=== PATIENT | male | born 1955 | race African-American/Black ===

== ENCOUNTER 2016-07-13 17:52 | Inpatient (IN) | payer OTHER ==
[2016-07-13 17:59] VITALS: BMI 29.7
[2016-07-13 18:47] LABS: BASOPHIL 0.6 % (0-2.0); EOSINOPHIL 1.2 % (0-4.5); MCH 25.6 pg (25.7-33.7); MCHC 31.6 g/dl (32.0-35.9); MEAN PLT VOLUME 7.9 fl (7.5-11.1); NEUTROPHILS 51.7 % (42.8-82.8); PLATELET COUNT 333 K/MM3 (134-434); RDW 14.9 % (11.9-15.9); WHITE BLOOD COUNT 10.2 K/mm3 (4.0-10.0)
[2016-07-13 19:00] LABS: INR 1.18 (0.82-1.09)
[2016-07-13 19:12] LABS: ALBUMIN 3.5 g/dl (3.4-5.0); ANION GAP 7 (8-16); CALCIUM 9.1 mg/dL (8.5-10.1); CO2 26 mmol/L (21-32); CREATININE 1.7 mg/dL (0.7-1.3); GLUCOSE,RANDOM 242 mg/dL (74-106); SGPT/ALT 25 U/L (12-78)
[2016-07-13 19:15] LABS: ALK PHOS 136 U/L (45-117); BILIRUBIN,TOTAL 0.4 mg/dL (0.2-1.0); TOT PROT 6.5 g/dl (6.4-8.2); TROPONIN I < 0.02 ng/ml (0.00-0.05)
[2016-07-13 19:16] LABS: SGOT/AST 21 U/L (15-37)
[2016-07-13] MEDS ORDERED: OXYCODONE/APAP 5/325MG COMBO TABLET PO ONE (19:29)
[2016-07-13] MEDS ORDERED: NITROGLYCERIN 2% OINTMENT - 1GM PACKET TD ONE ×2 (19:29→19:36)
--- NOTE | 2016-07-13 19:30 | PDOC ---
History of Present Illness - General Chief Complaint: Chest Pain Stated Complaint: CHEST PAIN/SOB Time Seen by Provider: 07/13/16 19:18 History Source: Patient, Significant Other Exam Limitations: No Limitations - History of Present Illness Initial Comments: 07/13/16 20:24 60yo Male patient with hx HTN, Asthma, COPD, DM, Chronic Nerve Damage, CA w/ stents x6 presents to ED c/o chest pain, chest pressure x 2 days. Patient states being SOB, increased weakness, malaise, with 8/10 combination nerve pain and chest pains. He denies fever, n/v/d, back pain, diff breathing, rash, or any other complaints at this time. 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 Elaine who instructed him to come to ED for evaluation. Patient reports taking Tramadol at home with no relief. Presenting Symptoms: Chest Pain, Short of Breath Timing/Duration: reports: getting worse Severity/Quality: reports: mild, pressure Location: reports: substernal, other (Neck Pain) Chest Pain Radiation: reports: no radiation Activities at Onset: reports: exertion Prior Chest Pain/Cardiac Workup: reports: Heart Attack, Other (Stents x 6) Modifying Factors: improves with: other (Dilaudid and Tramadol) Nitro Today/Relief: Yes: provided by ED Aspirin Received prior to arrival (Core Measure): Yes: unknown Past History - Past Medical History Allergies/Adverse Reactions: Allergies Allergy/AdvReac Type Severity Reaction Status Date / Time shellfish derived Allergy Severe Verified 07/13/16 17:59 Tetracyclines Allergy Severe Verified 07/13/16 17:59 Home Medications: Ambulatory Orders Acetaminophen [Tylenol] 650 mg PO DAILY 04/23/16 Albuterol 0.083% Nebulizer Elena [Ventolin 0.083% Nebulizer Soln -] 1 neb NEB QID 04/23/16 Arformoterol Tartrate [Brovana] 15 mcg IH BID 04/23/16 Aspirin [ASA -] 81 mg PO DAILY 04/23/16 Budesonide/Formeterol Fumarate [SYMBICORT 160/4.5mcg -] 1 inh PO BID 04/23/16 Clopidogrel Bisulfate [Plavix -] 75 mg PO DAILY 04/23/16 Diazepam [Valium] 5 mg PO DAILY 04/23/16 Docusate Sodium [Colace -] 100 mg PO DAILY 04/23/16 Finasteride 5 mg PO DAILY 04/23/16 Hydralazine HCl [Apresoline -] 25 mg PO BID 04/23/16 Hydromorphone HCl [Dilaudid] 2 mg PO QID 04/23/16 Isosorbide Mononitrate [Imdur -] 60 mg PO DAILY 04/23/16 Mesalamine [Asacol HD -] 800 mg PO TID 04/23/16 Montelukast Na [Singulair -] 10 mg PO HS 04/23/16 Ondansetron [Zuplenz] 4 mg PO QID 04/23/16 Pantoprazole Sodium [Protonix] 40 mg PO DAILY 04/23/16 Polyethylene Glycol 3350 [Miralax 119 gm Btl -] 17 gm PO BID 04/23/16 Ranitidine [Zantac -] 150 mg PO BID 04/23/16 Silver Sulfadiazine 1% Top Cr [Silvadene -] 1 applic TP DAILY 04/23/16 Sucralfate [Carafate] 10 ml PO QID 04/23/16 Tamsulosin HCl 0.4 mg PO DAILY 04/23/16 Tiotropium Cantril [Spiriva] 1 inh PO DAILY 04/23/16 Verapamil HCl [Verapamil ER] 180 mg PO DAILY 04/23/16 Gabapentin [Neurontin -] 200 mg PO TID capsule 04/25/16 Insulin (Levemir) [Levemir Vial] 10 units SQ AM ml 04/25/16 Insulin Sliding Scale [Novolog Vial Sliding Scale -] 1 vial SQ ACHS units 04/25 Hydromorphone HCl [Dilaudid] 4 mg PO QID PRN #20 tablet MDD 4 04/28/16 Lipase/Protease/Amylase [Stacy Hackett 6,000 Units Capsule] 1 cap PO TIDCM #30 capsule. 04/28/16 Methylnaltrexone Cantril [Relistor] 12 mg SQ DAILY #10 kit 04/28/16 Ondansetron HCl [Zofran] 4 mg PO TIDCM #30 tablet 04/28/16 Mesalamine [Pentasa] 250 mg PO DAILY 07/13/16 Anemia: No Asthma: Yes Cancer: No Cardiac Disorders: Yes (CA, stents x 6, CAD) CVA: No COPD: Yes (trach,) CHF: Yes Dementia: No Diabetes: Yes GI Disorders: Yes (H-Pylori, Diverticulosis, Colon Polyps) Disorders: No HTN: Yes Hypercholesterolemia: Yes Liver Disease: No Seizures: No Thyroid Disease: No - Surgical History Abdominal Surgery: No Appendectomy: No Cardiac Surgery: Yes (STENTS X6) Cholecystectomy: No Lung Surgery: No Neurologic Surgery: Yes (nerve damage from accident - CERVICAL SURGERY) Orthopedic Surgery: Yes (LUMBAR SURGERY, L HAND SOFT TISSUE REPAIR) - Immunization History Immunization Up to Date: Yes - Psycho/Social/Smoking Cessation Hx Anxiety: No Suicidal Ideation: No Smoking History: Never smoked Have you smoked in the past 12 months: No Number of Cigarettes Smoked Daily: 0 Information on smoking cessation initiated: No Hx Alcohol Use: No Drug/Substance Use Hx: No Substance Use Type: None Hx Substance Use Treatment: No Cardiac Specific PMH - Complaint Specific PMHX Angina: Yes Cardiac Arrhythmia: No Cardiac Stent: Yes GERD: No Myocardial Infarction: Yes Pacemaker: No Pulmonary Embolus: No Valvular Heart Disease: No Peripheral Vascular Disease: No Review of Systems - Review of Systems Able to Perform ROS?: Yes Is the patient limited [place] proficient: No Constitutional: No: Chills, Fever Respiratory: Yes: Shortness of Breath, Wheezing. No: Cough, Orthopnea Cardiac (ROS): Yes: Chest Pain, Chest Tightness ABD/GI: No: Diarrhea, Nausea, Vomiting : No: Burning, Dysuria Musculoskeletal: No: Back Pain Integumentary: No: Rash, Sweating Neurological: No: Headache, Numbness, Weakness Hematologic/Lymphatic: No: Easy Bleeding All Other Systems: Reviewed and Negative *Physical Exam - Vital Signs Last Vital Signs Temp Pulse Resp BP Pulse Ox 98.7 F 43 L 18 143/107 100 07/13/16 17:54 07/13/16 18:54 07/13/16 18:54 07/13/16 18:54 07/13/16 18:54 - Physical Exam General Appearance: Yes: Nourished, Appropriately Dressed Neck: positive: Trachea midline, Supple Respiratory/Chest: positive: Wheezing Cardiovascular: positive: Regular Rhythm, Bradycardia Gastrointestinal/Abdominal: positive: Normal Bowel Sounds, Soft Musculoskeletal: positive: Normal Inspection Extremity: positive: Normal Capillary Refill, Normal Inspection, Normal Range of Motion Integumentary: positive: Normal Color, Dry, Warm Neurologic: positive: yeast supervisor II-XII NML intact, Fully Oriented, Normal Mood/Affect , Normal Response ED Treatment Course - LABORATORY CBC & Chemistry Diagram: 07/13/16 18:26 07/13/16 18:20 - ADDITIONAL ORDERS Additional order review: Laboratory Results 07/13/16 07/13/16 07/13/16 18:26 18:20 18:20 INR 1.18 H Sodium 138 Potassium 4.5 Chloride 105 Carbon Dioxide 26 Anion Gap 7 L BUN 24 H D Creatinine 1.7 H D Creat Clearance w eGFR 41.04 Random Glucose 242 H D Calcium 9.1 Total Bilirubin 0.4 D AST 21 ALT 25 Alkaline Phosphatase 136 H D Creatine Kinase 324 H D Creatine Kinase Index 3.3 CK-MB (CK-2) 10.728 H CK-MB (CK-2) Rel Index Cancelled Troponin I < 0.02 B-Natriuretic Peptide 630.83 H Total Protein 6.5 D Albumin 3.5 D 07/13/16 18:26 RBC 3.91 L MCV 81.0 MCHC 31.6 L RDW 14.9 MPV 7.9 Neutrophils % 51.7 Lymphocytes % 31.9 Monocytes % 14.6 H Eosinophils % 1.2 Basophils % 0.6 - Medications Given in the ED: ED Medications Discontinued Medications Generic Name Dose Route Start Last Admin Trade Name Freq PRN Reason Stop Dose Admin Nitroglycerin 1 inch 07/13/16 19:29 07/13/16 19:41 Nitro-Bid 2% Paste - TD 07/13/16 19:30 1 inch ONCE ONE Administration Oxycodone/Acetaminophen 1 combo 07/13/16 19:29 07/13/16 19:41 Percocet 5/325 - PO 07/13/16 19:30 1 combo ONCE ONE Administration Progress Note - Progress Note Progress Note: Spoke with Dr. Rojas PCP who would like patient admitted to hospitalist service- Tele OB for COPD/Chest Pain. *DC/Admit/Observation/Transfer Diagnosis at time of Disposition: Chest pain made worse by breathing, Renal insufficiency, Chronic bronchitis with COPD (chronic obstructive pulmonary disease) - Discharge Dispostion Condition at time of disposition: Stable Admit: Yes
[2016-07-13] MEDS ORDERED: OXYCODONE/APAP 5/325MG COMBO TABLET ONE (19:36)
--- NOTE | 2016-07-13 20:19 | PDOC ---
*Physical Exam - Vital Signs Last Vital Signs Temp Pulse Resp BP Pulse Ox 98.7 F 43 L 18 143/107 100 07/13/16 17:54 07/13/16 18:54 07/13/16 18:54 07/13/16 18:54 07/13/16 18:54 ED Treatment Course - LABORATORY CBC & Chemistry Diagram: 07/14/16 07:10 07/14/16 07:10 - ADDITIONAL ORDERS Additional order review: Laboratory Results 07/13/16 07/13/16 18:26 18:20 INR 1.18 H Sodium 138 Potassium 4.5 Chloride 105 Carbon Dioxide 26 Anion Gap 7 L BUN 24 H D Creatinine 1.7 H D Creat Clearance w eGFR 41.04 Random Glucose 242 H D Calcium 9.1 Total Bilirubin 0.4 D AST 21 ALT 25 Alkaline Phosphatase 136 H D Creatine Kinase 324 H D Creatine Kinase Index 3.3 CK-MB (CK-2) 10.728 H Troponin I < 0.02 B-Natriuretic Peptide 630.83 H Total Protein 6.5 D Albumin 3.5 D 07/13/16 18:26 RBC 3.91 L MCV 81.0 MCHC 31.6 L RDW 14.9 MPV 7.9 Neutrophils % 51.7 Lymphocytes % 31.9 Monocytes % 14.6 H Eosinophils % 1.2 Basophils % 0.6 - Medications Given in the ED: ED Medications Discontinued Medications Generic Name Dose Route Start Last Admin Trade Name Freq PRN Reason Stop Dose Admin Nitroglycerin 1 inch 07/13/16 19:29 07/13/16 19:41 Nitro-Bid 2% Paste - TD 07/13/16 19:30 1 inch ONCE ONE Administration Oxycodone/Acetaminophen 1 combo 07/13/16 19:29 07/13/16 19:41 Percocet 5/325 - PO 07/13/16 19:30 1 combo ONCE ONE Administration Medical Decision Making - Medical Decision Making 07/13/16 20:19 agree with care from ALVA Sofia *DC/Admit/Observation/Transfer Diagnosis at time of Disposition: Chest pain made worse by breathing, Renal insufficiency, Chronic bronchitis with COPD (chronic obstructive pulmonary disease) - Discharge Dispostion Condition at time of disposition: Stable
[2016-07-13] MEDS ORDERED: ALBUTEROL SO4 2.5/IPRATROPIUM 0.5 INH SOL 3 ML VIAL.NEB. NEB ONE ×2 (20:37→21:02)
[2016-07-13] MEDS ORDERED: methylPREDNISolone NA SUCC 125 MG/2 ML VIAL IVPB ONE (20:38)
[2016-07-13] MEDS ORDERED: methylPREDNISolone NA SUCC 125 MG/2 ML VIAL ONE (21:01)
[2016-07-13] MEDS ORDERED: ASPIRIN 81 MG CHEWABLE TABLETS PO ONE (21:04)
[2016-07-13] MEDS ORDERED: ASPIRIN 81 MG CHEWABLE TABLETS ONE (21:09)
[2016-07-14] MEDS ORDERED: HYDROmorphone HCL CARPU-JECT 2 MG/1 ML DISP.SYRIN IVPUSH ONE (00:03)
[2016-07-14] MEDS ORDERED: ALBUTEROL SO4 0.083% IH SOL 2.5 MG/3 ML VIAL.NEB. NEB PRN (00:04)
[2016-07-14] MEDS: SODIUM CHLORIDE 1,000 ML IV SCH ×2 (00:21→23:15)
--- NOTE | 2016-07-14 00:25 | HP ---
CHIEF COMPLAINT: Chest pain/pressure and SOB PCP: Lisette HISTORY OF PRESENT ILLNESS: This is a 60 year old male with a past medical history of asthma, COPD, DM, HTN , HLD, [place] s/p sstent x6, CHF, diverticulosis, pancreatitis, cervical nerve damage who presents to the ED with a 2 day h/o chest pain and pressure which was helped by imdur (he states he takes it PRN) but then today felt a generalized weakness come over his entire body with difficulty walking around 12 -1pm which prompted him to come to the ED. Pt denies any abdominal complaints. Pt reports recent course of augmentin 875 for acute bronchitis. He also states that he increased his lasix to 80mg daily last week due to leg edema which has since resolved and has since resumed 40mg QD ER course was notable for: (1) BNP 630.83 (2) troponin elevated (3) BUN/Cr elevated (4) CP improved with NTG (5) HR 40s on monitor Recent Travel: pt denies PAST MEDICAL HISTORY: asthma COPD DM HTN HLD MN s/p sstent x6 CHF diverticulosis pancreatitis H. pylori colon polyps PAST SURGICAL HISTORY: cervical spine surgery due to 3 herniated discs s/p accidental injury (a ceiling fell on him) with resulting nerve injury and chronic pain lumbar sx L hand soft tissue repair Social History: Smoking: pt denies Alcohol: pt denies Drugs: pt denies Family History: mother age 59, CHF, DM, in her sleep father young, mesothelioma brother with prostate CA sister s/p breast CA Allergies shellfish derived Allergy (Severe, Verified 07/13/16 17:59) Tetracyclines Allergy (Severe, Verified 07/13/16 17:59) HOME MEDICATIONS: 3 Medication Instructions Recorded Albuterol 0.083% Nebulizer Elena 1 neb NEB QID 04/23/16 [Ventolin 0.083% Nebulizer Soln -] Arformoterol Tartrate [Brovana] 15 mcg IH BID 04/23/16 Aspirin [ASA -] 81 mg PO DAILY 04/23/16 Budesonide/Klclr963.83terol Fumarate 1 inh PO BID 04/23/16 [SYMBICORT 160/4.5mcg -] Clopidogrel Bisulfate [Plavix -] 75 mg PO DAILY 04/23/16 Diazepam [Valium] 5 mg PO DAILY 04/23/16 Docusate Sodium [Colace -] 100 mg PO DAILY 04/23/16 Finasteride 5 mg PO DAILY 04/23/16 Isosorbide Mononitrate [Imdur -] 60 mg PO DAILY 04/23/16 Montelukast Na [Singulair -] 10 mg PO HS 04/23/16 Ondansetron [Zuplenz] 4 mg PO QID 04/23/16 Pantoprazole Sodium [Protonix] 40 mg PO DAILY 04/23/16 Polyethylene Glycol 3350 [Miralax 17 gm PO BID 04/23/16 119 gm Btl -] Tamsulosin HCl 0.4 mg PO DAILY 04/23/16 Tiotropium Rough And Ready [Spiriva] 1 inh PO DAILY 04/23/16 Verapamil HCl [Verapamil ER] 120mg QAM, 300 mg QHS PO DAILY 04/23/16 Insulin-humalog pump 1 vial SQ ACHS units 04/25/16 Hydromorphone HCl [Dilaudid] 4 mg PO QID PRN #20 tablet MDD 4 04/28/16 Lipase/Protease/Amylase [Creon Dr 1 cap PO TIDCM #30 capsule.dr 04/28/16 6,000 Units Capsule] Ondansetron HCl [Zofran] 4 mg PO TIDCM #30 tablet 04/28/16 Mesalamine [Pentasa] 500 mg PO bid 07/13/16 crestor 10mg po HS lasix 40mg QD theophylline 300mg qd gabapentin 600mg BID nucynta er 150QD tramadol PRN REVIEW OF SYSTEMS CONSTITUTIONAL: Present: generalized weakness, malaise Absent: fever, chills, diaphoresis, loss of appetite, weight change HEENT: Absent: rhinorrhea, nasal congestion, throat pain, throat swelling, difficulty swallowing, mouth swelling, ear pain, eye pain, visual changes CARDIOVASCULAR: Absent: syncope, palpitations, irregular heart rate, lightheadedness, peripheral edema RESPIRATORY: Present: chest pain, shortness of breath, wheezing Absent: cough, dyspnea with exertion, orthopnea, stridor, hemoptysis GASTROINTESTINAL: Absent: abdominal pain, abdominal distension, nausea, vomiting, diarrhea, constipation, melena, hematochezia GENITOURINARY: Absent: dysuria, frequency, urgency, hesitancy, hematuria, flank pain, genital pain MUSCULOSKELETAL: Present: back pain, neck pain Absent: myalgia, arthralgia, joint swelling SKIN: Absent: rash, itching, pallor HEMATOLOGIC/IMMUNOLOGIC: Absent: easy bleeding, easy bruising, lymphadenopathy, frequent infections ENDOCRINE: Absent: unexplained weight gain, unexplained weight loss, heat intolerance, cold intolerance NEUROLOGIC: Absent: headache, focal weakness or paresthesias, dizziness, unsteady gait, seizure, mental status changes, bladder or bowel incontinence PSYCHIATRIC: Absent: anxiety, depression, suicidal or homicidal ideation, hallucinations. PHYSICAL EXAMINATION Vital Signs - 24 hr 3 07/13/16 07/13/16 07/13/16 17:54 18:54 21:57 Temperature 98.7 F Pulse Rate 46 L Pulse Rate [ 43 L 45 L Apical] Respiratory 18 18 18 Rate Blood Pressure 113/61 Blood Pressure 143/107 124/65 [Left Arm] O2 Sat by Pulse 100 100 100 Oximetry (%) GENERAL: Awake, alert, and fully oriented, in no acute distress. HEAD: Normal with no signs of trauma. EYES: Pupils equal, round and reactive to light, extraocular movements intact, sclera anicteric, conjunctiva clear. No lid lag. EARS, NOSE, THROAT: Ears normal, nares patent, oropharynx clear without exudates. Moist mucous membranes. NECK: Normal range of motion, supple without lymphadenopathy, JVD, or masses. LUNGS: Breath sounds equal, clear to auscultation bilaterally. No wheezes, and no crackles. No accessory muscle use. HEART: Regular rate and rhythm, normal S1 and S2 without murmur, rub or gallop. ABDOMEN: Soft, nontender, not distended, normoactive bowel sounds, no guarding, no rebound, no masses. No hepatomegaly or splenomegaly. MUSCULOSKELETAL: Normal range of motion at all joints. No bony deformities or tenderness. No CVA tenderness. UPPER EXTREMITIES: 2+ pulses, warm, well-perfused. No cyanosis. No clubbing. Cap refill <2 seconds. No peripheral edema. LOWER EXTREMITIES: 2+ pulses, warm, well-perfused. No calf tenderness. No peripheral edema. NEUROLOGICAL: Cranial nerves II-XII intact. Normal speech. Normal gait. PSYCHIATRIC: Cooperative. Good eye contact. Appropriate mood and affect. SKIN: Warm, dry, normal turgor, no rashes or lesions noted. Laboratory Results - last 24 hr 3 07/13/16 07/13/16 07/13/16 18:20 18:20 18:26 WBC 10.2 H D RBC 3.91 L Hgb 10.0 L Hct 31.7 L MCV 81.0 MCHC 31.6 L RDW 14.9 Plt Count 333 MPV 7.9 Neutrophils % 51.7 Lymphocytes % 31.9 Monocytes % 14.6 H Eosinophils % 1.2 Basophils % 0.6 INR 1.18 H Sodium 138 Potassium 4.5 Chloride 105 Carbon Dioxide 26 Anion Gap 7 L BUN 24 H D Creatinine 1.7 H D Creat Clearance w eGFR 41.04 Random Glucose 242 H D Calcium 9.1 Total Bilirubin 0.4 D AST 21 ALT 25 Alkaline Phosphatase 136 H D Creatine Kinase 324 H D Creatine Kinase Index 3.3 CK-MB (CK-2) 10.728 H CK-MB (CK-2) Rel Index Cancelled Troponin I < 0.02 B-Natriuretic Peptide 630.83 H Total Protein 6.5 D Albumin 3.5 D CXR: increased vascularization, congestion noted, hazy at B/L bases, official read pending. ECG: rate 44, QTC 516, junctional bradycardia ASSESSMENT/PLAN: 60yM with PMH asthma, COPD, DM, HTN, HLD, [place] s/p sstent x6, CHF, diverticulosis , pancreatitis, cervical nerve damage who presents to the ED with a 2 day h/o chest pain and pressure. He is being admitted for further evaluation of CHF and COPD exacerbations as well as LOVE. COPD exac - improved with nebs and solumedrol. Cont solumedrol 40mg TID, taper as tolerated - defer ABT at this time as WBC only 10.2 and no acute infiltrate noted and afebrile - cont home nebulizers/inhalers/theophylline, check level in AM chest pain/CHF exacerbation - troponin neg x1, trend x 2 more - defer diuresis at this time as i suspect pt is intravascularly depleted given elevated BUN/Cr - reassess in am, restart lasix if indicated - hold home ramipril due to kidney function for now - cont home imdur, pt states he is not on hydralazine - cardiology consult bradycardia - hold verapamil, if no improvement in HR, will need PPM LOVE - BUN and Cr significantly above baseline - trial of gentle IV hydration 50cc/hr x 1 liter - avoid nephrotoxic agents, hold ramipril DM - on insulin pump. OK to continue same for now. FSBS TIDAC/HS with bolus coverage as per home regimen. HTN - hold verapamil due to HR, monitor BP, start alternative agent if SBP<140 HLD - cont home crestor chronic pain - cont home nucynta and dilaudid with bowel regimen. Pt previously on relistor for opioid induced constipation but did not tolerate same. DVT PPX - heparin 5000u TID FEN - NS @50cc/hr - BUN/Cr elevated but lytes ok, repeat in am - diabetic/low sodium diet Dispo: pt currently requires inpatient care Visit type - Emergency Visit Emergency Visit: Yes ED Registration Date: 07/13/16 Care time: The patient presented to the Emergency Department on the above date and was hospitalized for further evaluation of their emergent condition. - New Patient This patient is new to me today: Yes Date on this admission: 07/14/16 - Critical Care Critical Care patient: No
[2016-07-14 00:54] LABS: TROPONIN I < 0.02 ng/ml (0.00-0.05)
[2016-07-14] MEDS ORDERED: SENNOSIDES/DOCUSATE COMBO (SENNA PLUS) TABLET (UD) PO PRN (01:23)
[2016-07-14] MEDS ORDERED: methylPREDNISolone NA SUCC 40 MG/1 ML VIAL ONE (02:15)
[2016-07-14] MEDS: methylPREDNISolone NA SUCC 40 MG/1 ML VIAL IVPB SCH ×2 (02:54→09:34)
[2016-07-14] MEDS ORDERED: HYDROmorphone HCL 2 MG TABLET ONE (02:58)
[2016-07-14] MEDS: HYDROmorphone HCL 2 MG TABLET PO PRN (03:00)
[2016-07-14] MEDS: HEPARIN NA (PORCINE) 5,000 UNITS/ML 1ML VIAL SQ SCH ×3 (06:03→21:53)
[2016-07-14 07:38] LABS: BASOPHIL 0.3 % (0-2.0); EOSINOPHIL 0.1 % (0-4.5); MCH 26.1 pg (25.7-33.7); MCHC 32.3 g/dl (32.0-35.9); MEAN CELL VOLUME 80.7 fl (80-96); NEUTROPHILS 81.5 % (42.8-82.8); PLATELET COUNT 327 K/MM3 (134-434); RDW 14.3 % (11.9-15.9); WHITE BLOOD COUNT 7.2 K/mm3 (4.0-10.0)
[2016-07-14] MEDS: INSULIN SLIDING SCALE (NOVOLOG) 1 VIAL SQ SCH ×4 (08:01→21:53)
[2016-07-14 08:08] LABS: ALBUMIN 3.6 g/dl (3.4-5.0); ANION GAP 14 (8-16); CO2 23 mmol/L (21-32); MAGNESIUM 2.4 mg/dL (1.8-2.4); PHOSPHOROUS 3.6 mg/dL (2.5-4.9); SGOT/AST 13 U/L (15-37); SGPT/ALT 24 U/L (12-78)
[2016-07-14 08:13] LABS: ALK PHOS 152 U/L (45-117); BILIRUBIN,TOTAL 0.5 mg/dL (0.2-1.0); CREATININE 1.9 mg/dL (0.7-1.3)
[2016-07-14 08:29] LABS: TROPONIN I < 0.02 ng/ml (0.00-0.05)
[2016-07-14 08:33] LABS: GLUCOSE,RANDOM 383 mg/dL (74-106)
--- NOTE | 2016-07-14 08:43 | CONSULT ---
Consult Consult Specialty:: Cardiology Referred by:: Hospitalist Reason for Consultation:: Chest pain - History of Present Illness Chief Complaint: Chest pain History of Present Illness: 60 year old man with a history of HTN, HLD, DM, CAD s/p TX followed by PCI with stents 2002 and again 2016, Chronic Diastolic HF, Pulmonary HTN, GRACIE, COPD/ Asthma s/p permanent tracheostomy, on chronic steroid therapy with multiple previous admissions for acute exacerbations of asthma and right sided CHF. Pt. was in [facility] but is back home now. He has been doing well but started again having chest pressure worse last night thus he came to the ER. Seen and examined in the ER in [facility]. He describes the pain as pressure like, substernal, non-radiating. Denies sob, LE edema, pnd, orthopnea. no lightheadedness, dizziness, syncope, or near syncope. He states he took his verapamil just before coming to the ER as well as his Imdur. 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 mild CHF in the past.), HTN, TX, Pulmonary Hypertension Pulmonary: Yes: Asthma, Sleep Apnea Gastrointestinal: Yes: Constipation, Other (FECAL INCONTINENCE SECONDARY TO OVERFLOW followed by Dr. Abdoulaye Wu, IPMN, PANCREATITIS . HAD EPISODE OF ISCHEMIC COLITIS LAST ADMISSION) Renal/: Yes: BPH Psych: Yes: Depression Musculoskeletal: Yes: Chronic low back pain, Other (CHRONIC NECK PAIN) Endocrine: Yes: Diabetes Mellitus - Past Surgical History Past Surgical History: Yes: Breast Biopsy, Colonoscopy, Laminectomy - Alcohol/Substance Use Hx Alcohol Use: No History of Substance Use: reports: Prescription (opiates for chronic pain post cervical spine surgery. 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 History of Recent Travel: No Home Medications - Allergies Allergies/Adverse Reactions: Allergies Allergy/AdvReac Type Severity Reaction Status Date / Time shellfish derived Allergy Severe Verified 07/13/16 17:59 Tetracyclines Allergy Severe Verified 07/13/16 17:59 - Home Medications Home Medications: Ambulatory Orders Acetaminophen [Tylenol] 650 mg PO DAILY 04/23/16 Albuterol 0.083% Nebulizer Elena [Ventolin 0.083% Nebulizer Soln -] 1 neb NEB QID 04/23/16 Arformoterol Tartrate [Brovana] 15 mcg IH BID 04/23/16 Aspirin [ASA -] 81 mg PO DAILY 04/23/16 Budesonide/Formeterol Fumarate [SYMBICORT 160/4.5mcg -] 1 inh PO BID 04/23/16 Clopidogrel Bisulfate [Plavix -] 75 mg PO DAILY 04/23/16 Diazepam [Valium] 5 mg PO DAILY 04/23/16 Docusate Sodium [Colace -] 100 mg PO DAILY 04/23/16 Finasteride 5 mg PO DAILY 04/23/16 Hydralazine HCl [Apresoline -] 25 mg PO BID 04/23/16 Hydromorphone HCl [Dilaudid] 2 mg PO QID 04/23/16 Isosorbide Mononitrate [Imdur -] 60 mg PO DAILY 04/23/16 Mesalamine [Asacol HD -] 800 mg PO TID 04/23/16 Montelukast Na [Singulair -] 10 mg PO HS 04/23/16 Ondansetron [Zuplenz] 4 mg PO QID 04/23/16 Pantoprazole Sodium [Protonix] 40 mg PO DAILY 04/23/16 Polyethylene Glycol 3350 [Miralax 119 gm Btl -] 17 gm PO BID 04/23/16 Ranitidine [Zantac -] 150 mg PO BID 04/23/16 Silver Sulfadiazine 1% Top Cr [Silvadene -] 1 applic TP DAILY 04/23/16 Sucralfate [Carafate] 10 ml PO QID 04/23/16 Tamsulosin HCl 0.4 mg PO DAILY 04/23/16 Tiotropium [place] [Spiriva] 1 inh PO DAILY 04/23/16 Verapamil HCl [Verapamil ER] 180 mg PO DAILY 04/23/16 Gabapentin [Neurontin -] 200 mg PO TID capsule 04/25/16 Insulin (Levemir) [Levemir Vial] 10 units SQ AM ml 04/25/16 Insulin Sliding Scale [Novolog Vial Sliding Scale -] 1 vial SQ ACHS units 04/25 Hydromorphone HCl [Dilaudid] 4 mg PO QID PRN #20 tablet MDD 4 04/28/16 Lipase/Protease/Amylase [Stacy Hackett 6,000 Units Capsule] 1 cap PO TIDCM #30 capsule. 04/28/16 Methylnaltrexone [place] [Relistor] 12 mg SQ DAILY #10 kit 04/28/16 Ondansetron HCl [Zofran] 4 mg PO TIDCM #30 tablet 04/28/16 Mesalamine [Pentasa] 250 mg PO DAILY 07/13/16 Family Disease History - Family Disease History Family Disease History: Diabetes: Mother, CA: Father (mesothelioma), Respiratory : Brother (bronchial asthma) Review of Systems - Review of Systems Constitutional: denies: No Symptoms, Chills, Diaphoresis, Fever, Lethargy, Loss of Appetite, Malaise, Night Sweats, Unintentional Wgt. Loss, Weakness, Other Eyes: denies: No Symptoms, Blind Spots, Blurred Vision, Double Vision, Eye Pain , Floaters, Photophobia, Recent Change in Vision, Other HENT: denies: No Symptoms, Difficult Swallowing, Ear Discharge, Ear Pain, Epistaxis, Gingival Bleeding, Hearing Loss, Mouth Swelling, Nasal Congestion, Ocular Prosthesis, Throat Pain, Toothache, Ringing in Ears, Other Neck: denies: No Symptoms, Decreased ROM, Lumps, Pain on Movement, Stiffness, Swollen Glands, Tenderness, Other Cardiovascular: reports: Chest Pain, Shortness of Breath. denies: No Symptoms, Edema, Palpitations, Other Respiratory: reports: SOB. denies: No Symptoms, Cough, Exercise Intolerance, Hemoptysis, Orthopnea, PND, Snoring, SOB on Exertion, Wheezing, Other Gastrointestinal: denies: No Symptoms, Abdominal Pain, Bloating, Constipation, Diarrhea, Dysphagia, Indigestion, Melena, Nausea, Rectal Bleeding, Vomiting, Vomiting Blood, Other Genitourinary: denies: No Symptoms, Burning, Discharge, Dysuria, Flank Pain, Frequency, Hematuria, Incontinence, Lesions, Menses, Pain, Testicular Mass, Testicular Pain, Testicular Swelling, Urgency, Vaginal Bleeding, Other Breasts: denies: No Symptoms Reported, See HPI, Breast Implants, Discharge from Nipple, Lumps, Pain, Skin Changes, Other Musculoskeletal: reports: Back Pain, Extremity Pain, Joint Pain, Muscle Weakness. denies: No Symptoms, Crepitus, Decreased ROM, Joint Swelling, Muscle Pain, Muscle Cramps, Other Integumentary: denies: No Symptoms, Blister, Bruising, Change in Color, Eczema, Erythema, Incision, Lesions, Lump, Pallor, Pruritis, Rash, Wound, Other Endocrine: denies: No Symptoms, Excessive Sweating, Flushing, Increased Hunger, Increased Thirst, Intolerance to Cold, Intolerance to Heat, Unexplained Weight Gain, Unexplained Weight Loss, Other Hematology/Lymphatic: denies: No Symptoms, Easily Bruised, Excessive Bleeding, Swollen Glands, Other Psychiatric: denies: No Symptoms, Altered Sleep Pattern, Anxiety, Depression, Hallucinations, Panic, Paranoia, Suicidal, Other - Risk Factors Known Risk Factors: Yes: Diabetes Mellitus, Hypercholesterolemia, Hypertension, Prior TX /Emb Stroke Vital Signs: Vital Signs Temperature 98.7 F 07/13/16 17:54 Pulse Rate 83 07/14/16 08:31 Respiratory Rate 18 07/14/16 08:31 Blood Pressure 128/78 07/14/16 08:31 O2 Sat by Pulse Oximetry (%) 99 07/14/16 08:31 Constitutional: Yes: Well Nourished, No Distress, Calm Eyes: Yes: WNL, Conjunctiva Clear, EOM Intact, PERRL HENT: Yes: WNL, Atraumatic, Normocephalic Neck: Yes: WNL, Supple, Trachea Midline Respiratory: Yes: WNL, Regular, CTA Bilaterally. No: Rales, Rhonchi, Wheezes Gastrointestinal: Yes: WNL, Normal Bowel Sounds, Soft. No: Distention, Tenderness Renal/: Yes: WNL Cardiovascular: Yes: Regular Rate and Rhythm. No: Bradycardia, Tachycardia, Pulse Irregular, Gallop, Rub, Varicosities JVD: No Carotid Bruit: No PMI: Non-Displaced Heart Sounds: Yes: S1, S2. No: Split S2, S3, S4, Clicks, Gallop, Rub, Bruit Murmur: No: Systolic Murmur, Diastolic Murmur Musculoskeletal: Yes: WNL Extremities: Yes: WNL Edema: No Peripheral Pulses WNL: Yes Peripheral Pulses: 2+ Left Doralis Pedis, 2+ Right Dorsalis Pedis Integumentary: Yes: WNL Neurological: Yes: WNL, Alert, Oriented, Cran Nerves II-XII Intact ...Motor Strength: WNL Psychiatric: Yes: WNL, Alert, Oriented - Other Data Labs, Other Data: CBC, BMP 07/14/16 07:10 07/14/16 07:10 INR, PTT INR 1.18 (0.82-1.09) H 07/13/16 18:26 Troponin, BNP 07/14/16 07/14/16 00:15 07:10 Troponin I < 0.02 < 0.02 Troponin, BNP 07/14/16 07/14/16 00:15 07:10 Troponin I < 0.02 < 0.02 ekg-nsr, no sig ST abnl Echo: Report Reviewed Prior Cardiac Procedures: Cardiac Catheterization, PTCA with Stent Imaging - Results Chest X-ray: Report Reviewed, Image Reviewed EKG: Report Reviewed, Image Reviewed Other: Report Reviewed, Image Reviewed Problem List - Problems (1) ASHD (arteriosclerotic heart disease) Code(s): I25.10 - ATHSCL HEART DISEASE OF [place] CORONARY ARTERY W/O ANG PCTRS (2) Acute on chronic diastolic (congestive) heart failure Code(s): I50.33 - ACUTE ON CHRONIC DIASTOLIC (CONGESTIVE) HEART FAILURE (3) GRACIE (obstructive sleep apnea) Code(s): G47.33 - OBSTRUCTIVE SLEEP APNEA (ADULT) (PEDIATRIC) (4) Pulmonary hypertension Code(s): I27.2 - OTHER SECONDARY PULMONARY HYPERTENSION (5) Renal insufficiency Code(s): N28.9 - DISORDER OF KIDNEY AND URETER, UNSPECIFIED Assessment/Plan 60 year old man with a history of HTN, HLD, DM, CAD s/p TX followed by PCI with stents 2002 and again 2015, Chronic Diastolic HF, Pulmonary HTN, GRACIE, COPD/ Asthma s/p permanent tracheostomy, on chronic steroid therapy with multiple previous admissions for acute exacerbations of asthma and right sided CHF. Pt. was in [facility] but is back home now. He has been doing well but started again having chest pressure worse last night thus he came to the ER. Seen and examined in the ER in [facility]. He describes the pain as pressure like, substernal, non-radiating. Denies sob, LE edema, pnd, orthopnea. no lightheadedness, dizziness, syncope, or near syncope. He states he took his verapamil just before coming to the ER as well as his Imdur. Chest pain-with known h/o CAD and multiple prior stents including this past year -cardiac enzymes wnl thus far -no ischemia on ekg -no arrhythmias overnight on tele -need to follow up most recent work up done with Dr. Elaine -cont home medical regimen for now -ok to dc tele Bradycardia -likely sinus bradycardia after taking his home verapamil just prior to coming to the ER -no events on tele overnight -plan for outpatient holter monitor Chronic diastolic CHF- -currently euvolemic -cont home medical regimen HTN-adequately controlled -cont home medical regimen
[2016-07-14] MEDS: ONDANSETRON 4 MG TABLET PO SCH ×3 (09:03→17:24)
[2016-07-14] MEDS: TAMSULOSIN HCL 0.4 MG CAP.ER.24H (FP) PO SCH (09:03)
[2016-07-14] MEDS: LIPASE/PROTEASE/AMYLASE 6,000 UNIT CAPSULE PO SCH ×3 (09:03→17:24)
[2016-07-14] MEDS: ARFORMOTEROL TARTRATE 15 MCG/2 ML VIAL NEB SCH ×2 (09:34→22:41)
[2016-07-14] MEDS: ASPIRIN 81 MG CHEWABLE TABLETS PO SCH (09:34)
[2016-07-14] MEDS: FINASTERIDE 5 MG TABLET (FP) PO SCH (09:34)
[2016-07-14] MEDS: ISOSORBIDE MONONITRATE 60 MG TAB.SR.24H (FP) PO SCH (09:34)
[2016-07-14] MEDS: CLOPIDOGREL BISULFATE 75 MG TABLET (FP) PO SCH (09:34)
[2016-07-14] MEDS: GABAPENTIN 300 MG CAPSULE (FP) PO SCH ×2 (09:34→21:52)
[2016-07-14] MEDS: PANTOPRAZOLE 40 MG TABLET (FP) PO SCH (09:34)
[2016-07-14] MEDS: POLYETHYLENE GLYCOL 3350 119 GM BTL PO SCH ×2 (09:46→21:59)
--- NOTE | 2016-07-14 09:50 | EKG ---
Test Reason : Blood Pressure : / mmHG Vent. Rate : 044 BPM Atrial Rate : 045 BPM P-R Int : 000 ms QRS Dur : 094 ms QT Int : 604 ms P-R-T Axes : 000 047 052 degrees QTc Int : 516 ms JUNCTIONAL BRADYCARDIA PROLONGED QT ABNORMAL ECG WHEN COMPARED WITH ECG OF 23-APR-2016 17:56, JUNCTIONAL RHYTHM HAS REPLACED SINUS RHYTHM VENT. RATE HAS DECREASED BY 44 BPM Confirmed by VICTOR HUGO SPARKS MD ([id number]) on 07/14/2016 9:50:22 AM Referred By: Overread By: VICTOR HUGO SPARKS MD
--- NOTE | 2016-07-14 09:56 | EKG ---
Test Reason : Blood Pressure : / mmHG Vent. Rate : 066 BPM Atrial Rate : 066 BPM P-R Int : 180 ms QRS Dur : 094 ms QT Int : 446 ms P-R-T Axes : 013 014 047 degrees QTc Int : 467 ms NORMAL SINUS RHYTHM NORMAL ECG WHEN COMPARED WITH ECG OF 13-JUL-2016 17:56, SINUS RHYTHM HAS REPLACED JUNCTIONAL RHYTHM VENT. RATE HAS INCREASED BY 22 BPM Confirmed by VICTOR HUGO SPARKS MD ([id number]) on 07/14/2016 9:55:35 AM Referred By: Overread By: VICTOR HUGO SPARKS MD
[2016-07-14] MEDS ORDERED: VERAPAMIL HCL 120 MG E.R. TABLET PO SCH (10:00)
[2016-07-14] MEDS ORDERED: DOCUSATE SODIUM 100 MG CAPSULE (FP) PO SCH (10:00)
[2016-07-14] MEDS ORDERED: MESALAMINE 800 MG TABLET.DR PO SCH (10:00)
[2016-07-14] MEDS ORDERED: TAPENTADOL HCL 150 MG PO SCH (10:00)
[2016-07-14] MEDS: BUDESONIDE/FORMETEROL FUMARATE 160/4.5 mcg INHALER IH SCH ×2 (10:28→22:37)
[2016-07-14] MEDS: THEOPHYLLINE ANHYDROUS 100 MG CAP.ER.24H PO SCH (10:29)
[2016-07-14] MEDS: ACLIDINIUM BROMIDE 400 MCG/INH AERO.POWD IH SCH ×2 (10:29→22:37)
[2016-07-14] MEDS: TAPENTADOL HCL 50 MG TAB.ER.12H PO SCH (10:29)
[2016-07-14] MEDS: diazePAM 5 MG TABLET PO PRN (11:35)
[2016-07-14] MEDS ORDERED: diazePAM 5 MG TABLET ONE (11:41)
[2016-07-14] MEDS ORDERED: PT OWN MED DRAWER 7, Y5N ONE ×2 (13:48→17:23)
--- NOTE | 2016-07-14 13:50 | CONSULT ---
Consult Consult Specialty:: Pulmonary Reason for Consultation:: Bronchial Asthma - History of Present Illness Chief Complaint: weakness and chest pressure History of Present Illness: 60 year old male with ASHD-H/O M.I. and stents-developed chest pressure and weakness. He had recently taken Verapamil and Imdur. No palpitations or syncope. He came to the ER where he was found to be bradycardic and was admitted. Recently his obstructive airway disease has been stable and he has been off Prednisone for several months. PMH: Chronic Pancreatitis-in hospital in 04/2015-followed by Dr. Wu Bronchial asthma-steroid dependent. Obstructive Sleep Apnea- stable on trach that he keeps open during sleep. Tracheostomy-done about 30 years ago to tx [facility]. Pt had a trach. 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 Gustafson) Obesity S/P Extensive Spinal Surgery several years ago-pt recently completed in-pt rehab. Opioid dependence- pt maintained on large doses of analgesics because of severe pain related to his spinal surgery. Pt's pain medications are prescribed by his orthopedists: Drs. 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 mild CHF in the past.), HTN, HI, Pulmonary Hypertension Pulmonary: Yes: Asthma, Sleep Apnea Gastrointestinal: Yes: Constipation, Other (FECAL INCONTINENCE SECONDARY TO OVERFLOW followed by Dr. Abdoulaye Wu, IPMN, PANCREATITIS . HAD EPISODE OF ISCHEMIC COLITIS LAST ADMISSION) Renal/: Yes: BPH Psych: Yes: Depression Musculoskeletal: Yes: Chronic low back pain, Other (CHRONIC NECK PAIN) Endocrine: Yes: Diabetes Mellitus - Past Surgical History Past Surgical History: Yes: Breast Biopsy, Colonoscopy, Laminectomy - Alcohol/Substance Use Hx Alcohol Use: No History of Substance Use: reports: Prescription (opiates for chronic pain post cervical spine surgery. 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 History of Recent Travel: No Home Medications - Allergies Allergies/Adverse Reactions: Allergies Allergy/AdvReac Type Severity Reaction Status Date / Time shellfish derived Allergy Severe Verified 07/13/16 17:59 Tetracyclines Allergy Severe Verified 07/13/16 17:59 - Home Medications Home Medications: Ambulatory Orders Acetaminophen [Tylenol] 650 mg PO DAILY 04/23/16 Albuterol 0.083% Nebulizer Elena [Ventolin 0.083% Nebulizer Soln -] 1 neb NEB QID 04/23/16 Arformoterol Tartrate [Brovana] 15 mcg IH BID 04/23/16 Aspirin [ASA -] 81 mg PO DAILY 04/23/16 Budesonide/Formeterol Fumarate [SYMBICORT 160/4.5mcg -] 1 inh PO BID 04/23/16 Clopidogrel Bisulfate [Plavix -] 75 mg PO DAILY 04/23/16 Diazepam [Valium] 5 mg PO DAILY 04/23/16 Docusate Sodium [Colace -] 100 mg PO DAILY 04/23/16 Finasteride 5 mg PO DAILY 04/23/16 Hydralazine HCl [Apresoline -] 25 mg PO BID 04/23/16 Hydromorphone HCl [Dilaudid] 2 mg PO QID 04/23/16 Isosorbide Mononitrate [Imdur -] 60 mg PO DAILY 04/23/16 Mesalamine [Asacol HD -] 800 mg PO TID 04/23/16 Montelukast Na [Singulair -] 10 mg PO HS 04/23/16 Ondansetron [Zuplenz] 4 mg PO QID 04/23/16 Pantoprazole Sodium [Protonix] 40 mg PO DAILY 04/23/16 Polyethylene Glycol 3350 [Miralax 119 gm Btl -] 17 gm PO BID 04/23/16 Ranitidine [Zantac -] 150 mg PO BID 04/23/16 Silver Sulfadiazine 1% Top Cr [Silvadene -] 1 applic TP DAILY 04/23/16 Sucralfate [Carafate] 10 ml PO QID 04/23/16 Tamsulosin HCl 0.4 mg PO DAILY 04/23/16 Tiotropium [place] [Spiriva] 1 inh PO DAILY 04/23/16 Verapamil HCl [Verapamil ER] 180 mg PO DAILY 04/23/16 Gabapentin [Neurontin -] 200 mg PO TID capsule 04/25/16 Insulin (Levemir) [Levemir Vial] 10 units SQ AM ml 04/25/16 Insulin Sliding Scale [Novolog Vial Sliding Scale -] 1 vial SQ ACHS units 04/25 Hydromorphone HCl [Dilaudid] 4 mg PO QID PRN #20 tablet MDD 4 04/28/16 Lipase/Protease/Amylase [Stacy Hackett 6,000 Units Capsule] 1 cap PO TIDCM #30 capsule. 04/28/16 Methylnaltrexone [place] [Relistor] 12 mg SQ DAILY #10 kit 04/28/16 Ondansetron HCl [Zofran] 4 mg PO TIDCM #30 tablet 04/28/16 Mesalamine [Pentasa] 250 mg PO DAILY 07/13/16 Family Disease History - Family Disease History Family Disease History: Diabetes: Mother, CA: Father (mesothelioma), Respiratory : Brother (bronchial asthma) Review of Systems - Review of Systems Constitutional: denies: Chills, Diaphoresis, Fever Eyes: denies: Blurred Vision Cardiovascular: denies: Edema, Palpitations, Shortness of Breath Respiratory: denies: Cough, Hemoptysis, Wheezing Gastrointestinal: denies: Abdominal Pain, Rectal Bleeding, Vomiting, Vomiting Blood Physical Exam Vital Sings: Vital Signs Temperature 97.6 F 07/14/16 12:41 Pulse Rate 100 H 07/14/16 12:41 Respiratory Rate 18 07/14/16 12:41 Blood Pressure 153/84 07/14/16 12:41 O2 Sat by Pulse Oximetry (%) 100 07/14/16 11:37 Constitutional: Yes: No Distress Eyes: No: Sclera Icterus HENT: Yes: Atraumatic, Normocephalic Neck: Yes: Trachea Midline Cardiovascular: Yes: Regular Rate and Rhythm Respiratory: Yes: CTA Bilaterally ...Percussion: No: Dullnes, Hyperresonance ...Clubbing: No Gastrointestinal: Yes: Soft. No: Hepatomegaly, Splenomegaly, Tenderness Extremities: No: Calf Tenderness Edema: No Neurological: Yes: Alert, Oriented, Weakness (walks woth walker) Labs: CBC, BMP 07/14/16 07:10 07/14/16 07:10 Imaging - Results Chest X-ray: Report Reviewed, Image Reviewed (JENNIFER) Problem List - Problems (1) ASHD (arteriosclerotic heart disease) Code(s): I25.10 - ATHSCL HEART DISEASE OF [place] CORONARY ARTERY W/O ANG PCTRS (2) GRACIE (obstructive sleep apnea) Code(s): G47.33 - OBSTRUCTIVE SLEEP APNEA (ADULT) (PEDIATRIC) (3) Tracheostomy in place Code(s): Z98.89 - OTHER SPECIFIED POSTPROCEDURAL STATES * DO NOT USE * (4) COPD (chronic obstructive pulmonary disease) Code(s): J44.9 - CHRONIC OBSTRUCTIVE PULMONARY DISEASE, UNSPECIFIED (5) Diabetes mellitus Code(s): E11.9 - TYPE 2 DIABETES MELLITUS WITHOUT COMPLICATIONS Qualifiers: Diabetes mellitus type: type 2 Diabetes mellitus complication detail: with unspecified neuropathy (6) Chronic pain with drug dependence Code(s): G89.29 - OTHER CHRONIC PAIN F19.20 - OTHER PSYCHOACTIVE SUBSTANCE DEPENDENCE, UNCOMPLICATED (7) Status post spinal surgery Code(s): Z98.89 - OTHER SPECIFIED POSTPROCEDURAL STATES * DO NOT USE * (8) Chronic pancreatitis Code(s): K86.1 - OTHER CHRONIC PANCREATITIS Assessment/Plan 60 year old male with known ASHD admitted with chest pressure and weakness. M.I r/o'd out. Weakness and bradycardia may be due to medication (Verapamil and Imdur). Obstructive Airway: stable. I would dc systemic steroids and continue his maintenance respiratory meds. DM-on insulin pump Chronic Pancreatitis-stable at present. GRACIE-sleeps with trach open Opioid dependence-continue his current analgesic outpt treatment Suggest: Holtor monitor Adjustment of cardiac meds per cardiology Inhaled bronchodilators and inhaled steroids Keep tracheostomy open at night Insulin pump and insulin PRN Thank you for referring this patient for consultation.
[2016-07-14] MEDS ORDERED: HYDROmorphone HCL CARPU-JECT 2 MG/1 ML DISP.SYRIN IVPB ONE (13:53)
--- NOTE | 2016-07-14 15:47 | CONSULT ---
Consult - text type - Consultation Consultation Note: Renal Consult for LOVE This is a 60 year old Gentleman with PMhx of CHF (RHF/Diastolic Dyfunction), Hypertension, COPD, DM, CAD s/p [place]/Stents, Cerival Nerve Damage who presented with 2 day history of chest pressure and found to have LOVE with BUN/Cr of 30/ 1.9 with baseline Cr of 0.8 -1.1. Pt denies any history of CKD. No Hx of kidney stones. No recent NSAID use. No contrast exposure. Recently increased Lasix to 80mg daily for a few days for management fo LE edema. Pt also noted to have bradycardia on presentation. No flank pain, hematuria, dark urine. Pt was on Ramipril at home. PMhx: As above Allergies: NDKA Family hx: [place] Social hx: NO T/A/D ROS: As per HPI, all other pertinent ros negative Home Meds: Medication Instructions Recorded Acetaminophen [Tylenol] 650 mg PO DAILY 04/23/16 Albuterol 0.083% Nebulizer [place] 1 neb NEB QID 04/23/16 [Ventolin 0.083% Nebulizer Soln -] Arformoterol Tartrate [Brovana] 15 mcg IH BID 04/23/16 Aspirin [ASA -] 81 mg PO DAILY 04/23/16 Budesonide/Formeterol Fumarate 1 inh PO BID 04/23/16 [SYMBICORT 160/4.5mcg -] Clopidogrel Bisulfate [Plavix -] 75 mg PO DAILY 04/23/16 Diazepam [Valium] 5 mg PO DAILY 04/23/16 Docusate Sodium [Colace -] 100 mg PO DAILY 04/23/16 Finasteride 5 mg PO DAILY 04/23/16 Hydralazine HCl [Apresoline -] 25 mg PO BID 04/23/16 Hydromorphone HCl [Dilaudid] 2 mg PO QID 04/23/16 Isosorbide Mononitrate [Imdur -] 60 mg PO DAILY 04/23/16 Mesalamine [Asacol HD -] 800 mg PO TID 04/23/16 Montelukast Na [Singulair -] 10 mg PO HS 04/23/16 Ondansetron [Zuplenz] 4 mg PO QID 04/23/16 Pantoprazole Sodium [Protonix] 40 mg PO DAILY 04/23/16 Polyethylene Glycol 3350 [Miralax 17 gm PO BID 04/23/16 119 gm Btl -] Ranitidine [Zantac -] 150 mg PO BID 04/23/16 Silver Sulfadiazine 1% Top Cr 1 applic TP DAILY 04/23/16 [Silvadene -] Sucralfate [Carafate] 10 ml PO QID 04/23/16 Tamsulosin HCl 0.4 mg PO DAILY 04/23/16 Tiotropium [place] [Spiriva] 1 inh PO DAILY 04/23/16 Verapamil HCl [Verapamil ER] 180 mg PO DAILY 04/23/16 Gabapentin [Neurontin -] 200 mg PO TID capsule 04/25/16 Insulin (Levemir) [Levemir Vial] 10 units SQ AM ml 04/25/16 Insulin Sliding Scale [Novolog 1 vial SQ ACHS units 04/25/16 Vial Sliding Scale -] Hydromorphone HCl [Dilaudid] 4 mg PO QID PRN #20 tablet MDD 4 04/28/16 Lipase/Protease/Amylase [Stacy Hackett 1 cap PO TIDCM #30 capsule. 04/28/16 6,000 Units Capsule] Methylnaltrexone [place] [Relistor] 12 mg SQ DAILY #10 kit 04/28/16 Ondansetron HCl [Zofran] 4 mg PO TIDCM #30 tablet 04/28/16 Mesalamine [Pentasa] 250 mg PO DAILY 07/13/16 Vital Signs Temperature 98.4 F 07/14/16 14:42 Pulse Rate 98 H 07/14/16 14:42 Respiratory Rate 18 07/14/16 12:41 Blood Pressure 153/84 07/14/16 12:41 O2 Sat by Pulse Oximetry (%) 100 07/14/16 11:37 Intake & Output 07/11/16 07/12/16 07/13/16 07/14/16 23:59 23:59 23:59 23:59 Intake Total 400 Balance 400 Weight 225 lb 225 lb Gen: Awake and Alert, NAD CVS: RRR, No M/R Lungs: CTA, no rales or wheeze Abd: soft NT/ND Ext: 1+ LE edema, no cyanosis or clubbing : No bladder distension Neuro: No focal defects CBC, BMP 07/14/16 07:10 07/14/16 07:10 Current Medications Aclidinium [place] (Tudorza -) 1 puff IH BID [facility] Last Admin: 07/14/16 10:29 Dose: 1 puff Albuterol Sulfate (Ventolin 0.083% Nebulizer Soln -) 1 amp NEB Q6H PRN PRN Reason: WHEEZING Arformoterol Tartrate (Brovana (Restricted To Pulmonology/Resp) -) 1 amp NEB BID [facility] Last Admin: 07/14/16 09:34 Dose: 1 amp Aspirin (Asa -) 81 mg PO DAILY [facility] Last Admin: 07/14/16 09:34 Dose: 81 mg Budesonide/Formoterol Fumarate (Symbicort 160/4.5mcg -) 1 puff IH BID [facility] Last Admin: 07/14/16 10:28 Dose: 1 puff Clopidogrel Bisulfate (Plavix -) 75 mg PO DAILY [facility] Last Admin: 07/14/16 09:34 Dose: 75 mg Diazepam (Valium -) 5 mg PO DAILY PRN PRN Reason: ANXIETY Last Admin: 07/14/16 11:35 Dose: 5 mg Finasteride (Proscar -) 5 mg PO DAILY [facility] Last Admin: 07/14/16 09:34 Dose: 5 mg Gabapentin (Neurontin -) 600 mg PO BID [facility] Last Admin: 07/14/16 09:34 Dose: 600 mg Heparin Sodium (Porcine) (Heparin -) 5,000 unit SQ TID [facility] Last Admin: 07/14/16 14:35 Dose: 5,000 unit Hydromorphone HCl (Dilaudid -) 4 mg PO Q6H PRN PRN Reason: BACK PAIN Last Admin: 07/14/16 03:00 Dose: 4 mg Sodium Chloride (Normal Saline -) 1,000 mls @ 50 mls/hr IV ASDIR [facility] Stop: 07/14/16 23:15 Last Admin: 07/14/16 00:21 Dose: 50 mls/hr Insulin Aspart (Novolog Vial Sliding Scale -) 1 vial SQ ACHS [facility] PRN Reason: Protocol Last Admin: 07/14/16 12:35 Dose: Not Given Isosorbide Mononitrate (Imdur -) 60 mg PO DAILY [facility] Last Admin: 07/14/16 09:34 Dose: 60 mg Mesalamine (Asacol Hd -) 500 mg PO BID [facility] Montelukast Sodium (Singulair -) 10 mg PO HS [facility] Ondansetron HCl (Zofran -) 4 mg PO TIDCM [facility] Last Admin: 07/14/16 13:36 Dose: 4 mg Pancrelipase (Creon Dr 6,000 Units Capsule) 1 cap PO TIDCM [facility] Last Admin: 07/14/16 13:42 Dose: 1 cap Pantoprazole Sodium (Protonix -) 40 mg PO DAILY [facility] Last Admin: 07/14/16 09:34 Dose: 40 mg Polyethylene Glycol (Miralax (For Daily Use) -) 17 gm PO BID [facility] Last Admin: 07/14/16 09:46 Dose: Not Given Rosuvastatin Calcium (Crestor -) 10 mg PO HS [facility] Senna/Docusate Sodium (Pericolace -) 2 tablet PO HS PRN PRN Reason: CONSTIPATION Tamsulosin HCl (Flomax -) 0.4 mg PO DAILY@0830 [facility] Last Admin: 07/14/16 09:03 Dose: 0.4 mg Tapentadol (Nucynta Er -) 150 mg PO DAILY [facility] Last Admin: 07/14/16 10:29 Dose: 150 mg Theophylline (Jeroem-24) 300 mg PO DAILY [facility] Last Admin: 07/14/16 10:29 Dose: 300 mg A/P 60 year old Gentleman with PMhx of CHF (RHF/Diastolic Dyfunction), Hypertension , COPD, DM, CAD s/p [place]/Stents, Cerival Nerve Damage who presented with 2 day history of chest pressure and found to have LOVE with BUN/Cr of 30/1.9 with baseline Cr of 0.8 -1.1. #Acute Kidney Injury Likely etiology is renal hypoperfusion resulting in pre-renal injury/ATN in setting of decreased cardiac output (bradycardia) and concurrent ACEi/Diuretics Check UA, UPCR, FeNA, FeUrea Agree with holding ACEi and Diuretics Continue Gentle IVF with careful monitoring of resp status No indication for LEAD TECHNICAL ARCHITECT at this time if any significant proteinuria or hematuria noted on UA may need serolologic work up No acute indication for LEAD TECHNICAL ARCHITECT Dose all meds for Cr Cl less then 30 #Chest pressure Cardiology following Off aCEi/Diurteics no evidence of acute decompensation CHF #BPH Continue Flomax #Chronic Pain Pain control with opiods Thank you Will continue to follow Az Nelson DO
[2016-07-14 18:18] LABS: URINE APPEARANCE CLEAR; URINE BILIRUBIN NEGATIVE (NEGATIVE); URINE BLOOD NEGATIVE (NEGATIVE); URINE COLOR LTYELLOW; URINE GLUCOSE (UA) 3+ (NEGATIVE); URINE KETONE NEGATIVE (NEGATIVE); URINE LEUK ESTERASE NEGATIVE (NEGATIVE); URINE NITRITE NEGATIVE (NEGATIVE); URINE UROBILINOGEN NEGATIVE E.U./dl (0.2-1.0)
[2016-07-14 18:19] LABS: URINE PROTEIN 1+ (NEGATIVE)
[2016-07-14 18:20] LABS: URINE HYALINE CAST 1 /lpf; URINE RBC <1 /hpf (0-3); URINE WBC 1 /hpf (3-5)
--- NOTE | 2016-07-14 18:26 | CONSULT ---
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 mild CHF in the past.), HTN, [place], Pulmonary Hypertension Pulmonary: Yes: Asthma, Sleep Apnea Gastrointestinal: Yes: Constipation, Other (FECAL INCONTINENCE SECONDARY TO OVERFLOW followed by Dr. Abdoulaye Wu, IPMN, PANCREATITIS . HAD EPISODE OF ISCHEMIC COLITIS LAST ADMISSION) Renal/: Yes: BPH Psych: Yes: Depression Musculoskeletal: Yes: Chronic low back pain, Other (CHRONIC NECK PAIN s/p Lumbar and Cervical fusion ) Endocrine: Yes: Diabetes Mellitus - Past Surgical History Past Surgical History: Yes: Breast Biopsy, Colonoscopy, Laminectomy Additional Surgical History: Tracheostomy - Alcohol/Substance Use Hx Alcohol Use: No History of Substance Use: reports: Prescription (opiates for chronic pain post cervical spine surgery. 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 History of Recent Travel: No Home Medications - Allergies Allergies/Adverse Reactions: Allergies Allergy/AdvReac Type Severity Reaction Status Date / Time shellfish derived Allergy Severe Verified 07/13/16 17:59 Tetracyclines Allergy Severe Verified 07/13/16 17:59 - Home Medications Home Medications: Ambulatory Orders Acetaminophen [Tylenol] 650 mg PO DAILY 04/23/16 Albuterol 0.083% Nebulizer Elena [Ventolin 0.083% Nebulizer Soln -] 1 neb NEB QID 04/23/16 Arformoterol Tartrate [Brovana] 15 mcg IH BID 04/23/16 Aspirin [ASA -] 81 mg PO DAILY 04/23/16 Budesonide/Formeterol Fumarate [SYMBICORT 160/4.5mcg -] 1 inh PO BID 04/23/16 Clopidogrel Bisulfate [Plavix -] 75 mg PO DAILY 04/23/16 Diazepam [Valium] 5 mg PO DAILY 04/23/16 Docusate Sodium [Colace -] 100 mg PO DAILY 04/23/16 Finasteride 5 mg PO DAILY 04/23/16 Hydralazine HCl [Apresoline -] 25 mg PO BID 04/23/16 Hydromorphone HCl [Dilaudid] 2 mg PO QID 04/23/16 Isosorbide Mononitrate [Imdur -] 60 mg PO DAILY 04/23/16 Mesalamine [Asacol HD -] 800 mg PO TID 04/23/16 Montelukast Na [Singulair -] 10 mg PO HS 04/23/16 Ondansetron [Zuplenz] 4 mg PO QID 04/23/16 Pantoprazole Sodium [Protonix] 40 mg PO DAILY 04/23/16 Polyethylene Glycol 3350 [Miralax 119 gm Btl -] 17 gm PO BID 04/23/16 Ranitidine [Zantac -] 150 mg PO BID 04/23/16 Silver Sulfadiazine 1% Top Cr [Silvadene -] 1 applic TP DAILY 04/23/16 Sucralfate [Carafate] 10 ml PO QID 04/23/16 Tamsulosin HCl 0.4 mg PO DAILY 04/23/16 Tiotropium [place] [Spiriva] 1 inh PO DAILY 04/23/16 Verapamil HCl [Verapamil ER] 180 mg PO DAILY 04/23/16 Gabapentin [Neurontin -] 200 mg PO TID capsule 04/25/16 Insulin (Levemir) [Levemir Vial] 10 units SQ AM ml 04/25/16 Insulin Sliding Scale [Novolog Vial Sliding Scale -] 1 vial SQ ACHS units 04/25 Hydromorphone HCl [Dilaudid] 4 mg PO QID PRN #20 tablet MDD 4 04/28/16 Lipase/Protease/Amylase [Stacy Hackett 6,000 Units Capsule] 1 cap PO TIDCM #30 capsule. 04/28/16 Methylnaltrexone [place] [Relistor] 12 mg SQ DAILY #10 kit 04/28/16 Ondansetron HCl [Zofran] 4 mg PO TIDCM #30 tablet 04/28/16 Mesalamine [Pentasa] 250 mg PO DAILY 07/13/16 Family Disease History - Family Disease History Family Disease History: Diabetes: Mother, [place]: Father (mesothelioma), Respiratory : Brother (bronchial asthma) Review of Systems - Review of Systems Constitutional: reports: No Symptoms Eyes: reports: No Symptoms HENT: reports: No Symptoms Neck: reports: Decreased ROM, Pain on Movement, Stiffness Respiratory: reports: Other (Tracheostomy) Gastrointestinal: reports: No Symptoms Genitourinary: reports: No Symptoms Musculoskeletal: reports: Back Pain, Decreased ROM, Joint Pain Neurological: reports: Numbness, Parasthesia Endocrine: reports: No Symptoms Hematology/Lymphatic: reports: No Symptoms Psychiatric: reports: No Symptoms Pain Intensity: 7 Physical Exam Vital Signs: Vital Signs Temperature 98.4 F 07/14/16 14:42 Pulse Rate 98 H 07/14/16 14:42 Respiratory Rate 18 07/14/16 12:41 Blood Pressure 153/84 07/14/16 12:41 O2 Sat by Pulse Oximetry (%) 98 07/14/16 17:00 Constitutional: Yes: Well Nourished, Calm Eyes: Yes: WNL HENT: Yes: WNL Neck: Yes: Decreased ROM, Other (scar +) Respiratory: Yes: WNL Gastrointestinal: Yes: WNL Musculoskeletal: Yes: Back Pain, Joint Stiffness, Muscle Pain Extremities: Yes: WNL Wound/Incision: Yes: Other Neurological: Yes: Alert, Oriented Labs: CBC, BMP 07/14/16 07:10 07/14/16 07:10 Problem List - Problems (1) Chronic pain following surgery or procedure Code(s): G89.28 - OTHER CHRONIC POSTPROCEDURAL PAIN (2) Cervical vertebral fusion Code(s): M43.22 - FUSION OF SPINE, CERVICAL REGION (3) Fusion of lumbar spine Code(s): M43.26 - FUSION OF SPINE, LUMBAR REGION Assessment/Plan Discussed in detail . His was present. 1. Continue current medication. Discussed about opioid rotation and weaning off which he refused. He is taking Dilaudid for last several years. He always gave h/o taking Dilaudid PO at home and IV in hospital. He is getting IV Dilaudid q6 PRN to be continued for 2 days and then switched to oral. I advised him to have PO Dilaudid which he refused. This patient is difficult to manage. I would like to request for Psych and Neuro consult for further management. Thanks Dr. Omari Boles [phone] .
[2016-07-14 18:32] LABS: SODIUM,RANDOM URINE 21 MMOL/L
[2016-07-14 18:42] LABS: CHLORIDE,RANDOM URINE < 10 MMOL/L
[2016-07-14 18:43] LABS: URINE CREATININE 82.4 mg/dL
[2016-07-14] MEDS: HYDROmorphone HCL CARPU-JECT 2 MG/1 ML DISP.SYRIN IVPUSH PRN (20:21)
[2016-07-14] MEDS: MONTELUKAST NA 10 MG TABLET PO SCH (21:52)
[2016-07-14] MEDS: ROSUVASTATIN CA 10 MG TABLET (FP) PO SCH (21:52)
[2016-07-14] MEDS ORDERED: VERAPAMIL HCL PO SCH (22:00)
[2016-07-14] MEDS ORDERED: VERAPAMIL HCL 240 MG E.R. TABLET (FP) PO SCH (22:00)
[2016-07-15] MEDS: HYDROmorphone HCL CARPU-JECT 2 MG/1 ML DISP.SYRIN IVPUSH PRN ×3 (02:15→16:04)
[2016-07-15] MEDS: HEPARIN NA (PORCINE) 5,000 UNITS/ML 1ML VIAL SQ SCH ×4 (05:59→21:23)
[2016-07-15] MEDS: INSULIN SLIDING SCALE (NOVOLOG) 1 VIAL SQ SCH ×3 (06:01→17:50)
[2016-07-15 07:14] LABS: MCH 25.8 pg (25.7-33.7); MEAN CELL VOLUME 80.7 fl (80-96); MEAN PLT VOLUME 7.9 fl (7.5-11.1); NEUTROPHILS 79.1 % (42.8-82.8); PLATELET COUNT 334 K/MM3 (134-434); RDW 14.6 % (11.9-15.9); WHITE BLOOD COUNT 13.3 K/mm3 (4.0-10.0)
[2016-07-15 07:41] LABS: ALBUMIN 3.4 g/dl (3.4-5.0); MAGNESIUM 2.6 mg/dL (1.8-2.4); PHOSPHOROUS 3.2 mg/dL (2.5-4.9)
[2016-07-15 07:43] LABS: BILIRUBIN,TOTAL 0.4 mg/dL (0.2-1.0); CREATININE 1.4 mg/dL (0.7-1.3); TOT PROT 6.3 g/dl (6.4-8.2)
[2016-07-15] MEDS ORDERED: PT OWN MED DRAWER 7, Y5N ONE ×4 (08:56→21:13)
[2016-07-15] MEDS: ONDANSETRON 4 MG TABLET PO SCH ×3 (09:00→17:51)
[2016-07-15] MEDS: LIPASE/PROTEASE/AMYLASE 6,000 UNIT CAPSULE PO SCH ×3 (09:01→17:51)
[2016-07-15] MEDS: TAMSULOSIN HCL 0.4 MG CAP.ER.24H (FP) PO SCH (09:09)
[2016-07-15] MEDS: ISOSORBIDE MONONITRATE 60 MG TAB.SR.24H (FP) PO SCH (09:10)
[2016-07-15] MEDS: ASPIRIN 81 MG CHEWABLE TABLETS PO SCH (09:10)
[2016-07-15] MEDS: PANTOPRAZOLE 40 MG TABLET (FP) PO SCH (09:10)
[2016-07-15] MEDS: FINASTERIDE 5 MG TABLET (FP) PO SCH (09:10)
[2016-07-15] MEDS: GABAPENTIN 300 MG CAPSULE (FP) PO SCH ×3 (09:10→21:24)
[2016-07-15] MEDS: CLOPIDOGREL BISULFATE 75 MG TABLET (FP) PO SCH (09:10)
[2016-07-15] MEDS: ACLIDINIUM BROMIDE 400 MCG/INH AERO.POWD IH SCH ×2 (09:11→21:24)
[2016-07-15] MEDS: POLYETHYLENE GLYCOL 3350 119 GM BTL PO SCH ×2 (09:11→21:23)
[2016-07-15] MEDS: BUDESONIDE/FORMETEROL FUMARATE 160/4.5 mcg INHALER IH SCH ×3 (09:11→21:24)
--- NOTE | 2016-07-15 09:38 | PN ---
Progress Note, Physician Chief Complaint: feels better No further chest pain Holter in progress Spoke to Dr. Elaine, no recent stress test since last year History of Present Illness: TNI negative - Current Medication List Current Medications: Active Medications Aclidinium [place] (Tudorza -) 1 puff IH BID [facility] Last Admin: 07/15/16 09:11 Dose: 1 puff Albuterol Sulfate (Ventolin 0.083% Nebulizer Soln -) 1 amp NEB Q6H PRN PRN Reason: WHEEZING Arformoterol Tartrate (Brovana (Restricted To Pulmonology/Resp) -) 1 amp NEB BID [facility] Last Admin: 07/14/16 22:41 Dose: 1 amp Aspirin (Asa -) 81 mg PO DAILY [facility] Last Admin: 07/15/16 09:10 Dose: 81 mg Budesonide/Formoterol Fumarate (Symbicort 160/4.5mcg -) 1 puff IH BID [facility] Last Admin: 07/15/16 09:11 Dose: 1 puff Clopidogrel Bisulfate (Plavix -) 75 mg PO DAILY [facility] Last Admin: 07/15/16 09:10 Dose: 75 mg Diazepam (Valium -) 5 mg PO DAILY PRN PRN Reason: ANXIETY Last Admin: 07/14/16 11:35 Dose: 5 mg Finasteride (Proscar -) 5 mg PO DAILY [facility] Last Admin: 07/15/16 09:10 Dose: 5 mg Gabapentin (Neurontin -) 600 mg PO BID [facility] Last Admin: 07/15/16 09:10 Dose: 600 mg Heparin Sodium (Porcine) (Heparin -) 5,000 unit SQ TID [facility] Last Admin: 07/15/16 05:59 Dose: 5,000 unit Hydromorphone HCl (Dilaudid -) 4 mg PO Q6H PRN PRN Reason: BACK PAIN Last Admin: 07/14/16 03:00 Dose: 4 mg Hydromorphone HCl (Dilaudid Injection -) 2 mg IVPUSH Q6H PRN Stop: 07/15/16 23:59 Last Admin: 07/15/16 09:01 Dose: 2 mg Insulin Aspart (Novolog Vial Sliding Scale -) 1 vial SQ ACHS [facility] PRN Reason: Protocol Last Admin: 07/15/16 06:01 Dose: 20 units Isosorbide Mononitrate (Imdur -) 60 mg PO DAILY [facility] Last Admin: 07/15/16 09:10 Dose: 60 mg Mesalamine (Asacol Hd -) 500 mg PO BID [facility] Montelukast Sodium (Singulair -) 10 mg PO HS [facility] Last Admin: 07/14/16 21:52 Dose: 10 mg Ondansetron HCl (Zofran -) 4 mg PO TIDCM [facility] Last Admin: 07/15/16 09:00 Dose: 4 mg Pancrelipase (Creon Dr 6,000 Units Capsule) 1 cap PO TIDCM [facility] Last Admin: 07/15/16 09:01 Dose: 1 cap Pantoprazole Sodium (Protonix -) 40 mg PO DAILY [facility] Last Admin: 07/15/16 09:10 Dose: 40 mg Polyethylene Glycol (Miralax (For Daily Use) -) 17 gm PO BID [facility] Last Admin: 07/15/16 09:11 Dose: Not Given Rosuvastatin Calcium (Crestor -) 10 mg PO HS [facility] Last Admin: 07/14/16 21:52 Dose: 10 mg Senna/Docusate Sodium (Pericolace -) 2 tablet PO PRN PRN Reason: CONSTIPATION Tamsulosin HCl (Flomax -) 0.4 mg PO DAILY@0830 [facility] Last Admin: 07/15/16 09:09 Dose: 0.4 mg Tapentadol (Nucynta Er -) 150 mg PO DAILY [facility] Last Admin: 07/14/16 10:29 Dose: 150 mg Theophylline ([place]-24) 300 mg PO DAILY [facility] Last Admin: 07/14/16 10:29 Dose: 300 mg - Objective Vital Signs: Vital Signs Temperature 97.4 F L 07/15/16 09:20 Pulse Rate 90 07/15/16 09:20 Respiratory Rate 20 07/15/16 09:20 Blood Pressure 168/89 07/15/16 09:20 O2 Sat by Pulse Oximetry (%) 98 07/14/16 20:00 Constitutional: Yes: No Distress Eyes: Yes: Conjunctiva Clear Cardiovascular: Yes: Regular Rate and Rhythm Respiratory: Yes: CTA Bilaterally Gastrointestinal: Yes: Soft Edema: No Neurological: Yes: Alert Labs: CBC, BMP 07/15/16 06:00 07/15/16 06:00 INR, PTT INR 1.18 (0.82-1.09) H 07/13/16 18:26 Laboratory Tests 07/13/16 07/14/16 07/14/16 18:20 00:15 07:10 WBC Hgb Plt Count Sodium Potassium Creatinine Troponin I < 0.02 < 0.02 < 0.02 07/15/16 07/15/16 06:00 06:00 WBC 13.3 H D Hgb 10.0 L Plt Count 334 Sodium 134 L Potassium 4.4 Creatinine 1.4 H D Troponin I Assessment/Plan Assessment/Plan 60 year old man with a history of HTN, HLD, DM, CAD s/p [place] followed by PCI with stents 2002 and again 2016, Chronic Diastolic HF, Pulmonary HTN, GRACIE, COPD/ Asthma s/p permanent tracheostomy, on chronic steroid therapy with multiple previous admissions for acute exacerbations of asthma and right sided CHF. Pt. was in [facility] but is back home now. He has been doing well but started again having chest pressure and came to the ER. Chest pain-with known h/o CAD and multiple prior stents including this past year -cardiac enzymes wnl thus far -no ischemia on ekg -no arrhythmias overnight on tele -Holter in progress -For Dobutamine MIBI in AM - Bradycardia -likely sinus bradycardia after taking his home verapamil just prior to coming to the ER -no events on tele -holter in progress Chronic diastolic CHF- -currently euvolemic -cont home medical regimen HTN-adequately controlled -cont home medical regimen
[2016-07-15] MEDS: ARFORMOTEROL TARTRATE 15 MCG/2 ML VIAL NEB SCH ×2 (09:45→23:35)
--- NOTE | 2016-07-15 10:12 | CONSULT ---
Consult Consult Specialty:: neurology Reason for Consultation:: Hx of chronic back pain with muliple back procedures. - History of Present Illness History of Present Illness: In 2005 the patient sustained a severe head and neck injury when a ceiling collapsed and fell on him. He is under the care of a neurologist (Dr Singh), spine surgeon and paint process engineer. He is concern is that the generalized weakness associated with the current medical illness may cause him to regress with his physical rehab. He is very concerned that his pain management medication was not continued at the usual dose prescribed by his treating paint process engineer. 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 Planned EMG/ NCVs studies and evaluation of motor weakness in process by treating neurologist Dr. Singh) Cardio/Vascular: Yes: CAD, CHF (s/p [place] several years ago; s/p stenting. mild CHF in the past.), HTN, [place], Pulmonary Hypertension Pulmonary: Yes: Asthma, Sleep Apnea Gastrointestinal: Yes: Constipation, Other (FECAL INCONTINENCE SECONDARY TO OVERFLOW followed by Dr. Abdoulaye Wu, IPMN, PANCREATITIS . HAD EPISODE OF ISCHEMIC COLITIS LAST ADMISSION) Renal/: Yes: BPH Psych: Yes: Depression Musculoskeletal: Yes: Chronic low back pain, Other (CHRONIC NECK PAIN s/p Lumbar and Cervical fusion ) Endocrine: Yes: Diabetes Mellitus - Past Surgical History Past Surgical History: Yes: Breast Biopsy, Colonoscopy, Laminectomy Additional Surgical History: Tracheostomy - Alcohol/Substance Use Hx Alcohol Use: No History of Substance Use: reports: Prescription (opiates for chronic pain post cervical spine surgery. 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 History of Recent Travel: No Home Medications - Allergies Allergies/Adverse Reactions: Allergies Allergy/AdvReac Type Severity Reaction Status Date / Time shellfish derived Allergy Severe Verified 07/13/16 17:59 Tetracyclines Allergy Severe Verified 07/13/16 17:59 - Home Medications Home Medications: Ambulatory Orders Acetaminophen [Tylenol] 650 mg PO DAILY 04/23/16 Albuterol 0.083% Nebulizer [place] [Ventolin 0.083% Nebulizer Soln -] 1 neb NEB QID 04/23/16 Arformoterol Tartrate [Brovana] 15 mcg IH BID 04/23/16 Aspirin [ASA -] 81 mg PO DAILY 04/23/16 Budesonide/Formeterol Fumarate [SYMBICORT 160/4.5mcg -] 1 inh PO BID 04/23/16 Clopidogrel Bisulfate [Plavix -] 75 mg PO DAILY 04/23/16 Diazepam [Valium] 5 mg PO DAILY 04/23/16 Docusate Sodium [Colace -] 100 mg PO DAILY 04/23/16 Finasteride 5 mg PO DAILY 04/23/16 Hydralazine HCl [Apresoline -] 25 mg PO BID 04/23/16 Hydromorphone HCl [Dilaudid] 2 mg PO QID 04/23/16 Isosorbide Mononitrate [Imdur -] 60 mg PO DAILY 04/23/16 Mesalamine [Asacol HD -] 800 mg PO TID 04/23/16 Montelukast Na [Singulair -] 10 mg PO HS 04/23/16 Ondansetron [Zuplenz] 4 mg PO QID 04/23/16 Pantoprazole Sodium [Protonix] 40 mg PO DAILY 04/23/16 Polyethylene Glycol 3350 [Miralax 119 gm Btl -] 17 gm PO BID 04/23/16 Ranitidine [Zantac -] 150 mg PO BID 04/23/16 Silver Sulfadiazine 1% Top Cr [Silvadene -] 1 applic TP DAILY 04/23/16 Sucralfate [Carafate] 10 ml PO QID 04/23/16 Tamsulosin HCl 0.4 mg PO DAILY 04/23/16 Tiotropium [place] [Spiriva] 1 inh PO DAILY 04/23/16 Verapamil HCl [Verapamil ER] 180 mg PO DAILY 04/23/16 Gabapentin [Neurontin -] 200 mg PO TID capsule 04/25/16 Insulin (Levemir) [Levemir Vial] 10 units SQ AM ml 04/25/16 Insulin Sliding Scale [Novolog Vial Sliding Scale -] 1 vial SQ ACHS units 04/25 Hydromorphone HCl [Dilaudid] 4 mg PO QID PRN #20 tablet MDD 4 04/28/16 Lipase/Protease/Amylase [Stacy Hackett 6,000 Units Capsule] 1 cap PO TIDCM #30 capsule. 04/28/16 Methylnaltrexone [place] [Relistor] 12 mg SQ DAILY #10 kit 04/28/16 Ondansetron HCl [Zofran] 4 mg PO TIDCM #30 tablet 04/28/16 Mesalamine [Pentasa] 250 mg PO DAILY 07/13/16 Family Disease History - Family Disease History Family Disease History: Diabetes: Mother, CA: Father (mesothelioma), Respiratory : Brother (bronchial asthma) Physical Exam Vital Signs: Vital Signs Temperature 97.4 F L 07/15/16 09:20 Pulse Rate 80 07/15/16 10:09 Respiratory Rate 20 07/15/16 09:20 Blood Pressure 168/89 07/15/16 09:20 O2 Sat by Pulse Oximetry (%) 98 07/15/16 10:09 Constitutional: Yes: Well Nourished, Calm Eyes: Yes: WNL, EOM Intact, PERRL. No: Ptosis HENT: Yes: Atraumatic Neck: Yes: Supple Cardiovascular: Yes: Regular Rate and Rhythm Respiratory: Yes: Regular Gastrointestinal: Yes: Soft Neurological: Yes: WNL, Alert, Oriented, Babinski negative, Cran Nerves II-XII Intact, Weakness (individual muscle group testing was not performed, however -4/ 5 weakness noted in UE and LE with foot droop bilaterally and absent DTR's). No : Dysarthria Labs: CBC, BMP 07/15/16 06:00 07/15/16 06:00 Assessment/Plan chronic pain syndrome with mulit-level spine disease managed by PM and his spine surgeon. Planned EMG/NCVs studies and evaluation of motor weakness in process by treating neurologist Dr. Singh in process. Suggest pain management continued as ordered by his primary pain management physician with no indication for repeat evaluation of documented chronic spine disease that was previously done and/or is in process with current treating physicians.
[2016-07-15] MEDS: TAPENTADOL HCL 50 MG TAB.ER.12H PO SCH (10:31)
[2016-07-15] MEDS: THEOPHYLLINE ANHYDROUS 100 MG CAP.ER.24H PO SCH (10:31)
--- NOTE | 2016-07-15 10:32 | CONSULT ---
Psychiatry Consult Chief Complaint: I dont nered your services. I need pain medications. - Previous Psychiatric Treatment Outpatient: None Inpatient: None - Previous Substance Abuse Treatment Outpatient: None Inpatient: None - Family History Family History: Unremarkable - Current Medications Current Medications: Active Medications Aclidinium [place] (Tudorza -) 1 puff IH BID [facility] Last Admin: 07/15/16 09:11 Dose: 1 puff Albuterol Sulfate (Ventolin 0.083% Nebulizer Soln -) 1 amp NEB Q6H PRN PRN Reason: WHEEZING Arformoterol Tartrate (Brovana (Restricted To Pulmonology/Resp) -) 1 amp NEB BID [facility] Last Admin: 07/15/16 09:45 Dose: 1 amp Aspirin (Asa -) 81 mg PO DAILY [facility] Last Admin: 07/15/16 09:10 Dose: 81 mg Budesonide/Formoterol Fumarate (Symbicort 160/4.5mcg -) 1 puff IH BID [facility] Last Admin: 07/15/16 09:11 Dose: 1 puff Clopidogrel Bisulfate (Plavix -) 75 mg PO DAILY [facility] Last Admin: 07/15/16 09:10 Dose: 75 mg Diazepam (Valium -) 5 mg PO DAILY PRN PRN Reason: ANXIETY Last Admin: 07/14/16 11:35 Dose: 5 mg Finasteride (Proscar -) 5 mg PO DAILY [facility] Last Admin: 07/15/16 09:10 Dose: 5 mg Gabapentin (Neurontin -) 600 mg PO BID [facility] Last Admin: 07/15/16 09:10 Dose: 600 mg Heparin Sodium (Porcine) (Heparin -) 5,000 unit SQ TID [facility] Last Admin: 07/15/16 05:59 Dose: 5,000 unit Hydromorphone HCl (Dilaudid -) 4 mg PO Q6H PRN PRN Reason: BACK PAIN Last Admin: 07/14/16 03:00 Dose: 4 mg Hydromorphone HCl (Dilaudid Injection -) 2 mg IVPUSH Q6H PRN Stop: 07/15/16 23:59 Last Admin: 07/15/16 09:01 Dose: 2 mg Insulin Aspart (Novolog Vial Sliding Scale -) 1 vial SQ ACHS [facility] PRN Reason: Protocol Last Admin: 07/15/16 06:01 Dose: 20 units Isosorbide Mononitrate (Imdur -) 60 mg PO DAILY [facility] Last Admin: 07/15/16 09:10 Dose: 60 mg Mesalamine (Asacol Hd -) 800 mg PO TID [facility] Montelukast Sodium (Singulair -) 10 mg PO HS [facility] Last Admin: 07/14/16 21:52 Dose: 10 mg Ondansetron HCl (Zofran -) 4 mg PO TIDCM [facility] Last Admin: 07/15/16 09:00 Dose: 4 mg Pancrelipase (Creon Dr 6,000 Units Capsule) 1 cap PO TIDCM [facility] Last Admin: 07/15/16 09:01 Dose: 1 cap Pantoprazole Sodium (Protonix -) 40 mg PO DAILY [facility] Last Admin: 07/15/16 09:10 Dose: 40 mg Polyethylene Glycol (Miralax (For Daily Use) -) 17 gm PO BID [facility] Last Admin: 07/15/16 09:11 Dose: Not Given Rosuvastatin Calcium (Crestor -) 10 mg PO HS [facility] Last Admin: 07/14/16 21:52 Dose: 10 mg Senna/Docusate Sodium (Pericolace -) 2 tablet PO PRN PRN Reason: CONSTIPATION Tamsulosin HCl (Flomax -) 0.4 mg PO DAILY@0830 [facility] Last Admin: 07/15/16 09:09 Dose: 0.4 mg Tapentadol (Nucynta Er -) 150 mg PO DAILY [facility] Last Admin: 07/14/16 10:29 Dose: 150 mg Theophylline (Jerome-24) 300 mg PO DAILY [facility] Last Admin: 07/14/16 10:29 Dose: 300 mg - Allergies Allergies: Allergies Allergy/AdvReac Type Severity Reaction Status Date / Time shellfish derived Allergy Severe Verified 07/13/16 17:59 Tetracyclines Allergy Severe Verified 07/13/16 17:59 - Current Living Status Usual Living Arrangement: Alone - Current Mental Status Evaluation Appearance: Well Groomed Attitude: Cooperative - Affect Affect: Full Range Appropriateness: Appropriate to Content - Mood Mood: Euthymic - Speech/Language Expressive: Coherent - Psychomotor Activity Psychomotor Activity: Normal - Thought Process Thought Process: Intact - Thought Content Hallucinations: Absent Delusions: Absent - Self Perception Self Perception: No Impairment - Cognition Attention: Alert Orientation: Time Memory, Immediate Recall: Intact Memory, Remote: Intact - Concentration Serial Sevens Intact: Yes Simple Calculations Intact: Yes - Abstraction Proverb Interpretation: Intact Judgement: Intact - Insight Insight: Intact - Impulse Control Impulse Control: Minimally Impaired - Suicidal Ideation Suicidal Ideation: No - Homicidal Ideation Homicidal Ideation: No Assessment/Plan Patient does not have any acute Psych Illness at this time. No need for psych meds.
--- NOTE | 2016-07-15 11:37 | PN ---
Progress Note (short form) - Note Progress Note: Renal Follow up for LOVE Pt seen and examined at the bedside No acute complaints no sob, chest pain on IVF Vital Signs Temperature 97.4 F L 07/15/16 09:20 Pulse Rate 80 07/15/16 10:09 Respiratory Rate 20 07/15/16 09:20 Blood Pressure 168/89 07/15/16 09:20 O2 Sat by Pulse Oximetry (%) 98 07/15/16 10:09 Intake & Output 07/12/16 07/13/16 07/14/16 07/15/16 23:59 23:59 23:59 23:59 Intake Total 800 Balance 800 Weight 225 lb 225 lb Gen: Awake and Alert, NAD CVS: RRR, No M/R Lungs: CTA, no rales or wheeze Abd: soft NT/ND Ext: 1+ LE edema, no cyanosis or clubbing CBC, BMP 07/15/16 06:00 07/15/16 06:00 Laboratory Tests 07/15/16 06:00 Calcium 9.0 Phosphorus 3.2 Magnesium 2.6 H Albumin 3.4 Current Medications Aclidinium [place] (Tudorza -) 1 puff IH BID [facility] Last Admin: 07/15/16 09:11 Dose: 1 puff Albuterol Sulfate (Ventolin 0.083% Nebulizer Soln -) 1 amp NEB Q6H PRN PRN Reason: WHEEZING Arformoterol Tartrate (Brovana (Restricted To Pulmonology/Resp) -) 1 amp NEB BID [facility] Last Admin: 07/15/16 09:45 Dose: 1 amp Aspirin (Asa -) 81 mg PO DAILY [facility] Last Admin: 07/15/16 09:10 Dose: 81 mg Budesonide/Formoterol Fumarate (Symbicort 160/4.5mcg -) 1 puff IH BID [facility] Last Admin: 07/15/16 09:11 Dose: 1 puff Clopidogrel Bisulfate (Plavix -) 75 mg PO DAILY [facility] Last Admin: 07/15/16 09:10 Dose: 75 mg Diazepam (Valium -) 5 mg PO DAILY PRN PRN Reason: ANXIETY Last Admin: 07/14/16 11:35 Dose: 5 mg Finasteride (Proscar -) 5 mg PO DAILY [facility] Last Admin: 07/15/16 09:10 Dose: 5 mg Gabapentin (Neurontin -) 600 mg PO BID [facility] Last Admin: 07/15/16 09:10 Dose: 600 mg Heparin Sodium (Porcine) (Heparin -) 5,000 unit SQ TID [facility] Last Admin: 07/15/16 05:59 Dose: 5,000 unit Hydromorphone HCl (Dilaudid -) 4 mg PO Q6H PRN PRN Reason: BACK PAIN Last Admin: 07/14/16 03:00 Dose: 4 mg Hydromorphone HCl (Dilaudid Injection -) 2 mg IVPUSH Q6H PRN Stop: 07/15/16 23:59 Last Admin: 07/15/16 09:01 Dose: 2 mg Insulin Aspart (Novolog Vial Sliding Scale -) 1 vial SQ ACHS [facility] PRN Reason: Protocol Last Admin: 07/15/16 11:21 Dose: Not Given Isosorbide Mononitrate (Imdur -) 60 mg PO DAILY [facility] Last Admin: 07/15/16 09:10 Dose: 60 mg Mesalamine (Asacol Hd -) 800 mg PO TID [facility] Montelukast Sodium (Singulair -) 10 mg PO HS [facility] Last Admin: 07/14/16 21:52 Dose: 10 mg Ondansetron HCl (Zofran -) 4 mg PO TIDCM [facility] Last Admin: 07/15/16 09:00 Dose: 4 mg Pancrelipase (Creon Dr 6,000 Units Capsule) 1 cap PO TIDCM [facility] Last Admin: 07/15/16 09:01 Dose: 1 cap Pantoprazole Sodium (Protonix -) 40 mg PO DAILY [facility] Last Admin: 07/15/16 09:10 Dose: 40 mg Polyethylene Glycol (Miralax (For Daily Use) -) 17 gm PO BID [facility] Last Admin: 07/15/16 09:11 Dose: Not Given Rosuvastatin Calcium (Crestor -) 10 mg PO HS [facility] Last Admin: 07/14/16 21:52 Dose: 10 mg Senna/Docusate Sodium (Pericolace -) 2 tablet PO HS PRN PRN Reason: CONSTIPATION Tamsulosin HCl (Flomax -) 0.4 mg PO DAILY@0830 [facility] Last Admin: 07/15/16 09:09 Dose: 0.4 mg Tapentadol (Nucynta Er -) 150 mg PO DAILY [facility] Last Admin: 07/15/16 10:31 Dose: 150 mg Theophylline (Jerome-24) 300 mg PO DAILY [facility] Last Admin: 07/15/16 10:31 Dose: 300 mg A/P 60 year old Gentleman with PMhx of CHF (RHF/Diastolic Dyfunction), Hypertension , COPD, DM, CAD s/p [place]/Stents, Cerival Nerve Damage who presented with 2 day history of chest pressure and found to have LOVE with BUN/Cr of 30/1.9 with baseline Cr of 0.8 -1.1. #Acute Kidney Injury Likely etiology is renal hypoperfusion resulting in pre-renal injury/ATN in setting of decreased cardiac output (bradycardia) and concurrent ACEi/Diuretics FeNa was 0.3% consistent with pre-renal injury Can D/C IVF at this time continue to hold diuretics and ACEi Trend BUN/Cr IF BUN/Cr at baseline tomorrow can resume LETI and diuretics #Chest pressure Cardiology following Off aCEi/Diurteics no evidence of acute decompensation CHF #BPH Continue Flomax #Chronic Pain Pain control with opiods Az Nelson DO
--- NOTE | 2016-07-15 12:28 | PN ---
Progress Note, Physician History of Present Illness: No dyspnea or chest pain - Current Medication List Current Medications: Active Medications Aclidinium [place] (Tudorza -) 1 puff IH BID [facility] Last Admin: 07/15/16 09:11 Dose: 1 puff Albuterol Sulfate (Ventolin 0.083% Nebulizer Soln -) 1 amp NEB Q6H PRN PRN Reason: WHEEZING Arformoterol Tartrate (Brovana (Restricted To Pulmonology/Resp) -) 1 amp NEB BID [facility] Last Admin: 07/15/16 09:45 Dose: 1 amp Aspirin (Asa -) 81 mg PO DAILY [facility] Last Admin: 07/15/16 09:10 Dose: 81 mg Budesonide/Formoterol Fumarate (Symbicort 160/4.5mcg -) 1 puff IH BID [facility] Last Admin: 07/15/16 09:11 Dose: 1 puff Clopidogrel Bisulfate (Plavix -) 75 mg PO DAILY [facility] Last Admin: 07/15/16 09:10 Dose: 75 mg Diazepam (Valium -) 5 mg PO DAILY PRN PRN Reason: ANXIETY Last Admin: 07/14/16 11:35 Dose: 5 mg Finasteride (Proscar -) 5 mg PO DAILY [facility] Last Admin: 07/15/16 09:10 Dose: 5 mg Gabapentin (Neurontin -) 600 mg PO BID [facility] Last Admin: 07/15/16 09:10 Dose: 600 mg Heparin Sodium (Porcine) (Heparin -) 5,000 unit SQ TID [facility] Last Admin: 07/15/16 05:59 Dose: 5,000 unit Hydromorphone HCl (Dilaudid -) 4 mg PO Q6H PRN PRN Reason: BACK PAIN Last Admin: 07/14/16 03:00 Dose: 4 mg Hydromorphone HCl (Dilaudid Injection -) 2 mg IVPUSH Q6H PRN Stop: 07/15/16 23:59 Last Admin: 07/15/16 09:01 Dose: 2 mg Insulin Aspart (Novolog Vial Sliding Scale -) 1 vial SQ ACHS [facility] PRN Reason: Protocol Last Admin: 07/15/16 11:21 Dose: Not Given Isosorbide Mononitrate (Imdur -) 60 mg PO DAILY [facility] Last Admin: 07/15/16 09:10 Dose: 60 mg Mesalamine (Asacol Hd -) 800 mg PO TID [facility] Montelukast Sodium (Singulair -) 10 mg PO HS [facility] Last Admin: 07/14/16 21:52 Dose: 10 mg Ondansetron HCl (Zofran -) 4 mg PO TIDCM [facility] Last Admin: 07/15/16 09:00 Dose: 4 mg Pancrelipase (Creon Dr 6,000 Units Capsule) 1 cap PO TIDCM [facility] Last Admin: 07/15/16 09:01 Dose: 1 cap Pantoprazole Sodium (Protonix -) 40 mg PO DAILY [facility] Last Admin: 07/15/16 09:10 Dose: 40 mg Polyethylene Glycol (Miralax (For Daily Use) -) 17 gm PO BID [facility] Last Admin: 07/15/16 09:11 Dose: Not Given Rosuvastatin Calcium (Crestor -) 10 mg PO HS [facility] Last Admin: 07/14/16 21:52 Dose: 10 mg Senna/Docusate Sodium (Pericolace -) 2 tablet PO HS PRN PRN Reason: CONSTIPATION Tamsulosin HCl (Flomax -) 0.4 mg PO DAILY@0830 [facility] Last Admin: 07/15/16 09:09 Dose: 0.4 mg Tapentadol (Nucynta Er -) 150 mg PO DAILY [facility] Last Admin: 07/15/16 10:31 Dose: 150 mg Theophylline (Jerome-24) 300 mg PO DAILY [facility] Last Admin: 07/15/16 10:31 Dose: 300 mg - Objective Vital Signs: Vital Signs Temperature 97.4 F L 07/15/16 09:20 Pulse Rate 80 07/15/16 10:09 Respiratory Rate 20 07/15/16 09:20 Blood Pressure 168/89 07/15/16 09:20 O2 Sat by Pulse Oximetry (%) 98 07/15/16 10:09 Constitutional: Yes: No Distress Eyes: No: Sclera Icterus HENT: Yes: Atraumatic, Normocephalic Neck: Yes: Supple, Trachea Midline Cardiovascular: Yes: Regular Rate and Rhythm. No: JVD Respiratory: Yes: CTA Bilaterally Gastrointestinal: Yes: Soft. No: Tenderness Extremities: No: Calf Tenderness Edema: Yes Edema: LLE: Trace, RLE: Trace Neurological: Yes: Alert, Oriented Labs: CBC, BMP 07/15/16 06:00 07/15/16 06:00 INR, PTT INR 1.18 (0.82-1.09) H 07/13/16 18:26 Problem List - Problems (1) ASHD (arteriosclerotic heart disease) Code(s): I25.10 - ATHSCL HEART DISEASE OF [place] CORONARY ARTERY W/O ANG PCTRS (2) GRACIE (obstructive sleep apnea) Code(s): G47.33 - OBSTRUCTIVE SLEEP APNEA (ADULT) (PEDIATRIC) (3) Tracheostomy in place Code(s): Z98.89 - OTHER SPECIFIED POSTPROCEDURAL STATES * DO NOT USE * (4) COPD (chronic obstructive pulmonary disease) Code(s): J44.9 - CHRONIC OBSTRUCTIVE PULMONARY DISEASE, UNSPECIFIED (5) Diabetes mellitus Code(s): E11.9 - TYPE 2 DIABETES MELLITUS WITHOUT COMPLICATIONS Qualifiers: Diabetes mellitus type: type 2 Diabetes mellitus complication detail: with unspecified neuropathy (6) Chronic pain with drug dependence Code(s): G89.29 - OTHER CHRONIC PAIN F19.20 - OTHER PSYCHOACTIVE SUBSTANCE DEPENDENCE, UNCOMPLICATED (7) Status post spinal surgery Code(s): Z98.89 - OTHER SPECIFIED POSTPROCEDURAL STATES * DO NOT USE * (8) Chronic pancreatitis Code(s): K86.1 - OTHER CHRONIC PANCREATITIS Assessment/Plan 60 year old male with known ASHD admitted with chest pressure and weakness. M.I r/o'd out. Weakness and bradycardia may be due to medication (Verapamil and Imdur). All consults noted. Chronic Obstructive Airway Disease: stable. DM-on insulin pump Chronic Pancreatitis-stable at present. GRACIE-sleeps with trach open Opioid dependence-continue his current analgesic outpt treatment Suggest: Adjustment of cardiac meds per cardiology Inhaled bronchodilators and inhaled steroids Keep tracheostomy open at night Insulin pump and insulin PRN Holter monitor in progress in progress Dobutamine MIBI in A.M.
[2016-07-15] MEDS: MESALAMINE 800 MG TABLET.DR PO SCH ×2 (14:23→21:23)
[2016-07-15] MEDS ORDERED: HYDROmorphone HCL CARPU-JECT 2 MG/1 ML DISP.SYRIN IVPUSH PRN (16:32)
--- NOTE | 2016-07-15 17:55 | PN ---
Progress Note (short form) - Note Progress Note: Subjective: The patient was seen and examined at the bedside, he has no complaints at this time Awaiting stress test in AM Current Medications Generic Name Dose Route Start Last Admin Trade Name Freq PRN Reason Stop Dose Admin Aclidinium [place] 1 puff 07/14/16 10:00 07/15/16 09:11 Tudorza - IH 1 puff BID [facility] Administration Albuterol Sulfate 1 amp 07/14/16 00:04 Ventolin 0.083% Nebulizer Soln - NEB Q6H PRN WHEEZING Arformoterol Tartrate 1 amp 07/14/16 10:00 07/15/16 09:45 Brovana (Restricted To Pulmonology/Resp) - NEB 1 amp BID [facility] Administration Aspirin 81 mg 07/14/16 10:00 07/15/16 09:10 Asa - PO 81 mg DAILY [facility] Administration Budesonide/Formoterol Fumarate 1 puff 07/14/16 10:00 07/15/16 09:11 Symbicort 160/4.5mcg - IH 1 puff BID [facility] Administration Clopidogrel Bisulfate 75 mg 07/14/16 10:00 07/15/16 09:10 Plavix - PO 75 mg DAILY [facility] Administration Diazepam 5 mg 07/14/16 00:04 07/14/16 11:35 Valium - PO 5 mg DAILY PRN Administration ANXIETY Finasteride 5 mg 07/14/16 10:00 07/15/16 09:10 Proscar - PO 5 mg DAILY [facility] Administration Gabapentin 600 mg 07/14/16 10:00 07/15/16 09:10 Neurontin - PO 600 mg BID [facility] Administration Heparin Sodium (Porcine) 5,000 unit 07/14/16 06:00 07/15/16 14:22 Heparin - SQ 5,000 unit TID [facility] Administration Hydromorphone HCl 4 mg 07/14/16 00:04 07/14/16 03:00 Dilaudid - PO 4 mg Q6H PRN Administration BACK PAIN Hydromorphone HCl 2 mg 07/15/16 16:32 Dilaudid Injection - IVPUSH 07/15/16 23:59 Q4H PRN MODERATE PAIN Insulin Detemir 10 units 07/16/16 07:00 Levemir Vial SQ AM [facility] Isosorbide Mononitrate 60 mg 07/14/16 10:00 07/15/16 09:10 Imdur - PO 60 mg DAILY [facility] Administration Mesalamine 800 mg 07/15/16 14:00 07/15/16 14:23 Asacol Hd - PO 800 mg TID [facility] Administration Montelukast Sodium 10 mg 07/14/16 22:00 07/14/16 21:52 Singulair - PO 10 mg HS [facility] Administration Ondansetron HCl 4 mg 07/14/16 08:00 07/15/16 12:31 Zofran - PO 4 mg TIDCM [facility] Administration Pancrelipase 1 cap 07/14/16 08:00 07/15/16 12:[address] 6,000 Units Capsule PO 1 cap TIDCM [facility] Administration Pantoprazole Sodium 40 mg 07/14/16 10:00 07/15/16 09:10 Protonix - PO 40 mg DAILY [facility] Administration Polyethylene Glycol 17 gm 07/14/16 10:00 07/15/16 09:11 Miralax (For Daily Use) - PO Not Given BID [facility] Rosuvastatin Calcium 10 mg 07/14/16 22:00 07/14/16 21:52 Crestor - PO 10 mg HS [facility] Administration Senna/Docusate Sodium 2 tablet 07/14/16 01:23 Pericolace - PO HS PRN CONSTIPATION Tamsulosin HCl 0.4 mg 07/14/16 08:30 07/15/16 09:09 Flomax - PO 0.4 mg DAILY@0830 [facility] Administration Tapentadol 150 mg 07/14/16 10:00 07/15/16 10:31 Nucynta Er - PO 150 mg DAILY [facility] Administration Theophylline 300 mg 07/14/16 10:00 07/15/16 10:31 Jerome-24 PO 300 mg DAILY [facility] Administration Objective: Vital Signs Period Temp Pulse Resp BP Sys/Gates Pulse Ox Last 24 Hr 97.4 F-98.2 F 72-90 20-20 155-168/68-89 98-98 Physical Exam: General: NAD, A&Ox3 HEENT: Trach in place Lungs: CTA bilaterally Heart: RRR, S1S2 Abd: Soft, non-tender, non-distended. Normoactive bowel sounds Ext: Warm, well-perfused. 2+ DP/PT bilaterally Neuro: CN 2-12 intact CBCD WBC 13.3 K/mm3 (4.0-10.0) H D 07/15/16 06:00 RBC 3.87 M/mm3 (4.00-5.60) L 07/15/16 06:00 Hgb 10.0 GM/dL (11.7-16.9) L 07/15/16 06:00 Hct 31.2 % (35.4-49) L 07/15/16 06:00 MCV 80.7 fl (80-96) 07/15/16 06:00 MCHC 32.0 g/dl (32.0-35.9) 07/15/16 06:00 RDW 14.6 % (11.9-15.9) 07/15/16 06:00 Plt Count 334 K/MM3 (134-434) 07/15/16 06:00 MPV 7.9 fl (7.5-11.1) 07/15/16 06:00 CMP Sodium 134 mmol/L (136-145) L 07/15/16 06:00 Potassium 4.4 mmol/L (3.5-5.1) 07/15/16 06:00 Chloride 105 mmol/L (98-107) 07/15/16 06:00 Carbon Dioxide 22 mmol/L (21-32) 07/15/16 06:00 Anion Gap 7 (8-16) L 07/15/16 06:00 BUN 33 mg/dL (7-18) H 07/15/16 06:00 Creatinine 1.4 mg/dL (0.7-1.3) H D 07/15/16 06:00 Creat Clearance w eGFR 51.35 (>60) 07/15/16 06:00 Random Glucose 282 mg/dL (74-106) H D 07/15/16 06:00 Calcium 9.0 mg/dL (8.5-10.1) 07/15/16 06:00 Total Bilirubin 0.4 mg/dL (0.2-1.0) 07/15/16 06:00 AST 13 U/L (15-37) L 07/15/16 06:00 ALT 25 U/L (12-78) 07/15/16 06:00 Alkaline Phosphatase 134 U/L (45-117) H 07/15/16 06:00 Total Protein 6.3 g/dl (6.4-8.2) L 07/15/16 06:00 Albumin 3.4 g/dl (3.4-5.0) 07/15/16 06:00 CARDIAC ENZYMES Creatine Kinase 279 IU/L (39-308) 07/14/16 07:10 Troponin I < 0.02 ng/ml (0.00-0.05) 07/14/16 07:10 Assessment: This is a 60 year old male with PMHx of asthma, COPD, DM, HTN, hyperlipidemia, [place] s/p stenting x6, CHF, diverticulosis, pancreatitis, cervical nerve damage who presented to the ED with chest pain and pressure. Plan: 1) Cardiology: Chest pain - Trop x3 negative - Continue Plavix - No ischemia on EKG - Holter monitor - Dobutamine MIBI in AM - Appreciate cardiology consult Bradycardia - 2/2 taking his home verapamil prior to arriving in ED - Resolved - F/u holter monitor Chronic diastolic heart failure - Currently euvolemic - Continue home medication HTN - Continue home medication 2) Pulmonary: COPD - Stable - D/c IV steroids - Continue Brovana - Continue Turdoza - Continue Singulair - Continue Symbicort - Appreciate pulmonary consult 3) : LOVE - Improving - Likely 2/2 hypoperfusion in setting of bradycardia - Continue to hold diuretics and ACEi - Continue to monitor BPH - Continue Flomax 4) Endocrine: DM - Continue own insulin pump 5) Psych: Chronic pain - Continue Dilaudid IVPB - Appreciate pain management - Appreciate neuro consult - Appreciate psych consult 6) F/E/N: - Diabetic/sodium controlled diet - Monitor electrolytes - NPO after midnight for stress test in AM 7) Prophylaxis: - Continue Heparin 5,000u sq tid - OOB ambulating 8) Dispo: - Requires continued inpatient care CODE STATUS: FULL CODE Visit type - Emergency Visit Emergency Visit: Yes ED Registration Date: 07/13/16 Care time: The patient presented to the Emergency Department on the above date and was hospitalized for further evaluation of their emergent condition. - New Patient This patient is new to me today: No - Critical Care Critical Care patient: No
[2016-07-15] MEDS ORDERED: HYDROmorphone HCL CARPU-JECT 2 MG/1 ML DISP.SYRIN IVPB PRN (20:08)
[2016-07-15] MEDS: MONTELUKAST NA 10 MG TABLET PO SCH ×2 (21:21→21:24)
[2016-07-15] MEDS: ROSUVASTATIN CA 10 MG TABLET (FP) PO SCH ×2 (21:22→21:23)
[2016-07-16] MEDS: HYDROmorphone HCL CARPU-JECT 2 MG/1 ML DISP.SYRIN IVPB PRN ×5 (00:28→22:41)
[2016-07-16] MEDS: MESALAMINE 800 MG TABLET.DR PO SCH ×3 (06:23→21:30)
[2016-07-16] MEDS: HEPARIN NA (PORCINE) 5,000 UNITS/ML 1ML VIAL SQ SCH ×3 (06:23→21:29)
[2016-07-16] MEDS: INSULIN DETEMIR 100 UNITS/ML MDV SQ SCH (06:24)
[2016-07-16 07:49] LABS: MCHC 32.4 g/dl (32.0-35.9); MEAN CELL VOLUME 80.2 fl (80-96); MEAN PLT VOLUME 7.7 fl (7.5-11.1); PLATELET COUNT 337 K/MM3 (134-434); RDW 14.5 % (11.9-15.9); WHITE BLOOD COUNT 11.6 K/mm3 (4.0-10.0)
[2016-07-16 08:27] LABS: ALBUMIN 3.3 g/dl (3.4-5.0); ALK PHOS 135 U/L (45-117); ANION GAP 6 (8-16); BILIRUBIN,TOTAL 0.4 mg/dL (0.2-1.0); CALCIUM 9.6 mg/dL (8.5-10.1); CO2 28 mmol/L (21-32); GLUCOSE,RANDOM 108 mg/dL (74-106); SGOT/AST 19 U/L (15-37); SGPT/ALT 27 U/L (12-78); TOT PROT 6.4 g/dl (6.4-8.2)
[2016-07-16] MEDS: GABAPENTIN 300 MG CAPSULE (FP) PO SCH ×2 (09:21→21:29)
[2016-07-16] MEDS: ONDANSETRON 4 MG TABLET PO SCH ×3 (09:21→16:59)
[2016-07-16] MEDS: LIPASE/PROTEASE/AMYLASE 6,000 UNIT CAPSULE PO SCH ×3 (09:21→16:59)
[2016-07-16] MEDS: CLOPIDOGREL BISULFATE 75 MG TABLET (FP) PO SCH (09:21)
[2016-07-16] MEDS: TAPENTADOL HCL 50 MG TAB.ER.12H PO SCH (09:21)
[2016-07-16] MEDS: POLYETHYLENE GLYCOL 3350 119 GM BTL PO SCH ×2 (09:21→21:30)
[2016-07-16] MEDS: ASPIRIN 81 MG CHEWABLE TABLETS PO SCH (09:21)
[2016-07-16] MEDS: PANTOPRAZOLE 40 MG TABLET (FP) PO SCH (09:21)
[2016-07-16] MEDS: THEOPHYLLINE ANHYDROUS 100 MG CAP.ER.24H PO SCH (09:22)
[2016-07-16] MEDS: ISOSORBIDE MONONITRATE 60 MG TAB.SR.24H (FP) PO SCH (09:27)
[2016-07-16] MEDS: FINASTERIDE 5 MG TABLET (FP) PO SCH (09:27)
[2016-07-16] MEDS: diazePAM 5 MG TABLET PO PRN (09:27)
[2016-07-16] MEDS: TAMSULOSIN HCL 0.4 MG CAP.ER.24H (FP) PO SCH (09:27)
[2016-07-16] MEDS ORDERED: DOBUTAMINE HCL 100,000 MCG in DEXTROSE 5%-WATER - 92 ML IVPB ONE (10:00)
[2016-07-16] MEDS: ARFORMOTEROL TARTRATE 15 MCG/2 ML VIAL NEB SCH ×2 (10:00→21:35)
[2016-07-16] MEDS: ACLIDINIUM BROMIDE 400 MCG/INH AERO.POWD IH SCH ×2 (10:13→21:30)
[2016-07-16] MEDS: BUDESONIDE/FORMETEROL FUMARATE 160/4.5 mcg INHALER IH SCH ×2 (10:13→21:30)
--- NOTE | 2016-07-16 10:41 | HOL ---
Hook-up date: 2016-07-14 14:16:00 Duration: 24:00:00 Test Indications: BRADYCARDIA Medications: [id number] QRS complexes 60 Ventricular ectopics which represent <1 % of total QRS comp. 227 Supraventricular ectopics which represent <1 % of total QRS comp. * Paced QRS complexs which represent % of total QRS comp. 3 % of Time Classified as Noise VENTRICULAR ECTOPY 58 Isolated 0 Bigeminal Cycles 1 Couplets 0 Runs 0 Beats in Runs * Beats LONGEST at * BPM at :: -- * Beats FASTEST at * BPM at :: -- SUPRAVENTRICULAR ECTOPY 192 Isolated 13 Couplets 3 Runs 9 Beats in Runs 3 Beats LONGEST at 126 BPM at 16:23:58 2016-07-14 3 Beats FASTEST at 129 BPM at 17:18:10 2016-07-14 HEART RATES 56 MIN at 13:45:16 2016-07-15 84 AVG 112 MAX at 21:50:17 2016-07-14 LONGEST RR 1.416 secs at 13:45:26 2016-07-15 SCANNED BY FELISHA LANTIGUA 07/15/2016 NO DIARY SUBMITTED 1. NORMAL SINUS RHYTHM WITH OCCASIONAL VPC'S AND APC'S 2. THREE SHORT RUNS OF SVT, 3 BEATS LONGEST AT 129 BEATS PER MINUTE. Confirmed by GIOVANNI BULLARD, STEVEN ([id number]), design editor SAJAN AGUIRRE ([id number]) on 07/16/2016 10:40:24 AM Referred By: Overread By: STEVEN DAVILA MD
--- NOTE | 2016-07-16 14:09 | PN ---
Progress Note, Physician - Current Medication List Current Medications: Active Medications Aclidinium [place] (Tudorza -) 1 puff IH BID [facility] Last Admin: 07/16/16 10:13 Dose: 1 puff Albuterol Sulfate (Ventolin 0.083% Nebulizer Soln -) 1 amp NEB Q6H PRN PRN Reason: WHEEZING Last Admin: 07/15/16 18:10 Dose: 1 amp Arformoterol Tartrate (Brovana (Restricted To Pulmonology/Resp) -) 1 amp NEB BID [facility] Last Admin: 07/16/16 10:00 Dose: 1 amp Aspirin (Asa -) 81 mg PO DAILY [facility] Last Admin: 07/16/16 09:21 Dose: Not Given Budesonide/Formoterol Fumarate (Symbicort 160/4.5mcg -) 1 puff IH BID [facility] Last Admin: 07/16/16 10:13 Dose: 1 puff Clopidogrel Bisulfate (Plavix -) 75 mg PO DAILY [facility] Last Admin: 07/16/16 09:21 Dose: Not Given Diazepam (Valium -) 5 mg PO DAILY PRN PRN Reason: ANXIETY Last Admin: 07/16/16 09:27 Dose: 5 mg Finasteride (Proscar -) 5 mg PO DAILY [facility] Last Admin: 07/16/16 09:27 Dose: 5 mg Gabapentin (Neurontin -) 600 mg PO BID [facility] Last Admin: 07/16/16 09:21 Dose: Not Given Heparin Sodium (Porcine) (Heparin -) 5,000 unit SQ TID [facility] Last Admin: 07/16/16 13:44 Dose: 5,000 unit Hydromorphone HCl (Dilaudid -) 4 mg PO Q6H PRN PRN Reason: BACK PAIN Last Admin: 07/14/16 03:00 Dose: 4 mg Hydromorphone HCl (Dilaudid Injection -) 2 mg IVPB Q4H PRN PRN Reason: PAIN Last Admin: 07/16/16 13:44 Dose: 2 mg Insulin Detemir (Levemir Vial) 10 units SQ AM [facility] Last Admin: 07/16/16 06:24 Dose: Not Given Isosorbide Mononitrate (Imdur -) 60 mg PO DAILY [facility] Last Admin: 07/16/16 09:27 Dose: 60 mg Mesalamine (Asacol Hd -) 800 mg PO TID [facility] Last Admin: 07/16/16 13:44 Dose: 800 mg Montelukast Sodium (Singulair -) 10 mg PO HS [facility] Last Admin: 07/15/16 21:24 Dose: 10 mg Ondansetron HCl (Zofran -) 4 mg PO TIDCM [facility] Last Admin: 07/16/16 11:28 Dose: Not Given Pancrelipase (Creon Dr 6,000 Units Capsule) 1 cap PO TIDCM [facility] Last Admin: 07/16/16 11:27 Dose: Not Given Pantoprazole Sodium (Protonix -) 40 mg PO DAILY [facility] Last Admin: 07/16/16 09:21 Dose: Not Given Polyethylene Glycol (Miralax (For Daily Use) -) 17 gm PO BID [facility] Last Admin: 07/16/16 09:21 Dose: Not Given Rosuvastatin Calcium (Crestor -) 10 mg PO HS [facility] Last Admin: 07/15/16 21:23 Dose: 10 mg Senna/Docusate Sodium (Pericolace -) 2 tablet PO PRN PRN Reason: CONSTIPATION Tamsulosin HCl (Flomax -) 0.4 mg PO DAILY@0830 [facility] Last Admin: 07/16/16 09:27 Dose: 0.4 mg Tapentadol (Nucynta Er -) 150 mg PO DAILY [facility] Last Admin: 07/16/16 09:21 Dose: Not Given Theophylline (Jerome-24) 300 mg PO DAILY [facility] Last Admin: 07/16/16 09:22 Dose: Not Given - Objective Vital Signs: Vital Signs Temperature 98.2 F 07/16/16 08:00 Pulse Rate 75 07/16/16 10:30 Respiratory Rate 20 07/16/16 10:30 Blood Pressure 163/96 07/16/16 10:30 O2 Sat by Pulse Oximetry (%) 100 07/16/16 08:00 Labs: CBC, BMP 07/16/16 06:35 07/16/16 06:35 INR, PTT INR 1.18 (0.82-1.09) H 07/13/16 18:26 Problem List - Problems (1) ASHD (arteriosclerotic heart disease) Code(s): I25.10 - ATHSCL HEART DISEASE OF [place] CORONARY ARTERY W/O ANG PCTRS (2) Acute on chronic diastolic (congestive) heart failure Code(s): I50.33 - ACUTE ON CHRONIC DIASTOLIC (CONGESTIVE) HEART FAILURE (3) GRACIE (obstructive sleep apnea) Code(s): G47.33 - OBSTRUCTIVE SLEEP APNEA (ADULT) (PEDIATRIC) (4) Pulmonary hypertension Code(s): I27.2 - OTHER SECONDARY PULMONARY HYPERTENSION (5) Renal insufficiency Code(s): N28.9 - DISORDER OF KIDNEY AND URETER, UNSPECIFIED Assessment/Plan 60 year old man with a history of HTN, HLD, DM, CAD s/p PA followed by PCI with stents 2002 and again 2016, Chronic Diastolic HF, Pulmonary HTN, GRACIE, COPD/ Asthma s/p permanent tracheostomy, on chronic steroid therapy with multiple previous admissions for acute exacerbations of asthma and right sided CHF. Pt. was in [facility] but is back home now. He has been doing well but started again having chest pressure and came to the ER. Chest pain-with known h/o CAD and multiple prior stents including this past year -cardiac enzymes wnl -no ischemia on ekg -no arrhythmias on tele or holter -f/up nuclear stress test today Bradycardia -likely sinus bradycardia after taking his home verapamil just prior to coming to the ER -no events on tele -holter no sig arrhythmia on tele, nsr with min HR 56bpm, brief SVT (3beats), apcs, pvcs Chronic diastolic CHF- -currently euvolemic -cont home medical regimen HTN-above goal -cont current medical regimen for now
[2016-07-16] MEDS ORDERED: LISINOPRIL 5 MG TABLET (FP) PO ONE (14:25)
--- NOTE | 2016-07-16 15:00 | PN ---
Progress Note (short form) - Note Progress Note: Nuclear stress test noted, inferior infarct with mild rosamaria-infarct ischemia, inferior hypokinesis, mild to mod LV dysfunction. Would continue with medical management for CAD at this time. 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 Add lisinopril today Holding verapamil given mild bradycardia, to be followed up as outpatient to consider resuming verapamil. Problem List - Problems (1) ASHD (arteriosclerotic heart disease) Code(s): I25.10 - ATHSCL HEART DISEASE OF [place] CORONARY ARTERY W/O ANG PCTRS (2) Acute on chronic diastolic (congestive) heart failure Code(s): I50.33 - ACUTE ON CHRONIC DIASTOLIC (CONGESTIVE) HEART FAILURE (3) GRACIE (obstructive sleep apnea) Code(s): G47.33 - OBSTRUCTIVE SLEEP APNEA (ADULT) (PEDIATRIC) (4) Pulmonary hypertension Code(s): I27.2 - OTHER SECONDARY PULMONARY HYPERTENSION (5) Renal insufficiency Code(s): N28.9 - DISORDER OF KIDNEY AND URETER, UNSPECIFIED
--- NOTE | 2016-07-16 15:11 | EKG ---
Test Reason : Blood Pressure : / mmHG Vent. Rate : 085 BPM Atrial Rate : 085 BPM P-R Int : 206 ms QRS Dur : 092 ms QT Int : 390 ms P-R-T Axes : 024 039 028 degrees QTc Int : 464 ms NORMAL SINUS RHYTHM NORMAL ECG WHEN COMPARED WITH ECG OF 14-JUL-2016 03:01, NO SIGNIFICANT CHANGE WAS FOUND Confirmed by PAULA HYLTON MD ([id number]) on 07/16/2016 3:10:55 PM Referred By: KAIDEN JORGE Confirmed By:PAULA HYLTON MD
[2016-07-16] MEDS ORDERED: RAMIPRIL 5 MG CAPSULE (FP) PO ONE (15:30)
--- NOTE | 2016-07-16 15:37 | PN ---
Progress Note (short form) - Note Progress Note: Renal Follow up for LOVE Pt seen and examined at the bedside s/p stress test no sob or chest pain off IVF Vital Signs Temperature 98.0 F 07/16/16 15:29 Pulse Rate 95 H 07/16/16 15:29 Respiratory Rate 20 07/16/16 10:30 Blood Pressure 128/93 07/16/16 15:29 O2 Sat by Pulse Oximetry (%) 100 07/16/16 08:00 Gen: Awake and Alert, NAD CVS: RRR, No M/R Lungs: CTA, no rales or wheeze Abd: soft NT/ND Ext: 1+ LE edema, no cyanosis or clubbing CBC, BMP 07/16/16 06:35 07/16/16 06:35 Current Medications Aclidinium [place] (Tudorza -) 1 puff IH BID [facility] Last Admin: 07/16/16 10:13 Dose: 1 puff Albuterol Sulfate (Ventolin 0.083% Nebulizer Soln -) 1 amp NEB Q6H PRN PRN Reason: WHEEZING Last Admin: 07/15/16 18:10 Dose: 1 amp Arformoterol Tartrate (Brovana (Restricted To Pulmonology/Resp) -) 1 amp NEB BID [facility] Last Admin: 07/16/16 10:00 Dose: 1 amp Aspirin (Asa -) 81 mg PO DAILY [facility] Last Admin: 07/16/16 09:21 Dose: Not Given Budesonide/Formoterol Fumarate (Symbicort 160/4.5mcg -) 1 puff IH BID [facility] Last Admin: 07/16/16 10:13 Dose: 1 puff Clopidogrel Bisulfate (Plavix -) 75 mg PO DAILY [facility] Last Admin: 07/16/16 09:21 Dose: Not Given Diazepam (Valium -) 5 mg PO DAILY PRN PRN Reason: ANXIETY Last Admin: 07/16/16 09:27 Dose: 5 mg Finasteride (Proscar -) 5 mg PO DAILY [facility] Last Admin: 07/16/16 09:27 Dose: 5 mg Gabapentin (Neurontin -) 600 mg PO BID [facility] Last Admin: 07/16/16 09:21 Dose: Not Given Heparin Sodium (Porcine) (Heparin -) 5,000 unit SQ TID [facility] Last Admin: 07/16/16 13:44 Dose: 5,000 unit Hydromorphone HCl (Dilaudid -) 4 mg PO Q6H PRN PRN Reason: BACK PAIN Last Admin: 07/14/16 03:00 Dose: 4 mg Hydromorphone HCl (Dilaudid Injection -) 2 mg IVPB Q4H PRN PRN Reason: PAIN Last Admin: 07/16/16 13:44 Dose: 2 mg Insulin Detemir (Levemir Vial) 10 units SQ AM [facility] Last Admin: 07/16/16 06:24 Dose: Not Given Isosorbide Mononitrate (Imdur -) 60 mg PO DAILY [facility] Last Admin: 07/16/16 09:27 Dose: 60 mg Mesalamine (Asacol Hd -) 800 mg PO TID [facility] Last Admin: 07/16/16 13:44 Dose: 800 mg Montelukast Sodium (Singulair -) 10 mg PO HS [facility] Last Admin: 07/15/16 21:24 Dose: 10 mg Ondansetron HCl (Zofran -) 4 mg PO TIDCM [facility] Last Admin: 07/16/16 11:28 Dose: Not Given Pancrelipase (Creon Dr 6,000 Units Capsule) 1 cap PO TIDCM [facility] Last Admin: 07/16/16 11:27 Dose: Not Given Pantoprazole Sodium (Protonix -) 40 mg PO DAILY [facility] Last Admin: 07/16/16 09:21 Dose: Not Given Polyethylene Glycol (Miralax (For Daily Use) -) 17 gm PO BID [facility] Last Admin: 07/16/16 09:21 Dose: Not Given Rosuvastatin Calcium (Crestor -) [address] [facility] Last Admin: 07/15/16 21:23 Dose: 10 mg Senna/Docusate Sodium (Pericolace -) 2 tablet PO HS PRN PRN Reason: CONSTIPATION Tamsulosin HCl (Flomax -) 0.4 mg PO DAILY@0830 [facility] Last Admin: 07/16/16 09:27 Dose: 0.4 mg Tapentadol (Nucynta Er -) 150 mg PO DAILY [facility] Last Admin: 07/16/16 09:21 Dose: Not Given Theophylline (Jerome-24) 300 mg PO DAILY [facility] Last Admin: 07/16/16 09:22 Dose: Not Given A/P 60 year old Gentleman with PMhx of CHF (RHF/Diastolic Dyfunction), Hypertension , COPD, DM, CAD s/p SC/Stents, Cerival Nerve Damage who presented with 2 day history of chest pressure and found to have LOVE with BUN/Cr of 30/1.9 with baseline Cr of 0.8 -1.1. #Acute Kidney Injury Likely etiology is renal hypoperfusion resulting in pre-renal injury/ATN in setting of decreased cardiac output (bradycardia) and concurrent ACEi/Diuretics FeNa was 0.3% consistent with pre-renal injury renal function improved to near baseline no indication for any further IVF Can resume ACEi for BP control Trend BUN/Cr #Chest pressure Cardiology following s/p stress test today #Hypertension Ramipril 10mg resumed today trend K and renal function #BPH Continue Flomax #Chronic Pain Pain control with opiods Az Nelson DO
--- NOTE | 2016-07-16 16:01 | PN ---
Progress Note (short form) - Note Progress Note: Subjective: The patient was seen and examined at the bedside, he has no complaints at this time Awaiting stress test in AM Current Medications Generic Name Dose Route Start Last Admin Trade Name Freq PRN Reason Stop Dose Admin Aclidinium [place] 1 puff 07/14/16 10:00 07/15/16 09:11 Tudorza - IH 1 puff BID MARK Administration Albuterol Sulfate 1 amp 07/14/16 00:04 Ventolin 0.083% Nebulizer Soln - NEB Q6H PRN WHEEZING Arformoterol Tartrate 1 amp 07/14/16 10:00 07/15/16 09:45 Brovana (Restricted To Pulmonology/Resp) - NEB 1 amp BID MARK Administration Aspirin 81 mg 07/14/16 10:00 07/15/16 09:10 Asa - PO 81 mg DAILY MARK Administration Budesonide/Formoterol Fumarate 1 puff 07/14/16 10:00 07/15/16 09:11 Symbicort 160/4.5mcg - IH 1 puff BID MARK Administration Clopidogrel Bisulfate 75 mg 07/14/16 10:00 07/15/16 09:10 Plavix - PO 75 mg DAILY MARK Administration Diazepam 5 mg 07/14/16 00:04 07/14/16 11:35 Valium - PO 5 mg DAILY PRN Administration ANXIETY Finasteride 5 mg 07/14/16 10:00 07/15/16 09:10 Proscar - PO 5 mg DAILY MARK Administration Gabapentin 600 mg 07/14/16 10:00 07/15/16 09:10 Neurontin - PO 600 mg BID MARK Administration Heparin Sodium (Porcine) 5,000 unit 07/14/16 06:00 07/15/16 14:22 Heparin - SQ 5,000 unit TID MARK Administration Hydromorphone HCl 4 mg 07/14/16 00:04 07/14/16 03:00 Dilaudid - PO 4 mg Q6H PRN Administration BACK PAIN Hydromorphone HCl 2 mg 07/15/16 16:32 Dilaudid Injection - IVPUSH 07/15/16 23:59 Q4H PRN MODERATE PAIN Insulin Detemir 10 units 07/16/16 07:00 Levemir Vial SQ AM MARK Isosorbide Mononitrate 60 mg 07/14/16 10:00 07/15/16 09:10 Imdur - PO 60 mg DAILY MARK Administration Mesalamine 800 mg 07/15/16 14:00 07/15/16 14:23 Asacol Hd - PO 800 mg TID MARK Administration Montelukast Sodium 10 mg 07/14/16 22:00 07/14/16 21:52 Singulair - PO 10 mg HS MARK Administration Ondansetron HCl 4 mg 07/14/16 08:00 07/15/16 12:31 Zofran - PO 4 mg TIDCM MARK Administration Pancrelipase 1 cap 07/14/16 08:00 07/15/16 12:[address] 6,000 Units Capsule PO 1 cap TIDCM MARK Administration Pantoprazole Sodium 40 mg 07/14/16 10:00 07/15/16 09:10 Protonix - PO 40 mg DAILY MARK Administration Polyethylene Glycol 17 gm 07/14/16 10:00 07/15/16 09:11 Miralax (For Daily Use) - PO Not Given BID [facility] Rosuvastatin Calcium 10 mg 07/14/16 22:00 07/14/16 21:52 Crestor - PO 10 mg HS MARK Administration Senna/Docusate Sodium 2 tablet 07/14/16 01:23 Pericolace - PO HS PRN CONSTIPATION Tamsulosin HCl 0.4 mg 07/14/16 08:30 07/15/16 09:09 Flomax - PO 0.4 mg DAILY@0830 MARK Administration Tapentadol 150 mg 07/14/16 10:00 07/15/16 10:31 Nucynta Er - PO 150 mg DAILY MARK Administration Theophylline 300 mg 07/14/16 10:00 07/15/16 10:31 Jerome-24 PO 300 mg DAILY MARK Administration Objective: Vital Signs Period Temp Pulse Resp BP Sys/Gates Pulse Ox Last 24 Hr 97.4 F-98.2 F 72-90 20-20 155-168/68-89 98-98 Physical Exam: General: NAD, A&Ox3 HEENT: Trach in place Lungs: CTA bilaterally Heart: RRR, S1S2 Abd: Soft, non-tender, non-distended. Normoactive bowel sounds Ext: Warm, well-perfused. 2+ DP/PT bilaterally Neuro: CN 2-12 intact CBCD WBC 13.3 K/mm3 (4.0-10.0) H D 07/15/16 06:00 RBC 3.87 M/mm3 (4.00-5.60) L 07/15/16 06:00 Hgb 10.0 GM/dL (11.7-16.9) L 07/15/16 06:00 Hct 31.2 % (35.4-49) L 07/15/16 06:00 MCV 80.7 fl (80-96) 07/15/16 06:00 MCHC 32.0 g/dl (32.0-35.9) 07/15/16 06:00 RDW 14.6 % (11.9-15.9) 07/15/16 06:00 Plt Count 334 K/MM3 (134-434) 07/15/16 06:00 MPV 7.9 fl (7.5-11.1) 07/15/16 06:00 CMP Sodium 134 mmol/L (136-145) L 07/15/16 06:00 Potassium 4.4 mmol/L (3.5-5.1) 07/15/16 06:00 Chloride 105 mmol/L (98-107) 07/15/16 06:00 Carbon Dioxide 22 mmol/L (21-32) 07/15/16 06:00 Anion Gap 7 (8-16) L 07/15/16 06:00 BUN 33 mg/dL (7-18) H 07/15/16 06:00 Creatinine 1.4 mg/dL (0.7-1.3) H D 07/15/16 06:00 Creat Clearance w eGFR 51.35 (>60) 07/15/16 06:00 Random Glucose 282 mg/dL (74-106) H D 07/15/16 06:00 Calcium 9.0 mg/dL (8.5-10.1) 07/15/16 06:00 Total Bilirubin 0.4 mg/dL (0.2-1.0) 07/15/16 06:00 AST 13 U/L (15-37) L 07/15/16 06:00 ALT 25 U/L (12-78) 07/15/16 06:00 Alkaline Phosphatase 134 U/L (45-117) H 07/15/16 06:00 Total Protein 6.3 g/dl (6.4-8.2) L 07/15/16 06:00 Albumin 3.4 g/dl (3.4-5.0) 07/15/16 06:00 CARDIAC ENZYMES Creatine Kinase 279 IU/L (39-308) 07/14/16 07:10 Troponin I < 0.02 ng/ml (0.00-0.05) 07/14/16 07:10 Assessment: This is a 60 year old male with PMHx of asthma, COPD, DM, HTN, hyperlipidemia, [place] s/p stenting x6, CHF, diverticulosis, pancreatitis, cervical nerve damage who presented to the ED with chest pain and pressure. Plan: 1) Cardiology: Chest pain - Trop x3 negative - Continue Plavix - No ischemia on EKG - Holter monitor - Dobutamine MIBI in AM - Appreciate cardiology consult Bradycardia - 2/2 taking his home verapamil prior to arriving in ED - Resolved - F/u holter monitor Chronic diastolic heart failure - Currently euvolemic - Continue home medication HTN - Continue home medication 2) Pulmonary: COPD - Stable - D/c IV steroids - Continue Brovana - Continue Turdoza - Continue Singulair - Continue Symbicort - Appreciate pulmonary consult 3) : LOVE - Improving - Likely 2/2 hypoperfusion in setting of bradycardia - Continue to hold diuretics and ACEi - Continue to monitor BPH - Continue Flomax 4) Endocrine: DM - Continue own insulin pump 5) Psych: Chronic pain - Continue Dilaudid IVPB - Appreciate pain management - Appreciate neuro consult - Appreciate psych consult 6) F/E/N: - Diabetic/sodium controlled diet - Monitor electrolytes - NPO after midnight for stress test in AM 7) Prophylaxis: - Continue Heparin 5,000u sq tid - OOB ambulating 8) Dispo: - Requires continued inpatient care CODE STATUS: FULL CODE
--- NOTE | 2016-07-16 16:37 | DS ---
Physical Examination Vital Signs: Vital Signs Temperature 98.0 F 07/16/16 15:29 Pulse Rate 95 H 07/16/16 15:29 Respiratory Rate 20 07/16/16 10:30 Blood Pressure 128/93 07/16/16 15:29 O2 Sat by Pulse Oximetry (%) 100 07/16/16 08:00 Labs: CBC, BMP 07/16/16 06:35 07/16/16 06:35 Discharge Summary Reason For Visit: CHEST PAIN, C.O.B. RENAL INSUFF. Current Active Problems ASHD (arteriosclerotic heart disease) (Acute) Acute on chronic diastolic (congestive) heart failure (Acute) Acute on chronic systolic right heart failure (Acute) Cervical vertebral fusion (Acute) Chest pain made worse by breathing (Acute) Chronic bronchitis with COPD (chronic obstructive pulmonary disease) (Acute) Chronic pain following surgery or procedure (Acute) Fusion of lumbar spine (Acute) GRACIE (obstructive sleep apnea) (Acute) Pulmonary hypertension (Acute) Renal insufficiency (Acute) Type 2 diabetes mellitus with diabetic neuropathic arthropathy (Acute) Hospital Course: Discussed with cardiology and nephrology. Will restart ramipril. Continue to hold verapimil until further evaluation by outpatient motorized squad commanding officer Condition: Stable - Instructions Diet, Activity, Other Instructions: Please return to the ED with new, persistent, or worsening symptoms. Please follow-up with providers as indicated. Referrals: Randy West MD [Staff Physician] - (Please follow-up with cardiology within 2-3 days for further management of your coronary artery disease. Please stop taking your verapamil until you follow-up with your motorized squad commanding officer. ) Markus Knox MD [Primary Care Provider] - (Please follow-up with your pcp within 2-3 days) Omari Boles MD [Staff Physician] - 1 Week Az Nelson MD [Staff Physician] - (Please follow-up with nephrology within 1 week for further evaluation of your kidneys) Kadie Singh MD [Staff Physician] - (Please follow-up with neurology within 1 week for further management of your chronic back pain) Disposition: [facility]/HOME HEALTH CARE - Home Medications Comprehensive Discharge Medication List: Ambulatory Orders Acetaminophen [Tylenol] 650 mg PO DAILY 04/23/16 Albuterol 0.083% Nebulizer Elena [Ventolin 0.083% Nebulizer Soln -] 1 neb NEB QID 04/23/16 Arformoterol Tartrate [Brovana] 15 mcg IH BID 04/23/16 Aspirin [ASA -] 81 mg PO DAILY 04/23/16 Budesonide/Formeterol Fumarate [SYMBICORT 160/4.5mcg -] 1 inh PO BID 04/23/16 Clopidogrel Bisulfate [Plavix -] 75 mg PO DAILY 04/23/16 Diazepam [Valium] 5 mg PO DAILY 04/23/16 Docusate Sodium [Colace -] 100 mg PO DAILY 04/23/16 Finasteride 5 mg PO DAILY 04/23/16 Isosorbide Mononitrate [Imdur -] 60 mg PO DAILY 04/23/16 Mesalamine [Asacol HD -] 800 mg PO TID 04/23/16 Montelukast Na [Singulair -] 10 mg PO HS 04/23/16 Ondansetron [Zuplenz] 4 mg PO QID 04/23/16 Pantoprazole Sodium [Protonix] 40 mg PO DAILY 04/23/16 Polyethylene Glycol 3350 [Miralax 119 gm Btl -] 17 gm PO BID 04/23/16 Silver Sulfadiazine 1% Top Cr [Silvadene -] 1 applic TP DAILY 04/23/16 Sucralfate [Carafate] 10 ml PO QID 04/23/16 Tamsulosin HCl 0.4 mg PO DAILY 04/23/16 Tiotropium [place] [Spiriva] 1 inh PO DAILY 04/23/16 Gabapentin [Neurontin -] 200 mg PO TID capsule 04/25/16 Insulin (Levemir) [Levemir Vial] 10 units SQ AM ml 04/25/16 Insulin Sliding Scale [Novolog Vial Sliding Scale -] 1 vial SQ ACHS units 04/25 Hydromorphone HCl [Dilaudid] 4 mg PO QID PRN #20 tablet MDD 4 04/28/16 Lipase/Protease/Amylase [Stacy Hackett 6,000 Units Capsule] 1 cap PO TIDCM #30 capsule. 04/28/16 Methylnaltrexone [place] [Relistor -] 12 mg SQ DAILY #10 kit 04/28/16 Insulin Pump Controller [Snap Insulin Pump Controller] 1 SQ ASDIR 07/15/16 Ramipril [Altace] 10 mg PO 07/16/16 Tapentadol ER [Nucynta ER -] 150 mg PO DAILY #0 tab.er.12h MDD 300 07/16/16 Theophylline Anhydrous [Jerome-24] 300 mg PO DAILY #90 cap.er.24h 07/16/16
[2016-07-16 17:33] LABS: OSMOLALITY,SERUM 296 mosm/kg (278-305)
[2016-07-16] MEDS: MONTELUKAST NA 10 MG TABLET PO SCH (21:29)
[2016-07-16] MEDS: ROSUVASTATIN CA 10 MG TABLET (FP) PO SCH (21:29)
[2016-07-17] MEDS: HEPARIN NA (PORCINE) 5,000 UNITS/ML 1ML VIAL SQ SCH ×3 (06:15→21:22)
[2016-07-17] MEDS: MESALAMINE 800 MG TABLET.DR PO SCH ×3 (06:15→21:25)
[2016-07-17] MEDS: INSULIN DETEMIR 100 UNITS/ML MDV SQ SCH (06:15)
[2016-07-17] MEDS: HYDROmorphone HCL CARPU-JECT 2 MG/1 ML DISP.SYRIN IVPB PRN ×2 (06:16→10:03)
[2016-07-17 09:01] LABS: ANION GAP -1 (8-16); CALCIUM 9.6 mg/dL (8.5-10.1); CO2 27 mmol/L (21-32); GLUCOSE,RANDOM 155 mg/dL (74-106)
[2016-07-17 09:02] LABS: PHOSPHOROUS 3.3 mg/dL (2.5-4.9)
[2016-07-17 09:28] LABS: TROPONIN I < 0.02 ng/ml (0.00-0.05)
[2016-07-17] MEDS ORDERED: PT OWN MED DRAWER 7, Y5N ONE (09:57)
[2016-07-17] MEDS: ONDANSETRON 4 MG TABLET PO SCH ×3 (10:04→17:31)
[2016-07-17] MEDS: PANTOPRAZOLE 40 MG TABLET (FP) PO SCH (10:05)
[2016-07-17] MEDS: TAMSULOSIN HCL 0.4 MG CAP.ER.24H (FP) PO SCH (10:05)
[2016-07-17] MEDS: CLOPIDOGREL BISULFATE 75 MG TABLET (FP) PO SCH (10:05)
[2016-07-17] MEDS: ISOSORBIDE MONONITRATE 60 MG TAB.SR.24H (FP) PO SCH (10:06)
[2016-07-17] MEDS: FINASTERIDE 5 MG TABLET (FP) PO SCH (10:06)
[2016-07-17] MEDS: TAPENTADOL HCL 50 MG TAB.ER.12H PO SCH (10:06)
[2016-07-17] MEDS: ASPIRIN 81 MG CHEWABLE TABLETS PO SCH (10:06)
[2016-07-17] MEDS: GABAPENTIN 300 MG CAPSULE (FP) PO SCH ×2 (10:06→21:21)
[2016-07-17] MEDS: POLYETHYLENE GLYCOL 3350 119 GM BTL PO SCH ×2 (10:07→21:22)
[2016-07-17] MEDS: BUDESONIDE/FORMETEROL FUMARATE 160/4.5 mcg INHALER IH SCH ×2 (10:07→21:24)
[2016-07-17] MEDS: ACLIDINIUM BROMIDE 400 MCG/INH AERO.POWD IH SCH ×2 (10:08→21:24)
[2016-07-17] MEDS: THEOPHYLLINE ANHYDROUS 100 MG CAP.ER.24H PO SCH (10:08)
[2016-07-17] MEDS: ARFORMOTEROL TARTRATE 15 MCG/2 ML VIAL NEB SCH ×2 (10:15→21:31)
[2016-07-17] MEDS: LIPASE/PROTEASE/AMYLASE 6,000 UNIT CAPSULE PO SCH ×3 (11:49→17:31)
[2016-07-17] MEDS: RAMIPRIL 5 MG CAPSULE (FP) PO SCH (11:55)
--- NOTE | 2016-07-17 12:13 | EKG ---
Test Reason : Blood Pressure : / mmHG Vent. Rate : 086 BPM Atrial Rate : 086 BPM P-R Int : 148 ms QRS Dur : 082 ms QT Int : 390 ms P-R-T Axes : 059 019 034 degrees QTc Int : 466 ms NORMAL SINUS RHYTHM NORMAL ECG WHEN COMPARED WITH ECG OF 14-JUL-2016 09:54, NO SIGNIFICANT CHANGE WAS FOUND Confirmed by CHRISTI NIELSEN MD ([id number]) on 07/17/2016 12:13:39 PM Referred By: REJI GLASS Confirmed By:CHRISTI NIELSEN MD
--- NOTE | 2016-07-17 13:19 | PN ---
Progress Note, Physician Chief Complaint: comfortable now no further CP another episode of atypical CP this AM. Sharp, worse with movement lasting few "Seconds" History of Present Illness: BP improved from this AM initial reading taken when he was agitated and refusing discharge now calm and chatting with his brother at the bedside - Current Medication List Current Medications: Active Medications Aclidinium [place] (Tudorza -) 1 puff IH BID [facility] Last Admin: 07/17/16 10:08 Dose: 1 puff Albuterol Sulfate (Ventolin 0.083% Nebulizer Soln -) 1 amp NEB Q6H PRN PRN Reason: WHEEZING Last Admin: 07/15/16 18:10 Dose: 1 amp Arformoterol Tartrate (Brovana (Restricted To Pulmonology/Resp) -) 1 amp NEB BID [facility] Last Admin: 07/17/16 10:15 Dose: 1 amp Aspirin (Asa -) 81 mg PO DAILY [facility] Last Admin: 07/17/16 10:06 Dose: 81 mg Budesonide/Formoterol Fumarate (Symbicort 160/4.5mcg -) 1 puff IH BID [facility] Last Admin: 07/17/16 10:07 Dose: 1 puff Clopidogrel Bisulfate (Plavix -) 75 mg PO DAILY [facility] Last Admin: 07/17/16 10:05 Dose: 75 mg Finasteride (Proscar -) 5 mg PO DAILY [facility] Last Admin: 07/17/16 10:06 Dose: 5 mg Gabapentin (Neurontin -) 600 mg PO BID [facility] Last Admin: 07/17/16 10:06 Dose: 600 mg Heparin Sodium (Porcine) (Heparin -) 5,000 unit SQ TID [facility] Last Admin: 07/17/16 06:15 Dose: 5,000 unit Hydromorphone HCl (Dilaudid -) 4 mg PO Q6H PRN PRN Reason: BACK PAIN Last Admin: 07/14/16 03:00 Dose: 4 mg Insulin Detemir (Levemir Vial) 10 units SQ AM [facility] Last Admin: 07/17/16 06:15 Dose: Not Given Isosorbide Mononitrate (Imdur -) 60 mg PO DAILY [facility] Last Admin: 07/17/16 10:06 Dose: 60 mg Mesalamine (Asacol Hd -) 800 mg PO TID [facility] Last Admin: 07/17/16 06:15 Dose: 800 mg Montelukast Sodium (Singulair -) 10 mg PO HS [facility] Last Admin: 07/16/16 21:29 Dose: 10 mg Ondansetron HCl (Zofran -) 4 mg PO TIDCM [facility] Last Admin: 07/17/16 11:55 Dose: 4 mg Pancrelipase (Creon Dr 6,000 Units Capsule) 1 cap PO TIDCM [facility] Last Admin: 07/17/16 11:55 Dose: 1 cap Pantoprazole Sodium (Protonix -) 40 mg PO DAILY [facility] Last Admin: 07/17/16 10:05 Dose: 40 mg Polyethylene Glycol (Miralax (For Daily Use) -) 17 gm PO BID [facility] Last Admin: 07/17/16 10:07 Dose: Not Given Ramipril (Altace -) 10 mg PO DAILY [facility] Last Admin: 07/17/16 11:55 Dose: 10 mg Rosuvastatin Calcium (Crestor -) 10 mg PO HS [facility] Last Admin: 07/16/16 21:29 Dose: 10 mg Senna/Docusate Sodium (Pericolace -) 2 tablet PO HS PRN PRN Reason: CONSTIPATION Tamsulosin HCl (Flomax -) 0.4 mg PO DAILY@0830 [facility] Last Admin: 07/17/16 10:05 Dose: 0.4 mg Tapentadol (Nucynta Er -) 150 mg PO DAILY [facility] Last Admin: 07/17/16 10:06 Dose: 150 mg Theophylline (Jerome-24) 300 mg PO DAILY [facility] Last Admin: 07/17/16 10:08 Dose: 300 mg - Objective Vital Signs: Vital Signs Temperature 98.2 F 07/17/16 08:00 Pulse Rate 90 07/17/16 08:00 Respiratory Rate 20 07/17/16 08:00 Blood Pressure 151/113 07/17/16 08:00 O2 Sat by Pulse Oximetry (%) 96 07/17/16 08:00 Constitutional: Yes: No Distress Eyes: Yes: Conjunctiva Clear Cardiovascular: Yes: Regular Rate and Rhythm Respiratory: Yes: CTA Bilaterally (no wheezing) Gastrointestinal: Yes: Soft Edema: No Neurological: Yes: Alert Labs: CBC, BMP 07/16/16 06:35 07/17/16 07:00 INR, PTT INR 1.18 (0.82-1.09) H 07/13/16 18:26 Assessment/Plan IMP: Chronic atypical chest pain Known CAD REC: Stress findings and sx 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 Elaine. Given the atypical nature of sx and chronicity of his complaints and lack of significant ischemia on stress, medical Rx is most appropriate at this time. No further inpatient evaluation is planned and he should follow up closely w Dr. Elaine in office next week.
--- NOTE | 2016-07-17 15:09 | PN ---
Progress Note (short form) - Note Progress Note: Subjective: The patient was seen and examined at the bedside, he has no complaints at this time CP This AM, trop negative, EKG unchanged Remains hypertensive, discussed with Dr. Boudreaux, will restart Verapamil Current Medications Generic Name Dose Route Start Last Admin Trade Name Freq PRN Reason Stop Dose Admin Aclidinium [place] 1 puff 07/14/16 10:00 07/17/16 10:08 Tudorza - IH 1 puff BID MARK Administration Albuterol Sulfate 1 amp 07/14/16 00:04 07/15/16 18:10 Ventolin 0.083% Nebulizer Soln - NEB 1 amp Q6H PRN Administration WHEEZING Arformoterol Tartrate 1 amp 07/14/16 10:00 07/17/16 10:15 Brovana (Restricted To Pulmonology/Resp) - NEB 1 amp BID MARK Administration Aspirin 81 mg 07/14/16 10:00 07/17/16 10:06 Asa - PO 81 mg DAILY [facility] Administration Budesonide/Formoterol Fumarate 1 puff 07/14/16 10:00 07/17/16 10:07 Symbicort 160/4.5mcg - IH 1 puff BID MARK Administration Clopidogrel Bisulfate 75 mg 07/14/16 10:00 07/17/16 10:05 Plavix - PO 75 mg DAILY [facility] Administration Finasteride 5 mg 07/14/16 10:00 07/17/16 10:06 Proscar - PO 5 mg DAILY [facility] Administration Gabapentin 600 mg 07/14/16 10:00 07/17/16 10:06 Neurontin - PO 600 mg BID [facility] Administration Heparin Sodium (Porcine) 5,000 unit 07/14/16 06:00 07/17/16 06:15 Heparin - SQ 5,000 unit TID [facility] Administration Hydromorphone HCl 4 mg 07/14/16 00:04 07/14/16 03:00 Dilaudid - PO 4 mg Q6H PRN Administration BACK PAIN Insulin Detemir 10 units 07/16/16 07:00 07/17/16 06:15 Levemir Vial SQ Not Given AM MARK Isosorbide Mononitrate 60 mg 07/14/16 10:00 07/17/16 10:06 Imdur - PO 60 mg DAILY [facility] Administration Mesalamine 800 mg 07/15/16 14:00 07/17/16 06:15 Asacol Hd - PO 800 mg TID [facility] Administration Montelukast Sodium 10 mg 07/14/16 22:00 07/16/16 21:29 Singulair - PO 10 mg HS [facility] Administration Ondansetron HCl 4 mg 07/14/16 08:00 07/17/16 11:55 Zofran - PO 4 mg TIDCM MARK Administration Pancrelipase 1 cap 07/14/16 08:00 07/17/16 11:55 Creon 6,000 Units Capsule PO 1 cap TIDCM MARK Administration Pantoprazole Sodium 40 mg 07/14/16 10:00 07/17/16 10:05 Protonix - PO 40 mg DAILY [facility] Administration Polyethylene Glycol 17 gm 07/14/16 10:00 07/17/16 10:07 Miralax (For Daily Use) - PO Not Given BID [facility] Ramipril 10 mg 07/17/16 10:15 07/17/16 11:55 Altace - PO 10 mg DAILY [facility] Administration Rosuvastatin Calcium 10 mg 07/14/16 22:00 07/16/16 21:29 Crestor - PO 10 mg HS MARK Administration Senna/Docusate Sodium 2 tablet 07/14/16 01:23 Pericolace - PO HS PRN CONSTIPATION Tamsulosin HCl 0.4 mg 07/14/16 08:30 07/17/16 10:05 Flomax - PO 0.4 mg DAILY@0830 [facility] Administration Tapentadol 150 mg 07/14/16 10:00 07/17/16 10:06 Nucynta Er - PO 150 mg DAILY [facility] Administration Theophylline 300 mg 07/14/16 10:00 07/17/16 10:08 Jerome-24 PO 300 mg DAILY [facility] Administration Verapamil HCl 120 mg 07/17/16 15:15 Calan Sr - PO BID [facility] Objective: Vital Signs Period Temp Pulse Resp BP Sys/Gates Pulse Ox Last 24 Hr 97.6 F-98.2 F 76-104 20-20 128-168/86-113 96-98 Physical Exam: General: NAD, A&Ox3 HEENT: Trach in place Lungs: CTA bilaterally Heart: RRR, S1S2 Abd: Soft, non-tender, non-distended. Normoactive bowel sounds Ext: Warm, well-perfused. 2+ DP/PT bilaterally Neuro: CN 2-12 intact CBCD WBC 11.6 K/mm3 (4.0-10.0) H 07/16/16 06:35 RBC 4.10 M/mm3 (4.00-5.60) 07/16/16 06:35 Hgb 10.7 GM/dL (11.7-16.9) L 07/16/16 06:35 Hct 32.9 % (35.4-49) L 07/16/16 06:35 MCV 80.2 fl (80-96) 07/16/16 06:35 MCHC 32.4 g/dl (32.0-35.9) 07/16/16 06:35 RDW 14.5 % (11.9-15.9) 07/16/16 06:35 Plt Count 337 K/MM3 (134-434) 07/16/16 06:35 MPV 7.7 fl (7.5-11.1) 07/16/16 06:35 CMP Sodium 132 mmol/L (136-145) L 07/17/16 07:00 Potassium 3.9 mmol/L (3.5-5.1) 07/17/16 07:00 Chloride 106 mmol/L (98-107) 07/17/16 07:00 Carbon Dioxide 27 mmol/L (21-32) 07/17/16 07:00 Anion Gap -1 (8-16) L 07/17/16 07:00 BUN 17 mg/dL (7-18) 07/17/16 07:00 Creatinine 1.0 mg/dL (0.7-1.3) 07/17/16 07:00 Creat Clearance w eGFR > 60 (>60) 07/16/16 06:35 Random Glucose 155 mg/dL (74-106) H D 07/17/16 07:00 Calcium 9.6 mg/dL (8.5-10.1) 07/17/16 07:00 Total Bilirubin 0.4 mg/dL (0.2-1.0) 07/16/16 06:35 AST 19 U/L (15-37) D 07/16/16 06:35 ALT 27 U/L (12-78) 07/16/16 06:35 Alkaline Phosphatase 135 U/L (45-117) H 07/16/16 06:35 Total Protein 6.4 g/dl (6.4-8.2) 07/16/16 06:35 Albumin 3.3 g/dl (3.4-5.0) L 07/16/16 06:35 CARDIAC ENZYMES Creatine Kinase 167 IU/L (39-308) D 07/17/16 07:00 Troponin I < 0.02 ng/ml (0.00-0.05) 07/17/16 07:00 Assessment: This is a 60 year old male with PMHx of asthma, COPD, DM, HTN, hyperlipidemia, CA s/p stenting x6, CHF, diverticulosis, pancreatitis, cervical nerve damage who presented to the ED with chest pain and pressure. Plan: 1) Cardiology: Chest pain - Trop negative - Continue Plavix - No ischemia on EKG - Holter monitor - Stress test reviewed - Appreciate cardiology consult Bradycardia - Resolved - Holter monitor reviewed Chronic diastolic heart failure - Currently euvolemic - Restart po Lasix - Continue home medication HTN - Remains elevated - Continue Ramipril - Added Verapamil 2) Pulmonary: COPD - Stable - Continue Brovana - Continue Turdoza - Continue Singulair - Continue Symbicort - Appreciate pulmonary consult 3) : LOVE - Resolved - Likely 2/2 hypoperfusion in setting of bradycardia - Continue to hold diuretics and ACEi - Continue to monitor BPH - Continue Flomax 4) Endocrine: DM - Continue own insulin pump 5) Psych: Chronic pain - Continue Dilaudid po - Appreciate pain management - Appreciate neuro consult - Appreciate psych consult 6) F/E/N: - Diabetic/sodium controlled diet - Monitor electrolytes 7) Prophylaxis: - Continue Heparin 5,000u sq tid - OOB ambulating 8) Dispo: - Requires continued inpatient care CODE STATUS: FULL CODE Visit type - Emergency Visit Emergency Visit: Yes ED Registration Date: 07/13/16 Care time: The patient presented to the Emergency Department on the above date and was hospitalized for further evaluation of their emergent condition. - New Patient This patient is new to me today: No - Critical Care Critical Care patient: No
[2016-07-17] MEDS: HYDROmorphone HCL 2 MG TABLET PO PRN ×2 (15:27→21:34)
[2016-07-17] MEDS: VERAPAMIL HCL 120 MG E.R. TABLET PO SCH ×2 (15:28→21:27)
--- NOTE | 2016-07-17 17:13 | PN ---
Progress Note (short form) - Note Progress Note: Renal Follow up for LOVE Pt seen and examined at the bedside no complaints Vital Signs Temperature 97.8 F 07/17/16 14:23 Pulse Rate 88 07/17/16 15:00 Respiratory Rate 20 07/17/16 15:00 Blood Pressure 161/104 07/17/16 15:00 O2 Sat by Pulse Oximetry (%) 96 07/17/16 08:00 Gen: Awake and Alert, NAD CVS: RRR, No M/R Lungs: CTA, no rales or wheeze Abd: soft NT/ND Ext: No edema CBC, BMP 07/16/16 06:35 07/17/16 07:00 Current Medications Aclidinium [place] (Tudorza -) 1 puff IH BID [facility] Last Admin: 07/17/16 10:08 Dose: 1 puff Albuterol Sulfate (Ventolin 0.083% Nebulizer Soln -) 1 amp NEB Q6H PRN PRN Reason: WHEEZING Last Admin: 07/15/16 18:10 Dose: 1 amp Arformoterol Tartrate (Brovana (Restricted To Pulmonology/Resp) -) 1 amp NEB BID [facility] Last Admin: 07/17/16 10:15 Dose: 1 amp Aspirin (Asa -) 81 mg PO DAILY [facility] Last Admin: 07/17/16 10:06 Dose: 81 mg Budesonide/Formoterol Fumarate (Symbicort 160/4.5mcg -) 1 puff IH BID [facility] Last Admin: 07/17/16 10:07 Dose: 1 puff Clopidogrel Bisulfate (Plavix -) 75 mg PO DAILY [facility] Last Admin: 07/17/16 10:05 Dose: 75 mg Finasteride (Proscar -) 5 mg PO DAILY [facility] Last Admin: 07/17/16 10:06 Dose: 5 mg Furosemide (Lasix -) 80 mg PO DAILY [facility] Gabapentin (Neurontin -) 600 mg PO BID [facility] Last Admin: 07/17/16 10:06 Dose: 600 mg Heparin Sodium (Porcine) (Heparin -) 5,000 unit SQ TID [facility] Last Admin: 07/17/16 15:23 Dose: 5,000 unit Hydromorphone HCl (Dilaudid -) 4 mg PO Q6H PRN PRN Reason: BACK PAIN Last Admin: 07/17/16 15:27 Dose: 4 mg Insulin Detemir (Levemir Vial) 10 units SQ AM [facility] Last Admin: 07/17/16 06:15 Dose: Not Given Isosorbide Mononitrate (Imdur -) 60 mg PO DAILY [facility] Last Admin: 07/17/16 10:06 Dose: 60 mg Mesalamine (Asacol Hd -) 800 mg PO TID [facility] Last Admin: 07/17/16 15:26 Dose: 800 mg Montelukast Sodium (Singulair -) 10 mg PO HS [facility] Last Admin: 07/16/16 21:29 Dose: 10 mg Ondansetron HCl (Zofran -) 4 mg PO TIDCM [facility] Last Admin: 07/17/16 11:55 Dose: 4 mg Pancrelipase (Creon Dr 6,000 Units Capsule) 1 cap PO TIDCM [facility] Last Admin: 07/17/16 11:55 Dose: 1 cap Pantoprazole Sodium (Protonix -) 40 mg PO DAILY [facility] Last Admin: 07/17/16 10:05 Dose: 40 mg Polyethylene Glycol (Miralax (For Daily Use) -) 17 gm PO BID [facility] Last Admin: 07/17/16 10:07 Dose: Not Given Ramipril (Altace -) 10 mg PO DAILY [facility] Last Admin: 07/17/16 11:55 Dose: 10 mg Rosuvastatin Calcium (Crestor -) 10 mg PO HS [facility] Last Admin: 07/16/16 21:29 Dose: 10 mg Senna/Docusate Sodium (Pericolace -) 2 tablet PO HS PRN PRN Reason: CONSTIPATION Tamsulosin HCl (Flomax -) 0.4 mg PO DAILY@0830 [facility] Last Admin: 07/17/16 10:05 Dose: 0.4 mg Tapentadol (Nucynta Er -) 150 mg PO DAILY [facility] Last Admin: 07/17/16 10:06 Dose: 150 mg Theophylline (Jerome-24) 300 mg PO DAILY [facility] Last Admin: 07/17/16 10:08 Dose: 300 mg Verapamil HCl (Calan Sr -) 120 mg PO BID [facility] Last Admin: 07/17/16 15:28 Dose: 120 mg A/P 60 year old Gentleman with PMhx of CHF (RHF/Diastolic Dyfunction), Hypertension , COPD, DM, CAD s/p RI/Stents, Cerival Nerve Damage who presented with 2 day history of chest pressure and found to have LOVE with BUN/Cr of 30/1.9 with baseline Cr of 0.8 -1.1. #Acute Kidney Injury Likely etiology is renal hypoperfusion resulting in pre-renal injury/ATN in setting of decreased cardiac output (bradycardia) and concurrent ACEi/Diuretics FeNa was 0.3% consistent with pre-renal injury Renal function at baseline restarted Ramipril yesterday, Cr stable Off Lasix however is evolemic at this time #Chest pressure Cardiology following #Hypertension Ramipril 10mg resumed yesterday Verapamil restarted #BPH Continue Flomax #Chronic Pain Pain control with opiods Az Nelson DO
[2016-07-17] MEDS: FUROSEMIDE 40 MG TABLET (FP) PO SCH (17:20)
[2016-07-17] MEDS: MONTELUKAST NA 10 MG TABLET PO SCH (21:21)
[2016-07-17] MEDS: ROSUVASTATIN CA 10 MG TABLET (FP) PO SCH (21:21)
[2016-07-18] MEDS: HYDROmorphone HCL 2 MG TABLET PO PRN (06:12)
[2016-07-18] MEDS: INSULIN DETEMIR 100 UNITS/ML MDV SQ SCH (06:12)
[2016-07-18] MEDS: HEPARIN NA (PORCINE) 5,000 UNITS/ML 1ML VIAL SQ SCH (06:13)
[2016-07-18] MEDS: MESALAMINE 800 MG TABLET.DR PO SCH (06:13)
[2016-07-18] MEDS ORDERED: PT OWN MED DRAWER 7, Y5N ONE ×3 (07:59→12:32)
[2016-07-18] MEDS: LIPASE/PROTEASE/AMYLASE 6,000 UNIT CAPSULE PO SCH ×2 (08:02→12:19)
[2016-07-18] MEDS: TAMSULOSIN HCL 0.4 MG CAP.ER.24H (FP) PO SCH (08:02)
[2016-07-18] MEDS: ONDANSETRON 4 MG TABLET PO SCH ×2 (08:02→12:19)
[2016-07-18 09:15] LABS: MCHC 32.3 g/dl (32.0-35.9); MEAN CELL VOLUME 80.5 fl (80-96); MEAN PLT VOLUME 7.6 fl (7.5-11.1); PLATELET COUNT 327 K/MM3 (134-434); RDW 14.2 % (11.9-15.9); WHITE BLOOD COUNT 10.8 K/mm3 (4.0-10.0)
--- NOTE | 2016-07-18 09:21 | PN ---
Physical Exam: SUBJECTIVE: Patient seen and examined OBJECTIVE: Vital Signs Period Temp Pulse Resp BP Sys/Gates Pulse Ox Last 24 Hr 97.8 F-99.1 F 79-104 20-20 131-161/79-105 100 GENERAL: The patient is awake, alert, and fully oriented, in no acute distress. HEAD: Normal with no signs of trauma. EYES: PERRL, extraocular movements intact, sclera anicteric, conjunctiva clear. No ptosis. ENT: Ears normal, nares patent, oropharynx clear without exudates, moist mucous membranes. NECK: Trachea midline, full range of motion, supple. LUNGS: Breath sounds equal, clear to auscultation bilaterally, no wheezes, no crackles, no accessory muscle use. HEART: Regular rate and rhythm, S1, S2 without murmur, rub or gallop. ABDOMEN: Soft, nontender, nondistended, normoactive bowel sounds, no guarding, no rebound, no hepatosplenomegaly, no masses. EXTREMITIES: 2+ pulses, warm, well-perfused, no edema. NEUROLOGICAL: Cranial nerves II through XII grossly intact. Normal speech, gait not observed. PSYCH: Normal mood, normal affect. SKIN: Warm, dry, normal turgor, no rashes or lesions noted Laboratory Results - last 24 hr 07/17/16 07/17/16 07/17/16 07:00 07:00 11:57 WBC RBC Hgb Hct MCV MCHC RDW Plt Count MPV POC Glucometer 176 Creatine Kinase 167 D Creatine Kinase Index 5.2 H CK-MB (CK-2) 8.63 H CK-MB (CK-2) Rel Index Cancelled Troponin I < 0.02 07/17/16 07/17/16 07/18/16 17:23 21:30 05:43 WBC RBC Hgb Hct MCV MCHC RDW Plt Count MPV POC Glucometer 166 183 153 Creatine Kinase Creatine Kinase Index CK-MB (CK-2) CK-MB (CK-2) Rel Index Troponin I 07/18/16 08:30 WBC 10.8 H RBC 4.45 Hgb 11.6 L Hct 35.9 MCV 80.5 MCHC 32.3 RDW 14.2 Plt Count 327 MPV 7.6 POC Glucometer Creatine Kinase Creatine Kinase Index CK-MB (CK-2) CK-MB (CK-2) Rel Index Troponin I Active Medications Generic Name Dose Route Start Last Admin Trade Name Freq PRN Reason Stop Dose Admin Aclidinium [place] 1 puff 07/14/16 10:00 07/17/16 21:24 Tudorza - IH 1 puff BID MARK Administration Albuterol Sulfate 1 amp 07/14/16 00:04 07/15/16 18:10 Ventolin 0.083% Nebulizer Soln - NEB 1 amp Q6H PRN Administration WHEEZING Arformoterol Tartrate 1 amp 07/14/16 10:00 07/17/16 21:31 Brovana (Restricted To Pulmonology/Resp) - NEB 1 amp BID MARK Administration Aspirin 81 mg 07/14/16 10:00 07/17/16 10:06 Asa - PO 81 mg DAILY MARK Administration Budesonide/Formoterol Fumarate 1 puff 07/14/16 10:00 07/17/16 21:24 Symbicort 160/4.5mcg - IH 1 puff BID MARK Administration Clopidogrel Bisulfate 75 mg 07/14/16 10:00 07/17/16 10:05 Plavix - PO 75 mg DAILY MARK Administration Finasteride 5 mg 07/14/16 10:00 07/17/16 10:06 Proscar - PO 5 mg DAILY MARK Administration Furosemide 80 mg 07/17/16 15:45 07/17/16 17:20 Lasix - PO 80 mg DAILY MARK Administration Gabapentin 600 mg 07/14/16 10:00 07/17/16 21:21 Neurontin - PO 600 mg BID MARK Administration Heparin Sodium (Porcine) 5,000 unit 07/14/16 06:00 07/18/16 06:13 Heparin - SQ 5,000 unit TID MARK Administration Hydromorphone HCl 4 mg 07/14/16 00:04 07/18/16 06:12 Dilaudid - PO 4 mg Q6H PRN Administration BACK PAIN Insulin Detemir 10 units 07/16/16 07:00 07/18/16 06:12 Levemir Vial SQ Not Given AM MARK Isosorbide Mononitrate 60 mg 07/14/16 10:00 07/17/16 10:06 Imdur - PO 60 mg DAILY [facility] Administration Mesalamine 800 mg 07/15/16 14:00 07/18/16 06:13 Asacol Hd - PO 800 mg TID MARK Administration Montelukast Sodium 10 mg 07/14/16 22:00 07/17/16 21:21 Singulair - PO 10 mg HS MARK Administration Ondansetron HCl 4 mg 07/14/16 08:00 07/18/16 08:02 Zofran - PO 4 mg TIDCM MARK Administration Pancrelipase 1 cap 07/14/16 08:00 07/18/16 08:02 Stacy Hackett 6,000 Units Capsule PO 1 cap TIDCM MARK Administration Pantoprazole Sodium 40 mg 07/14/16 10:00 07/17/16 10:05 Protonix - PO 40 mg DAILY MARK Administration Polyethylene Glycol 17 gm 07/14/16 10:00 07/17/16 21:22 Miralax (For Daily Use) - PO Not Given BID MARK Ramipril 10 mg 07/17/16 10:15 07/17/16 11:55 Altace - PO 10 mg DAILY [facility] Administration Rosuvastatin Calcium 10 mg 07/14/16 22:00 07/17/16 21:21 Crestor - PO 10 mg HS MARK Administration Senna/Docusate Sodium 2 tablet 07/14/16 01:23 Pericolace - PO HS PRN CONSTIPATION Tamsulosin HCl 0.4 mg 07/14/16 08:30 07/18/16 08:02 Flomax - PO 0.4 mg DAILY@0830 [facility] Administration Tapentadol 150 mg 07/14/16 10:00 07/17/16 10:06 Nucynta Er - PO 150 mg DAILY [facility] Administration Theophylline 300 mg 07/14/16 10:00 07/17/16 10:08 Jerome-24 PO 300 mg DAILY [facility] Administration Verapamil HCl 120 mg 07/17/16 15:15 07/17/16 21:27 Calan Sr - PO 120 mg BID MARK Administration ASSESSMENT/PLAN:
[2016-07-18 09:36] LABS: CALCIUM 8.8 mg/dL (8.5-10.1); CREATININE 1.2 mg/dL (0.7-1.3)
[2016-07-18] MEDS: ARFORMOTEROL TARTRATE 15 MCG/2 ML VIAL NEB SCH (09:45)
[2016-07-18] MEDS: CLOPIDOGREL BISULFATE 75 MG TABLET (FP) PO SCH (09:47)
[2016-07-18] MEDS: RAMIPRIL 5 MG CAPSULE (FP) PO SCH (09:48)
[2016-07-18] MEDS: TAPENTADOL HCL 50 MG TAB.ER.12H PO SCH (09:48)
[2016-07-18] MEDS: ISOSORBIDE MONONITRATE 60 MG TAB.SR.24H (FP) PO SCH (09:48)
[2016-07-18] MEDS: FINASTERIDE 5 MG TABLET (FP) PO SCH (09:48)
[2016-07-18] MEDS: FUROSEMIDE 40 MG TABLET (FP) PO SCH (09:48)
[2016-07-18] MEDS: ASPIRIN 81 MG CHEWABLE TABLETS PO SCH (09:49)
[2016-07-18] MEDS: GABAPENTIN 300 MG CAPSULE (FP) PO SCH (09:49)
[2016-07-18] MEDS: POLYETHYLENE GLYCOL 3350 119 GM BTL PO SCH (09:49)
[2016-07-18] MEDS: PANTOPRAZOLE 40 MG TABLET (FP) PO SCH (09:49)
[2016-07-18] MEDS: ACLIDINIUM BROMIDE 400 MCG/INH AERO.POWD IH SCH (09:50)
[2016-07-18] MEDS: BUDESONIDE/FORMETEROL FUMARATE 160/4.5 mcg INHALER IH SCH (09:50)
[2016-07-18] MEDS: THEOPHYLLINE ANHYDROUS 100 MG CAP.ER.24H PO SCH (09:51)
[2016-07-18 09:52] VITALS: BP 147/69; TEMP 98.7
[2016-07-18] MEDS: VERAPAMIL HCL 120 MG E.R. TABLET PO SCH (09:52)
--- NOTE | 2016-07-18 10:15 | PN ---
Progress Note, Physician - Current Medication List Current Medications: Active Medications Aclidinium [place] (Tudorza -) 1 puff IH BID [facility] Last Admin: 07/18/16 09:50 Dose: 1 puff Albuterol Sulfate (Ventolin 0.083% Nebulizer Soln -) 1 amp NEB Q6H PRN PRN Reason: WHEEZING Last Admin: 07/15/16 18:10 Dose: 1 amp Arformoterol Tartrate (Brovana (Restricted To Pulmonology/Resp) -) 1 amp NEB BID [facility] Last Admin: 07/17/16 21:31 Dose: 1 amp Aspirin (Asa -) 81 mg PO DAILY [facility] Last Admin: 07/18/16 09:49 Dose: 81 mg Budesonide/Formoterol Fumarate (Symbicort 160/4.5mcg -) 1 puff IH BID [facility] Last Admin: 07/18/16 09:50 Dose: 1 puff Clopidogrel Bisulfate (Plavix -) 75 mg PO DAILY [facility] Last Admin: 07/18/16 09:47 Dose: 75 mg Finasteride (Proscar -) 5 mg PO DAILY [facility] Last Admin: 07/18/16 09:48 Dose: 5 mg Furosemide (Lasix -) 80 mg PO DAILY [facility] Last Admin: 07/18/16 09:48 Dose: 80 mg Gabapentin (Neurontin -) 600 mg PO BID [facility] Last Admin: 07/18/16 09:49 Dose: 600 mg Heparin Sodium (Porcine) (Heparin -) 5,000 unit SQ TID [facility] Last Admin: 07/18/16 06:13 Dose: 5,000 unit Hydromorphone HCl (Dilaudid -) 4 mg PO Q6H PRN PRN Reason: BACK PAIN Last Admin: 07/18/16 06:12 Dose: 4 mg Insulin Detemir (Levemir Vial) 10 units SQ AM [facility] Last Admin: 07/18/16 06:12 Dose: Not Given Isosorbide Mononitrate (Imdur -) 60 mg PO DAILY [facility] Last Admin: 07/18/16 09:48 Dose: 60 mg Mesalamine (Asacol Hd -) 800 mg PO TID [facility] Last Admin: 07/18/16 06:13 Dose: 800 mg Montelukast Sodium (Singulair -) 10 mg PO HS [facility] Last Admin: 01/06/17 21:21 Dose: 10 mg Ondansetron HCl (Zofran -) 4 mg PO TIDCM [facility] Last Admin: 07/18/16 08:02 Dose: 4 mg Pancrelipase (Creon Dr 6,000 Units Capsule) 1 cap PO TIDCM [facility] Last Admin: 07/18/16 08:02 Dose: 1 cap Pantoprazole Sodium (Protonix -) 40 mg PO DAILY [facility] Last Admin: 07/18/16 09:49 Dose: 40 mg Polyethylene Glycol (Miralax (For Daily Use) -) 17 gm PO BID [facility] Last Admin: 07/18/16 09:49 Dose: 17 gm Ramipril (Altace -) 10 mg PO DAILY [facility] Last Admin: 07/18/16 09:48 Dose: 10 mg Rosuvastatin Calcium (Crestor -) 10 mg PO HS [facility] Last Admin: 07/17/16 21:21 Dose: 10 mg Senna/Docusate Sodium (Pericolace -) 2 tablet PO HS PRN PRN Reason: CONSTIPATION Tamsulosin HCl (Flomax -) 0.4 mg PO DAILY@0830 [facility] Last Admin: 07/18/16 08:02 Dose: 0.4 mg Tapentadol (Nucynta Er -) 150 mg PO DAILY [facility] Last Admin: 07/18/16 09:48 Dose: 150 mg Theophylline (Jerome-24) 300 mg PO DAILY [facility] Last Admin: 07/18/16 09:51 Dose: 300 mg Verapamil HCl (Calan Sr -) 120 mg PO BID [facility] Last Admin: 07/18/16 09:52 Dose: 120 mg - Objective Vital Signs: Vital Signs Temperature 98.7 F 07/18/16 09:00 Pulse Rate 77 07/18/16 09:00 Respiratory Rate 19 07/18/16 09:00 Blood Pressure 147/69 07/18/16 09:00 O2 Sat by Pulse Oximetry (%) 98 07/18/16 09:00 Eyes: Yes: WNL, Conjunctiva Clear, EOM Intact HENT: Yes: WNL, Atraumatic, Normocephalic Neck: Yes: WNL, Supple, Trachea Midline Cardiovascular: Yes: WNL, Regular Rate and Rhythm Respiratory: Yes: WNL, Regular, CTA Bilaterally Gastrointestinal: Yes: WNL, Normal Bowel Sounds Genitourinary: Yes: WNL Musculoskeletal: Yes: WNL Extremities: Yes: WNL Edema: No Integumentary: Yes: WNL Neurological: Yes: WNL, Alert, Oriented ...Motor Strength: WNL Psychiatric: Yes: WNL Labs: CBC, BMP 07/18/16 08:30 07/18/16 08:30 INR, PTT INR 1.18 (0.82-1.09) H 07/13/16 18:26 Assessment/Plan Chronic atypical chest pain Known CAD REC: Stress findings and sx discussed with patient's private technology support analyst, Dr. Elaine. Given the atypical nature of sx and chronicity of his complaints and lack of significant ischemia on stress, medical Rx is most appropriate at this time. No further inpatient evaluation is planned and he should follow up closely w Dr. Elaine in office next week.
[2016-07-18 11:23] VITALS: PULSE 79
--- NOTE | 2016-07-20 17:05 | DS ---
Physical Exam: SUBJECTIVE: Patient seen and examined OBJECTIVE: PHYSICAL EXAM GENERAL: The patient is awake, alert, and fully oriented, in no acute distress. HEAD: Normal with no signs of trauma. EYES: PERRL, extraocular movements intact, sclera anicteric, conjunctiva clear. ENT: Ears normal, nares patent, oropharynx clear without exudates, moist mucous membranes. NECK: Trachea midline, full range of motion, supple. LUNGS: Breath sounds equal, clear to auscultation bilaterally, no wheezes, no crackles, no accessory muscle use. HEART: Regular rate and rhythm, S1, S2 without murmur, rub or gallop. ABDOMEN: Soft, nontender, nondistended, normoactive bowel sounds, no guarding, no rebound, no hepatosplenomegaly, no masses. EXTREMITIES: 2+ pulses, warm, well-perfused, no edema. NEUROLOGICAL: Cranial nerves II through XII grossly intact. Normal speech, gait not observed. PSYCH: Normal mood, normal affect. SKIN: Warm, dry, normal turgor, no rashes or lesions noted. LABS HOSPITAL COURSE: Date of Admission:07/13/16 Date of Discharge: 07/20/16 Minutes to complete discharge: 35 Discharge Summary Reason For Visit: CHEST PAIN, C.O.B. RENAL INSUFF. Current Active Problems ASHD (arteriosclerotic heart disease) (Acute) Acute on chronic diastolic (congestive) heart failure (Acute) Acute on chronic systolic right heart failure (Acute) GRACIE (obstructive sleep apnea) (Acute) Pulmonary hypertension (Acute) Type 2 diabetes mellitus with diabetic neuropathic arthropathy (Acute) Condition: Stable - Instructions Diet, Activity, Other Instructions: A prescription has been sent to your pharmacy for Verapamil which is a blood pressure medication. Take this medication as directed. A prescription has also been sent for Creon. Please return to the ED with new, persistent, or worsening symptoms. Please follow-up with providers as indicated. Referrals: Randy West MD [Staff Physician] - (Please follow-up with cardiology within 2-3 days for further management of your coronary artery disease. Please stop taking your verapamil until you follow-up with your claims customer service representative. ) Markus Knox MD [Primary Care Provider] - (Please follow-up with your pcp within 2-3 days) Omari Boles MD [Staff Physician] - 1 Week Az Nelson MD [Staff Physician] - (Please follow-up with nephrology within 1 week for further evaluation of your kidneys) Kadie Singh MD [Staff Physician] - (Please follow-up with neurology within 1 week for further management of your chronic back pain) Disposition: VNS/HOME HEALTH CARE - Home Medications Comprehensive Discharge Medication List: Ambulatory Orders Acetaminophen [Tylenol] 650 mg PO DAILY 04/23/16 Albuterol 0.083% Nebulizer Elena [Ventolin 0.083% Nebulizer Soln -] 1 neb NEB QID 04/23/16 Arformoterol Tartrate [Brovana] 15 mcg IH BID 04/23/16 Aspirin [ASA -] 81 mg PO DAILY 04/23/16 Budesonide/Formeterol Fumarate [SYMBICORT 160/4.5mcg -] 1 inh PO BID 04/23/16 Clopidogrel Bisulfate [Plavix -] 75 mg PO DAILY 04/23/16 Diazepam [Valium] 5 mg PO DAILY 04/23/16 Docusate Sodium [Colace -] 100 mg PO DAILY 04/23/16 Finasteride 5 mg PO DAILY 04/23/16 Isosorbide Mononitrate [Imdur -] 60 mg PO DAILY 04/23/16 Mesalamine [Asacol HD -] 800 mg PO TID 04/23/16 Montelukast Na [Singulair -] 10 mg PO HS 04/23/16 Ondansetron [Zuplenz] 4 mg PO QID 04/23/16 Pantoprazole Sodium [Protonix] 40 mg PO DAILY 04/23/16 Polyethylene Glycol 3350 [Miralax 119 gm Btl -] 17 gm PO BID 04/23/16 Silver Sulfadiazine 1% Top Cr [Silvadene -] 1 applic TP DAILY 04/23/16 Sucralfate [Carafate] 10 ml PO QID 04/23/16 Tamsulosin HCl 0.4 mg PO DAILY 04/23/16 Tiotropium [place] [Spiriva] 1 inh PO DAILY 04/23/16 Gabapentin [Neurontin -] 200 mg PO TID capsule 04/25/16 Insulin (Levemir) [Levemir Vial] 10 units SQ AM ml 04/25/16 Insulin Sliding Scale [Novolog Vial Sliding Scale -] 1 vial SQ ACHS units 04/25 Hydromorphone HCl [Dilaudid] 4 mg PO QID PRN #20 tablet MDD 4 04/28/16 Methylnaltrexone [place] [Relistor -] 12 mg SQ DAILY #10 kit 04/28/16 Insulin Pump Controller [Snap Insulin Pump Controller] 1 SQ ASDIR 07/15/16 Ramipril [Altace] 10 mg PO 07/16/16 Tapentadol ER [Nucynta ER -] 150 mg PO DAILY #0 tab.er.12h MDD 300 07/16/16 Theophylline Anhydrous [Jerome-24] 300 mg PO DAILY #90 cap.er.24h 07/16/16 Furosemide [Lasix -] 80 mg PO DAILY tablet 07/18/16 Lipase/Protease/Amylase [Stacy Hackett 6,000 Units Capsule] 1 cap PO TIDCM #90 capsule. 07/18/16 Verapamil HCl ER [Calan Sr -] 120 mg PO BID #60 tablet.er 07/18/16
== END 2016-07-18 12:26 | disposition home health service (06) | DRG 568 ==
LOC: JER 17:52 → JERBED 22:08 → J6S 07-14 12:21
PROVIDERS: ADMIT Internal Medicine; ATTEND Nurse Practitioner Acute Care
DX: N17.0 Acute kidney failure with tubular necrosis (principal); I50.33 Acute on chronic diastolic (congestive) heart failure; E11.42 Type 2 diabetes mellitus with diabetic polyneuropathy; J44.1 Chronic obstructive pulmonary disease with (acute) exacerbation; I11.0 Hypertensive heart disease with heart failure; F19.20 Other psychoactive substance dependence, uncomplicated; G62.89 Other specified polyneuropathies; R07.9 Chest pain, unspecified; Z79.4 Long term (current) use of insulin; J45.909 Unspecified asthma, uncomplicated; I25.10 Atherosclerotic heart disease of native coronary artery without angina pectoris; Z95.5 Presence of coronary angioplasty implant and graft; I25.2 Old myocardial infarction; E78.00 Pure hypercholesterolemia, unspecified; R00.1 Bradycardia, unspecified; I27.2 Other secondary pulmonary hypertension; N40.0 Benign prostatic hyperplasia without lower urinary tract symptoms; F32.9 Major depressive disorder, single episode, unspecified; G89.29 Other chronic pain; M54.2 Cervicalgia; G47.33 Obstructive sleep apnea (adult) (pediatric); Z93.0 Tracheostomy status; K86.1 Other chronic pancreatitis; Z98.1 Arthrodesis status
CPT/HCPCS: 36415; 71010-TC; 76775-TC; 78452-TC; 80048; 80053; 80198; 81003; 81015; 82436; 82550; 82553; 82570; 83036; 83735; 83880; 83930; 84100; 84133; 84156; 84300; 84484; 84540; 85025; 85027; 85610; 93005; 93010; 93017; 93225; 93226; 94640; 99285-25; A9502; C1887; J1644

== ENCOUNTER 2016-09-23 18:45 | Emergency (ER) | payer OTHER ==
[2016-09-23 19:05] VITALS: BP 129/91; PULSE 92; TEMP 98; BMI 16.5
--- NOTE | 2016-09-23 19:10 | PDOC ---
Rapid Medical Evaluation Time Seen by Provider: 09/23/16 18:49 Medical Evaluation: Allergies Allergy/AdvReac Type Severity Reaction Status Date / Time shellfish derived Allergy Severe Verified 07/13/16 17:59 Tetracyclines Allergy Severe Verified 07/13/16 17:59 09/23/16 19:02 I have performed a brief in-person evaluation of this patient. Mr. Cohen zheng a history of DM, HTN, HLD, CAD s/p MA and stent x 6, Asthma/COPD s /p trach, pancreatitis, h/o nerve damage presents to the ER with a complaint of headache which he rates 8/10, it began at approximately 2pm when he awoke from sleep. On Aspirin and Plavix. He states he has not experienced a headache like this before He states he also has severe left sided neck pain He called his Medical Assistant Supervisor Dr Arias who told him to come to the ER for a CT The vision in his right eye was blurred when his headache began Pt also complained of midsternal chest pain, which he describes as "Pinging", no radiation to the back Pertinent physical exam findings: One examination, A&O x 3 Moving all extremities Weak hand machine bobbin winder bilaterally Holding left neck Pt is going to the main ER now Orders per treating attending The patient will proceed to the ED for further evaluation. 09/23/16 19:13
--- NOTE | 2016-09-23 19:52 | PDOC ---
History of Present Illness - General History Source: Patient Exam Limitations: No Limitations - History of Present Illness Initial Comments: 09/23/16 20:15 The patient is a 60 year old male with significant past medical history of diabetes, neuropathy, hypertension, hyperlipidemia, CAD s/p NV and stents x6, CHF, asthma/COPD s/p trach, pancreatitis, diverticulitis, and arthritis who presents to the ED with midsternal chest pain that began today. Patient describes his chest pain as nonradiating and pressure-like sensation with associated nausea, but no vomiting. He denies lightheadedness, diaphoresis, SOB , shoulder pain, arm pain, palpitations, or leg swelling. As per RME, pt is on aspirin and plavix. He also reports increasing pain to his neck and headache. Patient describes pain as a 10/10 that shoots up both sides of the neck, predominantly on the left, and goes up to the head. He states having chronic headache and neck pain secondary to neuropathy, arthritis, and hardware that is placed in his neck, however his pain has been more persistent than usual and the medications that he takes has not provided any relief. Patient took his dilaudid earlier this morning, but nothing for his neuropathy. He also has complaints of a dry cough since yesterday. Patient contacted his digital advertising specialist, Dr. Arias, who told him to come into the ER for further evaluation and CT. The patient denies fever, chills, dizziness, abdominal pain, and diarrhea. Allergies: Tetracyclines Social History: Denies tobacco use. No alcohol or drug use reported. Family History: mother ( age 59) had CHF and DM. Father ( young ) had mesothelioma. Brother with prostate CA. Sister s/p breast CA Past Surgical History: s/p stents x6. s/p trach. Cervical spine surgery due to 3 herniated discs s/p accidental injury (a ceiling fell on him) with resulting nerve injury and chronic pain. lumbar sx. L hand soft tissue repair. PCP: Dr. Markus Knox Cardio: Dr. Markus Arias <Rosalina Lea - Last Filed: 09/23/16 23:11> - General History Source: Patient <Newton Hauser - Last Filed: 09/23/16 23:17> - General Chief Complaint: Chest Pain Stated Complaint: PCP SENT/CHEST PAIN Time Seen by Provider: 09/23/16 18:49 Past History <Rosalina Lea - Last Filed: 09/23/16 23:11> - Past Medical History Anemia: No Asthma: Yes Cancer: No Cardiac Disorders: Yes (NV, stents x 6, CAD) CVA: No COPD: Yes (trach,) CHF: Yes Dementia: No Diabetes: Yes GI Disorders: Yes (H-Pylori, Diverticulosis, Colon Polyps) Disorders: No HTN: Yes Hypercholesterolemia: Yes Liver Disease: No Seizures: No Thyroid Disease: No - Surgical History Abdominal Surgery: No Appendectomy: No Cardiac Surgery: Yes (STENTS X6) Cholecystectomy: No Lung Surgery: No Neurologic Surgery: Yes (nerve damage from accident - CERVICAL SURGERY) Orthopedic Surgery: Yes (LUMBAR SURGERY, L HAND SOFT TISSUE REPAIR) - Immunization History Immunization Up to Date: Yes - Psycho/Social/Smoking Cessation Hx Anxiety: No Suicidal Ideation: No Smoking History: Never smoked Have you smoked in the past 12 months: No Number of Cigarettes Smoked Daily: 0 Hx Alcohol Use: No Drug/Substance Use Hx: No Substance Use Type: None Hx Substance Use Treatment: No <Newton Hauser - Last Filed: 09/23/16 23:17> - Past Medical History Allergies/Adverse Reactions: Allergies Allergy/AdvReac Type Severity Reaction Status Date / Time shellfish derived Allergy Severe Verified 09/23/16 19:06 Tetracyclines Allergy Severe Verified 09/23/16 19:06 Home Medications: Ambulatory Orders Acetaminophen [Tylenol] 650 mg PO DAILY 04/23/16 Albuterol 0.083% Nebulizer Elena [Ventolin 0.083% Nebulizer Soln -] 1 neb NEB QID 04/23/16 Arformoterol Tartrate [Brovana] 15 mcg IH BID 04/23/16 Aspirin [ASA -] 81 mg PO DAILY 04/23/16 Budesonide/Formeterol Fumarate [SYMBICORT 160/4.5mcg -] 1 inh PO BID 04/23/16 Clopidogrel Bisulfate [Plavix -] 75 mg PO DAILY 04/23/16 Diazepam [Valium] 5 mg PO DAILY 04/23/16 Docusate Sodium [Colace -] 100 mg PO DAILY 04/23/16 Finasteride 5 mg PO DAILY 04/23/16 Isosorbide Mononitrate [Imdur -] 60 mg PO DAILY 04/23/16 Mesalamine [Asacol HD -] 800 mg PO TID 04/23/16 Montelukast Na [Singulair -] 10 mg PO HS 04/23/16 Ondansetron [Zuplenz] 4 mg PO QID 04/23/16 Pantoprazole Sodium [Protonix] 40 mg PO DAILY 04/23/16 Polyethylene Glycol 3350 [Miralax 119 gm Btl -] 17 gm PO BID 04/23/16 Silver Sulfadiazine 1% Top Cr [Silvadene -] 1 applic TP DAILY 04/23/16 Sucralfate [Carafate] 10 ml PO QID 04/23/16 Tamsulosin HCl 0.4 mg PO DAILY 04/23/16 Tiotropium [place] [Spiriva] 1 inh PO DAILY 04/23/16 Insulin (Levemir) [Levemir Vial] 10 units SQ AM ml 04/25/16 Insulin Sliding Scale [Novolog Vial Sliding Scale -] 1 vial SQ ACHS units 04/25 Hydromorphone HCl [Dilaudid] 4 mg PO QID PRN #20 tablet MDD 4 04/28/16 Methylnaltrexone [place] [Relistor -] 12 mg SQ DAILY #10 kit 04/28/16 Insulin Pump Controller [Snap Insulin Pump Controller] 1 unit SQ ASDIR 07/15/16 Ramipril [Altace] 10 mg PO DAILY 07/16/16 Tapentadol ER [Nucynta ER -] 150 mg PO DAILY #0 tab.er.12h MDD 300 07/16/16 Theophylline Anhydrous [Jerome-24] 300 mg PO DAILY #90 cap.er.24h 07/16/16 Furosemide [Lasix -] 80 mg PO DAILY tablet 07/18/16 Lipase/Protease/Amylase [Stacy Hackett 6,000 Units Capsule] 1 cap PO TIDCM #90 capsule. 07/18/16 Verapamil HCl ER [Calan Sr -] 120 mg PO BID #60 tablet.er 07/18/16 Cyclobenzaprine HCl [Flexeril 10 mg] 10 mg PO BID PRN #60 tablet MDD 20 Gabapentin [Neurontin -] 200 mg PO TID 09/23/16 Review of Systems - Review of Systems Able to Perform ROS?: Yes Comments:: 09/23/16 20:16 CONSTITUTIONAL: Absent: fever, chills, diaphoresis, generalized weakness, malaise, loss of appetite HEENT: +neck pain Absent: rhinorrhea, nasal congestion, throat pain, throat swelling, difficulty swallowing, mouth swelling, ear pain, eye pain, visual Changes CARDIOVASCULAR: +midsternal chest pain Absent: syncope, palpitations, irregular heart rate, lightheadedness, peripheral edema RESPIRATORY: +cough Absent: shortness of breath, dyspnea with exertion, orthopnea, wheezing, stridor, hemoptysis GASTROINTESTINAL: +nausea Absent: abdominal pain, abdominal distension, vomiting, diarrhea, constipation, melena, hematochezia GENITOURINARY: Absent: dysuria, frequency, urgency, hesitancy, hematuria, flank pain, genital pain MUSCULOSKELETAL: Absent: myalgia, arthralgia, joint swelling SKIN: Absent: rash, itching, pallor NEUROLOGIC: +headache Absent: focal weakness or paresthesias, dizziness, unsteady gait, seizure, mental status changes, bladder or bowel incontinence PSYCHIATRIC: Absent: anxiety, depression, suicidal or homicidal ideation, hallucinations. <Rosalina Lea - Last Filed: 09/23/16 23:11> *Physical Exam - Vital Signs Last Vital Signs Temp Pulse Resp BP Pulse Ox 98.0 F 92 H 18 129/91 98 09/23/16 19:02 09/23/16 19:02 09/23/16 19:02 09/23/16 19:02 09/23/16 19:42 - Physical Exam Comments: 09/23/16 20:23 GENERAL: Well developed, well nourished. Awake and alert. No acute distress. HEENT: Normocephalic, atraumatic. PERRLA, EOMI. No conjunctival pallor. Sclera are non- icteric. Moist mucous membranes. Oropharynx is clear. NECK: Supple. Decreased ROM secondary to pain. No JVD. Carotid pulses 2+ and symmetric , without bruits. No thyromegaly. No lymphadenopathy. Trach in placed, clean and dry, no surrounding erythema or drainage. CARDIOVASCULAR: Regular rate and rhythm. No murmurs, rubs, or gallops. Distal pulses are 2+ and symmetric. PULMONARY: No evidence of respiratory distress. Decreased breath sounds. Bilateral course wheezing. ABDOMINAL: Soft. Non-tender. Non-distended. No rebound or guarding. No organomegaly. Normoactive bowel sounds. MUSCULOSKELETAL Normal range of motion at all joints. No bony deformities or tenderness. No CVA tenderness. EXTREMITIES: No cyanosis. No clubbing. No edema. No calf tenderness. SKIN: Warm and dry. Normal capillary refill. No rashes. No jaundice. NEUROLOGICAL: Alert, awake, appropriate. Cranial nerves 2-12 intact. Moving all extremities. No gross focal neurological deficits. PSYCHIATRIC: Cooperative. Good eye contact. Appropriate mood and affect. <Rosalina Lea - Last Filed: 09/23/16 23:11> - Vital Signs Last Vital Signs Temp Pulse Resp BP Pulse Ox 98.0 F 92 H 18 129/91 98 09/23/16 19:02 09/23/16 19:02 09/23/16 19:02 09/23/16 19:02 09/23/16 19:42 <Newton Hauser - Last Filed: 09/23/16 23:17> Heart Score/ECG Review - ECG Impressions Comment:: 09/23/16 21:19 Sinus rhythm with premature atrial complexes @89bpm Otherwise normal ECG <Rosalina Lea - Last Filed: 09/23/16 23:11> ED Treatment Course - LABORATORY CBC & Chemistry Diagram: 09/23/16 20:30 09/23/16 21:20 <Rosalina Lea - Last Filed: 09/23/16 23:11> - LABORATORY CBC & Chemistry Diagram: 09/23/16 20:30 09/23/16 21:20 <Newton Hauser - Last Filed: 09/23/16 23:17> Medical Decision Making - Medical Decision Making 09/23/16 22:[address] Markus Knox (via answering service) at 22:17 Awaiting call back 09/23/16 22:52 Patient's case discussed with Dr. Knox. <Rosalina Lea - Last Filed: 09/23/16 23:11> - Medical Decision Making 09/23/16 23:15 Dr. Hauser: The scribe's documentation has been prepared under my direction and personally reviewed by me in its entirery. I confirm that the note above accurately reflects all work, treatment, procedures, and medical decision making performed by me. All studies including CT scan and chest xray are negative for any acute pathology. blood work as well are normal. Pt feels better. Spoke to pt Dr. Colin. Pt will be discharged. <Newton Hauser - Last Filed: 09/23/16 23:17> *DC/Admit/Observation/Transfer - Attestations Scribe Attestion: 09/23/16 20:17 Documentation prepared by Rosalina Lea, acting as medical technologist for Newton Hauser MD <Rosalina Lea - Last Filed: 09/23/16 23:11> - Discharge Dispostion Admit: No <Newton Hauser - Last Filed: 09/23/16 23:17> Diagnosis at time of Disposition: Cervical radiculopathy, Asthma exacerbation, COPD (chronic obstructive pulmonary disease) - Discharge Dispostion Disposition: HOME Condition at time of disposition: Stable - Prescriptions Prescriptions: Cyclobenzaprine HCl [Flexeril 10 mg] 10 mg PO BID PRN #60 tablet MDD 20 PRN Reason: Moderate Pain - Referrals Referrals: Markus Knox MD [Primary Care Provider] - - Patient Instructions Printed Discharge Instructions: DI for Chronic Obstructive Pulmonary Disease, DI for Asthma -- Adult, DI for Chest Pain
[2016-09-23] MEDS ORDERED: MAGNESIUM SULF 50% (8.12 MEQ/2 ML-1 GM VIAL) IVPB ONE (19:56)
[2016-09-23] MEDS ORDERED: ALBUTEROL SO4 2.5/IPRATROPIUM 0.5 INH SOL 3 ML VIAL.NEB. NEB STA ×2 (19:56→23:10)
[2016-09-23] MEDS ORDERED: methylPREDNISolone NA SUCC 125 MG/2 ML VIAL IVPB ONE (19:56)
[2016-09-23] MEDS ORDERED: ONDANSETRON 4 MG/2 ML VIAL IVPUSH STA (19:57)
[2016-09-23] MEDS ORDERED: HYDROmorphone HCL CARPU-JECT 2 MG/1 ML DISP.SYRIN IVPUSH ONE ×2 (19:57→21:38)
[2016-09-23 20:45] LABS: BASOPHIL 1.1 % (0-2.0); EOSINOPHIL 1.4 % (0-4.5); MCH 25.9 pg (25.7-33.7); MCHC 32.7 g/dl (32.0-35.9); MEAN CELL VOLUME 79.3 fl (80-96); MEAN PLT VOLUME 8.2 fl (7.5-11.1); NEUTROPHILS 38.8 % (42.8-82.8); RDW 15.5 % (11.9-15.9); WHITE BLOOD COUNT 9.6 K/mm3 (4.0-10.0)
[2016-09-23] MEDS ORDERED: HYDROmorphone HCL CARPU-JECT 2 MG/1 ML DISP.SYRIN ONE ×2 (20:48→22:03)
[2016-09-23] MEDS ORDERED: ONDANSETRON 4 MG/2 ML VIAL ONE (20:49)
[2016-09-23] MEDS ORDERED: ALBUTEROL SO4 2.5/IPRATROPIUM 0.5 INH SOL 3 ML VIAL.NEB. NEB ONE ×2 (20:55→23:36)
[2016-09-23] MEDS ORDERED: methylPREDNISolone NA SUCC 125 MG/2 ML VIAL ONE (20:56)
[2016-09-23] MEDS ORDERED: MAGNESIUM SULF 50% (8.12 MEQ/2 ML-1 GM VIAL) ONE (20:57)
[2016-09-23 21:12] LABS: INR 1.04 (0.82-1.09); PROTHROMBIN TIME (PATIENT) 11.4 SEC (9.98-11.88)
[2016-09-23 21:33] LABS: PLATELET COUNT 344 K/MM3 (134-434); PLATELET ESTIMATE ADEQUATE (NORMAL)
[2016-09-23 22:03] LABS: ALBUMIN 3.5 g/dl (3.4-5.0); ANION GAP 6 (8-16); BILIRUBIN,TOTAL 0.4 mg/dL (0.2-1.0); CALCIUM 9.3 mg/dL (8.5-10.1); CO2 30 mmol/L (21-32); CREATININE 1.1 mg/dL (0.7-1.3); GLUCOSE,RANDOM 184 mg/dL (74-106); MAGNESIUM 2.3 mg/dL (1.8-2.4); SGOT/AST 22 U/L (15-37); SGPT/ALT 36 U/L (12-78); TOT PROT 6.5 g/dl (6.4-8.2)
[2016-09-23 22:05] LABS: ALK PHOS 143 U/L (45-117); TROPONIN I < 0.02 ng/ml (0.00-0.05)
[2016-09-23] MEDS ORDERED: CYCLOBENZAPRINE HCL 10 MG TABLET (FP) PO ONE (23:10)
[2016-09-23] MEDS ORDERED: CYCLOBENZAPRINE HCL 10 MG TABLET (FP) ONE (23:35)
[2016-09-23] MEDS ORDERED: OXYCODONE/APAP 5/325MG COMBO TABLET PO ONE (23:43)
[2016-09-23] MEDS ORDERED: OXYCODONE/APAP 5/325MG COMBO TABLET ONE (23:46)
--- NOTE | 2016-09-24 13:52 | EKG ---
Test Reason : Blood Pressure : / mmHG Vent. Rate : 089 BPM Atrial Rate : 089 BPM P-R Int : 158 ms QRS Dur : 082 ms QT Int : 394 ms P-R-T Axes : 053 038 037 degrees QTc Int : 479 ms SINUS RHYTHM WITH PREMATURE ATRIAL COMPLEXES OTHERWISE NORMAL ECG WHEN COMPARED WITH ECG OF 17-JUL-2016 08:50, PREMATURE ATRIAL COMPLEXES ARE NOW PRESENT Confirmed by CONCETTA BULLARD, PAULA ([id number]) on 09/24/2016 1:52:01 PM Referred By: Confirmed By:PAULA HYLTON MD
== END 2016-09-23 23:53 | disposition home or self-care (01) ==
LOC: JER 18:45
PROC: 3E0F7GC Introduction of Other Therapeutic Substance into Respiratory Tract, Via Natural or Artificial Opening (ICD-10-PCS; principal; 2016-09-23)
PROC: 3E033NZ Introduction of Analgesics, Hypnotics, Sedatives into Peripheral Vein, Percutaneous Approach (ICD-10-PCS; 2016-09-23)
PROC: 3E033GC Introduction of Other Therapeutic Substance into Peripheral Vein, Percutaneous Approach (ICD-10-PCS; 2016-09-23)
DX: M54.12 Radiculopathy, cervical region (principal); J45.901 Unspecified asthma with (acute) exacerbation; J44.9 Chronic obstructive pulmonary disease, unspecified; Z95.5 Presence of coronary angioplasty implant and graft; I25.2 Old myocardial infarction; I50.9 Heart failure, unspecified; I10 Essential (primary) hypertension; E78.00 Pure hypercholesterolemia, unspecified; Z79.4 Long term (current) use of insulin; Z79.82 Long term (current) use of aspirin
CPT/HCPCS: 36415; 70450-TC; 71010-TC; 72125-TC; 80053; 82550; 82553; 83735; 84484; 85025; 85610; 93005; 93010; 99285-25

== ENCOUNTER 2017-08-18 13:36 | Inpatient (IN) | payer OTHER ==
--- NOTE | 2017-08-18 16:11 | PDOC ---
History of Present Illness - General History Source: Patient Exam Limitations: No Limitations <Melonie Hurtado - Last Filed: 08/18/17 16:52> <Chris Clemente - Last Filed: 08/18/17 20:45> - General Chief Complaint: Chest Pain Stated Complaint: SOB, CHEST PAIN, Abd pain Time Seen by Provider: 08/18/17 16:10 - History of Present Illness Initial Comments: 08/18/17 16:25 The patient is a 61 year old male with significant history of hypertension, hyperlipidemia, CAD s/p [place] s/p stents x 6 s/p CABG, cbronic pancreatitis, who presents to the ED complaining of approximately 4 weeks of diffuse upper abdominal pain, radiating to the back, worse after eating, ranked 8/10, significantly worse today with associated nausea and diarrhea followed by constipation. No vomiting. He states his pain is consistent with previous exacerbations of his chronic pancreatitis. The patient also reports several days of nonproductive cough. He reports he was started on Augmentin and Ciprofloxacin for his cough last week. He does report some chest pain that began today, prompting his ED visit. He describes his chest pain as intermittent , both sharp and pressure like, and pleuritic with mild shortness of breath and palpitations. No peripheral edema. The patient denies alcohol abuse. He denies sick contacts. PCP: Dr. Murali Gustafson GI: Dr. Lion 08/18/17 16:52 (Melonie Hurtado) Past History <Melonie Hurtado - Last Filed: 08/18/17 16:52> - Past Medical History Anemia: No Asthma: Yes Cancer: No Cardiac Disorders: Yes ([place], stents x 6, CAD) CVA: No COPD: Yes (trach,) CHF: Yes Dementia: No Diabetes: Yes GI Disorders: Yes (H-Pylori, Diverticulosis, Colon Polyps) Disorders: No HTN: Yes Hypercholesterolemia: Yes Liver Disease: No Seizures: No Thyroid Disease: No - Surgical History Abdominal Surgery: No Appendectomy: No Cardiac Surgery: Yes (STENTS X6) Cholecystectomy: No Lung Surgery: No Neurologic Surgery: Yes (nerve damage from accident - CERVICAL SURGERY) Orthopedic Surgery: Yes (LUMBAR SURGERY, L HAND SOFT TISSUE REPAIR) - Immunization History Immunization Up to Date: Yes - Suicide/Smoking/Psychosocial Hx Smoking History: Never smoked Have you smoked in the past 12 months: No Number of Cigarettes Smoked Daily: 0 Information on smoking cessation initiated: No Hx Alcohol Use: No Drug/Substance Use Hx: No Substance Use Type: None Hx Substance Use Treatment: No <Chris Clemente - Last Filed: 08/18/17 20:45> - Past Medical History Allergies/Adverse Reactions: Allergies Allergy/AdvReac Type Severity Reaction Status Date / Time shellfish derived Allergy Severe Verified 08/18/17 13:42 Tetracyclines Allergy Severe Verified 08/18/17 13:42 Home Medications: Ambulatory Orders Albuterol 0.083% Nebulizer Elena [Ventolin 0.083%] 1 neb NEB Q4H 08/18/17 Albuterol Sulfate Inhaler - [Ventolin Hfa Inhaler -] 1 - 2 inh PO Q4H PRN Amlodipine Besylate [Norvasc -] 0 mg PO DAILY 08/18/17 Arformoterol Tartrate [Brovana] 15 mcg IH ASDIR 08/18/17 Aspirin [Aspirin EC] 81 mg PO DAILY 08/18/17 Budesonide/Formeterol Fumarate [SYMBICORT 160/4.5mcg -] 1 inh PO DAILY 08/18/17 Clopidogrel Bisulfate [Plavix] 75 mg PO DAILY 08/18/17 Dexlansoprazole [Dexilant] 30 mg PO DAILY 08/18/17 Diazepam [Valium] 5 mg PO PRN PRN 08/18/17 Ezetimibe [Zetia -] 10 mg PO DAILY 08/18/17 Furosemide [Lasix] 40 mg PO DAILY 08/18/17 Insulin Lispro [Humalog] 0 unit SQ PRN PRN 08/18/17 Insulin Pump Controller [Snap Insulin Pump Controller] 1 each ASDIR 08/18/17 Montelukast Sodium [Singulair] 10 mg PO DAILY 08/18/17 Ramipril [Altace] 10 mg PO DAILY 08/18/17 Ranitidine HCl 150 mg PO PRN PRN 08/18/17 Rosuvastatin Calcium [Crestor] 10 mg PO DAILY 08/18/17 Tiotropium [place] [Spiriva -] 1 puff IH DAILY 08/18/17 Cardiac Specific PMH - Complaint Specific PMHX Angina: Yes Cardiac Arrhythmia: No Cardiac Stent: Yes GERD: No Pacemaker: No Pulmonary Embolus: No Valvular Heart Disease: No Peripheral Vascular Disease: No <Chris Clemente - Last Filed: 08/18/17 20:45> Review of Systems - Review of Systems Able to Perform ROS?: Yes <Melonie Hurtado - Last Filed: 08/18/17 16:52> <ChynaChris - Last Filed: 08/18/17 20:45> - Review of Systems Comments:: 08/18/17 16:33 CONSTITUTIONAL: No fever, no chills, no fatigue EYES: No visual changes ENT: No ear pain, no sore throat CARDIOVASCULAR: +Nonproductive cough, chest pain, shortness of breath. + Palpitations. No lightheadedness. No peripheral edema. RESPIRATORY: +Cough. No wheezing or hemoptysis. GI: +Upper abdominal pain. +Nausea. +Constipation, diarrhea. No vomiting. GENITOURINARY: No dysuria, no frequency, no hematuria MUSCULOSKELETAL: No backpain, no joint pain, no myalgias SKIN: No rash NEURO: No headache (Melonie Hurtado) *Physical Exam <Melonie Hurtado - Last Filed: 08/18/17 16:52> <Chris Clemente - Last Filed: 08/18/17 20:45> - Vital Signs Last Vital Signs Temp Pulse Resp BP Pulse Ox 98.4 F 62 16 122/78 98 08/18/17 13:39 08/18/17 18:54 08/18/17 18:54 08/18/17 18:54 08/18/17 18:54 - Physical Exam Comments: 08/18/17 16:44 CONSTITUTIONAL: Well-appearing. Obese body habitus. Writhing in pain HEAD: Normocephalic; atraumatic EYES: PERRL; EOM intact ENMT: External appears normal; normal oropharynx NECK: +Trach tube; Supple; non-tender; no cervical lymphadenopathy CARD: Normal S1, S2; no murmurs, rubs, or gallops RESP: Normal chest excursion with respiration; breath sounds clear and equal bilaterally; no wheezes, rhonchi, or rales ABD: +Epigastric tenderness to palpation. Soft, non-distended; no palpable organomegaly. +Small umbilical hernia that does not contain intestine and is easily reproducible. EXT: Normal ROM in all four extremities; non-tender to palpation; distal pulses intact SKIN: Warm, dry, no rash NEURO: No focal neurological deficiencies. (Melonie Hurtado) ED Treatment Course - LABORATORY CBC & Chemistry Diagram: 08/18/17 16:50 08/18/17 16:50 <Chris Clemente - Last Filed: 08/18/17 20:45> - ADDITIONAL ORDERS Additional order review: Laboratory Results 08/18/17 08/18/17 16:50 16:50 PT with INR 12.90 H INR 1.14 Sodium 139 Potassium 4.0 Chloride 103 Carbon Dioxide 28 Anion Gap 8 BUN 12 Creatinine 1.1 Creat Clearance w eGFR > 60 Random Glucose 202 H D Calcium 8.9 Magnesium 1.9 Total Bilirubin 0.3 D AST 35 D ALT 59 Alkaline Phosphatase 95 Creatine Kinase 514 H Creatine Kinase Index 1.7 CK-MB (CK-2) 8.914 H Troponin I < 0.02 Total Protein 6.6 Albumin 3.1 L Total Amylase 22 L D Lipase 238 08/18/17 16:50 RBC 4.75 MCV 81.5 MCHC 32.7 RDW 14.0 MPV 7.5 Neutrophils % 49.8 Lymphocytes % 37.4 D Monocytes % 10.8 H Eosinophils % 0.8 Basophils % 1.2 - RADIOLOGY Radiology Studies Ordered: Category Date Time Status ABDOMEN CTA W/WO CONTRAST [CT] Stat CT Scan 08/18/17 16:43 Completed CHEST CTA [CT] Stat CT Scan 08/18/17 16:43 Completed CHEST X-RAY PORTABLE* [RAD] Stat Radiology 08/18/17 16:42 Taken - Medications Given in the ED: ED Medications Discontinued Medications Generic Name Dose Route Start Last Admin Trade Name Freq PRN Reason Stop Dose Admin Hydromorphone HCl 2 mg 08/18/17 16:44 08/18/17 16:45 Dilaudid Injection - IVPB 08/18/17 16:45 2 mg ONCE ONE Administration Hydromorphone HCl 2 mg 08/18/17 17:37 08/18/17 17:50 Dilaudid Injection - IVPB 08/18/17 17:38 2 mg ONCE ONE Administration Famotidine 20 mg in 12 mls @ 144 mls/hr 08/18/17 19:10 08/18/17 19:44 Pepcid 20 Mg/12 Ml Push IVPB 08/18/17 19:14 144 mls/hr ONCE ONE Administration Labetalol HCl 20 mg 08/18/17 17:39 08/18/17 17:50 Normodyne Injection - IVPUSH 08/18/17 17:40 20 mg ONCE ONE Administration Ondansetron HCl 8 mg 08/18/17 16:44 08/18/17 16:45 Zofran Injection IVPB 08/18/17 16:45 8 mg ONCE ONE Administration Ondansetron HCl 8 mg 08/18/17 19:13 08/18/17 19:00 Zofran Injection IVPB 08/18/17 19:14 8 mg ONCE ONE Administration Sodium Chloride 500 ml 08/18/17 19:44 08/18/17 19:44 Normal Saline - IV 08/18/17 19:45 500 ml NOW ONE Administration Medical Decision Making <Melonie Hurtado - Last Filed: 08/18/17 16:52> <Chris Clemente - Last Filed: 08/18/17 20:45> - Medical Decision Making 08/18/17 18:51 Patient is a 61-year-old male with multiple comorbidities who presents to the ER with atraumatic epigastric and right upper quadrant pain, substernal and right-sided chest discomfort and mild shortness of breath. Patient's abdominal pain is persistent over the past several weeks with the chest pain developed shortly prior to arrival in the ER. On initial evaluation, patient noted to be writhing in pain, hypertensive and mildly tachycardic. EKG shows no evidence of acute ischemia. Differential diagnoses includes chronic pancreatitis versus ACS versus aortic dissection. Will administer pain meds, we'll administer labetalol for blood pressure control, we'll obtain CTA of chest/abdomen/pelvis to rule out aortic dissection. We'll obtain CBC/CMP/lipase/cardiac profile. Will reassess. Likely admission. 08/18/17 19:56 Patient reassessed. Patient is resting comfortably. Hypertension has resolved. Last blood pressure is noted to be 120/81. Heart rate is noted to be 87. First set of cardiac enzymes reveals a negative troponin and elevated CPK with a negative CK-MB index. CTA of chest/abdomen/pelvis reveals no evidence of aortic dissection/pericardial effusion or pancreatic pseudocyst. Right broken ammonia is noted. Patient endorses continuous purulent sputum despite treatment with Augmentin and Cipro which was prescribed [address] Knox pulmonary. Patient has also taken aspirin and Plavix prior to arrival. Will administer ceftriaxone and Zithromax. Will admit to telemetry for serial cardiac enzymes, GI and cardiac evaluation. (Chris Clemente) *DC/Admit/Observation/Transfer <Melonie Hurtado - Last Filed: 08/18/17 16:52> - Discharge Dispostion Admit: Yes <Chris Clemente - Last Filed: 08/18/17 20:45> Diagnosis at time of Disposition: Pneumonia Qualifiers: Pneumonia type: due to unspecified organism Laterality: right Lung location: unspecified part of lung Qualified Code(s): J18.9 - Pneumonia, unspecified organism Chest pain Qualifiers: Chest pain type: unspecified Qualified Code(s): R07.9 - Chest pain, unspecified Chronic pancreatitis Qualifiers: Pancreatitis type: unspecified pancreatitis type Qualified Code(s): K86.1 - Other chronic pancreatitis - Discharge Dispostion Condition at time of disposition: Fair - Attestations Scribe Attestion: 08/18/17 16:46 Documentation prepared by Melonie Hurtado, acting as medical equipment repair technician for Chris Clemente MD. (Melonie Hurtado) Physician Attestion: 08/18/17 18:51 The documentation was prepared by the scribe under my direct supervision. I have reviewed the documentation which correctly represents the findings, medical decision-making and critical action taken by me. (Chris Clemente)
[2017-08-18] MEDS ORDERED: HYDROmorphone HCL CARPU-JECT 2 MG/1 ML DISP.SYRIN ONE ×3 (16:42→23:26)
[2017-08-18] MEDS ORDERED: ONDANSETRON 4 MG/2 ML VIAL ONE ×2 (16:43→18:59)
[2017-08-18] MEDS ORDERED: HYDROmorphone HCL CARPU-JECT 2 MG/1 ML DISP.SYRIN IVPB ONE ×2 (16:44→17:37)
[2017-08-18] MEDS ORDERED: ONDANSETRON 4 MG/2 ML VIAL IVPB ONE ×2 (16:44→19:13)
[2017-08-18 16:59] LABS: BASO % 1.2 % (0-2.0); EOS % 0.8 % (0-4.5); HEMATOCRIT 38.8 % (35.4-49); HEMOGLOBIN 12.7 GM/dL (11.7-16.9); LYMPH % 37.4 % (8-40); MCH 26.6 pg (25.7-33.7); MCHC 32.7 g/dl (32.0-35.9); MEAN CELL VOLUME 81.5 fl (80-96); MEAN PLT VOLUME 7.5 fl (7.5-11.1); MONO % 10.8 % (3.8-10.2); NEUT % 49.8 % (42.8-82.8); PLATELET COUNT 371 K/MM3 (134-434); RBC 4.75 M/mm3 (4.00-5.60); WHITE BLOOD COUNT 9.6 K/mm3 (4.0-10.0)
[2017-08-18 17:10] LABS: INR 1.14 (0.82-1.09); PROTHROMBIN TIME (PATIENT) 12.9 SEC (9.98-11.88)
[2017-08-18 17:32] LABS: ALBUMIN 3.1 g/dl (3.4-5.0); AMYLASE 22 U/L (25-115); ANION GAP 8 (8-16); BILIRUBIN,TOTAL 0.3 mg/dL (0.2-1.0); BLOOD UREA NITROGEN 12 mg/dL (7-18); CALCIUM 8.9 mg/dL (8.5-10.1); CHLORIDE 103 mmol/L (98-107); CO2 28 mmol/L (21-32); CREATININE 1.1 mg/dL (0.7-1.3); GLUCOSE,RANDOM 202 mg/dL (74-106); MAGNESIUM 1.9 mg/dL (1.8-2.4); SGOT/AST 35 U/L (15-37); SGPT/ALT 59 U/L (12-78); SODIUM 139 mmol/L (136-145); TOT PROT 6.6 g/dl (6.4-8.2)
[2017-08-18 17:33] LABS: ALK PHOS 95 U/L (45-117)
[2017-08-18] MEDS ORDERED: LABETALOL HCL 5 MG/1 ML (100MG/20 ML VIAL) IVPUSH ONE (17:39)
[2017-08-18 17:43] LABS: LIPASE 238 U/L (73-393)
[2017-08-18] MEDS ORDERED: LABETALOL HCL 5 MG/1 ML (200MG/40ML VIAL) IVPB ONE (17:53)
[2017-08-18] MEDS ORDERED: FAMOTIDINE IV 20 MG/12 ML VIAL IVPB ONE (19:10)
[2017-08-18] MEDS ORDERED: FAMOTIDINE 20 MG/50 ML IVPB 20 MG/50 ML MG IVPB ONE (19:39)
[2017-08-18] MEDS ORDERED: SODIUM CHLORIDE 0.9% 1000 ML INFUS.BAG IV ONE (19:44)
[2017-08-18] MEDS ORDERED: AZITHROMYCIN IVPB 500 MG in DEXTROSE 5%-WATER - 250 ML IVPB ONE (19:56)
[2017-08-18] MEDS ORDERED: CEFTRIAXONE 1 GM in DEXTROSE 5%-WATER - 50 ML IVPB ONE (19:56)
[2017-08-18] MEDS ORDERED: CEFTRIAXONE 1 GM/50 ML BAG ONE (21:07)
[2017-08-18] MEDS ORDERED: AZITHROMYCIN IVPB 250 ML IVPB ONE (21:07)
[2017-08-18] MEDS ORDERED: HYDROmorphone HCL CARPU-JECT 1 MG/1 ML DISP.SYRIN IVPUSH ONE (23:18)
[2017-08-18] MEDS ORDERED: HYDROmorphone HCL CARPU-JECT 2 MG/1 ML DISP.SYRIN IVPUSH ONE (23:18)
[2017-08-19] MEDS ORDERED: HYDROmorphone HCL CARPU-JECT 2 MG/1 ML DISP.SYRIN ONE ×2 (01:31→13:02)
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
[2017-08-19 06:09] LABS: URINE APPEARANCE CLEAR; URINE BILIRUBIN NEGATIVE (NEGATIVE); URINE BLOOD NEGATIVE (NEGATIVE); URINE COLOR YELLOW; URINE GLUCOSE (UA) 1+ (NEGATIVE); URINE KETONE NEGATIVE (NEGATIVE); URINE LEUK ESTERASE NEGATIVE (NEGATIVE); URINE NITRITE NEGATIVE (NEGATIVE); URINE UROBILINOGEN NEGATIVE mg/dL (0.2-1.0)
[2017-08-19 06:11] LABS: URINE PROTEIN 2+ (NEGATIVE)
[2017-08-19 06:13] LABS: EPI CELLS RARE /HPF (FEW); URINE MUCUS RARE
[2017-08-19 07:14] LABS: BASO % 0.4 % (0-2.0); HEMATOCRIT 36.7 % (35.4-49); HEMOGLOBIN 11.9 GM/dL (11.7-16.9); LYMPH % 29.6 % (8-40); MCH 26.2 pg (25.7-33.7); MCHC 32.3 g/dl (32.0-35.9); MEAN CELL VOLUME 81.1 fl (80-96); MEAN PLT VOLUME 7.1 fl (7.5-11.1); MONO % 11.5 % (3.8-10.2); NEUT % 57.5 % (42.8-82.8); PLATELET COUNT 354 K/MM3 (134-434); RBC 4.53 M/mm3 (4.00-5.60); WHITE BLOOD COUNT 9.8 K/mm3 (4.0-10.0)
[2017-08-19] MEDS ORDERED: HYDROmorphone HCL CARPU-JECT 1 MG/1 ML DISP.SYRIN IVPUSH PRN ×3 (07:38→12:38)
[2017-08-19 08:09] LABS: CHLORIDE 102 mmol/L (98-107); POTASSIUM 3.9 mmol/L (3.5-5.1); SODIUM 137 mmol/L (136-145)
[2017-08-19 08:18] LABS: ANION GAP 7 (8-16); BLOOD UREA NITROGEN 13 mg/dL (7-18); CALCIUM 8.5 mg/dL (8.5-10.1); CHOLESTEROL 193 mg/dL (50-200); CO2 28 mmol/L (21-32); CREATININE 1.2 mg/dL (0.7-1.3); GLUCOSE,RANDOM 273 mg/dL (74-106); HDL CHOLESTEROL 33 mg/dL (40-60); LDL CHOLESTEROL (ONLY SJRH) 131 mg/dL (5-100); MAGNESIUM 2.1 mg/dL (1.8-2.4); PHOSPHOROUS 3.6 mg/dL (2.5-4.9); TRIGLYCERIDES 210 mg/dL (35-160)
[2017-08-19] MEDS ORDERED: PATIENT'S OWN MEDICATION (NON-FORMULARY) (Insulin Pump Controller [Snap Insulin Pump Contr MC SCH (08:30)
--- NOTE | 2017-08-19 08:55 | PN ---
Progress Note (short form) - Note Progress Note: Pulmonary Pt advised to go to ER because of persistent abdominal pain Full consult to follow.
[2017-08-19] MEDS: TAMSULOSIN HCL 0.4 MG CAP.ER.24H (FP) PO SCH (09:12)
[2017-08-19] MEDS ORDERED: VANCOMYCIN 1,000 MG in DEXTROSE 5%-WATER - 250 ML IVPB SCH (10:00)
[2017-08-19] MEDS ORDERED: BUDESONIDE/FORMETEROL FUMARATE 160/4.5 mcg INHALER IH SCH (10:00)
[2017-08-19] MEDS ORDERED: FUROSEMIDE 40 MG TABLET (FP) PO SCH (10:00)
[2017-08-19] MEDS ORDERED: VANCOMYCIN 1,000 MG in DEXTROSE 5%-WATER - 250 ML IVPB ONE (10:00)
--- NOTE | 2017-08-19 10:22 | PN ---
Progress Note, Physician Chief Complaint: ID Major in fact only complaint is abdominal pain consistent with his history of chronic pancreatitis.. Respiratory trevizo he is at baseline with no fever sputum chills SOB. - Current Medication List Current Medications: Active Medications Albuterol/Ipratropium (Duoneb -) 1 amp NEB Q6H PRN PRN Reason: SHORTNESS OF BREATH Amlodipine Besylate (Norvasc -) 10 mg PO DAILY [facility] Aspirin (Ecotrin -) 81 mg PO DAILY MARK Budesonide/Formoterol Fumarate (Symbicort 160/4.5mcg -) 1 puff IH BID MARK Clopidogrel Bisulfate (Plavix -) 75 mg PO DAILY MARK Ezetimibe (Zetia -) 10 mg PO DAILY MARK Finasteride (Proscar -) 5 mg PO DAILY MARK Furosemide (Lasix -) 40 mg PO DAILY MARK Gabapentin (Neurontin -) 600 mg PO DAILY MARK Gabapentin (Neurontin -) 800 mg PO HS [facility] Hydromorphone HCl (Dilaudid Injection -) 1 mg IVPUSH Q6H PRN PRN Reason: PAIN LEVEL 7 - 10 Levofloxacin (Levaquin 500 Mg Premixed Ivpb -) 500 mg in 100 mls @ 100 mls/hr IVPB DAILY MARK Vancomycin HCl 1,000 mg/ (Dextrose) 250 mls @ 200 mls/hr IVPB Q12H MARK Vancomycin HCl 1,000 mg/ (Dextrose) 250 mls @ 166.667 mls/hr IVPB ONCE ONE Stop: 08/19/17 11:29 Montelukast Sodium (Singulair -) 10 mg PO HS [facility] Non-Formulary Medication (Insulin Pump Controller [Snap Insulin Pump Controller] ) 1 each ASDIR MARK Ramipril (Altace -) 10 mg PO DAILY MARK Rosuvastatin Calcium (Crestor -) 10 mg PO HS [facility] Tamsulosin HCl (Flomax -) 0.4 mg PO DAILY@0830 [facility] Tiotropium [place] (Spiriva -) 1 puff IH DAILY [facility] - Objective Vital Signs: Vital Signs Temperature 97.9 F 08/19/17 07:31 Pulse Rate 82 08/19/17 07:31 Respiratory Rate 20 08/19/17 07:31 Blood Pressure 131/63 08/19/17 07:31 O2 Sat by Pulse Oximetry (%) 98 08/19/17 07:31 Constitutional: Yes: Moderate Distress, Obese Neck: Yes: Other (Trach) Cardiovascular: Yes: S1, S2 Respiratory: Yes: WNL, Regular, CTA Bilaterally Gastrointestinal: Yes: Soft, Tenderness, Other (umbilical hernia reeducible) Labs: CBC, BMP 08/19/17 06:30 08/19/17 06:30 INR, PTT INR 1.14 (0.82-1.09) 08/18/17 16:50 Problem List - Problems (1) Chronic pancreatitis Code(s): K86.1 - OTHER CHRONIC PANCREATITIS Qualifiers: Pancreatitis type: unspecified pancreatitis type Qualified Code(s): K86.1 - Other chronic pancreatitis (2) Asthma Code(s): J45.909 - UNSPECIFIED ASTHMA, UNCOMPLICATED Qualifiers: Asthma severity: unspecified severity Assessment/Plan Microbiology Laboratory Tests 04/23/16 04/24/16 04/24/16 19:00 06:15 06:15 WBC 9.9 Hgb 11.0 L Hct Plt Count 307 BUN Creatinine 0.8 D Creat Clearance w eGFR > 60 Random Glucose 155 H D Lactic Acid 1.879 Total Bilirubin AST Alkaline Phosphatase 101 Creatine Kinase 175 Total Amylase Lipase 04/24/16 08/18/17 08/19/17 06:15 16:50 06:30 WBC 9.8 Hgb 11.9 Hct 36.7 Plt Count 354 BUN Creatinine Creat Clearance w eGFR Random Glucose Lactic Acid Total Bilirubin 0.3 D AST 35 D Alkaline Phosphatase 95 Creatine Kinase Total Amylase 22 L D Lipase 692 H 238 08/19/17 06:30 WBC Hgb Hct Plt Count BUN 13 Creatinine 1.2 Creat Clearance w eGFR Random Glucose Lactic Acid Total Bilirubin AST Alkaline Phosphatase Creatine Kinase Total Amylase Lipase Assessment Clinically his symptoms are not compatible with pneumonia and 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 His only complaint is abd pain whcih he says he has had before with pancreatitis. Plan Will hold off on any antibiotics at least until Dr Foley sees him Agree with Gi consult called Branden Davis MD
[2017-08-19] MEDS ORDERED: HYDROmorphone HCL CARPU-JECT 1 MG/1 ML DISP.SYRIN ONE (10:57)
[2017-08-19] MEDS: CLOPIDOGREL BISULFATE 75 MG TABLET (FP) PO SCH (11:00)
[2017-08-19] MEDS: EZETIMIBE 10 MG TABLET (FP) PO SCH (11:00)
[2017-08-19] MEDS: TIOTROPIUM BROMIDE 18 MCG/INH (DEVICE W/ 5 CAPSULES) IH SCH (11:00)
[2017-08-19] MEDS: FINASTERIDE 5 MG TABLET (FP) PO SCH (11:00)
[2017-08-19] MEDS: amLODIPine BESYLATE 2.5 MG TABLET (FP) PO SCH (11:00)
[2017-08-19] MEDS: ASPIRIN COATED 81 MG TABLET.EC PO SCH (11:00)
[2017-08-19] MEDS: BUDESONIDE/FORMETEROL FUMARATE 160/4.5 mcg INHALER IH SCH ×2 (11:00→21:09)
[2017-08-19] MEDS: RAMIPRIL 5 MG CAPSULE (FP) PO SCH (11:00)
[2017-08-19] MEDS: GABAPENTIN 300 MG CAPSULE (FP) PO SCH (11:00)
--- NOTE | 2017-08-19 11:02 | CON.GI ---
Consult Consult Specialty:: GI Referred by:: Dr. Markus Rojas Reason for Consultation:: Abdominal Pain - History of Present Illness Chief Complaint: "I have been having abdominal pain and back pain" History of Present Illness: 61 M admitted through [facility] ER for evaluation of back pain, abdominal pain for several weeks duration. From GI perspective, he has been followed by Dr. Abdoulaye Wu in the past. He last evaluated by him 04/26 as inpatient at [facility]. At that time there was a suspected acute on chronic pancreatitis. He also performed an EGD / Flex sig on Mr. Cohen 03/27 that revealed lisandra esophagitis , a 3cm hiatal hernia, schatzki's ring, and an ulcer in the sigmoid (biopsy of which raised ? of ischemic colitis). His last full colonoscopy was in [address] Wu that led to the removal of a hyperplastic polyp. Diverticulosis was noted and the colon was described as redundant. Mr. Cohen. Mr. Cohen also describes being followed by Dr. Tomás Tripp, hepatobiliary / pancreatic surgeon at [facility] for ? chronic pancreatitis and pancreatic cysts. His follow-up was described as with CT scan's every 6 months. He believes that he saw him a year ago. He also has followed with Dr. Belkis Friend for endoscopic ultrasound for pancreatitis and pancreatic cysts. He believes that he last saw her 6 months to a year ago. He describes his pain as follows: mid abdomen and lower back. He complains of nausea as well. Nothing seems to alleviate the pain (possibly a bit relief from sitting up) and it is described as sharp and constant for "days". Food does not allviate or worsen the pain. There has been no associated nausea, vomiting, unintentional weight loss, change in bowel habits, rectal bleeding, melena. When asked if he takes pancreatic supplements, he says that he has been on Pentasa. Pentasa is a 5 ASA agent for IBD, not for pancreatitis. He underwent CTA of the chest and abdomen. The mesenteric vessels were not described and it otherwise revealed a fat filled umbilical hernia and fatty liver. Lung findings were noted and are being addressed by ID / PMD (? consolidation). He follows with a supervisor painting for chronic back pain following surgeries. He denies chronic OTC NSAID use. 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 Planned EMG/ NCVs studies and evaluation of motor weakness in process by treating neurologist Dr. Singh) Cardio/Vascular: Yes: CAD (Last stents placed x 2 last year per patient), CHF (s /p [place] several years ago; s/p stenting. mild CHF in the past.), HTN, Hyperlipdemia, [place], Pulmonary Hypertension Pulmonary: Yes: Asthma, Sleep Apnea Gastrointestinal: Yes: Constipation, Pancreatitis (? history of chronic pancreatitis with episodes of acute pancreatitis), Other (FECAL INCONTINENCE SECONDARY TO OVERFLOW followed by Dr. Abdoulaye Wu, IPMN, PANCREATITIS . HAD EPISODE OF ISCHEMIC COLITIS LAST ADMISSION) Renal/: Yes: BPH Psych: Yes: Depression Musculoskeletal: Yes: Chronic low back pain, Other (CHRONIC NECK PAIN s/p Lumbar and Cervical fusion ) Endocrine: Yes: Diabetes Mellitus (has insulin pump) - Past Surgical History Past Surgical History: Yes: Breast Biopsy, Colonoscopy, Laminectomy, Stent (1 non eluting, 5 eluting) Additional Surgical History: Tracheostomy - Alcohol/Substance Use Hx Alcohol Use: No History of Substance Use: reports: None, Prescription (opiates for chronic pain post cervical spine surgery. 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 Place of : [facility] History of Recent Travel: No Home Medications - Allergies Allergies/Adverse Reactions: Allergies Allergy/AdvReac Type Severity Reaction Status Date / Time shellfish derived Allergy Severe Verified 08/18/17 13:42 Tetracyclines Allergy Severe Verified 08/18/17 13:42 - Home Medications Home Medications: Ambulatory Orders Albuterol 0.083% Nebulizer Elena [Ventolin 0.083%] 1 neb NEB Q4H 08/18/17 Albuterol Sulfate Inhaler - [Ventolin Hfa Inhaler -] 1 - 2 inh PO Q4H PRN Amlodipine Besylate [Norvasc -] 0 mg PO DAILY 08/18/17 Arformoterol Tartrate [Brovana] 15 mcg IH ASDIR 08/18/17 Aspirin [Aspirin EC] 81 mg PO DAILY 08/18/17 Budesonide/Formeterol Fumarate [SYMBICORT 160/4.5mcg -] 1 inh PO DAILY 08/18/17 Clopidogrel Bisulfate [Plavix] 75 mg PO DAILY 08/18/17 Dexlansoprazole [Dexilant] 30 mg PO DAILY 08/18/17 Diazepam [Valium] 5 mg PO PRN PRN 08/18/17 Ezetimibe [Zetia -] 10 mg PO DAILY 08/18/17 Furosemide [Lasix] 40 mg PO DAILY 08/18/17 Insulin Lispro [Humalog] 0 unit SQ PRN PRN 08/18/17 Insulin Pump Controller [Snap Insulin Pump Controller] 1 each [facility] ASDIR 08/18/17 Montelukast Sodium [Singulair] 10 mg PO DAILY 08/18/17 Ramipril [Altace] 10 mg PO DAILY 08/18/17 Ranitidine HCl 150 mg PO PRN PRN 08/18/17 Rosuvastatin Calcium [Crestor] 10 mg PO DAILY 08/18/17 Tiotropium [place] [Spiriva -] 1 puff IH DAILY 08/18/17 Family Disease History - Family Disease History Family Disease History: Diabetes: Mother ( 58: diabetic complications), CA: Father ( 49: asbestosis), Respiratory: Brother (bronchial asthma, DVT), Other: Mother, Sister (BCA), Son (2, healthy), Daughter (1, healthy) Other Family History: No family history of colorectal cancer Review of Systems - Review of Systems Constitutional: denies: Chills, Fever, Unintentional Wgt. Loss Cardiovascular: reports: Chest Pain Gastrointestinal: reports: Abdominal Pain, Nausea. denies: Constipation, Diarrhea, Dysphagia, Rectal Bleeding, Vomiting Genitourinary: denies: Flank Pain, Frequency Physical Exam-GI Vital Signs: Vital Signs Temperature 97.9 F 08/19/17 11:30 AM Pulse Rate 82 08/19/17 11:30 AM Respiratory Rate 20 08/19/17 11:30 AM Blood Pressure 160/94 08/19/17 11:30 AM O2 Sat by Pulse Oximetry (%) 98 on RA 08/19/17 11:30 AM Constitutional: Yes: Calm Eyes: No: Sclera Icterus Cardiovascular: Yes: Regular Rate and Rhythm. No: Murmur Respiratory: Yes: CTA Bilaterally Gastrointestinal Inspection: Yes: Hernia (umbilical, reducible, non-tender). No : Distention ...Auscultate: Yes: Normoactive Bowel Sounds ...Palpate: Yes: Soft, Tenderness (Mild TTP mid abdomen). No: Guarding, Hepatomegaly, Splenomegaly, Tenderness, Rebound ...Percussion: No: Tympanitic ...Rectal Exam: Yes: Other (excoriation along lower back, otherwise no external lesions, no masses, diaz formed stool in rectal vault, guaiac negative.) Edema: Yes Edema: LLE: 1+, RLE: 1+ Neurological: Yes: Alert, Oriented Labs: CBC, BMP 08/19/17 06:30 08/19/17 06:30 INR, PTT INR 1.14 (0.82-1.09) 08/18/17 16:50 Hepatic Panel Total Bilirubin 0.3 mg/dL (0.2-1.0) D 08/18/17 16:50 AST 35 U/L (15-37) D 08/18/17 16:50 ALT 59 U/L (12-78) 08/18/17 16:50 Alkaline Phosphatase 95 U/L (45-117) 08/18/17 16:50 Albumin 3.1 g/dl (3.4-5.0) L 08/18/17 16:50 Laboratory Tests 08/18/17 16:50 Total Amylase 22 L D Lipase 238 Imaging - Results Cat Scan: Report Reviewed, Image Reviewed Problem List - Problems (1) Abdominal pain Assessment/Plan: Mr. Cohen has multiple pain complaints accompanying his abdominal pain complaints. It does not fit the classic picture of this being all from chronic pancreatitis or acute pancreatitis. He has lower back pain complaints as well. ? if there is a neurogenic component to his pain complaints ? if diabetic gastroparesis playing a role however the constant pain he describes not fitting the picture either Advise: Upper GI series in AM NPO with IV hydration per PMD I called radiology to discuss the CTA of abdomen as the mesenteric vessels were not described. Left message with Dr. Dyson's office Protonix 40mg PO daily Pancreatic supplementation I did advise that when his acute issues are resolved, given the chronicity of his GI complaints and his other medical problems adding complexity to his overall clinical picture that he continue to follow at a tertiary care center. He is followed by Dr. Tomás Tripp at [facility] and I advised he make an appointment for follow-up with him. He was advised by Dr. Belkis Friend to look into [facility] as an alternative. [facility] does have a Pancreatic Center and biliary endoscopists that perform EUS such as Niharika Alvarado [phone]. He is deciding whether he will follow-up with Dr. Wu at [facility]. It is also unclear why Mr. Cohen is on Pentasa. Med list will need to be clarified Consider pain management evaluation and if abdominal pain worsens, surgical evaluation. Code(s): R10.9 - UNSPECIFIED ABDOMINAL PAIN Qualifiers: Abdominal location: upper abdomen, unspecified Qualified Code(s): R10.10 - Upper abdominal pain, unspecified
--- NOTE | 2017-08-19 11:40 | CON.CARD ---
Consult Consult Specialty:: Cardiology Referred by:: Hospitalist Medicine Reason for Consultation:: CAD post PCI - History of Present Illness Chief Complaint: Abdominal pain History of Present Illness: 61 year old man with a history of HTN, HLD, DM, CAD s/p [place] followed by PCI with stents 2002 and again 2016, Chronic Diastolic HF, Pulmonary HTN, GRACIE, COPD/ Asthma s/p permanent tracheostomy, on chronic steroid therapy with multiple previous admissions for acute exacerbations of asthma and right sided CHF, followed by Dr. Abdoulaye Wu in the past acute on chronic pancreatitis and pseudocysts, esophagitis, IMPN followed by Dr. Friend EUS presents for evaluation of back pain, abdominal pain for several weeks duration associated with nausea and anorexia. He denies chest pressure sob, LE edema, pnd, orthopnea. no lightheadedness, dizziness, syncope, or near syncope. He sees Dr. Bola Elaine as outpatient. 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 Planned EMG/ NCVs studies and evaluation of motor weakness in process by treating neurologist Dr. Singh) Cardio/Vascular: Yes: CAD (Last stents placed x 2 last year per patient), CHF (s /p [place] several years ago; s/p stenting. mild CHF in the past.), HTN, Hyperlipdemia, [place], Pulmonary Hypertension Pulmonary: Yes: Asthma, Sleep Apnea Gastrointestinal: Yes: Constipation, Pancreatitis (? history of chronic pancreatitis with episodes of acute pancreatitis), Other (FECAL INCONTINENCE SECONDARY TO OVERFLOW followed by Dr. Abdoulaye Wu, IPMN, PANCREATITIS . HAD EPISODE OF ISCHEMIC COLITIS LAST ADMISSION) Renal/: Yes: BPH Psych: Yes: Depression Musculoskeletal: Yes: Chronic low back pain, Other (CHRONIC NECK PAIN s/p Lumbar and Cervical fusion ) Endocrine: Yes: Diabetes Mellitus (has insulin pump) - Past Surgical History Past Surgical History: Yes: Breast Biopsy, Colonoscopy, Laminectomy, Stent (1 non eluting, 5 eluting) Additional Surgical History: Tracheostomy - Alcohol/Substance Use Hx Alcohol Use: No History of Substance Use: reports: None, Prescription (opiates for chronic pain post cervical spine surgery. 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 History of Recent Travel: No Home Medications - Allergies Allergies/Adverse Reactions: Allergies Allergy/AdvReac Type Severity Reaction Status Date / Time shellfish derived Allergy Severe Verified 08/18/17 13:42 Tetracyclines Allergy Severe Verified 08/18/17 13:42 - Home Medications Home Medications: Ambulatory Orders Albuterol 0.083% Nebulizer Elena [Ventolin 0.083%] 1 neb NEB Q4H 08/18/17 Albuterol Sulfate Inhaler - [Ventolin Hfa Inhaler -] 1 - 2 inh PO Q4H PRN Amlodipine Besylate [Norvasc -] 0 mg PO DAILY 08/18/17 Arformoterol Tartrate [Brovana] 15 mcg IH ASDIR 08/18/17 Aspirin [Aspirin EC] 81 mg PO DAILY 08/18/17 Budesonide/Formeterol Fumarate [SYMBICORT 160/4.5mcg -] 1 inh PO DAILY 08/18/17 Clopidogrel Bisulfate [Plavix] 75 mg PO DAILY 08/18/17 Dexlansoprazole [Dexilant] 30 mg PO DAILY 08/18/17 Diazepam [Valium] 5 mg PO PRN PRN 08/18/17 Ezetimibe [Zetia -] 10 mg PO DAILY 08/18/17 Furosemide [Lasix] 40 mg PO DAILY 08/18/17 Insulin Lispro [Humalog] 0 unit SQ PRN PRN 08/18/17 Insulin Pump Controller [Snap Insulin Pump Controller] 1 each ASDIR 08/18/17 Montelukast Sodium [Singulair] 10 mg PO DAILY 08/18/17 Ramipril [Altace] 10 mg PO DAILY 08/18/17 Ranitidine HCl 150 mg PO PRN PRN 08/18/17 Rosuvastatin Calcium [Crestor] 10 mg PO DAILY 08/18/17 Tiotropium [place] [Spiriva -] 1 puff IH DAILY 08/18/17 Family Disease History - Family Disease History Family Disease History: Diabetes: Mother ( 58: diabetic complications), CA: Father ( 49: asbestosis), Respiratory: Brother (bronchial asthma, DVT), Other: Mother, Sister (BCA), Son (2, healthy), Daughter (1, healthy) Other Family History: No family history of colorectal cancer Review of Systems - Review of Systems Gastrointestinal: reports: Abdominal Pain, Nausea Vital Signs: Vital Signs Temperature 98.3 F 08/19/17 10:46 Pulse Rate 82 08/19/17 10:46 Respiratory Rate 18 08/19/17 10:46 Blood Pressure 160/94 08/19/17 10:46 O2 Sat by Pulse Oximetry (%) 98 08/19/17 10:46 Constitutional: Yes: No Distress, Calm Neck: Yes: Supple Respiratory: Yes: Regular, CTA Bilaterally Gastrointestinal: Yes: Soft, Hypoactive Bowel Sounds, Tenderness, Epigastrium Cardiovascular: Yes: Regular Rate and Rhythm JVD: No Carotid Bruit: No Heart Sounds: Yes: S1, S2 Murmur: Yes: Systolic Murmur, Grade 1 Edema: No - Other Data Labs, Other Data: CBC, BMP 08/19/17 06:30 08/19/17 06:30 INR, PTT INR 1.14 (0.82-1.09) 08/18/17 16:50 Troponin, BNP 08/18/17 08/19/17 16:50 06:30 Troponin I < 0.02 < 0.02 Troponin, BNP 08/18/17 08/19/17 16:50 06:30 Troponin I < 0.02 < 0.02 Imaging - Results Chest X-ray: Report Reviewed (Right lung base infiltrate) Cat Scan: Report Reviewed (Chest CT; RLL PNA) Problem List - Problems (1) Chest pain Code(s): R07.9 - CHEST PAIN, UNSPECIFIED Qualifiers: Chest pain type: unspecified Qualified Code(s): R07.9 - Chest pain, unspecified (2) Chronic pancreatitis Code(s): K86.1 - OTHER CHRONIC PANCREATITIS Qualifiers: Pancreatitis type: unspecified pancreatitis type Qualified Code(s): K86.1 - Other chronic pancreatitis (3) Abdominal pain Code(s): R10.9 - UNSPECIFIED ABDOMINAL PAIN Qualifiers: Abdominal location: upper abdomen, unspecified Qualified Code(s): R10.10 - Upper abdominal pain, unspecified (4) Asthma Code(s): J45.909 - UNSPECIFIED ASTHMA, UNCOMPLICATED Qualifiers: Asthma severity: unspecified severity (5) COPD (chronic obstructive pulmonary disease) Code(s): J44.9 - CHRONIC OBSTRUCTIVE PULMONARY DISEASE, UNSPECIFIED (6) Chronic diastolic (congestive) heart failure Code(s): I50.32 - CHRONIC DIASTOLIC (CONGESTIVE) HEART FAILURE (7) Coronary artery disease Code(s): I25.10 - ATHSCL HEART DISEASE OF [place] CORONARY ARTERY W/O ANG PCTRS (8) Diabetes mellitus Code(s): E11.9 - TYPE 2 DIABETES MELLITUS WITHOUT COMPLICATIONS Qualifiers: Diabetes mellitus type: type 2 Diabetes mellitus complication detail: with unspecified neuropathy (9) Esophagitis determined by endoscopy Code(s): K20.9 - ESOPHAGITIS, UNSPECIFIED (10) Hyperlipidemia Code(s): E78.5 - HYPERLIPIDEMIA, UNSPECIFIED (11) Hypertension Code(s): I10 - ESSENTIAL (PRIMARY) HYPERTENSION (12) Hypertension associated with diabetes Code(s): E11.59 - TYPE 2 DIABETES MELLITUS WITH OTH CIRCULATORY COMPLICATIONS; I10 - ESSENTIAL (PRIMARY) HYPERTENSION (13) IPMN (intraductal papillary mucinous neoplasm) Code(s): D49.0 - NEOPLASM OF UNSPECIFIED BEHAVIOR OF DIGESTIVE SYSTEM (14) Myocardial infarct Code(s): I21.3 - ST ELEVATION (STEMI) MYOCARDIAL INFARCTION OF UNSP SITE (15) GRACIE (obstructive sleep apnea) Code(s): G47.33 - OBSTRUCTIVE SLEEP APNEA (ADULT) (PEDIATRIC) (16) Type 2 diabetes mellitus with diabetic neuropathy Code(s): E11.40 - TYPE 2 DIABETES MELLITUS WITH DIABETIC NEUROPATHY, UNSP Assessment/Plan Nuclear stress test noted, inferior infarct with mild rosamaria-infarct ischemia, inferior hypokinesis, mild to mod LV dysfunction. 04/10/2016 Echo: Mild cLVH, normal LV fxn, mild LAE, mild MR, TR 1. Chronic pancreatitis, IPMN followed via Dr. Friend EUS, esophagitis, question diabetic gastroparesis 2. Chronic atypical chest pain 3. CAD s/p [place], post PCI (stent), angina pectoris 4. HTN/HCVD 5. Hyperlipidemia 6. Diastolic dysfunction, pulm HTN 7. OSAS 8. COPD/Asthma, no clinical evidence of PNA P:1. Bowel rest with IVF and d/c diuretics, analgesia as needed, pancreatic enzymes, UGI series and follow pancreatic enzymes per GI 2. Continue ASA 81 qd, Plavix 75 qd, Zetia 10 qd, Altace 10 qd, Crestor 10 qd and Norvasc 10 qd 3. BD, Singulair, O2 as needed 4. Thank you for consultative opportunity, patient to follow-up with Dr. Chele lechuga d/c.
--- NOTE | 2017-08-19 11:49 | PN ---
Progress Note, Physician Chief Complaint: admitted for chronic abdominal pain got iv abx in ER still complaining of abdominal pain and nausea will keep him NPO - Current Medication List Current Medications: Active Medications Albuterol/Ipratropium (Duoneb -) 1 amp NEB Q6H PRN PRN Reason: SHORTNESS OF BREATH Amlodipine Besylate (Norvasc -) 10 mg PO DAILY [facility] Last Admin: 08/19/17 11:00 Dose: 10 mg Aspirin (Ecotrin -) 81 mg PO DAILY [facility] Last Admin: 08/19/17 11:00 Dose: 81 mg Budesonide/Formoterol Fumarate (Symbicort 160/4.5mcg -) 1 puff IH BID [facility] Last Admin: 08/19/17 11:00 Dose: 1 puff Clopidogrel Bisulfate (Plavix -) 75 mg PO DAILY [facility] Last Admin: 08/19/17 11:00 Dose: 75 mg Ezetimibe (Zetia -) 10 mg PO DAILY [facility] Last Admin: 08/19/17 11:00 Dose: 10 mg Finasteride (Proscar -) 5 mg PO DAILY [facility] Last Admin: 08/19/17 11:00 Dose: 5 mg Furosemide (Lasix -) 40 mg PO DAILY [facility] Last Admin: 08/19/17 11:00 Dose: 40 mg Gabapentin (Neurontin -) 600 mg PO DAILY [facility] Last Admin: 08/19/17 11:00 Dose: 600 mg Gabapentin (Neurontin -) 800 mg PO HS [facility] Hydromorphone HCl (Dilaudid Injection -) 1 mg IVPUSH Q6H PRN PRN Reason: PAIN LEVEL 7 - 10 Last Admin: 08/19/17 11:11 Dose: 1 mg Levofloxacin (Levaquin 500 Mg Premixed Ivpb -) 500 mg in 100 mls @ 100 mls/hr IVPB DAILY [facility] Vancomycin HCl 1,000 mg/ (Dextrose) 250 mls @ 200 mls/hr IVPB Q12H [facility] Montelukast Sodium (Singulair -) 10 mg PO HS [facility] Non-Formulary Medication (Insulin Pump Controller [Snap Insulin Pump Controller] ) 1 each MC ASDIR [facility] Pantoprazole Sodium (Protonix -) 40 mg PO DAILY [facility] Ramipril (Altace -) 10 mg PO DAILY [facility] Last Admin: 08/19/17 11:00 Dose: 10 mg Rosuvastatin Calcium (Crestor -) 10 mg PO HS [facility] Tamsulosin HCl (Flomax -) 0.4 mg PO DAILY@0830 [facility] Last Admin: 08/19/17 09:12 Dose: 0.4 mg Tiotropium [place] (Spiriva -) 1 puff IH DAILY [facility] Last Admin: 08/19/17 11:00 Dose: 1 puff - Objective Vital Signs: Vital Signs Temperature 98.3 F 08/19/17 10:46 Pulse Rate 82 08/19/17 10:46 Respiratory Rate 18 08/19/17 10:46 Blood Pressure 160/94 08/19/17 10:46 O2 Sat by Pulse Oximetry (%) 98 08/19/17 10:46 Constitutional: Yes: Mild Distress Cardiovascular: Yes: Regular Rate and Rhythm, S1, S2 Respiratory: Yes: CTA Bilaterally Gastrointestinal: Yes: Tenderness, Tenderness, Epigastrium Neurological: Yes: Alert, Oriented Labs: CBC, BMP 08/19/17 06:30 08/19/17 06:30 INR, PTT INR 1.14 (0.82-1.09) 08/18/17 16:50 Assessment/Plan chronic abdominal pain: appreciate GI evaluation NPO with iv hydration surgical evaluation pain management DM : endo bgm sliding scale back pain: chronic abdominal pain pain management consult
--- NOTE | 2017-08-19 12:09 | EKG ---
Test Reason : Blood Pressure : / mmHG Vent. Rate : 091 BPM Atrial Rate : 091 BPM P-R Int : 160 ms QRS Dur : 084 ms QT Int : 366 ms P-R-T Axes : 056 034 039 degrees QTc Int : 450 ms SINUS RHYTHM WITH PREMATURE SUPRAVENTRICULAR COMPLEXES OTHERWISE NORMAL ECG WHEN COMPARED WITH ECG OF 23-SEP-2016 18:54, NO SIGNIFICANT CHANGE WAS FOUND Confirmed by PAULA HYLTON MD ([id number]) on 08/19/2017 12:09:09 PM Referred By: Confirmed By:PAULA HYLTON MD
[2017-08-19] MEDS: SODIUM CHLORIDE 1,000 ML IV SCH (13:07)
--- NOTE | 2017-08-19 15:39 | CONS ---
DATE OF CONSULTATION: DATE OF DICTATION: 08/19/2017 HISTORY OF PRESENT ILLNESS: This is a 61-year-old -[place] male with a history of multiple comorbidities including severe coronary artery disease, hypertension, sleep apnea requiring tracheostomy, and chronic pancreatitis, who presented to the emergency room with several weeks of worsening diffuse upper abdominal pain radiating to his back. According to the patient, he has a history of chronic pancreatitis, which was previously diagnosed and treated by his binder technician, Dr. Wu. He denied any vomiting, but did experience some nausea in the absence of any blood stool, hematemesis, or diarrhea. He had no fever, and I am asked to see him for evaluation of pneumonia based on a CT scan finding obtained to evaluate his abdominal pain. He has no shortness of breath, no sputum production, no tracheal secretions at this time. He has nothing to suggest active influenza infection. He specifically denied any headaches, body aches, chills, or shortness of breath. He was given multiple doses of antibiotics including vancomycin, levofloxacin, ceftriaxone in the emergency room, and I am asked to see him now as to whether or not he requires further antibiotics for pneumonia. He has been given Augmentin and ciprofloxacin in the recent past for upper respiratory infection and tracheitis. PAST MEDICAL HISTORY: Includes H. pylori, diverticulosis, colonic polyps, chronic pancreatitis, lumbar surgery, cervical surgery. MEDICATIONS AT HOME: Albuterol, amlodipine, Brovana, aspirin, Plavix, Zetia, Lasix, insulin, [place], ranitidine, Crestor. SOCIAL HISTORY: . No HIV risk factors. 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 No history of drug use. 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 FAMILY HISTORY: Reviewed and noncontributory. REVIEW OF SYSTEMS: Respiratory: No cough, shortness of breath, sputum production. Cardiac: Denies palpitations, syncope, chest pain. Gastrointestinal: Diffuse abdominal pain radiating to the back. Genitourinary: No dysuria, hematuria, or urinary frequency. PHYSICAL EXAMINATION: Vital signs: On admission, the temperature was 98.4, pulse 62, respirations 16, BP 122/78, oximetry 98%. General: An alert, obese man in severe distress secondary to abdominal pain. Neck: With a tracheostomy in place. Lungs: With diminished breath sounds. No rales or rhonchi. Wheezing. Heart: S1, S2, regular rhythm. No audible murmur or gallop. Abdomen: Diffuse abdominal tenderness particularly epigastric. No guarding or rebound. No organomegaly. Large umbilical hernia which appeared reducible. Extremities: No clubbing, cyanosis, or edema. LABORATORY DATA: The white count was 9.6, hemoglobin 12.7, platelets 371. BUN 12, creatinine 1.1, amylase 22, lipase 238. Liver enzymes within normal limits. Troponin less than 0.02. Urinalysis with 10 RBCs, [address] scan of the abdomen shows right lower lobe bronchopneumonia, grouping of few irregular right upper lobe nodular opacities, 7 mm, a 10-mm solid noncalcified right middle lobe pulmonary nodule noted, and tracheostomy, hepatosteatosis, coronary artery disease with calcific plaque, moderate-sized broad-based umbilical hernia. ASSESSMENT: A 61-year-old man with history of multiple comorbidities presented with severe abdominal pain over several weeks, which the patient says is consistent with his previous diagnosis of chronic and recurrent pancreatitis. At this point, he does not appear to have clinical evidence of pneumonia, and after speaking with Dr. Knox earlier, it appears as though from a respiratory standpoint, the patient is at baseline with no systemic findings to suggest active pneumonia. Therefore, I see no reason to treat him with any antibiotic at this time, at least until he is evaluated in the hospital by Dr. Knox. GI consultation with Dr. Bob has been obtained, and the patient is being treated with analgesics for his abdominal pain. RICHARD MAJANO M.D. [id number]
--- NOTE | 2017-08-19 16:01 | PN ---
Progress Note (short form) - Note Progress Note: Reviewed CTA with Dr. Dyson. Widely patent Celiac trunk, VANESSA and SMA. Problem List - Problems (1) Abdominal pain Code(s): R10.9 - UNSPECIFIED ABDOMINAL PAIN Qualifiers: Abdominal location: upper abdomen, unspecified Qualified Code(s): R10.10 - Upper abdominal pain, unspecified
--- NOTE | 2017-08-19 16:36 | CON.PULM ---
Consult Reason for Consultation:: Bronchial asthma and sleep apnea - History of Present Illness Chief Complaint: abdominal pain History of Present Illness: Increasing abdominal pain x 2 weeks. No dyspnea or wheezing. 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 Wu and surgeon at [facility] Bronchial asthma-steroid dependent frequently Obstructive Sleep Apnea- stable on trach that he keeps open during sleep. Tracheostomy-done about 30 years ago to tx [facility]. Pt has trach. tube changes and revisions at [facility] (where he has been followed longterm) ASHD H/O [place] and stent IDDM-pt has insulin pump (followed by Dr. Gustafson) Obesity S/P Extensive Spinal Surgery several years ago. Opioid dependence- pt maintained on large doses of analgesics because of severe pain related to his spinal surgery. Pt's pain medications are prescribed by his orthopedists: Drs. 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 Planned EMG/ NCVs studies and evaluation of motor weakness in process by treating neurologist Dr. Singh) Cardio/Vascular: Yes: CAD (Last stents placed x 2 last year per patient), CHF (s /p [place] several years ago; s/p stenting. mild CHF in the past.), HTN, Hyperlipdemia, [place], Pulmonary Hypertension Pulmonary: Yes: Asthma, Sleep Apnea Gastrointestinal: Yes: Constipation, Pancreatitis (? history of chronic pancreatitis with episodes of acute pancreatitis), Other (FECAL INCONTINENCE SECONDARY TO OVERFLOW followed by Dr. Abdoulaye Wu, IPMN, PANCREATITIS . HAD EPISODE OF ISCHEMIC COLITIS LAST ADMISSION) Renal/: Yes: BPH Psych: Yes: Depression Musculoskeletal: Yes: Chronic low back pain, Other (CHRONIC NECK PAIN s/p Lumbar and Cervical fusion ) Endocrine: Yes: Diabetes Mellitus (has insulin pump) - Past Surgical History Past Surgical History: Yes: Breast Biopsy, Colonoscopy, Laminectomy, Stent (1 non eluting, 5 eluting) Additional Surgical History: Tracheostomy - Alcohol/Substance Use Hx Alcohol Use: No History of Substance Use: reports: None, Prescription (opiates for chronic pain post cervical spine surgery. 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 History of Recent Travel: No Home Medications - Allergies Allergies/Adverse Reactions: Allergies Allergy/AdvReac Type Severity Reaction Status Date / Time shellfish derived Allergy Severe Verified 08/18/17 13:42 Tetracyclines Allergy Severe Verified 08/18/17 13:42 - Home Medications Home Medications: Ambulatory Orders Albuterol 0.083% Nebulizer Elena [Ventolin 0.083%] 1 neb NEB Q4H 08/18/17 Albuterol Sulfate Inhaler - [Ventolin Hfa Inhaler -] 1 - 2 inh PO Q4H PRN Amlodipine Besylate [Norvasc -] 0 mg PO DAILY 08/18/17 Arformoterol Tartrate [Brovana] 15 mcg IH ASDIR 08/18/17 Aspirin [Aspirin EC] 81 mg PO DAILY 08/18/17 Budesonide/Formeterol Fumarate [SYMBICORT 160/4.5mcg -] 1 inh PO DAILY 08/18/17 Clopidogrel Bisulfate [Plavix] 75 mg PO DAILY 08/18/17 Dexlansoprazole [Dexilant] 30 mg PO DAILY 08/18/17 Diazepam [Valium] 5 mg PO PRN PRN 08/18/17 Ezetimibe [Zetia -] 10 mg PO DAILY 08/18/17 Furosemide [Lasix] 40 mg PO DAILY 08/18/17 Insulin Lispro [Humalog] 0 unit SQ PRN PRN 08/18/17 Insulin Pump Controller [Snap Insulin Pump Controller] 1 each ASDIR 08/18/17 Montelukast Sodium [Singulair] 10 mg PO DAILY 08/18/17 Ramipril [Altace] 10 mg PO DAILY 08/18/17 Ranitidine HCl 150 mg PO PRN PRN 08/18/17 Rosuvastatin Calcium [Crestor] 10 mg PO DAILY 08/18/17 Tiotropium [place] [Spiriva -] 1 puff IH DAILY 08/18/17 Family Disease History - Family Disease History Family Disease History: Diabetes: Mother ( 58: diabetic complications), CA: Father ( 49: asbestosis), Respiratory: Brother (bronchial asthma, DVT), Other: Mother, Sister (BCA), Son (2, healthy), Daughter (1, healthy) Other Family History: No family history of colorectal cancer Review of Systems - Review of Systems Constitutional: denies: Chills Cardiovascular: denies: Chest Pain, Palpitations Respiratory: denies: Cough, SOB Gastrointestinal: reports: Abdominal Pain. denies: Rectal Bleeding, Vomiting, Vomiting Blood Neurological: reports: No Symptoms Physical Exam Vital Sings: Vital Signs Temperature 98.3 F 08/19/17 10:46 Pulse Rate 82 08/19/17 10:46 Respiratory Rate 18 08/19/17 10:46 Blood Pressure 160/94 08/19/17 10:46 O2 Sat by Pulse Oximetry (%) 98 08/19/17 10:46 Constitutional: Yes: Mild Distress Eyes: No: Sclera Icterus HENT: Yes: Atraumatic, Normocephalic Neck: Yes: Supple, Trachea Midline Cardiovascular: Yes: Regular Rate and Rhythm. No: JVD Respiratory: Yes: CTA Bilaterally ...Percussion: No: Dullnes, Hyperresonance ...Clubbing: No Gastrointestinal: Yes: Soft, Other (umbilical hernia). No: Hepatomegaly, Splenomegaly, Tenderness Extremities: No: Calf Tenderness Edema: No Neurological: Yes: Alert, Oriented Labs: CBC, BMP 08/19/17 06:30 08/19/17 06:30 Imaging - Results Cat Scan: Report Reviewed, Image Reviewed ([address] 12/26/2010:1.[address] scan 10/26/2007 (report) 1 cm nodule RML RLL nodular densities and air bronchograms on current CT-probably are inflammatory) Assessment/Plan Abdominal pain. Multiple chronic medical problems (see past medical history) including COPD and GRACIE which are stable. RML nodule has been stable since at least 10/26/2007 There are nodular densities in the RLL which appear inflammatory. No clinical evidence of acute pulmonary infection. Suggest; Work-up of abdominal pain in progress Continue pt's maintenance medications.
[2017-08-19] MEDS: HYDROmorphone HCL CARPU-JECT 2 MG/1 ML DISP.SYRIN IVPUSH PRN ×2 (17:45→20:57)
[2017-08-19] MEDS: ALBUTEROL SO4 2.5/IPRATROPIUM 0.5 INH SOL 3 ML VIAL.NEB. NEB PRN (20:29)
[2017-08-19] MEDS: ROSUVASTATIN CA 10 MG TABLET (FP) PO SCH (21:02)
[2017-08-19] MEDS: MONTELUKAST NA 10 MG TABLET PO SCH (21:02)
[2017-08-19] MEDS: GABAPENTIN 400 MG CAPSULE (FP) PO SCH (21:02)
[2017-08-19] MEDS: INSULIN SLIDING SCALE (NOVOLOG) 1 VIAL SQ SCH (23:20)
--- NOTE | 2017-08-20 00:30 | CONSULT ---
Consult Consult Specialty:: ENDOCRINE Referred by:: DR.MICHAEL RAMOS Reason for Consultation:: IDDM / INSULIN PUMP - History of Present Illness Chief Complaint: SEVERE PAIN AND DIFFICULTY WITH BLOOD SUGARS History of Present Illness: 61 y/o man with a significant medical history of HTN, HLD, CAD s/p OK- 6 stents , DM, Chronic Pancreatitis, Chronic Cervical/Lumbar Pain.Who presents to the ED with abdominal pain x 4 weeks, CP, SOB and palpitations x today. Patient reports having N/D- constipation, productive cough with green phlegm. Placed on po antibiotic recently - Past Medical History [employer]: Yes: Peripheral Neuropathy (s/p extensive cervical spine surgery post injury with leg weakness and poor balance: patient much improved post extensive physical therapy and now walks with a walker), Other (chronic pain syndrome with mulit-level spine disease managed by PM and his spine surgeon. Planned EMG/ NCVs studies and evaluation of motor weakness in process by treating neurologist Dr. Singh) Cardio/Vascular: Yes: CAD (Last stents placed x 2 last year per patient), CHF (s /p OK several years ago; s/p stenting. mild CHF in the past.), HTN, Hyperlipdemia, OK, Pulmonary Hypertension Pulmonary: Yes: Asthma, Sleep Apnea Gastrointestinal: Yes: Constipation, Pancreatitis (? history of chronic pancreatitis with episodes of acute pancreatitis), Other (FECAL INCONTINENCE SECONDARY TO OVERFLOW followed by Dr. Abdoulaye Wu, IPMN, PANCREATITIS . HAD EPISODE OF ISCHEMIC COLITIS LAST ADMISSION) Renal/: Yes: BPH Psych: Yes: Depression Musculoskeletal: Yes: Chronic low back pain, Other (CHRONIC NECK PAIN s/p Lumbar and Cervical fusion ) Endocrine: Yes: Diabetes Mellitus (has insulin pump) - Past Surgical History Past Surgical History: Yes: Breast Biopsy, Colonoscopy, Laminectomy, Stent (1 non eluting, 5 eluting) Additional Surgical History: Tracheostomy - Alcohol/Substance Use Hx Alcohol Use: No History of Substance Use: reports: None, Prescription (opiates for chronic pain post cervical spine surgery. 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 History of Recent Travel: No Home Medications - Allergies Allergies/Adverse Reactions: Allergies Allergy/AdvReac Type Severity Reaction Status Date / Time shellfish derived Allergy Severe Verified 08/18/17 13:42 Tetracyclines Allergy Severe Verified 08/18/17 13:42 - Home Medications Home Medications: Ambulatory Orders Albuterol 0.083% Nebulizer Elena [Ventolin 0.083%] 1 neb NEB Q4H 08/18/17 Albuterol Sulfate Inhaler - [Ventolin Hfa Inhaler -] 1 - 2 inh PO Q4H PRN Amlodipine Besylate [Norvasc -] 0 mg PO DAILY 08/18/17 Arformoterol Tartrate [Brovana] 15 mcg IH ASDIR 08/18/17 Aspirin [Aspirin EC] 81 mg PO DAILY 08/18/17 Budesonide/Formeterol Fumarate [SYMBICORT 160/4.5mcg -] 1 inh PO DAILY 08/18/17 Clopidogrel Bisulfate [Plavix] 75 mg PO DAILY 08/18/17 Dexlansoprazole [Dexilant] 30 mg PO DAILY 08/18/17 Diazepam [Valium] 5 mg PO PRN PRN 08/18/17 Ezetimibe [Zetia -] 10 mg PO DAILY 08/18/17 Furosemide [Lasix] 40 mg PO DAILY 08/18/17 Insulin Lispro [Humalog] 0 unit SQ PRN PRN 08/18/17 Insulin Pump Controller [Snap Insulin Pump Controller] 1 each MC ASDIR 08/18/17 Montelukast Sodium [Singulair] 10 mg PO DAILY 08/18/17 Ramipril [Altace] 10 mg PO DAILY 08/18/17 Ranitidine HCl 150 mg PO PRN PRN 08/18/17 Rosuvastatin Calcium [Crestor] 10 mg PO DAILY 08/18/17 Tiotropium [place] [Spiriva -] 1 puff IH DAILY 08/18/17 Family Disease History - Family Disease History Family Disease History: Diabetes: Mother ( 58: diabetic complications), CA: Father ( 49: asbestosis), Respiratory: Brother (bronchial asthma, DVT), Other: Mother, Sister (BCA), Son (2, healthy), Daughter (1, healthy) Other Family History: No family history of colorectal cancer Review of Systems - Review of Systems Constitutional: reports: Loss of Appetite, Weakness Eyes: reports: No Symptoms HENT: reports: No Symptoms Neck: reports: No Symptoms Cardiovascular: reports: Palpitations, Shortness of Breath Respiratory: reports: Exercise Intolerance, SOB, SOB on Exertion Gastrointestinal: reports: Bloating, Constipation, Nausea Genitourinary: reports: No Symptoms Breasts: reports: No Symptoms Reported Musculoskeletal: reports: Extremity Pain, Joint Swelling, Muscle Pain, Muscle Weakness Endocrine: reports: Unexplained Weight Gain Psychiatric: reports: Altered Sleep Pattern Physical Exam Vital Signs: Vital Signs Temperature 97.8 F 08/19/17 17:40 Pulse Rate 102 H 08/19/17 17:40 Respiratory Rate 24 08/19/17 17:40 Blood Pressure 120/85 08/19/17 17:40 O2 Sat by Pulse Oximetry (%) 100 08/19/17 16:37 Constitutional: Yes: Anxious Eyes: Yes: EOM Intact HENT: Yes: Normocephalic Neck: Yes: Trachea Midline Cardiovascular: Yes: Tachycardia Respiratory: Yes: CTA Bilaterally Gastrointestinal: Yes: Abdomen, Obese, Tenderness, Epigastrium ...Rectal Exam: Yes: Deferred Musculoskeletal: Yes: Back Pain, Joint Stiffness, Joint Swelling, Muscle Weakness Extremities: Yes: WNL Peripheral Pulses WNL: Yes Neurological: Yes: Alert, Oriented Labs: CBC, BMP 08/19/17 06:30 08/19/17 06:30 Problem List - Problems (1) 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 Code(s): E10.8 - TYPE 1 DIABETES MELLITUS WITH UNSPECIFIED COMPLICATIONS (2) Chronic pancreatitis Code(s): K86.1 - OTHER CHRONIC PANCREATITIS Qualifiers: Pancreatitis type: unspecified pancreatitis type Qualified Code(s): K86.1 - Other chronic pancreatitis (3) ASHD (arteriosclerotic heart disease) Code(s): I25.10 - ATHSCL HEART DISEASE OF [place] CORONARY ARTERY W/O ANG PCTRS (4) Abdominal pain Code(s): R10.9 - UNSPECIFIED ABDOMINAL PAIN Qualifiers: Abdominal location: upper abdomen, unspecified Qualified Code(s): R10.10 - Upper abdominal pain, unspecified (5) Acute on chronic diastolic (congestive) heart failure Code(s): I50.33 - ACUTE ON CHRONIC DIASTOLIC (CONGESTIVE) HEART FAILURE Assessment/Plan Current Active Problems Chest pain (Acute) Chronic pancreatitis (Acute) Pneumonia (Acute) diabetes mellitus gastroparesis htn ashd cad chronic pain syndrome hyperlipidemia iddm insulin dependent Abnormal Lab Results 08/19/17 08/19/17 08/19/17 05:56 06:30 06:30 MPV 7.1 L Monocytes % 11.5 H Anion Gap Random Glucose Hemoglobin A1c % Creatine Kinase 424 H CK-MB (CK-2) 9.233 H Triglycerides Total LDL Cholesterol HDL Cholesterol Ur Specific [place] > 1.060 H Urine Protein 2+ H Urine Glucose (UA) 1+ H 08/19/17 08/19/17 06:30 06:30 MPV Monocytes % Anion Gap 7 L Random Glucose 273 H D Hemoglobin A1c % 10.3 H D Creatine Kinase CK-MB (CK-2) Triglycerides 210 H Total LDL Cholesterol 131 H HDL Cholesterol 33 L D Ur Specific [place] Urine Protein Urine Glucose (UA) Laboratory Results - last 24 hr 08/19/17 08/19/17 08/19/17 05:56 06:30 06:30 WBC 9.8 RBC 4.53 Hgb 11.9 Hct 36.7 MCV 81.1 MCH 26.2 MCHC 32.3 RDW 14.0 Plt Count 354 MPV 7.1 L Neutrophils % 57.5 Lymphocytes % 29.6 D Monocytes % 11.5 H Eosinophils % 1.0 Basophils % 0.4 Sodium Potassium Chloride Carbon Dioxide Anion Gap BUN Creatinine POC Glucometer Random Glucose Hemoglobin A1c % Calcium Phosphorus Magnesium Creatine Kinase 424 H Creatine Kinase Index 2.1 CK-MB (CK-2) 9.233 H Troponin I < 0.02 Triglycerides Cholesterol Total LDL Cholesterol HDL Cholesterol Urine Color Yellow Urine Appearance Clear Urine pH 5.0 Ur Specific [place] > 1.060 H Urine Protein 2+ H Urine Glucose (UA) 1+ H Urine Ketones Negative Urine Blood Negative Urine Nitrite Negative Urine Bilirubin Negative Urine Urobilinogen Negative Ur Leukocyte Esterase Negative Urine WBC (Auto) 1 Urine RBC (Auto) 10 Ur Epithelial Cells Rare Urine Mucus Rare 08/19/17 08/19/17 08/19/17 06:30 06:30 23:17 WBC RBC Hgb Hct MCV MCH MCHC RDW Plt Count MPV Neutrophils % Lymphocytes % Monocytes % Eosinophils % Basophils % Sodium 137 Potassium 3.9 Chloride 102 Carbon Dioxide 28 Anion Gap 7 L BUN 13 Creatinine 1.2 POC Glucometer 201 Random Glucose 273 H D Hemoglobin A1c % 10.3 H D Calcium 8.5 Phosphorus 3.6 Magnesium 2.1 Creatine Kinase Creatine Kinase Index CK-MB (CK-2) Troponin I Triglycerides 210 H Cholesterol 193 Total LDL Cholesterol 131 H HDL Cholesterol 33 L D Urine Color Urine Appearance Urine pH Ur Specific [place] Urine Protein Urine Glucose (UA) Urine Ketones Urine Blood Urine Nitrite Urine Bilirubin Urine Urobilinogen Ur Leukocyte Esterase Urine WBC (Auto) Urine RBC (Auto) Ur Epithelial Cells Urine Mucus plan: pain management for control pain senior living management insulin pump basal bolus rates adjusted Current Medications Generic Name Dose Route Start Last Admin Trade Name Freq PRN Reason Stop Dose Admin Albuterol/Ipratropium 1 amp 08/19/17 16:14 08/19/17 20:29 Duoneb - NEB 1 amp Q6H PRN Administration SHORTNESS OF BREATH Amlodipine Besylate 10 mg 08/19/17 10:00 08/19/17 11:00 Norvasc - PO 10 mg DAILY MARK Administration Aspirin 81 mg 08/19/17 10:00 08/19/17 11:00 Ecotrin - PO 81 mg DAILY MARK Administration Budesonide/Formoterol Fumarate 1 puff 08/19/17 10:00 08/19/17 21:09 Symbicort 160/4.5mcg - IH 1 puff BID MARK Administration Clopidogrel Bisulfate 75 mg 08/19/17 10:00 08/19/17 11:00 Plavix - PO 75 mg DAILY MARK Administration Ezetimibe 10 mg 08/19/17 10:00 08/19/17 11:00 Zetia - PO 10 mg DAILY MARK Administration Finasteride 5 mg 08/19/17 10:00 08/19/17 11:00 Proscar - PO 5 mg DAILY MARK Administration Gabapentin 600 mg 08/19/17 10:00 08/19/17 11:00 Neurontin - PO 600 mg DAILY MARK Administration Gabapentin 800 mg 08/19/17 22:00 08/19/17 21:02 Neurontin - PO 800 mg HS MARK Administration Hydromorphone HCl 4 mg 08/20/17 00:23 Dilaudid Injection - IVPUSH Q4H PRN PAIN LEVEL 7 - 10 Levofloxacin 500 mg in 100 mls @ 100 mls/hr 08/19/17 10:00 08/19/17 13:07 Levaquin 500 Mg Premixed Ivpb - IVPB 100 mls/hr DAILY MARK Administration Vancomycin HCl 1,000 mg/ 250 mls @ 200 mls/hr 08/19/17 10:00 Dextrose IVPB Q12H MARK Sodium Chloride 1,000 mls @ 75 mls/hr 08/19/17 12:00 08/19/17 13:07 Normal Saline - IV 75 mls/hr ASDIR MARK Administration Insulin Aspart 1 vial 08/19/17 16:30 08/19/17 23:20 Novolog Vial Sliding Scale - SQ Not Given ACHS MARK Protocol Montelukast Sodium 10 mg 08/19/17 22:00 08/19/17 21:02 Singulair - PO 10 mg HS MARK Administration Non-Formulary Medication 1 each 08/19/17 08:30 Insulin Pump Controller [Snap Insulin Pump Controller] MC ASDIR MARK Pantoprazole Sodium 40 mg 08/20/17 10:00 Protonix - PO DAILY MARK Ramipril 10 mg 08/19/17 10:00 08/19/17 11:00 Altace - PO 10 mg DAILY MARK Administration Rosuvastatin Calcium 10 mg 08/19/17 22:00 08/19/17 21:02 Crestor - PO 10 mg HS MARK Administration Tamsulosin HCl 0.4 mg 08/19/17 08:30 08/19/17 09:12 Flomax - PO 0.4 mg DAILY@0830 MARK Administration Tiotropium [place] 1 puff 08/19/17 10:00 08/19/17 11:00 Spiriva - IH 1 puff DAILY MARK Administration
[2017-08-20] MEDS: HYDROmorphone HCL CARPU-JECT 2 MG/1 ML DISP.SYRIN IVPB PRN ×4 (00:54→14:43)
[2017-08-20] MEDS: ALBUTEROL SO4 2.5/IPRATROPIUM 0.5 INH SOL 3 ML VIAL.NEB. NEB PRN ×5 (01:00→20:25)
[2017-08-20] MEDS: SODIUM CHLORIDE 1,000 ML IV SCH ×2 (05:44→13:00)
[2017-08-20] MEDS: INSULIN SLIDING SCALE (NOVOLOG) 1 VIAL SQ SCH ×4 (06:33→22:44)
[2017-08-20 07:45] LABS: ALBUMIN 2.9 g/dl (3.4-5.0); ANION GAP 10 (8-16); BASO % 0.4 % (0-2.0); BILIRUBIN,TOTAL 0.3 mg/dL (0.2-1.0); BLOOD UREA NITROGEN 16 mg/dL (7-18); CALCIUM 8.3 mg/dL (8.5-10.1); CHLORIDE 105 mmol/L (98-107); CHOLESTEROL 186 mg/dL (50-200); CO2 24 mmol/L (21-32); CREATININE 1.2 mg/dL (0.7-1.3); EOS % 0.9 % (0-4.5); GLUCOSE,RANDOM 198 mg/dL (74-106); HDL CHOLESTEROL 36 mg/dL (40-60); HEMATOCRIT 36.8 % (35.4-49); HEMOGLOBIN 11.9 GM/dL (11.7-16.9); LDL CHOLESTEROL (ONLY SJRH) 128 mg/dL (5-100); LYMPH % 30.8 % (8-40); MCH 26.4 pg (25.7-33.7); MCHC 32.3 g/dl (32.0-35.9); MEAN CELL VOLUME 81.8 fl (80-96); MEAN PLT VOLUME 7.5 fl (7.5-11.1); MONO % 11.1 % (3.8-10.2); NEUT % 56.8 % (42.8-82.8); PLATELET COUNT 368 K/MM3 (134-434); POTASSIUM 3.9 mmol/L (3.5-5.1); RDW 14.3 % (11.9-15.9); SGOT/AST 32 U/L (15-37); SGPT/ALT 50 U/L (12-78); SODIUM 139 mmol/L (136-145); TOT PROT 5.9 g/dl (6.4-8.2); TRIGLYCERIDES 173 mg/dL (35-160); WHITE BLOOD COUNT 10.2 K/mm3 (4.0-10.0)
[2017-08-20 07:46] LABS: ALK PHOS 93 U/L (45-117)
[2017-08-20] MEDS: PANTOPRAZOLE 40 MG TABLET (FP) PO SCH (10:19)
[2017-08-20] MEDS: EZETIMIBE 10 MG TABLET (FP) PO SCH (10:19)
[2017-08-20] MEDS: GABAPENTIN 300 MG CAPSULE (FP) PO SCH (10:19)
[2017-08-20] MEDS: FINASTERIDE 5 MG TABLET (FP) PO SCH (10:19)
[2017-08-20] MEDS: amLODIPine BESYLATE 2.5 MG TABLET (FP) PO SCH (10:19)
[2017-08-20] MEDS: CLOPIDOGREL BISULFATE 75 MG TABLET (FP) PO SCH (10:19)
[2017-08-20] MEDS: ASPIRIN COATED 81 MG TABLET.EC PO SCH (10:19)
[2017-08-20] MEDS: TAMSULOSIN HCL 0.4 MG CAP.ER.24H (FP) PO SCH (10:20)
[2017-08-20] MEDS: RAMIPRIL 5 MG CAPSULE (FP) PO SCH (10:20)
--- NOTE | 2017-08-20 10:22 | PN ---
Progress Note, Physician History of Present Illness: Abdominal pain associated with nausea and anorexia slowly improving, ruled out for mesenteric ischemia, await UGI series. - Current Medication List Current Medications: Active Medications Albuterol/Ipratropium (Duoneb -) 1 amp NEB Q6H PRN PRN Reason: SHORTNESS OF BREATH Last Admin: 08/20/17 07:01 Dose: 1 amp Amlodipine Besylate (Norvasc -) 10 mg PO DAILY [facility] Last Admin: 08/19/17 11:00 Dose: 10 mg Aspirin (Ecotrin -) 81 mg PO DAILY [facility] Last Admin: 08/19/17 11:00 Dose: 81 mg Budesonide/Formoterol Fumarate (Symbicort 160/4.5mcg -) 1 puff IH BID [facility] Last Admin: 08/19/17 21:09 Dose: 1 puff Clopidogrel Bisulfate (Plavix -) 75 mg PO DAILY [facility] Last Admin: 08/19/17 11:00 Dose: 75 mg Ezetimibe (Zetia -) 10 mg PO DAILY [facility] Last Admin: 08/19/17 11:00 Dose: 10 mg Finasteride (Proscar -) 5 mg PO DAILY [facility] Last Admin: 08/19/17 11:00 Dose: 5 mg Gabapentin (Neurontin -) 600 mg PO DAILY [facility] Last Admin: 08/19/17 11:00 Dose: 600 mg Gabapentin (Neurontin -) 800 mg PO HS [facility] Last Admin: 08/19/17 21:02 Dose: 800 mg Hydromorphone HCl (Dilaudid Injection -) 4 mg IVPB Q4H PRN PRN Reason: PAIN LEVEL 7 - 10 Last Admin: 08/20/17 05:31 Dose: 4 mg Levofloxacin (Levaquin 500 Mg Premixed Ivpb -) 500 mg in 100 mls @ 100 mls/hr IVPB DAILY [facility] Last Admin: 08/19/17 13:07 Dose: 100 mls/hr Vancomycin HCl 1,000 mg/ (Dextrose) 250 mls @ 200 mls/hr IVPB Q12H [facility] Sodium Chloride (Normal Saline -) 1,000 mls @ 75 mls/hr IV ASDIR [facility] Last Admin: 08/20/17 05:44 Dose: 75 mls/hr Insulin Aspart (Novolog Vial Sliding Scale -) 1 vial SQ ACHS [facility] PRN Reason: Protocol Last Admin: 08/20/17 06:33 Dose: 2 units Montelukast Sodium (Singulair -) 10 mg PO HS [facility] Last Admin: 08/19/17 21:02 Dose: 10 mg Pancrelipase (Creon Dr 6,000 Units Capsule) 2 cap PO TIDCM [facility] Pantoprazole Sodium (Protonix -) 40 mg PO DAILY [facility] Ramipril (Altace -) 10 mg PO DAILY [facility] Last Admin: 08/19/17 11:00 Dose: 10 mg Rosuvastatin Calcium (Crestor -) 10 mg PO HS [facility] Last Admin: 08/19/17 21:02 Dose: 10 mg Tamsulosin HCl (Flomax -) 0.4 mg PO DAILY@0830 [facility] Last Admin: 08/19/17 09:12 Dose: 0.4 mg Tiotropium [place] (Spiriva -) 1 puff IH DAILY [facility] Last Admin: 08/19/17 11:00 Dose: 1 puff - Objective Vital Signs: Vital Signs Temperature 98.2 F 08/20/17 08:05 Pulse Rate 96 H 08/20/17 08:05 Respiratory Rate 16 08/20/17 08:05 Blood Pressure 142/88 08/20/17 08:05 O2 Sat by Pulse Oximetry (%) 97 08/19/17 21:00 Constitutional: Yes: No Distress, Calm Neck: Yes: Supple Cardiovascular: Yes: Regular Rate and Rhythm Respiratory: Yes: Regular, CTA Bilaterally Gastrointestinal: Yes: Soft, Hypoactive Bowel Sounds Edema: No Labs: CBC, BMP 08/20/17 06:20 08/20/17 06:20 INR, PTT INR 1.14 (0.82-1.09) 08/18/17 16:50 - ....Imaging EKG: Report Reviewed (Tele: ST) Problem List - Problems (1) Chest pain Code(s): R07.9 - CHEST PAIN, UNSPECIFIED Qualifiers: Qualified Code(s): R07.9 - Chest pain, unspecified (2) Chronic pancreatitis Code(s): K86.1 - OTHER CHRONIC PANCREATITIS Qualifiers: Qualified Code(s): K86.1 - Other chronic pancreatitis (3) Abdominal pain Code(s): R10.9 - UNSPECIFIED ABDOMINAL PAIN Qualifiers: Qualified Code(s): R10.10 - Upper abdominal pain, unspecified (4) Asthma Code(s): J45.909 - UNSPECIFIED ASTHMA, UNCOMPLICATED (5) COPD (chronic obstructive pulmonary disease) Code(s): J44.9 - CHRONIC OBSTRUCTIVE PULMONARY DISEASE, UNSPECIFIED (6) Chronic diastolic (congestive) heart failure Code(s): I50.32 - CHRONIC DIASTOLIC (CONGESTIVE) HEART FAILURE (7) Coronary artery disease Code(s): I25.10 - ATHSCL HEART DISEASE OF [place] CORONARY ARTERY W/O ANG PCTRS (8) Diabetes mellitus Code(s): E11.9 - TYPE 2 DIABETES MELLITUS WITHOUT COMPLICATIONS (9) Esophagitis determined by endoscopy Code(s): K20.9 - ESOPHAGITIS, UNSPECIFIED (10) Hyperlipidemia Code(s): E78.5 - HYPERLIPIDEMIA, UNSPECIFIED (11) Hypertension Code(s): I10 - ESSENTIAL (PRIMARY) HYPERTENSION (12) Hypertension associated with diabetes Code(s): E11.59 - TYPE 2 DIABETES MELLITUS WITH OTH CIRCULATORY COMPLICATIONS; I10 - ESSENTIAL (PRIMARY) HYPERTENSION (13) IPMN (intraductal papillary mucinous neoplasm) Code(s): D49.0 - NEOPLASM OF UNSPECIFIED BEHAVIOR OF DIGESTIVE SYSTEM (14) Myocardial infarct Code(s): I21.3 - ST ELEVATION (STEMI) MYOCARDIAL INFARCTION OF UNSP SITE (15) GRACIE (obstructive sleep apnea) Code(s): G47.33 - OBSTRUCTIVE SLEEP APNEA (ADULT) (PEDIATRIC) (16) Type 2 diabetes mellitus with diabetic neuropathy Code(s): E11.40 - TYPE 2 DIABETES MELLITUS WITH DIABETIC NEUROPATHY, UNSP Assessment/Plan Nuclear stress test noted, inferior infarct with mild rosamaria-infarct ischemia, inferior hypokinesis, mild to mod LV dysfunction. 04/10/2016 Echo: Mild cLVH, normal LV fxn, mild LAE, mild MR, TR 1. Chronic pancreatitis, IPMN followed via Dr. Friend EUS, esophagitis, question diabetic gastroparesis 2. Chronic atypical chest pain 3. CAD s/p MA, post PCI (stent), angina pectoris 4. HTN/HCVD 5. Hyperlipidemia 6. Diastolic dysfunction, pulm HTN 7. OSAS 8. COPD/Asthma, no clinical evidence of PNA P:1. Bowel rest with IVF and d/c diuretics, analgesia as needed, pancreatic enzymes, f/u UGI series and follow pancreatic enzymes per GI 2. Continue ASA 81 qd, Plavix 75 qd, Zetia 10 qd, Altace 10 qd, Crestor 10 qd and Norvasc 10 qd 3. BD, Singulair, O2 as needed, abx course, d/c telemetry
--- NOTE | 2017-08-20 10:23 | PN ---
GI Progress Note Subjective: No acute events. Just came back from [facility] this morning Still requires dilaudid and has high dilaudid requirements on previous admissions as well States that he thinks he is on creon but only takes it "whenever he has a flare " - Objective Vital Signs: Vital Signs Temperature 98.2 F 08/20/17 08:05 Pulse Rate 96 H 08/20/17 08:05 Respiratory Rate 16 08/20/17 08:05 Blood Pressure 142/88 08/20/17 08:05 O2 Sat by Pulse Oximetry (%) 97 08/19/17 21:00 Constitutional: Calm Eyes: No: Sclera Icterus Cardiovascular: Yes: Regular Rate and Rhythm. No: Murmur Respiratory: Yes: CTA Bilaterally Gastrointestinal Inspection: Yes: Hernia (as described previously, no change). No: Distention ...Auscultate: Yes: Normoactive Bowel Sounds ...Palpate: Yes: Soft. No: Hepatomegaly, Splenomegaly, Tenderness Edema: No (No LE edema) Neurological: Yes: Alert, Oriented Labs: CBC, BMP 08/20/17 06:20 08/20/17 06:20 INR, PTT INR 1.14 (0.82-1.09) 08/18/17 16:50 Problem List - Problems (1) Abdominal pain Assessment/Plan: Along with lower and upper back pain complaints Confounding in terms of the pain pattern. Not fitting typical picture of pain from chronic pancreatitis Awaiting [facility] ? component of neurogenic pain. Consider neuro eval Consider pain management eval given high opiate analgesia requirements. Unclear what his pain med regiment is at home as he did tell me that he sees a oil painter Added creon 2 tabs TID prior to meals when he starts eating PPI Code(s): R10.9 - UNSPECIFIED ABDOMINAL PAIN Qualifiers: Abdominal location: upper abdomen, unspecified Qualified Code(s): R10.10 - Upper abdominal pain, unspecified
[2017-08-20] MEDS: TIOTROPIUM BROMIDE 18 MCG/INH (DEVICE W/ 5 CAPSULES) IH SCH (10:56)
[2017-08-20] MEDS: BUDESONIDE/FORMETEROL FUMARATE 160/4.5 mcg INHALER IH SCH ×2 (10:57→22:38)
[2017-08-20] MEDS ORDERED: LIPASE/PROTEASE/AMYLASE 6,000 UNIT CAPSULE PO SCH (12:00)
[2017-08-20] MEDS: LIPASE/PROTEASE/AMYLASE 36,000 UNIT CAPSULE PO SCH ×2 (13:33→19:21)
--- NOTE | 2017-08-20 17:38 | PN ---
Progress Note, Physician Chief Complaint: awake alert c/o umbillical pain - Current Medication List Current Medications: Active Medications Albuterol/Ipratropium (Duoneb -) 1 amp NEB Q6H PRN PRN Reason: SHORTNESS OF BREATH Last Admin: 08/20/17 15:50 Dose: 1 amp Amlodipine Besylate (Norvasc -) 10 mg PO DAILY [facility] Last Admin: 08/20/17 10:19 Dose: 10 mg Aspirin (Ecotrin -) 81 mg PO DAILY [facility] Last Admin: 08/20/17 10:19 Dose: 81 mg Budesonide/Formoterol Fumarate (Symbicort 160/4.5mcg -) 1 puff IH BID [facility] Last Admin: 08/20/17 10:57 Dose: 1 puff Ezetimibe (Zetia -) 10 mg PO DAILY [facility] Last Admin: 08/20/17 10:19 Dose: 10 mg Finasteride (Proscar -) 5 mg PO DAILY [facility] Last Admin: 08/20/17 10:19 Dose: 5 mg Gabapentin (Neurontin -) 600 mg PO DAILY [facility] Last Admin: 08/20/17 10:19 Dose: 600 mg Gabapentin (Neurontin -) 800 mg PO HS [facility] Last Admin: 08/19/17 21:02 Dose: 800 mg Hydromorphone HCl (Dilaudid Injection -) 4 mg IVPB Q4H PRN PRN Reason: PAIN LEVEL 7 - 10 Last Admin: 08/20/17 14:43 Dose: 4 mg Levofloxacin (Levaquin 500 Mg Premixed Ivpb -) 500 mg in 100 mls @ 100 mls/hr IVPB DAILY [facility] Last Admin: 08/20/17 10:19 Dose: 100 mls/hr Vancomycin HCl 1,000 mg/ (Dextrose) 250 mls @ 200 mls/hr IVPB Q12H MARK Sodium Chloride (Normal Saline -) 1,000 mls @ 75 mls/hr IV ASDIR [facility] Last Admin: 08/20/17 13:00 Dose: Not Given Insulin Aspart (Novolog Vial Sliding Scale -) 1 vial SQ ACHS MARK PRN Reason: Protocol Last Admin: 08/20/17 16:52 Dose: Not Given Montelukast Sodium (Singulair -) 10 mg PO HS [facility] Last Admin: 08/19/17 21:02 Dose: 10 mg Pancrelipase (Creon Dr 36,000 Units Capsule) 1 cap PO TIDCM [facility] Last Admin: 08/20/17 13:33 Dose: Not Given Pantoprazole Sodium (Protonix -) 40 mg PO DAILY [facility] Last Admin: 08/20/17 10:19 Dose: 40 mg Ramipril (Altace -) 10 mg PO DAILY [facility] Last Admin: 08/20/17 10:20 Dose: 10 mg Rosuvastatin Calcium (Crestor -) 10 mg PO HS [facility] Last Admin: 08/19/17 21:02 Dose: 10 mg Tamsulosin HCl (Flomax -) 0.4 mg PO DAILY@0830 [facility] Last Admin: 08/20/17 10:20 Dose: 0.4 mg Tiotropium [place] (Spiriva -) 1 puff IH DAILY [facility] Last Admin: 08/20/17 10:56 Dose: 1 puff - Objective Vital Signs: Vital Signs Temperature 98 F 08/20/17 14:00 Pulse Rate 102 H 08/20/17 14:00 Respiratory Rate 16 08/20/17 14:00 Blood Pressure 124/72 08/20/17 14:00 O2 Sat by Pulse Oximetry (%) 97 08/20/17 09:00 Constitutional: Yes: Mild Distress Eyes: Yes: WNL HENT: Yes: WNL Neck: Yes: WNL Cardiovascular: Yes: WNL Respiratory: Yes: WNL Gastrointestinal: Yes: Distention, Tenderness Genitourinary: Yes: WNL Musculoskeletal: Yes: WNL Extremities: Yes: WNL Edema: No Peripheral Pulses WNL: Yes Integumentary: Yes: WNL Wound/Incision: Yes: Clean/Dry Neurological: Yes: WNL ...Motor Strength: WNL Psychiatric: Yes: WNL Labs: CBC, BMP 08/20/17 06:20 08/20/17 06:20 INR, PTT INR 1.14 (0.82-1.09) 08/18/17 16:50 Problem List - Problems (1) Umbilical hernia Code(s): K42.9 - UMBILICAL HERNIA WITHOUT OBSTRUCTION OR GANGRENE (2) Chest pain Code(s): R07.9 - CHEST PAIN, UNSPECIFIED Qualifiers: Chest pain type: unspecified Qualified Code(s): R07.9 - Chest pain, unspecified (3) Chronic pancreatitis Code(s): K86.1 - OTHER CHRONIC PANCREATITIS Qualifiers: Pancreatitis type: unspecified pancreatitis type Qualified Code(s): K86.1 - Other chronic pancreatitis (4) 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 Code(s): E10.8 - TYPE 1 DIABETES MELLITUS WITH UNSPECIFIED COMPLICATIONS (5) Pneumonia Code(s): J18.9 - PNEUMONIA, UNSPECIFIED ORGANISM Qualifiers: Pneumonia type: due to unspecified organism Laterality: right Lung location: unspecified part of lung Qualified Code(s): J18.9 - Pneumonia, unspecified organism (6) ASHD (arteriosclerotic heart disease) Code(s): I25.10 - ATHSCL HEART DISEASE OF [place] CORONARY ARTERY W/O ANG PCTRS (7) Abdominal pain Code(s): R10.9 - UNSPECIFIED ABDOMINAL PAIN Qualifiers: Abdominal location: upper abdomen, unspecified Qualified Code(s): R10.10 - Upper abdominal pain, unspecified (8) Type 2 diabetes mellitus with diabetic neuropathy Code(s): E11.40 - TYPE 2 DIABETES MELLITUS WITH DIABETIC NEUROPATHY, UNSP Assessment/Plan iv abx nebs 02 support pain control npo gi follow up labs reviewed umbillical herniasurgery eval
--- NOTE | 2017-08-20 18:30 | CONSULT ---
Consult Consult Specialty:: Surgery Reason for Consultation:: Abdominal pain. 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 Planned EMG/ NCVs studies and evaluation of motor weakness in process by treating neurologist Dr. Singh) Cardio/Vascular: Yes: CAD (Last stents placed x 2 last year per patient), CHF (s /p IL several years ago; s/p stenting. mild CHF in the past.), HTN, Hyperlipdemia, [place], Pulmonary Hypertension Pulmonary: Yes: Asthma, Sleep Apnea Gastrointestinal: Yes: Constipation, Pancreatitis (? history of chronic pancreatitis with episodes of acute pancreatitis), Other (FECAL INCONTINENCE SECONDARY TO OVERFLOW followed by Dr. Abdoulaye Wu, IPMN, PANCREATITIS . HAD EPISODE OF ISCHEMIC COLITIS LAST ADMISSION) Renal/: Yes: BPH Psych: Yes: Depression Musculoskeletal: Yes: Chronic low back pain, Other (CHRONIC NECK PAIN s/p Lumbar and Cervical fusion ) Endocrine: Yes: Diabetes Mellitus (has insulin pump) - Past Surgical History Past Surgical History: Yes: Breast Biopsy, Colonoscopy, Laminectomy, Stent (1 non eluting, 5 eluting) Additional Surgical History: Tracheostomy - Alcohol/Substance Use Hx Alcohol Use: No History of Substance Use: reports: None, Prescription (opiates for chronic pain post cervical spine surgery. 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 History of Recent Travel: No Home Medications - Allergies Allergies/Adverse Reactions: Allergies Allergy/AdvReac Type Severity Reaction Status Date / Time shellfish derived Allergy Severe Verified 08/18/17 13:42 Tetracyclines Allergy Severe Verified 08/18/17 13:42 - Home Medications Home Medications: Ambulatory Orders Albuterol 0.083% Nebulizer Elena [Ventolin 0.083%] 1 neb NEB Q4H 08/18/17 Albuterol Sulfate Inhaler - [Ventolin Hfa Inhaler -] 1 - 2 inh PO Q4H PRN Amlodipine Besylate [Norvasc -] 0 mg PO DAILY 08/18/17 Arformoterol Tartrate [Brovana] 15 mcg IH ASDIR 08/18/17 Aspirin [Aspirin EC] 81 mg PO DAILY 08/18/17 Budesonide/Formeterol Fumarate [SYMBICORT 160/4.5mcg -] 1 inh PO DAILY 08/18/17 Clopidogrel Bisulfate [Plavix] 75 mg PO DAILY 08/18/17 Dexlansoprazole [Dexilant] 30 mg PO DAILY 08/18/17 Diazepam [Valium] 5 mg PO PRN PRN 08/18/17 Ezetimibe [Zetia -] 10 mg PO DAILY 08/18/17 Furosemide [Lasix] 40 mg PO DAILY 08/18/17 Insulin Lispro [Humalog] 0 unit SQ PRN PRN 08/18/17 Insulin Pump Controller [Snap Insulin Pump Controller] 1 each MC ASDIR 08/18/17 Montelukast Sodium [Singulair] 10 mg PO DAILY 08/18/17 Ramipril [Altace] 10 mg PO DAILY 08/18/17 Ranitidine HCl 150 mg PO PRN PRN 08/18/17 Rosuvastatin Calcium [Crestor] 10 mg PO DAILY 08/18/17 Tiotropium [place] [Spiriva -] 1 puff IH DAILY 08/18/17 Family Disease History - Family Disease History Family Disease History: Diabetes: Mother ( 58: diabetic complications), CA: Father ( 49: asbestosis), Respiratory: Brother (bronchial asthma, DVT), Other: Mother, Sister (BCA), Son (2, healthy), Daughter (1, healthy) Other Family History: No family history of colorectal cancer Review of Systems - Review of Systems Constitutional: denies: Chills Cardiovascular: denies: Chest Pain Gastrointestinal: reports: Abdominal Pain. denies: Nausea, Vomiting Neurological: denies: Change in LOC Pain Intensity: 4 Physical Exam Vital Signs: Vital Signs Temperature 98 F 08/20/17 14:00 Pulse Rate 102 H 08/20/17 14:00 Respiratory Rate 16 08/20/17 14:00 Blood Pressure 124/72 08/20/17 14:00 O2 Sat by Pulse Oximetry (%) 97 08/20/17 09:00 Constitutional: Yes: Calm Cardiovascular: Yes: WNL Respiratory: Yes: Regular Gastrointestinal: Yes: Soft, Tenderness (Mild diffuse tenderness), Other ( Partially reducible umbilical hernia with pain No erythema). No: Distention, Tenderness, Rebound Neurological: Yes: Alert, Oriented Labs: CBC, BMP 08/20/17 06:20 08/20/17 06:20 Problem List - Problems (1) Umbilical hernia Code(s): K42.9 - UMBILICAL HERNIA WITHOUT OBSTRUCTION OR GANGRENE Qualifiers: Obstruction and gangrene presence: without obstruction or gangrene Qualified Code(s): K42.9 - Umbilical hernia without obstruction or gangrene Assessment/Plan Chronic pancreatitis Umbilical hernia- partially reducible, pain on exam at hernia site Likely contributing to his abdominal pain Discussed options Would like the hernia repaired during this admission Discussed with Primary team and Cardiology Plavix being held Can continue ASA Plan for umbilical hernia repair with possible mesh on wednesday08/24/17
[2017-08-20] MEDS: HYDROmorphone HCL CARPU-JECT 1 MG/1 ML DISP.SYRIN IVPB PRN ×2 (19:20→23:21)
[2017-08-20 20:56] VITALS: BMI 33.7
[2017-08-20] MEDS: ROSUVASTATIN CA 10 MG TABLET (FP) PO SCH (22:38)
[2017-08-20] MEDS: GABAPENTIN 400 MG CAPSULE (FP) PO SCH (22:38)
[2017-08-20] MEDS: MONTELUKAST NA 10 MG TABLET PO SCH (22:38)
[2017-08-21] MEDS: HYDROmorphone HCL CARPU-JECT 1 MG/1 ML DISP.SYRIN IVPB PRN ×2 (03:19→07:01)
[2017-08-21] MEDS: SODIUM CHLORIDE 1,000 ML IV SCH ×2 (03:20→13:00)
[2017-08-21] MEDS: INSULIN SLIDING SCALE (NOVOLOG) 1 VIAL SQ SCH ×4 (06:07→21:47)
[2017-08-21] MEDS ORDERED: PT OWN MED DRAWER 7, Y5N ONE ×4 (08:03→21:26)
[2017-08-21 08:07] LABS: BASO % 0.4 % (0-2.0); EOS % 1.3 % (0-4.5); HEMATOCRIT 34.3 % (35.4-49); HEMOGLOBIN 10.9 GM/dL (11.7-16.9); LYMPH % 29.8 % (8-40); MCH 26.2 pg (25.7-33.7); MCHC 31.8 g/dl (32.0-35.9); MEAN CELL VOLUME 82.2 fl (80-96); MEAN PLT VOLUME 7.1 fl (7.5-11.1); MONO % 11.7 % (3.8-10.2); NEUT % 56.8 % (42.8-82.8); PLATELET COUNT 358 K/MM3 (134-434); RBC 4.18 M/mm3 (4.00-5.60); RDW 14.1 % (11.9-15.9); WHITE BLOOD COUNT 9.7 K/mm3 (4.0-10.0)
[2017-08-21 08:28] LABS: INR 1.22 (0.82-1.09); PROTHROMBIN TIME (PATIENT) 13.8 SEC (9.98-11.88)
[2017-08-21 08:31] LABS: ACTIVATED PTT 24.5 SECONDS (26.9-34.4)
[2017-08-21 08:42] LABS: ANION GAP 11 (8-16); BLOOD UREA NITROGEN 20 mg/dL (7-18); CALCIUM 8.4 mg/dL (8.5-10.1); CHLORIDE 103 mmol/L (98-107); CO2 24 mmol/L (21-32); GLUCOSE,RANDOM 163 mg/dL (74-106); POTASSIUM 3.9 mmol/L (3.5-5.1); SODIUM 138 mmol/L (136-145)
[2017-08-21 08:43] LABS: CREATININE 1.7 mg/dL (0.7-1.3)
[2017-08-21] MEDS: TAMSULOSIN HCL 0.4 MG CAP.ER.24H (FP) PO SCH (09:05)
[2017-08-21] MEDS: amLODIPine BESYLATE 2.5 MG TABLET (FP) PO SCH (09:59)
[2017-08-21] MEDS: GABAPENTIN 300 MG CAPSULE (FP) PO SCH (10:00)
[2017-08-21] MEDS: ASPIRIN COATED 81 MG TABLET.EC PO SCH (10:02)
[2017-08-21] MEDS: PANTOPRAZOLE 40 MG TABLET (FP) PO SCH (10:02)
[2017-08-21] MEDS: FINASTERIDE 5 MG TABLET (FP) PO SCH (10:03)
[2017-08-21] MEDS: RAMIPRIL 5 MG CAPSULE (FP) PO SCH (10:05)
[2017-08-21] MEDS: LIPASE/PROTEASE/AMYLASE 36,000 UNIT CAPSULE PO SCH ×3 (10:06→18:10)
[2017-08-21] MEDS: BUDESONIDE/FORMETEROL FUMARATE 160/4.5 mcg INHALER IH SCH ×2 (10:15→21:39)
[2017-08-21] MEDS: TIOTROPIUM BROMIDE 18 MCG/INH (DEVICE W/ 5 CAPSULES) IH SCH (10:17)
[2017-08-21] MEDS: EZETIMIBE 10 MG TABLET (FP) PO SCH (10:20)
[2017-08-21] MEDS: HYDROmorphone HCL CARPU-JECT 4 MG/1 ML DISP.SYRIN IVPB PRN ×3 (13:08→21:30)
--- NOTE | 2017-08-21 13:53 | PN ---
Progress Note, Physician - Current Medication List Current Medications: Active Medications Albuterol/Ipratropium (Duoneb -) 1 amp NEB Q6H PRN PRN Reason: SHORTNESS OF BREATH Last Admin: 08/20/17 20:25 Dose: 1 amp Amlodipine Besylate (Norvasc -) 10 mg PO DAILY [facility] Last Admin: 08/21/17 09:59 Dose: 10 mg Aspirin (Ecotrin -) 81 mg PO DAILY [facility] Last Admin: 08/21/17 10:02 Dose: 81 mg Budesonide/Formoterol Fumarate (Symbicort 160/4.5mcg -) 1 puff IH BID [facility] Last Admin: 08/21/17 10:15 Dose: 1 puff Ezetimibe (Zetia -) 10 mg PO DAILY [facility] Last Admin: 08/21/17 10:20 Dose: 10 mg Finasteride (Proscar -) 5 mg PO DAILY [facility] Last Admin: 08/21/17 10:03 Dose: 5 mg Gabapentin (Neurontin -) 600 mg PO DAILY [facility] Last Admin: 08/21/17 10:00 Dose: 600 mg Gabapentin (Neurontin -) 800 mg PO HS [facility] Last Admin: 08/20/17 22:38 Dose: 800 mg Hydromorphone HCl (Dilaudid Injection -) 4 mg IVPB Q4H PRN PRN Reason: PAIN LEVEL 7 - 10 Last Admin: 08/21/17 13:08 Dose: 4 mg Levofloxacin (Levaquin 500 Mg Premixed Ivpb -) 500 mg in 100 mls @ 100 mls/hr IVPB DAILY [facility] Last Admin: 08/21/17 10:04 Dose: 100 mls/hr Sodium Chloride (Normal Saline -) 1,000 mls @ 75 mls/hr IV ASDIR [facility] Last Admin: 08/21/17 13:00 Dose: 75 mls/hr Insulin Aspart (Novolog Vial Sliding Scale -) 1 vial SQ ACHS [facility] PRN Reason: Protocol Last Admin: 08/21/17 13:09 Dose: Not Given Montelukast Sodium (Singulair -) 10 mg PO HS [facility] Last Admin: 08/20/17 22:38 Dose: 10 mg Pancrelipase (Creon Dr 36,000 Units Capsule) 1 cap PO TIDCM [facility] Last Admin: 08/21/17 13:00 Dose: Not Given Pantoprazole Sodium (Protonix -) 40 mg PO DAILY [facility] Last Admin: 08/21/17 10:02 Dose: 40 mg Ramipril (Altace -) 10 mg PO DAILY [facility] Last Admin: 08/21/17 10:05 Dose: 10 mg Rosuvastatin Calcium (Crestor -) 10 mg PO HS [facility] Last Admin: 08/20/17 22:38 Dose: 10 mg Tamsulosin HCl (Flomax -) 0.4 mg PO DAILY@0830 [facility] Last Admin: 08/21/17 09:05 Dose: 0.4 mg Tiotropium [place] (Spiriva -) 1 puff IH DAILY [facility] Last Admin: 08/21/17 10:17 Dose: 1 puff - Objective Vital Signs: Vital Signs Temperature 97.9 F 08/21/17 06:00 Pulse Rate 83 08/21/17 06:00 Respiratory Rate 18 08/20/17 20:46 Blood Pressure 123/70 08/21/17 06:00 O2 Sat by Pulse Oximetry (%) 96 08/20/17 20:46 Cardiovascular: Yes: S1, S2 Respiratory: Yes: Regular, CTA Bilaterally Gastrointestinal: Yes: Normal Bowel Sounds, Soft Labs: CBC, BMP 08/21/17 06:55 08/21/17 06:55 INR, PTT INR 1.22 (0.82-1.09) H 08/21/17 06:55 Problem List - Problems (1) Chronic pancreatitis Assessment/Plan: MONITOR GI ON CASE Code(s): K86.1 - OTHER CHRONIC PANCREATITIS Qualifiers: Pancreatitis type: unspecified pancreatitis type Qualified Code(s): K86.1 - Other chronic pancreatitis (2) 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 Assessment/Plan: BG ENDO Code(s): E10.8 - TYPE 1 DIABETES MELLITUS WITH UNSPECIFIED COMPLICATIONS (3) CHF (congestive heart failure) Assessment/Plan: NO SIGNS OF FAILURE TRACE EDEMA MAY BE FROM NORVASC DECREASE NORVASC TO 5 AND INCREASE ALTACE TO 20 Code(s): I50.9 - HEART FAILURE, UNSPECIFIED (4) Pneumonia Assessment/Plan: IV ABX ID ON CASE Code(s): J18.9 - PNEUMONIA, UNSPECIFIED ORGANISM Qualifiers: Pneumonia type: due to unspecified organism Laterality: right Lung location: unspecified part of lung Qualified Code(s): J18.9 - Pneumonia, unspecified organism (5) Umbilical hernia Assessment/Plan: PT CONSIDERING SURGERY Code(s): K42.9 - UMBILICAL HERNIA WITHOUT OBSTRUCTION OR GANGRENE Qualifiers: Obstruction and gangrene presence: without obstruction or gangrene Qualified Code(s): K42.9 - Umbilical hernia without obstruction or gangrene (6) COPD (chronic obstructive pulmonary disease) Code(s): J44.9 - CHRONIC OBSTRUCTIVE PULMONARY DISEASE, UNSPECIFIED (7) Coronary artery disease Assessment/Plan: NO CP FU CE Code(s): I25.10 - ATHSCL HEART DISEASE OF [place] CORONARY ARTERY W/O ANG PCTRS
--- NOTE | 2017-08-21 15:41 | PN ---
Progress Note, Physician History of Present Illness: Abdominal pain associated with nausea and anorexia slowly improving, ruled out for mesenteric ischemia, UGI series unrevealing, planned for umbilical hernia repair. - Current Medication List Current Medications: Active Medications Albuterol/Ipratropium (Duoneb -) 1 amp NEB Q6H PRN PRN Reason: SHORTNESS OF BREATH Last Admin: 08/20/17 20:25 Dose: 1 amp Amlodipine Besylate (Norvasc -) 5 mg PO DAILY [facility] Aspirin (Ecotrin -) 81 mg PO DAILY [facility] Last Admin: 08/21/17 10:02 Dose: 81 mg Budesonide/Formoterol Fumarate (Symbicort 160/4.5mcg -) 1 puff IH BID [facility] Last Admin: 08/21/17 10:15 Dose: 1 puff Ezetimibe (Zetia -) 10 mg PO DAILY [facility] Last Admin: 08/21/17 10:20 Dose: 10 mg Finasteride (Proscar -) 5 mg PO DAILY [facility] Last Admin: 08/21/17 10:03 Dose: 5 mg Gabapentin (Neurontin -) 600 mg PO DAILY [facility] Last Admin: 08/21/17 10:00 Dose: 600 mg Gabapentin (Neurontin -) 800 mg PO HS [facility] Last Admin: 08/20/17 22:38 Dose: 800 mg Hydromorphone HCl (Dilaudid Injection -) 4 mg IVPB Q4H PRN PRN Reason: PAIN LEVEL 7 - 10 Last Admin: 08/21/17 13:08 Dose: 4 mg Levofloxacin (Levaquin 500 Mg Premixed Ivpb -) 500 mg in 100 mls @ 100 mls/hr IVPB DAILY [facility] Last Admin: 08/21/17 10:04 Dose: 100 mls/hr Sodium Chloride (Normal Saline -) 1,000 mls @ 75 mls/hr IV ASDIR [facility] Last Admin: 08/21/17 13:00 Dose: 75 mls/hr Insulin Aspart (Novolog Vial Sliding Scale -) 1 vial SQ ACHS [facility] PRN Reason: Protocol Last Admin: 08/21/17 13:09 Dose: Not Given Montelukast Sodium (Singulair -) 10 mg PO HS [facility] Last Admin: 08/20/17 22:38 Dose: 10 mg Pancrelipase (Creon Dr 36,000 Units Capsule) 1 cap PO TIDCM [facility] Last Admin: 08/21/17 13:00 Dose: Not Given Pantoprazole Sodium (Protonix -) 40 mg PO DAILY [facility] Last Admin: 08/21/17 10:02 Dose: 40 mg Ramipril (Altace -) 20 mg PO DAILY [facility] Rosuvastatin Calcium (Crestor -) 10 mg PO HS [facility] Last Admin: 08/20/17 22:38 Dose: 10 mg Tamsulosin HCl (Flomax -) 0.4 mg PO DAILY@0830 [facility] Last Admin: 08/21/17 09:05 Dose: 0.4 mg Tiotropium [place] (Spiriva -) 1 puff IH DAILY [facility] Last Admin: 08/21/17 10:17 Dose: 1 puff - Objective Vital Signs: Vital Signs Temperature 97.8 F 08/21/17 14:27 Pulse Rate 87 08/21/17 14:27 Respiratory Rate 18 08/21/17 14:27 Blood Pressure 131/84 08/21/17 14:27 O2 Sat by Pulse Oximetry (%) 96 08/21/17 10:00 Constitutional: Yes: No Distress, Calm Neck: Yes: Supple Cardiovascular: Yes: Regular Rate and Rhythm Respiratory: Yes: Regular, Diminished Gastrointestinal: Yes: Soft, Hypoactive Bowel Sounds, Other (Umbilical herna) Edema: No Labs: CBC, BMP 08/21/17 06:55 08/21/17 06:55 INR, PTT INR 1.22 (0.82-1.09) H 08/21/17 06:55 - ....Imaging X-ray: Report Reviewed (UGI series: Negative) Problem List - Problems (1) Chest pain Code(s): R07.9 - CHEST PAIN, UNSPECIFIED Qualifiers: Chest pain type: unspecified Qualified Code(s): R07.9 - Chest pain, unspecified (2) Chronic pancreatitis Code(s): K86.1 - OTHER CHRONIC PANCREATITIS Qualifiers: Pancreatitis type: unspecified pancreatitis type Qualified Code(s): K86.1 - Other chronic pancreatitis (3) Abdominal pain Code(s): R10.9 - UNSPECIFIED ABDOMINAL PAIN Qualifiers: Abdominal location: upper abdomen, unspecified Qualified Code(s): R10.10 - Upper abdominal pain, unspecified (4) Asthma Code(s): J45.909 - UNSPECIFIED ASTHMA, UNCOMPLICATED Qualifiers: Asthma severity: unspecified severity (5) COPD (chronic obstructive pulmonary disease) Code(s): J44.9 - CHRONIC OBSTRUCTIVE PULMONARY DISEASE, UNSPECIFIED (6) Chronic diastolic (congestive) heart failure Code(s): I50.32 - CHRONIC DIASTOLIC (CONGESTIVE) HEART FAILURE (7) Coronary artery disease Code(s): I25.10 - ATHSCL HEART DISEASE OF [place] CORONARY ARTERY W/O ANG PCTRS (8) Diabetes mellitus Code(s): E11.9 - TYPE 2 DIABETES MELLITUS WITHOUT COMPLICATIONS Qualifiers: Diabetes mellitus type: type 2 Diabetes mellitus complication detail: with unspecified neuropathy (9) Esophagitis determined by endoscopy Code(s): K20.9 - ESOPHAGITIS, UNSPECIFIED (10) Hyperlipidemia Code(s): E78.5 - HYPERLIPIDEMIA, UNSPECIFIED (11) Hypertension Code(s): I10 - ESSENTIAL (PRIMARY) HYPERTENSION (12) Hypertension associated with diabetes Code(s): E11.59 - TYPE 2 DIABETES MELLITUS WITH OTH CIRCULATORY COMPLICATIONS; I10 - ESSENTIAL (PRIMARY) HYPERTENSION (13) IPMN (intraductal papillary mucinous neoplasm) Code(s): D49.0 - NEOPLASM OF UNSPECIFIED BEHAVIOR OF DIGESTIVE SYSTEM (14) Myocardial infarct Code(s): I21.3 - ST ELEVATION (STEMI) MYOCARDIAL INFARCTION OF UNS SITE (15) GRACIE (obstructive sleep apnea) Code(s): G47.33 - OBSTRUCTIVE SLEEP APNEA (ADULT) (PEDIATRIC) (16) Type 2 diabetes mellitus with diabetic neuropathy Code(s): E11.40 - TYPE 2 DIABETES MELLITUS WITH DIABETIC NEUROPATHY, [facility] Assessment/Plan 07/16/2016 Nuclear stress test noted, inferior infarct with mild rosamaria-infarct ischemia, inferior hypokinesis, mild to mod LV dysfunction. 04/10/2016 Echo: Mild cLVH, normal LV fxn, mild LAE, mild MR, TR 1. Pre-operative cardiovascular evaluation prior to umbilical hernia repair Chronic pancreatitis, IPMN followed via Dr. Friend EUS, esophagitis 2. Chronic atypical chest pain 3. CAD s/p [place], post PCI (stent), angina pectoris 4. HTN/HCVD 5. Hyperlipidemia 6. Diastolic dysfunction, pulm HTN 7. OSAS 8. COPD/Asthma, no clinical evidence of PNA 9. Acute on CKD P:1. Bowel rest with IVF and d/c diuretics, analgesia as needed, pancreatic enzymes 2. Continue ASA 81 qd, Zetia 10 qd, Altace 20 qd (may need to hold if renal function continues to deteriorate), Crestor 10 qd and Norvasc 5 qd 3. BD, Singulair, O2 as needed, abx course 4. Case discussed with Dr. Cabrera, he's planned for umbilical hernia repair. Given absence of symptoms of acute coronary syndrome, decompensated CHF or malignant arrhythmia and most recent stress testing 07/16/2016 showing inferior infarct with mild-perinfarct ischemia, may proceed with surgery from cardiovascular standpoint without further testing. Discontinue Plavix (most recent PCI>2 years ago) and continue ASA 81 mg daily rosamaria-operatively and to renew Plavix once post-op hemostasis has been achieved.
--- NOTE | 2017-08-21 17:11 | HOSP ---
Physical Examination Vital Signs: Vital Signs Temperature 97.8 F 08/21/17 14:27 Pulse Rate 87 08/21/17 14:27 Respiratory Rate 18 08/21/17 14:27 Blood Pressure 131/84 08/21/17 14:27 O2 Sat by Pulse Oximetry (%) 96 08/21/17 10:00 Findings/Remarks: Called by RN that patient had a difficult time urinating and when he strained, he began urinating blood. Per RN, no clots, but da red blood. Plan: - F/u stat CBC to evaluate Hgb (noticed drop in Hgb from yesterdays labs to today) - Cr increased to 1.7 today (from 1.2 yesterday). Bleeding may be 2/2 kidney stone. LOVE may be 2/2 obstructing kidney stone - F/u kidney/bladder ultrasound - F/u UA/urine culture (dysuria) - Strain all urine Labs: CBC, BMP 08/21/17 06:55 08/21/17 06:55
[2017-08-21 17:44] LABS: HEMATOCRIT 33.7 % (35.4-49); HEMOGLOBIN 11.4 GM/dL (11.7-16.9); MCH 27.3 pg (25.7-33.7); MCHC 33.7 g/dl (32.0-35.9); MEAN PLT VOLUME 6.7 fl (7.5-11.1); PLATELET COUNT 354 K/MM3 (134-434); RBC 4.16 M/mm3 (4.00-5.60); WHITE BLOOD COUNT 8.5 K/mm3 (4.0-10.0)
[2017-08-21] MEDS ORDERED: HYDROmorphone HCL CARPU-JECT 1 MG/1 ML DISP.SYRIN IVPB ONE (20:09)
[2017-08-21] MEDS: ALBUTEROL SO4 2.5/IPRATROPIUM 0.5 INH SOL 3 ML VIAL.NEB. NEB PRN (21:14)
[2017-08-21] MEDS: MONTELUKAST NA 10 MG TABLET PO SCH (21:39)
[2017-08-21] MEDS: GABAPENTIN 400 MG CAPSULE (FP) PO SCH (21:39)
[2017-08-21] MEDS: ROSUVASTATIN CA 10 MG TABLET (FP) PO SCH (21:40)
[2017-08-21 22:22] LABS: URINE APPEARANCE CLEAR; URINE BILIRUBIN NEGATIVE (NEGATIVE); URINE BLOOD 3+ (NEGATIVE); URINE COLOR DK. RED; URINE GLUCOSE (UA) TRACE (NEGATIVE); URINE KETONE 1+ (NEGATIVE)
[2017-08-21 22:27] LABS: URINE LEUK ESTERASE 2+ (NEGATIVE); URINE NITRITE POSITIVE (NEGATIVE); URINE PROTEIN 3+ (NEGATIVE)
[2017-08-22] MEDS: HYDROmorphone HCL CARPU-JECT 4 MG/1 ML DISP.SYRIN IVPB PRN ×5 (01:35→23:33)
[2017-08-22] MEDS: INSULIN SLIDING SCALE (NOVOLOG) 1 VIAL SQ SCH ×4 (06:22→21:18)
[2017-08-22 07:46] LABS: BASO % 0.5 % (0-2.0); EOS % 1.4 % (0-4.5); HEMOGLOBIN 11.1 GM/dL (11.7-16.9); MCH 26.6 pg (25.7-33.7); MCHC 32.7 g/dl (32.0-35.9); MEAN CELL VOLUME 81.3 fl (80-96); MEAN PLT VOLUME 7.1 fl (7.5-11.1); MONO % 9.7 % (3.8-10.2); NEUT % 54.4 % (42.8-82.8); PLATELET COUNT 350 K/MM3 (134-434); RBC 4.18 M/mm3 (4.00-5.60); RDW 14.1 % (11.9-15.9); WHITE BLOOD COUNT 10.1 K/mm3 (4.0-10.0)
[2017-08-22 08:05] LABS: ALBUMIN 2.9 g/dl (3.4-5.0); ANION GAP 7 (8-16); BILIRUBIN,TOTAL 0.3 mg/dL (0.2-1.0); BLOOD UREA NITROGEN 17 mg/dL (7-18); CALCIUM 8.2 mg/dL (8.5-10.1); CHLORIDE 104 mmol/L (98-107); CO2 26 mmol/L (21-32); CREATININE 1.3 mg/dL (0.7-1.3); GLUCOSE,RANDOM 154 mg/dL (74-106); POTASSIUM 4.2 mmol/L (3.5-5.1); SGOT/AST 41 U/L (15-37); SGPT/ALT 53 U/L (12-78); SODIUM 137 mmol/L (136-145)
[2017-08-22 08:08] LABS: ALK PHOS 89 U/L (45-117); TOT PROT 5.9 g/dl (6.4-8.2)
[2017-08-22] MEDS: LIPASE/PROTEASE/AMYLASE 36,000 UNIT CAPSULE PO SCH ×3 (08:30→18:20)
[2017-08-22] MEDS: ALBUTEROL SO4 2.5/IPRATROPIUM 0.5 INH SOL 3 ML VIAL.NEB. NEB PRN ×2 (08:58→14:46)
[2017-08-22] MEDS: TAMSULOSIN HCL 0.4 MG CAP.ER.24H (FP) PO SCH (09:35)
[2017-08-22] MEDS: GABAPENTIN 300 MG CAPSULE (FP) PO SCH (09:35)
[2017-08-22] MEDS: PANTOPRAZOLE 40 MG TABLET (FP) PO SCH (09:38)
[2017-08-22] MEDS: ASPIRIN COATED 81 MG TABLET.EC PO SCH (09:38)
[2017-08-22] MEDS: FINASTERIDE 5 MG TABLET (FP) PO SCH (09:38)
[2017-08-22] MEDS: amLODIPine BESYLATE 2.5 MG TABLET (FP) PO SCH (09:38)
[2017-08-22] MEDS: RAMIPRIL 5 MG CAPSULE (FP) PO SCH (09:39)
[2017-08-22] MEDS ORDERED: PT OWN MED DRAWER 7, Y5N ONE (09:43)
[2017-08-22] MEDS: TIOTROPIUM BROMIDE 18 MCG/INH (DEVICE W/ 5 CAPSULES) IH SCH (09:46)
[2017-08-22] MEDS: BUDESONIDE/FORMETEROL FUMARATE 160/4.5 mcg INHALER IH SCH ×2 (09:46→21:21)
--- NOTE | 2017-08-22 09:48 | CON.GU ---
Consult - History of Present Illness History of Present Illness: 61 yo male admitted with abdominal pain, h/o chronic pancreatitis. Now noted to have gross hematuria. CTA several days ago revealed to reveal any kidney abnormality. 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 Planned EMG/ NCVs studies and evaluation of motor weakness in process by treating neurologist Dr. Singh) Cardio/Vascular: Yes: CAD (Last stents placed x 2 last year per patient), CHF (s /p [place] several years ago; s/p stenting. mild CHF in the past.), HTN, Hyperlipdemia, [place], Pulmonary Hypertension Pulmonary: Yes: Asthma, Sleep Apnea Gastrointestinal: Yes: Constipation, Pancreatitis (? history of chronic pancreatitis with episodes of acute pancreatitis), Other (FECAL INCONTINENCE SECONDARY TO OVERFLOW followed by Dr. Abdoulaye Wu, IPMN, PANCREATITIS . HAD EPISODE OF ISCHEMIC COLITIS LAST ADMISSION) Renal/: Yes: BPH Psych: Yes: Depression Musculoskeletal: Yes: Chronic low back pain, Other (CHRONIC NECK PAIN s/p Lumbar and Cervical fusion ) Endocrine: Yes: Diabetes Mellitus (has insulin pump) - Past Surgical History Past Surgical History: Yes: Breast Biopsy, Colonoscopy, Laminectomy, Stent (1 non eluting, 5 eluting) Additional Surgical History: Tracheostomy - Alcohol/Substance Use Hx Alcohol Use: No History of Substance Use: reports: None, Prescription (opiates for chronic pain post cervical spine surgery. 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 History of Recent Travel: No Home Medications - Allergies Allergies/Adverse Reactions: Allergies Allergy/AdvReac Type Severity Reaction Status Date / Time shellfish derived Allergy Severe Verified 08/18/17 13:42 Tetracyclines Allergy Severe Verified 08/18/17 13:42 - Home Medications Home Medications: Ambulatory Orders Albuterol 0.083% Nebulizer Elena [Ventolin 0.083%] 1 neb NEB Q4H 08/18/17 Albuterol Sulfate Inhaler - [Ventolin Hfa Inhaler -] 1 - 2 inh PO Q4H PRN Amlodipine Besylate [Norvasc -] 0 mg PO DAILY 08/18/17 Arformoterol Tartrate [Brovana] 15 mcg IH ASDIR 08/18/17 Aspirin [Aspirin EC] 81 mg PO DAILY 08/18/17 Budesonide/Formeterol Fumarate [SYMBICORT 160/4.5mcg -] 1 inh PO DAILY 08/18/17 Clopidogrel Bisulfate [Plavix] 75 mg PO DAILY 08/18/17 Dexlansoprazole [Dexilant] 30 mg PO DAILY 08/18/17 Diazepam [Valium] 5 mg PO PRN PRN 08/18/17 Ezetimibe [Zetia -] 10 mg PO DAILY 08/18/17 Furosemide [Lasix] 40 mg PO DAILY 08/18/17 Insulin Lispro [Humalog] 0 unit SQ PRN PRN 08/18/17 Insulin Pump Controller [Snap Insulin Pump Controller] 1 each ASDIR 08/18/17 Montelukast Sodium [Singulair] 10 mg PO DAILY 08/18/17 Ramipril [Altace] 10 mg PO DAILY 08/18/17 Ranitidine HCl 150 mg PO PRN PRN 08/18/17 Rosuvastatin Calcium [Crestor] 10 mg PO DAILY 08/18/17 Tiotropium [place] [Spiriva -] 1 puff IH DAILY 08/18/17 Family Disease History - Family Disease History Family Disease History: Diabetes: Mother ( 58: diabetic complications), CA: Father ( 49: asbestosis), Respiratory: Brother (bronchial asthma, DVT), Other: Mother, Sister (BCA), Son (2, healthy), Daughter (1, healthy) Other Family History: No family history of colorectal cancer Physical Exam- Vital Signs: Vital Signs Temperature 98.2 F 08/22/17 09:13 Pulse Rate 90 08/22/17 09:13 Respiratory Rate 19 08/22/17 09:13 Blood Pressure 140/82 08/22/17 09:13 O2 Sat by Pulse Oximetry (%) 96 08/21/17 21:00 Renal/: Yes: Hematuria Labs: CBC, BMP 08/22/17 07:00 08/22/17 07:00 Imaging - Results Cat Scan: Report Reviewed Problem List - Problems (1) Hematuria Assessment/Plan: await urine culture, await renal sono Code(s): R31.9 - HEMATURIA, UNSPECIFIED
[2017-08-22] MEDS: EZETIMIBE 10 MG TABLET (FP) PO SCH (09:50)
--- NOTE | 2017-08-22 10:36 | PN ---
Progress Note, Physician Chief Complaint: Pneumonia, Hematuria, Umbilical hernia - Current Medication List Current Medications: Active Medications Albuterol/Ipratropium (Duoneb -) 1 amp NEB Q6H PRN PRN Reason: SHORTNESS OF BREATH Last Admin: 08/22/17 08:58 Dose: 1 amp Amlodipine Besylate (Norvasc -) 5 mg PO DAILY [facility] Last Admin: 08/22/17 09:38 Dose: 5 mg Aspirin (Ecotrin -) 81 mg PO DAILY [facility] Last Admin: 08/22/17 09:38 Dose: 81 mg Budesonide/Formoterol Fumarate (Symbicort 160/4.5mcg -) 1 puff IH BID [facility] Last Admin: 08/22/17 09:46 Dose: 1 puff Ezetimibe (Zetia -) 10 mg PO DAILY [facility] Last Admin: 08/22/17 09:50 Dose: 10 mg Finasteride (Proscar -) 5 mg PO DAILY [facility] Last Admin: 08/22/17 09:38 Dose: 5 mg Gabapentin (Neurontin -) 600 mg PO DAILY [facility] Last Admin: 08/22/17 09:35 Dose: 600 mg Gabapentin (Neurontin -) 800 mg PO HS [facility] Last Admin: 08/21/17 21:39 Dose: 800 mg Hydromorphone HCl (Dilaudid Injection -) 4 mg IVPB Q4H PRN PRN Reason: PAIN LEVEL 7 - 10 Last Admin: 08/22/17 09:39 Dose: 4 mg Levofloxacin (Levaquin 500 Mg Premixed Ivpb -) 500 mg in 100 mls @ 100 mls/hr IVPB DAILY [facility] Last Admin: 08/22/17 09:39 Dose: 100 mls/hr Sodium Chloride (Normal Saline -) 1,000 mls @ 75 mls/hr IV ASDIR [facility] Last Admin: 08/21/17 13:00 Dose: 75 mls/hr Insulin Aspart (Novolog Vial Sliding Scale -) 1 vial SQ ACHS [facility] PRN Reason: Protocol Last Admin: 08/22/17 06:22 Dose: Not Given Montelukast Sodium (Singulair -) 10 mg PO HS [facility] Last Admin: 08/21/17 21:39 Dose: 10 mg Pancrelipase (Creon Dr 36,000 Units Capsule) 1 cap PO TIDCM [facility] Last Admin: 08/22/17 08:30 Dose: 1 cap Pantoprazole Sodium (Protonix -) 40 mg PO DAILY [facility] Last Admin: 08/22/17 09:38 Dose: 40 mg Ramipril (Altace -) 20 mg PO DAILY [facility] Last Admin: 08/22/17 09:39 Dose: 20 mg Rosuvastatin Calcium (Crestor -) 10 mg PO HS [facility] Last Admin: 08/21/17 21:40 Dose: 10 mg Tamsulosin HCl (Flomax -) 0.4 mg PO DAILY@0830 [facility] Last Admin: 08/22/17 09:35 Dose: 0.4 mg Tiotropium [place] (Spiriva -) 1 puff IH DAILY [facility] Last Admin: 08/22/17 09:46 Dose: 1 puff - Objective Vital Signs: Vital Signs Temperature 98.2 F 08/22/17 09:13 Pulse Rate 90 08/22/17 09:13 Respiratory Rate 19 08/22/17 09:13 Blood Pressure 140/82 08/22/17 09:13 O2 Sat by Pulse Oximetry (%) 96 08/21/17 21:00 Constitutional: Yes: Well Nourished, No Distress, Calm Cardiovascular: Yes: Regular Rate and Rhythm Respiratory: Yes: Regular Gastrointestinal: Yes: Normal Bowel Sounds, Soft Musculoskeletal: Yes: WNL Extremities: Yes: WNL Edema: No Peripheral Pulses WNL: Yes Neurological: Yes: Alert, Oriented Psychiatric: Yes: Alert, Oriented Labs: CBC, BMP 08/22/17 07:00 08/22/17 07:00 INR, PTT INR 1.22 (0.82-1.09) H 08/21/17 06:55 Problem List - Problems (1) Hematuria Assessment/Plan: -seen by Urology -UA +3 blood -UC pending -has BPH, on tamsulosin and finestride Code(s): R31.9 - HEMATURIA, UNSPECIFIED (2) Pneumonia Assessment/Plan: -seen by ID -IV abx -seen by pulmonary -bronchodilators -afebrile Code(s): J18.9 - PNEUMONIA, UNSPECIFIED ORGANISM Qualifiers: Pneumonia type: due to unspecified organism Laterality: right Lung location: unspecified part of lung Qualified Code(s): J18.9 - Pneumonia, unspecified organism (3) Umbilical hernia Assessment/Plan: -seen by GI surgery -Plavix being held -Can continue ASA -Plan for umbilical hernia repair with possible mesh on wednesday08/24/17 Code(s): K42.9 - UMBILICAL HERNIA WITHOUT OBSTRUCTION OR GANGRENE Qualifiers: Obstruction and gangrene presence: without obstruction or gangrene Qualified Code(s): K42.9 - Umbilical hernia without obstruction or gangrene (4) ASHD (arteriosclerotic heart disease) Assessment/Plan: -seen by Cardiology -Plavix being helt -on Zetia -asa 81 mg Code(s): I25.10 - ATHSCL HEART DISEASE OF [place] CORONARY ARTERY W/O ANG PCTRS Assessment/Plan see problem list
[2017-08-22] MEDS: SODIUM CHLORIDE 1,000 ML IV SCH ×2 (13:50→19:55)
--- NOTE | 2017-08-22 13:58 | PN ---
Progress Note, Physician History of Present Illness: Abdominal pain associated with nausea and anorexia slowly improving, ruled out for mesenteric ischemia, UGI series unrevealing, planned for umbilical hernia repair. Hematuria last pm. - Current Medication List Current Medications: Active Medications Albuterol/Ipratropium (Duoneb -) 1 amp NEB Q6H PRN PRN Reason: SHORTNESS OF BREATH Last Admin: 08/22/17 08:58 Dose: 1 amp Amlodipine Besylate (Norvasc -) 5 mg PO DAILY [facility] Last Admin: 08/22/17 09:38 Dose: 5 mg Aspirin (Ecotrin -) 81 mg PO DAILY [facility] Last Admin: 08/22/17 09:38 Dose: 81 mg Budesonide/Formoterol Fumarate (Symbicort 160/4.5mcg -) 1 puff IH BID [facility] Last Admin: 08/22/17 09:46 Dose: 1 puff Ezetimibe (Zetia -) 10 mg PO DAILY [facility] Last Admin: 08/22/17 09:50 Dose: 10 mg Finasteride (Proscar -) 5 mg PO DAILY [facility] Last Admin: 08/22/17 09:38 Dose: 5 mg Gabapentin (Neurontin -) 600 mg PO DAILY [facility] Last Admin: 08/22/17 09:35 Dose: 600 mg Gabapentin (Neurontin -) 800 mg PO HS [facility] Last Admin: 08/21/17 21:39 Dose: 800 mg Hydromorphone HCl (Dilaudid Injection -) 4 mg IVPB Q4H PRN PRN Reason: PAIN LEVEL 7 - 10 Last Admin: 08/22/17 13:48 Dose: 4 mg Levofloxacin (Levaquin 500 Mg Premixed Ivpb -) 500 mg in 100 mls @ 100 mls/hr IVPB DAILY [facility] Last Admin: 08/22/17 09:39 Dose: 100 mls/hr Sodium Chloride (Normal Saline -) 1,000 mls @ 75 mls/hr IV ASDIR [facility] Last Admin: 08/22/17 13:50 Dose: 75 mls/hr Insulin Aspart (Novolog Vial Sliding Scale -) 1 vial SQ ACHS [facility] PRN Reason: Protocol Last Admin: 08/22/17 11:49 Dose: Not Given Montelukast Sodium (Singulair -) 10 mg PO HS [facility] Last Admin: 08/21/17 21:39 Dose: 10 mg Pancrelipase (Creon Dr 36,000 Units Capsule) 1 cap PO TIDCM [facility] Last Admin: 08/22/17 11:51 Dose: 1 cap Pantoprazole Sodium (Protonix -) 40 mg PO DAILY [facility] Last Admin: 08/22/17 09:38 Dose: 40 mg Ramipril (Altace -) 20 mg PO DAILY [facility] Last Admin: 08/22/17 09:39 Dose: 20 mg Rosuvastatin Calcium (Crestor -) 10 mg PO HS [facility] Last Admin: 08/21/17 21:40 Dose: 10 mg Tamsulosin HCl (Flomax -) 0.4 mg PO DAILY@0830 [facility] Last Admin: 08/22/17 09:35 Dose: 0.4 mg Tiotropium [place] (Spiriva -) 1 puff IH DAILY [facility] Last Admin: 08/22/17 09:46 Dose: 1 puff - Objective Vital Signs: Vital Signs Temperature 98.2 F 08/22/17 09:13 Pulse Rate 90 08/22/17 09:13 Respiratory Rate 19 08/22/17 09:13 Blood Pressure 140/82 08/22/17 09:13 O2 Sat by Pulse Oximetry (%) 96 08/21/17 21:00 Constitutional: Yes: No Distress, Calm Neck: Yes: Supple Cardiovascular: Yes: Regular Rate and Rhythm Respiratory: Yes: Regular, Diminished, On Nasal O2 Gastrointestinal: Yes: Soft, Abdomen, Obese, Hypoactive Bowel Sounds Edema: No Labs: CBC, BMP 08/22/17 07:00 08/22/17 07:00 INR, PTT INR 1.22 (0.82-1.09) H 08/21/17 06:55 - ....Imaging Ultrasound: Report Reviewed (Left nonobstructive calculus without hydronephosis) Problem List - Problems (1) Chest pain Code(s): R07.9 - CHEST PAIN, UNSPECIFIED Qualifiers: Chest pain type: unspecified Qualified Code(s): R07.9 - Chest pain, unspecified (2) Chronic pancreatitis Code(s): K86.1 - OTHER CHRONIC PANCREATITIS Qualifiers: Pancreatitis type: unspecified pancreatitis type Qualified Code(s): K86.1 - Other chronic pancreatitis (3) Abdominal pain Code(s): R10.9 - UNSPECIFIED ABDOMINAL PAIN Qualifiers: Abdominal location: upper abdomen, unspecified Qualified Code(s): R10.10 - Upper abdominal pain, unspecified (4) Asthma Code(s): J45.909 - UNSPECIFIED ASTHMA, UNCOMPLICATED Qualifiers: Asthma severity: unspecified severity (5) COPD (chronic obstructive pulmonary disease) Code(s): J44.9 - CHRONIC OBSTRUCTIVE PULMONARY DISEASE, UNSPECIFIED (6) Chronic diastolic (congestive) heart failure Code(s): I50.32 - CHRONIC DIASTOLIC (CONGESTIVE) HEART FAILURE (7) Coronary artery disease Code(s): I25.10 - ATHSCL HEART DISEASE OF [place] CORONARY ARTERY W/O ANG PCTRS (8) Diabetes mellitus Code(s): E11.9 - TYPE 2 DIABETES MELLITUS WITHOUT COMPLICATIONS Qualifiers: Diabetes mellitus type: type 2 Diabetes mellitus complication detail: with unspecified neuropathy (9) Esophagitis determined by endoscopy Code(s): K20.9 - ESOPHAGITIS, UNSPECIFIED (10) Hyperlipidemia Code(s): E78.5 - HYPERLIPIDEMIA, UNSPECIFIED (11) Hypertension Code(s): I10 - ESSENTIAL (PRIMARY) HYPERTENSION (12) Hypertension associated with diabetes Code(s): E11.59 - TYPE 2 DIABETES MELLITUS WITH OTH CIRCULATORY COMPLICATIONS; I10 - ESSENTIAL (PRIMARY) HYPERTENSION (13) IPMN (intraductal papillary mucinous neoplasm) Code(s): D49.0 - NEOPLASM OF UNSPECIFIED BEHAVIOR OF DIGESTIVE SYSTEM (14) Myocardial infarct Code(s): I21.3 - ST ELEVATION (STEMI) MYOCARDIAL INFARCTION OF UNSP SITE (15) GRACIE (obstructive sleep apnea) Code(s): G47.33 - OBSTRUCTIVE SLEEP APNEA (ADULT) (PEDIATRIC) (16) Type 2 diabetes mellitus with diabetic neuropathy Code(s): E11.40 - TYPE 2 DIABETES MELLITUS WITH DIABETIC NEUROPATHY, UNSP (17) Renal calculus, left Code(s): N20.0 - CALCULUS OF KIDNEY Assessment/Plan 07/16/2016 Nuclear stress test noted, inferior infarct with mild rosamaria-infarct ischemia, inferior hypokinesis, mild to mod LV dysfunction. 04/10/2016 Echo: Mild cLVH, normal LV fxn, mild LAE, mild MR, TR 1. Pre-operative cardiovascular evaluation prior to umbilical hernia repair 2. Chronic pancreatitis, IPMN followed via Dr. Friend EUS, esophagitis 3. Chronic atypical chest pain 4. CAD s/p UT, post PCI (stent), angina pectoris 6. HTN/HCVD 5. Hyperlipidemia 6. Diastolic dysfunction, pulm HTN 7. OSAS 8. COPD/Asthma, no clinical evidence of PNA 9. Acute on CKD resolving 10. Hematuria with left nonobstructive calculus P:1. Bowel rest with IVF and d/c diuretics, analgesia as needed, pancreatic enzymes 2. Continue ASA 81 qd, Zetia 10 qd, Altace 20 qd (may need to hold if renal function continues to deteriorate), Crestor 10 qd and Norvasc 5 qd 3. BD, Singulair, O2 as needed, abx course 4. Case discussed with Dr. Cabrera, he's planned for umbilical hernia repair. Given absence of symptoms of acute coronary syndrome, decompensated CHF or malignant arrhythmia and most recent stress testing 07/16/2016 showing inferior infarct with mild-perinfarct ischemia, may proceed with surgery from cardiovascular standpoint without further testing. Discontinue Plavix (most recent PCI>2 years ago) and continue ASA 81 mg daily rosamaria-operatively and to renew Plavix once post-op hemostasis has been achieved. 5. F/u urine culture
--- NOTE | 2017-08-22 14:47 | PN ---
GI Progress Note Subjective: Complaint now is gross hematuria that started last night Complains of right lower flank pain Also complains of some SOB - Objective Vital Signs: Vital Signs Temperature 98.2 F 08/22/17 09:13 Pulse Rate 90 08/22/17 09:13 Respiratory Rate 19 08/22/17 09:13 Blood Pressure 140/82 08/22/17 09:13 O2 Sat by Pulse Oximetry (%) 96 08/21/17 21:00 Constitutional: Calm Eyes: No: Sclera Icterus Cardiovascular: Yes: Regular Rate and Rhythm Gastrointestinal Inspection: Yes: Hernia (+ umbilical hernia, non-tender, reducible) ...Auscultate: Yes: Normoactive Bowel Sounds ...Palpate: Yes: Soft. No: Hepatomegaly, Splenomegaly, Tenderness ...Percussion: No: Tympanitic Neurological: Yes: Alert, Oriented Labs: CBC, BMP 08/22/17 07:00 08/22/17 07:00 INR, PTT INR 1.22 (0.82-1.09) H 08/21/17 06:55 Problem List - Problems (1) Abdominal pain Assessment/Plan: Describes a band like pain from right lower back to right flank and pelvis. ? neurogenic in nature. Consider neuro eval Being evaluated by urology for gross hematuria Code(s): R10.9 - UNSPECIFIED ABDOMINAL PAIN Qualifiers: Abdominal location: upper abdomen, unspecified Qualified Code(s): R10.10 - Upper abdominal pain, unspecified
[2017-08-22 15:52] LABS: BASO % 0.6 % (0-2.0); EOS % 1.3 % (0-4.5); HEMOGLOBIN 10.9 GM/dL (11.7-16.9); LYMPH % 34.2 % (8-40); MCH 26.8 pg (25.7-33.7); MCHC 32.9 g/dl (32.0-35.9); MEAN CELL VOLUME 81.3 fl (80-96); MEAN PLT VOLUME 6.7 fl (7.5-11.1); MONO % 10.7 % (3.8-10.2); NEUT % 53.2 % (42.8-82.8); PLATELET COUNT 361 K/MM3 (134-434); RBC 4.06 M/mm3 (4.00-5.60); RDW 14.1 % (11.9-15.9); WHITE BLOOD COUNT 8.9 K/mm3 (4.0-10.0)
[2017-08-22 18:30] LABS: BASO % 0.7 % (0-2.0); EOS % 1.3 % (0-4.5); HEMATOCRIT 33.7 % (35.4-49); HEMOGLOBIN 10.8 GM/dL (11.7-16.9); LYMPH % 29.7 % (8-40); MCH 26.4 pg (25.7-33.7); MCHC 32.2 g/dl (32.0-35.9); MEAN CELL VOLUME 82.1 fl (80-96); MONO % 10.3 % (3.8-10.2); PLATELET COUNT 377 K/MM3 (134-434); WHITE BLOOD COUNT 8.2 K/mm3 (4.0-10.0)
[2017-08-22] MEDS: MONTELUKAST NA 10 MG TABLET PO SCH (21:18)
[2017-08-22] MEDS: GABAPENTIN 400 MG CAPSULE (FP) PO SCH (21:18)
[2017-08-22] MEDS: ROSUVASTATIN CA 10 MG TABLET (FP) PO SCH (21:18)
[2017-08-23] MEDS: HYDROmorphone HCL CARPU-JECT 4 MG/1 ML DISP.SYRIN IVPB PRN ×3 (03:37→22:50)
[2017-08-23] MEDS: SODIUM CHLORIDE 1,000 ML IV SCH ×2 (05:55→11:07)
[2017-08-23] MEDS: INSULIN SLIDING SCALE (NOVOLOG) 1 VIAL SQ SCH ×4 (06:09→21:18)
[2017-08-23] MEDS ORDERED: PT OWN MED DRAWER 7, Y5N ONE ×3 (08:10→21:21)
[2017-08-23] MEDS: HYDROmorphone HCL CARPU-JECT 2 MG/1 ML DISP.SYRIN IVPB PRN ×2 (08:16→11:54)
[2017-08-23] MEDS: TAMSULOSIN HCL 0.4 MG CAP.ER.24H (FP) PO SCH (08:17)
[2017-08-23] MEDS: LIPASE/PROTEASE/AMYLASE 36,000 UNIT CAPSULE PO SCH ×3 (08:17→16:57)
[2017-08-23 08:46] LABS: ALBUMIN 2.8 g/dl (3.4-5.0); ANION GAP 7 (8-16); BLOOD UREA NITROGEN 11 mg/dL (7-18); CHLORIDE 107 mmol/L (98-107); CO2 27 mmol/L (21-32); GLUCOSE,RANDOM 154 mg/dL (74-106); POTASSIUM 3.9 mmol/L (3.5-5.1); SODIUM 141 mmol/L (136-145)
[2017-08-23 08:50] LABS: ALK PHOS 85 U/L (45-117); BILIRUBIN,TOTAL 0.4 mg/dL (0.2-1.0); CREATININE 0.9 mg/dL (0.7-1.3); SGOT/AST 52 U/L (15-37); SGPT/ALT 59 U/L (12-78); TOT PROT 5.8 g/dl (6.4-8.2)
--- NOTE | 2017-08-23 09:39 | CONSULT ---
Consult - text type - Consultation Consultation Note: Neurology This is a 61 y/o man with a significant medical history of HTN, HLD, CAD s/p MA - 6 stents, DM, Chronic Pancreatitis, Chronic Cervical/Lumbar Pain who presented to the ED with abdominal pain x 4 weeks, CP, SOB and palpitations x today. Patient reports having N/D- constipation, productive cough with green phlegm. Placed on Augmentin and Cipro for a cough week prior to admission, with poor compliance secondary to abdominal pain. Patient previously seeing Dr. Singh and had extensive conversation regarding cervicalgia and cervical radiculopathy. On this admission, is having flank discomfort. Does not seem to be spinal, more anterior in location and with medial pelvis involvement. Renal ultrasound completed and reviewed which showed normal kidney, no hydronephrosis , 1.7 X 0.6 cm focus in L lower pole. Abdominal doppler reviewed and patent hepatic system noted. - Past Medical History [employer]: Yes: Peripheral Neuropathy (s/p extensive cervical spine surgery post injury with leg weakness and poor balance: patient much improved post extensive physical therapy and now walks with a walker), Other (chronic pain syndrome with mulit-level spine disease managed by PM and his spine surgeon. Planned EMG/ NCVs studies and evaluation of motor weakness in process by treating neurologist Dr. Singh) Cardiovascular: Yes: CAD, CHF (s/p MA several years ago; s/p stenting. mild CHF in the past.), HTN, Hyperlipdemia, MA, Pulmonary Hypertension Pulmonary: Yes: Asthma, Sleep Apnea Gastrointestinal: Yes: Constipation, Other (FECAL INCONTINENCE SECONDARY TO OVERFLOW followed by Dr. Abdoulaye Wu, IPMN, PANCREATITIS . HAD EPISODE OF ISCHEMIC COLITIS LAST ADMISSION) Renal/: Yes: BPH Psych: Yes: Depression Musculoskeletal: Yes: Chronic low back pain, Other (CHRONIC NECK PAIN s/p Lumbar and Cervical fusion ) Endocrine: Yes: Diabetes Mellitus (has insulin pump) - Past Surgical History Past Surgical History: Yes: Breast Biopsy, Colonoscopy, Laminectomy, Stent (1 non eluting, 5 eluting) Additional Past Surgical History: Tracheostomy Lumbar and Cervical Fusion - Smoking History Smoking history: Never smoked Have you smoked in the past 12 months: No Aproximately how many cigarettes per day: 0 - Alcohol/Substance Use Hx Alcohol Use: No History of Substance Use: reports: None, Prescription (opiates for chronic pain post cervical spine surgery. 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 History of Recent Travel: No Home Medications - Allergies Allergies/Adverse Reactions: Allergies Allergy/AdvReac Type Severity Reaction Status Date / Time shellfish derived Allergy Severe Verified 08/18/17 13:42 Tetracyclines Allergy Severe Verified 08/18/17 13:42 Active Medications Albuterol/Ipratropium (Duoneb -) 1 amp NEB Q6H PRN PRN Reason: SHORTNESS OF BREATH Last Admin: 08/22/17 14:46 Dose: 1 amp Amlodipine Besylate (Norvasc -) 5 mg PO DAILY [facility] Last Admin: 08/22/17 09:38 Dose: 5 mg Aspirin (Ecotrin -) 81 mg PO DAILY [facility] Last Admin: 08/22/17 09:38 Dose: 81 mg Budesonide/Formoterol Fumarate (Symbicort 160/4.5mcg -) 1 puff IH BID [facility] Last Admin: 08/22/17 21:21 Dose: 1 puff Ezetimibe (Zetia -) 10 mg PO DAILY [facility] Last Admin: 08/22/17 09:50 Dose: 10 mg Finasteride (Proscar -) 5 mg PO DAILY [facility] Last Admin: 08/22/17 09:38 Dose: 5 mg Gabapentin (Neurontin -) 600 mg PO DAILY [facility] Last Admin: 08/22/17 09:35 Dose: 600 mg Gabapentin (Neurontin -) 800 mg PO HS [facility] Last Admin: 08/22/17 21:18 Dose: 800 mg Hydromorphone HCl (Dilaudid Injection -) 4 mg IVPB Q4H PRN PRN Reason: PAIN LEVEL 7 - 10 Last Admin: 08/23/17 08:16 Dose: 4 mg Levofloxacin (Levaquin 500 Mg Premixed Ivpb -) 500 mg in 100 mls @ 100 mls/hr IVPB DAILY [facility] Last Admin: 08/22/17 09:39 Dose: 100 mls/hr Sodium Chloride (Normal Saline -) 1,000 mls @ 75 mls/hr IV ASDIR [facility] Last Admin: 08/23/17 05:55 Dose: 75 mls/hr Insulin Aspart (Novolog Vial Sliding Scale -) 1 vial SQ ACHS [facility] PRN Reason: Protocol Last Admin: 08/23/17 06:09 Dose: Not Given Montelukast Sodium (Singulair -) 10 mg PO HS [facility] Last Admin: 08/22/17 21:18 Dose: 10 mg Pancrelipase (Creon Dr 36,000 Units Capsule) 1 cap PO TIDCM [facility] Last Admin: 08/23/17 08:17 Dose: 1 cap Pantoprazole Sodium (Protonix -) 40 mg PO DAILY [facility] Last Admin: 08/22/17 09:38 Dose: 40 mg Ramipril (Altace -) 20 mg PO DAILY [facility] Last Admin: 08/22/17 09:39 Dose: 20 mg Rosuvastatin Calcium (Crestor -) 10 mg PO HS [facility] Last Admin: 08/22/17 21:18 Dose: 10 mg Tamsulosin HCl (Flomax -) 0.4 mg PO DAILY@0830 [facility] Last Admin: 08/23/17 08:17 Dose: 0.4 mg Tiotropium [place] (Spiriva -) 1 puff IH DAILY [facility] Last Admin: 08/22/17 09:46 Dose: 1 puff Family Disease History - Family Disease History Family Disease History: Diabetes: Mother, [place]: Father (mesothelioma), Respiratory : Brother (bronchial asthma) Review of Systems - Review of Systems Constitutional: reports: Chills Eyes: reports: No Symptoms HENT: reports: No Symptoms Neck: reports: Pain on Movement (chronic) Cardiovascular: reports: Chest Pain, Palpitations, Shortness of Breath Respiratory: reports: Cough, SOB Gastrointestinal: reports: Abdominal Pain, Constipation, Diarrhea, Nausea Genitourinary: reports: No Symptoms Breasts: reports: No Symptoms Reported Musculoskeletal: reports: Back Pain Integumentary: reports: No Symptoms Neurological: reports: No Symptoms Endocrine: reports: No Symptoms Hematology/Lymphatic: reports: No Symptoms Psychiatric: reports: No Symptoms Physical Examination Vital Signs Temperature 98.5 F 08/23/17 06:00 Pulse Rate 98 H 08/23/17 06:00 Respiratory Rate 18 08/23/17 06:00 Blood Pressure 158/90 08/23/17 06:00 O2 Sat by Pulse Oximetry (%) 95 08/22/17 20:40 Constitutional: Yes: Calm, Mild Distress, Obese Eyes: Yes: WNL, Conjunctiva Clear, EOM Intact, PERRL HENT: Yes: WNL, Atraumatic, Normocephalic Neck: Yes: Supple, Other (Trach w/closed button) Cardiovascular: Yes: Regular Rate and Rhythm, S1, S2 Respiratory: Yes: Diminished, On Nasal O2, Rhonchi, SOB, Wheezes Gastrointestinal: Yes: Soft, Abdomen, Obese, Hypoactive Bowel Sounds, Tenderness (generalized), Other (hernia) ...Rectal Exam: Yes: Deferred Renal/: Yes: WNL Breast(s): Yes: WNL Musculoskeletal: Yes: Back Pain Extremities: Yes: WNL Edema: No Peripheral Pulses WNL: Yes Integumentary: Yes: WNL Neurological: CN intact, no facial droop, no slurred speech, moves all extremities grossly, sensory intact, rolling walker at bedside for ambulation CBCD WBC 8.2 K/mm3 (4.0-10.0) 08/22/17 18:05 RBC 4.10 M/mm3 (4.00-5.60) 08/22/17 18:05 Hgb 10.8 GM/dL (11.7-16.9) L 08/22/17 18:05 Hct 33.7 % (35.4-49) L 08/22/17 18:05 MCV 82.1 fl (80-96) 08/22/17 18:05 MCHC 32.2 g/dl (32.0-35.9) 08/22/17 18:05 RDW 14.0 % (11.9-15.9) 08/22/17 18:05 Plt Count 377 K/MM3 (134-434) 08/22/17 18:05 MPV 7.0 fl (7.5-11.1) L 08/22/17 18:05 CMP Sodium 141 mmol/L (136-145) 08/23/17 07:51 Potassium 3.9 mmol/L (3.5-5.1) 08/23/17 07:51 Chloride 107 mmol/L (98-107) 08/23/17 07:51 Carbon Dioxide 27 mmol/L (21-32) 08/23/17 07:51 Anion Gap 7 (8-16) L 08/23/17 07:51 BUN 11 mg/dL (7-18) D 08/23/17 07:51 Creatinine 0.9 mg/dL (0.7-1.3) D 08/23/17 07:51 Creat Clearance w eGFR > 60 (>60) 08/23/17 07:51 Calcium 9.0 mg/dL (8.5-10.1) 08/23/17 07:51 Total Bilirubin 0.4 mg/dL (0.2-1.0) D 08/23/17 07:51 AST 52 U/L (15-37) H D 08/23/17 07:51 ALT 59 U/L (12-78) 08/23/17 07:51 Alkaline Phosphatase 85 U/L (45-117) 08/23/17 07:51 Total Protein 5.8 g/dl (6.4-8.2) L 08/23/17 07:51 Albumin 2.8 g/dl (3.4-5.0) L 08/23/17 07:51 Problem List 61 y/o man with a significant medical history of HTN, HLD, CAD s/p MA- 6 stents , DM, Chronic Pancreatitis, Chronic Cervical/Lumbar Pain who presented to the ED with abdominal pain x 4 weeks, CP, SOB and palpitations x today. Patient reports having N/D- constipation, productive cough with green phlegm. Placed on Augmentin and Cipro for a cough week prior to admission, with poor compliance secondary to abdominal pain. Patient previously seeing Dr. Singh and had extensive conversation regarding cervicalgia and cervical radiculopathy. On this admission, is having flank discomfort. Does not seem to be spinal, more anterior in location and with medial pelvis involvement. Renal ultrasound completed and reviewed which showed normal kidney, no hydronephrosis, 1.7 X 0.6 cm focus in L lower pole. Abdominal doppler reviewed and patent hepatic system noted. Does not seem to be spinal or lumbar. Does have chronic cervical pathology with surgical intervention, patient provided images of xray. Current symptoms seems more anterior in location and possible abominal/pelvic. Continue medical mgmt for PNA, getting morphine, monitor for sedation, caution with opioids in conjunction with gabapentin which is also increased dose. Continue rolling walker, physical therapy. Fall precautions.
[2017-08-23] MEDS: FINASTERIDE 5 MG TABLET (FP) PO SCH (09:52)
[2017-08-23] MEDS: ASPIRIN COATED 81 MG TABLET.EC PO SCH (09:52)
[2017-08-23] MEDS: RAMIPRIL 5 MG CAPSULE (FP) PO SCH (09:52)
[2017-08-23] MEDS: amLODIPine BESYLATE 2.5 MG TABLET (FP) PO SCH (09:52)
[2017-08-23] MEDS: PANTOPRAZOLE 40 MG TABLET (FP) PO SCH (09:52)
[2017-08-23] MEDS: GABAPENTIN 300 MG CAPSULE (FP) PO SCH (09:52)
[2017-08-23] MEDS: BUDESONIDE/FORMETEROL FUMARATE 160/4.5 mcg INHALER IH SCH ×2 (09:53→21:17)
[2017-08-23] MEDS: TIOTROPIUM BROMIDE 18 MCG/INH (DEVICE W/ 5 CAPSULES) IH SCH (09:53)
[2017-08-23] MEDS: EZETIMIBE 10 MG TABLET (FP) PO SCH (09:58)
--- NOTE | 2017-08-23 10:27 | PN ---
Progress Note, Physician Chief Complaint: Events noted Await surgery for umbilical hernia History of Present Illness: Patient was seen and examined. Awake and alert. Chart was reviewed Denies chest pain, SOB or palpitations Patient of Dr. Bola Elaine. Nuclear stress test and echocardiography as noted on Dr. Lewis's note - Current Medication List Current Medications: Active Medications Albuterol/Ipratropium (Duoneb -) 1 amp NEB Q6H PRN PRN Reason: SHORTNESS OF BREATH Last Admin: 08/22/17 14:46 Dose: 1 amp Amlodipine Besylate (Norvasc -) 5 mg PO DAILY [facility] Last Admin: 08/23/17 09:52 Dose: 5 mg Aspirin (Ecotrin -) 81 mg PO DAILY [facility] Last Admin: 08/23/17 09:52 Dose: 81 mg Budesonide/Formoterol Fumarate (Symbicort 160/4.5mcg -) 1 puff IH BID [facility] Last Admin: 08/23/17 09:53 Dose: 1 puff Ezetimibe (Zetia -) 10 mg PO DAILY [facility] Last Admin: 08/23/17 09:58 Dose: 10 mg Finasteride (Proscar -) 5 mg PO DAILY [facility] Last Admin: 08/23/17 09:52 Dose: 5 mg Gabapentin (Neurontin -) 600 mg PO DAILY [facility] Last Admin: 08/23/17 09:52 Dose: 600 mg Gabapentin (Neurontin -) 800 mg PO HS [facility] Last Admin: 08/22/17 21:18 Dose: 800 mg Hydromorphone HCl (Dilaudid Injection -) 4 mg IVPB Q4H PRN PRN Reason: PAIN LEVEL 7 - 10 Last Admin: 08/23/17 08:16 Dose: 4 mg Levofloxacin (Levaquin 500 Mg Premixed Ivpb -) 500 mg in 100 mls @ 100 mls/hr IVPB DAILY [facility] Last Admin: 08/23/17 09:52 Dose: 100 mls/hr Sodium Chloride (Normal Saline -) 1,000 mls @ 75 mls/hr IV ASDIR [facility] Last Admin: 08/23/17 05:55 Dose: 75 mls/hr Insulin Aspart (Novolog Vial Sliding Scale -) 1 vial SQ ACHS [facility] PRN Reason: Protocol Last Admin: 08/23/17 06:09 Dose: Not Given Montelukast Sodium (Singulair -) 10 mg PO HS [facility] Last Admin: 08/22/17 21:18 Dose: 10 mg Pancrelipase (Creon Dr 36,000 Units Capsule) 1 cap PO TIDCM [facility] Last Admin: 08/23/17 08:17 Dose: 1 cap Pantoprazole Sodium (Protonix -) 40 mg PO DAILY [facility] Last Admin: 08/23/17 09:52 Dose: 40 mg Ramipril (Altace -) 20 mg PO DAILY [facility] Last Admin: 08/23/17 09:52 Dose: 20 mg Rosuvastatin Calcium (Crestor -) 10 mg PO HS [facility] Last Admin: 08/22/17 21:18 Dose: 10 mg Tamsulosin HCl (Flomax -) 0.4 mg PO DAILY@0830 [facility] Last Admin: 08/23/17 08:17 Dose: 0.4 mg Tiotropium [place] (Spiriva -) 1 puff IH DAILY [facility] Last Admin: 08/23/17 09:53 Dose: 1 puff - Objective Vital Signs: Vital Signs Temperature 98.5 F 08/23/17 06:00 Pulse Rate 98 H 08/23/17 06:00 Respiratory Rate 18 08/23/17 06:00 Blood Pressure 158/90 08/23/17 06:00 O2 Sat by Pulse Oximetry (%) 95 08/22/17 20:40 Constitutional: Yes: Well Nourished Eyes: Yes: Conjunctiva Clear, PERRL HENT: Yes: Atraumatic Neck: Yes: Supple Cardiovascular: Yes: Regular Rate and Rhythm, S1, S2 Respiratory: Yes: CTA Bilaterally Gastrointestinal: Yes: Normal Bowel Sounds, Soft, Abdomen, Obese. No: Tenderness Edema: No Labs: CBC, BMP 08/22/17 18:05 08/23/17 07:51 INR, PTT INR 1.22 (0.82-1.09) H 08/21/17 06:55 Problem List - Problems (1) Chronic pancreatitis Code(s): K86.1 - OTHER CHRONIC PANCREATITIS Qualifiers: Pancreatitis type: unspecified pancreatitis type Qualified Code(s): K86.1 - Other chronic pancreatitis (2) 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 Code(s): E10.8 - TYPE 1 DIABETES MELLITUS WITH UNSPECIFIED COMPLICATIONS (3) Hematuria Code(s): R31.9 - HEMATURIA, UNSPECIFIED (4) Renal calculus, left Code(s): N20.0 - CALCULUS OF KIDNEY (5) ASHD (arteriosclerotic heart disease) Code(s): I25.10 - ATHSCL HEART DISEASE OF [place] CORONARY ARTERY W/O ANG PCTRS (6) Abdominal pain Code(s): R10.9 - UNSPECIFIED ABDOMINAL PAIN Qualifiers: Abdominal location: upper abdomen, unspecified Qualified Code(s): R10.10 - Upper abdominal pain, unspecified (7) Acute on chronic diastolic (congestive) heart failure Code(s): I50.33 - ACUTE ON CHRONIC DIASTOLIC (CONGESTIVE) HEART FAILURE (8) Anemia Code(s): D64.9 - ANEMIA, UNSPECIFIED (9) Asthma Code(s): J45.909 - UNSPECIFIED ASTHMA, UNCOMPLICATED Qualifiers: Asthma severity: unspecified severity (10) Diabetes mellitus Code(s): E11.9 - TYPE 2 DIABETES MELLITUS WITHOUT COMPLICATIONS Qualifiers: Diabetes mellitus type: type 2 Diabetes mellitus complication detail: with unspecified neuropathy (11) Hypertension Code(s): I10 - ESSENTIAL (PRIMARY) HYPERTENSION Qualifiers: Hypertension type: essential hypertension Qualified Code(s): I10 - Essential (primary) hypertension (12) IPMN (intraductal papillary mucinous neoplasm) Code(s): D49.0 - NEOPLASM OF UNSPECIFIED BEHAVIOR OF DIGESTIVE SYSTEM (13) GRACIE (obstructive sleep apnea) Code(s): G47.33 - OBSTRUCTIVE SLEEP APNEA (ADULT) (PEDIATRIC) Assessment/Plan 1. Pre-operative cardiovascular evaluation prior to umbilical hernia repair 2. Chronic pancreatitis and esophagitis 3. Chronic atypical chest pain 4. CAD s/p [place], post PCI (stents), angina pectoris 6. HTN/HCVD 5. Hyperlipidemia 6. Diastolic dysfunction and pulmonary HTN 7. OSAS 8. COPD/Asthma 9. Acute on CKD resolving 10. Hematuria with left non-obstructive calculus PLAN: 1. Continue ASA unless surgical service wants this to be stopped prior to umbilical hernia repair surgery. Continue Zetia 10 qd, Altace 20 qd (may need to hold if renal function continues to deteriorate), Crestor 10 qd and Norvasc 5 qd 3. Bronchodilator, O2 as needed and empiric antibiotic coverage 4. Given absence of symptoms of acute ischemic symptoms, decompensated CHF or malignant arrhythmia and most recent stress testing 07/16/2016 showing inferior infarct with [id number] ischemia, may proceed with surgery from cardiovascular standpoint without further testing. Plavix has been stopped and continue ASA 81 mg daily rosamaria-operatively and to renew Plavix once post-op hemostasis has been achieved. 5. input to follow Further plans are to follow. Patient was seen, examined and counseled for 40 minutes Samuel Calvillo MD
[2017-08-23] MEDS: ALBUTEROL SO4 2.5/IPRATROPIUM 0.5 INH SOL 3 ML VIAL.NEB. NEB PRN ×3 (10:50→21:40)
[2017-08-23 13:03] LABS: BASO % 0.5 % (0-2.0); EOS % 1.2 % (0-4.5); HEMATOCRIT 35.2 % (35.4-49); HEMOGLOBIN 11.5 GM/dL (11.7-16.9); LYMPH % 33.7 % (8-40); MCH 26.3 pg (25.7-33.7); MCHC 32.5 g/dl (32.0-35.9); MEAN CELL VOLUME 80.8 fl (80-96); MEAN PLT VOLUME 6.9 fl (7.5-11.1); NEUT % 53.6 % (42.8-82.8); PLATELET COUNT 395 K/MM3 (134-434); RBC 4.36 M/mm3 (4.00-5.60); RDW 14.2 % (11.9-15.9); WHITE BLOOD COUNT 8.7 K/mm3 (4.0-10.0)
[2017-08-23 13:26] LABS: ALBUMIN 3.2 g/dl (3.4-5.0); ALK PHOS 98 U/L (45-117); ANION GAP 7 (8-16); BILIRUBIN,TOTAL 0.7 mg/dL (0.2-1.0); BLOOD UREA NITROGEN 9 mg/dL (7-18); CALCIUM 9.1 mg/dL (8.5-10.1); CHLORIDE 107 mmol/L (98-107); CO2 26 mmol/L (21-32); GLUCOSE,RANDOM 188 mg/dL (74-106); POTASSIUM 3.7 mmol/L (3.5-5.1); SGOT/AST 55 U/L (15-37); SGPT/ALT 64 U/L (12-78); SODIUM 140 mmol/L (136-145); TOT PROT 6.5 g/dl (6.4-8.2)
--- NOTE | 2017-08-23 13:33 | PN ---
Progress Note (short form) - Note Progress Note: urine clear ucx neg sono with left nonobstructing stone will perform CT A/P Problem List - Problems (1) Hematuria Code(s): R31.9 - HEMATURIA, UNSPECIFIED
--- NOTE | 2017-08-23 21:02 | PN ---
Progress Note (short form) - Note Progress Note: Tolerating clears Discussed risks and benefits again of umbilical hernia repair Understands and agrees Vital Signs Period Temp Pulse Resp BP Sys/Gates Pulse Ox Last 24 Hr 97.7 F-98.8 F 82-98 18-20 93-160/74-90 95 Abd soft, + umbilical hernia- still with pain/discomfort CBC, BMP 08/23/17 12:40 08/23/17 12:40 For hernia repair in am Problem List - Problems (1) Umbilical hernia Code(s): K42.9 - UMBILICAL HERNIA WITHOUT OBSTRUCTION OR GANGRENE Qualifiers: Obstruction and gangrene presence: without obstruction or gangrene Qualified Code(s): K42.9 - Umbilical hernia without obstruction or gangrene
[2017-08-23] MEDS ORDERED: INSULIN (NOVOLOG) ASPART 100 UNITS/ML 10ML VIAL ONE (21:13)
[2017-08-23] MEDS: GABAPENTIN 400 MG CAPSULE (FP) PO SCH (21:17)
[2017-08-23] MEDS: MONTELUKAST NA 10 MG TABLET PO SCH (21:18)
[2017-08-23] MEDS: SENNOSIDES 8.6MG TABLET (FP) PO SCH (21:18)
[2017-08-23] MEDS: ROSUVASTATIN CA 10 MG TABLET (FP) PO SCH (21:18)
--- NOTE | 2017-08-23 21:23 | PN ---
Progress Note, Physician Chief Complaint: Pneumonia, Hematuria, Umbilical hernia History of Present Illness: NAD, sitting in bed, complaining of right Lumbar pain. Started on Dilaudid HCS: 06/15/2017 06/16/2017 nucynta er 150 mg tablet 60 30 Xavier Prince MD 06/15/2017 06/16/2017 hydromorphone 4 mg tablet 120 30 Xavier Prince MD 06/15/2017 06/16/2017 oxycodone-acetaminophen 10-325 mg tab 180 23Xavier Prince MD 04/06/2017 04/24/2017 testosterone 30 mg/1.5 ml pump 90ml 30 Murali Gustafson MD 04/06/2017 04/06/2017 diazepam 5 mg tablet 14 14 Murali Gustafson MD 02/22/2017 02/22/2017 zolpidem tart er 6.25 mg tab 10 10 Markus Knox MD 02/22/2017 02/22/2017 diazepam 10 mg tablet 20 10 Markus Knox MD 12/31/2016 01/16/2017 hydromorphone 4 mg tablet 120 30 Xavier Prince MD 12/31/2016 01/07/2017 nucynta er 150 mg tablet 60 30 Xavier Prince MD 12/31/2016 01/07/2017 oxycodone-acetaminophen 7.5-325 mg tablet 180 22 Xavier Prince MD 10/13/2016 10/14/2016 nucynta er 150 mg tablet 60 30 Xavier Prince MD 10/13/2016 10/14/2016 hydromorphone 4 mg tablet 120 30 Xavier Prince MD 10/13/2016 10/14/2016 oxycodone-acetaminophen 7.5-325 mg tablet 138 23 Xavier Prince MD 06/26/2016 09/08/2016 tramadol hcl er 100 mg tablet 30 30 Kadie Singh MD 08/17/2016 09/08/2016 codeine-guaifen 10-100 mg/5 ml 150ml 5 Markus Knox MD - Current Medication List Current Medications: Active Medications Albuterol/Ipratropium (Duoneb -) 1 amp NEB Q6H PRN PRN Reason: SHORTNESS OF BREATH Last Admin: 08/23/17 15:37 Dose: 1 amp Amlodipine Besylate (Norvasc -) 5 mg PO DAILY [facility] Last Admin: 08/23/17 09:52 Dose: 5 mg Aspirin (Ecotrin -) 81 mg PO DAILY [facility] Last Admin: 08/23/17 09:52 Dose: 81 mg Budesonide/Formoterol Fumarate (Symbicort 160/4.5mcg -) 1 puff IH BID [facility] Last Admin: 08/23/17 21:17 Dose: 1 puff Ezetimibe (Zetia -) 10 mg PO DAILY [facility] Last Admin: 08/23/17 09:58 Dose: 10 mg Finasteride (Proscar -) 5 mg PO DAILY [facility] Last Admin: 08/23/17 09:52 Dose: 5 mg Gabapentin (Neurontin -) 600 mg PO DAILY [facility] Last Admin: 08/23/17 09:52 Dose: 600 mg Gabapentin (Neurontin -) 800 mg PO HS [facility] Last Admin: 08/23/17 21:17 Dose: 800 mg Hydromorphone HCl (Dilaudid Injection -) 4 mg IVPB Q4H PRN PRN Reason: PAIN LEVEL 7 - 10 Last Admin: 08/23/17 16:57 Dose: 4 mg Levofloxacin (Levaquin 500 Mg Premixed Ivpb -) 500 mg in 100 mls @ 100 mls/hr IVPB DAILY [facility] Last Admin: 08/23/17 09:52 Dose: 100 mls/hr Sodium Chloride (Normal Saline -) 1,000 mls @ 75 mls/hr IV ASDIR [facility] Last Admin: 08/23/17 11:07 Dose: Not Given Insulin Aspart (Novolog Vial Sliding Scale -) 1 vial SQ ACHS [facility] PRN Reason: Protocol Last Admin: 08/23/17 21:18 Dose: Not Given Montelukast Sodium (Singulair -) 10 mg PO HS [facility] Last Admin: 08/23/17 21:18 Dose: 10 mg Pancrelipase (Creon Dr 36,000 Units Capsule) 1 cap PO TIDCM [facility] Last Admin: 08/23/17 16:57 Dose: 1 cap Pantoprazole Sodium (Protonix -) 40 mg PO DAILY [facility] Last Admin: 08/23/17 09:52 Dose: 40 mg Ramipril (Altace -) 20 mg PO DAILY [facility] Last Admin: 08/23/17 09:52 Dose: 20 mg Rosuvastatin Calcium (Crestor -) 10 mg PO [facility] Last Admin: 08/23/17 21:18 Dose: 10 mg Senna (Senna -) 1 tab PO HS [facility] Last Admin: 08/23/17 21:18 Dose: 1 tab Tamsulosin HCl (Flomax -) 0.4 mg PO DAILY@0830 [facility] Last Admin: 08/23/17 08:17 Dose: 0.4 mg Tiotropium [place] (Spiriva -) 1 puff IH DAILY [facility] Last Admin: 08/23/17 09:53 Dose: 1 puff - Objective Vital Signs: Vital Signs Temperature 97.7 F 08/23/17 15:32 Pulse Rate 82 08/23/17 15:32 Respiratory Rate 20 08/23/17 15:32 Blood Pressure 93/74 08/23/17 15:32 O2 Sat by Pulse Oximetry (%) 95 08/23/17 08:00 Constitutional: Yes: Well Nourished, No Distress, Calm Cardiovascular: Yes: Regular Rate and Rhythm Respiratory: Yes: Regular Gastrointestinal: Yes: Normal Bowel Sounds Musculoskeletal: Yes: WNL, Back Pain Extremities: Yes: WNL Edema: No Peripheral Pulses WNL: Yes Neurological: Yes: Alert, Oriented Psychiatric: Yes: Alert, Oriented Labs: CBC, BMP 08/23/17 12:40 08/23/17 12:40 INR, PTT INR 1.22 (0.82-1.09) H 08/21/17 06:55 Problem List - Problems (1) Hematuria Assessment/Plan: -seen by Urology -UA +3 blood -UC negative -has BPH, on tamsulosin and finestride -CT abdomen/pelvis Code(s): R31.9 - HEMATURIA, UNSPECIFIED (2) Pneumonia Assessment/Plan: -seen by ID -IV abx -seen by pulmonary -bronchodilators -afebrile Code(s): J18.9 - PNEUMONIA, UNSPECIFIED ORGANISM Qualifiers: Pneumonia type: due to unspecified organism Laterality: right Lung location: unspecified part of lung Qualified Code(s): J18.9 - Pneumonia, unspecified organism (3) Umbilical hernia Assessment/Plan: -seen by GI surgery -Plavix being held -Can continue ASA -Plan for umbilical hernia repair with possible mesh in AM Code(s): K42.9 - UMBILICAL HERNIA WITHOUT OBSTRUCTION OR GANGRENE Qualifiers: Obstruction and gangrene presence: without obstruction or gangrene Qualified Code(s): K42.9 - Umbilical hernia without obstruction or gangrene (4) ASHD (arteriosclerotic heart disease) Assessment/Plan: -seen by Cardiology -Plavix being held -on Zetia -asa 81 mg Code(s): I25.10 - ATHSCL HEART DISEASE OF [place] CORONARY ARTERY W/O ANG PCTRS Assessment/Plan see problem list
--- NOTE | 2017-08-23 21:45 | PN ---
Progress Note, Physician History of Present Illness: No dyspnea or wheezing. - Current Medication List Current Medications: Active Medications Albuterol/Ipratropium (Duoneb -) 1 amp NEB Q6H PRN PRN Reason: SHORTNESS OF BREATH Last Admin: 08/23/17 15:37 Dose: 1 amp Amlodipine Besylate (Norvasc -) 5 mg PO DAILY [facility] Last Admin: 08/23/17 09:52 Dose: 5 mg Aspirin (Ecotrin -) 81 mg PO DAILY [facility] Last Admin: 08/23/17 09:52 Dose: 81 mg Budesonide/Formoterol Fumarate (Symbicort 160/4.5mcg -) 1 puff IH BID [facility] Last Admin: 08/23/17 21:17 Dose: 1 puff Ezetimibe (Zetia -) 10 mg PO DAILY [facility] Last Admin: 08/23/17 09:58 Dose: 10 mg Finasteride (Proscar -) 5 mg PO DAILY [facility] Last Admin: 08/23/17 09:52 Dose: 5 mg Gabapentin (Neurontin -) 600 mg PO DAILY [facility] Last Admin: 08/23/17 09:52 Dose: 600 mg Gabapentin (Neurontin -) 800 mg PO HS [facility] Last Admin: 08/23/17 21:17 Dose: 800 mg Hydromorphone HCl (Dilaudid Injection -) 4 mg IVPB Q4H PRN PRN Reason: PAIN LEVEL 7 - 10 Last Admin: 08/23/17 16:57 Dose: 4 mg Levofloxacin (Levaquin 500 Mg Premixed Ivpb -) 500 mg in 100 mls @ 100 mls/hr IVPB DAILY [facility] Last Admin: 08/23/17 09:52 Dose: 100 mls/hr Sodium Chloride (Normal Saline -) 1,000 mls @ 75 mls/hr IV ASDIR [facility] Last Admin: 08/23/17 11:07 Dose: Not Given Insulin Aspart (Novolog Vial Sliding Scale -) 1 vial SQ ACHS [facility] PRN Reason: Protocol Last Admin: 08/23/17 21:18 Dose: Not Given Montelukast Sodium (Singulair -) 10 mg PO HS [facility] Last Admin: 08/23/17 21:18 Dose: 10 mg Pancrelipase (Creon Dr 36,000 Units Capsule) 1 cap PO TIDCM [facility] Last Admin: 08/23/17 16:57 Dose: 1 cap Pantoprazole Sodium (Protonix -) 40 mg PO DAILY [facility] Last Admin: 08/23/17 09:52 Dose: 40 mg Ramipril (Altace -) 20 mg PO DAILY [facility] Last Admin: 08/23/17 09:52 Dose: 20 mg Rosuvastatin Calcium (Crestor -) 10 mg PO HS [facility] Last Admin: 08/23/17 21:18 Dose: 10 mg Senna (Senna -) 1 tab PO HS [facility] Last Admin: 08/23/17 21:18 Dose: 1 tab Tamsulosin HCl (Flomax -) 0.4 mg PO DAILY@0830 [facility] Last Admin: 08/23/17 08:17 Dose: 0.4 mg Tiotropium [place] (Spiriva -) 1 puff IH DAILY [facility] Last Admin: 08/23/17 09:53 Dose: 1 puff - Objective Vital Signs: Vital Signs Temperature 97.7 F 08/23/17 15:32 Pulse Rate 82 08/23/17 15:32 Respiratory Rate 20 08/23/17 15:32 Blood Pressure 93/74 08/23/17 15:32 O2 Sat by Pulse Oximetry (%) 95 08/23/17 08:00 Constitutional: Yes: No Distress Eyes: No: Sclera Icterus HENT: Yes: Atraumatic, Normocephalic Neck: Yes: Supple, Other (tracheostomy clean and dry) Respiratory: Yes: CTA Bilaterally Gastrointestinal: Yes: Soft, Hernia (umbilical hernia) Extremities: No: Calf Tenderness Edema: No Neurological: Yes: Alert, Oriented Labs: CBC, BMP 08/23/17 12:40 08/23/17 12:40 INR, PTT INR 1.22 (0.82-1.09) H 08/21/17 06:55 Assessment/Plan Abdominal pain. Multiple chronic medical problems (see past medical history) including COPD and GRACIE which are stable. RML nodule has been stable since at least 10/26/2007 There are nodular densities in the RLL which appear inflammatory. No clinical evidence of acute pulmonary infection. Pt is scheduled for umbilical hernia repair Suggest: Continue current treatment Monitor closely in the perioperative period for exacerbation of COPD.
[2017-08-24] MEDS: HYDROmorphone HCL CARPU-JECT 4 MG/1 ML DISP.SYRIN IVPB PRN ×5 (03:20→21:42)
[2017-08-24] MEDS: INSULIN SLIDING SCALE (NOVOLOG) 1 VIAL SQ SCH ×4 (06:02→21:42)
[2017-08-24 07:34] LABS: BASO % 0.7 % (0-2.0); EOS % 1.9 % (0-4.5); HEMATOCRIT 34.8 % (35.4-49); HEMOGLOBIN 11.3 GM/dL (11.7-16.9); LYMPH % 35.9 % (8-40); MCHC 32.5 g/dl (32.0-35.9); MEAN PLT VOLUME 6.8 fl (7.5-11.1); MONO % 10.7 % (3.8-10.2); NEUT % 50.8 % (42.8-82.8); PLATELET COUNT 382 K/MM3 (134-434); RBC 4.34 M/mm3 (4.00-5.60); RDW 14.2 % (11.9-15.9); WHITE BLOOD COUNT 9.2 K/mm3 (4.0-10.0)
[2017-08-24] MEDS: LIPASE/PROTEASE/AMYLASE 36,000 UNIT CAPSULE PO SCH ×3 (07:44→17:20)
[2017-08-24 07:56] LABS: CHLORIDE 110 mmol/L (98-107); POTASSIUM 3.8 mmol/L (3.5-5.1); SODIUM 138 mmol/L (136-145)
[2017-08-24 08:08] LABS: ALBUMIN 3.3 g/dl (3.4-5.0); ALK PHOS 95 U/L (45-117); ANION GAP 4 (8-16); BILIRUBIN,TOTAL 0.9 mg/dL (0.2-1.0); BLOOD UREA NITROGEN 6 mg/dL (7-18); CALCIUM 8.6 mg/dL (8.5-10.1); CO2 24 mmol/L (21-32); GLUCOSE,RANDOM 116 mg/dL (74-106); SGOT/AST 58 U/L (15-37); SGPT/ALT 64 U/L (12-78); TOT PROT 6.3 g/dl (6.4-8.2)
[2017-08-24] MEDS ORDERED: PT OWN MED DRAWER 7, Y5N ONE ×4 (09:37→21:44)
[2017-08-24] MEDS: BUDESONIDE/FORMETEROL FUMARATE 160/4.5 mcg INHALER IH SCH ×2 (09:47→21:47)
[2017-08-24] MEDS: TIOTROPIUM BROMIDE 18 MCG/INH (DEVICE W/ 5 CAPSULES) IH SCH (09:47)
--- NOTE | 2017-08-24 10:15 | PN ---
Progress Note (short form) - Note Progress Note: Neurology This is a 61 y/o man with a significant medical history of HTN, HLD, CAD s/p [place] - 6 stents, DM, Chronic Pancreatitis, Chronic Cervical/Lumbar Pain who presented to the ED with abdominal pain x 4 weeks, CP, SOB and palpitations. Patient reports having N/D- constipation, productive cough with green phlegm. Placed on Augmentin and Cipro for a cough week prior to admission, with poor compliance secondary to abdominal pain. Patient previously seeing Dr. Singh and had extensive conversation regarding cervicalgia and cervical radiculopathy. On this admission, is having flank discomfort. Does not seem to be spinal, more anterior in location and with medial pelvis involvement. Renal ultrasound completed and reviewed which showed normal kidney, no hydronephrosis , 1.7 X 0.6 cm focus in L lower pole. Abdominal doppler reviewed and patent hepatic system noted. Patient was awaiting CT abdomen and being considered for surgical mgmt of hernia. Active Medications Albuterol/Ipratropium (Duoneb -) 1 amp NEB Q6H PRN PRN Reason: SHORTNESS OF BREATH Last Admin: 08/23/17 21:40 Dose: 1 amp Amlodipine Besylate (Norvasc -) 5 mg PO DAILY [facility] Last Admin: 08/23/17 09:52 Dose: 5 mg Aspirin (Ecotrin -) 81 mg PO DAILY [facility] Last Admin: 08/23/17 09:52 Dose: 81 mg Budesonide/Formoterol Fumarate (Symbicort 160/4.5mcg -) 1 puff IH BID [facility] Last Admin: 08/24/17 09:47 Dose: 1 puff Ezetimibe (Zetia -) 10 mg PO DAILY [facility] Last Admin: 08/23/17 09:58 Dose: 10 mg Finasteride (Proscar -) 5 mg PO DAILY [facility] Last Admin: 08/23/17 09:52 Dose: 5 mg Gabapentin (Neurontin -) 600 mg PO DAILY [facility] Last Admin: 08/23/17 09:52 Dose: 600 mg Gabapentin (Neurontin -) 800 mg PO HS [facility] Last Admin: 08/23/17 21:17 Dose: 800 mg Hydromorphone HCl (Dilaudid Injection -) 4 mg IVPB Q4H PRN PRN Reason: PAIN LEVEL 7 - 10 Last Admin: 08/24/17 07:48 Dose: 4 mg Levofloxacin (Levaquin 500 Mg Premixed Ivpb -) 500 mg in 100 mls @ 100 mls/hr IVPB DAILY [facility] Last Admin: 08/24/17 09:43 Dose: 100 mls/hr Sodium Chloride (Normal Saline -) 1,000 mls @ 75 mls/hr IV ASDIR [facility] Last Admin: 08/23/17 11:07 Dose: Not Given Insulin Aspart (Novolog Vial Sliding Scale -) 1 vial SQ ACHS [facility] PRN Reason: Protocol Last Admin: 08/24/17 06:02 Dose: Not Given Montelukast Sodium (Singulair -) 10 mg PO HS [facility] Last Admin: 08/23/17 21:18 Dose: 10 mg Pancrelipase (Creon Dr 36,000 Units Capsule) 1 cap PO TIDCM [facility] Last Admin: 08/24/17 07:44 Dose: Not Given Pantoprazole Sodium (Protonix -) 40 mg PO DAILY [facility] Last Admin: 08/23/17 09:52 Dose: 40 mg Ramipril (Altace -) 20 mg PO DAILY [facility] Last Admin: 08/23/17 09:52 Dose: 20 mg Rosuvastatin [place]cium (Crestor -) 10 mg PO HS [facility] Last Admin: 08/23/17 21:18 Dose: 10 mg Senna (Senna -) 1 tab PO [facility] Last Admin: 08/23/17 21:18 Dose: 1 tab Tamsulosin HCl (Flomax -) 0.4 mg PO DAILY@0830 [facility] Last Admin: 08/23/17 08:17 Dose: 0.4 mg Tiotropium [place] (Spiriva -) 1 puff IH DAILY [facility] Last Admin: 08/24/17 09:47 Dose: 1 puff Physical Examination Last Vital Signs Temp Pulse Resp BP Pulse Ox 98.0 F 79 18 130/73 96 08/24/17 08:31 08/24/17 08:31 08/24/17 08:31 08/24/17 08:31 08/23/17 21:00 Constitutional: Yes: Calm, Mild Distress, Obese Eyes: Yes: WNL, Conjunctiva Clear, EOM Intact, PERRL HENT: Yes: WNL, Atraumatic, Normocephalic Neck: Yes: Supple, Other (Trach w/closed button) Cardiovascular: Yes: Regular Rate and Rhythm, S1, S2 Respiratory: Yes: Diminished, On Nasal O2, Rhonchi, SOB, Wheezes Gastrointestinal: Yes: Soft, Abdomen, Obese, Hypoactive Bowel Sounds, Tenderness (generalized), Other (hernia) ...Rectal Exam: Yes: Deferred Renal/: Yes: WNL Breast(s): Yes: WNL Musculoskeletal: Yes: Back Pain Extremities: Yes: WNL Edema: No Peripheral Pulses WNL: Yes Integumentary: Yes: WNL Neurological: CN intact, no facial droop, no slurred speech, moves all extremities grossly, sensory intact, rolling walker at bedside for ambulation CBCD WBC 9.2 K/mm3 (4.0-10.0) 08/24/17 06:40 RBC 4.34 M/mm3 (4.00-5.60) 08/24/17 06:40 Hgb 11.3 GM/dL (11.7-16.9) L 08/24/17 06:40 Hct 34.8 % (35.4-49) L 08/24/17 06:40 MCV 80.0 fl (80-96) 08/24/17 06:40 MCHC 32.5 g/dl (32.0-35.9) 08/24/17 06:40 RDW 14.2 % (11.9-15.9) 08/24/17 06:40 Plt Count 382 K/MM3 (134-434) 08/24/17 06:40 MPV 6.8 fl (7.5-11.1) L 08/24/17 06:40 CMP Sodium 138 mmol/L (136-145) 08/24/17 06:40 Potassium 3.8 mmol/L (3.5-5.1) 08/24/17 06:40 Chloride 110 mmol/L (98-107) H 08/24/17 06:40 Carbon Dioxide 24 mmol/L (21-32) 08/24/17 06:40 Anion Gap 4 (8-16) L 08/24/17 06:40 BUN 6 mg/dL (7-18) L D 08/24/17 06:40 Creatinine 1.0 mg/dL (0.7-1.3) 08/24/17 06:40 Creat Clearance w eGFR > 60 (>60) 08/24/17 06:40 Calcium 8.6 mg/dL (8.5-10.1) 08/24/17 06:40 Total Bilirubin 0.9 mg/dL (0.2-1.0) D 08/24/17 06:40 AST 58 U/L (15-37) H 08/24/17 06:40 ALT 64 U/L (12-78) 08/24/17 06:40 Alkaline Phosphatase 95 U/L (45-117) 08/24/17 06:40 Total Protein 6.3 g/dl (6.4-8.2) L 08/24/17 06:40 Albumin 3.3 g/dl (3.4-5.0) L 08/24/17 06:40 Problem List 61 y/o man with a significant medical history of HTN, HLD, CAD s/p [place]- 6 stents , DM, Chronic Pancreatitis, Chronic Cervical/Lumbar Pain who presented to the ED with abdominal pain x 4 weeks, CP, SOB and palpitations x today. Patient reports having N/D- constipation, productive cough with green phlegm. Placed on Augmentin and Cipro for a cough week prior to admission, with poor compliance secondary to abdominal pain. Patient previously seeing Dr. Singh and had extensive conversation regarding cervicalgia and cervical radiculopathy. On this admission, is having flank discomfort. Does not seem to be spinal, more anterior in location and with medial pelvis involvement. Renal ultrasound completed and reviewed which showed normal kidney, no hydronephrosis, 1.7 X 0.6 cm focus in L lower pole. Abdominal doppler reviewed and patent hepatic system noted. Does not seem to be spinal or lumbar. Does have chronic cervical pathology with surgical intervention, patient provided images of xray. Current symptoms seems more anterior in location and possible abominal/pelvic. Being considered for surgical intervention of umbilical hernia. Continue medical mgmt for PNA, getting morphine, monitor for sedation, caution with opioids in conjunction with gabapentin which is also increased dose. Continue rolling walker, physical therapy. Fall precautions.
[2017-08-24] MEDS: amLODIPine BESYLATE 2.5 MG TABLET (FP) PO SCH (10:24)
[2017-08-24] MEDS: TAMSULOSIN HCL 0.4 MG CAP.ER.24H (FP) PO SCH (10:24)
[2017-08-24] MEDS: RAMIPRIL 5 MG CAPSULE (FP) PO SCH (10:24)
[2017-08-24] MEDS: ASPIRIN COATED 81 MG TABLET.EC PO SCH (10:24)
[2017-08-24] MEDS: EZETIMIBE 10 MG TABLET (FP) PO SCH (10:25)
[2017-08-24] MEDS: FINASTERIDE 5 MG TABLET (FP) PO SCH (10:25)
[2017-08-24] MEDS: PANTOPRAZOLE 40 MG TABLET (FP) PO SCH (10:25)
[2017-08-24] MEDS: GABAPENTIN 300 MG CAPSULE (FP) PO SCH (10:25)
--- NOTE | 2017-08-24 11:19 | PN ---
Progress Note, Physician Chief Complaint: Pneumonia, Hematuria, Umbilical hernia History of Present Illness: NAD, sitting in bed, complaining of right Lumbar pain. Started on Dilaudid HCS: 06/15/2017 06/16/2017 nucynta er 150 mg tablet 60 30 Xavier Prince MD 06/15/2017 06/16/2017 hydromorphone 4 mg tablet 120 30 Xavier Prince MD 06/15/2017 06/16/2017 oxycodone-acetaminophen 10-325 mg tab 180 23Xavier Prince MD 04/06/2017 04/24/2017 testosterone 30 mg/1.5 ml pump 90ml 30 Murali Gustafson MD 04/06/2017 04/06/2017 diazepam 5 mg tablet 14 14 Murali Gustafson MD 02/22/2017 02/22/2017 zolpidem tart er 6.25 mg tab 10 10 Markus Knox MD 02/22/2017 02/22/2017 diazepam 10 mg tablet 20 10 Markus Knox MD 12/31/2016 01/16/2017 hydromorphone 4 mg tablet 120 30 Xavier Prince MD 12/31/2016 01/07/2017 nucynta er 150 mg tablet 60 30 Xavier Prince MD 12/31/2016 01/07/2017 oxycodone-acetaminophen 7.5-325 mg tablet 180 22 Xavier Prince MD 10/13/2016 10/14/2016 nucynta er 150 mg tablet 60 30 Xavier Prince MD 10/13/2016 10/14/2016 hydromorphone 4 mg tablet 120 30 Xavier Prince MD 10/13/2016 10/14/2016 oxycodone-acetaminophen 7.5-325 mg tablet 138 23 Xavier Prince MD 06/26/2016 09/08/2016 tramadol hcl er 100 mg tablet 30 30 Kadie Singh MD 08/17/2016 09/08/2016 codeine-guaifen 10-100 mg/5 ml 150ml 5 Markus Knox MD Going for hernia repair today Senna for constipation - Current Medication List Current Medications: Active Medications Albuterol/Ipratropium (Duoneb -) 1 amp NEB Q6H PRN PRN Reason: SHORTNESS OF BREATH Last Admin: 08/23/17 21:40 Dose: 1 amp Amlodipine Besylate (Norvasc -) 5 mg PO DAILY [facility] Last Admin: 08/24/17 10:24 Dose: 5 mg Aspirin (Ecotrin -) 81 mg PO DAILY [facility] Last Admin: 08/24/17 10:24 Dose: Not Given Budesonide/Formoterol Fumarate (Symbicort 160/4.5mcg -) 1 puff IH BID [facility] Last Admin: 08/24/17 09:47 Dose: 1 puff Ezetimibe (Zetia -) 10 mg PO DAILY [facility] Last Admin: 08/24/17 10:25 Dose: Not Given Finasteride (Proscar -) 5 mg PO DAILY [facility] Last Admin: 08/24/17 10:25 Dose: Not Given Gabapentin (Neurontin -) 600 mg PO DAILY [facility] Last Admin: 08/24/17 10:25 Dose: Not Given Gabapentin (Neurontin -) 800 mg PO HS [facility] Last Admin: 08/23/17 21:17 Dose: 800 mg Hydromorphone HCl (Dilaudid Injection -) 4 mg IVPB Q4H PRN PRN Reason: PAIN LEVEL 7 - 10 Last Admin: 08/24/17 07:48 Dose: 4 mg Levofloxacin (Levaquin 500 Mg Premixed Ivpb -) 500 mg in 100 mls @ 100 mls/hr IVPB DAILY [facility] Last Admin: 08/24/17 09:43 Dose: 100 mls/hr Sodium Chloride (Normal Saline -) 1,000 mls @ 75 mls/hr IV ASDIR [facility] Last Admin: 08/23/17 11:07 Dose: Not Given Insulin Aspart (Novolog Vial Sliding Scale -) 1 vial SQ ACHS [facility] PRN Reason: Protocol Last Admin: 08/24/17 06:02 Dose: Not Given Montelukast Sodium (Singulair -) 10 mg PO HS [facility] Last Admin: 08/23/17 21:18 Dose: 10 mg Pancrelipase (Creon Dr 36,000 Units Capsule) 1 cap PO TIDCM [facility] Last Admin: 08/24/17 07:44 Dose: Not Given Pantoprazole Sodium (Protonix -) 40 mg PO DAILY [facility] Last Admin: 08/24/17 10:25 Dose: Not Given Ramipril (Altace -) 20 mg PO DAILY [facility] Last Admin: 08/24/17 10:24 Dose: 20 mg Rosuvastatin Calcium (Crestor -) 10 mg PO [facility] Last Admin: 08/23/17 21:18 Dose: 10 mg Senna (Senna -) 1 tab PO HS [facility] Last Admin: 08/23/17 21:18 Dose: 1 tab Tamsulosin HCl (Flomax -) 0.4 mg PO DAILY@0830 [facility] Last Admin: 08/24/17 10:24 Dose: Not Given Tiotropium [place] (Spiriva -) 1 puff IH DAILY [facility] Last Admin: 08/24/17 09:47 Dose: 1 puff - Objective Vital Signs: Vital Signs Temperature 98.0 F 08/24/17 08:31 Pulse Rate 79 08/24/17 08:31 Respiratory Rate 18 08/24/17 08:31 Blood Pressure 130/73 08/24/17 08:31 O2 Sat by Pulse Oximetry (%) 96 08/24/17 09:00 Constitutional: Yes: Well Nourished, No Distress, Calm Cardiovascular: Yes: Regular Rate and Rhythm Respiratory: Yes: Regular Gastrointestinal: Yes: Abdomen, Obese, Hernia (unbilical) Edema: No Peripheral Pulses WNL: Yes Neurological: Yes: Alert, Oriented Psychiatric: Yes: Alert, Oriented Labs: CBC, BMP 08/24/17 06:40 08/24/17 06:40 INR, PTT INR 1.22 (0.82-1.09) H 08/21/17 06:55 Problem List - Problems (1) Hematuria Assessment/Plan: -seen by Urology -UA +3 blood -UC negative -has BPH, on tamsulosin and finestride -CT abdomen/pelvis pending Code(s): R31.9 - HEMATURIA, UNSPECIFIED (2) Pneumonia Assessment/Plan: -seen by ID -IV abx -seen by pulmonary -bronchodilators -afebrile Code(s): J18.9 - PNEUMONIA, UNSPECIFIED ORGANISM Qualifiers: Pneumonia type: due to unspecified organism Laterality: right Lung location: unspecified part of lung Qualified Code(s): J18.9 - Pneumonia, unspecified organism (3) Umbilical hernia Assessment/Plan: -seen by GI surgery -Plavix being held -Can continue ASA -Plan for umbilical hernia repair with possible mesh -BP meds today in AM with sip of water, hold rest Code(s): K42.9 - UMBILICAL HERNIA WITHOUT OBSTRUCTION OR GANGRENE Qualifiers: Obstruction and gangrene presence: without obstruction or gangrene Qualified Code(s): K42.9 - Umbilical hernia without obstruction or gangrene (4) ASHD (arteriosclerotic heart disease) Assessment/Plan: -seen by Cardiology -Plavix being held -on Zetia -asa 81 mg Code(s): I25.10 - ATHSCL HEART DISEASE OF [place] CORONARY ARTERY W/O ANG PCTRS Assessment/Plan see problem list
[2017-08-24] MEDS: ALBUTEROL SO4 2.5/IPRATROPIUM 0.5 INH SOL 3 ML VIAL.NEB. NEB PRN ×2 (11:27→21:30)
--- NOTE | 2017-08-24 15:51 | PN ---
Progress Note (short form) - Note Progress Note: Patient scheduled for open umbilical hernia repair Due to chronic tracheostomy, there was concern by Anesthesiology regarding intubation Recommendation for spinal anesthesia was explained to the patient The patient is considering this and will likely proceed, but wanted to postpone until Problem List - Problems (1) Umbilical hernia Code(s): K42.9 - UMBILICAL HERNIA WITHOUT OBSTRUCTION OR GANGRENE Qualifiers: Obstruction and gangrene presence: without obstruction or gangrene Qualified Code(s): K42.9 - Umbilical hernia without obstruction or gangrene
[2017-08-24] MEDS: SODIUM CHLORIDE 1,000 ML IV SCH (16:12)
--- NOTE | 2017-08-24 17:55 | PN ---
Progress Note, Physician History of Present Illness: No dyspnea or wheezing. - Current Medication List Current Medications: Active Medications Albuterol/Ipratropium (Duoneb -) 1 amp NEB Q6H PRN PRN Reason: SHORTNESS OF BREATH Last Admin: 08/24/17 11:27 Dose: 1 amp Amlodipine Besylate (Norvasc -) 5 mg PO DAILY [facility] Last Admin: 08/24/17 10:24 Dose: 5 mg Aspirin (Ecotrin -) 81 mg PO DAILY [facility] Last Admin: 08/24/17 10:24 Dose: Not Given Budesonide/Formoterol Fumarate (Symbicort 160/4.5mcg -) 1 puff IH BID [facility] Last Admin: 08/24/17 09:47 Dose: 1 puff Ezetimibe (Zetia -) 10 mg PO DAILY [facility] Last Admin: 08/24/17 10:25 Dose: Not Given Finasteride (Proscar -) 5 mg PO DAILY [facility] Last Admin: 08/24/17 10:25 Dose: Not Given Gabapentin (Neurontin -) 600 mg PO DAILY [facility] Last Admin: 08/24/17 10:25 Dose: Not Given Gabapentin (Neurontin -) 800 mg PO HS [facility] Last Admin: 08/23/17 21:17 Dose: 800 mg Hydromorphone HCl (Dilaudid Injection -) 4 mg IVPB Q4H PRN PRN Reason: PAIN LEVEL 7 - 10 Last Admin: 08/24/17 17:32 Dose: 4 mg Levofloxacin (Levaquin 500 Mg Premixed Ivpb -) 500 mg in 100 mls @ 100 mls/hr IVPB DAILY [facility] Last Admin: 08/24/17 09:43 Dose: 100 mls/hr Sodium Chloride (Normal Saline -) 1,000 mls @ 75 mls/hr IV ASDIR [facility] Last Admin: 08/24/17 16:12 Dose: 75 mls/hr Insulin Aspart (Novolog Vial Sliding Scale -) 1 vial SQ ACHS [facility] PRN Reason: Protocol Last Admin: 08/24/17 16:15 Dose: Not Given Montelukast Sodium (Singulair -) 10 mg PO HS [facility] Last Admin: 08/23/17 21:18 Dose: 10 mg Pancrelipase (Creon Dr 36,000 Units Capsule) 1 cap PO TIDCM [facility] Last Admin: 08/24/17 17:20 Dose: 1 cap Pantoprazole Sodium (Protonix -) 40 mg PO DAILY [facility] Last Admin: 08/24/17 10:25 Dose: Not Given Ramipril (Altace -) 20 mg PO DAILY [facility] Last Admin: 08/24/17 10:24 Dose: 20 mg Rosuvastatin Calcium (Crestor -) 10 mg PO [facility] Last Admin: 08/23/17 21:18 Dose: 10 mg Senna (Senna -) 1 tab PO [facility] Last Admin: 08/23/17 21:18 Dose: 1 tab Tamsulosin HCl (Flomax -) 0.4 mg PO DAILY@0830 [facility] Last Admin: 08/24/17 10:24 Dose: Not Given Tiotropium [place] (Spiriva -) 1 puff IH DAILY [facility] Last Admin: 08/24/17 09:47 Dose: 1 puff - Objective Vital Signs: Vital Signs Temperature 98.0 F 08/24/17 08:31 Pulse Rate 78 08/24/17 16:08 Respiratory Rate 18 08/24/17 16:08 Blood Pressure 150/70 08/24/17 16:08 O2 Sat by Pulse Oximetry (%) 96 08/24/17 09:00 Constitutional: Yes: No Distress, Calm Eyes: No: Sclera Icterus HENT: Yes: Atraumatic, Normocephalic Neck: Yes: Supple, Other (tracheostomy) Cardiovascular: Yes: Regular Rate and Rhythm. No: JVD Respiratory: Yes: CTA Bilaterally Gastrointestinal: Yes: Soft. No: Tenderness Extremities: No: Calf Tenderness Edema: No Neurological: Yes: Alert, Oriented Labs: CBC, BMP 08/24/17 06:40 08/24/17 06:40 INR, PTT INR 1.22 (0.82-1.09) H 08/21/17 06:55 Problem List - Problems (1) Umbilical hernia Code(s): K42.9 - UMBILICAL HERNIA WITHOUT OBSTRUCTION OR GANGRENE Qualifiers: Obstruction and gangrene presence: without obstruction or gangrene Qualified Code(s): K42.9 - Umbilical hernia without obstruction or gangrene (2) COPD (chronic obstructive pulmonary disease) Code(s): J44.9 - CHRONIC OBSTRUCTIVE PULMONARY DISEASE, UNSPECIFIED (3) Coronary artery disease Code(s): I25.10 - ATHSCL HEART DISEASE OF [place] CORONARY ARTERY W/O ANG PCTRS (4) Diabetes mellitus Code(s): E11.9 - TYPE 2 DIABETES MELLITUS WITHOUT COMPLICATIONS Qualifiers: Diabetes mellitus type: type 2 Diabetes mellitus complication detail: with unspecified neuropathy (5) Pancreatitis Code(s): K85.9 - ACUTE PANCREATITIS, UNSPECIFIED * DO NOT USE * Qualifiers: Chronicity: acute Pancreatitis type: other (6) Sleep apnea Code(s): G47.30 - SLEEP APNEA, UNSPECIFIED (7) Tracheostomy in place Code(s): Z98.89 - OTHER SPECIFIED POSTPROCEDURAL STATES * DO NOT USE * Assessment/Plan Surgery delayed because of question of what type of anesthesia to use. Pt has a tracheotomy x many years. He has a: [employer] cannula size 6 x 33 and is followed by: Gerald Castro Jr. M.D. TEL: [phone] FAX: [phone] [facility]. Can pt have fractional MAC or spinal? Trach. should be left unplugged during procedure. If general given can he have an endotracheal tube placed leaving his Bedoya cannula in place during surgery? If Bedoya cannula needs to be replaced during surgery it should be done by an anesthesiologist and/or ENT who is experienced with dealing with this type of tube. Respiratory status is stable at present. Suggest: Continue current treatment Monitor closely in the perioperative period for exacerbation of COPD. Surgery delayed because of quetion of type of anesthesia. Would give iv steroid at time of surgery.
--- NOTE | 2017-08-24 19:33 | PN ---
Progress Note, Physician Chief Complaint: Events noted Await surgery for umbilical hernia - postponed as outlined by Dr. Cabrera History of Present Illness: Patient was seen and examined. Awake and alert. Chart was reviewed Denies chest pain, SOB or palpitations Patient of Dr. Bola Elaine. - Current Medication List Current Medications: Active Medications Albuterol/Ipratropium (Duoneb -) 1 amp NEB Q6H PRN PRN Reason: SHORTNESS OF BREATH Last Admin: 08/24/17 11:27 Dose: 1 amp Amlodipine Besylate (Norvasc -) 5 mg PO DAILY [facility] Last Admin: 08/24/17 10:24 Dose: 5 mg Aspirin (Ecotrin -) 81 mg PO DAILY [facility] Last Admin: 08/24/17 10:24 Dose: Not Given Budesonide/Formoterol Fumarate (Symbicort 160/4.5mcg -) 1 puff IH BID [facility] Last Admin: 08/24/17 09:47 Dose: 1 puff Ezetimibe (Zetia -) 10 mg PO DAILY [facility] Last Admin: 08/24/17 10:25 Dose: Not Given Finasteride (Proscar -) 5 mg PO DAILY [facility] Last Admin: 08/24/17 10:25 Dose: Not Given Gabapentin (Neurontin -) 600 mg PO DAILY [facility] Last Admin: 08/24/17 10:25 Dose: Not Given Gabapentin (Neurontin -) 800 mg PO HS [facility] Last Admin: 08/23/17 21:17 Dose: 800 mg Hydromorphone HCl (Dilaudid Injection -) 4 mg IVPB Q4H PRN PRN Reason: PAIN LEVEL 7 - 10 Last Admin: 08/24/17 17:32 Dose: 4 mg Levofloxacin (Levaquin 500 Mg Premixed Ivpb -) 500 mg in 100 mls @ 100 mls/hr IVPB DAILY [facility] Last Admin: 08/24/17 09:43 Dose: 100 mls/hr Sodium Chloride (Normal Saline -) 1,000 mls @ 75 mls/hr IV ASDIR [facility] Last Admin: 08/24/17 16:12 Dose: 75 mls/hr Insulin Aspart (Novolog Vial Sliding Scale -) 1 vial SQ ACHS [facility] PRN Reason: Protocol Last Admin: 08/24/17 16:15 Dose: Not Given Montelukast Sodium (Singulair -) 10 mg PO HS [facility] Last Admin: 08/23/17 21:18 Dose: 10 mg Pancrelipase (Creon Dr 36,000 Units Capsule) 1 cap PO TIDCM [facility] Last Admin: 08/24/17 17:20 Dose: 1 cap Pantoprazole Sodium (Protonix -) 40 mg PO DAILY [facility] Last Admin: 08/24/17 10:25 Dose: Not Given Ramipril (Altace -) 20 mg PO DAILY [facility] Last Admin: 08/24/17 10:24 Dose: 20 mg Rosuvastatin Calcium (Crestor -) 10 mg PO HS [facility] Last Admin: 08/23/17 21:18 Dose: 10 mg Senna (Senna -) 1 tab PO [facility] Last Admin: 08/23/17 21:18 Dose: 1 tab Tamsulosin HCl (Flomax -) 0.4 mg PO DAILY@0830 [facility] Last Admin: 08/24/17 10:24 Dose: Not Given Tiotropium [place] (Spiriva -) 1 puff IH DAILY [facility] Last Admin: 08/24/17 09:47 Dose: 1 puff - Objective Vital Signs: Vital Signs Temperature 98.0 F 08/24/17 08:31 Pulse Rate 78 08/24/17 16:08 Respiratory Rate 18 08/24/17 16:08 Blood Pressure 150/70 08/24/17 16:08 O2 Sat by Pulse Oximetry (%) 96 08/24/17 09:00 Constitutional: Yes: Well Nourished Eyes: Yes: PERRL HENT: Yes: Atraumatic Neck: Yes: Supple Cardiovascular: Yes: Regular Rate and Rhythm, S1, S2 Respiratory: Yes: CTA Bilaterally Gastrointestinal: Yes: Normal Bowel Sounds, Soft, Abdomen, Obese, Other ( Umbilical hernia). 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 Code(s): E10.8 - TYPE 1 DIABETES MELLITUS WITH UNSPECIFIED COMPLICATIONS (3) Hematuria Code(s): R31.9 - HEMATURIA, UNSPECIFIED (4) Renal calculus, left Code(s): N20.0 - CALCULUS OF KIDNEY (5) ASHD (arteriosclerotic heart disease) Code(s): I25.10 - ATHSCL HEART DISEASE OF [place] CORONARY ARTERY W/O ANG PCTRS (6) Abdominal pain Code(s): R10.9 - UNSPECIFIED ABDOMINAL PAIN Qualifiers: Abdominal location: upper abdomen, unspecified Qualified Code(s): R10.10 - Upper abdominal pain, unspecified (7) Acute on chronic diastolic (congestive) heart failure Code(s): I50.33 - ACUTE ON CHRONIC DIASTOLIC (CONGESTIVE) HEART FAILURE (8) Anemia Code(s): D64.9 - ANEMIA, UNSPECIFIED (9) Asthma Code(s): J45.909 - UNSPECIFIED ASTHMA, UNCOMPLICATED Qualifiers: Asthma severity: unspecified severity (10) Diabetes mellitus Code(s): E11.9 - TYPE 2 DIABETES MELLITUS WITHOUT COMPLICATIONS Qualifiers: Diabetes mellitus type: type 2 Diabetes mellitus complication detail: with unspecified neuropathy (11) Hypertension Code(s): I10 - ESSENTIAL (PRIMARY) HYPERTENSION Qualifiers: Hypertension type: essential hypertension Qualified Code(s): I10 - Essential (primary) hypertension (12) IPMN (intraductal papillary mucinous neoplasm) Code(s): D49.0 - NEOPLASM OF UNSPECIFIED BEHAVIOR OF DIGESTIVE SYSTEM (13) GRACIE (obstructive sleep apnea) Code(s): G47.33 - OBSTRUCTIVE SLEEP APNEA (ADULT) (PEDIATRIC) Assessment/Plan 1. Pre-operative cardiovascular evaluation prior to umbilical hernia repair 2. Chronic pancreatitis and esophagitis 3. Chronic atypical chest pain 4. CAD s/p OR, post PCI (stents), angina pectoris 6. HTN/HCVD 5. Hyperlipidemia 6. Diastolic dysfunction and pulmonary HTN 7. OSAS 8. COPD/Asthma 9. Acute on CKD resolving 10. Hematuria with left non-obstructive calculus PLAN: 1. Continue current medical therapy and tentatively surgery scheduled for as per surgery service 2. Bronchodilator, O2 as needed and empiric antibiotic coverage 3. Given absence of symptoms of acute ischemic symptoms, decompensated CHF or malignant arrhythmia and most recent stress testing 07/16/2016 showing inferior infarct with [id number] ischemia, may proceed with surgery from cardiovascular standpoint without further testing. Plavix has been stopped and continue ASA 81 mg daily rosamaria-operatively and to renew Plavix once post-op hemostasis has been achieved. Further plans are to follow. Will notify Dr. Bola Calvillo MD
[2017-08-24] MEDS: SENNOSIDES 8.6MG TABLET (FP) PO SCH (21:41)
[2017-08-24] MEDS: MONTELUKAST NA 10 MG TABLET PO SCH (21:41)
[2017-08-24] MEDS: GABAPENTIN 400 MG CAPSULE (FP) PO SCH (21:41)
[2017-08-24] MEDS: ROSUVASTATIN CA 10 MG TABLET (FP) PO SCH (21:47)
[2017-08-25] MEDS: HYDROmorphone HCL CARPU-JECT 4 MG/1 ML DISP.SYRIN IVPB PRN ×5 (01:31→20:38)
[2017-08-25] MEDS: INSULIN SLIDING SCALE (NOVOLOG) 1 VIAL SQ SCH ×4 (06:04→21:54)
[2017-08-25 07:40] LABS: BASO % 0.8 % (0-2.0); EOS % 2.3 % (0-4.5); HEMATOCRIT 33.1 % (35.4-49); HEMOGLOBIN 10.8 GM/dL (11.7-16.9); LYMPH % 35.1 % (8-40); MCH 26.3 pg (25.7-33.7); MCHC 32.7 g/dl (32.0-35.9); MEAN CELL VOLUME 80.4 fl (80-96); MEAN PLT VOLUME 6.7 fl (7.5-11.1); MONO % 11.2 % (3.8-10.2); NEUT % 50.6 % (42.8-82.8); PLATELET COUNT 356 K/MM3 (134-434); RBC 4.12 M/mm3 (4.00-5.60); RDW 14.5 % (11.9-15.9); WHITE BLOOD COUNT 8.5 K/mm3 (4.0-10.0)
[2017-08-25 08:10] LABS: CHLORIDE 108 mmol/L (98-107); POTASSIUM 3.4 mmol/L (3.5-5.1); SODIUM 143 mmol/L (136-145)
[2017-08-25] MEDS: LIPASE/PROTEASE/AMYLASE 36,000 UNIT CAPSULE PO SCH ×3 (09:10→18:27)
[2017-08-25 09:12] LABS: ALBUMIN 2.9 g/dl (3.4-5.0); ALK PHOS 89 U/L (45-117); ANION GAP 9 (8-16); BILIRUBIN,TOTAL 0.4 mg/dL (0.2-1.0); BLOOD UREA NITROGEN 5 mg/dL (7-18); CALCIUM 9.4 mg/dL (8.5-10.1); CO2 26 mmol/L (21-32); CREATININE 0.9 mg/dL (0.7-1.3); GLUCOSE,RANDOM 105 mg/dL (74-106); SGOT/AST 49 U/L (15-37); SGPT/ALT 62 U/L (12-78); TOT PROT 5.9 g/dl (6.4-8.2)
[2017-08-25] MEDS: amLODIPine BESYLATE 2.5 MG TABLET (FP) PO SCH (09:12)
[2017-08-25] MEDS: TAMSULOSIN HCL 0.4 MG CAP.ER.24H (FP) PO SCH (09:12)
[2017-08-25] MEDS: FINASTERIDE 5 MG TABLET (FP) PO SCH (09:12)
[2017-08-25] MEDS: GABAPENTIN 300 MG CAPSULE (FP) PO SCH (09:12)
[2017-08-25] MEDS: ASPIRIN COATED 81 MG TABLET.EC PO SCH (09:12)
[2017-08-25] MEDS: RAMIPRIL 5 MG CAPSULE (FP) PO SCH (09:13)
[2017-08-25] MEDS: PANTOPRAZOLE 40 MG TABLET (FP) PO SCH (09:15)
[2017-08-25] MEDS: BUDESONIDE/FORMETEROL FUMARATE 160/4.5 mcg INHALER IH SCH ×2 (09:18→21:55)
[2017-08-25] MEDS: TIOTROPIUM BROMIDE 18 MCG/INH (DEVICE W/ 5 CAPSULES) IH SCH (09:18)
[2017-08-25] MEDS: EZETIMIBE 10 MG TABLET (FP) PO SCH (09:28)
[2017-08-25] MEDS: SODIUM CHLORIDE 1,000 ML IV SCH ×2 (09:30→12:08)
[2017-08-25] MEDS ORDERED: PT OWN MED DRAWER 7, Y5N ONE ×2 (11:35→19:34)
--- NOTE | 2017-08-25 11:40 | PN ---
Progress Note, Physician Chief Complaint: Pneumonia, Hematuria, Umbilical hernia History of Present Illness: NAD, sitting in bed, complaining of right Lumbar pain. Started on Dilaudid HCS: 06/15/2017 06/16/2017 nucynta er 150 mg tablet 60 30 Xavier Prince MD 06/15/2017 06/16/2017 hydromorphone 4 mg tablet 120 30 Xavier Prince MD 06/15/2017 06/16/2017 oxycodone-acetaminophen 10-325 mg tab 180 23Xavier Prince MD 04/06/2017 04/24/2017 testosterone 30 mg/1.5 ml pump 90ml 30 Murali Gustafson MD 04/06/2017 04/06/2017 diazepam 5 mg tablet 14 14 Murali Gustafson MD 02/22/2017 02/22/2017 zolpidem tart er 6.25 mg tab 10 10 Markus Knox MD 02/22/2017 02/22/2017 diazepam 10 mg tablet 20 10 Markus Knox MD 12/31/2016 01/16/2017 hydromorphone 4 mg tablet 120 30 Xavier Prince MD 12/31/2016 01/07/2017 nucynta er 150 mg tablet 60 30 Xavier Prince MD 12/31/2016 01/07/2017 oxycodone-acetaminophen 7.5-325 mg tablet 180 22 Xavier Prince MD 10/13/2016 10/14/2016 nucynta er 150 mg tablet 60 30 Xavier Prince MD 10/13/2016 10/14/2016 hydromorphone 4 mg tablet 120 30 Xavier Prince MD 10/13/2016 10/14/2016 oxycodone-acetaminophen 7.5-325 mg tablet 138 23 Xavier Prince MD 06/26/2016 09/08/2016 tramadol hcl er 100 mg tablet 30 30 Kadie Singh MD 08/17/2016 09/08/2016 codeine-guaifen 10-100 mg/5 ml 150ml 5 Markus Knox MD for constipation Surgery delayed until tomorrow due to question of what type of anesthesia to use. Pt has a tracheotomy for 15 years. He has a: [employer] cannula size 6 x 33 that is followed by Gerald Castro Jr. M.D. TEL: [phone] FAX: [phone] [facility] in [place] As per pulmonary: Can pt have fractional MAC or spinal? Trach. should be left unplugged during procedure. If general given can he have an endotracheal tube placed leaving his Bedoya cannula in place during surgery? If Bedoya cannula needs to be replaced during surgery it should be done by an anesthesiologist and/or ENT who is experienced with dealing with this type of tube. Awaiting CT abd/pelvis Awaiting MRI lumbar spine - Current Medication List Current Medications: Active Medications Albuterol/Ipratropium (Duoneb -) 1 amp NEB Q6H PRN PRN Reason: SHORTNESS OF BREATH Last Admin: 08/24/17 21:30 Dose: 1 amp Amlodipine Besylate (Norvasc -) 5 mg PO DAILY [facility] Last Admin: 08/25/17 09:12 Dose: 5 mg Aspirin (Ecotrin -) 81 mg PO DAILY [facility] Last Admin: 08/25/17 09:12 Dose: 81 mg Budesonide/Formoterol Fumarate (Symbicort 160/4.5mcg -) 1 puff IH BID [facility] Last Admin: 08/25/17 09:18 Dose: 1 puff Ezetimibe (Zetia -) 10 mg PO DAILY [facility] Last Admin: 08/25/17 09:28 Dose: 10 mg Finasteride (Proscar -) 5 mg PO DAILY [facility] Last Admin: 08/25/17 09:12 Dose: 5 mg Gabapentin (Neurontin -) 600 mg PO DAILY [facility] Last Admin: 08/25/17 09:12 Dose: 600 mg Gabapentin (Neurontin -) 800 mg PO HS [facility] Last Admin: 08/24/17 21:41 Dose: 800 mg Hydromorphone HCl (Dilaudid Injection -) 4 mg IVPB Q4H PRN PRN Reason: PAIN LEVEL 7 - 10 Last Admin: 08/25/17 10:41 Dose: 4 mg Levofloxacin (Levaquin 500 Mg Premixed Ivpb -) 500 mg in 100 mls @ 100 mls/hr IVPB DAILY [facility] Last Admin: 08/25/17 09:14 Dose: 100 mls/hr Sodium Chloride (Normal Saline -) 1,000 mls @ 75 mls/hr IV ASDIR [facility] Last Admin: 08/25/17 09:30 Dose: 75 mls/hr Insulin Aspart (Novolog Vial Sliding Scale -) 1 vial SQ ACHS [facility] PRN Reason: Protocol Last Admin: 08/25/17 06:04 Dose: Not Given Montelukast Sodium (Singulair -) 10 mg PO [facility] Last Admin: 08/24/17 21:41 Dose: 10 mg Pancrelipase (Creon Dr 36,000 Units Capsule) 1 cap PO TIDCM [facility] Last Admin: 08/25/17 09:10 Dose: 1 cap Pantoprazole Sodium (Protonix -) 40 mg PO DAILY [facility] Last Admin: 08/25/17 09:15 Dose: 40 mg Potassium Chloride (K-Dur -) 40 meq PO ONCE ONE Stop: 08/25/17 11:36 Ramipril (Altace -) 20 mg PO DAILY [facility] Last Admin: 08/25/17 09:13 Dose: 20 mg Rosuvastatin Calcium (Crestor -) 10 mg PO [facility] Last Admin: 08/24/17 21:47 Dose: 10 mg Senna (Senna -) 1 tab PO [facility] Last Admin: 08/24/17 21:41 Dose: 1 tab Tamsulosin HCl (Flomax -) 0.4 mg PO DAILY@0830 [facility] Last Admin: 08/25/17 09:12 Dose: 0.4 mg Tiotropium [place] (Spiriva -) 1 puff IH DAILY [facility] Last Admin: 08/25/17 09:18 Dose: 1 puff - Objective Vital Signs: Vital Signs Temperature 98.5 F 08/25/17 06:00 Pulse Rate 90 08/25/17 06:00 Respiratory Rate 18 08/25/17 06:00 Blood Pressure 141/94 08/25/17 06:00 O2 Sat by Pulse Oximetry (%) 96 08/24/17 21:00 Constitutional: Yes: Well Nourished, No Distress, Calm Cardiovascular: Yes: Regular Rate and Rhythm Respiratory: Yes: Regular Gastrointestinal: Yes: Normal Bowel Sounds, Soft, Abdomen, Obese, Hernia ( umbilical) Musculoskeletal: Yes: WNL Extremities: Yes: WNL Edema: No Peripheral Pulses WNL: Yes Neurological: Yes: Alert, Oriented Psychiatric: Yes: Alert, Oriented Labs: CBC, BMP 08/25/17 06:40 08/25/17 06:40 INR, PTT INR 1.22 (0.82-1.09) H 08/21/17 06:55 Problem List - Problems (1) Hematuria Assessment/Plan: -seen by Urology -UA +3 blood -UC negative -has BPH, on tamsulosin and finestride -CT abdomen/pelvis pending -H/H stable Code(s): R31.9 - HEMATURIA, UNSPECIFIED (2) Pneumonia Assessment/Plan: -seen by ID -IV abx -seen by pulmonary -bronchodilators -afebrile Code(s): J18.9 - PNEUMONIA, UNSPECIFIED ORGANISM Qualifiers: Pneumonia type: due to unspecified organism Laterality: right Lung location: unspecified part of lung Qualified Code(s): J18.9 - Pneumonia, unspecified organism (3) Umbilical hernia Assessment/Plan: -seen by GI surgery -Plavix being held -Can continue ASA -Seen by Cardiology for clearance -Plan for umbilical hernia repair with possible mesh in AM -BP meds today in AM with sip of water, hold rest Code(s): K42.9 - UMBILICAL HERNIA WITHOUT OBSTRUCTION OR GANGRENE Qualifiers: Obstruction and gangrene presence: without obstruction or gangrene Qualified Code(s): K42.9 - Umbilical hernia without obstruction or gangrene (4) ASHD (arteriosclerotic heart disease) Assessment/Plan: -seen by Cardiology -Plavix being held -on Zetia -asa 81 mg Code(s): I25.10 - ATHSCL HEART DISEASE OF [place] CORONARY ARTERY W/O ANG PCTRS Assessment/Plan see problem list Anesthesia to discuss plan with Dr Castro and patient
[2017-08-25] MEDS ORDERED: POTASSIUM CHLORIDE TABS 20 MEQ TABLET.ER (FP) PO ONE (12:00)
--- NOTE | 2017-08-25 12:52 | PN ---
Progress Note, Physician History of Present Illness: Await umbilical hernia repair pending management decision regarding chronic trach. Hematuria resolving. - Current Medication List Current Medications: Active Medications Albuterol/Ipratropium (Duoneb -) 1 amp NEB Q6H PRN PRN Reason: SHORTNESS OF BREATH Last Admin: 08/24/17 21:30 Dose: 1 amp Amlodipine Besylate (Norvasc -) 5 mg PO DAILY [facility] Last Admin: 08/25/17 09:12 Dose: 5 mg Aspirin (Ecotrin -) 81 mg PO DAILY [facility] Last Admin: 08/25/17 09:12 Dose: 81 mg Budesonide/Formoterol Fumarate (Symbicort 160/4.5mcg -) 1 puff IH BID [facility] Last Admin: 08/25/17 09:18 Dose: 1 puff Ezetimibe (Zetia -) 10 mg PO DAILY [facility] Last Admin: 08/25/17 09:28 Dose: 10 mg Finasteride (Proscar -) 5 mg PO DAILY [facility] Last Admin: 08/25/17 09:12 Dose: 5 mg Gabapentin (Neurontin -) 600 mg PO DAILY [facility] Last Admin: 08/25/17 09:12 Dose: 600 mg Gabapentin (Neurontin -) 800 mg PO HS [facility] Last Admin: 08/24/17 21:41 Dose: 800 mg Hydromorphone HCl (Dilaudid Injection -) 4 mg IVPB Q4H PRN PRN Reason: PAIN LEVEL 7 - 10 Last Admin: 08/25/17 10:41 Dose: 4 mg Sodium Chloride (Normal Saline -) 1,000 mls @ 75 mls/hr IV ASDIR [facility] Last Admin: 08/25/17 12:08 Dose: Not Given Insulin Aspart (Novolog Vial Sliding Scale -) 1 vial SQ ACHS [facility] PRN Reason: Protocol Last Admin: 08/25/17 12:42 Dose: Not Given Montelukast Sodium (Singulair -) 10 mg PO HS [facility] Last Admin: 08/24/17 21:41 Dose: 10 mg Pancrelipase (Creon Dr 36,000 Units Capsule) 1 cap PO TIDCM [facility] Last Admin: 08/25/17 11:38 Dose: 1 cap Pantoprazole Sodium (Protonix -) 40 mg PO DAILY [facility] Last Admin: 08/25/17 09:15 Dose: 40 mg Polyethylene Glycol (Miralax (For Daily Use) -) 17 gm PO DAILY [facility] Ramipril (Altace -) 20 mg PO DAILY [facility] Last Admin: 08/25/17 09:13 Dose: 20 mg Rosuvastatin Calcium (Crestor -) 10 mg PO HS [facility] Last Admin: 08/24/17 21:47 Dose: 10 mg Tamsulosin HCl (Flomax -) 0.4 mg PO DAILY@0830 [facility] Last Admin: 08/25/17 09:12 Dose: 0.4 mg Tiotropium [place] (Spiriva -) 1 puff IH DAILY [facility] Last Admin: 08/25/17 09:18 Dose: 1 puff - Objective Vital Signs: Vital Signs Temperature 98.5 F 08/25/17 06:00 Pulse Rate 90 08/25/17 06:00 Respiratory Rate 18 08/25/17 06:00 Blood Pressure 141/94 08/25/17 06:00 O2 Sat by Pulse Oximetry (%) 96 08/24/17 21:00 Constitutional: Yes: No Distress, Calm Neck: Yes: Supple Cardiovascular: Yes: Regular Rate and Rhythm Respiratory: Yes: Regular, Diminished Gastrointestinal: Yes: Normal Bowel Sounds, Soft, Palpable Mass Edema: No Labs: CBC, BMP 08/25/17 06:40 08/25/17 06:40 INR, PTT INR 1.22 (0.82-1.09) H 08/21/17 06:55 Problem List - Problems (1) Chest pain Code(s): R07.9 - CHEST PAIN, UNSPECIFIED Qualifiers: Chest pain type: unspecified Qualified Code(s): R07.9 - Chest pain, unspecified (2) Chronic pancreatitis Code(s): K86.1 - OTHER CHRONIC PANCREATITIS Qualifiers: Pancreatitis type: unspecified pancreatitis type Qualified Code(s): K86.1 - Other chronic pancreatitis (3) Abdominal pain Code(s): R10.9 - UNSPECIFIED ABDOMINAL PAIN Qualifiers: Abdominal location: upper abdomen, unspecified Qualified Code(s): R10.10 - Upper abdominal pain, unspecified (4) Asthma Code(s): J45.909 - UNSPECIFIED ASTHMA, UNCOMPLICATED Qualifiers: Asthma severity: unspecified severity (5) COPD (chronic obstructive pulmonary disease) Code(s): J44.9 - CHRONIC OBSTRUCTIVE PULMONARY DISEASE, UNSPECIFIED (6) Chronic diastolic (congestive) heart failure Code(s): I50.32 - CHRONIC DIASTOLIC (CONGESTIVE) HEART FAILURE (7) Coronary artery disease Code(s): I25.10 - ATHSCL HEART DISEASE OF [place] CORONARY ARTERY W/O ANG PCTRS (8) Diabetes mellitus Code(s): E11.9 - TYPE 2 DIABETES MELLITUS WITHOUT COMPLICATIONS Qualifiers: Diabetes mellitus type: type 2 Diabetes mellitus complication detail: with unspecified neuropathy (9) Esophagitis determined by endoscopy Code(s): K20.9 - ESOPHAGITIS, UNSPECIFIED (10) Hyperlipidemia Code(s): E78.5 - HYPERLIPIDEMIA, UNSPECIFIED (11) Hypertension Code(s): I10 - ESSENTIAL (PRIMARY) HYPERTENSION Qualifiers: Hypertension type: essential hypertension Qualified Code(s): I10 - Essential (primary) hypertension (12) Hypertension associated with diabetes Code(s): E11.59 - TYPE 2 DIABETES MELLITUS WITH OTH CIRCULATORY COMPLICATIONS; I10 - ESSENTIAL (PRIMARY) HYPERTENSION (13) IPMN (intraductal papillary mucinous neoplasm) Code(s): D49.0 - NEOPLASM OF UNSPECIFIED BEHAVIOR OF DIGESTIVE SYSTEM (14) Myocardial infarct Code(s): I21.3 - ST ELEVATION (STEMI) MYOCARDIAL INFARCTION OF UNSP SITE (15) GRACIE (obstructive sleep apnea) Code(s): G47.33 - OBSTRUCTIVE SLEEP APNEA (ADULT) (PEDIATRIC) (16) Type 2 diabetes mellitus with diabetic neuropathy Code(s): E11.40 - TYPE 2 DIABETES MELLITUS WITH DIABETIC NEUROPATHY, UNSP (17) Renal calculus, left Code(s): N20.0 - CALCULUS OF KIDNEY Assessment/Plan 1. Pre-operative cardiovascular evaluation prior to umbilical hernia repair 2. Chronic pancreatitis and esophagitis 3. Chronic atypical chest pain 4. CAD s/p [place], post PCI (stents), angina pectoris 6. HTN/HCVD 5. Hyperlipidemia 6. Diastolic dysfunction and pulmonary HTN 7. OSAS 8. COPD/Asthma 9. Acute on CKD resolving 10. Hematuria with left non-obstructive calculus resolving PLAN: 1. Continue current medical therapy and tentatively surgery scheduled for as per surgery service 2. Bronchodilator, O2 as needed and empiric antibiotic coverage 3. Given absence of symptoms of acute ischemic symptoms, decompensated CHF or malignant arrhythmia and most recent stress testing 07/16/2016 showing inferior infarct with [id number] ischemia, may proceed with surgery from cardiovascular standpoint without further testing. Plavix has been stopped and continue ASA 81 mg daily rosamaria-operatively and to renew Plavix once post-op hemostasis has been achieved.
[2017-08-25] MEDS: POLYETHYLENE GLYCOL 3350 119 GM BTL PO SCH (13:57)
--- NOTE | 2017-08-25 17:29 | PN ---
Progress Note, Physician History of Present Illness: No dyspnea or wheezing. - Current Medication List Current Medications: Active Medications Albuterol/Ipratropium (Duoneb -) 1 amp NEB Q6H PRN PRN Reason: SHORTNESS OF BREATH Last Admin: 08/24/17 21:30 Dose: 1 amp Amlodipine Besylate (Norvasc -) 5 mg PO DAILY [facility] Last Admin: 08/25/17 09:12 Dose: 5 mg Aspirin (Ecotrin -) 81 mg PO DAILY [facility] Last Admin: 08/25/17 09:12 Dose: 81 mg Budesonide/Formoterol Fumarate (Symbicort 160/4.5mcg -) 1 puff IH BID [facility] Last Admin: 08/25/17 09:18 Dose: 1 puff Ezetimibe (Zetia -) 10 mg PO DAILY [facility] Last Admin: 08/25/17 09:28 Dose: 10 mg Finasteride (Proscar -) 5 mg PO DAILY [facility] Last Admin: 08/25/17 09:12 Dose: 5 mg Gabapentin (Neurontin -) 600 mg PO DAILY [facility] Last Admin: 08/25/17 09:12 Dose: 600 mg Gabapentin (Neurontin -) 800 mg PO HS [facility] Last Admin: 08/24/17 21:41 Dose: 800 mg Hydromorphone HCl (Dilaudid Injection -) 4 mg IVPB Q4H PRN PRN Reason: PAIN LEVEL 7 - 10 Last Admin: 08/25/17 16:11 Dose: 4 mg Sodium Chloride (Normal Saline -) 1,000 mls @ 75 mls/hr IV ASDIR [facility] Last Admin: 08/25/17 12:08 Dose: Not Given Insulin Aspart (Novolog Vial Sliding Scale -) 1 vial SQ ACHS [facility] PRN Reason: Protocol Last Admin: 08/25/17 16:21 Dose: Not Given Montelukast Sodium (Singulair -) 10 mg PO HS [facility] Last Admin: 08/24/17 21:41 Dose: 10 mg Pancrelipase (Creon Dr 36,000 Units Capsule) 1 cap PO TIDCM [facility] Last Admin: 08/25/17 11:38 Dose: 1 cap Pantoprazole Sodium (Protonix -) 40 mg PO DAILY [facility] Last Admin: 08/25/17 09:15 Dose: 40 mg Polyethylene Glycol (Miralax (For Daily Use) -) 17 gm PO DAILY [facility] Last Admin: 08/25/17 13:57 Dose: 17 grams Ramipril (Altace -) 20 mg PO DAILY [facility] Last Admin: 08/25/17 09:13 Dose: 20 mg Rosuvastatin Calcium (Crestor -) 10 mg PO HS [facility] Last Admin: 08/24/17 21:47 Dose: 10 mg Tamsulosin HCl (Flomax -) 0.4 mg PO DAILY@0830 [facility] Last Admin: 08/25/17 09:12 Dose: 0.4 mg Tiotropium [place] (Spiriva -) 1 puff IH DAILY [facility] Last Admin: 08/25/17 09:18 Dose: 1 puff - Objective Vital Signs: Vital Signs Temperature 98.5 F 08/25/17 06:00 Pulse Rate 90 08/25/17 06:00 Respiratory Rate 18 08/25/17 06:00 Blood Pressure 141/94 08/25/17 06:00 O2 Sat by Pulse Oximetry (%) 96 08/24/17 21:00 Constitutional: Yes: No Distress HENT: Yes: Atraumatic, Normocephalic Neck: Yes: Supple, Other (trach site clean and dry) Cardiovascular: Yes: Regular Rate and Rhythm. No: JVD Respiratory: Yes: CTA Bilaterally Gastrointestinal: Yes: Soft. No: Tenderness Extremities: No: Calf Tenderness Edema: No Neurological: Yes: Alert, Oriented Labs: CBC, BMP 08/25/17 06:40 08/25/17 06:40 INR, PTT INR 1.22 (0.82-1.09) H 08/21/17 06:55 Problem List - Problems (1) Umbilical hernia Code(s): K42.9 - UMBILICAL HERNIA WITHOUT OBSTRUCTION OR GANGRENE Qualifiers: Obstruction and gangrene presence: without obstruction or gangrene Qualified Code(s): K42.9 - Umbilical hernia without obstruction or gangrene (2) COPD (chronic obstructive pulmonary disease) Code(s): J44.9 - CHRONIC OBSTRUCTIVE PULMONARY DISEASE, UNSPECIFIED (3) Coronary artery disease Code(s): I25.10 - ATHSCL HEART DISEASE OF [place] CORONARY ARTERY W/O ANG PCTRS (4) Diabetes mellitus Code(s): E11.9 - TYPE 2 DIABETES MELLITUS WITHOUT COMPLICATIONS Qualifiers: Diabetes mellitus type: type 2 Diabetes mellitus complication detail: with unspecified neuropathy (5) Pancreatitis Code(s): K85.9 - ACUTE PANCREATITIS, UNSPECIFIED * DO NOT USE * Qualifiers: Chronicity: acute Pancreatitis type: other (6) Sleep apnea Code(s): G47.30 - SLEEP APNEA, UNSPECIFIED (7) Tracheostomy in place Code(s): Z98.89 - OTHER SPECIFIED POSTPROCEDURAL STATES * DO NOT USE * Assessment/Plan Pt has a tracheotomy x many years. He has a: [employer] shelter cannula size 6 x 33 and is followed by: Gerald Castro Jr. M.D. TEL: [phone] FAX: [phone] [facility]. Apparently anenesthesiologists have decided wait type anesthesia patient should have.Trach. should be left unplugged during procedure. If [employer] cannula needs to be replaced during surgery it should be done by an anesthesiologist and /or ENT who is experienced with dealing with this type of tube. Respiratory status is stable at present. In light of long history steroid dependent asthma will give pre-op steroid dose. Suggest: Continue current treatment Monitor closely in the perioperative period for exacerbation of COPD. Surgery delayed because of quetion of type of anesthesia. Solumedrol 40 Mg IV x one dose in A.M.
[2017-08-25] MEDS: ALBUTEROL SO4 2.5/IPRATROPIUM 0.5 INH SOL 3 ML VIAL.NEB. NEB PRN (21:10)
[2017-08-25] MEDS: GABAPENTIN 400 MG CAPSULE (FP) PO SCH (21:53)
[2017-08-25] MEDS: ROSUVASTATIN CA 10 MG TABLET (FP) PO SCH (21:53)
[2017-08-25] MEDS: MONTELUKAST NA 10 MG TABLET PO SCH (21:55)
[2017-08-26] MEDS: HYDROmorphone HCL CARPU-JECT 4 MG/1 ML DISP.SYRIN IVPB PRN ×6 (00:25→23:27)
[2017-08-26] MEDS: SODIUM CHLORIDE 1,000 ML IV SCH ×2 (00:27→16:31)
[2017-08-26] MEDS: INSULIN SLIDING SCALE (NOVOLOG) 1 VIAL SQ SCH ×4 (06:32→23:02)
[2017-08-26] MEDS ORDERED: HYDROCORTISONE SOD SUCCINATE 100 MG/2 ML VIAL IVPB ONE (08:00)
[2017-08-26 08:15] LABS: BASO % 0.9 % (0-2.0); EOS % 1.5 % (0-4.5); HEMATOCRIT 35.4 % (35.4-49); HEMOGLOBIN 11.4 GM/dL (11.7-16.9); LYMPH % 48.7 % (8-40); MCH 26.1 pg (25.7-33.7); MCHC 32.1 g/dl (32.0-35.9); MEAN CELL VOLUME 81.4 fl (80-96); MEAN PLT VOLUME 6.7 fl (7.5-11.1); MONO % 10.6 % (3.8-10.2); NEUT % 38.3 % (42.8-82.8); PLATELET COUNT 347 K/MM3 (134-434); RBC 4.35 M/mm3 (4.00-5.60); RDW 14.4 % (11.9-15.9); WHITE BLOOD COUNT 10.6 K/mm3 (4.0-10.0)
[2017-08-26] MEDS: TAMSULOSIN HCL 0.4 MG CAP.ER.24H (FP) PO SCH (08:17)
[2017-08-26] MEDS: LIPASE/PROTEASE/AMYLASE 36,000 UNIT CAPSULE PO SCH ×3 (08:17→17:19)
[2017-08-26] MEDS: ALBUTEROL SO4 2.5/IPRATROPIUM 0.5 INH SOL 3 ML VIAL.NEB. NEB PRN ×2 (08:22→16:18)
[2017-08-26 08:41] LABS: CHLORIDE 107 mmol/L (98-107); POTASSIUM 3.6 mmol/L (3.5-5.1); SODIUM 141 mmol/L (136-145)
[2017-08-26 08:53] LABS: ALBUMIN 3.2 g/dl (3.4-5.0); ALK PHOS 92 U/L (45-117); ANION GAP 8 (8-16); BILIRUBIN,TOTAL 0.6 mg/dL (0.2-1.0); BLOOD UREA NITROGEN 4 mg/dL (7-18); CALCIUM 8.5 mg/dL (8.5-10.1); CO2 26 mmol/L (21-32); CREATININE 0.9 mg/dL (0.7-1.3); GLUCOSE,RANDOM 108 mg/dL (74-106); SGOT/AST 43 U/L (15-37); SGPT/ALT 59 U/L (12-78); TOT PROT 5.9 g/dl (6.4-8.2)
--- NOTE | 2017-08-26 09:44 | PN ---
Progress Note (short form) - Note Progress Note: Neurology This is a 61 y/o man with a significant medical history of HTN, HLD, CAD s/p [place] - 6 stents, DM, Chronic Pancreatitis, Chronic Cervical/Lumbar Pain who presented to the ED with abdominal pain x 4 weeks, CP, SOB and palpitations. Patient reports having N/D- constipation, productive cough with green phlegm. Placed on Augmentin and Cipro for a cough week prior to admission, with poor compliance secondary to abdominal pain. Patient previously seeing Dr. Singh and had extensive conversation regarding cervicalgia and cervical radiculopathy. On this admission, is having flank discomfort and history of lumbar treatment, therefore L spine ordered. Awaiting official read. Appears to have multilevel degenerative disease and spinal stenosis, unclear if at all changed from prior. Is on multiple pain medications. Patient awaiting umbilical hernia operation. Active Medications Albuterol/Ipratropium (Duoneb -) 1 amp NEB Q6H PRN PRN Reason: SHORTNESS OF BREATH Last Admin: 08/26/17 08:22 Dose: 1 amp Amlodipine Besylate (Norvasc -) 5 mg PO DAILY [facility] Last Admin: 08/25/17 09:12 Dose: 5 mg Aspirin (Ecotrin -) 81 mg PO DAILY [facility] Last Admin: 08/25/17 09:12 Dose: 81 mg Budesonide/Formoterol Fumarate (Symbicort 160/4.5mcg -) 1 puff IH BID [facility] Last Admin: 08/25/17 21:55 Dose: 1 puff Ezetimibe (Zetia -) 10 mg PO DAILY [facility] Last Admin: 08/25/17 09:28 Dose: 10 mg Finasteride (Proscar -) 5 mg PO DAILY [facility] Last Admin: 08/25/17 09:12 Dose: 5 mg Gabapentin (Neurontin -) 600 mg PO DAILY [facility] Last Admin: 08/25/17 09:12 Dose: 600 mg Gabapentin (Neurontin -) 800 mg PO HS [facility] Last Admin: 08/25/17 21:53 Dose: 800 mg Hydromorphone HCl (Dilaudid Injection -) 4 mg IVPB Q4H PRN PRN Reason: PAIN LEVEL 7 - 10 Last Admin: 08/26/17 09:15 Dose: 4 mg Sodium Chloride (Normal Saline -) 1,000 mls @ 75 mls/hr IV ASDIR [facility] Last Admin: 08/26/17 00:27 Dose: 75 mls/hr Insulin Aspart (Novolog Vial Sliding Scale -) 1 vial SQ ACHS [facility] PRN Reason: Protocol Last Admin: 08/26/17 06:32 Dose: Not Given Montelukast Sodium (Singulair -) 10 mg PO HS [facility] Last Admin: 08/25/17 21:55 Dose: 10 mg Pancrelipase (Creon Dr 36,000 Units Capsule) 1 cap PO TIDCM [facility] Last Admin: 08/26/17 08:17 Dose: Not Given Pantoprazole Sodium (Protonix -) 40 mg PO DAILY [facility] Last Admin: 08/25/17 09:15 Dose: 40 mg Polyethylene Glycol (Miralax (For Daily Use) -) 17 gm PO DAILY [facility] Last Admin: 08/25/17 13:57 Dose: 17 grams Ramipril (Altace -) 20 mg PO DAILY [facility] Last Admin: 08/25/17 09:13 Dose: 20 mg Rosuvastatin Calcium (Crestor -) 10 mg PO [facility] Last Admin: 08/25/17 21:53 Dose: 10 mg Tamsulosin HCl (Flomax -) 0.4 mg PO DAILY@0830 [facility] Last Admin: 08/26/17 08:17 Dose: Not Given Tiotropium [place] (Spiriva -) 1 puff IH DAILY [facility] Last Admin: 08/25/17 09:18 Dose: 1 puff Physical Examination Vital Signs Period Temp Pulse Resp BP Sys/Gates Pulse Ox Last 24 Hr 97.8 F-98.3 F 67-85 18-21 133-148/80-83 96 Constitutional: Yes: Calm, Mild Distress, Obese Eyes: Yes: WNL, Conjunctiva Clear, EOM Intact, PERRL HENT: Yes: WNL, Atraumatic, Normocephalic Neck: Yes: Supple, Other (Trach w/closed button) Cardiovascular: Yes: Regular Rate and Rhythm, S1, S2 Respiratory: Yes: Diminished, On Nasal O2, Rhonchi, SOB, Wheezes Gastrointestinal: Yes: Soft, Abdomen, Obese, Hypoactive Bowel Sounds, Tenderness (generalized), Other (hernia) ...Rectal Exam: Yes: Deferred Renal/: Yes: WNL Breast(s): Yes: WNL Musculoskeletal: Yes: Back Pain Extremities: Yes: WNL Edema: No Peripheral Pulses WNL: Yes Integumentary: Yes: WNL Neurological: CN intact, no facial droop, no slurred speech, moves all extremities grossly but limited in confrontation testing, sensory intact, rolling walker at bedside for ambulation CBCD WBC 10.6 K/mm3 (4.0-10.0) H 08/26/17 07:30 RBC 4.35 M/mm3 (4.00-5.60) 08/26/17 07:30 Hgb 11.4 GM/dL (11.7-16.9) L 08/26/17 07:30 Hct 35.4 % (35.4-49) 08/26/17 07:30 MCV 81.4 fl (80-96) 08/26/17 07:30 MCHC 32.1 g/dl (32.0-35.9) 08/26/17 07:30 RDW 14.4 % (11.9-15.9) 08/26/17 07:30 Plt Count 347 K/MM3 (134-434) 08/26/17 07:30 MPV 6.7 fl (7.5-11.1) L 08/26/17 07:30 CMP Sodium 141 mmol/L (136-145) 08/26/17 07:30 Potassium 3.6 mmol/L (3.5-5.1) 08/26/17 07:30 Chloride 107 mmol/L (98-107) 08/26/17 07:30 Carbon Dioxide 26 mmol/L (21-32) 08/26/17 07:30 Anion Gap 8 (8-16) 08/26/17 07:30 BUN 4 mg/dL (7-18) L 08/26/17 07:30 Creatinine 0.9 mg/dL (0.7-1.3) 08/26/17 07:30 Creat Clearance w eGFR > 60 (>60) 08/26/17 07:30 Calcium 8.5 mg/dL (8.5-10.1) 08/26/17 07:30 Total Bilirubin 0.6 mg/dL (0.2-1.0) D 08/26/17 07:30 AST 43 U/L (15-37) H 08/26/17 07:30 ALT 59 U/L (12-78) 08/26/17 07:30 Alkaline Phosphatase 92 U/L (45-117) 08/26/17 07:30 Total Protein 5.9 g/dl (6.4-8.2) L 08/26/17 07:30 Albumin 3.2 g/dl (3.4-5.0) L 08/26/17 07:30 MRI L spine completed, awaiting official read Problem List 61 y/o man with a significant medical history of HTN, HLD, CAD s/p [place]- 6 stents , DM, Chronic Pancreatitis, Chronic Cervical/Lumbar Pain who presented to the ED with abdominal pain x 4 weeks, CP, SOB and palpitations x today. Patient reports having N/D- constipation, productive cough with green phlegm. Placed on Augmentin and Cipro for a cough week prior to admission, with poor compliance secondary to abdominal pain. Patient previously seeing Dr. Singh with flank/ back pain. L spine MRI images reviewed, multilevel DDD and stenosis noted. Unclear if changed from prior. Remains on pain medication. If singificant changes, may benefit from NSGY input. If stable then would consider pain mgmt. Monitor for sedation, caution with opioids in conjunction with gabapentin which is also increased dose. Continue rolling walker, physical therapy. Fall precautions.
[2017-08-26] MEDS: POLYETHYLENE GLYCOL 3350 119 GM BTL PO SCH (10:03)
[2017-08-26] MEDS: ASPIRIN COATED 81 MG TABLET.EC PO SCH (10:03)
[2017-08-26] MEDS: FINASTERIDE 5 MG TABLET (FP) PO SCH (10:03)
[2017-08-26] MEDS: GABAPENTIN 300 MG CAPSULE (FP) PO SCH (10:03)
[2017-08-26] MEDS: PANTOPRAZOLE 40 MG TABLET (FP) PO SCH (10:04)
[2017-08-26] MEDS: EZETIMIBE 10 MG TABLET (FP) PO SCH (10:04)
[2017-08-26] MEDS: RAMIPRIL 5 MG CAPSULE (FP) PO SCH (11:15)
[2017-08-26] MEDS: amLODIPine BESYLATE 2.5 MG TABLET (FP) PO SCH (11:16)
--- NOTE | 2017-08-26 11:50 | PN ---
Progress Note, Physician Chief Complaint: Pneumonia, Hematuria, Umbilical hernia History of Present Illness: for surgical repair of umbilical hernia NAD, sitting in bed, complaining of right Lumbar pain. Started on Dilaudid HCS: 06/15/2017 06/16/2017 nucynta er 150 mg tablet 60 30 Xavier Prince MD 06/15/2017 06/16/2017 hydromorphone 4 mg tablet 120 30 Xavier Prince MD 06/15/2017 06/16/2017 oxycodone-acetaminophen 10-325 mg tab 180 23Xavier Prince MD 04/06/2017 04/24/2017 testosterone 30 mg/1.5 ml pump 90ml 30 Murali Gustafson MD 04/06/2017 04/06/2017 diazepam 5 mg tablet 14 14 Murali Gustafson MD 02/22/2017 02/22/2017 zolpidem tart er 6.25 mg tab 10 10 Markus Knox MD 02/22/2017 02/22/2017 diazepam 10 mg tablet 20 10 Markus Knox MD 12/31/2016 01/16/2017 hydromorphone 4 mg tablet 120 30 Xavier Prince MD 12/31/2016 01/07/2017 nucynta er 150 mg tablet 60 30 Xavier Prince MD 12/31/2016 01/07/2017 oxycodone-acetaminophen 7.5-325 mg tablet 180 22 Xavier Prince MD 10/13/2016 10/14/2016 nucynta er 150 mg tablet 60 30 Xavier Prince MD 10/13/2016 10/14/2016 hydromorphone 4 mg tablet 120 30 Xavier Prince MD 10/13/2016 10/14/2016 oxycodone-acetaminophen 7.5-325 mg tablet 138 23 Xavier Prince MD 06/26/2016 09/08/2016 tramadol hcl er 100 mg tablet 30 30 Kadie Singh MD 08/17/2016 09/08/2016 codeine-guaifen 10-100 mg/5 ml 150ml 5 Markus Knox MD - Current Medication List Current Medications: Active Medications Albuterol/Ipratropium (Duoneb -) 1 amp NEB Q6H PRN PRN Reason: SHORTNESS OF BREATH Last Admin: 08/26/17 08:22 Dose: 1 amp Amlodipine Besylate (Norvasc -) 5 mg PO DAILY [facility] Last Admin: 08/26/17 11:16 Dose: 5 mg Aspirin (Ecotrin -) 81 mg PO DAILY [facility] Last Admin: 08/26/17 10:03 Dose: Not Given Budesonide/Formoterol Fumarate (Symbicort 160/4.5mcg -) 1 puff IH BID [facility] Last Admin: 08/25/17 21:55 Dose: 1 puff Ezetimibe (Zetia -) 10 mg PO DAILY [facility] Last Admin: 08/26/17 10:04 Dose: Not Given Finasteride (Proscar -) 5 mg PO DAILY [facility] Last Admin: 08/26/17 10:03 Dose: Not Given Gabapentin (Neurontin -) 600 mg PO DAILY [facility] Last Admin: 08/26/17 10:03 Dose: Not Given Gabapentin (Neurontin -) 800 mg PO [facility] Last Admin: 08/25/17 21:53 Dose: 800 mg Hydromorphone HCl (Dilaudid Injection -) 4 mg IVPB Q4H PRN PRN Reason: PAIN LEVEL 7 - 10 Last Admin: 08/26/17 09:15 Dose: 4 mg Sodium Chloride (Normal Saline -) 1,000 mls @ 75 mls/hr IV ASDIR [facility] Last Admin: 08/26/17 00:27 Dose: 75 mls/hr Insulin Aspart (Novolog Vial Sliding Scale -) 1 vial SQ ACHS [facility] PRN Reason: Protocol Last Admin: 08/26/17 06:32 Dose: Not Given Montelukast Sodium (Singulair -) 10 mg PO HS [facility] Last Admin: 08/25/17 21:55 Dose: 10 mg Pancrelipase (Creon Dr 36,000 Units Capsule) 1 cap PO TIDCM [facility] Last Admin: 08/26/17 08:17 Dose: Not Given Pantoprazole Sodium (Protonix -) 40 mg PO DAILY [facility] Last Admin: 08/26/17 10:04 Dose: Not Given Polyethylene Glycol (Miralax (For Daily Use) -) 17 gm PO DAILY [facility] Last Admin: 08/26/17 10:03 Dose: Not Given Ramipril (Altace -) 20 mg PO DAILY [facility] Last Admin: 08/26/17 11:15 Dose: 20 mg Rosuvastatin Calcium (Crestor -) 10 mg PO HS [facility] Last Admin: 08/25/17 21:53 Dose: 10 mg Tamsulosin HCl (Flomax -) 0.4 mg PO DAILY@0830 [facility] Last Admin: 08/26/17 08:17 Dose: Not Given Tiotropium [place] (Spiriva -) 1 puff IH DAILY [facility] Last Admin: 08/25/17 09:18 Dose: 1 puff - Objective Vital Signs: Vital Signs Temperature 98.3 F 08/26/17 05:30 Pulse Rate 67 08/26/17 05:30 Respiratory Rate 18 08/26/17 05:30 Blood Pressure 148/80 08/26/17 05:30 O2 Sat by Pulse Oximetry (%) 96 08/25/17 21:00 Constitutional: Yes: Well Nourished, No Distress, Calm Cardiovascular: Yes: Regular Rate and Rhythm Respiratory: Yes: Regular Gastrointestinal: Yes: Normal Bowel Sounds, Soft, Hernia (umbilical) Musculoskeletal: Yes: WNL Extremities: Yes: WNL Edema: No Peripheral Pulses WNL: Yes Neurological: Yes: Alert, Oriented Psychiatric: Yes: Alert, Oriented Labs: CBC, BMP 08/26/17 07:30 08/26/17 07:30 INR, PTT INR 1.22 (0.82-1.09) H 08/21/17 06:55 Problem List - Problems (1) Hematuria Assessment/Plan: -seen by Urology -UA +3 blood -UC negative -has BPH, on tamsulosin and finestride -CT abdomen/pelvis pending -H/H stable -urine clear now Code(s): R31.9 - HEMATURIA, UNSPECIFIED (2) Pneumonia Assessment/Plan: -seen by ID -resolved -seen by pulmonary -bronchodilators -afebrile Code(s): J18.9 - PNEUMONIA, UNSPECIFIED ORGANISM Qualifiers: Pneumonia type: due to unspecified organism Laterality: right Lung location: unspecified part of lung Qualified Code(s): J18.9 - Pneumonia, unspecified organism (3) Umbilical hernia Assessment/Plan: -seen by GI surgery Code(s): K42.9 - UMBILICAL HERNIA WITHOUT OBSTRUCTION OR GANGRENE Qualifiers: Obstruction and gangrene presence: without obstruction or gangrene Qualified Code(s): K42.9 - Umbilical hernia without obstruction or gangrene (4) ASHD (arteriosclerotic heart disease) Assessment/Plan: -seen by Cardiology Code(s): I25.10 - ATHSCL HEART DISEASE OF [place] CORONARY ARTERY W/O ANG PCTRS Assessment/Plan see problem list
--- NOTE | 2017-08-26 12:43 | PN ---
Progress Note, Physician History of Present Illness: Await umbilical hernia repair, anesthesia strategy has been formulated regarding chronic trach. Hematuria resolved. - Current Medication List Current Medications: Active Medications Albuterol/Ipratropium (Duoneb -) 1 amp NEB Q6H PRN PRN Reason: SHORTNESS OF BREATH Last Admin: 08/26/17 08:22 Dose: 1 amp Amlodipine Besylate (Norvasc -) 5 mg PO DAILY [facility] Last Admin: 08/26/17 11:16 Dose: 5 mg Aspirin (Ecotrin -) 81 mg PO DAILY [facility] Last Admin: 08/26/17 10:03 Dose: Not Given Budesonide/Formoterol Fumarate (Symbicort 160/4.5mcg -) 1 puff IH BID [facility] Last Admin: 08/25/17 21:55 Dose: 1 puff Ezetimibe (Zetia -) 10 mg PO DAILY [facility] Last Admin: 08/26/17 10:04 Dose: Not Given Finasteride (Proscar -) 5 mg PO DAILY [facility] Last Admin: 08/26/17 10:03 Dose: Not Given Gabapentin (Neurontin -) 600 mg PO DAILY [facility] Last Admin: 08/26/17 10:03 Dose: Not Given Gabapentin (Neurontin -) 800 mg PO HS [facility] Last Admin: 08/25/17 21:53 Dose: 800 mg Hydromorphone HCl (Dilaudid Injection -) 4 mg IVPB Q4H PRN PRN Reason: PAIN LEVEL 7 - 10 Last Admin: 08/26/17 09:15 Dose: 4 mg Sodium Chloride (Normal Saline -) 1,000 mls @ 75 mls/hr IV ASDIR [facility] Last Admin: 08/26/17 00:27 Dose: 75 mls/hr Insulin Aspart (Novolog Vial Sliding Scale -) 1 vial SQ ACHS [facility] PRN Reason: Protocol Last Admin: 08/26/17 06:32 Dose: Not Given Montelukast Sodium (Singulair -) 10 mg PO HS [facility] Last Admin: 08/25/17 21:55 Dose: 10 mg Pancrelipase (Creon Dr 36,000 Units Capsule) 1 cap PO TIDCM [facility] Last Admin: 08/26/17 08:17 Dose: Not Given Pantoprazole Sodium (Protonix -) 40 mg PO DAILY [facility] Last Admin: 08/26/17 10:04 Dose: Not Given Polyethylene Glycol (Miralax (For Daily Use) -) 17 gm PO DAILY [facility] Last Admin: 08/26/17 10:03 Dose: Not Given Ramipril (Altace -) 20 mg PO DAILY [facility] Last Admin: 08/26/17 11:15 Dose: 20 mg Rosuvastatin Calcium (Crestor -) 10 mg PO HS [facility] Last Admin: 08/25/17 21:53 Dose: 10 mg Tamsulosin HCl (Flomax -) 0.4 mg PO DAILY@0830 [facility] Last Admin: 08/26/17 08:17 Dose: Not Given Tiotropium [place] (Spiriva -) 1 puff IH DAILY [facility] Last Admin: 08/25/17 09:18 Dose: 1 puff - Objective Vital Signs: Vital Signs Temperature 98.3 F 08/26/17 05:30 Pulse Rate 67 08/26/17 05:30 Respiratory Rate 18 08/26/17 05:30 Blood Pressure 148/80 08/26/17 05:30 O2 Sat by Pulse Oximetry (%) 96 08/25/17 21:00 Constitutional: Yes: No Distress, Calm Neck: Yes: Supple Cardiovascular: Yes: Regular Rate and Rhythm Respiratory: Yes: Regular, Diminished Gastrointestinal: Yes: Soft, Abdomen, Obese, Palpable Mass (Umbilical hernia) Edema: No Labs: CBC, BMP 08/26/17 07:30 08/26/17 07:30 INR, PTT INR 1.22 (0.82-1.09) H 08/21/17 06:55 - ....Imaging MRI: Report Reviewed (L5-S1 lumbosacral radiculopathy) Problem List - Problems (1) Chest pain Code(s): R07.9 - CHEST PAIN, UNSPECIFIED Qualifiers: Chest pain type: unspecified Qualified Code(s): R07.9 - Chest pain, unspecified (2) Chronic pancreatitis Code(s): K86.1 - OTHER CHRONIC PANCREATITIS Qualifiers: Pancreatitis type: unspecified pancreatitis type Qualified Code(s): K86.1 - Other chronic pancreatitis (3) Abdominal pain Code(s): R10.9 - UNSPECIFIED ABDOMINAL PAIN Qualifiers: Abdominal location: upper abdomen, unspecified Qualified Code(s): R10.10 - Upper abdominal pain, unspecified (4) Asthma Code(s): J45.909 - UNSPECIFIED ASTHMA, UNCOMPLICATED Qualifiers: Asthma severity: unspecified severity (5) COPD (chronic obstructive pulmonary disease) Code(s): J44.9 - CHRONIC OBSTRUCTIVE PULMONARY DISEASE, UNSPECIFIED (6) Chronic diastolic (congestive) heart failure Code(s): I50.32 - CHRONIC DIASTOLIC (CONGESTIVE) HEART FAILURE (7) Coronary artery disease Code(s): I25.10 - ATHSCL HEART DISEASE OF [place] CORONARY ARTERY W/O ANG PCTRS (8) Diabetes mellitus Code(s): E11.9 - TYPE 2 DIABETES MELLITUS WITHOUT COMPLICATIONS Qualifiers: Diabetes mellitus type: type 2 Diabetes mellitus complication detail: with unspecified neuropathy (9) Esophagitis determined by endoscopy Code(s): K20.9 - ESOPHAGITIS, UNSPECIFIED (10) Hyperlipidemia Code(s): E78.5 - HYPERLIPIDEMIA, UNSPECIFIED (11) Hypertension Code(s): I10 - ESSENTIAL (PRIMARY) HYPERTENSION Qualifiers: Hypertension type: essential hypertension Qualified Code(s): I10 - Essential (primary) hypertension (12) Hypertension associated with diabetes Code(s): E11.59 - TYPE 2 DIABETES MELLITUS WITH OTH CIRCULATORY COMPLICATIONS; I10 - ESSENTIAL (PRIMARY) HYPERTENSION (13) IPMN (intraductal papillary mucinous neoplasm) Code(s): D49.0 - NEOPLASM OF UNSPECIFIED BEHAVIOR OF DIGESTIVE SYSTEM (14) Myocardial infarct Code(s): I21.3 - ST ELEVATION (STEMI) MYOCARDIAL INFARCTION OF UNSP SITE (15) GRACIE (obstructive sleep apnea) Code(s): G47.33 - OBSTRUCTIVE SLEEP APNEA (ADULT) (PEDIATRIC) (16) Type 2 diabetes mellitus with diabetic neuropathy Code(s): E11.40 - TYPE 2 DIABETES MELLITUS WITH DIABETIC NEUROPATHY, UNSP (17) Renal calculus, left Code(s): N20.0 - CALCULUS OF KIDNEY (18) Umbilical hernia Code(s): K42.9 - UMBILICAL HERNIA WITHOUT OBSTRUCTION OR GANGRENE Qualifiers: Obstruction and gangrene presence: without obstruction or gangrene Qualified Code(s): K42.9 - Umbilical hernia without obstruction or gangrene (19) S/P lumbar spinal fusion Code(s): Z98.1 - ARTHRODESIS STATUS (20) Tracheostomy in place Code(s): Z98.89 - OTHER SPECIFIED POSTPROCEDURAL STATES * DO NOT USE * Assessment/Plan 1. Pre-operative cardiovascular evaluation prior to umbilical hernia repair 2. Chronic pancreatitis and esophagitis 3. Chronic atypical chest pain 4. CAD s/p ID, post PCI (stents), angina pectoris 6. HTN/HCVD 5. Hyperlipidemia 6. Diastolic dysfunction and pulmonary HTN 7. OSAS 8. COPD/Asthma 9. Acute on CKD resolving 10. Hematuria with left non-obstructive calculus resolving 11. L5-S1 lumbosacral radiculopathy PLAN: 1. Continue current medical therapy and tentatively surgery scheduled for as per surgery service 2. Bronchodilator, O2 as needed and empiric antibiotic coverage 3. Given absence of symptoms of acute ischemic symptoms, decompensated CHF or malignant arrhythmia and most recent stress testing 07/16/2016 showing inferior infarct with [id number] ischemia, may proceed with surgery from cardiovascular standpoint without further testing. Plavix has been stopped and continue ASA 81 mg daily rosamaria-operatively and to renew Plavix once post-op hemostasis has been achieved.
[2017-08-26] MEDS ORDERED: ACETAMINOPHEN 325 MG TABLET (FP) PO ONE (13:00)
[2017-08-26] MEDS ORDERED: PT OWN MED DRAWER 7, Y5N ONE ×2 (13:00→22:59)
[2017-08-26] MEDS: BUDESONIDE/FORMETEROL FUMARATE 160/4.5 mcg INHALER IH SCH ×2 (13:04→23:01)
[2017-08-26] MEDS: TIOTROPIUM BROMIDE 18 MCG/INH (DEVICE W/ 5 CAPSULES) IH SCH (13:04)
[2017-08-26] MEDS ORDERED: LORazepam 2 MG/ML SDV VIAL IVPUSH ONE (16:30)
[2017-08-26] MEDS ORDERED: MIDAZOLAM HCL 2 MG/2 ML SINGLE DOSE VIAL ONE ×3 (19:12→19:53)
[2017-08-26] MEDS ORDERED: LIDOCAINE 1%/EPI 1:100000 (20 ML MULTI DOSE VIAL) ONE (19:12)
[2017-08-26] MEDS ORDERED: PROPOFOL 20 ML ONE (19:15)
[2017-08-26] MEDS ORDERED: SUCCINYLCHOLINE CHLORIDE 200 MG/10 ML VIAL ONE (19:15)
[2017-08-26] MEDS ORDERED: LIDOCAINE HCL/PF 2% SDV 5ML VIAL ONE (19:17)
[2017-08-26] MEDS ORDERED: ceFAZolin SODIUM 1 GM VIAL IVPB ONE (20:26)
[2017-08-26] MEDS ORDERED: ceFAZolin SODIUM 1 GM VIAL ONE (20:26)
[2017-08-26] MEDS ORDERED: LIDOCAINE 1%/EPI 1:100000 (20 ML MULTI DOSE VIAL) IJ ONE ×3 (20:34)
--- NOTE | 2017-08-26 21:18 | OP ---
Operative Note - Note: Operative Date: 08/26/17 Pre-Operative Diagnosis: Incarcerated umbilical hernia Operation: OPen repair of incarcerated umbilical hernia, lysis of adhesions, omentectomy Post-Operative Diagnosis: Other (Incarcerated umbilical hernia, intraabdominal adhesions) Surgeon: Mateusz Cabrera Travel Manager: Jose Enrique Garcia Anesthesia: Spinal, Local Specimens Removed: Omentum Estimated Blood Loss (mls): 5 Operative Report Dictated: Yes
[2017-08-26] MEDS: GABAPENTIN 400 MG CAPSULE (FP) PO SCH (23:01)
[2017-08-26] MEDS: MONTELUKAST NA 10 MG TABLET PO SCH (23:01)
[2017-08-26] MEDS: ROSUVASTATIN CA 10 MG TABLET (FP) PO SCH (23:02)
[2017-08-27] MEDS: HYDROmorphone HCL CARPU-JECT 4 MG/1 ML DISP.SYRIN IVPB PRN ×5 (05:55→22:51)
[2017-08-27] MEDS: INSULIN SLIDING SCALE (NOVOLOG) 1 VIAL SQ SCH ×4 (06:02→22:55)
[2017-08-27] MEDS ORDERED: PT OWN MED DRAWER 7, Y5N ONE ×2 (06:23→08:09)
[2017-08-27 07:48] LABS: BASO % 0.5 % (0-2.0); EOS % 0.8 % (0-4.5); HEMATOCRIT 33.2 % (35.4-49); HEMOGLOBIN 10.5 GM/dL (11.7-16.9); MCH 25.8 pg (25.7-33.7); MCHC 31.8 g/dl (32.0-35.9); MEAN CELL VOLUME 81.2 fl (80-96); MEAN PLT VOLUME 7.1 fl (7.5-11.1); MONO % 10.5 % (3.8-10.2); NEUT % 61.2 % (42.8-82.8); PLATELET COUNT 355 K/MM3 (134-434); RBC 4.09 M/mm3 (4.00-5.60); RDW 14.5 % (11.9-15.9); WHITE BLOOD COUNT 12.3 K/mm3 (4.0-10.0)
[2017-08-27] MEDS: LIPASE/PROTEASE/AMYLASE 36,000 UNIT CAPSULE PO SCH ×3 (08:11→17:31)
[2017-08-27] MEDS: TAMSULOSIN HCL 0.4 MG CAP.ER.24H (FP) PO SCH (08:11)
[2017-08-27] MEDS: ALBUTEROL SO4 2.5/IPRATROPIUM 0.5 INH SOL 3 ML VIAL.NEB. NEB PRN ×3 (08:54→20:29)
--- NOTE | 2017-08-27 09:03 | OP ---
DATE OF OPERATION: 08/26/2017 SURGEON: Mane Cabrera MD OPERATIONS LIEUTENANT: Jose Enrique Garcia MD PREOPERATIVE DIAGNOSIS: Incarcerated umbilical hernia. POSTOPERATIVE DIAGNOSIS: Incarcerated umbilical hernia, intraabdominal adhesions. PROCEDURE: 1. Open repair of incarcerated umbilical hernia. 2. Lysis of adhesions. 3. Omentectomy. SPECIMEN: Omentum. ESTIMATED BLOOD LOSS: 5 mL DRAINS: None. ANESTHESIA: Spinal/local. REASON FOR PROCEDURE: This 61-year-old gentleman presented to the hospital. He was consulted for abdominal pain and was noted to have an incarcerated umbilical hernia. After being cleared by the respective medical specialties, he was consented for an open umbilical hernia repair with possible mesh. The risks and benefits of the procedure were explained. These included bleeding; infection; recurrence of hernia; NE; DVT; PE; injury to surrounding structures including bowel, colon, stomach; vessel injury; nerve injury; persistent pain; fascial dehiscence as some of the complications. He understood and signed informed consent. DESCRIPTION OF PROCEDURE: Patient was placed supine on the operating room table. After undergoing spinal anesthesia, the abdomen was prepped and draped in usual sterile fashion. Timeout was performed. A periumbilical incision was made at the inferior aspect of the umbilicus. The skin and subcutaneous tissue were dissected. Incarcerated content was immediately noted. This was carefully dissected free. The hernia sac was grasped and dissected down to the level of the fascia. Incarcerated omental content was noted within the hernia sac. The fascia was cleared circumferentially. Part of the omentum had to be removed because of inability to reduce. Brenda clamps were applied to this portion of the omentum, and the omentum was transected at these levels. Next, 0 silk sutures were used to tie off the omentum at these levels. In addition, there were noted to be intraabdominal adhesions. These needed to be lysed in order to free the fascia from all intraabdominal content including bowel. Once all the adhesions were lysed and the fascia was noted to be free circumferentially, the fascia was closed using a 0 Prolene stitch in figure-of-8 fashion x2. The hernia defect was noted to be fully closed. Next, 3-0 Vicryl suture was used to close the deep subcutaneous tissue and dermal layers as well as to tack the umbilicus down to the level of the fascia, and 4-0 Biosyn was used to close the skin. Sterile dressing was applied. The patient tolerated the procedure well, was transferred to recovery room in stable condition. MANE CABRERA M.D. [id number]
[2017-08-27] MEDS: POLYETHYLENE GLYCOL 3350 119 GM BTL PO SCH (09:27)
[2017-08-27] MEDS: ASPIRIN COATED 81 MG TABLET.EC PO SCH (09:27)
[2017-08-27] MEDS: RAMIPRIL 5 MG CAPSULE (FP) PO SCH (09:27)
[2017-08-27] MEDS: GABAPENTIN 300 MG CAPSULE (FP) PO SCH (09:28)
[2017-08-27] MEDS: FINASTERIDE 5 MG TABLET (FP) PO SCH (09:28)
[2017-08-27] MEDS: EZETIMIBE 10 MG TABLET (FP) PO SCH (09:29)
[2017-08-27] MEDS: PANTOPRAZOLE 40 MG TABLET (FP) PO SCH (09:29)
[2017-08-27] MEDS: amLODIPine BESYLATE 2.5 MG TABLET (FP) PO SCH (09:29)
[2017-08-27] MEDS: BUDESONIDE/FORMETEROL FUMARATE 160/4.5 mcg INHALER IH SCH ×2 (09:30→22:45)
[2017-08-27] MEDS: TIOTROPIUM BROMIDE 18 MCG/INH (DEVICE W/ 5 CAPSULES) IH SCH (09:33)
--- NOTE | 2017-08-27 10:11 | PN ---
Progress Note, Physician History of Present Illness: Underwent open repair of incarcerated umbilical hernia, lysis of adhesions, omentectomy, reports incisional discomfort, hematuria resolved. - Current Medication List Current Medications: Active Medications Albuterol/Ipratropium (Duoneb -) 1 amp NEB Q6H PRN PRN Reason: SHORTNESS OF BREATH Last Admin: 08/27/17 08:54 Dose: 1 amp Amlodipine Besylate (Norvasc -) 5 mg PO DAILY [facility] Last Admin: 08/27/17 09:29 Dose: 5 mg Aspirin (Ecotrin -) 81 mg PO DAILY [facility] Last Admin: 08/27/17 09:27 Dose: 81 mg Budesonide/Formoterol Fumarate (Symbicort 160/4.5mcg -) 1 puff IH BID [facility] Last Admin: 08/27/17 09:30 Dose: 1 puff Ezetimibe (Zetia -) 10 mg PO DAILY [facility] Last Admin: 08/27/17 09:29 Dose: 10 mg Fentanyl (Sublimaze Injection -) 25 mcg IVPUSH [id number] PRN PRN Reason: PAIN-PACU ORDER X 4 DOSES ONLY Finasteride (Proscar -) 5 mg PO DAILY [facility] Last Admin: 08/27/17 09:28 Dose: 5 mg Gabapentin (Neurontin -) 600 mg PO DAILY [facility] Last Admin: 08/27/17 09:28 Dose: 600 mg Gabapentin (Neurontin -) 800 mg PO HS [facility] Last Admin: 08/26/17 23:01 Dose: 800 mg Hydromorphone HCl (Dilaudid Injection -) 4 mg IVPB Q4H PRN PRN Reason: PAIN LEVEL 7 - 10 Last Admin: 08/27/17 10:03 Dose: 4 mg Sodium Chloride (Normal Saline -) 1,000 mls @ 75 mls/hr IV ASDIR [facility] Last Admin: 08/26/17 16:31 Dose: 75 mls/hr Insulin Aspart (Novolog Vial Sliding Scale -) 1 vial SQ ACHS [facility] PRN Reason: Protocol Last Admin: 08/27/17 06:02 Dose: 2 units Montelukast Sodium (Singulair -) 10 mg PO HS [facility] Last Admin: 08/26/17 23:01 Dose: 10 mg Pancrelipase (Creon Dr 36,000 Units Capsule) 1 cap PO TIDCM [facility] Last Admin: 08/27/17 08:11 Dose: 1 cap Pantoprazole Sodium (Protonix -) 40 mg PO DAILY [facility] Last Admin: 08/27/17 09:29 Dose: 40 mg Polyethylene Glycol (Miralax (For Daily Use) -) 17 gm PO DAILY [facility] Last Admin: 08/27/17 09:27 Dose: 17 grams Ramipril (Altace -) 20 mg PO DAILY [facility] Last Admin: 08/27/17 09:27 Dose: 20 mg Rosuvastatin Calcium (Crestor -) 10 mg PO HS [facility] Last Admin: 08/26/17 23:02 Dose: 10 mg Tamsulosin HCl (Flomax -) 0.4 mg PO DAILY@0830 [facility] Last Admin: 08/27/17 08:11 Dose: 0.4 mg Tiotropium [place] (Spiriva -) 1 puff IH DAILY [facility] Last Admin: 08/27/17 09:33 Dose: 1 puff - Objective Vital Signs: Vital Signs Temperature 98.6 F 08/27/17 06:00 Pulse Rate 92 H 08/27/17 06:00 Respiratory Rate 18 08/27/17 06:00 Blood Pressure 148/78 08/27/17 06:00 O2 Sat by Pulse Oximetry (%) 98 08/26/17 22:45 Constitutional: Yes: No Distress, Calm Neck: Yes: Supple Cardiovascular: Yes: Regular Rate and Rhythm Respiratory: Yes: Regular, Diminished Gastrointestinal: Yes: Soft, Hypoactive Bowel Sounds, Tenderness Edema: No Labs: CBC, BMP 08/27/17 06:30 08/26/17 07:30 INR, PTT INR 1.22 (0.82-1.09) H 08/21/17 06:55 Problem List - Problems (1) Chest pain Code(s): R07.9 - CHEST PAIN, UNSPECIFIED Qualifiers: Chest pain type: unspecified Qualified Code(s): R07.9 - Chest pain, unspecified (2) Chronic pancreatitis Code(s): K86.1 - OTHER CHRONIC PANCREATITIS Qualifiers: Pancreatitis type: unspecified pancreatitis type Qualified Code(s): K86.1 - Other chronic pancreatitis (3) Abdominal pain Code(s): R10.9 - UNSPECIFIED ABDOMINAL PAIN Qualifiers: Abdominal location: upper abdomen, unspecified Qualified Code(s): R10.10 - Upper abdominal pain, unspecified (4) Asthma Code(s): J45.909 - UNSPECIFIED ASTHMA, UNCOMPLICATED Qualifiers: Asthma severity: unspecified severity (5) COPD (chronic obstructive pulmonary disease) Code(s): J44.9 - CHRONIC OBSTRUCTIVE PULMONARY DISEASE, UNSPECIFIED (6) Chronic diastolic (congestive) heart failure Code(s): I50.32 - CHRONIC DIASTOLIC (CONGESTIVE) HEART FAILURE (7) Coronary artery disease Code(s): I25.10 - ATHSCL HEART DISEASE OF [place] CORONARY ARTERY W/O ANG PCTRS (8) Diabetes mellitus Code(s): E11.9 - TYPE 2 DIABETES MELLITUS WITHOUT COMPLICATIONS Qualifiers: Diabetes mellitus type: type 2 Diabetes mellitus complication detail: with unspecified neuropathy (9) Esophagitis determined by endoscopy Code(s): K20.9 - ESOPHAGITIS, UNSPECIFIED (10) Hyperlipidemia Code(s): E78.5 - HYPERLIPIDEMIA, UNSPECIFIED (11) Hypertension Code(s): I10 - ESSENTIAL (PRIMARY) HYPERTENSION Qualifiers: Hypertension type: essential hypertension Qualified Code(s): I10 - Essential (primary) hypertension (12) Hypertension associated with diabetes Code(s): E11.59 - TYPE 2 DIABETES MELLITUS WITH OTH CIRCULATORY COMPLICATIONS; I10 - ESSENTIAL (PRIMARY) HYPERTENSION (13) IPMN (intraductal papillary mucinous neoplasm) Code(s): D49.0 - NEOPLASM OF UNSPECIFIED BEHAVIOR OF DIGESTIVE SYSTEM (14) Myocardial infarct Code(s): I21.3 - ST ELEVATION (STEMI) MYOCARDIAL INFARCTION OF UNSP SITE (15) GRACIE (obstructive sleep apnea) Code(s): G47.33 - OBSTRUCTIVE SLEEP APNEA (ADULT) (PEDIATRIC) (16) Type 2 diabetes mellitus with diabetic neuropathy Code(s): E11.40 - TYPE 2 DIABETES MELLITUS WITH DIABETIC NEUROPATHY, UNSP (17) Renal calculus, left Code(s): N20.0 - CALCULUS OF KIDNEY (18) Umbilical hernia Code(s): K42.9 - UMBILICAL HERNIA WITHOUT OBSTRUCTION OR GANGRENE Qualifiers: Obstruction and gangrene presence: without obstruction or gangrene Qualified Code(s): K42.9 - Umbilical hernia without obstruction or gangrene (19) S/P lumbar spinal fusion Code(s): Z98.1 - ARTHRODESIS STATUS (20) Tracheostomy in place Code(s): Z98.89 - OTHER SPECIFIED POSTPROCEDURAL STATES * DO NOT USE * (21) H/O umbilical hernia repair Code(s): Z98.890 - OTHER SPECIFIED POSTPROCEDURAL STATES; Z87.19 - PERSONAL HISTORY OF OTHER DISEASES OF THE DIGESTIVE SYSTEM Assessment/Plan 1. POD #1 Open repair of incarcerated umbilical hernia, lysis of adhesions, omentectomy 2. Chronic pancreatitis and esophagitis 3. Chronic atypical chest pain 4. CAD s/p [place], post PCI (stents), angina pectoris 6. HTN/HCVD 5. Hyperlipidemia 6. Diastolic dysfunction and pulmonary HTN 7. OSAS 8. COPD/Asthma 9. Acute on CKD resolving 10. Hematuria with left non-obstructive calculus resolving 11. L5-S1 lumbosacral radiculopathy PLAN: 1. Bronchodilator, O2 as needed and empiric antibiotic coverage 2. Continue ASA and resume Plavix once post-op hemostasis achieved. Continue Norvasc 5 qd, Zetia 10 qd, Altace 20 qd, and Crestor 10 qhs 3. DVT and GI prophylaxis
--- NOTE | 2017-08-27 10:57 | PN ---
Progress Note, Physician Chief Complaint: Pneumonia, Hematuria, Umbilical hernia History of Present Illness: POD #1 surgical repair of umbilical hernia NAD, sitting in bed, complaining of right Lumbar pain. Started on Dilaudid HCS: 06/15/2017 06/16/2017 nucynta er 150 mg tablet 60 30 Xavier Prince MD 06/15/2017 06/16/2017 hydromorphone 4 mg tablet 120 30 Xavier Prince MD 06/15/2017 06/16/2017 oxycodone-acetaminophen 10-325 mg tab 180 23Xavier Prince MD 04/06/2017 04/24/2017 testosterone 30 mg/1.5 ml pump 90ml 30 Murali Gustafson MD 04/06/2017 04/06/2017 diazepam 5 mg tablet 14 14 Murali Gustafson MD 02/22/2017 02/22/2017 zolpidem tart er 6.25 mg tab 10 10 Markus Knox MD 02/22/2017 02/22/2017 diazepam 10 mg tablet 20 10 Markus Knox MD 12/31/2016 01/16/2017 hydromorphone 4 mg tablet 120 30 Xavier Prince MD 12/31/2016 01/07/2017 nucynta er 150 mg tablet 60 30 Xavier Prince MD 12/31/2016 01/07/2017 oxycodone-acetaminophen 7.5-325 mg tablet 180 22 Xavier Prince MD 10/13/2016 10/14/2016 nucynta er 150 mg tablet 60 30 Xavier Prince MD 10/13/2016 10/14/2016 hydromorphone 4 mg tablet 120 30 Xavier Prince MD 10/13/2016 10/14/2016 oxycodone-acetaminophen 7.5-325 mg tablet 138 23 Xavier Prince MD 06/26/2016 09/08/2016 tramadol hcl er 100 mg tablet 30 30 Kadie Singh MD 08/17/2016 09/08/2016 codeine-guaifen 10-100 mg/5 ml 150ml 5 Markus Knox MD Awaiting CT abd/pelvis MRI lumbar spine reviewed seen by Neurosurgery complaining of pain at the surgical site tolerated clear liquids with some nausea, No Vomiting - Current Medication List Current Medications: Active Medications Albuterol/Ipratropium (Duoneb -) 1 amp NEB Q6H PRN PRN Reason: SHORTNESS OF BREATH Last Admin: 08/27/17 08:54 Dose: 1 amp Amlodipine Besylate (Norvasc -) 5 mg PO DAILY [facility] Last Admin: 08/27/17 09:29 Dose: 5 mg Aspirin (Ecotrin -) 81 mg PO DAILY [facility] Last Admin: 08/27/17 09:27 Dose: 81 mg Budesonide/Formoterol Fumarate (Symbicort 160/4.5mcg -) 1 puff IH BID [facility] Last Admin: 08/27/17 09:30 Dose: 1 puff Ezetimibe (Zetia -) 10 mg PO DAILY [facility] Last Admin: 08/27/17 09:29 Dose: 10 mg Fentanyl (Sublimaze Injection -) 25 mcg IVPUSH [id number] PRN PRN Reason: PAIN-PACU ORDER X 4 DOSES ONLY Finasteride (Proscar -) 5 mg PO DAILY [facility] Last Admin: 08/27/17 09:28 Dose: 5 mg Gabapentin (Neurontin -) 600 mg PO DAILY [facility] Last Admin: 08/27/17 09:28 Dose: 600 mg Gabapentin (Neurontin -) 800 mg PO HS [facility] Last Admin: 08/26/17 23:01 Dose: 800 mg Hydromorphone HCl (Dilaudid Injection -) 4 mg IVPB Q4H PRN PRN Reason: PAIN LEVEL 7 - 10 Last Admin: 08/27/17 10:03 Dose: 4 mg Sodium Chloride (Normal Saline -) 1,000 mls @ 75 mls/hr IV ASDIR [facility] Last Admin: 08/26/17 16:31 Dose: 75 mls/hr Insulin Aspart (Novolog Vial Sliding Scale -) 1 vial SQ ACHS [facility] PRN Reason: Protocol Last Admin: 08/27/17 06:02 Dose: 2 units Montelukast Sodium (Singulair -) 10 mg PO HS [facility] Last Admin: 08/26/17 23:01 Dose: 10 mg Pancrelipase (Creon Dr 36,000 Units Capsule) 1 cap PO TIDCM [facility] Last Admin: 08/27/17 08:11 Dose: 1 cap Pantoprazole Sodium (Protonix -) 40 mg PO DAILY [facility] Last Admin: 02/16/18 09:29 Dose: 40 mg Polyethylene Glycol (Miralax (For Daily Use) -) 17 gm PO DAILY [facility] Last Admin: 08/27/17 09:27 Dose: 17 grams Ramipril (Altace -) 20 mg PO DAILY [facility] Last Admin: 08/27/17 09:27 Dose: 20 mg Rosuvastatin Calcium (Crestor -) 10 mg PO HS [facility] Last Admin: 08/26/17 23:02 Dose: 10 mg Tamsulosin HCl (Flomax -) 0.4 mg PO DAILY@0830 [facility] Last Admin: 08/27/17 08:11 Dose: 0.4 mg Tiotropium [place] (Spiriva -) 1 puff IH DAILY [facility] Last Admin: 08/27/17 09:33 Dose: 1 puff - Objective Vital Signs: Vital Signs Temperature 98.6 F 08/27/17 06:00 Pulse Rate 92 H 08/27/17 06:00 Respiratory Rate 18 08/27/17 06:00 Blood Pressure 148/78 08/27/17 06:00 O2 Sat by Pulse Oximetry (%) 98 08/26/17 22:45 Constitutional: Yes: Well Nourished, No Distress, Calm Cardiovascular: Yes: Regular Rate and Rhythm Respiratory: Yes: Regular Gastrointestinal: Yes: Hypoactive Bowel Sounds, Tenderness (around surgical site ) Musculoskeletal: Yes: Back Pain Extremities: Yes: WNL Edema: No Peripheral Pulses WNL: Yes Neurological: Yes: Alert, Oriented Psychiatric: Yes: Alert, Oriented Labs: CBC, BMP 08/27/17 06:30 08/26/17 07:30 INR, PTT INR 1.22 (0.82-1.09) H 08/21/17 06:55 Problem List - Problems (1) Hematuria Assessment/Plan: -seen by Urology -UA +3 blood -UC negative -has BPH, on tamsulosin and finestride -CT abdomen/pelvis pending -H/H stable -urine clear now Code(s): R31.9 - HEMATURIA, UNSPECIFIED (2) Pneumonia Assessment/Plan: -seen by ID -resolved -seen by pulmonary -bronchodilators -afebrile Code(s): J18.9 - PNEUMONIA, UNSPECIFIED ORGANISM Qualifiers: Pneumonia type: due to unspecified organism Laterality: right Lung location: unspecified part of lung Qualified Code(s): J18.9 - Pneumonia, unspecified organism (3) Umbilical hernia Assessment/Plan: -seen by GI surgery -restart Plavix -continue ASA -POD #1 -tolerating clear liquids Code(s): K42.9 - UMBILICAL HERNIA WITHOUT OBSTRUCTION OR GANGRENE Qualifiers: Obstruction and gangrene presence: without obstruction or gangrene Qualified Code(s): K42.9 - Umbilical hernia without obstruction or gangrene (4) ASHD (arteriosclerotic heart disease) Assessment/Plan: -seen by Cardiology -restart Plavix -on Zetia -asa 81 mg Code(s): I25.10 - ATHSCL HEART DISEASE OF [place] CORONARY ARTERY W/O ANG PCTRS Assessment/Plan see problem list
[2017-08-27] MEDS: SODIUM CHLORIDE 1,000 ML IV SCH (14:21)
[2017-08-27] MEDS: ONDANSETRON 4 MG/2 ML VIAL IVPUSH PRN ×2 (15:15→22:49)
--- NOTE | 2017-08-27 15:24 | PN ---
Progress Note (short form) - Note Progress Note: Anesthesia Pt seen and examined S:Alert and awake c/o pain O: Vital Signs Temperature 98.4 F 08/27/17 14:00 Pulse Rate 83 08/27/17 14:00 Respiratory Rate 20 08/27/17 14:00 Blood Pressure 157/88 08/27/17 14:00 O2 Sat by Pulse Oximetry (%) 98 08/27/17 09:00 CBC, BMP 08/27/17 06:30 08/26/17 07:30 A/P:s/p open repair of incarcerated hernia Doing well post op Continue current care Pain med(dilaudid) as needed Markus Degroot MD
[2017-08-27] MEDS: oxyCODONE HCL 5 MG TABLET PO PRN (17:30)
--- NOTE | 2017-08-27 20:58 | PN ---
Progress Note (short form) - Note Progress Note: POD 1 On pain medication Tolerating clears Vital Signs Period Temp Pulse Resp BP Sys/Gates Pulse Ox Last 24 Hr 97.7 F-99.2 F 73-102 16-20 105-159/61-91 97-100 Abd soft, dressing intact CBC, BMP 08/27/17 06:30 08/26/17 07:30 Can resume plavix Ambulate Problem List - Problems (1) Umbilical hernia Code(s): K42.9 - UMBILICAL HERNIA WITHOUT OBSTRUCTION OR GANGRENE Qualifiers: Obstruction and gangrene presence: without obstruction or gangrene Qualified Code(s): K42.9 - Umbilical hernia without obstruction or gangrene
[2017-08-27] MEDS: GABAPENTIN 400 MG CAPSULE (FP) PO SCH (22:49)
[2017-08-27] MEDS: MONTELUKAST NA 10 MG TABLET PO SCH (22:50)
[2017-08-27] MEDS: ROSUVASTATIN CA 10 MG TABLET (FP) PO SCH (22:50)
[2017-08-28] MEDS: oxyCODONE HCL 5 MG TABLET PO PRN (01:43)
--- NOTE | 2017-08-28 03:00 | CONSULT ---
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 Review of recent MRI Lumbar suggests several large disc herniations as well as modic changes which appear worst at the L34, L45 & L5S1 levels. This patient has had extensive efforts at conservative and non-operative management and describes a very poor quality of life with severe impairment of his activities of daily living. I have reviewed his case with him and discussed the potential role for a judicious evaluation of potential interventions to help him while balancing them with his medical frailty. He was scheduled to undergo hernia repair and we agreed that we should meet in an outpatient setting with his family to discuss this serious topic in detail. All questions were answered.
[2017-08-28] MEDS: HYDROmorphone HCL CARPU-JECT 4 MG/1 ML DISP.SYRIN IVPB PRN ×5 (03:19→21:12)
[2017-08-28] MEDS: SODIUM CHLORIDE 1,000 ML IV SCH ×3 (06:43→23:15)
[2017-08-28] MEDS: INSULIN SLIDING SCALE (NOVOLOG) 1 VIAL SQ SCH ×4 (06:45→21:19)
[2017-08-28] MEDS: ONDANSETRON 4 MG/2 ML VIAL IVPUSH PRN ×2 (06:57→12:53)
[2017-08-28] MEDS ORDERED: PT OWN MED DRAWER 7, Y5N ONE ×5 (07:51→21:10)
[2017-08-28] MEDS: LIPASE/PROTEASE/AMYLASE 36,000 UNIT CAPSULE PO SCH ×4 (08:30→18:17)
[2017-08-28 08:33] LABS: BASO % 0.4 % (0-2.0); EOS % 0.3 % (0-4.5); HEMATOCRIT 40.2 % (35.4-49); HEMOGLOBIN 12.9 GM/dL (11.7-16.9); LYMPH % 19.9 % (8-40); MCH 26.1 pg (25.7-33.7); MCHC 32.1 g/dl (32.0-35.9); MEAN CELL VOLUME 81.2 fl (80-96); MEAN PLT VOLUME 7.2 fl (7.5-11.1); MONO % 10.5 % (3.8-10.2); NEUT % 68.9 % (42.8-82.8); PLATELET COUNT 375 K/MM3 (134-434); RBC 4.95 M/mm3 (4.00-5.60); RDW 14.2 % (11.9-15.9); WHITE BLOOD COUNT 12.4 K/mm3 (4.0-10.0)
[2017-08-28 09:30] LABS: ALBUMIN 2.7 g/dl (3.4-5.0); ANION GAP 11 (8-16); BLOOD UREA NITROGEN 10 mg/dL (7-18); CALCIUM 8.8 mg/dL (8.5-10.1); CHLORIDE 103 mmol/L (98-107); CO2 26 mmol/L (21-32); CREATININE 1.2 mg/dL (0.7-1.3); GLUCOSE,RANDOM 182 mg/dL (74-106); SGPT/ALT 42 U/L (12-78); SODIUM 140 mmol/L (136-145)
[2017-08-28 09:32] LABS: ALK PHOS 91 U/L (45-117); TOT PROT 5.8 g/dl (6.4-8.2)
[2017-08-28 09:36] LABS: POTASSIUM 4.3 mmol/L (3.5-5.1); SGOT/AST 39 U/L (15-37)
[2017-08-28] MEDS: TIOTROPIUM BROMIDE 18 MCG/INH (DEVICE W/ 5 CAPSULES) IH SCH (10:54)
[2017-08-28] MEDS: BUDESONIDE/FORMETEROL FUMARATE 160/4.5 mcg INHALER IH SCH ×2 (10:54→21:13)
[2017-08-28] MEDS: POLYETHYLENE GLYCOL 3350 119 GM BTL PO SCH (11:00)
[2017-08-28] MEDS: ALBUTEROL SO4 2.5/IPRATROPIUM 0.5 INH SOL 3 ML VIAL.NEB. NEB PRN (11:45)
--- NOTE | 2017-08-28 11:47 | CONSULT ---
Consult Consult Specialty:: back and neck pain Referred by:: primary service Reason for Consultation:: back pain - History of Present Illness Chief Complaint: back pain History of Present Illness: This is a 61 y/o man with a significant medical history of HTN, HLD, CAD s/p VT - 6 stents, DM, Chronic Pancreatitis, Chronic Cervical/Lumbar Pain who presented to the ED with abdominal pain x 4 weeks, CP, SOB and palpitations x today. Patient reports having N/D- constipation, productive cough with green phlegm. He had numerous spine surgeries with Dr Delaney and Suresh. He is on chronic opioid therapy for his chronic pain. 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 Planned EMG/ NCVs studies and evaluation of motor weakness in process by treating neurologist Dr. Singh) Cardiovascular: Yes: CAD, CHF (s/p VT several years ago; s/p stenting. mild CHF in the past.), HTN, Hyperlipdemia, VT, Pulmonary Hypertension Pulmonary: Yes: Asthma, Sleep Apnea Gastrointestinal: Yes: Constipation, Other (FECAL INCONTINENCE SECONDARY TO OVERFLOW followed by Dr. Abdoulaye Wu, IPMN, PANCREATITIS . 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 Planned EMG/ NCVs studies and evaluation of motor weakness in process by treating neurologist Dr. Singh) Cardio/Vascular: Yes: CAD (Last stents placed x 2 last year per patient), CHF (s /p VT several years ago; s/p stenting. mild CHF in the past.), HTN, Hyperlipdemia, VT, Pulmonary Hypertension Pulmonary: Yes: Asthma, Sleep Apnea Gastrointestinal: Yes: Constipation, Pancreatitis (? history of chronic pancreatitis with episodes of acute pancreatitis), Other (FECAL INCONTINENCE SECONDARY TO OVERFLOW followed by Dr. Abdoulaye Wu, IPMN, PANCREATITIS . HAD EPISODE OF ISCHEMIC COLITIS LAST ADMISSION) Renal/: Yes: BPH Psych: Yes: Depression Musculoskeletal: Yes: Chronic low back pain, Other (CHRONIC NECK PAIN s/p Lumbar and Cervical fusion ) Endocrine: Yes: Diabetes Mellitus (has insulin pump) - Past Surgical History Past Surgical History: Yes: Breast Biopsy, Colonoscopy, Laminectomy, Stent (1 non eluting, 5 eluting) Additional Surgical History: Tracheostomy - Alcohol/Substance Use Hx Alcohol Use: No History of Substance Use: reports: None, Prescription (opiates for chronic pain post cervical spine surgery. 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 History of Recent Travel: No Home Medications - Allergies Allergies/Adverse Reactions: Allergies Allergy/AdvReac Type Severity Reaction Status Date / Time shellfish derived Allergy Severe Verified 08/18/17 13:42 Tetracyclines Allergy Severe Verified 08/18/17 13:42 - Home Medications Home Medications: Ambulatory Orders Albuterol 0.083% Nebulizer Elena [Ventolin 0.083%] 1 neb NEB Q4H 08/18/17 Albuterol Sulfate Inhaler - [Ventolin Hfa Inhaler -] 1 - 2 inh PO Q4H PRN Amlodipine Besylate [Norvasc -] 0 mg PO DAILY 08/18/17 Arformoterol Tartrate [Brovana] 15 mcg IH ASDIR 08/18/17 Aspirin [Aspirin EC] 81 mg PO DAILY 08/18/17 Budesonide/Formeterol Fumarate [SYMBICORT 160/4.5mcg -] 1 inh PO DAILY 08/18/17 Clopidogrel Bisulfate [Plavix] 75 mg PO DAILY 08/18/17 Dexlansoprazole [Dexilant] 30 mg PO DAILY 08/18/17 Diazepam [Valium] 5 mg PO PRN PRN 08/18/17 Ezetimibe [Zetia -] 10 mg PO DAILY 08/18/17 Furosemide [Lasix] 40 mg PO DAILY 08/18/17 Insulin Lispro [Humalog] 0 unit SQ PRN PRN 08/18/17 Insulin Pump Controller [Snap Insulin Pump Controller] 1 each MC ASDIR 08/18/17 Montelukast Sodium [Singulair] 10 mg PO DAILY 08/18/17 Ramipril [Altace] 10 mg PO DAILY 08/18/17 Ranitidine HCl 150 mg PO PRN PRN 08/18/17 Rosuvastatin Calcium [Crestor] 10 mg PO DAILY 08/18/17 Tiotropium [place] [Spiriva -] 1 puff IH DAILY 08/18/17 Family Disease History - Family Disease History Family Disease History: Diabetes: Mother ( 58: diabetic complications), CA: Father ( 49: asbestosis), Respiratory: Brother (bronchial asthma, DVT), Other: Mother, Sister (BCA), Son (2, healthy), Daughter (1, healthy) Other Family History: No family history of colorectal cancer Physical Exam Vital Signs: Vital Signs Temperature 97.3 F L 08/28/17 11:25 Pulse Rate 99 H 08/28/17 11:25 Respiratory Rate 18 08/28/17 11:25 Blood Pressure 144/81 08/28/17 11:25 O2 Sat by Pulse Oximetry (%) 96 08/28/17 08:56 Musculoskeletal: Yes: Back Pain Labs: CBC, BMP 08/28/17 07:00 08/28/17 07:00 Assessment/Plan back pain secondary to multilevel disc herniations Chronic neck pain Chronic opioid user Awaiting hernia repair 1. I spoke to the pt earlier this week regarding the chronicity of his opioid use. He has tried numerous times to stop his opioids by himself but was unsuccessful. I advised him he should seek out a specialist with possible conversion to suboxone in the future. 2. He is currently on IV dilaudid. I would recommend switching back to his home regimen of dilaudid nucynta as soon as he can tolerate it. 3. HE can follow up with me as an outpatient if needed 4. I advised him to follow up with spine surgery.
--- NOTE | 2017-08-28 11:58 | PN ---
Progress Note, Physician - Current Medication List Current Medications: Active Medications Albuterol/Ipratropium (Duoneb -) 1 amp NEB Q6H PRN PRN Reason: SHORTNESS OF BREATH Last Admin: 08/28/17 11:45 Dose: 1 amp Amlodipine Besylate (Norvasc -) 5 mg PO DAILY [facility] Last Admin: 08/27/17 09:29 Dose: 5 mg Aspirin (Ecotrin -) 81 mg PO DAILY [facility] Last Admin: 08/27/17 09:27 Dose: 81 mg Budesonide/Formoterol Fumarate (Symbicort 160/4.5mcg -) 1 puff IH BID [facility] Last Admin: 08/28/17 10:54 Dose: 1 puff Clopidogrel Bisulfate (Plavix -) 75 mg PO DAILY [facility] Ezetimibe (Zetia -) 10 mg PO DAILY [facility] Last Admin: 08/27/17 09:29 Dose: 10 mg Finasteride (Proscar -) 5 mg PO DAILY [facility] Last Admin: 08/27/17 09:28 Dose: 5 mg Gabapentin (Neurontin -) 600 mg PO DAILY [facility] Last Admin: 08/27/17 09:28 Dose: 600 mg Gabapentin (Neurontin -) 800 mg PO HS [facility] Last Admin: 08/27/17 22:49 Dose: 800 mg Hydromorphone HCl (Dilaudid Injection -) 4 mg IVPB Q4H PRN PRN Reason: PAIN LEVEL 7 - 10 Last Admin: 08/28/17 07:03 Dose: 4 mg Sodium Chloride (Normal Saline -) 1,000 mls @ 75 mls/hr IV ASDIR [facility] Last Admin: 08/28/17 06:43 Dose: 75 mls/hr Insulin Aspart (Novolog Vial Sliding Scale -) 1 vial SQ ACHS [facility] PRN Reason: Protocol Last Admin: 08/28/17 10:55 Dose: Not Given Montelukast Sodium (Singulair -) 10 mg PO HS [facility] Last Admin: 08/27/17 22:50 Dose: 10 mg Ondansetron HCl (Zofran Injection) 4 mg IVPUSH Q6H PRN PRN Reason: NAUSEA AND/OR VOMITING Last Admin: 08/28/17 06:57 Dose: 4 mg Oxycodone HCl (Roxicodone -) 5 mg PO Q6H PRN PRN Reason: PAIN LEVEL 4 - 6 Last Admin: 02/17/18 01:43 Dose: 5 mg Pancrelipase (Creon Dr 36,000 Units Capsule) 1 cap PO TIDCM [facility] Last Admin: 08/28/17 08:30 Dose: 1 cap Pantoprazole Sodium (Protonix -) 40 mg PO DAILY [facility] Last Admin: 08/27/17 09:29 Dose: 40 mg Polyethylene Glycol (Miralax (For Daily Use) -) 17 gm PO DAILY [facility] Last Admin: 08/27/17 09:27 Dose: 17 grams Ramipril (Altace -) 20 mg PO DAILY [facility] Last Admin: 08/27/17 09:27 Dose: 20 mg Rosuvastatin Calcium (Crestor -) 10 mg PO HS [facility] Last Admin: 08/27/17 22:50 Dose: 10 mg Tamsulosin HCl (Flomax -) 0.4 mg PO DAILY@0830 [facility] Last Admin: 08/27/17 08:11 Dose: 0.4 mg Tiotropium [place] (Spiriva -) 1 puff IH DAILY [facility] Last Admin: 08/28/17 10:54 Dose: 1 puff - Objective Vital Signs: Vital Signs Temperature 97.3 F L 08/28/17 11:25 Pulse Rate 99 H 08/28/17 11:25 Respiratory Rate 18 08/28/17 11:25 Blood Pressure 144/81 08/28/17 11:25 O2 Sat by Pulse Oximetry (%) 96 08/28/17 08:56 Cardiovascular: Yes: S1, S2 Respiratory: Yes: Regular, CTA Bilaterally Gastrointestinal: Yes: Normal Bowel Sounds, Soft, Tenderness Labs: CBC, BMP 08/28/17 07:00 08/28/17 07:00 INR, PTT INR 1.22 (0.82-1.09) H 08/21/17 06:55 Problem List - Problems (1) Chronic pancreatitis Code(s): K86.1 - OTHER CHRONIC PANCREATITIS Qualifiers: Pancreatitis type: unspecified pancreatitis type Qualified Code(s): K86.1 - Other chronic pancreatitis (2) 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 Code(s): E10.8 - TYPE 1 DIABETES MELLITUS WITH UNSPECIFIED COMPLICATIONS (3) CHF (congestive heart failure) Code(s): I50.9 - HEART FAILURE, UNSPECIFIED (4) Pneumonia Code(s): J18.9 - PNEUMONIA, UNSPECIFIED ORGANISM Qualifiers: Pneumonia type: due to unspecified organism Laterality: right Lung location: unspecified part of lung Qualified Code(s): J18.9 - Pneumonia, unspecified organism (5) Umbilical hernia Code(s): K42.9 - UMBILICAL HERNIA WITHOUT OBSTRUCTION OR GANGRENE Qualifiers: Obstruction and gangrene presence: without obstruction or gangrene Qualified Code(s): K42.9 - Umbilical hernia without obstruction or gangrene (6) COPD (chronic obstructive pulmonary disease) Code(s): J44.9 - CHRONIC OBSTRUCTIVE PULMONARY DISEASE, UNSPECIFIED (7) Coronary artery disease Code(s): I25.10 - ATHSCL HEART DISEASE OF [place] CORONARY ARTERY W/O ANG PCTRS Assessment/Plan - Problems (1) Hematuria Assessment/Plan: -seen by Urology -UA +3 blood -UC negative -has BPH, on tamsulosin and finestride -CT abdomen/pelvis pending -H/H stable -urine clear now Code(s): R31.9 - HEMATURIA, UNSPECIFIED (2) Pneumonia Assessment/Plan: -seen by ID -resolved -seen by pulmonary -bronchodilators -afebrile Code(s): J18.9 - PNEUMONIA, UNSPECIFIED ORGANISM Qualifiers: Pneumonia type: due to unspecified organism Laterality: right Lung location: unspecified part of lung Qualified Code(s): J18.9 - Pneumonia, unspecified organism (3) Umbilical hernia Assessment/Plan: -seen by GI surgery -restart Plavix -continue ASA -POD #2 -tolerating clear liquids Code(s): K42.9 - UMBILICAL HERNIA WITHOUT OBSTRUCTION OR GANGRENE Qualifiers: Obstruction and gangrene presence: without obstruction or gangrene Qualified Code(s): K42.9 - Umbilical hernia without obstruction or gangrene (4) ASHD (arteriosclerotic heart disease) Assessment/Plan: -seen by Cardiology -restart Plavix -on Zetia -asa 81 mg Code(s): I25.10 - ATHSCL HEART DISEASE OF [place] CORONARY ARTERY W/O ANG PCTRS
--- NOTE | 2017-08-28 13:02 | PN ---
Progress Note (short form) - Note Progress Note: Neurology This is a 61 y/o man with a significant medical history of HTN, HLD, CAD s/p [place] - 6 stents, DM, Chronic Pancreatitis, Chronic Cervical/Lumbar Pain who presented to the ED with abdominal pain x 4 weeks, CP, SOB and palpitations. Patient reports having N/D- constipation, productive cough with green phlegm. Placed on Augmentin and Cipro for a cough week prior to admission, with poor compliance secondary to abdominal pain. Patient previously seeing Dr. Singh and had extensive conversation regarding cervicalgia and cervical radiculopathy. On this admission, was having flank discomfort and history of lumbar treatment, therefore L spine ordered. Multilevel degenerative disease and spinal stenosis, seen by Dr. Norris who recommended further outpatient conversation regarding intervention. Dr. Chase also consulted and note in chart. Patient requesting pain medications. Completed umbilicial surgery without complication. Home Medication List Medication Instructions Recorded Confirmed Type Albuterol 0.083% Nebulizer Elena 1 neb NEB Q4H 08/18/17 08/18/17 History [Ventolin 0.083%] Albuterol Sulfate Inhaler - 1 - 2 inh PO Q4H PRN 08/18/17 08/18/17 History [Ventolin Hfa Inhaler -] Amlodipine Besylate [Norvasc -] 0 mg PO DAILY 08/18/17 08/18/17 History Arformoterol Tartrate [Brovana] 15 mcg IH ASDIR 08/18/17 08/18/17 History Aspirin [Aspirin EC] 81 mg PO DAILY 08/18/17 08/18/17 History Budesonide/Formeterol Fumarate 1 inh PO DAILY 08/18/17 08/18/17 History [SYMBICORT 160/4.5mcg -] Clopidogrel Bisulfate [Plavix] 75 mg PO DAILY 08/18/17 08/18/17 History Dexlansoprazole [Dexilant] 30 mg PO DAILY 08/18/17 08/18/17 History Diazepam [Valium] 5 mg PO PRN PRN 08/18/17 08/18/17 History Ezetimibe [Zetia -] 10 mg PO DAILY 08/18/17 08/18/17 History Furosemide [Lasix] 40 mg PO DAILY 08/18/17 08/18/17 History Insulin Lispro [Humalog] 0 unit SQ PRN PRN 08/18/17 08/18/17 History Insulin Pump Controller [Snap 1 each MC ASDIR 08/18/17 08/18/17 History Insulin Pump Controller] Montelukast Sodium [Singulair] 10 mg PO DAILY 08/18/17 08/18/17 History Ramipril [Altace] 10 mg PO DAILY 08/18/17 08/18/17 History Ranitidine HCl 150 mg PO PRN PRN 08/18/17 08/18/17 History Rosuvastatin Calcium [Crestor] 10 mg PO DAILY 08/18/17 08/18/17 History Tiotropium Frederic [Spiriva -] 1 puff IH DAILY 08/18/17 08/18/17 History Active Medications Albuterol/Ipratropium (Duoneb -) 1 amp NEB Q6H PRN PRN Reason: SHORTNESS OF BREATH Last Admin: 08/28/17 11:45 Dose: 1 amp Amlodipine Besylate (Norvasc -) 5 mg PO DAILY [facility] Last Admin: 08/27/17 09:29 Dose: 5 mg Aspirin (Ecotrin -) 81 mg PO DAILY [facility] Last Admin: 08/27/17 09:27 Dose: 81 mg Budesonide/Formoterol Fumarate (Symbicort 160/4.5mcg -) 1 puff IH BID [facility] Last Admin: 08/28/17 10:54 Dose: 1 puff Clopidogrel Bisulfate (Plavix -) 75 mg PO DAILY [facility] Ezetimibe (Zetia -) 10 mg PO DAILY [facility] Last Admin: 08/27/17 09:29 Dose: 10 mg Finasteride (Proscar -) 5 mg PO DAILY [facility] Last Admin: 08/27/17 09:28 Dose: 5 mg Gabapentin (Neurontin -) 600 mg PO DAILY [facility] Last Admin: 08/27/17 09:28 Dose: 600 mg Gabapentin (Neurontin -) 800 mg PO HS [facility] Last Admin: 08/27/17 22:49 Dose: 800 mg Hydromorphone HCl (Dilaudid Injection -) 4 mg IVPB Q4H PRN PRN Reason: PAIN LEVEL 7 - 10 Last Admin: 08/28/17 12:38 Dose: 4 mg Sodium Chloride (Normal Saline -) 1,000 mls @ 75 mls/hr IV ASDIR [facility] Last Admin: 08/28/17 06:43 Dose: 75 mls/hr Insulin Aspart (Novolog Vial Sliding Scale -) 1 vial SQ ACHS [facility] PRN Reason: Protocol Last Admin: 08/28/17 10:55 Dose: Not Given Montelukast Sodium (Singulair -) 10 mg PO HS [facility] Last Admin: 08/27/17 22:50 Dose: 10 mg Ondansetron HCl (Zofran Injection) 4 mg IVPUSH Q6H PRN PRN Reason: NAUSEA AND/OR VOMITING Last Admin: 08/28/17 12:53 Dose: 4 mg Oxycodone HCl (Roxicodone -) 5 mg PO Q6H PRN PRN Reason: PAIN LEVEL 4 - 6 Last Admin: 08/28/17 01:43 Dose: 5 mg Pancrelipase (Creon Dr 36,000 Units Capsule) 1 cap PO TIDCM [facility] Last Admin: 08/28/17 09:00 Dose: Not Given Pantoprazole Sodium (Protonix -) 40 mg PO DAILY [facility] Last Admin: 08/27/17 09:29 Dose: 40 mg Polyethylene Glycol (Miralax (For Daily Use) -) 17 gm PO DAILY [facility] Last Admin: 08/27/17 09:27 Dose: 17 grams Ramipril (Altace -) 20 mg PO DAILY [facility] Last Admin: 08/27/17 09:27 Dose: 20 mg Rosuvastatin Calcium (Crestor -) 10 mg PO [facility] Last Admin: 08/27/17 22:50 Dose: 10 mg Tamsulosin HCl (Flomax -) 0.4 mg PO DAILY@0830 [facility] Last Admin: 08/27/17 08:11 Dose: 0.4 mg Tiotropium Frederic (Spiriva -) 1 puff IH DAILY [facility] Last Admin: 08/28/17 10:54 Dose: 1 puff Physical Examination Vital Signs Period Temp Pulse Resp BP Sys/Gates Pulse Ox Last 24 Hr 97.3 F-99.2 F 82-102 18-20 122-157/70-88 96-98 Constitutional: Yes: Calm, Mild Distress, Obese Eyes: Yes: WNL, Conjunctiva Clear, EOM Intact, PERRL HENT: Yes: WNL, Atraumatic, Normocephalic Neck: Yes: Supple, Other (Trach w/closed button) Cardiovascular: Yes: Regular Rate and Rhythm, S1, S2 Respiratory: Yes: Diminished, On Nasal O2, Rhonchi, SOB, Wheezes Gastrointestinal: Yes: Soft, Abdomen, Obese, Hypoactive Bowel Sounds, Tenderness (generalized), Other (hernia) ...Rectal Exam: Yes: Deferred Renal/: Yes: WNL Breast(s): Yes: WNL Musculoskeletal: Yes: Back Pain Extremities: Yes: WNL Edema: No Peripheral Pulses WNL: Yes Integumentary: Yes: WNL Neurological: CN intact, no facial droop, no slurred speech, moves all extremities grossly but limited in confrontation testing, sensory intact, rolling walker at bedside for ambulation CBCD WBC 12.4 K/mm3 (4.0-10.0) H 08/28/17 07:00 RBC 4.95 M/mm3 (4.00-5.60) D 08/28/17 07:00 Hgb 12.9 GM/dL (11.7-16.9) D 08/28/17 07:00 Hct 40.2 % (35.4-49) D 08/28/17 07:00 MCV 81.2 fl (80-96) 08/28/17 07:00 MCHC 32.1 g/dl (32.0-35.9) 08/28/17 07:00 RDW 14.2 % (11.9-15.9) 08/28/17 07:00 Plt Count 375 K/MM3 (134-434) 08/28/17 07:00 MPV 7.2 fl (7.5-11.1) L 08/28/17 07:00 CMP Sodium 140 mmol/L (136-145) 08/28/17 07:00 Potassium 4.3 mmol/L (3.5-5.1) 08/28/17 07:00 Chloride 103 mmol/L (98-107) 08/28/17 07:00 Carbon Dioxide 26 mmol/L (21-32) 08/28/17 07:00 Anion Gap 11 (8-16) 08/28/17 07:00 BUN 10 mg/dL (7-18) D 08/28/17 07:00 Creatinine 1.2 mg/dL (0.7-1.3) D 08/28/17 07:00 Creat Clearance w eGFR > 60 (>60) 08/28/17 07:00 Calcium 8.8 mg/dL (8.5-10.1) 08/28/17 07:00 Total Bilirubin 1.0 mg/dL (0.2-1.0) D 08/28/17 07:00 AST 39 U/L (15-37) H 08/28/17 07:00 ALT 42 U/L (12-78) D 08/28/17 07:00 Alkaline Phosphatase 91 U/L (45-117) 08/28/17 07:00 Total Protein 5.8 g/dl (6.4-8.2) L 08/28/17 07:00 Albumin 2.7 g/dl (3.4-5.0) L 08/28/17 07:00 MRI L spine completed, awaiting official read Problem List 61 y/o man with a significant medical history of HTN, HLD, CAD s/p [place]- 6 stents , DM, Chronic Pancreatitis, Chronic Cervical/Lumbar Pain who presented to the ED with abdominal pain x 4 weeks, CP, SOB and palpitations x today. Patient reports having N/D- constipation, productive cough with green phlegm. Placed on Augmentin and Cipro for a cough week prior to admission, with poor compliance secondary to abdominal pain. Patient previously seeing Dr. Singh with flank/ back pain. L spine MRI images reviewed, multilevel DDD and stenosis noted. Unclear if changed from prior. Remains on pain medication. NSGY note reviewed, no acute intervention. Patient also with pain mgmt consult, Dr. Chase note apprecaited. Asking for pain medication. Monitor for sedation, caution with opioids in conjunction with gabapentin which is also increased dose. Continue rolling walker, physical therapy. Fall precautions.
--- NOTE | 2017-08-28 14:53 | PN ---
Progress Note, Physician Chief Complaint: Events noted Post umbilical hernia repair - complains of post op abdominal incisional pain History of Present Illness: Patient was seen and examined. Awake and alert. Chart was reviewed Denies chest pain, SOB or palpitations As outlined above. Abdominal Xray pending - Current Medication List Current Medications: Active Medications Albuterol/Ipratropium (Duoneb -) 1 amp NEB Q6H PRN PRN Reason: SHORTNESS OF BREATH Last Admin: 08/28/17 11:45 Dose: 1 amp Amlodipine Besylate (Norvasc -) 5 mg PO DAILY [facility] Last Admin: 08/27/17 09:29 Dose: 5 mg Aspirin (Ecotrin -) 81 mg PO DAILY [facility] Last Admin: 08/27/17 09:27 Dose: 81 mg Budesonide/Formoterol Fumarate (Symbicort 160/4.5mcg -) 1 puff IH BID [facility] Last Admin: 08/28/17 10:54 Dose: 1 puff Clopidogrel Bisulfate (Plavix -) 75 mg PO DAILY [facility] Ezetimibe (Zetia -) 10 mg PO DAILY [facility] Last Admin: 08/27/17 09:29 Dose: 10 mg Finasteride (Proscar -) 5 mg PO DAILY [facility] Last Admin: 08/27/17 09:28 Dose: 5 mg Gabapentin (Neurontin -) 600 mg PO DAILY [facility] Last Admin: 08/27/17 09:28 Dose: 600 mg Gabapentin (Neurontin -) 800 mg PO HS [facility] Last Admin: 08/27/17 22:49 Dose: 800 mg Hydromorphone HCl (Dilaudid Injection -) 4 mg IVPB Q4H PRN PRN Reason: PAIN LEVEL 7 - 10 Last Admin: 08/28/17 12:38 Dose: 4 mg Sodium Chloride (Normal Saline -) 1,000 mls @ 75 mls/hr IV ASDIR [facility] Last Admin: 08/28/17 06:43 Dose: 75 mls/hr Insulin Aspart (Novolog Vial Sliding Scale -) 1 vial SQ ACHS [facility] PRN Reason: Protocol Last Admin: 08/28/17 10:55 Dose: Not Given Montelukast Sodium (Singulair -) 10 mg PO HS [facility] Last Admin: 08/27/17 22:50 Dose: 10 mg Ondansetron HCl (Zofran Injection) 4 mg IVPUSH Q6H PRN PRN Reason: NAUSEA AND/OR VOMITING Last Admin: 08/28/17 12:53 Dose: 4 mg Oxycodone HCl (Roxicodone -) 5 mg PO Q6H PRN PRN Reason: PAIN LEVEL 4 - 6 Last Admin: 08/28/17 01:43 Dose: 5 mg Pancrelipase (Creon Dr 36,000 Units Capsule) 1 cap PO TIDCM [facility] Last Admin: 08/28/17 09:00 Dose: Not Given Pantoprazole Sodium (Protonix -) 40 mg PO DAILY [facility] Last Admin: 08/27/17 09:29 Dose: 40 mg Polyethylene Glycol (Miralax (For Daily Use) -) 17 gm PO DAILY [facility] Last Admin: 08/27/17 09:27 Dose: 17 grams Ramipril (Altace -) 20 mg PO DAILY [facility] Last Admin: 08/27/17 09:27 Dose: 20 mg Rosuvastatin Calcium (Crestor -) 10 mg PO HS [facility] Last Admin: 08/27/17 22:50 Dose: 10 mg Tamsulosin HCl (Flomax -) 0.4 mg PO DAILY@0830 [facility] Last Admin: 08/27/17 08:11 Dose: 0.4 mg Tiotropium [place] (Spiriva -) 1 puff IH DAILY [facility] Last Admin: 08/28/17 10:54 Dose: 1 puff - Objective Vital Signs: Vital Signs Temperature 98.8 F 08/28/17 14:28 Pulse Rate 108 H 08/28/17 14:28 Respiratory Rate 18 08/28/17 14:28 Blood Pressure 123/89 08/28/17 14:28 O2 Sat by Pulse Oximetry (%) 96 08/28/17 08:56 Neck: Yes: Supple Cardiovascular: Yes: Regular Rate and Rhythm, Tachycardia, S1, S2 Respiratory: Yes: Diminished Gastrointestinal: Yes: Other (Post operative incisional pain) Edema: No Labs: CBC, BMP 08/28/17 07:00 08/28/17 07:00 - ....Imaging X-ray: Pending Problem List - Problems (1) Chronic pancreatitis Code(s): K86.1 - OTHER CHRONIC PANCREATITIS Qualifiers: Pancreatitis type: unspecified pancreatitis type Qualified Code(s): K86.1 - Other chronic pancreatitis (2) 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 Code(s): E10.8 - TYPE 1 DIABETES MELLITUS WITH UNSPECIFIED COMPLICATIONS (3) Hematuria Code(s): R31.9 - HEMATURIA, UNSPECIFIED (4) Renal calculus, left Code(s): N20.0 - CALCULUS OF KIDNEY (5) ASHD (arteriosclerotic heart disease) Code(s): I25.10 - ATHSCL HEART DISEASE OF [place] CORONARY ARTERY W/O ANG PCTRS (6) Abdominal pain Code(s): R10.9 - UNSPECIFIED ABDOMINAL PAIN Qualifiers: Abdominal location: upper abdomen, unspecified Qualified Code(s): R10.10 - Upper abdominal pain, unspecified (7) Acute on chronic diastolic (congestive) heart failure Code(s): I50.33 - ACUTE ON CHRONIC DIASTOLIC (CONGESTIVE) HEART FAILURE (8) Anemia Code(s): D64.9 - ANEMIA, UNSPECIFIED (9) Asthma Code(s): J45.909 - UNSPECIFIED ASTHMA, UNCOMPLICATED Qualifiers: Asthma severity: unspecified severity (10) Diabetes mellitus Code(s): E11.9 - TYPE 2 DIABETES MELLITUS WITHOUT COMPLICATIONS Qualifiers: Diabetes mellitus type: type 2 Diabetes mellitus complication detail: with unspecified neuropathy (11) Hypertension Code(s): I10 - ESSENTIAL (PRIMARY) HYPERTENSION Qualifiers: Hypertension type: essential hypertension Qualified Code(s): I10 - Essential (primary) hypertension (12) IPMN (intraductal papillary mucinous neoplasm) Code(s): D49.0 - NEOPLASM OF UNSPECIFIED BEHAVIOR OF DIGESTIVE SYSTEM (13) GRACIE (obstructive sleep apnea) Code(s): G47.33 - OBSTRUCTIVE SLEEP APNEA (ADULT) (PEDIATRIC) Assessment/Plan 1. Post-operative umbilical hernia repair 2. Chronic pancreatitis and esophagitis 3. Chronic atypical chest pain 4. CAD s/p SC, post PCI (stents), angina pectoris 6. HTN/HCVD 5. Hyperlipidemia 6. Diastolic dysfunction and pulmonary HTN 7. OSAS 8. COPD/Asthma 9. Acute on CKD resolving 10. Hematuria with left non-obstructive calculus PLAN: 1. Surgery follow up. Continue analgesics as needed 2. Bronchodilator, O2 as needed and empiric antibiotic coverage 3. ECG 4. ASA held, but Plavix given (as per medication list) 5. Amlodipine and Ramipril as tolerated Further plans are to follow. Patient was seen and examined 30 minutes Samuel Calvillo MD
[2017-08-28] MEDS: TAMSULOSIN HCL 0.4 MG CAP.ER.24H (FP) PO SCH (18:13)
[2017-08-28] MEDS: GABAPENTIN 300 MG CAPSULE (FP) PO SCH (18:14)
[2017-08-28] MEDS: amLODIPine BESYLATE 2.5 MG TABLET (FP) PO SCH (18:15)
[2017-08-28] MEDS: EZETIMIBE 10 MG TABLET (FP) PO SCH (18:16)
[2017-08-28] MEDS: CLOPIDOGREL BISULFATE 75 MG TABLET (FP) PO SCH (18:16)
[2017-08-28] MEDS: ASPIRIN COATED 81 MG TABLET.EC PO SCH (18:16)
[2017-08-28] MEDS: PANTOPRAZOLE 40 MG TABLET (FP) PO SCH (18:16)
[2017-08-28] MEDS: RAMIPRIL 5 MG CAPSULE (FP) PO SCH (18:16)
[2017-08-28] MEDS: FINASTERIDE 5 MG TABLET (FP) PO SCH (18:16)
[2017-08-28] MEDS: GABAPENTIN 400 MG CAPSULE (FP) PO SCH (21:12)
[2017-08-28] MEDS: ROSUVASTATIN CA 10 MG TABLET (FP) PO SCH (21:13)
[2017-08-28] MEDS: MONTELUKAST NA 10 MG TABLET PO SCH (21:13)
[2017-08-29] MEDS: HYDROmorphone HCL CARPU-JECT 4 MG/1 ML DISP.SYRIN IVPB PRN ×6 (01:15→22:46)
[2017-08-29] MEDS: ONDANSETRON 4 MG/2 ML VIAL IVPUSH PRN ×2 (01:18→16:34)
[2017-08-29] MEDS ORDERED: PT OWN MED DRAWER 7, Y5N ONE ×4 (03:35→17:13)
[2017-08-29] MEDS: INSULIN SLIDING SCALE (NOVOLOG) 1 VIAL SQ SCH ×4 (06:46→22:44)
[2017-08-29] MEDS: ALBUTEROL SO4 2.5/IPRATROPIUM 0.5 INH SOL 3 ML VIAL.NEB. NEB PRN ×2 (07:06→20:35)
[2017-08-29] MEDS: LIPASE/PROTEASE/AMYLASE 36,000 UNIT CAPSULE PO SCH ×3 (08:08→17:15)
[2017-08-29] MEDS: TAMSULOSIN HCL 0.4 MG CAP.ER.24H (FP) PO SCH (08:08)
[2017-08-29] MEDS: TIOTROPIUM BROMIDE 18 MCG/INH (DEVICE W/ 5 CAPSULES) IH SCH (09:50)
[2017-08-29] MEDS: GABAPENTIN 300 MG CAPSULE (FP) PO SCH (09:51)
[2017-08-29] MEDS: POLYETHYLENE GLYCOL 3350 119 GM BTL PO SCH (09:51)
[2017-08-29] MEDS: FINASTERIDE 5 MG TABLET (FP) PO SCH (09:52)
[2017-08-29] MEDS: amLODIPine BESYLATE 2.5 MG TABLET (FP) PO SCH (09:52)
[2017-08-29] MEDS: PANTOPRAZOLE 40 MG TABLET (FP) PO SCH (09:52)
[2017-08-29] MEDS: CLOPIDOGREL BISULFATE 75 MG TABLET (FP) PO SCH (09:52)
[2017-08-29] MEDS: ASPIRIN COATED 81 MG TABLET.EC PO SCH (09:52)
[2017-08-29] MEDS: RAMIPRIL 5 MG CAPSULE (FP) PO SCH (09:53)
[2017-08-29] MEDS: EZETIMIBE 10 MG TABLET (FP) PO SCH (09:54)
[2017-08-29] MEDS: BUDESONIDE/FORMETEROL FUMARATE 160/4.5 mcg INHALER IH SCH ×2 (09:57→21:45)
--- NOTE | 2017-08-29 11:06 | EKG ---
Test Reason : Blood Pressure : / mmHG Vent. Rate : 099 BPM Atrial Rate : 099 BPM P-R Int : 160 ms QRS Dur : 086 ms QT Int : 390 ms P-R-T Axes : 044 008 026 degrees QTc Int : 500 ms SINUS RHYTHM WITH OCCASIONAL PREMATURE VENTRICULAR COMPLEXES AND PREMATURE ATRIAL COMPLEXES NONSPECIFIC T WAVE ABNORMALITY PROLONGED QT ABNORMAL ECG WHEN COMPARED WITH ECG OF 18-AUG-2017 13:45, PREMATURE VENTRICULAR COMPLEXES ARE NOW PRESENT ST NO LONGER ELEVATED IN ANTERIOR LEADS NONSPECIFIC T WAVE ABNORMALITY, WORSE IN INFERIOR LEADS NONSPECIFIC T WAVE ABNORMALITY NOW EVIDENT IN ANTEROLATERAL LEADS QT HAS LENGTHENED Confirmed by PAULA HYLTON MD ([id number]) on 08/29/2017 11:06:04 AM Referred By: Julita ROSS Confirmed By:PAULA HYLTON MD
[2017-08-29] MEDS: SODIUM CHLORIDE 1,000 ML IV SCH (12:33)
--- NOTE | 2017-08-29 13:41 | PN ---
Progress Note, Physician - Current Medication List Current Medications: Active Medications Albuterol/Ipratropium (Duoneb -) 1 amp NEB Q6H PRN PRN Reason: SHORTNESS OF BREATH Last Admin: 08/29/17 07:06 Dose: 1 amp Amlodipine Besylate (Norvasc -) 5 mg PO DAILY [facility] Last Admin: 08/29/17 09:52 Dose: 5 mg Aspirin (Ecotrin -) 81 mg PO DAILY [facility] Last Admin: 08/29/17 09:52 Dose: 81 mg Budesonide/Formoterol Fumarate (Symbicort 160/4.5mcg -) 1 puff IH BID [facility] Last Admin: 08/29/17 09:57 Dose: 1 puff Clopidogrel Bisulfate (Plavix -) 75 mg PO DAILY [facility] Last Admin: 08/29/17 09:52 Dose: 75 mg Ezetimibe (Zetia -) 10 mg PO DAILY [facility] Last Admin: 08/29/17 09:54 Dose: 10 mg Finasteride (Proscar -) 5 mg PO DAILY [facility] Last Admin: 08/29/17 09:52 Dose: 5 mg Gabapentin (Neurontin -) 600 mg PO DAILY [facility] Last Admin: 08/29/17 09:51 Dose: 600 mg Gabapentin (Neurontin -) 800 mg PO HS [facility] Last Admin: 08/28/17 21:12 Dose: 800 mg Hydromorphone HCl (Dilaudid Injection -) 4 mg IVPB Q4H PRN PRN Reason: PAIN LEVEL 7 - 10 Last Admin: 08/29/17 09:48 Dose: 4 mg Sodium Chloride (Normal Saline -) 1,000 mls @ 75 mls/hr IV ASDIR [facility] Last Admin: 08/29/17 12:33 Dose: 75 mls/hr Insulin Aspart (Novolog Vial Sliding Scale -) 1 vial SQ ACHS [facility] PRN Reason: Protocol Last Admin: 08/29/17 12:35 Dose: Not Given Montelukast Sodium (Singulair -) 10 mg PO HS [facility] Last Admin: 08/28/17 21:13 Dose: 10 mg Ondansetron HCl (Zofran Injection) 4 mg IVPUSH Q6H PRN PRN Reason: NAUSEA AND/OR VOMITING Last Admin: 08/29/17 01:18 Dose: 4 mg Oxycodone HCl (Roxicodone -) 5 mg PO Q6H PRN PRN Reason: PAIN LEVEL 4 - 6 Last Admin: 08/28/17 01:43 Dose: 5 mg Pancrelipase (Creon Dr 36,000 Units Capsule) 1 cap PO TIDCM [facility] Last Admin: 08/29/17 12:35 Dose: 1 cap Pantoprazole Sodium (Protonix -) 40 mg PO DAILY [facility] Last Admin: 08/29/17 09:52 Dose: 40 mg Polyethylene Glycol (Miralax (For Daily Use) -) 17 gm PO DAILY [facility] Last Admin: 08/29/17 09:51 Dose: 17 grams Ramipril (Altace -) 20 mg PO DAILY [facility] Last Admin: 08/29/17 09:53 Dose: 20 mg Rosuvastatin Calcium (Crestor -) 10 mg PO HS [facility] Last Admin: 08/28/17 21:13 Dose: 10 mg Tamsulosin HCl (Flomax -) 0.4 mg PO DAILY@0830 [facility] Last Admin: 08/29/17 08:08 Dose: 0.4 mg Tiotropium [place] (Spiriva -) 1 puff IH DAILY [facility] Last Admin: 08/29/17 09:50 Dose: 1 puff - Objective Vital Signs: Vital Signs Temperature 98.9 F 08/29/17 05:48 Pulse Rate 90 08/29/17 10:00 Respiratory Rate 20 08/29/17 10:00 Blood Pressure 170/90 08/29/17 10:00 O2 Sat by Pulse Oximetry (%) 96 08/29/17 09:00 Cardiovascular: Yes: S1, S2 Respiratory: Yes: Regular, CTA Bilaterally Gastrointestinal: Yes: Normal Bowel Sounds, Soft. 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 Code(s): E10.8 - TYPE 1 DIABETES MELLITUS WITH UNSPECIFIED COMPLICATIONS (3) CHF (congestive heart failure) Code(s): I50.9 - HEART FAILURE, UNSPECIFIED (4) Pneumonia Code(s): J18.9 - PNEUMONIA, UNSPECIFIED ORGANISM Qualifiers: Pneumonia type: due to unspecified organism Laterality: right Lung location: unspecified part of lung Qualified Code(s): J18.9 - Pneumonia, unspecified organism (5) Umbilical hernia Code(s): K42.9 - UMBILICAL HERNIA WITHOUT OBSTRUCTION OR GANGRENE Qualifiers: Obstruction and gangrene presence: without obstruction or gangrene Qualified Code(s): K42.9 - Umbilical hernia without obstruction or gangrene (6) COPD (chronic obstructive pulmonary disease) Code(s): J44.9 - CHRONIC OBSTRUCTIVE PULMONARY DISEASE, UNSPECIFIED (7) Coronary artery disease Code(s): I25.10 - ATHSCL HEART DISEASE OF [place] CORONARY ARTERY W/O ANG PCTRS Assessment/Plan - Problems (1) Hematuria Assessment/Plan: -seen by Urology -UA +3 blood -UC negative -has BPH, on tamsulosin and finestride -CT abdomen/pelvis pending -H/H stable -urine clear now Code(s): R31.9 - HEMATURIA, UNSPECIFIED (2) Pneumonia Assessment/Plan: -seen by ID -resolved -seen by pulmonary -bronchodilators -afebrile Code(s): J18.9 - PNEUMONIA, UNSPECIFIED ORGANISM Qualifiers: Pneumonia type: due to unspecified organism Laterality: right Lung location: unspecified part of lung Qualified Code(s): J18.9 - Pneumonia, unspecified organism (3) Umbilical hernia Assessment/Plan: -seen by GI surgery -restart Plavix -continue ASA -POD #2 -tolerating clear liquids Code(s): K42.9 - UMBILICAL HERNIA WITHOUT OBSTRUCTION OR GANGRENE Qualifiers: Obstruction and gangrene presence: without obstruction or gangrene Qualified Code(s): K42.9 - Umbilical hernia without obstruction or gangrene (4) ASHD (arteriosclerotic heart disease) Assessment/Plan: -seen by Cardiology -restart Plavix -on Zetia -asa 81 mg Code(s): I25.10 - ATHSCL HEART DISEASE OF [place] CORONARY ARTERY W/O ANG PCTRS (5) Abdominal Pain Assessment/Plan: -f/u abd xray -surgical follow up (4) Abnormal EKG Assessment/Plan: -repeat -follow up ce
[2017-08-29] MEDS: oxyCODONE HCL 5 MG TABLET PO PRN (16:34)
[2017-08-29] MEDS ORDERED: INSULIN (NOVOLOG) ASPART 100 UNITS/ML 10ML VIAL ONE (21:04)
[2017-08-29] MEDS: GABAPENTIN 400 MG CAPSULE (FP) PO SCH (22:41)
[2017-08-29] MEDS: ROSUVASTATIN CA 10 MG TABLET (FP) PO SCH (22:41)
[2017-08-29] MEDS: MONTELUKAST NA 10 MG TABLET PO SCH (22:41)
--- NOTE | 2017-08-29 23:32 | PN ---
Progress Note, Physician Chief Complaint: Events noted Post umbilical hernia repair - complains of post op abdominal incisional pain, but a little less History of Present Illness: Patient was seen and examined. Awake and alert. Chart was reviewed Denies chest pain, SOB or palpitations As outlined above. Tolerating with analgesics PRN - Current Medication List Current Medications: Active Medications Albuterol/Ipratropium (Duoneb -) 1 amp NEB Q6H PRN PRN Reason: SHORTNESS OF BREATH Last Admin: 08/29/17 20:35 Dose: 1 amp Amlodipine Besylate (Norvasc -) 5 mg PO DAILY [facility] Last Admin: 08/29/17 09:52 Dose: 5 mg Aspirin (Ecotrin -) 81 mg PO DAILY [facility] Last Admin: 08/29/17 09:52 Dose: 81 mg Budesonide/Formoterol Fumarate (Symbicort 160/4.5mcg -) 1 puff IH BID [facility] Last Admin: 08/29/17 09:57 Dose: 1 puff Clopidogrel Bisulfate (Plavix -) 75 mg PO DAILY [facility] Last Admin: 08/29/17 09:52 Dose: 75 mg Ezetimibe (Zetia -) 10 mg PO DAILY [facility] Last Admin: 08/29/17 09:54 Dose: 10 mg Finasteride (Proscar -) 5 mg PO DAILY [facility] Last Admin: 08/29/17 09:52 Dose: 5 mg Gabapentin (Neurontin -) 600 mg PO DAILY [facility] Last Admin: 08/29/17 09:51 Dose: 600 mg Gabapentin (Neurontin -) 800 mg PO [facility] Last Admin: 08/29/17 22:41 Dose: 800 mg Hydromorphone HCl (Dilaudid Injection -) 4 mg IVPB Q4H PRN PRN Reason: PAIN LEVEL 7 - 10 Last Admin: 08/29/17 22:46 Dose: 4 mg Sodium Chloride (Normal Saline -) 1,000 mls @ 75 mls/hr IV ASDIR [facility] Last Admin: 08/29/17 12:33 Dose: 75 mls/hr Insulin Aspart (Novolog Vial Sliding Scale -) 1 vial SQ ACHS [facility] PRN Reason: Protocol Last Admin: 08/29/17 22:44 Dose: Not Given Montelukast Sodium (Singulair -) 10 mg PO [facility] Last Admin: 02/18/18 22:41 Dose: 10 mg Ondansetron HCl (Zofran Injection) 4 mg IVPUSH Q6H PRN PRN Reason: NAUSEA AND/OR VOMITING Last Admin: 08/29/17 16:34 Dose: 4 mg Oxycodone HCl (Roxicodone -) 5 mg PO Q6H PRN PRN Reason: PAIN LEVEL 4 - 6 Last Admin: 08/29/17 16:34 Dose: 5 mg Pancrelipase (Creon Dr 36,000 Units Capsule) 1 cap PO TIDCM [facility] Last Admin: 08/29/17 17:15 Dose: 1 cap Pantoprazole Sodium (Protonix -) 40 mg PO DAILY [facility] Last Admin: 08/29/17 09:52 Dose: 40 mg Polyethylene Glycol (Miralax (For Daily Use) -) 17 gm PO DAILY [facility] Last Admin: 08/29/17 09:51 Dose: 17 grams Ramipril (Altace -) 20 mg PO DAILY [facility] Last Admin: 08/29/17 09:53 Dose: 20 mg Rosuvastatin Calcium (Crestor -) 10 mg PO HS [facility] Last Admin: 08/29/17 22:41 Dose: 10 mg Tamsulosin HCl (Flomax -) 0.4 mg PO DAILY@0830 [facility] Last Admin: 08/29/17 08:08 Dose: 0.4 mg Tiotropium [place] (Spiriva -) 1 puff IH DAILY [facility] Last Admin: 08/29/17 09:50 Dose: 1 puff - Objective Vital Signs: Vital Signs Temperature 99.0 F 08/29/17 18:00 Pulse Rate 97 H 08/29/17 18:00 Respiratory Rate 20 08/29/17 18:00 Blood Pressure 143/73 08/29/17 18:00 O2 Sat by Pulse Oximetry (%) 96 08/29/17 09:00 Eyes: Yes: PERRL Neck: Yes: Supple Cardiovascular: Yes: Regular Rate and Rhythm, S1, S2 Respiratory: Yes: Diminished Gastrointestinal: Yes: Soft, Abdomen, Obese, Other (Post umbilical hernia repair ) Edema: No Problem List - Problems (1) Chronic pancreatitis Code(s): K86.1 - OTHER CHRONIC PANCREATITIS Qualifiers: Pancreatitis type: unspecified pancreatitis type Qualified Code(s): K86.1 - Other chronic pancreatitis (2) 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 Code(s): E10.8 - TYPE 1 DIABETES MELLITUS WITH UNSPECIFIED COMPLICATIONS (3) Hematuria Code(s): R31.9 - HEMATURIA, UNSPECIFIED (4) Renal calculus, left Code(s): N20.0 - CALCULUS OF KIDNEY (5) ASHD (arteriosclerotic heart disease) Code(s): I25.10 - ATHSCL HEART DISEASE OF [place] CORONARY ARTERY W/O ANG PCTRS (6) Abdominal pain Code(s): R10.9 - UNSPECIFIED ABDOMINAL PAIN Qualifiers: Abdominal location: upper abdomen, unspecified Qualified Code(s): R10.10 - Upper abdominal pain, unspecified (7) Acute on chronic diastolic (congestive) heart failure Code(s): I50.33 - ACUTE ON CHRONIC DIASTOLIC (CONGESTIVE) HEART FAILURE (8) Anemia Code(s): D64.9 - ANEMIA, UNSPECIFIED (9) Asthma Code(s): J45.909 - UNSPECIFIED ASTHMA, UNCOMPLICATED Qualifiers: Asthma severity: unspecified severity (10) Diabetes mellitus Code(s): E11.9 - TYPE 2 DIABETES MELLITUS WITHOUT COMPLICATIONS Qualifiers: Diabetes mellitus type: type 2 Diabetes mellitus complication detail: with unspecified neuropathy (11) Hypertension Code(s): I10 - ESSENTIAL (PRIMARY) HYPERTENSION Qualifiers: Hypertension type: essential hypertension Qualified Code(s): I10 - Essential (primary) hypertension (12) IPMN (intraductal papillary mucinous neoplasm) Code(s): D49.0 - NEOPLASM OF UNSPECIFIED BEHAVIOR OF DIGESTIVE SYSTEM (13) GRACIE (obstructive sleep apnea) Code(s): G47.33 - OBSTRUCTIVE SLEEP APNEA (ADULT) (PEDIATRIC) Assessment/Plan 1. Post-operative umbilical hernia repair 2. Chronic pancreatitis and esophagitis 3. Chronic atypical chest pain 4. CAD s/p [place], post PCI (stents), angina pectoris 6. HTN/HCVD 5. Hyperlipidemia 6. Diastolic dysfunction and pulmonary HTN 7. OSAS 8. COPD/Asthma 9. Acute on CKD resolving 10. Hematuria with left non-obstructive calculus PLAN: 1. Continue analgesics as needed 2. Bronchodilator, O2 as needed and empiric antibiotic coverage 3. ECG noted 4. ASA and Plavix given (as per medication list) 5. Amlodipine and Ramipril as tolerated Further plans are to follow Samuel Calvillo MD
[2017-08-30] MEDS: oxyCODONE HCL 5 MG TABLET PO PRN (01:50)
[2017-08-30] MEDS: SODIUM CHLORIDE 1,000 ML IV SCH ×2 (03:15→11:20)
[2017-08-30] MEDS: HYDROmorphone HCL CARPU-JECT 4 MG/1 ML DISP.SYRIN IVPB PRN ×5 (04:10→21:57)
[2017-08-30] MEDS ORDERED: PT OWN MED DRAWER 7, Y5N ONE ×2 (06:51→09:03)
[2017-08-30] MEDS: INSULIN SLIDING SCALE (NOVOLOG) 1 VIAL SQ SCH ×4 (06:57→22:04)
[2017-08-30 08:25] LABS: BASO % 0.6 % (0-2.0); EOS % 1.1 % (0-4.5); HEMATOCRIT 34.9 % (35.4-49); HEMOGLOBIN 11.4 GM/dL (11.7-16.9); LYMPH % 25.8 % (8-40); MCH 26.5 pg (25.7-33.7); MCHC 32.7 g/dl (32.0-35.9); MEAN CELL VOLUME 80.9 fl (80-96); MEAN PLT VOLUME 6.7 fl (7.5-11.1); MONO % 15.1 % (3.8-10.2); NEUT % 57.4 % (42.8-82.8); PLATELET COUNT 334 K/MM3 (134-434); RBC 4.32 M/mm3 (4.00-5.60); RDW 14.8 % (11.9-15.9); WHITE BLOOD COUNT 10.7 K/mm3 (4.0-10.0)
[2017-08-30 08:53] LABS: ALBUMIN 2.7 g/dl (3.4-5.0); ANION GAP 9 (8-16); BILIRUBIN,TOTAL 0.7 mg/dL (0.2-1.0); BLOOD UREA NITROGEN 12 mg/dL (7-18); CALCIUM 8.2 mg/dL (8.5-10.1); CHLORIDE 106 mmol/L (98-107); CO2 27 mmol/L (21-32); CREATININE 1.1 mg/dL (0.7-1.3); GLUCOSE,RANDOM 119 mg/dL (74-106); POTASSIUM 3.6 mmol/L (3.5-5.1); SGOT/AST 49 U/L (15-37); SGPT/ALT 47 U/L (12-78); SODIUM 142 mmol/L (136-145); TOT PROT 5.5 g/dl (6.4-8.2)
[2017-08-30 08:54] LABS: ALK PHOS 82 U/L (45-117)
[2017-08-30] MEDS: TAMSULOSIN HCL 0.4 MG CAP.ER.24H (FP) PO SCH (09:10)
[2017-08-30] MEDS: LIPASE/PROTEASE/AMYLASE 36,000 UNIT CAPSULE PO SCH ×3 (09:10→16:48)
[2017-08-30] MEDS: RAMIPRIL 5 MG CAPSULE (FP) PO SCH (09:10)
[2017-08-30] MEDS: BUDESONIDE/FORMETEROL FUMARATE 160/4.5 mcg INHALER IH SCH ×2 (09:11→21:57)
[2017-08-30] MEDS: TIOTROPIUM BROMIDE 18 MCG/INH (DEVICE W/ 5 CAPSULES) IH SCH (09:11)
[2017-08-30] MEDS: FINASTERIDE 5 MG TABLET (FP) PO SCH (09:11)
[2017-08-30] MEDS: PANTOPRAZOLE 40 MG TABLET (FP) PO SCH (09:12)
[2017-08-30] MEDS: GABAPENTIN 300 MG CAPSULE (FP) PO SCH (09:12)
[2017-08-30] MEDS: CLOPIDOGREL BISULFATE 75 MG TABLET (FP) PO SCH (09:12)
[2017-08-30] MEDS: EZETIMIBE 10 MG TABLET (FP) PO SCH (09:12)
[2017-08-30] MEDS: ASPIRIN COATED 81 MG TABLET.EC PO SCH (09:13)
[2017-08-30] MEDS: amLODIPine BESYLATE 2.5 MG TABLET (FP) PO SCH (09:13)
[2017-08-30] MEDS: POLYETHYLENE GLYCOL 3350 119 GM BTL PO SCH (09:14)
--- NOTE | 2017-08-30 10:17 | PN ---
Progress Note, Physician History of Present Illness: Reports incisional discomfort, hematuria resolved. - Current Medication List Current Medications: Active Medications Albuterol/Ipratropium (Duoneb -) 1 amp NEB Q6H PRN PRN Reason: SHORTNESS OF BREATH Last Admin: 08/29/17 20:35 Dose: 1 amp Amlodipine Besylate (Norvasc -) 5 mg PO DAILY [facility] Last Admin: 08/30/17 09:13 Dose: 5 mg Aspirin (Ecotrin -) 81 mg PO DAILY [facility] Last Admin: 08/30/17 09:13 Dose: 81 mg Budesonide/Formoterol Fumarate (Symbicort 160/4.5mcg -) 1 puff IH BID [facility] Last Admin: 08/30/17 09:11 Dose: 1 puff Clopidogrel Bisulfate (Plavix -) 75 mg PO DAILY [facility] Last Admin: 08/30/17 09:12 Dose: 75 mg Ezetimibe (Zetia -) 10 mg PO DAILY [facility] Last Admin: 08/30/17 09:12 Dose: 10 mg Finasteride (Proscar -) 5 mg PO DAILY [facility] Last Admin: 08/30/17 09:11 Dose: 5 mg Gabapentin (Neurontin -) 600 mg PO DAILY [facility] Last Admin: 08/30/17 09:12 Dose: 600 mg Gabapentin (Neurontin -) 800 mg PO HS [facility] Last Admin: 08/29/17 22:41 Dose: 800 mg Hydromorphone HCl (Dilaudid Injection -) 4 mg IVPB Q4H PRN PRN Reason: PAIN LEVEL 7 - 10 Last Admin: 08/30/17 09:12 Dose: 4 mg Sodium Chloride (Normal Saline -) 1,000 mls @ 75 mls/hr IV ASDIR [facility] Last Admin: 08/30/17 03:15 Dose: 75 mls/hr Insulin Aspart (Novolog Vial Sliding Scale -) 1 vial SQ ACHS [facility] PRN Reason: Protocol Last Admin: 08/30/17 06:57 Dose: Not Given Montelukast Sodium (Singulair -) 10 mg PO HS [facility] Last Admin: 08/29/17 22:41 Dose: 10 mg Ondansetron HCl (Zofran Injection) 4 mg IVPUSH Q6H PRN PRN Reason: NAUSEA AND/OR VOMITING Last Admin: 08/29/17 16:34 Dose: 4 mg Oxycodone HCl (Roxicodone -) 5 mg PO Q6H PRN PRN Reason: PAIN LEVEL 4 - 6 Last Admin: 08/30/17 01:50 Dose: 5 mg Pancrelipase (Creon Dr 36,000 Units Capsule) 1 cap PO TIDCM [facility] Last Admin: 08/30/17 09:10 Dose: 1 cap Pantoprazole Sodium (Protonix -) 40 mg PO DAILY [facility] Last Admin: 08/30/17 09:12 Dose: 40 mg Polyethylene Glycol (Miralax (For Daily Use) -) 17 gm PO DAILY [facility] Last Admin: 08/30/17 09:14 Dose: 17 grams Ramipril (Altace -) 20 mg PO DAILY [facility] Last Admin: 08/30/17 09:10 Dose: 20 mg Rosuvastatin Calcium (Crestor -) 10 mg PO HS [facility] Last Admin: 08/29/17 22:41 Dose: 10 mg Sodium Phosphate (Fleet Adult Rectal Enema -) 133 ml MS ONCE ONE Stop: 08/30/17 10:11 Tamsulosin HCl (Flomax -) 0.4 mg PO DAILY@0830 [facility] Last Admin: 08/30/17 09:10 Dose: 0.4 mg Tiotropium [place] (Spiriva -) 1 puff IH DAILY [facility] Last Admin: 08/30/17 09:11 Dose: 1 puff - Objective Vital Signs: Vital Signs Temperature 99 F 08/30/17 06:00 Pulse Rate 96 H 08/30/17 06:00 Respiratory Rate 20 08/30/17 06:00 Blood Pressure 150/82 08/30/17 06:00 O2 Sat by Pulse Oximetry (%) 96 08/29/17 21:00 Constitutional: Yes: No Distress, Calm Neck: Yes: Supple Cardiovascular: Yes: Regular Rate and Rhythm Respiratory: Yes: Regular, Diminished Gastrointestinal: Yes: Normal Bowel Sounds, Soft Edema: No Labs: CBC, BMP 08/30/17 08:10 08/30/17 08:10 INR, PTT INR 1.22 (0.82-1.09) H 08/21/17 06:55 Problem List - Problems (1) Chest pain Code(s): R07.9 - CHEST PAIN, UNSPECIFIED Qualifiers: Chest pain type: unspecified Qualified Code(s): R07.9 - Chest pain, unspecified (2) Chronic pancreatitis Code(s): K86.1 - OTHER CHRONIC PANCREATITIS Qualifiers: Pancreatitis type: unspecified pancreatitis type Qualified Code(s): K86.1 - Other chronic pancreatitis (3) Abdominal pain Code(s): R10.9 - UNSPECIFIED ABDOMINAL PAIN Qualifiers: Abdominal location: upper abdomen, unspecified Qualified Code(s): R10.10 - Upper abdominal pain, unspecified (4) Asthma Code(s): J45.909 - UNSPECIFIED ASTHMA, UNCOMPLICATED Qualifiers: Asthma severity: unspecified severity (5) COPD (chronic obstructive pulmonary disease) Code(s): J44.9 - CHRONIC OBSTRUCTIVE PULMONARY DISEASE, UNSPECIFIED (6) Chronic diastolic (congestive) heart failure Code(s): I50.32 - CHRONIC DIASTOLIC (CONGESTIVE) HEART FAILURE (7) Coronary artery disease Code(s): I25.10 - ATHSCL HEART DISEASE OF [place] CORONARY ARTERY W/O ANG PCTRS (8) Diabetes mellitus Code(s): E11.9 - TYPE 2 DIABETES MELLITUS WITHOUT COMPLICATIONS Qualifiers: Diabetes mellitus type: type 2 Diabetes mellitus complication detail: with unspecified neuropathy (9) Esophagitis determined by endoscopy Code(s): K20.9 - ESOPHAGITIS, UNSPECIFIED (10) Hyperlipidemia Code(s): E78.5 - HYPERLIPIDEMIA, UNSPECIFIED (11) Hypertension Code(s): I10 - ESSENTIAL (PRIMARY) HYPERTENSION Qualifiers: Hypertension type: essential hypertension Qualified Code(s): I10 - Essential (primary) hypertension (12) Hypertension associated with diabetes Code(s): E11.59 - TYPE 2 DIABETES MELLITUS WITH OTH CIRCULATORY COMPLICATIONS; I10 - ESSENTIAL (PRIMARY) HYPERTENSION (13) IPMN (intraductal papillary mucinous neoplasm) Code(s): D49.0 - NEOPLASM OF UNSPECIFIED BEHAVIOR OF DIGESTIVE SYSTEM (14) Myocardial infarct Code(s): I21.3 - ST ELEVATION (STEMI) MYOCARDIAL INFARCTION OF UNSP SITE (15) GRACIE (obstructive sleep apnea) Code(s): G47.33 - OBSTRUCTIVE SLEEP APNEA (ADULT) (PEDIATRIC) (16) Type 2 diabetes mellitus with diabetic neuropathy Code(s): E11.40 - TYPE 2 DIABETES MELLITUS WITH DIABETIC NEUROPATHY, UNSP (17) Renal calculus, left Code(s): N20.0 - CALCULUS OF KIDNEY (18) Umbilical hernia Code(s): K42.9 - UMBILICAL HERNIA WITHOUT OBSTRUCTION OR GANGRENE Qualifiers: Obstruction and gangrene presence: without obstruction or gangrene Qualified Code(s): K42.9 - Umbilical hernia without obstruction or gangrene (19) S/P lumbar spinal fusion Code(s): Z98.1 - ARTHRODESIS STATUS (20) Tracheostomy in place Code(s): Z98.89 - OTHER SPECIFIED POSTPROCEDURAL STATES * DO NOT USE * (21) H/O umbilical hernia repair Code(s): Z98.890 - OTHER SPECIFIED POSTPROCEDURAL STATES; Z87.19 - PERSONAL HISTORY OF OTHER DISEASES OF THE DIGESTIVE SYSTEM Assessment/Plan 1. POD #4 Open repair of incarcerated umbilical hernia, lysis of adhesions, omentectomy 2. Chronic pancreatitis and esophagitis 3. Chronic atypical chest pain 4. CAD s/p DC, post PCI (stents), angina pectoris 6. HTN/HCVD 5. Hyperlipidemia 6. Diastolic dysfunction and pulmonary HTN 7. OSAS 8. COPD/Asthma 9. Acute on CKD resolving 10. Hematuria with left non-obstructive calculus resolving 11. L5-S1 lumbosacral radiculopathy PLAN: 1. Bronchodilator, O2 as needed, singulair and empiric antibiotic coverage 2. Continue ASA 81 qd and Plavix 75 qd, Norvasc 5 qd, Zetia 10 qd, Altace 20 qd , and Crestor 10 qhs 3. DVT and GI prophylaxis
[2017-08-30] MEDS ORDERED: SODIUM PHOSPHATE/NA BIPHOS 133 ML ENEMA PR ONE (10:45)
--- NOTE | 2017-08-30 12:13 | PN ---
Progress Note, Physician Chief Complaint: Pneumonia, Hematuria, Umbilical hernia History of Present Illness: -resting in bed complaining of abdominal pain vomiting brown matter yesterday CT abd shows partial SBO - Current Medication List Current Medications: Active Medications Albuterol/Ipratropium (Duoneb -) 1 amp NEB Q6H PRN PRN Reason: SHORTNESS OF BREATH Last Admin: 08/29/17 20:35 Dose: 1 amp Amlodipine Besylate (Norvasc -) 5 mg PO DAILY [facility] Last Admin: 08/30/17 09:13 Dose: 5 mg Aspirin (Ecotrin -) 81 mg PO DAILY [facility] Last Admin: 08/30/17 09:13 Dose: 81 mg Budesonide/Formoterol Fumarate (Symbicort 160/4.5mcg -) 1 puff IH BID [facility] Last Admin: 08/30/17 09:11 Dose: 1 puff Clopidogrel Bisulfate (Plavix -) 75 mg PO DAILY [facility] Last Admin: 08/30/17 09:12 Dose: 75 mg Ezetimibe (Zetia -) 10 mg PO DAILY [facility] Last Admin: 08/30/17 09:12 Dose: 10 mg Finasteride (Proscar -) 5 mg PO DAILY [facility] Last Admin: 08/30/17 09:11 Dose: 5 mg Gabapentin (Neurontin -) 600 mg PO DAILY [facility] Last Admin: 08/30/17 09:12 Dose: 600 mg Gabapentin (Neurontin -) 800 mg PO HS [facility] Last Admin: 08/29/17 22:41 Dose: 800 mg Heparin Sodium (Porcine) (Heparin -) 5,000 unit SQ BID [facility] Hydromorphone HCl (Dilaudid Injection -) 4 mg IVPUSH Q4H PRN PRN Reason: PAIN Dextrose/Lactated Ringer's (D5-Lr+20 Meq Kcl -) 20 meq in 1,000 mls @ 75 mls/ hr IV ASDIR MARK Pantoprazole Sodium 40 mg/ (Sodium Chloride) 100 mls @ 200 mls/hr IVPB DAILY [facility] Insulin Aspart (Novolog Vial Sliding Scale -) 1 vial SQ ACHS [facility] PRN Reason: Protocol Last Admin: 08/30/17 11:19 Dose: Not Given Montelukast Sodium (Singulair -) 10 mg PO HS [facility] Last Admin: 08/29/17 22:41 Dose: 10 mg Ondansetron HCl (Zofran Injection) 4 mg IVPUSH Q6H PRN PRN Reason: NAUSEA AND/OR VOMITING Last Admin: 08/29/17 16:34 Dose: 4 mg Oxycodone HCl (Roxicodone -) 5 mg PO Q6H PRN PRN Reason: PAIN LEVEL 4 - 6 Last Admin: 08/30/17 01:50 Dose: 5 mg Pancrelipase (Creon Dr 36,000 Units Capsule) 1 cap PO TIDCM [facility] Last Admin: 08/30/17 11:20 Dose: 1 cap Polyethylene Glycol (Miralax (For Daily Use) -) 17 gm PO DAILY [facility] Last Admin: 08/30/17 09:14 Dose: 17 grams Ramipril (Altace -) 20 mg PO DAILY [facility] Last Admin: 08/30/17 09:10 Dose: 20 mg Rosuvastatin Calcium (Crestor -) 10 mg PO HS [facility] Last Admin: 08/29/17 22:41 Dose: 10 mg Tamsulosin HCl (Flomax -) 0.4 mg PO DAILY@0830 [facility] Last Admin: 08/30/17 09:10 Dose: 0.4 mg Tiotropium [place] (Spiriva -) 1 puff IH DAILY [facility] Last Admin: 08/30/17 09:11 Dose: 1 puff - Objective Vital Signs: Vital Signs Temperature 99 F 08/30/17 06:00 Pulse Rate 96 H 08/30/17 06:00 Respiratory Rate 20 08/30/17 06:00 Blood Pressure 150/82 08/30/17 06:00 O2 Sat by Pulse Oximetry (%) 96 08/29/17 21:00 Constitutional: Yes: Well Nourished, Calm, Mild Distress Cardiovascular: Yes: Regular Rate and Rhythm Respiratory: Yes: Regular Gastrointestinal: Yes: Distention, Hypoactive Bowel Sounds, Tenderness Musculoskeletal: Yes: Back Pain Extremities: Yes: WNL Edema: No Peripheral Pulses WNL: Yes Neurological: Yes: Alert, Oriented Psychiatric: Yes: Alert, Oriented Labs: CBC, BMP 08/30/17 08:10 08/30/17 08:10 INR, PTT INR 1.22 (0.82-1.09) H 08/21/17 06:55 Problem List - Problems (1) Hematuria Assessment/Plan: -seen by Urology -UA +3 blood -UC negative -has BPH, on tamsulosin and finestride -CT abdomen/pelvis reviewed -H/H stable -urine clear now Code(s): R31.9 - HEMATURIA, UNSPECIFIED (2) Pneumonia Assessment/Plan: resolved Code(s): J18.9 - PNEUMONIA, UNSPECIFIED ORGANISM Qualifiers: Pneumonia type: due to unspecified organism Laterality: right Lung location: unspecified part of lung Qualified Code(s): J18.9 - Pneumonia, unspecified organism (3) Umbilical hernia Assessment/Plan: -seen by GI surgery Code(s): K42.9 - UMBILICAL HERNIA WITHOUT OBSTRUCTION OR GANGRENE Qualifiers: Obstruction and gangrene presence: without obstruction or gangrene Qualified Code(s): K42.9 - Umbilical hernia without obstruction or gangrene (4) ASHD (arteriosclerotic heart disease) Assessment/Plan: -seen by Cardiology Code(s): I25.10 - ATHSCL HEART DISEASE OF [place] CORONARY ARTERY W/O ANG PCTRS (5) SBO (small bowel obstruction) Assessment/Plan: -pain management -NGT -NPO -notified GI and GI surgery -IVF- D5 -abd xray in AM -labs in AM Code(s): K56.609 - UNSP INTESTNL OBST, UNSP TO PARTIAL VERSUS COMPLETE OBST Assessment/Plan see problem list
[2017-08-30] MEDS ORDERED: diazePAM CARPU-JECT 10 MG/2 ML DISP.SYRIN IVPUSH ONE (12:23)
--- NOTE | 2017-08-30 13:23 | PROC ---
Procedure Note Procedure: POD #4 s/p Open repair of incarcerated umbilical hernia, lysis of adhesions, omentectomy. Patient +N/V. Distended abd. +feculent vomit ~ 500cc while inserting tube. NGT inserted --> 1100 in cannister. Placed on LWCS at 100mmHg. Tolerated procedure well.
[2017-08-30] MEDS: D5-LR+20 MEQ KCL - 20 MEQ/1,000 ML INFUS.BAG IV SCH (13:45)
[2017-08-30] MEDS: HEPARIN NA (PORCINE) 5,000 UNITS/ML 1ML VIAL SQ SCH ×2 (16:56→22:11)
[2017-08-30] MEDS: Methylnaltrexone Bromide 12 MG/0.6 ML KIT SQ SCH (16:56)
--- NOTE | 2017-08-30 19:14 | PN ---
Progress Note (short form) - Note Progress Note: POD 4 Developed nausea and vomiting Abdomen became more distended Vital Signs Period Temp Pulse Resp BP Sys/Gates Pulse Ox Last 24 Hr 98.1 F-99 F 94-96 20-20 146-150/77-82 96 NG tube placed After placement, abdomen no longer distended and the patient is more comfortable Abd soft, NT ND, dressing in place AXR- contrast in colon Ileus Limit narcotics Ambulation NG tube to 80 mmHg continuous Serial abdominal exms and xrays Problem List - Problems (1) Umbilical hernia Code(s): K42.9 - UMBILICAL HERNIA WITHOUT OBSTRUCTION OR GANGRENE Qualifiers: Obstruction and gangrene presence: without obstruction or gangrene Qualified Code(s): K42.9 - Umbilical hernia without obstruction or gangrene
[2017-08-30] MEDS ORDERED: MAGNESIUM CITRATE 300 ML BOTTLE PO ONE (19:30)
[2017-08-30] MEDS: GABAPENTIN 400 MG CAPSULE (FP) PO SCH (22:02)
[2017-08-30] MEDS: ROSUVASTATIN CA 10 MG TABLET (FP) PO SCH (22:02)
[2017-08-30] MEDS: MONTELUKAST NA 10 MG TABLET PO SCH (22:11)
--- NOTE | 2017-08-30 23:15 | EKG ---
Test Reason : Blood Pressure : / mmHG Vent. Rate : 088 BPM Atrial Rate : 088 BPM P-R Int : 156 ms QRS Dur : 084 ms QT Int : 378 ms P-R-T Axes : 052 004 011 degrees QTc Int : 457 ms SINUS RHYTHM WITH PREMATURE ATRIAL COMPLEXES OTHERWISE NORMAL ECG WHEN COMPARED WITH ECG OF 29-AUG-2017 10:15, PREMATURE VENTRICULAR COMPLEXES ARE NO LONGER PRESENT QT HAS SHORTENED Confirmed by CLARE BULLARD, VICTOR HUGO ([id number]) on 08/30/2017 11:14:41 PM Referred By: MADYSON THOMPSON Confirmed By:VICTOR HUGO SPARKS MD
[2017-08-31] MEDS: HYDROmorphone HCL CARPU-JECT 4 MG/1 ML DISP.SYRIN IVPB PRN ×5 (02:07→19:52)
[2017-08-31] MEDS: D5-LR+20 MEQ KCL - 20 MEQ/1,000 ML INFUS.BAG IV SCH ×3 (03:30→21:56)
[2017-08-31] MEDS: INSULIN SLIDING SCALE (NOVOLOG) 1 VIAL SQ SCH ×4 (06:11→21:57)
[2017-08-31 08:38] LABS: BASO % 0.4 % (0-2.0); HEMATOCRIT 34.3 % (35.4-49); HEMOGLOBIN 11.2 GM/dL (11.7-16.9); LYMPH % 35.7 % (8-40); MCH 26.2 pg (25.7-33.7); MCHC 32.6 g/dl (32.0-35.9); MEAN CELL VOLUME 80.6 fl (80-96); MONO % 18.6 % (3.8-10.2); NEUT % 44.3 % (42.8-82.8); PLATELET COUNT 277 K/MM3 (134-434); RBC 4.25 M/mm3 (4.00-5.60); RDW 14.4 % (11.9-15.9)
[2017-08-31 08:39] LABS: ALBUMIN 2.7 g/dl (3.4-5.0); ANION GAP 5 (8-16); BILIRUBIN,TOTAL 0.7 mg/dL (0.2-1.0); BLOOD UREA NITROGEN 11 mg/dL (7-18); CALCIUM 8.2 mg/dL (8.5-10.1); CHLORIDE 107 mmol/L (98-107); CO2 32 mmol/L (21-32); GLUCOSE,RANDOM 106 mg/dL (74-106); SGPT/ALT 47 U/L (12-78); SODIUM 144 mmol/L (136-145)
[2017-08-31 08:40] LABS: ALK PHOS 81 U/L (45-117); TOT PROT 5.6 g/dl (6.4-8.2)
[2017-08-31 08:42] LABS: WHITE BLOOD COUNT 12.3 K/mm3 (4.0-10.0)
[2017-08-31 08:43] LABS: POTASSIUM 3.3 mmol/L (3.5-5.1); SGOT/AST 39 U/L (15-37)
[2017-08-31] MEDS: LIPASE/PROTEASE/AMYLASE 36,000 UNIT CAPSULE PO SCH ×3 (09:33→17:39)
[2017-08-31] MEDS: RAMIPRIL 5 MG CAPSULE (FP) PO SCH (09:33)
[2017-08-31] MEDS: ASPIRIN COATED 81 MG TABLET.EC PO SCH (09:33)
[2017-08-31] MEDS: TAMSULOSIN HCL 0.4 MG CAP.ER.24H (FP) PO SCH (09:33)
[2017-08-31] MEDS: EZETIMIBE 10 MG TABLET (FP) PO SCH (09:34)
[2017-08-31] MEDS: CLOPIDOGREL BISULFATE 75 MG TABLET (FP) PO SCH (09:34)
[2017-08-31] MEDS: POLYETHYLENE GLYCOL 3350 119 GM BTL PO SCH (09:34)
[2017-08-31] MEDS: FINASTERIDE 5 MG TABLET (FP) PO SCH (09:34)
[2017-08-31] MEDS: GABAPENTIN 300 MG CAPSULE (FP) PO SCH (09:34)
[2017-08-31] MEDS: amLODIPine BESYLATE 2.5 MG TABLET (FP) PO SCH (09:34)
[2017-08-31] MEDS ORDERED: PANTOPRAZOLE SODIUM 40 MG in SODIUM CHLORIDE 100 ML IVPB SCH (10:00)
[2017-08-31] MEDS ORDERED: PT OWN MED DRAWER 7, Y5N ONE (10:29)
[2017-08-31] MEDS: PANTOPRAZOLE SODIUM 40 MG VIAL IVPUSH SCH (10:34)
[2017-08-31] MEDS: HEPARIN NA (PORCINE) 5,000 UNITS/ML 1ML VIAL SQ SCH ×2 (10:34→21:49)
[2017-08-31] MEDS: TIOTROPIUM BROMIDE 18 MCG/INH (DEVICE W/ 5 CAPSULES) IH SCH (10:35)
[2017-08-31] MEDS: BUDESONIDE/FORMETEROL FUMARATE 160/4.5 mcg INHALER IH SCH ×2 (10:35→22:00)
--- NOTE | 2017-08-31 12:31 | PN ---
Progress Note, Physician Chief Complaint: Pneumonia, Hematuria, Umbilical hernia History of Present Illness: NAD sitting at the edge of the bed, going for abdominal Xray NPO NGT output 3600 ml since NGT insertion Abdomen less distended - Current Medication List Current Medications: Active Medications Albuterol/Ipratropium (Duoneb -) 1 amp NEB Q6H PRN PRN Reason: SHORTNESS OF BREATH Last Admin: 08/29/17 20:35 Dose: 1 amp Amlodipine Besylate (Norvasc -) 5 mg PO DAILY [facility] Last Admin: 08/31/17 09:34 Dose: Not Given Aspirin (Ecotrin -) 81 mg PO DAILY [facility] Last Admin: 08/31/17 09:33 Dose: Not Given Budesonide/Formoterol Fumarate (Symbicort 160/4.5mcg -) 1 puff IH BID [facility] Last Admin: 08/31/17 10:35 Dose: Not Given Clopidogrel Bisulfate (Plavix -) 75 mg PO DAILY [facility] Last Admin: 08/31/17 09:34 Dose: Not Given Ezetimibe (Zetia -) 10 mg PO DAILY [facility] Last Admin: 08/31/17 09:34 Dose: Not Given Finasteride (Proscar -) 5 mg PO DAILY [facility] Last Admin: 08/31/17 09:34 Dose: Not Given Gabapentin (Neurontin -) 600 mg PO DAILY [facility] Last Admin: 08/31/17 09:34 Dose: Not Given Gabapentin (Neurontin -) 800 mg PO HS [facility] Last Admin: 08/30/17 22:02 Dose: Not Given Heparin Sodium (Porcine) (Heparin -) 5,000 unit SQ BID [facility] Last Admin: 08/31/17 10:34 Dose: 5,000 unit Hydromorphone HCl (Dilaudid Injection -) 4 mg IVPB Q4H PRN PRN Reason: PAIN Last Admin: 08/31/17 10:37 Dose: 4 mg Dextrose/Lactated Ringer's (D5-Lr+20 Meq Kcl -) 20 meq in 1,000 mls @ 75 mls/ hr IV ASDIR [facility] Last Admin: 08/31/17 03:30 Dose: 75 mls/hr Insulin Aspart (Novolog Vial Sliding Scale -) 1 vial SQ ACHS [facility] PRN Reason: Protocol Last Admin: 08/31/17 10:46 Dose: Not Given Methylnaltrexone [place] (Relistor -) 8 mg SQ DAILY [facility] Last Admin: 08/30/17 16:56 Dose: 8 mg Montelukast Sodium (Singulair -) 10 mg PO [facility] Last Admin: 08/30/17 22:11 Dose: Not Given Ondansetron HCl (Zofran Injection) 4 mg IVPUSH Q6H PRN PRN Reason: NAUSEA AND/OR VOMITING Last Admin: 08/29/17 16:34 Dose: 4 mg Oxycodone HCl (Roxicodone -) 5 mg PO Q6H PRN PRN Reason: PAIN LEVEL 4 - 6 Last Admin: 08/30/17 01:50 Dose: 5 mg Pancrelipase (Creon Dr 36,000 Units Capsule) 1 cap PO TIDCM [facility] Last Admin: 08/31/17 09:33 Dose: Not Given Pantoprazole Sodium (Protonix Iv) 40 mg IVPUSH DAILY [facility] Last Admin: 08/31/17 10:34 Dose: 40 mg Polyethylene Glycol (Miralax (For Daily Use) -) 17 gm PO DAILY [facility] Last Admin: 08/31/17 09:34 Dose: Not Given Ramipril (Altace -) 20 mg PO DAILY [facility] Last Admin: 08/31/17 09:33 Dose: Not Given Rosuvastatin Calcium (Crestor -) 10 mg PO [facility] Last Admin: 08/30/17 22:02 Dose: Not Given Tamsulosin HCl (Flomax -) 0.4 mg PO DAILY@0830 [facility] Last Admin: 08/31/17 09:33 Dose: Not Given Tiotropium [place] (Spiriva -) 1 puff IH DAILY [facility] Last Admin: 08/31/17 10:35 Dose: Not Given - Objective Vital Signs: Vital Signs Temperature 98.6 F 08/31/17 06:00 Pulse Rate 84 08/31/17 06:00 Respiratory Rate 18 08/31/17 06:00 Blood Pressure 140/89 08/31/17 06:00 O2 Sat by Pulse Oximetry (%) 95 08/30/17 21:00 Constitutional: Yes: Well Nourished, No Distress, Calm Cardiovascular: Yes: Regular Rate and Rhythm Respiratory: Yes: Regular Gastrointestinal: Yes: Soft, Abdomen, Obese, Hypoactive Bowel Sounds Musculoskeletal: Yes: Back Pain Extremities: Yes: WNL Edema: No Peripheral Pulses WNL: Yes Neurological: Yes: Alert, Oriented Psychiatric: Yes: Alert, Oriented Labs: CBC, BMP 08/31/17 07:20 08/31/17 07:20 INR, PTT INR 1.22 (0.82-1.09) H 08/21/17 06:55 Problem List - Problems (1) Hematuria Assessment/Plan: -seen by Urology -UA +3 blood -UC negative -has BPH, tamsulosin and finestride on hold -CT abdomen/pelvis shows SBO -H/H stable -urine clear now Code(s): R31.9 - HEMATURIA, UNSPECIFIED (2) Pneumonia Assessment/Plan: resolved Code(s): J18.9 - PNEUMONIA, UNSPECIFIED ORGANISM Qualifiers: Pneumonia type: due to unspecified organism Laterality: right Lung location: unspecified part of lung Qualified Code(s): J18.9 - Pneumonia, unspecified organism (3) Umbilical hernia Assessment/Plan: -seen by GI surgery Code(s): K42.9 - UMBILICAL HERNIA WITHOUT OBSTRUCTION OR GANGRENE Qualifiers: Obstruction and gangrene presence: without obstruction or gangrene Qualified Code(s): K42.9 - Umbilical hernia without obstruction or gangrene (4) ASHD (arteriosclerotic heart disease) Assessment/Plan: -seen by Cardiology -Plavix on hold -heparin BID Code(s): I25.10 - ATHSCL HEART DISEASE OF [place] CORONARY ARTERY W/O ANG PCTRS (5) SBO (small bowel obstruction) Assessment/Plan: -pain management -NGT -NPO -notified GI and GI surgery -IVF- D5 -abd xray today -labs in AM Code(s): K56.609 - UNSP INTESTNL OBST, UNSP TO PARTIAL VERSUS COMPLETE OBST Assessment/Plan see problem list
--- NOTE | 2017-08-31 13:14 | PN ---
Progress Note, Physician Chief Complaint: Events noted Post umbilical hernia repair - complains of post op abdominal incisional pain Post NGT suction as outlined History of Present Illness: Patient was seen and examined. Awake and alert. Chart was reviewed Denies chest pain, SOB or palpitations As outlined above. Tolerating with analgesics PRN - Current Medication List Current Medications: Active Medications Albuterol/Ipratropium (Duoneb -) 1 amp NEB Q6H PRN PRN Reason: SHORTNESS OF BREATH Last Admin: 08/29/17 20:35 Dose: 1 amp Amlodipine Besylate (Norvasc -) 5 mg PO DAILY [facility] Last Admin: 08/31/17 09:34 Dose: Not Given Aspirin (Ecotrin -) 81 mg PO DAILY [facility] Last Admin: 08/31/17 09:33 Dose: Not Given Budesonide/Formoterol Fumarate (Symbicort 160/4.5mcg -) 1 puff IH BID [facility] Last Admin: 08/31/17 10:35 Dose: Not Given Clopidogrel Bisulfate (Plavix -) 75 mg PO DAILY [facility] Last Admin: 08/31/17 09:34 Dose: Not Given Ezetimibe (Zetia -) 10 mg PO DAILY [facility] Last Admin: 08/31/17 09:34 Dose: Not Given Finasteride (Proscar -) 5 mg PO DAILY [facility] Last Admin: 08/31/17 09:34 Dose: Not Given Gabapentin (Neurontin -) 600 mg PO DAILY [facility] Last Admin: 08/31/17 09:34 Dose: Not Given Gabapentin (Neurontin -) 800 mg PO HS [facility] Last Admin: 08/30/17 22:02 Dose: Not Given Heparin Sodium (Porcine) (Heparin -) 5,000 unit SQ BID [facility] Last Admin: 08/31/17 10:34 Dose: 5,000 unit Hydromorphone HCl (Dilaudid Injection -) 4 mg IVPB Q4H PRN PRN Reason: PAIN Last Admin: 08/31/17 10:37 Dose: 4 mg Dextrose/Lactated Ringer's (D5-Lr+20 Meq Kcl -) 20 meq in 1,000 mls @ 75 mls/ hr IV ASDIR [facility] Last Admin: 08/31/17 03:30 Dose: 75 mls/hr Potassium Chloride 10 meq/ (Sodium Chloride) 105 mls @ 100 mls/hr IVPB Q60M [facility] Stop: 08/31/17 15:29 Insulin Aspart (Novolog Vial Sliding Scale -) 1 vial SQ ACHS [facility] PRN Reason: Protocol Last Admin: 08/31/17 10:46 Dose: Not Given Methylnaltrexone [place] (Relistor -) 8 mg SQ DAILY [facility] Last Admin: 08/30/17 16:56 Dose: 8 mg Montelukast Sodium (Singulair -) 10 mg PO HS [facility] Last Admin: 08/30/17 22:11 Dose: Not Given Ondansetron HCl (Zofran Injection) 4 mg IVPUSH Q6H PRN PRN Reason: NAUSEA AND/OR VOMITING Last Admin: 08/29/17 16:34 Dose: 4 mg Pancrelipase (Creon Dr 36,000 Units Capsule) 1 cap PO TIDCM [facility] Last Admin: 08/31/17 12:29 Dose: Not Given Pantoprazole Sodium (Protonix Iv) 40 mg IVPUSH DAILY [facility] Last Admin: 08/31/17 10:34 Dose: 40 mg Polyethylene Glycol (Miralax (For Daily Use) -) 17 gm PO DAILY [facility] Last Admin: 08/31/17 09:34 Dose: Not Given Ramipril (Altace -) 20 mg PO DAILY [facility] Last Admin: 08/31/17 09:33 Dose: Not Given Rosuvastatin Calcium (Crestor -) 10 mg PO [facility] Last Admin: 08/30/17 22:02 Dose: Not Given Tamsulosin HCl (Flomax -) 0.4 mg PO DAILY@0830 [facility] Last Admin: 08/31/17 09:33 Dose: Not Given Tiotropium [place] (Spiriva -) 1 puff IH DAILY [facility] Last Admin: 08/31/17 10:35 Dose: Not Given - Objective Vital Signs: Vital Signs Temperature 98.5 F 08/31/17 08:00 Pulse Rate 83 08/31/17 08:00 Respiratory Rate 20 08/31/17 08:00 Blood Pressure 162/82 08/31/17 08:00 O2 Sat by Pulse Oximetry (%) 95 08/31/17 08:00 HENT: Yes: Atraumatic Neck: Yes: Supple Cardiovascular: Yes: Regular Rate and Rhythm, S1, S2 Respiratory: Yes: CTA Bilaterally Gastrointestinal: Yes: Soft, Abdomen, Obese, Tenderness Edema: No Labs: CBC, BMP 08/31/17 07:20 08/31/17 07:20 Problem List - Problems (1) Chronic pancreatitis Code(s): K86.1 - OTHER CHRONIC PANCREATITIS Qualifiers: Pancreatitis type: unspecified pancreatitis type Qualified Code(s): K86.1 - Other chronic pancreatitis (2) 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 Code(s): E10.8 - TYPE 1 DIABETES MELLITUS WITH UNSPECIFIED COMPLICATIONS (3) Hematuria Code(s): R31.9 - HEMATURIA, UNSPECIFIED (4) Renal calculus, left Code(s): N20.0 - CALCULUS OF KIDNEY (5) ASHD (arteriosclerotic heart disease) Code(s): I25.10 - ATHSCL HEART DISEASE OF [place] CORONARY ARTERY W/O ANG PCTRS (6) Abdominal pain Code(s): R10.9 - UNSPECIFIED ABDOMINAL PAIN Qualifiers: Abdominal location: upper abdomen, unspecified Qualified Code(s): R10.10 - Upper abdominal pain, unspecified (7) Acute on chronic diastolic (congestive) heart failure Code(s): I50.33 - ACUTE ON CHRONIC DIASTOLIC (CONGESTIVE) HEART FAILURE (8) Anemia Code(s): D64.9 - ANEMIA, UNSPECIFIED (9) Asthma Code(s): J45.909 - UNSPECIFIED ASTHMA, UNCOMPLICATED Qualifiers: Asthma severity: unspecified severity (10) Diabetes mellitus Code(s): E11.9 - TYPE 2 DIABETES MELLITUS WITHOUT COMPLICATIONS Qualifiers: Diabetes mellitus type: type 2 Diabetes mellitus complication detail: with unspecified neuropathy (11) Hypertension Code(s): I10 - ESSENTIAL (PRIMARY) HYPERTENSION Qualifiers: Hypertension type: essential hypertension Qualified Code(s): I10 - Essential (primary) hypertension (12) IPMN (intraductal papillary mucinous neoplasm) Code(s): D49.0 - NEOPLASM OF UNSPECIFIED BEHAVIOR OF DIGESTIVE SYSTEM (13) GRACIE (obstructive sleep apnea) Code(s): G47.33 - OBSTRUCTIVE SLEEP APNEA (ADULT) (PEDIATRIC) Assessment/Plan 1. Post-operative umbilical hernia repair - post NGT decompression 2. Chronic pancreatitis and esophagitis 3. Chronic atypical chest pain 4. CAD s/p GA, post PCI (stents), angina pectoris 6. HTN/HCVD 5. Hyperlipidemia 6. Diastolic dysfunction and pulmonary HTN 7. OSAS 8. COPD/Asthma 9. Acute on CKD resolving 10. Hematuria with left non-obstructive calculus PLAN: 1. Continue analgesics as needed 2. Bronchodilator, O2 as needed and empiric antibiotic coverage 3. ECG noted 4. ASA and Plavix held, but to be restarted when cleared by Surgery 5. Amlodipine and Ramipril as tolerated 6. NG Further plans are to follow Samuel Calvillo MD
[2017-08-31] MEDS: Methylnaltrexone Bromide 12 MG/0.6 ML KIT SQ SCH (13:50)
[2017-08-31] MEDS: POTASSIUM CHLORIDE 10 MEQ in SODIUM CHLORIDE 100 ML IVPB SCH ×3 (13:51→17:38)
--- NOTE | 2017-08-31 14:48 | PN ---
Progress Note (short form) - Note Progress Note: No acute events Passed some flatus and BM NG tube in place Abdomen not distended; no pain Vital Signs Period Temp Pulse Resp BP Sys/Gates Pulse Ox Last 24 Hr 98.1 F-98.8 F 82-94 18-20 128-162/71-89 95-95 Abd soft, ND, NT CBC, BMP 08/31/17 07:20 08/31/17 07:20 AXR- dilated loops NG tube Ambulate Bowel regimen Await further bowel function Problem List - Problems (1) Umbilical hernia Code(s): K42.9 - UMBILICAL HERNIA WITHOUT OBSTRUCTION OR GANGRENE Qualifiers: Obstruction and gangrene presence: without obstruction or gangrene Qualified Code(s): K42.9 - Umbilical hernia without obstruction or gangrene
[2017-08-31] MEDS ORDERED: MAGNESIUM CITRATE 300 ML BOTTLE PO ONE (15:00)
--- NOTE | 2017-08-31 17:39 | PATH ---
Surgical Pathology Report Patient Name: HERBERT COTTON [facility]. Rec. #: [id number] /Age/Gender: 1955 (Age: 61) / M Account: [id number] Location: [address] [place] [address] Taken: 08/27/2017 Received: 08/27/2017 Reported: 08/31/2017 Physicians: Connor Ervin M.D. Specimen(s) Received PORTION OF OMENTUM Clinical History Incarcerated umbilical hernia Final Diagnosis PORTION OF OMENTUM, EXCISION: MESOTHELIAL LINED FIBROMEMBRANOUS TISSUE AND OMENTAL ADIPOSE TISSUE CONSISTENT WITH HERNIA SAC AND CONTENTS. Electronically Signed Selina Rice M.D. Gross Description Received in formalin labeled "portion of omentum," is a 6.5 x 4.5 x 1.4 cm aggregate of diaz alicea fibromembranous tissue with attached yellow, lobulated adipose tissue, consistent with a hernia sac. A event representative section is submitted in one cassette. 08/30/2017 [facility]08/30/2017
[2017-08-31] MEDS: MONTELUKAST NA 10 MG TABLET PO SCH (21:50)
[2017-08-31] MEDS: ROSUVASTATIN CA 10 MG TABLET (FP) PO SCH (21:50)
[2017-08-31] MEDS: GABAPENTIN 400 MG CAPSULE (FP) PO SCH (21:50)
[2017-09-01] MEDS: HYDROmorphone HCL CARPU-JECT 4 MG/1 ML DISP.SYRIN IVPB PRN ×6 (00:41→22:08)
[2017-09-01] MEDS: INSULIN SLIDING SCALE (NOVOLOG) 1 VIAL SQ SCH ×4 (06:13→22:08)
[2017-09-01] MEDS: D5-LR+20 MEQ KCL - 20 MEQ/1,000 ML INFUS.BAG IV SCH (06:14)
[2017-09-01 08:08] LABS: BASO % 0.6 % (0-2.0); EOS % 0.9 % (0-4.5); HEMATOCRIT 35.3 % (35.4-49); HEMOGLOBIN 11.4 GM/dL (11.7-16.9); LYMPH % 33.5 % (8-40); MCHC 32.2 g/dl (32.0-35.9); MEAN CELL VOLUME 80.6 fl (80-96); PLATELET COUNT 338 K/MM3 (134-434); RBC 4.38 M/mm3 (4.00-5.60); RDW 14.2 % (11.9-15.9)
[2017-09-01 08:38] LABS: ALBUMIN 2.8 g/dl (3.4-5.0); ANION GAP 9 (8-16); BLOOD UREA NITROGEN 7 mg/dL (7-18); CALCIUM 8.3 mg/dL (8.5-10.1); CHLORIDE 102 mmol/L (98-107); CO2 30 mmol/L (21-32); GLUCOSE,RANDOM 190 mg/dL (74-106); POTASSIUM 3.3 mmol/L (3.5-5.1); SODIUM 141 mmol/L (136-145)
[2017-09-01 08:41] LABS: ALK PHOS 86 U/L (45-117); CREATININE 0.9 mg/dL (0.7-1.3); SGOT/AST 31 U/L (15-37); SGPT/ALT 39 U/L (12-78); TOT PROT 5.7 g/dl (6.4-8.2)
[2017-09-01] MEDS: LIPASE/PROTEASE/AMYLASE 36,000 UNIT CAPSULE PO SCH ×3 (09:03→17:02)
[2017-09-01] MEDS: TAMSULOSIN HCL 0.4 MG CAP.ER.24H (FP) PO SCH (09:55)
[2017-09-01] MEDS: ONDANSETRON 4 MG/2 ML VIAL IVPUSH PRN (09:59)
--- NOTE | 2017-09-01 11:06 | PN ---
Progress Note (short form) - Note Progress Note: No new events Passing some flatus Pain controlled Vital Signs Period Temp Pulse Resp BP Sys/Gates Pulse Ox Last 24 Hr 98.5 F-99.0 F 77-86 20-20 148-162/79-91 96 Abd soft, NT, ND CBC, BMP 09/01/17 07:37 09/01/17 07:37 Ileus Clamp NG tube and check residuals q 6 hours Ambulate Problem List - Problems (1) Umbilical hernia Code(s): K42.9 - UMBILICAL HERNIA WITHOUT OBSTRUCTION OR GANGRENE Qualifiers: Obstruction and gangrene presence: without obstruction or gangrene Qualified Code(s): K42.9 - Umbilical hernia without obstruction or gangrene
[2017-09-01] MEDS: RAMIPRIL 5 MG CAPSULE (FP) PO SCH (11:18)
[2017-09-01] MEDS ORDERED: METOPROLOL TARTRATE 5 MG/5 ML VIAL IVPUSH PRN (11:18)
[2017-09-01] MEDS: FINASTERIDE 5 MG TABLET (FP) PO SCH (11:19)
[2017-09-01] MEDS: BUDESONIDE/FORMETEROL FUMARATE 160/4.5 mcg INHALER IH SCH ×2 (11:19→22:08)
[2017-09-01] MEDS: POLYETHYLENE GLYCOL 3350 119 GM BTL PO SCH (11:19)
[2017-09-01] MEDS: CLOPIDOGREL BISULFATE 75 MG TABLET (FP) PO SCH (11:19)
[2017-09-01] MEDS: ASPIRIN COATED 81 MG TABLET.EC PO SCH (11:19)
[2017-09-01] MEDS: amLODIPine BESYLATE 2.5 MG TABLET (FP) PO SCH (11:19)
[2017-09-01] MEDS: GABAPENTIN 300 MG CAPSULE (FP) PO SCH (11:19)
[2017-09-01] MEDS: TIOTROPIUM BROMIDE 18 MCG/INH (DEVICE W/ 5 CAPSULES) IH SCH (11:19)
[2017-09-01] MEDS: EZETIMIBE 10 MG TABLET (FP) PO SCH (11:20)
[2017-09-01] MEDS ORDERED: PT OWN MED DRAWER 7, Y5N ONE (11:26)
--- NOTE | 2017-09-01 11:28 | PN ---
Progress Note, Physician Chief Complaint: Pneumonia, Hematuria, Umbilical hernia History of Present Illness: NAD Abdominal Xray done yesterday showed retained contrast with distended small bowel with suspicion of SBO vs Ileus NPO NGT Abdomen less distended IVF - Current Medication List Current Medications: Active Medications Albuterol/Ipratropium (Duoneb -) 1 amp NEB Q6H PRN PRN Reason: SHORTNESS OF BREATH Last Admin: 08/29/17 20:35 Dose: 1 amp Amlodipine Besylate (Norvasc -) 5 mg PO DAILY [facility] Last Admin: 09/01/17 11:19 Dose: Not Given Aspirin (Ecotrin -) 81 mg PO DAILY [facility] Last Admin: 09/01/17 11:19 Dose: Not Given Budesonide/Formoterol Fumarate (Symbicort 160/4.5mcg -) 1 puff IH BID [facility] Last Admin: 09/01/17 11:19 Dose: Not Given Clopidogrel Bisulfate (Plavix -) 75 mg PO DAILY [facility] Last Admin: 09/01/17 11:19 Dose: Not Given Ezetimibe (Zetia -) 10 mg PO DAILY [facility] Last Admin: 09/01/17 11:20 Dose: Not Given Finasteride (Proscar -) 5 mg PO DAILY [facility] Last Admin: 09/01/17 11:19 Dose: Not Given Gabapentin (Neurontin -) 600 mg PO DAILY [facility] Last Admin: 09/01/17 11:19 Dose: Not Given Gabapentin (Neurontin -) 800 mg PO HS [facility] Last Admin: 08/31/17 21:50 Dose: Not Given Heparin Sodium (Porcine) (Heparin -) 5,000 unit SQ BID [facility] Last Admin: 08/31/17 21:49 Dose: Not Given Hydromorphone HCl (Dilaudid Injection -) 4 mg IVPB Q4H PRN PRN Reason: PAIN Last Admin: 09/01/17 09:31 Dose: 4 mg Dextrose/Lactated Ringer's (D5-Lr+20 Meq Kcl -) 20 meq in 1,000 mls @ 75 mls/ hr IV ASDIR [facility] Last Admin: 09/01/17 06:14 Dose: 75 mls/hr Insulin Aspart (Novolog Vial Sliding Scale -) 1 vial SQ ACHS [facility] PRN Reason: Protocol Last Admin: 09/01/17 06:13 Dose: Not Given Methylnaltrexone [place] (Relistor -) 8 mg SQ DAILY [facility] Last Admin: 08/31/17 13:50 Dose: 8 mg Montelukast Sodium (Singulair -) [address] [facility] Last Admin: 08/31/17 21:50 Dose: Not Given Ondansetron HCl (Zofran Injection) 4 mg IVPUSH Q6H PRN PRN Reason: NAUSEA AND/OR VOMITING Last Admin: 09/01/17 09:59 Dose: 4 mg Pancrelipase (Creon Dr 36,000 Units Capsule) 1 cap PO TIDCM [facility] Last Admin: 09/01/17 09:03 Dose: Not Given Pantoprazole Sodium (Protonix Iv) 40 mg IVPUSH DAILY [facility] Last Admin: 08/31/17 10:34 Dose: 40 mg Polyethylene Glycol (Miralax (For Daily Use) -) 17 gm PO DAILY [facility] Last Admin: 09/01/17 11:19 Dose: Not Given Ramipril (Altace -) 20 mg PO DAILY [facility] Last Admin: 09/01/17 11:18 Dose: Not Given Rosuvastatin Calcium (Crestor -) [address] [facility] Last Admin: 08/31/17 21:50 Dose: Not Given Tamsulosin HCl (Flomax -) 0.4 mg PO DAILY@0830 [facility] Last Admin: 09/01/17 09:55 Dose: Not Given Tiotropium [place] (Spiriva -) 1 puff IH DAILY [facility] Last Admin: 09/01/17 11:19 Dose: Not Given - Objective Vital Signs: Vital Signs Temperature 98.9 F 09/01/17 09:00 Pulse Rate 94 H 09/01/17 09:00 Respiratory Rate 20 09/01/17 09:00 Blood Pressure 190/93 09/01/17 09:00 O2 Sat by Pulse Oximetry (%) 96 08/31/17 20:49 Constitutional: Yes: Well Nourished, No Distress, Calm Cardiovascular: Yes: Regular Rate and Rhythm Respiratory: Yes: Regular Gastrointestinal: Yes: Soft, Abdomen, Obese, Hypoactive Bowel Sounds Musculoskeletal: Yes: WNL Edema: No Peripheral Pulses WNL: Yes Neurological: Yes: Alert, Oriented Psychiatric: Yes: Alert, Oriented Labs: CBC, BMP 09/01/17 07:37 09/01/17 07:37 INR, PTT INR 1.22 (0.82-1.09) H 08/21/17 06:55 Problem List - Problems (1) Hematuria Assessment/Plan: -seen by Urology -UA +3 blood -UC negative -has BPH, tamsulosin and finestride on hold -CT abdomen/pelvis shows SBO -H/H stable -urine clear now Code(s): R31.9 - HEMATURIA, UNSPECIFIED (2) Umbilical hernia Assessment/Plan: -seen by GI surgery Code(s): K42.9 - UMBILICAL HERNIA WITHOUT OBSTRUCTION OR GANGRENE Qualifiers: Obstruction and gangrene presence: without obstruction or gangrene Qualified Code(s): K42.9 - Umbilical hernia without obstruction or gangrene (3) ASHD (arteriosclerotic heart disease) Assessment/Plan: -seen by Cardiology -Plavix on hold -heparin BID Code(s): I25.10 - ATHSCL HEART DISEASE OF [place] CORONARY ARTERY W/O ANG PCTRS (4) SBO (small bowel obstruction) Assessment/Plan: -pain management -NGT -NPO -GI and GI surgery -IVF- D5 -abd xray in AM -labs in AM -Clamp NGT after giving GoLytely, unclamp NGT Q6H for 10 mins, place on suction. Nursing to monitor output Q6H, if NGT output less than 150 cc, may be able to pull out NGT tomorrow -Discussed with GI surgery Code(s): K56.609 - UNSP INTESTNL OBST, UNSP TO PARTIAL VERSUS COMPLETE OBST (5) Hypertension Assessment/Plan: Metoprolol 5 mg IVP if SBP >150 mm Hg Code(s): I10 - ESSENTIAL (PRIMARY) HYPERTENSION Qualifiers: Hypertension type: essential hypertension Qualified Code(s): I10 - Essential (primary) hypertension (6) Hypokalemia Assessment/Plan: -KCL supplement -Change IVF-to D5W/NS+40 meq KCl Code(s): E87.6 - HYPOKALEMIA Assessment/Plan see problem list
[2017-09-01] MEDS: PANTOPRAZOLE SODIUM 40 MG VIAL IVPUSH SCH (11:31)
[2017-09-01] MEDS: HEPARIN NA (PORCINE) 5,000 UNITS/ML 1ML VIAL SQ SCH ×2 (11:31→22:07)
[2017-09-01] MEDS ORDERED: PEG3350/SOD SULF,BICARB,CL/KCL 4,000 ML SOLN.RECON PO ONE (12:00)
[2017-09-01] MEDS: D5-NS + 40 MEQ KCL - 40 MEQ/1,000 ML INFUS.BAG IV SCH (14:09)
[2017-09-01] MEDS: Methylnaltrexone Bromide 12 MG/0.6 ML KIT SQ SCH (16:53)
--- NOTE | 2017-09-01 17:35 | PN ---
Progress Note, Physician History of Present Illness: Pt. alert, no chest pain, palpitations or dyspnea.. No vomiting. NG in place - Current Medication List Current Medications: Active Medications Albuterol/Ipratropium (Duoneb -) 1 amp NEB Q6H PRN PRN Reason: SHORTNESS OF BREATH Last Admin: 08/29/17 20:35 Dose: 1 amp Amlodipine Besylate (Norvasc -) 5 mg PO DAILY [facility] Last Admin: 09/01/17 11:19 Dose: Not Given Aspirin (Ecotrin -) 81 mg PO DAILY [facility] Last Admin: 09/01/17 11:19 Dose: Not Given Budesonide/Formoterol Fumarate (Symbicort 160/4.5mcg -) 1 puff IH BID [facility] Last Admin: 09/01/17 11:19 Dose: Not Given Clopidogrel Bisulfate (Plavix -) 75 mg PO DAILY [facility] Last Admin: 09/01/17 11:19 Dose: Not Given Ezetimibe (Zetia -) 10 mg PO DAILY [facility] Last Admin: 09/01/17 11:20 Dose: Not Given Finasteride (Proscar -) 5 mg PO DAILY [facility] Last Admin: 09/01/17 11:19 Dose: Not Given Gabapentin (Neurontin -) 600 mg PO DAILY [facility] Last Admin: 09/01/17 11:19 Dose: Not Given Gabapentin (Neurontin -) 800 mg PO HS [facility] Last Admin: 08/31/17 21:50 Dose: Not Given Heparin Sodium (Porcine) (Heparin -) 5,000 unit SQ BID [facility] Last Admin: 09/01/17 11:31 Dose: 5,000 unit Hydromorphone HCl (Dilaudid Injection -) 4 mg IVPB Q4H PRN PRN Reason: PAIN Last Admin: 09/01/17 14:08 Dose: 4 mg Dextrose/Sodium Chloride (Dextrose 5%-Normal Saline+40 Meq Kcl -) 40 meq in 1, 000 mls @ 75 mls/hr IV ASDIR [facility] Last Admin: 09/01/17 14:09 Dose: 75 mls/hr Insulin Aspart (Novolog Vial Sliding Scale -) 1 vial SQ ACHS [facility] PRN Reason: Protocol Last Admin: 09/01/17 17:02 Dose: Not Given Methylnaltrexone [place] (Relistor -) 8 mg SQ DAILY [facility] Last Admin: 09/01/17 16:53 Dose: Not Given Metoprolol Tartrate (Lopressor Injection -) 5 mg IVPUSH TID PRN PRN Reason: HYPERTENSION Last Admin: 09/01/17 11:31 Dose: 5 mg Montelukast Sodium (Singulair -) 10 mg PO [facility] Last Admin: 08/31/17 21:50 Dose: Not Given Ondansetron HCl (Zofran Injection) 4 mg IVPUSH Q6H PRN PRN Reason: NAUSEA AND/OR VOMITING Last Admin: 09/01/17 09:59 Dose: 4 mg Pancrelipase (Creon Dr 36,000 Units Capsule) 1 cap PO TIDCM [facility] Last Admin: 09/01/17 17:02 Dose: Not Given Pantoprazole Sodium (Protonix Iv) 40 mg IVPUSH DAILY [facility] Last Admin: 09/01/17 11:31 Dose: 40 mg Polyethylene Glycol (Miralax (For Daily Use) -) 17 gm PO DAILY [facility] Last Admin: 09/01/17 11:19 Dose: Not Given Ramipril (Altace -) 20 mg PO DAILY [facility] Last Admin: 09/01/17 11:18 Dose: Not Given Rosuvastatin Calcium (Crestor -) 10 mg PO [facility] Last Admin: 08/31/17 21:50 Dose: Not Given Tamsulosin HCl (Flomax -) 0.4 mg PO DAILY@0830 [facility] Last Admin: 09/01/17 09:55 Dose: Not Given Tiotropium [place] (Spiriva -) 1 puff IH DAILY [facility] Last Admin: 09/01/17 11:19 Dose: Not Given - Objective Vital Signs: Vital Signs Temperature 98.1 F 09/01/17 15:22 Pulse Rate 79 09/01/17 15:22 Respiratory Rate 20 09/01/17 15:22 Blood Pressure 155/62 09/01/17 15:22 O2 Sat by Pulse Oximetry (%) 96 08/31/17 20:49 Constitutional: Yes: No Distress Eyes: No: Sclera Icterus HENT: Yes: Atraumatic, Normocephalic Neck: Yes: Supple, Other (tracheostomy clean and dry) Cardiovascular: Yes: Regular Rate and Rhythm. No: JVD Respiratory: Yes: CTA Bilaterally Gastrointestinal: Yes: Soft. No: Tenderness Extremities: No: Calf Tenderness Edema: No Neurological: Yes: Alert, Oriented Labs: CBC, BMP 09/01/17 07:37 09/01/17 07:37 INR, PTT INR 1.22 (0.82-1.09) H 08/21/17 06:55 Problem List - Problems (1) Umbilical hernia Code(s): K42.9 - UMBILICAL HERNIA WITHOUT OBSTRUCTION OR GANGRENE Qualifiers: Obstruction and gangrene presence: without obstruction or gangrene Qualified Code(s): K42.9 - Umbilical hernia without obstruction or gangrene (2) COPD (chronic obstructive pulmonary disease) Code(s): J44.9 - CHRONIC OBSTRUCTIVE PULMONARY DISEASE, UNSPECIFIED (3) Coronary artery disease Code(s): I25.10 - ATHSCL HEART DISEASE OF [place] CORONARY ARTERY W/O ANG PCTRS (4) Diabetes mellitus Code(s): E11.9 - TYPE 2 DIABETES MELLITUS WITHOUT COMPLICATIONS Qualifiers: Diabetes mellitus type: type 2 Diabetes mellitus complication detail: with unspecified neuropathy (5) Pancreatitis Code(s): K85.9 - ACUTE PANCREATITIS, UNSPECIFIED * DO NOT USE * Qualifiers: Chronicity: acute Pancreatitis type: other (6) Sleep apnea Code(s): G47.30 - SLEEP APNEA, UNSPECIFIED (7) Tracheostomy in place Code(s): Z98.89 - OTHER SPECIFIED POSTPROCEDURAL STATES * DO NOT USE * Assessment/Plan Respiratory status is stable. Ileus post umbilical hernia repair. Suggest: continue current treatment
--- NOTE | 2017-09-01 18:24 | PN ---
Progress Note, Physician History of Present Illness: Reports incisional discomfort, ileus developed placed on NGT decompression, passing flatus awaiting bowel recovery. - Current Medication List Current Medications: Active Medications Albuterol/Ipratropium (Duoneb -) 1 amp NEB Q6H PRN PRN Reason: SHORTNESS OF BREATH Last Admin: 08/29/17 20:35 Dose: 1 amp Amlodipine Besylate (Norvasc -) 5 mg PO DAILY [facility] Last Admin: 09/01/17 11:19 Dose: Not Given Aspirin (Ecotrin -) 81 mg PO DAILY [facility] Last Admin: 09/01/17 11:19 Dose: Not Given Budesonide/Formoterol Fumarate (Symbicort 160/4.5mcg -) 1 puff IH BID [facility] Last Admin: 09/01/17 11:19 Dose: Not Given Clopidogrel Bisulfate (Plavix -) 75 mg PO DAILY [facility] Last Admin: 09/01/17 11:19 Dose: Not Given Ezetimibe (Zetia -) 10 mg PO DAILY [facility] Last Admin: 09/01/17 11:20 Dose: Not Given Finasteride (Proscar -) 5 mg PO DAILY [facility] Last Admin: 09/01/17 11:19 Dose: Not Given Gabapentin (Neurontin -) 600 mg PO DAILY [facility] Last Admin: 09/01/17 11:19 Dose: Not Given Gabapentin (Neurontin -) 800 mg PO HS [facility] Last Admin: 08/31/17 21:50 Dose: Not Given Heparin Sodium (Porcine) (Heparin -) 5,000 unit SQ BID [facility] Last Admin: 09/01/17 11:31 Dose: 5,000 unit Hydromorphone HCl (Dilaudid Injection -) 4 mg IVPB Q4H PRN PRN Reason: PAIN Last Admin: 09/01/17 18:06 Dose: 4 mg Dextrose/Sodium Chloride (Dextrose 5%-Normal Saline+40 Meq Kcl -) 40 meq in 1, 000 mls @ 75 mls/hr IV ASDIR [facility] Last Admin: 09/01/17 14:09 Dose: 75 mls/hr Insulin Aspart (Novolog Vial Sliding Scale -) 1 vial SQ ACHS [facility] PRN Reason: Protocol Last Admin: 09/01/17 17:02 Dose: Not Given Methylnaltrexone [place] (Relistor -) 8 mg SQ DAILY [facility] Last Admin: 09/01/17 16:53 Dose: Not Given Metoprolol Tartrate (Lopressor Injection -) 5 mg IVPUSH TID PRN PRN Reason: HYPERTENSION Last Admin: 09/01/17 11:31 Dose: 5 mg Montelukast Sodium (Singulair -) 10 mg PO [facility] Last Admin: 08/31/17 21:50 Dose: Not Given Ondansetron HCl (Zofran Injection) 4 mg IVPUSH Q6H PRN PRN Reason: NAUSEA AND/OR VOMITING Last Admin: 09/01/17 09:59 Dose: 4 mg Pancrelipase (Creon Dr 36,000 Units Capsule) 1 cap PO TIDCM [facility] Last Admin: 09/01/17 17:02 Dose: Not Given Pantoprazole Sodium (Protonix Iv) 40 mg IVPUSH DAILY [facility] Last Admin: 09/01/17 11:31 Dose: 40 mg Polyethylene Glycol (Miralax (For Daily Use) -) 17 gm PO DAILY [facility] Last Admin: 09/01/17 11:19 Dose: Not Given Ramipril (Altace -) 20 mg PO DAILY [facility] Last Admin: 09/01/17 11:18 Dose: Not Given Rosuvastatin Calcium (Crestor -) 10 mg PO [facility] Last Admin: 08/31/17 21:50 Dose: Not Given Tamsulosin HCl (Flomax -) 0.4 mg PO DAILY@0830 [facility] Last Admin: 09/01/17 09:55 Dose: Not Given Tiotropium [place] (Spiriva -) 1 puff IH DAILY [facility] Last Admin: 09/01/17 11:19 Dose: Not Given - Objective Vital Signs: Vital Signs Temperature 98.1 F 09/01/17 15:22 Pulse Rate 79 09/01/17 15:22 Respiratory Rate 20 09/01/17 15:22 Blood Pressure 155/62 09/01/17 15:22 O2 Sat by Pulse Oximetry (%) 95 09/01/17 09:00 Constitutional: Yes: No Distress, Calm Neck: Yes: Supple Cardiovascular: Yes: Regular Rate and Rhythm Respiratory: Yes: Regular, Diminished Gastrointestinal: Yes: Abdomen, Obese, Hypoactive Bowel Sounds Edema: No Labs: CBC, BMP 09/01/17 07:37 09/01/17 07:37 INR, PTT INR 1.22 (0.82-1.09) H 08/21/17 06:55 - ....Imaging X-ray: Report Reviewed (pSBO/ileus) Problem List - Problems (1) Chest pain Code(s): R07.9 - CHEST PAIN, UNSPECIFIED Qualifiers: Chest pain type: unspecified Qualified Code(s): R07.9 - Chest pain, unspecified (2) Chronic pancreatitis Code(s): K86.1 - OTHER CHRONIC PANCREATITIS Qualifiers: Pancreatitis type: unspecified pancreatitis type Qualified Code(s): K86.1 - Other chronic pancreatitis (3) Abdominal pain Code(s): R10.9 - UNSPECIFIED ABDOMINAL PAIN Qualifiers: Abdominal location: upper abdomen, unspecified Qualified Code(s): R10.10 - Upper abdominal pain, unspecified (4) Asthma Code(s): J45.909 - UNSPECIFIED ASTHMA, UNCOMPLICATED Qualifiers: Asthma severity: unspecified severity (5) COPD (chronic obstructive pulmonary disease) Code(s): J44.9 - CHRONIC OBSTRUCTIVE PULMONARY DISEASE, UNSPECIFIED (6) Chronic diastolic (congestive) heart failure Code(s): I50.32 - CHRONIC DIASTOLIC (CONGESTIVE) HEART FAILURE (7) Coronary artery disease Code(s): I25.10 - ATHSCL HEART DISEASE OF [place] CORONARY ARTERY W/O ANG PCTRS (8) Diabetes mellitus Code(s): E11.9 - TYPE 2 DIABETES MELLITUS WITHOUT COMPLICATIONS Qualifiers: Diabetes mellitus type: type 2 Diabetes mellitus complication detail: with unspecified neuropathy (9) Esophagitis determined by endoscopy Code(s): K20.9 - ESOPHAGITIS, UNSPECIFIED (10) Hyperlipidemia Code(s): E78.5 - HYPERLIPIDEMIA, UNSPECIFIED (11) Hypertension Code(s): I10 - ESSENTIAL (PRIMARY) HYPERTENSION Qualifiers: Hypertension type: essential hypertension Qualified Code(s): I10 - Essential (primary) hypertension (12) Hypertension associated with diabetes Code(s): E11.59 - TYPE 2 DIABETES MELLITUS WITH OTH CIRCULATORY COMPLICATIONS; I10 - ESSENTIAL (PRIMARY) HYPERTENSION (13) IPMN (intraductal papillary mucinous neoplasm) Code(s): D49.0 - NEOPLASM OF UNSPECIFIED BEHAVIOR OF DIGESTIVE SYSTEM (14) Myocardial infarct Code(s): I21.3 - ST ELEVATION (STEMI) MYOCARDIAL INFARCTION OF UNSP SITE (15) GRACIE (obstructive sleep apnea) Code(s): G47.33 - OBSTRUCTIVE SLEEP APNEA (ADULT) (PEDIATRIC) (16) Type 2 diabetes mellitus with diabetic neuropathy Code(s): E11.40 - TYPE 2 DIABETES MELLITUS WITH DIABETIC NEUROPATHY, UNSP (17) Renal calculus, left Code(s): N20.0 - CALCULUS OF KIDNEY (18) Umbilical hernia Code(s): K42.9 - UMBILICAL HERNIA WITHOUT OBSTRUCTION OR GANGRENE Qualifiers: Obstruction and gangrene presence: without obstruction or gangrene Qualified Code(s): K42.9 - Umbilical hernia without obstruction or gangrene (19) S/P lumbar spinal fusion Code(s): Z98.1 - ARTHRODESIS STATUS (20) Tracheostomy in place Code(s): Z98.89 - OTHER SPECIFIED POSTPROCEDURAL STATES * DO NOT USE * (21) H/O umbilical hernia repair Code(s): Z98.890 - OTHER SPECIFIED POSTPROCEDURAL STATES; Z87.19 - PERSONAL HISTORY OF OTHER DISEASES OF THE DIGESTIVE SYSTEM Assessment/Plan 1. Post-operative umbilical hernia repair with ileus - post NGT decompression 2. Chronic pancreatitis and esophagitis 3. Chronic atypical chest pain 4. CAD s/p [place], post PCI (stents), angina pectoris 6. HTN/HCVD 5. Hyperlipidemia 6. Diastolic dysfunction and pulmonary HTN 7. OSAS 8. COPD/Asthma 9. Acute on CKD resolving 10. Hematuria with left non-obstructive calculus PLAN: 1. Continue analgesics as needed 2. Bronchodilator, O2 as needed 3. IV Lopressor for BP control awaiting bowel function recovery 4. NGT decompression
[2017-09-01] MEDS: GABAPENTIN 400 MG CAPSULE (FP) PO SCH (21:33)
[2017-09-01] MEDS: ROSUVASTATIN CA 10 MG TABLET (FP) PO SCH (21:33)
[2017-09-01] MEDS: MONTELUKAST NA 10 MG TABLET PO SCH (21:34)
[2017-09-02] MEDS: HYDROmorphone HCL CARPU-JECT 4 MG/1 ML DISP.SYRIN IVPB PRN ×5 (03:15→22:19)
[2017-09-02] MEDS: ONDANSETRON 4 MG/2 ML VIAL IVPUSH PRN ×2 (03:15→08:49)
[2017-09-02] MEDS: D5-NS + 40 MEQ KCL - 40 MEQ/1,000 ML INFUS.BAG IV SCH (03:17)
[2017-09-02] MEDS: METOPROLOL TARTRATE 5 MG/5 ML VIAL IVPB PRN ×3 (05:45→22:37)
[2017-09-02] MEDS: INSULIN SLIDING SCALE (NOVOLOG) 1 VIAL SQ SCH ×4 (07:33→21:19)
--- NOTE | 2017-09-02 08:21 | PN ---
Progress Note (short form) - Note Progress Note: No new events NG tube in place Passing some flatus Refused relistor Agreed to it this am Vital Signs Period Temp Pulse Resp BP Sys/Gates Pulse Ox Last 24 Hr 98.1 F-98.9 F 79-106 20-20 155-190/62-99 95-95 Abd soft, ND CBC, BMP 09/01/17 07:37 09/01/17 07:37 NG tube residuals <150ml x 2 per RN Abdominal xray Clinimix If residuals continue to be <150ml and Xray improves, may remove Ng tube and start clears Problem List - Problems (1) Umbilical hernia Code(s): K42.9 - UMBILICAL HERNIA WITHOUT OBSTRUCTION OR GANGRENE Qualifiers: Obstruction and gangrene presence: without obstruction or gangrene Qualified Code(s): K42.9 - Umbilical hernia without obstruction or gangrene
[2017-09-02] MEDS: Methylnaltrexone Bromide 12 MG/0.6 ML KIT SQ SCH (09:35)
[2017-09-02] MEDS: LIPASE/PROTEASE/AMYLASE 36,000 UNIT CAPSULE PO SCH ×3 (10:35→18:23)
[2017-09-02] MEDS: TAMSULOSIN HCL 0.4 MG CAP.ER.24H (FP) PO SCH (10:35)
[2017-09-02] MEDS: RAMIPRIL 5 MG CAPSULE (FP) PO SCH (10:35)
[2017-09-02] MEDS: ASPIRIN COATED 81 MG TABLET.EC PO SCH (10:36)
[2017-09-02] MEDS: CLOPIDOGREL BISULFATE 75 MG TABLET (FP) PO SCH (10:36)
[2017-09-02] MEDS: EZETIMIBE 10 MG TABLET (FP) PO SCH (10:36)
[2017-09-02] MEDS: amLODIPine BESYLATE 2.5 MG TABLET (FP) PO SCH (10:36)
[2017-09-02] MEDS: POLYETHYLENE GLYCOL 3350 119 GM BTL PO SCH (10:36)
[2017-09-02] MEDS: FINASTERIDE 5 MG TABLET (FP) PO SCH (10:36)
[2017-09-02] MEDS: GABAPENTIN 300 MG CAPSULE (FP) PO SCH (10:36)
[2017-09-02] MEDS: HEPARIN NA (PORCINE) 5,000 UNITS/ML 1ML VIAL SQ SCH ×2 (11:00→21:21)
--- NOTE | 2017-09-02 12:00 | PN ---
Progress Note, Physician Chief Complaint: fua noted ng tube advance 8cm per radiology reading patient complaining of abdominal pain - Current Medication List Current Medications: Active Medications Albuterol/Ipratropium (Duoneb -) 1 amp NEB Q6H PRN PRN Reason: SHORTNESS OF BREATH Last Admin: 08/29/17 20:35 Dose: 1 amp Amlodipine Besylate (Norvasc -) 5 mg PO DAILY [facility] Last Admin: 09/02/17 10:36 Dose: Not Given Aspirin (Ecotrin -) 81 mg PO DAILY [facility] Last Admin: 09/02/17 10:36 Dose: Not Given Budesonide/Formoterol Fumarate (Symbicort 160/4.5mcg -) 1 puff IH BID [facility] Last Admin: 09/01/17 22:08 Dose: Not Given Clopidogrel Bisulfate (Plavix -) 75 mg PO DAILY [facility] Last Admin: 09/02/17 10:36 Dose: Not Given Ezetimibe (Zetia -) 10 mg PO DAILY [facility] Last Admin: 09/02/17 10:36 Dose: Not Given Finasteride (Proscar -) 5 mg PO DAILY [facility] Last Admin: 09/02/17 10:36 Dose: Not Given Gabapentin (Neurontin -) 600 mg PO DAILY [facility] Last Admin: 09/02/17 10:36 Dose: Not Given Gabapentin (Neurontin -) 800 mg PO HS [facility] Last Admin: 09/01/17 21:33 Dose: Not Given Heparin Sodium (Porcine) (Heparin -) 5,000 unit SQ BID [facility] Last Admin: 09/01/17 22:07 Dose: 5,000 unit Hydromorphone HCl (Dilaudid Injection -) 4 mg IVPB Q4H PRN PRN Reason: PAIN Last Admin: 09/02/17 08:48 Dose: 4 mg Amino Acids (Clinimix -) 1,000 mls @ 84 mls/hr IV Q12H [facility] Insulin Aspart (Novolog Vial Sliding Scale -) 1 vial SQ ACHS [facility] PRN Reason: Protocol Last Admin: 09/02/17 07:33 Dose: Not Given Methylnaltrexone [place] (Relistor -) 8 mg SQ DAILY [facility] Last Admin: 09/02/17 09:35 Dose: 8 mg Metoprolol Tartrate (Lopressor Injection -) 5 mg IVPB Q4H PRN PRN Reason: HYPERTENSION Last Admin: 09/02/17 05:45 Dose: 5 mg Montelukast Sodium (Singulair -) 10 mg PO [facility] Last Admin: 09/01/17 21:34 Dose: Not Given Ondansetron HCl (Zofran Injection) 4 mg IVPUSH Q6H PRN PRN Reason: NAUSEA AND/OR VOMITING Last Admin: 09/02/17 08:49 Dose: 4 mg Pancrelipase (Creon Dr 36,000 Units Capsule) 1 cap PO TIDCM [facility] Last Admin: 09/02/17 10:35 Dose: Not Given Pantoprazole Sodium (Protonix Iv) 40 mg IVPUSH DAILY [facility] Last Admin: 09/01/17 11:31 Dose: 40 mg Polyethylene Glycol (Miralax (For Daily Use) -) 17 gm PO DAILY [facility] Last Admin: 09/02/17 10:36 Dose: Not Given Ramipril (Altace -) 20 mg PO DAILY [facility] Last Admin: 09/02/17 10:35 Dose: Not Given Rosuvastatin Calcium (Crestor -) 10 mg PO [facility] Last Admin: 09/01/17 21:33 Dose: Not Given Tamsulosin HCl (Flomax -) 0.4 mg PO DAILY@0830 [facility] Last Admin: 09/02/17 10:35 Dose: Not Given Tiotropium [place] (Spiriva -) 1 puff IH DAILY [facility] Last Admin: 09/01/17 11:19 Dose: Not Given - Objective Vital Signs: Vital Signs Temperature 98.5 F 09/02/17 06:00 Pulse Rate 96 H 09/02/17 06:00 Respiratory Rate 20 09/02/17 06:00 Blood Pressure 172/98 09/02/17 06:00 O2 Sat by Pulse Oximetry (%) 95 09/01/17 21:00 Constitutional: Yes: Mild Distress Cardiovascular: Yes: Regular Rate and Rhythm, S1, S2 Gastrointestinal: Yes: Hypoactive Bowel Sounds Neurological: Yes: Alert, Oriented Labs: CBC, BMP 09/01/17 07:37 09/01/17 07:37 INR, PTT INR 1.22 (0.82-1.09) H 08/21/17 06:55 Problem List - Problems (1) SBO (small bowel obstruction) Assessment/Plan: ngt tube NPO clinimix ng tube advanced surgery input noted FUA noted= small bowel obstruction Code(s): K56.609 - UNSP INTESTNL OBST, UNSP TO PARTIAL VERSUS COMPLETE OBST (2) ASHD (arteriosclerotic heart disease) Assessment/Plan: aspirin,plavix,zetia Code(s): I25.10 - ATHSCL HEART DISEASE OF [place] CORONARY ARTERY W/O ANG PCTRS (3) Hypokalemia Assessment/Plan: repeat bmp Code(s): E87.6 - HYPOKALEMIA (4) Hypertension Assessment/Plan: iv metoprolol Code(s): I10 - ESSENTIAL (PRIMARY) HYPERTENSION Qualifiers: Hypertension type: essential hypertension Qualified Code(s): I10 - Essential (primary) hypertension (5) BPH (benign prostatic hyperplasia) Assessment/Plan: flomax Code(s): N40.0 - BENIGN PROSTATIC HYPERPLASIA WITHOUT LOWER URINRY TRACT SYMP (6) COPD (chronic obstructive pulmonary disease) Assessment/Plan: bronchodilator Code(s): J44.9 - CHRONIC OBSTRUCTIVE PULMONARY DISEASE, UNSPECIFIED
[2017-09-02] MEDS: PANTOPRAZOLE SODIUM 40 MG VIAL IVPUSH SCH (12:42)
[2017-09-02] MEDS: AMINO ACIDS 4.25%/D5W 1,000 ML IV SCH ×2 (12:42→21:16)
[2017-09-02] MEDS: TIOTROPIUM BROMIDE 18 MCG/INH (DEVICE W/ 5 CAPSULES) IH SCH (12:43)
[2017-09-02] MEDS: BUDESONIDE/FORMETEROL FUMARATE 160/4.5 mcg INHALER IH SCH ×2 (12:43→21:21)
--- NOTE | 2017-09-02 12:47 | PN ---
Progress Note, Physician History of Present Illness: Abdomen still distended, ileus developed placed on NGT decompression, passing flatus awaiting bowel recovery. - Current Medication List Current Medications: Active Medications Albuterol/Ipratropium (Duoneb -) 1 amp NEB Q6H PRN PRN Reason: SHORTNESS OF BREATH Last Admin: 08/29/17 20:35 Dose: 1 amp Amlodipine Besylate (Norvasc -) 5 mg PO DAILY [facility] Last Admin: 09/02/17 10:36 Dose: Not Given Aspirin (Ecotrin -) 81 mg PO DAILY [facility] Last Admin: 09/02/17 10:36 Dose: Not Given Budesonide/Formoterol Fumarate (Symbicort 160/4.5mcg -) 1 puff IH BID [facility] Last Admin: 09/02/17 12:43 Dose: Not Given Clopidogrel Bisulfate (Plavix -) 75 mg PO DAILY [facility] Last Admin: 09/02/17 10:36 Dose: Not Given Ezetimibe (Zetia -) 10 mg PO DAILY [facility] Last Admin: 09/02/17 10:36 Dose: Not Given Finasteride (Proscar -) 5 mg PO DAILY [facility] Last Admin: 09/02/17 10:36 Dose: Not Given Gabapentin (Neurontin -) 600 mg PO DAILY [facility] Last Admin: 09/02/17 10:36 Dose: Not Given Gabapentin (Neurontin -) 800 mg PO HS [facility] Last Admin: 09/01/17 21:33 Dose: Not Given Heparin Sodium (Porcine) (Heparin -) 5,000 unit SQ BID [facility] Last Admin: 09/01/17 22:07 Dose: 5,000 unit Hydromorphone HCl (Dilaudid Injection -) 4 mg IVPB Q4H PRN PRN Reason: PAIN Last Admin: 09/02/17 08:48 Dose: 4 mg Amino Acids (Clinimix -) 1,000 mls @ 84 mls/hr IV Q12H [facility] Last Admin: 09/02/17 12:42 Dose: 84 mls/hr Insulin Aspart (Novolog Vial Sliding Scale -) 1 vial SQ ACHS [facility] PRN Reason: Protocol Last Admin: 09/02/17 12:43 Dose: 4 units Methylnaltrexone [place] (Relistor -) 8 mg SQ DAILY [facility] Last Admin: 09/02/17 09:35 Dose: 8 mg Metoprolol Tartrate (Lopressor Injection -) 5 mg IVPB Q4H PRN PRN Reason: HYPERTENSION Last Admin: 09/02/17 12:13 Dose: 5 mg Montelukast Sodium (Singulair -) 10 mg PO [facility] Last Admin: 09/01/17 21:34 Dose: Not Given Ondansetron HCl (Zofran Injection) 4 mg IVPUSH Q6H PRN PRN Reason: NAUSEA AND/OR VOMITING Last Admin: 09/02/17 08:49 Dose: 4 mg Pancrelipase (Creon Dr 36,000 Units Capsule) 1 cap PO TIDCM [facility] Last Admin: 09/02/17 12:44 Dose: Not Given Pantoprazole Sodium (Protonix Iv) 40 mg IVPUSH DAILY [facility] Last Admin: 09/02/17 12:42 Dose: 40 mg Polyethylene Glycol (Miralax (For Daily Use) -) 17 gm PO DAILY [facility] Last Admin: 09/02/17 10:36 Dose: Not Given Ramipril (Altace -) 20 mg PO DAILY [facility] Last Admin: 09/02/17 10:35 Dose: Not Given Rosuvastatin Calcium (Crestor -) 10 mg PO [facility] Last Admin: 09/01/17 21:33 Dose: Not Given Tamsulosin HCl (Flomax -) 0.4 mg PO DAILY@0830 [facility] Last Admin: 09/02/17 10:35 Dose: Not Given Tiotropium [place] (Spiriva -) 1 puff IH DAILY [facility] Last Admin: 09/02/17 12:43 Dose: Not Given - Objective Vital Signs: Vital Signs Temperature 98.5 F 09/02/17 06:00 Pulse Rate 90 09/02/17 12:13 Respiratory Rate 20 09/02/17 06:00 Blood Pressure 164/112 09/02/17 12:13 O2 Sat by Pulse Oximetry (%) 95 09/01/17 21:00 Constitutional: Yes: No Distress, Calm Neck: Yes: Supple Cardiovascular: Yes: Regular Rate and Rhythm Respiratory: Yes: Regular, Diminished Gastrointestinal: Yes: Distention, Hypoactive Bowel Sounds Edema: No Labs: CBC, BMP 09/01/17 07:37 INR, PTT INR 1.22 (0.82-1.09) H 08/21/17 06:55 - ....Imaging X-ray: Report Reviewed (SBO) Problem List - Problems (1) Chest pain Code(s): R07.9 - CHEST PAIN, UNSPECIFIED Qualifiers: Chest pain type: unspecified Qualified Code(s): R07.9 - Chest pain, unspecified (2) Chronic pancreatitis Code(s): K86.1 - OTHER CHRONIC PANCREATITIS Qualifiers: Pancreatitis type: unspecified pancreatitis type Qualified Code(s): K86.1 - Other chronic pancreatitis (3) Abdominal pain Code(s): R10.9 - UNSPECIFIED ABDOMINAL PAIN Qualifiers: Abdominal location: upper abdomen, unspecified Qualified Code(s): R10.10 - Upper abdominal pain, unspecified (4) Asthma Code(s): J45.909 - UNSPECIFIED ASTHMA, UNCOMPLICATED Qualifiers: Asthma severity: unspecified severity (5) COPD (chronic obstructive pulmonary disease) Code(s): J44.9 - CHRONIC OBSTRUCTIVE PULMONARY DISEASE, UNSPECIFIED (6) Chronic diastolic (congestive) heart failure Code(s): I50.32 - CHRONIC DIASTOLIC (CONGESTIVE) HEART FAILURE (7) Coronary artery disease Code(s): I25.10 - ATHSCL HEART DISEASE OF [place] CORONARY ARTERY W/O ANG PCTRS (8) Diabetes mellitus Code(s): E11.9 - TYPE 2 DIABETES MELLITUS WITHOUT COMPLICATIONS Qualifiers: Diabetes mellitus type: type 2 Diabetes mellitus complication detail: with unspecified neuropathy (9) Esophagitis determined by endoscopy Code(s): K20.9 - ESOPHAGITIS, UNSPECIFIED (10) Hyperlipidemia Code(s): E78.5 - HYPERLIPIDEMIA, UNSPECIFIED (11) Hypertension Code(s): I10 - ESSENTIAL (PRIMARY) HYPERTENSION Qualifiers: Hypertension type: essential hypertension Qualified Code(s): I10 - Essential (primary) hypertension (12) Hypertension associated with diabetes Code(s): E11.59 - TYPE 2 DIABETES MELLITUS WITH OTH CIRCULATORY COMPLICATIONS; I10 - ESSENTIAL (PRIMARY) HYPERTENSION (13) IPMN (intraductal papillary mucinous neoplasm) Code(s): D49.0 - NEOPLASM OF UNSPECIFIED BEHAVIOR OF DIGESTIVE SYSTEM (14) Myocardial infarct Code(s): I21.3 - ST ELEVATION (STEMI) MYOCARDIAL INFARCTION OF UNSP SITE (15) GRACIE (obstructive sleep apnea) Code(s): G47.33 - OBSTRUCTIVE SLEEP APNEA (ADULT) (PEDIATRIC) (16) Type 2 diabetes mellitus with diabetic neuropathy Code(s): E11.40 - TYPE 2 DIABETES MELLITUS WITH DIABETIC NEUROPATHY, UNSP (17) Renal calculus, left Code(s): N20.0 - CALCULUS OF KIDNEY (18) Umbilical hernia Code(s): K42.9 - UMBILICAL HERNIA WITHOUT OBSTRUCTION OR GANGRENE Qualifiers: Obstruction and gangrene presence: without obstruction or gangrene Qualified Code(s): K42.9 - Umbilical hernia without obstruction or gangrene (19) S/P lumbar spinal fusion Code(s): Z98.1 - ARTHRODESIS STATUS (20) Tracheostomy in place Code(s): Z98.89 - OTHER SPECIFIED POSTPROCEDURAL STATES * DO NOT USE * (21) H/O umbilical hernia repair Code(s): Z98.890 - OTHER SPECIFIED POSTPROCEDURAL STATES; Z87.19 - PERSONAL HISTORY OF OTHER DISEASES OF THE DIGESTIVE SYSTEM (22) SBO (small bowel obstruction) Code(s): K56.609 - UNSP INTESTNL OBST, UNSP TO PARTIAL VERSUS COMPLETE OBST Assessment/Plan 1. s/p umbilical hernia repair with post-op ileus/SBO - post NGT decompression 2. Chronic pancreatitis and esophagitis 3. Chronic atypical chest pain 4. CAD s/p [place], post PCI (stents), angina pectoris 6. HTN/HCVD 5. Hyperlipidemia 6. Diastolic dysfunction and pulmonary HTN 7. OSAS 8. COPD/Asthma 9. Acute on CKD resolving 10. Hematuria with left non-obstructive calculus PLAN: 1. Continue analgesics as needed 2. Bronchodilator, O2 as needed 3. IV Lopressor for BP control awaiting bowel function recovery 4. NGT decompression
[2017-09-02 13:27] LABS: ALBUMIN 2.8 g/dl (3.4-5.0); ALK PHOS 96 U/L (45-117); ANION GAP 13 (8-16); BILIRUBIN,TOTAL 0.6 mg/dL (0.2-1.0); BLOOD UREA NITROGEN 5 mg/dL (7-18); CALCIUM 8.9 mg/dL (8.5-10.1); CHLORIDE 99 mmol/L (98-107); CO2 27 mmol/L (21-32); CREATININE 0.9 mg/dL (0.7-1.3); GLUCOSE,RANDOM 279 mg/dL (74-106); MAGNESIUM 2.1 mg/dL (1.8-2.4); POTASSIUM 3.9 mmol/L (3.5-5.1); SGOT/AST 28 U/L (15-37); SGPT/ALT 41 U/L (12-78); SODIUM 139 mmol/L (136-145); TOT PROT 6.3 g/dl (6.4-8.2)
[2017-09-02] MEDS ORDERED: INSULIN (NOVOLOG) ASPART 100 UNITS/ML 10ML VIAL ONE ×2 (16:33→21:03)
[2017-09-02] MEDS ORDERED: amLODIPine BESYLATE 5 MG TABLET (FP) PO ONE (17:00)
[2017-09-02] MEDS: GABAPENTIN 400 MG CAPSULE (FP) PO SCH (21:18)
[2017-09-02] MEDS: MONTELUKAST NA 10 MG TABLET PO SCH (21:18)
[2017-09-02] MEDS: ROSUVASTATIN CA 10 MG TABLET (FP) PO SCH (21:18)
[2017-09-02] MEDS ORDERED: PT OWN MED DRAWER 7, Y5N ONE (22:49)
[2017-09-03] MEDS: HYDROmorphone HCL CARPU-JECT 4 MG/1 ML DISP.SYRIN IVPB PRN ×5 (02:32→21:32)
[2017-09-03] MEDS: METOPROLOL TARTRATE 5 MG/5 ML VIAL IVPB PRN ×4 (02:55→21:36)
[2017-09-03] MEDS: ONDANSETRON 4 MG/2 ML VIAL IVPUSH PRN ×2 (03:02→14:54)
[2017-09-03] MEDS: INSULIN SLIDING SCALE (NOVOLOG) 1 VIAL SQ SCH ×4 (06:42→21:46)
[2017-09-03] MEDS: ALBUTEROL SO4 2.5/IPRATROPIUM 0.5 INH SOL 3 ML VIAL.NEB. NEB PRN ×2 (08:01→20:25)
[2017-09-03] MEDS ORDERED: PT OWN MED DRAWER 7, Y5N ONE ×3 (08:26→20:59)
[2017-09-03] MEDS: LIPASE/PROTEASE/AMYLASE 36,000 UNIT CAPSULE PO SCH ×3 (08:38→17:19)
[2017-09-03] MEDS: TAMSULOSIN HCL 0.4 MG CAP.ER.24H (FP) PO SCH (08:38)
[2017-09-03] MEDS: AMINO ACIDS 4.25%/D5W 1,000 ML IV SCH ×2 (10:49→21:43)
[2017-09-03] MEDS: TIOTROPIUM BROMIDE 18 MCG/INH (DEVICE W/ 5 CAPSULES) IH SCH (10:51)
[2017-09-03] MEDS: BUDESONIDE/FORMETEROL FUMARATE 160/4.5 mcg INHALER IH SCH ×2 (10:51→21:44)
[2017-09-03] MEDS: PANTOPRAZOLE SODIUM 40 MG VIAL IVPUSH SCH (10:52)
[2017-09-03] MEDS: HEPARIN NA (PORCINE) 5,000 UNITS/ML 1ML VIAL SQ SCH ×2 (10:52→21:33)
[2017-09-03] MEDS: Methylnaltrexone Bromide 12 MG/0.6 ML KIT SQ SCH (10:53)
[2017-09-03] MEDS ORDERED: INSULIN (NOVOLOG) ASPART 100 UNITS/ML 10ML VIAL ONE (11:20)
--- NOTE | 2017-09-03 11:54 | PN ---
Progress Note, Physician Chief Complaint: ng tube removed had claustheodore today in morning- clear liquid diet - Current Medication List Current Medications: Active Medications Albuterol/Ipratropium (Duoneb -) 1 amp NEB Q6H PRN PRN Reason: SHORTNESS OF BREATH Last Admin: 09/03/17 08:01 Dose: 1 amp Amlodipine Besylate (Norvasc -) 5 mg PO DAILY [facility] Last Admin: 09/02/17 10:36 Dose: Not Given Aspirin (Ecotrin -) 81 mg PO DAILY [facility] Last Admin: 09/02/17 10:36 Dose: Not Given Budesonide/Formoterol Fumarate (Symbicort 160/4.5mcg -) 1 puff IH BID [facility] Last Admin: 09/03/17 10:51 Dose: 1 puff Clopidogrel Bisulfate (Plavix -) 75 mg PO DAILY [facility] Last Admin: 09/02/17 10:36 Dose: Not Given Ezetimibe (Zetia -) 10 mg PO DAILY [facility] Last Admin: 09/02/17 10:36 Dose: Not Given Finasteride (Proscar -) 5 mg PO DAILY [facility] Last Admin: 09/02/17 10:36 Dose: Not Given Gabapentin (Neurontin -) 600 mg PO DAILY [facility] Last Admin: 09/02/17 10:36 Dose: Not Given Gabapentin (Neurontin -) 800 mg PO HS [facility] Last Admin: 09/02/17 21:18 Dose: Not Given Heparin Sodium (Porcine) (Heparin -) 5,000 unit SQ BID [facility] Last Admin: 09/03/17 10:52 Dose: 5,000 unit Hydromorphone HCl (Dilaudid Injection -) 4 mg IVPB Q4H PRN PRN Reason: PAIN Last Admin: 09/03/17 11:37 Dose: 4 mg Amino Acids (Clinimix -) 1,000 mls @ 84 mls/hr IV Q12H [facility] Last Admin: 09/03/17 10:49 Dose: 84 mls/hr Insulin Aspart (Novolog Vial Sliding Scale -) 1 vial SQ ACHS MARK PRN Reason: Protocol Last Admin: 09/03/17 11:43 Dose: 4 units Methylnaltrexone [place] (Relistor -) 8 mg SQ DAILY [facility] Last Admin: 09/03/17 10:53 Dose: 8 mg Metoprolol Tartrate (Lopressor Injection -) 5 mg IVPB Q4H PRN PRN Reason: HYPERTENSION Last Admin: 09/03/17 07:02 Dose: 5 mg Montelukast Sodium (Singulair -) 10 mg PO [facility] Last Admin: 09/02/17 21:18 Dose: Not Given Ondansetron HCl (Zofran Injection) 4 mg IVPUSH Q6H PRN PRN Reason: NAUSEA AND/OR VOMITING Last Admin: 09/03/17 03:02 Dose: 4 mg Pancrelipase (Creon Dr 36,000 Units Capsule) 1 cap PO TIDCM [facility] Last Admin: 09/03/17 08:38 Dose: Not Given Pantoprazole Sodium (Protonix Iv) 40 mg IVPUSH DAILY [facility] Last Admin: 09/03/17 10:52 Dose: 40 mg Polyethylene Glycol (Miralax (For Daily Use) -) 17 gm PO DAILY [facility] Last Admin: 09/02/17 10:36 Dose: Not Given Ramipril (Altace -) 20 mg PO DAILY [facility] Last Admin: 09/02/17 10:35 Dose: Not Given Rosuvastatin Calcium (Crestor -) 10 mg PO [facility] Last Admin: 09/02/17 21:18 Dose: Not Given Tamsulosin HCl (Flomax -) 0.4 mg PO DAILY@0830 [facility] Last Admin: 09/03/17 08:38 Dose: 0.4 mg Tiotropium [place] (Spiriva -) 1 puff IH DAILY [facility] Last Admin: 09/03/17 10:51 Dose: 1 puff - Objective Vital Signs: Vital Signs Temperature 98.9 F 09/03/17 08:00 Pulse Rate 87 09/03/17 08:00 Respiratory Rate 18 09/03/17 08:00 Blood Pressure 158/91 09/03/17 08:00 O2 Sat by Pulse Oximetry (%) 96 09/02/17 20:32 Constitutional: Yes: Calm Cardiovascular: Yes: Regular Rate and Rhythm, S1, S2 Respiratory: Yes: CTA Bilaterally Gastrointestinal: Yes: Soft Labs: CBC, BMP 09/01/17 07:37 09/02/17 12:25 INR, PTT INR 1.22 (0.82-1.09) H 08/21/17 06:55 Problem List - Problems (1) SBO (small bowel obstruction) Assessment/Plan: ngt tube removed liquid diet surgery input noted FUA noted= small bowel obstruction Code(s): K56.609 - UNSP INTESTNL OBST, UNSP TO PARTIAL VERSUS COMPLETE OBST (2) ASHD (arteriosclerotic heart disease) Assessment/Plan: aspirin,plavix,zetia Code(s): I25.10 - ATHSCL HEART DISEASE OF [place] CORONARY ARTERY W/O ANG PCTRS (3) Hypokalemia Assessment/Plan: repeat bmp Code(s): E87.6 - HYPOKALEMIA (4) Hypertension Assessment/Plan: iv metoprolol as patient not taking po meds Code(s): I10 - ESSENTIAL (PRIMARY) HYPERTENSION Qualifiers: Hypertension type: essential hypertension Qualified Code(s): I10 - Essential (primary) hypertension (5) BPH (benign prostatic hyperplasia) Assessment/Plan: flomax Code(s): N40.0 - BENIGN PROSTATIC HYPERPLASIA WITHOUT LOWER URINRY TRACT SYMP (6) COPD (chronic obstructive pulmonary disease) Assessment/Plan: bronchodilator Code(s): J44.9 - CHRONIC OBSTRUCTIVE PULMONARY DISEASE, UNSPECIFIED
--- NOTE | 2017-09-03 16:18 | PN ---
Progress Note (short form) - Note Progress Note: Pain controlled Tolerating some clears Passed small BM Vital Signs Period Temp Pulse Resp BP Sys/Gates Pulse Ox Last 24 Hr 98.1 F-99.2 F 78-98 18-20 158-190/90-103 95-96 Abd soft, ND CBC, BMP 09/01/17 07:37 09/02/17 12:25 BP cpntrol Reglan Ambulation/PT Clears Problem List - Problems (1) Umbilical hernia Code(s): K42.9 - UMBILICAL HERNIA WITHOUT OBSTRUCTION OR GANGRENE Qualifiers: Obstruction and gangrene presence: without obstruction or gangrene Qualified Code(s): K42.9 - Umbilical hernia without obstruction or gangrene
[2017-09-03] MEDS: RAMIPRIL 5 MG CAPSULE (FP) PO SCH (17:17)
[2017-09-03] MEDS: GABAPENTIN 300 MG CAPSULE (FP) PO SCH (17:18)
[2017-09-03] MEDS: FINASTERIDE 5 MG TABLET (FP) PO SCH (17:18)
[2017-09-03] MEDS: EZETIMIBE 10 MG TABLET (FP) PO SCH (17:18)
[2017-09-03] MEDS: CLOPIDOGREL BISULFATE 75 MG TABLET (FP) PO SCH (17:18)
[2017-09-03] MEDS: ASPIRIN COATED 81 MG TABLET.EC PO SCH (17:18)
[2017-09-03] MEDS: amLODIPine BESYLATE 2.5 MG TABLET (FP) PO SCH (17:18)
[2017-09-03] MEDS: POLYETHYLENE GLYCOL 3350 119 GM BTL PO SCH (17:18)
[2017-09-03] MEDS: METOCLOPRAMIDE HCL INJECTION 10 MG/2 ML VIAL IVPUSH SCH ×2 (17:35→21:32)
--- NOTE | 2017-09-03 18:12 | PN ---
Progress Note, Physician History of Present Illness: Abdomen still distended, NGT removed, tolerating clears, passing small BM awaiting bowel recovery. - Current Medication List Current Medications: Active Medications Albuterol/Ipratropium (Duoneb -) 1 amp NEB Q6H PRN PRN Reason: SHORTNESS OF BREATH Last Admin: 09/03/17 08:01 Dose: 1 amp Amlodipine Besylate (Norvasc -) 5 mg PO DAILY [facility] Last Admin: 09/03/17 17:18 Dose: Not Given Aspirin (Ecotrin -) 81 mg PO DAILY [facility] Last Admin: 09/03/17 17:18 Dose: Not Given Budesonide/Formoterol Fumarate (Symbicort 160/4.5mcg -) 1 puff IH BID [facility] Last Admin: 09/03/17 10:51 Dose: 1 puff Clopidogrel Bisulfate (Plavix -) 75 mg PO DAILY [facility] Last Admin: 09/03/17 17:18 Dose: Not Given Ezetimibe (Zetia -) 10 mg PO DAILY [facility] Last Admin: 09/03/17 17:18 Dose: Not Given Finasteride (Proscar -) 5 mg PO DAILY [facility] Last Admin: 09/03/17 17:18 Dose: Not Given Gabapentin (Neurontin -) 600 mg PO DAILY [facility] Last Admin: 09/03/17 17:18 Dose: Not Given Gabapentin (Neurontin -) 800 mg PO HS [facility] Last Admin: 09/02/17 21:18 Dose: Not Given Heparin Sodium (Porcine) (Heparin -) 5,000 unit SQ BID [facility] Last Admin: 09/03/17 10:52 Dose: 5,000 unit Hydromorphone HCl (Dilaudid Injection -) 4 mg IVPB Q4H PRN PRN Reason: PAIN Last Admin: 09/03/17 17:35 Dose: 4 mg Amino Acids (Clinimix -) 1,000 mls @ 84 mls/hr IV Q12H [facility] Last Admin: 09/03/17 10:49 Dose: 84 mls/hr Insulin Aspart (Novolog Vial Sliding Scale -) 1 vial SQ ACHS MARK PRN Reason: Protocol Last Admin: 09/03/17 17:23 Dose: 4 units Methylnaltrexone [place] (Relistor -) 8 mg SQ DAILY [facility] Last Admin: 09/03/17 10:53 Dose: 8 mg Metoclopramide HCl (Reglan Injection -) 10 mg IVPUSH Q6H-IV [facility] Last Admin: 09/03/17 17:35 Dose: 10 mg Metoprolol Tartrate (Lopressor Injection -) 5 mg IVPB Q4H PRN PRN Reason: HYPERTENSION Last Admin: 09/03/17 16:24 Dose: 5 mg Montelukast Sodium (Singulair -) 10 mg PO HS [facility] Last Admin: 09/02/17 21:18 Dose: Not Given Ondansetron HCl (Zofran Injection) 4 mg IVPUSH Q6H PRN PRN Reason: NAUSEA AND/OR VOMITING Last Admin: 09/03/17 14:54 Dose: 4 mg Pancrelipase (Creon Dr 36,000 Units Capsule) 1 cap PO TIDCM [facility] Last Admin: 09/03/17 17:19 Dose: Not Given Pantoprazole Sodium (Protonix Iv) 40 mg IVPUSH DAILY [facility] Last Admin: 09/03/17 10:52 Dose: 40 mg Polyethylene Glycol (Miralax (For Daily Use) -) 17 gm PO DAILY [facility] Last Admin: 09/03/17 17:18 Dose: Not Given Ramipril (Altace -) 20 mg PO DAILY [facility] Last Admin: 09/03/17 17:17 Dose: Not Given Rosuvastatin Calcium (Crestor -) 10 mg PO [facility] Last Admin: 09/02/17 21:18 Dose: Not Given Tamsulosin HCl (Flomax -) 0.4 mg PO DAILY@0830 [facility] Last Admin: 09/03/17 08:38 Dose: 0.4 mg Tiotropium [place] (Spiriva -) 1 puff IH DAILY [facility] Last Admin: 09/03/17 10:51 Dose: 1 puff - Objective Vital Signs: Vital Signs Temperature 99.2 F 09/03/17 14:53 Pulse Rate 86 09/03/17 16:24 Respiratory Rate 20 09/03/17 14:53 Blood Pressure 166/104 09/03/17 16:24 O2 Sat by Pulse Oximetry (%) 95 09/03/17 09:00 Constitutional: Yes: No Distress, Calm Neck: Yes: Supple Cardiovascular: Yes: Regular Rate and Rhythm. No: Pulse Irregular Respiratory: Yes: Regular, Diminished Gastrointestinal: Yes: Distention Edema: No Labs: CBC, BMP 09/01/17 07:37 02/22/18 12:25 INR, PTT INR 1.22 (0.82-1.09) H 08/21/17 06:55 Problem List - Problems (1) Chest pain Code(s): R07.9 - CHEST PAIN, UNSPECIFIED Qualifiers: Chest pain type: unspecified Qualified Code(s): R07.9 - Chest pain, unspecified (2) Chronic pancreatitis Code(s): K86.1 - OTHER CHRONIC PANCREATITIS Qualifiers: Pancreatitis type: unspecified pancreatitis type Qualified Code(s): K86.1 - Other chronic pancreatitis (3) Abdominal pain Code(s): R10.9 - UNSPECIFIED ABDOMINAL PAIN Qualifiers: Abdominal location: upper abdomen, unspecified Qualified Code(s): R10.10 - Upper abdominal pain, unspecified (4) Asthma Code(s): J45.909 - UNSPECIFIED ASTHMA, UNCOMPLICATED Qualifiers: Asthma severity: unspecified severity (5) COPD (chronic obstructive pulmonary disease) Code(s): J44.9 - CHRONIC OBSTRUCTIVE PULMONARY DISEASE, UNSPECIFIED (6) Chronic diastolic (congestive) heart failure Code(s): I50.32 - CHRONIC DIASTOLIC (CONGESTIVE) HEART FAILURE (7) Coronary artery disease Code(s): I25.10 - ATHSCL HEART DISEASE OF [place] CORONARY ARTERY W/O ANG PCTRS (8) Diabetes mellitus Code(s): E11.9 - TYPE 2 DIABETES MELLITUS WITHOUT COMPLICATIONS Qualifiers: Diabetes mellitus type: type 2 Diabetes mellitus complication detail: with unspecified neuropathy (9) Esophagitis determined by endoscopy Code(s): K20.9 - ESOPHAGITIS, UNSPECIFIED (10) Hyperlipidemia Code(s): E78.5 - HYPERLIPIDEMIA, UNSPECIFIED (11) Hypertension Code(s): I10 - ESSENTIAL (PRIMARY) HYPERTENSION Qualifiers: Hypertension type: essential hypertension Qualified Code(s): I10 - Essential (primary) hypertension (12) Hypertension associated with diabetes Code(s): E11.59 - TYPE 2 DIABETES MELLITUS WITH OTH CIRCULATORY COMPLICATIONS; I10 - ESSENTIAL (PRIMARY) HYPERTENSION (13) IPMN (intraductal papillary mucinous neoplasm) Code(s): D49.0 - NEOPLASM OF UNSPECIFIED BEHAVIOR OF DIGESTIVE SYSTEM (14) Myocardial infarct Code(s): I21.3 - ST ELEVATION (STEMI) MYOCARDIAL INFARCTION OF UNSP SITE (15) GRACIE (obstructive sleep apnea) Code(s): G47.33 - OBSTRUCTIVE SLEEP APNEA (ADULT) (PEDIATRIC) (16) Type 2 diabetes mellitus with diabetic neuropathy Code(s): E11.40 - TYPE 2 DIABETES MELLITUS WITH DIABETIC NEUROPATHY, UNSP (17) Renal calculus, left Code(s): N20.0 - CALCULUS OF KIDNEY (18) Umbilical hernia Code(s): K42.9 - UMBILICAL HERNIA WITHOUT OBSTRUCTION OR GANGRENE Qualifiers: Obstruction and gangrene presence: without obstruction or gangrene Qualified Code(s): K42.9 - Umbilical hernia without obstruction or gangrene (19) S/P lumbar spinal fusion Code(s): Z98.1 - ARTHRODESIS STATUS (20) Tracheostomy in place Code(s): Z98.89 - OTHER SPECIFIED POSTPROCEDURAL STATES * DO NOT USE * (21) H/O umbilical hernia repair Code(s): Z98.890 - OTHER SPECIFIED POSTPROCEDURAL STATES; Z87.19 - PERSONAL HISTORY OF OTHER DISEASES OF THE DIGESTIVE SYSTEM (22) SBO (small bowel obstruction) Code(s): K56.609 - UNSP INTESTNL OBST, UNSP TO PARTIAL VERSUS COMPLETE OBST Assessment/Plan 1. s/p umbilical hernia repair with post-op ileus/SBO - post NGT decompression 2. Chronic pancreatitis and esophagitis 3. Chronic atypical chest pain 4. CAD s/p ND, post PCI (stents), angina pectoris 6. HTN/HCVD 5. Hyperlipidemia 6. Diastolic dysfunction and pulmonary HTN 7. OSAS 8. COPD/Asthma 9. Acute on CKD resolving 10. Hematuria with left non-obstructive calculus PLAN: 1. Continue analgesics as needed 2. Bronchodilator, O2 as needed 3. IV Lopressor for BP control awaiting bowel function recovery 4. Clears as tolrtated, encouraged ambulation
[2017-09-03] MEDS: ROSUVASTATIN CA 10 MG TABLET (FP) PO SCH (21:43)
[2017-09-03] MEDS: GABAPENTIN 400 MG CAPSULE (FP) PO SCH (21:43)
[2017-09-03] MEDS: MONTELUKAST NA 10 MG TABLET PO SCH (21:43)
[2017-09-04] MEDS: HYDROmorphone HCL CARPU-JECT 4 MG/1 ML DISP.SYRIN IVPB PRN ×6 (01:30→23:32)
[2017-09-04] MEDS: METOPROLOL TARTRATE 5 MG/5 ML VIAL IVPB PRN ×4 (01:33→14:17)
[2017-09-04] MEDS: AMINO ACIDS 4.25%/D5W 1,000 ML IV SCH ×4 (01:34→21:48)
[2017-09-04] MEDS: METOCLOPRAMIDE HCL INJECTION 10 MG/2 ML VIAL IVPUSH SCH ×4 (02:06→21:29)
[2017-09-04] MEDS ORDERED: INSULIN (NOVOLOG) ASPART 100 UNITS/ML 10ML VIAL ONE ×3 (05:19→21:49)
[2017-09-04] MEDS: INSULIN SLIDING SCALE (NOVOLOG) 1 VIAL SQ SCH ×4 (06:09→21:52)
[2017-09-04] MEDS: ALBUTEROL SO4 2.5/IPRATROPIUM 0.5 INH SOL 3 ML VIAL.NEB. NEB PRN (07:25)
[2017-09-04] MEDS: RAMIPRIL 5 MG CAPSULE (FP) PO SCH (09:41)
[2017-09-04] MEDS: TAMSULOSIN HCL 0.4 MG CAP.ER.24H (FP) PO SCH (09:41)
[2017-09-04] MEDS: LIPASE/PROTEASE/AMYLASE 36,000 UNIT CAPSULE PO SCH ×3 (09:41→17:41)
[2017-09-04] MEDS: amLODIPine BESYLATE 2.5 MG TABLET (FP) PO SCH (09:42)
[2017-09-04] MEDS: CLOPIDOGREL BISULFATE 75 MG TABLET (FP) PO SCH (09:42)
[2017-09-04] MEDS: ASPIRIN COATED 81 MG TABLET.EC PO SCH (09:42)
[2017-09-04] MEDS: EZETIMIBE 10 MG TABLET (FP) PO SCH (09:42)
[2017-09-04] MEDS: POLYETHYLENE GLYCOL 3350 119 GM BTL PO SCH (09:42)
[2017-09-04] MEDS: GABAPENTIN 300 MG CAPSULE (FP) PO SCH (09:42)
[2017-09-04] MEDS: FINASTERIDE 5 MG TABLET (FP) PO SCH (09:42)
[2017-09-04] MEDS ORDERED: PT OWN MED DRAWER 7, Y5N ONE ×2 (09:52→10:31)
[2017-09-04] MEDS: PANTOPRAZOLE SODIUM 40 MG VIAL IVPUSH SCH (10:17)
[2017-09-04] MEDS: TIOTROPIUM BROMIDE 18 MCG/INH (DEVICE W/ 5 CAPSULES) IH SCH (10:17)
[2017-09-04] MEDS: BUDESONIDE/FORMETEROL FUMARATE 160/4.5 mcg INHALER IH SCH ×2 (10:18→21:47)
[2017-09-04] MEDS: HEPARIN NA (PORCINE) 5,000 UNITS/ML 1ML VIAL SQ SCH ×2 (10:35→21:29)
--- NOTE | 2017-09-04 10:35 | PN ---
Progress Note (short form) - Note Progress Note: patient is doing well, he is in the chair sitting down, voices no complaints he is NPO. comfortable in his chair. PE: no edema s1 and s2 rrr lung CTA abdomen soft non-tender +Bs HEENT wnl (1) SBO (small bowel obstruction) Assessment/Plan: ngt tube removed liquid diet surgery input noted FUA noted= small bowel obstruction (2) ASHD (arteriosclerotic heart disease) Assessment/Plan: aspirin,plavix,zetia (3) Hypokalemia Assessment/Plan: repeat bmp (4) Hypertension Assessment/Plan: iv metoprolol as patient not taking po meds Code(s): I10 - ESSENTIAL (PRIMARY) HYPERTENSION Qualifiers: Hypertension type: essential hypertension Qualified Code(s): I10 - Essential (primary) hypertension (5) BPH (benign prostatic hyperplasia) Assessment/Plan: flomax (6) COPD (chronic obstructive pulmonary disease) Assessment/Plan: bronchodilator Visit type - Emergency Visit Emergency Visit: No - New Patient This patient is new to me today: Yes Date on this admission: 09/04/17 - Critical Care Critical Care patient: No - Discharge Referral Referred to [facility] Med [facility].C[facility] No
[2017-09-04] MEDS: Methylnaltrexone Bromide 12 MG/0.6 ML KIT SQ SCH (12:28)
--- NOTE | 2017-09-04 13:24 | PN ---
Progress Note, Physician History of Present Illness: Abdomen distension resolved, NGT removed, tolerating clears, passing small BM awaiting bowel recovery. - Current Medication List Current Medications: Active Medications Amlodipine Besylate (Norvasc -) 5 mg PO DAILY [facility] Last Admin: 09/04/17 09:42 Dose: Not Given Aspirin (Ecotrin -) 81 mg PO DAILY [facility] Last Admin: 09/04/17 09:42 Dose: Not Given Budesonide/Formoterol Fumarate (Symbicort 160/4.5mcg -) 1 puff IH BID [facility] Last Admin: 09/04/17 10:18 Dose: 1 puff Clopidogrel Bisulfate (Plavix -) 75 mg PO DAILY [facility] Last Admin: 09/04/17 09:42 Dose: Not Given Ezetimibe (Zetia -) 10 mg PO DAILY [facility] Last Admin: 09/04/17 09:42 Dose: Not Given Finasteride (Proscar -) 5 mg PO DAILY [facility] Last Admin: 09/04/17 09:42 Dose: Not Given Gabapentin (Neurontin -) 600 mg PO DAILY [facility] Last Admin: 09/04/17 09:42 Dose: Not Given Gabapentin (Neurontin -) 800 mg PO HS [facility] Last Admin: 09/03/17 21:43 Dose: Not Given Heparin Sodium (Porcine) (Heparin -) 5,000 unit SQ BID [facility] Last Admin: 09/04/17 10:35 Dose: 5,000 unit Hydromorphone HCl (Dilaudid Injection -) 4 mg IVPB Q4H PRN PRN Reason: PAIN Last Admin: 09/04/17 09:56 Dose: 4 mg Amino Acids (Clinimix -) 1,000 mls @ 84 mls/hr IV Q12H [facility] Last Admin: 09/04/17 10:36 Dose: Not Given Insulin Aspart (Novolog Vial Sliding Scale -) 1 vial SQ ACHS MARK PRN Reason: Protocol Last Admin: 09/04/17 11:13 Dose: 6 units Methylnaltrexone [place] (Relistor -) 8 mg SQ DAILY [facility] Last Admin: 09/04/17 12:28 Dose: 8 mg Metoclopramide HCl (Reglan Injection -) 10 mg IVPUSH Q6H-IV [facility] Last Admin: 09/04/17 10:18 Dose: 10 mg Metoprolol Tartrate (Lopressor Injection -) 5 mg IVPB Q4H PRN PRN Reason: HYPERTENSION Last Admin: 09/04/17 10:17 Dose: 5 mg Montelukast Sodium (Singulair -) 10 mg PO [facility] Last Admin: 09/03/17 21:43 Dose: Not Given Ondansetron HCl (Zofran Injection) 4 mg IVPUSH Q6H PRN PRN Reason: NAUSEA AND/OR VOMITING Last Admin: 09/03/17 14:54 Dose: 4 mg Pancrelipase (Creon Dr 36,000 Units Capsule) 1 cap PO TIDCM [facility] Last Admin: 09/04/17 09:41 Dose: Not Given Pantoprazole Sodium (Protonix Iv) 40 mg IVPUSH DAILY [facility] Last Admin: 09/04/17 10:17 Dose: 40 mg Polyethylene Glycol (Miralax (For Daily Use) -) 17 gm PO DAILY [facility] Last Admin: 09/04/17 09:42 Dose: Not Given Ramipril (Altace -) 20 mg PO DAILY [facility] Last Admin: 09/04/17 09:41 Dose: Not Given Rosuvastatin Calcium (Crestor -) 10 mg PO [facility] Last Admin: 09/03/17 21:43 Dose: Not Given Tamsulosin HCl (Flomax -) 0.4 mg PO DAILY@0830 [facility] Last Admin: 09/04/17 09:41 Dose: Not Given Tiotropium [place] (Spiriva -) 1 puff IH DAILY [facility] Last Admin: 09/04/17 10:17 Dose: 1 puff - Objective Vital Signs: Vital Signs Temperature 97.8 F 09/04/17 09:52 Pulse Rate 94 H 09/04/17 10:17 Respiratory Rate 20 09/04/17 09:52 Blood Pressure 149/104 09/04/17 10:17 O2 Sat by Pulse Oximetry (%) 95 09/03/17 20:28 Constitutional: Yes: No Distress, Calm Neck: Yes: Supple Cardiovascular: Yes: Regular Rate and Rhythm Respiratory: Yes: Regular, Diminished Gastrointestinal: Yes: Distention, Hypoactive Bowel Sounds Edema: No Labs: CBC, BMP 09/01/17 07:37 09/02/17 12:25 INR, PTT INR 1.22 (0.82-1.09) H 08/21/17 06:55 Problem List - Problems (1) Chest pain Code(s): R07.9 - CHEST PAIN, UNSPECIFIED Qualifiers: Chest pain type: unspecified Qualified Code(s): R07.9 - Chest pain, unspecified (2) Chronic pancreatitis Code(s): K86.1 - OTHER CHRONIC PANCREATITIS Qualifiers: Pancreatitis type: unspecified pancreatitis type Qualified Code(s): K86.1 - Other chronic pancreatitis (3) Abdominal pain Code(s): R10.9 - UNSPECIFIED ABDOMINAL PAIN Qualifiers: Abdominal location: upper abdomen, unspecified Qualified Code(s): R10.10 - Upper abdominal pain, unspecified (4) Asthma Code(s): J45.909 - UNSPECIFIED ASTHMA, UNCOMPLICATED Qualifiers: Asthma severity: unspecified severity (5) COPD (chronic obstructive pulmonary disease) Code(s): J44.9 - CHRONIC OBSTRUCTIVE PULMONARY DISEASE, UNSPECIFIED (6) Chronic diastolic (congestive) heart failure Code(s): I50.32 - CHRONIC DIASTOLIC (CONGESTIVE) HEART FAILURE (7) Coronary artery disease Code(s): I25.10 - ATHSCL HEART DISEASE OF [place] CORONARY ARTERY W/O ANG PCTRS (8) Diabetes mellitus Code(s): E11.9 - TYPE 2 DIABETES MELLITUS WITHOUT COMPLICATIONS Qualifiers: Diabetes mellitus type: type 2 Diabetes mellitus complication detail: with unspecified neuropathy (9) Esophagitis determined by endoscopy Code(s): K20.9 - ESOPHAGITIS, UNSPECIFIED (10) Hyperlipidemia Code(s): E78.5 - HYPERLIPIDEMIA, UNSPECIFIED (11) Hypertension Code(s): I10 - ESSENTIAL (PRIMARY) HYPERTENSION Qualifiers: Hypertension type: essential hypertension Qualified Code(s): I10 - Essential (primary) hypertension (12) Hypertension associated with diabetes Code(s): E11.59 - TYPE 2 DIABETES MELLITUS WITH OTH CIRCULATORY COMPLICATIONS; I10 - ESSENTIAL (PRIMARY) HYPERTENSION (13) IPMN (intraductal papillary mucinous neoplasm) Code(s): D49.0 - NEOPLASM OF UNSPECIFIED BEHAVIOR OF DIGESTIVE SYSTEM (14) Myocardial infarct Code(s): I21.3 - ST ELEVATION (STEMI) MYOCARDIAL INFARCTION OF UNSP SITE (15) GRACIE (obstructive sleep apnea) Code(s): G47.33 - OBSTRUCTIVE SLEEP APNEA (ADULT) (PEDIATRIC) (16) Type 2 diabetes mellitus with diabetic neuropathy Code(s): E11.40 - TYPE 2 DIABETES MELLITUS WITH DIABETIC NEUROPATHY, UNSP (17) Renal calculus, left Code(s): N20.0 - CALCULUS OF KIDNEY (18) Umbilical hernia Code(s): K42.9 - UMBILICAL HERNIA WITHOUT OBSTRUCTION OR GANGRENE Qualifiers: Obstruction and gangrene presence: without obstruction or gangrene Qualified Code(s): K42.9 - Umbilical hernia without obstruction or gangrene (19) S/P lumbar spinal fusion Code(s): Z98.1 - ARTHRODESIS STATUS (20) Tracheostomy in place Code(s): Z98.89 - OTHER SPECIFIED POSTPROCEDURAL STATES * DO NOT USE * (21) H/O umbilical hernia repair Code(s): Z98.890 - OTHER SPECIFIED POSTPROCEDURAL STATES; Z87.19 - PERSONAL HISTORY OF OTHER DISEASES OF THE DIGESTIVE SYSTEM (22) SBO (small bowel obstruction) Code(s): K56.609 - UNSP INTESTNL OBST, UNSP TO PARTIAL VERSUS COMPLETE OBST Assessment/Plan 1. s/p umbilical hernia repair with post-op ileus/SBO - post NGT decompression 2. Chronic pancreatitis and esophagitis 3. Chronic atypical chest pain 4. CAD s/p [place], post PCI (stents), angina pectoris 6. HTN/HCVD 5. Hyperlipidemia 6. Diastolic dysfunction and pulmonary HTN 7. OSAS 8. COPD/Asthma 9. Acute on CKD resolving 10. Hematuria with left non-obstructive calculus PLAN: 1. Continue analgesics as needed 2. Bronchodilator, O2 as needed 3. IV Lopressor for BP control awaiting bowel function recovery 4. Clears as tolerated, encouraged ambulation
--- NOTE | 2017-09-04 14:08 | PN ---
Progress Note, Physician Chief Complaint: feels weak History of Present Illness: dm iddm hyperglycemia,abdominal pain improving - Current Medication List Current Medications: Active Medications Amlodipine Besylate (Norvasc -) 5 mg PO DAILY [facility] Last Admin: 09/04/17 09:42 Dose: Not Given Aspirin (Ecotrin -) 81 mg PO DAILY [facility] Last Admin: 09/04/17 09:42 Dose: Not Given Budesonide/Formoterol Fumarate (Symbicort 160/4.5mcg -) 1 puff IH BID [facility] Last Admin: 09/04/17 10:18 Dose: 1 puff Clopidogrel Bisulfate (Plavix -) 75 mg PO DAILY [facility] Last Admin: 09/04/17 09:42 Dose: Not Given Ezetimibe (Zetia -) 10 mg PO DAILY [facility] Last Admin: 09/04/17 09:42 Dose: Not Given Finasteride (Proscar -) 5 mg PO DAILY [facility] Last Admin: 09/04/17 09:42 Dose: Not Given Gabapentin (Neurontin -) 600 mg PO DAILY [facility] Last Admin: 09/04/17 09:42 Dose: Not Given Gabapentin (Neurontin -) 800 mg PO HS [facility] Last Admin: 09/03/17 21:43 Dose: Not Given Heparin Sodium (Porcine) (Heparin -) 5,000 unit SQ BID [facility] Last Admin: 09/04/17 10:35 Dose: 5,000 unit Hydromorphone HCl (Dilaudid Injection -) 4 mg IVPB Q4H PRN PRN Reason: PAIN Last Admin: 09/04/17 09:56 Dose: 4 mg Amino Acids (Clinimix -) 1,000 mls @ 84 mls/hr IV Q12H [facility] Last Admin: 09/04/17 10:36 Dose: Not Given Insulin Aspart (Novolog Vial Sliding Scale -) 1 vial SQ ACHS MARK PRN Reason: Protocol Last Admin: 09/04/17 11:13 Dose: 6 units Methylnaltrexone [place] (Relistor -) 8 mg SQ DAILY [facility] Last Admin: 09/04/17 12:28 Dose: 8 mg Metoclopramide HCl (Reglan Injection -) 10 mg IVPUSH Q6H-IV [facility] Last Admin: 09/04/17 10:18 Dose: 10 mg Metoprolol Tartrate (Lopressor Injection -) 5 mg IVPB Q4H PRN PRN Reason: HYPERTENSION Last Admin: 09/04/17 10:17 Dose: 5 mg Montelukast Sodium (Singulair -) 10 mg PO [facility] Last Admin: 09/03/17 21:43 Dose: Not Given Ondansetron HCl (Zofran Injection) 4 mg IVPUSH Q6H PRN PRN Reason: NAUSEA AND/OR VOMITING Last Admin: 09/03/17 14:54 Dose: 4 mg Pancrelipase (Creon Dr 36,000 Units Capsule) 1 cap PO TIDCM [facility] Last Admin: 09/04/17 09:41 Dose: Not Given Pantoprazole Sodium (Protonix Iv) 40 mg IVPUSH DAILY [facility] Last Admin: 09/04/17 10:17 Dose: 40 mg Polyethylene Glycol (Miralax (For Daily Use) -) 17 gm PO DAILY [facility] Last Admin: 09/04/17 09:42 Dose: Not Given Ramipril (Altace -) 20 mg PO DAILY [facility] Last Admin: 09/04/17 09:41 Dose: Not Given Rosuvastatin Calcium (Crestor -) 10 mg PO [facility] Last Admin: 09/03/17 21:43 Dose: Not Given Tamsulosin HCl (Flomax -) 0.4 mg PO DAILY@0830 [facility] Last Admin: 09/04/17 09:41 Dose: Not Given Tiotropium [place] (Spiriva -) 1 puff IH DAILY [facility] Last Admin: 09/04/17 10:17 Dose: 1 puff - Objective Vital Signs: Vital Signs Temperature 98.4 F 09/04/17 13:49 Pulse Rate 74 09/04/17 13:49 Respiratory Rate 18 09/04/17 13:49 Blood Pressure 184/108 09/04/17 13:49 O2 Sat by Pulse Oximetry (%) 95 09/03/17 20:28 Constitutional: Yes: Anxious Eyes: Yes: EOM Intact HENT: Yes: Normocephalic Neck: Yes: Trachea Midline Cardiovascular: Yes: Regular Rate and Rhythm Respiratory: Yes: CTA Bilaterally Gastrointestinal: Yes: Abdomen, Obese, Hypoactive Bowel Sounds, Tenderness, Epigastrium ...Rectal Exam: Yes: Deferred Genitourinary: Yes: WNL Breast(s): Yes: WNL Musculoskeletal: Yes: WNL, Muscle Weakness Neurological: Yes: Alert, Oriented Labs: CBC, BMP 09/01/17 07:37 09/02/17 12:25 INR, PTT INR 1.22 (0.82-1.09) H 08/21/17 06:55 Problem List - Problems (1) 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 Code(s): E10.8 - TYPE 1 DIABETES MELLITUS WITH UNSPECIFIED COMPLICATIONS (2) Chronic pancreatitis Code(s): K86.1 - OTHER CHRONIC PANCREATITIS Qualifiers: Pancreatitis type: unspecified pancreatitis type Qualified Code(s): K86.1 - Other chronic pancreatitis (3) ASHD (arteriosclerotic heart disease) Code(s): I25.10 - ATHSCL HEART DISEASE OF [place] CORONARY ARTERY W/O ANG PCTRS (4) Abdominal pain Code(s): R10.9 - UNSPECIFIED ABDOMINAL PAIN Qualifiers: Abdominal location: upper abdomen, unspecified Qualified Code(s): R10.10 - Upper abdominal pain, unspecified (5) Acute on chronic diastolic (congestive) heart failure Code(s): I50.33 - ACUTE ON CHRONIC DIASTOLIC (CONGESTIVE) HEART FAILURE Assessment/Plan Current Active Problems CHF (congestive heart failure) (Acute) Chest pain (Acute) Chronic pancreatitis (Acute) 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 (Acute) H/O umbilical hernia repair (Acute) Hematuria (Acute) Pneumonia (Acute) Renal calculus, left (Acute) SBO (small bowel obstruction) (Acute) Umbilical hernia (Acute) Current Active Problems Laboratory Results - last 24 hr 09/03/17 09/03/17 09/04/17 17:22 21:45 05:13 POC Glucometer 266 341 324 09/04/17 11:03 POC Glucometer 308 Current Medications Generic Name Dose Route Start Last Admin Trade Name Nathen PRN Reason Stop Dose Admin Amlodipine Besylate 5 mg 08/22/17 10:00 09/04/17 09:42 Norvasc - PO Not Given DAILY MARK Aspirin 81 mg 08/19/17 10:00 09/04/17 09:42 Ecotrin - PO Not Given DAILY MARK Budesonide/Formoterol Fumarate 1 puff 08/19/17 10:00 09/04/17 10:18 Symbicort 160/4.5mcg - IH 1 puff BID MARK Administration Clopidogrel Bisulfate 75 mg 08/28/17 10:00 09/04/17 09:42 Plavix - PO Not Given DAILY [facility] Ezetimibe 10 mg 08/19/17 10:00 09/04/17 09:42 Zetia - PO Not Given DAILY [facility] Finasteride 5 mg 08/19/17 10:00 09/04/17 09:42 Proscar - PO Not Given DAILY [facility] Gabapentin 600 mg 08/19/17 10:00 09/04/17 09:42 Neurontin - PO Not Given DAILY [facility] Gabapentin 800 mg 08/19/17 22:00 09/03/17 21:43 Neurontin - PO Not Given HS [facility] Heparin Sodium (Porcine) 5,000 unit 08/30/17 12:15 09/04/17 10:35 Heparin - SQ 5,000 unit BID MARK Administration Hydromorphone HCl 4 mg 08/30/17 12:10 09/04/17 09:56 Dilaudid Injection - IVPB 4 mg Q4H PRN Administration PAIN Amino Acids 1,000 mls @ 84 mls/hr 09/02/17 09:00 09/04/17 10:36 Clinimix - IV Not Given Q12H [facility] Insulin Aspart 1 vial 08/19/17 16:30 09/04/17 11:13 Novolog Vial Sliding Scale - SQ 6 units ACHS MARK Administration Protocol Methylnaltrexone [place] 8 mg 08/30/17 15:30 09/04/17 12:28 Relistor - SQ 8 mg DAILY MARK Administration Metoclopramide HCl 10 mg 09/03/17 16:15 09/04/17 10:18 Reglan Injection - IVPUSH 10 mg Q6H-IV MARK Administration Metoprolol Tartrate 5 mg 09/01/17 18:29 09/04/17 10:17 Lopressor Injection - IVPB 5 mg Q4H PRN Administration HYPERTENSION Montelukast Sodium 10 mg 08/19/17 22:00 09/03/17 21:43 Singulair - PO Not Given HS [facility] Ondansetron HCl 4 mg 08/27/17 14:31 09/03/17 14:54 Zofran Injection IVPUSH 4 mg Q6H PRN Administration NAUSEA AND/OR VOMITING Pancrelipase 1 cap 08/20/17 12:00 09/04/17 09:[address] 36,000 Units Capsule PO Not Given TIDCM [facility] Pantoprazole Sodium 40 mg 08/31/17 10:00 09/04/17 10:17 Protonix Iv IVPUSH 40 mg DAILY [facility] Administration Polyethylene Glycol 17 gm 08/25/17 12:45 09/04/17 09:42 Miralax (For Daily Use) - PO Not Given DAILY [facility] Ramipril 20 mg 08/22/17 10:00 09/04/17 09:41 Altace - PO Not Given DAILY [facility] Rosuvastatin Calcium 10 mg 08/19/17 22:00 09/03/17 21:43 Crestor - PO Not Given [facility] Tamsulosin HCl 0.4 mg 08/19/17 08:30 09/04/17 09:41 Flomax - PO Not Given DAILY@0830 [facility] Tiotropium [place] 1 puff 08/19/17 10:00 09/04/17 10:17 Spiriva - IH 1 puff DAILY [facility] Administration plan:) bgm levmir 20 units daily if sugar over 200mg /dl
[2017-09-04] MEDS: INSULIN DETEMIR 100 UNITS/ML MDV SQ SCH (21:28)
[2017-09-04] MEDS: MONTELUKAST NA 10 MG TABLET PO SCH (21:29)
[2017-09-04] MEDS: ROSUVASTATIN CA 10 MG TABLET (FP) PO SCH (21:46)
[2017-09-04] MEDS: GABAPENTIN 400 MG CAPSULE (FP) PO SCH (21:46)
[2017-09-05] MEDS: METOPROLOL TARTRATE 5 MG/5 ML VIAL IVPB PRN ×5 (01:57→23:08)
[2017-09-05] MEDS: METOCLOPRAMIDE HCL INJECTION 10 MG/2 ML VIAL IVPUSH SCH ×4 (02:39→20:36)
[2017-09-05] MEDS: HYDROmorphone HCL CARPU-JECT 4 MG/1 ML DISP.SYRIN IVPB PRN ×2 (04:48→09:15)
[2017-09-05] MEDS ORDERED: INSULIN (NOVOLOG) ASPART 100 UNITS/ML 10ML VIAL ONE ×2 (06:05→11:19)
[2017-09-05] MEDS: INSULIN SLIDING SCALE (NOVOLOG) 1 VIAL SQ SCH ×4 (06:06→22:14)
[2017-09-05 07:37] LABS: BASO % 0.8 % (0-2.0); EOS % 1.9 % (0-4.5); HEMATOCRIT 38.1 % (35.4-49); HEMOGLOBIN 12.4 GM/dL (11.7-16.9); LYMPH % 32.7 % (8-40); MCH 26.1 pg (25.7-33.7); MCHC 32.6 g/dl (32.0-35.9); MONO % 9.8 % (3.8-10.2); NEUT % 54.8 % (42.8-82.8); PLATELET COUNT 327 K/MM3 (134-434); RBC 4.77 M/mm3 (4.00-5.60); RDW 14.2 % (11.9-15.9); WHITE BLOOD COUNT 10.6 K/mm3 (4.0-10.0)
[2017-09-05] MEDS: LIPASE/PROTEASE/AMYLASE 36,000 UNIT CAPSULE PO SCH ×3 (07:45→16:52)
[2017-09-05] MEDS: TAMSULOSIN HCL 0.4 MG CAP.ER.24H (FP) PO SCH (07:45)
[2017-09-05 07:59] LABS: ALBUMIN 2.8 g/dl (3.4-5.0); ANION GAP 9 (8-16); BLOOD UREA NITROGEN 15 mg/dL (7-18); CALCIUM 8.4 mg/dL (8.5-10.1); CHLORIDE 100 mmol/L (98-107); CO2 27 mmol/L (21-32); CREATININE 0.9 mg/dL (0.7-1.3); POTASSIUM 3.1 mmol/L (3.5-5.1); SGOT/AST 61 U/L (15-37); SGPT/ALT 81 U/L (12-78); SODIUM 136 mmol/L (136-145)
[2017-09-05 08:06] LABS: ALK PHOS 96 U/L (45-117); BILIRUBIN,TOTAL 0.9 mg/dL (0.2-1.0)
[2017-09-05 08:11] LABS: GLUCOSE,RANDOM 320 mg/dL (74-106)
[2017-09-05] MEDS: AMINO ACIDS 4.25%/D5W 1,000 ML IV SCH ×2 (08:38→20:37)
[2017-09-05] MEDS: GABAPENTIN 300 MG CAPSULE (FP) PO SCH (09:21)
[2017-09-05] MEDS: amLODIPine BESYLATE 2.5 MG TABLET (FP) PO SCH (09:21)
[2017-09-05] MEDS: POLYETHYLENE GLYCOL 3350 119 GM BTL PO SCH (09:21)
[2017-09-05] MEDS: CLOPIDOGREL BISULFATE 75 MG TABLET (FP) PO SCH (09:21)
[2017-09-05] MEDS: RAMIPRIL 5 MG CAPSULE (FP) PO SCH (09:21)
[2017-09-05] MEDS: ASPIRIN COATED 81 MG TABLET.EC PO SCH (09:21)
[2017-09-05] MEDS: HEPARIN NA (PORCINE) 5,000 UNITS/ML 1ML VIAL SQ SCH ×3 (09:21→22:14)
[2017-09-05] MEDS: FINASTERIDE 5 MG TABLET (FP) PO SCH (09:22)
[2017-09-05] MEDS: EZETIMIBE 10 MG TABLET (FP) PO SCH (09:22)
[2017-09-05] MEDS: PANTOPRAZOLE SODIUM 40 MG VIAL IVPUSH SCH (09:54)
[2017-09-05] MEDS ORDERED: PT OWN MED DRAWER 7, Y5N ONE ×2 (10:01→22:07)
[2017-09-05] MEDS: Methylnaltrexone Bromide 12 MG/0.6 ML KIT SQ SCH (10:17)
[2017-09-05] MEDS: BUDESONIDE/FORMETEROL FUMARATE 160/4.5 mcg INHALER IH SCH ×2 (10:18→22:13)
[2017-09-05] MEDS: TIOTROPIUM BROMIDE 18 MCG/INH (DEVICE W/ 5 CAPSULES) IH SCH (10:18)
--- NOTE | 2017-09-05 11:30 | PN ---
Progress Note (short form) - Note Progress Note: patient is doing well, he is in the chair sitting down, voices no complaints he is NPO. comfortable in his chair. PE: no edema s1 and s2 rrr lung CTA abdomen soft non-tender +Bs HEENT wnl (1) SBO (small bowel obstruction) Assessment/Plan: ngt tube removed liquid diet surgery input noted FUA noted= small bowel obstruction (2) ASHD (arteriosclerotic heart disease) Assessment/Plan: aspirin,plavix,zetia (3) Hypokalemia Assessment/Plan: repeat bmp (4) Hypertension Assessment/Plan: iv metoprolol as patient not taking po meds Code(s): I10 - ESSENTIAL (PRIMARY) HYPERTENSION Qualifiers: Hypertension type: essential hypertension Qualified Code(s): I10 - Essential (primary) hypertension (5) BPH (benign prostatic hyperplasia) Assessment/Plan: flomax (6) COPD (chronic obstructive pulmonary disease) Assessment/Plan: bronchodilator Visit type - Emergency Visit Emergency Visit: No - New Patient This patient is new to me today: No - Critical Care Critical Care patient: No - Discharge Referral Referred to [facility] Med P.C.: No
[2017-09-05] MEDS ORDERED: HYDROmorphone HCL CARPU-JECT 2 MG/1 ML DISP.SYRIN IM PRN (14:02)
[2017-09-05] MEDS ORDERED: HYDROmorphone *PCA* 6MG/30ML DISP.SYRIN PCA SCH (14:30)
--- NOTE | 2017-09-05 14:33 | PN ---
Progress Note, Physician History of Present Illness: Abdomen distension resolved, NGT removed, remains NPO except for sips, passing small BM awaiting bowel recovery. - Current Medication List Current Medications: Active Medications Amlodipine Besylate (Norvasc -) 5 mg PO DAILY [facility] Last Admin: 09/05/17 09:21 Dose: Not Given Aspirin (Ecotrin -) 81 mg PO DAILY [facility] Last Admin: 09/05/17 09:21 Dose: Not Given Budesonide/Formoterol Fumarate (Symbicort 160/4.5mcg -) 1 puff IH BID [facility] Last Admin: 09/05/17 10:18 Dose: 1 puff Clopidogrel Bisulfate (Plavix -) 75 mg PO DAILY [facility] Last Admin: 09/05/17 09:21 Dose: Not Given Ezetimibe (Zetia -) 10 mg PO DAILY [facility] Last Admin: 09/05/17 09:22 Dose: Not Given Finasteride (Proscar -) 5 mg PO DAILY [facility] Last Admin: 09/05/17 09:22 Dose: Not Given Gabapentin (Neurontin -) 600 mg PO DAILY [facility] Last Admin: 09/05/17 09:21 Dose: Not Given Gabapentin (Neurontin -) 800 mg PO HS [facility] Last Admin: 09/04/17 21:46 Dose: Not Given Heparin Sodium (Porcine) (Heparin -) 5,000 unit SQ BID [facility] Last Admin: 09/05/17 09:56 Dose: 5,000 unit Hydromorphone HCl (Dilaudid [employer] -) 6 mg [employer]INCIPAL [employer]CHITECT PRINCIPAL ARCHITECT MARK PRN Reason: Protocol Stop: 09/12/17 14:26 Amino Acids (Clinimix -) 1,000 mls @ 84 mls/hr IV Q12H [facility] Last Admin: 09/05/17 08:38 Dose: 84 mls/hr Insulin Aspart (Novolog Vial Sliding Scale -) 1 vial SQ ACHS MARK PRN Reason: Protocol Last Admin: 09/05/17 11:25 Dose: 6 units Insulin Detemir (Levemir Vial) 20 units SQ HS [facility] Last Admin: 09/04/17 21:28 Dose: 20 units Methylnaltrexone [place] (Relistor -) 8 mg SQ DAILY [facility] Last Admin: 09/05/17 10:17 Dose: 8 mg Metoclopramide HCl (Reglan Injection -) 10 mg IVPUSH Q6H-IV [facility] Last Admin: 09/05/17 09:54 Dose: 10 mg Metoprolol Tartrate (Lopressor Injection -) 5 mg IVPB Q4H PRN PRN Reason: HYPERTENSION Last Admin: 09/05/17 10:32 Dose: 5 mg Montelukast Sodium (Singulair -) 10 mg PO HS [facility] Last Admin: 09/04/17 21:29 Dose: 10 mg Ondansetron HCl (Zofran Injection) 4 mg IVPUSH Q6H PRN PRN Reason: NAUSEA AND/OR VOMITING Last Admin: 09/03/17 14:54 Dose: 4 mg Pancrelipase (Creon Dr 36,000 Units Capsule) 1 cap PO TIDCM [facility] Last Admin: 09/05/17 11:15 Dose: Not Given Pantoprazole Sodium (Protonix Iv) 40 mg IVPUSH DAILY [facility] Last Admin: 09/05/17 09:54 Dose: 40 mg Polyethylene Glycol (Miralax (For Daily Use) -) 17 gm PO DAILY [facility] Last Admin: 09/05/17 09:21 Dose: Not Given Ramipril (Altace -) 20 mg PO DAILY [facility] Last Admin: 09/05/17 09:21 Dose: Not Given Rosuvastatin Calcium (Crestor -) 10 mg PO [facility] Last Admin: 09/04/17 21:46 Dose: Not Given Tamsulosin HCl (Flomax -) 0.4 mg PO DAILY@0830 [facility] Last Admin: 09/05/17 07:45 Dose: Not Given Tiotropium [place] (Spiriva -) 1 puff IH DAILY [facility] Last Admin: 09/05/17 10:18 Dose: 1 puff - Objective Vital Signs: Vital Signs Temperature 98.5 F 09/05/17 14:00 Pulse Rate 85 09/05/17 14:00 Respiratory Rate 20 09/05/17 14:00 Blood Pressure 164/96 09/05/17 14:00 O2 Sat by Pulse Oximetry (%) 96 09/05/17 09:00 Constitutional: Yes: No Distress, Calm Neck: Yes: Supple Cardiovascular: Yes: Regular Rate and Rhythm Respiratory: Yes: Regular, Diminished Gastrointestinal: Yes: Soft, Hypoactive Bowel Sounds Edema: No Labs: CBC, BMP 09/05/17 06:40 09/05/17 06:40 INR, PTT INR 1.22 (0.82-1.09) H 08/21/17 06:55 Problem List - Problems (1) Chest pain Code(s): R07.9 - CHEST PAIN, UNSPECIFIED Qualifiers: Chest pain type: unspecified Qualified Code(s): R07.9 - Chest pain, unspecified (2) Chronic pancreatitis Code(s): K86.1 - OTHER CHRONIC PANCREATITIS Qualifiers: Pancreatitis type: unspecified pancreatitis type Qualified Code(s): K86.1 - Other chronic pancreatitis (3) Abdominal pain Code(s): R10.9 - UNSPECIFIED ABDOMINAL PAIN Qualifiers: Abdominal location: upper abdomen, unspecified Qualified Code(s): R10.10 - Upper abdominal pain, unspecified (4) Asthma Code(s): J45.909 - UNSPECIFIED ASTHMA, UNCOMPLICATED Qualifiers: Asthma severity: unspecified severity (5) COPD (chronic obstructive pulmonary disease) Code(s): J44.9 - CHRONIC OBSTRUCTIVE PULMONARY DISEASE, UNSPECIFIED (6) Chronic diastolic (congestive) heart failure Code(s): I50.32 - CHRONIC DIASTOLIC (CONGESTIVE) HEART FAILURE (7) Coronary artery disease Code(s): I25.10 - ATHSCL HEART DISEASE OF [place] CORONARY ARTERY W/O ANG PCTRS (8) Diabetes mellitus Code(s): E11.9 - TYPE 2 DIABETES MELLITUS WITHOUT COMPLICATIONS Qualifiers: Diabetes mellitus type: type 2 Diabetes mellitus complication detail: with unspecified neuropathy (9) Esophagitis determined by endoscopy Code(s): K20.9 - ESOPHAGITIS, UNSPECIFIED (10) Hyperlipidemia Code(s): E78.5 - HYPERLIPIDEMIA, UNSPECIFIED (11) Hypertension Code(s): I10 - ESSENTIAL (PRIMARY) HYPERTENSION Qualifiers: Hypertension type: essential hypertension Qualified Code(s): I10 - Essential (primary) hypertension (12) Hypertension associated with diabetes Code(s): E11.59 - TYPE 2 DIABETES MELLITUS WITH OTH CIRCULATORY COMPLICATIONS; I10 - ESSENTIAL (PRIMARY) HYPERTENSION (13) IPMN (intraductal papillary mucinous neoplasm) Code(s): D49.0 - NEOPLASM OF UNSPECIFIED BEHAVIOR OF DIGESTIVE SYSTEM (14) Myocardial infarct Code(s): I21.3 - ST ELEVATION (STEMI) MYOCARDIAL INFARCTION OF UNSP SITE (15) GRACIE (obstructive sleep apnea) Code(s): G47.33 - OBSTRUCTIVE SLEEP APNEA (ADULT) (PEDIATRIC) (16) Type 2 diabetes mellitus with diabetic neuropathy Code(s): E11.40 - TYPE 2 DIABETES MELLITUS WITH DIABETIC NEUROPATHY, UNSP (17) Renal calculus, left Code(s): N20.0 - CALCULUS OF KIDNEY (18) Umbilical hernia Code(s): K42.9 - UMBILICAL HERNIA WITHOUT OBSTRUCTION OR GANGRENE Qualifiers: Obstruction and gangrene presence: without obstruction or gangrene Qualified Code(s): K42.9 - Umbilical hernia without obstruction or gangrene (19) S/P lumbar spinal fusion Code(s): Z98.1 - ARTHRODESIS STATUS (20) Tracheostomy in place Code(s): Z98.89 - OTHER SPECIFIED POSTPROCEDURAL STATES * DO NOT USE * (21) H/O umbilical hernia repair Code(s): Z98.890 - OTHER SPECIFIED POSTPROCEDURAL STATES; Z87.19 - PERSONAL HISTORY OF OTHER DISEASES OF THE DIGESTIVE SYSTEM (22) SBO (small bowel obstruction) Code(s): K56.609 - UNSP INTESTNL OBST, UNSP TO PARTIAL VERSUS COMPLETE OBST Assessment/Plan 1. s/p umbilical hernia repair with post-op ileus/SBO - post NGT decompression 2. Chronic pancreatitis and esophagitis 3. Chronic atypical chest pain 4. CAD s/p [place], post PCI (stents), angina pectoris 6. HTN/HCVD 5. Hyperlipidemia 6. Diastolic dysfunction and pulmonary HTN 7. OSAS 8. COPD/Asthma 9. Acute on CKD resolved, hypokalemia 10. Hematuria with left non-obstructive calculus PLAN: 1. Continue analgesics as needed 2. Bronchodilator, O2 as needed 3. IV Lopressor for BP control awaiting bowel function recovery and resumption of oral meds 4. Clears as tolerated, encouraged ambulation, replete K
[2017-09-05] MEDS: MORPHINE SULFATE 10 MG/1 ML *VIAL IVPUSH PRN ×2 (16:28→20:36)
[2017-09-05] MEDS: ROSUVASTATIN CA 10 MG TABLET (FP) PO SCH (22:13)
[2017-09-05] MEDS: INSULIN DETEMIR 100 UNITS/ML MDV SQ SCH (22:14)
[2017-09-05] MEDS: GABAPENTIN 400 MG CAPSULE (FP) PO SCH (22:14)
[2017-09-05] MEDS: MONTELUKAST NA 10 MG TABLET PO SCH (22:15)
[2017-09-06] MEDS: METOCLOPRAMIDE HCL INJECTION 10 MG/2 ML VIAL IVPUSH SCH ×4 (03:18→21:07)
[2017-09-06] MEDS: METOPROLOL TARTRATE 5 MG/5 ML VIAL IVPB PRN (03:18)
[2017-09-06] MEDS: INSULIN SLIDING SCALE (NOVOLOG) 1 VIAL SQ SCH ×4 (06:13→21:07)
[2017-09-06] MEDS: LIPASE/PROTEASE/AMYLASE 36,000 UNIT CAPSULE PO SCH ×3 (08:39→17:37)
[2017-09-06] MEDS: TAMSULOSIN HCL 0.4 MG CAP.ER.24H (FP) PO SCH (08:39)
[2017-09-06 08:50] LABS: ANION GAP 10 (8-16); BLOOD UREA NITROGEN 16 mg/dL (7-18); CALCIUM 8.5 mg/dL (8.5-10.1); CHLORIDE 101 mmol/L (98-107); CO2 27 mmol/L (21-32); CREATININE 0.9 mg/dL (0.7-1.3); GLUCOSE,RANDOM 294 mg/dL (74-106); MAGNESIUM 1.7 mg/dL (1.8-2.4); SODIUM 138 mmol/L (136-145)
[2017-09-06 09:15] LABS: POTASSIUM 2.8 mmol/L (3.5-5.1)
[2017-09-06] MEDS ORDERED: PT OWN MED DRAWER 7, Y5N ONE ×2 (10:23→17:31)
[2017-09-06] MEDS: PANTOPRAZOLE SODIUM 40 MG VIAL IVPUSH SCH (10:33)
[2017-09-06] MEDS: Methylnaltrexone Bromide 12 MG/0.6 ML KIT SQ SCH (10:33)
[2017-09-06] MEDS: HEPARIN NA (PORCINE) 5,000 UNITS/ML 1ML VIAL SQ SCH ×2 (10:36→21:07)
[2017-09-06] MEDS: AMINO ACIDS 4.25%/D5W 1,000 ML IV SCH ×2 (10:37→21:16)
[2017-09-06] MEDS: amLODIPine BESYLATE 2.5 MG TABLET (FP) PO SCH (10:38)
[2017-09-06] MEDS: FINASTERIDE 5 MG TABLET (FP) PO SCH (10:40)
[2017-09-06] MEDS: RAMIPRIL 5 MG CAPSULE (FP) PO SCH (10:40)
[2017-09-06] MEDS: CLOPIDOGREL BISULFATE 75 MG TABLET (FP) PO SCH (10:40)
[2017-09-06] MEDS: ASPIRIN COATED 81 MG TABLET.EC PO SCH (10:40)
[2017-09-06] MEDS: GABAPENTIN 300 MG CAPSULE (FP) PO SCH (10:41)
[2017-09-06] MEDS: POLYETHYLENE GLYCOL 3350 119 GM BTL PO SCH ×2 (10:45→21:16)
[2017-09-06] MEDS ORDERED: POTASSIUM CHLORIDE TABS 20 MEQ TABLET.ER (FP) PO ONE ×2 (10:45→23:45)
[2017-09-06] MEDS: BUDESONIDE/FORMETEROL FUMARATE 160/4.5 mcg INHALER IH SCH ×2 (10:46→21:08)
[2017-09-06] MEDS: TIOTROPIUM BROMIDE 18 MCG/INH (DEVICE W/ 5 CAPSULES) IH SCH (10:46)
--- NOTE | 2017-09-06 11:20 | PN ---
Progress Note, Physician History of Present Illness: Abdomen distension resolved, NGT removed, remains NPO except for sips, passing small BM awaiting bowel recovery. - Current Medication List Current Medications: Active Medications Amlodipine Besylate (Norvasc -) 5 mg PO DAILY [facility] Last Admin: 09/06/17 10:38 Dose: 5 mg Aspirin (Ecotrin -) 81 mg PO DAILY [facility] Last Admin: 09/06/17 10:40 Dose: 81 mg Budesonide/Formoterol Fumarate (Symbicort 160/4.5mcg -) 1 puff IH BID [facility] Last Admin: 09/06/17 10:46 Dose: 1 puff Clopidogrel Bisulfate (Plavix -) 75 mg PO DAILY [facility] Last Admin: 09/06/17 10:40 Dose: 75 mg Ezetimibe (Zetia -) 10 mg PO DAILY [facility] Last Admin: 09/05/17 09:22 Dose: Not Given Finasteride (Proscar -) 5 mg PO DAILY [facility] Last Admin: 09/06/17 10:40 Dose: 5 mg Gabapentin (Neurontin -) 600 mg PO DAILY [facility] Last Admin: 09/06/17 10:41 Dose: 600 mg Gabapentin (Neurontin -) 800 mg PO HS [facility] Last Admin: 09/05/17 22:14 Dose: Not Given Heparin Sodium (Porcine) (Heparin -) 5,000 unit SQ BID [facility] Last Admin: 09/06/17 10:36 Dose: 5,000 unit Amino Acids (Clinimix -) 1,000 mls @ 84 mls/hr IV Q12H [facility] Last Admin: 09/06/17 10:37 Dose: 84 mls/hr Insulin Aspart (Novolog Vial Sliding Scale -) 1 vial SQ ACHS [facility] PRN Reason: Protocol Last Admin: 09/06/17 06:13 Dose: 4 units Insulin Detemir (Levemir Vial) 20 units SQ HS [facility] Last Admin: 09/05/17 22:14 Dose: 20 units Methylnaltrexone [place] (Relistor -) 8 mg SQ DAILY [facility] Last Admin: 09/06/17 10:33 Dose: 8 mg Metoclopramide HCl (Reglan Injection -) 10 mg IVPUSH Q6H-IV [facility] Last Admin: 09/06/17 10:28 Dose: 10 mg Metoprolol Tartrate (Lopressor Injection -) 5 mg IVPB Q4H PRN PRN Reason: HYPERTENSION Last Admin: 09/06/17 03:18 Dose: 5 mg Montelukast Sodium (Singulair -) 10 mg PO HS [facility] Last Admin: 09/05/17 22:15 Dose: Not Given Morphine Sulfate (Morphine Injection -) 4 mg IVPUSH Q4H PRN PRN Reason: PAIN Last Admin: 09/05/17 20:36 Dose: 4 mg Ondansetron HCl (Zofran Injection) 4 mg IVPUSH Q6H PRN PRN Reason: NAUSEA AND/OR VOMITING Last Admin: 09/03/17 14:54 Dose: 4 mg Pancrelipase (Creon Dr 36,000 Units Capsule) 1 cap PO TIDCM [facility] Last Admin: 09/06/17 08:39 Dose: Not Given Pantoprazole Sodium (Protonix Iv) 40 mg IVPUSH DAILY [facility] Last Admin: 09/06/17 10:33 Dose: 40 mg Polyethylene Glycol (Miralax (For Daily Use) -) 17 gm PO DAILY [facility] Last Admin: 09/06/17 10:45 Dose: 17 grams Ramipril (Altace -) 20 mg PO DAILY [facility] Last Admin: 09/06/17 10:40 Dose: 20 mg Rosuvastatin Calcium (Crestor -) 10 mg PO [facility] Last Admin: 09/05/17 22:13 Dose: Not Given Tamsulosin HCl (Flomax -) 0.4 mg PO DAILY@0830 [facility] Last Admin: 09/06/17 08:39 Dose: Not Given Tiotropium [place] (Spiriva -) 1 puff IH DAILY [facility] Last Admin: 09/06/17 10:46 Dose: 1 puff - Objective Vital Signs: Vital Signs Temperature 98.6 F 09/06/17 05:59 Pulse Rate 82 09/06/17 05:59 Respiratory Rate 18 09/06/17 05:59 Blood Pressure 158/86 09/06/17 05:59 O2 Sat by Pulse Oximetry (%) 96 09/05/17 22:00 Constitutional: Yes: No Distress, Calm Neck: Yes: Supple Cardiovascular: Yes: Regular Rate and Rhythm Respiratory: Yes: Regular, Diminished Gastrointestinal: Yes: Soft, Hypoactive Bowel Sounds Edema: No Labs: CBC, BMP 09/05/17 06:40 09/06/17 07:20 INR, PTT INR 1.22 (0.82-1.09) H 08/21/17 06:55 Problem List - Problems (1) Chest pain Code(s): R07.9 - CHEST PAIN, UNSPECIFIED Qualifiers: Chest pain type: unspecified Qualified Code(s): R07.9 - Chest pain, unspecified (2) Chronic pancreatitis Code(s): K86.1 - OTHER CHRONIC PANCREATITIS Qualifiers: Pancreatitis type: unspecified pancreatitis type Qualified Code(s): K86.1 - Other chronic pancreatitis (3) Abdominal pain Code(s): R10.9 - UNSPECIFIED ABDOMINAL PAIN Qualifiers: Abdominal location: upper abdomen, unspecified Qualified Code(s): R10.10 - Upper abdominal pain, unspecified (4) Asthma Code(s): J45.909 - UNSPECIFIED ASTHMA, UNCOMPLICATED Qualifiers: Asthma severity: unspecified severity (5) COPD (chronic obstructive pulmonary disease) Code(s): J44.9 - CHRONIC OBSTRUCTIVE PULMONARY DISEASE, UNSPECIFIED (6) Chronic diastolic (congestive) heart failure Code(s): I50.32 - CHRONIC DIASTOLIC (CONGESTIVE) HEART FAILURE (7) Coronary artery disease Code(s): I25.10 - ATHSCL HEART DISEASE OF [place] CORONARY ARTERY W/O ANG PCTRS (8) Diabetes mellitus Code(s): E11.9 - TYPE 2 DIABETES MELLITUS WITHOUT COMPLICATIONS Qualifiers: Diabetes mellitus type: type 2 Diabetes mellitus complication detail: with unspecified neuropathy (9) Esophagitis determined by endoscopy Code(s): K20.9 - ESOPHAGITIS, UNSPECIFIED (10) Hyperlipidemia Code(s): E78.5 - HYPERLIPIDEMIA, UNSPECIFIED (11) Hypertension Code(s): I10 - ESSENTIAL (PRIMARY) HYPERTENSION Qualifiers: Hypertension type: essential hypertension Qualified Code(s): I10 - Essential (primary) hypertension (12) Hypertension associated with diabetes Code(s): E11.59 - TYPE 2 DIABETES MELLITUS WITH OTH CIRCULATORY COMPLICATIONS; I10 - ESSENTIAL (PRIMARY) HYPERTENSION (13) IPMN (intraductal papillary mucinous neoplasm) Code(s): D49.0 - NEOPLASM OF UNSPECIFIED BEHAVIOR OF DIGESTIVE SYSTEM (14) Myocardial infarct Code(s): I21.3 - ST ELEVATION (STEMI) MYOCARDIAL INFARCTION OF UNSP SITE (15) GRACIE (obstructive sleep apnea) Code(s): G47.33 - OBSTRUCTIVE SLEEP APNEA (ADULT) (PEDIATRIC) (16) Type 2 diabetes mellitus with diabetic neuropathy Code(s): E11.40 - TYPE 2 DIABETES MELLITUS WITH DIABETIC NEUROPATHY, UNSP (17) Renal calculus, left Code(s): N20.0 - CALCULUS OF KIDNEY (18) Umbilical hernia Code(s): K42.9 - UMBILICAL HERNIA WITHOUT OBSTRUCTION OR GANGRENE Qualifiers: Obstruction and gangrene presence: without obstruction or gangrene Qualified Code(s): K42.9 - Umbilical hernia without obstruction or gangrene (19) S/P lumbar spinal fusion Code(s): Z98.1 - ARTHRODESIS STATUS (20) Tracheostomy in place Code(s): Z98.89 - OTHER SPECIFIED POSTPROCEDURAL STATES * DO NOT USE * (21) H/O umbilical hernia repair Code(s): Z98.890 - OTHER SPECIFIED POSTPROCEDURAL STATES; Z87.19 - PERSONAL HISTORY OF OTHER DISEASES OF THE DIGESTIVE SYSTEM (22) SBO (small bowel obstruction) Code(s): K56.609 - UNSP INTESTNL OBST, UNSP TO PARTIAL VERSUS COMPLETE OBST Assessment/Plan 1. s/p umbilical hernia repair with post-op ileus/SBO - post NGT decompression 2. Chronic pancreatitis and esophagitis 3. Chronic atypical chest pain 4. CAD s/p [place], post PCI (stents), angina pectoris 6. HTN/HCVD 5. Hyperlipidemia 6. Diastolic dysfunction and pulmonary HTN 7. OSAS 8. COPD/Asthma 9. Acute on CKD resolved, hypokalemia 10. Hematuria with left non-obstructive calculus PLAN: 1. Continue analgesics as needed 2. Bronchodilator, O2 as needed, DVT and GI prophylaxis 3. D/c IV Lopressor and resume ASA 81 qd and Plavix 75 qd, Norvasc 5 qd, Zetia 10 qd, Altace 20 qd, and Crestor 10 qhs as bowel function recovers 4. Advance diet as tolerated, encouraged ambulation, replete K and Mg
[2017-09-06] MEDS ORDERED: MAGNESIUM OXIDE 400 MG TABLET (FP) PO ONE (11:30)
[2017-09-06] MEDS: EZETIMIBE 10 MG TABLET (FP) PO SCH (11:39)
[2017-09-06] MEDS ORDERED: MAGNESIUM 1GM/D5W 100ML - 100 ML IVPB IVPB ONE (11:59)
--- NOTE | 2017-09-06 12:03 | PN ---
Progress Note, Physician Chief Complaint: had small bowel movement on clears liquid diet wants his nebulizer ng tube removed abdominal pain is better - Current Medication List Current Medications: Active Medications Albuterol Sulfate (Ventolin 0.083% Nebulizer Soln -) 1 amp NEB Q4H [facility] Amlodipine Besylate (Norvasc -) 5 mg PO DAILY [facility] Last Admin: 09/06/17 10:38 Dose: 5 mg Aspirin (Ecotrin -) 81 mg PO DAILY [facility] Last Admin: 09/06/17 10:40 Dose: 81 mg Budesonide/Formoterol Fumarate (Symbicort 160/4.5mcg -) 1 puff IH BID [facility] Last Admin: 09/06/17 10:46 Dose: 1 puff Clopidogrel Bisulfate (Plavix -) 75 mg PO DAILY [facility] Last Admin: 09/06/17 10:40 Dose: 75 mg Ezetimibe (Zetia -) 10 mg PO DAILY [facility] Last Admin: 09/06/17 11:39 Dose: 10 mg Finasteride (Proscar -) 5 mg PO DAILY [facility] Last Admin: 09/06/17 10:40 Dose: 5 mg Gabapentin (Neurontin -) 600 mg PO DAILY [facility] Last Admin: 09/06/17 10:41 Dose: 600 mg Gabapentin (Neurontin -) 800 mg PO HS [facility] Last Admin: 09/05/17 22:14 Dose: Not Given Heparin Sodium (Porcine) (Heparin -) 5,000 unit SQ BID [facility] Last Admin: 09/06/17 10:36 Dose: 5,000 unit Amino Acids (Clinimix -) 1,000 mls @ 84 mls/hr IV Q12H [facility] Last Admin: 09/06/17 10:37 Dose: 84 mls/hr Insulin Aspart (Novolog Vial Sliding Scale -) 1 vial SQ ACHS [facility] PRN Reason: Protocol Last Admin: 09/06/17 11:39 Dose: 4 units Insulin Detemir (Levemir Vial) 20 units SQ HS [facility] Last Admin: 09/05/17 22:14 Dose: 20 units Methylnaltrexone [place] (Relistor -) 8 mg SQ DAILY [facility] Last Admin: 09/06/17 10:33 Dose: 8 mg Metoclopramide HCl (Reglan Injection -) 10 mg IVPUSH Q6H-IV [facility] Last Admin: 09/06/17 10:28 Dose: 10 mg Montelukast Sodium (Singulair -) 10 mg PO [facility] Last Admin: 09/05/17 22:15 Dose: Not Given Morphine Sulfate (Morphine Injection -) 4 mg IVPUSH Q4H PRN PRN Reason: PAIN Last Admin: 09/05/17 20:36 Dose: 4 mg Ondansetron HCl (Zofran Injection) 4 mg IVPUSH Q6H PRN PRN Reason: NAUSEA AND/OR VOMITING Last Admin: 09/03/17 14:54 Dose: 4 mg Pancrelipase (Creon Dr 36,000 Units Capsule) 1 cap PO TIDCM [facility] Last Admin: 09/06/17 08:39 Dose: Not Given Pantoprazole Sodium (Protonix Iv) 40 mg IVPUSH DAILY [facility] Last Admin: 09/06/17 10:33 Dose: 40 mg Polyethylene Glycol (Miralax (For Daily Use) -) 17 gm PO DAILY [facility] Last Admin: 09/06/17 10:45 Dose: 17 grams Ramipril (Altace -) 20 mg PO DAILY [facility] Last Admin: 09/06/17 10:40 Dose: 20 mg Rosuvastatin Calcium (Crestor -) 10 mg PO [facility] Last Admin: 09/05/17 22:13 Dose: Not Given Tamsulosin HCl (Flomax -) 0.4 mg PO DAILY@0830 [facility] Last Admin: 09/06/17 08:39 Dose: Not Given Tiotropium [place] (Spiriva -) 1 puff IH DAILY [facility] Last Admin: 09/06/17 10:46 Dose: 1 puff - Objective Vital Signs: Vital Signs Temperature 98.6 F 09/06/17 05:59 Pulse Rate 82 09/06/17 05:59 Respiratory Rate 18 09/06/17 05:59 Blood Pressure 158/86 09/06/17 05:59 O2 Sat by Pulse Oximetry (%) 96 09/05/17 22:00 Constitutional: Yes: Calm Neck: Yes: Other (trach with cap) Cardiovascular: Yes: Regular Rate and Rhythm, S1, S2 Respiratory: Yes: CTA Bilaterally Gastrointestinal: Yes: Soft, Hypoactive Bowel Sounds Labs: CBC, BMP 09/05/17 06:40 09/06/17 07:20 INR, PTT INR 1.22 (0.82-1.09) H 08/21/17 06:55 Problem List - Problems (1) SBO (small bowel obstruction) Assessment/Plan: ngt tube removed clear liquid diet had small BM electrolytes repleted Code(s): K56.609 - UNSP INTESTNL OBST, UNSP TO PARTIAL VERSUS COMPLETE OBST (2) ASHD (arteriosclerotic heart disease) Assessment/Plan: aspirin,plavix,zetia Code(s): I25.10 - ATHSCL HEART DISEASE OF [place] CORONARY ARTERY W/O ANG PCTRS (3) Hypokalemia Assessment/Plan: repeat bmp today repleted K and Magnesium Code(s): E87.6 - HYPOKALEMIA (4) Hypertension Assessment/Plan: iv metoprolol as patient not taking po meds Code(s): I10 - ESSENTIAL (PRIMARY) HYPERTENSION Qualifiers: Hypertension type: essential hypertension Qualified Code(s): I10 - Essential (primary) hypertension (5) BPH (benign prostatic hyperplasia) Assessment/Plan: flomax Code(s): N40.0 - BENIGN PROSTATIC HYPERPLASIA WITHOUT LOWER URINRY TRACT SYMP (6) COPD (chronic obstructive pulmonary disease) Assessment/Plan: bronchodilator nebulizers Code(s): J44.9 - CHRONIC OBSTRUCTIVE PULMONARY DISEASE, UNSPECIFIED (7) 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
[2017-09-06] MEDS: ALBUTEROL SO4 0.083% IH SOL 2.5 MG/3 ML VIAL.NEB. NEB SCH ×2 (13:10→21:49)
[2017-09-06 14:00] LABS: ANION GAP 12 (8-16); BLOOD UREA NITROGEN 18 mg/dL (7-18); CALCIUM 8.9 mg/dL (8.5-10.1); CHLORIDE 99 mmol/L (98-107); CO2 26 mmol/L (21-32); CREATININE 1.1 mg/dL (0.7-1.3); SODIUM 137 mmol/L (136-145)
[2017-09-06 14:21] LABS: GLUCOSE,RANDOM 338 mg/dL (74-106); POTASSIUM 2.8 mmol/L (3.5-5.1)
--- NOTE | 2017-09-06 14:35 | PN ---
GI Progress Note Subjective: No vomiting. States having had a rough night due to pain near umbilicus States having had a small BM on clinimix/relistor/miralax/protonix - Objective Vital Signs: Vital Signs Temperature 98.6 F 09/06/17 05:59 Pulse Rate 82 09/06/17 05:59 Respiratory Rate 18 09/06/17 05:59 Blood Pressure 158/86 09/06/17 05:59 O2 Sat by Pulse Oximetry (%) 96 09/05/17 22:00 Constitutional: Calm Eyes: No: Sclera Icterus Cardiovascular: Yes: Regular Rate and Rhythm Respiratory: Yes: CTA Bilaterally Gastrointestinal Inspection: Yes: Scars (periumbilical with some induration around left lateral border of umbilicus) ...Auscultate: Yes: Normoactive Bowel Sounds ...Palpate: Yes: Soft, Tenderness (TTP upon palpation of periumbilical area) ...Percussion: No: Tympanitic Edema: No (no LE edema) Neurological: Yes: Alert Labs: CBC, BMP 09/05/17 06:40 09/06/17 13:25 INR, PTT INR 1.22 (0.82-1.09) H 08/21/17 06:55 Problem List - Problems (1) Abdominal pain Assessment/Plan: seems to be focused at umbilical area post-op care per surgery: discussed w/ dr. juares re: periubilical pain. he will reassess stopped relistor (day 8) increased miralax to 17g bid corerct lytes and control glucose. both can hinder gi motility Wean off opiate analgesia Code(s): R10.9 - UNSPECIFIED ABDOMINAL PAIN Qualifiers: Abdominal location: upper abdomen, unspecified Qualified Code(s): R10.10 - Upper abdominal pain, unspecified
--- NOTE | 2017-09-06 15:06 | PN ---
Progress Note (short form) - Note Progress Note: No new events Small BM On clears Vital Signs Period Temp Pulse Resp BP Sys/Gates Pulse Ox Last 24 Hr 98.4 F-99.1 F 60-104 18-20 154-171/82-100 96 Abd soft, wound c/d/i CBC, BMP 09/05/17 06:40 09/06/17 13:25 Hypokalemic- replace potassium Ambulate Glycemic control Possible full liquids in am Problem List - Problems (1) Umbilical hernia Code(s): K42.9 - UMBILICAL HERNIA WITHOUT OBSTRUCTION OR GANGRENE Qualifiers: Obstruction and gangrene presence: without obstruction or gangrene Qualified Code(s): K42.9 - Umbilical hernia without obstruction or gangrene
[2017-09-06] MEDS: MORPHINE SULFATE 10 MG/1 ML *VIAL IVPUSH PRN ×2 (15:40→21:13)
[2017-09-06 16:50] LABS: ALBUMIN 2.9 g/dl (3.4-5.0); ALK PHOS 101 U/L (45-117); ANION GAP 11 (8-16); BILIRUBIN,TOTAL 0.7 mg/dL (0.2-1.0); BLOOD UREA NITROGEN 17 mg/dL (7-18); CALCIUM 8.4 mg/dL (8.5-10.1); CHLORIDE 100 mmol/L (98-107); CO2 25 mmol/L (21-32); MAGNESIUM 1.9 mg/dL (1.8-2.4); SGOT/AST 55 U/L (15-37); SGPT/ALT 92 U/L (12-78); SODIUM 136 mmol/L (136-145)
[2017-09-06 16:58] LABS: GLUCOSE,RANDOM 360 mg/dL (74-106); POTASSIUM 2.8 mmol/L (3.5-5.1)
[2017-09-06] MEDS: ONDANSETRON 4 MG/2 ML VIAL IVPUSH PRN (17:55)
[2017-09-06 20:46] LABS: MAGNESIUM 1.9 mg/dL (1.8-2.4)
[2017-09-06 20:49] LABS: POTASSIUM 2.7 mmol/L (3.5-5.1)
[2017-09-06] MEDS ORDERED: KCL 10 MEQ IVPB 10 MEQ/100 ML INFUS.BAG IVPB SCH (21:00)
[2017-09-06] MEDS ORDERED: INSULIN (NOVOLOG) ASPART 100 UNITS/ML 10ML VIAL ONE (21:04)
[2017-09-06] MEDS: MONTELUKAST NA 10 MG TABLET PO SCH (21:16)
[2017-09-06] MEDS: ROSUVASTATIN CA 10 MG TABLET (FP) PO SCH (21:16)
[2017-09-06] MEDS: GABAPENTIN 400 MG CAPSULE (FP) PO SCH (21:16)
[2017-09-06] MEDS: INSULIN DETEMIR 100 UNITS/ML MDV SQ SCH (21:16)
[2017-09-06] MEDS: POTASSIUM CHLORIDE 10 MEQ in SODIUM CHLORIDE 100 ML IVPB SCH ×2 (22:01→23:08)
[2017-09-07] MEDS: POTASSIUM CHLORIDE 10 MEQ in SODIUM CHLORIDE 100 ML IVPB SCH ×4 (00:11→18:49)
[2017-09-07] MEDS: MORPHINE SULFATE 10 MG/1 ML *VIAL IVPUSH PRN ×2 (01:55→14:41)
[2017-09-07] MEDS: ALBUTEROL SO4 0.083% IH SOL 2.5 MG/3 ML VIAL.NEB. NEB SCH ×6 (02:00→21:20)
[2017-09-07] MEDS: METOCLOPRAMIDE HCL INJECTION 10 MG/2 ML VIAL IVPUSH SCH ×4 (02:07→22:14)
[2017-09-07] MEDS: AMINO ACIDS 4.25%/D5W 1,000 ML IV SCH ×3 (03:30→22:07)
[2017-09-07] MEDS: KCL 10 MEQ IVPB 10 MEQ/100 ML INFUS.BAG IVPB SCH ×3 (04:37→06:35)
[2017-09-07] MEDS: INSULIN SLIDING SCALE (NOVOLOG) 1 VIAL SQ SCH ×4 (06:36→22:14)
[2017-09-07] MEDS ORDERED: INSULIN (NOVOLOG) ASPART 100 UNITS/ML 10ML VIAL ONE ×2 (06:49→11:24)
[2017-09-07] MEDS ORDERED: PT OWN MED DRAWER 7, Y5N ONE ×2 (07:27→11:22)
[2017-09-07] MEDS: TAMSULOSIN HCL 0.4 MG CAP.ER.24H (FP) PO SCH (08:06)
[2017-09-07] MEDS: LIPASE/PROTEASE/AMYLASE 36,000 UNIT CAPSULE PO SCH ×3 (08:06→17:11)
--- NOTE | 2017-09-07 10:45 | PN ---
Progress Note, Physician Chief Complaint: Events noted Post umbilical hernia repair - complains of post op abdominal incisional pain receiving analgesics Complains of weakness History of Present Illness: Patient was seen and examined. Awake and alert. Chart was reviewed Denies chest pain, SOB or palpitations As outlined above. Episode of nausea/vomiting yesterday when he was given clear liquids. Kept NPO thereafter - Current Medication List Current Medications: Active Medications Albuterol Sulfate (Ventolin 0.083% Nebulizer Soln -) 1 amp NEB Q4HPO [facility] Last Admin: 09/07/17 09:00 Dose: 1 amp Amlodipine Besylate (Norvasc -) 5 mg PO DAILY [facility] Last Admin: 09/06/17 10:38 Dose: 5 mg Aspirin (Ecotrin -) 81 mg PO DAILY [facility] Last Admin: 09/06/17 10:40 Dose: 81 mg Budesonide/Formoterol Fumarate (Symbicort 160/4.5mcg -) 1 puff IH BID [facility] Last Admin: 09/06/17 21:08 Dose: 1 puff Clopidogrel Bisulfate (Plavix -) 75 mg PO DAILY [facility] Last Admin: 09/06/17 10:40 Dose: 75 mg Ezetimibe (Zetia -) 10 mg PO DAILY [facility] Last Admin: 09/06/17 11:39 Dose: 10 mg Finasteride (Proscar -) 5 mg PO DAILY [facility] Last Admin: 09/06/17 10:40 Dose: 5 mg Gabapentin (Neurontin -) 600 mg PO DAILY [facility] Last Admin: 09/06/17 10:41 Dose: 600 mg Gabapentin (Neurontin -) 800 mg PO HS [facility] Last Admin: 09/06/17 21:16 Dose: Not Given Heparin Sodium (Porcine) (Heparin -) 5,000 unit SQ BID [facility] Last Admin: 09/06/17 21:07 Dose: 5,000 unit Amino Acids (Clinimix -) 1,000 mls @ 84 mls/hr IV Q12H [facility] Last Admin: 09/07/17 08:06 Dose: Not Given Insulin Aspart (Novolog Vial Sliding Scale -) 1 vial SQ [facility] PRN Reason: Protocol Last Admin: 09/07/17 06:36 Dose: 8 units Insulin Detemir (Levemir Vial) 20 units SQ [facility] Last Admin: 09/06/17 21:16 Dose: Not Given Methylnaltrexone [place] (Relistor -) 8 mg SQ DAILY [facility] Last Admin: 09/06/17 10:33 Dose: 8 mg Metoclopramide HCl (Reglan Injection -) 10 mg IVPUSH Q6H-IV [facility] Last Admin: 09/07/17 08:54 Dose: 10 mg Montelukast Sodium (Singulair -) 10 mg PO HS [facility] Last Admin: 09/06/17 21:16 Dose: Not Given Morphine Sulfate (Morphine Injection -) 4 mg IVPUSH Q4H PRN PRN Reason: PAIN Last Admin: 09/07/17 01:55 Dose: 4 mg Ondansetron HCl (Zofran Injection) 4 mg IVPUSH Q6H PRN PRN Reason: NAUSEA AND/OR VOMITING Last Admin: 09/06/17 17:55 Dose: 4 mg Pancrelipase (Creon Dr 36,000 Units Capsule) 1 cap PO TIDCM [facility] Last Admin: 09/07/17 08:06 Dose: Not Given Pantoprazole Sodium (Protonix Iv) 40 mg IVPUSH DAILY [facility] Last Admin: 09/06/17 10:33 Dose: 40 mg Polyethylene Glycol (Miralax (For Daily Use) -) 17 gm PO BID [facility] Last Admin: 09/06/17 21:16 Dose: Not Given Ramipril (Altace -) 20 mg PO DAILY [facility] Last Admin: 09/06/17 10:40 Dose: 20 mg Rosuvastatin Calcium (Crestor -) 10 mg PO [facility] Last Admin: 09/06/17 21:16 Dose: Not Given Tamsulosin HCl (Flomax -) 0.4 mg PO DAILY@0830 [facility] Last Admin: 09/07/17 08:06 Dose: Not Given Tiotropium [place] (Spiriva -) 1 puff IH DAILY [facility] Last Admin: 09/06/17 10:46 Dose: 1 puff - Objective Vital Signs: Vital Signs Temperature 99.6 F 09/07/17 09:57 Pulse Rate 96 H 09/07/17 09:57 Respiratory Rate 20 09/07/17 09:57 Blood Pressure 152/79 09/07/17 09:57 O2 Sat by Pulse Oximetry (%) 96 09/06/17 20:22 Neck: Yes: Supple Cardiovascular: Yes: Regular Rate and Rhythm, S1, S2 Respiratory: Yes: Diminished Gastrointestinal: Yes: Abdomen, Obese, Tenderness, Other (Post op umblical hernia) Edema: No Labs: CBC, BMP 09/05/17 06:40 INR, PTT INR 1.22 (0.82-1.09) H 08/21/17 06:55 Problem List - Problems (1) Chronic pancreatitis Code(s): K86.1 - OTHER CHRONIC PANCREATITIS Qualifiers: Pancreatitis type: unspecified pancreatitis type Qualified Code(s): K86.1 - Other chronic pancreatitis (2) 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 Code(s): E10.8 - TYPE 1 DIABETES MELLITUS WITH UNSPECIFIED COMPLICATIONS (3) Hematuria Code(s): R31.9 - HEMATURIA, UNSPECIFIED (4) Renal calculus, left Code(s): N20.0 - CALCULUS OF KIDNEY (5) ASHD (arteriosclerotic heart disease) Code(s): I25.10 - ATHSCL HEART DISEASE OF [place] CORONARY ARTERY W/O ANG PCTRS (6) Abdominal pain Code(s): R10.9 - UNSPECIFIED ABDOMINAL PAIN Qualifiers: Abdominal location: upper abdomen, unspecified Qualified Code(s): R10.10 - Upper abdominal pain, unspecified (7) Acute on chronic diastolic (congestive) heart failure Code(s): I50.33 - ACUTE ON CHRONIC DIASTOLIC (CONGESTIVE) HEART FAILURE (8) Anemia Code(s): D64.9 - ANEMIA, UNSPECIFIED (9) Asthma Code(s): J45.909 - UNSPECIFIED ASTHMA, UNCOMPLICATED Qualifiers: Asthma severity: unspecified severity (10) Diabetes mellitus Code(s): E11.9 - TYPE 2 DIABETES MELLITUS WITHOUT COMPLICATIONS Qualifiers: Diabetes mellitus type: type 2 Diabetes mellitus complication detail: with unspecified neuropathy (11) Hypertension Code(s): I10 - ESSENTIAL (PRIMARY) HYPERTENSION Qualifiers: Hypertension type: essential hypertension Qualified Code(s): I10 - Essential (primary) hypertension (12) IPMN (intraductal papillary mucinous neoplasm) Code(s): D49.0 - NEOPLASM OF UNSPECIFIED BEHAVIOR OF DIGESTIVE SYSTEM (13) GRACIE (obstructive sleep apnea) Code(s): G47.33 - OBSTRUCTIVE SLEEP APNEA (ADULT) (PEDIATRIC) Assessment/Plan 1. Post-operative umbilical hernia repair - SBO/post NGT decompression now taken out 2. Chronic pancreatitis and esophagitis 3. Chronic atypical chest pain 4. CAD s/p [place], post PCI (stents), angina pectoris 6. HTN/HCVD 5. Hyperlipidemia 6. Diastolic dysfunction and pulmonary HTN 7. OSAS 8. COPD/Asthma 9. Acute on CKD resolving 10. Hematuria with left non-obstructive calculus PLAN: 1. Continue analgesics as needed. Post surgery follow up 2. Bronchodilator 3. ASA and Plavix as tolerated 4. Amlodipine and Ramipril as tolerated 5. Ambulate and eventual PT Further plans are to follow Samuel Calvillo MD
[2017-09-07 11:05] LABS: ANION GAP 9 (8-16); BLOOD UREA NITROGEN 23 mg/dL (7-18); CALCIUM 8.6 mg/dL (8.5-10.1); CHLORIDE 103 mmol/L (98-107); CO2 26 mmol/L (21-32); CREATININE 1.3 mg/dL (0.7-1.3); GLUCOSE,RANDOM 282 mg/dL (74-106); POTASSIUM 3.1 mmol/L (3.5-5.1); SODIUM 138 mmol/L (136-145)
[2017-09-07] MEDS ORDERED: HYDROmorphone HCL CARPU-JECT 1 MG/1 ML DISP.SYRIN IVPUSH PRN (11:06)
--- NOTE | 2017-09-07 11:07 | PN ---
Progress Note, Physician Chief Complaint: last night patient vomitted and bed and clothes needs to be changes he vomitted multiple times currently NPO - Current Medication List Current Medications: Active Medications Albuterol Sulfate (Ventolin 0.083% Nebulizer Soln -) 1 amp NEB Q4HPO [facility] Last Admin: 09/07/17 09:00 Dose: 1 amp Amlodipine Besylate (Norvasc -) 5 mg PO DAILY [facility] Last Admin: 09/06/17 10:38 Dose: 5 mg Aspirin (Ecotrin -) 81 mg PO DAILY [facility] Last Admin: 09/06/17 10:40 Dose: 81 mg Budesonide/Formoterol Fumarate (Symbicort 160/4.5mcg -) 1 puff IH BID [facility] Last Admin: 09/06/17 21:08 Dose: 1 puff Clopidogrel Bisulfate (Plavix -) 75 mg PO DAILY [facility] Last Admin: 09/06/17 10:40 Dose: 75 mg Ezetimibe (Zetia -) 10 mg PO DAILY [facility] Last Admin: 09/06/17 11:39 Dose: 10 mg Finasteride (Proscar -) 5 mg PO DAILY [facility] Last Admin: 09/06/17 10:40 Dose: 5 mg Gabapentin (Neurontin -) 600 mg PO DAILY [facility] Last Admin: 09/06/17 10:41 Dose: 600 mg Gabapentin (Neurontin -) 800 mg PO HS [facility] Last Admin: 09/06/17 21:16 Dose: Not Given Heparin Sodium (Porcine) (Heparin -) 5,000 unit SQ BID [facility] Last Admin: 09/06/17 21:07 Dose: 5,000 unit Amino Acids (Clinimix -) 1,000 mls @ 84 mls/hr IV Q12H [facility] Last Admin: 09/07/17 08:06 Dose: Not Given Insulin Aspart (Novolog Vial Sliding Scale -) 1 vial SQ ACHS [facility] PRN Reason: Protocol Last Admin: 09/07/17 06:36 Dose: 8 units Insulin Detemir (Levemir Vial) 20 units SQ HS [facility] Last Admin: 09/06/17 21:16 Dose: Not Given Methylnaltrexone [place] (Relistor -) 8 mg SQ DAILY [facility] Last Admin: 09/06/17 10:33 Dose: 8 mg Metoclopramide HCl (Reglan Injection -) 10 mg IVPUSH Q6H-IV [facility] Last Admin: 09/07/17 08:54 Dose: 10 mg Montelukast Sodium (Singulair -) 10 mg PO HS [facility] Last Admin: 09/06/17 21:16 Dose: Not Given Morphine Sulfate (Morphine Injection -) 4 mg IVPUSH Q4H PRN PRN Reason: PAIN Last Admin: 09/07/17 01:55 Dose: 4 mg Ondansetron HCl (Zofran Injection) 4 mg IVPUSH Q6H PRN PRN Reason: NAUSEA AND/OR VOMITING Last Admin: 09/06/17 17:55 Dose: 4 mg Pancrelipase (Creon Dr 36,000 Units Capsule) 1 cap PO TIDCM [facility] Last Admin: 09/07/17 08:06 Dose: Not Given Pantoprazole Sodium (Protonix Iv) 40 mg IVPUSH DAILY [facility] Last Admin: 09/06/17 10:33 Dose: 40 mg Polyethylene Glycol (Miralax (For Daily Use) -) 17 gm PO BID [facility] Last Admin: 09/06/17 21:16 Dose: Not Given Ramipril (Altace -) 20 mg PO DAILY [facility] Last Admin: 09/06/17 10:40 Dose: 20 mg Rosuvastatin Calcium (Crestor -) 10 mg PO HS [facility] Last Admin: 09/06/17 21:16 Dose: Not Given Tamsulosin HCl (Flomax -) 0.4 mg PO DAILY@0830 [facility] Last Admin: 09/07/17 08:06 Dose: Not Given Tiotropium [place] (Spiriva -) 1 puff IH DAILY [facility] Last Admin: 09/06/17 10:46 Dose: 1 puff - Objective Vital Signs: Vital Signs Temperature 99.6 F 09/07/17 09:57 Pulse Rate 96 H 09/07/17 09:57 Respiratory Rate 20 09/07/17 09:57 Blood Pressure 152/79 09/07/17 09:57 O2 Sat by Pulse Oximetry (%) 96 09/06/17 20:22 Constitutional: Yes: Calm Neck: Yes: Other (trach) Cardiovascular: Yes: Regular Rate and Rhythm, S1, S2 Respiratory: Yes: CTA Bilaterally Gastrointestinal: Yes: Normal Bowel Sounds, Soft Neurological: Yes: Alert Labs: CBC, BMP 09/05/17 06:40 INR, PTT INR 1.22 (0.82-1.09) H 08/21/17 06:55 Problem List - Problems (1) SBO (small bowel obstruction) Assessment/Plan: potassium repleted NPO FUA ordered to r/o ileus vx fecal retention surgical FU on clinimix patient says morphine making him nauseous , he is on zofran and reglan no iv diluadid in hospital Code(s): K56.609 - UNSP INTESTNL OBST, UNSP TO PARTIAL VERSUS COMPLETE OBST (2) ASHD (arteriosclerotic heart disease) Assessment/Plan: aspirin,plavix,zetia Code(s): I25.10 - ATHSCL HEART DISEASE OF [place] CORONARY ARTERY W/O ANG PCTRS (3) Hypokalemia Assessment/Plan: repeat bmp today- k 3.1 order k dur check Magnesium Code(s): E87.6 - HYPOKALEMIA (4) Hypertension Assessment/Plan: iv metoprolol as patient not taking po meds Code(s): I10 - ESSENTIAL (PRIMARY) HYPERTENSION Qualifiers: Hypertension type: essential hypertension Qualified Code(s): I10 - Essential (primary) hypertension (5) BPH (benign prostatic hyperplasia) Assessment/Plan: flomax Code(s): N40.0 - BENIGN PROSTATIC HYPERPLASIA WITHOUT LOWER URINRY TRACT SYMP (6) COPD (chronic obstructive pulmonary disease) Assessment/Plan: bronchodilator nebulizers Code(s): J44.9 - CHRONIC OBSTRUCTIVE PULMONARY DISEASE, UNSPECIFIED (7) 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
[2017-09-07] MEDS: RAMIPRIL 5 MG CAPSULE (FP) PO SCH (11:19)
[2017-09-07] MEDS: FINASTERIDE 5 MG TABLET (FP) PO SCH (11:20)
[2017-09-07] MEDS: ASPIRIN COATED 81 MG TABLET.EC PO SCH (11:20)
[2017-09-07] MEDS: CLOPIDOGREL BISULFATE 75 MG TABLET (FP) PO SCH (11:20)
[2017-09-07] MEDS: POLYETHYLENE GLYCOL 3350 119 GM BTL PO SCH ×2 (11:20→22:15)
[2017-09-07] MEDS: amLODIPine BESYLATE 2.5 MG TABLET (FP) PO SCH (11:20)
[2017-09-07] MEDS: GABAPENTIN 300 MG CAPSULE (FP) PO SCH (11:20)
[2017-09-07] MEDS: EZETIMIBE 10 MG TABLET (FP) PO SCH (11:21)
[2017-09-07] MEDS: Methylnaltrexone Bromide 12 MG/0.6 ML KIT SQ SCH (11:28)
[2017-09-07] MEDS: PANTOPRAZOLE SODIUM 40 MG VIAL IVPUSH SCH (11:29)
[2017-09-07] MEDS: HEPARIN NA (PORCINE) 5,000 UNITS/ML 1ML VIAL SQ SCH ×2 (11:29→22:14)
[2017-09-07] MEDS ORDERED: POTASSIUM CHLORIDE TABS 20 MEQ TABLET.ER (FP) PO ONE (11:30)
[2017-09-07] MEDS: BUDESONIDE/FORMETEROL FUMARATE 160/4.5 mcg INHALER IH SCH ×2 (11:31→22:15)
[2017-09-07] MEDS: TIOTROPIUM BROMIDE 18 MCG/INH (DEVICE W/ 5 CAPSULES) IH SCH (11:31)
[2017-09-07 12:39] LABS: MAGNESIUM 1.8 mg/dL (1.8-2.4)
[2017-09-07] MEDS ORDERED: BISACODYL 10 MG SUPP.RECT RC ONE (12:47)
[2017-09-07] MEDS ORDERED: MAGNESIUM CITRATE 300 ML BOTTLE PO ONE (12:48)
--- NOTE | 2017-09-07 12:50 | PN ---
Progress Note (short form) - Note Progress Note: +BM yesterday Had an episode of vomiting afterwards Mild nausea Vital Signs Period Temp Pulse Resp BP Sys/Gates Pulse Ox Last 24 Hr 99.1 F-99.6 F 57-104 18-20 124-158/65-82 96 Abd soft, ND, wound c/d/i CBC, BMP 09/05/17 06:40 09/07/17 10:27 Replace potassium Ambulate Magnesium citrate Dulcolax suppository Problem List - Problems (1) Umbilical hernia Code(s): K42.9 - UMBILICAL HERNIA WITHOUT OBSTRUCTION OR GANGRENE Qualifiers: Obstruction and gangrene presence: without obstruction or gangrene Qualified Code(s): K42.9 - Umbilical hernia without obstruction or gangrene
--- NOTE | 2017-09-07 15:49 | PN ---
Progress Note, Physician History of Present Illness: Pt. alert, no chest pain, palpitations or dyspnea. Mild abdominal fullness. - Current Medication List Current Medications: Active Medications Albuterol Sulfate (Ventolin 0.083% Nebulizer Soln -) 1 amp NEB Q4HPO [facility] Last Admin: 09/07/17 09:00 Dose: 1 amp Amlodipine Besylate (Norvasc -) 5 mg PO DAILY [facility] Last Admin: 09/07/17 11:20 Dose: Not Given Aspirin (Ecotrin -) 81 mg PO DAILY [facility] Last Admin: 09/07/17 11:20 Dose: Not Given Budesonide/Formoterol Fumarate (Symbicort 160/4.5mcg -) 1 puff IH BID [facility] Last Admin: 09/07/17 11:31 Dose: 1 puff Clopidogrel Bisulfate (Plavix -) 75 mg PO DAILY [facility] Last Admin: 09/07/17 11:20 Dose: Not Given Ezetimibe (Zetia -) 10 mg PO DAILY [facility] Last Admin: 09/07/17 11:21 Dose: Not Given Finasteride (Proscar -) 5 mg PO DAILY [facility] Last Admin: 09/07/17 11:20 Dose: Not Given Gabapentin (Neurontin -) 600 mg PO DAILY [facility] Last Admin: 09/07/17 11:20 Dose: Not Given Gabapentin (Neurontin -) 800 mg PO HS [facility] Last Admin: 09/06/17 21:16 Dose: Not Given Heparin Sodium (Porcine) (Heparin -) 5,000 unit SQ BID [facility] Last Admin: 09/07/17 11:29 Dose: 5,000 unit Amino Acids (Clinimix -) 1,000 mls @ 84 mls/hr IV Q12H [facility] Last Admin: 09/07/17 08:06 Dose: Not Given Insulin Aspart (Novolog Vial Sliding Scale -) 1 vial SQ ACHS [facility] PRN Reason: Protocol Last Admin: 09/07/17 11:49 Dose: 10 units Insulin Detemir (Levemir Vial) 20 units SQ HS [facility] Last Admin: 09/06/17 21:16 Dose: Not Given Methylnaltrexone [place] (Relistor -) 8 mg SQ DAILY [facility] Last Admin: 09/07/17 11:28 Dose: 8 mg Metoclopramide HCl (Reglan Injection -) 10 mg IVPUSH Q6H-IV [facility] Last Admin: 09/07/17 14:18 Dose: 10 mg Montelukast Sodium (Singulair -) 10 mg PO HS [facility] Last Admin: 09/06/17 21:16 Dose: Not Given Morphine Sulfate (Morphine Injection -) 4 mg IVPUSH Q4H PRN PRN Reason: PAIN LEVEL 7 - 10 Last Admin: 09/07/17 14:41 Dose: 4 mg Ondansetron HCl (Zofran Injection) 4 mg IVPUSH Q6H PRN PRN Reason: NAUSEA AND/OR VOMITING Last Admin: 09/06/17 17:55 Dose: 4 mg Pancrelipase (Creon Dr 36,000 Units Capsule) 1 cap PO TIDCM [facility] Last Admin: 09/07/17 11:45 Dose: Not Given Pantoprazole Sodium (Protonix Iv) 40 mg IVPUSH DAILY [facility] Last Admin: 09/07/17 11:29 Dose: 40 mg Polyethylene Glycol (Miralax (For Daily Use) -) 17 gm PO BID [facility] Last Admin: 09/07/17 11:20 Dose: Not Given Ramipril (Altace -) 20 mg PO DAILY [facility] Last Admin: 09/07/17 11:19 Dose: Not Given Rosuvastatin Calcium (Crestor -) 10 mg PO [facility] Last Admin: 09/06/17 21:16 Dose: Not Given Tamsulosin HCl (Flomax -) 0.4 mg PO DAILY@0830 [facility] Last Admin: 09/07/17 08:06 Dose: Not Given Tiotropium [place] (Spiriva -) 1 puff IH DAILY [facility] Last Admin: 09/07/17 11:31 Dose: 1 puff - Objective Vital Signs: Vital Signs Temperature 99.1 F 09/07/17 14:23 Pulse Rate 103 H 09/07/17 14:23 Respiratory Rate 20 09/07/17 09:57 Blood Pressure 129/83 09/07/17 14:23 O2 Sat by Pulse Oximetry (%) 95 09/07/17 09:00 Constitutional: Yes: No Distress Eyes: No: Sclera Icterus HENT: Yes: Atraumatic, Normocephalic Neck: Yes: Trachea Midline (trach site clean and dry) Cardiovascular: Yes: Regular Rate and Rhythm. No: JVD Respiratory: Yes: CTA Bilaterally Gastrointestinal: Yes: Soft, Distention (mild distention and tenderness. No rebound), Tenderness Extremities: No: Calf Tenderness Edema: No Neurological: Yes: Alert, Oriented Labs: CBC, BMP 09/05/17 06:40 09/07/17 10:27 INR, PTT INR 1.22 (0.82-1.09) H 08/21/17 06:55 - ....Imaging X-ray: Image Reviewed (KUB: ileus? official reading pending) Problem List - Problems (1) Umbilical hernia Code(s): K42.9 - UMBILICAL HERNIA WITHOUT OBSTRUCTION OR GANGRENE Qualifiers: Obstruction and gangrene presence: without obstruction or gangrene Qualified Code(s): K42.9 - Umbilical hernia without obstruction or gangrene (2) COPD (chronic obstructive pulmonary disease) Code(s): J44.9 - CHRONIC OBSTRUCTIVE PULMONARY DISEASE, UNSPECIFIED (3) Coronary artery disease Code(s): I25.10 - ATHSCL HEART DISEASE OF [place] CORONARY ARTERY W/O ANG PCTRS (4) Diabetes mellitus Code(s): E11.9 - TYPE 2 DIABETES MELLITUS WITHOUT COMPLICATIONS Qualifiers: Diabetes mellitus type: type 2 Diabetes mellitus complication detail: with unspecified neuropathy (5) Pancreatitis Code(s): K85.9 - ACUTE PANCREATITIS, UNSPECIFIED * DO NOT USE * Qualifiers: Chronicity: acute Pancreatitis type: other (6) Sleep apnea Code(s): G47.30 - SLEEP APNEA, UNSPECIFIED (7) Tracheostomy in place Code(s): Z98.89 - OTHER SPECIFIED POSTPROCEDURAL STATES * DO NOT USE * Assessment/Plan Respiratory status is stable. Ileus post umbilical hernia repair. Hypokalemia. Suggest: continue current treatment per surgery Potassium replacement
[2017-09-07] MEDS: GABAPENTIN 400 MG CAPSULE (FP) PO SCH (22:15)
[2017-09-07] MEDS: ROSUVASTATIN CA 10 MG TABLET (FP) PO SCH (22:15)
[2017-09-07] MEDS: INSULIN DETEMIR 100 UNITS/ML MDV SQ SCH (22:15)
[2017-09-07] MEDS: MONTELUKAST NA 10 MG TABLET PO SCH (22:16)
[2017-09-08] MEDS: AMINO ACIDS 4.25%/D5W 1,000 ML IV SCH ×4 (02:12→21:57)
[2017-09-08] MEDS: METOCLOPRAMIDE HCL INJECTION 10 MG/2 ML VIAL IVPUSH SCH ×4 (02:12→21:57)
[2017-09-08] MEDS: MORPHINE SULFATE 10 MG/1 ML *VIAL IVPUSH PRN (02:18)
[2017-09-08] MEDS: INSULIN SLIDING SCALE (NOVOLOG) 1 VIAL SQ SCH ×4 (06:29→21:58)
[2017-09-08 07:08] LABS: ALBUMIN 2.6 g/dl (3.4-5.0); ANION GAP 8 (8-16); BLOOD UREA NITROGEN 25 mg/dL (7-18); CALCIUM 8.2 mg/dL (8.5-10.1); CHLORIDE 101 mmol/L (98-107); CO2 29 mmol/L (21-32); CREATININE 1.2 mg/dL (0.7-1.3); POTASSIUM 3.1 mmol/L (3.5-5.1); SGOT/AST 40 U/L (15-37); SGPT/ALT 84 U/L (12-78); SODIUM 138 mmol/L (136-145); TOT PROT 5.6 g/dl (6.4-8.2)
[2017-09-08 07:10] LABS: ALK PHOS 92 U/L (45-117)
[2017-09-08] MEDS: TAMSULOSIN HCL 0.4 MG CAP.ER.24H (FP) PO SCH (07:34)
[2017-09-08] MEDS: LIPASE/PROTEASE/AMYLASE 36,000 UNIT CAPSULE PO SCH ×3 (07:34→17:04)
[2017-09-08] MEDS: ALBUTEROL SO4 0.083% IH SOL 2.5 MG/3 ML VIAL.NEB. NEB SCH ×4 (07:40→21:40)
[2017-09-08 07:48] LABS: GLUCOSE,RANDOM 336 mg/dL (74-106)
[2017-09-08] MEDS ORDERED: PT OWN MED DRAWER 7, Y5N ONE ×2 (09:07→21:53)
[2017-09-08] MEDS: Methylnaltrexone Bromide 12 MG/0.6 ML KIT SQ SCH ×2 (09:17→12:02)
[2017-09-08] MEDS: PANTOPRAZOLE SODIUM 40 MG VIAL IVPUSH SCH (09:17)
[2017-09-08] MEDS: HEPARIN NA (PORCINE) 5,000 UNITS/ML 1ML VIAL SQ SCH ×2 (09:17→21:57)
[2017-09-08] MEDS: RAMIPRIL 5 MG CAPSULE (FP) PO SCH (09:48)
[2017-09-08] MEDS: ASPIRIN COATED 81 MG TABLET.EC PO SCH (09:48)
[2017-09-08] MEDS: amLODIPine BESYLATE 2.5 MG TABLET (FP) PO SCH (09:49)
[2017-09-08] MEDS: GABAPENTIN 300 MG CAPSULE (FP) PO SCH (09:49)
[2017-09-08] MEDS: CLOPIDOGREL BISULFATE 75 MG TABLET (FP) PO SCH (09:49)
[2017-09-08] MEDS: POLYETHYLENE GLYCOL 3350 119 GM BTL PO SCH ×2 (09:49→21:59)
[2017-09-08] MEDS: TIOTROPIUM BROMIDE 18 MCG/INH (DEVICE W/ 5 CAPSULES) IH SCH (09:50)
[2017-09-08] MEDS: FINASTERIDE 5 MG TABLET (FP) PO SCH (09:50)
[2017-09-08] MEDS: BUDESONIDE/FORMETEROL FUMARATE 160/4.5 mcg INHALER IH SCH ×2 (09:50→21:59)
[2017-09-08] MEDS: EZETIMIBE 10 MG TABLET (FP) PO SCH (09:51)
[2017-09-08] MEDS ORDERED: POTASSIUM CHLORIDE 20 MEQ PREMIX IVPB 100 ML IVPB SCH (10:00)
--- NOTE | 2017-09-08 10:08 | PN ---
Progress Note, Physician Chief Complaint: Pneumonia, Hematuria, Umbilical hernia History of Present Illness: doesn't feel well abdominal pain worsening Abdominal Xray yesterday showed worsening SBO with retained contrast spoke to GI surgery Vomiting 2 days ago BM yesterday and today - Current Medication List Current Medications: Active Medications Albuterol Sulfate (Ventolin 0.083% Nebulizer Soln -) 1 amp NEB RQID [facility] Last Admin: 09/08/17 07:40 Dose: 1 amp Amlodipine Besylate (Norvasc -) 5 mg PO DAILY [facility] Last Admin: 09/08/17 09:49 Dose: Not Given Aspirin (Ecotrin -) 81 mg PO DAILY [facility] Last Admin: 09/08/17 09:48 Dose: Not Given Budesonide/Formoterol Fumarate (Symbicort 160/4.5mcg -) 1 puff IH BID [facility] Last Admin: 09/08/17 09:50 Dose: 1 puff Clopidogrel Bisulfate (Plavix -) 75 mg PO DAILY [facility] Last Admin: 09/08/17 09:49 Dose: Not Given Ezetimibe (Zetia -) 10 mg PO DAILY [facility] Last Admin: 09/08/17 09:51 Dose: Not Given Finasteride (Proscar -) 5 mg PO DAILY [facility] Last Admin: 09/08/17 09:50 Dose: Not Given Gabapentin (Neurontin -) 600 mg PO DAILY [facility] Last Admin: 09/08/17 09:49 Dose: Not Given Gabapentin (Neurontin -) 800 mg PO HS [facility] Last Admin: 09/07/17 22:15 Dose: Not Given Heparin Sodium (Porcine) (Heparin -) 5,000 unit SQ BID [facility] Last Admin: 09/08/17 09:17 Dose: 5,000 unit Amino Acids (Clinimix -) 1,000 mls @ 84 mls/hr IV Q12H [facility] Last Admin: 09/08/17 09:25 Dose: Not Given Ibuprofen (Caldolor Injection -) 400 mg IVPB Q6H PRN PRN Reason: FEVER Insulin Aspart (Novolog Vial Sliding Scale -) 1 vial SQ ACHS [facility] PRN Reason: Protocol Last Admin: 09/08/17 06:29 Dose: 8 units Insulin Detemir (Levemir Vial) 24 units SQ HS [facility] Methylnaltrexone [place] (Relistor -) 12 mg SQ DAILY [facility] Metoclopramide HCl (Reglan Injection -) 10 mg IVPUSH Q6H-IV [facility] Last Admin: 09/08/17 09:17 Dose: 10 mg Montelukast Sodium (Singulair -) 10 mg PO [facility] Last Admin: 09/07/17 22:16 Dose: Not Given Ondansetron HCl (Zofran Injection) 4 mg IVPUSH Q6H PRN PRN Reason: NAUSEA AND/OR VOMITING Last Admin: 09/06/17 17:55 Dose: 4 mg Pancrelipase (Creon Dr 36,000 Units Capsule) 1 cap PO TIDCM [facility] Last Admin: 09/08/17 07:34 Dose: Not Given Pantoprazole Sodium (Protonix Iv) 40 mg IVPUSH DAILY [facility] Last Admin: 09/08/17 09:17 Dose: 40 mg Polyethylene Glycol (Miralax (For Daily Use) -) 17 gm PO BID [facility] Last Admin: 09/08/17 09:49 Dose: Not Given Potassium Chloride (Potassium Chloride 20 Meq Premix Ivpb -) 20 meq IVPB Q60M [facility] Stop: 09/08/17 12:01 Ramipril (Altace -) 20 mg PO DAILY [facility] Last Admin: 09/08/17 09:48 Dose: Not Given Rosuvastatin Calcium (Crestor -) 10 mg PO [facility] Last Admin: 09/07/17 22:15 Dose: Not Given Tamsulosin HCl (Flomax -) 0.4 mg PO DAILY@0830 [facility] Last Admin: 09/08/17 07:34 Dose: Not Given Tiotropium [place] (Spiriva -) 1 puff IH DAILY [facility] Last Admin: 09/08/17 09:50 Dose: 1 puff - Objective Vital Signs: Vital Signs Temperature 98.6 F 09/08/17 09:00 Pulse Rate 96 H 09/08/17 09:00 Respiratory Rate 20 09/08/17 09:00 Blood Pressure 158/88 09/08/17 09:00 O2 Sat by Pulse Oximetry (%) 95 09/07/17 20:41 Constitutional: Yes: Well Nourished, Calm, Mild Distress Cardiovascular: Yes: Regular Rate and Rhythm Respiratory: Yes: Regular Gastrointestinal: Yes: Abdomen, Obese, Distention Musculoskeletal: Yes: WNL Extremities: Yes: WNL Edema: No Peripheral Pulses WNL: Yes Neurological: Yes: Alert, Oriented Psychiatric: Yes: Alert, Oriented Labs: CBC, BMP 09/05/17 06:40 09/08/17 06:10 INR, PTT INR 1.22 (0.82-1.09) H 08/21/17 06:55 Problem List - Problems (1) Umbilical hernia Assessment/Plan: -seen by GI surgery -s/p hernia repair Code(s): K42.9 - UMBILICAL HERNIA WITHOUT OBSTRUCTION OR GANGRENE Qualifiers: Obstruction and gangrene presence: without obstruction or gangrene Qualified Code(s): K42.9 - Umbilical hernia without obstruction or gangrene (2) ASHD (arteriosclerotic heart disease) Assessment/Plan: -seen by Cardiology -Plavix Code(s): I25.10 - ATHSCL HEART DISEASE OF [place] CORONARY ARTERY W/O ANG PCTRS (3) SBO (small bowel obstruction) Assessment/Plan: -explained to the patient and his (over the phone) that it is important that we discontinue dilaudid and morphine which is likely making SBO worse -Re-insert NGT -repeat abdominal Xray to confirm insertion -CT abdomen with contrast in AM -Acetaminophen and Ibuprofen only for pain management Code(s): K56.609 - UNSP INTESTNL OBST, UNSP TO PARTIAL VERSUS COMPLETE OBST (4) Hypertension Assessment/Plan: Metoprolol 5 mg IVP if SBP >150 mm Hg Code(s): I10 - ESSENTIAL (PRIMARY) HYPERTENSION Qualifiers: Hypertension type: essential hypertension Qualified Code(s): I10 - Essential (primary) hypertension (5) Hypokalemia Assessment/Plan: -KCL 10 meq x 3 supplement -repeat labs in AM -Nacl with KCl 20 meq @ 75 cc/hr Code(s): E87.6 - HYPOKALEMIA (6) Diabetes mellitus, insulin dependent (IDDM), uncontrolled Assessment/Plan: -BGM -Clinimix -Increase levemir to 24 units HS Code(s): E10.65 - TYPE 1 DIABETES MELLITUS WITH HYPERGLYCEMIA Assessment/Plan see problem list spoke to and GI surgery about plan
[2017-09-08] MEDS ORDERED: INSULIN (NOVOLOG) ASPART 100 UNITS/ML 10ML VIAL ONE ×2 (11:48→16:40)
[2017-09-08] MEDS: POTASSIUM CHLORIDE 10 MEQ in SODIUM CHLORIDE 100 ML IVPB SCH ×6 (12:00→21:57)
[2017-09-08] MEDS: SODIUM CHLORIDE 0.9%/KCL 20 MEQ/1,000 ML INFUS.BAG IV SCH (12:03)
--- NOTE | 2017-09-08 15:44 | PROC ---
Procedure Note Procedure: Medical attending unable to insert NGT after multiple attempts. Surgery Team placed NGT into LEFT nare. During procedure, patient vomited feculent material ~ 1L Cannister 800mL Placed on intermittent low wall suction. Patient states he feels much better. Cont serial abd exams AXR in AM Surgery Team following
--- NOTE | 2017-09-08 16:27 | PN ---
Progress Note (short form) - Note Progress Note: AXR from yesterday showed dilated loops Had small BM but also with nausea NG tube replaced because of AXR findings Vital Signs Period Temp Pulse Resp BP Sys/Gates Pulse Ox Last 24 Hr 98.6 F-99.2 F 95-101 20-21 144-158/81-88 95-96 Abd soft, ND, wound c/d/i, no erythema CBC, BMP 09/05/17 06:40 09/08/17 06:10 Had lengthy conversation with patient and his at the bedside NG tube to continuous suction Will order CT A/P in am Gastrograffin via NG tube at 9am CT at 3pm to give enough time for contrast to pass Replace potassium Glycemic control Patient and understand and agree with the plan Problem List - Problems (1) Umbilical hernia Code(s): K42.9 - UMBILICAL HERNIA WITHOUT OBSTRUCTION OR GANGRENE Qualifiers: Obstruction and gangrene presence: without obstruction or gangrene Qualified Code(s): K42.9 - Umbilical hernia without obstruction or gangrene
[2017-09-08] MEDS: IBUPROFEN 800 MG/8 ML IJ IVPB PRN ×2 (16:42→23:21)
--- NOTE | 2017-09-08 17:16 | PN ---
Progress Note, Physician History of Present Illness: NGT reinserted due to recurrent ileus, remains NPO except for sips, passing small BM awaiting bowel recovery. - Current Medication List Current Medications: Active Medications Albuterol Sulfate (Ventolin 0.083% Nebulizer Soln -) 1 amp NEB RQID [facility] Last Admin: 09/08/17 15:22 Dose: Not Given Amlodipine Besylate (Norvasc -) 5 mg PO DAILY [facility] Last Admin: 09/08/17 09:49 Dose: Not Given Aspirin (Ecotrin -) 81 mg PO DAILY [facility] Last Admin: 09/08/17 09:48 Dose: Not Given Budesonide/Formoterol Fumarate (Symbicort 160/4.5mcg -) 1 puff IH BID [facility] Last Admin: 09/08/17 09:50 Dose: 1 puff Clopidogrel Bisulfate (Plavix -) 75 mg PO DAILY [facility] Last Admin: 09/08/17 09:49 Dose: Not Given Ezetimibe (Zetia -) 10 mg PO DAILY [facility] Last Admin: 09/08/17 09:51 Dose: Not Given Finasteride (Proscar -) 5 mg PO DAILY [facility] Last Admin: 09/08/17 09:50 Dose: Not Given Gabapentin (Neurontin -) 600 mg PO DAILY [facility] Last Admin: 09/08/17 09:49 Dose: Not Given Gabapentin (Neurontin -) 800 mg PO HS [facility] Last Admin: 09/07/17 22:15 Dose: Not Given Heparin Sodium (Porcine) (Heparin -) 5,000 unit SQ BID [facility] Last Admin: 09/08/17 09:17 Dose: 5,000 unit Amino Acids (Clinimix -) 1,000 mls @ 84 mls/hr IV Q12H [facility] Last Admin: 09/08/17 15:13 Dose: 84 mls/hr Potassium Chloride/Sodium Chloride (Ns+20 Meq Kcl -) 20 meq in 1,000 mls @ 75 mls/hr IV ASDIR [facility] Last Admin: 09/08/17 12:03 Dose: 75 mls/hr Ibuprofen (Caldolor Injection -) 400 mg IVPB Q6H PRN PRN Reason: FEVER Last Admin: 09/08/17 16:42 Dose: 400 mg Insulin Aspart (Novolog Vial Sliding Scale -) 1 vial SQ ACHS [facility] PRN Reason: Protocol Last Admin: 09/08/17 16:52 Dose: 8 units Insulin Detemir (Levemir Vial) 24 units SQ [facility] Methylnaltrexone [place] (Relistor -) 12 mg SQ DAILY [facility] Last Admin: 09/08/17 12:02 Dose: 12 mg Metoclopramide HCl (Reglan Injection -) 10 mg IVPUSH Q6H-IV [facility] Last Admin: 09/08/17 14:37 Dose: 10 mg Metoprolol Tartrate (Lopressor Injection -) 5 mg IVPUSH Q8H PRN PRN Reason: HYPERTENSION Montelukast Sodium (Singulair -) 10 mg PO [facility] Last Admin: 09/07/17 22:16 Dose: Not Given Ondansetron HCl (Zofran Injection) 4 mg IVPUSH Q6H PRN PRN Reason: NAUSEA AND/OR VOMITING Last Admin: 09/06/17 17:55 Dose: 4 mg Pancrelipase (Creon Dr 36,000 Units Capsule) 1 cap PO TIDCM [facility] Last Admin: 09/08/17 17:04 Dose: Not Given Pantoprazole Sodium (Protonix Iv) 40 mg IVPUSH DAILY [facility] Last Admin: 09/08/17 09:17 Dose: 40 mg Polyethylene Glycol (Miralax (For Daily Use) -) 17 gm PO BID [facility] Last Admin: 09/08/17 09:49 Dose: Not Given Ramipril (Altace -) 20 mg PO DAILY [facility] Last Admin: 09/08/17 09:48 Dose: Not Given Rosuvastatin Calcium (Crestor -) 10 mg PO [facility] Last Admin: 09/07/17 22:15 Dose: Not Given Tamsulosin HCl (Flomax -) 0.4 mg PO DAILY@0830 [facility] Last Admin: 09/08/17 07:34 Dose: Not Given Tiotropium [place] (Spiriva -) 1 puff IH DAILY [facility] Last Admin: 09/08/17 09:50 Dose: 1 puff - Objective Vital Signs: Vital Signs Temperature 98.6 F 09/08/17 10:00 Pulse Rate 96 H 09/08/17 10:00 Respiratory Rate 20 09/08/17 10:00 Blood Pressure 158/88 09/08/17 10:00 O2 Sat by Pulse Oximetry (%) 96 09/08/17 09:00 Constitutional: Yes: No Distress, Calm Neck: Yes: Supple Cardiovascular: Yes: Regular Rate and Rhythm Respiratory: Yes: Regular, Diminished Gastrointestinal: Yes: Distention, Hypoactive Bowel Sounds, Tenderness Edema: No Labs: CBC, BMP 09/05/17 06:40 09/08/17 06:10 INR, PTT INR 1.22 (0.82-1.09) H 08/21/17 06:55 - ....Imaging X-ray: Report Reviewed (Worsening SBO) Problem List - Problems (1) Chest pain Code(s): R07.9 - CHEST PAIN, UNSPECIFIED Qualifiers: Chest pain type: unspecified Qualified Code(s): R07.9 - Chest pain, unspecified (2) Chronic pancreatitis Code(s): K86.1 - OTHER CHRONIC PANCREATITIS Qualifiers: Pancreatitis type: unspecified pancreatitis type Qualified Code(s): K86.1 - Other chronic pancreatitis (3) Abdominal pain Code(s): R10.9 - UNSPECIFIED ABDOMINAL PAIN Qualifiers: Abdominal location: upper abdomen, unspecified Qualified Code(s): R10.10 - Upper abdominal pain, unspecified (4) Asthma Code(s): J45.909 - UNSPECIFIED ASTHMA, UNCOMPLICATED Qualifiers: Asthma severity: unspecified severity (5) COPD (chronic obstructive pulmonary disease) Code(s): J44.9 - CHRONIC OBSTRUCTIVE PULMONARY DISEASE, UNSPECIFIED (6) Chronic diastolic (congestive) heart failure Code(s): I50.32 - CHRONIC DIASTOLIC (CONGESTIVE) HEART FAILURE (7) Coronary artery disease Code(s): I25.10 - ATHSCL HEART DISEASE OF [place] CORONARY ARTERY W/O ANG PCTRS (8) Diabetes mellitus Code(s): E11.9 - TYPE 2 DIABETES MELLITUS WITHOUT COMPLICATIONS Qualifiers: Diabetes mellitus type: type 2 Diabetes mellitus complication detail: with unspecified neuropathy (9) Esophagitis determined by endoscopy Code(s): K20.9 - ESOPHAGITIS, UNSPECIFIED (10) Hyperlipidemia Code(s): E78.5 - HYPERLIPIDEMIA, UNSPECIFIED (11) Hypertension Code(s): I10 - ESSENTIAL (PRIMARY) HYPERTENSION Qualifiers: Hypertension type: essential hypertension Qualified Code(s): I10 - Essential (primary) hypertension (12) Hypertension associated with diabetes Code(s): E11.59 - TYPE 2 DIABETES MELLITUS WITH OTH CIRCULATORY COMPLICATIONS; I10 - ESSENTIAL (PRIMARY) HYPERTENSION (13) IPMN (intraductal papillary mucinous neoplasm) Code(s): D49.0 - NEOPLASM OF UNSPECIFIED BEHAVIOR OF DIGESTIVE SYSTEM (14) Myocardial infarct Code(s): I21.3 - ST ELEVATION (STEMI) MYOCARDIAL INFARCTION OF UNSP SITE (15) GRACIE (obstructive sleep apnea) Code(s): G47.33 - OBSTRUCTIVE SLEEP APNEA (ADULT) (PEDIATRIC) (16) Type 2 diabetes mellitus with diabetic neuropathy Code(s): E11.40 - TYPE 2 DIABETES MELLITUS WITH DIABETIC NEUROPATHY, UNSP (17) Renal calculus, left Code(s): N20.0 - CALCULUS OF KIDNEY (18) Umbilical hernia Code(s): K42.9 - UMBILICAL HERNIA WITHOUT OBSTRUCTION OR GANGRENE Qualifiers: Obstruction and gangrene presence: without obstruction or gangrene Qualified Code(s): K42.9 - Umbilical hernia without obstruction or gangrene (19) S/P lumbar spinal fusion Code(s): Z98.1 - ARTHRODESIS STATUS (20) Tracheostomy in place Code(s): Z98.89 - OTHER SPECIFIED POSTPROCEDURAL STATES * DO NOT USE * (21) H/O umbilical hernia repair Code(s): Z98.890 - OTHER SPECIFIED POSTPROCEDURAL STATES; Z87.19 - PERSONAL HISTORY OF OTHER DISEASES OF THE DIGESTIVE SYSTEM (22) SBO (small bowel obstruction) Code(s): K56.609 - UNSP INTESTNL OBST, UNSP TO PARTIAL VERSUS COMPLETE OBST Assessment/Plan 1. s/p umbilical hernia repair with post-op ileus/SBO - NGT decompression 2. Chronic pancreatitis and esophagitis 3. Chronic atypical chest pain 4. CAD s/p [place], post PCI (stents), angina pectoris 6. HTN/HCVD 5. Hyperlipidemia 6. Diastolic dysfunction and pulmonary HTN 7. OSAS 8. COPD/Asthma 9. Acute on CKD resolved, hypokalemia 10. Hematuria with left non-obstructive calculus PLAN: 1. Continue analgesics as needed, replete K 2. Bronchodilator, O2 as needed, DVT and GI prophylaxis 3. Continue IV Lopressor and off ASA 81 qd and Plavix 75 qd, Norvasc 5 qd, Zetia 10 qd, Altace 20 qd, and Crestor 10 qhs awaiting bowel function recovery 4. NGT decompression with f/u abd/pelvic CT with gastrograffin via NGT
[2017-09-08] MEDS ORDERED: ACETAMINOPHEN 1000 MG/100 ML VIAL (NON FORMULARY) IVPB PRN (21:28)
[2017-09-08] MEDS: INSULIN DETEMIR 100 UNITS/ML MDV SQ SCH (21:58)
[2017-09-08] MEDS: GABAPENTIN 400 MG CAPSULE (FP) PO SCH (22:06)
[2017-09-08] MEDS: ROSUVASTATIN CA 10 MG TABLET (FP) PO SCH (22:06)
[2017-09-08] MEDS: MONTELUKAST NA 10 MG TABLET PO SCH (22:06)
[2017-09-09] MEDS: METOCLOPRAMIDE HCL INJECTION 10 MG/2 ML VIAL IVPUSH SCH ×2 (02:14→10:52)
[2017-09-09] MEDS: SODIUM CHLORIDE 0.9%/KCL 20 MEQ/1,000 ML INFUS.BAG IV SCH ×2 (06:21→11:50)
[2017-09-09] MEDS: INSULIN SLIDING SCALE (NOVOLOG) 1 VIAL SQ SCH ×4 (06:22→22:29)
[2017-09-09] MEDS: IBUPROFEN 800 MG/8 ML IJ IVPB PRN ×2 (06:25→13:34)
[2017-09-09] MEDS: AMINO ACIDS 4.25%/D5W 1,000 ML IV SCH ×3 (06:25→21:19)
[2017-09-09 07:16] LABS: BASO % 0.5 % (0-2.0); EOS % 3.2 % (0-4.5); HEMATOCRIT 32.3 % (35.4-49); HEMOGLOBIN 10.8 GM/dL (11.7-16.9); LYMPH % 34.2 % (8-40); MCH 26.5 pg (25.7-33.7); MCHC 33.3 g/dl (32.0-35.9); MEAN CELL VOLUME 79.7 fl (80-96); MEAN PLT VOLUME 7.8 fl (7.5-11.1); NEUT % 52.1 % (42.8-82.8); PLATELET COUNT 268 K/MM3 (134-434); RBC 4.06 M/mm3 (4.00-5.60); RDW 14.8 % (11.9-15.9); WHITE BLOOD COUNT 9.6 K/mm3 (4.0-10.0)
[2017-09-09] MEDS: ALBUTEROL SO4 0.083% IH SOL 2.5 MG/3 ML VIAL.NEB. NEB SCH ×4 (07:30→20:20)
[2017-09-09 07:44] LABS: ALBUMIN 2.3 g/dl (3.4-5.0); ANION GAP 13 (8-16); BLOOD UREA NITROGEN 19 mg/dL (7-18); CALCIUM 8.1 mg/dL (8.5-10.1); CHLORIDE 104 mmol/L (98-107); CO2 22 mmol/L (21-32); POTASSIUM 3.1 mmol/L (3.5-5.1); SGPT/ALT 58 U/L (12-78); SODIUM 139 mmol/L (136-145)
[2017-09-09 07:49] LABS: ALK PHOS 86 U/L (45-117); BILIRUBIN,TOTAL 0.8 mg/dL (0.2-1.0); CREATININE 0.9 mg/dL (0.7-1.3); SGOT/AST 27 U/L (15-37); TOT PROT 5.3 g/dl (6.4-8.2)
[2017-09-09] MEDS: TAMSULOSIN HCL 0.4 MG CAP.ER.24H (FP) PO SCH (08:01)
[2017-09-09] MEDS: LIPASE/PROTEASE/AMYLASE 36,000 UNIT CAPSULE PO SCH ×3 (08:01→17:14)
[2017-09-09 08:32] LABS: GLUCOSE,RANDOM 315 mg/dL (74-106)
--- NOTE | 2017-09-09 09:13 | PN ---
Progress Note (short form) - Note Progress Note: d/w Dr. Silveira yesterday. Mr. Cohen's daughter reluctant to have him undergo procedures. Please recall as needed Problem List - Problems (1) Abdominal pain Code(s): R10.9 - UNSPECIFIED ABDOMINAL PAIN Qualifiers: Abdominal location: upper abdomen, unspecified Qualified Code(s): R10.10 - Upper abdominal pain, unspecified
--- NOTE | 2017-09-09 10:42 | PN ---
Progress Note, Physician Chief Complaint: Pneumonia, Hematuria, Umbilical hernia History of Present Illness: doesn't feel well NGT NPO IVF on Clinimix CT abd in the afternoon today hypokalemia - Current Medication List Current Medications: Active Medications Acetaminophen (Ofirmev Injection -) 1,000 mg IVPB Q6H PRN PRN Reason: PAIN Albuterol Sulfate (Ventolin 0.083% Nebulizer Soln -) 1 amp NEB RQID [facility] Last Admin: 09/09/17 07:30 Dose: 1 amp Amlodipine Besylate (Norvasc -) 5 mg PO DAILY [facility] Last Admin: 09/08/17 09:49 Dose: Not Given Aspirin (Ecotrin -) 81 mg PO DAILY [facility] Last Admin: 09/08/17 09:48 Dose: Not Given Budesonide/Formoterol Fumarate (Symbicort 160/4.5mcg -) 1 puff IH BID [facility] Last Admin: 09/08/17 21:59 Dose: 1 puff Clopidogrel Bisulfate (Plavix -) 75 mg PO DAILY [facility] Last Admin: 09/08/17 09:49 Dose: Not Given Ezetimibe (Zetia -) 10 mg PO DAILY [facility] Last Admin: 09/08/17 09:51 Dose: Not Given Finasteride (Proscar -) 5 mg PO DAILY [facility] Last Admin: 09/08/17 09:50 Dose: Not Given Gabapentin (Neurontin -) 600 mg PO DAILY [facility] Last Admin: 09/08/17 09:49 Dose: Not Given Gabapentin (Neurontin -) 800 mg PO HS [facility] Last Admin: 09/08/17 22:06 Dose: Not Given Heparin Sodium (Porcine) (Heparin -) 5,000 unit SQ BID [facility] Last Admin: 09/08/17 21:57 Dose: 5,000 unit Amino Acids (Clinimix -) 1,000 mls @ 84 mls/hr IV Q12H [facility] Last Admin: 09/09/17 06:25 Dose: 84 mls/hr Potassium Chloride/Sodium Chloride (Ns+20 Meq Kcl -) 20 meq in 1,000 mls @ 75 mls/hr IV ASDIR [facility] Last Admin: 09/09/17 06:21 Dose: 75 mls/hr Ibuprofen (Caldolor Injection -) 400 mg IVPB Q6H PRN PRN Reason: FEVER Last Admin: 09/09/17 06:25 Dose: 400 mg Insulin Aspart (Novolog Vial Sliding Scale -) 1 vial SQ [facility] PRN Reason: Protocol Last Admin: 09/09/17 06:22 Dose: 6 units Insulin Detemir (Levemir Vial) 24 units SQ [facility] Last Admin: 09/08/17 21:58 Dose: 24 units Methylnaltrexone [place] (Relistor -) 12 mg SQ DAILY [facility] Last Admin: 09/08/17 12:02 Dose: 12 mg Metoclopramide HCl (Reglan Injection -) 10 mg IVPUSH Q6H-IV [facility] Last Admin: 09/09/17 02:14 Dose: 10 mg Metoprolol Tartrate (Lopressor Injection -) 5 mg IVPUSH Q8H PRN PRN Reason: HYPERTENSION Montelukast Sodium (Singulair -) 10 mg PO [facility] Last Admin: 09/08/17 22:06 Dose: Not Given Ondansetron HCl (Zofran Injection) 4 mg IVPUSH Q6H PRN PRN Reason: NAUSEA AND/OR VOMITING Last Admin: 09/06/17 17:55 Dose: 4 mg Pancrelipase (Creon Dr 36,000 Units Capsule) 1 cap PO TIDCM [facility] Last Admin: 09/09/17 08:01 Dose: Not Given Pantoprazole Sodium (Protonix Iv) 40 mg IVPUSH DAILY [facility] Last Admin: 09/08/17 09:17 Dose: 40 mg Polyethylene Glycol (Miralax (For Daily Use) -) 17 gm PO BID [facility] Last Admin: 09/08/17 21:59 Dose: Not Given Ramipril (Altace -) 20 mg PO DAILY [facility] Last Admin: 09/08/17 09:48 Dose: Not Given Rosuvastatin Calcium (Crestor -) 10 mg PO [facility] Last Admin: 09/08/17 22:06 Dose: Not Given Tamsulosin HCl (Flomax -) 0.4 mg PO DAILY@0830 [facility] Last Admin: 09/09/17 08:01 Dose: Not Given Tiotropium [place] (Spiriva -) 1 puff IH DAILY [facility] Last Admin: 09/08/17 09:50 Dose: 1 puff - Objective Vital Signs: Vital Signs Temperature 98.2 F 09/09/17 09:00 Pulse Rate 81 09/09/17 09:00 Respiratory Rate 20 09/09/17 09:00 Blood Pressure 174/92 09/09/17 09:00 O2 Sat by Pulse Oximetry (%) 96 09/08/17 22:00 Constitutional: Yes: Well Nourished, No Distress, Calm Cardiovascular: Yes: Regular Rate and Rhythm Respiratory: Yes: Regular Gastrointestinal: Yes: Soft, Hypoactive Bowel Sounds Musculoskeletal: Yes: WNL Extremities: Yes: WNL Edema: No Neurological: Yes: Alert, Oriented Psychiatric: Yes: Alert, Oriented Labs: CBC, BMP 09/09/17 06:30 09/09/17 06:30 INR, PTT INR 1.22 (0.82-1.09) H 08/21/17 06:55 Problem List - Problems (1) Umbilical hernia Assessment/Plan: -seen by GI surgery -s/p hernia repair repeat Ct abdomen pending Code(s): K42.9 - UMBILICAL HERNIA WITHOUT OBSTRUCTION OR GANGRENE Qualifiers: Obstruction and gangrene presence: without obstruction or gangrene Qualified Code(s): K42.9 - Umbilical hernia without obstruction or gangrene (2) ASHD (arteriosclerotic heart disease) Assessment/Plan: -seen by Cardiology -Plavix Code(s): I25.10 - ATHSCL HEART DISEASE OF [place] CORONARY ARTERY W/O ANG PCTRS (3) SBO (small bowel obstruction) Assessment/Plan: -NGT -CT abdomen with contrast in afternoon -Acetaminophen and Ibuprofen only for pain management Code(s): K56.609 - UNSP INTESTNL OBST, UNSP TO PARTIAL VERSUS COMPLETE OBST (4) Hypertension Assessment/Plan: Metoprolol 5 mg IVP if SBP >150 mm Hg Code(s): I10 - ESSENTIAL (PRIMARY) HYPERTENSION Qualifiers: Hypertension type: essential hypertension Qualified Code(s): I10 - Essential (primary) hypertension (5) Hypokalemia Assessment/Plan: -KCL 10 meq x 6 supplement -repeat labs in AM -Nacl with KCl 20 meq @ 75 cc/hr -renal consult Code(s): E87.6 - HYPOKALEMIA (6) Diabetes mellitus, insulin dependent (IDDM), uncontrolled Assessment/Plan: -BGM -Clinimix -Increase levemir to 24 units HS Code(s): E10.65 - TYPE 1 DIABETES MELLITUS WITH HYPERGLYCEMIA Assessment/Plan see problem list Consult for PICC line insertion after CT abd for possible TPN initiation
[2017-09-09] MEDS: HEPARIN NA (PORCINE) 5,000 UNITS/ML 1ML VIAL SQ SCH ×2 (10:52→22:25)
[2017-09-09] MEDS: METOPROLOL TARTRATE 5 MG/5 ML VIAL IVPUSH PRN (10:52)
[2017-09-09] MEDS: PANTOPRAZOLE SODIUM 40 MG VIAL IVPUSH SCH (10:52)
[2017-09-09] MEDS: RAMIPRIL 5 MG CAPSULE (FP) PO SCH (10:58)
[2017-09-09] MEDS: ASPIRIN COATED 81 MG TABLET.EC PO SCH (10:58)
[2017-09-09] MEDS: POLYETHYLENE GLYCOL 3350 119 GM BTL PO SCH (10:59)
[2017-09-09] MEDS: Methylnaltrexone Bromide 12 MG/0.6 ML KIT SQ SCH (10:59)
[2017-09-09] MEDS: CLOPIDOGREL BISULFATE 75 MG TABLET (FP) PO SCH (10:59)
[2017-09-09] MEDS: EZETIMIBE 10 MG TABLET (FP) PO SCH (10:59)
[2017-09-09] MEDS: amLODIPine BESYLATE 2.5 MG TABLET (FP) PO SCH (10:59)
[2017-09-09] MEDS: FINASTERIDE 5 MG TABLET (FP) PO SCH (10:59)
[2017-09-09] MEDS: GABAPENTIN 300 MG CAPSULE (FP) PO SCH (10:59)
--- NOTE | 2017-09-09 11:09 | PN ---
GI Progress Note Subjective: Vomiting again w/ NGT replaced with high output again Intermittent mid abdominl pain Son present at bedside - Objective Vital Signs: Vital Signs Temperature 98.2 F 09/09/17 09:00 Pulse Rate 81 09/09/17 10:52 Respiratory Rate 20 09/09/17 09:00 Blood Pressure 174/92 09/09/17 10:52 O2 Sat by Pulse Oximetry (%) 96 09/08/17 22:00 Constitutional: Calm Eyes: No: Sclera Icterus Cardiovascular: Yes: Regular Rate and Rhythm Respiratory: Yes: CTA Bilaterally Gastrointestinal Inspection: Yes: Scars (periumbilical with induration around umbilical site) ...Auscultate: Yes: Normoactive Bowel Sounds ...Palpate: Yes: Tenderness (TTP at periumbilical site. Patient states feeling nausesou upon palpation there). No: Guarding ...Percussion: Yes: Tympanitic (Mild tympany id abdomen) Edema: No (No LE edema) Neurological: Yes: Alert, Oriented Labs: CBC, BMP 09/09/17 06:30 09/09/17 06:30 INR, PTT INR 1.22 (0.82-1.09) H 08/21/17 06:55 Hepatic Panel Total Bilirubin 0.8 mg/dL (0.2-1.0) 09/09/17 06:30 AST 27 U/L (15-37) D 09/09/17 06:30 ALT 58 U/L (12-78) D 09/09/17 06:30 Alkaline Phosphatase 86 U/L (45-117) 09/09/17 06:30 Albumin 2.3 g/dl (3.4-5.0) L 09/09/17 06:30 Problem List - Problems (1) Abdominal pain Assessment/Plan: ? prolonged ileus vs. mechanical obstruction: Being evaluated by surgery. For repeat CT scan today Would hold off on restarting relistor, Miralax or reglan until mechanical obstruction excluded If going to be prolonged NPO at this point, patient may need TPN / Renal eval for TPN Needs glycemic control and correction of lytes. Hyperglycemia and electrolyte abnormalities can contribute to altered gut motility Weaning of opiate analgesia Code(s): R10.9 - UNSPECIFIED ABDOMINAL PAIN Qualifiers: Abdominal location: upper abdomen, unspecified Qualified Code(s): R10.10 - Upper abdominal pain, unspecified
[2017-09-09] MEDS: BUDESONIDE/FORMETEROL FUMARATE 160/4.5 mcg INHALER IH SCH ×2 (11:50→21:19)
[2017-09-09] MEDS: TIOTROPIUM BROMIDE 18 MCG/INH (DEVICE W/ 5 CAPSULES) IH SCH (11:50)
[2017-09-09] MEDS ORDERED: PICC LINE 8 ML FLUSH PROTOCOL IVPUSH PRN (11:53)
[2017-09-09] MEDS ORDERED: KCL 10 MEQ IVPB 10 MEQ/100 ML INFUS.BAG IVPB SCH (12:00)
--- NOTE | 2017-09-09 12:01 | PN ---
Progress Note, Physician History of Present Illness: NGT reinserted due to recurrent ileus, remains NPO except for sips, passing flatus awaiting bowel recovery. - Current Medication List Current Medications: Active Medications Acetaminophen (Ofirmev Injection -) 1,000 mg IVPB Q6H PRN PRN Reason: PAIN Albuterol Sulfate (Ventolin 0.083% Nebulizer Soln -) 1 amp NEB RQID [facility] Last Admin: 09/09/17 11:01 Dose: Not Given Amlodipine Besylate (Norvasc -) 5 mg PO DAILY [facility] Last Admin: 09/09/17 10:59 Dose: Not Given Aspirin (Ecotrin -) 81 mg PO DAILY [facility] Last Admin: 09/09/17 10:58 Dose: Not Given Budesonide/Formoterol Fumarate (Symbicort 160/4.5mcg -) 1 puff IH BID [facility] Last Admin: 09/09/17 11:50 Dose: 1 puff Clopidogrel Bisulfate (Plavix -) 75 mg PO DAILY [facility] Last Admin: 09/09/17 10:59 Dose: Not Given Ezetimibe (Zetia -) 10 mg PO DAILY [facility] Last Admin: 09/09/17 10:59 Dose: Not Given Finasteride (Proscar -) 5 mg PO DAILY [facility] Last Admin: 09/09/17 10:59 Dose: Not Given Gabapentin (Neurontin -) 600 mg PO DAILY [facility] Last Admin: 09/09/17 10:59 Dose: Not Given Gabapentin (Neurontin -) 800 mg PO HS [facility] Last Admin: 09/08/17 22:06 Dose: Not Given Heparin Sodium (Porcine) (Heparin -) 5,000 unit SQ BID [facility] Last Admin: 09/09/17 10:52 Dose: 5,000 unit IV Flush (Picc Line Flush) 8 ml IVPUSH PRN PRN PRN Reason: Protocol Amino Acids (Clinimix -) 1,000 mls @ 84 mls/hr IV Q12H [facility] Last Admin: 09/09/17 10:58 Dose: Not Given Potassium Chloride/Sodium Chloride (Ns+20 Meq Kcl -) 20 meq in 1,000 mls @ 75 mls/hr IV ASDIR [facility] Last Admin: 09/09/17 11:50 Dose: Not Given Potassium Chloride (Potassium Chloride 10 Meq Premix Ivpb -) 10 meq in 100 mls @ 100 mls/hr IVPB Q60M [facility] Stop: 09/09/17 17:59 Ibuprofen (Caldolor Injection -) 400 mg IVPB Q6H PRN PRN Reason: FEVER Last Admin: 09/09/17 06:25 Dose: 400 mg Insulin Aspart (Novolog Vial Sliding Scale -) 1 vial SQ [facility] PRN Reason: Protocol Last Admin: 09/09/17 11:50 Dose: 6 units Insulin Detemir (Levemir Vial) 24 units SQ [facility] Last Admin: 09/08/17 21:58 Dose: 24 units Methylnaltrexone [place] (Relistor -) 12 mg SQ DAILY [facility] Last Admin: 09/09/17 10:59 Dose: Not Given Metoprolol Tartrate (Lopressor Injection -) 5 mg IVPUSH Q8H PRN PRN Reason: HYPERTENSION Last Admin: 09/09/17 10:52 Dose: 5 mg Montelukast Sodium (Singulair -) 10 mg PO [facility] Last Admin: 09/08/17 22:06 Dose: Not Given Ondansetron HCl (Zofran Injection) 4 mg IVPUSH Q6H PRN PRN Reason: NAUSEA AND/OR VOMITING Last Admin: 09/06/17 17:55 Dose: 4 mg Pancrelipase (Creon Dr 36,000 Units Capsule) 1 cap PO TIDCM [facility] Last Admin: 09/09/17 08:01 Dose: Not Given Pantoprazole Sodium (Protonix Iv) 40 mg IVPUSH DAILY [facility] Last Admin: 09/09/17 10:52 Dose: 40 mg Ramipril (Altace -) 20 mg PO DAILY [facility] Last Admin: 09/09/17 10:58 Dose: Not Given Rosuvastatin [place] (Crestor -) 10 mg PO [facility] Last Admin: 09/08/17 22:06 Dose: Not Given Tamsulosin HCl (Flomax -) 0.4 mg PO DAILY@0830 [facility] Last Admin: 09/09/17 08:01 Dose: Not Given Tiotropium [place] (Spiriva -) 1 puff IH DAILY [facility] Last Admin: 09/09/17 11:50 Dose: 1 puff - Objective Vital Signs: Vital Signs Temperature 98.2 F 09/09/17 09:00 Pulse Rate 81 09/09/17 10:52 Respiratory Rate 20 09/09/17 09:00 Blood Pressure 174/92 09/09/17 10:52 O2 Sat by Pulse Oximetry (%) 96 09/08/17 22:00 Constitutional: Yes: No Distress, Calm Neck: Yes: Supple Cardiovascular: Yes: Regular Rate and Rhythm Respiratory: Yes: Regular, Diminished Gastrointestinal: Yes: Distention, Hyperactive Bowel Sounds Edema: No Labs: CBC, BMP 09/09/17 06:30 09/09/17 06:30 INR, PTT INR 1.22 (0.82-1.09) H 08/21/17 06:55 Problem List - Problems (1) Chest pain Code(s): R07.9 - CHEST PAIN, UNSPECIFIED Qualifiers: Chest pain type: unspecified Qualified Code(s): R07.9 - Chest pain, unspecified (2) Chronic pancreatitis Code(s): K86.1 - OTHER CHRONIC PANCREATITIS Qualifiers: Pancreatitis type: unspecified pancreatitis type Qualified Code(s): K86.1 - Other chronic pancreatitis (3) Abdominal pain Code(s): R10.9 - UNSPECIFIED ABDOMINAL PAIN Qualifiers: Abdominal location: upper abdomen, unspecified Qualified Code(s): R10.10 - Upper abdominal pain, unspecified (4) Asthma Code(s): J45.909 - UNSPECIFIED ASTHMA, UNCOMPLICATED Qualifiers: Asthma severity: unspecified severity (5) COPD (chronic obstructive pulmonary disease) Code(s): J44.9 - CHRONIC OBSTRUCTIVE PULMONARY DISEASE, UNSPECIFIED (6) Chronic diastolic (congestive) heart failure Code(s): I50.32 - CHRONIC DIASTOLIC (CONGESTIVE) HEART FAILURE (7) Coronary artery disease Code(s): I25.10 - ATHSCL HEART DISEASE OF [place] CORONARY ARTERY W/O ANG PCTRS (8) Diabetes mellitus Code(s): E11.9 - TYPE 2 DIABETES MELLITUS WITHOUT COMPLICATIONS Qualifiers: Diabetes mellitus type: type 2 Diabetes mellitus complication detail: with unspecified neuropathy (9) Esophagitis determined by endoscopy Code(s): K20.9 - ESOPHAGITIS, UNSPECIFIED (10) Hyperlipidemia Code(s): E78.5 - HYPERLIPIDEMIA, UNSPECIFIED (11) Hypertension Code(s): I10 - ESSENTIAL (PRIMARY) HYPERTENSION Qualifiers: Hypertension type: essential hypertension Qualified Code(s): I10 - Essential (primary) hypertension (12) Hypertension associated with diabetes Code(s): E11.59 - TYPE 2 DIABETES MELLITUS WITH OTH CIRCULATORY COMPLICATIONS; I10 - ESSENTIAL (PRIMARY) HYPERTENSION (13) IPMN (intraductal papillary mucinous neoplasm) Code(s): D49.0 - NEOPLASM OF UNSPECIFIED BEHAVIOR OF DIGESTIVE SYSTEM (14) Myocardial infarct Code(s): I21.3 - ST ELEVATION (STEMI) MYOCARDIAL INFARCTION OF UNSP SITE (15) GRACIE (obstructive sleep apnea) Code(s): G47.33 - OBSTRUCTIVE SLEEP APNEA (ADULT) (PEDIATRIC) (16) Type 2 diabetes mellitus with diabetic neuropathy Code(s): E11.40 - TYPE 2 DIABETES MELLITUS WITH DIABETIC NEUROPATHY, UNSP (17) Renal calculus, left Code(s): N20.0 - CALCULUS OF KIDNEY (18) Umbilical hernia Code(s): K42.9 - UMBILICAL HERNIA WITHOUT OBSTRUCTION OR GANGRENE Qualifiers: Obstruction and gangrene presence: without obstruction or gangrene Qualified Code(s): K42.9 - Umbilical hernia without obstruction or gangrene (19) S/P lumbar spinal fusion Code(s): Z98.1 - ARTHRODESIS STATUS (20) Tracheostomy in place Code(s): Z98.89 - OTHER SPECIFIED POSTPROCEDURAL STATES * DO NOT USE * (21) H/O umbilical hernia repair Code(s): Z98.890 - OTHER SPECIFIED POSTPROCEDURAL STATES; Z87.19 - PERSONAL HISTORY OF OTHER DISEASES OF THE DIGESTIVE SYSTEM (22) SBO (small bowel obstruction) Code(s): K56.609 - UNSP INTESTNL OBST, UNSP TO PARTIAL VERSUS COMPLETE OBST Assessment/Plan 1. s/p umbilical hernia repair with post-op ileus/SBO - NGT decompression 2. Chronic pancreatitis and esophagitis 3. Chronic atypical chest pain 4. CAD s/p [place], post PCI (stents), angina pectoris 6. HTN/HCVD 5. Hyperlipidemia 6. Diastolic dysfunction and pulmonary HTN 7. OSAS 8. COPD/Asthma 9. Acute on CKD resolved, hypokalemia 10. Hematuria with left non-obstructive calculus PLAN: 1. Continue analgesics as needed, replete K 2. Bronchodilator, O2 as needed, DVT and GI prophylaxis 3. Continue IV Lopressor and off ASA 81 qd and Plavix 75 qd, Norvasc 5 qd, Zetia 10 qd, Altace 20 qd, and Crestor 10 qhs awaiting bowel function recovery 4. NGT decompression with f/u abd/pelvic CT with gastrograffin via NGT
--- NOTE | 2017-09-09 12:24 | PN ---
Progress Note (short form) - Note Progress Note: No new events NG tube in place Awaiting CT Vital Signs Period Temp Pulse Resp BP Sys/Gates Pulse Ox Last 24 Hr 97.8 F-98.6 F 77-85 18-20 148-174/76-92 96 Abd soft, ND CBC, BMP 09/09/17 06:30 09/09/17 06:30 F/U CT A/P NG tube Ambulate Problem List - Problems (1) Umbilical hernia Code(s): K42.9 - UMBILICAL HERNIA WITHOUT OBSTRUCTION OR GANGRENE Qualifiers: Obstruction and gangrene presence: without obstruction or gangrene Qualified Code(s): K42.9 - Umbilical hernia without obstruction or gangrene
[2017-09-09] MEDS: POTASSIUM CHLORIDE 10 MEQ in SODIUM CHLORIDE 100 ML IVPB SCH ×6 (13:34→22:21)
[2017-09-09] MEDS: ONDANSETRON 4 MG/2 ML VIAL IVPUSH PRN ×2 (13:40→20:29)
--- NOTE | 2017-09-09 17:56 | CONSULT ---
Consult - text type - Consultation Consultation Note: Renal Consult for TPN/Electrolyte Abnormalities This is a 61 year old gentleman with PMhx of CAD s/p stents and CABG, Chronic Pancreatitis, Hypertension, HLD who presented with abd pain and now s/p open resection of incarcerated umbilical hernia with ileus and prolonged NPO status. Pt is currently on Clinmix. Pt also noted to have persistently low potassium levels. PMhx: as above Allergies: Tetracyclines Family Hx: NC social Hx: No T/A/D ROS: + Abd pain, + Nausea, no fever, chills. No SOB, CP, diarrhea Home Medications Medication Instructions Recorded Albuterol 0.083% Nebulizer Elena 1 neb NEB Q4H 08/18/17 [Ventolin 0.083%] Albuterol Sulfate Inhaler - 1 - 2 inh PO Q4H PRN 08/18/17 [Ventolin Hfa Inhaler -] Amlodipine Besylate [Norvasc -] 0 mg PO DAILY 08/18/17 Arformoterol Tartrate [Brovana] 15 mcg IH ASDIR 08/18/17 Aspirin [Aspirin EC] 81 mg PO DAILY 08/18/17 Budesonide/Formeterol Fumarate 1 inh PO DAILY 08/18/17 [SYMBICORT 160/4.5mcg -] Clopidogrel Bisulfate [Plavix] 75 mg PO DAILY 08/18/17 Dexlansoprazole [Dexilant] 30 mg PO DAILY 08/18/17 Diazepam [Valium] 5 mg PO PRN PRN 08/18/17 Ezetimibe [Zetia -] 10 mg PO DAILY 08/18/17 Furosemide [Lasix] 40 mg PO DAILY 08/18/17 Insulin Lispro [Humalog] 0 unit SQ PRN PRN 08/18/17 Insulin Pump Controller [Snap 1 each ASDIR 08/18/17 Insulin Pump Controller] Montelukast Sodium [Singulair] 10 mg PO DAILY 08/18/17 Ramipril [Altace] 10 mg PO DAILY 08/18/17 Ranitidine HCl 150 mg PO PRN PRN 08/18/17 Rosuvastatin Calcium [Crestor] 10 mg PO DAILY 08/18/17 Tiotropium [place] [Spiriva -] 1 puff IH DAILY 08/18/17 Vital Signs Temperature 98.2 F 09/09/17 09:00 Pulse Rate 81 09/09/17 10:52 Respiratory Rate 20 09/09/17 09:00 Blood Pressure 174/92 09/09/17 10:52 O2 Sat by Pulse Oximetry (%) 96 09/08/17 22:00 Intake & Output 09/06/17 09/07/17 09/08/17 09/09/17 23:59 23:59 23:59 23:59 Intake Total 375 2342 2208 2208 Output Total 4000 1030 2600 800 Balance -3625 1312 -392 1408 Weight 120.23 kg 118.189 kg 118.841 kg 112.037 kg NAD, awake and alert NGT in place MMM Neck supple RRR Dec Bs at lung bases + abd distension No LE edema CBC, BMP 09/09/17 06:30 09/09/17 06:30 Current Medications Acetaminophen (Ofirmev Injection -) 1,000 mg IVPB Q6H PRN PRN Reason: PAIN Albuterol Sulfate (Ventolin 0.083% Nebulizer Soln -) 1 amp NEB RQID [facility] Last Admin: 09/09/17 15:22 Dose: Not Given Amlodipine Besylate (Norvasc -) 5 mg PO DAILY [facility] Last Admin: 09/09/17 10:59 Dose: Not Given Aspirin (Ecotrin -) 81 mg PO DAILY [facility] Last Admin: 09/09/17 10:58 Dose: Not Given Budesonide/Formoterol Fumarate (Symbicort 160/4.5mcg -) 1 puff IH BID [facility] Last Admin: 09/09/17 11:50 Dose: 1 puff Clopidogrel Bisulfate (Plavix -) 75 mg PO DAILY [facility] Last Admin: 09/09/17 10:59 Dose: Not Given Ezetimibe (Zetia -) 10 mg PO DAILY [facility] Last Admin: 09/09/17 10:59 Dose: Not Given Finasteride (Proscar -) 5 mg PO DAILY [facility] Last Admin: 09/09/17 10:59 Dose: Not Given Gabapentin (Neurontin -) 600 mg PO DAILY [facility] Last Admin: 09/09/17 10:59 Dose: Not Given Gabapentin (Neurontin -) 800 mg PO HS [facility] Last Admin: 09/08/17 22:06 Dose: Not Given Heparin Sodium (Porcine) (Heparin -) 5,000 unit SQ BID [facility] Last Admin: 09/09/17 10:52 Dose: 5,000 unit IV Flush (Picc Line Flush) 8 ml IVPUSH PRN PRN PRN Reason: Protocol Amino Acids (Clinimix -) 1,000 mls @ 84 mls/hr IV Q12H [facility] Last Admin: 09/09/17 10:58 Dose: Not Given Potassium Chloride/Sodium Chloride (Ns+20 Meq Kcl -) 20 meq in 1,000 mls @ 75 mls/hr IV ASDIR [facility] Last Admin: 09/09/17 11:50 Dose: Not Given Potassium Chloride 10 meq/ (Sodium Chloride) 105 mls @ 105 mls/hr IVPB Q1H MARK Stop: 09/09/17 18:59 Last Admin: 09/09/17 17:24 Dose: 105 mls/hr Ibuprofen (Caldolor Injection -) 400 mg IVPB Q6H PRN PRN Reason: FEVER Last Admin: 09/09/17 13:34 Dose: 400 mg Insulin Aspart (Novolog Vial Sliding Scale -) 1 vial SQ ACHS [facility] PRN Reason: Protocol Last Admin: 09/09/17 17:14 Dose: 2 units Insulin Detemir (Levemir Vial) 24 units SQ HS [facility] Last Admin: 09/08/17 21:58 Dose: 24 units Methylnaltrexone [place] (Relistor -) 12 mg SQ DAILY [facility] Last Admin: 09/09/17 10:59 Dose: Not Given Metoprolol Tartrate (Lopressor Injection -) 5 mg IVPUSH Q8H PRN PRN Reason: HYPERTENSION Last Admin: 09/09/17 10:52 Dose: 5 mg Montelukast Sodium (Singulair -) 10 mg PO HS [facility] Last Admin: 09/08/17 22:06 Dose: Not Given Ondansetron HCl (Zofran Injection) 4 mg IVPUSH Q6H PRN PRN Reason: NAUSEA AND/OR VOMITING Last Admin: 09/09/17 13:40 Dose: 4 mg Pancrelipase (Creon Dr 36,000 Units Capsule) 1 cap PO TIDCM [facility] Last Admin: 09/09/17 17:14 Dose: Not Given Pantoprazole Sodium (Protonix Iv) 40 mg IVPUSH DAILY [facility] Last Admin: 09/09/17 10:52 Dose: 40 mg Ramipril (Altace -) 20 mg PO DAILY [facility] Last Admin: 09/09/17 10:58 Dose: Not Given Rosuvastatin Calcium (Crestor -) 10 mg PO HS [facility] Last Admin: 09/08/17 22:06 Dose: Not Given Tamsulosin HCl (Flomax -) 0.4 mg PO DAILY@0830 [facility] Last Admin: 09/09/17 08:01 Dose: Not Given Tiotropium [place] (Spiriva -) 1 puff IH DAILY [facility] Last Admin: 09/09/17 11:50 Dose: 1 puff 61 year old gentleman with PMhx of CAD s/p stents and CABG, Chronic Pancreatitis , Hypertension, HLD who presented with abd pain and now s/p open resection of incarcerated umbilical hernia with ileus and prolonged NPO status. #s/p open resection of incarcerated hernia with prolonged NPO status Pt will require TPN will order starting tomorrow (needed to be ordered before 1pm) yocasta continue D51/2 NS with 40 Kcl until TPN is started continue to trend electrolytes daily further management as per surgery #Hypokalemia getting IV supplamentation keep Mag > 2 will continue KCL with IVF #Hypertension start enalapril IV Q6h goal BP < 140/90 Thank you Az Nelson DO
[2017-09-09] MEDS ORDERED: D5-1/2NS+40 MEQ KCL - 40 MEQ/1,000 ML INFUS.BAG IV SCH (18:00)
[2017-09-09] MEDS: morphine SULFATE 4 MG/ML VIAL IVPUSH PRN (21:17)
[2017-09-09] MEDS: MONTELUKAST NA 10 MG TABLET PO SCH (21:18)
[2017-09-09] MEDS: ROSUVASTATIN CA 10 MG TABLET (FP) PO SCH (21:18)
[2017-09-09] MEDS: GABAPENTIN 400 MG CAPSULE (FP) PO SCH (21:18)
--- NOTE | 2017-09-09 22:24 | PN ---
Progress Note, Physician History of Present Illness: Pt. alert, no chest pain, palpitations or dyspnea. Mild abdominal fullness and tenderness. NG tube in place - Current Medication List Current Medications: Active Medications Acetaminophen (Ofirmev Injection -) 1,000 mg IVPB Q6H PRN PRN Reason: PAIN Albuterol Sulfate (Ventolin 0.083% Nebulizer Soln -) 1 amp NEB RQID [facility] Last Admin: 09/09/17 20:20 Dose: Not Given Amlodipine Besylate (Norvasc -) 5 mg PO DAILY [facility] Last Admin: 09/09/17 10:59 Dose: Not Given Aspirin (Ecotrin -) 81 mg PO DAILY [facility] Last Admin: 09/09/17 10:58 Dose: Not Given Budesonide/Formoterol Fumarate (Symbicort 160/4.5mcg -) 1 puff IH BID [facility] Last Admin: 09/09/17 21:19 Dose: 1 puff Ezetimibe (Zetia -) 10 mg PO DAILY [facility] Last Admin: 09/09/17 10:59 Dose: Not Given Enalaprilat (Vasotec Injection -) 1.25 mg IVPB Q6H-IV MARK Finasteride (Proscar -) 5 mg PO DAILY [facility] Last Admin: 09/09/17 10:59 Dose: Not Given Gabapentin (Neurontin -) 600 mg PO DAILY [facility] Last Admin: 09/09/17 10:59 Dose: Not Given Gabapentin (Neurontin -) 800 mg PO HS [facility] Last Admin: 09/09/17 21:18 Dose: Not Given Heparin Sodium (Porcine) (Heparin -) 5,000 unit SQ BID [facility] Last Admin: 09/09/17 10:52 Dose: 5,000 unit IV Flush (Picc Line Flush) 8 ml IVPUSH PRN PRN PRN Reason: Protocol Amino Acids (Clinimix -) 1,000 mls @ 84 mls/hr IV Q12H [facility] Last Admin: 09/09/17 21:19 Dose: Not Given Dextrose/Sodium Chloride (D5-1/2ns+40 Meq Kcl -) 40 meq in 1,000 mls @ 83 mls/ hr IV ASDIR [facility] Last Admin: 09/09/17 18:26 Dose: 83 mls/hr Ibuprofen (Caldolor Injection -) 400 mg IVPB Q6H PRN PRN Reason: FEVER Last Admin: 09/09/17 13:34 Dose: 400 mg Insulin Aspart (Novolog Vial Sliding Scale -) 1 vial SQ [facility] PRN Reason: Protocol Last Admin: 09/09/17 17:14 Dose: 2 units Insulin Detemir (Levemir Vial) 24 units SQ [facility] Last Admin: 09/08/17 21:58 Dose: 24 units Methylnaltrexone [place] (Relistor -) 12 mg SQ DAILY [facility] Last Admin: 09/09/17 10:59 Dose: Not Given Metoprolol Tartrate (Lopressor Injection -) 5 mg IVPUSH Q8H PRN PRN Reason: HYPERTENSION Last Admin: 09/09/17 10:52 Dose: 5 mg Montelukast Sodium (Singulair -) 10 mg PO [facility] Last Admin: 09/09/17 21:18 Dose: Not Given Morphine Sulfate (Morphine Sulfate) 4 mg IVPUSH Q4H PRN PRN Reason: PAIN LEVEL 4 - 6 Last Admin: 09/09/17 21:17 Dose: 4 mg Ondansetron HCl (Zofran Injection) 4 mg IVPUSH Q6H PRN PRN Reason: NAUSEA AND/OR VOMITING Last Admin: 09/09/17 20:29 Dose: 4 mg Pancrelipase (Creon Dr 36,000 Units Capsule) 1 cap PO TIDCM [facility] Last Admin: 09/09/17 17:14 Dose: Not Given Pantoprazole Sodium (Protonix Iv) 40 mg IVPUSH DAILY [facility] Last Admin: 09/09/17 10:52 Dose: 40 mg Rosuvastatin Calcium (Crestor -) 10 mg PO [facility] Last Admin: 09/09/17 21:18 Dose: Not Given Tamsulosin HCl (Flomax -) 0.4 mg PO DAILY@0830 [facility] Last Admin: 09/09/17 08:01 Dose: Not Given Tiotropium [place] (Spiriva -) 1 puff IH DAILY [facility] Last Admin: 09/09/17 11:50 Dose: 1 puff - Objective Vital Signs: Vital Signs Temperature 98.6 F 09/09/17 20:05 Pulse Rate 98 H 09/09/17 20:05 Respiratory Rate 20 09/09/17 20:05 Blood Pressure 140/80 09/09/17 20:05 O2 Sat by Pulse Oximetry (%) 96 09/08/17 22:00 Constitutional: No: No Distress Eyes: No: Sclera Icterus HENT: Yes: Atraumatic, Normocephalic Neck: Yes: Supple, Trachea Midline, Other (tracheostomy site clean and dry) Respiratory: Yes: CTA Bilaterally Gastrointestinal: Yes: Soft, Distention, Tenderness Edema: No Neurological: Yes: Alert, Oriented Labs: CBC, BMP 09/09/17 06:30 09/09/17 06:30 INR, PTT INR 1.22 (0.82-1.09) H 08/21/17 06:55 - ....Imaging Cat Scan: Report Reviewed (partial SBO) Problem List - Problems (1) Umbilical hernia Code(s): K42.9 - UMBILICAL HERNIA WITHOUT OBSTRUCTION OR GANGRENE Qualifiers: Obstruction and gangrene presence: without obstruction or gangrene Qualified Code(s): K42.9 - Umbilical hernia without obstruction or gangrene (2) COPD (chronic obstructive pulmonary disease) Code(s): J44.9 - CHRONIC OBSTRUCTIVE PULMONARY DISEASE, UNSPECIFIED (3) Coronary artery disease Code(s): I25.10 - ATHSCL HEART DISEASE OF [place] CORONARY ARTERY W/O ANG PCTRS (4) Diabetes mellitus Code(s): E11.9 - TYPE 2 DIABETES MELLITUS WITHOUT COMPLICATIONS Qualifiers: Diabetes mellitus type: type 2 Diabetes mellitus complication detail: with unspecified neuropathy (5) Pancreatitis Code(s): K85.9 - ACUTE PANCREATITIS, UNSPECIFIED * DO NOT USE * Qualifiers: Chronicity: acute Pancreatitis type: other (6) Sleep apnea Code(s): G47.30 - SLEEP APNEA, UNSPECIFIED (7) Tracheostomy in place Code(s): Z98.89 - OTHER SPECIFIED POSTPROCEDURAL STATES * DO NOT USE * Assessment/Plan Respiratory status is stable. Partial SBO on latest Ct abdomen. Hypokalemia. Suggest: continue current treatment Potassium replacement Surgical evaluation in progress.
[2017-09-09] MEDS: INSULIN DETEMIR 100 UNITS/ML MDV SQ SCH (22:28)
[2017-09-09] MEDS: ENALAPRILAT DIHYDRATE 1.25 MG/1 ML VIAL IVPB SCH (22:50)
[2017-09-10] MEDS: morphine SULFATE 4 MG/ML VIAL IVPUSH PRN ×2 (00:58→05:16)
[2017-09-10] MEDS ORDERED: PT OWN MED DRAWER 7, Y5N ONE ×3 (02:57→13:07)
[2017-09-10] MEDS: ENALAPRILAT DIHYDRATE 1.25 MG/1 ML VIAL IVPB SCH ×3 (03:18→21:57)
[2017-09-10] MEDS: ONDANSETRON 4 MG/2 ML VIAL IVPUSH PRN ×2 (05:23→11:39)
[2017-09-10] MEDS: INSULIN SLIDING SCALE (NOVOLOG) 1 VIAL SQ SCH ×3 (06:05→22:55)
[2017-09-10] MEDS: ALBUTEROL SO4 0.083% IH SOL 2.5 MG/3 ML VIAL.NEB. NEB SCH ×4 (07:47→21:17)
[2017-09-10] MEDS: LIPASE/PROTEASE/AMYLASE 36,000 UNIT CAPSULE PO SCH ×2 (08:14→11:54)
[2017-09-10] MEDS: TAMSULOSIN HCL 0.4 MG CAP.ER.24H (FP) PO SCH (08:15)
[2017-09-10] MEDS: AMINO ACIDS 4.25%/D5W 1,000 ML IV SCH (08:15)
[2017-09-10 08:37] LABS: BASO % 0.5 % (0-2.0); EOS % 4.5 % (0-4.5); HEMATOCRIT 33.1 % (35.4-49); HEMOGLOBIN 11.1 GM/dL (11.7-16.9); LYMPH % 33.8 % (8-40); MCH 26.5 pg (25.7-33.7); MCHC 33.4 g/dl (32.0-35.9); MEAN CELL VOLUME 79.2 fl (80-96); MEAN PLT VOLUME 7.6 fl (7.5-11.1); NEUT % 50.2 % (42.8-82.8); PLATELET COUNT 277 K/MM3 (134-434); RBC 4.18 M/mm3 (4.00-5.60); RDW 14.9 % (11.9-15.9); WHITE BLOOD COUNT 9.7 K/mm3 (4.0-10.0)
[2017-09-10 09:13] LABS: ALBUMIN 2.5 g/dl (3.4-5.0); CHLORIDE 107 mmol/L (98-107); CREATININE 0.9 mg/dL (0.7-1.3); POTASSIUM 3.7 mmol/L (3.5-5.1); SGOT/AST 60 U/L (15-37); SGPT/ALT 75 U/L (12-78); SODIUM 139 mmol/L (136-145)
[2017-09-10] MEDS: ASPIRIN COATED 81 MG TABLET.EC PO SCH (09:15)
[2017-09-10] MEDS: FINASTERIDE 5 MG TABLET (FP) PO SCH (09:15)
[2017-09-10] MEDS: GABAPENTIN 300 MG CAPSULE (FP) PO SCH (09:15)
[2017-09-10] MEDS: amLODIPine BESYLATE 2.5 MG TABLET (FP) PO SCH (09:15)
[2017-09-10] MEDS: HEPARIN NA (PORCINE) 5,000 UNITS/ML 1ML VIAL SQ SCH ×2 (09:15→22:54)
[2017-09-10] MEDS: EZETIMIBE 10 MG TABLET (FP) PO SCH (09:16)
--- NOTE | 2017-09-10 09:17 | PN ---
GI Progress Note Subjective: No acute events NGT remains in place CT scan suggestive of high grade SBO - Objective Vital Signs: Vital Signs Temperature 98.5 F 09/10/17 08:00 Pulse Rate 85 09/10/17 08:00 Respiratory Rate 18 09/10/17 08:00 Blood Pressure 162/96 09/10/17 08:00 O2 Sat by Pulse Oximetry (%) 96 09/08/17 22:00 Constitutional: Calm Eyes: No: Sclera Icterus Cardiovascular: Yes: Regular Rate and Rhythm Respiratory: Yes: CTA Bilaterally Gastrointestinal Inspection: No: Distention (Mild tympany mid abdomen) ...Auscultate: Yes: Normoactive Bowel Sounds ...Palpate: Yes: Tenderness (At periumbilical area. Causing nausea as well) ...Percussion: Yes: Tympanitic Edema: No (No LE edema) Labs: CBC, BMP 09/10/17 08:20 INR, PTT INR 1.22 (0.82-1.09) H 08/21/17 06:55 - ....Imaging Cat Scan: Report Reviewed Problem List - Problems (1) SBO (small bowel obstruction) Assessment/Plan: CT scan c/w SBO Per nursing for the OR today NGT in place Monitor lytes Glycemic control Reglan and relistor discontinued Code(s): K56.609 - UNSP INTESTNL OBST, UNSP TO PARTIAL VERSUS COMPLETE OBST
[2017-09-10 09:21] LABS: ALK PHOS 96 U/L (45-117); ANION GAP 8 (8-16); BILIRUBIN,TOTAL 0.8 mg/dL (0.2-1.0); BLOOD UREA NITROGEN 10 mg/dL (7-18); CALCIUM 8.3 mg/dL (8.5-10.1); CHOLESTEROL 96 mg/dL (50-200); CO2 24 mmol/L (21-32); GLUCOSE,RANDOM 231 mg/dL (74-106); HDL CHOLESTEROL 26 mg/dL (40-60); LDL CHOLESTEROL (ONLY SJRH) 51 mg/dL (5-100); MAGNESIUM 1.9 mg/dL (1.8-2.4); PHOSPHOROUS 1.4 mg/dL (2.5-4.9); TOT PROT 5.4 g/dl (6.4-8.2); TRIGLYCERIDES 157 mg/dL (35-160)
[2017-09-10] MEDS: PANTOPRAZOLE SODIUM 40 MG VIAL IVPUSH SCH (09:31)
[2017-09-10] MEDS: BUDESONIDE/FORMETEROL FUMARATE 160/4.5 mcg INHALER IH SCH ×2 (09:39→22:56)
[2017-09-10] MEDS: TIOTROPIUM BROMIDE 18 MCG/INH (DEVICE W/ 5 CAPSULES) IH SCH (09:39)
[2017-09-10] MEDS ORDERED: POTASSIUM PHOSPHATE 30 MM in DEXTROSE 5%-WATER - 500 ML IVPB ONE (10:41)
[2017-09-10] MEDS: METOPROLOL TARTRATE 5 MG/5 ML VIAL IVPUSH PRN ×2 (11:06→18:30)
--- NOTE | 2017-09-10 11:15 | PN ---
Progress Note, Physician Chief Complaint: Pneumonia, Hematuria, Umbilical hernia History of Present Illness: doesn't feel well NGT NPO IVF PICC RUE on Clinimix CT abd yesterday showed incarcerated hernia hypokalemia resolved seen by Renal Plan to return to OR today at bedside - Current Medication List Current Medications: Active Medications Acetaminophen (Ofirmev Injection -) 1,000 mg IVPB Q6H PRN PRN Reason: PAIN Albuterol Sulfate (Ventolin 0.083% Nebulizer Soln -) 1 amp NEB RQID [facility] Last Admin: 09/10/17 07:47 Dose: Not Given Amlodipine Besylate (Norvasc -) 5 mg PO DAILY [facility] Last Admin: 09/10/17 09:15 Dose: Not Given Aspirin (Ecotrin -) 81 mg PO DAILY [facility] Last Admin: 09/10/17 09:15 Dose: Not Given Budesonide/Formoterol Fumarate (Symbicort 160/4.5mcg -) 1 puff IH BID [facility] Last Admin: 09/10/17 09:39 Dose: 1 puff Ezetimibe (Zetia -) 10 mg PO DAILY [facility] Last Admin: 09/10/17 09:16 Dose: Not Given Enalaprilat (Vasotec Injection -) 1.25 mg IVPB Q6H-IV [facility] Last Admin: 09/10/17 09:31 Dose: 1.25 mg Finasteride (Proscar -) 5 mg PO DAILY [facility] Last Admin: 09/10/17 09:15 Dose: Not Given Gabapentin (Neurontin -) 600 mg PO DAILY [facility] Last Admin: 09/10/17 09:15 Dose: Not Given Gabapentin (Neurontin -) 800 mg PO HS [facility] Last Admin: 09/09/17 21:18 Dose: Not Given Heparin Sodium (Porcine) (Heparin -) 5,000 unit SQ BID [facility] Last Admin: 09/10/17 09:15 Dose: Not Given IV Flush (Picc Line Flush) 8 ml IVPUSH PRN PRN PRN Reason: Protocol Amino Acids (Clinimix -) 1,000 mls @ 84 mls/hr IV Q12H [facility] Last Admin: 09/10/17 08:15 Dose: Not Given Dextrose/Sodium Chloride (D5-1/2ns+40 Meq Kcl -) 40 meq in 1,000 mls @ 83 mls/ hr IV ASDIR [facility] Last Admin: 09/09/17 18:26 Dose: 83 mls/hr Potassium Phosphate 30 mm/ (Dextrose) 510 mls @ 62.5 mls/hr IVPB ONCE ONE Stop: 09/10/17 18:50 Ibuprofen (Caldolor Injection -) 400 mg IVPB Q6H PRN PRN Reason: FEVER Last Admin: 09/09/17 13:34 Dose: 400 mg Insulin Aspart (Novolog Vial Sliding Scale -) 1 vial SQ [facility] PRN Reason: Protocol Last Admin: 09/10/17 06:05 Dose: 4 units Insulin Detemir (Levemir Vial) 24 units SQ [facility] Last Admin: 09/09/17 22:28 Dose: 24 units Metoprolol Tartrate (Lopressor Injection -) 5 mg IVPUSH Q8H PRN PRN Reason: HYPERTENSION Last Admin: 09/10/17 11:06 Dose: 5 mg Montelukast Sodium (Singulair -) 10 mg PO [facility] Last Admin: 09/09/17 21:18 Dose: Not Given Morphine Sulfate (Morphine Sulfate) 4 mg IVPUSH Q4H PRN PRN Reason: PAIN LEVEL 4 - 6 Last Admin: 09/10/17 05:16 Dose: 4 mg Ondansetron HCl (Zofran Injection) 4 mg IVPUSH Q6H PRN PRN Reason: NAUSEA AND/OR VOMITING Last Admin: 09/10/17 05:23 Dose: 4 mg Pancrelipase (Creon Dr 36,000 Units Capsule) 1 cap PO TIDCM [facility] Last Admin: 09/10/17 08:14 Dose: Not Given Pantoprazole Sodium (Protonix Iv) 40 mg IVPUSH DAILY [facility] Last Admin: 09/10/17 09:31 Dose: 40 mg Rosuvastatin Calcium (Crestor -) 10 mg PO [facility] Last Admin: 09/09/17 21:18 Dose: Not Given Tamsulosin HCl (Flomax -) 0.4 mg PO DAILY@0830 [facility] Last Admin: 09/10/17 08:15 Dose: Not Given Tiotropium [place] (Spiriva -) 1 puff IH DAILY [facility] Last Admin: 09/10/17 09:39 Dose: 1 puff - Objective Vital Signs: Vital Signs Temperature 98.5 F 09/10/17 08:00 Pulse Rate 89 09/10/17 11:06 Respiratory Rate 18 09/10/17 08:00 Blood Pressure 167/103 09/10/17 11:06 O2 Sat by Pulse Oximetry (%) 96 09/08/17 22:00 Constitutional: Yes: Well Nourished, No Distress, Anxious Cardiovascular: Yes: Regular Rate and Rhythm Respiratory: Yes: Regular Gastrointestinal: Yes: Soft, Abdomen, Obese, Hypoactive Bowel Sounds, Tenderness Musculoskeletal: Yes: WNL Extremities: Yes: WNL Edema: No Peripheral Pulses WNL: Yes Wound/Incision: Yes: Open to air (umbilical post surgical wound) Neurological: Yes: Alert, Oriented Psychiatric: Yes: Alert, Oriented Labs: CBC, BMP 09/10/17 08:20 09/10/17 08:20 INR, PTT INR 1.22 (0.82-1.09) H 08/21/17 06:55 Problem List - Problems (1) Umbilical hernia Assessment/Plan: -seen by GI surgery -s/p hernia repair -repeat Ct abdomen showed possible incarcerated hernia -pt going to OR today Code(s): K42.9 - UMBILICAL HERNIA WITHOUT OBSTRUCTION OR GANGRENE Qualifiers: Obstruction and gangrene presence: without obstruction or gangrene Qualified Code(s): K42.9 - Umbilical hernia without obstruction or gangrene (2) ASHD (arteriosclerotic heart disease) Assessment/Plan: -seen by Cardiology -Plavix on hold Code(s): I25.10 - ATHSCL HEART DISEASE OF [place] CORONARY ARTERY W/O ANG PCTRS (3) SBO (small bowel obstruction) Assessment/Plan: -NGT -CT abdomen with contrast reviewed -Acetaminophen and Ibuprofen -morphine Code(s): K56.609 - UNSP INTESTNL OBST, UNSP TO PARTIAL VERSUS COMPLETE OBST (4) Hypertension Assessment/Plan: Metoprolol 5 mg IVP if SBP >150 mm Hg -Enalipril IV added by Nephrology Code(s): I10 - ESSENTIAL (PRIMARY) HYPERTENSION Qualifiers: Hypertension type: essential hypertension Qualified Code(s): I10 - Essential (primary) hypertension (5) Hypokalemia Assessment/Plan: -normalized -TPN initiation today -repeat labs in AM -renal consult appreciated Code(s): E87.6 - HYPOKALEMIA (6) Diabetes mellitus, insulin dependent (IDDM), uncontrolled Assessment/Plan: -BGM -Clinimix dc'd -start TPN as per nephrology -levemir to 24 units HS Code(s): E10.65 - TYPE 1 DIABETES MELLITUS WITH HYPERGLYCEMIA Assessment/Plan see problem list right UE PICC line placed yesterday spoke to patient and in dept Zofran for nausea Recommended BITE BLOCK MAKER pump post surgery
[2017-09-10] MEDS ORDERED: INSULIN (NOVOLOG) ASPART 100 UNITS/ML 10ML VIAL ONE (11:45)
--- NOTE | 2017-09-10 12:38 | PN ---
Progress Note (short form) - Note Progress Note: CT A/P performed Recurrent umbilical hernia with incarcerated bowel loop NG tube in place Vital Signs Period Temp Pulse Resp BP Sys/Gates Pulse Ox Last 24 Hr 98.2 F-98.6 F 82-98 14-20 132-167/74-103 97 Abd soft CBC, BMP 09/10/17 08:20 09/10/17 08:[address] findings with patient, , and son and the bedside For open repair of umbilical hernia with possible mesh, possible bowel resection Risks and benefits explained Understand and agrees Problem List - Problems (1) Umbilical hernia Code(s): K42.9 - UMBILICAL HERNIA WITHOUT OBSTRUCTION OR GANGRENE Qualifiers: Obstruction and gangrene presence: without obstruction or gangrene Qualified Code(s): K42.9 - Umbilical hernia without obstruction or gangrene
[2017-09-10] MEDS ORDERED: HYDROmorphone *PCA* 6MG/30ML DISP.SYRIN PCA SCH (12:45)
--- NOTE | 2017-09-10 13:11 | PN ---
Progress Note (short form) - Note Progress Note: Renal follow up for Hypokalemia/TPN Pt seen and examined at the bedside continues to have abd pain remains NPO for OR later today Vital Signs Temperature 98.5 F 09/10/17 08:00 Pulse Rate 89 09/10/17 11:06 Respiratory Rate 18 09/10/17 08:00 Blood Pressure 167/103 09/10/17 11:06 O2 Sat by Pulse Oximetry (%) 97 09/10/17 09:00 Intake & Output 09/07/17 09/08/17 09/09/17 09/10/17 23:59 23:59 23:59 23:59 Intake Total 2342 2208 4998 498 Output Total 1030 2600 1800 1700 Balance 1312 -392 3198 -1202 Weight 118.189 kg 118.841 kg 112.037 kg 112.582 kg NAD awake and alert + abd tenderness No LE edema CBC, BMP 09/10/17 08:20 09/10/17 08:20 Current Medications Acetaminophen (Ofirmev Injection -) 1,000 mg IVPB Q6H PRN PRN Reason: PAIN Albuterol Sulfate (Ventolin 0.083% Nebulizer Soln -) 1 amp NEB RQID [facility] Last Admin: 09/10/17 11:33 Dose: Not Given Amlodipine Besylate (Norvasc -) 5 mg PO DAILY [facility] Last Admin: 09/10/17 09:15 Dose: Not Given Aspirin (Ecotrin -) 81 mg PO DAILY [facility] Last Admin: 09/10/17 09:15 Dose: Not Given Budesonide/Formoterol Fumarate (Symbicort 160/4.5mcg -) 1 puff IH BID [facility] Last Admin: 09/10/17 09:39 Dose: 1 puff Ezetimibe (Zetia -) 10 mg PO DAILY [facility] Last Admin: 09/10/17 09:16 Dose: Not Given Enalaprilat (Vasotec Injection -) 1.25 mg IVPB Q6H-IV [facility] Last Admin: 09/10/17 09:31 Dose: 1.25 mg Finasteride (Proscar -) 5 mg PO DAILY [facility] Last Admin: 09/10/17 09:15 Dose: Not Given Gabapentin (Neurontin -) 600 mg PO DAILY [facility] Last Admin: 09/10/17 09:15 Dose: Not Given Gabapentin (Neurontin -) 800 mg PO HS [facility] Last Admin: 09/09/17 21:18 Dose: Not Given Heparin Sodium (Porcine) (Heparin -) 5,000 unit SQ BID [facility] Last Admin: 09/10/17 09:15 Dose: Not Given Hydromorphone HCl (Dilaudid Nurses Supervisor -) 6 mg PSYCHOLOGY PROFESSOR PSYCHOLOGY PROFESSOR MARK PRN Reason: Protocol Stop: 09/17/17 12:33 IV Flush (Picc Line Flush) 8 ml IVPUSH PRN PRN PRN Reason: Protocol Amino Acids (Clinimix -) 1,000 mls @ 84 mls/hr IV Q12H [facility] Last Admin: 09/10/17 08:15 Dose: Not Given Dextrose/Sodium Chloride (D5-1/2ns+40 Meq Kcl -) 40 meq in 1,000 mls @ 83 mls/ hr IV ASDIR [facility] Last Admin: 09/09/17 18:26 Dose: 83 mls/hr Potassium Phosphate 30 mm/ (Dextrose) 510 mls @ 62.5 mls/hr IVPB ONCE ONE Stop: 09/10/17 18:50 Last Admin: 09/10/17 11:39 Dose: 62.5 mls/hr Ibuprofen (Caldolor Injection -) 400 mg IVPB Q6H PRN PRN Reason: FEVER Last Admin: 09/09/17 13:34 Dose: 400 mg Insulin Aspart (Novolog Vial Sliding Scale -) 1 vial SQ ACHS [facility] PRN Reason: Protocol Last Admin: 09/10/17 11:46 Dose: 4 units Insulin Detemir (Levemir Vial) 24 units SQ [facility] Last Admin: 09/09/17 22:28 Dose: 24 units Metoprolol Tartrate (Lopressor Injection -) 5 mg IVPUSH Q8H PRN PRN Reason: HYPERTENSION Last Admin: 09/10/17 11:06 Dose: 5 mg Montelukast Sodium (Singulair -) 10 mg PO [facility] Last Admin: 09/09/17 21:18 Dose: Not Given Ondansetron HCl (Zofran Injection) 4 mg IVPUSH Q6H PRN PRN Reason: NAUSEA AND/OR VOMITING Last Admin: 09/10/17 11:39 Dose: 4 mg Pancrelipase (Creon Dr 36,000 Units Capsule) 1 cap PO TIDCM [facility] Last Admin: 09/10/17 11:54 Dose: Not Given Pantoprazole Sodium (Protonix Iv) 40 mg IVPUSH DAILY [facility] Last Admin: 09/10/17 09:31 Dose: 40 mg Rosuvastatin Calcium (Crestor -) 10 mg PO HS [facility] Last Admin: 09/09/17 21:18 Dose: Not Given Tamsulosin HCl (Flomax -) 0.4 mg PO DAILY@0830 [facility] Last Admin: 09/10/17 08:15 Dose: Not Given Tiotropium [place] (Spiriva -) 1 puff IH DAILY [facility] Last Admin: 09/10/17 09:39 Dose: 1 puff 61 year old gentleman with PMhx of CAD s/p stents and CABG, Chronic Pancreatitis , Hypertension, HLD who presented with abd pain and now s/p open resection of incarcerated umbilical hernia with ileus and prolonged NPO status. #s/p open resection of incarcerated hernia with prolonged NPO status there is currently a TPN shortage in the hospital will use lower protein clinamix solution with lipids cannot add electrolytes to this solution so will continue to need IVPB supplementation fo PHos/K/Ca as needed can d/c 1/2 NS when TPN solution is brought up by the pharmacy #Hypokalemia improved today trend K and Mg daily #Hypertension continue enalapril IV Q6h, Metoprolol IV goal BP < 140/90 #Incarcerated Hernia for repeat OR today Surgical follow up #Hypophosphatemia give IV k-phos today repeat levels this evening Thank you Az Nelson DO
[2017-09-10] MEDS ORDERED: BUPIVACAINE HCL/PF 0.5% (5MG/ML) 10 ML VIAL ONE (13:34)
[2017-09-10] MEDS ORDERED: MIDAZOLAM HCL 2 MG/2 ML SINGLE DOSE VIAL ONE ×3 (13:38→15:55)
[2017-09-10] MEDS ORDERED: ePHEDrine SULFATE 50 MG/1 ML AMPULE ONE (14:23)
[2017-09-10] MEDS ORDERED: ceFAZolin SODIUM 1 GM VIAL ONE (14:23)
[2017-09-10] MEDS ORDERED: ceFAZolin SODIUM 1 GM VIAL IVPB ONE (14:26)
[2017-09-10] MEDS ORDERED: PROPOFOL 20 ML ONE ×2 (14:35)
[2017-09-10] MEDS ORDERED: ONDANSETRON 4 MG/2 ML VIAL IVPUSH PRN (16:29)
[2017-09-10] MEDS ORDERED: LACTATED RINGERS SOLUTION 1,000 ML IV SCH (16:30)
--- NOTE | 2017-09-10 16:35 | OP ---
Operative Note - Note: Operative Date: 09/10/17 Pre-Operative Diagnosis: Incarcerated umbilical hernia Operation: Exploratory laparotomy. Extensive lysis of adhesions. Small bowel resection. Open repar of umbilical hernia Post-Operative Diagnosis: Same as Pre-op Surgeon: Mateusz Cabrera Hvac Controls Technician: Wander Holloway Anesthesia: Spinal, MAC Specimens Removed: Small bowel Estimated Blood Loss (mls): 30 Operative Report Dictated: Yes
[2017-09-10] MEDS ORDERED: HYDROmorphone *PCA* 6MG/30ML DISP.SYRIN PCA ONE (16:42)
[2017-09-10] MEDS: HYDROmorphone *PCA* 6MG/30ML DISP.SYRIN PCA SCH (17:00)
[2017-09-10] MEDS ORDERED: ACETAMINOPHEN 1000 MG/100 ML VIAL (NON FORMULARY) IVPB PRN (17:14)
[2017-09-10] MEDS ORDERED: METOPROLOL TARTRATE 5 MG/5 ML VIAL ONE (18:27)
[2017-09-10 18:51] LABS: BASO % 0.3 % (0-2.0); EOS % 2.5 % (0-4.5); HEMOGLOBIN 12.1 GM/dL (11.7-16.9); LYMPH % 30.6 % (8-40); MCH 26.6 pg (25.7-33.7); MCHC 32.8 g/dl (32.0-35.9); MEAN CELL VOLUME 81.1 fl (80-96); MONO % 7.8 % (3.8-10.2); NEUT % 58.8 % (42.8-82.8); PLATELET COUNT 294 K/MM3 (134-434); RBC 4.57 M/mm3 (4.00-5.60); WHITE BLOOD COUNT 11.5 K/mm3 (4.0-10.0)
[2017-09-10] MEDS ORDERED: hydrALAZINE HCL 20 MG/ML VIAL ONE (19:17)
[2017-09-10 19:24] LABS: ANION GAP 10 (8-16); BLOOD UREA NITROGEN 10 mg/dL (7-18); CALCIUM 8.4 mg/dL (8.5-10.1); CHLORIDE 104 mmol/L (98-107); CO2 24 mmol/L (21-32); CREATININE 1.2 mg/dL (0.7-1.3); GLUCOSE,RANDOM 258 mg/dL (74-106); POTASSIUM 4.1 mmol/L (3.5-5.1); SODIUM 138 mmol/L (136-145)
[2017-09-10] MEDS ORDERED: METOPROLOL TARTRATE 5 MG/5 ML VIAL IVPUSH ONE (19:30)
[2017-09-10] MEDS ORDERED: hydrALAZINE HCL 20 MG/ML VIAL IVPUSH ONE (19:30)
[2017-09-10] MEDS ORDERED: AMINO ACIDS 4.25%/D5W 1,000 ML IV SCH (21:00)
[2017-09-10] MEDS ORDERED: INSULIN SLIDING SCALE (NOVOLOG) 1 VIAL SQ SCH (22:00)
--- NOTE | 2017-09-10 22:33 | PN ---
Progress Note, Physician Chief Complaint: has pain at surgical sight History of Present Illness: dm,iddm,htn,sp opern repair incarcerated hernia,post op blood sugars labile npo - Current Medication List Current Medications: Active Medications Acetaminophen (Ofirmev Injection -) 1,000 mg IVPB Q6H PRN PRN Reason: PAIN Albuterol Sulfate (Ventolin 0.083% Nebulizer Soln -) 1 amp NEB RQID [facility] Last Admin: 09/10/17 21:17 Dose: Not Given Amlodipine Besylate (Norvasc -) 5 mg PO DAILY [facility] Aspirin (Ecotrin -) 81 mg PO DAILY [facility] Budesonide/Formoterol Fumarate (Symbicort 160/4.5mcg -) 1 puff IH BID [facility] Enalaprilat (Vasotec Injection -) 1.25 mg IVPB Q6H-IV [facility] Last Admin: 09/10/17 21:57 Dose: 1.25 mg Finasteride (Proscar -) 5 mg PO DAILY [facility] Heparin Sodium (Porcine) (Heparin -) 5,000 unit SQ BID [facility] Hydromorphone HCl (Dilaudid Hardening Machine Operator -) 6 mg QUALITY ASSURANCE LEAD QUALITY ASSURANCE LEAD MARK PRN Reason: Protocol Stop: 09/17/17 17:09 Last Admin: 09/10/17 17:00 Dose: 6 mg IV Flush (Picc Line Flush) 8 ml IVPUSH PRN PRN PRN Reason: Protocol Dextrose/Sodium Chloride (D5-1/2ns+40 Meq Kcl -) 40 meq in 1,000 mls @ 83 mls/ hr IV ASDIR MARK AA 2.75 %/CALCIUM/LYTES/D7.5W (Clinimix 2.75%-7.5% Solution) 1,000 mls @ 84 mls /hr IVPB Q12H [facility] Insulin Aspart (Novolog Vial Sliding Scale -) 1 vial SQ ACHS [facility] PRN Reason: Protocol Insulin Detemir (Levemir Vial) 24 units SQ HS [facility] Metoprolol Tartrate (Lopressor Injection -) 5 mg IVPUSH Q8H PRN PRN Reason: HYPERTENSION Last Admin: 09/10/17 18:30 Dose: 5 mg Montelukast Sodium (Singulair -) 10 mg PO HS [facility] Ondansetron HCl (Zofran Injection) 4 mg IVPUSH Q6H PRN PRN Reason: NAUSEA AND/OR VOMITING Pancrelipase (Creon Dr 36,000 Units Capsule) 1 cap PO TIDCM [facility] Pantoprazole Sodium (Protonix Iv) 40 mg IVPUSH DAILY [facility] Tamsulosin HCl (Flomax -) 0.4 mg PO DAILY@0830 [facility] Tiotropium [place] (Spiriva -) 1 puff IH DAILY [facility] - Objective Vital Signs: Vital Signs Temperature 99.9 F H 09/10/17 19:35 Pulse Rate 103 H 09/10/17 19:35 Respiratory Rate 18 09/10/17 19:35 Blood Pressure 149/86 09/10/17 19:35 O2 Sat by Pulse Oximetry (%) 100 09/10/17 19:35 Constitutional: Yes: Anxious Eyes: Yes: EOM Intact HENT: Yes: Normocephalic Neck: Yes: Trachea Midline Cardiovascular: Yes: Regular Rate and Rhythm Respiratory: Yes: CTA Bilaterally, On Venti-Mask, SOB on Exertion Gastrointestinal: Yes: Hypoactive Bowel Sounds, Tenderness, Epigastrium ...Rectal Exam: Yes: Deferred Genitourinary: Yes: WNL Breast(s): Yes: WNL Musculoskeletal: Yes: WNL Extremities: Yes: WNL Wound/Incision: Yes: Dressing Dry and Intact Neurological: Yes: Alert, Oriented Labs: CBC, BMP 09/10/17 18:00 09/10/17 18:00 INR, PTT INR 1.22 (0.82-1.09) H 08/21/17 06:55 Problem List - Problems (1) 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 Code(s): E10.8 - TYPE 1 DIABETES MELLITUS WITH UNSPECIFIED COMPLICATIONS (2) Chronic pancreatitis Code(s): K86.1 - OTHER CHRONIC PANCREATITIS Qualifiers: Pancreatitis type: unspecified pancreatitis type Qualified Code(s): K86.1 - Other chronic pancreatitis (3) ASHD (arteriosclerotic heart disease) Code(s): I25.10 - ATHSCL HEART DISEASE OF [place] CORONARY ARTERY W/O ANG PCTRS (4) Abdominal pain Code(s): R10.9 - UNSPECIFIED ABDOMINAL PAIN Qualifiers: Abdominal location: upper abdomen, unspecified Qualified Code(s): R10.10 - Upper abdominal pain, unspecified (5) Acute on chronic diastolic (congestive) heart failure Code(s): I50.33 - ACUTE ON CHRONIC DIASTOLIC (CONGESTIVE) HEART FAILURE Assessment/Plan Current Active Problems CHF (congestive heart failure) (Acute) Chest pain (Acute) Chronic pancreatitis (Acute) 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 (Acute) H/O umbilical hernia repair (Acute) Hematuria (Acute) Pneumonia (Acute) Renal calculus, left (Acute) SBO (small bowel obstruction) (Acute) Umbilical hernia (Acute) Abnormal Lab Results 09/10/17 09/10/17 09/10/17 08:20 08:20 18:00 WBC 11.5 H Hgb 11.1 L Hct 33.1 L MCV 79.2 L Monocytes % 11.0 H Random Glucose 231 H D Calcium 8.3 L Phosphorus 1.4 L D AST 60 H D Total Protein 5.4 L Albumin 2.5 L HDL Cholesterol 26 L D 09/10/17 18:00 WBC Hgb Hct MCV Monocytes % Random Glucose 258 H Calcium 8.4 L Phosphorus AST Total Protein Albumin HDL Cholesterol Laboratory Results - last 24 hr 09/09/17 09/10/17 09/10/17 22:24 05:21 08:20 WBC RBC Hgb Hct MCV MCH MCHC RDW Plt Count MPV Neutrophils % Lymphocytes % Monocytes % Eosinophils % Basophils % Sodium 139 Potassium 3.7 Chloride 107 Carbon Dioxide 24 Anion Gap 8 BUN 10 D Creatinine 0.9 Creat Clearance w eGFR > 60 POC Glucometer 210 234 Random Glucose 231 H D Calcium 8.3 L Phosphorus 1.4 L D Magnesium 1.9 Total Bilirubin 0.8 AST 60 H D ALT 75 D Alkaline Phosphatase 96 Total Protein 5.4 L Albumin 2.5 L Triglycerides 157 Cholesterol 96 D Total LDL Cholesterol 51 D HDL Cholesterol 26 L D 09/10/17 09/10/17 09/10/17 08:20 08:20 11:44 WBC 9.7 RBC 4.18 Hgb 11.1 L Hct 33.1 L MCV 79.2 L MCH 26.5 MCHC 33.4 RDW 14.9 Plt Count 277 MPV 7.6 Neutrophils % 50.2 Lymphocytes % 33.8 Monocytes % 11.0 H Eosinophils % 4.5 Basophils % 0.5 Sodium Potassium Chloride Carbon Dioxide Anion Gap BUN Creatinine Creat Clearance w eGFR POC Glucometer 235 Random Glucose Calcium Phosphorus Cancelled Magnesium Total Bilirubin AST ALT Alkaline Phosphatase Total Protein Albumin Triglycerides Cholesterol Total LDL Cholesterol HDL Cholesterol 09/10/17 09/10/17 18:00 18:00 WBC 11.5 H RBC 4.57 Hgb 12.1 Hct 37.0 MCV 81.1 MCH 26.6 MCHC 32.8 RDW 15.0 Plt Count 294 MPV 8.0 Neutrophils % 58.8 Lymphocytes % 30.6 Monocytes % 7.8 Eosinophils % 2.5 Basophils % 0.3 Sodium 138 Potassium 4.1 Chloride 104 Carbon Dioxide 24 Anion Gap 10 BUN 10 Creatinine 1.2 D Creat Clearance w eGFR POC Glucometer Random Glucose 258 H Calcium 8.4 L Phosphorus Magnesium Total Bilirubin AST ALT Alkaline Phosphatase Total Protein Albumin Triglycerides Cholesterol Total LDL Cholesterol HDL Cholesterol plan: bgm q4hrs levemir if sugar over 180mg/dl 20 units iv clinimex
[2017-09-10] MEDS: INSULIN DETEMIR 100 UNITS/ML MDV SQ SCH (22:55)
[2017-09-10] MEDS: MONTELUKAST NA 10 MG TABLET PO SCH (23:05)
[2017-09-10] MEDS: AA 2.75 %/CALCIUM/LYTES/D7.5W 1,000 ML IVPB SCH (23:50)
[2017-09-11] MEDS: D5-1/2NS+40 MEQ KCL - 40 MEQ/1,000 ML INFUS.BAG IV SCH (00:45)
[2017-09-11] MEDS: LIPASE/PROTEASE/AMYLASE 36,000 UNIT CAPSULE PO SCH ×4 (00:46→18:10)
[2017-09-11] MEDS: PICC LINE 8 ML FLUSH PROTOCOL IVPUSH PRN (01:31)
[2017-09-11] MEDS: ONDANSETRON 4 MG/2 ML VIAL IVPUSH PRN ×2 (01:42→17:29)
[2017-09-11] MEDS: METOPROLOL TARTRATE 5 MG/5 ML VIAL IVPUSH PRN ×2 (02:01→12:51)
[2017-09-11] MEDS: INSULIN SLIDING SCALE (NOVOLOG) 1 VIAL SQ SCH ×6 (02:23→21:34)
[2017-09-11] MEDS: ENALAPRILAT DIHYDRATE 1.25 MG/1 ML VIAL IVPB SCH ×2 (02:43→09:34)
[2017-09-11] MEDS: HYDROmorphone *PCA* 6MG/30ML DISP.SYRIN PCA SCH (04:25)
[2017-09-11 07:05] LABS: BASO % 0.4 % (0-2.0); EOS % 1.6 % (0-4.5); HEMATOCRIT 37.8 % (35.4-49); HEMOGLOBIN 12.3 GM/dL (11.7-16.9); LYMPH % 24.2 % (8-40); MCH 26.2 pg (25.7-33.7); MCHC 32.5 g/dl (32.0-35.9); MEAN CELL VOLUME 80.5 fl (80-96); MEAN PLT VOLUME 8.1 fl (7.5-11.1); MONO % 7.3 % (3.8-10.2); NEUT % 66.5 % (42.8-82.8); PLATELET COUNT 331 K/MM3 (134-434); RBC 4.69 M/mm3 (4.00-5.60); RDW 15.1 % (11.9-15.9); WHITE BLOOD COUNT 14.9 K/mm3 (4.0-10.0)
[2017-09-11 07:35] LABS: ALBUMIN 2.4 g/dl (3.4-5.0); ANION GAP 13 (8-16); BILIRUBIN,TOTAL 0.8 mg/dL (0.2-1.0); BLOOD UREA NITROGEN 9 mg/dL (7-18); CALCIUM 8.6 mg/dL (8.5-10.1); CHLORIDE 102 mmol/L (98-107); CO2 22 mmol/L (21-32); CREATININE 1.1 mg/dL (0.7-1.3); MAGNESIUM 2.2 mg/dL (1.8-2.4); PHOSPHOROUS 3.3 mg/dL (2.5-4.9); POTASSIUM 4.3 mmol/L (3.5-5.1); SGOT/AST 60 U/L (15-37); SGPT/ALT 93 U/L (12-78); SODIUM 137 mmol/L (136-145); TOT PROT 5.9 g/dl (6.4-8.2)
[2017-09-11 07:37] LABS: ALK PHOS 108 U/L (45-117)
[2017-09-11 07:47] LABS: GLUCOSE,RANDOM 316 mg/dL (74-106)
[2017-09-11] MEDS: ALBUTEROL SO4 0.083% IH SOL 2.5 MG/3 ML VIAL.NEB. NEB SCH ×4 (07:48→20:50)
[2017-09-11] MEDS: TAMSULOSIN HCL 0.4 MG CAP.ER.24H (FP) PO SCH (08:17)
--- NOTE | 2017-09-11 09:25 | OP ---
DATE OF OPERATION: 09/10/2017 SURGEON: Mateusz Cabrera MD CHANCERY CLERK: Wander Holloway MD PREOPERATIVE DIAGNOSES: Incarcerated umbilical hernia. POSTOPERATIVE DIAGNOSES: Incarcerated umbilical hernia, dense intraabdominal adhesions, bowel ischemia. PROCEDURE: 1. Exploratory laparotomy. 2. Extensive lysis of adhesions. 3. Small bowel resection with primary anastomosis. 4. Repair of open incarcerated umbilical hernia. SPECIMEN: Small bowel. ESTIMATED BLOOD LOSS: 10 mL. DRAINS: None. ANESTHESIA: Spinal/MAC. TUBE: NG tube which was placed prior to surgery. REASON FOR PROCEDURE: This is a 61-year-old gentleman who had undergone a repair of an incarcerated umbilical hernia on August 26, 2017. He was found to have incarcerated omentum and intraabdominal adhesions. An open repair of an incarcerated umbilical hernia, lysis of adhesions, and omentectomy were performed. This was done with Dr. Jose Enrique Garcia. At the end of the initial case, it was noted that the fascia was completely closed, and the hernia defect repaired. Patient was watched in his postoperative course. He developed signs of ileus versus bowel obstruction on serial abdominal x-rays. He developed nausea and vomiting after which an NG tube was placed. He was treated for ileus/obstruction. However, the ileus/obstruction persisted. Because of the persistence, a CT of the abdomen and pelvis was performed. It was noted there was a portion of small bowel that was incarcerated within the umbilical hernia defect. Because of this, he was consented for an open umbilical hernia repair, possible mesh, possible bowel resection. The risks and benefits of the procedure were explained. These included bleeding, infection, recurrence of hernia, injury to surrounding structures including intraabdominal structures such as the bowel, colon, vessel injury, nerve injury, fascial dehiscence, wound dehiscence, hematoma, seroma, abscess, anastomotic leak, OR, DVT, PE, stroke, and as some of the complications. He understood and signed informed consent. DESCRIPTION OF PROCEDURE: After spinal anesthesia was given by Anesthesia, the patient was placed supine on the operating room table. The abdomen was prepped and draped with Betadine in the usual sterile fashion. Time-out was performed. An incision was made through the prior incision at the inferior aspect of his umbilicus. The skin and subcutaneous tissue were dissected down. It was noted that there was small bowel within the subcutaneous tissues above the level of the fascia. There were dense adhesions from the bowel to the abdominal wall as well as in between bowel loops. Careful, meticulous dissection was performed to free up all bowel loops. This took an extensive amount of time, and after meticulous dissection, the bowel loops were freed. The fascia was grasped with Hailey clamps and circumferentially the bowel freed from the fascia. The fascia was opened inferiorly and then superiorly in order to allow the bowel to be exteriorized and inspected. The bowel was then evaluated. A small portion of small bowel was noted to be deserosalized and ischemic. Because of its appearance, it was decided that this bowel needed to be resected. Proximal and distal to this area, tonsil clamps were inserted to the mesentery, and GI stapler with blue loads was used to transect the bowel. LigaSure was used to transect the mesentery. The specimen was sent off the field. The two ends of the bowel were then brought together and secured proximally and distally with 3-0 silk sutures. The edges of the bowel were then transected using a curved [place], and the bowel was anastomosed using a DIANNE stapler with blue load followed by a TA stapler with blue load. The staple lines were all inspected and noted to be fully intact. The mesentery was then closed using 0 Ti-Cron suture. Copious irrigation and suction was performed until clear. The bowel was then placed back in the abdominal cavity. The abdominal fascia was then closed using a 0 looped Maxon. The fascia was noted to be fully secured at the end of the case. Then, 3-0 Vicryl suture was used to close the deep dermal and subcutaneous tissue, and the skin was closed using irais. Betadine ointment was placed over the wound, and the wound covered with sterile dressings. The patient tolerated the procedure well. The NG tube was left in position. Patient was transferred to telemetry. Description of the procedure was explained to both the patient and his and his son. It was noted during the case that it appeared the prior suture that was placed for the initial hernia repair had popped open causing the hernia defect to be re-opened and allowing small bowel again to traverse the fascia and be incarcerated. Connor [id number] MTDD
[2017-09-11] MEDS: ACETAMINOPHEN 1000 MG/100 ML VIAL (NON FORMULARY) IVPB PRN ×3 (09:35→21:28)
[2017-09-11] MEDS ORDERED: amLODIPine BESYLATE 2.5 MG TABLET (FP) PO SCH (10:00)
[2017-09-11] MEDS: PANTOPRAZOLE SODIUM 40 MG VIAL IVPUSH SCH (10:10)
[2017-09-11] MEDS: BUDESONIDE/FORMETEROL FUMARATE 160/4.5 mcg INHALER IH SCH ×2 (10:16→21:17)
[2017-09-11] MEDS: TIOTROPIUM BROMIDE 18 MCG/INH (DEVICE W/ 5 CAPSULES) IH SCH (10:16)
[2017-09-11] MEDS: ASPIRIN COATED 81 MG TABLET.EC PO SCH (10:18)
[2017-09-11] MEDS: FINASTERIDE 5 MG TABLET (FP) PO SCH (11:10)
[2017-09-11] MEDS: AA 2.75 %/CALCIUM/LYTES/D7.5W 1,000 ML IVPB SCH ×2 (11:30→21:36)
--- NOTE | 2017-09-11 12:40 | PN ---
Progress Note (short form) - Note Progress Note: POD 1 On dilaudid INVENTORY CHECKER for pain NG tube in place No flatus/BM Abdominal binder in place Vital Signs Period Temp Pulse Resp BP Sys/Gates Pulse Ox Last 24 Hr 98.7 F-100.6 F 90-144 16-20 113-201/65-118 98-100 Abd soft, dressing intact CBC, BMP 09/11/17 06:50 09/11/17 06:50 AXR- improved- no bowel obstruction seen/contrast in colon IV levaquin/flagyl Ambulate/PT Abdominal binder at all times Clinimex Pain control Glycemic control NG tube to suction Problem List - Problems (1) Umbilical hernia Code(s): K42.9 - UMBILICAL HERNIA WITHOUT OBSTRUCTION OR GANGRENE Qualifiers: Obstruction and gangrene presence: without obstruction or gangrene Qualified Code(s): K42.9 - Umbilical hernia without obstruction or gangrene
[2017-09-11] MEDS: HEPARIN NA (PORCINE) 5,000 UNITS/ML 1ML VIAL SQ SCH ×2 (12:43→21:18)
[2017-09-11] MEDS: CEFTRIAXONE 1 G/50 ML PREMIX 50 ML IVPB SCH (12:47)
--- NOTE | 2017-09-11 13:27 | PN ---
Progress Note (short form) - Note Progress Note: Chief Complaint: Events noted, notes reviewed, complaining of persistent abdominal discomfort, denies any chest pain or dyspnea History of Present Illness: Seen and examined on telemetry. Events noted, notes reviewed, complaining of persistent abdominal discomfort, denies any chest pain or dyspnea Labile HTN noted Post re-op for incarcerated umbilical hernia, extensive lysis of adhesions, small bowel resection, open repair of umbilical hernia - Current Medication List Current Medications Acetaminophen (Ofirmev Injection -) 1,000 mg IVPB Q6H PRN PRN Reason: PAIN OR FEVER Last Admin: 09/11/17 09:35 Dose: 1,000 mg Albuterol Sulfate (Ventolin 0.083% Nebulizer Soln -) 1 amp NEB RQID [facility] Last Admin: 09/11/17 11:32 Dose: Not Given Amlodipine Besylate (Norvasc -) 5 mg PO DAILY [facility] Last Admin: 09/11/17 10:18 Dose: Not Given Aspirin (Ecotrin -) 81 mg PO DAILY [facility] Last Admin: 09/11/17 10:18 Dose: Not Given Budesonide/Formoterol Fumarate (Symbicort 160/4.5mcg -) 1 puff IH BID [facility] Last Admin: 09/10/17 22:56 Dose: 1 puff Enalaprilat (Vasotec Injection -) 1.25 mg IVPB Q6H-IV [facility] Last Admin: 09/11/17 09:34 Dose: 1.25 mg Finasteride (Proscar -) 5 mg PO DAILY [facility] Heparin Sodium (Porcine) (Heparin -) 5,000 unit SQ BID [facility] Last Admin: 09/11/17 12:43 Dose: 5,000 unit Hydromorphone HCl (Dilaudid Successfactors Consultant -) 6 mg [place] BI CONSULTANT [employer] BI CONSULTANT MARK PRN Reason: Protocol Stop: 09/17/17 17:09 Last Admin: 09/11/17 04:25 Dose: 6 mg IV Flush (Picc Line Flush) 8 ml IVPUSH PRN PRN PRN Reason: Protocol Last Admin: 09/11/17 01:31 Dose: 8 ml Dextrose/Sodium Chloride (D5-1/2ns+40 Meq Kcl -) 40 meq in 1,000 mls @ 83 mls/ hr IV ASDIR [facility] Last Admin: 09/11/17 00:45 Dose: Not Given AA 2.75 %/CALCIUM/LYTES/D7.5W (Clinimix 2.75%-7.5% Solution) 1,000 mls @ 84 mls /hr IVPB Q12H [facility] Last Admin: 09/11/17 11:30 Dose: 84 mls/hr Metronidazole (Flagyl 500mg Premixed Ivpb -) 500 mg in 100 mls @ 100 mls/hr IVPB Q8H-IV [facility] Last Admin: 09/11/17 12:47 Dose: 100 mls/hr CEFTRIAXONE 1 G/50 ML PREMIX (Ceftriaxone 1 Gm-D5w Bag) 50 mls @ 100 mls/hr IVPB DAILY [facility] Last Admin: 09/11/17 12:47 Dose: 100 mls/hr Insulin Aspart (Novolog Vial Sliding Scale -) 1 vial SQ Q4HPO [facility] PRN Reason: Protocol Last Admin: 09/11/17 10:10 Dose: 8 units Insulin Detemir (Levemir Vial) 24 units SQ [facility] Last Admin: 09/10/17 22:55 Dose: 24 units Metoprolol Tartrate (Lopressor Injection -) 5 mg IVPUSH Q4H PRN PRN Reason: HYPERTENSION Last Admin: 09/11/17 12:51 Dose: 5 mg Montelukast Sodium (Singulair -) 10 mg PO [facility] Last Admin: 09/10/17 23:05 Dose: Not Given Ondansetron HCl (Zofran Injection) 4 mg IVPUSH Q6H PRN PRN Reason: NAUSEA AND/OR VOMITING Last Admin: 09/11/17 01:42 Dose: 4 mg Pancrelipase (Creon Dr 36,000 Units Capsule) 1 cap PO TIDCM [facility] Last Admin: 09/11/17 12:16 Dose: Not Given Pantoprazole Sodium (Protonix Iv) 40 mg IVPUSH DAILY [facility] Last Admin: 09/11/17 10:10 Dose: 40 mg Tamsulosin HCl (Flomax -) 0.4 mg PO DAILY@0830 [facility] Last Admin: 09/11/17 08:17 Dose: Not Given Tiotropium [place] (Spiriva -) 1 puff IH DAILY [facility] Review of Systems Cardiovascular: As noted above Respiratory: denies: denies: Cough or Sputum Production Gastrointestinal: denies: Nausea, Vomiting, Diarrhea, Constipation or Abdominal Discomfort Musculoskeletal: No Symptoms Reported Endocrine: No Symptoms Reported - Objective Vital Signs: Last Vital Signs Temp Pulse Resp BP Pulse Ox 100.6 F H 115 H 16 153/96 100 09/11/17 06:00 09/11/17 12:51 09/11/17 12:25 09/11/17 12:51 09/10/17 21:00 Intake & Output 09/08/17 09/09/17 09/10/17 09/11/17 23:59 23:59 23:59 23:59 Intake Total 2208 4998 2411 1440 Output Total 2600 1800 2850 100 Balance -392 3198 -439 1340 Weight 262 lb 247 lb 248 lb 3.2 oz 246 lb 6.4 oz Constitutional: No Distress, Calm Neck: Supple Negative JVD Cardiovascular: S1 S2 Regular Rate and Rhythm Respiratory: Diminished Breath Sounds at the Bases Gastrointestinal: Hypo-active Bowel Sounds Ext: No Edema Labs: CBC, BMP 09/11/17 06:50 09/11/17 06:50 Hepatic Panel Total Bilirubin 0.8 mg/dL (0.2-1.0) 09/11/17 06:50 AST 60 U/L (15-37) H 09/11/17 06:50 ALT 93 U/L (12-78) H D 09/11/17 06:50 Alkaline Phosphatase 108 U/L (45-117) 09/11/17 06:50 Albumin 2.4 g/dl (3.4-5.0) L 09/11/17 06:50 Assessment/Plan ASSESSMENT: 1. Post umbilical hernia repair post re-op 2. History of chronic pancreatitis 3. Chronic atypical chest pain syndrome 4. CAD post OK, post PCI (stents), angina pectoris 5. Diastolic LV dysfunction with chronic class 0-I NYHA classification LV failure, compensated/euvolemic 6. HTN/HCVD 7. DM 8. Hyperlipidemia 9. OSAS 10. COPD/Asthma 11. Acute on CKD PLAN: 1. Continue IV Lopressor, till PO intake 2. Continue IV Vasotec, till PO intake 3. Resume ASA +/- Plavix once PO intake 4. Resume oral therapies including Norvasc, Altace, Crestor and Zetia once oral intake is resumed 5. Pain management as per the primary team Judy Ovalles MD
--- NOTE | 2017-09-11 14:56 | PN ---
Progress Note, Physician Chief Complaint: Pneumonia, Hematuria, Umbilical hernia History of Present Illness: doesn't feel well NGT NPO IVF PICC RUE on Clinimix CT abd yesterday showed incarcerated hernia hypokalemia resolved seen by Renal Plan to return to OR today at bedside - Current Medication List Current Medications: Active Medications Acetaminophen (Ofirmev Injection -) 1,000 mg IVPB Q6H PRN PRN Reason: PAIN OR FEVER Last Admin: 09/11/17 09:35 Dose: 1,000 mg Albuterol Sulfate (Ventolin 0.083% Nebulizer Soln -) 1 amp NEB RQID [facility] Last Admin: 09/11/17 11:32 Dose: Not Given Aspirin (Ecotrin -) 81 mg PO DAILY [facility] Last Admin: 09/11/17 10:18 Dose: Not Given Budesonide/Formoterol Fumarate (Symbicort 160/4.5mcg -) 1 puff IH BID [facility] Last Admin: 09/10/17 22:56 Dose: 1 puff Enalaprilat (Vasotec Injection -) 2.5 mg IVPB Q6H-IV MARK Finasteride (Proscar -) 5 mg PO DAILY [facility] Heparin Sodium (Porcine) (Heparin -) 5,000 unit SQ BID [facility] Last Admin: 09/11/17 12:43 Dose: 5,000 unit Hydromorphone HCl (Dilaudid [place] Press Feeder -) 6 mg POWDER EXPERT POWDER EXPERT MARK PRN Reason: Protocol Stop: 09/17/17 17:09 Last Admin: 09/11/17 04:25 Dose: 6 mg IV Flush (Picc Line Flush) 8 ml IVPUSH PRN PRN PRN Reason: Protocol Last Admin: 09/11/17 01:31 Dose: 8 ml Dextrose/Sodium Chloride (D5-1/2ns+40 Meq Kcl -) 40 meq in 1,000 mls @ 83 mls/ hr IV ASDIR [facility] Last Admin: 09/11/17 00:45 Dose: Not Given AA 2.75 %/CALCIUM/LYTES/D7.5W (Clinimix 2.75%-7.5% Solution) 1,000 mls @ 84 mls /hr IVPB Q12H [facility] Last Admin: 09/11/17 11:30 Dose: 84 mls/hr Metronidazole (Flagyl 500mg Premixed Ivpb -) 500 mg in 100 mls @ 100 mls/hr IVPB Q8H-IV [facility] Last Admin: 09/11/17 12:47 Dose: 100 mls/hr CEFTRIAXONE 1 G/50 ML PREMIX (Ceftriaxone 1 Gm-D5w Bag) 50 mls @ 100 mls/hr IVPB DAILY [facility] Last Admin: 09/11/17 12:47 Dose: 100 mls/hr Insulin Aspart (Novolog Vial Sliding Scale -) 1 vial SQ Q4HPO [facility] PRN Reason: Protocol Last Admin: 09/11/17 14:52 Dose: 6 units Insulin Detemir (Levemir Vial) 24 units SQ [facility] Last Admin: 09/10/17 22:55 Dose: 24 units Metoprolol Tartrate (Lopressor Injection -) 5 mg IVPUSH Q4H PRN PRN Reason: HYPERTENSION Last Admin: 09/11/17 12:51 Dose: 5 mg Montelukast Sodium (Singulair -) 10 mg PO [facility] Last Admin: 09/10/17 23:05 Dose: Not Given Ondansetron HCl (Zofran Injection) 4 mg IVPUSH Q6H PRN PRN Reason: NAUSEA AND/OR VOMITING Last Admin: 09/11/17 01:42 Dose: 4 mg Pancrelipase (Creon Dr 36,000 Units Capsule) 1 cap PO TIDCM [facility] Last Admin: 09/11/17 12:16 Dose: Not Given Pantoprazole Sodium (Protonix Iv) 40 mg IVPUSH DAILY [facility] Last Admin: 09/11/17 10:10 Dose: 40 mg Tamsulosin HCl (Flomax -) 0.4 mg PO DAILY@0830 [facility] Last Admin: 09/11/17 08:17 Dose: Not Given Tiotropium [place] (Spiriva -) 1 puff IH DAILY [facility] - Objective Vital Signs: Vital Signs Temperature 100.1 F H 09/11/17 10:00 Pulse Rate 107 H 09/11/17 13:49 Respiratory Rate 18 09/11/17 13:49 Blood Pressure 153/94 09/11/17 13:49 O2 Sat by Pulse Oximetry (%) 100 09/11/17 09:00 Constitutional: Yes: Well Nourished, No Distress, Calm Cardiovascular: Yes: Regular Rate and Rhythm Respiratory: Yes: Regular Gastrointestinal: Yes: Soft, Tenderness Musculoskeletal: Yes: Back Pain Extremities: Yes: WNL Edema: No Peripheral Pulses WNL: Yes Neurological: Yes: Alert, Oriented Psychiatric: Yes: Alert, Oriented Labs: CBC, BMP 09/11/17 06:50 09/11/17 06:50 INR, PTT INR 1.22 (0.82-1.09) H 08/21/17 06:55 Problem List - Problems (1) Umbilical hernia Assessment/Plan: -seen by GI surgery -s/p hernia repair Code(s): K42.9 - UMBILICAL HERNIA WITHOUT OBSTRUCTION OR GANGRENE Qualifiers: Obstruction and gangrene presence: without obstruction or gangrene Qualified Code(s): K42.9 - Umbilical hernia without obstruction or gangrene (2) ASHD (arteriosclerotic heart disease) Assessment/Plan: -seen by Cardiology -Plavix on hold -Start plavix in AM if H/H stable Code(s): I25.10 - ATHSCL HEART DISEASE OF [place] CORONARY ARTERY W/O ANG PCTRS (3) SBO (small bowel obstruction) Assessment/Plan: -NGT -CT abdomen with contrast reviewed -Acetaminophen and Ibuprofen -POWDER EXPERT dilaudid Code(s): K56.609 - UNSP INTESTNL OBST, UNSP TO PARTIAL VERSUS COMPLETE OBST (4) Hypertension Assessment/Plan: Metoprolol 5 mg IVP if SBP >150 mm Hg -Enalipril IV added by Nephrology Code(s): I10 - ESSENTIAL (PRIMARY) HYPERTENSION Qualifiers: Hypertension type: essential hypertension Qualified Code(s): I10 - Essential (primary) hypertension (5) Hypokalemia Assessment/Plan: -normalized -Clinimax -treat if hypokalemic -repeat labs in AM -renal consult appreciated Code(s): E87.6 - HYPOKALEMIA (6) Diabetes mellitus, insulin dependent (IDDM), uncontrolled Assessment/Plan: -BGM -Clinimix -levemir Code(s): E10.65 - TYPE 1 DIABETES MELLITUS WITH HYPERGLYCEMIA Assessment/Plan see problem list right UE PICC line spoke to patient and in depth Zofran for nausea POWDER EXPERT post surgery
--- NOTE | 2017-09-11 16:16 | PN ---
Progress Note (short form) - Note Progress Note: NEUROSURGERY FOLLOWUP Patient seen and examined. Patient continues to undergo treatment for active GI concerns. We reviewed his chronic pain syndrome and plan to discuss potential treatment strategies and options once he recovers from these acute issues. All questions answered. Patient given the contact information he requested earlier in the week.
[2017-09-11] MEDS: ENALAPRILAT DIHYDRATE 2.5 MG/2 ML VIAL IVPB SCH ×2 (16:38→21:18)
--- NOTE | 2017-09-11 16:48 | PN ---
Progress Note, Physician Chief Complaint: day #1 s/p umbilical hernia repair and SB resection under spinal - Current Medication List Current Medications: Active Medications Acetaminophen (Ofirmev Injection -) 1,000 mg IVPB Q6H PRN PRN Reason: PAIN OR FEVER Last Admin: 09/11/17 15:32 Dose: 1,000 mg Albuterol Sulfate (Ventolin 0.083% Nebulizer Soln -) 1 amp NEB RQID [facility] Last Admin: 09/11/17 11:32 Dose: Not Given Aspirin (Ecotrin -) 81 mg PO DAILY [facility] Last Admin: 09/11/17 10:18 Dose: Not Given Budesonide/Formoterol Fumarate (Symbicort 160/4.5mcg -) 1 puff IH BID [facility] Last Admin: 09/11/17 10:16 Dose: 1 puff Enalaprilat (Vasotec Injection -) 2.5 mg IVPB Q6H-IV [facility] Finasteride (Proscar -) 5 mg PO DAILY [facility] Heparin Sodium (Porcine) (Heparin -) 5,000 unit SQ BID [facility] Last Admin: 09/11/17 12:43 Dose: 5,000 unit Hydromorphone HCl (Dilaudid Clean Up Supervisor -) 6 mg ANIMAL CONTROL SPECIALIST ANIMAL CONTROL SPECIALIST MARK PRN Reason: Protocol Stop: 09/17/17 17:09 Last Admin: 09/11/17 04:25 Dose: 6 mg IV Flush (Picc Line Flush) 8 ml IVPUSH PRN PRN PRN Reason: Protocol Last Admin: 09/11/17 01:31 Dose: 8 ml Dextrose/Sodium Chloride (D5-1/2ns+40 Meq Kcl -) 40 meq in 1,000 mls @ 83 mls/ hr IV ASDIR [facility] Last Admin: 09/11/17 00:45 Dose: Not Given AA 2.75 %/CALCIUM/LYTES/D7.5W (Clinimix 2.75%-7.5% Solution) 1,000 mls @ 84 mls /hr IVPB Q12H [facility] Last Admin: 09/11/17 11:30 Dose: 84 mls/hr Metronidazole (Flagyl 500mg Premixed Ivpb -) 500 mg in 100 mls @ 100 mls/hr IVPB Q8H-IV [facility] Last Admin: 09/11/17 12:47 Dose: 100 mls/hr CEFTRIAXONE 1 G/50 ML PREMIX (Ceftriaxone 1 Gm-D5w Bag) 50 mls @ 100 mls/hr IVPB DAILY [facility] Last Admin: 09/11/17 12:47 Dose: 100 mls/hr Insulin Aspart (Novolog Vial Sliding Scale -) 1 vial SQ Q4HPO [facility] PRN Reason: Protocol Last Admin: 09/11/17 14:52 Dose: 6 units Insulin Detemir (Levemir Vial) 24 units SQ [facility] Last Admin: 09/10/17 22:55 Dose: 24 units Metoprolol Tartrate (Lopressor Injection -) 5 mg IVPUSH Q4H PRN PRN Reason: HYPERTENSION Last Admin: 09/11/17 12:51 Dose: 5 mg Montelukast Sodium (Singulair -) 10 mg PO [facility] Last Admin: 09/10/17 23:05 Dose: Not Given Ondansetron HCl (Zofran Injection) 4 mg IVPUSH Q6H PRN PRN Reason: NAUSEA AND/OR VOMITING Last Admin: 09/11/17 01:42 Dose: 4 mg Pancrelipase (Creon Dr 36,000 Units Capsule) 1 cap PO TIDCM [facility] Last Admin: 09/11/17 12:16 Dose: Not Given Pantoprazole Sodium (Protonix Iv) 40 mg IVPUSH DAILY [facility] Last Admin: 09/11/17 10:10 Dose: 40 mg Tamsulosin HCl (Flomax -) 0.4 mg PO DAILY@0830 [facility] Last Admin: 09/11/17 08:17 Dose: Not Given Tiotropium [place] (Spiriva -) 1 puff IH DAILY [facility] Last Admin: 09/11/17 10:16 Dose: 1 inh - Objective Vital Signs: Vital Signs Temperature 100.1 F H 09/11/17 10:00 Pulse Rate 107 H 09/11/17 13:49 Respiratory Rate 18 09/11/17 13:49 Blood Pressure 153/94 09/11/17 13:49 O2 Sat by Pulse Oximetry (%) 100 09/11/17 09:00 Labs: CBC, BMP 09/11/17 06:50 09/11/17 06:50 INR, PTT INR 1.22 (0.82-1.09) H 08/21/17 06:55 Assessment/Plan Doing well - on ANIMAL CONTROL SPECIALIST for pain control. No apparent anesthetic issues-will continue ANIMAL CONTROL SPECIALIST
--- NOTE | 2017-09-11 18:10 | PN ---
Progress Note (short form) - Note Progress Note: CAD s/p stents and CABG, Chronic Pancreatitis, Hypertension, HLD s/p open resection of incarcerated umbilical hernia with ileus and prolonged NPO status. hypokalemia hypophosphatemia Active Medications Acetaminophen (Ofirmev Injection -) 1,000 mg IVPB Q6H PRN PRN Reason: PAIN OR FEVER Last Admin: 09/11/17 15:32 Dose: 1,000 mg Albuterol Sulfate (Ventolin 0.083% Nebulizer Soln -) 1 amp NEB RQID [facility] Last Admin: 09/11/17 16:54 Dose: Not Given Aspirin (Ecotrin -) 81 mg PO DAILY [facility] Last Admin: 09/11/17 10:18 Dose: Not Given Budesonide/Formoterol Fumarate (Symbicort 160/4.5mcg -) 1 puff IH BID [facility] Last Admin: 09/11/17 10:16 Dose: 1 puff Enalaprilat (Vasotec Injection -) 2.5 mg IVPB Q6H-IV [facility] Last Admin: 09/11/17 16:38 Dose: 2.5 mg Finasteride (Proscar -) 5 mg PO DAILY [facility] Heparin Sodium (Porcine) (Heparin -) 5,000 unit SQ BID [facility] Last Admin: 09/11/17 12:43 Dose: 5,000 unit Hydromorphone HCl (Dilaudid Fish Frog Or Oyster Farmer -) 6 mg CLIENT SERVICES SPECIALIST CLIENT SERVICES SPECIALIST MARK PRN Reason: Protocol Stop: 09/17/17 17:09 Last Admin: 09/11/17 04:25 Dose: 6 mg IV Flush (Picc Line Flush) 8 ml IVPUSH PRN PRN PRN Reason: Protocol Last Admin: 09/11/17 01:31 Dose: 8 ml Dextrose/Sodium Chloride (D5-1/2ns+40 Meq Kcl -) 40 meq in 1,000 mls @ 83 mls/ hr IV ASDIR [facility] Last Admin: 09/11/17 00:45 Dose: Not Given AA 2.75 %/CALCIUM/LYTES/D7.5W (Clinimix 2.75%-7.5% Solution) 1,000 mls @ 84 mls /hr IVPB Q12H [facility] Last Admin: 09/11/17 11:30 Dose: 84 mls/hr Metronidazole (Flagyl 500mg Premixed Ivpb -) 500 mg in 100 mls @ 100 mls/hr IVPB Q8H-IV [facility] Last Admin: 09/11/17 17:47 Dose: 100 mls/hr CEFTRIAXONE 1 G/50 ML PREMIX (Ceftriaxone 1 Gm-D5w Bag) 50 mls @ 100 mls/hr IVPB DAILY [facility] Last Admin: 09/11/17 12:47 Dose: 100 mls/hr Insulin Aspart (Novolog Vial Sliding Scale -) 1 vial SQ Q4HPO [facility] PRN Reason: Protocol Last Admin: 09/11/17 17:37 Dose: 8 units Insulin Detemir (Levemir Vial) 24 units SQ [facility] Last Admin: 09/10/17 22:55 Dose: 24 units Metoprolol Tartrate (Lopressor Injection -) 5 mg IVPUSH Q4H PRN PRN Reason: HYPERTENSION Last Admin: 09/11/17 12:51 Dose: 5 mg Montelukast Sodium (Singulair -) 10 mg PO HS [facility] Last Admin: 09/10/17 23:05 Dose: Not Given Ondansetron HCl (Zofran Injection) 4 mg IVPUSH Q6H PRN PRN Reason: NAUSEA AND/OR VOMITING Last Admin: 09/11/17 17:29 Dose: 4 mg Pancrelipase (Creon Dr 36,000 Units Capsule) 1 cap PO TIDCM [facility] Last Admin: 09/11/17 12:16 Dose: Not Given Pantoprazole Sodium (Protonix Iv) 40 mg IVPUSH DAILY [facility] Last Admin: 09/11/17 10:10 Dose: 40 mg Tamsulosin HCl (Flomax -) 0.4 mg PO DAILY@0830 [facility] Last Admin: 09/11/17 08:17 Dose: Not Given Tiotropium [place] (Spiriva -) 1 puff IH DAILY [facility] Last Admin: 09/11/17 10:16 Dose: 1 inh Last Vital Signs Temp Pulse Resp BP Pulse Ox 100.1 F H 110 H 16 140/78 100 09/11/17 10:00 09/11/17 16:25 09/11/17 16:25 09/11/17 16:25 09/11/17 09:00 CBC, BMP 09/11/17 06:50 09/11/17 06:50 plan - continue same rx
[2017-09-11] MEDS: MONTELUKAST NA 10 MG TABLET PO SCH (21:17)
[2017-09-11] MEDS: INSULIN DETEMIR 100 UNITS/ML MDV SQ SCH (21:19)
[2017-09-11] MEDS ORDERED: INSULIN (NOVOLOG) ASPART 100 UNITS/ML 10ML VIAL ONE (21:32)
[2017-09-11] MEDS ORDERED: PT OWN MED DRAWER 7, Y5N ONE (22:28)
[2017-09-12] MEDS: ONDANSETRON 4 MG/2 ML VIAL IVPUSH PRN ×4 (00:07→23:27)
[2017-09-12] MEDS: AA 2.75 %/CALCIUM/LYTES/D7.5W 1,000 ML IVPB SCH ×2 (00:07→13:19)
[2017-09-12] MEDS: INSULIN SLIDING SCALE (NOVOLOG) 1 VIAL SQ SCH ×6 (01:55→22:15)
[2017-09-12] MEDS: ENALAPRILAT DIHYDRATE 2.5 MG/2 ML VIAL IVPB SCH ×4 (03:51→22:14)
[2017-09-12] MEDS: ACETAMINOPHEN 1000 MG/100 ML VIAL (NON FORMULARY) IVPB PRN ×2 (03:51→22:17)
[2017-09-12] MEDS: ALBUTEROL SO4 0.083% IH SOL 2.5 MG/3 ML VIAL.NEB. NEB SCH ×4 (07:49→20:00)
[2017-09-12] MEDS: LIPASE/PROTEASE/AMYLASE 36,000 UNIT CAPSULE PO SCH ×3 (08:20→18:31)
[2017-09-12] MEDS: TAMSULOSIN HCL 0.4 MG CAP.ER.24H (FP) PO SCH (08:21)
[2017-09-12 08:25] LABS: HEMATOCRIT 34.2 % (35.4-49); HEMOGLOBIN 11.2 GM/dL (11.7-16.9); MCH 26.4 pg (25.7-33.7); MCHC 32.7 g/dl (32.0-35.9); MEAN CELL VOLUME 80.8 fl (80-96); MEAN PLT VOLUME 7.8 fl (7.5-11.1); PLATELET COUNT 302 K/MM3 (134-434); RBC 4.24 M/mm3 (4.00-5.60)
[2017-09-12 08:53] LABS: ANION GAP 13 (8-16); BLOOD UREA NITROGEN 13 mg/dL (7-18); CALCIUM 8.6 mg/dL (8.5-10.1); CHLORIDE 101 mmol/L (98-107); CO2 24 mmol/L (21-32); CREATININE 1.2 mg/dL (0.7-1.3); GLUCOSE,RANDOM 276 mg/dL (74-106); POTASSIUM 4.1 mmol/L (3.5-5.1); SODIUM 138 mmol/L (136-145)
[2017-09-12] MEDS ORDERED: PT OWN MED DRAWER 7, Y5N ONE ×3 (09:34→20:38)
[2017-09-12] MEDS: HEPARIN NA (PORCINE) 5,000 UNITS/ML 1ML VIAL SQ SCH ×2 (09:49→22:14)
[2017-09-12] MEDS: PANTOPRAZOLE SODIUM 40 MG VIAL IVPUSH SCH (09:56)
[2017-09-12] MEDS: CEFTRIAXONE 1 G/50 ML PREMIX 50 ML IVPB SCH (09:57)
[2017-09-12] MEDS: TIOTROPIUM BROMIDE 18 MCG/INH (DEVICE W/ 5 CAPSULES) IH SCH (10:19)
[2017-09-12] MEDS: BUDESONIDE/FORMETEROL FUMARATE 160/4.5 mcg INHALER IH SCH ×2 (10:20→22:17)
[2017-09-12 10:27] LABS: PLATELET ESTIMATE NORMAL
[2017-09-12] MEDS ORDERED: INSULIN (NOVOLOG) ASPART 100 UNITS/ML 10ML VIAL ONE ×3 (10:56→20:37)
[2017-09-12] MEDS: FINASTERIDE 5 MG TABLET (FP) PO SCH (11:21)
[2017-09-12] MEDS: ASPIRIN COATED 81 MG TABLET.EC PO SCH (11:21)
--- NOTE | 2017-09-12 12:06 | PN ---
Progress Note (short form) - Note Progress Note: Chief Complaint: Events noted, notes reviewed, complaining of persistent abdominal discomfort, denies any chest pain or dyspnea History of Present Illness: Seen and examined on telemetry. Events noted, notes reviewed, complaining of persistent abdominal discomfort, denies any chest pain or dyspnea Post day # 2 re-op for incarcerated umbilical hernia, extensive lysis of adhesions, small bowel resection, open repair of umbilical hernia - Current Medication List Current Medications Albuterol Sulfate (Ventolin 0.083% Nebulizer Soln -) 1 amp NEB RQID [facility] Last Admin: 09/12/17 11:45 Dose: Not Given Aspirin (Ecotrin -) 81 mg PO DAILY [facility] Last Admin: 09/11/17 10:18 Dose: Not Given Budesonide/Formoterol Fumarate (Symbicort 160/4.5mcg -) 1 puff IH BID [facility] Last Admin: 09/11/17 21:17 Dose: 1 puff Enalaprilat (Vasotec Injection -) 2.5 mg IVPB Q6H-IV [facility] Last Admin: 09/12/17 10:41 Dose: 2.5 mg Finasteride (Proscar -) 5 mg PO DAILY [facility] Last Admin: 09/11/17 11:10 Dose: Not Given Heparin Sodium (Porcine) (Heparin -) 5,000 unit SQ BID [facility] Last Admin: 09/12/17 09:49 Dose: 5,000 unit Hydromorphone HCl (Dilaudid Edge Brusher -) 6 mg ACCOUNTS RECEIVABLE PROCESSOR ACCOUNTS RECEIVABLE PROCESSOR MARK PRN Reason: Protocol Stop: 09/17/17 17:09 Last Admin: 09/11/17 04:25 Dose: 6 mg IV Flush (Picc Line Flush) 8 ml IVPUSH PRN PRN PRN Reason: Protocol Last Admin: 09/11/17 01:31 Dose: 8 ml Dextrose/Sodium Chloride (D5-1/2ns+40 Meq Kcl -) 40 meq in 1,000 mls @ 83 mls/ hr IV ASDIR [facility] Last Admin: 09/11/17 00:45 Dose: Not Given AA 2.75 %/CALCIUM/LYTES/D7.5W (Clinimix 2.75%-7.5% Solution) 1,000 mls @ 84 mls /hr IVPB Q12H [facility] Last Admin: 09/12/17 00:07 Dose: 84 mls/hr Metronidazole (Flagyl 500mg Premixed Ivpb -) 500 mg in 100 mls @ 100 mls/hr IVPB Q8H-IV [facility] Last Admin: 09/12/17 09:56 Dose: 100 mls/hr CEFTRIAXONE 1 G/50 ML PREMIX (Ceftriaxone 1 Gm-D5w Bag) 50 mls @ 100 mls/hr IVPB DAILY [facility] Last Admin: 09/12/17 09:57 Dose: 100 mls/hr Insulin Aspart (Novolog Vial Sliding Scale -) 1 vial SQ Q4HPO [facility] PRN Reason: Protocol Last Admin: 09/12/17 11:01 Dose: 6 units Insulin Detemir (Levemir Vial) 24 units SQ [facility] Last Admin: 09/11/17 21:19 Dose: 24 units Metoprolol Tartrate (Lopressor Injection -) 5 mg IVPUSH Q4H PRN PRN Reason: HYPERTENSION Last Admin: 09/11/17 12:51 Dose: 5 mg Montelukast Sodium (Singulair -) 10 mg PO [facility] Last Admin: 09/11/17 21:17 Dose: Not Given Ondansetron HCl (Zofran Injection) 4 mg IVPUSH Q6H PRN PRN Reason: NAUSEA AND/OR VOMITING Last Admin: 09/12/17 09:44 Dose: 4 mg Pancrelipase (Creon Dr 36,000 Units Capsule) 1 cap PO TIDCM [facility] Last Admin: 09/11/17 18:10 Dose: Not Given Pantoprazole Sodium (Protonix Iv) 40 mg IVPUSH DAILY [facility] Last Admin: 09/12/17 09:56 Dose: 40 mg Tamsulosin HCl (Flomax -) 0.4 mg PO DAILY@0830 [facility] Last Admin: 09/11/17 08:17 Dose: Not Given Tiotropium [place] (Spiriva -) 1 puff IH DAILY [facility] Last Admin: 09/11/17 10:16 Dose: 1 inh Review of Systems Cardiovascular: As noted above Respiratory: denies: denies: Cough or Sputum Production Gastrointestinal: denies: Nausea, Vomiting, Diarrhea, Constipation or Abdominal Discomfort Musculoskeletal: No Symptoms Reported Endocrine: No Symptoms Reported - Objective Vital Signs: Last Vital Signs Temp Pulse Resp BP Pulse Ox 99.2 F 110 H 16 161/94 100 09/12/17 06:48 09/12/17 06:48 09/12/17 06:48 09/12/17 04:30 09/11/17 21:00 Intake & Output 09/09/17 09/10/17 09/11/17 09/12/17 23:59 23:59 23:59 23:59 Intake Total 4998 2411 4070 110 Output Total 1800 2850 750 Balance 3198 439 3320 110 Weight 247 lb 248 lb 3.2 oz 246 lb 6.4 oz 241 lb 3.2 oz Constitutional: No Distress, Calm Neck: Supple Negative JVD Cardiovascular: S1 S2 Regular Rate and Rhythm Respiratory: Diminished Breath Sounds at the Bases Gastrointestinal: Hypo-active Bowel Sounds Ext: No Edema Labs: CBC, BMP 09/12/17 07:55 09/12/17 07:55 Assessment/Plan ASSESSMENT: 1. Post umbilical hernia repair post re-op 2. History of chronic pancreatitis 3. Chronic atypical chest pain syndrome, resolved 4. CAD post RI, post PCI (stents), angina pectoris 5. Diastolic LV dysfunction with chronic class 0-I NYHA classification LV failure, compensated/euvolemic 6. HTN/HCVD 7. DM 8. Hyperlipidemia 9. OSAS 10. COPD/Asthma 11. Acute on CKD PLAN: 1. Continue IV Lopressor, till PO intake 2. Continue IV Vasotec, till PO intake 3. Resume ASA +/- Plavix once PO intake 4. Resume oral therapies including Norvasc, Altace, Crestor and Zetia once oral intake 5. Pain management as per the primary team 6. Antibiotics as per the primary team Judy Ovalles MD
--- NOTE | 2017-09-12 12:32 | PN ---
Progress Note (short form) - Note Progress Note: No acute events NG tube in place Pain controlled No flatus/BM Vital Signs Period Temp Pulse Resp BP Sys/Gates Pulse Ox Last 24 Hr 99.2 F-101 F 99-115 16-18 139-161/78-103 100 Abd soft, binder in place CBC, BMP 09/12/17 07:55 09/12/17 07:55 Continue antibiotics OOB/Ambulate/PT BP control Serial CBC Can continue plavix Await flatus Problem List - Problems (1) Umbilical hernia Code(s): K42.9 - UMBILICAL HERNIA WITHOUT OBSTRUCTION OR GANGRENE Qualifiers: Obstruction and gangrene presence: without obstruction or gangrene Qualified Code(s): K42.9 - Umbilical hernia without obstruction or gangrene
--- NOTE | 2017-09-12 13:07 | PN ---
Progress Note, Physician Chief Complaint: Pneumonia, Hematuria, Umbilical hernia History of Present Illness: doesn't feel well NGT NPO IVF PICC RUE on Clinimix CT abd yesterday showed incarcerated hernia hypokalemia resolved seen by Renal fever overnight IV abx leukocytosis at bedside - Current Medication List Current Medications: Active Medications Acetaminophen (Ofirmev Injection -) 1,000 mg IVPB Q6H PRN PRN Reason: FEVER Albuterol Sulfate (Ventolin 0.083% Nebulizer Soln -) 1 amp NEB RQID [facility] Last Admin: 09/12/17 11:45 Dose: Not Given Aspirin (Ecotrin -) 81 mg PO DAILY [facility] Last Admin: 09/11/17 10:18 Dose: Not Given Budesonide/Formoterol Fumarate (Symbicort 160/4.5mcg -) 1 puff IH BID [facility] Last Admin: 09/11/17 21:17 Dose: 1 puff Enalaprilat (Vasotec Injection -) 2.5 mg IVPB Q6H-IV [facility] Last Admin: 09/12/17 10:41 Dose: 2.5 mg Finasteride (Proscar -) 5 mg PO DAILY [facility] Last Admin: 09/11/17 11:10 Dose: Not Given Heparin Sodium (Porcine) (Heparin -) 5,000 unit SQ BID [facility] Last Admin: 09/12/17 09:49 Dose: 5,000 unit Hydromorphone HCl (Dilaudid Hrbp -) 6 mg LONG TERM CARE SOCIAL WORKER LONG TERM CARE SOCIAL WORKER MARK PRN Reason: Protocol Stop: 09/17/17 17:09 Last Admin: 09/11/17 04:25 Dose: 6 mg IV Flush (Picc Line Flush) 8 ml IVPUSH PRN PRN PRN Reason: Protocol Last Admin: 09/11/17 01:31 Dose: 8 ml Dextrose/Sodium Chloride (D5-1/2ns+40 Meq Kcl -) 40 meq in 1,000 mls @ 83 mls/ hr IV ASDIR [facility] Last Admin: 09/11/17 00:45 Dose: Not Given AA 2.75 %/CALCIUM/LYTES/D7.5W (Clinimix 2.75%-7.5% Solution) 1,000 mls @ 84 mls /hr IVPB Q12H [facility] Last Admin: 09/12/17 00:07 Dose: 84 mls/hr Metronidazole (Flagyl 500mg Premixed Ivpb -) 500 mg in 100 mls @ 100 mls/hr IVPB Q8H-IV [facility] Last Admin: 09/12/17 09:56 Dose: 100 mls/hr CEFTRIAXONE 1 G/50 ML PREMIX (Ceftriaxone 1 Gm-D5w Bag) 50 mls @ 100 mls/hr IVPB DAILY [facility] Last Admin: 09/12/17 09:57 Dose: 100 mls/hr Insulin Aspart (Novolog Vial Sliding Scale -) 1 vial SQ Q4HPO [facility] PRN Reason: Protocol Last Admin: 09/12/17 11:01 Dose: 6 units Insulin Detemir (Levemir Vial) 24 units SQ HS [facility] Last Admin: 09/11/17 21:19 Dose: 24 units Metoprolol Tartrate (Lopressor Injection -) 5 mg IVPUSH Q4H PRN PRN Reason: HYPERTENSION Last Admin: 09/11/17 12:51 Dose: 5 mg Montelukast Sodium (Singulair -) 10 mg PO [facility] Last Admin: 09/11/17 21:17 Dose: Not Given Ondansetron HCl (Zofran Injection) 4 mg IVPUSH Q6H PRN PRN Reason: NAUSEA AND/OR VOMITING Last Admin: 09/12/17 09:44 Dose: 4 mg Pancrelipase (Creon Dr 36,000 Units Capsule) 1 cap PO TIDCM [facility] Last Admin: 09/11/17 18:10 Dose: Not Given Pantoprazole Sodium (Protonix Iv) 40 mg IVPUSH DAILY [facility] Last Admin: 09/12/17 09:56 Dose: 40 mg Tamsulosin HCl (Flomax -) 0.4 mg PO DAILY@0830 [facility] Last Admin: 09/11/17 08:17 Dose: Not Given Tiotropium Keeler (Spiriva -) 1 puff IH DAILY [facility] Last Admin: 09/11/17 10:16 Dose: 1 inh - Objective Vital Signs: Vital Signs Temperature 99.2 F 09/12/17 06:48 Pulse Rate 110 H 09/12/17 06:48 Respiratory Rate 16 09/12/17 06:48 Blood Pressure 161/94 09/12/17 04:30 O2 Sat by Pulse Oximetry (%) 100 09/11/17 21:00 Constitutional: Yes: Well Nourished, Calm, Mild Distress Cardiovascular: Yes: Regular Rate and Rhythm Respiratory: Yes: Regular Gastrointestinal: Yes: Normal Bowel Sounds, Hypoactive Bowel Sounds, Tenderness Musculoskeletal: Yes: Muscle Weakness Extremities: Yes: WNL Edema: No Peripheral Pulses WNL: Yes Neurological: Yes: Alert, Oriented Psychiatric: Yes: Alert, Oriented Labs: CBC, BMP 09/12/17 07:55 09/12/17 07:55 INR, PTT INR 1.22 (0.82-1.09) H 08/21/17 06:55 Problem List - Problems (1) Umbilical hernia Assessment/Plan: -seen by GI surgery -s/p hernia repair Code(s): K42.9 - UMBILICAL HERNIA WITHOUT OBSTRUCTION OR GANGRENE Qualifiers: Obstruction and gangrene presence: without obstruction or gangrene Qualified Code(s): K42.9 - Umbilical hernia without obstruction or gangrene (2) ASHD (arteriosclerotic heart disease) Assessment/Plan: -seen by Cardiology -Start plavix once PO intake is initiated Code(s): I25.10 - ATHSCL HEART DISEASE OF [place] CORONARY ARTERY W/O ANG PCTRS (3) SBO (small bowel obstruction) Assessment/Plan: -NGT -CT abdomen with contrast reviewed -Acetaminophen and Ibuprofen -LONG TERM CARE SOCIAL WORKER dilaudid Code(s): K56.609 - UNSP INTESTNL OBST, UNSP TO PARTIAL VERSUS COMPLETE OBST (4) Hypertension Assessment/Plan: Metoprolol 5 mg IVP if SBP >150 mm Hg -Enalipril IV added by Nephrology Code(s): I10 - ESSENTIAL (PRIMARY) HYPERTENSION Qualifiers: Hypertension type: essential hypertension Qualified Code(s): I10 - Essential (primary) hypertension (5) Hypokalemia Assessment/Plan: -normalized -Clinimax -treat if hypokalemic -repeat labs in AM -renal consult appreciated Code(s): E87.6 - HYPOKALEMIA (6) Diabetes mellitus, insulin dependent (IDDM), uncontrolled Assessment/Plan: -BGM -Clinimix -levemir Code(s): E10.65 - TYPE 1 DIABETES MELLITUS WITH HYPERGLYCEMIA (7) Leukocytosis Assessment/Plan: -seen by ID -IV abx -Tylenol for feve over 100.0F -repeat cultures -monitor labs in AM Code(s): D72.829 - ELEVATED WHITE BLOOD CELL COUNT, UNSPECIFIED Assessment/Plan see problem list right UE PICC line spoke to patient and in depth Zofran for nausea LONG TERM CARE SOCIAL WORKER
[2017-09-12] MEDS: HYDROmorphone *PCA* 6MG/30ML DISP.SYRIN PCA SCH (13:18)
--- NOTE | 2017-09-12 15:02 | PN ---
Progress Note, Physician History of Present Illness: POD# 2 exploratory lap, ZACHERY, SB resection Febrile past 48hr WBC 21K C/O generalized weakness + post op abdo discomfort NGT in place No BM PICC R UE - Current Medication List Current Medications: Active Medications Acetaminophen (Ofirmev Injection -) 1,000 mg IVPB Q6H PRN PRN Reason: FEVER Albuterol Sulfate (Ventolin 0.083% Nebulizer Soln -) 1 amp NEB RQID [facility] Last Admin: 09/12/17 11:45 Dose: Not Given Aspirin (Ecotrin -) 81 mg PO DAILY [facility] Last Admin: 09/11/17 10:18 Dose: Not Given Budesonide/Formoterol Fumarate (Symbicort 160/4.5mcg -) 1 puff IH BID [facility] Last Admin: 09/12/17 10:20 Dose: 1 puff Enalaprilat (Vasotec Injection -) 2.5 mg IVPB Q6H-IV [facility] Last Admin: 09/12/17 10:41 Dose: 2.5 mg Finasteride (Proscar -) 5 mg PO DAILY [facility] Last Admin: 09/11/17 11:10 Dose: Not Given Heparin Sodium (Porcine) (Heparin -) 5,000 unit SQ BID [facility] Last Admin: 09/12/17 09:49 Dose: 5,000 unit Hydromorphone HCl (Dilaudid Wire Strander -) 6 mg ELECTRIC DOLLY OPERATOR ELECTRIC DOLLY OPERATOR MARK PRN Reason: Protocol Stop: 09/17/17 17:09 Last Admin: 09/12/17 13:18 Dose: 6 mg IV Flush (Picc Line Flush) 8 ml IVPUSH PRN PRN PRN Reason: Protocol Last Admin: 09/11/17 01:31 Dose: 8 ml Dextrose/Sodium Chloride (D5-1/2ns+40 Meq Kcl -) 40 meq in 1,000 mls @ 83 mls/ hr IV ASDIR [facility] Last Admin: 09/11/17 00:45 Dose: Not Given AA 2.75 %/CALCIUM/LYTES/D7.5W (Clinimix 2.75%-7.5% Solution) 1,000 mls @ 84 mls /hr IVPB Q12H [facility] Last Admin: 09/12/17 13:19 Dose: 84 mls/hr Metronidazole (Flagyl 500mg Premixed Ivpb -) 500 mg in 100 mls @ 100 mls/hr IVPB Q8H-IV [facility] Last Admin: 09/12/17 09:56 Dose: 100 mls/hr Insulin Aspart (Novolog Vial Sliding Scale -) 1 vial SQ Q4HPO [facility] PRN Reason: Protocol Last Admin: 09/12/17 11:01 Dose: 6 units Insulin Detemir (Levemir Vial) 24 units SQ [facility] Last Admin: 09/11/17 21:19 Dose: 24 units Metoprolol Tartrate (Lopressor Injection -) 5 mg IVPUSH Q4H PRN PRN Reason: HYPERTENSION Last Admin: 09/11/17 12:51 Dose: 5 mg Montelukast Sodium (Singulair -) 10 mg PO [facility] Last Admin: 09/11/17 21:17 Dose: Not Given Ondansetron HCl (Zofran Injection) 4 mg IVPUSH Q6H PRN PRN Reason: NAUSEA AND/OR VOMITING Last Admin: 09/12/17 09:44 Dose: 4 mg Pancrelipase (Creon Dr 36,000 Units Capsule) 1 cap PO TIDCM [facility] Last Admin: 09/11/17 18:10 Dose: Not Given Pantoprazole Sodium (Protonix Iv) 40 mg IVPUSH DAILY [facility] Last Admin: 09/12/17 09:56 Dose: 40 mg Tamsulosin HCl (Flomax -) 0.4 mg PO DAILY@0830 [facility] Last Admin: 09/11/17 08:17 Dose: Not Given Tiotropium Pepperell (Spiriva -) 1 puff IH DAILY [facility] Last Admin: 09/12/17 10:19 Dose: 1 inh - Objective Vital Signs: Vital Signs Temperature 99.1 F 09/12/17 14:09 Pulse Rate 88 09/12/17 14:09 Respiratory Rate 18 09/12/17 14:09 Blood Pressure 146/86 09/12/17 14:09 O2 Sat by Pulse Oximetry (%) 100 09/12/17 09:00 Constitutional: Yes: No Distress, Other (weak appearing) HENT: Yes: Other (NGT in place) Cardiovascular: Yes: Regular Rate and Rhythm, S1, S2 Respiratory: Yes: Diminished Gastrointestinal: Yes: Normal Bowel Sounds, Soft, Tenderness Extremities: Yes: Other (PICC R UE no erythema) Edema: Yes Labs: CBC, BMP 09/12/17 07:55 09/12/17 07:55 INR, PTT INR 1.22 (0.82-1.09) H 08/21/17 06:55 Assessment/Plan POD #2 exploratory lap, ZACHERY, SB resection Fever/ leukocytosis Repeat cultures Empiric zosyn/ vancomycin
[2017-09-12] MEDS: VANCOMYCIN 1,000 MG in DEXTROSE 5%-WATER - 250 ML IVPB SCH (16:28)
[2017-09-12] MEDS: PIPERACILLIN/TAZOB 4.5 GM 4.5 GM in DEXTROSE 5%-WATER - 100 ML IVPB SCH (16:28)
--- NOTE | 2017-09-12 21:12 | PN ---
Progress Note (short form) - Note Progress Note: CAD s/p stents and CABG, Chronic Pancreatitis, Hypertension, HLD s/p open resection of incarcerated umbilical hernia with ileus and prolonged NPO status. hypokalemia hypophosphatemia Current Medications Acetaminophen (Ofirmev Injection -) 1,000 mg IVPB Q6H PRN PRN Reason: FEVER Albuterol Sulfate (Ventolin 0.083% Nebulizer Soln -) 1 amp NEB RQID [facility] Last Admin: 09/12/17 20:00 Dose: 1 amp Aspirin (Ecotrin -) 81 mg PO DAILY [facility] Last Admin: 09/12/17 11:21 Dose: Not Given Budesonide/Formoterol Fumarate (Symbicort 160/4.5mcg -) 1 puff IH BID [facility] Last Admin: 09/12/17 10:20 Dose: 1 puff Enalaprilat (Vasotec Injection -) 2.5 mg IVPB Q6H-IV [facility] Last Admin: 09/12/17 15:18 Dose: 2.5 mg Finasteride (Proscar -) 5 mg PO DAILY [facility] Last Admin: 09/12/17 11:21 Dose: Not Given Heparin Sodium (Porcine) (Heparin -) 5,000 unit SQ BID [facility] Last Admin: 09/12/17 09:49 Dose: 5,000 unit Hydromorphone HCl (Dilaudid Hair Boiler Operator -) 6 mg FLORICULTURE TEACHER FLORICULTURE TEACHER MARK PRN Reason: Protocol Stop: 09/17/17 17:09 Last Admin: 09/12/17 13:18 Dose: 6 mg IV Flush (Picc Line Flush) 8 ml IVPUSH PRN PRN PRN Reason: Protocol Last Admin: 09/11/17 01:31 Dose: 8 ml Dextrose/Sodium Chloride (D5-1/2ns+40 Meq Kcl -) 40 meq in 1,000 mls @ 83 mls/ hr IV ASDIR [facility] Last Admin: 09/11/17 00:45 Dose: Not Given AA 2.75 %/CALCIUM/LYTES/D7.5W (Clinimix 2.75%-7.5% Solution) 1,000 mls @ 84 mls /hr IVPB Q12H [facility] Last Admin: 09/12/17 13:19 Dose: 84 mls/hr Metronidazole (Flagyl 500mg Premixed Ivpb -) 500 mg in 100 mls @ 100 mls/hr IVPB Q8H-IV [facility] Last Admin: 09/12/17 17:21 Dose: 100 mls/hr Piperacillin Sod/Tazobactam (Sod 4.5 gm/ Dextrose) 100 mls @ 200 mls/hr IVPB Q8H-IV MARK PRN Reason: Protocol Last Admin: 09/12/17 16:28 Dose: 200 mls/hr Vancomycin HCl 1,000 mg/ (Dextrose) 250 mls @ 166.667 mls/hr IVPB BID@0400, 1600 [facility] Last Admin: 09/12/17 16:28 Dose: 166.667 mls/hr Insulin Aspart (Novolog Vial Sliding Scale -) 1 vial SQ Q4HPO [facility] PRN Reason: Protocol Last Admin: 09/12/17 17:27 Dose: 8 units Insulin Detemir (Levemir Vial) 24 units SQ HS [facility] Last Admin: 09/11/17 21:19 Dose: 24 units Metoprolol Tartrate (Lopressor Injection -) 5 mg IVPUSH Q4H PRN PRN Reason: HYPERTENSION Last Admin: 09/11/17 12:51 Dose: 5 mg Montelukast Sodium (Singulair -) 10 mg PO HS [facility] Last Admin: 09/11/17 21:17 Dose: Not Given Ondansetron HCl (Zofran Injection) 4 mg IVPUSH Q6H PRN PRN Reason: NAUSEA AND/OR VOMITING Last Admin: 09/12/17 17:19 Dose: 4 mg Pancrelipase (Creon Dr 36,000 Units Capsule) 1 cap PO TIDCM [facility] Last Admin: 09/12/17 18:31 Dose: Not Given Pantoprazole Sodium (Protonix Iv) 40 mg IVPUSH DAILY [facility] Last Admin: 09/12/17 09:56 Dose: 40 mg Tamsulosin HCl (Flomax -) 0.4 mg PO DAILY@0830 [facility] Last Admin: 09/12/17 08:21 Dose: Not Given Tiotropium Wallace (Spiriva -) 1 puff IH DAILY [facility] Last Admin: 09/12/17 10:19 Dose: 1 inh Last Vital Signs Temp Pulse Resp BP Pulse Ox 99.2 F 110 H 16 146/78 100 09/12/17 17:00 09/12/17 17:18 09/12/17 17:18 09/12/17 17:18 09/12/17 09:00 lungs clear heart reg abd soft nontender ext no edema CBC, BMP 09/12/17 07:55 09/12/17 07:55 IMP- on clinimix labs unremarkable except leukocytosis plan - continue same rx
[2017-09-12 21:44] LABS: URINE APPEARANCE SLCLOUDY; URINE BILIRUBIN NEGATIVE (NEGATIVE); URINE BLOOD 2+ (NEGATIVE); URINE COLOR AMBER; URINE GLUCOSE (UA) 2+ (NEGATIVE); URINE KETONE NEGATIVE (NEGATIVE); URINE LEUK ESTERASE NEGATIVE (NEGATIVE); URINE NITRITE NEGATIVE (NEGATIVE); URINE UROBILINOGEN NEGATIVE mg/dL (0.2-1.0)
[2017-09-12 22:06] LABS: URINE PROTEIN 2+ (NEGATIVE)
[2017-09-12 22:07] LABS: EPI CELLS RARE /HPF (FEW); URINE BACTERIA RARE /hpf (NONE SEEN); URINE MUCUS MODERATE
[2017-09-12] MEDS: INSULIN DETEMIR 100 UNITS/ML MDV SQ SCH (22:14)
[2017-09-12] MEDS: D5-1/2NS+40 MEQ KCL - 40 MEQ/1,000 ML INFUS.BAG IV SCH (22:14)
[2017-09-12] MEDS: MONTELUKAST NA 10 MG TABLET PO SCH (22:15)
[2017-09-13] MEDS: AA 2.75 %/CALCIUM/LYTES/D7.5W 1,000 ML IVPB SCH ×2 (00:49→10:30)
[2017-09-13] MEDS: INSULIN SLIDING SCALE (NOVOLOG) 1 VIAL SQ SCH ×6 (01:06→22:08)
[2017-09-13] MEDS: PIPERACILLIN/TAZOB 4.5 GM 4.5 GM in DEXTROSE 5%-WATER - 100 ML IVPB SCH ×3 (01:06→18:30)
[2017-09-13] MEDS: ENALAPRILAT DIHYDRATE 2.5 MG/2 ML VIAL IVPB SCH ×4 (02:04→21:39)
[2017-09-13] MEDS: VANCOMYCIN 1,000 MG in DEXTROSE 5%-WATER - 250 ML IVPB SCH ×2 (03:58→16:49)
[2017-09-13] MEDS: ONDANSETRON 4 MG/2 ML VIAL IVPUSH PRN ×4 (06:00→21:54)
[2017-09-13] MEDS: ACETAMINOPHEN 1000 MG/100 ML VIAL (NON FORMULARY) IVPB PRN ×2 (06:00→13:18)
[2017-09-13] MEDS: METOPROLOL TARTRATE 5 MG/5 ML VIAL IVPUSH PRN (06:01)
--- NOTE | 2017-09-13 07:10 | PN ---
Progress Note (short form) - Note Progress Note: Pain Management Pain controlled adequately with PC. Patient still NPO, NO adverse effects of CHANGE OF ADDRESS CLERK Continue CHANGE OF ADDRESS CLERK until patient tolerates PO
[2017-09-13] MEDS: HYDROmorphone *PCA* 6MG/30ML DISP.SYRIN PCA SCH ×3 (07:27→22:35)
[2017-09-13] MEDS: ALBUTEROL SO4 0.083% IH SOL 2.5 MG/3 ML VIAL.NEB. NEB SCH ×4 (07:35→20:30)
[2017-09-13] MEDS ORDERED: PT OWN MED DRAWER 7, Y5N ONE ×3 (08:04→21:13)
[2017-09-13 08:19] LABS: BASO % 0.4 % (0-2.0); EOS % 3.5 % (0-4.5); HEMATOCRIT 32.7 % (35.4-49); HEMOGLOBIN 10.7 GM/dL (11.7-16.9); LYMPH % 15.5 % (8-40); MCH 26.2 pg (25.7-33.7); MCHC 32.6 g/dl (32.0-35.9); MEAN CELL VOLUME 80.2 fl (80-96); MEAN PLT VOLUME 7.9 fl (7.5-11.1); MONO % 7.5 % (3.8-10.2); NEUT % 73.1 % (42.8-82.8); PLATELET COUNT 331 K/MM3 (134-434); RBC 4.08 M/mm3 (4.00-5.60); RDW 14.7 % (11.9-15.9); WHITE BLOOD COUNT 15.4 K/mm3 (4.0-10.0)
[2017-09-13] MEDS: LIPASE/PROTEASE/AMYLASE 36,000 UNIT CAPSULE PO SCH ×3 (08:23→18:29)
[2017-09-13 08:44] LABS: ANION GAP 10 (8-16); BLOOD UREA NITROGEN 18 mg/dL (7-18); CALCIUM 8.8 mg/dL (8.5-10.1); CHLORIDE 100 mmol/L (98-107); CO2 24 mmol/L (21-32); CREATININE 1.4 mg/dL (0.7-1.3); POTASSIUM 4.3 mmol/L (3.5-5.1); SODIUM 134 mmol/L (136-145)
[2017-09-13 08:53] LABS: GLUCOSE,RANDOM 380 mg/dL (74-106)
--- NOTE | 2017-09-13 09:03 | PN ---
Progress Note (short form) - Note Progress Note: ANESTHESIOLOGY 61M s/p UHR and SBR POD #3 with idlaudid CONSERVATION SCIENCE TEACHER for pain control. C/o 8/10 pain after getting OOB but generally controlled and tolerable. NPO. No other complaints. Vital Signs Temperature 98.4 F 09/13/17 08:34 Pulse Rate 80 09/13/17 08:34 Respiratory Rate 18 09/13/17 08:34 Blood Pressure 133/75 09/13/17 08:34 O2 Sat by Pulse Oximetry (%) 100 09/13/17 08:30 Active Medications Acetaminophen (Ofirmev Injection -) 1,000 mg IVPB Q6H PRN PRN Reason: FEVER Last Admin: 09/13/17 06:00 Dose: 1,000 mg Albuterol Sulfate (Ventolin 0.083% Nebulizer Soln -) 1 amp NEB RQID [facility] Last Admin: 09/13/17 07:35 Dose: 1 amp Aspirin (Ecotrin -) 81 mg PO DAILY [facility] Last Admin: 09/12/17 11:21 Dose: Not Given Budesonide/Formoterol Fumarate (Symbicort 160/4.5mcg -) 1 puff IH BID [facility] Last Admin: 09/12/17 22:17 Dose: 1 puff Enalaprilat (Vasotec Injection -) 2.5 mg IVPB Q6H-IV [facility] Last Admin: 09/13/17 02:04 Dose: 2.5 mg Finasteride (Proscar -) 5 mg PO DAILY [facility] Last Admin: 09/12/17 11:21 Dose: Not Given Heparin Sodium (Porcine) (Heparin -) 5,000 unit SQ BID [facility] Last Admin: 09/12/17 22:14 Dose: 5,000 unit Hydromorphone HCl (Dilaudid Cover Cutter Machine -) 6 mg CONSERVATION SCIENCE TEACHER CONSERVATION SCIENCE TEACHER MARK PRN Reason: Protocol Stop: 09/14/17 06:29 Last Admin: 09/13/17 07:27 Dose: 6 mg IV Flush (Picc Line Flush) 8 ml IVPUSH PRN PRN PRN Reason: Protocol Last Admin: 09/11/17 01:31 Dose: 8 ml Dextrose/Sodium Chloride (D5-1/2ns+40 Meq Kcl -) 40 meq in 1,000 mls @ 83 mls/ hr IV ASDIR [facility] Last Admin: 09/12/17 22:14 Dose: Not Given AA 2.75 %/CALCIUM/LYTES/D7.5W (Clinimix 2.75%-7.5% Solution) 1,000 mls @ 84 mls /hr IVPB Q12H [facility] Last Admin: 09/13/17 00:49 Dose: 84 mls/hr Metronidazole (Flagyl 500mg Premixed Ivpb -) 500 mg in 100 mls @ 100 mls/hr IVPB Q8H-IV [facility] Last Admin: 09/13/17 01:03 Dose: 100 mls/hr Piperacillin Sod/Tazobactam (Sod 4.5 gm/ Dextrose) 100 mls @ 200 mls/hr IVPB Q8H-IV [facility] PRN Reason: Protocol Last Admin: 09/13/17 01:06 Dose: 200 mls/hr Vancomycin HCl 1,000 mg/ (Dextrose) 250 mls @ 166.667 mls/hr IVPB BID@0400, 1600 [facility] Last Admin: 09/13/17 03:58 Dose: 166.667 mls/hr Insulin Aspart (Novolog Vial Sliding Scale -) 1 vial SQ Q4HPO [facility] PRN Reason: Protocol Last Admin: 09/13/17 06:02 Dose: 10 units Insulin Detemir (Levemir Vial) 24 units SQ [facility] Last Admin: 09/12/17 22:14 Dose: 24 units Metoprolol Tartrate (Lopressor Injection -) 5 mg IVPUSH Q4H PRN PRN Reason: HYPERTENSION Last Admin: 09/13/17 06:01 Dose: 5 mg Montelukast Sodium (Singulair -) 10 mg PO [facility] Last Admin: 09/12/17 22:15 Dose: Not Given Ondansetron HCl (Zofran Injection) 4 mg IVPUSH Q6H PRN PRN Reason: NAUSEA AND/OR VOMITING Last Admin: 09/13/17 06:00 Dose: 4 mg Pancrelipase (Creon Dr 36,000 Units Capsule) 1 cap PO TIDCM [facility] Last Admin: 09/13/17 08:23 Dose: Not Given Pantoprazole Sodium (Protonix Iv) 40 mg IVPUSH DAILY [facility] Last Admin: 09/12/17 09:56 Dose: 40 mg Tamsulosin HCl (Flomax -) 0.4 mg PO DAILY@0830 [facility] Last Admin: 09/12/17 08:21 Dose: Not Given Tiotropium Stafford (Spiriva -) 1 puff IH DAILY [facility] Last Admin: 09/12/17 10:19 Dose: 1 inh Gen: Awake, alert Pain controlled. NPO with NGT in place. Continue CONSERVATION SCIENCE TEACHER, will follow.
--- NOTE | 2017-09-13 09:14 | PN ---
Progress Note, Physician History of Present Illness: POD# 3 exploratory lap, ZACHERY, SB resection, Tm 101, leukocytosis improved, post- op abd discomfort, awaiting flatus, NGT in place - Current Medication List Current Medications: Active Medications Acetaminophen (Ofirmev Injection -) 1,000 mg IVPB Q6H PRN PRN Reason: FEVER Last Admin: 09/13/17 06:00 Dose: 1,000 mg Albuterol Sulfate (Ventolin 0.083% Nebulizer Soln -) 1 amp NEB RQID [facility] Last Admin: 09/13/17 07:35 Dose: 1 amp Aspirin (Ecotrin -) 81 mg PO DAILY [facility] Last Admin: 09/12/17 11:21 Dose: Not Given Budesonide/Formoterol Fumarate (Symbicort 160/4.5mcg -) 1 puff IH BID [facility] Last Admin: 09/12/17 22:17 Dose: 1 puff Enalaprilat (Vasotec Injection -) 2.5 mg IVPB Q6H-IV [facility] Last Admin: 09/13/17 02:04 Dose: 2.5 mg Finasteride (Proscar -) 5 mg PO DAILY [facility] Last Admin: 09/12/17 11:21 Dose: Not Given Heparin Sodium (Porcine) (Heparin -) 5,000 unit SQ BID [facility] Last Admin: 09/12/17 22:14 Dose: 5,000 unit Hydromorphone HCl (Dilaudid Head Waitress -) 6 mg TAX MANAGER TAX MANAGER MARK PRN Reason: Protocol Stop: 09/14/17 06:29 Last Admin: 09/13/17 07:27 Dose: 6 mg IV Flush (Picc Line Flush) 8 ml IVPUSH PRN PRN PRN Reason: Protocol Last Admin: 09/11/17 01:31 Dose: 8 ml Dextrose/Sodium Chloride (D5-1/2ns+40 Meq Kcl -) 40 meq in 1,000 mls @ 83 mls/ hr IV ASDIR [facility] Last Admin: 09/12/17 22:14 Dose: Not Given AA 2.75 %/CALCIUM/LYTES/D7.5W (Clinimix 2.75%-7.5% Solution) 1,000 mls @ 84 mls /hr IVPB Q12H [facility] Last Admin: 09/13/17 00:49 Dose: 84 mls/hr Metronidazole (Flagyl 500mg Premixed Ivpb -) 500 mg in 100 mls @ 100 mls/hr IVPB Q8H-IV [facility] Last Admin: 09/13/17 01:03 Dose: 100 mls/hr Piperacillin Sod/Tazobactam (Sod 4.5 gm/ Dextrose) 100 mls @ 200 mls/hr IVPB Q8H-IV [facility] PRN Reason: Protocol Last Admin: 09/13/17 01:06 Dose: 200 mls/hr Vancomycin HCl 1,000 mg/ (Dextrose) 250 mls @ 166.667 mls/hr IVPB BID@0400, 1600 [facility] Last Admin: 09/13/17 03:58 Dose: 166.667 mls/hr Insulin Aspart (Novolog Vial Sliding Scale -) 1 vial SQ Q4HPO [facility] PRN Reason: Protocol Last Admin: 09/13/17 06:02 Dose: 10 units Insulin Detemir (Levemir Vial) 24 units SQ [facility] Last Admin: 09/12/17 22:14 Dose: 24 units Metoprolol Tartrate (Lopressor Injection -) 5 mg IVPUSH Q4H PRN PRN Reason: HYPERTENSION Last Admin: 09/13/17 06:01 Dose: 5 mg Montelukast Sodium (Singulair -) 10 mg PO [facility] Last Admin: 09/12/17 22:15 Dose: Not Given Ondansetron HCl (Zofran Injection) 4 mg IVPUSH Q6H PRN PRN Reason: NAUSEA AND/OR VOMITING Last Admin: 09/13/17 06:00 Dose: 4 mg Pancrelipase (Creon Dr 36,000 Units Capsule) 1 cap PO TIDCM [facility] Last Admin: 09/13/17 08:23 Dose: Not Given Pantoprazole Sodium (Protonix Iv) 40 mg IVPUSH DAILY [facility] Last Admin: 09/12/17 09:56 Dose: 40 mg Tamsulosin HCl (Flomax -) 0.4 mg PO DAILY@0830 [facility] Last Admin: 09/12/17 08:21 Dose: Not Given Tiotropium [place] (Spiriva -) 1 puff IH DAILY [facility] Last Admin: 09/12/17 10:19 Dose: 1 inh - Objective Vital Signs: Vital Signs Temperature 98.4 F 09/13/17 08:34 Pulse Rate 80 09/13/17 08:34 Respiratory Rate 18 09/13/17 08:34 Blood Pressure 133/75 09/13/17 08:34 O2 Sat by Pulse Oximetry (%) 100 09/13/17 08:30 Constitutional: Yes: No Distress, Calm Neck: Yes: Supple Cardiovascular: Yes: Regular Rate and Rhythm Respiratory: Yes: Regular, Diminished, On Nasal O2 Gastrointestinal: Yes: Distention, Hypoactive Bowel Sounds Edema: No Labs: CBC, BMP 09/13/17 08:00 09/13/17 08:00 INR, PTT INR 1.22 (0.82-1.09) H 08/21/17 06:55 - ....Imaging EKG: Report Reviewed (Tele: SR with PAC) Problem List - Problems (1) Chest pain Code(s): R07.9 - CHEST PAIN, UNSPECIFIED Qualifiers: Chest pain type: unspecified Qualified Code(s): R07.9 - Chest pain, unspecified (2) Chronic pancreatitis Code(s): K86.1 - OTHER CHRONIC PANCREATITIS Qualifiers: Pancreatitis type: unspecified pancreatitis type Qualified Code(s): K86.1 - Other chronic pancreatitis (3) Abdominal pain Code(s): R10.9 - UNSPECIFIED ABDOMINAL PAIN Qualifiers: Abdominal location: upper abdomen, unspecified Qualified Code(s): R10.10 - Upper abdominal pain, unspecified (4) Asthma Code(s): J45.909 - UNSPECIFIED ASTHMA, UNCOMPLICATED Qualifiers: Asthma severity: unspecified severity (5) COPD (chronic obstructive pulmonary disease) Code(s): J44.9 - CHRONIC OBSTRUCTIVE PULMONARY DISEASE, UNSPECIFIED (6) Chronic diastolic (congestive) heart failure Code(s): I50.32 - CHRONIC DIASTOLIC (CONGESTIVE) HEART FAILURE (7) Coronary artery disease Code(s): I25.10 - ATHSCL HEART DISEASE OF [place] CORONARY ARTERY W/O ANG PCTRS (8) Diabetes mellitus Code(s): E11.9 - TYPE 2 DIABETES MELLITUS WITHOUT COMPLICATIONS Qualifiers: Diabetes mellitus type: type 2 Diabetes mellitus complication detail: with unspecified neuropathy (9) Esophagitis determined by endoscopy Code(s): K20.9 - ESOPHAGITIS, UNSPECIFIED (10) Hyperlipidemia Code(s): E78.5 - HYPERLIPIDEMIA, UNSPECIFIED (11) Hypertension Code(s): I10 - ESSENTIAL (PRIMARY) HYPERTENSION Qualifiers: Hypertension type: essential hypertension Qualified Code(s): I10 - Essential (primary) hypertension (12) Hypertension associated with diabetes Code(s): E11.59 - TYPE 2 DIABETES MELLITUS WITH OTH CIRCULATORY COMPLICATIONS; I10 - ESSENTIAL (PRIMARY) HYPERTENSION (13) IPMN (intraductal papillary mucinous neoplasm) Code(s): D49.0 - NEOPLASM OF UNSPECIFIED BEHAVIOR OF DIGESTIVE SYSTEM (14) Myocardial infarct Code(s): I21.3 - ST ELEVATION (STEMI) MYOCARDIAL INFARCTION OF UNSP SITE (15) GRACIE (obstructive sleep apnea) Code(s): G47.33 - OBSTRUCTIVE SLEEP APNEA (ADULT) (PEDIATRIC) (16) Type 2 diabetes mellitus with diabetic neuropathy Code(s): E11.40 - TYPE 2 DIABETES MELLITUS WITH DIABETIC NEUROPATHY, UNSP (17) Renal calculus, left Code(s): N20.0 - CALCULUS OF KIDNEY (18) Umbilical hernia Code(s): K42.9 - UMBILICAL HERNIA WITHOUT OBSTRUCTION OR GANGRENE Qualifiers: Obstruction and gangrene presence: without obstruction or gangrene Qualified Code(s): K42.9 - Umbilical hernia without obstruction or gangrene (19) S/P lumbar spinal fusion Code(s): Z98.1 - ARTHRODESIS STATUS (20) Tracheostomy in place Code(s): Z98.89 - OTHER SPECIFIED POSTPROCEDURAL STATES * DO NOT USE * (21) H/O umbilical hernia repair Code(s): Z98.890 - OTHER SPECIFIED POSTPROCEDURAL STATES; Z87.19 - PERSONAL HISTORY OF OTHER DISEASES OF THE DIGESTIVE SYSTEM (22) SBO (small bowel obstruction) Code(s): K56.609 - UNSP INTESTNL OBST, UNSP TO PARTIAL VERSUS COMPLETE OBST Assessment/Plan 1. POD #3 exploratory lap, ZACHERY, SB resection, umbilical hernia repair 2. History of chronic pancreatitis 3. Chronic atypical chest pain syndrome, resolved 4. CAD post IL, post PCI (stents), angina pectoris 5. Diastolic LV dysfunction with chronic class 0-I NYHA classification LV failure, compensated/euvolemic 6. HTN/HCVD 7. DM 8. Hyperlipidemia 9. OSAS 10. COPD/Asthma 11. Acute on CKD PLAN: 1. Continue IV Lopressor, till PO intake 2. Continue IV Vasotec, till PO intake 3. Plavix via NGT per surgery recs 4. Resume oral therapies including Norvasc, Altace, Crestor and Zetia once oral intake 5. Pain management as per the primary team 6. Empiric antibiotic course as per ID, f/u C&S 7. DVT prophylaxis
[2017-09-13] MEDS: TAMSULOSIN HCL 0.4 MG CAP.ER.24H (FP) PO SCH (09:28)
--- NOTE | 2017-09-13 09:38 | PN ---
GI Progress Note Subjective: S/P Ex-Lap w/ ZACHERY, small bowel resection POD #3 Patient awake. Says that he is tired No TPN due to AA shortage per communications assistant - Objective Vital Signs: Vital Signs Temperature 98.4 F 09/13/17 08:34 Pulse Rate 80 09/13/17 08:34 Respiratory Rate 18 09/13/17 08:34 Blood Pressure 133/75 09/13/17 08:34 O2 Sat by Pulse Oximetry (%) 100 09/13/17 08:30 Constitutional: Calm Eyes: No: Sclera Icterus Cardiovascular: Yes: Regular Rate and Rhythm Respiratory: Yes: Diminished (at bases) Gastrointestinal Inspection: Yes: Other (Limited as abdominal biner in place. Hypoactive BS.) Edema: No (No LE edema) Neurological: Yes: Alert, Oriented Labs: CBC, BMP 09/13/17 08:00 09/13/17 08:00 INR, PTT INR 1.22 (0.82-1.09) H 08/21/17 06:55 Problem List - Problems (1) SBO (small bowel obstruction) Assessment/Plan: POD 3 as noted above On Modified clinimix as there is a shortage of AA per dietaician note Glycemic control Post op care per surgery. Will sign off for now. Please recall as needed Please recall as needed. Mr. Cohen has my office information for follow-up when acute issues are resolved Code(s): K56.609 - UNSP INTESTNL OBST, UNSP TO PARTIAL VERSUS COMPLETE OBST
[2017-09-13] MEDS: HEPARIN NA (PORCINE) 5,000 UNITS/ML 1ML VIAL SQ SCH ×2 (09:39→21:39)
[2017-09-13] MEDS: PANTOPRAZOLE SODIUM 40 MG VIAL IVPUSH SCH (09:39)
--- NOTE | 2017-09-13 09:54 | PN ---
Progress Note (short form) - Note Progress Note: no complaints still with NGT no flatus yet no SOB +cough with large amounts rivera sputum s/p ex lap for incarcerated umbilical hernia- s/p SBO resection lysis adhrsion and hernia repair fevers improved Vital Signs Period Temp Pulse Resp BP Sys/Gates Pulse Ox Last 24 Hr 98.4 F-101.1 F 80-110 16-22 133-160/75-106 100-100 +NGT cor-rrr lungs decreased bs at bases abd soft, dressing intact, binder in place ext no edema CBC, BMP 09/13/17 08:00 09/13/17 08:00 cultures pending a/p post op fever post op day #3 started on vanco/zosyn yesterday check vanco trough f/u cultures cxray ordered given copious sputum production
[2017-09-13] MEDS ORDERED: INSULIN (NOVOLOG) ASPART 100 UNITS/ML 10ML VIAL ONE ×2 (10:09→15:34)
[2017-09-13] MEDS: BUDESONIDE/FORMETEROL FUMARATE 160/4.5 mcg INHALER IH SCH ×2 (10:18→22:55)
[2017-09-13] MEDS: FINASTERIDE 5 MG TABLET (FP) PO SCH (10:41)
[2017-09-13] MEDS: ASPIRIN COATED 81 MG TABLET.EC PO SCH (10:41)
[2017-09-13] MEDS: CLOPIDOGREL BISULFATE 75 MG TABLET (FP) NGT SCH (10:41)
[2017-09-13] MEDS: TIOTROPIUM BROMIDE 18 MCG/INH (DEVICE W/ 5 CAPSULES) IH SCH (10:54)
--- NOTE | 2017-09-13 15:48 | PN ---
Progress Note, Physician Chief Complaint: EVENTS AND NOTES REVIEWED AWAEK ALERT IN DISTRESS USING INCENTIVE SPIROMETRY - Current Medication List Current Medications: Active Medications Acetaminophen (Ofirmev Injection -) 1,000 mg IVPB Q6H PRN PRN Reason: FEVER Last Admin: 09/13/17 13:18 Dose: 1,000 mg Albuterol Sulfate (Ventolin 0.083% Nebulizer Soln -) 1 amp NEB RQID [facility] Last Admin: 09/13/17 11:34 Dose: Not Given Amitriptyline HCl (Elavil -) 25 mg NGT TID [facility] Aspirin (Ecotrin -) 81 mg PO DAILY [facility] Last Admin: 09/13/17 10:41 Dose: 81 mg Budesonide/Formoterol Fumarate (Symbicort 160/4.5mcg -) 1 puff IH BID [facility] Last Admin: 09/13/17 10:18 Dose: 1 puff Clopidogrel Bisulfate (Plavix -) 75 mg NGT DAILY [facility] Last Admin: 09/13/17 10:41 Dose: 75 mg Enalaprilat (Vasotec Injection -) 2.5 mg IVPB Q6H-IV [facility] Last Admin: 09/13/17 10:29 Dose: Not Given Fat Emulsion Intravenous (Intralipid -) 250 ml IV DAILY@2200 [facility] Finasteride (Proscar -) 5 mg PO DAILY [facility] Last Admin: 09/13/17 10:41 Dose: 5 mg Heparin Sodium (Porcine) (Heparin -) 5,000 unit SQ BID [facility] Last Admin: 09/13/17 09:39 Dose: 5,000 unit Hydromorphone HCl (Dilaudid Food Service Employee -) 6 mg REMOTE OPERATIONS PRODUCER REMOTE OPERATIONS PRODUCER MARK PRN Reason: Protocol Stop: 09/14/17 06:29 Last Admin: 09/13/17 07:27 Dose: 6 mg IV Flush (Picc Line Flush) 8 ml IVPUSH PRN PRN PRN Reason: Protocol Last Admin: 09/11/17 01:31 Dose: 8 ml Dextrose/Sodium Chloride (D5-1/2ns+40 Meq Kcl -) 40 meq in 1,000 mls @ 83 mls/ hr IV ASDIR [facility] Last Admin: 09/12/17 22:14 Dose: Not Given AA 2.75 %/CALCIUM/LYTES/D7.5W (Clinimix 2.75%-7.5% Solution) 1,000 mls @ 84 mls /hr IVPB Q12H [facility] Last Admin: 09/13/17 10:30 Dose: 84 mls/hr Metronidazole (Flagyl 500mg Premixed Ivpb -) 500 mg in 100 mls @ 100 mls/hr IVPB Q8H-IV [facility] Last Admin: 09/13/17 09:42 Dose: 100 mls/hr Piperacillin Sod/Tazobactam (Sod 4.5 gm/ Dextrose) 100 mls @ 200 mls/hr IVPB Q8H-IV [facility] PRN Reason: Protocol Last Admin: 09/13/17 09:33 Dose: 200 mls/hr Vancomycin HCl 1,000 mg/ (Dextrose) 250 mls @ 166.667 mls/hr IVPB BID@0400, 1600 [facility] Last Admin: 09/13/17 03:58 Dose: 166.667 mls/hr Insulin Aspart (Novolog Vial Sliding Scale -) 1 vial SQ Q4HPO [facility] PRN Reason: Protocol Last Admin: 09/13/17 14:18 Dose: 10 units Insulin Detemir (Levemir Vial) 24 units SQ [facility] Last Admin: 09/12/17 22:14 Dose: 24 units Metoprolol Tartrate (Lopressor Injection -) 5 mg IVPUSH Q4H PRN PRN Reason: HYPERTENSION Last Admin: 09/13/17 06:01 Dose: 5 mg Montelukast Sodium (Singulair -) 10 mg PO [facility] Last Admin: 09/12/17 22:15 Dose: Not Given Multivitamins/Minerals/Vitamin C (Tab-A-Vit -) 1 tab PO DAILY [facility] Ondansetron HCl (Zofran Injection) 4 mg IVPUSH Q4H PRN PRN Reason: NAUSEA AND/OR VOMITING Last Admin: 09/13/17 15:36 Dose: 4 mg Pancrelipase (Creon Dr 36,000 Units Capsule) 1 cap PO TIDCM [facility] Last Admin: 09/13/17 11:59 Dose: Not Given Pantoprazole Sodium (Protonix Iv) 40 mg IVPUSH DAILY [facility] Last Admin: 09/13/17 09:39 Dose: 40 mg Tamsulosin HCl (Flomax -) 0.4 mg PO DAILY@0830 [facility] Last Admin: 09/13/17 09:28 Dose: Not Given Tiotropium [place] (Spiriva -) 1 puff IH DAILY [facility] Last Admin: 09/13/17 10:54 Dose: Not Given - Objective Vital Signs: Vital Signs Temperature 99.0 F 09/13/17 14:00 Pulse Rate 96 H 09/13/17 14:00 Respiratory Rate 18 09/13/17 14:00 Blood Pressure 130/78 09/13/17 14:00 O2 Sat by Pulse Oximetry (%) 100 09/13/17 08:30 Constitutional: Yes: Moderate Distress Eyes: Yes: WNL HENT: Yes: WNL Neck: Yes: WNL Cardiovascular: Yes: Tachycardia Respiratory: Yes: Diminished, On Nasal O2 Gastrointestinal: Yes: Distention, Tenderness Genitourinary: Yes: Incontinence Musculoskeletal: Yes: Muscle Weakness Extremities: Yes: WNL Edema: Yes Peripheral Pulses WNL: Yes Integumentary: Yes: Venous Stasis Changes Wound/Incision: Yes: Draining, Other Neurological: Yes: Weakness, Other ...Motor Strength: LLE, RLE Psychiatric: Yes: Other Labs: CBC, BMP 09/13/17 08:00 09/13/17 08:00 INR, PTT INR 1.22 (0.82-1.09) H 08/21/17 06:55 Problem List - Problems (1) Umbilical hernia Code(s): K42.9 - UMBILICAL HERNIA WITHOUT OBSTRUCTION OR GANGRENE Qualifiers: Obstruction and gangrene presence: without obstruction or gangrene Qualified Code(s): K42.9 - Umbilical hernia without obstruction or gangrene (2) Chest pain Code(s): R07.9 - CHEST PAIN, UNSPECIFIED Qualifiers: Chest pain type: unspecified Qualified Code(s): R07.9 - Chest pain, unspecified (3) Chronic pancreatitis Code(s): K86.1 - OTHER CHRONIC PANCREATITIS Qualifiers: Pancreatitis type: unspecified pancreatitis type Qualified Code(s): K86.1 - Other chronic pancreatitis (4) 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 Code(s): E10.8 - TYPE 1 DIABETES MELLITUS WITH UNSPECIFIED COMPLICATIONS (5) Pneumonia Code(s): J18.9 - PNEUMONIA, UNSPECIFIED ORGANISM Qualifiers: Pneumonia type: due to unspecified organism Laterality: right Lung location: unspecified part of lung Qualified Code(s): J18.9 - Pneumonia, unspecified organism (6) ASHD (arteriosclerotic heart disease) Code(s): I25.10 - ATHSCL HEART DISEASE OF [place] CORONARY ARTERY W/O ANG PCTRS (7) Abdominal pain Code(s): R10.9 - UNSPECIFIED ABDOMINAL PAIN Qualifiers: Abdominal location: upper abdomen, unspecified Qualified Code(s): R10.10 - Upper abdominal pain, unspecified (8) Type 2 diabetes mellitus with diabetic neuropathy Code(s): E11.40 - TYPE 2 DIABETES MELLITUS WITH DIABETIC NEUROPATHY, UNSP (9) H/O umbilical hernia repair Code(s): Z98.890 - OTHER SPECIFIED POSTPROCEDURAL STATES; Z87.19 - PERSONAL HISTORY OF OTHER DISEASES OF THE DIGESTIVE SYSTEM (10) SBO (small bowel obstruction) Code(s): K56.609 - UNSP INTESTNL OBST, UNSP TO PARTIAL VERSUS COMPLETE OBST (11) Anxiety Code(s): F41.9 - ANXIETY DISORDER, UNSPECIFIED (12) Arrhythmia Code(s): I49.9 - CARDIAC ARRHYTHMIA, UNSPECIFIED (13) Cervical disc disease Code(s): M50.90 - CERVICAL DISC DISORDER, UNSP, UNSPECIFIED CERVICAL REGION (14) Cervical radiculopathy Code(s): M54.12 - RADICULOPATHY, CERVICAL REGION (15) Cervical vertebral fusion Code(s): M43.22 - FUSION OF SPINE, CERVICAL REGION (16) Chronic back pain Code(s): M54.9 - DORSALGIA, UNSPECIFIED; G89.29 - OTHER CHRONIC PAIN Qualifiers: (17) Chronic pain following surgery or procedure Code(s): G89.28 - OTHER CHRONIC POSTPROCEDURAL PAIN (18) H/O cervical spine surgery Code(s): Z98.89 - OTHER SPECIFIED POSTPROCEDURAL STATES * DO NOT USE * Assessment/Plan IV ABX PER ID CARDIOLOGY EVAL ON TELE NO NEW ALARMS WILL NEED AGGRESSIVE PHYSICAL THERAPY AND REHAB ONCE MEDICALLY CLEARED BGM CONTROL ON SSI ENDOCRINE CONSULT F/U LIPIDS AND CLINIMIX STARTED PO MVI FOR NUTRITION UNTIL ABLE TO TOLERATE MEALS
--- NOTE | 2017-09-13 16:10 | PN ---
Progress Note (short form) - Note Progress Note: No acute events No flatus/BM NG tube in place- minimal drainage: less than 100ml/day Pain controlled Vital Signs Period Temp Pulse Resp BP Sys/Gates Pulse Ox Last 24 Hr 98.4 F-101.1 F 80-110 16-22 125-160/74-106 100-100 Abd soft, binder in place CBC, BMP 09/13/17 08:00 09/13/17 08:00 Continue antibiotics Glycemic control Ambulate/PT Await flatus Problem List - Problems (1) Umbilical hernia Code(s): K42.9 - UMBILICAL HERNIA WITHOUT OBSTRUCTION OR GANGRENE Qualifiers: Obstruction and gangrene presence: without obstruction or gangrene Qualified Code(s): K42.9 - Umbilical hernia without obstruction or gangrene
--- NOTE | 2017-09-13 16:12 | PN ---
Progress Note (short form) - Note Progress Note: Patient recovering from hernia surgery. Able to ambulate briefly. Will discuss potential treatment options for Lumbar degenerative disease once he improves further.
[2017-09-13] MEDS: MULTIVITAMINS (DAILY MVI) TABLET (FP) PO SCH (16:24)
[2017-09-13] MEDS: AMITRIPTYLINE HCL 25 MG TABLET (FP) NGT SCH ×2 (16:24→21:39)
--- NOTE | 2017-09-13 16:36 | PN ---
Progress Note (short form) - Note Progress Note: Renal follow up for Hypokalemia/TPN Pt seen and examined at the bedside chart reviewed, s/p open resection of incarcerated hernia has abd pain has yet to pass gas or have a BM yet on Clinmix Vital Signs Temperature 99.0 F 09/13/17 14:00 Pulse Rate 90 09/13/17 15:27 Respiratory Rate 18 09/13/17 15:27 Blood Pressure 154/72 09/13/17 15:27 O2 Sat by Pulse Oximetry (%) 100 09/13/17 08:30 Intake & Output 09/10/17 09/11/17 09/12/17 09/13/17 23:59 23:59 23:59 23:59 Intake Total 2411 4070 1330 1600 Output Total 2850 750 450 150 Balance -439 3320 880 1450 Weight 112.582 kg 111.765 kg 109.406 kg 112.128 kg NAD awake and alert + abd tenderness No LE edema CBC, BMP 09/13/17 08:00 09/13/17 08:00 Current Medications Acetaminophen (Ofirmev Injection -) 1,000 mg IVPB Q6H PRN PRN Reason: FEVER Last Admin: 09/13/17 13:18 Dose: 1,000 mg Albuterol Sulfate (Ventolin 0.083% Nebulizer Soln -) 1 amp NEB RQID [facility] Last Admin: 09/13/17 15:50 Dose: Not Given Amitriptyline HCl (Elavil -) 25 mg NGT TID [facility] Last Admin: 09/13/17 16:24 Dose: 25 mg Aspirin (Ecotrin -) 81 mg PO DAILY [facility] Last Admin: 09/13/17 10:41 Dose: 81 mg Budesonide/Formoterol Fumarate (Symbicort 160/4.5mcg -) 1 puff IH BID [facility] Last Admin: 09/13/17 10:18 Dose: 1 puff Clopidogrel Bisulfate (Plavix -) 75 mg NGT DAILY [facility] Last Admin: 09/13/17 10:41 Dose: 75 mg Enalaprilat (Vasotec Injection -) 2.5 mg IVPB Q6H-IV [facility] Last Admin: 09/13/17 16:25 Dose: 2.5 mg Fat Emulsion Intravenous (Intralipid -) 250 ml IV DAILY@2200 [facility] Finasteride (Proscar -) 5 mg PO DAILY [facility] Last Admin: 09/13/17 10:41 Dose: 5 mg Heparin Sodium (Porcine) (Heparin -) 5,000 unit SQ BID [facility] Last Admin: 09/13/17 09:39 Dose: 5,000 unit Hydromorphone HCl (Dilaudid Marine Cargo Surveyor -) 6 mg FRONT END LOADER OPERATOR FRONT END LOADER OPERATOR MARK PRN Reason: Protocol Stop: 09/14/17 06:29 Last Admin: 09/13/17 07:27 Dose: 6 mg IV Flush (Picc Line Flush) 8 ml IVPUSH PRN PRN PRN Reason: Protocol Last Admin: 09/11/17 01:31 Dose: 8 ml Dextrose/Sodium Chloride (D5-1/2ns+40 Meq Kcl -) 40 meq in 1,000 mls @ 83 mls/ hr IV ASDIR [facility] Last Admin: 09/12/17 22:14 Dose: Not Given Metronidazole (Flagyl 500mg Premixed Ivpb -) 500 mg in 100 mls @ 100 mls/hr IVPB Q8H-IV [facility] Last Admin: 09/13/17 09:42 Dose: 100 mls/hr Piperacillin Sod/Tazobactam (Sod 4.5 gm/ Dextrose) 100 mls @ 200 mls/hr IVPB Q8H-IV [facility] PRN Reason: Protocol Last Admin: 09/13/17 09:33 Dose: 200 mls/hr Vancomycin HCl 1,000 mg/ (Dextrose) 250 mls @ 166.667 mls/hr IVPB BID@0400, 1600 [facility] Last Admin: 09/13/17 03:58 Dose: 166.667 mls/hr Amino Acids (Clinimix -) 1,000 mls @ 84 mls/hr IV Q12H [facility] Insulin Aspart (Novolog Vial Sliding Scale -) 1 vial SQ Q4HPO [facility] PRN Reason: Protocol Last Admin: 09/13/17 14:18 Dose: 10 units Insulin Detemir (Levemir Vial) 24 units SQ HS [facility] Last Admin: 09/12/17 22:14 Dose: 24 units Metoprolol Tartrate (Lopressor Injection -) 5 mg IVPUSH Q4H PRN PRN Reason: HYPERTENSION Last Admin: 09/13/17 06:01 Dose: 5 mg Montelukast Sodium (Singulair -) 10 mg PO HS [facility] Last Admin: 09/12/17 22:15 Dose: Not Given Multivitamins/Minerals/Vitamin C (Tab-A-Vit -) 1 tab PO DAILY [facility] Last Admin: 09/13/17 16:24 Dose: 1 tab Ondansetron HCl (Zofran Injection) 4 mg IVPUSH Q4H PRN PRN Reason: NAUSEA AND/OR VOMITING Last Admin: 09/13/17 15:36 Dose: 4 mg Pancrelipase (Creon Dr 36,000 Units Capsule) 1 cap PO TIDCM [facility] Last Admin: 09/13/17 11:59 Dose: Not Given Pantoprazole Sodium (Protonix Iv) 40 mg IVPUSH DAILY [facility] Last Admin: 09/13/17 09:39 Dose: 40 mg Tamsulosin HCl (Flomax -) 0.4 mg PO DAILY@0830 [facility] Last Admin: 09/13/17 09:28 Dose: Not Given Tiotropium [place] (Spiriva -) 1 puff IH DAILY [facility] Last Admin: 09/13/17 10:54 Dose: Not Given 61 year old gentleman with PMhx of CAD s/p stents and CABG, Chronic Pancreatitis , Hypertension, HLD who presented with abd pain and now s/p open resection of incarcerated umbilical hernia with ileus and prolonged NPO status. #s/p open resection of incarcerated hernia with prolonged NPO status management as per surgery will continue Clinimix for now awaiting surgical clearance to start PO diet #Hypokalemia improved and stable trend daily #Hypertension continue enalapril IV Q6h, Metoprolol IV goal BP < 140/90 #Hypophosphatemia improved as of 09/11 will check in AM Thank you Az Nelson DO
[2017-09-13] MEDS: AMINO ACIDS 4.25%/D5W 1,000 ML IV SCH (16:48)
[2017-09-13] MEDS: D5-1/2NS+40 MEQ KCL - 40 MEQ/1,000 ML INFUS.BAG IV SCH (17:48)
[2017-09-13] MEDS: MONTELUKAST NA 10 MG TABLET PO SCH (21:39)
[2017-09-13] MEDS: INSULIN DETEMIR 100 UNITS/ML MDV SQ SCH (21:40)
[2017-09-13] MEDS ORDERED: PIPERACILLIN/TAZOB 4.5 GM 4.5 GM in SODIUM CHLORIDE 100 ML IVPB SCH (21:59)
[2017-09-13] MEDS ORDERED: VANCOMYCIN 1,000 MG in SODIUM CHLORIDE 250 ML IVPB SCH (21:59)
[2017-09-13] MEDS ORDERED: FAT EMULSIONS 20% 250 ML PREMIX INFUS.BAG IV SCH (22:00)
--- NOTE | 2017-09-13 23:48 | PN ---
Progress Note, Physician History of Present Illness: Pt. alert, no chest pain, palpitations or dyspnea. Mild abdominal fullness and tenderness. NG tube in place - Current Medication List Current Medications: Active Medications Acetaminophen (Ofirmev Injection -) 1,000 mg IVPB Q6H PRN PRN Reason: FEVER Last Admin: 09/13/17 13:18 Dose: 1,000 mg Albuterol Sulfate (Ventolin 0.083% Nebulizer Soln -) 1 amp NEB RQID [facility] Last Admin: 09/13/17 20:30 Dose: 1 amp Amitriptyline HCl (Elavil -) 25 mg NGT TID [facility] Last Admin: 09/13/17 21:39 Dose: 25 mg Aspirin (Ecotrin -) 81 mg PO DAILY [facility] Last Admin: 09/13/17 10:41 Dose: 81 mg Budesonide/Formoterol Fumarate (Symbicort 160/4.5mcg -) 1 puff IH BID [facility] Last Admin: 09/13/17 22:55 Dose: 1 puff Clopidogrel Bisulfate (Plavix -) 75 mg NGT DAILY [facility] Last Admin: 09/13/17 10:41 Dose: 75 mg Enalaprilat (Vasotec Injection -) 2.5 mg IVPB Q6H-IV [facility] Last Admin: 09/13/17 21:39 Dose: 2.5 mg Fat Emulsion Intravenous (Intralipid -) 250 ml IV DAILY@2200 [facility] Last Admin: 09/13/17 22:52 Dose: 250 ml Finasteride (Proscar -) 5 mg PO DAILY [facility] Last Admin: 09/13/17 10:41 Dose: 5 mg Heparin Sodium (Porcine) (Heparin -) 5,000 unit SQ BID [facility] Last Admin: 09/13/17 21:39 Dose: 5,000 unit Hydromorphone HCl (Dilaudid Envelope Adjuster -) 6 mg BATTERY MECHANIC BATTERY MECHANIC MARK PRN Reason: Protocol Stop: 09/14/17 06:29 Last Admin: 09/13/17 22:35 Dose: 6 mg IV Flush (Picc Line Flush) 8 ml IVPUSH PRN PRN PRN Reason: Protocol Last Admin: 09/11/17 01:31 Dose: 8 ml Dextrose/Sodium Chloride (D5-1/2ns+40 Meq Kcl -) 40 meq in 1,000 mls @ 83 mls/ hr IV ASDIR [facility] Last Admin: 09/13/17 17:48 Dose: Not Given Metronidazole (Flagyl 500mg Premixed Ivpb -) 500 mg in 100 mls @ 100 mls/hr IVPB Q8H-IV [facility] Last Admin: 09/13/17 18:29 Dose: 100 mls/hr Amino Acids (Clinimix -) 1,000 mls @ 84 mls/hr IV Q12H [facility] Last Admin: 09/13/17 16:48 Dose: 84 mls/hr Vancomycin HCl 1,000 mg/ (Sodium Chloride) 250 mls @ 166.667 mls/hr IVPB BID@ 0400,1600 [facility] Piperacillin Sod/Tazobactam (Sod 4.5 gm/ Sodium Chloride) 100 mls @ 200 mls/hr IVPB Q8H-IV [facility] PRN Reason: Protocol Piperacillin Sod/Tazobactam (Sod 4.5 gm/ Sodium Chloride) 100 mls @ 200 mls/hr IVPB Q8H-IV [facility] Stop: 09/14/17 10:29 Vancomycin HCl 1,000 mg/ (Sodium Chloride) 250 mls @ 166.667 mls/hr IVPB ONCE ONE Stop: 09/14/17 06:29 Insulin Aspart (Novolog Vial Sliding Scale -) 1 vial SQ Q4HPO [facility] PRN Reason: Protocol Last Admin: 09/13/17 22:08 Dose: 8 units Insulin Detemir (Levemir Vial) 24 units SQ [facility] Last Admin: 09/13/17 21:40 Dose: 24 units Metoprolol Tartrate (Lopressor Injection -) 5 mg IVPUSH Q4H PRN PRN Reason: HYPERTENSION Last Admin: 09/13/17 06:01 Dose: 5 mg Montelukast Sodium (Singulair -) 10 mg PO [facility] Last Admin: 09/13/17 21:39 Dose: 10 mg Multivitamins/Minerals/Vitamin C (Tab-A-Vit -) 1 tab PO DAILY [facility] Last Admin: 09/13/17 16:24 Dose: 1 tab Ondansetron HCl (Zofran Injection) 4 mg IVPUSH Q4H PRN PRN Reason: NAUSEA AND/OR VOMITING Last Admin: 09/13/17 21:54 Dose: 4 mg Pancrelipase (Creon Dr 36,000 Units Capsule) 1 cap PO TIDCM [facility] Last Admin: 09/13/17 18:29 Dose: Not Given Pantoprazole Sodium (Protonix Iv) 40 mg IVPUSH DAILY [facility] Last Admin: 09/13/17 09:39 Dose: 40 mg Tamsulosin HCl (Flomax -) 0.4 mg PO DAILY@0830 [facility] Last Admin: 09/13/17 09:28 Dose: Not Given Tiotropium [place] (Spiriva -) 1 puff IH DAILY [facility] Last Admin: 09/13/17 10:54 Dose: Not Given - Objective Vital Signs: Vital Signs Temperature 99.2 F 09/13/17 19:45 Pulse Rate 99 H 09/13/17 22:35 Respiratory Rate 18 09/13/17 22:35 Blood Pressure 149/77 09/13/17 22:35 O2 Sat by Pulse Oximetry (%) 100 09/13/17 08:30 Constitutional: Yes: No Distress Eyes: No: Sclera Icterus HENT: Yes: Atraumatic, Normocephalic Neck: Yes: Other (tracheostomy site is clean and dry) Cardiovascular: Yes: Regular Rate and Rhythm Respiratory: Yes: CTA Bilaterally Gastrointestinal: Yes: Soft Extremities: No: Calf Tenderness Edema: No Neurological: Yes: Alert, Oriented Labs: CBC, BMP 09/13/17 08:00 09/13/17 08:00 INR, PTT INR 1.22 (0.82-1.09) H 08/21/17 06:55 Problem List - Problems (1) Umbilical hernia Code(s): K42.9 - UMBILICAL HERNIA WITHOUT OBSTRUCTION OR GANGRENE Qualifiers: Obstruction and gangrene presence: without obstruction or gangrene Qualified Code(s): K42.9 - Umbilical hernia without obstruction or gangrene (2) COPD (chronic obstructive pulmonary disease) Code(s): J44.9 - CHRONIC OBSTRUCTIVE PULMONARY DISEASE, UNSPECIFIED (3) Coronary artery disease Code(s): I25.10 - ATHSCL HEART DISEASE OF [place] CORONARY ARTERY W/O ANG PCTRS (4) Diabetes mellitus Code(s): E11.9 - TYPE 2 DIABETES MELLITUS WITHOUT COMPLICATIONS Qualifiers: Diabetes mellitus type: type 2 Diabetes mellitus complication detail: with unspecified neuropathy (5) Pancreatitis Code(s): K85.9 - ACUTE PANCREATITIS, UNSPECIFIED * DO NOT USE * Qualifiers: Chronicity: acute Pancreatitis type: other (6) Sleep apnea Code(s): G47.30 - SLEEP APNEA, UNSPECIFIED (7) Tracheostomy in place Code(s): Z98.89 - OTHER SPECIFIED POSTPROCEDURAL STATES * DO NOT USE * Assessment/Plan Respiratory status is stable. S/P abdominal surgery x 2 Suggest: continue current treatment per surgeon Potassium replacement antibiotics.
[2017-09-14 00:07] LABS: ATYPICAL pANCA <1:20 titer (Neg:<1:20); C-ANCA <1:20 titer (Neg:<1:20); P-ANCA <1:20 titer (Neg:<1:20); PROTEINASE-3 ANTIBODY <3.5 U/mL (0.0-3.5)
[2017-09-14] MEDS: INSULIN SLIDING SCALE (NOVOLOG) 1 VIAL SQ SCH ×6 (01:45→22:32)
[2017-09-14] MEDS: PIPERACILLIN/TAZOB 4.5 GM 4.5 GM in SODIUM CHLORIDE 100 ML IVPB SCH ×2 (01:46→11:03)
[2017-09-14] MEDS: ENALAPRILAT DIHYDRATE 2.5 MG/2 ML VIAL IVPB SCH (03:26)
[2017-09-14] MEDS ORDERED: VANCOMYCIN 1,000 MG in SODIUM CHLORIDE 250 ML IVPB ONE (05:00)
[2017-09-14] MEDS: AMINO ACIDS 4.25%/D5W 1,000 ML IV SCH (05:49)
[2017-09-14] MEDS: AMITRIPTYLINE HCL 25 MG TABLET (FP) NGT SCH ×3 (06:20→22:17)
[2017-09-14] MEDS: ACETAMINOPHEN 1000 MG/100 ML VIAL (NON FORMULARY) IVPB PRN (06:20)
[2017-09-14] MEDS ORDERED: INSULIN DETEMIR 100 UNITS/ML MDV SQ SCH ×2 (07:00→19:42)
[2017-09-14 07:32] LABS: MAGNESIUM 2.2 mg/dL (1.8-2.4); PHOSPHOROUS 2.1 mg/dL (2.5-4.9)
[2017-09-14] MEDS: ALBUTEROL SO4 0.083% IH SOL 2.5 MG/3 ML VIAL.NEB. NEB SCH ×4 (07:40→20:48)
[2017-09-14] MEDS: LIPASE/PROTEASE/AMYLASE 36,000 UNIT CAPSULE PO SCH ×3 (08:53→17:57)
[2017-09-14] MEDS: TAMSULOSIN HCL 0.4 MG CAP.ER.24H (FP) PO SCH (08:54)
[2017-09-14 08:56] LABS: BASO % 0.3 % (0-2.0); EOS % 5.4 % (0-4.5); HEMATOCRIT 28.8 % (35.4-49); HEMOGLOBIN 9.7 GM/dL (11.7-16.9); LYMPH % 19.2 % (8-40); MCH 26.8 pg (25.7-33.7); MCHC 33.6 g/dl (32.0-35.9); MEAN CELL VOLUME 79.9 fl (80-96); MEAN PLT VOLUME 7.8 fl (7.5-11.1); MONO % 9.1 % (3.8-10.2); PLATELET COUNT 320 K/MM3 (134-434); WHITE BLOOD COUNT 12.5 K/mm3 (4.0-10.0)
[2017-09-14] MEDS: HYDROmorphone *PCA* 6MG/30ML DISP.SYRIN PCA SCH (09:04)
[2017-09-14 09:17] LABS: ANION GAP 11 (8-16); BLOOD UREA NITROGEN 21 mg/dL (7-18); CALCIUM 8.1 mg/dL (8.5-10.1); CHLORIDE 101 mmol/L (98-107); CO2 22 mmol/L (21-32); CREATININE 1.2 mg/dL (0.7-1.3); GLUCOSE,RANDOM 286 mg/dL (74-106); POTASSIUM 3.9 mmol/L (3.5-5.1); SODIUM 134 mmol/L (136-145)
--- NOTE | 2017-09-14 10:20 | PN ---
Progress Note (short form) - Note Progress Note: Chief Complaint: Events noted, notes reviewed, complaining of persistent abdominal discomfort, denies any chest pain or dyspnea, oral intake is resumed History of Present Illness: Seen and examined on telemetry. Events noted, notes reviewed, complaining of persistent abdominal discomfort, denies any chest pain or dyspnea, oral intake is resumed Post day # 4 re-op for incarcerated umbilical hernia, extensive lysis of adhesions, small bowel resection, open repair of umbilical hernia - Current Medication List Current Medications Acetaminophen (Ofirmev Injection -) 1,000 mg IVPB Q6H PRN PRN Reason: PAIN Acetaminophen (Ofirmev Injection -) 1,000 mg IVPB ONCE ONE Stop: 09/14/17 11:01 Albuterol Sulfate (Ventolin 0.083% Nebulizer Soln -) 1 amp NEB RQID [facility] Last Admin: 09/14/17 07:40 Dose: Not Given Amitriptyline HCl (Elavil -) 25 mg NGT TID [facility] Last Admin: 09/14/17 06:20 Dose: 25 mg Aspirin (Ecotrin -) 81 mg PO DAILY [facility] Last Admin: 09/13/17 10:41 Dose: 81 mg Budesonide/Formoterol Fumarate (Symbicort 160/4.5mcg -) 1 puff IH BID [facility] Last Admin: 09/13/17 22:55 Dose: 1 puff Clopidogrel Bisulfate (Plavix -) 75 mg NGT DAILY [facility] Last Admin: 09/13/17 10:41 Dose: 75 mg Enalaprilat (Vasotec Injection -) 2.5 mg IVPB Q6H-IV [facility] Last Admin: 09/14/17 03:26 Dose: 2.5 mg Fat Emulsion Intravenous (Intralipid -) 250 ml IV DAILY@2200 [facility] Last Admin: 09/13/17 22:52 Dose: 250 ml Finasteride (Proscar -) 5 mg PO DAILY [facility] Last Admin: 09/13/17 10:41 Dose: 5 mg Heparin Sodium (Porcine) (Heparin -) 5,000 unit SQ BID [facility] Last Admin: 09/13/17 21:39 Dose: 5,000 unit Hydromorphone HCl (Dilaudid Brain Picker -) 6 mg ENGINEER TECHNICAL STAFF ENGINEER TECHNICAL STAFF [facility] PRN Reason: Protocol Last Admin: 09/14/17 09:04 Dose: 6 mg IV Flush (Picc Line Flush) 8 ml IVPUSH PRN PRN PRN Reason: Protocol Last Admin: 09/11/17 01:31 Dose: 8 ml Dextrose/Sodium Chloride (D5-1/2ns+40 Meq Kcl -) 40 meq in 1,000 mls @ 83 mls/ hr IV [facility] Last Admin: 09/13/17 17:48 Dose: Not Given Metronidazole (Flagyl 500mg Premixed Ivpb -) 500 mg in 100 mls @ 100 mls/hr IVPB Q8H-IV [facility] Last Admin: 09/14/17 01:46 Dose: 100 mls/hr Amino Acids (Clinimix -) 1,000 mls @ 84 mls/hr IV Q12H [facility] Last Admin: 09/14/17 05:49 Dose: 84 mls/hr Vancomycin HCl 1,000 mg/ (Sodium Chloride) 250 mls @ 166.667 mls/hr IVPB BID@ 0400,1600 [facility] Piperacillin Sod/Tazobactam (Sod 4.5 gm/ Sodium Chloride) 100 mls @ 200 mls/hr IVPB Q8H-IV [facility] PRN Reason: Protocol Piperacillin Sod/Tazobactam (Sod 4.5 gm/ Sodium Chloride) 100 mls @ 200 mls/hr IVPB Q8H-IV [facility] Stop: 09/14/17 10:29 Last Admin: 09/14/17 01:46 Dose: 200 mls/hr Insulin Aspart (Novolog Vial Sliding Scale -) 1 vial SQ Q4HPO [facility] PRN Reason: Protocol Last Admin: 09/14/17 06:21 Dose: 6 units Insulin Detemir (Levemir Vial) 28 units SQ HS [facility] Insulin Detemir (Levemir Vial) 20 units SQ AM [facility] Metoprolol Tartrate (Lopressor Injection -) 5 mg IVPUSH Q4H PRN PRN Reason: HYPERTENSION Last Admin: 09/13/17 06:01 Dose: 5 mg Montelukast Sodium (Singulair -) 10 mg PO HS [facility] Last Admin: 09/13/17 21:39 Dose: 10 mg Multivitamins/Minerals/Vitamin C (Tab-A-Vit -) 1 tab PO DAILY [facility] Last Admin: 09/13/17 16:24 Dose: 1 tab Ondansetron HCl (Zofran Injection) 4 mg IVPUSH Q4H PRN PRN Reason: NAUSEA AND/OR VOMITING Last Admin: 09/13/17 21:54 Dose: 4 mg Pancrelipase (Creon Dr 36,000 Units Capsule) 1 cap PO TIDCM [facility] Last Admin: 09/13/17 18:29 Dose: Not Given Pantoprazole Sodium (Protonix Iv) 40 mg IVPUSH DAILY [facility] Last Admin: 09/13/17 09:39 Dose: 40 mg Tamsulosin HCl (Flomax -) 0.4 mg PO DAILY@0830 [facility] Last Admin: 09/13/17 09:28 Dose: Not Given Tiotropium [place] (Spiriva -) 1 puff IH DAILY [facility] Last Admin: 09/13/17 10:54 Dose: Not Given Review of Systems Cardiovascular: As noted above Respiratory: denies: denies: Cough or Sputum Production Gastrointestinal: denies: Nausea, Vomiting, Diarrhea, Constipation or Abdominal Discomfort Musculoskeletal: No Symptoms Reported Endocrine: No Symptoms Reported - Objective Vital Signs: Last Vital Signs Temp Pulse Resp BP Pulse Ox 100.4 F H 101 H 18 141/83 100 09/14/17 06:15 09/14/17 09:04 09/14/17 09:04 09/14/17 09:04 09/13/17 21:00 Intake & Output 09/11/17 09/12/17 09/13/17 09/14/17 23:59 23:59 23:59 23:59 Intake Total 4070 1330 3160 Output Total 750 450 500 570 Balance 3320 880 2660 -570 Weight 246 lb 6.4 oz 241 lb 3.2 oz 247 lb 3.2 oz Constitutional: No Distress, Calm Neck: Supple Negative JVD Cardiovascular: S1 S2 Regular Rate and Rhythm Respiratory: Diminished Breath Sounds at the Bases Gastrointestinal: Hypo-active Bowel Sounds Ext: No Edema Labs: CBC, BMP 09/14/17 08:00 09/14/17 08:00 Hepatic Panel Total Bilirubin 0.8 mg/dL (0.2-1.0) 09/11/17 06:50 AST 60 U/L (15-37) H 09/11/17 06:50 ALT 93 U/L (12-78) H D 09/11/17 06:50 Alkaline Phosphatase 108 U/L (45-117) 09/11/17 06:50 Albumin 2.4 g/dl (3.4-5.0) L 09/11/17 06:50 INR, PTT INR 1.22 (0.82-1.09) H 08/21/17 06:55 Assessment/Plan ASSESSMENT: 1. Post umbilical hernia repair post re-op 2. History of chronic pancreatitis 3. Chronic atypical chest pain syndrome, resolved 4. CAD post NV, post PCI (stents), angina pectoris 5. Diastolic LV dysfunction with chronic class 0-I NYHA classification LV failure, compensated/euvolemic 6. HTN/HCVD 7. DM 8. Hyperlipidemia 9. OSAS 10. COPD/Asthma 11. Acute on CKD PLAN: 1. Continue Lopressor but switch to PO/NGT 2. Resume Altace and D/C IV Vasotec 3. Continue Plavix with caution 4. If BP remains elevated resume Norvasc 5. Pain management as per the primary team 6. Antibiotics as per the primary team Judy Ovalles MD
[2017-09-14] MEDS: MULTIVITAMINS (DAILY MVI) TABLET (FP) PO SCH (10:23)
[2017-09-14] MEDS: BUDESONIDE/FORMETEROL FUMARATE 160/4.5 mcg INHALER IH SCH ×2 (10:23→22:05)
[2017-09-14] MEDS ORDERED: ACETAMINOPHEN 1000 MG/100 ML VIAL (NON FORMULARY) IVPB ONE (11:00)
[2017-09-14] MEDS: CLOPIDOGREL BISULFATE 75 MG TABLET (FP) NGT SCH (11:03)
[2017-09-14] MEDS: PANTOPRAZOLE SODIUM 40 MG VIAL IVPUSH SCH (11:03)
--- NOTE | 2017-09-14 11:15 | PN ---
Progress Note (short form) - Note Progress Note: Patient sitting in a chair. He continues to recover from his GI surgery. We spoke briefly about his spinal pathology and both agree that he is not fit to undergo elective spinal surgery at this time, however, his severe and chronic pain will be addressed once he has recovered sufficiently. All questions answered.
[2017-09-14] MEDS: HEPARIN NA (PORCINE) 5,000 UNITS/ML 1ML VIAL SQ SCH ×2 (11:29→22:17)
[2017-09-14] MEDS: ASPIRIN COATED 81 MG TABLET.EC PO SCH (11:58)
--- NOTE | 2017-09-14 12:37 | PATH ---
Surgical Pathology Report Patient Name: HERBERT COTTON [facility]. Rec. #: [id number] /Age/Gender: 1955 (Age: 61) / M Account: [id number] Location: 4 W TELEMETRY U Taken: 09/10/2017 Received: 09/13/2017 Reported: 09/14/2017 Physicians: Brenton Nayak M.D. Specimen(s) Received SMALL BOWEL Clinical History Incarcerated umbilical hernia Final Diagnosis SMALL BOWEL, RESECTION: SEGMENT OF SMALL BOWEL WITH DENSE SEROSAL ADHESIONS AND SUBSEROSAL FAT NECROSIS. SURGICAL MARGINS ARE VIABLE. Electronically Signed Selina Rice M.D. Gross Description Received in formalin labeled "small bowel," is a 15.5 cm in length portion of small bowel with 2 stapled mucosal margins and moderate attached fat. The serosa is diaz-rivera with focal adhesions and inflammation. Sectioning reveals a focally dilated portion of lumen with a thin wall and flattened folds in the area of the serosal adhesions. No mucosal masses are identified. Sectioning reveals fibrosis and fat necrosis surrounding this area of the small bowel. Also received within the same container is a 5.0 x 4.2 x 1.0 cm aggregate of diaz fragments of soft tissue. Sectioning reveals fibrosis and fat necrosis. Hogshead Opener sections are submitted in 9 cassettes as follows: 5-7-[id number] stapled mucosal margins; 2-2-nfgvccea from serosal adhesions; 7-uninvolved small bowel; 4-0-xpglolfshj received tissue fragments. /09/13/2017 saudi09/13/2017
[2017-09-14] MEDS: RAMIPRIL 5 MG CAPSULE (FP) NGT SCH (13:12)
[2017-09-14] MEDS: METOPROLOL TARTRATE 25 MG TABLET (FP) NGT SCH ×3 (13:13→22:17)
--- NOTE | 2017-09-14 13:43 | PN ---
Progress Note (short form) - Note Progress Note: POD #4 - s/p hernia repair/small bowel resection. VSS. Pt. resting comfortably in bed without complaints. On dilaudid MORTAR MAN for postop pain management. Pt. states pain control has been good and desires another day on the MORTAR MAN. Will keep MORTAR MAN for now and reevaluate tomorrow. Continue current care.
--- NOTE | 2017-09-14 14:44 | PN ---
Progress Note (short form) - Note Progress Note: no complaints still with NGT 2 bms s/p ex lap for incarcerated umbilical hernia- s/p SBO resection lysis adhrsion and hernia repair fevers resolved Vital Signs Period Temp Pulse Resp BP Sys/Gates Pulse Ox Last 24 Hr 98.5 F-100.4 F 90-104 18-18 132-154/70-87 100-100 +NGT cor-rrr lungs decreased bs at bases abd soft, dressing change by surgeon just done ext no edema cxray no infiltrate CBC, BMP 09/14/17 08:00 09/14/17 08:00 Microbiology 09/13/17 11:00 Sputum - Expectorated Sputum Culture - Preliminary NORMAL RESPIRATORY NICOLE 09/12/17 20:30 Urine - Urine Clean Catch Urine Culture - Final NO GROWTH OBTAINED 09/12/17 14:10 Blood - Peripheral Venous Blood Culture - Preliminary NO GROWTH OBTAINED AFTER 24 HOURS, INCUBATION TO CONTINUE FOR 4 DAYS. 09/12/17 15:30 Blood - Peripheral Venous Blood Culture - Preliminary NO GROWTH OBTAINED AFTER 24 HOURS, INCUBATION TO CONTINUE FOR 4 DAYS. a/p post op fever resolving post op day #4 started on vanco/zosyn yesterday continue zosyn another 24 hours d/c vancomycin d/w Dr Cabrera
[2017-09-14] MEDS ORDERED: PIPERACILLIN/TAZOB 4.5 GM/100 ML PRE-DOCKED IVPB SCH (14:45)
[2017-09-14] MEDS: FINASTERIDE 5 MG TABLET (FP) PO SCH (14:58)
[2017-09-14] MEDS ORDERED: SODIUM CHLORIDE IVPB SCH (16:00)
[2017-09-14] MEDS ORDERED: POTASSIUM PHOSPHATE IVPB SCH (16:00)
[2017-09-14] MEDS ORDERED: POTASSIUM CHLORIDE IVPB SCH (16:00)
[2017-09-14] MEDS ORDERED: [UNRECOGNIZED DRUG - OTHER] IVPB SCH (16:00)
--- NOTE | 2017-09-14 16:02 | PN ---
Progress Note (short form) - Note Progress Note: No acute events +BM x 2 Minimal NG tube output Pain controlled Vital Signs Period Temp Pulse Resp BP Sys/Gates Pulse Ox Last 24 Hr 98.5 F-100.4 F 90-104 16-18 132-151/70-87 100-100 Abd soft, wound c/d/i, dressing changed CBC, BMP 09/14/17 08:00 09/14/17 08:00 Ambulate Antibiotics per ID Plan for NG tube removal in am Abdominal binder Problem List - Problems (1) Umbilical hernia Code(s): K42.9 - UMBILICAL HERNIA WITHOUT OBSTRUCTION OR GANGRENE Qualifiers: Obstruction and gangrene presence: without obstruction or gangrene Qualified Code(s): K42.9 - Umbilical hernia without obstruction or gangrene
--- NOTE | 2017-09-14 16:32 | PN ---
Progress Note, Physician Chief Complaint: AWAKE WITH DRESSING CHANE +BM X 3 - Current Medication List Current Medications: Active Medications Acetaminophen (Ofirmev Injection -) 1,000 mg IVPB Q6H PRN PRN Reason: PAIN Albuterol Sulfate (Ventolin 0.083% Nebulizer Soln -) 1 amp NEB RQID [facility] Last Admin: 09/14/17 11:35 Dose: Not Given Amitriptyline HCl (Elavil -) 25 mg NGT TID [facility] Last Admin: 09/14/17 14:22 Dose: 25 mg Aspirin (Ecotrin -) 81 mg PO DAILY [facility] Last Admin: 09/14/17 11:58 Dose: Not Given Budesonide/Formoterol Fumarate (Symbicort 160/4.5mcg -) 1 puff IH BID [facility] Last Admin: 09/13/17 22:55 Dose: 1 puff Clopidogrel Bisulfate (Plavix -) 75 mg NGT DAILY [facility] Last Admin: 09/14/17 11:03 Dose: 75 mg Finasteride (Proscar -) 5 mg PO DAILY [facility] Last Admin: 09/14/17 14:58 Dose: Not Given Heparin Sodium (Porcine) (Heparin -) 5,000 unit SQ BID [facility] Last Admin: 09/14/17 11:29 Dose: 5,000 unit Hydromorphone HCl (Dilaudid Vp [employer] -) 6 mg SALESPERSON WOMEN'S DRESSES SALESPERSON WOMEN'S DRESSES MARK PRN Reason: Protocol Last Admin: 09/14/17 09:04 Dose: 6 mg IV Flush (Picc Line Flush) 8 ml IVPUSH PRN PRN PRN Reason: Protocol Last Admin: 09/11/17 01:31 Dose: 8 ml Metronidazole (Flagyl 500mg Premixed Ivpb -) 500 mg in 100 mls @ 100 mls/hr IVPB Q8H-IV [facility] Last Admin: 09/14/17 11:04 Dose: 100 mls/hr Potassium Phosphate 30 mm/Potassium Chloride 30 meq/Sodium Chloride 50 meq/ Calcium Gluconate 1,000 mg/Magnesium Sulfate 2 gm/ Folic Acid 1 mg/ Multivitamins/Minerals 10 ml/ Sterile Water/Amino Acids/ Dextrose 1,500 mls @ 62.5 mls/hr IVPB DAILY@1600 [facility] Piperacillin Sod/Tazobactam (Sod 4.5 gm/ Dextrose) 100 mls @ 200 mls/hr IVPB Q8H [facility] Fat Emulsion Intravenous (Intralipid -) 250 mls @ 20.833 mls/hr IV DAILY@2200 [facility] Insulin Aspart (Novolog Vial Sliding Scale -) 1 vial SQ Q4HPO [facility] PRN Reason: Protocol Last Admin: 09/14/17 15:31 Dose: 6 units Insulin Detemir (Levemir Vial) 28 units SQ HS [facility] Insulin Detemir (Levemir Vial) 20 units SQ AM [facility] Metoprolol Tartrate (Lopressor -) 25 mg NGT Q6H [facility] Last Admin: 09/14/17 13:13 Dose: 25 mg Montelukast Sodium (Singulair -) 10 mg PO HS [facility] Last Admin: 09/13/17 21:39 Dose: 10 mg Multivitamins/Minerals/Vitamin C (Tab-A-Vit -) 1 tab PO DAILY [facility] Last Admin: 09/13/17 16:24 Dose: 1 tab Ondansetron HCl (Zofran Injection) 4 mg IVPUSH Q4H PRN PRN Reason: NAUSEA AND/OR VOMITING Last Admin: 09/13/17 21:54 Dose: 4 mg Pancrelipase (Creon Dr 36,000 Units Capsule) 1 cap PO TIDCM [facility] Last Admin: 09/14/17 14:54 Dose: Not Given Pantoprazole Sodium (Protonix Iv) 40 mg IVPUSH DAILY [facility] Last Admin: 09/14/17 11:03 Dose: 40 mg Ramipril (Altace -) 5 mg NGT DAILY [facility] Last Admin: 09/14/17 13:12 Dose: 5 mg Tamsulosin HCl (Flomax -) 0.4 mg PO DAILY@0830 [facility] Last Admin: 09/14/17 08:54 Dose: Not Given Tiotropium [place] (Spiriva -) 1 puff IH DAILY [facility] Last Admin: 09/13/17 10:54 Dose: Not Given - Objective Vital Signs: Vital Signs Temperature 99.9 F H 09/14/17 14:00 Pulse Rate 99 H 09/14/17 14:00 Respiratory Rate 16 09/14/17 11:04 Blood Pressure 151/86 09/14/17 14:00 O2 Sat by Pulse Oximetry (%) 100 09/14/17 09:00 Constitutional: Yes: Mild Distress Eyes: Yes: WNL HENT: Yes: Other Cardiovascular: Yes: WNL Respiratory: Yes: WNL Gastrointestinal: Yes: Tenderness Genitourinary: Yes: Incontinence Musculoskeletal: Yes: Muscle Weakness Edema: Yes Peripheral Pulses WNL: Yes Integumentary: Yes: Other Wound/Incision: Yes: Dressing Dry and Intact Neurological: Yes: WNL ...Motor Strength: WNL Psychiatric: Yes: WNL Labs: CBC, BMP 09/14/17 08:00 09/14/17 08:00 INR, PTT INR 1.22 (0.82-1.09) H 08/21/17 06:55 Problem List - Problems (1) Umbilical hernia Code(s): K42.9 - UMBILICAL HERNIA WITHOUT OBSTRUCTION OR GANGRENE Qualifiers: Obstruction and gangrene presence: without obstruction or gangrene Qualified Code(s): K42.9 - Umbilical hernia without obstruction or gangrene (2) Chest pain Code(s): R07.9 - CHEST PAIN, UNSPECIFIED Qualifiers: Chest pain type: unspecified Qualified Code(s): R07.9 - Chest pain, unspecified (3) Chronic pancreatitis Code(s): K86.1 - OTHER CHRONIC PANCREATITIS Qualifiers: Pancreatitis type: unspecified pancreatitis type Qualified Code(s): K86.1 - Other chronic pancreatitis (4) 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 Code(s): E10.8 - TYPE 1 DIABETES MELLITUS WITH UNSPECIFIED COMPLICATIONS (5) Pneumonia Code(s): J18.9 - PNEUMONIA, UNSPECIFIED ORGANISM Qualifiers: Pneumonia type: due to unspecified organism Laterality: right Lung location: unspecified part of lung Qualified Code(s): J18.9 - Pneumonia, unspecified organism (6) ASHD (arteriosclerotic heart disease) Code(s): I25.10 - ATHSCL HEART DISEASE OF [place] CORONARY ARTERY W/O ANG PCTRS (7) Abdominal pain Code(s): R10.9 - UNSPECIFIED ABDOMINAL PAIN Qualifiers: Abdominal location: upper abdomen, unspecified Qualified Code(s): R10.10 - Upper abdominal pain, unspecified (8) Type 2 diabetes mellitus with diabetic neuropathy Code(s): E11.40 - TYPE 2 DIABETES MELLITUS WITH DIABETIC NEUROPATHY, UNSP (9) H/O umbilical hernia repair Code(s): Z98.890 - OTHER SPECIFIED POSTPROCEDURAL STATES; Z87.19 - PERSONAL HISTORY OF OTHER DISEASES OF THE DIGESTIVE SYSTEM (10) SBO (small bowel obstruction) Code(s): K56.609 - UNSP INTESTNL OBST, UNSP TO PARTIAL VERSUS COMPLETE OBST (11) Anxiety Code(s): F41.9 - ANXIETY DISORDER, UNSPECIFIED (12) Arrhythmia Code(s): I49.9 - CARDIAC ARRHYTHMIA, UNSPECIFIED (13) Cervical disc disease Code(s): M50.90 - CERVICAL DISC DISORDER, UNSP, UNSPECIFIED CERVICAL REGION (14) Cervical radiculopathy Code(s): M54.12 - RADICULOPATHY, CERVICAL REGION (15) Cervical vertebral fusion Code(s): M43.22 - FUSION OF SPINE, CERVICAL REGION (16) Chronic back pain Code(s): M54.9 - DORSALGIA, UNSPECIFIED; G89.29 - OTHER CHRONIC PAIN Qualifiers: (17) Chronic pain following surgery or procedure Code(s): G89.28 - OTHER CHRONIC POSTPROCEDURAL PAIN (18) H/O cervical spine surgery Code(s): Z98.89 - OTHER SPECIFIED POSTPROCEDURAL STATES * DO NOT USE * Assessment/Plan BM + 3 EPISODES CAN D/C NGT TOMORROW MORNING SURGERY FOLLOW UP CHECK LABS OOB TO CHAIR PAIN CONTROL ADVANCE DIET SLOWLY
--- NOTE | 2017-09-14 16:48 | PN ---
Progress Note (short form) - Note Progress Note: Renal follow up for Hypokalemia/TPN Pt seen and examined at the bedside has abd pain no sob, chest pain remains NPO Vital Signs Temperature 99.9 F H 09/14/17 14:00 Pulse Rate 99 H 09/14/17 14:00 Respiratory Rate 16 09/14/17 11:04 Blood Pressure 151/86 09/14/17 14:00 O2 Sat by Pulse Oximetry (%) 100 09/14/17 09:00 Intake & Output 09/11/17 09/12/17 09/13/17 09/14/17 23:59 23:59 23:59 23:59 Intake Total 4070 1330 3160 200 Output Total 750 893 520 7956 Balance 3320 880 2660 -1160 Weight 111.765 kg 109.406 kg 112.128 kg NAD awake and alert + abd tenderness No LE edema CBC, BMP 09/14/17 08:00 09/14/17 08:00 Current Medications Acetaminophen (Ofirmev Injection -) 1,000 mg IVPB Q6H PRN PRN Reason: PAIN Albuterol Sulfate (Ventolin 0.083% Nebulizer Soln -) 1 amp NEB RQID [facility] Last Admin: 09/14/17 11:35 Dose: Not Given Amitriptyline HCl (Elavil -) 25 mg NGT TID [facility] Last Admin: 09/14/17 14:22 Dose: 25 mg Aspirin (Ecotrin -) 81 mg PO DAILY [facility] Last Admin: 09/14/17 11:58 Dose: Not Given Budesonide/Formoterol Fumarate (Symbicort 160/4.5mcg -) 1 puff IH BID [facility] Last Admin: 09/13/17 22:55 Dose: 1 puff Clopidogrel Bisulfate (Plavix -) 75 mg NGT DAILY [facility] Last Admin: 09/14/17 11:03 Dose: 75 mg Finasteride (Proscar -) 5 mg PO DAILY [facility] Last Admin: 09/14/17 14:58 Dose: Not Given Heparin Sodium (Porcine) (Heparin -) 5,000 unit SQ BID [facility] Last Admin: 09/14/17 11:29 Dose: 5,000 unit Hydromorphone HCl (Dilaudid Meatcutter -) 6 mg BUS VAN DRIVER BUS VAN DRIVER [facility] PRN Reason: Protocol Last Admin: 09/14/17 09:04 Dose: 6 mg IV Flush (Picc Line Flush) 8 ml IVPUSH PRN PRN PRN Reason: Protocol Last Admin: 09/11/17 01:31 Dose: 8 ml Metronidazole (Flagyl 500mg Premixed Ivpb -) 500 mg in 100 mls @ 100 mls/hr IVPB Q8H-IV MARK Last Admin: 09/14/17 11:04 Dose: 100 mls/hr Potassium Phosphate 30 mm/Potassium Chloride 30 meq/Sodium Chloride 50 meq/ Calcium Gluconate 1,000 mg/Magnesium Sulfate 2 gm/ Folic Acid 1 mg/ Multivitamins/Minerals 10 ml/ Sterile Water/Amino Acids/ Dextrose 1,500 mls @ 62.5 mls/hr IVPB DAILY@1600 [facility] Piperacillin Sod/Tazobactam (Sod 4.5 gm/ Dextrose) 100 mls @ 200 mls/hr IVPB Q8H [facility] Fat Emulsion Intravenous (Intralipid -) 250 mls @ 20.833 mls/hr IV DAILY@2200 [facility] Insulin Aspart (Novolog Vial Sliding Scale -) 1 vial SQ Q4HPO [facility] PRN Reason: Protocol Last Admin: 09/14/17 15:31 Dose: 6 units Insulin Detemir (Levemir Vial) 28 units SQ HS [facility] Insulin Detemir (Levemir Vial) 20 units SQ AM [facility] Metoprolol Tartrate (Lopressor -) 25 mg NGT Q6H [facility] Last Admin: 09/14/17 13:13 Dose: 25 mg Montelukast Sodium (Singulair -) 10 mg PO HS [facility] Last Admin: 09/13/17 21:39 Dose: 10 mg Multivitamins/Minerals/Vitamin C (Tab-A-Vit -) 1 tab PO DAILY [facility] Last Admin: 09/13/17 16:24 Dose: 1 tab Ondansetron HCl (Zofran Injection) 4 mg IVPUSH Q4H PRN PRN Reason: NAUSEA AND/OR VOMITING Last Admin: 09/13/17 21:54 Dose: 4 mg Pancrelipase (Creon Dr 36,000 Units Capsule) 1 cap PO TIDCM [facility] Last Admin: 09/14/17 14:54 Dose: Not Given Pantoprazole Sodium (Protonix Iv) 40 mg IVPUSH DAILY [facility] Last Admin: 09/14/17 11:03 Dose: 40 mg Ramipril (Altace -) 5 mg NGT DAILY [facility] Last Admin: 09/14/17 13:12 Dose: 5 mg Tamsulosin HCl (Flomax -) 0.4 mg PO DAILY@0830 [facility] Last Admin: 09/14/17 08:54 Dose: Not Given Tiotropium [place] (Spiriva -) 1 puff IH DAILY [facility] Last Admin: 09/13/17 10:54 Dose: Not Given 61 year old gentleman with PMhx of CAD s/p stents and CABG, Chronic Pancreatitis , Hypertension, HLD who presented with abd pain and now s/p open resection of incarcerated umbilical hernia with ileus and prolonged NPO status. #s/p open resection of incarcerated hernia with prolonged NPO status management as per surgery TPN solution is now available will start TPN with additional NaCl, Kcl, Phos, Lipids trend CMP daily #Hypertension on oral ramipirl Thank you Az Nelson DO
[2017-09-14] MEDS: PIPERACILLIN/TAZOB 4.5 GM 4.5 GM in DEXTROSE 5%-WATER - 100 ML IVPB SCH (17:22)
[2017-09-14] MEDS: MONTELUKAST NA 10 MG TABLET PO SCH (22:17)
[2017-09-14] MEDS: FAT EMULSIONS 250 ML IV SCH (22:22)
[2017-09-14] MEDS: INSULIN DETEMIR 100 UNITS/ML MDV SQ SCH (22:29)
[2017-09-15] MEDS: PIPERACILLIN/TAZOB 4.5 GM 4.5 GM in DEXTROSE 5%-WATER - 100 ML IVPB SCH (00:40)
[2017-09-15] MEDS: METOPROLOL TARTRATE 25 MG TABLET (FP) NGT SCH ×4 (04:38→21:41)
[2017-09-15] MEDS: INSULIN SLIDING SCALE (NOVOLOG) 1 VIAL SQ SCH ×6 (06:37→21:41)
[2017-09-15] MEDS: AMITRIPTYLINE HCL 25 MG TABLET (FP) NGT SCH ×3 (06:44→21:41)
[2017-09-15 07:20] LABS: MAGNESIUM 2.3 mg/dL (1.8-2.4); PHOSPHOROUS 1.8 mg/dL (2.5-4.9)
[2017-09-15] MEDS: LIPASE/PROTEASE/AMYLASE 36,000 UNIT CAPSULE PO SCH ×3 (08:00→18:44)
[2017-09-15] MEDS: ALBUTEROL SO4 0.083% IH SOL 2.5 MG/3 ML VIAL.NEB. NEB SCH ×3 (08:20→16:44)
[2017-09-15] MEDS: ONDANSETRON 4 MG/2 ML VIAL IVPUSH PRN ×2 (08:24→21:41)
[2017-09-15 08:40] LABS: BASO % 0.8 % (0-2.0); EOS % 5.9 % (0-4.5); HEMATOCRIT 28.9 % (35.4-49); HEMOGLOBIN 9.7 GM/dL (11.7-16.9); LYMPH % 21.8 % (8-40); MCH 26.9 pg (25.7-33.7); MCHC 33.5 g/dl (32.0-35.9); MEAN CELL VOLUME 80.4 fl (80-96); MEAN PLT VOLUME 8.2 fl (7.5-11.1); MONO % 9.6 % (3.8-10.2); NEUT % 61.9 % (42.8-82.8); PLATELET COUNT 357 K/MM3 (134-434); RDW 14.9 % (11.9-15.9); WHITE BLOOD COUNT 10.9 K/mm3 (4.0-10.0)
--- NOTE | 2017-09-15 08:54 | PN ---
Progress Note (short form) - Note Progress Note: POD #5 - s/p hernia repair/small bowel resection. VSS. Pt. resting comfortably in bed without complaints. On dilaudid DIVISION MANAGER for postop pain management. Pt. states pain control has been good. NGT still in place. Will continue DIVISION MANAGER until NGT is removed.
[2017-09-15] MEDS: HYDROmorphone *PCA* 6MG/30ML DISP.SYRIN PCA SCH (09:00)
--- NOTE | 2017-09-15 09:16 | PN ---
Progress Note (short form) - Note Progress Note: no complaints still with NGT 3 bms overnight s/p ex lap for incarcerated umbilical hernia- s/p SBO resection lysis adhrsion and hernia repair fevers resolved Vital Signs Period Temp Pulse Resp BP Sys/Gates Pulse Ox Last 24 Hr 98.4 F-99.9 F 86-101 16-20 134-151/48-86 100 cor-rrr lungs clear ab soft, dressing in place- dressing change per surgery ext no edema cxray no infiltrate CBC, BMP 09/15/17 05:05 09/15/17 05:05 Microbiology 09/13/17 11:00 Sputum - Expectorated Gram Stain - Final 09/13/17 11:00 Sputum - Expectorated Sputum Culture - Preliminary Diphtheroid/Corynebacterium 09/12/17 14:10 Blood - Peripheral Venous Blood Culture - Preliminary NO GROWTH OBTAINED AFTER 48 HOURS, INCUBATION TO CONTINUE FOR 3 DAYS. 09/12/17 15:30 Blood - Peripheral Venous Blood Culture - Preliminary NO GROWTH OBTAINED AFTER 48 HOURS, INCUBATION TO CONTINUE FOR 3 DAYS. 09/12/17 20:30 Urine - Urine Clean Catch Urine Culture - Final NO GROWTH OBTAINED 08/18/17 20:20 Blood - Peripheral Venous Blood Culture - Final NO GROWTH AFTER 5 DAYS INCUBATION 08/18/17 20:20 Blood - Peripheral Venous Blood Culture - Final NO GROWTH AFTER 5 DAYS INCUBATION 08/20/17 10:00 Sputum - Expectorated Gram Stain - Final 08/20/17 10:00 Sputum - Expectorated Sputum Culture - Final NORMAL RESPIRATORY NICOLE 08/21/17 19:55 Urine - Urine Clean Catch Urine Culture - Final NO GROWTH OBTAINED 08/20/17 08:00 Urine - Urine Clean Catch Urine Culture - Final NO GROWTH OBTAINED 08/20/17 08:00 Urine - Urine Clean Catch Legionella Antigen - Final 08/20/17 08:00 Urine - Urine Clean Catch Streptococcus pneumoniae Antigen ( M - Final 08/19/17 23:30 Nasopharyngeal Swab Influenza Types A,B Antigen (MARCUS) - Final 08/19/17 23:30 Nasopharyngeal Swab - Final a/p post op fever resolved, cultures negative post op day #5 d/c zosyn f/u with surgery
[2017-09-15 09:29] LABS: ANION GAP 10 (8-16); BLOOD UREA NITROGEN 20 mg/dL (7-18); CHLORIDE 102 mmol/L (98-107); CO2 20 mmol/L (21-32); CREATININE 1.1 mg/dL (0.7-1.3); POTASSIUM 4.1 mmol/L (3.5-5.1); SODIUM 132 mmol/L (136-145)
--- NOTE | 2017-09-15 09:52 | PN ---
Progress Note, Physician Chief Complaint: AWAKE BM AGAIN TODAY MINMAL DRAINAGE FROM NGT ORDERED NURSE TO REMOVE AND START ICE CHIPS PATIENT HAPPY - Current Medication List Current Medications: Active Medications Acetaminophen (Ofirmev Injection -) 1,000 mg IVPB Q6H PRN PRN Reason: PAIN Albuterol Sulfate (Ventolin 0.083% Nebulizer Soln -) 1 amp NEB RQID [facility] Last Admin: 09/15/17 08:20 Dose: Not Given Amitriptyline HCl (Elavil -) 25 mg NGT TID [facility] Last Admin: 09/15/17 06:44 Dose: 25 mg Aspirin (Ecotrin -) 81 mg PO DAILY [facility] Last Admin: 09/14/17 11:58 Dose: Not Given Budesonide/Formoterol Fumarate (Symbicort 160/4.5mcg -) 1 puff IH BID [facility] Last Admin: 09/14/17 22:05 Dose: 1 puff Clopidogrel Bisulfate (Plavix -) 75 mg NGT DAILY [facility] Last Admin: 09/14/17 11:03 Dose: 75 mg Finasteride (Proscar -) 5 mg PO DAILY [facility] Last Admin: 09/14/17 14:58 Dose: Not Given Heparin Sodium (Porcine) (Heparin -) 5,000 unit SQ BID [facility] Last Admin: 09/14/17 22:17 Dose: 5,000 unit Hydromorphone HCl (Dilaudid Optical Design Engineer -) 6 mg HOME CARE MANAGER RN HOME CARE MANAGER RN MARK PRN Reason: Protocol Last Admin: 09/14/17 09:04 Dose: 6 mg IV Flush (Picc Line Flush) 8 ml IVPUSH PRN PRN PRN Reason: Protocol Last Admin: 09/11/17 01:31 Dose: 8 ml Potassium Phosphate 30 mm/Potassium Chloride 30 meq/Sodium Chloride 50 meq/ Calcium Gluconate 1,000 mg/Magnesium Sulfate 2 gm/ Folic Acid 1 mg/ Multivitamins/Minerals 10 ml/ Sterile Water/Amino Acids/ Dextrose 1,500 mls @ 62.5 mls/hr IVPB DAILY@1600 [facility] Last Admin: 09/14/17 17:00 Dose: 62.5 mls/hr Fat Emulsion Intravenous (Intralipid -) 250 mls @ 20.833 mls/hr IV DAILY@2200 [facility] Last Admin: 09/14/17 22:22 Dose: 20.833 mls/hr Insulin Aspart (Novolog Vial Sliding Scale -) 1 vial SQ Q4HPO [facility] PRN Reason: Protocol Last Admin: 09/15/17 06:43 Dose: 8 units Insulin Detemir (Levemir Vial) 28 units SQ HS [facility] Last Admin: 09/14/17 22:29 Dose: 28 units Insulin Detemir (Levemir Vial) 30 units SQ AM [facility] Last Admin: 09/15/17 06:44 Dose: 30 units Metoprolol Tartrate (Lopressor -) 25 mg NGT Q6H [facility] Last Admin: 09/15/17 04:38 Dose: 25 mg Montelukast Sodium (Singulair -) 10 mg PO HS [facility] Last Admin: 09/14/17 22:17 Dose: 10 mg Multivitamins/Minerals/Vitamin C (Tab-A-Vit -) 1 tab PO DAILY [facility] Last Admin: 09/14/17 10:23 Dose: Not Given Ondansetron HCl (Zofran Injection) 4 mg IVPUSH Q4H PRN PRN Reason: NAUSEA AND/OR VOMITING Last Admin: 09/15/17 08:24 Dose: 4 mg Pancrelipase (Creon Dr 36,000 Units Capsule) 1 cap PO TIDCM [facility] Last Admin: 09/14/17 17:57 Dose: Not Given Pantoprazole Sodium (Protonix Iv) 40 mg IVPUSH DAILY [facility] Last Admin: 09/14/17 11:03 Dose: 40 mg Ramipril (Altace -) 5 mg NGT DAILY [facility] Last Admin: 09/14/17 13:12 Dose: 5 mg Tamsulosin HCl (Flomax -) 0.4 mg PO DAILY@0830 [facility] Last Admin: 09/14/17 08:54 Dose: Not Given Tiotropium [place] (Spiriva -) 1 puff IH DAILY [facility] Last Admin: 09/13/17 10:54 Dose: Not Given - Objective Vital Signs: Vital Signs Temperature 98.4 F 09/15/17 05:00 Pulse Rate 88 09/15/17 05:04 Respiratory Rate 18 09/15/17 05:04 Blood Pressure 138/56 09/15/17 05:04 O2 Sat by Pulse Oximetry (%) 100 09/14/17 21:00 Constitutional: Yes: Mild Distress Eyes: Yes: WNL HENT: Yes: WNL Neck: Yes: WNL Cardiovascular: Yes: WNL Respiratory: Yes: CTA Bilaterally, On Nasal O2 Gastrointestinal: Yes: Tenderness, Other Genitourinary: Yes: Other Musculoskeletal: Yes: Muscle Weakness Extremities: Yes: Other Edema: Yes Peripheral Pulses WNL: Yes Integumentary: Yes: Erythema, Other Wound/Incision: Yes: Dressing Dry and Intact (ABDOMINAL DRESSING INTACT) Neurological: Yes: WNL ...Motor Strength: WNL Psychiatric: Yes: WNL Labs: CBC, BMP 09/15/17 05:05 09/15/17 05:05 INR, PTT INR 1.22 (0.82-1.09) H 08/21/17 06:55 Problem List - Problems (1) Umbilical hernia Code(s): K42.9 - UMBILICAL HERNIA WITHOUT OBSTRUCTION OR GANGRENE Qualifiers: Obstruction and gangrene presence: without obstruction or gangrene Qualified Code(s): K42.9 - Umbilical hernia without obstruction or gangrene (2) Chest pain Code(s): R07.9 - CHEST PAIN, UNSPECIFIED Qualifiers: Chest pain type: unspecified Qualified Code(s): R07.9 - Chest pain, unspecified (3) Chronic pancreatitis Code(s): K86.1 - OTHER CHRONIC PANCREATITIS Qualifiers: Pancreatitis type: unspecified pancreatitis type Qualified Code(s): K86.1 - Other chronic pancreatitis (4) 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 Code(s): E10.8 - TYPE 1 DIABETES MELLITUS WITH UNSPECIFIED COMPLICATIONS (5) Pneumonia Code(s): J18.9 - PNEUMONIA, UNSPECIFIED ORGANISM Qualifiers: Pneumonia type: due to unspecified organism Laterality: right Lung location: unspecified part of lung Qualified Code(s): J18.9 - Pneumonia, unspecified organism (6) ASHD (arteriosclerotic heart disease) Code(s): I25.10 - ATHSCL HEART DISEASE OF [place] CORONARY ARTERY W/O ANG PCTRS (7) Abdominal pain Code(s): R10.9 - UNSPECIFIED ABDOMINAL PAIN Qualifiers: Abdominal location: upper abdomen, unspecified Qualified Code(s): R10.10 - Upper abdominal pain, unspecified (8) Type 2 diabetes mellitus with diabetic neuropathy Code(s): E11.40 - TYPE 2 DIABETES MELLITUS WITH DIABETIC NEUROPATHY, UNSP (9) H/O umbilical hernia repair Code(s): Z98.890 - OTHER SPECIFIED POSTPROCEDURAL STATES; Z87.19 - PERSONAL HISTORY OF OTHER DISEASES OF THE DIGESTIVE SYSTEM (10) SBO (small bowel obstruction) Code(s): K56.609 - UNSP INTESTNL OBST, UNSP TO PARTIAL VERSUS COMPLETE OBST (11) Anxiety Code(s): F41.9 - ANXIETY DISORDER, UNSPECIFIED (12) Arrhythmia Code(s): I49.9 - CARDIAC ARRHYTHMIA, UNSPECIFIED (13) Cervical disc disease Code(s): M50.90 - CERVICAL DISC DISORDER, UNSP, UNSPECIFIED CERVICAL REGION (14) Cervical radiculopathy Code(s): M54.12 - RADICULOPATHY, CERVICAL REGION (15) Cervical vertebral fusion Code(s): M43.22 - FUSION OF SPINE, CERVICAL REGION (16) Chronic back pain Code(s): M54.9 - DORSALGIA, UNSPECIFIED; G89.29 - OTHER CHRONIC PAIN Qualifiers: (17) Chronic pain following surgery or procedure Code(s): G89.28 - OTHER CHRONIC POSTPROCEDURAL PAIN (18) H/O cervical spine surgery Code(s): Z98.89 - OTHER SPECIFIED POSTPROCEDURAL STATES * DO NOT USE * Assessment/Plan BM + 3 EPISODES CAN D/C NGT NOW START ICE CHIPS OOB TO CHAIR WHEN CLEARED BY SURGERY SURGERY FOLLOW UP TODAY CHECK LABS OOB TO CHAIR PAIN CONTROL ADVANCE DIET SLOWLY
[2017-09-15] MEDS: PANTOPRAZOLE SODIUM 40 MG VIAL IVPUSH SCH (09:53)
[2017-09-15] MEDS: MULTIVITAMINS (DAILY MVI) TABLET (FP) PO SCH (09:54)
[2017-09-15] MEDS: RAMIPRIL 5 MG CAPSULE (FP) NGT SCH (09:54)
[2017-09-15] MEDS: FINASTERIDE 5 MG TABLET (FP) PO SCH (09:54)
[2017-09-15] MEDS: TAMSULOSIN HCL 0.4 MG CAP.ER.24H (FP) PO SCH (09:54)
[2017-09-15] MEDS: CLOPIDOGREL BISULFATE 75 MG TABLET (FP) NGT SCH (09:54)
[2017-09-15] MEDS: ASPIRIN COATED 81 MG TABLET.EC PO SCH (09:54)
[2017-09-15] MEDS: BUDESONIDE/FORMETEROL FUMARATE 160/4.5 mcg INHALER IH SCH ×2 (09:55→21:54)
[2017-09-15] MEDS: HEPARIN NA (PORCINE) 5,000 UNITS/ML 1ML VIAL SQ SCH ×2 (09:55→21:43)
[2017-09-15 10:00] LABS: GLUCOSE,RANDOM 328 mg/dL (74-106)
[2017-09-15] MEDS: TIOTROPIUM BROMIDE 18 MCG/INH (DEVICE W/ 5 CAPSULES) IH SCH (10:00)
--- NOTE | 2017-09-15 10:01 | PN ---
Progress Note, Physician History of Present Illness: POD# 5 exploratory lap, ZACHERY, SB resection, having BM, NGT in place, afebrile. - Current Medication List Current Medications: Active Medications Acetaminophen (Ofirmev Injection -) 1,000 mg IVPB Q6H PRN PRN Reason: PAIN Albuterol Sulfate (Ventolin 0.083% Nebulizer Soln -) 1 amp NEB RQID [facility] Last Admin: 09/15/17 08:20 Dose: Not Given Amitriptyline HCl (Elavil -) 25 mg NGT TID [facility] Last Admin: 09/15/17 06:44 Dose: 25 mg Aspirin (Ecotrin -) 81 mg PO DAILY [facility] Last Admin: 09/14/17 11:58 Dose: Not Given Budesonide/Formoterol Fumarate (Symbicort 160/4.5mcg -) 1 puff IH BID [facility] Last Admin: 09/14/17 22:05 Dose: 1 puff Clopidogrel Bisulfate (Plavix -) 75 mg NGT DAILY [facility] Last Admin: 09/14/17 11:03 Dose: 75 mg Finasteride (Proscar -) 5 mg PO DAILY [facility] Last Admin: 09/14/17 14:58 Dose: Not Given Heparin Sodium (Porcine) (Heparin -) 5,000 unit SQ BID [facility] Last Admin: 09/14/17 22:17 Dose: 5,000 unit Hydromorphone HCl (Dilaudid [employer] Freight Car Cleaner -) 6 mg MOBILE MECHANIC MOBILE MECHANIC MARK PRN Reason: Protocol Last Admin: 09/14/17 09:04 Dose: 6 mg IV Flush (Picc Line Flush) 8 ml IVPUSH PRN PRN PRN Reason: Protocol Last Admin: 09/11/17 01:31 Dose: 8 ml Potassium Phosphate 30 mm/Potassium Chloride 30 meq/Sodium Chloride 50 meq/ Calcium Gluconate 1,000 mg/Magnesium Sulfate 2 gm/ Folic Acid 1 mg/ Multivitamins/Minerals 10 ml/ Sterile Water/Amino Acids/ Dextrose 1,500 mls @ 62.5 mls/hr IVPB DAILY@1600 [facility] Last Admin: 09/14/17 17:00 Dose: 62.5 mls/hr Fat Emulsion Intravenous (Intralipid -) 250 mls @ 20.833 mls/hr IV DAILY@2200 [facility] Last Admin: 09/14/17 22:22 Dose: 20.833 mls/hr Insulin Aspart (Novolog Vial Sliding Scale -) 1 vial SQ Q4HPO [facility] PRN Reason: Protocol Last Admin: 09/15/17 06:43 Dose: 8 units Insulin Detemir (Levemir Vial) 28 units SQ HS [facility] Last Admin: 09/14/17 22:29 Dose: 28 units Insulin Detemir (Levemir Vial) 30 units SQ AM [facility] Last Admin: 09/15/17 06:44 Dose: 30 units Metoprolol Tartrate (Lopressor -) 25 mg NGT Q6H [facility] Last Admin: 09/15/17 04:38 Dose: 25 mg Montelukast Sodium (Singulair -) 10 mg PO HS [facility] Last Admin: 09/14/17 22:17 Dose: 10 mg Multivitamins/Minerals/Vitamin C (Tab-A-Vit -) 1 tab PO DAILY [facility] Last Admin: 09/14/17 10:23 Dose: Not Given Ondansetron HCl (Zofran Injection) 4 mg IVPUSH Q4H PRN PRN Reason: NAUSEA AND/OR VOMITING Last Admin: 09/15/17 08:24 Dose: 4 mg Pancrelipase (Creon Dr 36,000 Units Capsule) 1 cap PO TIDCM [facility] Last Admin: 09/14/17 17:57 Dose: Not Given Pantoprazole Sodium (Protonix Iv) 40 mg IVPUSH DAILY [facility] Last Admin: 09/14/17 11:03 Dose: 40 mg Ramipril (Altace -) 5 mg NGT DAILY [facility] Last Admin: 09/14/17 13:12 Dose: 5 mg Tamsulosin HCl (Flomax -) 0.4 mg PO DAILY@0830 [facility] Last Admin: 09/14/17 08:54 Dose: Not Given Tiotropium [place] (Spiriva -) 1 puff IH DAILY [facility] Last Admin: 09/13/17 10:54 Dose: Not Given - Objective Vital Signs: Vital Signs Temperature 98.4 F 09/15/17 05:00 Pulse Rate 88 09/15/17 05:04 Respiratory Rate 18 09/15/17 05:04 Blood Pressure 138/56 09/15/17 05:04 O2 Sat by Pulse Oximetry (%) 100 09/14/17 21:00 Constitutional: Yes: No Distress, Calm Neck: Yes: Supple Cardiovascular: Yes: Regular Rate and Rhythm Respiratory: Yes: Regular, Diminished Gastrointestinal: Yes: Distention, Hypoactive Bowel Sounds Edema: No Labs: CBC, BMP 09/15/17 05:05 09/15/17 05:05 INR, PTT INR 1.22 (0.82-1.09) H 08/21/17 06:55 - ....Imaging EKG: Report Reviewed (Tele: PAC) Problem List - Problems (1) Chest pain Code(s): R07.9 - CHEST PAIN, UNSPECIFIED Qualifiers: Chest pain type: unspecified Qualified Code(s): R07.9 - Chest pain, unspecified (2) Chronic pancreatitis Code(s): K86.1 - OTHER CHRONIC PANCREATITIS Qualifiers: Pancreatitis type: unspecified pancreatitis type Qualified Code(s): K86.1 - Other chronic pancreatitis (3) Abdominal pain Code(s): R10.9 - UNSPECIFIED ABDOMINAL PAIN Qualifiers: Abdominal location: upper abdomen, unspecified Qualified Code(s): R10.10 - Upper abdominal pain, unspecified (4) Asthma Code(s): J45.909 - UNSPECIFIED ASTHMA, UNCOMPLICATED Qualifiers: Asthma severity: unspecified severity (5) COPD (chronic obstructive pulmonary disease) Code(s): J44.9 - CHRONIC OBSTRUCTIVE PULMONARY DISEASE, UNSPECIFIED (6) Chronic diastolic (congestive) heart failure Code(s): I50.32 - CHRONIC DIASTOLIC (CONGESTIVE) HEART FAILURE (7) Coronary artery disease Code(s): I25.10 - ATHSCL HEART DISEASE OF [place] CORONARY ARTERY W/O ANG PCTRS (8) Diabetes mellitus Code(s): E11.9 - TYPE 2 DIABETES MELLITUS WITHOUT COMPLICATIONS Qualifiers: Diabetes mellitus type: type 2 Diabetes mellitus complication detail: with unspecified neuropathy (9) Esophagitis determined by endoscopy Code(s): K20.9 - ESOPHAGITIS, UNSPECIFIED (10) Hyperlipidemia Code(s): E78.5 - HYPERLIPIDEMIA, UNSPECIFIED (11) Hypertension Code(s): I10 - ESSENTIAL (PRIMARY) HYPERTENSION Qualifiers: Hypertension type: essential hypertension Qualified Code(s): I10 - Essential (primary) hypertension (12) Hypertension associated with diabetes Code(s): E11.59 - TYPE 2 DIABETES MELLITUS WITH OTH CIRCULATORY COMPLICATIONS; I10 - ESSENTIAL (PRIMARY) HYPERTENSION (13) IPMN (intraductal papillary mucinous neoplasm) Code(s): D49.0 - NEOPLASM OF UNSPECIFIED BEHAVIOR OF DIGESTIVE SYSTEM (14) Myocardial infarct Code(s): I21.3 - ST ELEVATION (STEMI) MYOCARDIAL INFARCTION OF UNSP SITE (15) GRACIE (obstructive sleep apnea) Code(s): G47.33 - OBSTRUCTIVE SLEEP APNEA (ADULT) (PEDIATRIC) (16) Type 2 diabetes mellitus with diabetic neuropathy Code(s): E11.40 - TYPE 2 DIABETES MELLITUS WITH DIABETIC NEUROPATHY, UNSP (17) Renal calculus, left Code(s): N20.0 - CALCULUS OF KIDNEY (18) Umbilical hernia Code(s): K42.9 - UMBILICAL HERNIA WITHOUT OBSTRUCTION OR GANGRENE Qualifiers: Obstruction and gangrene presence: without obstruction or gangrene Qualified Code(s): K42.9 - Umbilical hernia without obstruction or gangrene (19) S/P lumbar spinal fusion Code(s): Z98.1 - ARTHRODESIS STATUS (20) Tracheostomy in place Code(s): Z98.89 - OTHER SPECIFIED POSTPROCEDURAL STATES * DO NOT USE * (21) H/O umbilical hernia repair Code(s): Z98.890 - OTHER SPECIFIED POSTPROCEDURAL STATES; Z87.19 - PERSONAL HISTORY OF OTHER DISEASES OF THE DIGESTIVE SYSTEM (22) SBO (small bowel obstruction) Code(s): K56.609 - UNSP INTESTNL OBST, UNSP TO PARTIAL VERSUS COMPLETE OBST Assessment/Plan 1. POD #5 exploratory lap, ZACHERY, SB resection, umbilical hernia repair 2. History of chronic pancreatitis 3. Chronic atypical chest pain syndrome, resolved 4. CAD post WI, post PCI (stents), angina pectoris 5. Diastolic LV dysfunction with chronic class 0-I NYHA classification LV failure, compensated/euvolemic 6. HTN/HCVD 7. DM 8. Hyperlipidemia 9. OSAS 10. COPD/Asthma 11. Acute on CKD resolved PLAN: 1. Continue Lopressor 25 q6 and Altace 5 qd 2. Continue ASA 81 qd and Plavix 75 qd 3. If BP remains elevated resume Norvasc 4. Pain management as per anesthesia/pain service 5. Antibiotic d/lakesha per ID 6. DVT and GI prophylaxis, TPN, d/c telemetry
--- NOTE | 2017-09-15 11:14 | PN ---
Progress Note, Physician Chief Complaint: higher sugars ,still feeling weak History of Present Illness: dm,sp exp lap for sbo,afebrile,bm active,hyperglycemia,ngt - Current Medication List Current Medications: Active Medications Acetaminophen (Ofirmev Injection -) 1,000 mg IVPB Q6H PRN PRN Reason: PAIN Albuterol Sulfate (Ventolin 0.083% Nebulizer Soln -) 1 amp NEB RQID [facility] Last Admin: 09/15/17 08:20 Dose: Not Given Amitriptyline HCl (Elavil -) 25 mg NGT TID [facility] Last Admin: 09/15/17 06:44 Dose: 25 mg Aspirin (Ecotrin -) 81 mg PO DAILY [facility] Last Admin: 09/15/17 09:54 Dose: 81 mg Budesonide/Formoterol Fumarate (Symbicort 160/4.5mcg -) 1 puff IH BID [facility] Last Admin: 09/15/17 09:55 Dose: 1 puff Clopidogrel Bisulfate (Plavix -) 75 mg NGT DAILY [facility] Last Admin: 09/15/17 09:54 Dose: 75 mg Finasteride (Proscar -) 5 mg PO DAILY [facility] Last Admin: 09/15/17 09:54 Dose: 5 mg Heparin Sodium (Porcine) (Heparin -) 5,000 unit SQ BID [facility] Last Admin: 09/15/17 09:55 Dose: 5,000 unit Hydromorphone HCl (Dilaudid Slasher Tender -) 6 mg CREEL SELECTOR CREEL SELECTOR MARK PRN Reason: Protocol Last Admin: 09/14/17 09:04 Dose: 6 mg IV Flush (Picc Line Flush) 8 ml IVPUSH PRN PRN PRN Reason: Protocol Last Admin: 09/11/17 01:31 Dose: 8 ml Potassium Phosphate 30 mm/Potassium Chloride 30 meq/Sodium Chloride 50 meq/ Calcium Gluconate 1,000 mg/Magnesium Sulfate 2 gm/ Folic Acid 1 mg/ Multivitamins/Minerals 10 ml/ Sterile Water/Amino Acids/ Dextrose 1,500 mls @ 62.5 mls/hr IVPB DAILY@1600 [facility] Last Admin: 09/14/17 17:00 Dose: 62.5 mls/hr Fat Emulsion Intravenous (Intralipid -) 250 mls @ 20.833 mls/hr IV DAILY@2200 [facility] Last Admin: 09/14/17 22:22 Dose: 20.833 mls/hr Insulin Aspart (Novolog Vial Sliding Scale -) 1 vial SQ Q4HPO [facility] PRN Reason: Protocol Last Admin: 09/15/17 06:43 Dose: 8 units Insulin Detemir (Levemir Vial) 28 units SQ HS [facility] Last Admin: 09/14/17 22:29 Dose: 28 units Insulin Detemir (Levemir Vial) 30 units SQ AM [facility] Last Admin: 09/15/17 06:44 Dose: 30 units Metoprolol Tartrate (Lopressor -) 25 mg NGT Q6H [facility] Last Admin: 09/15/17 09:54 Dose: 25 mg Montelukast Sodium (Singulair -) 10 mg PO HS [facility] Last Admin: 09/14/17 22:17 Dose: 10 mg Multivitamins/Minerals/Vitamin C (Tab-A-Vit -) 1 tab PO DAILY [facility] Last Admin: 09/15/17 09:54 Dose: 1 tab Ondansetron HCl (Zofran Injection) 4 mg IVPUSH Q4H PRN PRN Reason: NAUSEA AND/OR VOMITING Last Admin: 09/15/17 08:24 Dose: 4 mg Pancrelipase (Creon Dr 36,000 Units Capsule) 1 cap PO TIDCM [facility] Last Admin: 09/14/17 17:57 Dose: Not Given Pantoprazole Sodium (Protonix Iv) 40 mg IVPUSH DAILY [facility] Last Admin: 09/15/17 09:53 Dose: 40 mg Ramipril (Altace -) 5 mg NGT DAILY [facility] Last Admin: 09/15/17 09:54 Dose: 5 mg Tamsulosin HCl (Flomax -) 0.4 mg PO DAILY@0830 [facility] Last Admin: 09/15/17 09:54 Dose: 0.4 mg Tiotropium [place] (Spiriva -) 1 puff IH DAILY [facility] Last Admin: 09/13/17 10:54 Dose: Not Given - Objective Vital Signs: Vital Signs Temperature 98.4 F 09/15/17 05:00 Pulse Rate 88 09/15/17 05:04 Respiratory Rate 18 09/15/17 05:04 Blood Pressure 138/56 09/15/17 05:04 O2 Sat by Pulse Oximetry (%) 100 09/14/17 21:00 Constitutional: Yes: Well Nourished, Anxious Eyes: Yes: EOM Intact HENT: Yes: Normocephalic Neck: Yes: Trachea Midline Cardiovascular: Yes: Regular Rate and Rhythm Respiratory: Yes: CTA Bilaterally Gastrointestinal: Yes: Normal Bowel Sounds ...Rectal Exam: Yes: Deferred Genitourinary: Yes: WNL Breast(s): Yes: WNL Musculoskeletal: Yes: Muscle Weakness Edema: No Peripheral Pulses WNL: Yes Wound/Incision: Yes: Dressing Dry and Intact Neurological: Yes: Alert, Oriented Labs: CBC, BMP 09/15/17 05:05 09/15/17 05:05 INR, PTT INR 1.22 (0.82-1.09) H 08/21/17 06:55 Problem List - Problems (1) 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 Code(s): E10.8 - TYPE 1 DIABETES MELLITUS WITH UNSPECIFIED COMPLICATIONS (2) Chronic pancreatitis Code(s): K86.1 - OTHER CHRONIC PANCREATITIS Qualifiers: Pancreatitis type: unspecified pancreatitis type Qualified Code(s): K86.1 - Other chronic pancreatitis (3) ASHD (arteriosclerotic heart disease) Code(s): I25.10 - ATHSCL HEART DISEASE OF [place] CORONARY ARTERY W/O ANG PCTRS (4) Abdominal pain Code(s): R10.9 - UNSPECIFIED ABDOMINAL PAIN Qualifiers: Abdominal location: upper abdomen, unspecified Qualified Code(s): R10.10 - Upper abdominal pain, unspecified (5) Acute on chronic diastolic (congestive) heart failure Code(s): I50.33 - ACUTE ON CHRONIC DIASTOLIC (CONGESTIVE) HEART FAILURE Assessment/Plan Current Active Problems Laboratory Results - last 24 hr 09/14/17 09/14/17 09/14/17 11:31 15:25 17:25 WBC RBC Hgb Hct MCV MCH MCHC RDW Plt Count MPV Neutrophils % Lymphocytes % Monocytes % Eosinophils % Basophils % Sodium Potassium Chloride Carbon Dioxide Anion Gap BUN Creatinine POC Glucometer 294 290 295 Random Glucose Calcium Phosphorus Magnesium 09/14/17 09/15/17 09/15/17 22:28 05:05 05:05 WBC 10.9 H RBC 3.60 L Hgb 9.7 L Hct 28.9 L MCV 80.4 MCH 26.9 MCHC 33.5 RDW 14.9 Plt Count 357 MPV 8.2 Neutrophils % 61.9 Lymphocytes % 21.8 Monocytes % 9.6 Eosinophils % 5.9 H Basophils % 0.8 Sodium Cancelled Potassium Cancelled Chloride Cancelled Carbon Dioxide Cancelled Anion Gap Cancelled BUN Cancelled Creatinine Cancelled POC Glucometer 284 Random Glucose Cancelled Calcium Cancelled Phosphorus Magnesium 09/15/17 09/15/17 05:05 05:31 WBC RBC Hgb Hct MCV MCH MCHC RDW Plt Count MPV Neutrophils % Lymphocytes % Monocytes % Eosinophils % Basophils % Sodium 132 L Potassium 4.1 Chloride 102 Carbon Dioxide 20 L Anion Gap 10 BUN 20 H Creatinine 1.1 POC Glucometer 340 Random Glucose 328 H* Calcium 8.0 L Phosphorus 1.8 L Magnesium 2.3 plan: bgm qid novolog insulin doses levemir bid doses adjustment as sugar is nutrition supported CHF (congestive heart failure) (Acute) Chest pain (Acute) Chronic pancreatitis (Acute) 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
[2017-09-15] MEDS ORDERED: INSULIN DETEMIR 100 UNITS/ML MDV SQ SCH (11:37)
[2017-09-15] MEDS ORDERED: CALCIUM GLUCONATE 10% - 1,000 MG in SODIUM CHLORIDE 100 ML IVPB ONE (15:00)
[2017-09-15] MEDS ORDERED: POTASSIUM CHLORIDE IVPB SCH (16:00)
[2017-09-15] MEDS ORDERED: SODIUM CHLORIDE IVPB SCH (16:00)
[2017-09-15] MEDS ORDERED: POTASSIUM PHOSPHATE IVPB SCH (16:00)
[2017-09-15] MEDS ORDERED: [UNRECOGNIZED DRUG - OTHER] IVPB SCH (16:00)
--- NOTE | 2017-09-15 16:06 | PN ---
Progress Note (short form) - Note Progress Note: Renal follow up for Hypokalemia/TPN Pt seen and examined at the bedside sitting in chair no sob, chest pain getting TPN had BM x 3 NGT removed Vital Signs Temperature 99.4 F 09/15/17 14:00 Pulse Rate 101 H 09/15/17 14:00 Respiratory Rate 18 09/15/17 09:00 Blood Pressure 165/93 09/15/17 14:00 O2 Sat by Pulse Oximetry (%) 100 09/14/17 21:00 Intake & Output 09/12/17 09/13/17 09/14/17 09/15/17 23:59 23:59 23:59 23:59 Intake Total 1330 3160 1600 952.5 Output Total 009 325 6847 1450 Balance 880 2660 200 -497.5 Weight 109.406 kg 112.128 kg NAD awake and alert + abd tenderness No LE edema CBC, BMP 09/15/17 05:05 09/15/17 05:05 Current Medications Acetaminophen (Ofirmev Injection -) 1,000 mg IVPB Q6H PRN PRN Reason: PAIN Albuterol Sulfate (Ventolin 0.083% Nebulizer Soln -) 1 amp NEB RQID [facility] Last Admin: 09/15/17 11:41 Dose: Not Given Amitriptyline HCl (Elavil -) 25 mg NGT TID [facility] Last Admin: 09/15/17 06:44 Dose: 25 mg Aspirin (Ecotrin -) 81 mg PO DAILY [facility] Last Admin: 09/15/17 09:54 Dose: 81 mg Budesonide/Formoterol Fumarate (Symbicort 160/4.5mcg -) 1 puff IH BID [facility] Last Admin: 09/15/17 09:55 Dose: 1 puff Clopidogrel Bisulfate (Plavix -) 75 mg NGT DAILY [facility] Last Admin: 09/15/17 09:54 Dose: 75 mg Finasteride (Proscar -) 5 mg PO DAILY [facility] Last Admin: 09/15/17 09:54 Dose: 5 mg Heparin Sodium (Porcine) (Heparin -) 5,000 unit SQ BID [facility] Last Admin: 09/15/17 09:55 Dose: 5,000 unit Hydromorphone HCl (Dilaudid Consumer Services Advisor -) 6 mg BUILDING MAINTENANCE MECHANIC BUILDING MAINTENANCE MECHANIC MARK PRN Reason: Protocol Last Admin: 09/15/17 09:00 Dose: 6 mg IV Flush (Picc Line Flush) 8 ml IVPUSH PRN PRN PRN Reason: Protocol Last Admin: 09/11/17 01:31 Dose: 8 ml Fat Emulsion Intravenous (Intralipid -) 250 mls @ 20.833 mls/hr IV DAILY@2200 [facility] Last Admin: 09/14/17 22:22 Dose: 20.833 mls/hr Potassium Phosphate 45 mm/Potassium Chloride 30 meq/Sodium Chloride 35 meq/ Magnesium Sulfate 2 gm/ Folic Acid 1 mg/ Multivitamins/Minerals 10 ml/ Sodium Acetate 35 meq/ Sterile Water/ Amino Acids/ Dextrose 1,500 mls @ 62.5 mls/hr IVPB DAILY@1600 [facility] Insulin Aspart (Novolog Vial Sliding Scale -) 1 vial SQ Q4HPO [facility] PRN Reason: Protocol Last Admin: 09/15/17 12:30 Dose: 8 units Insulin Detemir (Levemir Vial) 28 units SQ HS [facility] Last Admin: 09/14/17 22:29 Dose: 28 units Insulin Detemir (Levemir Vial) 35 units SQ AM [facility] Metoprolol Tartrate (Lopressor -) 25 mg NGT Q6H [facility] Last Admin: 09/15/17 09:54 Dose: 25 mg Montelukast Sodium (Singulair -) 10 mg PO [facility] Last Admin: 09/14/17 22:17 Dose: 10 mg Multivitamins/Minerals/Vitamin C (Tab-A-Vit -) 1 tab PO DAILY [facility] Last Admin: 09/15/17 09:54 Dose: 1 tab Ondansetron HCl (Zofran Injection) 4 mg IVPUSH Q4H PRN PRN Reason: NAUSEA AND/OR VOMITING Last Admin: 09/15/17 08:24 Dose: 4 mg Pancrelipase (Creon Dr 36,000 Units Capsule) 1 cap PO TIDCM [facility] Last Admin: 09/15/17 13:00 Dose: 1 cap Pantoprazole Sodium (Protonix Iv) 40 mg IVPUSH DAILY [facility] Last Admin: 09/15/17 09:53 Dose: 40 mg Ramipril (Altace -) 5 mg NGT DAILY [facility] Last Admin: 09/15/17 09:54 Dose: 5 mg Tamsulosin HCl (Flomax -) 0.4 mg PO DAILY@0830 [facility] Last Admin: 09/15/17 09:54 Dose: 0.4 mg Tiotropium [place] (Spiriva -) 1 puff IH DAILY [facility] Last Admin: 09/13/17 10:54 Dose: Not Given 61 year old gentleman with PMhx of CAD s/p stents and CABG, Chronic Pancreatitis , Hypertension, HLD who presented with abd pain and now s/p open resection of incarcerated umbilical hernia with ileus and prolonged NPO status. #s/p open resection of incarcerated hernia with prolonged NPO status will continue TPN (electrolytes adjusted today based on labs) surgical follow up #Hypertension on oral ramipirl Thank you Az Nelson DO
[2017-09-15] MEDS: MONTELUKAST NA 10 MG TABLET PO SCH (21:41)
[2017-09-15] MEDS: FAT EMULSIONS 250 ML IV SCH (21:42)
[2017-09-15] MEDS: INSULIN DETEMIR 100 UNITS/ML MDV SQ SCH (21:42)
--- NOTE | 2017-09-15 22:32 | PN ---
Progress Note (short form) - Note Progress Note: Pain controlled +BM x 2 NG tube removed Vital Signs Period Temp Pulse Resp BP Sys/Gates Pulse Ox Last 24 Hr 98.4 F-99.4 F 86-101 18-22 136-167/56-93 98 Abd soft, NT, ND CBC, BMP 09/15/17 05:05 09/15/17 05:05 Diabetic clears Glycemic control Ambulate Problem List - Problems (1) Umbilical hernia Code(s): K42.9 - UMBILICAL HERNIA WITHOUT OBSTRUCTION OR GANGRENE Qualifiers: Obstruction and gangrene presence: without obstruction or gangrene Qualified Code(s): K42.9 - Umbilical hernia without obstruction or gangrene
[2017-09-16] MEDS: AMITRIPTYLINE HCL 25 MG TABLET (FP) NGT SCH ×3 (05:23→22:13)
[2017-09-16] MEDS: METOPROLOL TARTRATE 25 MG TABLET (FP) NGT SCH ×4 (05:23→22:13)
[2017-09-16] MEDS: INSULIN DETEMIR 100 UNITS/ML MDV SQ SCH ×2 (06:08→22:14)
[2017-09-16] MEDS: INSULIN SLIDING SCALE (NOVOLOG) 1 VIAL SQ SCH ×4 (06:08→22:15)
[2017-09-16 07:34] LABS: HEMATOCRIT 29.8 % (35.4-49); HEMOGLOBIN 9.9 GM/dL (11.7-16.9); MCH 26.8 pg (25.7-33.7); MCHC 33.3 g/dl (32.0-35.9); MEAN CELL VOLUME 80.5 fl (80-96); PLATELET COUNT 411 K/MM3 (134-434); WHITE BLOOD COUNT 11.8 K/mm3 (4.0-10.0)
[2017-09-16 07:59] LABS: ALBUMIN 1.7 g/dl (3.4-5.0); BILIRUBIN,TOTAL 0.3 mg/dL (0.2-1.0); BLOOD UREA NITROGEN 18 mg/dL (7-18); CHLORIDE 105 mmol/L (98-107); PHOSPHOROUS 2.8 mg/dL (2.5-4.9); POTASSIUM 4.4 mmol/L (3.5-5.1); SGOT/AST 24 U/L (15-37); SODIUM 139 mmol/L (136-145); TOT PROT 5.4 g/dl (6.4-8.2)
[2017-09-16 08:04] LABS: ALK PHOS 97 U/L (45-117); ANION GAP 13 (8-16); CALCIUM 8.8 mg/dL (8.5-10.1); CO2 21 mmol/L (21-32); CREATININE 0.9 mg/dL (0.7-1.3); MAGNESIUM 2.6 mg/dL (1.8-2.4); SGPT/ALT 28 U/L (12-78)
--- NOTE | 2017-09-16 08:06 | PN ---
Progress Note, Physician Chief Complaint: POD #6 s/p hernia repair/bowel resection. Still having pain at night, wants to keep ROUTE [employer]ESM[employer] - NGT out and eating - Current Medication List Current Medications: Active Medications Acetaminophen (Ofirmev Injection -) 1,000 mg IVPB Q6H PRN PRN Reason: PAIN Amitriptyline HCl (Elavil -) 25 mg NGT TID [facility] Last Admin: 09/16/17 05:23 Dose: 25 mg Aspirin (Ecotrin -) 81 mg PO DAILY [facility] Last Admin: 09/15/17 09:54 Dose: 81 mg Budesonide/Formoterol Fumarate (Symbicort 160/4.5mcg -) 1 puff IH BID [facility] Last Admin: 09/15/17 21:54 Dose: 1 puff Clopidogrel Bisulfate (Plavix -) 75 mg NGT DAILY [facility] Last Admin: 09/15/17 09:54 Dose: 75 mg Finasteride (Proscar -) 5 mg PO DAILY [facility] Last Admin: 09/15/17 09:54 Dose: 5 mg Heparin Sodium (Porcine) (Heparin -) 5,000 unit SQ BID [facility] Last Admin: 09/15/17 21:43 Dose: 5,000 unit Hydromorphone HCl (Dilaudid Facing Baster Jumpbasting -) 6 mg ROUTE SALESMAN ROUTE SALESMAN [facility] PRN Reason: Protocol Last Admin: 09/15/17 09:00 Dose: 6 mg IV Flush (Picc Line Flush) 8 ml IVPUSH PRN PRN PRN Reason: Protocol Last Admin: 09/11/17 01:31 Dose: 8 ml Fat Emulsion Intravenous (Intralipid -) 250 mls @ 20.833 mls/hr IV DAILY@2200 [facility] Last Admin: 09/15/17 21:42 Dose: 20.833 mls/hr Potassium Phosphate 45 mm/Potassium Chloride 30 meq/Sodium Chloride 35 meq/ Magnesium Sulfate 2 gm/ Folic Acid 1 mg/ Multivitamins/Minerals 10 ml/ Sodium Acetate 35 meq/ Sterile Water/ Amino Acids/ Dextrose 1,500 mls @ 62.5 mls/hr IVPB DAILY@1600 [facility] Last Admin: 09/15/17 17:00 Dose: 62.5 mls/hr Insulin Aspart (Novolog Vial Sliding Scale -) 1 vial SQ ACHS [facility] PRN Reason: Protocol Last Admin: 09/16/17 06:08 Dose: 9 units Insulin Detemir (Levemir Vial) 28 units SQ HS [facility] Last Admin: 09/15/17 21:42 Dose: 28 units Insulin Detemir (Levemir Vial) 40 units SQ AM [facility] Last Admin: 09/16/17 06:08 Dose: 40 units Metoprolol Tartrate (Lopressor -) 25 mg NGT Q6H [facility] Last Admin: 09/16/17 05:23 Dose: 25 mg Montelukast Sodium (Singulair -) 10 mg PO HS [facility] Last Admin: 09/15/17 21:41 Dose: 10 mg Multivitamins/Minerals/Vitamin C (Tab-A-Vit -) 1 tab PO DAILY [facility] Last Admin: 09/15/17 09:54 Dose: 1 tab Ondansetron HCl (Zofran Injection) 4 mg IVPUSH Q4H PRN PRN Reason: NAUSEA AND/OR VOMITING Last Admin: 09/15/17 21:41 Dose: 4 mg Pancrelipase (Creon Dr 36,000 Units Capsule) 1 cap PO TIDCM [facility] Last Admin: 09/15/17 18:44 Dose: Not Given Pantoprazole Sodium (Protonix Iv) 40 mg IVPUSH DAILY [facility] Last Admin: 09/15/17 09:53 Dose: 40 mg Ramipril (Altace -) 5 mg NGT DAILY [facility] Last Admin: 09/15/17 09:54 Dose: 5 mg Tamsulosin HCl (Flomax -) 0.4 mg PO DAILY@0830 [facility] Last Admin: 09/15/17 09:54 Dose: 0.4 mg Tiotropium [place] (Spiriva -) 1 puff IH DAILY [facility] Last Admin: 09/15/17 10:00 Dose: Not Given - Objective Vital Signs: Vital Signs Temperature 99.6 F 09/16/17 06:00 Pulse Rate 85 09/16/17 06:00 Respiratory Rate 19 09/16/17 06:00 Blood Pressure 153/89 09/16/17 06:00 O2 Sat by Pulse Oximetry (%) 97 09/15/17 21:00 Labs: CBC, BMP 09/16/17 05:05 INR, PTT INR 1.22 (0.82-1.09) H 08/21/17 06:55 Assessment/Plan Pain relief adequate, but not quite ready to d/c [employer]. Will continue for now
[2017-09-16 08:10] LABS: GLUCOSE,RANDOM 310 mg/dL (74-106)
[2017-09-16] MEDS ORDERED: PT OWN MED DRAWER 7, Y5N ONE ×3 (08:42→20:06)
[2017-09-16] MEDS: LIPASE/PROTEASE/AMYLASE 36,000 UNIT CAPSULE PO SCH ×3 (08:50→17:57)
[2017-09-16] MEDS: ONDANSETRON 4 MG/2 ML VIAL IVPUSH PRN (08:59)
[2017-09-16] MEDS: RAMIPRIL 5 MG CAPSULE (FP) NGT SCH (09:00)
[2017-09-16] MEDS: TAMSULOSIN HCL 0.4 MG CAP.ER.24H (FP) PO SCH (09:00)
[2017-09-16] MEDS: ASPIRIN COATED 81 MG TABLET.EC PO SCH (09:00)
[2017-09-16] MEDS: MULTIVITAMINS (DAILY MVI) TABLET (FP) PO SCH (09:00)
[2017-09-16] MEDS: CLOPIDOGREL BISULFATE 75 MG TABLET (FP) NGT SCH (09:00)
[2017-09-16] MEDS: FINASTERIDE 5 MG TABLET (FP) PO SCH (09:01)
[2017-09-16] MEDS: HYDROmorphone *PCA* 6MG/30ML DISP.SYRIN PCA SCH ×2 (09:01→16:30)
[2017-09-16] MEDS: HEPARIN NA (PORCINE) 5,000 UNITS/ML 1ML VIAL SQ SCH ×2 (09:01→22:14)
[2017-09-16] MEDS: PANTOPRAZOLE SODIUM 40 MG VIAL IVPUSH SCH (09:01)
[2017-09-16] MEDS: BUDESONIDE/FORMETEROL FUMARATE 160/4.5 mcg INHALER IH SCH ×2 (09:02→22:18)
[2017-09-16] MEDS: TIOTROPIUM BROMIDE 18 MCG/INH (DEVICE W/ 5 CAPSULES) IH SCH (10:00)
--- NOTE | 2017-09-16 11:41 | PN ---
Progress Note, Physician Chief Complaint: Events noted POD #6 laparotomy - second surgery after umbilical hernia surgery Complains of intermittent abdominal discomfort post op incisional History of Present Illness: Patient was seen and examined. Awake and alert. Chart was reviewed Denies chest pain, SOB or palpitations - Current Medication List Current Medications: Active Medications Acetaminophen (Ofirmev Injection -) 1,000 mg IVPB Q6H PRN PRN Reason: PAIN Amitriptyline HCl (Elavil -) 25 mg NGT TID [facility] Last Admin: 09/16/17 05:23 Dose: 25 mg Aspirin (Ecotrin -) 81 mg PO DAILY [facility] Last Admin: 09/16/17 09:00 Dose: 81 mg Budesonide/Formoterol Fumarate (Symbicort 160/4.5mcg -) 1 puff IH BID [facility] Last Admin: 09/16/17 09:02 Dose: 1 puff Clopidogrel Bisulfate (Plavix -) 75 mg NGT DAILY [facility] Last Admin: 09/16/17 09:00 Dose: 75 mg Finasteride (Proscar -) 5 mg PO DAILY [facility] Last Admin: 09/16/17 09:01 Dose: 5 mg Heparin Sodium (Porcine) (Heparin -) 5,000 unit SQ BID [facility] Last Admin: 09/16/17 09:01 Dose: 5,000 unit IV Flush (Picc Line Flush) 8 ml IVPUSH PRN PRN PRN Reason: Protocol Last Admin: 09/11/17 01:31 Dose: 8 ml Potassium Phosphate 45 mm/Potassium Chloride 30 meq/Sodium Chloride 35 meq/ Magnesium Sulfate 2 gm/ Folic Acid 1 mg/ Multivitamins/Minerals 10 ml/ Sodium Acetate 35 meq/ Sterile Water/ Amino Acids/ Dextrose 1,500 mls @ 62.5 mls/hr IVPB DAILY@1600 [facility] Last Admin: 09/15/17 17:00 Dose: 62.5 mls/hr Insulin Aspart (Novolog Vial Sliding Scale -) 1 vial SQ ACHS [facility] PRN Reason: Protocol Last Admin: 09/16/17 06:08 Dose: 9 units Insulin Detemir (Levemir Vial) 28 units SQ HS [facility] Last Admin: 09/15/17 21:42 Dose: 28 units Insulin Detemir (Levemir Vial) 40 units SQ AM [facility] Last Admin: 09/16/17 06:08 Dose: 40 units Metoprolol Tartrate (Lopressor -) 25 mg NGT Q6H [facility] Last Admin: 09/16/17 05:23 Dose: 25 mg Montelukast Sodium (Singulair -) 10 mg PO HS [facility] Last Admin: 09/15/17 21:41 Dose: 10 mg Multivitamins/Minerals/Vitamin C (Tab-A-Vit -) 1 tab PO DAILY [facility] Last Admin: 09/16/17 09:00 Dose: 1 tab Ondansetron HCl (Zofran Odt -) 4 mg SL Q6H PRN PRN Reason: NAUSEA AND/OR VOMITING Oxycodone HCl (Roxicodone -) 5 mg PO Q6H PRN PRN Reason: PAIN LEVEL 7 - 10 Pancrelipase (Creon Dr 36,000 Units Capsule) 1 cap PO TIDCM [facility] Last Admin: 09/16/17 08:50 Dose: 1 cap Pantoprazole Sodium (Protonix Iv) 40 mg IVPUSH DAILY [facility] Last Admin: 09/16/17 09:01 Dose: 40 mg Ramipril (Altace -) 5 mg NGT DAILY [facility] Last Admin: 09/16/17 09:00 Dose: 5 mg Tamsulosin HCl (Flomax -) 0.4 mg PO DAILY@0830 [facility] Last Admin: 09/16/17 09:00 Dose: 0.4 mg Tiotropium [place] (Spiriva -) 1 puff IH DAILY [facility] Last Admin: 09/15/17 10:00 Dose: Not Given - Objective Vital Signs: Vital Signs Temperature 97.8 F 09/16/17 10:00 Pulse Rate 93 H 09/16/17 10:00 Respiratory Rate 22 09/16/17 10:00 Blood Pressure 154/97 09/16/17 10:00 O2 Sat by Pulse Oximetry (%) 97 09/15/17 21:00 Neck: Yes: Supple Cardiovascular: Yes: Regular Rate and Rhythm, S1, S2 Respiratory: Yes: Diminished Gastrointestinal: Yes: Tenderness, Other (Post op) Edema: No Additional Findings/Remarks: - Review of Systems Constitutional: denies: Chills, Fever Cardiovascular: denies: Chest Pain, Palpitations, Shortness of Breath Respiratory: denies: Cough, Hemoptysis, Orthopnea, PND, SOB, SOB on Exertion Gastrointestinal: (+) Abdominal Pain, denies: Constipation, Diarrhea, Melena, Nausea, Rectal Bleeding, Vomiting Genitourinary: denies urologic symptoms Neurological: denies: Dizziness, Headache, Seizure, Syncope Labs: CBC, BMP 09/16/17 05:05 09/16/17 05:05 INR, PTT INR 1.22 (0.82-1.09) H 08/21/17 06:55 Problem List - Problems (1) Chronic pancreatitis Code(s): K86.1 - OTHER CHRONIC PANCREATITIS Qualifiers: Pancreatitis type: unspecified pancreatitis type Qualified Code(s): K86.1 - Other chronic pancreatitis (2) 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 Code(s): E10.8 - TYPE 1 DIABETES MELLITUS WITH UNSPECIFIED COMPLICATIONS (3) Hematuria Code(s): R31.9 - HEMATURIA, UNSPECIFIED (4) Renal calculus, left Code(s): N20.0 - CALCULUS OF KIDNEY (5) ASHD (arteriosclerotic heart disease) Code(s): I25.10 - ATHSCL HEART DISEASE OF [place] CORONARY ARTERY W/O ANG PCTRS (6) Abdominal pain Code(s): R10.9 - UNSPECIFIED ABDOMINAL PAIN Qualifiers: Abdominal location: upper abdomen, unspecified Qualified Code(s): R10.10 - Upper abdominal pain, unspecified (7) Acute on chronic diastolic (congestive) heart failure Code(s): I50.33 - ACUTE ON CHRONIC DIASTOLIC (CONGESTIVE) HEART FAILURE (8) Anemia Code(s): D64.9 - ANEMIA, UNSPECIFIED (9) Asthma Code(s): J45.909 - UNSPECIFIED ASTHMA, UNCOMPLICATED Qualifiers: Asthma severity: unspecified severity (10) Diabetes mellitus Code(s): E11.9 - TYPE 2 DIABETES MELLITUS WITHOUT COMPLICATIONS Qualifiers: Diabetes mellitus type: type 2 Diabetes mellitus complication detail: with unspecified neuropathy (11) Hypertension Code(s): I10 - ESSENTIAL (PRIMARY) HYPERTENSION Qualifiers: Hypertension type: essential hypertension Qualified Code(s): I10 - Essential (primary) hypertension (12) IPMN (intraductal papillary mucinous neoplasm) Code(s): D49.0 - NEOPLASM OF UNSPECIFIED BEHAVIOR OF DIGESTIVE SYSTEM (13) GRACIE (obstructive sleep apnea) Code(s): G47.33 - OBSTRUCTIVE SLEEP APNEA (ADULT) (PEDIATRIC) (14) S/P laparotomy Code(s): Z98.890 - OTHER SPECIFIED POSTPROCEDURAL STATES Assessment/Plan 1. POD #6 exploratory laparotomy, Small bowel surgery and umbilical hernia repair 2. History of chronic pancreatitis 3. Chronic atypical chest pain syndrome, resolved 4. CAD post VA, post PCI (stents), angina pectoris 5. Diastolic LV dysfunction with chronic class 0-I NYHA classification LV failure, compensated/euvolemic 6. HTN/HCVD 7. DM 8. Hyperlipidemia 9. OSAS 10. COPD/Asthma 11. Acute on CKD resolved PLAN: 1. Continue Lopressor 25 q6 and Altace 5 qd as tolerated 2. Continue ASA 81 qd and Plavix 75 qd as tolerated 3. If BP remains elevated resume Norvasc 4. Pain management 5. Surgery follow up for post operative management 6. DVT and GI prophylaxis and TPN 7. OOB to chair as tolerated Guarded Further plans are to follow Samuel Calvillo MD
--- NOTE | 2017-09-16 12:31 | PN ---
Progress Note, Physician Chief Complaint: s/p hernia repair and bowel resection ngt t ube removed clear liquid tolerated so far on chief of police pump - Current Medication List Current Medications: Active Medications Acetaminophen (Ofirmev Injection -) 1,000 mg IVPB Q6H PRN PRN Reason: PAIN Amino Acids (Prosource No Carb Liquid Pkt) 30 ml PO BID@0800,1730 [facility] Amitriptyline HCl (Elavil -) 25 mg NGT TID [facility] Last Admin: 09/16/17 05:23 Dose: 25 mg Aspirin (Ecotrin -) 81 mg PO DAILY [facility] Last Admin: 09/16/17 09:00 Dose: 81 mg Budesonide/Formoterol Fumarate (Symbicort 160/4.5mcg -) 1 puff IH BID [facility] Last Admin: 09/16/17 09:02 Dose: 1 puff Clopidogrel Bisulfate (Plavix -) 75 mg NGT DAILY [facility] Last Admin: 09/16/17 09:00 Dose: 75 mg Finasteride (Proscar -) 5 mg PO DAILY [facility] Last Admin: 09/16/17 09:01 Dose: 5 mg Heparin Sodium (Porcine) (Heparin -) 5,000 unit SQ BID [facility] Last Admin: 09/16/17 09:01 Dose: 5,000 unit IV Flush (Picc Line Flush) 8 ml IVPUSH PRN PRN PRN Reason: Protocol Last Admin: 09/11/17 01:31 Dose: 8 ml Potassium Phosphate 45 mm/Potassium Chloride 30 meq/Sodium Chloride 35 meq/ Magnesium Sulfate 2 gm/ Folic Acid 1 mg/ Multivitamins/Minerals 10 ml/ Sodium Acetate 35 meq/ Sterile Water/ Amino Acids/ Dextrose 1,500 mls @ 62.5 mls/hr IVPB DAILY@1600 [facility] Last Admin: 09/15/17 17:00 Dose: 62.5 mls/hr Insulin Aspart (Novolog Vial Sliding Scale -) 1 vial SQ ACHS [facility] PRN Reason: Protocol Last Admin: 09/16/17 11:44 Dose: 14 units Insulin Detemir (Levemir Vial) 28 units SQ HS [facility] Last Admin: 09/15/17 21:42 Dose: 28 units Insulin Detemir (Levemir Vial) 40 units SQ AM [facility] Last Admin: 09/16/17 06:08 Dose: 40 units Metoprolol Tartrate (Lopressor -) 25 mg NGT Q6H [facility] Last Admin: 09/16/17 05:23 Dose: 25 mg Montelukast Sodium (Singulair -) 10 mg PO HS [facility] Last Admin: 09/15/17 21:41 Dose: 10 mg Multivitamins/Minerals/Vitamin C (Tab-A-Vit -) 1 tab PO DAILY [facility] Last Admin: 09/16/17 09:00 Dose: 1 tab Ondansetron HCl (Zofran Odt -) 4 mg SL Q6H PRN PRN Reason: NAUSEA AND/OR VOMITING Oxycodone HCl (Roxicodone -) 5 mg PO Q6H PRN PRN Reason: PAIN LEVEL 7 - 10 Pancrelipase (Creon Dr 36,000 Units Capsule) 1 cap PO TIDCM [facility] Last Admin: 09/16/17 08:50 Dose: 1 cap Pantoprazole Sodium (Protonix -) 40 mg PO DAILY [facility] Ramipril (Altace -) 5 mg NGT DAILY [facility] Last Admin: 09/16/17 09:00 Dose: 5 mg Tamsulosin HCl (Flomax -) 0.4 mg PO DAILY@0830 [facility] Last Admin: 09/16/17 09:00 Dose: 0.4 mg Tiotropium [place] (Spiriva -) 1 puff IH DAILY [facility] Last Admin: 09/15/17 10:00 Dose: Not Given - Objective Vital Signs: Vital Signs Temperature 97.8 F 09/16/17 10:00 Pulse Rate 93 H 09/16/17 10:00 Respiratory Rate 22 09/16/17 10:00 Blood Pressure 154/97 09/16/17 10:00 O2 Sat by Pulse Oximetry (%) 97 09/15/17 21:00 Constitutional: Yes: Calm Cardiovascular: Yes: Regular Rate and Rhythm, S1, S2 Respiratory: Yes: CTA Bilaterally, Diminished (at the bases) Gastrointestinal: Yes: Normal Bowel Sounds, Soft, Other (midline dressing, abdominal binder) Edema: No Neurological: Yes: Alert, Oriented Labs: CBC, BMP 09/16/17 05:05 09/16/17 05:05 INR, PTT INR 1.22 (0.82-1.09) H 08/21/17 06:55 Problem List - Problems (1) SBO (small bowel obstruction) Assessment/Plan: repeat ct scan done showed high grade partial SBO due to incarcerated umbilical hernia s/p hernia repair and bowel resection POD 6 clear liquid diet today now ng tube removed chief of police pump for pain control dvt ppx Code(s): K56.609 - UNSP INTESTNL OBST, UNSP TO PARTIAL VERSUS COMPLETE OBST (2) ASHD (arteriosclerotic heart disease) Assessment/Plan: aspirin,plavix,lopresor and altace Code(s): I25.10 - ATHSCL HEART DISEASE OF [place] CORONARY ARTERY W/O ANG PCTRS (3) Hypokalemia Assessment/Plan: potassium is ok Code(s): E87.6 - HYPOKALEMIA (4) Hypertension Assessment/Plan: lopressor and altace Code(s): I10 - ESSENTIAL (PRIMARY) HYPERTENSION Qualifiers: Hypertension type: essential hypertension Qualified Code(s): I10 - Essential (primary) hypertension (5) BPH (benign prostatic hyperplasia) Assessment/Plan: flomax Code(s): N40.0 - BENIGN PROSTATIC HYPERPLASIA WITHOUT LOWER URINRY TRACT SYMP (6) COPD (chronic obstructive pulmonary disease) Assessment/Plan: bronchodilator nebulizers Code(s): J44.9 - CHRONIC OBSTRUCTIVE PULMONARY DISEASE, UNSPECIFIED (7) 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
--- NOTE | 2017-09-16 13:20 | PN ---
Progress Note (short form) - Note Progress Note: No new events +BM On diabetic clears Vital Signs Period Temp Pulse Resp BP Sys/Gates Pulse Ox Last 24 Hr 97.8 F-99.6 F 85-106 18-22 142-165/75-97 97 Abd soft, wound c/d/i, ND CBC, BMP 09/16/17 05:05 09/16/17 05:05 Glycemic control Possible full liquid diet in am Ambulate Abdominal binder at all times Problem List - Problems (1) Umbilical hernia Code(s): K42.9 - UMBILICAL HERNIA WITHOUT OBSTRUCTION OR GANGRENE Qualifiers: Obstruction and gangrene presence: without obstruction or gangrene Qualified Code(s): K42.9 - Umbilical hernia without obstruction or gangrene
[2017-09-16] MEDS: PANTOPRAZOLE 40 MG TABLET (FP) PO SCH (13:48)
--- NOTE | 2017-09-16 15:23 | PN ---
Progress Note (short form) - Note Progress Note: Renal follow up for Hypokalemia/TPN Pt seen and examined at the bedside no acute complaints on liquid diet Vital Signs Temperature 98.7 F 09/16/17 14:00 Pulse Rate 91 H 09/16/17 14:00 Respiratory Rate 22 09/16/17 10:00 Blood Pressure 174/91 09/16/17 14:00 O2 Sat by Pulse Oximetry (%) 96 09/16/17 09:00 Intake & Output 09/13/17 09/14/17 09/15/17 09/16/17 23:59 23:59 23:59 23:59 Intake Total 3160 1600 1372.5 1558 Output Total 500 1400 1750 715 Balance 2660 200 -377.5 843 Weight 112.128 kg 111.811 kg NAD awake and alert + abd tenderness No LE edema CBC, BMP 09/16/17 05:05 09/16/17 05:05 Current Medications Acetaminophen (Ofirmev Injection -) 1,000 mg IVPB Q6H PRN PRN Reason: PAIN Amino Acids (Prosource No Carb Liquid Pkt) 30 ml PO BID@0800,1730 [facility] Amitriptyline HCl (Elavil -) 25 mg NGT TID [facility] Last Admin: 09/16/17 13:47 Dose: 25 mg Aspirin (Ecotrin -) 81 mg PO DAILY [facility] Last Admin: 09/16/17 09:00 Dose: 81 mg Budesonide/Formoterol Fumarate (Symbicort 160/4.5mcg -) 1 puff IH BID [facility] Last Admin: 09/16/17 09:02 Dose: 1 puff Clopidogrel Bisulfate (Plavix -) 75 mg NGT DAILY [facility] Last Admin: 09/16/17 09:00 Dose: 75 mg Finasteride (Proscar -) 5 mg PO DAILY [facility] Last Admin: 09/16/17 09:01 Dose: 5 mg Heparin Sodium (Porcine) (Heparin -) 5,000 unit SQ BID [facility] Last Admin: 09/16/17 09:01 Dose: 5,000 unit IV Flush (Picc Line Flush) 8 ml IVPUSH PRN PRN PRN Reason: Protocol Last Admin: 09/11/17 01:31 Dose: 8 ml Potassium Phosphate 45 mm/Potassium Chloride 30 meq/Sodium Chloride 35 meq/ Magnesium Sulfate 2 gm/ Folic Acid 1 mg/ Multivitamins/Minerals 10 ml/ Sodium Acetate 35 meq/ Sterile Water/ Amino Acids/ Dextrose 1,500 mls @ 62.5 mls/hr IVPB DAILY@1600 [facility] Stop: 09/16/17 15:59 Last Admin: 09/15/17 17:00 Dose: 62.5 mls/hr Potassium Phosphate 30 mm/Potassium Chloride 30 meq/Sodium Chloride 30 meq/ Magnesium Sulfate 1 gm/ Folic Acid 1 mg/ Multivitamins/Minerals 10 ml/ Sodium Acetate 30 meq/ Calcium Gluconate 1, 000 mg/ Sterile Water/ Amino Acids/ Dextrose 1,500 mls @ 62.5 mls/hr IVPB DAILY@1600 [facility] Fat Emulsion Intravenous (Intralipid -) 250 mls @ 20.833 mls/hr IV DAILY@2200 [facility] Insulin Aspart (Novolog Vial Sliding Scale -) 1 vial SQ [facility] PRN Reason: Protocol Last Admin: 09/16/17 11:44 Dose: 14 units Insulin Detemir (Levemir Vial) 28 units SQ [facility] Last Admin: 09/15/17 21:42 Dose: 28 units Insulin Detemir (Levemir Vial) 40 units SQ AM [facility] Last Admin: 09/16/17 06:08 Dose: 40 units Metoprolol Tartrate (Lopressor -) 25 mg NGT Q6H [facility] Last Admin: 09/16/17 10:00 Dose: 25 mg Montelukast Sodium (Singulair -) 10 mg PO [facility] Last Admin: 09/15/17 21:41 Dose: 10 mg Multivitamins/Minerals/Vitamin C (Tab-A-Vit -) 1 tab PO DAILY [facility] Last Admin: 09/16/17 09:00 Dose: 1 tab Ondansetron HCl (Zofran Odt -) 4 mg SL Q6H PRN PRN Reason: NAUSEA AND/OR VOMITING Oxycodone HCl (Roxicodone -) 5 mg PO Q6H PRN PRN Reason: PAIN LEVEL 7 - 10 Pancrelipase (Creon Dr 36,000 Units Capsule) 1 cap PO TIDCM [facility] Last Admin: 09/16/17 13:00 Dose: 1 cap Pantoprazole Sodium (Protonix -) 40 mg PO DAILY [facility] Last Admin: 09/16/17 13:48 Dose: Not Given Ramipril (Altace -) 5 mg NGT DAILY [facility] Last Admin: 09/16/17 09:00 Dose: 5 mg Tamsulosin HCl (Flomax -) 0.4 mg PO DAILY@0830 [facility] Last Admin: 09/16/17 09:00 Dose: 0.4 mg Tiotropium [place] (Spiriva -) 1 puff IH DAILY [facility] Last Admin: 09/15/17 10:00 Dose: Not Given 61 year old gentleman with PMhx of CAD s/p stents and CABG, Chronic Pancreatitis , Hypertension, HLD who presented with abd pain and now s/p open resection of incarcerated umbilical hernia with ileus and prolonged NPO status. #s/p open resection of incarcerated hernia with prolonged NPO status will continue TPN Today electrolytes adjusted based on today labs advance diet as per surgery Thank you Az Nelson DO
--- NOTE | 2017-09-16 15:48 | PN ---
Progress Note, Physician History of Present Illness: Pt. alert, no chest pain, palpitations or dyspnea. Taking p.o. and having B.M.s - Current Medication List Current Medications: Active Medications Acetaminophen (Ofirmev Injection -) 1,000 mg IVPB Q6H PRN PRN Reason: PAIN Amino Acids (Prosource No Carb Liquid Pkt) 30 ml PO BID@0800,1730 [facility] Amitriptyline HCl (Elavil -) 25 mg NGT TID [facility] Last Admin: 09/16/17 13:47 Dose: 25 mg Aspirin (Ecotrin -) 81 mg PO DAILY [facility] Last Admin: 09/16/17 09:00 Dose: 81 mg Budesonide/Formoterol Fumarate (Symbicort 160/4.5mcg -) 1 puff IH BID [facility] Last Admin: 09/16/17 09:02 Dose: 1 puff Clopidogrel Bisulfate (Plavix -) 75 mg NGT DAILY [facility] Last Admin: 09/16/17 09:00 Dose: 75 mg Finasteride (Proscar -) 5 mg PO DAILY [facility] Last Admin: 09/16/17 09:01 Dose: 5 mg Heparin Sodium (Porcine) (Heparin -) 5,000 unit SQ BID [facility] Last Admin: 09/16/17 09:01 Dose: 5,000 unit IV Flush (Picc Line Flush) 8 ml IVPUSH PRN PRN PRN Reason: Protocol Last Admin: 09/11/17 01:31 Dose: 8 ml Potassium Phosphate 45 mm/Potassium Chloride 30 meq/Sodium Chloride 35 meq/ Magnesium Sulfate 2 gm/ Folic Acid 1 mg/ Multivitamins/Minerals 10 ml/ Sodium Acetate 35 meq/ Sterile Water/ Amino Acids/ Dextrose 1,500 mls @ 62.5 mls/hr IVPB DAILY@1600 [facility] Stop: 09/16/17 15:59 Last Admin: 09/15/17 17:00 Dose: 62.5 mls/hr Potassium Phosphate 30 mm/Potassium Chloride 30 meq/Sodium Chloride 30 meq/ Magnesium Sulfate 1 gm/ Folic Acid 1 mg/ Multivitamins/Minerals 10 ml/ Sodium Acetate 30 meq/ Calcium Gluconate 1, 000 mg/ Sterile Water/ Amino Acids/ Dextrose 1,500 mls @ 62.5 mls/hr IVPB DAILY@1600 [facility] Fat Emulsion Intravenous (Intralipid -) 250 mls @ 20.833 mls/hr IV DAILY@2200 [facility] Insulin Aspart (Novolog Vial Sliding Scale -) 1 vial SQ ACHS [facility] PRN Reason: Protocol Last Admin: 09/16/17 11:44 Dose: 14 units Insulin Detemir (Levemir Vial) 28 units SQ HS [facility] Last Admin: 09/15/17 21:42 Dose: 28 units Insulin Detemir (Levemir Vial) 40 units SQ AM [facility] Last Admin: 09/16/17 06:08 Dose: 40 units Metoprolol Tartrate (Lopressor -) 25 mg NGT Q6H [facility] Last Admin: 09/16/17 10:00 Dose: 25 mg Montelukast Sodium (Singulair -) 10 mg PO HS [facility] Last Admin: 09/15/17 21:41 Dose: 10 mg Ondansetron HCl (Zofran Odt -) 4 mg SL Q6H PRN PRN Reason: NAUSEA AND/OR VOMITING Oxycodone HCl (Roxicodone -) 5 mg PO Q6H PRN PRN Reason: PAIN LEVEL 7 - 10 Pancrelipase (Creon Dr 36,000 Units Capsule) 1 cap PO TIDCM [facility] Last Admin: 09/16/17 13:00 Dose: 1 cap Pantoprazole Sodium (Protonix -) 40 mg PO DAILY [facility] Last Admin: 09/16/17 13:48 Dose: Not Given Ramipril (Altace -) 5 mg NGT DAILY [facility] Last Admin: 09/16/17 09:00 Dose: 5 mg Tamsulosin HCl (Flomax -) 0.4 mg PO DAILY@0830 [facility] Last Admin: 09/16/17 09:00 Dose: 0.4 mg Tiotropium [place] (Spiriva -) 1 puff IH DAILY [facility] Last Admin: 09/15/17 10:00 Dose: Not Given - Objective Vital Signs: Vital Signs Temperature 98.7 F 09/16/17 14:00 Pulse Rate 91 H 09/16/17 14:00 Respiratory Rate 22 09/16/17 10:00 Blood Pressure 174/91 09/16/17 14:00 O2 Sat by Pulse Oximetry (%) 96 09/16/17 09:00 Constitutional: Yes: No Distress Eyes: No: Sclera Icterus HENT: Yes: Atraumatic, Normocephalic Neck: Yes: Supple, Trachea Midline (thracheostomy site clean and dry) Cardiovascular: Yes: Regular Rate and Rhythm, JVD Respiratory: Yes: CTA Bilaterally Gastrointestinal: Yes: Soft Extremities: No: Calf Tenderness Edema: No Neurological: Yes: Alert, Oriented Labs: CBC, BMP 09/16/17 05:05 09/16/17 05:05 INR, PTT INR 1.22 (0.82-1.09) H 08/21/17 06:55 Problem List - Problems (1) Umbilical hernia Code(s): K42.9 - UMBILICAL HERNIA WITHOUT OBSTRUCTION OR GANGRENE Qualifiers: Obstruction and gangrene presence: without obstruction or gangrene Qualified Code(s): K42.9 - Umbilical hernia without obstruction or gangrene (2) COPD (chronic obstructive pulmonary disease) Code(s): J44.9 - CHRONIC OBSTRUCTIVE PULMONARY DISEASE, UNSPECIFIED (3) Coronary artery disease Code(s): I25.10 - ATHSCL HEART DISEASE OF [place] CORONARY ARTERY W/O ANG PCTRS (4) Diabetes mellitus Code(s): E11.9 - TYPE 2 DIABETES MELLITUS WITHOUT COMPLICATIONS Qualifiers: Diabetes mellitus type: type 2 Diabetes mellitus complication detail: with unspecified neuropathy (5) Pancreatitis Code(s): K85.9 - ACUTE PANCREATITIS, UNSPECIFIED * DO NOT USE * Qualifiers: Chronicity: acute Pancreatitis type: other (6) Sleep apnea Code(s): G47.30 - SLEEP APNEA, UNSPECIFIED (7) Tracheostomy in place Code(s): Z98.89 - OTHER SPECIFIED POSTPROCEDURAL STATES * DO NOT USE * Assessment/Plan Respiratory status is stable. S/P abdominal surgery x 2. Pt taking p.o. liquids. + B.M. Suggest: continue bronchodilators continue current treatment per surgeon
[2017-09-16] MEDS: [UNRECOGNIZED DRUG - OTHER] IVPB SCH (17:56)
[2017-09-16] MEDS: POTASSIUM PHOSPHATE IVPB SCH (17:56)
[2017-09-16] MEDS: SODIUM CHLORIDE IVPB SCH (17:56)
[2017-09-16] MEDS: POTASSIUM CHLORIDE IVPB SCH (17:56)
[2017-09-16] MEDS: AMINO ACIDS/PROTEIN HYDROLYS 30 ML LIQUID.PKT PO SCH (17:57)
[2017-09-16] MEDS: ONDANSETRON *ODT* 4 MG TABLET SL PRN (20:11)
[2017-09-16] MEDS: PICC LINE 8 ML FLUSH PROTOCOL IVPUSH PRN (20:12)
[2017-09-16] MEDS ORDERED: FAT EMULSIONS 250 ML IV SCH (22:00)
[2017-09-16] MEDS: MONTELUKAST NA 10 MG TABLET PO SCH (22:13)
[2017-09-17] MEDS: ONDANSETRON *ODT* 4 MG TABLET SL PRN ×2 (03:29→21:21)
[2017-09-17] MEDS: METOPROLOL TARTRATE 25 MG TABLET (FP) NGT SCH ×4 (05:29→21:54)
[2017-09-17] MEDS: AMITRIPTYLINE HCL 25 MG TABLET (FP) NGT SCH ×3 (05:29→21:20)
[2017-09-17] MEDS: INSULIN SLIDING SCALE (NOVOLOG) 1 VIAL SQ SCH ×4 (06:20→21:15)
[2017-09-17] MEDS: INSULIN DETEMIR 100 UNITS/ML MDV SQ SCH ×2 (06:20→21:17)
[2017-09-17] MEDS: PANTOPRAZOLE 40 MG TABLET (FP) PO SCH (09:35)
[2017-09-17] MEDS: AMINO ACIDS/PROTEIN HYDROLYS 30 ML LIQUID.PKT PO SCH ×2 (09:35→17:08)
[2017-09-17] MEDS: ASPIRIN COATED 81 MG TABLET.EC PO SCH (09:35)
[2017-09-17] MEDS: RAMIPRIL 5 MG CAPSULE (FP) NGT SCH (09:36)
[2017-09-17] MEDS: FINASTERIDE 5 MG TABLET (FP) PO SCH (09:36)
[2017-09-17] MEDS: CLOPIDOGREL BISULFATE 75 MG TABLET (FP) NGT SCH (09:36)
[2017-09-17] MEDS: TAMSULOSIN HCL 0.4 MG CAP.ER.24H (FP) PO SCH (09:36)
[2017-09-17] MEDS: HEPARIN NA (PORCINE) 5,000 UNITS/ML 1ML VIAL SQ SCH ×2 (09:36→21:18)
[2017-09-17] MEDS: LIPASE/PROTEASE/AMYLASE 36,000 UNIT CAPSULE PO SCH ×3 (09:38→17:19)
[2017-09-17] MEDS: BUDESONIDE/FORMETEROL FUMARATE 160/4.5 mcg INHALER IH SCH ×2 (09:44→21:35)
[2017-09-17] MEDS: TIOTROPIUM BROMIDE 18 MCG/INH (DEVICE W/ 5 CAPSULES) IH SCH (09:45)
--- NOTE | 2017-09-17 11:36 | PN ---
Progress Note, Physician History of Present Illness: POD# 7 exploratory lap, ZACHERY, SB resection, having BM, tolerating full liquid diet, afebrile. Brief episodes of sharp, atypical chest discomfort with spontaneous remission. - Current Medication List Current Medications: Active Medications Acetaminophen (Ofirmev Injection -) 1,000 mg IVPB Q6H PRN PRN Reason: PAIN Amino Acids (Prosource No Carb Liquid Pkt) 30 ml PO BID@0800,1730 [facility] Last Admin: 09/17/17 09:35 Dose: 30 ml Amitriptyline HCl (Elavil -) 25 mg NGT TID [facility] Last Admin: 09/17/17 05:29 Dose: 25 mg Aspirin (Ecotrin -) 81 mg PO DAILY [facility] Last Admin: 09/17/17 09:35 Dose: 81 mg Budesonide/Formoterol Fumarate (Symbicort 160/4.5mcg -) 1 puff IH BID [facility] Last Admin: 09/17/17 09:44 Dose: 1 puff Clopidogrel Bisulfate (Plavix -) 75 mg NGT DAILY [facility] Last Admin: 09/17/17 09:36 Dose: 75 mg Finasteride (Proscar -) 5 mg PO DAILY [facility] Last Admin: 09/17/17 09:36 Dose: 5 mg Heparin Sodium (Porcine) (Heparin -) 5,000 unit SQ BID [facility] Last Admin: 09/17/17 09:36 Dose: 5,000 unit Hydromorphone HCl (Dilaudid Flue Dust [employer]orer -) 6 mg [employer] [facility] PRN Reason: Protocol Last Admin: 09/16/17 16:30 Dose: 6 mg IV Flush (Picc Line Flush) 8 ml IVPUSH PRN PRN PRN Reason: Protocol Last Admin: 09/16/17 20:12 Dose: 8 ml Potassium Phosphate 30 mm/Potassium Chloride 30 meq/Sodium Chloride 30 meq/ Magnesium Sulfate 1 gm/ Folic Acid 1 mg/ Multivitamins/Minerals 10 ml/ Sodium Acetate 30 meq/ Calcium Gluconate 1, 000 mg/ Sterile Water/ Amino Acids/ Dextrose 1,500 mls @ 62.5 mls/hr IVPB DAILY@1600 [facility] Last Admin: 09/16/17 17:56 Dose: 62.5 mls/hr Fat Emulsion Intravenous (Intralipid -) 250 mls @ 20.833 mls/hr IV DAILY@2200 [facility] Last Admin: 09/16/17 22:16 Dose: 20.833 mls/hr Insulin Aspart (Novolog Vial Sliding Scale -) 1 vial SQ ACHS [facility] PRN Reason: Protocol Last Admin: 09/17/17 06:20 Dose: 9 units Insulin Detemir (Levemir Vial) 28 units SQ HS [facility] Last Admin: 09/16/17 22:14 Dose: 28 units Insulin Detemir (Levemir Vial) 40 units SQ AM [facility] Last Admin: 09/17/17 06:20 Dose: 40 units Metoprolol Tartrate (Lopressor -) 25 mg NGT Q6H [facility] Last Admin: 09/17/17 09:36 Dose: 25 mg Montelukast Sodium (Singulair -) 10 mg PO [facility] Last Admin: 09/16/17 22:13 Dose: 10 mg Ondansetron HCl (Zofran Odt -) 4 mg SL Q6H PRN PRN Reason: NAUSEA AND/OR VOMITING Last Admin: 09/17/17 03:29 Dose: 4 mg Oxycodone HCl (Roxicodone -) 5 mg PO Q6H PRN PRN Reason: PAIN LEVEL 7 - 10 Pancrelipase (Creon Dr 36,000 Units Capsule) 1 cap PO TIDCM [facility] Last Admin: 09/17/17 09:38 Dose: Not Given Pantoprazole Sodium (Protonix -) 40 mg PO DAILY [facility] Last Admin: 09/17/17 09:35 Dose: 40 mg Ramipril (Altace -) 5 mg NGT DAILY [facility] Last Admin: 09/17/17 09:36 Dose: 5 mg Tamsulosin HCl (Flomax -) 0.4 mg PO DAILY@0830 [facility] Last Admin: 09/17/17 09:36 Dose: 0.4 mg Tiotropium [place] (Spiriva -) 1 puff IH DAILY [facility] Last Admin: 09/17/17 09:45 Dose: Not Given - Objective Vital Signs: Vital Signs Temperature 97.9 F 09/17/17 07:57 Pulse Rate 95 H 09/17/17 07:57 Respiratory Rate 16 09/17/17 08:00 Blood Pressure 158/98 09/17/17 07:57 O2 Sat by Pulse Oximetry (%) 97 09/17/17 08:00 Constitutional: Yes: No Distress, Calm Neck: Yes: Supple Cardiovascular: Yes: Regular Rate and Rhythm Respiratory: Yes: Regular, Diminished Gastrointestinal: Yes: Normal Bowel Sounds, Soft Edema: No Labs: CBC, BMP 09/16/17 05:05 09/16/17 05:05 INR, PTT INR 1.22 (0.82-1.09) H 08/21/17 06:55 - ....Imaging EKG: Report Reviewed (Tele: Paroxysmal atrial tachycardia, PAC) Problem List - Problems (1) Chest pain Code(s): R07.9 - CHEST PAIN, UNSPECIFIED Qualifiers: Chest pain type: unspecified Qualified Code(s): R07.9 - Chest pain, unspecified (2) Chronic pancreatitis Code(s): K86.1 - OTHER CHRONIC PANCREATITIS Qualifiers: Pancreatitis type: unspecified pancreatitis type Qualified Code(s): K86.1 - Other chronic pancreatitis (3) Abdominal pain Code(s): R10.9 - UNSPECIFIED ABDOMINAL PAIN Qualifiers: Abdominal location: upper abdomen, unspecified Qualified Code(s): R10.10 - Upper abdominal pain, unspecified (4) Asthma Code(s): J45.909 - UNSPECIFIED ASTHMA, UNCOMPLICATED Qualifiers: Asthma severity: unspecified severity (5) COPD (chronic obstructive pulmonary disease) Code(s): J44.9 - CHRONIC OBSTRUCTIVE PULMONARY DISEASE, UNSPECIFIED (6) Chronic diastolic (congestive) heart failure Code(s): I50.32 - CHRONIC DIASTOLIC (CONGESTIVE) HEART FAILURE (7) Coronary artery disease Code(s): I25.10 - ATHSCL HEART DISEASE OF [place] CORONARY ARTERY W/O ANG PCTRS (8) Diabetes mellitus Code(s): E11.9 - TYPE 2 DIABETES MELLITUS WITHOUT COMPLICATIONS Qualifiers: Diabetes mellitus type: type 2 Diabetes mellitus complication detail: with unspecified neuropathy (9) Esophagitis determined by endoscopy Code(s): K20.9 - ESOPHAGITIS, UNSPECIFIED (10) Hyperlipidemia Code(s): E78.5 - HYPERLIPIDEMIA, UNSPECIFIED (11) Hypertension Code(s): I10 - ESSENTIAL (PRIMARY) HYPERTENSION Qualifiers: Hypertension type: essential hypertension Qualified Code(s): I10 - Essential (primary) hypertension (12) Hypertension associated with diabetes Code(s): E11.59 - TYPE 2 DIABETES MELLITUS WITH OTH CIRCULATORY COMPLICATIONS; I10 - ESSENTIAL (PRIMARY) HYPERTENSION (13) IPMN (intraductal papillary mucinous neoplasm) Code(s): D49.0 - NEOPLASM OF UNSPECIFIED BEHAVIOR OF DIGESTIVE SYSTEM (14) Myocardial infarct Code(s): I21.3 - ST ELEVATION (STEMI) MYOCARDIAL INFARCTION OF UNSP SITE (15) GRACIE (obstructive sleep apnea) Code(s): G47.33 - OBSTRUCTIVE SLEEP APNEA (ADULT) (PEDIATRIC) (16) Type 2 diabetes mellitus with diabetic neuropathy Code(s): E11.40 - TYPE 2 DIABETES MELLITUS WITH DIABETIC NEUROPATHY, UNSP (17) Renal calculus, left Code(s): N20.0 - CALCULUS OF KIDNEY (18) Umbilical hernia Code(s): K42.9 - UMBILICAL HERNIA WITHOUT OBSTRUCTION OR GANGRENE Qualifiers: Obstruction and gangrene presence: without obstruction or gangrene Qualified Code(s): K42.9 - Umbilical hernia without obstruction or gangrene (19) S/P lumbar spinal fusion Code(s): Z98.1 - ARTHRODESIS STATUS (20) Tracheostomy in place Code(s): Z98.89 - OTHER SPECIFIED POSTPROCEDURAL STATES * DO NOT USE * (21) H/O umbilical hernia repair Code(s): Z98.890 - OTHER SPECIFIED POSTPROCEDURAL STATES; Z87.19 - PERSONAL HISTORY OF OTHER DISEASES OF THE DIGESTIVE SYSTEM (22) SBO (small bowel obstruction) Code(s): K56.609 - UNSP INTESTNL OBST, UNSP TO PARTIAL VERSUS COMPLETE OBST (23) Paroxysmal SVT (supraventricular tachycardia) Code(s): I47.1 - SUPRAVENTRICULAR TACHYCARDIA Assessment/Plan 1. POD #7 exploratory laparotomy, Small bowel surgery and umbilical hernia repair 2. History of chronic pancreatitis 3. Chronic atypical chest pain syndrome, resolved 4. CAD post [place], post PCI (stents), angina pectoris 5. Diastolic LV dysfunction with chronic class 0-I NYHA classification LV failure, compensated/euvolemic 6. HTN/HCVD 7. DM 8. Hyperlipidemia 9. OSAS 10. COPD/Asthma 11. Acute on CKD resolved 12. Paroxysmal atrial tachycardia and PAC PLAN: 1. Continue Lopressor 25 q6 and increase Altace 10 qd as tolerated 2. Continue ASA 81 qd and Plavix 75 qd as tolerated 3. If BP remains elevated resume Norvasc 4. Pain management, advance diet as tolerated 5. DVT and GI prophylaxis and TPN 6. OOB to chair as tolerated
--- NOTE | 2017-09-17 12:09 | PN ---
Progress Note (short form) - Note Progress Note: ANESTHESIOLOGY 61M s/p UHR and SBR POD #7 with dilaudid VIDEO CONTROL OPERATOR for pain control. C/o 6/10 pain, generally controlled and tolerable. Out of bed. Mild nausea, denies vomiting. Starting to tolerate PO liquids. Vital Signs Temperature 97.9 F 09/17/17 07:57 Pulse Rate 95 H 09/17/17 07:57 Respiratory Rate 16 09/17/17 08:00 Blood Pressure 158/98 09/17/17 07:57 O2 Sat by Pulse Oximetry (%) 97 09/17/17 08:00 Active Medications Acetaminophen (Ofirmev Injection -) 1,000 mg IVPB Q6H PRN PRN Reason: PAIN Amino Acids (Prosource No Carb Liquid Pkt) 30 ml PO BID@0800,1730 [facility] Last Admin: 09/17/17 09:35 Dose: 30 ml Amitriptyline HCl (Elavil -) 25 mg NGT TID [facility] Last Admin: 09/17/17 05:29 Dose: 25 mg Aspirin (Ecotrin -) 81 mg PO DAILY [facility] Last Admin: 09/17/17 09:35 Dose: 81 mg Budesonide/Formoterol Fumarate (Symbicort 160/4.5mcg -) 1 puff IH BID [facility] Last Admin: 09/17/17 09:44 Dose: 1 puff Clopidogrel Bisulfate (Plavix -) 75 mg NGT DAILY [facility] Last Admin: 09/17/17 09:36 Dose: 75 mg Finasteride (Proscar -) 5 mg PO DAILY [facility] Last Admin: 09/17/17 09:36 Dose: 5 mg Heparin Sodium (Porcine) (Heparin -) 5,000 unit SQ BID [facility] Last Admin: 09/17/17 09:36 Dose: 5,000 unit Hydromorphone HCl (Dilaudid Bark Spudder -) 6 mg VIDEO CONTROL OPERATOR VIDEO CONTROL OPERATOR MARK PRN Reason: Protocol Last Admin: 09/16/17 16:30 Dose: 6 mg IV Flush (Picc Line Flush) 8 ml IVPUSH PRN PRN PRN Reason: Protocol Last Admin: 09/16/17 20:12 Dose: 8 ml Potassium Phosphate 30 mm/Potassium Chloride 30 meq/Sodium Chloride 30 meq/ Magnesium Sulfate 1 gm/ Folic Acid 1 mg/ Multivitamins/Minerals 10 ml/ Sodium Acetate 30 meq/ Calcium Gluconate 1, 000 mg/ Sterile Water/ Amino Acids/ Dextrose 1,500 mls @ 62.5 mls/hr IVPB DAILY@1600 [facility] Last Admin: 09/16/17 17:56 Dose: 62.5 mls/hr Fat Emulsion Intravenous (Intralipid -) 250 mls @ 20.833 mls/hr IV DAILY@2200 [facility] Last Admin: 09/16/17 22:16 Dose: 20.833 mls/hr Insulin Aspart (Novolog Vial Sliding Scale -) 1 vial SQ ACHS [facility] PRN Reason: Protocol Last Admin: 09/17/17 06:20 Dose: 9 units Insulin Detemir (Levemir Vial) 28 units SQ HS [facility] Last Admin: 09/16/17 22:14 Dose: 28 units Insulin Detemir (Levemir Vial) 40 units SQ AM [facility] Last Admin: 09/17/17 06:20 Dose: 40 units Metoprolol Tartrate (Lopressor -) 25 mg NGT Q6H [facility] Last Admin: 09/17/17 09:36 Dose: 25 mg Montelukast Sodium (Singulair -) 10 mg PO HS [facility] Last Admin: 09/16/17 22:13 Dose: 10 mg Ondansetron HCl (Zofran Odt -) 4 mg SL Q6H PRN PRN Reason: NAUSEA AND/OR VOMITING Last Admin: 09/17/17 03:29 Dose: 4 mg Oxycodone HCl (Roxicodone -) 5 mg PO Q6H PRN PRN Reason: PAIN LEVEL 7 - 10 Pancrelipase (Stacy Dr 36,000 Units Capsule) 1 cap PO TIDCM [facility] Last Admin: 09/17/17 09:38 Dose: Not Given Pantoprazole Sodium (Protonix -) 40 mg PO DAILY [facility] Last Admin: 09/17/17 09:35 Dose: 40 mg Ramipril (Altace -) 10 mg PO DAILY [facility] Tamsulosin HCl (Flomax -) 0.4 mg PO DAILY@0830 [facility] Last Admin: 09/17/17 09:36 Dose: 0.4 mg Tiotropium [place] (Spiriva -) 1 puff IH DAILY [facility] Last Admin: 09/17/17 09:45 Dose: Not Given Gen: Awake, alert Pain controlled. Continue VIDEO CONTROL OPERATOR today, D/C in AM and switch to oral analgesics.
--- NOTE | 2017-09-17 12:19 | PN ---
Progress Note, Physician Chief Complaint: AWAKE MORE ALERT TOLERATING LIQUIDS ON TECH WRITER DILAUDID STILL - Current Medication List Current Medications: Active Medications Acetaminophen (Ofirmev Injection -) 1,000 mg IVPB Q6H PRN PRN Reason: PAIN Amino Acids (Prosource No Carb Liquid Pkt) 30 ml PO BID@0800,1730 [facility] Last Admin: 09/17/17 09:35 Dose: 30 ml Amitriptyline HCl (Elavil -) 25 mg NGT TID [facility] Last Admin: 09/17/17 05:29 Dose: 25 mg Aspirin (Ecotrin -) 81 mg PO DAILY [facility] Last Admin: 09/17/17 09:35 Dose: 81 mg Budesonide/Formoterol Fumarate (Symbicort 160/4.5mcg -) 1 puff IH BID [facility] Last Admin: 09/17/17 09:44 Dose: 1 puff Clopidogrel Bisulfate (Plavix -) 75 mg NGT DAILY [facility] Last Admin: 09/17/17 09:36 Dose: 75 mg Finasteride (Proscar -) 5 mg PO DAILY [facility] Last Admin: 09/17/17 09:36 Dose: 5 mg Heparin Sodium (Porcine) (Heparin -) 5,000 unit SQ BID [facility] Last Admin: 09/17/17 09:36 Dose: 5,000 unit Hydromorphone HCl (Dilaudid Home Economics Teacher -) 6 mg TECH WRITER TECH WRITER MARK PRN Reason: Protocol Last Admin: 09/16/17 16:30 Dose: 6 mg IV Flush (Picc Line Flush) 8 ml IVPUSH PRN PRN PRN Reason: Protocol Last Admin: 09/16/17 20:12 Dose: 8 ml Potassium Phosphate 30 mm/Potassium Chloride 30 meq/Sodium Chloride 30 meq/ Magnesium Sulfate 1 gm/ Folic Acid 1 mg/ Multivitamins/Minerals 10 ml/ Sodium Acetate 30 meq/ Calcium Gluconate 1, 000 mg/ Sterile Water/ Amino Acids/ Dextrose 1,500 mls @ 62.5 mls/hr IVPB DAILY@1600 [facility] Last Admin: 09/16/17 17:56 Dose: 62.5 mls/hr Fat Emulsion Intravenous (Intralipid -) 250 mls @ 20.833 mls/hr IV DAILY@2200 [facility] Last Admin: 09/16/17 22:16 Dose: 20.833 mls/hr Insulin Aspart (Novolog Vial Sliding Scale -) 1 vial SQ ACHS [facility] PRN Reason: Protocol Last Admin: 09/17/17 06:20 Dose: 9 units Insulin Detemir (Levemir Vial) 28 units SQ HS [facility] Last Admin: 09/16/17 22:14 Dose: 28 units Insulin Detemir (Levemir Vial) 40 units SQ AM [facility] Last Admin: 09/17/17 06:20 Dose: 40 units Metoprolol Tartrate (Lopressor -) 25 mg NGT Q6H [facility] Last Admin: 09/17/17 09:36 Dose: 25 mg Montelukast Sodium (Singulair -) 10 mg PO HS [facility] Last Admin: 09/16/17 22:13 Dose: 10 mg Ondansetron HCl (Zofran Odt -) 4 mg SL Q6H PRN PRN Reason: NAUSEA AND/OR VOMITING Last Admin: 09/17/17 03:29 Dose: 4 mg Oxycodone HCl (Roxicodone -) 5 mg PO Q6H PRN PRN Reason: PAIN LEVEL 7 - 10 Pancrelipase (Creon Dr 36,000 Units Capsule) 1 cap PO TIDCM [facility] Last Admin: 09/17/17 09:38 Dose: Not Given Pantoprazole Sodium (Protonix -) 40 mg PO DAILY [facility] Last Admin: 09/17/17 09:35 Dose: 40 mg Ramipril (Altace -) 10 mg PO DAILY [facility] Tamsulosin HCl (Flomax -) 0.4 mg PO DAILY@0830 [facility] Last Admin: 09/17/17 09:36 Dose: 0.4 mg Tiotropium [place] (Spiriva -) 1 puff IH DAILY [facility] Last Admin: 09/17/17 09:45 Dose: Not Given - Objective Vital Signs: Vital Signs Temperature 97.9 F 09/17/17 07:57 Pulse Rate 95 H 09/17/17 07:57 Respiratory Rate 16 09/17/17 08:00 Blood Pressure 158/98 09/17/17 07:57 O2 Sat by Pulse Oximetry (%) 97 09/17/17 08:00 Constitutional: Yes: Mild Distress Eyes: Yes: WNL HENT: Yes: WNL Neck: Yes: WNL Cardiovascular: Yes: WNL Respiratory: Yes: WNL Gastrointestinal: Yes: Tenderness Genitourinary: Yes: Incontinence Musculoskeletal: Yes: Muscle Weakness Extremities: Yes: Other Edema: Yes Peripheral Pulses WNL: Yes Integumentary: Yes: Other Wound/Incision: Yes: Dressing Dry and Intact Neurological: Yes: Weakness ...Motor Strength: LLE, RLE Psychiatric: Yes: Other Labs: CBC, BMP 09/16/17 05:05 09/16/17 05:05 INR, PTT INR 1.22 (0.82-1.09) H 08/21/17 06:55 Problem List - Problems (1) Umbilical hernia Code(s): K42.9 - UMBILICAL HERNIA WITHOUT OBSTRUCTION OR GANGRENE Qualifiers: Obstruction and gangrene presence: without obstruction or gangrene Qualified Code(s): K42.9 - Umbilical hernia without obstruction or gangrene (2) Chest pain Code(s): R07.9 - CHEST PAIN, UNSPECIFIED Qualifiers: Chest pain type: unspecified Qualified Code(s): R07.9 - Chest pain, unspecified (3) Chronic pancreatitis Code(s): K86.1 - OTHER CHRONIC PANCREATITIS Qualifiers: Pancreatitis type: unspecified pancreatitis type Qualified Code(s): K86.1 - Other chronic pancreatitis (4) 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 Code(s): E10.8 - TYPE 1 DIABETES MELLITUS WITH UNSPECIFIED COMPLICATIONS (5) Pneumonia Code(s): J18.9 - PNEUMONIA, UNSPECIFIED ORGANISM Qualifiers: Pneumonia type: due to unspecified organism Laterality: right Lung location: unspecified part of lung Qualified Code(s): J18.9 - Pneumonia, unspecified organism (6) ASHD (arteriosclerotic heart disease) Code(s): I25.10 - ATHSCL HEART DISEASE OF [place] CORONARY ARTERY W/O ANG PCTRS (7) Abdominal pain Code(s): R10.9 - UNSPECIFIED ABDOMINAL PAIN Qualifiers: Abdominal location: upper abdomen, unspecified Qualified Code(s): R10.10 - Upper abdominal pain, unspecified (8) Type 2 diabetes mellitus with diabetic neuropathy Code(s): E11.40 - TYPE 2 DIABETES MELLITUS WITH DIABETIC NEUROPATHY, UNSP (9) H/O umbilical hernia repair Code(s): Z98.890 - OTHER SPECIFIED POSTPROCEDURAL STATES; Z87.19 - PERSONAL HISTORY OF OTHER DISEASES OF THE DIGESTIVE SYSTEM (10) SBO (small bowel obstruction) Code(s): K56.609 - UNSP INTESTNL OBST, UNSP TO PARTIAL VERSUS COMPLETE OBST (11) Anxiety Code(s): F41.9 - ANXIETY DISORDER, UNSPECIFIED (12) Arrhythmia Code(s): I49.9 - CARDIAC ARRHYTHMIA, UNSPECIFIED (13) Cervical disc disease Code(s): M50.90 - CERVICAL DISC DISORDER, UNSP, UNSPECIFIED CERVICAL REGION (14) Cervical radiculopathy Code(s): M54.12 - RADICULOPATHY, CERVICAL REGION (15) Cervical vertebral fusion Code(s): M43.22 - FUSION OF SPINE, CERVICAL REGION (16) Chronic back pain Code(s): M54.9 - DORSALGIA, UNSPECIFIED; G89.29 - OTHER CHRONIC PAIN Qualifiers: (17) Chronic pain following surgery or procedure Code(s): G89.28 - OTHER CHRONIC POSTPROCEDURAL PAIN (18) H/O cervical spine surgery Code(s): Z98.89 - OTHER SPECIFIED POSTPROCEDURAL STATES * DO NOT USE * Assessment/Plan ADVANCING DIET SLOWLY TECH WRITER TO BE STOPPED TODAY [facility] TO ALL PO MEDS REHAB/SNF WEDNESDAY OOB TO CHAIR 02 SUPPORT GI/[place] FOLLOW UP
[2017-09-17] MEDS: MULTIVITAMINS (DAILY MVI) TABLET (FP) PO SCH (12:35)
[2017-09-17 13:50] LABS: ALBUMIN 1.9 g/dl (3.4-5.0); ANION GAP 11 (8-16); BLOOD UREA NITROGEN 16 mg/dL (7-18); CALCIUM 8.9 mg/dL (8.5-10.1); CHLORIDE 105 mmol/L (98-107); CO2 21 mmol/L (21-32); MAGNESIUM 2.2 mg/dL (1.8-2.4); PHOSPHOROUS 3.1 mg/dL (2.5-4.9); POTASSIUM 4.2 mmol/L (3.5-5.1); SGOT/AST 35 U/L (15-37); SGPT/ALT 39 U/L (12-78); SODIUM 137 mmol/L (136-145)
[2017-09-17 13:52] LABS: ALK PHOS 99 U/L (45-117); BILIRUBIN,TOTAL 0.4 mg/dL (0.2-1.0); TOT PROT 5.6 g/dl (6.4-8.2)
[2017-09-17 14:02] LABS: GLUCOSE,RANDOM 369 mg/dL (74-106)
--- NOTE | 2017-09-17 16:34 | PN ---
Progress Note (short form) - Note Progress Note: Renal follow up for Hypokalemia/TPN Pt seen and examined at the bedside feels better tolerating full liquid diet including ensure Vital Signs Temperature 98.8 F 09/17/17 14:00 Pulse Rate 89 09/17/17 14:00 Respiratory Rate 18 09/17/17 14:00 Blood Pressure 172/100 09/17/17 14:00 O2 Sat by Pulse Oximetry (%) 97 09/17/17 08:00 Intake & Output 09/14/17 09/15/17 09/16/17 09/17/17 23:59 23:59 23:59 23:59 Intake Total 1600 1372.5 1978 1448 Output Total 1400 1750 700 200 Balance 200 -377.5 1278 1248 Weight 111.811 kg 110.421 kg NAD awake and alert + abd tenderness No LE edema CBC, BMP 09/16/17 05:05 09/17/17 12:40 Current Medications Acetaminophen (Ofirmev Injection -) 1,000 mg IVPB Q6H PRN PRN Reason: PAIN Amino Acids (Prosource No Carb Liquid Pkt) 30 ml PO BID@0800,1730 [facility] Last Admin: 09/17/17 09:35 Dose: 30 ml Amitriptyline HCl (Elavil -) 25 mg NGT TID [facility] Last Admin: 09/17/17 14:25 Dose: 25 mg Aspirin (Ecotrin -) 81 mg PO DAILY [facility] Last Admin: 09/17/17 09:35 Dose: 81 mg Budesonide/Formoterol Fumarate (Symbicort 160/4.5mcg -) 1 puff IH BID [facility] Last Admin: 09/17/17 09:44 Dose: 1 puff Clopidogrel Bisulfate (Plavix -) 75 mg NGT DAILY [facility] Last Admin: 09/17/17 09:36 Dose: 75 mg Finasteride (Proscar -) 5 mg PO DAILY [facility] Last Admin: 09/17/17 09:36 Dose: 5 mg Heparin Sodium (Porcine) (Heparin -) 5,000 unit SQ BID [facility] Last Admin: 09/17/17 09:36 Dose: 5,000 unit Hydromorphone HCl (Dilaudid Accessories Repairer -) 6 mg PHYSICAL THER PHYSICAL THER [facility] PRN Reason: Protocol Stop: 09/17/17 17:00 Last Admin: 09/16/17 16:30 Dose: 6 mg IV Flush (Picc Line Flush) 8 ml IVPUSH PRN PRN PRN Reason: Protocol Last Admin: 09/16/17 20:12 Dose: 8 ml Potassium Phosphate 30 mm/Potassium Chloride 30 meq/Sodium Chloride 30 meq/ Magnesium Sulfate 1 gm/ Folic Acid 1 mg/ Multivitamins/Minerals 10 ml/ Sodium Acetate 30 meq/ Calcium Gluconate 1, 000 mg/ Sterile Water/ Amino Acids/ Dextrose 1,500 mls @ 62.5 mls/hr IVPB DAILY@1600 [facility] Last Admin: 09/16/17 17:56 Dose: 62.5 mls/hr Insulin Aspart (Novolog Vial Sliding Scale -) 1 vial SQ ACHS [facility] PRN Reason: Protocol Last Admin: 09/17/17 12:33 Dose: 14 units Insulin Detemir (Levemir Vial) 28 units SQ HS [facility] Last Admin: 09/16/17 22:14 Dose: 28 units Insulin Detemir (Levemir Vial) 40 units SQ AM [facility] Last Admin: 09/17/17 06:20 Dose: 40 units Metoprolol Tartrate (Lopressor -) 25 mg NGT Q6H [facility] Last Admin: 09/17/17 09:36 Dose: 25 mg Montelukast Sodium (Singulair -) 10 mg PO HS [facility] Last Admin: 09/16/17 22:13 Dose: 10 mg Multivitamins/Minerals/Vitamin C (Tab-A-Vit -) 1 tab PO DAILY [facility] Last Admin: 09/17/17 12:35 Dose: 1 tab Ondansetron HCl (Zofran Odt -) 4 mg SL Q6H PRN PRN Reason: NAUSEA AND/OR VOMITING Last Admin: 09/17/17 03:29 Dose: 4 mg Oxycodone HCl (Roxicodone -) 5 mg PO Q6H PRN PRN Reason: PAIN LEVEL 7 - 10 Pancrelipase (Creon Dr 36,000 Units Capsule) 1 cap PO TIDCM [facility] Last Admin: 09/17/17 12:34 Dose: Not Given Pantoprazole Sodium (Protonix -) 40 mg PO DAILY [facility] Last Admin: 09/17/17 09:35 Dose: 40 mg Ramipril (Altace -) 10 mg PO DAILY [facility] Tamsulosin HCl (Flomax -) 0.4 mg PO DAILY@0830 [facility] Last Admin: 09/17/17 09:36 Dose: 0.4 mg Tiotropium [place] (Spiriva -) 1 puff IH DAILY [facility] Last Admin: 09/17/17 09:45 Dose: Not Given 61 year old gentleman with PMhx of CAD s/p stents and CABG, Chronic Pancreatitis , Hypertension, HLD who presented with abd pain and now s/p open resection of incarcerated umbilical hernia with ileus and prolonged NPO status. #s/p open resection of incarcerated hernia with prolonged NPO status will discontinue TPN today continue advancing diet as per surgery monitor daily electrolytes Thank you Az Nelson DO
[2017-09-17] MEDS: HYDROmorphone *PCA* 6MG/30ML DISP.SYRIN PCA SCH (17:07)
[2017-09-17] MEDS ORDERED: INSULIN (NOVOLOG) ASPART 100 UNITS/ML 10ML VIAL ONE (17:11)
[2017-09-17] MEDS: POTASSIUM PHOSPHATE IVPB SCH (17:12)
[2017-09-17] MEDS: POTASSIUM CHLORIDE IVPB SCH (17:12)
[2017-09-17] MEDS: [UNRECOGNIZED DRUG - OTHER] IVPB SCH (17:12)
[2017-09-17] MEDS: SODIUM CHLORIDE IVPB SCH (17:12)
--- NOTE | 2017-09-17 17:57 | PN ---
Progress Note (short form) - Note Progress Note: No acute events Tolerating fulls +[facility] D/lakesha Vital Signs Period Temp Pulse Resp BP Sys/Gates Pulse Ox Last 24 Hr 97.7 F-99.4 F 88-106 14-20 152-172/85-100 96-97 Abd soft CBC, BMP 09/16/17 05:05 09/17/17 12:40 Soft diet in am Ambulate Problem List - Problems (1) Umbilical hernia Code(s): K42.9 - UMBILICAL HERNIA WITHOUT OBSTRUCTION OR GANGRENE Qualifiers: Obstruction and gangrene presence: without obstruction or gangrene Qualified Code(s): K42.9 - Umbilical hernia without obstruction or gangrene
[2017-09-17] MEDS: oxyCODONE HCL 5 MG TABLET PO PRN (20:04)
[2017-09-17] MEDS: MONTELUKAST NA 10 MG TABLET PO SCH (21:20)
[2017-09-17] MEDS ORDERED: PT OWN MED DRAWER 7, Y5N ONE (21:34)
[2017-09-17] MEDS: ACETAMINOPHEN 1000 MG/100 ML VIAL (NON FORMULARY) IVPB PRN (21:36)
[2017-09-18] MEDS: oxyCODONE HCL 5 MG TABLET PO PRN ×4 (03:20→22:23)
[2017-09-18] MEDS: ACETAMINOPHEN 1000 MG/100 ML VIAL (NON FORMULARY) IVPB PRN ×3 (04:20→18:11)
[2017-09-18 06:34] LABS: HEMATOCRIT 29.3 % (35.4-49); HEMOGLOBIN 9.9 GM/dL (11.7-16.9); MCH 27.1 pg (25.7-33.7); MEAN CELL VOLUME 79.6 fl (80-96); MEAN PLT VOLUME 7.9 fl (7.5-11.1); PLATELET COUNT 555 K/MM3 (134-434); RBC 3.68 M/mm3 (4.00-5.60); RDW 14.7 % (11.9-15.9)
[2017-09-18 06:47] LABS: ANION GAP 8 (8-16); BLOOD UREA NITROGEN 15 mg/dL (7-18); CALCIUM 8.6 mg/dL (8.5-10.1); CHLORIDE 107 mmol/L (98-107); CO2 24 mmol/L (21-32); CREATININE 0.9 mg/dL (0.7-1.3); GLUCOSE,RANDOM 144 mg/dL (74-106); POTASSIUM 4.3 mmol/L (3.5-5.1); SODIUM 139 mmol/L (136-145)
[2017-09-18] MEDS: METOPROLOL TARTRATE 25 MG TABLET (FP) NGT SCH ×2 (07:01→10:22)
[2017-09-18] MEDS: INSULIN DETEMIR 100 UNITS/ML MDV SQ SCH ×2 (07:02→22:15)
[2017-09-18] MEDS: INSULIN SLIDING SCALE (NOVOLOG) 1 VIAL SQ SCH ×4 (07:02→22:16)
[2017-09-18] MEDS: AMITRIPTYLINE HCL 25 MG TABLET (FP) NGT SCH ×3 (07:03→22:14)
[2017-09-18] MEDS: AMINO ACIDS/PROTEIN HYDROLYS 30 ML LIQUID.PKT PO SCH ×2 (08:00→18:11)
[2017-09-18] MEDS: LIPASE/PROTEASE/AMYLASE 36,000 UNIT CAPSULE PO SCH ×4 (08:00→18:11)
[2017-09-18] MEDS: TAMSULOSIN HCL 0.4 MG CAP.ER.24H (FP) PO SCH (10:22)
[2017-09-18] MEDS: RAMIPRIL 5 MG CAPSULE (FP) PO SCH (10:23)
[2017-09-18] MEDS: MULTIVITAMINS (DAILY MVI) TABLET (FP) PO SCH (10:24)
[2017-09-18] MEDS: BUDESONIDE/FORMETEROL FUMARATE 160/4.5 mcg INHALER IH SCH ×2 (10:24→22:17)
[2017-09-18] MEDS: ASPIRIN COATED 81 MG TABLET.EC PO SCH (10:24)
[2017-09-18] MEDS: CLOPIDOGREL BISULFATE 75 MG TABLET (FP) NGT SCH (10:24)
[2017-09-18] MEDS: HEPARIN NA (PORCINE) 5,000 UNITS/ML 1ML VIAL SQ SCH ×2 (10:24→22:15)
[2017-09-18] MEDS: FINASTERIDE 5 MG TABLET (FP) PO SCH (10:24)
[2017-09-18] MEDS: PANTOPRAZOLE 40 MG TABLET (FP) PO SCH (10:24)
[2017-09-18] MEDS ORDERED: PT OWN MED DRAWER 7, Y5N ONE (10:30)
[2017-09-18] MEDS: ONDANSETRON *ODT* 4 MG TABLET SL PRN ×2 (10:30→18:44)
--- NOTE | 2017-09-18 11:13 | PN ---
Progress Note, Physician Chief Complaint: Events noted POD #8 laparotomy - second surgery after umbilical hernia surgery Complains of intermittent abdominal discomfort post op incisional, but improving History of Present Illness: Patient was seen and examined. Awake and alert. Chart was reviewed Denies chest pain, SOB or palpitations - Current Medication List Current Medications: Active Medications Acetaminophen (Ofirmev Injection -) 1,000 mg IVPB Q6H PRN PRN Reason: PAIN Last Admin: 09/18/17 04:20 Dose: 1,000 mg Amino Acids (Prosource No Carb Liquid Pkt) 30 ml PO BID@0800,1730 [facility] Last Admin: 09/18/17 08:00 Dose: Not Given Amitriptyline HCl (Elavil -) 25 mg NGT TID [facility] Last Admin: 09/18/17 07:03 Dose: 25 mg Aspirin (Ecotrin -) 81 mg PO DAILY [facility] Last Admin: 09/18/17 10:24 Dose: 81 mg Budesonide/Formoterol Fumarate (Symbicort 160/4.5mcg -) 1 puff IH BID [facility] Last Admin: 09/18/17 10:24 Dose: 1 puff Clopidogrel Bisulfate (Plavix -) 75 mg NGT DAILY [facility] Last Admin: 09/18/17 10:24 Dose: 75 mg Finasteride (Proscar -) 5 mg PO DAILY [facility] Last Admin: 09/18/17 10:24 Dose: 5 mg Heparin Sodium (Porcine) (Heparin -) 5,000 unit SQ BID [facility] Last Admin: 09/18/17 10:24 Dose: 5,000 unit IV Flush (Picc Line Flush) 8 ml IVPUSH PRN PRN PRN Reason: Protocol Last Admin: 09/16/17 20:12 Dose: 8 ml Insulin Aspart (Novolog Vial Sliding Scale -) 1 vial SQ ACHS [facility] PRN Reason: Protocol Last Admin: 09/18/17 07:02 Dose: 5 units Insulin Detemir (Levemir Vial) 28 units SQ HS [facility] Last Admin: 09/17/17 21:17 Dose: 28 units Insulin Detemir (Levemir Vial) 40 units SQ AM [facility] Last Admin: 09/18/17 07:02 Dose: 40 units Metoprolol Tartrate (Lopressor -) 25 mg NGT Q6H [facility] Last Admin: 03/10/18 10:22 Dose: 25 mg Montelukast Sodium (Singulair -) 10 mg PO HS [facility] Last Admin: 09/17/17 21:20 Dose: 10 mg Multivitamins/Minerals/Vitamin C (Tab-A-Vit -) 1 tab PO DAILY [facility] Last Admin: 09/18/17 10:24 Dose: 1 tab Ondansetron HCl (Zofran Odt -) 4 mg SL Q6H PRN PRN Reason: NAUSEA AND/OR VOMITING Last Admin: 09/18/17 10:30 Dose: 4 mg Oxycodone HCl (Roxicodone -) 10 mg PO Q6H PRN PRN Reason: PAIN LEVEL 5 - 10 Last Admin: 09/18/17 10:23 Dose: 10 mg Pancrelipase (Creon Dr 36,000 Units Capsule) 1 cap PO TIDCM [facility] Last Admin: 09/18/17 08:00 Dose: Not Given Pantoprazole Sodium (Protonix -) 40 mg PO DAILY [facility] Last Admin: 09/18/17 10:24 Dose: 40 mg Ramipril (Altace -) 10 mg PO DAILY [facility] Last Admin: 09/18/17 10:23 Dose: 10 mg Tamsulosin HCl (Flomax -) 0.4 mg PO DAILY@0830 [facility] Last Admin: 09/18/17 10:22 Dose: 0.4 mg Tiotropium [place] (Spiriva -) 1 puff IH DAILY [facility] Last Admin: 09/17/17 09:45 Dose: Not Given - Objective Vital Signs: Vital Signs Temperature 99.5 F 09/18/17 10:00 Pulse Rate 100 H 09/18/17 10:00 Respiratory Rate 20 09/18/17 10:00 Blood Pressure 171/98 09/18/17 10:00 O2 Sat by Pulse Oximetry (%) 97 09/18/17 09:00 Eyes: Yes: PERRL HENT: Yes: Atraumatic Neck: Yes: Supple Cardiovascular: Yes: Regular Rate and Rhythm, S1, S2 Respiratory: Yes: Diminished Gastrointestinal: Yes: Abdomen, Obese, Other (post op) Edema: No Additional Findings/Remarks: - Review of Systems Constitutional: denies: Chills, Fever Cardiovascular: denies: Chest Pain, Palpitations, Shortness of Breath Respiratory: denies: Cough, Hemoptysis, Orthopnea, PND, SOB, SOB on Exertion Gastrointestinal: (+) Abdominal Pain, denies: Constipation, Diarrhea, Melena, Nausea, Rectal Bleeding, Vomiting Genitourinary: denies urologic symptoms Neurological: denies: Dizziness, Headache, Seizure, Syncope Labs: CBC, BMP 09/18/17 05:05 09/18/17 05:05 INR, PTT INR 1.22 (0.82-1.09) H 08/21/17 06:55 Problem List - Problems (1) Chronic pancreatitis Code(s): K86.1 - OTHER CHRONIC PANCREATITIS Qualifiers: Pancreatitis type: unspecified pancreatitis type Qualified Code(s): K86.1 - Other chronic pancreatitis (2) 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 Code(s): E10.8 - TYPE 1 DIABETES MELLITUS WITH UNSPECIFIED COMPLICATIONS (3) Hematuria Code(s): R31.9 - HEMATURIA, UNSPECIFIED (4) Renal calculus, left Code(s): N20.0 - CALCULUS OF KIDNEY (5) ASHD (arteriosclerotic heart disease) Code(s): I25.10 - ATHSCL HEART DISEASE OF [place] CORONARY ARTERY W/O ANG PCTRS (6) Abdominal pain Code(s): R10.9 - UNSPECIFIED ABDOMINAL PAIN Qualifiers: Abdominal location: upper abdomen, unspecified Qualified Code(s): R10.10 - Upper abdominal pain, unspecified (7) Acute on chronic diastolic (congestive) heart failure Code(s): I50.33 - ACUTE ON CHRONIC DIASTOLIC (CONGESTIVE) HEART FAILURE (8) Anemia Code(s): D64.9 - ANEMIA, UNSPECIFIED (9) Asthma Code(s): J45.909 - UNSPECIFIED ASTHMA, UNCOMPLICATED Qualifiers: Asthma severity: unspecified severity (10) Diabetes mellitus Code(s): E11.9 - TYPE 2 DIABETES MELLITUS WITHOUT COMPLICATIONS Qualifiers: Diabetes mellitus type: type 2 Diabetes mellitus complication detail: with unspecified neuropathy (11) Hypertension Code(s): I10 - ESSENTIAL (PRIMARY) HYPERTENSION Qualifiers: Hypertension type: essential hypertension Qualified Code(s): I10 - Essential (primary) hypertension (12) IPMN (intraductal papillary mucinous neoplasm) Code(s): D49.0 - NEOPLASM OF UNSPECIFIED BEHAVIOR OF DIGESTIVE SYSTEM (13) GRACIE (obstructive sleep apnea) Code(s): G47.33 - OBSTRUCTIVE SLEEP APNEA (ADULT) (PEDIATRIC) (14) S/P laparotomy Code(s): Z98.890 - OTHER SPECIFIED POSTPROCEDURAL STATES Assessment/Plan 1. POD #8 exploratory laparotomy, Small bowel surgery and umbilical hernia repair 2. History of chronic pancreatitis 3. Chronic atypical chest pain syndrome, resolved 4. CAD post [place], post PCI (stents), angina pectoris 5. Diastolic LV dysfunction with chronic class 0-I NYHA classification LV failure, compensated/euvolemic 6. HTN/HCVD 7. DM 8. Hyperlipidemia 9. OSAS 10. COPD/Asthma 11. Acute on CKD resolved PLAN: 1. Continue Lopressor (change to 50 mg Q8 hr and Altace 10 qd as tolerated 2. Continue ASA 81 qd and Plavix 75 qd as tolerated 3. If BP still remains elevated despite above change in Metoprolol, start Norvasc 4. Pain management 5. Surgery follow up for post operative management 6. DVT and GI prophylaxis and TPN 7. OOB to chair as tolerated Guarded Further plans are to follow Samuel Calvillo MD
--- NOTE | 2017-09-18 12:23 | PN ---
Progress Note (short form) - Note Progress Note: Renal follow up for Hypokalemia/TPN Pt seen and examined at the bedside no acute complaints tolerating soft diet no sob, chest pain Vital Signs Temperature 99.5 F 09/18/17 10:00 Pulse Rate 100 H 09/18/17 10:00 Respiratory Rate 20 09/18/17 10:00 Blood Pressure 171/98 09/18/17 10:00 O2 Sat by Pulse Oximetry (%) 97 09/18/17 09:00 Intake & Output 09/15/17 09/16/17 09/17/17 09/18/17 23:59 23:59 23:59 23:59 Intake Total 1372.5 1978 1648 Output Total 1750 700 600 Balance -377.5 1278 1048 Weight 111.811 kg 110.421 kg 111.856 kg NAD awake and alert + abd tenderness No LE edema CBC, BMP 09/18/17 05:05 09/18/17 05:05 Current Medications Acetaminophen (Ofirmev Injection -) 1,000 mg IVPB Q6H PRN PRN Reason: PAIN Last Admin: 09/18/17 11:51 Dose: 1,000 mg Amino Acids (Prosource No Carb Liquid Pkt) 30 ml PO BID@0800,1730 [facility] Last Admin: 09/18/17 08:00 Dose: Not Given Amitriptyline HCl (Elavil -) 25 mg NGT TID [facility] Last Admin: 09/18/17 07:03 Dose: 25 mg Aspirin (Ecotrin -) 81 mg PO DAILY [facility] Last Admin: 09/18/17 10:24 Dose: 81 mg Budesonide/Formoterol Fumarate (Symbicort 160/4.5mcg -) 1 puff IH BID [facility] Last Admin: 09/18/17 10:24 Dose: 1 puff Clopidogrel Bisulfate (Plavix -) 75 mg NGT DAILY [facility] Last Admin: 09/18/17 10:24 Dose: 75 mg Finasteride (Proscar -) 5 mg PO DAILY [facility] Last Admin: 09/18/17 10:24 Dose: 5 mg Heparin Sodium (Porcine) (Heparin -) 5,000 unit SQ BID [facility] Last Admin: 09/18/17 10:24 Dose: 5,000 unit IV Flush (Picc Line Flush) 8 ml IVPUSH PRN PRN PRN Reason: Protocol Last Admin: 09/16/17 20:12 Dose: 8 ml Insulin Aspart (Novolog Vial Sliding Scale -) 1 vial SQ ACHS [facility] PRN Reason: Protocol Last Admin: 09/18/17 11:33 Dose: 5 units Insulin Detemir (Levemir Vial) 28 units SQ HS [facility] Last Admin: 09/17/17 21:17 Dose: 28 units Insulin Detemir (Levemir Vial) 40 units SQ AM [facility] Last Admin: 09/18/17 07:02 Dose: 40 units Metoprolol Tartrate (Lopressor -) 50 mg PO TID [facility] Montelukast Sodium (Singulair -) 10 mg PO HS [facility] Last Admin: 09/17/17 21:20 Dose: 10 mg Multivitamins/Minerals/Vitamin C (Tab-A-Vit -) 1 tab PO DAILY [facility] Last Admin: 09/18/17 10:24 Dose: 1 tab Ondansetron HCl (Zofran Odt -) 4 mg SL Q6H PRN PRN Reason: NAUSEA AND/OR VOMITING Last Admin: 09/18/17 10:30 Dose: 4 mg Oxycodone HCl (Roxicodone -) 10 mg PO Q6H PRN PRN Reason: PAIN LEVEL 5 - 10 Last Admin: 09/18/17 10:23 Dose: 10 mg Pancrelipase (Creon Dr 36,000 Units Capsule) 1 cap PO TIDCM [facility] Last Admin: 09/18/17 12:13 Dose: Not Given Pantoprazole Sodium (Protonix -) 40 mg PO DAILY [facility] Last Admin: 09/18/17 10:24 Dose: 40 mg Ramipril (Altace -) 10 mg PO DAILY [facility] Last Admin: 09/18/17 10:23 Dose: 10 mg Tamsulosin HCl (Flomax -) 0.4 mg PO DAILY@0830 [facility] Last Admin: 09/18/17 10:22 Dose: 0.4 mg Tiotropium [place] (Spiriva -) 1 puff IH DAILY [facility] Last Admin: 09/17/17 09:45 Dose: Not Given 61 year old gentleman with PMhx of CAD s/p stents and CABG, Chronic Pancreatitis , Hypertension, HLD who presented with abd pain and now s/p open resection of incarcerated umbilical hernia with ileus and prolonged NPO status. #s/p open resection of incarcerated hernia with prolonged NPO status tolerating diet, no need for further TPN check electrolytes including phos daily as pt starts to eat will follow Thank you Az Nelson DO
[2017-09-18] MEDS: PICC LINE 8 ML FLUSH PROTOCOL IVPUSH PRN ×2 (13:05→18:41)
--- NOTE | 2017-09-18 13:35 | PN ---
Progress Note, Physician - Current Medication List Current Medications: Active Medications Acetaminophen (Ofirmev Injection -) 1,000 mg IVPB Q6H PRN PRN Reason: PAIN Last Admin: 09/18/17 11:51 Dose: 1,000 mg Amino Acids (Prosource No Carb Liquid Pkt) 30 ml PO BID@0800,1730 [facility] Last Admin: 09/18/17 08:00 Dose: Not Given Amitriptyline HCl (Elavil -) 25 mg NGT TID [facility] Last Admin: 09/18/17 07:03 Dose: 25 mg Aspirin (Ecotrin -) 81 mg PO DAILY [facility] Last Admin: 09/18/17 10:24 Dose: 81 mg Budesonide/Formoterol Fumarate (Symbicort 160/4.5mcg -) 1 puff IH BID [facility] Last Admin: 09/18/17 10:24 Dose: 1 puff Clopidogrel Bisulfate (Plavix -) 75 mg NGT DAILY [facility] Last Admin: 09/18/17 10:24 Dose: 75 mg Finasteride (Proscar -) 5 mg PO DAILY [facility] Last Admin: 09/18/17 10:24 Dose: 5 mg Heparin Sodium (Porcine) (Heparin -) 5,000 unit SQ BID [facility] Last Admin: 09/18/17 10:24 Dose: 5,000 unit IV Flush (Picc Line Flush) 8 ml IVPUSH PRN PRN PRN Reason: Protocol Last Admin: 09/16/17 20:12 Dose: 8 ml Insulin Aspart (Novolog Vial Sliding Scale -) 1 vial SQ ACHS [facility] PRN Reason: Protocol Last Admin: 09/18/17 11:33 Dose: 5 units Insulin Detemir (Levemir Vial) 28 units SQ HS [facility] Last Admin: 09/17/17 21:17 Dose: 28 units Insulin Detemir (Levemir Vial) 40 units SQ AM [facility] Last Admin: 09/18/17 07:02 Dose: 40 units Metoprolol Tartrate (Lopressor -) 50 mg PO TID [facility] Montelukast Sodium (Singulair -) 10 mg PO HS [facility] Last Admin: 09/17/17 21:20 Dose: 10 mg Multivitamins/Minerals/Vitamin C (Tab-A-Vit -) 1 tab PO DAILY [facility] Last Admin: 09/18/17 10:24 Dose: 1 tab Ondansetron HCl (Zofran Odt -) 4 mg SL Q6H PRN PRN Reason: NAUSEA AND/OR VOMITING Last Admin: 09/18/17 10:30 Dose: 4 mg Oxycodone HCl (Roxicodone -) 10 mg PO Q6H PRN PRN Reason: PAIN LEVEL 5 - 10 Last Admin: 09/18/17 10:23 Dose: 10 mg Pancrelipase (Creon Dr 36,000 Units Capsule) 1 cap PO TIDCM [facility] Last Admin: 09/18/17 12:13 Dose: Not Given Pantoprazole Sodium (Protonix -) 40 mg PO DAILY [facility] Last Admin: 09/18/17 10:24 Dose: 40 mg Ramipril (Altace -) 10 mg PO DAILY [facility] Last Admin: 09/18/17 10:23 Dose: 10 mg Tamsulosin HCl (Flomax -) 0.4 mg PO DAILY@0830 [facility] Last Admin: 09/18/17 10:22 Dose: 0.4 mg Tiotropium [place] (Spiriva -) 1 puff IH DAILY [facility] Last Admin: 09/17/17 09:45 Dose: Not Given - Objective Vital Signs: Vital Signs Temperature 99.5 F 09/18/17 10:00 Pulse Rate 100 H 09/18/17 10:00 Respiratory Rate 20 09/18/17 10:00 Blood Pressure 171/98 09/18/17 10:00 O2 Sat by Pulse Oximetry (%) 97 09/18/17 09:00 Cardiovascular: Yes: Regular Rate and Rhythm Respiratory: Yes: Regular, CTA Bilaterally Gastrointestinal: Yes: Normal Bowel Sounds, Soft, Tenderness (mild) Labs: CBC, BMP 09/18/17 05:05 09/18/17 05:05 INR, PTT INR 1.22 (0.82-1.09) H 08/21/17 06:55 Problem List - Problems (1) Chronic pancreatitis Code(s): K86.1 - OTHER CHRONIC PANCREATITIS Qualifiers: Pancreatitis type: unspecified pancreatitis type Qualified Code(s): K86.1 - Other chronic pancreatitis (2) 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 Code(s): E10.8 - TYPE 1 DIABETES MELLITUS WITH UNSPECIFIED COMPLICATIONS (3) CHF (congestive heart failure) Code(s): I50.9 - HEART FAILURE, UNSPECIFIED (4) Pneumonia Code(s): J18.9 - PNEUMONIA, UNSPECIFIED ORGANISM Qualifiers: Pneumonia type: due to unspecified organism Laterality: right Lung location: unspecified part of lung Qualified Code(s): J18.9 - Pneumonia, unspecified organism (5) Umbilical hernia Code(s): K42.9 - UMBILICAL HERNIA WITHOUT OBSTRUCTION OR GANGRENE Qualifiers: Obstruction and gangrene presence: without obstruction or gangrene Qualified Code(s): K42.9 - Umbilical hernia without obstruction or gangrene (6) COPD (chronic obstructive pulmonary disease) Code(s): J44.9 - CHRONIC OBSTRUCTIVE PULMONARY DISEASE, UNSPECIFIED (7) Coronary artery disease Code(s): I25.10 - ATHSCL HEART DISEASE OF [place] CORONARY ARTERY W/O ANG PCTRS Assessment/Plan - Problems (1) SBO (small bowel obstruction) Assessment/Plan: repeat ct scan done showed high grade partial SBO due to incarcerated umbilical hernia s/p hernia repair and bowel resection POD 6 diet advanced per surgery now 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 dvt ppx Code(s): K56.609 - UNSP INTESTNL OBST, UNSP TO PARTIAL VERSUS COMPLETE OBST (2) ASHD (arteriosclerotic heart disease) Assessment/Plan: aspirin,plavix,lopresor and altace Code(s): I25.10 - ATHSCL HEART DISEASE OF [place] CORONARY ARTERY W/O ANG PCTRS (3) Hypokalemia Assessment/Plan: potassium is ok Code(s): E87.6 - HYPOKALEMIA (4) Hypertension Assessment/Plan: lopressor and altace Code(s): I10 - ESSENTIAL (PRIMARY) HYPERTENSION Qualifiers: Hypertension type: essential hypertension Qualified Code(s): I10 - Essential (primary) hypertension (5) BPH (benign prostatic hyperplasia) Assessment/Plan: flomax Code(s): N40.0 - BENIGN PROSTATIC HYPERPLASIA WITHOUT LOWER URINRY TRACT SYMP (6) COPD (chronic obstructive pulmonary disease) Assessment/Plan: bronchodilator nebulizers Code(s): J44.9 - CHRONIC OBSTRUCTIVE PULMONARY DISEASE, UNSPECIFIED (7) 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
[2017-09-18] MEDS: METOPROLOL TARTRATE 50 MG TABLET (FP) PO SCH ×2 (14:12→22:14)
[2017-09-18] MEDS: TIOTROPIUM BROMIDE 18 MCG/INH (DEVICE W/ 5 CAPSULES) IH SCH (14:12)
--- NOTE | 2017-09-18 14:12 | PN ---
Progress Note (short form) - Note Progress Note: Anesthesiology Pain Service POD#8. Pt. now tolerating PO meds. 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 VSS. Continue management as per primary team.
--- NOTE | 2017-09-18 19:37 | PN ---
Progress Note (short form) - Note Progress Note: Tolerating soft diet +BM On PO pain medication Vital Signs Period Temp Pulse Resp BP Sys/Gates Pulse Ox Last 24 Hr 98.3 F-99.5 F 85-100 20-20 133-171/88-100 97-98 Abd soft, wound clean CBC, BMP 09/18/17 05:05 09/18/17 05:05 Daily dressing changes Ambulate Problem List - Problems (1) Umbilical hernia Code(s): K42.9 - UMBILICAL HERNIA WITHOUT OBSTRUCTION OR GANGRENE Qualifiers: Obstruction and gangrene presence: without obstruction or gangrene Qualified Code(s): K42.9 - Umbilical hernia without obstruction or gangrene
[2017-09-18] MEDS: MONTELUKAST NA 10 MG TABLET PO SCH (22:15)
[2017-09-19] MEDS: INSULIN DETEMIR 100 UNITS/ML MDV SQ SCH ×2 (06:45→21:30)
[2017-09-19] MEDS: AMITRIPTYLINE HCL 25 MG TABLET (FP) NGT SCH ×3 (06:46→21:31)
[2017-09-19] MEDS: INSULIN SLIDING SCALE (NOVOLOG) 1 VIAL SQ SCH ×4 (06:47→21:31)
[2017-09-19] MEDS: METOPROLOL TARTRATE 50 MG TABLET (FP) PO SCH ×3 (06:47→21:31)
[2017-09-19 07:21] LABS: ALK PHOS 105 U/L (45-117); ANION GAP 12 (8-16); BILIRUBIN,TOTAL 0.3 mg/dL (0.2-1.0); BLOOD UREA NITROGEN 13 mg/dL (7-18); CALCIUM 8.7 mg/dL (8.5-10.1); CHLORIDE 106 mmol/L (98-107); CO2 23 mmol/L (21-32); CREATININE 0.9 mg/dL (0.7-1.3); GLUCOSE,RANDOM 156 mg/dL (74-106); MAGNESIUM 2.3 mg/dL (1.8-2.4); PHOSPHOROUS 4.3 mg/dL (2.5-4.9); POTASSIUM 4.7 mmol/L (3.5-5.1); SGOT/AST 27 U/L (15-37); SGPT/ALT 39 U/L (12-78); SODIUM 141 mmol/L (136-145); TOT PROT 5.8 g/dl (6.4-8.2)
[2017-09-19 07:39] LABS: HEMATOCRIT 29.5 % (35.4-49); HEMOGLOBIN 9.9 GM/dL (11.7-16.9); MCH 26.9 pg (25.7-33.7); MCHC 33.4 g/dl (32.0-35.9); MEAN CELL VOLUME 80.6 fl (80-96); MEAN PLT VOLUME 7.8 fl (7.5-11.1); PLATELET COUNT 568 K/MM3 (134-434); RBC 3.66 M/mm3 (4.00-5.60); RDW 15.5 % (11.9-15.9); WHITE BLOOD COUNT 9.9 K/mm3 (4.0-10.0)
[2017-09-19] MEDS ORDERED: PT OWN MED DRAWER 7, Y5N ONE (07:40)
[2017-09-19] MEDS: oxyCODONE HCL 5 MG TABLET PO PRN ×3 (07:43→21:31)
[2017-09-19] MEDS: ONDANSETRON *ODT* 4 MG TABLET SL PRN (09:24)
[2017-09-19] MEDS: TAMSULOSIN HCL 0.4 MG CAP.ER.24H (FP) PO SCH (09:24)
[2017-09-19] MEDS: FINASTERIDE 5 MG TABLET (FP) PO SCH (09:24)
[2017-09-19] MEDS: MULTIVITAMINS (DAILY MVI) TABLET (FP) PO SCH (09:24)
[2017-09-19] MEDS: ASPIRIN COATED 81 MG TABLET.EC PO SCH (09:25)
[2017-09-19] MEDS: PANTOPRAZOLE 40 MG TABLET (FP) PO SCH (09:25)
[2017-09-19] MEDS: AMINO ACIDS/PROTEIN HYDROLYS 30 ML LIQUID.PKT PO SCH ×2 (09:25→17:29)
[2017-09-19] MEDS: RAMIPRIL 5 MG CAPSULE (FP) PO SCH (09:25)
[2017-09-19] MEDS: CLOPIDOGREL BISULFATE 75 MG TABLET (FP) NGT SCH (09:25)
[2017-09-19] MEDS: TIOTROPIUM BROMIDE 18 MCG/INH (DEVICE W/ 5 CAPSULES) IH SCH (09:25)
[2017-09-19] MEDS: HEPARIN NA (PORCINE) 5,000 UNITS/ML 1ML VIAL SQ SCH ×2 (09:25→21:29)
[2017-09-19] MEDS: BUDESONIDE/FORMETEROL FUMARATE 160/4.5 mcg INHALER IH SCH ×2 (09:25→21:32)
[2017-09-19] MEDS: LIPASE/PROTEASE/AMYLASE 36,000 UNIT CAPSULE PO SCH ×3 (09:25→17:29)
[2017-09-19] MEDS: ACETAMINOPHEN 1000 MG/100 ML VIAL (NON FORMULARY) IVPB PRN ×2 (09:26→14:47)
--- NOTE | 2017-09-19 09:26 | PN ---
Progress Note, Physician Chief Complaint: Events noted POD #9 laparotomy - second surgery after umbilical hernia surgery Less abdominal discomfort post op incisional, but improving History of Present Illness: Patient was seen and examined. Awake and alert. Chart was reviewed Denies chest pain, SOB or palpitations - Current Medication List Current Medications: Active Medications Acetaminophen (Ofirmev Injection -) 1,000 mg IVPB Q6H PRN PRN Reason: PAIN Last Admin: 09/18/17 18:11 Dose: 1,000 mg Amino Acids (Prosource No Carb Liquid Pkt) 30 ml PO BID@0800,1730 [facility] Last Admin: 09/18/17 18:11 Dose: 30 ml Amitriptyline HCl (Elavil -) 25 mg NGT TID [facility] Last Admin: 09/19/17 06:46 Dose: 25 mg Aspirin (Ecotrin -) 81 mg PO DAILY [facility] Last Admin: 09/18/17 10:24 Dose: 81 mg Budesonide/Formoterol Fumarate (Symbicort 160/4.5mcg -) 1 puff IH BID [facility] Last Admin: 09/18/17 22:17 Dose: 1 puff Clopidogrel Bisulfate (Plavix -) 75 mg NGT DAILY [facility] Last Admin: 09/18/17 10:24 Dose: 75 mg Finasteride (Proscar -) 5 mg PO DAILY [facility] Last Admin: 09/18/17 10:24 Dose: 5 mg Heparin Sodium (Porcine) (Heparin -) 5,000 unit SQ BID [facility] Last Admin: 09/18/17 22:15 Dose: 5,000 unit IV Flush (Picc Line Flush) 8 ml IVPUSH PRN PRN PRN Reason: Protocol Last Admin: 09/18/17 18:41 Dose: 8 ml Insulin Aspart (Novolog Vial Sliding Scale -) 1 vial SQ ACHS [facility] PRN Reason: Protocol Last Admin: 09/19/17 06:47 Dose: 5 units Insulin Detemir (Levemir Vial) 28 units SQ HS [facility] Last Admin: 09/18/17 22:15 Dose: Not Given Insulin Detemir (Levemir Vial) 40 units SQ AM [facility] Last Admin: 09/19/17 06:45 Dose: 40 units Metoprolol Tartrate (Lopressor -) 50 mg PO TID [facility] Last Admin: 09/19/17 06:47 Dose: 50 mg Montelukast Sodium (Singulair -) 10 mg PO HS [facility] Last Admin: 09/18/17 22:15 Dose: 10 mg Multivitamins/Minerals/Vitamin C (Tab-A-Vit -) 1 tab PO DAILY [facility] Last Admin: 09/18/17 10:24 Dose: 1 tab Ondansetron HCl (Zofran Odt -) 4 mg SL Q6H PRN PRN Reason: NAUSEA AND/OR VOMITING Last Admin: 09/18/17 18:44 Dose: 4 mg Oxycodone HCl (Roxicodone -) 10 mg PO Q6H PRN PRN Reason: PAIN LEVEL 5 - 10 Last Admin: 09/19/17 07:43 Dose: 10 mg Pancrelipase (Creon Dr 36,000 Units Capsule) 1 cap PO TIDCM [facility] Last Admin: 09/18/17 18:11 Dose: Not Given Pantoprazole Sodium (Protonix -) 40 mg PO DAILY [facility] Last Admin: 09/18/17 10:24 Dose: 40 mg Ramipril (Altace -) 10 mg PO DAILY [facility] Last Admin: 09/18/17 10:23 Dose: 10 mg Tamsulosin HCl (Flomax -) 0.4 mg PO DAILY@0830 [facility] Last Admin: 09/18/17 10:22 Dose: 0.4 mg Tiotropium [place] (Spiriva -) 1 puff IH DAILY [facility] Last Admin: 09/18/17 14:12 Dose: 1 inh - Objective Vital Signs: Vital Signs Temperature 98.5 F 09/19/17 09:17 Pulse Rate 77 09/19/17 09:17 Respiratory Rate 20 09/19/17 09:17 Blood Pressure 126/64 09/19/17 09:17 O2 Sat by Pulse Oximetry (%) 97 09/19/17 09:00 Constitutional: Yes: Well Nourished Eyes: Yes: PERRL HENT: Yes: Atraumatic Neck: Yes: Supple Cardiovascular: Yes: Regular Rate and Rhythm, S1, S2 Respiratory: Yes: CTA Bilaterally Gastrointestinal: Yes: Other (Post op) Edema: No Additional Findings/Remarks: - Review of Systems Constitutional: denies: Chills, Fever Cardiovascular: denies: Chest Pain, Palpitations, Shortness of Breath Respiratory: denies: Cough, Hemoptysis, Orthopnea, PND, SOB, SOB on Exertion Gastrointestinal: (+) Abdominal Pain, denies: Constipation, Diarrhea, Melena, Nausea, Rectal Bleeding, Vomiting Genitourinary: denies urologic symptoms Neurological: denies: Dizziness, Headache, Seizure, Syncope Labs: CBC, BMP 09/19/17 05:05 09/19/17 05:05 Problem List - Problems (1) Chronic pancreatitis Code(s): K86.1 - OTHER CHRONIC PANCREATITIS Qualifiers: Pancreatitis type: unspecified pancreatitis type Qualified Code(s): K86.1 - Other chronic pancreatitis (2) 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 Code(s): E10.8 - TYPE 1 DIABETES MELLITUS WITH UNSPECIFIED COMPLICATIONS (3) Hematuria Code(s): R31.9 - HEMATURIA, UNSPECIFIED (4) Renal calculus, left Code(s): N20.0 - CALCULUS OF KIDNEY (5) ASHD (arteriosclerotic heart disease) Code(s): I25.10 - ATHSCL HEART DISEASE OF [place] CORONARY ARTERY W/O ANG PCTRS (6) Abdominal pain Code(s): R10.9 - UNSPECIFIED ABDOMINAL PAIN Qualifiers: Abdominal location: upper abdomen, unspecified Qualified Code(s): R10.10 - Upper abdominal pain, unspecified (7) Acute on chronic diastolic (congestive) heart failure Code(s): I50.33 - ACUTE ON CHRONIC DIASTOLIC (CONGESTIVE) HEART FAILURE (8) Anemia Code(s): D64.9 - ANEMIA, UNSPECIFIED (9) Asthma Code(s): J45.909 - UNSPECIFIED ASTHMA, UNCOMPLICATED Qualifiers: Asthma severity: unspecified severity (10) Diabetes mellitus Code(s): E11.9 - TYPE 2 DIABETES MELLITUS WITHOUT COMPLICATIONS Qualifiers: Diabetes mellitus type: type 2 Diabetes mellitus complication detail: with unspecified neuropathy (11) Hypertension Code(s): I10 - ESSENTIAL (PRIMARY) HYPERTENSION Qualifiers: Hypertension type: essential hypertension Qualified Code(s): I10 - Essential (primary) hypertension (12) IPMN (intraductal papillary mucinous neoplasm) Code(s): D49.0 - NEOPLASM OF UNSPECIFIED BEHAVIOR OF DIGESTIVE SYSTEM (13) GRACIE (obstructive sleep apnea) Code(s): G47.33 - OBSTRUCTIVE SLEEP APNEA (ADULT) (PEDIATRIC) (14) S/P laparotomy Code(s): Z98.890 - OTHER SPECIFIED POSTPROCEDURAL STATES Assessment/Plan 1. POD #9 exploratory laparotomy, Small bowel surgery and umbilical hernia repair 2. History of chronic pancreatitis 3. Chronic atypical chest pain syndrome, resolved 4. CAD post ME, post PCI (stents), angina pectoris 5. Diastolic LV dysfunction with chronic class 0-I NYHA classification LV failure, compensated/euvolemic 6. HTN/HCVD 7. DM 8. Hyperlipidemia 9. OSAS 10. COPD/Asthma 11. Acute on CKD resolved PLAN: 1. Continue Lopressor (change to 100 BID and Altace 10 qd as tolerated) 2. Continue ASA 81 qd and Plavix 75 qd as tolerated 3. Amlodipine 5 QD 4. Pain management 5. Surgery follow up for post operative management 6. DVT and GI prophylaxis and TPN 7. OOB to chair as tolerated Guarded Further plans are to follow Samuel Calvillo MD
[2017-09-19] MEDS: PICC LINE 8 ML FLUSH PROTOCOL IVPUSH PRN ×2 (09:45→14:45)
--- NOTE | 2017-09-19 11:41 | PN ---
Progress Note, Physician - Current Medication List Current Medications: Active Medications Acetaminophen (Ofirmev Injection -) 1,000 mg IVPB Q6H PRN PRN Reason: PAIN Last Admin: 09/19/17 09:26 Dose: 1,000 mg Amino Acids (Prosource No Carb Liquid Pkt) 30 ml PO BID@0800,1730 [facility] Last Admin: 09/19/17 09:25 Dose: 30 ml Amitriptyline HCl (Elavil -) 25 mg NGT TID [facility] Last Admin: 09/19/17 06:46 Dose: 25 mg Aspirin (Ecotrin -) 81 mg PO DAILY [facility] Last Admin: 09/19/17 09:25 Dose: 81 mg Budesonide/Formoterol Fumarate (Symbicort 160/4.5mcg -) 1 puff IH BID [facility] Last Admin: 09/19/17 09:25 Dose: 1 puff Clopidogrel Bisulfate (Plavix -) 75 mg NGT DAILY [facility] Last Admin: 09/19/17 09:25 Dose: 75 mg Finasteride (Proscar -) 5 mg PO DAILY [facility] Last Admin: 09/19/17 09:24 Dose: 5 mg Heparin Sodium (Porcine) (Heparin -) 5,000 unit SQ BID [facility] Last Admin: 09/19/17 09:25 Dose: 5,000 unit IV Flush (Picc Line Flush) 8 ml IVPUSH PRN PRN PRN Reason: Protocol Last Admin: 09/18/17 18:41 Dose: 8 ml Insulin Aspart (Novolog Vial Sliding Scale -) 1 vial SQ ACHS [facility] PRN Reason: Protocol Last Admin: 09/19/17 06:47 Dose: 5 units Insulin Detemir (Levemir Vial) 28 units SQ HS [facility] Last Admin: 09/18/17 22:15 Dose: Not Given Insulin Detemir (Levemir Vial) 40 units SQ AM [facility] Last Admin: 09/19/17 06:45 Dose: 40 units Metoprolol Tartrate (Lopressor -) 50 mg PO TID [facility] Last Admin: 09/19/17 06:47 Dose: 50 mg Montelukast Sodium (Singulair -) 10 mg PO HS [facility] Last Admin: 09/18/17 22:15 Dose: 10 mg Multivitamins/Minerals/Vitamin C (Tab-A-Vit -) 1 tab PO DAILY [facility] Last Admin: 09/19/17 09:24 Dose: 1 tab Ondansetron HCl (Zofran Odt -) 4 mg SL Q6H PRN PRN Reason: NAUSEA AND/OR VOMITING Last Admin: 09/19/17 09:24 Dose: 4 mg Oxycodone HCl (Roxicodone -) 10 mg PO Q6H PRN PRN Reason: PAIN LEVEL 5 - 10 Last Admin: 09/19/17 07:43 Dose: 10 mg Pancrelipase (Creon Dr 36,000 Units Capsule) 1 cap PO TIDCM [facility] Last Admin: 09/19/17 09:25 Dose: Not Given Pantoprazole Sodium (Protonix -) 40 mg PO DAILY [facility] Last Admin: 09/19/17 09:25 Dose: 40 mg Ramipril (Altace -) 10 mg PO DAILY [facility] Last Admin: 09/19/17 09:25 Dose: 10 mg Tamsulosin HCl (Flomax -) 0.4 mg PO DAILY@0830 [facility] Last Admin: 09/19/17 09:24 Dose: 0.4 mg Tiotropium [place] (Spiriva -) 1 puff IH DAILY [facility] Last Admin: 09/19/17 09:25 Dose: 1 inh - Objective Vital Signs: Vital Signs Temperature 98.5 F 09/19/17 09:17 Pulse Rate 77 09/19/17 09:17 Respiratory Rate 20 09/19/17 09:17 Blood Pressure 126/64 09/19/17 09:17 O2 Sat by Pulse Oximetry (%) 97 09/19/17 09:00 Cardiovascular: Yes: S1, S2 Respiratory: Yes: Regular, CTA Bilaterally Gastrointestinal: Yes: Normal Bowel Sounds, Soft Labs: CBC, BMP 09/19/17 05:05 09/19/17 05:05 INR, PTT INR 1.22 (0.82-1.09) H 08/21/17 06:55 Problem List - Problems (1) Chronic pancreatitis Code(s): K86.1 - OTHER CHRONIC PANCREATITIS Qualifiers: Pancreatitis type: unspecified pancreatitis type Qualified Code(s): K86.1 - Other chronic pancreatitis (2) 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 Code(s): E10.8 - TYPE 1 DIABETES MELLITUS WITH UNSPECIFIED COMPLICATIONS (3) CHF (congestive heart failure) Code(s): I50.9 - HEART FAILURE, UNSPECIFIED (4) Pneumonia Code(s): J18.9 - PNEUMONIA, UNSPECIFIED ORGANISM Qualifiers: Pneumonia type: due to unspecified organism Laterality: right Lung location: unspecified part of lung Qualified Code(s): J18.9 - Pneumonia, unspecified organism (5) Umbilical hernia Code(s): K42.9 - UMBILICAL HERNIA WITHOUT OBSTRUCTION OR GANGRENE Qualifiers: Obstruction and gangrene presence: without obstruction or gangrene Qualified Code(s): K42.9 - Umbilical hernia without obstruction or gangrene (6) COPD (chronic obstructive pulmonary disease) Code(s): J44.9 - CHRONIC OBSTRUCTIVE PULMONARY DISEASE, UNSPECIFIED (7) Coronary artery disease Code(s): I25.10 - ATHSCL HEART DISEASE OF [place] CORONARY ARTERY W/O ANG PCTRS Assessment/Plan - Problems (1) SBO (small bowel obstruction) Assessment/Plan: repeat ct scan done showed high grade partial SBO due to incarcerated umbilical hernia s/p hernia repair and bowel resection POD 6 diet advanced per surgery now ng tube removed off 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 bottle 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 pump dvt ppx xray Code(s): K56.609 - UNSP INTESTNL OBST, UNSP TO PARTIAL VERSUS COMPLETE OBST (2) ASHD (arteriosclerotic heart disease) Assessment/Plan: aspirin,plavix,lopresor and altace Code(s): I25.10 - ATHSCL HEART DISEASE OF [place] CORONARY ARTERY W/O ANG PCTRS (3) Hypokalemia Assessment/Plan: potassium is ok Code(s): E87.6 - HYPOKALEMIA (4) Hypertension Assessment/Plan: lopressor and altace Code(s): I10 - ESSENTIAL (PRIMARY) HYPERTENSION Qualifiers: Hypertension type: essential hypertension Qualified Code(s): I10 - Essential (primary) hypertension (5) BPH (benign prostatic hyperplasia) Assessment/Plan: flomax Code(s): N40.0 - BENIGN PROSTATIC HYPERPLASIA WITHOUT LOWER URINRY TRACT SYMP (6) COPD (chronic obstructive pulmonary disease) Assessment/Plan: bronchodilator nebulizers Code(s): J44.9 - CHRONIC OBSTRUCTIVE PULMONARY DISEASE, UNSPECIFIED (7) 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
--- NOTE | 2017-09-19 11:50 | PN ---
Progress Note (short form) - Note Progress Note: no new events Tolerating diet Pain controlled Vital Signs Period Temp Pulse Resp BP Sys/Gates Pulse Ox Last 24 Hr 98.5 F-99.7 F 77-95 20-20 126-156/64-92 97-97 Abd soft CBC, BMP 09/19/17 05:05 09/19/17 05:05 May shower with soap and water Daily dressing changes as ordered Problem List - Problems (1) Umbilical hernia Code(s): K42.9 - UMBILICAL HERNIA WITHOUT OBSTRUCTION OR GANGRENE Qualifiers: Obstruction and gangrene presence: without obstruction or gangrene Qualified Code(s): K42.9 - Umbilical hernia without obstruction or gangrene
[2017-09-19] MEDS: POLYETHYLENE GLYCOL 3350 119 GM BTL PO SCH ×2 (12:00→21:36)
[2017-09-19 12:44] LABS: PLATELET ESTIMATE INCREASED
[2017-09-19] MEDS: MONTELUKAST NA 10 MG TABLET PO SCH (21:31)
[2017-09-20] MEDS: ACETAMINOPHEN 1000 MG/100 ML VIAL (NON FORMULARY) IVPB PRN ×2 (01:38→13:43)
[2017-09-20] MEDS: oxyCODONE HCL 5 MG TABLET PO PRN ×3 (05:25→17:54)
[2017-09-20] MEDS: METOPROLOL TARTRATE 50 MG TABLET (FP) PO SCH ×2 (05:25→13:42)
[2017-09-20] MEDS: AMITRIPTYLINE HCL 25 MG TABLET (FP) NGT SCH ×2 (05:25→13:42)
[2017-09-20] MEDS: INSULIN DETEMIR 100 UNITS/ML MDV SQ SCH (06:11)
[2017-09-20] MEDS: INSULIN SLIDING SCALE (NOVOLOG) 1 VIAL SQ SCH ×3 (06:11→17:49)
[2017-09-20] MEDS ORDERED: PT OWN MED DRAWER 7, Y5N ONE ×3 (08:05→11:48)
[2017-09-20] MEDS: AMINO ACIDS/PROTEIN HYDROLYS 30 ML LIQUID.PKT PO SCH ×2 (08:14→17:49)
[2017-09-20] MEDS: LIPASE/PROTEASE/AMYLASE 36,000 UNIT CAPSULE PO SCH ×3 (08:15→17:48)
[2017-09-20] MEDS: TAMSULOSIN HCL 0.4 MG CAP.ER.24H (FP) PO SCH (08:16)
--- NOTE | 2017-09-20 09:50 | PN ---
Progress Note, Physician Chief Complaint: Events noted POD #10 laparotomy - second surgery after umbilical hernia surgery Less abdominal discomfort post op incisional, but clinically improving History of Present Illness: Patient was seen and examined. Awake and alert. Chart was reviewed Denies chest pain, SOB or palpitations Await transfer to SNF - Current Medication List Current Medications: Active Medications Acetaminophen (Ofirmev Injection -) 1,000 mg IVPB Q6H PRN PRN Reason: PAIN Last Admin: 09/20/17 01:38 Dose: 1,000 mg Amino Acids (Prosource No Carb Liquid Pkt) 30 ml PO BID@0800,1730 [facility] Last Admin: 09/20/17 08:14 Dose: 30 ml Amitriptyline HCl (Elavil -) 25 mg NGT TID [facility] Last Admin: 09/20/17 05:25 Dose: 25 mg Amlodipine Besylate (Norvasc -) 5 mg PO DAILY [facility] Aspirin (Ecotrin -) 81 mg PO DAILY [facility] Last Admin: 09/19/17 09:25 Dose: 81 mg Budesonide/Formoterol Fumarate (Symbicort 160/4.5mcg -) 1 puff IH BID [facility] Last Admin: 09/19/17 21:32 Dose: 1 puff Clopidogrel Bisulfate (Plavix -) 75 mg NGT DAILY [facility] Last Admin: 09/19/17 09:25 Dose: 75 mg Finasteride (Proscar -) 5 mg PO DAILY [facility] Last Admin: 09/19/17 09:24 Dose: 5 mg Heparin Sodium (Porcine) (Heparin -) 5,000 unit SQ BID [facility] Last Admin: 09/19/17 21:29 Dose: 5,000 unit IV Flush (Picc Line Flush) 8 ml IVPUSH PRN PRN PRN Reason: Protocol Last Admin: 09/19/17 14:45 Dose: 8 ml Insulin Aspart (Novolog Vial Sliding Scale -) 1 vial SQ ACHS [facility] PRN Reason: Protocol Last Admin: 09/20/17 06:11 Dose: 5 units Insulin Detemir (Levemir Vial) 28 units SQ HS [facility] Last Admin: 09/19/17 21:30 Dose: Not Given Insulin Detemir (Levemir Vial) 40 units SQ AM [facility] Last Admin: 09/20/17 06:11 Dose: 40 units Metoprolol Tartrate (Lopressor -) 50 mg PO TID [facility] Last Admin: 09/20/17 05:25 Dose: 50 mg Montelukast Sodium (Singulair -) 10 mg PO HS [facility] Last Admin: 09/19/17 21:31 Dose: 10 mg Multivitamins/Minerals/Vitamin C (Tab-A-Vit -) 1 tab PO DAILY [facility] Last Admin: 09/19/17 09:24 Dose: 1 tab Ondansetron HCl (Zofran Odt -) 4 mg SL Q6H PRN PRN Reason: NAUSEA AND/OR VOMITING Last Admin: 09/19/17 09:24 Dose: 4 mg Oxycodone HCl (Roxicodone -) 10 mg PO Q6H PRN PRN Reason: PAIN LEVEL 5 - 10 Last Admin: 09/20/17 05:25 Dose: 10 mg Pancrelipase (Creon Dr 36,000 Units Capsule) 1 cap PO TIDCM [facility] Last Admin: 09/20/17 08:15 Dose: 1 cap Pantoprazole Sodium (Protonix -) 40 mg PO DAILY [facility] Last Admin: 09/19/17 09:25 Dose: 40 mg Polyethylene Glycol (Miralax (For Daily Use) -) 17 gm PO BID [facility] Last Admin: 09/19/17 21:36 Dose: 17 grams Ramipril (Altace -) 10 mg PO DAILY [facility] Last Admin: 09/19/17 09:25 Dose: 10 mg Tamsulosin HCl (Flomax -) 0.4 mg PO DAILY@0830 [facility] Last Admin: 09/20/17 08:16 Dose: 0.4 mg Tiotropium [place] (Spiriva -) 1 puff IH DAILY [facility] Last Admin: 09/19/17 09:25 Dose: 1 inh - Objective Vital Signs: Vital Signs Temperature 98 F 09/20/17 09:16 Pulse Rate 86 09/20/17 09:16 Respiratory Rate 18 09/20/17 09:16 Blood Pressure 155/94 09/20/17 09:16 O2 Sat by Pulse Oximetry (%) 96 09/19/17 20:32 Eyes: Yes: PERRL HENT: Yes: Atraumatic Neck: Yes: Supple Cardiovascular: Yes: Regular Rate and Rhythm, S1, S2 Respiratory: Yes: CTA Bilaterally Gastrointestinal: Yes: Normal Bowel Sounds, Soft. No: Tenderness Edema: No Additional Findings/Remarks: - Review of Systems Constitutional: denies: Chills, Fever Cardiovascular: denies: Chest Pain, Palpitations, Shortness of Breath Respiratory: denies: Cough, Hemoptysis, Orthopnea, PND, SOB, SOB on Exertion Gastrointestinal: (+) Abdominal Pain, denies: Constipation, Diarrhea, Melena, Nausea, Rectal Bleeding, Vomiting Genitourinary: denies urologic symptoms Neurological: denies: Dizziness, Headache, Seizure, Syncope Problem List - Problems (1) Chronic pancreatitis Code(s): K86.1 - OTHER CHRONIC PANCREATITIS Qualifiers: Pancreatitis type: unspecified pancreatitis type Qualified Code(s): K86.1 - Other chronic pancreatitis (2) 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 Code(s): E10.8 - TYPE 1 DIABETES MELLITUS WITH UNSPECIFIED COMPLICATIONS (3) Hematuria Code(s): R31.9 - HEMATURIA, UNSPECIFIED (4) Renal calculus, left Code(s): N20.0 - CALCULUS OF KIDNEY (5) ASHD (arteriosclerotic heart disease) Code(s): I25.10 - ATHSCL HEART DISEASE OF [place] CORONARY ARTERY W/O ANG PCTRS (6) Abdominal pain Code(s): R10.9 - UNSPECIFIED ABDOMINAL PAIN Qualifiers: Abdominal location: upper abdomen, unspecified Qualified Code(s): R10.10 - Upper abdominal pain, unspecified (7) Acute on chronic diastolic (congestive) heart failure Code(s): I50.33 - ACUTE ON CHRONIC DIASTOLIC (CONGESTIVE) HEART FAILURE (8) Anemia Code(s): D64.9 - ANEMIA, UNSPECIFIED (9) Asthma Code(s): J45.909 - UNSPECIFIED ASTHMA, UNCOMPLICATED Qualifiers: Asthma severity: unspecified severity (10) Diabetes mellitus Code(s): E11.9 - TYPE 2 DIABETES MELLITUS WITHOUT COMPLICATIONS Qualifiers: Diabetes mellitus type: type 2 Diabetes mellitus complication detail: with unspecified neuropathy (11) Hypertension Code(s): I10 - ESSENTIAL (PRIMARY) HYPERTENSION Qualifiers: Hypertension type: essential hypertension Qualified Code(s): I10 - Essential (primary) hypertension (12) IPMN (intraductal papillary mucinous neoplasm) Code(s): D49.0 - NEOPLASM OF UNSPECIFIED BEHAVIOR OF DIGESTIVE SYSTEM (13) GRACIE (obstructive sleep apnea) Code(s): G47.33 - OBSTRUCTIVE SLEEP APNEA (ADULT) (PEDIATRIC) (14) S/P laparotomy Code(s): Z98.890 - OTHER SPECIFIED POSTPROCEDURAL STATES Assessment/Plan 1. POD #10 exploratory laparotomy, Small bowel surgery and umbilical hernia repair 2. History of chronic pancreatitis 3. Chronic atypical chest pain syndrome, resolved 4. CAD post MD, post PCI (stents), angina pectoris 5. Diastolic LV dysfunction with chronic class 0-I NYHA classification LV failure, compensated/euvolemic 6. HTN/HCVD 7. DM 8. Hyperlipidemia 9. OSAS 10. COPD/Asthma 11. Acute on CKD resolved PLAN: 1. Continue Lopressor (change to 100 BID and Altace 10 qd as tolerated) 2. Continue ASA 81 qd and Plavix 75 qd as tolerated 3. Amlodipine 5 QD 4. Pain management 5. Surgery follow up for post operative management 6. DVT and GI prophylaxis and TPN 7. OOB to chair as tolerated. PT and SNF for rehab [facility] Further plans are to follow Samuel Calvillo MD
[2017-09-20] MEDS ORDERED: amLODIPine BESYLATE 5 MG TABLET (FP) PO SCH (10:00)
[2017-09-20] MEDS: FINASTERIDE 5 MG TABLET (FP) PO SCH (10:43)
[2017-09-20] MEDS: MULTIVITAMINS (DAILY MVI) TABLET (FP) PO SCH (10:43)
[2017-09-20] MEDS: PANTOPRAZOLE 40 MG TABLET (FP) PO SCH (10:43)
[2017-09-20] MEDS: HEPARIN NA (PORCINE) 5,000 UNITS/ML 1ML VIAL SQ SCH (10:43)
[2017-09-20] MEDS: ASPIRIN COATED 81 MG TABLET.EC PO SCH (10:43)
[2017-09-20] MEDS: POLYETHYLENE GLYCOL 3350 119 GM BTL PO SCH (10:44)
[2017-09-20] MEDS: CLOPIDOGREL BISULFATE 75 MG TABLET (FP) NGT SCH (10:44)
[2017-09-20] MEDS: RAMIPRIL 5 MG CAPSULE (FP) PO SCH (10:44)
[2017-09-20] MEDS: TIOTROPIUM BROMIDE 18 MCG/INH (DEVICE W/ 5 CAPSULES) IH SCH (10:46)
[2017-09-20] MEDS: BUDESONIDE/FORMETEROL FUMARATE 160/4.5 mcg INHALER IH SCH (10:47)
[2017-09-20] MEDS ORDERED: INSULIN (NOVOLOG) ASPART 100 UNITS/ML 10ML VIAL ONE ×2 (11:47→18:47)
--- NOTE | 2017-09-20 12:11 | PN ---
Progress Note (short form) - Note Progress Note: No new events Tolerating diet Pain controlled Vital Signs Period Temp Pulse Resp BP Sys/Gates Pulse Ox Last 24 Hr 98 F-98.7 F 84-99 18-20 127-163/71-98 96-98 Abd soft Dressings changed by RN daily CBC, BMP 09/19/17 05:05 09/19/17 05:05 Daily dressing changes Discharge planning Problem List - Problems (1) Umbilical hernia Code(s): K42.9 - UMBILICAL HERNIA WITHOUT OBSTRUCTION OR GANGRENE Qualifiers: Obstruction and gangrene presence: without obstruction or gangrene Qualified Code(s): K42.9 - Umbilical hernia without obstruction or gangrene
--- NOTE | 2017-09-20 15:15 | DS ---
Physical Examination Vital Signs: Vital Signs Temperature 98.3 F 09/20/17 14:00 Pulse Rate 101 H 09/20/17 14:00 Respiratory Rate 20 09/20/17 14:00 Blood Pressure 142/88 09/20/17 14:00 O2 Sat by Pulse Oximetry (%) 98 09/20/17 09:00 Findings/Remarks: awake alert feeling better Constitutional: Yes: Mild Distress Eyes: Yes: WNL HENT: Yes: WNL Neck: Yes: WNL Cardiovascular: Yes: Pulse Irregular Respiratory: Yes: WNL Gastrointestinal: Yes: Tenderness Renal/: Yes: WNL Musculoskeletal: Yes: Back Pain, Muscle Weakness Extremities: Yes: Other Edema: Yes Peripheral Pulses WNL: Yes Integumentary: Yes: Other Wound/Incision: Yes: Dressing Dry and Intact, Other Neurological: Yes: Pre-Existing Deficit ...Motor Strength: LLE, RLE Psychiatric: Yes: Other Labs: CBC, BMP 09/19/17 05:05 09/19/17 05:05 Discharge Summary Reason For Visit: PNEUMONIA Current Active Problems CHF (congestive heart failure) (Acute) Chest pain (Acute) Chronic pancreatitis (Acute) 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 (Acute) H/O umbilical hernia repair (Acute) Hematuria (Acute) Leukocytosis (Acute) Pneumonia (Acute) Renal calculus, left (Acute) S/P laparotomy (Acute) SBO (small bowel obstruction) (Acute) Umbilical hernia (Acute) Procedures: Principal: SURGERY INCARCERIATED HERNIA/ABD PAIN ILEUS Hospital Course: ADMITTED WITH ABD PAIN ILEUS SBO, INCARCERATED HERNIA, TREATED WITH SURGERY REPAIR, NGT FOR BOWEL DECOMPRESSION, PAIN CONTROL, IV ABX, Condition: Fair - Instructions Diet, Activity, Other Instructions: LOW FAT LOW SODIUM WOUND CARE DAILY PAIN CONTROL WILL NEED SURGERY FOLLOW UP DR CARTER Disposition: ALF FACILITY - Home Medications Comprehensive Discharge Medication List: Ambulatory Orders Albuterol 0.083% Nebulizer Elena [Ventolin 0.083%] 1 neb NEB Q4H 08/18/17 Albuterol Sulfate Inhaler - [Ventolin Hfa Inhaler -] 1 - 2 inh PO Q4H PRN Amlodipine Besylate [Norvasc -] 0 mg PO DAILY 08/18/17 Arformoterol Tartrate [Brovana] 15 mcg IH ASDIR 08/18/17 Aspirin [Aspirin EC] 81 mg PO DAILY 08/18/17 Budesonide/Formeterol Fumarate [SYMBICORT 160/4.5mcg -] 1 inh PO DAILY 08/18/17 Clopidogrel Bisulfate [Plavix] 75 mg PO DAILY 08/18/17 Dexlansoprazole [Dexilant] 30 mg PO DAILY 08/18/17 Diazepam [Valium] 5 mg PO PRN PRN 08/18/17 Ezetimibe [Zetia -] 10 mg PO DAILY 08/18/17 Furosemide [Lasix] 40 mg PO DAILY 08/18/17 Insulin Lispro [Humalog] 0 unit SQ PRN PRN 08/18/17 Insulin Pump Controller [Snap Insulin Pump Controller] 1 each MC ASDIR 08/18/17 Montelukast Sodium [Singulair] 10 mg PO DAILY 08/18/17 Ramipril [Altace] 10 mg PO DAILY 08/18/17 Ranitidine HCl 150 mg PO PRN PRN 08/18/17 Rosuvastatin Calcium [Crestor] 10 mg PO DAILY 08/18/17 Tiotropium [place] [Spiriva] 1 puff IH DAILY 08/18/17 Amino Acids/Protein Hydrolys [Prosource No Carb Liquid Pkt] 30 ml PO BID@0800, 1730 packet 09/20/17 Amitriptyline HCl [Elavil -] 25 mg NGT TID tablet 09/20/17 Amlodipine Besylate [Norvasc -] 5 mg PO DAILY tablet 09/20/17 Clopidogrel Bisulfate [Plavix -] 75 mg NGT DAILY tablet 09/20/17 Finasteride [Proscar -] 5 mg PO DAILY tablet 09/20/17 Heparin - 5,000 unit SQ BID vial 09/20/17 Insulin (Levemir) [Levemir Vial] 28 units SQ HS ml 09/20/17 Insulin (Levemir) [Levemir Vial] 40 units SQ AM ml 09/20/17 Insulin Sliding Scale [Novolog Vial Sliding Scale -] 1 vial SQ ACHS units 09/20 Lipase/Protease/Amylase [[place]acy [place] 36,000 Units Capsule] 1 cap PO TIDCM capsule. 09/20/17 Metoprolol Tartrate [Lopressor -] 100 mg PO BID tablet 09/20/17 Montelukast Na [Singulair -] 10 mg PO HS tablet 09/20/17 Multivitamins [Multivit ([facility])] 1 tab PO DAILY tab 09/20/17 Pantoprazole Sodium [Protonix -] 40 mg PO DAILY tablet.ec 09/20/17 Picc Line Flush [Picc Line Flush -] 8 ml IVPUSH PRN PRN ml 09/20/17 Polyethylene Glycol 3350 [Miralax 119 gm Btl -] 17 gm PO BID bottle 09/20/17 Ramipril [Altace] 10 mg PO DAILY capsule 09/20/17 Tamsulosin HCl [Flomax -] 0.4 mg PO DAILY@0830 cap.er.24h 09/20/17 oxyCODONE HCL [Roxicodone -] 10 mg PO Q6H PRN tablet MDD 6 09/20/17
--- NOTE | 2017-09-20 16:01 | PN ---
Progress Note, Physician History of Present Illness: Pt. alert, no chest pain, palpitations or dyspnea. Taking p.o. and having B.M.s Pain controlled - Current Medication List Current Medications: Active Medications Acetaminophen (Ofirmev Injection -) 1,000 mg IVPB Q6H PRN PRN Reason: PAIN Last Admin: 09/20/17 13:43 Dose: 1,000 mg Amino Acids (Prosource No Carb Liquid Pkt) 30 ml PO BID@0800,1730 [facility] Last Admin: 09/20/17 08:14 Dose: 30 ml Amitriptyline HCl (Elavil -) 25 mg NGT TID [facility] Last Admin: 09/20/17 13:42 Dose: 25 mg Amlodipine Besylate (Norvasc -) 5 mg PO DAILY [facility] Last Admin: 09/20/17 10:43 Dose: 5 mg Aspirin (Ecotrin -) 81 mg PO DAILY [facility] Last Admin: 09/20/17 10:43 Dose: 81 mg Budesonide/Formoterol Fumarate (Symbicort 160/4.5mcg -) 1 puff IH BID [facility] Last Admin: 09/20/17 10:47 Dose: 1 puff Clopidogrel Bisulfate (Plavix -) 75 mg NGT DAILY [facility] Last Admin: 09/20/17 10:44 Dose: 75 mg Finasteride (Proscar -) 5 mg PO DAILY [facility] Last Admin: 09/20/17 10:43 Dose: 5 mg Heparin Sodium (Porcine) (Heparin -) 5,000 unit SQ BID [facility] Last Admin: 09/20/17 10:43 Dose: 5,000 unit IV Flush (Picc Line Flush) 8 ml IVPUSH PRN PRN PRN Reason: Protocol Last Admin: 09/19/17 14:45 Dose: 8 ml Insulin Aspart (Novolog Vial Sliding Scale -) 1 vial SQ ACHS [facility] PRN Reason: Protocol Last Admin: 09/20/17 12:48 Dose: 8 units Insulin Detemir (Levemir Vial) 28 units SQ HS [facility] Last Admin: 09/19/17 21:30 Dose: Not Given Insulin Detemir (Levemir Vial) 40 units SQ AM [facility] Last Admin: 09/20/17 06:11 Dose: 40 units Metoprolol Tartrate (Lopressor -) 100 mg PO BID [facility] Montelukast Sodium (Singulair -) 10 mg PO HS [facility] Last Admin: 09/19/17 21:31 Dose: 10 mg Multivitamins/Minerals/Vitamin C (Tab-A-Vit -) 1 tab PO DAILY [facility] Last Admin: 09/20/17 10:43 Dose: 1 tab Ondansetron HCl (Zofran Odt -) 4 mg SL Q6H PRN PRN Reason: NAUSEA AND/OR VOMITING Last Admin: 09/19/17 09:24 Dose: 4 mg Oxycodone HCl (Roxicodone -) 10 mg PO Q6H PRN PRN Reason: PAIN LEVEL 5 - 10 Last Admin: 09/20/17 11:41 Dose: 10 mg Pancrelipase (Creon Dr 36,000 Units Capsule) 1 cap PO TIDCM [facility] Last Admin: 09/20/17 12:49 Dose: 1 cap Pantoprazole Sodium (Protonix -) 40 mg PO DAILY [facility] Last Admin: 09/20/17 10:43 Dose: 40 mg Polyethylene Glycol (Miralax (For Daily Use) -) 17 gm PO BID [facility] Last Admin: 09/20/17 10:44 Dose: 17 grams Ramipril (Altace -) 10 mg PO DAILY [facility] Last Admin: 09/20/17 10:44 Dose: 10 mg Tamsulosin HCl (Flomax -) 0.4 mg PO DAILY@0830 [facility] Last Admin: 09/20/17 08:16 Dose: 0.4 mg Tiotropium [place] (Spiriva -) 1 puff IH DAILY [facility] Last Admin: 09/20/17 10:46 Dose: 1 puff - Objective Vital Signs: Vital Signs Temperature 98.3 F 09/20/17 14:00 Pulse Rate 101 H 09/20/17 14:00 Respiratory Rate 20 09/20/17 14:00 Blood Pressure 142/88 09/20/17 14:00 O2 Sat by Pulse Oximetry (%) 98 09/20/17 09:00 Constitutional: Yes: No Distress HENT: Yes: Atraumatic, Normocephalic Neck: Yes: Trachea Midline (trach site clean and dry) Cardiovascular: Yes: Regular Rate and Rhythm. No: JVD Respiratory: Yes: CTA Bilaterally Gastrointestinal: Yes: Soft. No: Tenderness Edema: No Neurological: Yes: Alert, Oriented Labs: CBC, BMP 09/19/17 05:05 09/19/17 05:05 INR, PTT INR 1.22 (0.82-1.09) H 08/21/17 06:55 - ....Imaging X-ray: Report Reviewed (KUB) Problem List - Problems (1) Umbilical hernia Code(s): K42.9 - UMBILICAL HERNIA WITHOUT OBSTRUCTION OR GANGRENE Qualifiers: Obstruction and gangrene presence: without obstruction or gangrene Qualified Code(s): K42.9 - Umbilical hernia without obstruction or gangrene (2) COPD (chronic obstructive pulmonary disease) Code(s): J44.9 - CHRONIC OBSTRUCTIVE PULMONARY DISEASE, UNSPECIFIED (3) Coronary artery disease Code(s): I25.10 - ATHSCL HEART DISEASE OF [place] CORONARY ARTERY W/O ANG PCTRS (4) Diabetes mellitus Code(s): E11.9 - TYPE 2 DIABETES MELLITUS WITHOUT COMPLICATIONS Qualifiers: Diabetes mellitus type: type 2 Diabetes mellitus complication detail: with unspecified neuropathy (5) Pancreatitis Code(s): K85.9 - ACUTE PANCREATITIS, UNSPECIFIED * DO NOT USE * Qualifiers: Chronicity: acute Pancreatitis type: other (6) Sleep apnea Code(s): G47.30 - SLEEP APNEA, UNSPECIFIED (7) Tracheostomy in place Code(s): Z98.89 - OTHER SPECIFIED POSTPROCEDURAL STATES * DO NOT USE * Assessment/Plan Respiratory status is stable. S/P abdominal surgery x 2. Pt eating. + B.M. Suggest: continue bronchodilators continue current treatments Discharge planning in progress-transfer to SNF when bed available.
[2017-09-20 19:02] VITALS: BP 153/94; PULSE 89; TEMP 98
[2017-09-20] MEDS ORDERED: METOPROLOL TARTRATE 50 MG TABLET (FP) PO SCH (22:00)
== END 2017-09-20 20:02 | DRG 221 ==
LOC: JER 13:36 → JERBED 20:45 → J4W 08-19 16:55 → J6S 08-20 17:30 → J4W 09-10 18:14
PROVIDERS: ADMIT Internal Medicine; ATTEND Family Medicine
PROC: 0DNW0ZZ Release Peritoneum, Open Approach (ICD-10-PCS; 2017-08-26)
PROC: 0DTU0ZZ Resection of Omentum, Open Approach (ICD-10-PCS; 2017-08-26)
PROC: 0WQF0ZZ Repair Abdominal Wall, Open Approach (ICD-10-PCS; principal; 2017-08-26 18:00)
PROC: 0D9670Z Drainage of Stomach with Drainage Device, Via Natural or Artificial Opening (ICD-10-PCS; 2017-08-30)
PROC: 0D9670Z Drainage of Stomach with Drainage Device, Via Natural or Artificial Opening (ICD-10-PCS; 2017-09-08)
PROC: 02HV33Z Insertion of Infusion Device into Superior Vena Cava, Percutaneous Approach (ICD-10-PCS; 2017-09-09)
PROC: B518ZZA Fluoroscopy of Superior Vena Cava, Guidance (ICD-10-PCS; 2017-09-09)
PROC: 3E043GC Introduction of Other Therapeutic Substance into Central Vein, Percutaneous Approach (ICD-10-PCS; 2017-09-09)
PROC: 0DT80ZZ Resection of Small Intestine, Open Approach (ICD-10-PCS; 2017-09-10)
PROC: 0DNW0ZZ Release Peritoneum, Open Approach (ICD-10-PCS; 2017-09-10)
PROC: 0WQF0ZZ Repair Abdominal Wall, Open Approach (ICD-10-PCS; 2017-09-10)
DX: K42.0 Umbilical hernia with obstruction, without gangrene (principal); K66.0 Peritoneal adhesions (postprocedural) (postinfection); K91.30 Postprocedural intestinal obstruction, unspecified as to partial versus complete; Y83.9 Surgical procedure, unspecified as the cause of abnormal reaction of the patient, or of later complication, without mention of misadventure at the time of the procedure; K55.9 Vascular disorder of intestine, unspecified; E78.5 Hyperlipidemia, unspecified; Z98.61 Coronary angioplasty status; J18.9 Pneumonia, unspecified organism; K86.1 Other chronic pancreatitis; G89.29 Other chronic pain; J44.9 Chronic obstructive pulmonary disease, unspecified; J45.909 Unspecified asthma, uncomplicated; F41.9 Anxiety disorder, unspecified; N40.0 Benign prostatic hyperplasia without lower urinary tract symptoms; R31.9 Hematuria, unspecified; D72.829 Elevated white blood cell count, unspecified; N20.0 Calculus of kidney; K56.7 Ileus, unspecified; I50.33 Acute on chronic diastolic (congestive) heart failure; D64.9 Anemia, unspecified; R07.89 Other chest pain; I13.0 Hypertensive heart and chronic kidney disease with heart failure and stage 1 through stage 4 chronic kidney disease, or unspecified chronic kidney disease; N18.9 Chronic kidney disease, unspecified; E87.6 Hypokalemia; G47.33 Obstructive sleep apnea (adult) (pediatric); I25.119 Atherosclerotic heart disease of native coronary artery with unspecified angina pectoris; I47.1 Supraventricular tachycardia; K56.609 Unspecified intestinal obstruction, unspecified as to partial versus complete obstruction; E83.39 Other disorders of phosphorus metabolism; E10.65 Type 1 diabetes mellitus with hyperglycemia; K20.9 Esophagitis, unspecified; I27.20 Pulmonary hypertension, unspecified; M54.17 Radiculopathy, lumbosacral region; Z93.0 Tracheostomy status; E66.9 Obesity, unspecified; Z68.33 Body mass index [BMI] 33.0-33.9, adult; Z79.4 Long term (current) use of insulin; Z95.1 Presence of aortocoronary bypass graft
CPT/HCPCS: 36415; 36569; 71045-TC-FY; 71275-TC; 72148-TC; 74018-TC-FY; 74019-TC-FY; 74175-TC; 74176-TC; 74178-TC; 74220-TC-FY; 74240-TC-FY; 76775-TC; 77001-TC-FY; 80048; 80053; 80061; 81003; 81015; 82150; 82550; 82553; 82962; 83036; 83520; 83690; 83721; 83735; 84100; 84132; 84484; 85025; 85027; 85610; 85730; 86256; 87040; 87070; 87077; 87086; 87205; 87804; 87899; 88305-TC; 88307-TC; 93005; 93010; 93976; 94010; 94640; 94760; 97116-GP; 97161-GP; 99285-25; C1751; G0480; J1170; J1644

== ENCOUNTER 2018-03-30 08:48 | Inpatient (IN) | payer OTHER ==
--- NOTE | 2018-03-30 09:32 | PDOC ---
History of Present Illness - History of Present Illness Initial Comments: 03/30/18 10:25 The patient is a 62 year old male with significant history of hypertension, hyperlipidemia, CAD s/p [place] s/p stents x 6 s/p CABG, chronic pancreatitis, chronic back pain (takes oxycodone), SBO, incarcerated hernia s/p repair x2 ( September 2017), H.Pylori, BPH, COPD, tracheostomy in place (unplugs when sleeping for sleep apnea), who presents to the ED complaining of one week of intermittent fevers and chills, productive cough, generalized weakness, shortness of breath, and chest tightness. The patient states he feels sweaty one minute and cold the next. He states his cough is productive of beige sputum. He states he has been having chest tightness that radiates to his back which is exacerbated by his cough. He denies blood in his sputum. He denies radiation of chest pain. The patient states he has been using his nebulizers at home every 4 hours with little to no resolve of symptoms. He states he is concerned for pneumonia at this time. He denies any mucus, sputum, or blood from his trach tube. He states he cleans the tube regularly. No travel or sick contacts. Secondarily, he states he has chronic abdominal pain and is scheduled for endoscopy to evaluate his benign pancreatic tumors. The patient denies headache and dizziness. The patient denies nausea, vomit, diarrhea and constipation. The patient denies dysuria, frequency, urgency and hematuria. Allergies: tetracycline, shellfish Surgical Hx: stents x 6, CABG, hernia repairs, tracheostomy placement Diabetes: Mother, CA: Father (mesothelioma), Respiratory: Brother (bronchial asthma) PCP: Dr. Murali Gustafson GI: Dr. Lion <Zora Baeza - Last Filed: 03/30/18 10:17> - General History Source: Patient Exam Limitations: No Limitations <Nita Hatfield - Last Filed: 03/30/18 12:18> - General Chief Complaint: Shortness of Breath Stated Complaint: CHEST PAIN Time Seen by Provider: 03/30/18 09:32 Past History <Zora Baeza - Last Filed: 03/30/18 10:17> - Past Medical History Anemia: No Asthma: Yes Cancer: No Cardiac Disorders: Yes ([place], stents x 6, CAD) CVA: No COPD: Yes (trach,) CHF: Yes Dementia: No Diabetes: Yes GI Disorders: Yes (H-Pylori, Diverticulosis, Colon Polyps) Disorders: No HTN: Yes Hypercholesterolemia: Yes Liver Disease: No Seizures: No Thyroid Disease: No - Surgical History Abdominal Surgery: No Appendectomy: No Cardiac Surgery: Yes (STENTS X6) Cholecystectomy: No Lung Surgery: No Neurologic Surgery: Yes (nerve damage from accident - CERVICAL SURGERY) Orthopedic Surgery: Yes (LUMBAR SURGERY, L HAND SOFT TISSUE REPAIR) - Immunization History Immunization Up to Date: Yes - Suicide/Smoking/Psychosocial Hx Smoking History: Never smoked Have you smoked in the past 12 months: No Number of Cigarettes Smoked Daily: 0 Hx Alcohol Use: No Drug/Substance Use Hx: No Substance Use Type: None Hx Substance Use Treatment: No <Nita Hatfield - Last Filed: 03/30/18 12:18> - Past Medical History Allergies/Adverse Reactions: Allergies Allergy/AdvReac Type Severity Reaction Status Date / Time shellfish derived Allergy Severe Verified 08/18/17 13:42 Tetracyclines Allergy Severe Verified 08/18/17 13:42 Home Medications: Ambulatory Orders Albuterol Sulfate Inhaler - [Ventolin Hfa Inhaler -] 1 - 2 inh PO Q4H PRN Arformoterol Tartrate [Brovana] 15 mcg ASDIR 08/18/17 Aspirin [Aspirin EC] 81 mg PO DAILY 08/18/17 Budesonide/Formeterol Fumarate [SYMBICORT 160/4.5mcg -] 1 inh PO DAILY 08/18/17 Clopidogrel Bisulfate [Plavix] 75 mg PO DAILY 08/18/17 Dexlansoprazole [Dexilant] 30 mg PO DAILY 08/18/17 Diazepam [Valium] 5 mg PO PRN PRN 08/18/17 Ezetimibe [Zetia -] 10 mg PO DAILY 08/18/17 Furosemide [Lasix] 40 mg PO DAILY 08/18/17 Insulin Lispro [Humalog] 0 unit SQ PRN PRN 08/18/17 Insulin Pump Controller [Snap Insulin Pump Controller] 1 each ASDIR 08/18/17 Montelukast Sodium [Singulair] 10 mg PO DAILY 08/18/17 Ranitidine HCl 150 mg PO PRN PRN 08/18/17 Rosuvastatin Calcium [Crestor] 10 mg PO DAILY 08/18/17 Tiotropium [place] [Spiriva] 1 puff IH DAILY 08/18/17 Amino Acids/Protein Hydrolys [Prosource No Carb Liquid Pkt] 30 ml PO BID@0800, 1730 packet 09/20/17 Amlodipine Besylate [Norvasc -] 5 mg PO DAILY tablet 09/20/17 Finasteride [Proscar -] 5 mg PO DAILY tablet 09/20/17 Insulin (Levemir) [Levemir Vial] 28 units SQ HS ml 09/20/17 Insulin (Levemir) [Levemir Vial] 40 units SQ AM ml 09/20/17 Insulin Sliding Scale [Novolog Vial Sliding Scale -] 1 vial SQ ACHS units 09/20 Lipase/Protease/Amylase [Stacy Hackett 36,000 Units Capsule] 1 cap PO TIDCM capsule. 09/20/17 Montelukast Na [Singulair -] 10 mg PO HS tablet 09/20/17 Multivitamins [Multivit ([facility] Formulary)] 1 tab PO DAILY tab 09/20/17 Polyethylene Glycol 3350 [Miralax 119 gm Btl -] 17 gm PO BID bottle 09/20/17 Ramipril [Altace] 10 mg PO DAILY capsule 09/20/17 Tamsulosin HCl [Flomax -] 0.4 mg PO DAILY@0830 cap.er.24h 09/20/17 Amitriptyline HCl [Elavil -] 25 mg PO DAILY 03/30/18 Gabapentin 600 mg PO DAILY 03/30/18 HYDROmorphone [Dilaudid -] 4 mg PO Q8H 03/30/18 Mesalamine [Pentasa] 500 mg PO DAILY 03/30/18 Ondansetron [Zofran -] 4 mg PO BID 03/30/18 Oxycodone HCl/Acetaminophen [Oxycodon-Acetaminophen 7.5-325] 1 each PO DAILY Prednisone 10 mg PO DAILY 03/30/18 Tapentadol HCl [Nucynta ER] 200 mg PO DAILY 03/30/18 Respiratory Specific PMHX - Complaint Specific PMHX Angina: Yes Bronchitis: Yes Pneumonia: No Pulmonary Embolus: No TB (Tuberculosis): No <Nita Hatfield - Last Filed: 03/30/18 12:18> Review of Systems - Review of Systems Able to Perform ROS?: Yes Comments:: 03/30/18 10:25 GENERAL/CONSTITUTIONAL: (+) fever or chills. weakness, sweats. HEAD, EYES, EARS, NOSE AND THROAT: No change in vision or hearing. No ear pain or discharge. No sore throat or mouth pain. No difficulty swallowing.. No congestion. CARDIOVASCULAR: (+) chest tightness. No palpitations, syncope or edema. RESPIRATORY: (+) SOB, productive cough, No wheezing, or hemoptysis. GASTROINTESTINAL No nausea/vomiting. No diarrhea or constipation. No bloody stools. GENITOURINARY: No hematuria, dysuria, frequency, urgency or other changes. MUSCULOSKELETAL: No joint or muscle swelling or pain. No neck or back pain. SKIN: No rash or changes in skin color or lesions. NEUROLOGIC: No headache, vertigo, loss of consciousness, or change in strength/ sensation. HEMATOLOGIC/LYMPHATIC: No anemia, easy bruising/bleeding, or history of blood clots. ALLERGIC/IMMUNOLOGIC: No allergies All other systems reviewed and negative, or as documented in HPI. <Zora Baeza - Last Filed: 03/30/18 10:17> *Physical Exam - Vital Signs Last Vital Signs Temp Pulse Resp BP Pulse Ox 99.1 F 105 H 20 147/79 97 03/30/18 10:11 03/30/18 09:40 03/30/18 08:52 03/30/18 08:52 03/30/18 09:40 - Physical Exam Comments: 03/30/18 10:25 General: Well appearing, awake and alert, mild respiratory distress, taking deep breaths. HEENT: NCAT, PERRL, EOMI, clear conjunctiva, anicteric, moist mucus membranes, clear oropharynx, no oral lesions.. Neck: (+) trach tube is clean dry and intact, nonerythematous. neck supple, FROM Resp: lungs clear bilaterally, mild respiratory distress and taking long deep inspiratory breaths. CVS: mild tachy, no murmurs, 2+ peripheral pulses throughout, no peripheral edema Abdomen: (+) periumbilical scars nontender. soft, NTND, no peritoneal signs. Back: nontender, normal inspection and ROM MSK: (+) 2+ pitting edema to ankles and pretibial bilaterally. , REGAN x4, ROM intact. No clubbing or cyanosis. normal bulk and tone. No calf tenderness Neuro: alert, oriented appropriately; no focal neurologic deficits. Skin: warm and well perfused, cap refill <2 sec, normal color <Zora Baeza - Last Filed: 03/30/18 10:17> - Vital Signs Last Vital Signs Temp Pulse Resp BP Pulse Ox 98.5 F 106 H 20 147/79 97 03/30/18 08:52 03/30/18 08:52 03/30/18 08:52 03/30/18 08:52 03/30/18 08:52 <Nita Hatfield - Last Filed: 03/30/18 12:18> Heart Score/ECG Review - ECG Impressions Comment:: 03/30/18 11:24 EKG sinus tachycardia, no interval abnormalities, narrow QRS, ST and T wave segments and morphology normal. Nonspecific T wave abnormalities in III only. 03/30/18 11:26 <Nita Hatfield - Last Filed: 03/30/18 12:18> ED Treatment Course - LABORATORY CBC & Chemistry Diagram: 03/30/18 09:31 - Medications Given in the ED: ED Medications Discontinued Medications Generic Name Dose Route Start Last Admin Trade Name Pawelq PRN Reason Stop Dose Admin Albuterol/Ipratropium 1 amp 03/30/18 09:51 03/30/18 10:00 Duoneb - NEB 03/30/18 09:52 1 amp ONCE ONE Administration Albuterol/Ipratropium 1 amp 03/30/18 09:51 03/30/18 10:10 Duoneb - NEB 03/30/18 09:52 1 amp ONCE ONE Administration Methylprednisolone Sodium Succinate 125 mg 03/30/18 09:51 03/30/18 10:10 Solu-Medrol - IVPUSH 03/30/18 09:52 125 mg ONCE ONE Administration Morphine Sulfate 4 mg 03/30/18 09:51 03/30/18 10:10 Morphine Injection - IVPUSH 03/30/18 09:52 4 mg ONCE ONE Administration <Zora Baeza - Last Filed: 03/30/18 10:17> - LABORATORY CBC & Chemistry Diagram: 03/30/18 09:35 03/30/18 09:31 <Nita Hatfield - Last Filed: 03/30/18 12:18> Medical Decision Making - Medical Decision Making 03/30/18 09:32 Noel 62 YOM with chronic pancreatitis, incarcerated hernia c/b ileus/SBO and laparotomy, chronic pancreatitis, H pylori, CAD s/p PCI x multiple stents, diastolic LV dysfunction, HTN, HLD, DM2, COPD/Asthma, GRACIE, chronic tracheostomy in place, CKD, chronic back pain/neuropathy presenting with progressively worsening intermittent fever and chills, productive beige cough and SOB/chest tightness.. DDx. pneumonia, viral syndrome, viral bronchitis, acute bronchitis, COPD/Asthma exac. Pleurisy, pericarditis/myocarditis. Dehydration, ACS, angina pectoris. CO2 retention, respiratory acidosis. Vital signs reviewed, notable for mild tachycardia in the 100s. Also has pain, possible fevers checking rectal temp. On supplemental O2 for comfort. Normal sats >99% on O2. Infection Plan: CBC, CMP, coags, VBG, blood cx, sputum cx, lactic acid, ECG, trop, CXR. antipyretics, analgesia, CAP coverage for presumed pneumonia with clinical sx (subjective fever and productive cough x 1 week), azithromycin/ ceftriaxone. Could also be viral Interventions: duonebs x3, solumedrol, cef/azithromycin, analgesia (on home opioids for chronic back pain and neuropathy). IVF. Prior notes reviewed, including admissions, discharges and consultations. Prior sputum cx in 09/2017 with Cornybacterium. laboratory results and imaging reviewed, basic labs and lytes wnl, baseline elevated Cr 1.5, chronic anemia w/ o acute changes/ VBG normal, no acidosis or CO2 retention. Sputum and blood cultures ordered and pending results. CXR no focal infiltrate or effusion. EKG sinus tachy, normal rhythm/intervals and no ST Segment derangements, nonspecific T wave abnormalities. Troponin negative, less likely ACS/angina. lactic acid elevated 2.7, given fluids and will recheck. also given duonebs which may elevate lactic acid. Dispo: Admit to telemetry for presumed bronchitis vs. pneumonia/asthma/COPD exacerbation. Discussed results and management plan with pt and family member at bedside, agree with impression and plan. Inpatient pulm consult Dr. Knox PMD/translational specialist. admit hospitalist. 03/30/18 12:18 <Nita Hatfield - Last Filed: 03/30/18 12:18> *DC/Admit/Observation/Transfer - Attestations Scribe Attestion: 03/30/18 10:38 Documentation prepared by Zora Baeza, acting as chief medical technologist for Nita Hatfield MD <Zora Baeza - Last Filed: 03/30/18 10:17> - Discharge Dispostion Decision to Admit order: Yes Decision to Admit order Date/Time: 03/30/18 12:18 Decision to Admit Order Category Date Time Status Decision to Admit to Hospital Routine Admission 03/30/18 11:58 Active - Attestations Physician Attestion: 03/30/18 12:18 I, Nita Hatfield MD, attest that this document has been prepared under my direction and personally reviewed by me in its entirety. I further attest, that it accurately reflects all work, treatment, procedures and medical decision -making performed by me. <Nita Hatfiled - Last Filed: 03/30/18 12:18> Diagnosis at time of Disposition: Asthma exacerbation in COPD, Bronchitis, Pneumonia - Discharge Dispostion Condition at time of disposition: Guarded - Referrals Referrals: Markus Amador MD [Primary Care Provider] - - Patient Instructions - Post Discharge Activity
[2018-03-30] MEDS ORDERED: methylPREDNISolone NA SUCC 125 MG/2 ML VIAL IVPUSH ONE (09:51)
[2018-03-30] MEDS ORDERED: ALBUTEROL SO4 2.5/IPRATROPIUM 0.5 INH SOL 3 ML VIAL.NEB. NEB ONE ×5 (09:51→14:46)
[2018-03-30] MEDS ORDERED: morphine CARPU-JECT 4 MG/1 ML DISP.SYRIN IVPUSH ONE (09:51)
[2018-03-30] MEDS ORDERED: methylPREDNISolone NA SUCC 125 MG/2 ML VIAL ONE (09:56)
[2018-03-30] MEDS ORDERED: morphine SULFATE 4 MG/ML VIAL ONE (10:02)
[2018-03-30 10:23] LABS: BASO % 0.7 % (0-2.0); EOS % 0.3 % (0-4.5); HEMATOCRIT 34.1 % (35.4-49); HEMOGLOBIN 10.9 GM/dL (11.7-16.9); LYMPH % 9.8 % (8-40); MCH 25.5 pg (25.7-33.7); MCHC 32.1 g/dl (32.0-35.9); MEAN CELL VOLUME 79.4 fl (80-96); MEAN PLT VOLUME 7.3 fl (7.5-11.1); MONO % 2.6 % (3.8-10.2); NEUT % 86.6 % (42.8-82.8); PLATELET COUNT 404 K/MM3 (134-434); RBC 4.29 M/mm3 (4.00-5.60); RDW 16.3 % (11.9-15.9); WHITE BLOOD COUNT 10.1 K/mm3 (4.0-10.0)
--- NOTE | 2018-03-30 10:28 | EKG ---
Test Reason : Blood Pressure : / mmHG Vent. Rate : 105 BPM Atrial Rate : 105 BPM P-R Int : 178 ms QRS Dur : 080 ms QT Int : 346 ms P-R-T Axes : 045 023 027 degrees QTc Int : 457 ms SINUS TACHYCARDIA OTHERWISE NORMAL ECG WHEN COMPARED WITH ECG OF 30-AUG-2017 09:02, PREMATURE ATRIAL COMPLEXES ARE NO LONGER PRESENT NONSPECIFIC T WAVE ABNORMALITY NO LONGER EVIDENT IN LATERAL LEADS Confirmed by GIOVANNI BULLARD, STEVEN ([id number]) on 03/30/2018 10:28:05 AM Referred By: Confirmed By:STEVEN DAVILA MD
[2018-03-30 10:31] LABS: INR 1.04 (0.83-1.09); PROTHROMBIN TIME (PATIENT) 11.7 SEC (9.7-13.0)
[2018-03-30] MEDS ORDERED: oxyCODONE HCL 5 MG TABLET PO ONE (10:55)
[2018-03-30 10:57] LABS: CHLORIDE 105 mmol/L (98-107); SODIUM 139 mmol/L (136-145)
[2018-03-30 11:01] LABS: VENOUS PC02 41.2 mmHg (38-52); VENOUS PH 7.34 (7.32-7.42)
[2018-03-30] MEDS ORDERED: oxyCODONE HCL 5 MG TABLET ONE (11:11)
[2018-03-30] MEDS ORDERED: AZITHROMYCIN 500 MG TABLET PO ONE (11:20)
[2018-03-30] MEDS ORDERED: CEFTRIAXONE 1,000 MG in DEXTROSE 5%-WATER - 50 ML IVPB ONE (11:20)
[2018-03-30 11:37] LABS: ALBUMIN 3.6 g/dl (3.4-5.0); ALK PHOS 207 U/L (45-117); ANION GAP 11 MMOL/L (8-16); BILIRUBIN,TOTAL 0.3 mg/dL (0.2-1); BLOOD UREA NITROGEN 30 mg/dL (7-18); CALCIUM 9.1 mg/dL (8.5-10.1); CO2 23 mmol/L (21-32); CREATININE 1.5 mg/dL (0.55-1.3); GLUCOSE,RANDOM 200 mg/dL (74-106); SGPT/ALT 48 U/L (13-61); TOT PROT 7.7 g/dl (6.4-8.2)
[2018-03-30 11:38] LABS: POTASSIUM 4.7 mmol/L (3.5-5.1); SGOT/AST 34 U/L (15-37)
[2018-03-30] MEDS ORDERED: SODIUM CHLORIDE 0.9% 500 ML INFUS.BAG IV ONE (11:57)
[2018-03-30] MEDS ORDERED: CEFTRIAXONE 1 GM/50 ML BAG ONE (12:02)
[2018-03-30] MEDS ORDERED: AZITHROMYCIN 250 MG TABLET ONE (12:02)
--- NOTE | 2018-03-30 12:14 | PN ---
Physical Exam: SUBJECTIVE: Patient seen and examined OBJECTIVE: Vital Signs Period Temp Pulse Resp BP Sys/Gates Pulse Ox Last 24 Hr 98.5 F-99.1 F 95-106 20-22 128-147/70-88 97-99 GENERAL: The patient is awake, alert, and fully oriented, in no acute distress. HEAD: Normal with no signs of trauma. EYES: PERRL, extraocular movements intact, sclera anicteric, conjunctiva clear. No ptosis. ENT: Ears normal, nares patent, oropharynx clear without exudates, moist mucous membranes. NECK: Trachea midline, full range of motion, supple. LUNGS: Breath sounds equal, clear to auscultation bilaterally, no wheezes, no crackles, no accessory muscle use. HEART: Regular rate and rhythm, S1, S2 without murmur, rub or gallop. ABDOMEN: Soft, nontender, nondistended, normoactive bowel sounds, no guarding, no rebound, no hepatosplenomegaly, no masses. EXTREMITIES: 2+ pulses, warm, well-perfused, no edema. NEUROLOGICAL: Cranial nerves II through XII grossly intact. Normal speech, gait not observed. PSYCH: Normal mood, normal affect. SKIN: Warm, dry, normal turgor, no rashes or lesions noted Laboratory Results - last 24 hr 03/30/18 03/30/18 03/30/18 09:31 09:31 09:31 WBC RBC Hgb Hct MCV MCH MCHC RDW Plt Count MPV Absolute Neuts (auto) Neutrophils % Lymphocytes % Monocytes % Eosinophils % Basophils % Nucleated RBC % PT with INR INR VBG pH POC VBG pCO2 POC VBG pO2 Mixed VBG HCO3 Sodium 139 Potassium 4.7 Chloride 105 Carbon Dioxide 23 Anion Gap 11 BUN 30 H Creatinine 1.5 H Creat Clearance w eGFR 47.12 Random Glucose 200 H Lactic Acid 2.7 H* Calcium 9.1 Total Bilirubin 0.3 AST 34 ALT 48 Alkaline Phosphatase 207 H Troponin I < 0.02 Total Protein 7.7 Albumin 3.6 03/30/18 03/30/18 03/30/18 09:35 09:39 09:39 WBC 10.1 H RBC 4.29 Hgb 10.9 L Hct 34.1 L MCV 79.4 L MCH 25.5 L MCHC 32.1 RDW 16.3 H Plt Count 404 MPV 7.3 L Absolute Neuts (auto) 8.8 H Neutrophils % 86.6 H D Lymphocytes % 9.8 D Monocytes % 2.6 L Eosinophils % 0.3 D Basophils % 0.7 Nucleated RBC % 0 PT with INR 11.70 INR 1.04 VBG pH 7.34 POC VBG pCO2 41.2 POC VBG pO2 134.0 H D Mixed VBG HCO3 21.9 Sodium Potassium Chloride Carbon Dioxide Anion Gap BUN Creatinine Creat Clearance w eGFR Random Glucose Lactic Acid Calcium Total Bilirubin AST ALT Alkaline Phosphatase Troponin I Total Protein Albumin ASSESSMENT/PLAN:
[2018-03-30] MEDS ORDERED: diazePAM 5 MG TABLET PO PRN (13:15)
--- NOTE | 2018-03-30 13:23 | CON.PULM ---
Consult Consult Specialty:: PULMONARY Referred by:: ALVA Francis Reason for Consultation:: shortness of breath - History of Present Illness Chief Complaint: shortness of breath History of Present Illness: 62yo male with h/o HTN, hyperlipidemia, CAD s/p CABG, asthma, chronic pancreatitis, chronic pain on opiates, h/o incarcerated hernia s/p repair, obstructive sleep apnea s/p tracheostomy who was admitted with shortness of breath, chest tightness, cough x 1 week. Reports chills especially at night. Cough productive of beige sputum and wheezing. Was wheezing to the point where he took prednisone 60mg this morning, no significant relief with nebulizer treatments at home. 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 Planned EMG/ NCVs studies and evaluation of motor weakness in process by treating neurologist Dr. Singh) Cardio/Vascular: Yes: CAD (Last stents placed x 2 last year per patient), CHF (s /p MN several years ago; s/p stenting. mild CHF in the past.), HTN, Hyperlipdemia, MN, Pulmonary Hypertension Pulmonary: Yes: Asthma, Sleep Apnea Gastrointestinal: Yes: Constipation, Pancreatitis (? history of chronic pancreatitis with episodes of acute pancreatitis), Other (FECAL INCONTINENCE SECONDARY TO OVERFLOW followed by Dr. Abdoulaye Wu, IPMN, PANCREATITIS . HAD EPISODE OF ISCHEMIC COLITIS LAST ADMISSION) Renal/: Yes: BPH Psych: Yes: Depression Musculoskeletal: Yes: Chronic low back pain, Other (CHRONIC NECK PAIN s/p Lumbar and Cervical fusion ) Endocrine: Yes: Diabetes Mellitus (has insulin pump) - Past Surgical History Past Surgical History: Yes: Breast Biopsy, Colonoscopy, Laminectomy, Stent (1 non eluting, 5 eluting) - Alcohol/Substance Use Hx Alcohol Use: No History of Substance Use: reports: None, Prescription (opiates for chronic pain post cervical spine surgery. 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 History of Recent Travel: No Home Medications - Allergies Allergies/Adverse Reactions: Allergies Allergy/AdvReac Type Severity Reaction Status Date / Time shellfish derived Allergy Severe Verified 08/18/17 13:42 Tetracyclines Allergy Severe Verified 08/18/17 13:42 - Home Medications Home Medications: Ambulatory Orders Albuterol Sulfate Inhaler - [Ventolin Hfa Inhaler -] 1 - 2 inh PO Q4H PRN Arformoterol Tartrate [Brovana] 15 mcg IH ASDIR 08/18/17 Aspirin [Aspirin EC] 81 mg PO DAILY 08/18/17 Budesonide/Formeterol Fumarate [SYMBICORT 160/4.5mcg -] 1 inh PO DAILY 08/18/17 Clopidogrel Bisulfate [Plavix] 75 mg PO DAILY 08/18/17 Dexlansoprazole [Dexilant] 30 mg PO DAILY 08/18/17 Diazepam [Valium] 5 mg PO PRN PRN 08/18/17 Ezetimibe [Zetia -] 10 mg PO DAILY 08/18/17 Furosemide [Lasix] 40 mg PO DAILY 08/18/17 Insulin Lispro [Humalog] 0 unit SQ PRN PRN 08/18/17 Insulin Pump Controller [Snap Insulin Pump Controller] 1 each ASDIR 08/18/17 Montelukast Sodium [Singulair] 10 mg PO DAILY 08/18/17 Ranitidine HCl 150 mg PO PRN PRN 08/18/17 Rosuvastatin Calcium [Crestor] 10 mg PO DAILY 08/18/17 Tiotropium [place] [Spiriva] 1 puff IH DAILY 08/18/17 Amino Acids/Protein Hydrolys [Prosource No Carb Liquid Pkt] 30 ml PO BID@0800, 1730 packet 09/20/17 Amlodipine Besylate [Norvasc -] 5 mg PO DAILY tablet 09/20/17 Finasteride [Proscar -] 5 mg PO DAILY tablet 09/20/17 Insulin Sliding Scale [Novolog Vial Sliding Scale -] 1 vial SQ ACHS units 09/20 Lipase/Protease/Amylase [Stacy Hackett 36,000 Units Capsule] 1 cap PO TIDCM capsule. 09/20/17 Montelukast Na [Singulair -] 10 mg PO HS tablet 09/20/17 Multivitamins [Multivit ([facility] Formulary)] 1 tab PO DAILY tab 09/20/17 Polyethylene Glycol 3350 [Miralax 119 gm Btl -] 17 gm PO BID bottle 09/20/17 Ramipril [Altace] 10 mg PO DAILY capsule 09/20/17 Tamsulosin HCl [Flomax -] 0.4 mg PO DAILY@0830 cap.er.24h 09/20/17 Amitriptyline HCl [Elavil -] 25 mg PO DAILY 03/30/18 Gabapentin 600 mg PO DAILY 03/30/18 HYDROmorphone [Dilaudid -] 4 mg PO Q8H 03/30/18 Mesalamine [Pentasa] 500 mg PO DAILY 03/30/18 Ondansetron [Zofran -] 4 mg PO BID 03/30/18 Oxycodone HCl/Acetaminophen [Oxycodon-Acetaminophen 7.5-325] 1 each PO DAILY Prednisone 10 mg PO DAILY 03/30/18 Tapentadol HCl [Nucynta ER] 200 mg PO DAILY 03/30/18 Family Disease History - Family Disease History Family Disease History: Diabetes: Mother ( 58: diabetic complications), CA: Father ( 49: asbestosis), Respiratory: Brother (bronchial asthma, DVT), Other: Mother, Sister (BCA), Son (2, healthy), Daughter (1, healthy) Review of Systems - Review of Systems Constitutional: reports: Chills, Weakness Eyes: denies: Recent Change in Vision HENT: denies: Nasal Congestion, Throat Pain Neck: denies: Stiffness, Tenderness Cardiovascular: reports: Chest Pain, Shortness of Breath. denies: Edema Respiratory: reports: Cough, SOB, SOB on Exertion, Wheezing. denies: Hemoptysis Gastrointestinal: denies: Abdominal Pain, Nausea, Vomiting Genitourinary: denies: Dysuria, Hematuria Neurological: denies: Dizziness, Headache Endocrine: denies: Unexplained Weight Loss Physical Exam Vital Sings: Vital Signs Temperature 99.1 F 03/30/18 10:11 Pulse Rate 96 H 03/30/18 10:40 Respiratory Rate 22 03/30/18 10:40 Blood Pressure 128/88 03/30/18 10:40 O2 Sat by Pulse Oximetry (%) 98 03/30/18 10:40 Constitutional: Yes: Anxious Eyes: Yes: Conjunctiva Clear, EOM Intact HENT: Yes: Atraumatic, Normocephalic Neck: Yes: Supple, Trachea Midline Cardiovascular: Yes: Regular Rate and Rhythm Respiratory: Yes: Diminished (distant breath sounds), Poor Air Entry ...Clubbing: No Gastrointestinal: Yes: Normal Bowel Sounds, Soft. No: Tenderness Edema: No Neurological: Yes: Alert, Oriented Labs: CBC, BMP 03/30/18 09:35 03/30/18 09:31 Imaging - Results Chest X-ray: Image Reviewed (cannot r/o retrocardiac infiltrate/atelectasis) Problem List - Problems (1) Asthma exacerbation Code(s): J45.901 - UNSPECIFIED ASTHMA WITH (ACUTE) EXACERBATION (2) Acute bronchitis Code(s): J20.9 - ACUTE BRONCHITIS, UNSPECIFIED (3) Chronic pain Code(s): G89.29 - OTHER CHRONIC PAIN Qualifiers: Chronic pain type: chronic pain syndrome Qualified Code(s): G89.4 - Chronic pain syndrome (4) Chronic pancreatitis Code(s): K86.1 - OTHER CHRONIC PANCREATITIS Qualifiers: Pancreatitis type: unspecified pancreatitis type Qualified Code(s): K86.1 - Other chronic pancreatitis (5) Coronary artery disease Code(s): I25.10 - ATHSCL HEART DISEASE OF [place] CORONARY ARTERY W/O ANG PCTRS (6) Diabetes mellitus Code(s): E11.9 - TYPE 2 DIABETES MELLITUS WITHOUT COMPLICATIONS Qualifiers: Diabetes mellitus type: type 2 Diabetes mellitus complication detail: with unspecified neuropathy (7) Hyperlipidemia Code(s): E78.5 - HYPERLIPIDEMIA, UNSPECIFIED (8) Hypertension Code(s): I10 - ESSENTIAL (PRIMARY) HYPERTENSION Qualifiers: Hypertension type: essential hypertension Qualified Code(s): I10 - Essential (primary) hypertension Assessment/Plan Acute Asthma Exacerbation Acute Bronchitis vs r/o Pneumonia Lactic Acidosis Obstructive Sleep Apnea s/p tracheostomy CAD s/p CABG HTN DM Hyperlipidemia Chronic Back Pain Opiate Dependence - IV medrol - inhaled bronchodilators standing and PRN - monitor peak flow - O2 to keep SpO2>90% - uncap tracheostomy when sleeping - glucose control while on systemic steroids - DVT prophylaxis Thank you for this consult Bola Morgan MD
[2018-03-30] MEDS ORDERED: HYDROmorphone HCL 2 MG TABLET ONE ×2 (13:44→18:49)
[2018-03-30] MEDS: ALBUTEROL SO4 2.5/IPRATROPIUM 0.5 INH SOL 3 ML VIAL.NEB. NEB SCH ×2 (14:22→19:30)
--- NOTE | 2018-03-30 15:20 | HP ---
Admitting History and Physical - Primary Care Physician PCP: Markus Knox - Admission Chief Complaint: dyspnea, increased coughing History Source: Patient Limitations to Obtaining History: No Limitations - Past Medical History [facility]: Yes: Peripheral Neuropathy (s/p extensive cervical spine surgery post injury with leg weakness and poor balance: patient much improved post extensive physical therapy and now walks with a walker), Other (chronic pain syndrome with mulit-level spine disease managed by PM and his spine surgeon. Planned EMG/ NCVs studies and evaluation of motor weakness in process by treating neurologist Dr. Singh) Cardiovascular: Yes: CAD (Last stents placed x 2 last year per patient), CHF (s/ p NH several years ago; s/p stenting. mild CHF in the past.), HTN, Hyperlipdemia , NH, Pulmonary Hypertension Pulmonary: Yes: Asthma, Sleep Apnea Gastrointestinal: Yes: Constipation, Pancreatitis (? history of chronic pancreatitis with episodes of acute pancreatitis), Other (FECAL INCONTINENCE SECONDARY TO OVERFLOW followed by Dr. Abdoulaye Wu, IPMN, PANCREATITIS . HAD EPISODE OF ISCHEMIC COLITIS LAST ADMISSION) Renal/: Yes: BPH Psych: Yes: Depression Musculoskeletal: Yes: Chronic low back pain (has back stimulator), Other ( CHRONIC NECK PAIN s/p Lumbar and Cervical fusion ) Endocrine: Yes: Diabetes Mellitus (has insulin pump) - Past Surgical History Past Surgical History: Yes: Breast Biopsy, Colonoscopy, Laminectomy, Stent (1 non eluting, 5 eluting) - Smoking History Smoking history: Never smoked Have you smoked in the past 12 months: No Aproximately how many cigarettes per day: 0 - Alcohol/Substance Use Hx Alcohol Use: No History of Substance Use: reports: None, Prescription (opiates for chronic pain post cervical spine surgery. 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 History of Recent Travel: No Home Medications - Allergies Allergies/Adverse Reactions: Allergies Allergy/AdvReac Type Severity Reaction Status Date / Time shellfish derived Allergy Severe Verified 08/18/17 13:42 Tetracyclines Allergy Severe Verified 08/18/17 13:42 - Home Medications Home Medications: Ambulatory Orders Albuterol Sulfate Inhaler - [Ventolin Hfa Inhaler -] 1 - 2 inh PO Q4H PRN Arformoterol Tartrate [Brovana] 15 mcg IH ASDIR 08/18/17 Aspirin [Aspirin EC] 81 mg PO DAILY 08/18/17 Budesonide/Formeterol Fumarate [SYMBICORT 160/4.5mcg -] 1 inh PO DAILY 08/18/17 Clopidogrel Bisulfate [Plavix] 75 mg PO DAILY 08/18/17 Dexlansoprazole [Dexilant] 30 mg PO DAILY 08/18/17 Diazepam [Valium] 5 mg PO PRN PRN 08/18/17 Ezetimibe [Zetia -] 10 mg PO DAILY 08/18/17 Furosemide [Lasix] 40 mg PO DAILY 08/18/17 Insulin Lispro [Humalog] 0 unit SQ PRN PRN 08/18/17 Insulin Pump Controller [Snap Insulin Pump Controller] 1 each ASDIR 08/18/17 Montelukast Sodium [Singulair] 10 mg PO DAILY 08/18/17 Ranitidine HCl 150 mg PO PRN PRN 08/18/17 Rosuvastatin Calcium [Crestor] 10 mg PO DAILY 08/18/17 Tiotropium Hana [Spiriva] 1 puff IH DAILY 08/18/17 Amino Acids/Protein Hydrolys [Prosource No Carb Liquid Pkt] 30 ml PO BID@0800, 1730 packet 09/20/17 Amlodipine Besylate [Norvasc -] 5 mg PO DAILY tablet 09/20/17 Finasteride [Proscar -] 5 mg PO DAILY tablet 09/20/17 Insulin Sliding Scale [Novolog Vial Sliding Scale -] 1 vial SQ ACHS units 09/20 Lipase/Protease/Amylase [Stacy Hackett 36,000 Units Capsule] 1 cap PO TIDCM capsule. 09/20/17 Montelukast Na [Singulair -] 10 mg PO HS tablet 09/20/17 Multivitamins [Multivit ([facility] Formulary)] 1 tab PO DAILY tab 09/20/17 Polyethylene Glycol 3350 [Miralax 119 gm Btl -] 17 gm PO BID bottle 09/20/17 Ramipril [Altace] 10 mg PO DAILY capsule 09/20/17 Tamsulosin HCl [Flomax -] 0.4 mg PO DAILY@0830 cap.er.24h 09/20/17 Amitriptyline HCl [Elavil -] 25 mg PO DAILY 03/30/18 Gabapentin 600 mg PO DAILY 03/30/18 HYDROmorphone [Dilaudid -] 4 mg PO Q8H 03/30/18 Mesalamine [Pentasa] 500 mg PO DAILY 03/30/18 Ondansetron [Zofran -] 4 mg PO BID 03/30/18 Oxycodone HCl/Acetaminophen [Oxycodon-Acetaminophen 7.5-325] 1 each PO DAILY Prednisone 10 mg PO DAILY 03/30/18 Tapentadol HCl [Nucynta ER] 200 mg PO DAILY 03/30/18 Family Disease History - Family Disease History Family Disease History: Diabetes: Mother ( 58: diabetic complications), CA: Father ( 49: asbestosis), Respiratory: Brother (bronchial asthma, DVT), Other: Mother, Sister (BCA), Son (2, healthy), Daughter (1, healthy) Physical Examination Vital Signs: Vital Signs Temperature 99.1 F 03/30/18 10:11 Pulse Rate 103 H 03/30/18 11:15 Respiratory Rate 22 03/30/18 11:15 Blood Pressure 129/76 03/30/18 11:15 O2 Sat by Pulse Oximetry (%) 97 03/30/18 13:48 Constitutional: Yes: Well Nourished Eyes: Yes: WNL HENT: Yes: WNL Neck: Yes: WNL Cardiovascular: Yes: WNL Respiratory: Yes: Accessory Muscle Use, Cough, On Nasal O2, SOB on Exertion, Tachypnea, Wheezes, Other (TRACH) Gastrointestinal: Yes: Normal Bowel Sounds, Abdomen, Obese ...Rectal Exam: Yes: Other Labs: CBC, BMP 03/30/18 09:35 03/30/18 09:31 Assessment/Plan Patient is a 62 year old male with a significant past medical history of hypertension, hyperlipidemia, CAD s/p NH s/p stents x 6 s/p CABG, chronic pancreatitis, chronic back pain (back stimulator), SBO, incarcerated hernia s/p repair x2 (September 2017), H.Pylori, BPH, COPD, tracheostomy in place (unplugs when sleeping for sleep apnea), diabetes mellitus with insulin pump. Patient comes to the ED with c/o of one week of intermittent fevers and chills, productive cough, generalized weakness, shortness of breath, and chest tightness. Patient endorses a productive cough with yellow sputum. He has been having chest pain when he coughs that radiates to his back. He is getting no relief of shortness of breath, with nebulizers which prompted and ED visit. Imaging: chest xray: increased left basilar haziness likely sub. atelectasis, early infiltrate cannot be excluded. Pulmonary: Shortness of breath/Acute COPD.asthma exacerbation, rule out pneumonia. Increased shortness of breath, cough. Will flu swab. Continue inhaled bronchodilaters prn. Started on broncodilators, Azithromycin, Ceftriaxone per pulm. Monitor oxygen levels to maintain oxygen sats of 92% or better. Uncap trach for sleep. On Solumedrol q6 iv. Sleep Apnea with chronic tracheostomy, uncaps trach collar during sleep for sleep apnea. Lactic Acidosis, repeat q 4. but can be secondary to albuterol. Card: Hypertension: on altace, norvasc. Hyperlipidemia: On crestor CAD s/p NH with stents x 6 s/p CABG (1 non eluding stent, 5 eluting coronary artery stents). On crestor, ramipril, Plavix, aspirin. Muscular/Skeletal: Chronic Back Pain: dilaudid 4mg po prn, has back stimulator. Follows neurologist outpatient. GI: chronic pancreatitis, history, monitor labs. Incarcerated hernia with repair, history, follows GI outpatient. Endocrine: Diabetes Mellitus with insulin pump. Pump empty, will start on Novolog and Levemir BID. Monitor BGMs and adjust levemir accordingly. fen encourage PO intake monitor electrolytes diabetic diet prophy heparin tid protonix full code Visit type - Emergency Visit Emergency Visit: Yes ED Registration Date: 03/30/18 Care time: The patient presented to the Emergency Department on the above date and was hospitalized for further evaluation of their emergent condition. - New Patient This patient is new to me today: Yes Date on this admission: 03/30/18 - Critical Care Critical Care patient: No Hospitalist Screening - Colonoscopy Questionnaire Colonoscopy Questionnaire: Colonoscopy Questionnaire - Patient: 50 - 75 years old and never had a screening colonoscopy: Unknown History of colon or rectal polyps, or CA: Unknown History of IBD, Crohn's disease or UC: Unknown History of abdominal radiation therapy as a child: Unknown - Relative: 1 with colon or rectal CA, or polyps at age 60 or younger: Unknown Colon or rectal CA diagnosed at age 45 or younger: Unknown Multiple relatives with colon or rectal CA: Unknown - Outcome: Screening Result: Negative Screen
[2018-03-30] MEDS ORDERED: INSULIN SLIDING SCALE (NOVOLOG) 1 VIAL SQ SCH (16:30)
[2018-03-30] MEDS: SODIUM CHLORIDE 1,000 ML IV SCH (17:07)
[2018-03-30] MEDS ORDERED: INSULIN (NOVOLOG) ASPART 100 UNITS/ML 10ML VIAL ONE (18:47)
[2018-03-30] MEDS: INSULIN SLIDING SCALE (NOVOLOG) 1 VIAL SQ SCH ×2 (18:50→23:18)
[2018-03-30] MEDS ORDERED: methylPREDNISolone NA SUCC 40 MG/1 ML VIAL ONE (19:28)
[2018-03-30] MEDS: methylPREDNISolone NA SUCC 40 MG/1 ML VIAL IVPUSH SCH (19:30)
[2018-03-30] MEDS ORDERED: INSULIN (LEVEMIR) 100 UNITS/ML UNITS SQ SCH ×2 (22:00)
[2018-03-30] MEDS: MONTELUKAST NA 10 MG TABLET PO SCH (23:18)
[2018-03-30] MEDS: INSULIN (LEVEMIR) 100 UNITS/ML UNITS SQ SCH (23:19)
[2018-03-30] MEDS: diazePAM 5 MG TABLET PO PRN (23:19)
[2018-03-30] MEDS: HEPARIN NA (PORCINE) 5,000 UNITS/ML 1ML VIAL SQ SCH (23:20)
[2018-03-30] MEDS: GABAPENTIN 300 MG CAPSULE (FP) PO SCH (23:20)
[2018-03-30] MEDS: RANITIDINE HCL 150 MG TABLET (FP) PO SCH (23:20)
[2018-03-30] MEDS: ROSUVASTATIN CA 10 MG TABLET (FP) PO SCH (23:20)
[2018-03-30] MEDS: AMITRIPTYLINE HCL 25 MG TABLET (FP) PO SCH (23:49)
[2018-03-30] MEDS: POLYETHYLENE GLYCOL 3350 119 GM BTL PO SCH (23:54)
[2018-03-31] MEDS ORDERED: SODIUM CHLORIDE 500 ML IV STA ×2 (00:55→09:16)
[2018-03-31] MEDS: methylPREDNISolone NA SUCC 40 MG/1 ML VIAL IVPUSH SCH ×3 (01:36→17:37)
[2018-03-31] MEDS: ALBUTEROL SO4 2.5/IPRATROPIUM 0.5 INH SOL 3 ML VIAL.NEB. NEB SCH ×5 (06:18→20:52)
[2018-03-31] MEDS: INSULIN (LEVEMIR) 100 UNITS/ML UNITS SQ SCH ×2 (07:07→21:29)
[2018-03-31] MEDS: INSULIN SLIDING SCALE (NOVOLOG) 1 VIAL SQ SCH ×6 (07:08→23:45)
[2018-03-31 07:22] LABS: BASO % 0.1 % (0-2.0); HEMATOCRIT 30.1 % (35.4-49); HEMOGLOBIN 9.9 GM/dL (11.7-16.9); LYMPH % 13.8 % (8-40); MCH 25.7 pg (25.7-33.7); MCHC 32.9 g/dl (32.0-35.9); MEAN PLT VOLUME 7.2 fl (7.5-11.1); NEUT % 83.1 % (42.8-82.8); PLATELET COUNT 348 K/MM3 (134-434); RBC 3.86 M/mm3 (4.00-5.60); RDW 16.2 % (11.9-15.9); WHITE BLOOD COUNT 14.5 K/mm3 (4.0-10.0)
[2018-03-31 07:36] LABS: ALBUMIN 3.2 g/dl (3.4-5.0); ANION GAP 9 MMOL/L (8-16); BILIRUBIN,TOTAL 0.3 mg/dL (0.2-1); BLOOD UREA NITROGEN 44 mg/dL (7-18); CALCIUM 8.5 mg/dL (8.5-10.1); CHLORIDE 107 mmol/L (98-107); CO2 22 mmol/L (21-32); CREATININE 1.7 mg/dL (0.55-1.3); MAGNESIUM 2.6 mg/dL (1.8-2.4); POTASSIUM 4.7 mmol/L (3.5-5.1); SGOT/AST 20 U/L (15-37); SGPT/ALT 38 U/L (13-61); SODIUM 138 mmol/L (136-145)
[2018-03-31 07:37] LABS: ALK PHOS 182 U/L (45-117)
[2018-03-31] MEDS ORDERED: PT OWN MED DRAWER 7, Y5N ONE ×3 (08:06→15:07)
[2018-03-31] MEDS: TAMSULOSIN HCL 0.4 MG CAP PO SCH (08:08)
[2018-03-31] MEDS: AMINO ACIDS/PROTEIN HYDROLYS 30 ML LIQUID.PKT PO SCH ×2 (08:13→17:55)
[2018-03-31 08:24] LABS: GLUCOSE,RANDOM 329 mg/dL (74-106)
--- NOTE | 2018-03-31 09:16 | PN ---
Physical Exam: SUBJECTIVE: Patient seen and examined at the bedside. denies chest pain or shortness of breath. OBJECTIVE: Vital Signs Period Temp Pulse Resp BP Sys/Gates Pulse Ox Last 24 Hr 98.3 F-99.1 F 89-105 18-22 123-148/70-88 97-100 Constitutional: Yes: Well Nourished Eyes: Yes: WNL HENT: Yes: WNL Neck: Yes: WNL Cardiovascular: Yes: WNL Respiratory: Yes: Accessory Muscle Use, Cough, On Nasal O2, SOB on Exertion, Tachypnea, Wheezes, Other (TRACH) Gastrointestinal: Yes: Normal Bowel Sounds, Abdomen, Obese Laboratory Results - last 24 hr 03/30/18 03/30/18 03/30/18 09:31 09:31 09:31 WBC RBC Hgb Hct MCV MCH MCHC RDW Plt Count MPV Absolute Neuts (auto) Neutrophils % Lymphocytes % Monocytes % Eosinophils % Basophils % Nucleated RBC % PT with INR INR VBG pH POC VBG pCO2 POC VBG pO2 Mixed VBG HCO3 Sodium 139 Potassium 4.7 Chloride 105 Carbon Dioxide 23 Anion Gap 11 BUN 30 H Creatinine 1.5 H Creat Clearance w eGFR 47.12 POC Glucometer Random Glucose 200 H Hemoglobin A1c % Lactic Acid 2.7 H* Calcium 9.1 Magnesium Total Bilirubin 0.3 AST 34 ALT 48 Alkaline Phosphatase 207 H Troponin I < 0.02 Total Protein 7.7 Albumin 3.6 03/30/18 03/30/18 03/30/18 09:35 09:39 09:39 WBC 10.1 H RBC 4.29 Hgb 10.9 L Hct 34.1 L MCV 79.4 L MCH 25.5 L MCHC 32.1 RDW 16.3 H Plt Count 404 MPV 7.3 L Absolute Neuts (auto) 8.8 H Neutrophils % 86.6 H D Lymphocytes % 9.8 D Monocytes % 2.6 L Eosinophils % 0.3 D Basophils % 0.7 Nucleated RBC % 0 PT with INR 11.70 INR 1.04 VBG pH 7.34 POC VBG pCO2 41.2 POC VBG pO2 134.0 H D Mixed VBG HCO3 21.9 Sodium Potassium Chloride Carbon Dioxide Anion Gap BUN Creatinine Creat Clearance w eGFR POC Glucometer Random Glucose Hemoglobin A1c % Lactic Acid Calcium Magnesium Total Bilirubin AST ALT Alkaline Phosphatase Troponin I Total Protein Albumin 03/30/18 03/30/18 03/30/18 15:45 15:45 18:26 WBC RBC Hgb Hct MCV MCH MCHC RDW Plt Count MPV Absolute Neuts (auto) Neutrophils % Lymphocytes % Monocytes % Eosinophils % Basophils % Nucleated RBC % PT with INR INR VBG pH POC VBG pCO2 POC VBG pO2 Mixed VBG HCO3 Sodium Potassium Chloride Carbon Dioxide Anion Gap BUN Creatinine Creat Clearance w eGFR POC Glucometer > 400 Random Glucose Hemoglobin A1c % Lactic Acid 6.5 H* Calcium Magnesium Total Bilirubin AST ALT Alkaline Phosphatase Troponin I < 0.02 Total Protein Albumin 03/30/18 03/30/18 03/30/18 19:46 22:33 23:48 WBC RBC Hgb Hct MCV MCH MCHC RDW Plt Count MPV Absolute Neuts (auto) Neutrophils % Lymphocytes % Monocytes % Eosinophils % Basophils % Nucleated RBC % PT with INR INR VBG pH POC VBG pCO2 POC VBG pO2 Mixed VBG HCO3 Sodium Potassium Chloride Carbon Dioxide Anion Gap BUN Creatinine Creat Clearance w eGFR POC Glucometer > 400 484 Random Glucose Hemoglobin A1c % Lactic Acid Calcium Magnesium Total Bilirubin AST ALT Alkaline Phosphatase Troponin I < 0.02 Total Protein Albumin 03/30/18 03/30/18 03/31/18 23:48 23:48 03:25 WBC RBC Hgb Hct MCV MCH MCHC RDW Plt Count MPV Absolute Neuts (auto) Neutrophils % Lymphocytes % Monocytes % Eosinophils % Basophils % Nucleated RBC % PT with INR INR VBG pH POC VBG pCO2 POC VBG pO2 Mixed VBG HCO3 Sodium Potassium Chloride Carbon Dioxide Anion Gap BUN Creatinine Creat Clearance w eGFR POC Glucometer Random Glucose 468 H* Hemoglobin A1c % Lactic Acid 6.4 H* 3.7 H* Calcium Magnesium Total Bilirubin AST ALT Alkaline Phosphatase Troponin I Total Protein Albumin 03/31/18 03/31/18 03/31/18 05:30 05:30 05:30 WBC 14.5 H RBC 3.86 L Hgb 9.9 L Hct 30.1 L MCV 78.0 L MCH 25.7 MCHC 32.9 RDW 16.2 H Plt Count 348 MPV 7.2 L Absolute Neuts (auto) 12.1 H Neutrophils % 83.1 H Lymphocytes % 13.8 D Monocytes % 3.0 L Eosinophils % 0.0 D Basophils % 0.1 Nucleated RBC % 0 PT with INR INR VBG pH POC VBG pCO2 POC VBG pO2 Mixed VBG HCO3 Sodium 138 Potassium 4.7 Chloride 107 Carbon Dioxide 22 Anion Gap 9 BUN 44 H Creatinine 1.7 H Creat Clearance w eGFR 40.78 POC Glucometer Random Glucose 329 H* Hemoglobin A1c % 7.0 H Lactic Acid Calcium 8.5 Magnesium 2.6 H Total Bilirubin 0.3 AST 20 ALT 38 Alkaline Phosphatase 182 H Troponin I Total Protein 7.0 Albumin 3.2 L 03/31/18 03/31/18 06:43 07:55 WBC RBC Hgb Hct MCV MCH MCHC RDW Plt Count MPV Absolute Neuts (auto) Neutrophils % Lymphocytes % Monocytes % Eosinophils % Basophils % Nucleated RBC % PT with INR INR VBG pH POC VBG pCO2 POC VBG pO2 Mixed VBG HCO3 Sodium Potassium Chloride Carbon Dioxide Anion Gap BUN Creatinine Creat Clearance w eGFR POC Glucometer 342 Random Glucose Hemoglobin A1c % Lactic Acid 3.9 H* Calcium Magnesium Total Bilirubin AST ALT Alkaline Phosphatase Troponin I Total Protein Albumin Active Medications Generic Name Dose Route Start Last Admin Trade Name Freq PRN Reason Stop Dose Admin Albuterol/Ipratropium 1 amp 03/30/18 13:30 03/31/18 06:18 Duoneb - NEB 1 amp QIDR MARK Administration Amino Acids 30 ml 03/30/18 17:30 03/31/18 08:13 Prosource No Carb Liquid Pkt PO 30 ml BID@0800,1730 MARK Administration Amitriptyline HCl 25 mg 03/31/18 10:00 03/30/18 23:49 Elavil - PO 25 mg DAILY MARK Administration Amlodipine Besylate 5 mg 03/31/18 10:00 Norvasc - PO DAILY [facility] Aspirin 81 mg 03/31/18 10:00 Ecotrin - PO DAILY [facility] Budesonide/Formoterol Fumarate 1 puff 03/31/18 10:00 Symbicort 160/4.5mcg - IH DAILY [facility] Clopidogrel Bisulfate 75 mg 03/31/18 10:00 Plavix - PO DAILY [facility] Diazepam 5 mg 03/30/18 15:27 03/30/18 23:19 Valium - PO 5 mg Q12H PRN Administration back spasms Ezetimibe 10 mg 03/31/18 10:00 Zetia - PO DAILY [facility] Finasteride 5 mg 03/31/18 10:00 Proscar - PO DAILY [facility] Gabapentin 300 mg 03/30/18 22:00 03/30/18 23:20 Neurontin - PO 300 mg BID MARK Administration Heparin Sodium (Porcine) 5,000 unit 03/30/18 22:00 03/30/18 23:20 Heparin - SQ 5,000 unit BID MARK Administration Hydromorphone HCl 4 mg 03/30/18 22:29 03/31/18 08:08 Dilaudid - PO 4 mg Q4H PRN Administration PAIN LEVEL 7 - 10 Ceftriaxone Sodium 500 mg/ 50 mls @ 100 mls/hr 03/31/18 10:00 Dextrose IVPB DAILY MARK Azithromycin 500 mg/ Dextrose 250 mls @ 250 mls/hr 03/31/18 10:00 IVPB 04/04/18 10:59 DAILY MARK Sodium Chloride 1,000 mls @ 100 mls/hr 03/30/18 17:00 03/30/18 17:07 Normal Saline - IV 100 mls/hr ASDIR MARK Administration Influenza Virus Vaccine Quadrival 60 mcg 03/31/18 10:00 Flulaval Quad [id number] IM 03/31/18 10:01 .ONCE ONE Insulin Aspart 1 vial 03/31/18 08:15 Novolog Vial Sliding Scale - SQ ACHS [facility] Protocol Insulin Detemir 30 units 03/31/18 22:00 Levemir Vial SQ BID@0700,2200 [facility] Methylprednisolone Sodium Succinate 60 mg 03/30/18 18:00 03/31/18 01:36 Solu-Medrol - IVPUSH 60 mg Q8H-IV MARK Administration Montelukast Sodium 10 mg 03/30/18 22:00 03/30/18 23:18 Singulair - PO 10 mg HS [facility] Administration Non-Formulary Medication 500 mg 03/31/18 10:00 Mesalamine [Pentasa] PO DAILY [facility] Pancrelipase 1 cap 03/30/18 17:30 Stacy Hackett 36,000 Units Capsule PO TIDCM [facility] Polyethylene Glycol 17 gm 03/30/18 22:00 03/30/18 23:54 Miralax (For Daily Use) - PO 17 gm BID MARK Administration Ramipril 10 mg 03/31/18 10:00 Altace - PO DAILY [facility] Ranitidine HCl 150 mg 03/30/18 22:00 03/30/18 23:20 Zantac - PO 150 mg BID [facility] Administration Rosuvastatin Calcium 10 mg 03/30/18 22:00 03/30/18 23:20 Crestor - PO 10 mg HS MARK Administration Tamsulosin HCl 0.4 mg 03/31/18 08:30 03/31/18 08:08 Flomax - PO 0.4 mg DAILY@0830 MARK Administration ASSESSMENT/PLAN: Patient is a 62 year old male with a significant past medical history of hypertension, hyperlipidemia, CAD s/p [place] s/p stents x 6 s/p CABG, chronic pancreatitis, chronic back pain (back stimulator), SBO, incarcerated hernia s/p repair x2 (September 2017), H.Pylori, BPH, COPD, tracheostomy in place (unplugs when sleeping for sleep apnea), diabetes mellitus with insulin pump (currently off). Patient comes to the ED with c/o of one week of intermittent fevers and chills, productive cough, generalized weakness, shortness of breath, and chest tightness. Patient endorses a productive cough with yellow sputum. He has been having chest pain when he coughs that radiates to his back. He is getting no relief of shortness of breath, with nebulizers which prompted and ED visit. Imaging: chest xray: increased left basilar haziness likely sub. atelectasis, early infiltrate cannot be excluded. Pulmonary: Shortness of breath/Acute COPD.asthma exacerbation, rule out pneumonia. Increased shortness of breath, cough. Negative for flu. Continue inhaled bronchodilaters prn. Started on broncodilators, Azithromycin, Ceftriaxone per pulm. Monitor oxygen levels to maintain oxygen sats of 92% or better. Uncap trach for sleep. On Solumedrol q6 iv. Sleep Apnea with chronic tracheostomy, uncaps trach collar during sleep for sleep apnea. Lactic Acidosis, @ 3.9, repeat lactic acid this afternoon. Card: Hypertension: on altace, norvasc. Hyperlipidemia: On crestor CAD s/p [place] with stents x 6 s/p CABG (1 non eluding stent, 5 eluting coronary artery stents). On crestor, ramipril, Plavix, aspirin. Muscular/Skeletal: Chronic Back Pain: dilaudid 4mg po prn, has back stimulator. Follows neurologist outpatient. GI: chronic pancreatitis, history, monitor labs. Incarcerated hernia with repair, history, follows GI outpatient. Endocrine: Diabetes Mellitus with insulin pump. Elevated BGMs. Pump empty, will start on Novolog and Levemir BID. Monitor BGMs and adjust levemir accordingly. fen encourage PO intake monitor electrolytes diabetic diet prophy heparin tid protonix full code Visit type - Emergency Visit Emergency Visit: Yes ED Registration Date: 03/30/18 Care time: The patient presented to the Emergency Department on the above date and was hospitalized for further evaluation of their emergent condition. - New Patient This patient is new to me today: No - Critical Care Critical Care patient: No - Discharge Referral Referred to [facility] Med [facility] No
[2018-03-31] MEDS ORDERED: morphine CARPU-JECT 2 MG/1 ML DISP.SYRIN SQ PRN (09:19)
[2018-03-31] MEDS ORDERED: PATIENT'S OWN MEDICATION (NON-FORMULARY) (Mesalamine [Pentasa] 500 MG) PO SCH (10:00)
[2018-03-31] MEDS ORDERED: FLU VACCINE QUAD 60 MCG/0.5 ML (MDV 18-19) IM ONE (10:00)
[2018-03-31] MEDS ORDERED: PATIENT'S OWN MEDICATION (NON-FORMULARY) (Gabapentin [Gabapentin] 600 MG) PO SCH (10:00)
[2018-03-31] MEDS ORDERED: MONTELUKAST NA 10 MG TABLET PO SCH (10:00)
[2018-03-31] MEDS ORDERED: FUROSEMIDE 40 MG TABLET (FP) PO SCH (10:00)
[2018-03-31] MEDS: FINASTERIDE 5 MG TABLET (FP) PO SCH (10:17)
[2018-03-31] MEDS: RAMIPRIL 5 MG CAPSULE (FP) PO SCH (10:17)
[2018-03-31] MEDS: AMITRIPTYLINE HCL 25 MG TABLET (FP) PO SCH (10:17)
[2018-03-31] MEDS: ASPIRIN COATED 81 MG TABLET.EC PO SCH (10:17)
[2018-03-31] MEDS: CLOPIDOGREL BISULFATE 75 MG TABLET (FP) PO SCH (10:17)
[2018-03-31] MEDS: GABAPENTIN 300 MG CAPSULE (FP) PO SCH ×2 (10:17→21:22)
[2018-03-31] MEDS: RANITIDINE HCL 150 MG TABLET (FP) PO SCH ×2 (10:18→21:22)
[2018-03-31] MEDS: LIPASE/PROTEASE/AMYLASE 36,000 UNIT CAPSULE PO SCH ×4 (10:18→17:57)
[2018-03-31] MEDS: amLODIPine BESYLATE 5 MG TABLET (FP) PO SCH (10:18)
[2018-03-31] MEDS: HEPARIN NA (PORCINE) 5,000 UNITS/ML 1ML VIAL SQ SCH ×2 (10:19→21:29)
[2018-03-31] MEDS: POLYETHYLENE GLYCOL 3350 119 GM BTL PO SCH ×2 (10:19→21:24)
[2018-03-31] MEDS: EZETIMIBE 10 MG TABLET (FP) PO SCH (10:20)
--- NOTE | 2018-03-31 12:01 | CON.CARD ---
Consult Consult Specialty:: cardiology Reason for Consultation:: hx CAD/CABG; now with fever - History of Present Illness History of Present Illness: The patient is a 62 year old black male with significant history of CAD, PR--> CABG; s/p coronary stents x 6 (most recently 12/2015),hypertension, hyperlipidemia, chronic pancreatitis, chronic back pain (takes oxycodone), SBO, incarcerated hernia s/p repair x2 (September 2017), H.Pylori, BPH, COPD, bronchial asthma,, tracheostomy in place (unplugs when sleeping for sleep apnea), anxiety , who presents to the ED complaining of one week of intermittent fevers and chills, productive cough, generalized weakness, shortness of breath, and chest tightness. The patient states he feels sweaty one minute and cold the next. He states his cough is productive of beige sputum. He states he has been having chest tightness that radiates to his back which is exacerbated by his cough. He denies blood in his sputum. He denies radiation of chest pain. The patient states he has been using his nebulizers at home every 4 hours with little to no resolve of symptoms. He states he is concerned for pneumonia at this time. He denies any mucus, sputum, or blood from his trach tube. He states he cleans the tube regularly. No travel or sick contacts. Secondarily, he states he has chronic abdominal pain and is scheduled for endoscopy to evaluate his benign pancreatic tumors. 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 Planned EMG/ NCVs studies and evaluation of motor weakness in process by treating neurologist Dr. Singh) Cardio/Vascular: Yes: CAD (Last stents placed x 2 last year per patient), CHF (s /p PR several years ago; s/p stenting. mild CHF in the past.), HTN, Hyperlipdemia, PR, Pulmonary Hypertension Pulmonary: Yes: Asthma, Sleep Apnea Gastrointestinal: Yes: Constipation, Pancreatitis (? history of chronic pancreatitis with episodes of acute pancreatitis), Other (FECAL INCONTINENCE SECONDARY TO OVERFLOW followed by Dr. Abdoulaye Wu, IPMN, PANCREATITIS . HAD EPISODE OF ISCHEMIC COLITIS LAST ADMISSION) Renal/: Yes: BPH Psych: Yes: Depression Musculoskeletal: Yes: Chronic low back pain (has back stimulator), Other ( CHRONIC NECK PAIN s/p Lumbar and Cervical fusion ) Endocrine: Yes: Diabetes Mellitus (has insulin pump) - Past Surgical History Past Surgical History: Yes: Breast Biopsy, Colonoscopy, Laminectomy, Stent (1 non eluting, 5 eluting) - Alcohol/Substance Use Hx Alcohol Use: No History of Substance Use: reports: None, Prescription (opiates for chronic pain post cervical spine surgery. 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 History of Recent Travel: No Home Medications - Allergies Allergies/Adverse Reactions: Allergies Allergy/AdvReac Type Severity Reaction Status Date / Time shellfish derived Allergy Severe Verified 08/18/17 13:42 Tetracyclines Allergy Severe Verified 08/18/17 13:42 - Home Medications Home Medications: Ambulatory Orders Albuterol Sulfate Inhaler - [Ventolin Hfa Inhaler -] 1 - 2 inh PO Q4H PRN Arformoterol Tartrate [Brovana] 15 mcg IH ASDIR 08/18/17 Aspirin [Aspirin EC] 81 mg PO DAILY 08/18/17 Budesonide/Formeterol Fumarate [SYMBICORT 160/4.5mcg -] 1 inh PO DAILY 08/18/17 Clopidogrel Bisulfate [Plavix] 75 mg PO DAILY 08/18/17 Dexlansoprazole [Dexilant] 30 mg PO DAILY 08/18/17 Diazepam [Valium] 5 mg PO PRN PRN 08/18/17 Ezetimibe [Zetia -] 10 mg PO DAILY 08/18/17 Furosemide [Lasix] 40 mg PO DAILY 08/18/17 Insulin Lispro [Humalog] 0 unit SQ PRN PRN 08/18/17 Insulin Pump Controller [Snap Insulin Pump Controller] 1 each ASDIR 08/18/17 Montelukast Sodium [Singulair] 10 mg PO DAILY 08/18/17 Ranitidine HCl 150 mg PO PRN PRN 08/18/17 Rosuvastatin Calcium [Crestor] 10 mg PO DAILY 08/18/17 Tiotropium [place] [Spiriva] 1 puff IH DAILY 08/18/17 Amino Acids/Protein Hydrolys [Prosource No Carb Liquid Pkt] 30 ml PO BID@0800, 1730 packet 09/20/17 Amlodipine Besylate [Norvasc -] 5 mg PO DAILY tablet 09/20/17 Finasteride [Proscar -] 5 mg PO DAILY tablet 09/20/17 Insulin Sliding Scale [Novolog Vial Sliding Scale -] 1 vial SQ ACHS units 09/20 Lipase/Protease/Amylase [Stacy Hackett 36,000 Units Capsule] 1 cap PO TIDCM capsule. 09/20/17 Montelukast Na [Singulair -] 10 mg PO HS tablet 09/20/17 Multivitamins [Multivit ([facility] Formulary)] 1 tab PO DAILY tab 09/20/17 Polyethylene Glycol 3350 [Miralax 119 gm Btl -] 17 gm PO BID bottle 09/20/17 Ramipril [Altace] 10 mg PO DAILY capsule 09/20/17 Tamsulosin HCl [Flomax -] 0.4 mg PO DAILY@0830 cap.er.24h 09/20/17 Amitriptyline HCl [Elavil -] 25 mg PO DAILY 03/30/18 Gabapentin 600 mg PO DAILY 03/30/18 HYDROmorphone [Dilaudid -] 4 mg PO Q8H 03/30/18 Mesalamine [Pentasa] 500 mg PO DAILY 03/30/18 Ondansetron [Zofran -] 4 mg PO BID 03/30/18 Oxycodone HCl/Acetaminophen [Oxycodon-Acetaminophen 7.5-325] 1 each PO DAILY Prednisone 10 mg PO DAILY 03/30/18 Tapentadol HCl [Nucynta ER] 200 mg PO DAILY 03/30/18 Family Disease History - Family Disease History Family Disease History: Diabetes: Mother ( 58: diabetic complications), CA: Father ( 49: asbestosis), Respiratory: Brother (bronchial asthma, DVT), Other: Mother, Sister (BCA), Son (2, healthy), Daughter (1, healthy) Review of Systems - Review of Systems Constitutional: reports: Weakness Eyes: reports: No Symptoms HENT: reports: No Symptoms Neck: reports: Other (tracheostomy) Cardiovascular: reports: Shortness of Breath Respiratory: reports: SOB Gastrointestinal: reports: Indigestion Genitourinary: reports: No Symptoms Breasts: reports: No Symptoms Reported Musculoskeletal: reports: Muscle Weakness Integumentary: reports: No Symptoms Neurological: reports: Weakness Endocrine: reports: No Symptoms Hematology/Lymphatic: reports: No Symptoms Psychiatric: reports: Anxiety - Risk Factors Known Risk Factors: Yes: Age, Gender, Hypercholesterolemia, Hypertension, Physical Inactivity, Race Vital Signs: Vital Signs Temperature 98.6 F 03/31/18 10:22 Pulse Rate 92 H 03/31/18 10:22 Respiratory Rate 18 03/31/18 09:00 Blood Pressure 155/88 03/31/18 10:22 O2 Sat by Pulse Oximetry (%) 97 03/31/18 09:00 Constitutional: Yes: Obese Eyes: Yes: WNL HENT: Yes: WNL Neck: Yes: Other (tach sit without discharge/exudate) Respiratory: Yes: Diminished, Rhonchi, SOB Gastrointestinal: Yes: Soft, Abdomen, Obese Renal/: No: Anuria Cardiovascular: Yes: Regular Rate and Rhythm, Gallop JVD: No Carotid Bruit: No PMI: Displaced Heart Sounds: Yes: S1, S2, S4 Murmur: Yes: Systolic Murmur, Grade 2, Grade 4 Musculoskeletal: Yes: Joint Stiffness, Muscle Weakness Extremities: Yes: Cool Edema: No Peripheral Pulses WNL: Yes Integumentary: Yes: WNL Neurological: Yes: Alert, Oriented, Weakness Psychiatric: Yes: Other (anxeity) - Other Data Labs, Other Data: CBC, BMP 03/31/18 05:30 03/31/18 05:30 INR, PTT INR 1.04 (0.83-1.09) 03/30/18 09:39 Troponin, BNP 03/30/18 03/30/18 15:45 23:48 Troponin I < 0.02 < 0.02 Troponin, BNP 03/30/18 03/30/18 15:45 23:48 Troponin I < 0.02 < 0.02 Echo: Report Reviewed (12/27: normal LVEF: trace-mild MR and TR) Ejection Fraction %: LVEF > or = 40 % Imaging - Results EKG: Image Reviewed (sinus tachycardia) Problem List - Problems (1) Acute bronchitis Code(s): J20.9 - ACUTE BRONCHITIS, UNSPECIFIED (2) Asthma exacerbation in COPD Assessment/Plan: s/p tracehostomy. Hx sleep apnea. Bronchodilators, O2, steroids, antibiotics per pulmonologis. Code(s): J44.1 - CHRONIC OBSTRUCTIVE PULMONARY DISEASE W (ACUTE) EXACERBATION; J45.901 - UNSPECIFIED ASTHMA WITH (ACUTE) EXACERBATION (3) Pneumonia Code(s): J18.9 - PNEUMONIA, UNSPECIFIED ORGANISM Qualifiers: (4) Acute on chronic diastolic (congestive) heart failure Code(s): I50.33 - ACUTE ON CHRONIC DIASTOLIC (CONGESTIVE) HEART FAILURE (5) Hx of CABG Assessment/Plan: f/u cardiac hx with pt's frame nailer, Dr. Bola Elaine. Code(s): Z95.1 - PRESENCE OF AORTOCORONARY BYPASS GRAFT (6) H/O heart artery stent Assessment/Plan: On ASA and clopidogrel. F?u TNI serially. EKG Code(s): Z95.5 - PRESENCE OF CORONARY ANGIOPLASTY IMPLANT AND GRAFT (7) BPH (benign prostatic hyperplasia) Code(s): N40.0 - BENIGN PROSTATIC HYPERPLASIA WITHOUT LOWER URINRY TRACT SYMP (8) Hyperlipidemia Assessment/Plan: on zetia and statin. Code(s): E78.5 - HYPERLIPIDEMIA, UNSPECIFIED (9) Atypical chest pain Assessment/Plan: TNI < 0.02; f/u serially. EKG: sinus tahcycardia Stress MIBI 07/2016: mild periinfarct inderior wall ischemia. Discussed pt with his frame nailer, Dr. Elaine. Pt is seen frequently for chest pain, which is often secondary to pulmonary issues. Aggressive medical managament of CAD with nitrate, ASA and cloopidogrel, statin + Zetia, ACEI (CAD, HGN, DM). Physical therapy (pt does very little walking since back surgery 12/2017). Code(s): R07.89 - OTHER CHEST PAIN (10) Sleep apnea Code(s): G47.30 - SLEEP APNEA, UNSPECIFIED
[2018-03-31] MEDS: BUDESONIDE/FORMETEROL FUMARATE 160/4.5 mcg INHALER IH SCH (14:38)
[2018-03-31] MEDS: AZITHROMYCIN IVPB 500 MG in DEXTROSE 5%-WATER - 250 ML IVPB SCH (15:11)
[2018-03-31] MEDS ORDERED: MORPHINE SULFATE 2 MG/ML VIAL SQ PRN (15:17)
[2018-03-31] MEDS: CEFTRIAXONE 500 MG in DEXTROSE 5%-WATER - 50 ML IVPB SCH ×2 (16:04→16:51)
[2018-03-31] MEDS ORDERED: INSULIN (NOVOLOG) ASPART 100 UNITS/ML 10ML VIAL SQ ONE (17:11)
[2018-03-31] MEDS: SODIUM CHLORIDE 1,000 ML IV SCH (17:38)
[2018-03-31] MEDS ORDERED: INSULIN (NOVOLOG) ASPART 100 UNITS/ML 10ML VIAL ONE (21:03)
[2018-03-31] MEDS: MONTELUKAST NA 10 MG TABLET PO SCH (21:22)
[2018-03-31] MEDS: ROSUVASTATIN CA 10 MG TABLET (FP) PO SCH (21:22)
[2018-03-31] MEDS ORDERED: AMITRIPTYLINE HCL 25 MG TABLET (FP) PO ONE (22:00)
[2018-03-31] MEDS ORDERED: INSULIN (LEVEMIR) 100 UNITS/ML UNITS SQ SCH (22:00)
[2018-04-01] MEDS: diazePAM 5 MG TABLET PO PRN (00:30)
[2018-04-01] MEDS: methylPREDNISolone NA SUCC 40 MG/1 ML VIAL IVPUSH SCH ×3 (01:58→17:54)
[2018-04-01] MEDS: INSULIN SLIDING SCALE (NOVOLOG) 1 VIAL SQ SCH ×5 (01:58→21:19)
[2018-04-01] MEDS: INSULIN (LEVEMIR) 100 UNITS/ML UNITS SQ SCH ×2 (06:12→21:18)
[2018-04-01] MEDS: ALBUTEROL SO4 2.5/IPRATROPIUM 0.5 INH SOL 3 ML VIAL.NEB. NEB SCH ×4 (07:46→21:10)
[2018-04-01] MEDS ORDERED: SODIUM CHLORIDE 500 ML IV STA (07:46)
[2018-04-01 08:37] LABS: HEMATOCRIT 31.2 % (35.4-49); LYMPH % 13.7 % (8-40); MCH 25.3 pg (25.7-33.7); MEAN CELL VOLUME 78.9 fl (80-96); MEAN PLT VOLUME 7.3 fl (7.5-11.1); NEUT % 81.3 % (42.8-82.8); PLATELET COUNT 333 K/MM3 (134-434); RBC 3.96 M/mm3 (4.00-5.60); RDW 16.2 % (11.9-15.9); WHITE BLOOD COUNT 14.2 K/mm3 (4.0-10.0)
[2018-04-01] MEDS ORDERED: PT OWN MED DRAWER 7, Y5N ONE ×2 (08:54→16:05)
[2018-04-01 09:11] LABS: ALBUMIN 3.4 g/dl (3.4-5.0); ALK PHOS 177 U/L (45-117); ANION GAP 11 MMOL/L (8-16); BILIRUBIN,TOTAL 0.3 mg/dL (0.2-1); BLOOD UREA NITROGEN 44 mg/dL (7-18); CALCIUM 8.8 mg/dL (8.5-10.1); CHLORIDE 112 mmol/L (98-107); CO2 20 mmol/L (21-32); CREATININE 1.3 mg/dL (0.55-1.3); GLUCOSE,RANDOM 224 mg/dL (74-106); MAGNESIUM 3.1 mg/dL (1.8-2.4); POTASSIUM 4.3 mmol/L (3.5-5.1); SGOT/AST 21 U/L (15-37); SGPT/ALT 41 U/L (13-61); SODIUM 143 mmol/L (136-145); TOT PROT 7.1 g/dl (6.4-8.2)
[2018-04-01] MEDS: BUDESONIDE/FORMETEROL FUMARATE 160/4.5 mcg INHALER IH SCH (09:19)
[2018-04-01] MEDS: LIPASE/PROTEASE/AMYLASE 36,000 UNIT CAPSULE PO SCH ×5 (09:20→17:00)
[2018-04-01] MEDS: CLOPIDOGREL BISULFATE 75 MG TABLET (FP) PO SCH (09:20)
[2018-04-01] MEDS: HEPARIN NA (PORCINE) 5,000 UNITS/ML 1ML VIAL SQ SCH ×2 (09:21→21:16)
[2018-04-01] MEDS: FUROSEMIDE 40 MG TABLET (FP) PO SCH (09:21)
[2018-04-01] MEDS: AMITRIPTYLINE HCL 25 MG TABLET (FP) PO SCH (09:21)
[2018-04-01] MEDS: amLODIPine BESYLATE 5 MG TABLET (FP) PO SCH (09:21)
[2018-04-01] MEDS: FINASTERIDE 5 MG TABLET (FP) PO SCH (09:21)
[2018-04-01] MEDS: ASPIRIN COATED 81 MG TABLET.EC PO SCH (09:21)
[2018-04-01] MEDS: AMINO ACIDS/PROTEIN HYDROLYS 30 ML LIQUID.PKT PO SCH ×2 (09:22→17:13)
[2018-04-01] MEDS: RAMIPRIL 5 MG CAPSULE (FP) PO SCH (09:23)
[2018-04-01] MEDS: TAMSULOSIN HCL 0.4 MG CAP PO SCH (09:25)
[2018-04-01] MEDS: POLYETHYLENE GLYCOL 3350 119 GM BTL PO SCH ×2 (09:26→21:17)
[2018-04-01] MEDS: GABAPENTIN 300 MG CAPSULE (FP) PO SCH ×2 (09:26→21:18)
[2018-04-01] MEDS: RANITIDINE HCL 150 MG TABLET (FP) PO SCH ×2 (09:26→21:19)
[2018-04-01] MEDS: CEFTRIAXONE 500 MG in DEXTROSE 5%-WATER - 50 ML IVPB SCH (09:27)
[2018-04-01] MEDS: AZITHROMYCIN IVPB 500 MG in DEXTROSE 5%-WATER - 250 ML IVPB SCH (09:27)
[2018-04-01] MEDS: EZETIMIBE 10 MG TABLET (FP) PO SCH (09:27)
--- NOTE | 2018-04-01 10:13 | PN ---
Progress Note, Physician Chief Complaint: AWAKE ALERT NOTES AND EVENTS REVIEWED PATIENT HAS PRODUCTIVE GREEN SPUTUM COUGH RESPIRATORY DISTRESS ON - Current Medication List Current Medications: Active Medications Albuterol/Ipratropium (Duoneb -) 1 amp NEB RQID [facility] Last Admin: 04/01/18 07:46 Dose: 1 amp Amino Acids (Prosource No Carb Liquid Pkt) 30 ml PO BID@0800,1730 [facility] Last Admin: 04/01/18 09:22 Dose: 30 ml Amitriptyline HCl (Elavil -) 25 mg PO DAILY [facility] Last Admin: 04/01/18 09:21 Dose: 25 mg Amlodipine Besylate (Norvasc -) 5 mg PO DAILY [facility] Last Admin: 04/01/18 09:21 Dose: 5 mg Aspirin (Ecotrin -) 81 mg PO DAILY [facility] Last Admin: 04/01/18 09:21 Dose: 81 mg Budesonide/Formoterol Fumarate (Symbicort 160/4.5mcg -) 1 puff IH DAILY [facility] Last Admin: 04/01/18 09:19 Dose: 1 puff Clopidogrel Bisulfate (Plavix -) 75 mg PO DAILY [facility] Last Admin: 04/01/18 09:20 Dose: 75 mg Diazepam (Valium -) 5 mg PO Q12H PRN PRN Reason: back spasms Last Admin: 04/01/18 00:30 Dose: 5 mg Ezetimibe (Zetia -) 10 mg PO DAILY [facility] Last Admin: 04/01/18 09:27 Dose: 10 mg Finasteride (Proscar -) 5 mg PO DAILY [facility] Last Admin: 04/01/18 09:21 Dose: 5 mg Furosemide (Lasix -) 40 mg PO DAILY [facility] Last Admin: 04/01/18 09:21 Dose: 40 mg Gabapentin (Neurontin -) 300 mg PO BID [facility] Last Admin: 04/01/18 09:26 Dose: 300 mg Heparin Sodium (Porcine) (Heparin -) 5,000 unit SQ BID [facility] Last Admin: 04/01/18 09:21 Dose: 5,000 unit Hydromorphone HCl (Dilaudid -) 4 mg PO Q4H PRN PRN Reason: PAIN LEVEL 7 - 10 Last Admin: 04/01/18 07:14 Dose: 4 mg Ceftriaxone Sodium 500 mg/ (Dextrose) 50 mls @ 100 mls/hr IVPB DAILY [facility] Last Admin: 04/01/18 09:27 Dose: Not Given Azithromycin 500 mg/ Dextrose 250 mls @ 250 mls/hr IVPB DAILY [facility] Stop: 04/04/18 10:59 Last Admin: 04/01/18 09:27 Dose: 250 mls/hr Sodium Chloride (Normal Saline -) 1,000 mls @ 100 mls/hr IV ASDIR [facility] Last Admin: 03/31/18 17:38 Dose: 100 mls/hr Insulin Aspart (Novolog Vial Sliding Scale -) 1 vial SQ Q4HPO [facility]; Protocol Last Admin: 04/01/18 09:32 Dose: 10 units Insulin Detemir (Levemir Vial) 35 units SQ BID@0700,2200 [facility] Last Admin: 04/01/18 06:12 Dose: 35 units Methylprednisolone Sodium Succinate (Solu-Medrol -) 60 mg IVPUSH Q8H-IV [facility] Last Admin: 04/01/18 09:20 Dose: 60 mg Montelukast Sodium (Singulair -) 10 mg PO [facility] Last Admin: 03/31/18 21:22 Dose: 10 mg Non-Formulary Medication (Mesalamine [Pentasa]) 500 mg PO DAILY [facility] Pancrelipase (Creon Dr 36,000 Units Capsule) 1 cap PO TIDCM [facility] Last Admin: 04/01/18 09:42 Dose: Not Given Polyethylene Glycol (Miralax (For Daily Use) -) 17 gm PO BID [facility] Last Admin: 04/01/18 09:26 Dose: Not Given Ramipril (Altace -) 10 mg PO DAILY [facility] Last Admin: 04/01/18 09:23 Dose: 10 mg Ranitidine HCl (Zantac -) 150 mg PO BID [facility] Last Admin: 04/01/18 09:26 Dose: 150 mg Rosuvastatin Calcium (Crestor -) 10 mg PO HS [facility] Last Admin: 03/31/18 21:22 Dose: 10 mg Tamsulosin HCl (Flomax -) 0.4 mg PO DAILY@0830 [facility] Last Admin: 04/01/18 09:25 Dose: 0.4 mg - Objective Vital Signs: Vital Signs Temperature 98.3 F 04/01/18 06:00 Pulse Rate 87 04/01/18 06:00 Respiratory Rate 18 04/01/18 06:00 Blood Pressure 146/84 04/01/18 06:00 O2 Sat by Pulse Oximetry (%) 97 03/31/18 21:00 Constitutional: Yes: Mild Distress Eyes: Yes: WNL HENT: Yes: WNL Neck: Yes: WNL Cardiovascular: Yes: WNL Respiratory: Yes: Cough, On Nasal O2, Wheezes Gastrointestinal: Yes: WNL Genitourinary: Yes: WNL Musculoskeletal: Yes: Muscle Weakness Extremities: Yes: WNL Edema: Yes Edema: LLE: 1+, RLE: 1+ Peripheral Pulses WNL: Yes Integumentary: Yes: WNL Wound/Incision: Yes: Clean/Dry Neurological: Yes: Pre-Existing Deficit ...Motor Strength: LLE, RLE Psychiatric: Yes: Other Labs: CBC, BMP 04/01/18 08:15 04/01/18 08:15 INR, PTT INR 1.04 (0.83-1.09) 03/30/18 09:39 Problem List - Problems (1) Acute bronchitis Code(s): J20.9 - ACUTE BRONCHITIS, UNSPECIFIED (2) Asthma exacerbation in COPD Code(s): J44.1 - CHRONIC OBSTRUCTIVE PULMONARY DISEASE W (ACUTE) EXACERBATION; J45.901 - UNSPECIFIED ASTHMA WITH (ACUTE) EXACERBATION (3) Atypical chest pain Code(s): R07.89 - OTHER CHEST PAIN (4) H/O heart artery stent Code(s): Z95.5 - PRESENCE OF CORONARY ANGIOPLASTY IMPLANT AND GRAFT (5) Hx of CABG Code(s): Z95.1 - PRESENCE OF AORTOCORONARY BYPASS GRAFT (6) Pneumonia Code(s): J18.9 - PNEUMONIA, UNSPECIFIED ORGANISM Qualifiers: (7) ASHD (arteriosclerotic heart disease) Code(s): I25.10 - ATHSCL HEART DISEASE OF [place] CORONARY ARTERY W/O ANG PCTRS (8) Acute on chronic diastolic (congestive) heart failure Code(s): I50.33 - ACUTE ON CHRONIC DIASTOLIC (CONGESTIVE) HEART FAILURE (9) BPH (benign prostatic hyperplasia) Code(s): N40.0 - BENIGN PROSTATIC HYPERPLASIA WITHOUT LOWER URINRY TRACT SYMP (10) Cervical radiculopathy Code(s): M54.12 - RADICULOPATHY, CERVICAL REGION (11) Chronic back pain Code(s): M54.9 - DORSALGIA, UNSPECIFIED; G89.29 - OTHER CHRONIC PAIN Qualifiers: Assessment/Plan IV ABX NEBS STEROIDS DVT PROPHYLAXIS OOB TO CHAIR PT EVAL CHECK CULTURES PAIN CONTROL
--- NOTE | 2018-04-01 11:34 | PN ---
Progress Note, Physician History of Present Illness: PULMONARY ALERT,LESS DYSPNEIC,C/O BACK PAIN - Current Medication List Current Medications: Active Medications Albuterol/Ipratropium (Duoneb -) 1 amp NEB RQID [facility] Last Admin: 04/01/18 07:46 Dose: 1 amp Amino Acids (Prosource No Carb Liquid Pkt) 30 ml PO BID@0800,1730 [facility] Last Admin: 04/01/18 09:22 Dose: 30 ml Amitriptyline HCl (Elavil -) 25 mg PO DAILY [facility] Last Admin: 04/01/18 09:21 Dose: 25 mg Amlodipine Besylate (Norvasc -) 5 mg PO DAILY [facility] Last Admin: 04/01/18 09:21 Dose: 5 mg Aspirin (Ecotrin -) 81 mg PO DAILY [facility] Last Admin: 04/01/18 09:21 Dose: 81 mg Budesonide/Formoterol Fumarate (Symbicort 160/4.5mcg -) 1 puff IH DAILY [facility] Last Admin: 04/01/18 09:19 Dose: 1 puff Clopidogrel Bisulfate (Plavix -) 75 mg PO DAILY [facility] Last Admin: 04/01/18 09:20 Dose: 75 mg Diazepam (Valium -) 5 mg PO Q12H PRN PRN Reason: back spasms Last Admin: 04/01/18 00:30 Dose: 5 mg Ezetimibe (Zetia -) 10 mg PO DAILY [facility] Last Admin: 04/01/18 09:27 Dose: 10 mg Finasteride (Proscar -) 5 mg PO DAILY [facility] Last Admin: 04/01/18 09:21 Dose: 5 mg Furosemide (Lasix -) 40 mg PO DAILY [facility] Last Admin: 04/01/18 09:21 Dose: 40 mg Gabapentin (Neurontin -) 300 mg PO BID [facility] Last Admin: 04/01/18 09:26 Dose: 300 mg Heparin Sodium (Porcine) (Heparin -) 5,000 unit SQ BID [facility] Last Admin: 04/01/18 09:21 Dose: 5,000 unit Hydromorphone HCl (Dilaudid -) 4 mg PO Q4H PRN PRN Reason: PAIN LEVEL 7 - 10 Last Admin: 04/01/18 11:15 Dose: 4 mg Ceftriaxone Sodium 500 mg/ (Dextrose) 50 mls @ 100 mls/hr IVPB DAILY [facility] Last Admin: 04/01/18 09:27 Dose: Not Given Azithromycin 500 mg/ Dextrose 250 mls @ 250 mls/hr IVPB DAILY [facility] Stop: 04/04/18 10:59 Last Admin: 04/01/18 09:27 Dose: 250 mls/hr Insulin Aspart (Novolog Vial Sliding Scale -) 1 vial SQ Q4HPO [facility]; Protocol Last Admin: 04/01/18 09:32 Dose: 10 units Insulin Detemir (Levemir Vial) 35 units SQ BID@0700,2200 [facility] Last Admin: 04/01/18 06:12 Dose: 35 units Methylprednisolone Sodium Succinate (Solu-Medrol -) 60 mg IVPUSH Q8H-IV [facility] Last Admin: 04/01/18 09:20 Dose: 60 mg Montelukast Sodium (Singulair -) 10 mg PO [facility] Last Admin: 03/31/18 21:22 Dose: 10 mg Non-Formulary Medication (Mesalamine [Pentasa]) 500 mg PO DAILY [facility] Pancrelipase (Creon Dr 36,000 Units Capsule) 1 cap PO TIDCM [facility] Last Admin: 04/01/18 11:16 Dose: Not Given Polyethylene Glycol (Miralax (For Daily Use) -) 17 gm PO BID [facility] Last Admin: 04/01/18 09:26 Dose: Not Given Ramipril (Altace -) 10 mg PO DAILY [facility] Last Admin: 04/01/18 09:23 Dose: 10 mg Ranitidine HCl (Zantac -) 150 mg PO BID [facility] Last Admin: 04/01/18 09:26 Dose: 150 mg Rosuvastatin Calcium (Crestor -) 10 mg PO [facility] Last Admin: 03/31/18 21:22 Dose: 10 mg Tamsulosin HCl (Flomax -) 0.4 mg PO DAILY@0830 [facility] Last Admin: 04/01/18 09:25 Dose: 0.4 mg - Objective Vital Signs: Vital Signs Temperature 98.3 F 04/01/18 06:00 Pulse Rate 87 04/01/18 06:00 Respiratory Rate 18 04/01/18 09:00 Blood Pressure 146/84 04/01/18 06:00 O2 Sat by Pulse Oximetry (%) 97 04/01/18 09:00 Constitutional: Yes: Calm, Obese Eyes: Yes: WNL HENT: Yes: WNL Neck: Yes: Supple (TRACH) Cardiovascular: Yes: Regular Rate and Rhythm, S1, S2 Respiratory: Yes: Wheezes (SCATTERED TYSON WHEEZES) Gastrointestinal: Yes: Normal Bowel Sounds, Soft Extremities: Yes: WNL Edema: No Labs: CBC, BMP 04/01/18 08:15 04/01/18 08:15 INR, PTT INR 1.04 (0.83-1.09) 03/30/18 09:39 Assessment/Plan Problem List - Problems (1) Asthma exacerbation Code(s): J45.901 - UNSPECIFIED ASTHMA WITH (ACUTE) EXACERBATION (2) Acute bronchitis Code(s): J20.9 - ACUTE BRONCHITIS, UNSPECIFIED (3) Chronic pain Code(s): G89.29 - OTHER CHRONIC PAIN Qualifiers: Chronic pain type: chronic pain syndrome Qualified Code(s): G89.4 - Chronic pain syndrome (4) Chronic pancreatitis Code(s): K86.1 - OTHER CHRONIC PANCREATITIS Qualifiers: Pancreatitis type: unspecified pancreatitis type Qualified Code(s): K86.1 - Other chronic pancreatitis (5) Coronary artery disease Code(s): I25.10 - ATHSCL HEART DISEASE OF [place] CORONARY ARTERY W/O ANG PCTRS (6) Diabetes mellitus Code(s): E11.9 - TYPE 2 DIABETES MELLITUS WITHOUT COMPLICATIONS Qualifiers: Diabetes mellitus type: type 2 Diabetes mellitus complication detail: with unspecified neuropathy (7) Hyperlipidemia Code(s): E78.5 - HYPERLIPIDEMIA, UNSPECIFIED (8) Hypertension Code(s): I10 - ESSENTIAL (PRIMARY) HYPERTENSION Qualifiers: Hypertension type: essential hypertension Qualified Code(s): I10 - Essential (primary) hypertension Assessment/Plan Acute Asthma Exacerbation slowly improving Acute Bronchitis vs r/o Pneumonia Lactic Acidosis Obstructive Sleep Apnea s/p tracheostomy CAD s/p CABG HTN DM Hyperlipidemia Chronic Back Pain Opiate Dependence - IV medrol same dose start taper in am - inhaled bronchodilators standing and PRN - monitor peak flow - O2 to keep SpO2>90% - uncap tracheostomy when sleeping - glucose control while on systemic steroids - DVT prophylaxis DR VANESSA
[2018-04-01] MEDS ORDERED: INSULIN (NOVOLOG) ASPART 100 UNITS/ML 10ML VIAL ONE (12:59)
--- NOTE | 2018-04-01 13:33 | PN ---
Progress Note, Physician Chief Complaint: Pt A&Ox3; anxious; believes his shortness of breath is "different; like when I had to have another stent". No chest pain. History of Present Illness: The patient is a 62 year old black male with significant history of CAD, SD--> CABG; s/p coronary stents x 6 (most recently 12/2015),hypertension, hyperlipidemia, chronic pancreatitis, chronic back pain/surgery (takes oxycodone ), SBO, incarcerated hernia s/p repair x2 (September 2017), H.Pylori, BPH, COPD, bronchial asthma, tracheostomy in place (unplugs when sleeping for sleep apnea) , anxiety, who presents to the ED complaining of one week of intermittent fevers and chills, productive cough, generalized weakness, shortness of breath, and chest tightness. The patient states he feels sweaty one minute and cold the next. He states his cough is productive of beige sputum. He states he has been having chest tightness that radiates to his back which is exacerbated by his cough. He denies blood in his sputum. He denies radiation of chest pain. The patient states he has been using his nebulizers at home every 4 hours with little to no resolve of symptoms. He states he is concerned for pneumonia at this time. He denies any mucus, sputum, or blood from his trach tube. He states he cleans the tube regularly. No travel or sick contacts. Secondarily, he states he has chronic abdominal pain and is scheduled for endoscopy to evaluate his benign pancreatic tumors. - Current Medication List Current Medications: Active Medications Albuterol/Ipratropium (Duoneb -) 1 amp NEB RQID [facility] Last Admin: 04/01/18 11:58 Dose: 1 amp Amino Acids (Prosource No Carb Liquid Pkt) 30 ml PO BID@0800,1730 [facility] Last Admin: 04/01/18 09:22 Dose: 30 ml Amitriptyline HCl (Elavil -) 25 mg PO DAILY [facility] Last Admin: 04/01/18 09:21 Dose: 25 mg Amlodipine Besylate (Norvasc -) 5 mg PO DAILY [facility] Last Admin: 04/01/18 09:21 Dose: 5 mg Aspirin (Ecotrin -) 81 mg PO DAILY [facility] Last Admin: 04/01/18 09:21 Dose: 81 mg Budesonide/Formoterol Fumarate (Symbicort 160/4.5mcg -) 1 puff IH DAILY [facility] Last Admin: 04/01/18 09:19 Dose: 1 puff Clopidogrel Bisulfate (Plavix -) 75 mg PO DAILY [facility] Last Admin: 04/01/18 09:20 Dose: 75 mg Diazepam (Valium -) 5 mg PO Q12H PRN PRN Reason: back spasms Last Admin: 04/01/18 00:30 Dose: 5 mg Ezetimibe (Zetia -) 10 mg PO DAILY [facility] Last Admin: 04/01/18 09:27 Dose: 10 mg Finasteride (Proscar -) 5 mg PO DAILY [facility] Last Admin: 04/01/18 09:21 Dose: 5 mg Furosemide (Lasix -) 40 mg PO DAILY [facility] Last Admin: 04/01/18 09:21 Dose: 40 mg Gabapentin (Neurontin -) 300 mg PO BID [facility] Last Admin: 04/01/18 09:26 Dose: 300 mg Heparin Sodium (Porcine) (Heparin -) 5,000 unit SQ BID [facility] Last Admin: 04/01/18 09:21 Dose: 5,000 unit Hydromorphone HCl (Dilaudid -) 4 mg PO Q4H PRN PRN Reason: PAIN LEVEL 7 - 10 Last Admin: 04/01/18 11:15 Dose: 4 mg Ceftriaxone Sodium 500 mg/ (Dextrose) 50 mls @ 100 mls/hr IVPB DAILY [facility] Last Admin: 04/01/18 09:27 Dose: Not Given Azithromycin 500 mg/ Dextrose 250 mls @ 250 mls/hr IVPB DAILY [facility] Stop: 04/04/18 10:59 Last Admin: 04/01/18 09:27 Dose: 250 mls/hr Insulin Aspart (Novolog Vial Sliding Scale -) 1 vial SQ Q4HPO [facility]; Protocol Last Admin: 04/01/18 09:32 Dose: 10 units Insulin Detemir (Levemir Vial) 35 units SQ BID@0700,2200 [facility] Last Admin: 04/01/18 06:12 Dose: 35 units Methylprednisolone Sodium Succinate (Solu-Medrol -) 60 mg IVPUSH Q8H-IV [facility] Last Admin: 04/01/18 09:20 Dose: 60 mg Montelukast Sodium (Singulair -) 10 mg PO HS [facility] Last Admin: 03/31/18 21:22 Dose: 10 mg Non-Formulary Medication (Mesalamine [Pentasa]) 500 mg PO DAILY [facility] Pancrelipase (Creon Dr 36,000 Units Capsule) 1 cap PO TIDCM [facility] Last Admin: 04/01/18 11:16 Dose: Not Given Polyethylene Glycol (Miralax (For Daily Use) -) 17 gm PO BID [facility] Last Admin: 04/01/18 09:26 Dose: Not Given Ramipril (Altace -) 10 mg PO DAILY [facility] Last Admin: 04/01/18 09:23 Dose: 10 mg Ranitidine HCl (Zantac -) 150 mg PO BID [facility] Last Admin: 04/01/18 09:26 Dose: 150 mg Rosuvastatin Calcium (Crestor -) 10 mg PO HS [facility] Last Admin: 03/31/18 21:22 Dose: 10 mg Tamsulosin HCl (Flomax -) 0.4 mg PO DAILY@0830 [facility] Last Admin: 04/01/18 09:25 Dose: 0.4 mg - Objective Vital Signs: Vital Signs Temperature 98.3 F 04/01/18 06:00 Pulse Rate 87 04/01/18 06:00 Respiratory Rate 18 04/01/18 09:00 Blood Pressure 146/84 04/01/18 06:00 O2 Sat by Pulse Oximetry (%) 97 04/01/18 09:00 Constitutional: Yes: Anxious Eyes: Yes: WNL HENT: Yes: WNL Neck: Yes: WNL Cardiovascular: Yes: S1, S2, S4 Respiratory: Yes: Diminished, Tachypnea Gastrointestinal: Yes: Soft ...Rectal Exam: Yes: Deferred Genitourinary: No: Anuria Musculoskeletal: Yes: Muscle Weakness Extremities: Yes: Cool Edema: No Peripheral Pulses WNL: Yes Integumentary: Yes: Other (scar from back surgery) Neurological: Yes: WNL Psychiatric: No: WNL Labs: CBC, BMP 04/01/18 08:15 04/01/18 08:15 INR, PTT INR 1.04 (0.83-1.09) 03/30/18 09:39 Abnormal Lab Results 04/01/18 04/01/18 04/01/18 05:30 08:15 08:15 WBC 14.2 H RBC 3.96 L Hgb 10.0 L Hct 31.2 L MCV 78.9 L MCH 25.3 L RDW 16.2 H MPV 7.3 L Absolute Neuts (auto) 11.5 H Chloride 112 H Carbon Dioxide 20 L BUN 44 H Random Glucose 224 H Lactic Acid 2.8 H* Magnesium 3.1 H Alkaline Phosphatase 177 H B-Natriuretic Peptide Total LDL Cholesterol 04/01/18 04/01/18 04/01/18 13:45 13:45 13:45 WBC RBC Hgb Hct MCV MCH RDW MPV Absolute Neuts (auto) Chloride Carbon Dioxide BUN Random Glucose Lactic Acid 4.0 H* Magnesium Alkaline Phosphatase B-Natriuretic Peptide 1507.1 H Total LDL Cholesterol 109 H Problem List - Problems (1) Acute bronchitis Assessment/Plan: f/u with oil distributor tender Code(s): J20.9 - ACUTE BRONCHITIS, UNSPECIFIED (2) Asthma exacerbation in COPD Assessment/Plan: s/p tracehostomy. Hx sleep apnea. Bronchodilators, O2, steroids, antibiotics per oil distributor tender. Code(s): J44.1 - CHRONIC OBSTRUCTIVE PULMONARY DISEASE W (ACUTE) EXACERBATION; J45.901 - UNSPECIFIED ASTHMA WITH (ACUTE) EXACERBATION (3) Pneumonia Assessment/Plan: on antibiotics; f/u cultures. CXR PA and Lat Code(s): J18.9 - PNEUMONIA, UNSPECIFIED ORGANISM Qualifiers: (4) Acute on chronic diastolic (congestive) heart failure Assessment/Plan: On ramipril, amlodipine, furosemide. F/u BUn/Cr, electrolytes, daily weight, Is and Os. F/u BNP. Code(s): I50.33 - ACUTE ON CHRONIC DIASTOLIC (CONGESTIVE) HEART FAILURE (5) Hx of CABG Assessment/Plan: f/u cardiac hx with pt's wool broker, Dr. Bola Elaine. Code(s): Z95.1 - PRESENCE OF AORTOCORONARY BYPASS GRAFT (6) H/O heart artery stent Assessment/Plan: On ASA and clopidogrel. TNI < 0.02 x 3 EKG: sinus tahcycardia initially, with possible old IWMI; repeat today shows normal study. Code(s): Z95.5 - PRESENCE OF CORONARY ANGIOPLASTY IMPLANT AND GRAFT (7) BPH (benign prostatic hyperplasia) Assessment/Plan: On Proscar. Code(s): N40.0 - BENIGN PROSTATIC HYPERPLASIA WITHOUT LOWER URINRY TRACT SYMP (8) Hyperlipidemia Assessment/Plan: on zetia and statin. F/u lipid level (total cholesterol < 100 mg/dL 11/2017); ideally, keep LDL below 70 mg/dL. Code(s): E78.5 - HYPERLIPIDEMIA, UNSPECIFIED (9) Atypical chest pain Assessment/Plan: TNI < 0.02 x 3. EKG: sinus tachycardia; f/u repeat today (HR generally WNL over the past 24 hours). Stress MIBI 07/2016: mild periinfarct inderior wall ischemia. ECHO 12/2017: normal LVEF; mild LVH; mild LAE; trace-mild MR and TR. Discussed pt with his wool broker, Dr. Elaine. Pt is seen frequently for chest pain, which is often secondary to pulmonary issues. Aggressive medical managament of CAD with nitrates, ASA and cloopidogrel, statin + Zetia, ACEI (for CAD, HGN, DM). Physical therapy (pt does very little walking since back surgery 12/2017). No chest pain now; +tachypnea, difficulty breathing (COPD, asthma, PNA). From a cardiac perspective, pt may be followed as an outpatient by his wool broker. Code(s): R07.89 - OTHER CHEST PAIN (10) Sleep apnea Code(s): G47.30 - SLEEP APNEA, UNSPECIFIED (11) Leukocytosis Assessment/Plan: On IV antibiotics. rpeortedly febrile in days before admission. f/u cultures. F/u with ID, PMD. Code(s): D72.829 - ELEVATED WHITE BLOOD CELL COUNT, UNSPECIFIED (12) Acute adjustment disorder with anxiety Code(s): F43.22 - ADJUSTMENT DISORDER WITH ANXIETY (13) Opiate dependence Code(s): F11.20 - OPIOID DEPENDENCE, UNCOMPLICATED (14) Diabetes mellitus Assessment/Plan: elevated glucose; also on steroids. F/u with video rental clerk. Code(s): E11.9 - TYPE 2 DIABETES MELLITUS WITHOUT COMPLICATIONS Qualifiers: Diabetes mellitus type: type 2 Diabetes mellitus complication detail: with unspecified neuropathy
--- NOTE | 2018-04-01 15:08 | EKG ---
Test Reason : Blood Pressure : / mmHG Vent. Rate : 093 BPM Atrial Rate : 093 BPM P-R Int : 174 ms QRS Dur : 088 ms QT Int : 360 ms P-R-T Axes : 058 010 032 degrees QTc Int : 447 ms NORMAL SINUS RHYTHM NORMAL ECG WHEN COMPARED WITH ECG OF 30-MAR-2018 11:58, MINIMAL CRITERIA FOR INFERIOR INFARCT ARE NO LONGER PRESENT NONSPECIFIC T WAVE ABNORMALITY NO LONGER EVIDENT IN ANTERIOR LEADS Confirmed by GIOVANNI BULLARD, STEVEN ([id number]) on 04/01/2018 3:08:36 PM Referred By: Confirmed By:STEVEN DAVILA MD
[2018-04-01 15:34] LABS: CHOLESTEROL 183 mg/dL (50-200); HDL CHOLESTEROL 59 mg/dL (40-60); TRIGLYCERIDES 110 mg/dL (0-150)
--- NOTE | 2018-04-01 16:41 | CONSULT ---
Consult Consult Specialty:: endocrine Referred by:: dr.ammir herrmann Reason for Consultation:: diabetes mellitus hyperglycemia - History of Present Illness Chief Complaint: high sugar and pain !!! History of Present Illness: 62 year old male with a significant past medical history of hypertension, hyperlipidemia, CAD s/p NH s/p stents x 6 s/p CABG, chronic pancreatitis, chronic back pain (back stimulator), SBO, incarcerated hernia s/p repair x2 ( September 2017), H.Pylori, BPH, COPD, tracheostomy in place (unplugs when sleeping for sleep apnea), diabetes mellitus with insulin pump. Patient comes to the ED with c/o of one week of intermittent fevers and chills, productive cough, generalized weakness, shortness of breath with back pain described as 9/10 despite oral pain meds,and stimulator. 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 Planned EMG/ NCVs studies and evaluation of motor weakness in process by treating neurologist Dr. Singh) Cardio/Vascular: Yes: CAD (Last stents placed x 2 last year per patient), CHF (s /p NH several years ago; s/p stenting. mild CHF in the past.), HTN, Hyperlipdemia, NH, Pulmonary Hypertension Pulmonary: Yes: Asthma, Sleep Apnea Gastrointestinal: Yes: Constipation, Pancreatitis (? history of chronic pancreatitis with episodes of acute pancreatitis), Other (FECAL INCONTINENCE SECONDARY TO OVERFLOW followed by Dr. Abdoulaye Wu, IPMN, PANCREATITIS . HAD EPISODE OF ISCHEMIC COLITIS LAST ADMISSION) Renal/: Yes: BPH Psych: Yes: Depression Musculoskeletal: Yes: Chronic low back pain (has back stimulator), Other ( CHRONIC NECK PAIN s/p Lumbar and Cervical fusion ) Endocrine: Yes: Diabetes Mellitus (has insulin pump) - Past Surgical History Past Surgical History: Yes: Breast Biopsy, Colonoscopy, Laminectomy, Stent (1 non eluting, 5 eluting) - Alcohol/Substance Use Hx Alcohol Use: No History of Substance Use: reports: None, Prescription (opiates for chronic pain post cervical spine surgery. 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 History of Recent Travel: No Home Medications - Allergies Allergies/Adverse Reactions: Allergies Allergy/AdvReac Type Severity Reaction Status Date / Time shellfish derived Allergy Severe Verified 08/18/17 13:42 Tetracyclines Allergy Severe Verified 08/18/17 13:42 - Home Medications Home Medications: Ambulatory Orders Albuterol Sulfate Inhaler - [Ventolin Hfa Inhaler -] 1 - 2 inh PO Q4H PRN Arformoterol Tartrate [Brovana] 15 mcg IH ASDIR 08/18/17 Aspirin [Aspirin EC] 81 mg PO DAILY 08/18/17 Budesonide/Formeterol Fumarate [SYMBICORT 160/4.5mcg -] 1 inh PO DAILY 08/18/17 Clopidogrel Bisulfate [Plavix] 75 mg PO DAILY 08/18/17 Dexlansoprazole [Dexilant] 30 mg PO DAILY 08/18/17 Diazepam [Valium] 5 mg PO PRN PRN 08/18/17 Ezetimibe [Zetia -] 10 mg PO DAILY 08/18/17 Furosemide [Lasix] 40 mg PO DAILY 08/18/17 Insulin Lispro [Humalog] 0 unit SQ PRN PRN 08/18/17 Insulin Pump Controller [Snap Insulin Pump Controller] 1 each MC ASDIR 08/18/17 Montelukast Sodium [Singulair] 10 mg PO DAILY 08/18/17 Ranitidine HCl 150 mg PO PRN PRN 08/18/17 Rosuvastatin Calcium [Crestor] 10 mg PO DAILY 08/18/17 Tiotropium Allouez [Spiriva] 1 puff IH DAILY 08/18/17 Amino Acids/Protein Hydrolys [Prosource No Carb Liquid Pkt] 30 ml PO BID@0800, 1730 packet 09/20/17 Amlodipine Besylate [Norvasc -] 5 mg PO DAILY tablet 09/20/17 Finasteride [Proscar -] 5 mg PO DAILY tablet 09/20/17 Insulin Sliding Scale [Novolog Vial Sliding Scale -] 1 vial SQ ACHS units 09/20 Lipase/Protease/Amylase [Stacy Hackett 36,000 Units Capsule] 1 cap PO TIDCM capsule. 09/20/17 Montelukast Na [Singulair -] 10 mg PO HS tablet 09/20/17 Multivitamins [Multivit ([facility] Formulary)] 1 tab PO DAILY tab 09/20/17 Polyethylene Glycol 3350 [Miralax 119 gm Btl -] 17 gm PO BID bottle 09/20/17 Ramipril [Altace] 10 mg PO DAILY capsule 09/20/17 Tamsulosin HCl [Flomax -] 0.4 mg PO DAILY@0830 cap.er.24h 09/20/17 Amitriptyline HCl [Elavil -] 25 mg PO DAILY 03/30/18 Gabapentin 600 mg PO DAILY 03/30/18 HYDROmorphone [Dilaudid -] 4 mg PO Q8H 03/30/18 Mesalamine [Pentasa] 500 mg PO DAILY 03/30/18 Ondansetron [Zofran -] 4 mg PO BID 03/30/18 Oxycodone HCl/Acetaminophen [Oxycodon-Acetaminophen 7.5-325] 1 each PO DAILY Prednisone 10 mg PO DAILY 03/30/18 Tapentadol HCl [Nucynta ER] 200 mg PO DAILY 03/30/18 Family Disease History - Family Disease History Family Disease History: Diabetes: Mother ( 58: diabetic complications), CA: Father ( 49: asbestosis), Respiratory: Brother (bronchial asthma, DVT), Other: Mother, Sister (BCA), Son (2, healthy), Daughter (1, healthy) Review of Systems - Review of Systems Constitutional: reports: Lethargy Eyes: reports: No Symptoms HENT: reports: Nasal Congestion Neck: reports: Other (trache sight clean) Cardiovascular: reports: Shortness of Breath Respiratory: reports: SOB, SOB on Exertion Gastrointestinal: reports: Bloating Genitourinary: reports: No Symptoms Breasts: reports: No Symptoms Reported Musculoskeletal: reports: Extremity Pain, Muscle Pain, Muscle Cramps, Muscle Weakness Integumentary: reports: No Symptoms Neurological: reports: Headache, Numbness, Unsteady Gait, Weakness Endocrine: reports: Unexplained Weight Gain Physical Exam Vital Signs: Vital Signs Temperature 98.3 F 04/01/18 06:00 Pulse Rate 87 04/01/18 06:00 Respiratory Rate 18 04/01/18 09:00 Blood Pressure 146/84 04/01/18 06:00 O2 Sat by Pulse Oximetry (%) 97 04/01/18 09:00 Constitutional: Yes: Anxious Eyes: Yes: EOM Intact HENT: Yes: Normocephalic Neck: Yes: Trachea Midline Cardiovascular: Yes: Regular Rate and Rhythm Respiratory: Yes: CTA Bilaterally Gastrointestinal: Yes: Normal Bowel Sounds, Abdomen, Obese, Tenderness, Epigastrium ...Rectal Exam: Yes: Deferred Renal/: Yes: WNL Breast(s): Yes: WNL Musculoskeletal: Yes: Joint Swelling, Muscle Pain, Muscle Weakness Extremities: Yes: WNL Edema: No Integumentary: Yes: WNL Neurological: Yes: Alert, Oriented Labs: CBC, BMP 04/01/18 08:15 04/01/18 08:15 Problem List - Problems (1) 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 Code(s): E10.51 - TYPE 1 DIABETES W DIABETIC PERIPHERAL ANGIOPATH W/O GANGRENE; I70.209 - UNSP ATHSCL WIYOT ARTERIES OF EXTREMITIES, UNSP EXTREMITY (2) Acute adjustment disorder with anxiety Code(s): F43.22 - ADJUSTMENT DISORDER WITH ANXIETY (3) Asthma exacerbation in COPD Code(s): J44.1 - CHRONIC OBSTRUCTIVE PULMONARY DISEASE W (ACUTE) EXACERBATION; J45.901 - UNSPECIFIED ASTHMA WITH (ACUTE) EXACERBATION (4) Bronchitis Code(s): J40 - BRONCHITIS, NOT SPECIFIED ACUTE OR CHRONIC (5) H/O heart artery stent Code(s): Z95.5 - PRESENCE OF CORONARY ANGIOPLASTY IMPLANT AND GRAFT (6) Hx of CABG Code(s): Z95.1 - PRESENCE OF AORTOCORONARY BYPASS GRAFT Assessment/Plan Current Active Problems Acute adjustment disorder with anxiety (Acute) Acute bronchitis (Acute) Asthma exacerbation in COPD (Acute) Atypical chest pain (Acute) Bronchitis (Acute) H/O heart artery stent (Acute) Hx of CABG (Acute) Opiate dependence (Acute) Pneumonia (Acute) diabetes mellitus acute uncontrolled hyperglycemia t1dm intractable pain back pain Abnormal Lab Results 03/31/18 04/01/18 04/01/18 20:15 05:30 08:15 WBC 14.2 H RBC 3.96 L Hgb 10.0 L Hct 31.2 L MCV 78.9 L MCH 25.3 L RDW 16.2 H MPV 7.3 L Absolute Neuts (auto) 11.5 H Chloride Carbon Dioxide BUN Random Glucose Lactic Acid 4.6 H* 2.8 H* Magnesium Alkaline Phosphatase B-Natriuretic Peptide Total LDL Cholesterol 04/01/18 04/01/18 04/01/18 08:15 13:45 13:45 WBC RBC Hgb Hct MCV MCH RDW MPV Absolute Neuts (auto) Chloride 112 H Carbon Dioxide 20 L BUN 44 H Random Glucose 224 H Lactic Acid 4.0 H* Magnesium 3.1 H Alkaline Phosphatase 177 H B-Natriuretic Peptide 1507.1 H Total LDL Cholesterol 04/01/18 13:45 WBC RBC Hgb Hct MCV MCH RDW MPV Absolute Neuts (auto) Chloride Carbon Dioxide BUN Random Glucose Lactic Acid Magnesium Alkaline Phosphatase B-Natriuretic Peptide Total LDL Cholesterol 109 H Laboratory Results - last 24 hr 03/31/18 03/31/18 04/01/18 20:15 21:20 01:51 WBC RBC Hgb Hct MCV MCH MCHC RDW Plt Count MPV Absolute Neuts (auto) Neutrophils % Lymphocytes % Monocytes % Eosinophils % Basophils % Nucleated RBC % Sodium Potassium Chloride Carbon Dioxide Anion Gap BUN Creatinine Creat Clearance w eGFR POC Glucometer 381 300 Random Glucose Lactic Acid 4.6 H* Calcium Magnesium Total Bilirubin AST ALT Alkaline Phosphatase B-Natriuretic Peptide Total Protein Albumin Triglycerides Cholesterol Total LDL Cholesterol HDL Cholesterol 04/01/18 04/01/18 04/01/18 05:30 06:05 08:15 WBC 14.2 H RBC 3.96 L Hgb 10.0 L Hct 31.2 L MCV 78.9 L MCH 25.3 L MCHC 32.0 RDW 16.2 H Plt Count 333 MPV 7.3 L Absolute Neuts (auto) 11.5 H Neutrophils % 81.3 Lymphocytes % 13.7 Monocytes % 5.0 Eosinophils % 0.0 Basophils % 0.0 Nucleated RBC % 0 Sodium Potassium Chloride Carbon Dioxide Anion Gap BUN Creatinine Creat Clearance w eGFR POC Glucometer 263 Random Glucose Lactic Acid 2.8 H* Calcium Magnesium Total Bilirubin AST ALT Alkaline Phosphatase B-Natriuretic Peptide Total Protein Albumin Triglycerides Cholesterol Total LDL Cholesterol HDL Cholesterol 04/01/18 04/01/18 04/01/18 08:15 13:45 13:45 WBC RBC Hgb Hct MCV MCH MCHC RDW Plt Count MPV Absolute Neuts (auto) Neutrophils % Lymphocytes % Monocytes % Eosinophils % Basophils % Nucleated RBC % Sodium 143 Potassium 4.3 Chloride 112 H Carbon Dioxide 20 L Anion Gap 11 BUN 44 H Creatinine 1.3 Creat Clearance w eGFR 55.58 POC Glucometer Random Glucose 224 H Lactic Acid 4.0 H* Calcium 8.8 Magnesium 3.1 H Total Bilirubin 0.3 AST 21 ALT 41 Alkaline Phosphatase 177 H B-Natriuretic Peptide 1507.1 H Total Protein 7.1 Albumin 3.4 Triglycerides Cholesterol Total LDL Cholesterol HDL Cholesterol 04/01/18 04/01/18 13:45 16:01 WBC RBC Hgb Hct MCV MCH MCHC RDW Plt Count MPV Absolute Neuts (auto) Neutrophils % Lymphocytes % Monocytes % Eosinophils % Basophils % Nucleated RBC % Sodium Potassium Chloride Carbon Dioxide Anion Gap BUN Creatinine Creat Clearance w eGFR POC Glucometer 426 Random Glucose Lactic Acid Calcium Magnesium Total Bilirubin AST ALT Alkaline Phosphatase B-Natriuretic Peptide Total Protein Albumin Triglycerides 110 Cholesterol 183 Total LDL Cholesterol 109 H HDL Cholesterol 59 plan: bgm q4hrs then qid novolog 70/30 bid while on steroids pancrease repeat cmp lactic acid,push fluids
[2018-04-01] MEDS: INSULIN (NOVOLOG MIX 70/30) 100 UNITS/ML MDV SQ SCH (17:04)
[2018-04-01] MEDS ORDERED: morphine SULFATE 4 MG/ML VIAL ONE (17:06)
[2018-04-01] MEDS: MORPHINE SULFATE 2 MG/ML VIAL IVPUSH PRN (17:55)
[2018-04-01] MEDS: ROSUVASTATIN CA 10 MG TABLET (FP) PO SCH (21:16)
[2018-04-01] MEDS: MONTELUKAST NA 10 MG TABLET PO SCH (21:19)
[2018-04-02] MEDS: MORPHINE SULFATE 2 MG/ML VIAL IVPUSH PRN ×4 (00:43→18:38)
[2018-04-02] MEDS: methylPREDNISolone NA SUCC 40 MG/1 ML VIAL IVPUSH SCH ×4 (02:05→17:28)
[2018-04-02 06:16] LABS: HEMATOCRIT 28.5 % (35.4-49); HEMOGLOBIN 9.3 GM/dL (11.7-16.9); MCH 25.3 pg (25.7-33.7); MCHC 32.4 g/dl (32.0-35.9); MEAN CELL VOLUME 78.1 fl (80-96); MEAN PLT VOLUME 7.2 fl (7.5-11.1); PLATELET COUNT 308 K/MM3 (134-434); RBC 3.66 M/mm3 (4.00-5.60); RDW 16.1 % (11.9-15.9)
[2018-04-02] MEDS: INSULIN (LEVEMIR) 100 UNITS/ML UNITS SQ SCH ×2 (06:39→21:22)
[2018-04-02] MEDS: INSULIN SLIDING SCALE (NOVOLOG) 1 VIAL SQ SCH ×5 (06:40→21:22)
[2018-04-02] MEDS: INSULIN (NOVOLOG MIX 70/30) 100 UNITS/ML MDV SQ SCH ×2 (06:40→17:28)
[2018-04-02 07:24] LABS: ALBUMIN 3.1 g/dl (3.4-5.0); ANION GAP 6 MMOL/L (8-16); BILIRUBIN,TOTAL 0.3 mg/dL (0.2-1); BLOOD UREA NITROGEN 42 mg/dL (7-18); CALCIUM 8.3 mg/dL (8.5-10.1); CHLORIDE 110 mmol/L (98-107); CO2 24 mmol/L (21-32); CREATININE 1.2 mg/dL (0.55-1.3); GLUCOSE,RANDOM 184 mg/dL (74-106); POTASSIUM 4.4 mmol/L (3.5-5.1); SGOT/AST 24 U/L (15-37); SGPT/ALT 40 U/L (13-61); SODIUM 140 mmol/L (136-145); TOT PROT 6.6 g/dl (6.4-8.2)
[2018-04-02 07:25] LABS: ALK PHOS 152 U/L (45-117)
[2018-04-02] MEDS ORDERED: PT OWN MED DRAWER 7, Y5N ONE ×4 (08:21→17:26)
[2018-04-02] MEDS: ALBUTEROL SO4 2.5/IPRATROPIUM 0.5 INH SOL 3 ML VIAL.NEB. NEB SCH ×4 (08:45→20:21)
[2018-04-02] MEDS: TAMSULOSIN HCL 0.4 MG CAP PO SCH (09:12)
[2018-04-02] MEDS: AMINO ACIDS/PROTEIN HYDROLYS 30 ML LIQUID.PKT PO SCH ×2 (09:12→17:28)
[2018-04-02] MEDS: AZITHROMYCIN IVPB 500 MG in DEXTROSE 5%-WATER - 250 ML IVPB SCH (09:12)
[2018-04-02] MEDS: LIPASE/PROTEASE/AMYLASE 36,000 UNIT CAPSULE PO SCH ×3 (09:12→17:30)
[2018-04-02] MEDS: FUROSEMIDE 40 MG TABLET (FP) PO SCH (09:14)
[2018-04-02] MEDS: ASPIRIN COATED 81 MG TABLET.EC PO SCH (09:14)
[2018-04-02] MEDS: amLODIPine BESYLATE 5 MG TABLET (FP) PO SCH (09:14)
[2018-04-02] MEDS: RAMIPRIL 5 MG CAPSULE (FP) PO SCH (09:14)
[2018-04-02] MEDS: AMITRIPTYLINE HCL 25 MG TABLET (FP) PO SCH (09:14)
[2018-04-02] MEDS: RANITIDINE HCL 150 MG TABLET (FP) PO SCH ×2 (09:14→21:19)
[2018-04-02] MEDS: CLOPIDOGREL BISULFATE 75 MG TABLET (FP) PO SCH (09:14)
[2018-04-02] MEDS: GABAPENTIN 300 MG CAPSULE (FP) PO SCH ×2 (09:14→21:19)
[2018-04-02] MEDS: FINASTERIDE 5 MG TABLET (FP) PO SCH (09:14)
[2018-04-02] MEDS: HEPARIN NA (PORCINE) 5,000 UNITS/ML 1ML VIAL SQ SCH ×2 (09:15→21:19)
[2018-04-02] MEDS: POLYETHYLENE GLYCOL 3350 119 GM BTL PO SCH ×2 (09:15→21:27)
[2018-04-02] MEDS: BUDESONIDE/FORMETEROL FUMARATE 160/4.5 mcg INHALER IH SCH (09:16)
[2018-04-02] MEDS: EZETIMIBE 10 MG TABLET (FP) PO SCH (09:16)
--- NOTE | 2018-04-02 09:58 | PN ---
Progress Note, Physician History of Present Illness: pulmonary alert,feeling better,less dyspneic - Current Medication List Current Medications: Active Medications Albuterol/Ipratropium (Duoneb -) 1 amp NEB RQID [facility] Last Admin: 04/02/18 08:45 Dose: 1 amp Amino Acids (Prosource No Carb Liquid Pkt) 30 ml PO BID@0800,1730 [facility] Last Admin: 04/02/18 09:12 Dose: 30 ml Amitriptyline HCl (Elavil -) 25 mg PO DAILY [facility] Last Admin: 04/02/18 09:14 Dose: 25 mg Amlodipine Besylate (Norvasc -) 5 mg PO DAILY [facility] Last Admin: 04/02/18 09:14 Dose: 5 mg Aspirin (Ecotrin -) 81 mg PO DAILY [facility] Last Admin: 04/02/18 09:14 Dose: 81 mg Budesonide/Formoterol Fumarate (Symbicort 160/4.5mcg -) 1 puff IH DAILY [facility] Last Admin: 04/02/18 09:16 Dose: 1 puff Clopidogrel Bisulfate (Plavix -) 75 mg PO DAILY [facility] Last Admin: 04/02/18 09:14 Dose: 75 mg Diazepam (Valium -) 5 mg PO Q12H PRN PRN Reason: back spasms Last Admin: 04/01/18 00:30 Dose: 5 mg Ezetimibe (Zetia -) 10 mg PO DAILY [facility] Last Admin: 04/02/18 09:16 Dose: 10 mg Finasteride (Proscar -) 5 mg PO DAILY [facility] Last Admin: 04/02/18 09:14 Dose: 5 mg Furosemide (Lasix -) 40 mg PO DAILY [facility] Last Admin: 04/02/18 09:14 Dose: 40 mg Gabapentin (Neurontin -) 300 mg PO BID [facility] Last Admin: 04/02/18 09:14 Dose: 300 mg Heparin Sodium (Porcine) (Heparin -) 5,000 unit SQ BID [facility] Last Admin: 04/02/18 09:15 Dose: 5,000 unit Hydromorphone HCl (Dilaudid -) 4 mg PO Q4H PRN PRN Reason: PAIN LEVEL 7 - 10 Last Admin: 04/02/18 09:14 Dose: 4 mg Ceftriaxone Sodium 500 mg/ (Dextrose) 50 mls @ 100 mls/hr IVPB DAILY [facility] Last Admin: 04/01/18 09:27 Dose: Not Given Azithromycin 500 mg/ Dextrose 250 mls @ 250 mls/hr IVPB DAILY [facility] Stop: 04/04/18 10:59 Last Admin: 04/02/18 09:12 Dose: 250 mls/hr Insulin Aspart (Novolog Mix 70/30 Vial) 40 units SQ BIDAC [facility] Last Admin: 04/02/18 06:40 Dose: 40 units Insulin Aspart (Novolog Vial Sliding Scale -) 1 vial SQ ACHS [facility]; Protocol Last Admin: 04/02/18 06:40 Dose: 10 units Insulin Detemir (Levemir Vial) 35 units SQ BID@0700,2200 [facility] Last Admin: 04/02/18 06:39 Dose: 35 units Methylprednisolone Sodium Succinate (Solu-Medrol -) 60 mg IVPUSH Q8H-IV [facility] Last Admin: 04/02/18 09:13 Dose: 60 mg Montelukast Sodium (Singulair -) 10 mg PO HS [facility] Last Admin: 04/01/18 21:19 Dose: 10 mg Morphine Sulfate (Morphine Sulfate) 1 mg IVPUSH Q6H PRN PRN Reason: PAIN LEVEL 7 - 10 Last Admin: 04/02/18 06:49 Dose: 1 mg Non-Formulary Medication (Mesalamine [Pentasa]) 500 mg PO DAILY [facility] Pancrelipase (Creon Dr 36,000 Units Capsule) 1 cap PO TIDCM [facility] Last Admin: 04/02/18 09:12 Dose: 1 cap Polyethylene Glycol (Miralax (For Daily Use) -) 17 gm PO BID [facility] Last Admin: 04/02/18 09:15 Dose: Not Given Ramipril (Altace -) 10 mg PO DAILY [facility] Last Admin: 04/02/18 09:14 Dose: 10 mg Ranitidine HCl (Zantac -) 150 mg PO BID [facility] Last Admin: 04/02/18 09:14 Dose: 150 mg Rosuvastatin Calcium (Crestor -) 10 mg PO HS [facility] Last Admin: 04/01/18 21:16 Dose: 10 mg Tamsulosin HCl (Flomax -) 0.4 mg PO DAILY@0830 [facility] Last Admin: 04/02/18 09:12 Dose: 0.4 mg - Objective Vital Signs: Vital Signs Temperature 98.1 F 04/02/18 06:00 Pulse Rate 90 04/02/18 06:00 Respiratory Rate 20 04/02/18 09:00 Blood Pressure 139/86 04/02/18 06:00 O2 Sat by Pulse Oximetry (%) 100 04/02/18 09:00 Constitutional: Yes: Well Nourished, Calm Eyes: Yes: WNL HENT: Yes: WNL Neck: Yes: Supple (trach) Cardiovascular: Yes: Regular Rate and Rhythm, S1, S2 Respiratory: Yes: Wheezes (scattered stewart wheezes) Gastrointestinal: Yes: Normal Bowel Sounds, Soft Extremities: Yes: WNL Edema: No Labs: CBC, BMP 04/02/18 05:30 04/02/18 05:30 INR, PTT INR 1.04 (0.83-1.09) 03/30/18 09:39 Assessment/Plan Problem List - Problems (1) Asthma exacerbation Code(s): J45.901 - UNSPECIFIED ASTHMA WITH (ACUTE) EXACERBATION (2) Acute bronchitis Code(s): J20.9 - ACUTE BRONCHITIS, UNSPECIFIED (3) Chronic pain Code(s): G89.29 - OTHER CHRONIC PAIN Qualifiers: Chronic pain type: chronic pain syndrome Qualified Code(s): G89.4 - Chronic pain syndrome (4) Chronic pancreatitis Code(s): K86.1 - OTHER CHRONIC PANCREATITIS Qualifiers: Pancreatitis type: unspecified pancreatitis type Qualified Code(s): K86.1 - Other chronic pancreatitis (5) Coronary artery disease Code(s): I25.10 - ATHSCL HEART DISEASE OF [place] CORONARY ARTERY W/O ANG PCTRS (6) Diabetes mellitus Code(s): E11.9 - TYPE 2 DIABETES MELLITUS WITHOUT COMPLICATIONS Qualifiers: Diabetes mellitus type: type 2 Diabetes mellitus complication detail: with unspecified neuropathy (7) Hyperlipidemia Code(s): E78.5 - HYPERLIPIDEMIA, UNSPECIFIED (8) Hypertension Code(s): I10 - ESSENTIAL (PRIMARY) HYPERTENSION Qualifiers: Hypertension type: essential hypertension Qualified Code(s): I10 - Essential (primary) hypertension Assessment/Plan Acute Asthma Exacerbation slowly improving Acute Bronchitis vs r/o Pneumonia Lactic Acidosis Obstructive Sleep Apnea s/p tracheostomy CAD s/p CABG HTN DM Hyperlipidemia Chronic Back Pain Opiate Dependence - IV medrol taper - inhaled bronchodilators standing and PRN - monitor peak flow - O2 to keep SpO2>90% - uncap tracheostomy when sleeping - glucose control while on systemic steroids - DVT prophylaxis DR VANESSA
[2018-04-02] MEDS: CEFTRIAXONE 500 MG in DEXTROSE 5%-WATER - 50 ML IVPB SCH (12:19)
--- NOTE | 2018-04-02 15:40 | EKG ---
Test Reason : Blood Pressure : / mmHG Vent. Rate : 097 BPM Atrial Rate : 097 BPM P-R Int : 184 ms QRS Dur : 080 ms QT Int : 366 ms P-R-T Axes : 029 009 022 degrees QTc Int : 464 ms POOR DATA QUALITY, INTERPRETATION MAY BE ADVERSELY AFFECTED NORMAL SINUS RHYTHM CANNOT RULE OUT INFERIOR INFARCT , AGE UNDETERMINED ABNORMAL ECG WHEN COMPARED WITH ECG OF 30-MAR-2018 09:02, MINIMAL CRITERIA FOR INFERIOR INFARCT ARE NOW PRESENT Confirmed by MD Popeye, Terell ([id number]) on 04/02/2018 3:39:47 PM Referred By: Confirmed By:Terell Nye MD
--- NOTE | 2018-04-02 17:00 | PN ---
Progress Note, Physician Chief Complaint: Upper respiratory infection COPD exacerbation History of Present Illness: NAD breathing improved Seen by Pulmonary on IV abx - Current Medication List Current Medications: Active Medications Albuterol/Ipratropium (Duoneb -) 1 amp NEB RQID [facility] Last Admin: 04/02/18 16:53 Dose: 1 amp Amino Acids (Prosource No Carb Liquid Pkt) 30 ml PO BID@0800,1730 [facility] Last Admin: 04/02/18 09:12 Dose: 30 ml Amitriptyline HCl (Elavil -) 25 mg PO DAILY [facility] Last Admin: 04/02/18 09:14 Dose: 25 mg Amlodipine Besylate (Norvasc -) 5 mg PO DAILY [facility] Last Admin: 04/02/18 09:14 Dose: 5 mg Aspirin (Ecotrin -) 81 mg PO DAILY [facility] Last Admin: 04/02/18 09:14 Dose: 81 mg Budesonide/Formoterol Fumarate (Symbicort 160/4.5mcg -) 1 puff IH DAILY [facility] Last Admin: 04/02/18 09:16 Dose: 1 puff Clopidogrel Bisulfate (Plavix -) 75 mg PO DAILY [facility] Last Admin: 04/02/18 09:14 Dose: 75 mg Diazepam (Valium -) 5 mg PO Q12H PRN PRN Reason: back spasms Last Admin: 04/01/18 00:30 Dose: 5 mg Ezetimibe (Zetia -) 10 mg PO DAILY [facility] Last Admin: 04/02/18 09:16 Dose: 10 mg Finasteride (Proscar -) 5 mg PO DAILY [facility] Last Admin: 04/02/18 09:14 Dose: 5 mg Furosemide (Lasix -) 40 mg PO DAILY [facility] Last Admin: 04/02/18 09:14 Dose: 40 mg Gabapentin (Neurontin -) 300 mg PO BID [facility] Last Admin: 04/02/18 09:14 Dose: 300 mg Heparin Sodium (Porcine) (Heparin -) 5,000 unit SQ BID [facility] Last Admin: 04/02/18 09:15 Dose: 5,000 unit Hydromorphone HCl (Dilaudid -) 4 mg PO Q4H PRN PRN Reason: PAIN LEVEL 7 - 10 Last Admin: 04/02/18 16:05 Dose: 4 mg Ceftriaxone Sodium 500 mg/ (Dextrose) 50 mls @ 100 mls/hr IVPB DAILY [facility] Last Admin: 04/02/18 12:19 Dose: 100 mls/hr Azithromycin 500 mg/ Dextrose 250 mls @ 250 mls/hr IVPB DAILY [facility] Stop: 04/04/18 10:59 Last Admin: 04/02/18 09:12 Dose: 250 mls/hr Insulin Aspart (Novolog Mix 70/30 Vial) 40 units SQ BIDAC [facility] Last Admin: 04/02/18 06:40 Dose: 40 units Insulin Aspart (Novolog Vial Sliding Scale -) 1 vial SQ ACHS [facility]; Protocol Last Admin: 04/02/18 12:02 Dose: 8 units Insulin Detemir (Levemir Vial) 35 units SQ BID@0700,2200 [facility] Last Admin: 04/02/18 06:39 Dose: 35 units Methylprednisolone Sodium Succinate (Solu-Medrol -) 40 mg IVPUSH Q8H-IV [facility] Last Admin: 04/02/18 11:01 Dose: Not Given Montelukast Sodium (Singulair -) 10 mg PO [facility] Last Admin: 04/01/18 21:19 Dose: 10 mg Morphine Sulfate (Morphine Sulfate) 1 mg IVPUSH Q6H PRN PRN Reason: PAIN LEVEL 7 - 10 Last Admin: 04/02/18 12:51 Dose: 1 mg Non-Formulary Medication (Mesalamine [Pentasa]) 500 mg PO DAILY [facility] Pancrelipase (Creon Dr 36,000 Units Capsule) 1 cap PO TIDCM [facility] Last Admin: 04/02/18 12:11 Dose: 1 cap Polyethylene Glycol (Miralax (For Daily Use) -) 17 gm PO BID [facility] Last Admin: 04/02/18 09:15 Dose: Not Given Ramipril (Altace -) 10 mg PO DAILY [facility] Last Admin: 04/02/18 09:14 Dose: 10 mg Ranitidine HCl (Zantac -) 150 mg PO BID [facility] Last Admin: 04/02/18 09:14 Dose: 150 mg Rosuvastatin Calcium (Crestor -) 10 mg PO HS [facility] Last Admin: 04/01/18 21:16 Dose: 10 mg Tamsulosin HCl (Flomax -) 0.4 mg PO DAILY@0830 [facility] Last Admin: 04/02/18 09:12 Dose: 0.4 mg - Objective Vital Signs: Vital Signs Temperature 98.1 F 04/02/18 14:00 Pulse Rate 90 04/02/18 14:00 Respiratory Rate 20 04/02/18 09:00 Blood Pressure 142/79 04/02/18 14:00 O2 Sat by Pulse Oximetry (%) 100 04/02/18 09:00 Constitutional: Yes: Well Nourished, No Distress, Calm Cardiovascular: Yes: Regular Rate and Rhythm Respiratory: Yes: Regular, On Nasal O2, SOB on Exertion Gastrointestinal: Yes: Normal Bowel Sounds, Soft Musculoskeletal: Yes: Muscle Weakness Extremities: Yes: WNL Edema: Yes Edema: LLE: 1+, RLE: 1+ Peripheral Pulses WNL: Yes Neurological: Yes: Alert, Oriented Psychiatric: Yes: Alert, Oriented Labs: CBC, BMP 04/02/18 05:30 04/02/18 05:30 INR, PTT INR 1.04 (0.83-1.09) 03/30/18 09:39 Problem List - Problems (1) Acute bronchitis Assessment/Plan: -Pulmonary consult on board -IV abx -nasal O2 -bronchodilator -tapering IV medrol Code(s): J20.9 - ACUTE BRONCHITIS, UNSPECIFIED (2) Asthma exacerbation in COPD Code(s): J44.1 - CHRONIC OBSTRUCTIVE PULMONARY DISEASE W (ACUTE) EXACERBATION; J45.901 - UNSPECIFIED ASTHMA WITH (ACUTE) EXACERBATION (3) Diabetes mellitus Assessment/Plan: -A1c 7.0 -BGM ACHS -diabetic diet -RD consult -Insulin: levemir + novolog Code(s): E11.9 - TYPE 2 DIABETES MELLITUS WITHOUT COMPLICATIONS Qualifiers: Diabetes mellitus type: type 2 Diabetes mellitus complication detail: with unspecified neuropathy (4) Anemia Assessment/Plan: -stable -Check iron profile, thyroid profile, B 12, folate and stool OB Code(s): D64.9 - ANEMIA, UNSPECIFIED (5) Hx of CABG Code(s): Z95.1 - PRESENCE OF AORTOCORONARY BYPASS GRAFT (6) Cervical radiculopathy Code(s): M54.12 - RADICULOPATHY, CERVICAL REGION (7) Chronic back pain Code(s): M54.9 - DORSALGIA, UNSPECIFIED; G89.29 - OTHER CHRONIC PAIN Qualifiers: Assessment/Plan see problem list
[2018-04-02] MEDS: MONTELUKAST NA 10 MG TABLET PO SCH (21:19)
[2018-04-02] MEDS: diazePAM 5 MG TABLET PO PRN (21:19)
[2018-04-02] MEDS: ROSUVASTATIN CA 10 MG TABLET (FP) PO SCH (21:19)
[2018-04-03] MEDS: MORPHINE SULFATE 2 MG/ML VIAL IVPUSH PRN ×2 (01:05→08:40)
[2018-04-03] MEDS: methylPREDNISolone NA SUCC 40 MG/1 ML VIAL IVPUSH SCH ×3 (01:19→16:59)
[2018-04-03 06:15] LABS: BASO % 0.1 % (0-2.0); HEMATOCRIT 29.9 % (35.4-49); HEMOGLOBIN 9.8 GM/dL (11.7-16.9); LYMPH % 19.8 % (8-40); MCH 25.6 pg (25.7-33.7); MCHC 32.7 g/dl (32.0-35.9); MEAN CELL VOLUME 78.4 fl (80-96); MEAN PLT VOLUME 7.2 fl (7.5-11.1); MONO % 9.7 % (3.8-10.2); NEUT % 70.4 % (42.8-82.8); PLATELET COUNT 305 K/MM3 (134-434); RBC 3.81 M/mm3 (4.00-5.60); WHITE BLOOD COUNT 9.7 K/mm3 (4.0-10.0)
[2018-04-03] MEDS: INSULIN (NOVOLOG MIX 70/30) 100 UNITS/ML MDV SQ SCH ×2 (06:15→16:58)
[2018-04-03] MEDS: INSULIN (LEVEMIR) 100 UNITS/ML UNITS SQ SCH ×2 (06:16→21:32)
[2018-04-03] MEDS: INSULIN SLIDING SCALE (NOVOLOG) 1 VIAL SQ SCH ×4 (06:16→21:34)
[2018-04-03 08:01] LABS: ALBUMIN 3.1 g/dl (3.4-5.0); ALK PHOS 145 U/L (45-117); ANION GAP 5 MMOL/L (8-16); BILIRUBIN,TOTAL 0.4 mg/dL (0.2-1); BLOOD UREA NITROGEN 33 mg/dL (7-18); CALCIUM 8.4 mg/dL (8.5-10.1); CHLORIDE 108 mmol/L (98-107); CO2 27 mmol/L (21-32); CREATININE 1.1 mg/dL (0.55-1.3); GLUCOSE,RANDOM 85 mg/dL (74-106); POTASSIUM 4.2 mmol/L (3.5-5.1); SGOT/AST 32 U/L (15-37); SGPT/ALT 48 U/L (13-61); SODIUM 140 mmol/L (136-145); TOT PROT 6.4 g/dl (6.4-8.2)
[2018-04-03] MEDS: ALBUTEROL SO4 2.5/IPRATROPIUM 0.5 INH SOL 3 ML VIAL.NEB. NEB SCH ×4 (08:13→21:08)
[2018-04-03] MEDS ORDERED: PT OWN MED DRAWER 7, Y5N ONE ×3 (08:35→16:56)
[2018-04-03] MEDS: TAMSULOSIN HCL 0.4 MG CAP PO SCH (08:40)
[2018-04-03] MEDS: LIPASE/PROTEASE/AMYLASE 36,000 UNIT CAPSULE PO SCH ×3 (08:40→16:59)
[2018-04-03] MEDS: AMINO ACIDS/PROTEIN HYDROLYS 30 ML LIQUID.PKT PO SCH ×2 (08:40→16:59)
[2018-04-03] MEDS: HEPARIN NA (PORCINE) 5,000 UNITS/ML 1ML VIAL SQ SCH ×2 (09:15→21:32)
[2018-04-03] MEDS: FUROSEMIDE 40 MG TABLET (FP) PO SCH (09:16)
[2018-04-03] MEDS: GABAPENTIN 300 MG CAPSULE (FP) PO SCH ×2 (09:16→21:34)
[2018-04-03] MEDS: FINASTERIDE 5 MG TABLET (FP) PO SCH (09:16)
[2018-04-03] MEDS: ASPIRIN COATED 81 MG TABLET.EC PO SCH (09:16)
[2018-04-03] MEDS: RANITIDINE HCL 150 MG TABLET (FP) PO SCH ×2 (09:16→21:39)
[2018-04-03] MEDS: CLOPIDOGREL BISULFATE 75 MG TABLET (FP) PO SCH (09:16)
[2018-04-03] MEDS: amLODIPine BESYLATE 5 MG TABLET (FP) PO SCH (09:16)
[2018-04-03] MEDS: AMITRIPTYLINE HCL 25 MG TABLET (FP) PO SCH (09:16)
[2018-04-03] MEDS: RAMIPRIL 5 MG CAPSULE (FP) PO SCH (09:16)
[2018-04-03] MEDS: POLYETHYLENE GLYCOL 3350 119 GM BTL PO SCH ×2 (09:17→21:33)
[2018-04-03] MEDS: EZETIMIBE 10 MG TABLET (FP) PO SCH (09:17)
[2018-04-03] MEDS: BUDESONIDE/FORMETEROL FUMARATE 160/4.5 mcg INHALER IH SCH (09:17)
[2018-04-03] MEDS: AZITHROMYCIN IVPB 500 MG in DEXTROSE 5%-WATER - 250 ML IVPB SCH (09:18)
--- NOTE | 2018-04-03 10:10 | PN ---
Progress Note, Physician History of Present Illness: pulmonary alert,feeling better,less congested - Current Medication List Current Medications: Active Medications Albuterol/Ipratropium (Duoneb -) 1 amp NEB RQID [facility] Last Admin: 04/03/18 08:13 Dose: 1 amp Amino Acids (Prosource No Carb Liquid Pkt) 30 ml PO BID@0800,1730 [facility] Last Admin: 04/03/18 08:40 Dose: 30 ml Amitriptyline HCl (Elavil -) 25 mg PO DAILY [facility] Last Admin: 04/03/18 09:16 Dose: 25 mg Amlodipine Besylate (Norvasc -) 5 mg PO DAILY [facility] Last Admin: 04/03/18 09:16 Dose: 5 mg Aspirin (Ecotrin -) 81 mg PO DAILY [facility] Last Admin: 04/03/18 09:16 Dose: 81 mg Budesonide/Formoterol Fumarate (Symbicort 160/4.5mcg -) 1 puff IH DAILY [facility] Last Admin: 04/03/18 09:17 Dose: 1 puff Clopidogrel Bisulfate (Plavix -) 75 mg PO DAILY [facility] Last Admin: 04/03/18 09:16 Dose: 75 mg Diazepam (Valium -) 5 mg PO Q12H PRN PRN Reason: back spasms Last Admin: 04/02/18 21:19 Dose: 5 mg Ezetimibe (Zetia -) 10 mg PO DAILY [facility] Last Admin: 04/03/18 09:17 Dose: 10 mg Finasteride (Proscar -) 5 mg PO DAILY [facility] Last Admin: 04/03/18 09:16 Dose: 5 mg Furosemide (Lasix -) 40 mg PO DAILY [facility] Last Admin: 04/03/18 09:16 Dose: 40 mg Gabapentin (Neurontin -) 300 mg PO BID [facility] Last Admin: 04/03/18 09:16 Dose: 300 mg Heparin Sodium (Porcine) (Heparin -) 5,000 unit SQ BID [facility] Last Admin: 04/03/18 09:15 Dose: 5,000 unit Hydromorphone HCl (Dilaudid -) 4 mg PO Q4H PRN PRN Reason: PAIN LEVEL 7 - 10 Last Admin: 04/03/18 05:45 Dose: 4 mg Ceftriaxone Sodium 500 mg/ (Dextrose) 50 mls @ 100 mls/hr IVPB DAILY [facility] Last Admin: 04/02/18 12:19 Dose: 100 mls/hr Azithromycin 500 mg/ Dextrose 250 mls @ 250 mls/hr IVPB DAILY [facility] Stop: 04/04/18 10:59 Last Admin: 04/03/18 09:18 Dose: 250 mls/hr Insulin Aspart (Novolog Mix 70/30 Vial) 40 units SQ BIDAC [facility] Last Admin: 04/03/18 06:15 Dose: 40 units Insulin Aspart (Novolog Vial Sliding Scale -) 1 vial SQ ACHS [facility]; Protocol Last Admin: 04/03/18 06:16 Dose: Not Given Insulin Detemir (Levemir Vial) 35 units SQ BID@0700,2200 [facility] Last Admin: 04/03/18 06:16 Dose: Not Given Methylprednisolone Sodium Succinate (Solu-Medrol -) 40 mg IVPUSH Q8H-IV [facility] Last Admin: 04/03/18 09:15 Dose: 40 mg Montelukast Sodium (Singulair -) 10 mg PO HS [facility] Last Admin: 04/02/18 21:19 Dose: 10 mg Morphine Sulfate (Morphine Sulfate) 1 mg IVPUSH Q6H PRN PRN Reason: PAIN LEVEL 7 - 10 Last Admin: 04/03/18 08:40 Dose: 1 mg Non-Formulary Medication (Mesalamine [Pentasa]) 500 mg PO DAILY [facility] Pancrelipase (Creon Dr 36,000 Units Capsule) 1 cap PO TIDCM [facility] Last Admin: 04/03/18 08:40 Dose: 1 cap Polyethylene Glycol (Miralax (For Daily Use) -) 17 gm PO BID [facility] Last Admin: 04/03/18 09:17 Dose: Not Given Ramipril (Altace -) 10 mg PO DAILY [facility] Last Admin: 04/03/18 09:16 Dose: 10 mg Ranitidine HCl (Zantac -) 150 mg PO BID [facility] Last Admin: 04/03/18 09:16 Dose: 150 mg Rosuvastatin Calcium (Crestor -) 10 mg PO HS [facility] Last Admin: 04/02/18 21:19 Dose: 10 mg Tamsulosin HCl (Flomax -) 0.4 mg PO DAILY@0830 [facility] Last Admin: 04/03/18 08:40 Dose: 0.4 mg - Objective Vital Signs: Vital Signs Temperature 98 F 04/03/18 06:00 Pulse Rate 81 04/03/18 06:00 Respiratory Rate 18 04/03/18 06:00 Blood Pressure 152/84 04/03/18 06:00 O2 Sat by Pulse Oximetry (%) 98 04/02/18 21:00 Constitutional: Yes: Well Nourished, Calm Eyes: Yes: WNL HENT: Yes: WNL Neck: Yes: Supple (trach) Cardiovascular: Yes: Regular Rate and Rhythm, S1, S2 Respiratory: Yes: Wheezes (less wheezes bilaterally) Gastrointestinal: Yes: Normal Bowel Sounds, Soft Extremities: Yes: WNL Edema: No Labs: CBC, BMP 04/03/18 05:03 04/03/18 05:03 INR, PTT INR 1.04 (0.83-1.09) 03/30/18 09:39 Assessment/Plan Problem List - Problems (1) Asthma exacerbation Code(s): J45.901 - UNSPECIFIED ASTHMA WITH (ACUTE) EXACERBATION (2) Acute bronchitis Code(s): J20.9 - ACUTE BRONCHITIS, UNSPECIFIED (3) Chronic pain Code(s): G89.29 - OTHER CHRONIC PAIN Qualifiers: Chronic pain type: chronic pain syndrome Qualified Code(s): G89.4 - Chronic pain syndrome (4) Chronic pancreatitis Code(s): K86.1 - OTHER CHRONIC PANCREATITIS Qualifiers: Pancreatitis type: unspecified pancreatitis type Qualified Code(s): K86.1 - Other chronic pancreatitis (5) Coronary artery disease Code(s): I25.10 - ATHSCL HEART DISEASE OF [place] CORONARY ARTERY W/O ANG PCTRS (6) Diabetes mellitus Code(s): E11.9 - TYPE 2 DIABETES MELLITUS WITHOUT COMPLICATIONS Qualifiers: Diabetes mellitus type: type 2 Diabetes mellitus complication detail: with unspecified neuropathy (7) Hyperlipidemia Code(s): E78.5 - HYPERLIPIDEMIA, UNSPECIFIED (8) Hypertension Code(s): I10 - ESSENTIAL (PRIMARY) HYPERTENSION Qualifiers: Hypertension type: essential hypertension Qualified Code(s): I10 - Essential (primary) hypertension Assessment/Plan Acute Asthma Exacerbation slowly improving Acute Bronchitis vs r/o Pneumonia Lactic Acidosis Obstructive Sleep Apnea s/p tracheostomy CAD s/p CABG HTN DM Hyperlipidemia Chronic Back Pain Opiate Dependence - IV medrol same dose - inhaled bronchodilators standing and PRN - monitor peak flow - O2 to keep SpO2>90% - uncap tracheostomy when sleeping - glucose control while on systemic steroids - DVT prophylaxis DR VANESSA
[2018-04-03] MEDS: CEFTRIAXONE 500 MG in DEXTROSE 5%-WATER - 50 ML IVPB SCH (12:16)
[2018-04-03] MEDS ORDERED: oxyCODONE HCL 5 MG TABLET PO PRN (13:50)
[2018-04-03] MEDS ORDERED: morphine CARPU-JECT 4 MG/1 ML DISP.SYRIN IVPUSH PRN (13:50)
--- NOTE | 2018-04-03 13:53 | PN ---
Progress Note, Physician Chief Complaint: Upper respiratory infection COPD exacerbation History of Present Illness: NAD breathing improved Seen by Pulmonary on IV abx Others' Prescriptions Patient Name: Rock Cohen Date: 1955 Address: [address] [place] [address] Sex: Male Rx Written Rx Dispensed Drug Quantity Days Supply Prescriber Name 03/23/2018 03/26/2018 nucynta er 150 mg tablet 60 30 Xavier Prince MD 03/23/2018 03/26/2018 oxycodone-acetaminophen 10-325 mg tab 180 15 Xavier Prince MD 03/23/2018 03/26/2018 hydromorphone 4 mg tablet 120 20 Xavier Prince MD 01/16/2018 01/17/2018 oxycontin 20 mg tablet 21 7 Chris Hurtado 01/16/2018 01/17/2018 hydromorphone 4 mg tablet 60 10 Chris Hurtado 12/01/2017 12/01/2017 oxycodone-acetaminophen 10-325 mg tab 180 15 Xavier Prince MD 12/01/2017 12/01/2017 nucynta er 150 mg tablet 60 30 Xavier Prince MD 12/01/2017 12/01/2017 hydromorphone 4 mg tablet 120 20 Xavier Prince MD 10/22/2017 10/23/2017 oxycodone hcl 10 mg tablet 45 15 Irina Duvall - Current Medication List Current Medications: Active Medications Albuterol/Ipratropium (Duoneb -) 1 amp NEB RQID [facility] Last Admin: 04/03/18 12:03 Dose: 1 amp Amino Acids (Prosource No Carb Liquid Pkt) 30 ml PO BID@0800,1730 [facility] Last Admin: 04/03/18 08:40 Dose: 30 ml Amitriptyline HCl (Elavil -) 25 mg PO DAILY [facility] Last Admin: 04/03/18 09:16 Dose: 25 mg Amlodipine Besylate (Norvasc -) 5 mg PO DAILY [facility] Last Admin: 04/03/18 09:16 Dose: 5 mg Aspirin (Ecotrin -) 81 mg PO DAILY [facility] Last Admin: 04/03/18 09:16 Dose: 81 mg Budesonide/Formoterol Fumarate (Symbicort 160/4.5mcg -) 1 puff IH DAILY [facility] Last Admin: 04/03/18 09:17 Dose: 1 puff Clopidogrel Bisulfate (Plavix -) 75 mg PO DAILY [facility] Last Admin: 04/03/18 09:16 Dose: 75 mg Diazepam (Valium -) 5 mg PO Q12H PRN PRN Reason: back spasms Last Admin: 04/02/18 21:19 Dose: 5 mg Ezetimibe (Zetia -) 10 mg PO DAILY [facility] Last Admin: 04/03/18 09:17 Dose: 10 mg Finasteride (Proscar -) 5 mg PO DAILY [facility] Last Admin: 04/03/18 09:16 Dose: 5 mg Furosemide (Lasix -) 40 mg PO DAILY [facility] Last Admin: 04/03/18 09:16 Dose: 40 mg Gabapentin (Neurontin -) 300 mg PO BID [facility] Last Admin: 04/03/18 09:16 Dose: 300 mg Heparin Sodium (Porcine) (Heparin -) 5,000 unit SQ BID [facility] Last Admin: 04/03/18 09:15 Dose: 5,000 unit Hydromorphone HCl (Dilaudid -) 4 mg PO Q4H PRN PRN Reason: PAIN LEVEL 7 - 10 Last Admin: 04/03/18 12:21 Dose: 4 mg Ceftriaxone Sodium 500 mg/ (Dextrose) 50 mls @ 100 mls/hr IVPB DAILY [facility] Last Admin: 04/03/18 12:16 Dose: 100 mls/hr Azithromycin 500 mg/ Dextrose 250 mls @ 250 mls/hr IVPB DAILY [facility] Stop: 04/04/18 10:59 Last Admin: 04/03/18 09:18 Dose: 250 mls/hr Insulin Aspart (Novolog Mix 70/30 Vial) 40 units SQ BIDAC [facility] Last Admin: 04/03/18 06:15 Dose: 40 units Insulin Aspart (Novolog Vial Sliding Scale -) 1 vial SQ ACHS [facility]; Protocol Last Admin: 04/03/18 12:17 Dose: 8 units Insulin Detemir (Levemir Vial) 35 units SQ BID@0700,2200 [facility] Last Admin: 04/03/18 06:16 Dose: Not Given Methylprednisolone Sodium Succinate (Solu-Medrol -) 40 mg IVPUSH Q8H-IV [facility] Last Admin: 04/03/18 09:15 Dose: 40 mg Montelukast Sodium (Singulair -) 10 mg PO [facility] Last Admin: 04/02/18 21:19 Dose: 10 mg Morphine Sulfate (Morphine Sulfate) 1 mg IVPUSH Q6H PRN PRN Reason: PAIN LEVEL 7 - 10 Last Admin: 04/03/18 08:40 Dose: 1 mg Non-Formulary Medication (Mesalamine [Pentasa]) 500 mg PO DAILY [facility] Pancrelipase (Creon Dr 36,000 Units Capsule) 1 cap PO TIDCM [facility] Last Admin: 04/03/18 12:17 Dose: 1 cap Polyethylene Glycol (Miralax (For Daily Use) -) 17 gm PO BID [facility] Last Admin: 04/03/18 09:17 Dose: Not Given Ramipril (Altace -) 10 mg PO DAILY [facility] Last Admin: 04/03/18 09:16 Dose: 10 mg Ranitidine HCl (Zantac -) 150 mg PO BID [facility] Last Admin: 04/03/18 09:16 Dose: 150 mg Rosuvastatin Calcium (Crestor -) 10 mg PO [facility] Last Admin: 04/02/18 21:19 Dose: 10 mg Tamsulosin HCl (Flomax -) 0.4 mg PO DAILY@0830 [facility] Last Admin: 04/03/18 08:40 Dose: 0.4 mg - Objective Vital Signs: Vital Signs Temperature 98.3 F 04/03/18 11:35 Pulse Rate 92 H 04/03/18 11:35 Respiratory Rate 20 04/03/18 11:35 Blood Pressure 146/91 04/03/18 11:35 O2 Sat by Pulse Oximetry (%) 98 04/03/18 09:00 Constitutional: Yes: Well Nourished, No Distress, Calm Cardiovascular: Yes: Regular Rate and Rhythm Respiratory: Yes: Regular Gastrointestinal: Yes: Normal Bowel Sounds, Soft, Abdomen, Obese Musculoskeletal: Yes: Back Pain (CHRONIC,) Extremities: Yes: WNL Edema: No Peripheral Pulses WNL: Yes Neurological: Yes: Alert, Oriented Psychiatric: Yes: Alert, Oriented Labs: CBC, BMP 04/03/18 05:03 04/03/18 05:03 INR, PTT INR 1.04 (0.83-1.09) 03/30/18 09:39 Problem List - Problems (1) Acute bronchitis Assessment/Plan: -Pulmonary consult on board -IV abx -nasal O2 -bronchodilator -tapering IV medrol Code(s): J20.9 - ACUTE BRONCHITIS, UNSPECIFIED (2) Asthma exacerbation in COPD Code(s): J44.1 - CHRONIC OBSTRUCTIVE PULMONARY DISEASE W (ACUTE) EXACERBATION; J45.901 - UNSPECIFIED ASTHMA WITH (ACUTE) EXACERBATION (3) Diabetes mellitus Assessment/Plan: -A1c 7.0 -BGM ACHS -diabetic diet -RD consult -Insulin: levemir + novolog Code(s): E11.9 - TYPE 2 DIABETES MELLITUS WITHOUT COMPLICATIONS Qualifiers: Diabetes mellitus type: type 2 Diabetes mellitus complication detail: with unspecified neuropathy (4) Anemia Assessment/Plan: -stable -Check iron profile, thyroid profile, B 12, folate and stool OB Code(s): D64.9 - ANEMIA, UNSPECIFIED (5) Hx of CABG Code(s): Z95.1 - PRESENCE OF AORTOCORONARY BYPASS GRAFT (6) Cervical radiculopathy Code(s): M54.12 - RADICULOPATHY, CERVICAL REGION (7) Chronic back pain Code(s): M54.9 - DORSALGIA, UNSPECIFIED; G89.29 - OTHER CHRONIC PAIN Qualifiers: Assessment/Plan see problem list
[2018-04-03] MEDS ORDERED: morphine SULFATE 4 MG/ML VIAL ONE (14:12)
--- NOTE | 2018-04-03 18:02 | PN ---
Progress Note (short form) - Note Progress Note: abnormal tfts,dm,copd,asthmatic,pancreatitis,ashd,cad Abnormal Lab Results 04/03/18 04/03/18 05:03 05:03 RBC 3.81 L Hgb 9.8 L Hct 29.9 L MCV 78.4 L MCH 25.6 L RDW 16.0 H MPV 7.2 L Chloride 108 H Anion Gap 5 L BUN 33 H Calcium 8.4 L Alkaline Phosphatase 145 H Albumin 3.1 L Serum Folate 24 H TSH 0.23 L D Free T4 0.67 L Current Medications Generic Name Dose Route Start Last Admin Trade Name Freq PRN Reason Stop Dose Admin Albuterol/Ipratropium 1 amp 03/31/18 20:00 04/03/18 16:27 Duoneb - NEB 1 amp RQID MARK Administration Amino Acids 30 ml 03/30/18 17:30 04/03/18 16:59 Prosource No Carb Liquid Pkt PO 30 ml BID@0800,1730 MARK Administration Amitriptyline HCl 25 mg 03/31/18 10:00 04/03/18 09:16 Elavil - PO 25 mg DAILY MARK Administration Amlodipine Besylate 5 mg 03/31/18 10:00 04/03/18 09:16 Norvasc - PO 5 mg DAILY MARK Administration Aspirin 81 mg 03/31/18 10:00 04/03/18 09:16 Ecotrin - PO 81 mg DAILY MARK Administration Budesonide/Formoterol Fumarate 1 puff 03/31/18 10:00 04/03/18 09:17 Symbicort 160/4.5mcg - IH 1 puff DAILY MARK Administration Clopidogrel Bisulfate 75 mg 03/31/18 10:00 04/03/18 09:16 Plavix - PO 75 mg DAILY MARK Administration Diazepam 5 mg 03/30/18 15:27 04/02/18 21:19 Valium - PO 5 mg Q12H PRN Administration back spasms Ezetimibe 10 mg 03/31/18 10:00 04/03/18 09:17 Zetia - PO 10 mg DAILY MARK Administration Finasteride 5 mg 03/31/18 10:00 04/03/18 09:16 Proscar - PO 5 mg DAILY MARK Administration Furosemide 40 mg 04/01/18 10:00 04/03/18 09:16 Lasix - PO 40 mg DAILY MARK Administration Gabapentin 300 mg 03/30/18 22:00 04/03/18 09:16 Neurontin - PO 300 mg BID MARK Administration Heparin Sodium (Porcine) 5,000 unit 03/30/18 22:00 04/03/18 09:15 Heparin - SQ 5,000 unit BID MARK Administration Hydromorphone HCl 4 mg 03/30/18 22:29 04/03/18 12:21 Dilaudid - PO 4 mg Q4H PRN Administration PAIN LEVEL 7 - 10 Ceftriaxone Sodium 500 mg/ 50 mls @ 100 mls/hr 03/31/18 10:00 04/03/18 12:16 Dextrose IVPB 100 mls/hr DAILY MARK Administration Azithromycin 500 mg/ Dextrose 250 mls @ 250 mls/hr 03/31/18 10:00 04/03/18 09 :18 IVPB 04/04/18 10:59 250 mls/hr DAILY MARK Administration Insulin Aspart 40 units 04/01/18 16:30 04/03/18 16:58 Novolog Mix 70/30 Vial SQ 40 units BIDAC MARK Administration Insulin Aspart 1 vial 04/01/18 22:00 04/03/18 16:58 Novolog Vial Sliding Scale - SQ 8 units ACHS MARK Administration Protocol Insulin Detemir 35 units 04/01/18 16:49 04/03/18 06:16 Levemir Vial SQ Not Given BID@0700,2200 [facility] Methylprednisolone Sodium Succinate 40 mg 04/02/18 09:58 04/03/18 16:59 Solu-Medrol - IVPUSH 40 mg Q8H-IV MARK Administration Montelukast Sodium 10 mg 03/30/18 22:00 04/02/18 21:19 Singulair - PO 10 mg HS MARK Administration Morphine Sulfate 4 mg 04/03/18 14:14 Morphine Sulfate IVPUSH Q4H PRN PAIN LEVEL 6-10 Non-Formulary Medication 500 mg 03/31/18 10:00 Mesalamine [Pentasa] PO DAILY MARK Oxycodone HCl 10 mg 04/03/18 13:50 Roxicodone - PO Q4H PRN PAIN LEVEL 7 - 10 Pancrelipase 1 cap 03/30/18 17:30 04/03/18 16:59 Crekyle Hackett 36,000 Units Capsule PO 1 cap TIDCM MARK Administration Polyethylene Glycol 17 gm 03/30/18 22:00 04/03/18 09:17 Miralax (For Daily Use) - PO Not Given BID MARK Ramipril 10 mg 03/31/18 10:00 04/03/18 09:16 Altace - PO 10 mg DAILY MARK Administration Ranitidine HCl 150 mg 03/30/18 22:00 04/03/18 09:16 Zantac - PO 150 mg BID MARK Administration Rosuvastatin Calcium 10 mg 03/30/18 22:00 04/02/18 21:19 Crestor - PO 10 mg HS MARK Administration Tamsulosin HCl 0.4 mg 03/31/18 08:30 04/03/18 08:40 Flomax - PO 0.4 mg DAILY@0830 MARK Administration impression likely to euthyroid sick syndrome repeat tfts free t4free dialysis ordered Problem List - Problems (1) 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 Code(s): E10.51 - TYPE 1 DIABETES W DIABETIC PERIPHERAL ANGIOPATH W/O GANGRENE; I70.209 - UNSP ATHSCL [place] ARTERIES OF EXTREMITIES, UNSP EXTREMITY (2) Acute adjustment disorder with anxiety Code(s): F43.22 - ADJUSTMENT DISORDER WITH ANXIETY (3) Asthma exacerbation in COPD Code(s): J44.1 - CHRONIC OBSTRUCTIVE PULMONARY DISEASE W (ACUTE) EXACERBATION; J45.901 - UNSPECIFIED ASTHMA WITH (ACUTE) EXACERBATION (4) Bronchitis Code(s): J40 - BRONCHITIS, NOT SPECIFIED ACUTE OR CHRONIC (5) H/O heart artery stent Code(s): Z95.5 - PRESENCE OF CORONARY ANGIOPLASTY IMPLANT AND GRAFT (6) Hx of CABG Code(s): Z95.1 - PRESENCE OF AORTOCORONARY BYPASS GRAFT
[2018-04-03] MEDS: morphine SULFATE 4 MG/ML VIAL IVPUSH PRN (20:26)
[2018-04-03] MEDS: MONTELUKAST NA 10 MG TABLET PO SCH (21:39)
[2018-04-03] MEDS: ROSUVASTATIN CA 10 MG TABLET (FP) PO SCH (21:39)
[2018-04-04] MEDS: methylPREDNISolone NA SUCC 40 MG/1 ML VIAL IVPUSH SCH ×3 (01:11→17:02)
[2018-04-04] MEDS: INSULIN (NOVOLOG MIX 70/30) 100 UNITS/ML MDV SQ SCH ×3 (06:30→16:56)
[2018-04-04] MEDS: INSULIN SLIDING SCALE (NOVOLOG) 1 VIAL SQ SCH ×4 (06:30→22:34)
[2018-04-04] MEDS: INSULIN (LEVEMIR) 100 UNITS/ML UNITS SQ SCH ×2 (06:30→22:33)
[2018-04-04] MEDS: ALBUTEROL SO4 2.5/IPRATROPIUM 0.5 INH SOL 3 ML VIAL.NEB. NEB SCH ×2 (07:34→11:14)
[2018-04-04 08:06] LABS: SERUM IRON SATURATION 43 % (15-55); TOTAL IRON BINDING CAPACITY 304 ug/dL (250-450); UIBC 174 ug/dL (111-343)
[2018-04-04] MEDS ORDERED: INSULIN (NOVOLOG MIX 70/30) 100 UNITS/ML MDV SQ ONE ×2 (08:07→08:34)
[2018-04-04] MEDS ORDERED: PT OWN MED DRAWER 7, Y5N ONE (08:07)
[2018-04-04] MEDS: LIPASE/PROTEASE/AMYLASE 36,000 UNIT CAPSULE PO SCH ×3 (08:11→16:36)
[2018-04-04] MEDS: AMINO ACIDS/PROTEIN HYDROLYS 30 ML LIQUID.PKT PO SCH ×2 (08:12→16:56)
[2018-04-04] MEDS: TAMSULOSIN HCL 0.4 MG CAP PO SCH (08:12)
--- NOTE | 2018-04-04 08:58 | PN ---
Progress Note, Physician - Current Medication List Current Medications: Active Medications Albuterol/Ipratropium (Duoneb -) 1 amp NEB RQID [facility] Last Admin: 04/04/18 07:34 Dose: 1 amp Amino Acids (Prosource No Carb Liquid Pkt) 30 ml PO BID@0800,1730 [facility] Last Admin: 04/04/18 08:12 Dose: 30 ml Amitriptyline HCl (Elavil -) 25 mg PO DAILY [facility] Last Admin: 04/03/18 09:16 Dose: 25 mg Amlodipine Besylate (Norvasc -) 5 mg PO DAILY [facility] Last Admin: 04/03/18 09:16 Dose: 5 mg Aspirin (Ecotrin -) 81 mg PO DAILY [facility] Last Admin: 04/03/18 09:16 Dose: 81 mg Budesonide/Formoterol Fumarate (Symbicort 160/4.5mcg -) 1 puff IH DAILY [facility] Last Admin: 04/03/18 09:17 Dose: 1 puff Clopidogrel Bisulfate (Plavix -) 75 mg PO DAILY [facility] Last Admin: 04/03/18 09:16 Dose: 75 mg Diazepam (Valium -) 5 mg PO Q12H PRN PRN Reason: back spasms Last Admin: 04/02/18 21:19 Dose: 5 mg Ezetimibe (Zetia -) 10 mg PO DAILY [facility] Last Admin: 04/03/18 09:17 Dose: 10 mg Finasteride (Proscar -) 5 mg PO DAILY [facility] Last Admin: 04/03/18 09:16 Dose: 5 mg Furosemide (Lasix -) 40 mg PO DAILY [facility] Last Admin: 04/03/18 09:16 Dose: 40 mg Gabapentin (Neurontin -) 300 mg PO BID [facility] Last Admin: 04/03/18 21:34 Dose: 300 mg Heparin Sodium (Porcine) (Heparin -) 5,000 unit SQ BID [facility] Last Admin: 04/03/18 21:32 Dose: 5,000 unit Hydromorphone HCl (Dilaudid -) 4 mg PO Q4H PRN PRN Reason: PAIN LEVEL 7 - 10 Last Admin: 04/04/18 08:38 Dose: 4 mg Ceftriaxone Sodium 500 mg/ (Dextrose) 50 mls @ 100 mls/hr IVPB DAILY [facility] Last Admin: 04/03/18 12:16 Dose: 100 mls/hr Azithromycin 500 mg/ Dextrose 250 mls @ 250 mls/hr IVPB DAILY [facility] Stop: 04/04/18 10:59 Last Admin: 04/03/18 09:18 Dose: 250 mls/hr Insulin Aspart (Novolog Mix 70/30 Vial) 40 units SQ BIDAC [facility] Last Admin: 04/04/18 08:13 Dose: 40 units Insulin Aspart (Novolog Vial Sliding Scale -) 1 vial SQ ACHS [facility]; Protocol Last Admin: 04/04/18 06:30 Dose: Not Given Insulin Detemir (Levemir Vial) 35 units SQ BID@0700,2200 [facility] Last Admin: 04/04/18 06:30 Dose: Not Given Methylprednisolone Sodium Succinate (Solu-Medrol -) 40 mg IVPUSH Q8H-IV [facility] Last Admin: 04/04/18 01:11 Dose: 40 mg Montelukast Sodium (Singulair -) 10 mg PO HS [facility] Last Admin: 04/03/18 21:39 Dose: 10 mg Morphine Sulfate (Morphine Sulfate) 4 mg IVPUSH Q4H PRN PRN Reason: PAIN LEVEL 6-10 Last Admin: 04/03/18 20:26 Dose: 4 mg Non-Formulary Medication (Mesalamine [Pentasa]) 500 mg PO DAILY [facility] Oxycodone HCl (Roxicodone -) 10 mg PO Q4H PRN PRN Reason: PAIN LEVEL 7 - 10 Pancrelipase (Creon Dr 36,000 Units Capsule) 1 cap PO TIDCM [facility] Last Admin: 04/04/18 08:11 Dose: 1 cap Polyethylene Glycol (Miralax (For Daily Use) -) 17 gm PO BID [facility] Last Admin: 04/03/18 21:33 Dose: Not Given Ramipril (Altace -) 10 mg PO DAILY [facility] Last Admin: 04/03/18 09:16 Dose: 10 mg Ranitidine HCl (Zantac -) 150 mg PO BID [facility] Last Admin: 04/03/18 21:39 Dose: 150 mg Rosuvastatin Calcium (Crestor -) 10 mg PO HS [facility] Last Admin: 04/03/18 21:39 Dose: 10 mg Tamsulosin HCl (Flomax -) 0.4 mg PO DAILY@0830 [facility] Last Admin: 04/04/18 08:12 Dose: 0.4 mg - Objective Vital Signs: Vital Signs Temperature 97.9 F 04/04/18 08:47 Pulse Rate 74 04/04/18 08:47 Respiratory Rate 20 04/04/18 08:50 Blood Pressure 142/70 04/04/18 08:47 O2 Sat by Pulse Oximetry (%) 100 04/04/18 08:50 Labs: CBC, BMP 04/03/18 05:03 04/03/18 05:03 INR, PTT INR 1.04 (0.83-1.09) 03/30/18 09:39 Assessment/Plan - Problems (1) Acute bronchitis Assessment/Plan: -Pulmonary consult on board -IV abx -nasal O2 -bronchodilator -tapering IV medrol Code(s): J20.9 - ACUTE BRONCHITIS, UNSPECIFIED (2) Asthma exacerbation in COPD Code(s): J44.1 - CHRONIC OBSTRUCTIVE PULMONARY DISEASE W (ACUTE) EXACERBATION; J45.901 - UNSPECIFIED ASTHMA WITH (ACUTE) EXACERBATION (3) Diabetes mellitus Assessment/Plan: -A1c 7.0 -BGM ACHS -diabetic diet -RD consult -Insulin: levemir + novolog Code(s): E11.9 - TYPE 2 DIABETES MELLITUS WITHOUT COMPLICATIONS Qualifiers: Diabetes mellitus type: type 2 Diabetes mellitus complication detail: with unspecified neuropathy (4) Anemia Assessment/Plan: -stable -Check iron profile, thyroid profile, B 12, folate and stool OB Code(s): D64.9 - ANEMIA, UNSPECIFIED (5) Hx of CABG Code(s): Z95.1 - PRESENCE OF AORTOCORONARY BYPASS GRAFT (6) Cervical radiculopathy Code(s): M54.12 - RADICULOPATHY, CERVICAL REGION (7) Chronic back pain -S/P Laminectomy -PT Code(s): M54.9 - DORSALGIA, UNSPECIFIED; G89.29 - OTHER CHRONIC PAIN Qualifiers:
[2018-04-04] MEDS: HEPARIN NA (PORCINE) 5,000 UNITS/ML 1ML VIAL SQ SCH ×2 (09:59→22:30)
[2018-04-04] MEDS: GABAPENTIN 300 MG CAPSULE (FP) PO SCH ×2 (10:00→22:30)
[2018-04-04] MEDS: RANITIDINE HCL 150 MG TABLET (FP) PO SCH ×2 (10:00→22:30)
[2018-04-04] MEDS: AMITRIPTYLINE HCL 25 MG TABLET (FP) PO SCH (10:01)
[2018-04-04] MEDS: RAMIPRIL 5 MG CAPSULE (FP) PO SCH (10:01)
[2018-04-04] MEDS: ASPIRIN COATED 81 MG TABLET.EC PO SCH (10:01)
[2018-04-04] MEDS: FUROSEMIDE 40 MG TABLET (FP) PO SCH (10:01)
[2018-04-04] MEDS: FINASTERIDE 5 MG TABLET (FP) PO SCH (10:02)
[2018-04-04] MEDS: POLYETHYLENE GLYCOL 3350 119 GM BTL PO SCH ×2 (10:02→22:30)
[2018-04-04] MEDS: CLOPIDOGREL BISULFATE 75 MG TABLET (FP) PO SCH (10:02)
[2018-04-04] MEDS: amLODIPine BESYLATE 5 MG TABLET (FP) PO SCH (10:02)
[2018-04-04] MEDS: CEFTRIAXONE 500 MG in DEXTROSE 5%-WATER - 50 ML IVPB SCH (10:02)
[2018-04-04] MEDS: EZETIMIBE 10 MG TABLET (FP) PO SCH (10:02)
[2018-04-04] MEDS: AZITHROMYCIN IVPB 500 MG in DEXTROSE 5%-WATER - 250 ML IVPB SCH (10:08)
[2018-04-04] MEDS: BUDESONIDE/FORMETEROL FUMARATE 160/4.5 mcg INHALER IH SCH (10:08)
[2018-04-04] MEDS: morphine SULFATE 4 MG/ML VIAL IVPUSH PRN ×3 (10:14→20:36)
--- NOTE | 2018-04-04 11:05 | PN ---
Progress Note, Physician History of Present Illness: pulmonary alert,still congested - Current Medication List Current Medications: Active Medications Albuterol/Ipratropium (Duoneb -) 1 amp NEB RQID [facility] Last Admin: 04/04/18 07:34 Dose: 1 amp Amino Acids (Prosource No Carb Liquid Pkt) 30 ml PO BID@0800,1730 [facility] Last Admin: 04/04/18 08:12 Dose: 30 ml Amitriptyline HCl (Elavil -) 25 mg PO DAILY [facility] Last Admin: 04/04/18 10:01 Dose: 25 mg Amlodipine Besylate (Norvasc -) 5 mg PO DAILY [facility] Last Admin: 04/04/18 10:02 Dose: 5 mg Aspirin (Ecotrin -) 81 mg PO DAILY [facility] Last Admin: 04/04/18 10:01 Dose: 81 mg Budesonide/Formoterol Fumarate (Symbicort 160/4.5mcg -) 1 puff IH DAILY [facility] Last Admin: 04/04/18 10:08 Dose: 1 puff Clopidogrel Bisulfate (Plavix -) 75 mg PO DAILY [facility] Last Admin: 04/04/18 10:02 Dose: 75 mg Diazepam (Valium -) 5 mg PO Q12H PRN PRN Reason: back spasms Last Admin: 04/02/18 21:19 Dose: 5 mg Ezetimibe (Zetia -) 10 mg PO DAILY [facility] Last Admin: 04/04/18 10:02 Dose: 10 mg Finasteride (Proscar -) 5 mg PO DAILY [facility] Last Admin: 04/04/18 10:02 Dose: 5 mg Furosemide (Lasix -) 40 mg PO DAILY [facility] Last Admin: 04/04/18 10:01 Dose: 40 mg Gabapentin (Neurontin -) 300 mg PO BID [facility] Last Admin: 04/04/18 10:00 Dose: 300 mg Heparin Sodium (Porcine) (Heparin -) 5,000 unit SQ BID [facility] Last Admin: 04/04/18 09:59 Dose: 5,000 unit Hydromorphone HCl (Dilaudid -) 4 mg PO Q4H PRN PRN Reason: PAIN LEVEL 7 - 10 Last Admin: 04/04/18 08:38 Dose: 4 mg Ceftriaxone Sodium 500 mg/ (Dextrose) 50 mls @ 100 mls/hr IVPB DAILY [facility] Last Admin: 04/04/18 10:02 Dose: 100 mls/hr Insulin Aspart (Novolog Mix 70/30 Vial) 40 units SQ BIDAC [facility] Last Admin: 04/04/18 08:13 Dose: 40 units Insulin Aspart (Novolog Vial Sliding Scale -) 1 vial SQ ACHS [facility]; Protocol Last Admin: 04/04/18 06:30 Dose: Not Given Insulin Detemir (Levemir Vial) 35 units SQ BID@0700,2200 [facility] Last Admin: 04/04/18 06:30 Dose: Not Given Methylprednisolone Sodium Succinate (Solu-Medrol -) 40 mg IVPUSH Q8H-IV [facility] Last Admin: 04/04/18 09:59 Dose: 40 mg Montelukast Sodium (Singulair -) 10 mg PO HS [facility] Last Admin: 04/03/18 21:39 Dose: 10 mg Morphine Sulfate (Morphine Sulfate) 4 mg IVPUSH Q4H PRN PRN Reason: PAIN LEVEL 6-10 Last Admin: 04/04/18 10:14 Dose: 4 mg Non-Formulary Medication (Mesalamine [Pentasa]) 500 mg PO DAILY [facility] Oxycodone HCl (Roxicodone -) 10 mg PO Q4H PRN PRN Reason: PAIN LEVEL 7 - 10 Pancrelipase (Creon Dr 36,000 Units Capsule) 1 cap PO TIDCM [facility] Last Admin: 04/04/18 08:11 Dose: 1 cap Polyethylene Glycol (Miralax (For Daily Use) -) 17 gm PO BID [facility] Last Admin: 04/04/18 10:02 Dose: Not Given Ramipril (Altace -) 10 mg PO DAILY [facility] Last Admin: 04/04/18 10:01 Dose: 10 mg Ranitidine HCl (Zantac -) 150 mg PO BID [facility] Last Admin: 04/04/18 10:00 Dose: 150 mg Rosuvastatin Calcium (Crestor -) 10 mg PO HS [facility] Last Admin: 04/03/18 21:39 Dose: 10 mg Tamsulosin HCl (Flomax -) 0.4 mg PO DAILY@0830 [facility] Last Admin: 04/04/18 08:12 Dose: 0.4 mg - Objective Vital Signs: Vital Signs Temperature 97.9 F 04/04/18 08:47 Pulse Rate 74 04/04/18 08:47 Respiratory Rate 20 04/04/18 08:50 Blood Pressure 142/70 04/04/18 08:47 O2 Sat by Pulse Oximetry (%) 100 04/04/18 08:50 Constitutional: Yes: Well Nourished, Calm Eyes: Yes: WNL HENT: Yes: WNL Neck: Yes: Supple (trach) Cardiovascular: Yes: Regular Rate and Rhythm, S1, S2 Respiratory: Yes: Rales (scattered stewart wheezes) Gastrointestinal: Yes: Normal Bowel Sounds, Soft Extremities: Yes: WNL Edema: No Labs: Assessment/Plan Problem List - Problems (1) Asthma exacerbation Code(s): J45.901 - UNSPECIFIED ASTHMA WITH (ACUTE) EXACERBATION (2) Acute bronchitis Code(s): J20.9 - ACUTE BRONCHITIS, UNSPECIFIED (3) Chronic pain Code(s): G89.29 - OTHER CHRONIC PAIN Qualifiers: Chronic pain type: chronic pain syndrome Qualified Code(s): G89.4 - Chronic pain syndrome (4) Chronic pancreatitis Code(s): K86.1 - OTHER CHRONIC PANCREATITIS Qualifiers: Pancreatitis type: unspecified pancreatitis type Qualified Code(s): K86.1 - Other chronic pancreatitis (5) Coronary artery disease Code(s): I25.10 - ATHSCL HEART DISEASE OF [place] CORONARY ARTERY W/O ANG PCTRS (6) Diabetes mellitus Code(s): E11.9 - TYPE 2 DIABETES MELLITUS WITHOUT COMPLICATIONS Qualifiers: Diabetes mellitus type: type 2 Diabetes mellitus complication detail: with unspecified neuropathy (7) Hyperlipidemia Code(s): E78.5 - HYPERLIPIDEMIA, UNSPECIFIED (8) Hypertension Code(s): I10 - ESSENTIAL (PRIMARY) HYPERTENSION Qualifiers: Hypertension type: essential hypertension Qualified Code(s): I10 - Essential (primary) hypertension Assessment/Plan Acute Asthma Exacerbation slowly improving Acute Bronchitis vs r/o Pneumonia Lactic Acidosis Obstructive Sleep Apnea s/p tracheostomy CAD s/p CABG HTN DM Hyperlipidemia Chronic Back Pain Opiate Dependence - IV medrol same dose - inhaled bronchodilators standing and PRN - monitor peak flow - O2 to keep SpO2>90% - uncap tracheostomy when sleeping - glucose control while on systemic steroids - DVT prophylaxis DR VANESSA
[2018-04-04] MEDS ORDERED: INSULIN (NOVOLOG) ASPART 100 UNITS/ML 10ML VIAL ONE (11:50)
--- NOTE | 2018-04-04 12:47 | PN ---
Progress Note, Physician History of Present Illness: The patient is a 62 year old black male with significant history of CAD, [place]--> CABG; s/p coronary stents x 6 (most recently 12/2015),hypertension, hyperlipidemia, chronic pancreatitis, chronic back pain (takes oxycodone), SBO, incarcerated hernia s/p repair x2 (September 2017), H.Pylori, BPH, COPD, bronchial asthma,, tracheostomy in place (unplugs when sleeping for sleep apnea), anxiety , who presents to the ED complaining of one week of intermittent fevers and chills, productive cough, generalized weakness, shortness of breath, and chest tightness. The patient states he feels sweaty one minute and cold the next. He states his cough is productive of beige sputum. He states he has been having chest tightness that radiates to his back which is exacerbated by his cough. He denies blood in his sputum. He denies radiation of chest pain. The patient states he has been using his nebulizers at home every 4 hours with little to no resolve of symptoms. He states he is concerned for pneumonia at this time. He denies any mucus, sputum, or blood from his trach tube. He states he cleans the tube regularly. No travel or sick contacts. - Current Medication List Current Medications: Active Medications Albuterol Sulfate (Ventolin 0.083% Nebulizer Soln -) 1 amp NEB Q4H PRN PRN Reason: SHORT OF BREATH/WHEEZING Amino Acids (Prosource No Carb Liquid Pkt) 30 ml PO BID@0800,1730 [facility] Last Admin: 04/04/18 08:12 Dose: 30 ml Amitriptyline HCl (Elavil -) 25 mg PO DAILY [facility] Last Admin: 04/04/18 10:01 Dose: 25 mg Amlodipine Besylate (Norvasc -) 5 mg PO DAILY [facility] Last Admin: 04/04/18 10:02 Dose: 5 mg Arformoterol Tartrate (Brovana (Restricted To Pulmonology/Resp) -) 1 amp NEB RBID [facility] Aspirin (Ecotrin -) 81 mg PO DAILY [facility] Last Admin: 04/04/18 10:01 Dose: 81 mg Budesonide/Formoterol Fumarate (Symbicort 160/4.5mcg -) 1 puff IH DAILY [facility] Last Admin: 04/04/18 10:08 Dose: 1 puff Clopidogrel Bisulfate (Plavix -) 75 mg PO DAILY [facility] Last Admin: 04/04/18 10:02 Dose: 75 mg Diazepam (Valium -) 5 mg PO Q12H PRN PRN Reason: back spasms Last Admin: 04/02/18 21:19 Dose: 5 mg Ezetimibe (Zetia -) 10 mg PO DAILY [facility] Last Admin: 04/04/18 10:02 Dose: 10 mg Finasteride (Proscar -) 5 mg PO DAILY [facility] Last Admin: 04/04/18 10:02 Dose: 5 mg Furosemide (Lasix -) 40 mg PO DAILY [facility] Last Admin: 04/04/18 10:01 Dose: 40 mg Gabapentin (Neurontin -) 300 mg PO BID [facility] Last Admin: 04/04/18 10:00 Dose: 300 mg Heparin Sodium (Porcine) (Heparin -) 5,000 unit SQ BID [facility] Last Admin: 04/04/18 09:59 Dose: 5,000 unit Hydromorphone HCl (Dilaudid -) 4 mg PO Q4H PRN PRN Reason: PAIN LEVEL 7 - 10 Last Admin: 04/04/18 08:38 Dose: 4 mg Ceftriaxone Sodium 500 mg/ (Dextrose) 50 mls @ 100 mls/hr IVPB DAILY [facility] Last Admin: 04/04/18 10:02 Dose: 100 mls/hr Insulin Aspart (Novolog Mix 70/30 Vial) 40 units SQ BIDAC [facility] Last Admin: 04/04/18 08:13 Dose: 40 units Insulin Aspart (Novolog Vial Sliding Scale -) 1 vial SQ ACHS [facility]; Protocol Last Admin: 04/04/18 11:56 Dose: 12 units Insulin Detemir (Levemir Vial) 35 units SQ BID@0700,2200 [facility] Last Admin: 04/04/18 06:30 Dose: Not Given Methylprednisolone Sodium Succinate (Solu-Medrol -) 40 mg IVPUSH Q8H-IV [facility] Last Admin: 04/04/18 09:59 Dose: 40 mg Montelukast Sodium (Singulair -) 10 mg PO HS [facility] Last Admin: 04/03/18 21:39 Dose: 10 mg Morphine Sulfate (Morphine Sulfate) 4 mg IVPUSH Q4H PRN PRN Reason: PAIN LEVEL 6-10 Last Admin: 09/24/18 10:14 Dose: 4 mg Non-Formulary Medication (Mesalamine [Pentasa]) 500 mg PO DAILY [facility] Oxycodone HCl (Roxicodone -) 10 mg PO Q4H PRN PRN Reason: PAIN LEVEL 7 - 10 Pancrelipase (Creon Dr 36,000 Units Capsule) 1 cap PO TIDCM [facility] Last Admin: 04/04/18 11:59 Dose: 1 cap Polyethylene Glycol (Miralax (For Daily Use) -) 17 gm PO BID [facility] Last Admin: 04/04/18 10:02 Dose: Not Given Ramipril (Altace -) 10 mg PO DAILY [facility] Last Admin: 04/04/18 10:01 Dose: 10 mg Ranitidine HCl (Zantac -) 150 mg PO BID [facility] Last Admin: 04/04/18 10:00 Dose: 150 mg Rosuvastatin Calcium (Crestor -) 10 mg PO HS [facility] Last Admin: 04/03/18 21:39 Dose: 10 mg Tamsulosin HCl (Flomax -) 0.4 mg PO DAILY@0830 [facility] Last Admin: 04/04/18 08:12 Dose: 0.4 mg - Objective Vital Signs: Vital Signs Temperature 97.9 F 04/04/18 08:47 Pulse Rate 74 04/04/18 08:47 Respiratory Rate 20 04/04/18 08:50 Blood Pressure 142/70 04/04/18 08:47 O2 Sat by Pulse Oximetry (%) 100 04/04/18 08:50 Eyes: Yes: WNL, Conjunctiva Clear, EOM Intact HENT: Yes: WNL, Atraumatic, Normocephalic Neck: Yes: WNL, Supple, Trachea Midline Cardiovascular: Yes: WNL, Regular Rate and Rhythm Respiratory: Yes: WNL, Regular, CTA Bilaterally Gastrointestinal: Yes: WNL, Normal Bowel Sounds Genitourinary: Yes: WNL Musculoskeletal: Yes: WNL Extremities: Yes: WNL Edema: No Integumentary: Yes: WNL Neurological: Yes: WNL, Alert, Oriented ...Motor Strength: WNL Psychiatric: Yes: WNL Labs: CBC, BMP 04/03/18 05:03 04/03/18 05:03 INR, PTT INR 1.04 (0.83-1.09) 03/30/18 09:39 Assessment/Plan - Problems (1) Acute bronchitis Assessment/Plan: f/u with oil analyst Code(s): J20.9 - ACUTE BRONCHITIS, UNSPECIFIED (2) Asthma exacerbation in COPD Assessment/Plan: s/p tracehostomy. Hx sleep apnea. Bronchodilators, O2, steroids, antibiotics per oil analyst. Code(s): J44.1 - CHRONIC OBSTRUCTIVE PULMONARY DISEASE W (ACUTE) EXACERBATION; J45.901 - UNSPECIFIED ASTHMA WITH (ACUTE) EXACERBATION (3) Pneumonia Assessment/Plan: on antibiotics; f/u cultures. CXR PA and Lat Code(s): J18.9 - PNEUMONIA, UNSPECIFIED ORGANISM Qualifiers: (4) Acute on chronic diastolic (congestive) heart failure Assessment/Plan: On ramipril, amlodipine, furosemide. F/u BUn/Cr, electrolytes, daily weight, Is and Os. F/u BNP. Code(s): I50.33 - ACUTE ON CHRONIC DIASTOLIC (CONGESTIVE) HEART FAILURE (5) Hx of CABG Assessment/Plan: f/u cardiac hx with pt's commercial pilot, Dr. Bola Elaine. Code(s): Z95.1 - PRESENCE OF AORTOCORONARY BYPASS GRAFT (6) H/O heart artery stent Assessment/Plan: On ASA and clopidogrel. TNI < 0.02 x 3 EKG: sinus tahcycardia initially, with possible old IWMI; repeat today shows normal study. Code(s): Z95.5 - PRESENCE OF CORONARY ANGIOPLASTY IMPLANT AND GRAFT (7) BPH (benign prostatic hyperplasia) Assessment/Plan: On Proscar. Code(s): N40.0 - BENIGN PROSTATIC HYPERPLASIA WITHOUT LOWER URINRY TRACT SYMP (8) Hyperlipidemia Assessment/Plan: on zetia and statin. F/u lipid level (total cholesterol < 100 mg/dL 11/2017); ideally, keep LDL below 70 mg/dL. Code(s): E78.5 - HYPERLIPIDEMIA, UNSPECIFIED (9) Atypical chest pain Assessment/Plan: TNI < 0.02 x 3. EKG: sinus tachycardia; f/u repeat today (HR generally WNL over the past 24 hours). Stress MIBI 07/2016: mild periinfarct inderior wall ischemia. ECHO 12/2017: normal LVEF; mild LVH; mild LAE; trace-mild MR and TR. Discussed pt with his commercial pilot, Dr. Elaine. Pt is seen frequently for chest pain, which is often secondary to pulmonary issues. Aggressive medical managament of CAD with nitrates, ASA and cloopidogrel, statin + Zetia, ACEI (for CAD, HGN, DM). Physical therapy (pt does very little walking since back surgery 12/2017). No chest pain now; +tachypnea, difficulty breathing (COPD, asthma, PNA). From a cardiac perspective, pt may be followed as an outpatient by his commercial pilot. Code(s): R07.89 - OTHER CHEST PAIN (10) Sleep apnea Code(s): G47.30 - SLEEP APNEA, UNSPECIFIED (11) Leukocytosis Assessment/Plan: On IV antibiotics. rpeortedly febrile in days before admission. f/u cultures. F/u with ID, PMD. Code(s): D72.829 - ELEVATED WHITE BLOOD CELL COUNT, UNSPECIFIED (12) Acute adjustment disorder with anxiety Code(s): F43.22 - ADJUSTMENT DISORDER WITH ANXIETY (13) Opiate dependence Code(s): F11.20 - OPIOID DEPENDENCE, UNCOMPLICATED (14) Diabetes mellitus Assessment/Plan: elevated glucose; also on steroids. F/u with outsole tacker. Code(s): E11.9 - TYPE 2 DIABETES MELLITUS WITHOUT COMPLICATIONS Qualifiers: Diabetes mellitus type: type 2 Diabetes mellitus complication detail: with unspecified neuropathy
[2018-04-04] MEDS: ARFORMOTEROL TARTRATE 15 MCG/2 ML VIAL NEB SCH (20:58)
[2018-04-04] MEDS: ROSUVASTATIN CA 10 MG TABLET (FP) PO SCH (22:30)
[2018-04-04] MEDS: MONTELUKAST NA 10 MG TABLET PO SCH (22:30)
[2018-04-05] MEDS: methylPREDNISolone NA SUCC 40 MG/1 ML VIAL IVPUSH SCH ×4 (01:17→21:16)
[2018-04-05] MEDS: morphine SULFATE 4 MG/ML VIAL IVPUSH PRN ×6 (02:24→23:03)
[2018-04-05] MEDS: INSULIN (LEVEMIR) 100 UNITS/ML UNITS SQ SCH (06:21)
[2018-04-05] MEDS: INSULIN (NOVOLOG MIX 70/30) 100 UNITS/ML MDV SQ SCH ×2 (06:23→17:04)
[2018-04-05] MEDS: INSULIN SLIDING SCALE (NOVOLOG) 1 VIAL SQ SCH ×4 (06:24→21:19)
[2018-04-05] MEDS: ARFORMOTEROL TARTRATE 15 MCG/2 ML VIAL NEB SCH ×2 (08:05→20:11)
[2018-04-05] MEDS ORDERED: PT OWN MED DRAWER 7, Y5N ONE ×2 (08:34→16:42)
[2018-04-05] MEDS: AMINO ACIDS/PROTEIN HYDROLYS 30 ML LIQUID.PKT PO SCH ×2 (08:46→17:04)
[2018-04-05] MEDS: ASPIRIN COATED 81 MG TABLET.EC PO SCH ×2 (08:47→09:07)
[2018-04-05] MEDS: amLODIPine BESYLATE 5 MG TABLET (FP) PO SCH ×2 (08:47→09:08)
[2018-04-05] MEDS: AMITRIPTYLINE HCL 25 MG TABLET (FP) PO SCH ×2 (08:48→09:07)
[2018-04-05] MEDS: FUROSEMIDE 40 MG TABLET (FP) PO SCH ×2 (08:48→09:07)
[2018-04-05] MEDS: RANITIDINE HCL 150 MG TABLET (FP) PO SCH ×3 (08:48→21:17)
[2018-04-05] MEDS: GABAPENTIN 300 MG CAPSULE (FP) PO SCH ×3 (08:48→21:17)
[2018-04-05] MEDS: FINASTERIDE 5 MG TABLET (FP) PO SCH ×2 (08:48→09:08)
[2018-04-05] MEDS: CLOPIDOGREL BISULFATE 75 MG TABLET (FP) PO SCH ×2 (08:48→09:08)
[2018-04-05] MEDS: RAMIPRIL 5 MG CAPSULE (FP) PO SCH ×2 (08:48→09:07)
[2018-04-05] MEDS: HEPARIN NA (PORCINE) 5,000 UNITS/ML 1ML VIAL SQ SCH ×3 (08:48→21:16)
[2018-04-05] MEDS: TAMSULOSIN HCL 0.4 MG CAP PO SCH (08:48)
[2018-04-05] MEDS: EZETIMIBE 10 MG TABLET (FP) PO SCH ×2 (08:49→09:45)
[2018-04-05] MEDS: BUDESONIDE/FORMETEROL FUMARATE 160/4.5 mcg INHALER IH SCH ×2 (08:49→09:08)
[2018-04-05] MEDS: POLYETHYLENE GLYCOL 3350 119 GM BTL PO SCH ×2 (09:07→21:33)
[2018-04-05] MEDS: LIPASE/PROTEASE/AMYLASE 36,000 UNIT CAPSULE PO SCH ×3 (09:07→17:06)
--- NOTE | 2018-04-05 09:34 | PN ---
Progress Note, Physician - Current Medication List Current Medications: Active Medications Albuterol Sulfate (Ventolin 0.083% Nebulizer Soln -) 1 amp NEB Q4H PRN PRN Reason: SHORT OF BREATH/WHEEZING Amino Acids (Prosource No Carb Liquid Pkt) 30 ml PO BID@0800,1730 [facility] Last Admin: 04/05/18 08:46 Dose: 30 ml Amitriptyline HCl (Elavil -) 25 mg PO DAILY [facility] Last Admin: 04/05/18 09:07 Dose: Not Given Amlodipine Besylate (Norvasc -) 5 mg PO DAILY [facility] Last Admin: 04/05/18 09:08 Dose: Not Given Arformoterol Tartrate (Brovana (Restricted To Pulmonology/Resp) -) 1 amp NEB RBID [facility] Last Admin: 04/05/18 08:05 Dose: 1 amp Aspirin (Ecotrin -) 81 mg PO DAILY [facility] Last Admin: 04/05/18 09:07 Dose: Not Given Budesonide/Formoterol Fumarate (Symbicort 160/4.5mcg -) 1 puff IH DAILY [facility] Last Admin: 04/05/18 09:08 Dose: Not Given Clopidogrel Bisulfate (Plavix -) 75 mg PO DAILY [facility] Last Admin: 04/05/18 09:08 Dose: Not Given Diazepam (Valium -) 5 mg PO Q12H PRN PRN Reason: back spasms Last Admin: 04/02/18 21:19 Dose: 5 mg Ezetimibe (Zetia -) 10 mg PO DAILY [facility] Last Admin: 04/05/18 08:49 Dose: 10 mg Finasteride (Proscar -) 5 mg PO DAILY [facility] Last Admin: 04/05/18 09:08 Dose: Not Given Furosemide (Lasix -) 40 mg PO DAILY [facility] Last Admin: 04/05/18 09:07 Dose: Not Given Gabapentin (Neurontin -) 300 mg PO BID [facility] Last Admin: 04/05/18 09:07 Dose: Not Given Heparin Sodium (Porcine) (Heparin -) 5,000 unit SQ BID [facility] Last Admin: 04/05/18 09:07 Dose: Not Given Hydromorphone HCl (Dilaudid -) 4 mg PO Q4H PRN PRN Reason: PAIN LEVEL 7 - 10 Last Admin: 04/05/18 08:47 Dose: 4 mg Ceftriaxone Sodium 500 mg/ (Dextrose) 50 mls @ 100 mls/hr IVPB DAILY [facility] Last Admin: 04/04/18 10:02 Dose: 100 mls/hr Insulin Aspart (Novolog Mix 70/30 Vial) 40 units SQ BIDAC [facility] Last Admin: 04/05/18 06:23 Dose: 40 units Insulin Aspart (Novolog Vial Sliding Scale -) 1 vial SQ ACHS [facility]; Protocol Last Admin: 04/05/18 06:24 Dose: 14 units Insulin Detemir (Levemir Vial) 35 units SQ BID@0700,2200 [facility] Last Admin: 04/05/18 06:21 Dose: Not Given Methylprednisolone Sodium Succinate (Solu-Medrol -) 40 mg IVPUSH Q8H-IV [facility] Last Admin: 04/05/18 09:08 Dose: Not Given Montelukast Sodium (Singulair -) 10 mg PO HS [facility] Last Admin: 04/04/18 22:30 Dose: 10 mg Morphine Sulfate (Morphine Sulfate) 4 mg IVPUSH Q4H PRN PRN Reason: PAIN LEVEL 6-10 Last Admin: 04/05/18 06:25 Dose: 4 mg Non-Formulary Medication (Mesalamine [Pentasa]) 500 mg PO DAILY [facility] Oxycodone HCl (Roxicodone -) 10 mg PO Q4H PRN PRN Reason: PAIN LEVEL 7 - 10 Pancrelipase (Creon Dr 36,000 Units Capsule) 1 cap PO TIDCM [facility] Last Admin: 04/05/18 09:07 Dose: Not Given Polyethylene Glycol (Miralax (For Daily Use) -) 17 gm PO BID [facility] Last Admin: 04/05/18 09:07 Dose: Not Given Ramipril (Altace -) 10 mg PO DAILY [facility] Last Admin: 04/05/18 09:07 Dose: Not Given Ranitidine HCl (Zantac -) 150 mg PO BID [facility] Last Admin: 04/05/18 09:08 Dose: Not Given Rosuvastatin Calcium (Crestor -) 10 mg PO HS [facility] Last Admin: 04/04/18 22:30 Dose: 10 mg Tamsulosin HCl (Flomax -) 0.4 mg PO DAILY@0830 [facility] Last Admin: 04/05/18 08:48 Dose: 0.4 mg - Objective Vital Signs: Vital Signs Temperature 98.1 F 04/05/18 06:00 Pulse Rate 95 H 04/05/18 06:00 Respiratory Rate 18 04/05/18 06:00 Blood Pressure 179/103 04/05/18 06:00 O2 Sat by Pulse Oximetry (%) 99 04/04/18 21:00 Cardiovascular: Yes: S1, S2 Respiratory: Yes: Regular, CTA Bilaterally Gastrointestinal: Yes: Normal Bowel Sounds, Soft Edema: No Neurological: Yes: Unsteady Gait, Weakness Labs: CBC, BMP 04/03/18 05:03 04/03/18 05:03 INR, PTT INR 1.04 (0.83-1.09) 03/30/18 09:39 Assessment/Plan - Problems (1) Acute bronchitis Assessment/Plan: -Pulmonary consult on board -IV abx -nasal O2 -bronchodilator -tapering IV medrol Code(s): J20.9 - ACUTE BRONCHITIS, UNSPECIFIED (2) Asthma exacerbation in COPD Code(s): J44.1 - CHRONIC OBSTRUCTIVE PULMONARY DISEASE W (ACUTE) EXACERBATION; J45.901 - UNSPECIFIED ASTHMA WITH (ACUTE) EXACERBATION (3) Diabetes mellitus Assessment/Plan: -A1c 7.0 -BGM ACHS -diabetic diet -RD consult -Insulin: levemir + novolog Code(s): E11.9 - TYPE 2 DIABETES MELLITUS WITHOUT COMPLICATIONS Qualifiers: Diabetes mellitus type: type 2 Diabetes mellitus complication detail: with unspecified neuropathy (4) Anemia Assessment/Plan: -stable -Check iron profile, thyroid profile, B 12, folate and stool OB Code(s): D64.9 - ANEMIA, UNSPECIFIED (5) Hx of CABG Code(s): Z95.1 - PRESENCE OF AORTOCORONARY BYPASS GRAFT (6) Cervical radiculopathy Code(s): M54.12 - RADICULOPATHY, CERVICAL REGION (7) Chronic back pain -S/P Laminectomy -PT--will benefit from soria Code(s): M54.9 - DORSALGIA, UNSPECIFIED; G89.29 - OTHER CHRONIC PAIN Qualifiers:
[2018-04-05] MEDS ORDERED: INSULIN (NOVOLOG) ASPART 100 UNITS/ML 10ML VIAL ONE ×2 (10:51→21:14)
[2018-04-05] MEDS: CEFTRIAXONE 500 MG in DEXTROSE 5%-WATER - 50 ML IVPB SCH (11:12)
--- NOTE | 2018-04-05 11:16 | PN ---
Progress Note, Physician History of Present Illness: pulmonary alert,feeling better less dyspneic - Current Medication List Current Medications: Active Medications Albuterol Sulfate (Ventolin 0.083% Nebulizer Soln -) 1 amp NEB Q4H PRN PRN Reason: SHORT OF BREATH/WHEEZING Amino Acids (Prosource No Carb Liquid Pkt) 30 ml PO BID@0800,1730 [facility] Last Admin: 04/05/18 08:46 Dose: 30 ml Amitriptyline HCl (Elavil -) 25 mg PO DAILY [facility] Last Admin: 04/05/18 09:07 Dose: Not Given Amlodipine Besylate (Norvasc -) 5 mg PO DAILY [facility] Last Admin: 04/05/18 09:08 Dose: Not Given Arformoterol Tartrate (Brovana (Restricted To Pulmonology/Resp) -) 1 amp NEB RBID [facility] Last Admin: 04/05/18 08:05 Dose: 1 amp Aspirin (Ecotrin -) 81 mg PO DAILY [facility] Last Admin: 04/05/18 09:07 Dose: Not Given Budesonide/Formoterol Fumarate (Symbicort 160/4.5mcg -) 1 puff IH DAILY [facility] Last Admin: 04/05/18 09:08 Dose: Not Given Clopidogrel Bisulfate (Plavix -) 75 mg PO DAILY [facility] Last Admin: 04/05/18 09:08 Dose: Not Given Diazepam (Valium -) 5 mg PO Q12H PRN PRN Reason: back spasms Last Admin: 04/02/18 21:19 Dose: 5 mg Ezetimibe (Zetia -) 10 mg PO DAILY [facility] Last Admin: 04/05/18 09:45 Dose: Not Given Finasteride (Proscar -) 5 mg PO DAILY [facility] Last Admin: 04/05/18 09:08 Dose: Not Given Furosemide (Lasix -) 40 mg PO DAILY [facility] Last Admin: 04/05/18 09:07 Dose: Not Given Gabapentin (Neurontin -) 300 mg PO BID [facility] Last Admin: 04/05/18 09:07 Dose: Not Given Heparin Sodium (Porcine) (Heparin -) 5,000 unit SQ BID [facility] Last Admin: 04/05/18 09:07 Dose: Not Given Hydromorphone HCl (Dilaudid -) 4 mg PO Q4H PRN PRN Reason: PAIN LEVEL 7 - 10 Last Admin: 04/05/18 08:47 Dose: 4 mg Ceftriaxone Sodium 500 mg/ (Dextrose) 50 mls @ 100 mls/hr IVPB DAILY [facility] Last Admin: 04/04/18 10:02 Dose: 100 mls/hr Insulin Aspart (Novolog Mix 70/30 Vial) 40 units SQ BIDAC [facility] Last Admin: 04/05/18 06:23 Dose: 40 units Insulin Aspart (Novolog Vial Sliding Scale -) 1 vial SQ ACHS [facility]; Protocol Last Admin: 04/05/18 06:24 Dose: 14 units Insulin Detemir (Levemir Vial) 35 units SQ BID@0700,2200 [facility] Last Admin: 04/05/18 06:21 Dose: Not Given Methylprednisolone Sodium Succinate (Solu-Medrol -) 40 mg IVPUSH Q8H-IV [facility] Last Admin: 04/05/18 09:08 Dose: Not Given Montelukast Sodium (Singulair -) 10 mg PO [facility] Last Admin: 04/04/18 22:30 Dose: 10 mg Morphine Sulfate (Morphine Sulfate) 4 mg IVPUSH Q4H PRN PRN Reason: PAIN LEVEL 6-10 Last Admin: 04/05/18 10:28 Dose: 4 mg Non-Formulary Medication (Mesalamine [Pentasa]) 500 mg PO DAILY [facility] Oxycodone HCl (Roxicodone -) 10 mg PO Q4H PRN PRN Reason: PAIN LEVEL 7 - 10 Pancrelipase (Creon Dr 36,000 Units Capsule) 1 cap PO TIDCM [facility] Last Admin: 04/05/18 09:07 Dose: Not Given Polyethylene Glycol (Miralax (For Daily Use) -) 17 gm PO BID [facility] Last Admin: 04/05/18 09:07 Dose: Not Given Ramipril (Altace -) 10 mg PO DAILY [facility] Last Admin: 04/05/18 09:07 Dose: Not Given Ranitidine HCl (Zantac -) 150 mg PO BID [facility] Last Admin: 04/05/18 09:08 Dose: Not Given Rosuvastatin Calcium (Crestor -) 10 mg PO HS [facility] Last Admin: 04/04/18 22:30 Dose: 10 mg Tamsulosin HCl (Flomax -) 0.4 mg PO DAILY@0830 [facility] Last Admin: 04/05/18 08:48 Dose: 0.4 mg - Objective Vital Signs: Vital Signs Temperature 98.0 F 04/05/18 10:00 Pulse Rate 82 04/05/18 10:00 Respiratory Rate 22 H 04/05/18 10:00 Blood Pressure 176/105 H 04/05/18 10:00 O2 Sat by Pulse Oximetry (%) 97 04/05/18 10:00 Constitutional: Yes: Well Nourished, Calm Eyes: Yes: WNL HENT: Yes: WNL Neck: Yes: Supple (trach) Cardiovascular: Yes: Regular Rate and Rhythm, S1, S2 Respiratory: Yes: Diminished Gastrointestinal: Yes: Normal Bowel Sounds, Soft Extremities: Yes: WNL Edema: No Labs: CBC, BMP 04/03/18 05:03 04/03/18 05:03 INR, PTT INR 1.04 (0.83-1.09) 03/30/18 09:39 Assessment/Plan Problem List - Problems (1) Asthma exacerbation Code(s): J45.901 - UNSPECIFIED ASTHMA WITH (ACUTE) EXACERBATION (2) Acute bronchitis Code(s): J20.9 - ACUTE BRONCHITIS, UNSPECIFIED (3) Chronic pain Code(s): G89.29 - OTHER CHRONIC PAIN Qualifiers: Chronic pain type: chronic pain syndrome Qualified Code(s): G89.4 - Chronic pain syndrome (4) Chronic pancreatitis Code(s): K86.1 - OTHER CHRONIC PANCREATITIS Qualifiers: Pancreatitis type: unspecified pancreatitis type Qualified Code(s): K86.1 - Other chronic pancreatitis (5) Coronary artery disease Code(s): I25.10 - ATHSCL HEART DISEASE OF [place] CORONARY ARTERY W/O ANG PCTRS (6) Diabetes mellitus Code(s): E11.9 - TYPE 2 DIABETES MELLITUS WITHOUT COMPLICATIONS Qualifiers: Diabetes mellitus type: type 2 Diabetes mellitus complication detail: with unspecified neuropathy (7) Hyperlipidemia Code(s): E78.5 - HYPERLIPIDEMIA, UNSPECIFIED (8) Hypertension Code(s): I10 - ESSENTIAL (PRIMARY) HYPERTENSION Qualifiers: Hypertension type: essential hypertension Qualified Code(s): I10 - Essential (primary) hypertension Assessment/Plan Acute Asthma Exacerbation improving Acute Bronchitis vs r/o Pneumonia Lactic Acidosis Obstructive Sleep Apnea s/p tracheostomy CAD s/p CABG HTN DM Hyperlipidemia Chronic Back Pain Opiate Dependence - IV medrol taper - inhaled bronchodilators standing and PRN - monitor peak flow - O2 to keep SpO2>90% - uncap tracheostomy when sleeping - glucose control while on systemic steroids - DVT prophylaxis DR VANESSA
[2018-04-05] MEDS ORDERED: amLODIPine BESYLATE 2.5 MG TABLET (FP) PO ONE (11:36)
--- NOTE | 2018-04-05 11:39 | PN ---
Progress Note, Physician Chief Complaint: Pt A&Ox3;OOB in chair; frequent pain in neck, lower back; no chest pain or dyspnea. History of Present Illness: The patient is a 62 year old black male with significant history of CAD, [place]--> CABG; s/p coronary stents x 6 (most recently 12/2015; small area of mild rosamaria- infarct ischemia on 07/2016 dobutamine stress MIBI), hypertension, hyperlipidemia, chronic pancreatitis, chronic back pain/surgery (takes oxycodone ), SBO, incarcerated hernia s/p repair x2 (September 2017), H.Pylori, BPH, COPD, bronchial asthma, tracheostomy in place (unplugs when sleeping for sleep apnea) , anxiety (on ELavil), who presents to the ED complaining of one week of intermittent fevers and chills, productive cough, generalized weakness, shortness of breath, and chest tightness. The patient states he feels sweaty one minute and cold the next. He states his cough is productive of beige sputum. He states he has been having chest tightness that radiates to his back which is exacerbated by his cough. He denies blood in his sputum. He denies radiation of chest pain. The patient states he has been using his nebulizers at home every 4 hours with little to no resolve of symptoms. He states he is concerned for pneumonia at this time. He denies any mucus, sputum, or blood from his trach tube. He states he cleans the tube regularly. No travel or sick contacts. Secondarily, he states he has chronic abdominal pain and is scheduled for endoscopy to evaluate his benign pancreatic tumors. - Current Medication List Current Medications: Active Medications Albuterol Sulfate (Ventolin 0.083% Nebulizer Soln -) 1 amp NEB Q4H PRN PRN Reason: SHORT OF BREATH/WHEEZING Amino Acids (Prosource No Carb Liquid Pkt) 30 ml PO BID@0800,1730 [facility] Last Admin: 04/05/18 08:46 Dose: 30 ml Amitriptyline HCl (Elavil -) 25 mg PO DAILY [facility] Last Admin: 04/05/18 09:07 Dose: Not Given Amlodipine Besylate (Norvasc -) 5 mg PO DAILY [facility] Last Admin: 04/05/18 09:08 Dose: Not Given Arformoterol Tartrate (Brovana (Restricted To Pulmonology/Resp) -) 1 amp NEB RBID [facility] Last Admin: 04/05/18 08:05 Dose: 1 amp Aspirin (Ecotrin -) 81 mg PO DAILY [facility] Last Admin: 04/05/18 09:07 Dose: Not Given Budesonide/Formoterol Fumarate (Symbicort 160/4.5mcg -) 1 puff IH DAILY [facility] Last Admin: 04/05/18 09:08 Dose: Not Given Clopidogrel Bisulfate (Plavix -) 75 mg PO DAILY [facility] Last Admin: 04/05/18 09:08 Dose: Not Given Diazepam (Valium -) 5 mg PO Q12H PRN PRN Reason: back spasms Last Admin: 04/02/18 21:19 Dose: 5 mg Ezetimibe (Zetia -) 10 mg PO DAILY [facility] Last Admin: 04/05/18 09:45 Dose: Not Given Finasteride (Proscar -) 5 mg PO DAILY [facility] Last Admin: 04/05/18 09:08 Dose: Not Given Furosemide (Lasix -) 40 mg PO DAILY [facility] Last Admin: 04/05/18 09:07 Dose: Not Given Gabapentin (Neurontin -) 300 mg PO BID [facility] Last Admin: 04/05/18 09:07 Dose: Not Given Heparin Sodium (Porcine) (Heparin -) 5,000 unit SQ BID [facility] Last Admin: 04/05/18 09:07 Dose: Not Given Hydromorphone HCl (Dilaudid -) 4 mg PO Q4H PRN PRN Reason: PAIN LEVEL 7 - 10 Last Admin: 04/05/18 08:47 Dose: 4 mg Ceftriaxone Sodium 500 mg/ (Dextrose) 50 mls @ 100 mls/hr IVPB DAILY [facility] Last Admin: 04/05/18 11:12 Dose: 100 mls/hr Insulin Aspart (Novolog Mix 70/30 Vial) 40 units SQ BIDAC [facility] Last Admin: 04/05/18 06:23 Dose: 40 units Insulin Aspart (Novolog Vial Sliding Scale -) 1 vial SQ ACHS [facility]; Protocol Last Admin: 04/05/18 11:12 Dose: 10 units Insulin Detemir (Levemir Vial) 35 units SQ BID@0700,2200 [facility] Last Admin: 04/05/18 06:21 Dose: Not Given Methylprednisolone Sodium Succinate (Solu-Medrol -) 40 mg IVPUSH BID [facility] Montelukast Sodium (Singulair -) 10 mg PO [facility] Last Admin: 04/04/18 22:30 Dose: 10 mg Morphine Sulfate (Morphine Sulfate) 4 mg IVPUSH Q4H PRN PRN Reason: PAIN LEVEL 6-10 Last Admin: 04/05/18 10:28 Dose: 4 mg Non-Formulary Medication (Mesalamine [Pentasa]) 500 mg PO DAILY [facility] Oxycodone HCl (Roxicodone -) 10 mg PO Q4H PRN PRN Reason: PAIN LEVEL 7 - 10 Pancrelipase (Creon Dr 36,000 Units Capsule) 1 cap PO TIDCM [facility] Last Admin: 04/05/18 11:23 Dose: Not Given Polyethylene Glycol (Miralax (For Daily Use) -) 17 gm PO BID [facility] Last Admin: 04/05/18 09:07 Dose: Not Given Ramipril (Altace -) 10 mg PO DAILY [facility] Last Admin: 04/05/18 09:07 Dose: Not Given Ranitidine HCl (Zantac -) 150 mg PO BID [facility] Last Admin: 04/05/18 09:08 Dose: Not Given Rosuvastatin Calcium (Crestor -) 10 mg PO [facility] Last Admin: 04/04/18 22:30 Dose: 10 mg Tamsulosin HCl (Flomax -) 0.4 mg PO DAILY@0830 [facility] Last Admin: 04/05/18 08:48 Dose: 0.4 mg - Objective Vital Signs: Vital Signs Temperature 98.0 F 04/05/18 10:00 Pulse Rate 82 04/05/18 10:00 Respiratory Rate 22 H 04/05/18 10:00 Blood Pressure 176/105 H 04/05/18 10:00 O2 Sat by Pulse Oximetry (%) 97 04/05/18 10:00 Constitutional: Yes: Calm Eyes: Yes: WNL HENT: Yes: WNL, Other (trach site without exudate) Neck: Yes: Decreased ROM Cardiovascular: Yes: S1, S2, S4 Respiratory: Yes: Diminished Gastrointestinal: Yes: Soft, Abdomen, Obese ...Rectal Exam: Yes: Deferred Genitourinary: No: Anuria Breast(s): Yes: WNL Musculoskeletal: Yes: Joint Stiffness, Muscle Weakness Extremities: Yes: Cool Edema: No Peripheral Pulses WNL: Yes Integumentary: Yes: Venous Stasis Changes Neurological: Yes: Alert, Oriented Psychiatric: Yes: Other (anxiety) Labs: CBC, BMP 04/03/18 05:03 04/03/18 05:03 INR, PTT INR 1.04 (0.83-1.09) 03/30/18 09:39 Problem List - Problems (1) Acute bronchitis Assessment/Plan: f/u with splitter hand Code(s): J20.9 - ACUTE BRONCHITIS, UNSPECIFIED (2) Asthma exacerbation in COPD Assessment/Plan: s/p tracehostomy. Hx sleep apnea; s/p tracheostomy Bronchodilators, O2, steroids, antibiotics per splitter hand. Code(s): J44.1 - CHRONIC OBSTRUCTIVE PULMONARY DISEASE W (ACUTE) EXACERBATION; J45.901 - UNSPECIFIED ASTHMA WITH (ACUTE) EXACERBATION (3) Pneumonia Assessment/Plan: on antibiotics; f/u cultures. CXR PA and Lat Code(s): J18.9 - PNEUMONIA, UNSPECIFIED ORGANISM Qualifiers: (4) Acute on chronic diastolic (congestive) heart failure Assessment/Plan: On ramipril, amlodipine (dose increased to 10 mg daily for better control of HTN ), furosemide. BNP > 1,500 Double that of a year abo). F/u BUn/Cr, electrolytes, daily weight, Is and Os. CXR PA and Lat if refractory to conventional Rx of CHF and COPD. . Code(s): I50.33 - ACUTE ON CHRONIC DIASTOLIC (CONGESTIVE) HEART FAILURE (5) Hx of CABG Assessment/Plan: f/u cardiac hx with pt's confectionery cooker, Dr. Bola Elaine; discussed pt's present condition with him. Code(s): Z95.1 - PRESENCE OF AORTOCORONARY BYPASS GRAFT (6) H/O heart artery stent Assessment/Plan: On ASA and clopidogrel. TNI < 0.02 x 3 EKG: sinus tahcycardia initially, with possible old IWMI; repeat today shows normal study. Code(s): Z95.5 - PRESENCE OF CORONARY ANGIOPLASTY IMPLANT AND GRAFT (7) BPH (benign prostatic hyperplasia) Assessment/Plan: On Proscar. Code(s): N40.0 - BENIGN PROSTATIC HYPERPLASIA WITHOUT LOWER URINRY TRACT SYMP (8) Hyperlipidemia Assessment/Plan: on zetia and statin. (total cholesterol < 100 mg/dL 11/2017; now, however, LDL is 109, and total chol 183 mg/dL ); keep LDL well below 70 mg/dL. Rosuvastatin increased from 10 to 20 mg daily. Code(s): E78.5 - HYPERLIPIDEMIA, UNSPECIFIED (9) Atypical chest pain Assessment/Plan: TNI < 0.02 x 3. EKG: sinus tachycardia; f/u repeat today (HR generally WNL over the past 24 hours). Stress MIBI 07/2016: mild periinfarct inderior wall ischemia. ECHO 12/2017: normal LVEF; mild LVH; mild LAE; trace-mild MR and TR. Discussed pt with his confectionery cooker, Dr. Elaine. Pt is seen frequently for chest pain, which is often secondary to pulmonary issues. Aggressive medical managament of CAD with nitrates, ASA and cloopidogrel, statin + Zetia, ACEI (for CAD, HGN, DM). Physical therapy (pt does very little walking since back surgery 12/2017). No chest pain now; +tachypnea, difficulty breathing (COPD, asthma, PNA). From a cardiac perspective, pt may be followed as an outpatient by his confectionery cooker. Code(s): R07.89 - OTHER CHEST PAIN (10) Sleep apnea Code(s): G47.30 - SLEEP APNEA, UNSPECIFIED (11) Leukocytosis Assessment/Plan: On IV antibiotics. rpeortedly febrile in days before admission. f/u cultures. F/u with ID, PMD. Code(s): D72.829 - ELEVATED WHITE BLOOD CELL COUNT, UNSPECIFIED (12) Acute adjustment disorder with anxiety Code(s): F43.22 - ADJUSTMENT DISORDER WITH ANXIETY (13) Opiate dependence Assessment/Plan: chronic pain from "all over", particularly in back (hx cervical and lumbar surgeries). Pain management and physical rehbailitation are crucial. 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 He plans to use the discipline learned there to help him regain strength, and eventually decrease need for pain medications. Code(s): F11.20 - OPIOID DEPENDENCE, UNCOMPLICATED (14) Diabetes mellitus Assessment/Plan: elevated glucose; also on steroids. On ACEI (CAD; HTN; DM; CHF). F/u with tire specialist. Code(s): E11.9 - TYPE 2 DIABETES MELLITUS WITHOUT COMPLICATIONS Qualifiers: Diabetes mellitus type: type 2 Diabetes mellitus complication detail: with unspecified neuropathy
[2018-04-05] MEDS: ALBUTEROL SO4 0.083% IH SOL 2.5 MG/3 ML VIAL.NEB. NEB PRN ×2 (12:34→16:42)
--- NOTE | 2018-04-05 12:52 | PN ---
Progress Note, Physician Chief Complaint: back pain and labile sugars History of Present Illness: dm,htn,copd,pancreatitis,chronic / acute pain with long-term diabetic neuropathy - Current Medication List Current Medications: Active Medications Albuterol Sulfate (Ventolin 0.083% Nebulizer Soln -) 1 amp NEB Q4H PRN PRN Reason: SHORT OF BREATH/WHEEZING Last Admin: 04/05/18 12:34 Dose: 1 amp Amino Acids (Prosource No Carb Liquid Pkt) 30 ml PO BID@0800,1730 [facility] Last Admin: 04/05/18 08:46 Dose: 30 ml Amitriptyline HCl (Elavil -) 25 mg PO DAILY [facility] Last Admin: 04/05/18 09:07 Dose: Not Given Amlodipine Besylate (Norvasc -) 10 mg PO DAILY [facility] Arformoterol Tartrate (Brovana (Restricted To Pulmonology/Resp) -) 1 amp NEB RBID [facility] Last Admin: 04/05/18 08:05 Dose: 1 amp Aspirin (Ecotrin -) 81 mg PO DAILY [facility] Last Admin: 04/05/18 09:07 Dose: Not Given Budesonide/Formoterol Fumarate (Symbicort 160/4.5mcg -) 1 puff IH DAILY [facility] Last Admin: 04/05/18 09:08 Dose: Not Given Clopidogrel Bisulfate (Plavix -) 75 mg PO DAILY [facility] Last Admin: 04/05/18 09:08 Dose: Not Given Diazepam (Valium -) 5 mg PO Q12H PRN PRN Reason: back spasms Last Admin: 04/02/18 21:19 Dose: 5 mg Ezetimibe (Zetia -) 10 mg PO DAILY [facility] Last Admin: 04/05/18 09:45 Dose: Not Given Finasteride (Proscar -) 5 mg PO DAILY [facility] Last Admin: 04/05/18 09:08 Dose: Not Given Furosemide (Lasix -) 40 mg PO DAILY [facility] Last Admin: 04/05/18 09:07 Dose: Not Given Gabapentin (Neurontin -) 300 mg PO BID [facility] Last Admin: 04/05/18 09:07 Dose: Not Given Heparin Sodium (Porcine) (Heparin -) 5,000 unit SQ BID [facility] Last Admin: 04/05/18 09:07 Dose: Not Given Hydromorphone HCl (Dilaudid -) 4 mg PO Q4H PRN PRN Reason: PAIN LEVEL 7 - 10 Last Admin: 04/05/18 08:47 Dose: 4 mg Ceftriaxone Sodium 500 mg/ (Dextrose) 50 mls @ 100 mls/hr IVPB DAILY [facility] Last Admin: 04/05/18 11:12 Dose: 100 mls/hr Insulin Aspart (Novolog Mix 70/30 Vial) 40 units SQ BIDAC [facility] Last Admin: 04/05/18 06:23 Dose: 40 units Insulin Aspart (Novolog Vial Sliding Scale -) 1 vial SQ ACHS [facility]; Protocol Last Admin: 04/05/18 11:12 Dose: 10 units Methylprednisolone Sodium Succinate (Solu-Medrol -) 40 mg IVPUSH BID [facility] Montelukast Sodium (Singulair -) 10 mg PO HS [facility] Last Admin: 04/04/18 22:30 Dose: 10 mg Morphine Sulfate (Morphine Sulfate) 4 mg IVPUSH Q4H PRN PRN Reason: PAIN LEVEL 6-10 Last Admin: 04/05/18 10:28 Dose: 4 mg Non-Formulary Medication (Mesalamine [Pentasa]) 500 mg PO DAILY [facility] Oxycodone HCl (Roxicodone -) 10 mg PO Q4H PRN PRN Reason: PAIN LEVEL 7 - 10 Pancrelipase (Creon Dr 36,000 Units Capsule) 1 cap PO TIDCM [facility] Last Admin: 04/05/18 11:23 Dose: Not Given Polyethylene Glycol (Miralax (For Daily Use) -) 17 gm PO BID [facility] Last Admin: 04/05/18 09:07 Dose: Not Given Ramipril (Altace -) 10 mg PO DAILY [facility] Last Admin: 04/05/18 09:07 Dose: Not Given Ranitidine HCl (Zantac -) 150 mg PO BID [facility] Last Admin: 04/05/18 09:08 Dose: Not Given Rosuvastatin Calcium (Crestor -) 20 mg PO HS [facility] Tamsulosin HCl (Flomax -) 0.4 mg PO DAILY@0830 [facility] Last Admin: 04/05/18 08:48 Dose: 0.4 mg - Objective Vital Signs: Vital Signs Temperature 98.0 F 04/05/18 10:00 Pulse Rate 103 H 04/05/18 12:06 Respiratory Rate 20 04/05/18 12:06 Blood Pressure 133/96 04/05/18 12:06 O2 Sat by Pulse Oximetry (%) 97 04/05/18 10:00 Constitutional: Yes: Anxious Eyes: Yes: EOM Intact HENT: Yes: Normocephalic Neck: Yes: Trachea Midline Cardiovascular: Yes: Regular Rate and Rhythm Respiratory: Yes: CTA Bilaterally Gastrointestinal: Yes: Abdomen, Obese, Hypoactive Bowel Sounds ...Rectal Exam: Yes: Deferred Genitourinary: Yes: WNL Breast(s): Yes: WNL Musculoskeletal: Yes: Muscle Pain, Muscle Weakness Extremities: Yes: WNL Edema: No Peripheral Pulses WNL: Yes Neurological: Yes: Alert, Oriented, Numbness, Unsteady Gait, Weakness Psychiatric: Yes: Alert Labs: CBC, BMP 04/03/18 05:03 04/03/18 05:03 INR, PTT INR 1.04 (0.83-1.09) 03/30/18 09:39 Problem List - Problems (1) 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 Code(s): E10.51 - TYPE 1 DIABETES W DIABETIC PERIPHERAL ANGIOPATH W/O GANGRENE; I70.209 - UNSP ATHSCL FALSE PASS ARTERIES OF EXTREMITIES, UNSP EXTREMITY (2) Acute adjustment disorder with anxiety Code(s): F43.22 - ADJUSTMENT DISORDER WITH ANXIETY (3) Asthma exacerbation in COPD Code(s): J44.1 - CHRONIC OBSTRUCTIVE PULMONARY DISEASE W (ACUTE) EXACERBATION; J45.901 - UNSPECIFIED ASTHMA WITH (ACUTE) EXACERBATION (4) Bronchitis Code(s): J40 - BRONCHITIS, NOT SPECIFIED ACUTE OR CHRONIC (5) H/O heart artery stent Code(s): Z95.5 - PRESENCE OF CORONARY ANGIOPLASTY IMPLANT AND GRAFT (6) Hx of CABG Code(s): Z95.1 - PRESENCE OF AORTOCORONARY BYPASS GRAFT Assessment/Plan Current Active Problems Acute adjustment disorder with anxiety (Acute) Acute bronchitis (Acute) Asthma exacerbation in COPD (Acute) Atypical chest pain (Acute) Bronchitis (Acute) 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 (Acute) H/O heart artery stent (Acute) Hx of CABG (Acute) Opiate dependence (Acute) Pneumonia (Acute) Laboratory Results - last 24 hr 04/04/18 04/04/18 04/05/18 16:51 22:29 05:41 POC Glucometer 307 435 306 04/05/18 10:30 POC Glucometer 208 Laboratory Tests 09/03/17 09/03/17 09/04/17 17:22 21:45 05:13 Potassium POC Glucometer 266 341 324 Random Glucose TSH Free T4 09/04/17 09/14/17 09/14/17 11:03 17:25 22:28 Potassium POC Glucometer 308 295 284 Random Glucose TSH Free T4 09/15/17 09/15/17 04/03/18 05:05 05:31 06:13 Potassium Cancelled POC Glucometer 340 103 Random Glucose Cancelled TSH Free T4 04/03/18 04/03/18 04/03/18 12:00 16:28 21:26 Potassium POC Glucometer 129 197 159 Random Glucose TSH Free T4 04/04/18 04/04/18 01:42 05:30 Potassium POC Glucometer 62 Random Glucose TSH 0.70 D Free T4 0.78 plaN bgm qid dc levemir continue novolog 70/30 bid use cgms as outpatient rehab estella euthyroid clinically as per bw given clincal state no further testing needed
[2018-04-05] MEDS: ROSUVASTATIN CA 20 MG TABLET (FP) PO SCH (21:17)
[2018-04-05] MEDS: MONTELUKAST NA 10 MG TABLET PO SCH (21:17)
[2018-04-06] MEDS: morphine SULFATE 4 MG/ML VIAL IVPUSH PRN ×2 (03:03→07:09)
[2018-04-06] MEDS: INSULIN (NOVOLOG MIX 70/30) 100 UNITS/ML MDV SQ SCH ×2 (06:47→17:04)
[2018-04-06] MEDS: INSULIN SLIDING SCALE (NOVOLOG) 1 VIAL SQ SCH ×4 (06:47→21:28)
[2018-04-06] MEDS: ARFORMOTEROL TARTRATE 15 MCG/2 ML VIAL NEB SCH ×2 (07:50→20:43)
[2018-04-06] MEDS: AMINO ACIDS/PROTEIN HYDROLYS 30 ML LIQUID.PKT PO SCH ×2 (08:59→17:05)
[2018-04-06] MEDS: FINASTERIDE 5 MG TABLET (FP) PO SCH (09:00)
[2018-04-06] MEDS: GABAPENTIN 300 MG CAPSULE (FP) PO SCH ×2 (09:00→21:26)
[2018-04-06] MEDS: POLYETHYLENE GLYCOL 3350 119 GM BTL PO SCH ×2 (09:00→21:27)
[2018-04-06] MEDS: amLODIPine BESYLATE 10 MG TABLET (FP) PO SCH (09:00)
[2018-04-06] MEDS: TAMSULOSIN HCL 0.4 MG CAP PO SCH (09:00)
[2018-04-06] MEDS: RAMIPRIL 5 MG CAPSULE (FP) PO SCH (09:00)
[2018-04-06] MEDS: FUROSEMIDE 40 MG TABLET (FP) PO SCH (09:00)
[2018-04-06] MEDS: ASPIRIN COATED 81 MG TABLET.EC PO SCH (09:00)
[2018-04-06] MEDS: HEPARIN NA (PORCINE) 5,000 UNITS/ML 1ML VIAL SQ SCH ×2 (09:00→21:27)
[2018-04-06] MEDS: LIPASE/PROTEASE/AMYLASE 36,000 UNIT CAPSULE PO SCH ×3 (09:00→17:04)
[2018-04-06] MEDS: AMITRIPTYLINE HCL 25 MG TABLET (FP) PO SCH (09:00)
[2018-04-06] MEDS: methylPREDNISolone NA SUCC 40 MG/1 ML VIAL IVPUSH SCH ×2 (09:01→21:27)
[2018-04-06] MEDS: RANITIDINE HCL 150 MG TABLET (FP) PO SCH ×2 (09:01→21:26)
[2018-04-06] MEDS: CLOPIDOGREL BISULFATE 75 MG TABLET (FP) PO SCH (09:01)
[2018-04-06] MEDS: BUDESONIDE/FORMETEROL FUMARATE 160/4.5 mcg INHALER IH SCH (09:01)
[2018-04-06] MEDS: EZETIMIBE 10 MG TABLET (FP) PO SCH (09:01)
--- NOTE | 2018-04-06 09:09 | PN ---
Progress Note, Physician History of Present Illness: c/o sob - Current Medication List Current Medications: Active Medications Albuterol Sulfate (Ventolin 0.083% Nebulizer Soln -) 1 amp NEB Q4H PRN PRN Reason: SHORT OF BREATH/WHEEZING Last Admin: 04/05/18 16:42 Dose: 1 amp Amino Acids (Prosource No Carb Liquid Pkt) 30 ml PO BID@0800,1730 [facility] Last Admin: 04/06/18 08:59 Dose: 30 ml Amitriptyline HCl (Elavil -) 25 mg PO DAILY [facility] Last Admin: 04/06/18 09:00 Dose: 25 mg Amlodipine Besylate (Norvasc -) 10 mg PO DAILY [facility] Last Admin: 04/06/18 09:00 Dose: 10 mg Arformoterol Tartrate (Brovana (Restricted To Pulmonology/Resp) -) 1 amp NEB RBID [facility] Last Admin: 04/06/18 07:50 Dose: 1 amp Aspirin (Ecotrin -) 81 mg PO DAILY [facility] Last Admin: 04/06/18 09:00 Dose: 81 mg Budesonide/Formoterol Fumarate (Symbicort 160/4.5mcg -) 1 puff IH DAILY [facility] Last Admin: 04/06/18 09:01 Dose: 1 puff Clopidogrel Bisulfate (Plavix -) 75 mg PO DAILY [facility] Last Admin: 04/06/18 09:01 Dose: 75 mg Ezetimibe (Zetia -) 10 mg PO DAILY [facility] Last Admin: 04/06/18 09:01 Dose: 10 mg Finasteride (Proscar -) 5 mg PO DAILY [facility] Last Admin: 04/06/18 09:00 Dose: 5 mg Furosemide (Lasix -) 40 mg PO DAILY [facility] Last Admin: 04/06/18 09:00 Dose: 40 mg Gabapentin (Neurontin -) 300 mg PO BID [facility] Last Admin: 04/06/18 09:00 Dose: 300 mg Heparin Sodium (Porcine) (Heparin -) 5,000 unit SQ BID [facility] Last Admin: 04/06/18 09:00 Dose: 5,000 unit Hydromorphone HCl (Dilaudid -) 4 mg PO Q4H PRN PRN Reason: PAIN LEVEL 7 - 10 Last Admin: 04/06/18 05:28 Dose: 4 mg Ceftriaxone Sodium 500 mg/ (Dextrose) 50 mls @ 100 mls/hr IVPB DAILY [facility] Last Admin: 04/05/18 11:12 Dose: 100 mls/hr Insulin Aspart (Novolog Mix 70/30 Vial) 40 units SQ BIDAC [facility] Last Admin: 04/06/18 06:47 Dose: 40 units Insulin Aspart (Novolog Vial Sliding Scale -) 1 vial SQ ACHS [facility]; Protocol Last Admin: 04/06/18 06:47 Dose: 14 units Methylprednisolone Sodium Succinate (Solu-Medrol -) 40 mg IVPUSH BID [facility] Last Admin: 04/06/18 09:01 Dose: 40 mg Montelukast Sodium (Singulair -) 10 mg PO [facility] Last Admin: 04/05/18 21:17 Dose: 10 mg Morphine Sulfate (Morphine Sulfate) 4 mg IVPUSH Q4H PRN PRN Reason: PAIN LEVEL 6-10 Last Admin: 04/06/18 07:09 Dose: 4 mg Non-Formulary Medication (Mesalamine [Pentasa]) 500 mg PO DAILY [facility] Pancrelipase (Creon Dr 36,000 Units Capsule) 1 cap PO TIDCM [facility] Last Admin: 04/06/18 09:00 Dose: 1 cap Polyethylene Glycol (Miralax (For Daily Use) -) 17 gm PO BID [facility] Last Admin: 04/06/18 09:00 Dose: Not Given Ramipril (Altace -) 10 mg PO DAILY [facility] Last Admin: 04/06/18 09:00 Dose: 10 mg Ranitidine HCl (Zantac -) 150 mg PO BID [facility] Last Admin: 04/06/18 09:01 Dose: 150 mg Rosuvastatin Calcium (Crestor -) 20 mg PO [facility] Last Admin: 04/05/18 21:17 Dose: 20 mg Tamsulosin HCl (Flomax -) 0.4 mg PO DAILY@0830 [facility] Last Admin: 04/06/18 09:00 Dose: 0.4 mg - Objective Vital Signs: Vital Signs Temperature 98.2 F 04/06/18 06:54 Pulse Rate 81 04/06/18 06:54 Respiratory Rate 18 04/06/18 06:54 Blood Pressure 157/78 04/06/18 06:54 O2 Sat by Pulse Oximetry (%) 99 04/05/18 20:21 Cardiovascular: Yes: S1, S2 Respiratory: Yes: Rhonchi, Other (trach) Gastrointestinal: Yes: Normal Bowel Sounds, Soft Edema: Yes Edema: LLE: 1+ Labs: CBC, BMP 04/03/18 05:03 04/03/18 05:03 INR, PTT INR 1.04 (0.83-1.09) 03/30/18 09:39 Assessment/Plan - Problems (1) Acute bronchitis Assessment/Plan: -Pulmonary consult on board -IV abx -nasal O2 -bronchodilator -tapering IV medrol Code(s): J20.9 - ACUTE BRONCHITIS, UNSPECIFIED (2) Asthma exacerbation in COPD -Nebs -IV Steroids Code(s): J44.1 - CHRONIC OBSTRUCTIVE PULMONARY DISEASE W (ACUTE) EXACERBATION; J45.901 - UNSPECIFIED ASTHMA WITH (ACUTE) EXACERBATION (3) Diabetes mellitus Assessment/Plan: -A1c 7.0 -BGM ACHS -diabetic diet -RD consult -Insulin: levemir + novolog Code(s): E11.9 - TYPE 2 DIABETES MELLITUS WITHOUT COMPLICATIONS Qualifiers: Diabetes mellitus type: type 2 Diabetes mellitus complication detail: with unspecified neuropathy (4) Anemia Assessment/Plan: -stable -Check iron profile, thyroid profile, B 12, folate and stool OB Code(s): D64.9 - ANEMIA, UNSPECIFIED (5) Hx of CABG Code(s): Z95.1 - PRESENCE OF AORTOCORONARY BYPASS GRAFT (6) SOB -CXR -Labs -[facility] (7) Chronic back pain -S/P Laminectomy -PT--will benefit from soria Code(s): M54.9 - DORSALGIA, UNSPECIFIED; G89.29 - OTHER CHRONIC PAIN Qualifiers:
[2018-04-06 10:20] LABS: N-TERMINAL BNP 680.6 pg/ml (5-125)
--- NOTE | 2018-04-06 10:57 | PN ---
Progress Note, Physician History of Present Illness: pulmonary alert,less congested,less dyspneic - Current Medication List Current Medications: Active Medications Albuterol Sulfate (Ventolin 0.083% Nebulizer Soln -) 1 amp NEB Q4H PRN PRN Reason: SHORT OF BREATH/WHEEZING Last Admin: 04/05/18 16:42 Dose: 1 amp Amino Acids (Prosource No Carb Liquid Pkt) 30 ml PO BID@0800,1730 [facility] Last Admin: 04/06/18 08:59 Dose: 30 ml Amitriptyline HCl (Elavil -) 25 mg PO DAILY [facility] Last Admin: 04/06/18 09:00 Dose: 25 mg Amlodipine Besylate (Norvasc -) 10 mg PO DAILY [facility] Last Admin: 04/06/18 09:00 Dose: 10 mg Arformoterol Tartrate (Brovana (Restricted To Pulmonology/Resp) -) 1 amp NEB RBID [facility] Last Admin: 04/06/18 07:50 Dose: 1 amp Aspirin (Ecotrin -) 81 mg PO DAILY [facility] Last Admin: 04/06/18 09:00 Dose: 81 mg Budesonide/Formoterol Fumarate (Symbicort 160/4.5mcg -) 1 puff IH DAILY [facility] Last Admin: 04/06/18 09:01 Dose: 1 puff Clopidogrel Bisulfate (Plavix -) 75 mg PO DAILY [facility] Last Admin: 04/06/18 09:01 Dose: 75 mg Ezetimibe (Zetia -) 10 mg PO DAILY [facility] Last Admin: 04/06/18 09:01 Dose: 10 mg Finasteride (Proscar -) 5 mg PO DAILY [facility] Last Admin: 04/06/18 09:00 Dose: 5 mg Furosemide (Lasix -) 40 mg PO DAILY [facility] Last Admin: 04/06/18 09:00 Dose: 40 mg Gabapentin (Neurontin -) 300 mg PO BID [facility] Last Admin: 04/06/18 09:00 Dose: 300 mg Heparin Sodium (Porcine) (Heparin -) 5,000 unit SQ BID [facility] Last Admin: 04/06/18 09:00 Dose: 5,000 unit Hydromorphone HCl (Dilaudid -) 4 mg PO Q4H PRN PRN Reason: PAIN LEVEL 7 - 10 Last Admin: 04/06/18 05:28 Dose: 4 mg Ceftriaxone Sodium 500 mg/ (Dextrose) 50 mls @ 100 mls/hr IVPB DAILY [facility] Last Admin: 04/05/18 11:12 Dose: 100 mls/hr Insulin Aspart (Novolog Mix 70/30 Vial) 40 units SQ BIDAC [facility] Last Admin: 04/06/18 06:47 Dose: 40 units Insulin Aspart (Novolog Vial Sliding Scale -) 1 vial SQ ACHS [facility]; Protocol Last Admin: 04/06/18 06:47 Dose: 14 units Methylprednisolone Sodium Succinate (Solu-Medrol -) 40 mg IVPUSH BID [facility] Last Admin: 04/06/18 09:01 Dose: 40 mg Montelukast Sodium (Singulair -) 10 mg PO [facility] Last Admin: 04/05/18 21:17 Dose: 10 mg Morphine Sulfate (Morphine Sulfate) 4 mg IVPUSH Q4H PRN PRN Reason: PAIN LEVEL 6-10 Last Admin: 04/06/18 07:09 Dose: 4 mg Non-Formulary Medication (Mesalamine [Pentasa]) 500 mg PO DAILY [facility] Pancrelipase (Creon Dr 36,000 Units Capsule) 1 cap PO TIDCM [facility] Last Admin: 04/06/18 09:00 Dose: 1 cap Polyethylene Glycol (Miralax (For Daily Use) -) 17 gm PO BID [facility] Last Admin: 04/06/18 09:00 Dose: Not Given Ramipril (Altace -) 10 mg PO DAILY [facility] Last Admin: 04/06/18 09:00 Dose: 10 mg Ranitidine HCl (Zantac -) 150 mg PO BID [facility] Last Admin: 04/06/18 09:01 Dose: 150 mg Rosuvastatin Calcium (Crestor -) 20 mg PO [facility] Last Admin: 04/05/18 21:17 Dose: 20 mg Tamsulosin HCl (Flomax -) 0.4 mg PO DAILY@0830 [facility] Last Admin: 04/06/18 09:00 Dose: 0.4 mg - Objective Vital Signs: Vital Signs Temperature 98.2 F 04/06/18 06:54 Pulse Rate 81 04/06/18 06:54 Respiratory Rate 18 04/06/18 06:54 Blood Pressure 157/78 04/06/18 06:54 O2 Sat by Pulse Oximetry (%) 99 04/05/18 20:21 Constitutional: Yes: Well Nourished, Calm, Obese Eyes: Yes: WNL HENT: Yes: WNL Neck: Yes: WNL Cardiovascular: Yes: Regular Rate and Rhythm, S1, S2 Respiratory: Yes: Wheezes (few wheezes) Gastrointestinal: Yes: Normal Bowel Sounds, Soft Extremities: Yes: WNL Edema: Yes (lle ) Labs: CBC, BMP Assessment/Plan Problem List - Problems (1) Asthma exacerbation Code(s): J45.901 - UNSPECIFIED ASTHMA WITH (ACUTE) EXACERBATION (2) Acute bronchitis Code(s): J20.9 - ACUTE BRONCHITIS, UNSPECIFIED (3) Chronic pain Code(s): G89.29 - OTHER CHRONIC PAIN Qualifiers: Chronic pain type: chronic pain syndrome Qualified Code(s): G89.4 - Chronic pain syndrome (4) Chronic pancreatitis Code(s): K86.1 - OTHER CHRONIC PANCREATITIS Qualifiers: Pancreatitis type: unspecified pancreatitis type Qualified Code(s): K86.1 - Other chronic pancreatitis (5) Coronary artery disease Code(s): I25.10 - ATHSCL HEART DISEASE OF [place] CORONARY ARTERY W/O ANG PCTRS (6) Diabetes mellitus Code(s): E11.9 - TYPE 2 DIABETES MELLITUS WITHOUT COMPLICATIONS Qualifiers: Diabetes mellitus type: type 2 Diabetes mellitus complication detail: with unspecified neuropathy (7) Hyperlipidemia Code(s): E78.5 - HYPERLIPIDEMIA, UNSPECIFIED (8) Hypertension Code(s): I10 - ESSENTIAL (PRIMARY) HYPERTENSION Qualifiers: Hypertension type: essential hypertension Qualified Code(s): I10 - Essential (primary) hypertension Assessment/Plan Acute Asthma Exacerbation improving Acute Bronchitis vs r/o Pneumonia Lactic Acidosis Obstructive Sleep Apnea s/p tracheostomy CAD s/p CABG HTN DM Hyperlipidemia Chronic Back Pain Opiate Dependence - IV medrol - inhaled bronchodilators standing and PRN - monitor peak flow - O2 to keep SpO2>90% - uncap tracheostomy when sleeping - glucose control while on systemic steroids - DVT prophylaxis DR VANESSA
--- NOTE | 2018-04-06 11:19 | PN ---
Progress Note, Physician History of Present Illness: The patient is a 62 year old black male with significant history of CAD, [place]--> CABG; s/p coronary stents x 6 (most recently 12/2015),hypertension, hyperlipidemia, chronic pancreatitis, chronic back pain (takes oxycodone), SBO, incarcerated hernia s/p repair x2 (September 2017), H.Pylori, BPH, COPD, bronchial asthma,, tracheostomy in place (unplugs when sleeping for sleep apnea), anxiety , who presents to the ED complaining of one week of intermittent fevers and chills, productive cough, generalized weakness, shortness of breath, and chest tightness. The patient states he feels sweaty one minute and cold the next. He states his cough is productive of beige sputum. He states he has been having chest tightness that radiates to his back which is exacerbated by his cough. He denies blood in his sputum. He denies radiation of chest pain. The patient states he has been using his nebulizers at home every 4 hours with little to no resolve of symptoms. He states he is concerned for pneumonia at this time. He denies any mucus, sputum, or blood from his trach tube. He states he cleans the tube regularly. No travel or sick contacts. - Current Medication List Current Medications: Active Medications Albuterol Sulfate (Ventolin 0.083% Nebulizer Soln -) 1 amp NEB Q4H PRN PRN Reason: SHORT OF BREATH/WHEEZING Last Admin: 04/05/18 16:42 Dose: 1 amp Albuterol/Ipratropium (Duoneb -) 1 amp NEB RQID [facility] Amino Acids (Prosource No Carb Liquid Pkt) 30 ml PO BID@0800,1730 [facility] Last Admin: 04/06/18 08:59 Dose: 30 ml Amitriptyline HCl (Elavil -) 25 mg PO DAILY [facility] Last Admin: 04/06/18 09:00 Dose: 25 mg Amlodipine Besylate (Norvasc -) 10 mg PO DAILY [facility] Last Admin: 04/06/18 09:00 Dose: 10 mg Arformoterol Tartrate (Brovana (Restricted To Pulmonology/Resp) -) 1 amp NEB RBID [facility] Last Admin: 04/06/18 07:50 Dose: 1 amp Aspirin (Ecotrin -) 81 mg PO DAILY [facility] Last Admin: 04/06/18 09:00 Dose: 81 mg Budesonide/Formoterol Fumarate (Symbicort 160/4.5mcg -) 1 puff IH DAILY [facility] Last Admin: 04/06/18 09:01 Dose: 1 puff Clopidogrel Bisulfate (Plavix -) 75 mg PO DAILY [facility] Last Admin: 04/06/18 09:01 Dose: 75 mg Ezetimibe (Zetia -) 10 mg PO DAILY [facility] Last Admin: 04/06/18 09:01 Dose: 10 mg Finasteride (Proscar -) 5 mg PO DAILY [facility] Last Admin: 04/06/18 09:00 Dose: 5 mg Furosemide (Lasix -) 40 mg PO DAILY [facility] Last Admin: 04/06/18 09:00 Dose: 40 mg Gabapentin (Neurontin -) 300 mg PO BID [facility] Last Admin: 04/06/18 09:00 Dose: 300 mg Heparin Sodium (Porcine) (Heparin -) 5,000 unit SQ BID [facility] Last Admin: 04/06/18 09:00 Dose: 5,000 unit Hydromorphone HCl (Dilaudid -) 4 mg PO Q4H PRN PRN Reason: PAIN LEVEL 7 - 10 Last Admin: 04/06/18 05:28 Dose: 4 mg Ceftriaxone Sodium 500 mg/ (Dextrose) 50 mls @ 100 mls/hr IVPB DAILY [facility] Last Admin: 04/05/18 11:12 Dose: 100 mls/hr Insulin Aspart (Novolog Mix 70/30 Vial) 40 units SQ BIDAC [facility] Last Admin: 04/06/18 06:47 Dose: 40 units Insulin Aspart (Novolog Vial Sliding Scale -) 1 vial SQ ACHS [facility]; Protocol Last Admin: 04/06/18 06:47 Dose: 14 units Methylprednisolone Sodium Succinate (Solu-Medrol -) 40 mg IVPUSH BID [facility] Last Admin: 04/06/18 09:01 Dose: 40 mg Montelukast Sodium (Singulair -) 10 mg PO HS [facility] Last Admin: 04/05/18 21:17 Dose: 10 mg Non-Formulary Medication (Mesalamine [Pentasa]) 500 mg PO DAILY [facility] Pancrelipase (Creon Dr 36,000 Units Capsule) 1 cap PO TIDCM [facility] Last Admin: 04/06/18 09:00 Dose: 1 cap Pantoprazole Sodium (Protonix -) 40 mg PO DAILY [facility] Polyethylene Glycol (Miralax (For Daily Use) -) 17 gm PO BID [facility] Last Admin: 04/06/18 09:00 Dose: Not Given Ramipril (Altace -) 10 mg PO DAILY [facility] Last Admin: 04/06/18 09:00 Dose: 10 mg Ranitidine HCl (Zantac -) 150 mg PO BID [facility] Last Admin: 04/06/18 09:01 Dose: 150 mg Rosuvastatin Calcium (Crestor -) 20 mg PO HS [facility] Last Admin: 04/05/18 21:17 Dose: 20 mg Tamsulosin HCl (Flomax -) 0.4 mg PO DAILY@0830 [facility] Last Admin: 04/06/18 09:00 Dose: 0.4 mg - Objective Vital Signs: Vital Signs Temperature 98.2 F 04/06/18 06:54 Pulse Rate 81 04/06/18 06:54 Respiratory Rate 18 04/06/18 06:54 Blood Pressure 157/78 04/06/18 06:54 O2 Sat by Pulse Oximetry (%) 99 04/05/18 20:21 Eyes: Yes: WNL, Conjunctiva Clear, EOM Intact HENT: Yes: WNL, Atraumatic, Normocephalic Neck: Yes: WNL, Supple, Trachea Midline Cardiovascular: Yes: WNL, Regular Rate and Rhythm Respiratory: Yes: WNL, Regular, CTA Bilaterally Gastrointestinal: Yes: WNL, Normal Bowel Sounds Genitourinary: Yes: WNL Musculoskeletal: Yes: WNL Extremities: Yes: WNL Edema: No Integumentary: Yes: WNL Neurological: Yes: WNL, Alert, Oriented ...Motor Strength: WNL Psychiatric: Yes: WNL Labs: CBC, BMP 04/03/18 05:03 04/03/18 05:03 INR, PTT INR 1.04 (0.83-1.09) 03/30/18 09:39 Assessment/Plan - Problems (1) Acute bronchitis Assessment/Plan: f/u with vessel ordinary seaman Code(s): J20.9 - ACUTE BRONCHITIS, UNSPECIFIED (2) Asthma exacerbation in COPD Assessment/Plan: s/p tracehostomy. Hx sleep apnea; s/p tracheostomy Bronchodilators, O2, steroids, antibiotics per vessel ordinary seaman. Code(s): J44.1 - CHRONIC OBSTRUCTIVE PULMONARY DISEASE W (ACUTE) EXACERBATION; J45.901 - UNSPECIFIED ASTHMA WITH (ACUTE) EXACERBATION (3) Pneumonia Assessment/Plan: on antibiotics; f/u cultures. CXR PA and Lat Code(s): J18.9 - PNEUMONIA, UNSPECIFIED ORGANISM Qualifiers: (4) Acute on chronic diastolic (congestive) heart failure Assessment/Plan: On ramipril, amlodipine (dose increased to 10 mg daily for better control of HTN ), furosemide. BNP > 1,500 Double that of a year abo). F/u BUn/Cr, electrolytes, daily weight, Is and Os. CXR PA and Lat if refractory to conventional Rx of CHF and COPD. . Code(s): I50.33 - ACUTE ON CHRONIC DIASTOLIC (CONGESTIVE) HEART FAILURE (5) Hx of CABG Assessment/Plan: f/u cardiac hx with pt's home health travel pt, Dr. Bola Elaine; discussed pt's present condition with him. Code(s): Z95.1 - PRESENCE OF AORTOCORONARY BYPASS GRAFT (6) H/O heart artery stent Assessment/Plan: On ASA and clopidogrel. TNI < 0.02 x 3 EKG: sinus tahcycardia initially, with possible old IWMI; repeat today shows normal study. Code(s): Z95.5 - PRESENCE OF CORONARY ANGIOPLASTY IMPLANT AND GRAFT (7) BPH (benign prostatic hyperplasia) Assessment/Plan: On Proscar. Code(s): N40.0 - BENIGN PROSTATIC HYPERPLASIA WITHOUT LOWER URINRY TRACT SYMP (8) Hyperlipidemia Assessment/Plan: on zetia and statin. (total cholesterol < 100 mg/dL 11/2017; now, however, LDL is 109, and total chol 183 mg/dL ); keep LDL well below 70 mg/dL. Rosuvastatin increased from 10 to 20 mg daily. Code(s): E78.5 - HYPERLIPIDEMIA, UNSPECIFIED (9) Atypical chest pain Assessment/Plan: TNI < 0.02 x 3. EKG: sinus tachycardia; f/u repeat today (HR generally WNL over the past 24 hours). Stress MIBI 07/2016: mild periinfarct inderior wall ischemia. ECHO 12/2017: normal LVEF; mild LVH; mild LAE; trace-mild MR and TR. Discussed pt with his home health travel pt, Dr. Elaine. Pt is seen frequently for chest pain, which is often secondary to pulmonary issues. Aggressive medical managament of CAD with nitrates, ASA and cloopidogrel, statin + Zetia, ACEI (for CAD, HGN, DM). Physical therapy (pt does very little walking since back surgery 12/2017). No chest pain now; +tachypnea, difficulty breathing (COPD, asthma, PNA). From a cardiac perspective, pt may be followed as an outpatient by his home health travel pt. Code(s): R07.89 - OTHER CHEST PAIN (10) Sleep apnea Code(s): G47.30 - SLEEP APNEA, UNSPECIFIED (11) Leukocytosis Assessment/Plan: On IV antibiotics. rpeortedly febrile in days before admission. f/u cultures. F/u with ID, PMD. Code(s): D72.829 - ELEVATED WHITE BLOOD CELL COUNT, UNSPECIFIED (12) Acute adjustment disorder with anxiety Code(s): F43.22 - ADJUSTMENT DISORDER WITH ANXIETY (13) Opiate dependence Assessment/Plan: chronic pain from "all over", particularly in back (hx cervical and lumbar surgeries). Pain management and physical rehbailitation are crucial. Pt was on [employer] team. He plans to use the discipline learned there to help him regain strength, and eventually decrease need for pain medications. Code(s): F11.20 - OPIOID DEPENDENCE, UNCOMPLICATED (14) Diabetes mellitus Assessment/Plan: elevated glucose; also on steroids. On ACEI (CAD; HTN; DM; CHF). 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 Code(s): E11.9 - TYPE 2 DIABETES MELLITUS WITHOUT COMPLICATIONS Qualifiers: Diabetes mellitus type: type 2 Diabetes mellitus complication detail: with unspecified neuropathy
--- NOTE | 2018-04-06 11:40 | EKG ---
Test Reason : Blood Pressure : / mmHG Vent. Rate : 088 BPM Atrial Rate : 088 BPM P-R Int : 148 ms QRS Dur : 092 ms QT Int : 366 ms P-R-T Axes : 046 005 022 degrees QTc Int : 442 ms NORMAL SINUS RHYTHM INFERIOR INFARCT , AGE UNDETERMINED ABNORMAL ECG WHEN COMPARED WITH ECG OF 01-APR-2018 14:24, INFERIOR INFARCT IS NOW PRESENT Confirmed by GIOVANNI BULLARD, STEVEN ([id number]) on 04/06/2018 11:40:23 AM Referred By: MADYSON ROSALES Confirmed By:STEVEN DAVILA MD
[2018-04-06] MEDS ORDERED: ALBUTEROL SO4 2.5/IPRATROPIUM 0.5 INH SOL 3 ML VIAL.NEB. NEB SCH (12:00)
[2018-04-06] MEDS: PANTOPRAZOLE 40 MG TABLET (FP) PO SCH (17:04)
[2018-04-06] MEDS: CEFTRIAXONE 500 MG in DEXTROSE 5%-WATER - 50 ML IVPB SCH (17:04)
[2018-04-06 17:28] VITALS: BMI 34.5
[2018-04-06] MEDS ORDERED: INSULIN (NOVOLOG) ASPART 100 UNITS/ML 10ML VIAL ONE (21:13)
[2018-04-06] MEDS: morphine SO4 SUSTAINED ACTING 15 MG TABLET.SA PO SCH (21:26)
[2018-04-06] MEDS: ROSUVASTATIN CA 20 MG TABLET (FP) PO SCH (21:26)
[2018-04-06] MEDS: MONTELUKAST NA 10 MG TABLET PO SCH (21:26)
[2018-04-07] MEDS: INSULIN (NOVOLOG MIX 70/30) 100 UNITS/ML MDV SQ SCH ×2 (06:15→17:29)
[2018-04-07] MEDS: INSULIN SLIDING SCALE (NOVOLOG) 1 VIAL SQ SCH ×4 (06:16→22:07)
[2018-04-07] MEDS: ARFORMOTEROL TARTRATE 15 MCG/2 ML VIAL NEB SCH ×2 (07:50→21:08)
[2018-04-07] MEDS: AMINO ACIDS/PROTEIN HYDROLYS 30 ML LIQUID.PKT PO SCH ×2 (08:19→17:29)
[2018-04-07] MEDS: LIPASE/PROTEASE/AMYLASE 36,000 UNIT CAPSULE PO SCH ×3 (08:19→17:27)
[2018-04-07] MEDS: TAMSULOSIN HCL 0.4 MG CAP PO SCH (08:20)
[2018-04-07] MEDS: BUDESONIDE/FORMETEROL FUMARATE 160/4.5 mcg INHALER IH SCH (09:28)
[2018-04-07] MEDS: morphine SO4 SUSTAINED ACTING 15 MG TABLET.SA PO SCH ×2 (09:29→22:10)
[2018-04-07] MEDS: methylPREDNISolone NA SUCC 40 MG/1 ML VIAL IVPUSH SCH ×2 (09:29→22:09)
[2018-04-07] MEDS: RANITIDINE HCL 150 MG TABLET (FP) PO SCH ×2 (09:30→22:09)
[2018-04-07] MEDS: amLODIPine BESYLATE 10 MG TABLET (FP) PO SCH (09:30)
[2018-04-07] MEDS: ASPIRIN COATED 81 MG TABLET.EC PO SCH (09:30)
[2018-04-07] MEDS: FINASTERIDE 5 MG TABLET (FP) PO SCH (09:30)
[2018-04-07] MEDS: AMITRIPTYLINE HCL 25 MG TABLET (FP) PO SCH (09:30)
[2018-04-07] MEDS: CLOPIDOGREL BISULFATE 75 MG TABLET (FP) PO SCH (09:30)
[2018-04-07] MEDS: FUROSEMIDE 40 MG TABLET (FP) PO SCH (09:30)
[2018-04-07] MEDS: PANTOPRAZOLE 40 MG TABLET (FP) PO SCH (09:30)
[2018-04-07] MEDS: GABAPENTIN 300 MG CAPSULE (FP) PO SCH ×2 (09:30→22:09)
[2018-04-07] MEDS: RAMIPRIL 5 MG CAPSULE (FP) PO SCH (09:31)
[2018-04-07] MEDS: HEPARIN NA (PORCINE) 5,000 UNITS/ML 1ML VIAL SQ SCH ×2 (09:31→22:07)
[2018-04-07] MEDS: EZETIMIBE 10 MG TABLET (FP) PO SCH (09:32)
[2018-04-07] MEDS: CEFTRIAXONE 500 MG in DEXTROSE 5%-WATER - 50 ML IVPB SCH (09:38)
[2018-04-07] MEDS: POLYETHYLENE GLYCOL 3350 119 GM BTL PO SCH ×2 (09:39→22:11)
--- NOTE | 2018-04-07 10:15 | PN ---
Progress Note, Physician History of Present Illness: The patient is a 62 year old black male with significant history of CAD, [place]--> CABG; s/p coronary stents x 6 (most recently 12/2015; small area of mild rosamaria- infarct ischemia on 07/2016 dobutamine stress MIBI), hypertension, hyperlipidemia, chronic pancreatitis, chronic back pain/surgery (takes oxycodone ), SBO, incarcerated hernia s/p repair x2 (September 2017), H.Pylori, BPH, COPD, bronchial asthma, tracheostomy in place (unplugs when sleeping for sleep apnea) , anxiety (on ELavil), who presents to the ED complaining of one week of intermittent fevers and chills, productive cough, generalized weakness, shortness of breath, and chest tightness. The patient states he feels sweaty one minute and cold the next. He states his cough is productive of beige sputum. He states he has been having chest tightness that radiates to his back which is exacerbated by his cough. He denies blood in his sputum. He denies radiation of chest pain. The patient states he has been using his nebulizers at home every 4 hours with little to no resolve of symptoms. He states he is concerned for pneumonia at this time. He denies any mucus, sputum, or blood from his trach tube. He states he cleans the tube regularly. No travel or sick contacts. Secondarily, he states he has chronic abdominal pain and is scheduled for endoscopy to evaluate his benign pancreatic tumors. - Current Medication List Current Medications: Active Medications Albuterol Sulfate (Ventolin 0.083% Nebulizer Soln -) 1 amp NEB Q4H PRN PRN Reason: SHORT OF BREATH/WHEEZING Last Admin: 04/05/18 16:42 Dose: 1 amp Albuterol/Ipratropium (Duoneb -) 1 amp NEB RQID [facility] Amino Acids (Prosource No Carb Liquid Pkt) 30 ml PO BID@0800,1730 [facility] Last Admin: 04/07/18 08:19 Dose: 30 ml Amitriptyline HCl (Elavil -) 25 mg PO DAILY [facility] Last Admin: 04/07/18 09:30 Dose: 25 mg Amlodipine Besylate (Norvasc -) 10 mg PO DAILY [facility] Last Admin: 04/07/18 09:30 Dose: 10 mg Arformoterol Tartrate (Brovana (Restricted To Pulmonology/Resp) -) 1 amp NEB RBID [facility] Last Admin: 04/07/18 07:50 Dose: 1 amp Aspirin (Ecotrin -) 81 mg PO DAILY [facility] Last Admin: 04/07/18 09:30 Dose: 81 mg Budesonide/Formoterol Fumarate (Symbicort 160/4.5mcg -) 1 puff IH DAILY [facility] Last Admin: 04/07/18 09:28 Dose: 1 puff Clopidogrel Bisulfate (Plavix -) 75 mg PO DAILY [facility] Last Admin: 04/07/18 09:30 Dose: 75 mg Ezetimibe (Zetia -) 10 mg PO DAILY [facility] Last Admin: 04/07/18 09:32 Dose: 10 mg Finasteride (Proscar -) 5 mg PO DAILY [facility] Last Admin: 04/07/18 09:30 Dose: 5 mg Furosemide (Lasix -) 40 mg PO DAILY [facility] Last Admin: 04/07/18 09:30 Dose: 40 mg Gabapentin (Neurontin -) 300 mg PO BID [facility] Last Admin: 04/07/18 09:30 Dose: 300 mg Heparin Sodium (Porcine) (Heparin -) 5,000 unit SQ BID [facility] Last Admin: 04/07/18 09:31 Dose: 5,000 unit Hydromorphone HCl (Dilaudid -) 4 mg PO Q4H PRN PRN Reason: PAIN LEVEL 7 - 10 Last Admin: 04/07/18 00:35 Dose: 4 mg Ceftriaxone Sodium 500 mg/ (Dextrose) 50 mls @ 100 mls/hr IVPB DAILY [facility] Last Admin: 04/07/18 09:38 Dose: 100 mls/hr Insulin Aspart (Novolog Mix 70/30 Vial) 40 units SQ BIDAC [facility] Last Admin: 04/07/18 06:15 Dose: 40 units Insulin Aspart (Novolog Vial Sliding Scale -) 1 vial SQ ACHS [facility]; Protocol Last Admin: 04/07/18 06:16 Dose: 10 units Methylprednisolone Sodium Succinate (Solu-Medrol -) 40 mg IVPUSH BID [facility] Last Admin: 04/07/18 09:29 Dose: 40 mg Montelukast Sodium (Singulair -) 10 mg PO HS [facility] Last Admin: 04/06/18 21:26 Dose: 10 mg Morphine Sulfate (Ms Contin -) 15 mg PO BID [facility] Last Admin: 04/07/18 09:29 Dose: 15 mg Non-Formulary Medication (Mesalamine [Pentasa]) 500 mg PO DAILY [facility] Pancrelipase (Creon Dr 36,000 Units Capsule) 1 cap PO TIDCM [facility] Last Admin: 04/07/18 08:19 Dose: 1 cap Pantoprazole Sodium (Protonix -) 40 mg PO DAILY [facility] Last Admin: 04/07/18 09:30 Dose: 40 mg Polyethylene Glycol (Miralax (For Daily Use) -) 17 gm PO BID [facility] Last Admin: 04/07/18 09:39 Dose: 17 gm Ramipril (Altace -) 10 mg PO DAILY [facility] Last Admin: 04/07/18 09:31 Dose: 10 mg Ranitidine HCl (Zantac -) 150 mg PO BID [facility] Last Admin: 04/07/18 09:30 Dose: 150 mg Rosuvastatin Calcium (Crestor -) 20 mg PO HS [facility] Last Admin: 04/06/18 21:26 Dose: 20 mg Tamsulosin HCl (Flomax -) 0.4 mg PO DAILY@0830 [facility] Last Admin: 04/07/18 08:20 Dose: 0.4 mg - Objective Vital Signs: Vital Signs Temperature 98.0 F 04/07/18 08:35 Pulse Rate 94 H 04/07/18 08:35 Respiratory Rate 20 04/07/18 08:38 Blood Pressure 144/91 04/07/18 08:35 O2 Sat by Pulse Oximetry (%) 99 04/07/18 08:38 Labs: CBC, BMP 04/03/18 05:03 04/03/18 05:03 INR, PTT INR 1.04 (0.83-1.09) 03/30/18 09:39 Problem List - Problems (1) Acute bronchitis Code(s): J20.9 - ACUTE BRONCHITIS, UNSPECIFIED (2) Asthma exacerbation in COPD Code(s): J44.1 - CHRONIC OBSTRUCTIVE PULMONARY DISEASE W (ACUTE) EXACERBATION; J45.901 - UNSPECIFIED ASTHMA WITH (ACUTE) EXACERBATION (3) Pneumonia Code(s): J18.9 - PNEUMONIA, UNSPECIFIED ORGANISM Qualifiers: (4) Acute on chronic diastolic (congestive) heart failure Code(s): I50.33 - ACUTE ON CHRONIC DIASTOLIC (CONGESTIVE) HEART FAILURE (5) Hx of CABG Code(s): Z95.1 - PRESENCE OF AORTOCORONARY BYPASS GRAFT (6) H/O heart artery stent Code(s): Z95.5 - PRESENCE OF CORONARY ANGIOPLASTY IMPLANT AND GRAFT (7) BPH (benign prostatic hyperplasia) Code(s): N40.0 - BENIGN PROSTATIC HYPERPLASIA WITHOUT LOWER URINRY TRACT SYMP (8) Hyperlipidemia Code(s): E78.5 - HYPERLIPIDEMIA, UNSPECIFIED (9) Atypical chest pain Code(s): R07.89 - OTHER CHEST PAIN (10) Sleep apnea Code(s): G47.30 - SLEEP APNEA, UNSPECIFIED (11) Leukocytosis Code(s): D72.829 - ELEVATED WHITE BLOOD CELL COUNT, UNSPECIFIED (12) Acute adjustment disorder with anxiety Code(s): F43.22 - ADJUSTMENT DISORDER WITH ANXIETY (13) Opiate dependence Code(s): F11.20 - OPIOID DEPENDENCE, UNCOMPLICATED (14) Diabetes mellitus Code(s): E11.9 - TYPE 2 DIABETES MELLITUS WITHOUT COMPLICATIONS Qualifiers: Diabetes mellitus type: type 2 Diabetes mellitus complication detail: with unspecified neuropathy
--- NOTE | 2018-04-07 10:41 | PN ---
Progress Note, Physician History of Present Illness: PULMONARY ALERT,FEELING BETTER,LESS DYSPNEIC - Current Medication List Current Medications: Active Medications Albuterol Sulfate (Ventolin 0.083% Nebulizer Soln -) 1 amp NEB Q4H PRN PRN Reason: SHORT OF BREATH/WHEEZING Last Admin: 04/05/18 16:42 Dose: 1 amp Albuterol/Ipratropium (Duoneb -) 1 amp NEB RQID [facility] Amino Acids (Prosource No Carb Liquid Pkt) 30 ml PO BID@0800,1730 [facility] Last Admin: 04/07/18 08:19 Dose: 30 ml Amitriptyline HCl (Elavil -) 25 mg PO DAILY [facility] Last Admin: 04/07/18 09:30 Dose: 25 mg Amlodipine Besylate (Norvasc -) 10 mg PO DAILY [facility] Last Admin: 04/07/18 09:30 Dose: 10 mg Arformoterol Tartrate (Brovana (Restricted To Pulmonology/Resp) -) 1 amp NEB RBID [facility] Last Admin: 04/07/18 07:50 Dose: 1 amp Aspirin (Ecotrin -) 81 mg PO DAILY [facility] Last Admin: 04/07/18 09:30 Dose: 81 mg Budesonide/Formoterol Fumarate (Symbicort 160/4.5mcg -) 1 puff IH DAILY [facility] Last Admin: 04/07/18 09:28 Dose: 1 puff Clopidogrel Bisulfate (Plavix -) 75 mg PO DAILY [facility] Last Admin: 04/07/18 09:30 Dose: 75 mg Ezetimibe (Zetia -) 10 mg PO DAILY [facility] Last Admin: 04/07/18 09:32 Dose: 10 mg Finasteride (Proscar -) 5 mg PO DAILY [facility] Last Admin: 04/07/18 09:30 Dose: 5 mg Furosemide (Lasix -) 40 mg PO DAILY [facility] Last Admin: 04/07/18 09:30 Dose: 40 mg Gabapentin (Neurontin -) 300 mg PO BID [facility] Last Admin: 04/07/18 09:30 Dose: 300 mg Heparin Sodium (Porcine) (Heparin -) 5,000 unit SQ BID [facility] Last Admin: 04/07/18 09:31 Dose: 5,000 unit Hydromorphone HCl (Dilaudid -) 4 mg PO Q4H PRN PRN Reason: PAIN LEVEL 7 - 10 Last Admin: 04/07/18 00:35 Dose: 4 mg Ceftriaxone Sodium 500 mg/ (Dextrose) 50 mls @ 100 mls/hr IVPB DAILY [facility] Last Admin: 04/07/18 09:38 Dose: 100 mls/hr Insulin Aspart (Novolog Mix 70/30 Vial) 40 units SQ BIDAC [facility] Last Admin: 04/07/18 06:15 Dose: 40 units Insulin Aspart (Novolog Vial Sliding Scale -) 1 vial SQ ACHS [facility]; Protocol Last Admin: 04/07/18 06:16 Dose: 10 units Methylprednisolone Sodium Succinate (Solu-Medrol -) 40 mg IVPUSH BID [facility] Last Admin: 04/07/18 09:29 Dose: 40 mg Montelukast Sodium (Singulair -) 10 mg PO HS [facility] Last Admin: 04/06/18 21:26 Dose: 10 mg Morphine Sulfate (Ms Contin -) 15 mg PO BID [facility] Last Admin: 04/07/18 09:29 Dose: 15 mg Non-Formulary Medication (Mesalamine [Pentasa]) 500 mg PO DAILY [facility] Pancrelipase (Creon Dr 36,000 Units Capsule) 1 cap PO TIDCM [facility] Last Admin: 04/07/18 08:19 Dose: 1 cap Pantoprazole Sodium (Protonix -) 40 mg PO DAILY [facility] Last Admin: 04/07/18 09:30 Dose: 40 mg Polyethylene Glycol (Miralax (For Daily Use) -) 17 gm PO BID [facility] Last Admin: 04/07/18 09:39 Dose: 17 gm Ramipril (Altace -) 10 mg PO DAILY [facility] Last Admin: 04/07/18 09:31 Dose: 10 mg Ranitidine HCl (Zantac -) 150 mg PO BID [facility] Last Admin: 04/07/18 09:30 Dose: 150 mg Rosuvastatin Calcium (Crestor -) 20 mg PO HS [facility] Last Admin: 04/06/18 21:26 Dose: 20 mg Tamsulosin HCl (Flomax -) 0.4 mg PO DAILY@0830 [facility] Last Admin: 04/07/18 08:20 Dose: 0.4 mg - Objective Vital Signs: Vital Signs Temperature 98.0 F 04/07/18 08:35 Pulse Rate 94 H 04/07/18 08:35 Respiratory Rate 20 04/07/18 08:38 Blood Pressure 144/91 04/07/18 08:35 O2 Sat by Pulse Oximetry (%) 99 04/07/18 08:38 Constitutional: Yes: Well Nourished, Calm Eyes: Yes: WNL HENT: Yes: WNL Neck: Yes: WNL Cardiovascular: Yes: Regular Rate and Rhythm, S1, S2 Respiratory: Yes: Wheezes (FEW SCATTERED WHEEZES) Gastrointestinal: Yes: Normal Bowel Sounds, Soft Extremities: Yes: WNL Edema: No Assessment/Plan Problem List - Problems (1) Asthma exacerbation Code(s): J45.901 - UNSPECIFIED ASTHMA WITH (ACUTE) EXACERBATION (2) Acute bronchitis Code(s): J20.9 - ACUTE BRONCHITIS, UNSPECIFIED (3) Chronic pain Code(s): G89.29 - OTHER CHRONIC PAIN Qualifiers: Chronic pain type: chronic pain syndrome Qualified Code(s): G89.4 - Chronic pain syndrome (4) Chronic pancreatitis Code(s): K86.1 - OTHER CHRONIC PANCREATITIS Qualifiers: Pancreatitis type: unspecified pancreatitis type Qualified Code(s): K86.1 - Other chronic pancreatitis (5) Coronary artery disease Code(s): I25.10 - ATHSCL HEART DISEASE OF [place] CORONARY ARTERY W/O ANG PCTRS (6) Diabetes mellitus Code(s): E11.9 - TYPE 2 DIABETES MELLITUS WITHOUT COMPLICATIONS Qualifiers: Diabetes mellitus type: type 2 Diabetes mellitus complication detail: with unspecified neuropathy (7) Hyperlipidemia Code(s): E78.5 - HYPERLIPIDEMIA, UNSPECIFIED (8) Hypertension Code(s): I10 - ESSENTIAL (PRIMARY) HYPERTENSION Qualifiers: Hypertension type: essential hypertension Qualified Code(s): I10 - Essential (primary) hypertension Assessment/Plan Acute Asthma Exacerbation improving Acute Bronchitis vs r/o Pneumonia Lactic Acidosis Obstructive Sleep Apnea s/p tracheostomy CAD s/p CABG HTN DM Hyperlipidemia Chronic Back Pain Opiate Dependence - IV medrol,prednisone in am if symptoms continue to improve - inhaled bronchodilators standing and PRN - monitor peak flow - O2 to keep SpO2>90% - uncap tracheostomy when sleeping - glucose control while on systemic steroids - DVT prophylaxis DR VANESSA
--- NOTE | 2018-04-07 11:03 | PN ---
Progress Note, Physician Chief Complaint: patient seen and examined was ambulating when he got sob and chest pressure needed to sit - Current Medication List Current Medications: Active Medications Albuterol Sulfate (Ventolin 0.083% Nebulizer Soln -) 1 amp NEB Q4H PRN PRN Reason: SHORT OF BREATH/WHEEZING Last Admin: 04/05/18 16:42 Dose: 1 amp Albuterol/Ipratropium (Duoneb -) 1 amp NEB RQID [facility] Amino Acids (Prosource No Carb Liquid Pkt) 30 ml PO BID@0800,1730 [facility] Last Admin: 04/07/18 08:19 Dose: 30 ml Amitriptyline HCl (Elavil -) 25 mg PO DAILY [facility] Last Admin: 04/07/18 09:30 Dose: 25 mg Amlodipine Besylate (Norvasc -) 10 mg PO DAILY [facility] Last Admin: 04/07/18 09:30 Dose: 10 mg Arformoterol Tartrate (Brovana (Restricted To Pulmonology/Resp) -) 1 amp NEB RBID [facility] Last Admin: 04/07/18 07:50 Dose: 1 amp Aspirin (Ecotrin -) 81 mg PO DAILY [facility] Last Admin: 04/07/18 09:30 Dose: 81 mg Budesonide/Formoterol Fumarate (Symbicort 160/4.5mcg -) 1 puff IH DAILY [facility] Last Admin: 04/07/18 09:28 Dose: 1 puff Clopidogrel Bisulfate (Plavix -) 75 mg PO DAILY [facility] Last Admin: 04/07/18 09:30 Dose: 75 mg Ezetimibe (Zetia -) 10 mg PO DAILY [facility] Last Admin: 04/07/18 09:32 Dose: 10 mg Finasteride (Proscar -) 5 mg PO DAILY [facility] Last Admin: 04/07/18 09:30 Dose: 5 mg Furosemide (Lasix -) 40 mg PO DAILY [facility] Last Admin: 04/07/18 09:30 Dose: 40 mg Gabapentin (Neurontin -) 300 mg PO BID [facility] Last Admin: 04/07/18 09:30 Dose: 300 mg Heparin Sodium (Porcine) (Heparin -) 5,000 unit SQ BID [facility] Last Admin: 04/07/18 09:31 Dose: 5,000 unit Hydromorphone HCl (Dilaudid -) 4 mg PO Q4H PRN PRN Reason: PAIN LEVEL 7 - 10 Last Admin: 04/07/18 00:35 Dose: 4 mg Ceftriaxone Sodium 500 mg/ (Dextrose) 50 mls @ 100 mls/hr IVPB DAILY [facility] Last Admin: 04/07/18 09:38 Dose: 100 mls/hr Insulin Aspart (Novolog Mix 70/30 Vial) 40 units SQ BIDAC [facility] Last Admin: 04/07/18 06:15 Dose: 40 units Insulin Aspart (Novolog Vial Sliding Scale -) 1 vial SQ ACHS [facility]; Protocol Last Admin: 04/07/18 06:16 Dose: 10 units Methylprednisolone Sodium Succinate (Solu-Medrol -) 40 mg IVPUSH BID [facility] Last Admin: 04/07/18 09:29 Dose: 40 mg Montelukast Sodium (Singulair -) 10 mg PO [facility] Last Admin: 04/06/18 21:26 Dose: 10 mg Morphine Sulfate (Ms Contin -) 15 mg PO BID [facility] Last Admin: 04/07/18 09:29 Dose: 15 mg Non-Formulary Medication (Mesalamine [Pentasa]) 500 mg PO DAILY [facility] Pancrelipase (Creon Dr 36,000 Units Capsule) 1 cap PO TIDCM [facility] Last Admin: 04/07/18 08:19 Dose: 1 cap Pantoprazole Sodium (Protonix -) 40 mg PO DAILY [facility] Last Admin: 04/07/18 09:30 Dose: 40 mg Polyethylene Glycol (Miralax (For Daily Use) -) 17 gm PO BID [facility] Last Admin: 04/07/18 09:39 Dose: 17 gm Ramipril (Altace -) 10 mg PO DAILY [facility] Last Admin: 04/07/18 09:31 Dose: 10 mg Ranitidine HCl (Zantac -) 150 mg PO BID [facility] Last Admin: 04/07/18 09:30 Dose: 150 mg Rosuvastatin Calcium (Crestor -) 20 mg PO HS [facility] Last Admin: 04/06/18 21:26 Dose: 20 mg Tamsulosin HCl (Flomax -) 0.4 mg PO DAILY@0830 [facility] Last Admin: 04/07/18 08:20 Dose: 0.4 mg - Objective Vital Signs: Vital Signs Temperature 98.0 F 04/07/18 08:35 Pulse Rate 94 H 04/07/18 08:35 Respiratory Rate 20 09/27/18 08:38 Blood Pressure 144/91 04/07/18 08:35 O2 Sat by Pulse Oximetry (%) 99 04/07/18 08:38 Labs: CBC, BMP 04/03/18 05:03 04/03/18 05:03 INR, PTT INR 1.04 (0.83-1.09) 03/30/18 09:39 Problem List - Problems (1) Acute bronchitis Assessment/Plan: on medrol complete d7days of iv abx bronchodilators Code(s): J20.9 - ACUTE BRONCHITIS, UNSPECIFIED (2) Asthma exacerbation in COPD Assessment/Plan: iv medrol oygen Code(s): J44.1 - CHRONIC OBSTRUCTIVE PULMONARY DISEASE W (ACUTE) EXACERBATION; J45.901 - UNSPECIFIED ASTHMA WITH (ACUTE) EXACERBATION (3) Hx of CABG Assessment/Plan: plavix zetia crestor Code(s): Z95.1 - PRESENCE OF AORTOCORONARY BYPASS GRAFT (4) Diabetes mellitus Assessment/Plan: bgm insulin Code(s): E11.9 - TYPE 2 DIABETES MELLITUS WITHOUT COMPLICATIONS Qualifiers: Diabetes mellitus type: type 2 Diabetes mellitus complication detail: with unspecified neuropathy
[2018-04-07] MEDS ORDERED: PT OWN MED DRAWER 7, Y5N ONE (17:36)
[2018-04-07] MEDS: MONTELUKAST NA 10 MG TABLET PO SCH (22:09)
[2018-04-07] MEDS: ROSUVASTATIN CA 20 MG TABLET (FP) PO SCH (22:09)
[2018-04-08] MEDS: INSULIN (NOVOLOG MIX 70/30) 100 UNITS/ML MDV SQ SCH (06:02)
[2018-04-08] MEDS: INSULIN SLIDING SCALE (NOVOLOG) 1 VIAL SQ SCH (06:02)
[2018-04-08 06:35] VITALS: TEMP 98.3
[2018-04-08] MEDS: ARFORMOTEROL TARTRATE 15 MCG/2 ML VIAL NEB SCH (07:53)
[2018-04-08] MEDS ORDERED: PT OWN MED DRAWER 7, Y5N ONE (09:05)
[2018-04-08 09:38] VITALS: BP 162/97; PULSE 80
[2018-04-08] MEDS: CLOPIDOGREL BISULFATE 75 MG TABLET (FP) PO SCH (09:45)
[2018-04-08] MEDS: GABAPENTIN 300 MG CAPSULE (FP) PO SCH (09:45)
[2018-04-08] MEDS: PANTOPRAZOLE 40 MG TABLET (FP) PO SCH (09:45)
[2018-04-08] MEDS: ASPIRIN COATED 81 MG TABLET.EC PO SCH (09:45)
[2018-04-08] MEDS: amLODIPine BESYLATE 10 MG TABLET (FP) PO SCH (09:45)
[2018-04-08] MEDS: FINASTERIDE 5 MG TABLET (FP) PO SCH (09:45)
[2018-04-08] MEDS: AMITRIPTYLINE HCL 25 MG TABLET (FP) PO SCH (09:46)
[2018-04-08] MEDS: RANITIDINE HCL 150 MG TABLET (FP) PO SCH (09:46)
[2018-04-08] MEDS: FUROSEMIDE 40 MG TABLET (FP) PO SCH (09:46)
[2018-04-08] MEDS: morphine SO4 SUSTAINED ACTING 15 MG TABLET.SA PO SCH (09:46)
[2018-04-08] MEDS: TAMSULOSIN HCL 0.4 MG CAP PO SCH (09:46)
[2018-04-08] MEDS: methylPREDNISolone NA SUCC 40 MG/1 ML VIAL IVPUSH SCH (09:46)
[2018-04-08] MEDS: AMINO ACIDS/PROTEIN HYDROLYS 30 ML LIQUID.PKT PO SCH (09:47)
[2018-04-08] MEDS: LIPASE/PROTEASE/AMYLASE 36,000 UNIT CAPSULE PO SCH (09:47)
[2018-04-08] MEDS: EZETIMIBE 10 MG TABLET (FP) PO SCH (09:47)
--- NOTE | 2018-04-08 10:34 | DS ---
Physical Examination Vital Signs: Vital Signs Temperature 98.3 F 04/08/18 06:00 Pulse Rate 80 04/08/18 09:37 Respiratory Rate 18 04/08/18 09:37 Blood Pressure 162/97 04/08/18 09:37 O2 Sat by Pulse Oximetry (%) 99 04/07/18 21:00 Cardiovascular: Yes: S1, S2 Respiratory: Yes: Regular, CTA Bilaterally Gastrointestinal: Yes: Normal Bowel Sounds, Soft Labs: CBC, BMP 04/03/18 05:03 04/03/18 05:03 Discharge Summary Reason For Visit: OBSTRUCTIVE CHRONIC BRONCHITIS WITH EXACERBATION Current Active Problems Acute adjustment disorder with anxiety (Acute) Acute bronchitis (Acute) Asthma exacerbation in COPD (Acute) Atypical chest pain (Acute) Bronchitis (Acute) 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 (Acute) H/O heart artery stent (Acute) Hx of CABG (Acute) Opiate dependence (Acute) Pneumonia (Acute) Hospital Course: 62 year old black male with significant history of CAD, [place]-->CABG; s/p coronary stents x 6 (most recently 12/2015),hypertension, hyperlipidemia, chronic pancreatitis, chronic back pain , SBO, incarcerated hernia s/p repair x2 (September 2017), H.Pylori, BPH, COPD, bronchial asthma,, tracheostomy in place (unplugs when sleeping for sleep apnea), anxiety, who presents to the ED complaining of one week of intermittent fevers and chills, productive cough, generalized weakness, shortness of breath, and chest tightness. The patient states he feels sweaty one minute and cold the next. He states his cough is productive of beige sputum. He states he has been having chest tightness that radiates to his back which is exacerbated by his cough. He denies blood in his sputum. He denies radiation of chest pain. The patient states he has been using his nebulizers at home every 4 hours with little to no resolve of symptoms. He states he is concerned for pneumonia at this time. He denies any mucus, sputum, or blood from his trach tube. He states he cleans the tube regularly. No travel or sick contacts. Patient was placed on antibiotics and steroids with improvement pt also with back pain--had recent back surgery--on pain meds requires further physical therapy - Problems (1) Acute bronchitis Assessment/Plan: -Pulmonary consult on board -Off abx -nasal O2 -bronchodilator -tapering IV medrol--po prednisone Code(s): J20.9 - ACUTE BRONCHITIS, UNSPECIFIED (2) Asthma exacerbation in COPD -Nebs -IV Steroids Code(s): J44.1 - CHRONIC OBSTRUCTIVE PULMONARY DISEASE W (ACUTE) EXACERBATION; J45.901 - UNSPECIFIED ASTHMA WITH (ACUTE) EXACERBATION (3) Diabetes mellitus Assessment/Plan: -A1c 7.0 -BGM ACHS -diabetic diet -RD consult -Insulin: novolog and ss Code(s): E11.9 - TYPE 2 DIABETES MELLITUS WITHOUT COMPLICATIONS Qualifiers: Diabetes mellitus type: type 2 Diabetes mellitus complication detail: with unspecified neuropathy (4) Anemia Assessment/Plan: -stable Code(s): D64.9 - ANEMIA, UNSPECIFIED (5) Hx of CABG Code(s): Z95.1 - PRESENCE OF AORTOCORONARY BYPASS GRAFT (6) SOB -CXR noted -improved -Nebs (7) Chronic back pain -S/P Laminectomy -PT--will benefit from soria Code(s): M54.9 - DORSALGIA, UNSPECIFIED; G89.29 - OTHER CHRONIC PAIN Qualifiers: Condition: Improved - Instructions Referrals: Markus Amador MD [Primary Care Provider] - Disposition: TRANSFER ACUTE CARE/OTHER HOSP - Home Medications Comprehensive Discharge Medication List: Ambulatory Orders Albuterol Sulfate Inhaler - [Ventolin HFA Inhaler -] 1 - 2 inh PO Q4H PRN Arformoterol Tartrate [Brovana] 15 mcg ASDIR 08/18/17 Aspirin [Aspirin EC] 81 mg PO DAILY 08/18/17 Budesonide/Formeterol Fumarate [SYMBICORT 160/4.5mcg -] 1 inh PO DAILY 08/18/17 Clopidogrel Bisulfate [Plavix] 75 mg PO DAILY 08/18/17 Dexlansoprazole [Dexilant] 30 mg PO DAILY 08/18/17 Ezetimibe [Zetia -] 10 mg PO DAILY 08/18/17 Furosemide [Lasix] 40 mg PO DAILY 08/18/17 Insulin Lispro [Humalog] 0 unit SQ PRN PRN 08/18/17 Insulin Pump Controller [Snap Insulin Pump Controller] 1 each ASDIR 08/18/17 Montelukast Sodium [Singulair] 10 mg PO DAILY 08/18/17 Ranitidine HCl 150 mg PO PRN PRN 08/18/17 Rosuvastatin Calcium [Crestor] 10 mg PO DAILY 08/18/17 Tiotropium [place] [Spiriva] 1 puff IH DAILY 08/18/17 Amino Acids/Protein Hydrolys [Prosource No Carb Liquid Pkt] 30 ml PO BID@0800, 1730 packet 09/20/17 Amlodipine Besylate [Norvasc -] 5 mg PO DAILY tablet 09/20/17 Finasteride [Proscar -] 5 mg PO DAILY tablet 09/20/17 Insulin Sliding Scale [Novolog Vial Sliding Scale -] 1 vial SQ ACHS units 09/20 Lipase/Protease/Amylase [Stacy Hackett 36,000 Units Capsule] 1 cap PO TIDCM capsule. 09/20/17 Montelukast Na [Singulair -] 10 mg PO HS tablet 09/20/17 Multivitamins [Multivit ([facility] Formulary)] 1 tab PO DAILY tab 09/20/17 Polyethylene Glycol 3350 [Miralax 119 gm Btl -] 17 gm PO BID bottle 09/20/17 Ramipril [Altace] 10 mg PO DAILY capsule 09/20/17 Tamsulosin HCl [Flomax -] 0.4 mg PO DAILY@0830 cap.er.24h 09/20/17 Amitriptyline HCl [Elavil -] 25 mg PO DAILY 03/30/18 Gabapentin 600 mg PO DAILY 03/30/18 HYDROmorphone [Dilaudid -] 4 mg PO Q8H 03/30/18 Mesalamine [Pentasa] 500 mg PO DAILY 03/30/18 Ondansetron [Zofran -] 4 mg PO BID 03/30/18 Arformoterol Tartrate [Brovana -] 1 amp NEB RBID amp 04/08/18 Furosemide [Lasix -] 40 mg PO DAILY tablet 04/08/18 Heparin - 5,000 unit SQ BID vial 04/08/18 Insulin (Novolog 70/30) [Novolog Mix 70/30 Vial -] 40 units SQ BIDAC units Insulin Sliding Scale [Novolog Vial Sliding Scale -] 1 vial SQ ACHS units 04/08 Morphine *Sr* [Ms Contin -] 15 mg PO BID tablet.sa MDD 2 04/08/18 predniSONE [Deltasone -] 40 mg PO BID tablet 04/08/18
[2018-04-08] MEDS ORDERED: predniSONE 20 MG TABLET (UD) PO SCH (10:45)
--- NOTE | 2018-04-08 11:54 | PN ---
Progress Note, Physician History of Present Illness: PULMONARY ALERT,-RESP DISTRESS,-CONGESTION - Current Medication List Current Medications: Active Medications Albuterol Sulfate (Ventolin 0.083% Nebulizer Soln -) 1 amp NEB Q4H PRN PRN Reason: SHORT OF BREATH/WHEEZING Last Admin: 04/05/18 16:42 Dose: 1 amp Albuterol/Ipratropium (Duoneb -) 1 amp NEB RQID [facility] Amino Acids (Prosource No Carb Liquid Pkt) 30 ml PO BID@0800,1730 [facility] Last Admin: 04/08/18 09:47 Dose: 30 ml Amitriptyline HCl (Elavil -) 25 mg PO DAILY [facility] Last Admin: 04/08/18 09:46 Dose: 25 mg Amlodipine Besylate (Norvasc -) 10 mg PO DAILY [facility] Last Admin: 04/08/18 09:45 Dose: 10 mg Arformoterol Tartrate (Brovana (Restricted To Pulmonology/Resp) -) 1 amp NEB RBID [facility] Last Admin: 04/08/18 07:53 Dose: 1 amp Aspirin (Ecotrin -) 81 mg PO DAILY [facility] Last Admin: 04/08/18 09:45 Dose: 81 mg Budesonide/Formoterol Fumarate (Symbicort 160/4.5mcg -) 1 puff IH DAILY [facility] Last Admin: 04/07/18 09:28 Dose: 1 puff Clopidogrel Bisulfate (Plavix -) 75 mg PO DAILY [facility] Last Admin: 04/08/18 09:45 Dose: 75 mg Ezetimibe (Zetia -) 10 mg PO DAILY [facility] Last Admin: 04/08/18 09:47 Dose: 10 mg Finasteride (Proscar -) 5 mg PO DAILY [facility] Last Admin: 04/08/18 09:45 Dose: 5 mg Furosemide (Lasix -) 40 mg PO DAILY [facility] Last Admin: 04/08/18 09:46 Dose: 40 mg Gabapentin (Neurontin -) 300 mg PO BID [facility] Last Admin: 04/08/18 09:45 Dose: 300 mg Heparin Sodium (Porcine) (Heparin -) 5,000 unit SQ BID [facility] Last Admin: 04/07/18 22:07 Dose: 5,000 unit Hydromorphone HCl (Dilaudid -) 4 mg PO Q4H PRN PRN Reason: PAIN LEVEL 7 - 10 Last Admin: 04/08/18 09:45 Dose: 4 mg Insulin Aspart (Novolog Mix 70/30 Vial) 40 units SQ BIDAC [facility] Last Admin: 04/08/18 06:02 Dose: 40 units Insulin Aspart (Novolog Vial Sliding Scale -) 1 vial SQ ACHS [facility]; Protocol Last Admin: 04/08/18 06:02 Dose: 10 units Montelukast Sodium (Singulair -) 10 mg PO [facility] Last Admin: 04/07/18 22:09 Dose: 10 mg Morphine Sulfate (Ms Contin -) 15 mg PO BID [facility] Last Admin: 04/08/18 09:46 Dose: 15 mg Non-Formulary Medication (Mesalamine [Pentasa]) 500 mg PO DAILY [facility] Pancrelipase (Creon Dr 36,000 Units Capsule) 1 cap PO TIDCM [facility] Last Admin: 04/08/18 09:47 Dose: 1 cap Pantoprazole Sodium (Protonix -) 40 mg PO DAILY [facility] Last Admin: 04/08/18 09:45 Dose: 40 mg Polyethylene Glycol (Miralax (For Daily Use) -) 17 gm PO BID [facility] Last Admin: 04/07/18 22:11 Dose: 17 gm Prednisone (Deltasone -) 40 mg PO BID [facility] Ramipril (Altace -) 10 mg PO DAILY [facility] Last Admin: 04/07/18 09:31 Dose: 10 mg Ranitidine HCl (Zantac -) 150 mg PO BID [facility] Last Admin: 04/08/18 09:46 Dose: 150 mg Rosuvastatin Calcium (Crestor -) 20 mg PO [facility] Last Admin: 04/07/18 22:09 Dose: 20 mg Tamsulosin HCl (Flomax -) 0.4 mg PO DAILY@0830 [facility] Last Admin: 04/08/18 09:46 Dose: 0.4 mg - Objective Vital Signs: Vital Signs Temperature 98.3 F 04/08/18 06:00 Pulse Rate 80 04/08/18 09:37 Respiratory Rate 18 04/08/18 09:37 Blood Pressure 162/97 04/08/18 09:37 O2 Sat by Pulse Oximetry (%) 99 04/07/18 21:00 Constitutional: Yes: Well Nourished, Calm Eyes: Yes: WNL HENT: Yes: WNL Neck: Yes: Supple (TRACH) Cardiovascular: Yes: Regular Rate and Rhythm, S1, S2 Respiratory: Yes: Diminished Gastrointestinal: Yes: Normal Bowel Sounds, Soft Extremities: Yes: WNL Edema: No Labs: CBC, BMP 04/03/18 05:03 04/03/18 05:03 INR, PTT INR 1.04 (0.83-1.09) 03/30/18 09:39 Assessment/Plan Problem List - Problems (1) Asthma exacerbation Code(s): J45.901 - UNSPECIFIED ASTHMA WITH (ACUTE) EXACERBATION (2) Acute bronchitis Code(s): J20.9 - ACUTE BRONCHITIS, UNSPECIFIED (3) Chronic pain Code(s): G89.29 - OTHER CHRONIC PAIN Qualifiers: Chronic pain type: chronic pain syndrome Qualified Code(s): G89.4 - Chronic pain syndrome (4) Chronic pancreatitis Code(s): K86.1 - OTHER CHRONIC PANCREATITIS Qualifiers: Pancreatitis type: unspecified pancreatitis type Qualified Code(s): K86.1 - Other chronic pancreatitis (5) Coronary artery disease Code(s): I25.10 - ATHSCL HEART DISEASE OF [place] CORONARY ARTERY W/O ANG PCTRS (6) Diabetes mellitus Code(s): E11.9 - TYPE 2 DIABETES MELLITUS WITHOUT COMPLICATIONS Qualifiers: Diabetes mellitus type: type 2 Diabetes mellitus complication detail: with unspecified neuropathy (7) Hyperlipidemia Code(s): E78.5 - HYPERLIPIDEMIA, UNSPECIFIED (8) Hypertension Code(s): I10 - ESSENTIAL (PRIMARY) HYPERTENSION Qualifiers: Hypertension type: essential hypertension Qualified Code(s): I10 - Essential (primary) hypertension Assessment/Plan Acute Asthma Exacerbation improving Acute Bronchitis vs r/o Pneumonia Lactic Acidosis Obstructive Sleep Apnea s/p tracheostomy CAD s/p CABG HTN DM Hyperlipidemia Chronic Back Pain Opiate Dependence - prednisone - inhaled bronchodilators standing and PRN - monitor peak flow - O2 to keep SpO2>90% - uncap tracheostomy when sleeping - glucose control while on systemic steroids - DVT prophylaxis DR VANESSA
--- NOTE | 2018-04-08 13:09 | PN ---
Progress Note, Physician Chief Complaint: Pt A&Ox3;OOB in chair; feels better, and is eager to start therapy at [facility]. History of Present Illness: The patient is a 62 year old black male with significant history of CAD, CT--> CABG; s/p coronary stents x 6 (most recently 12/2015; small area of mild rosamaria- infarct ischemia on 07/2016 dobutamine stress MIBI), hypertension, hyperlipidemia, chronic pancreatitis, chronic back pain/surgery (takes oxycodone ), SBO, incarcerated hernia s/p repair x2 (September 2017), H.Pylori, BPH, COPD, bronchial asthma, tracheostomy in place (unplugs when sleeping for sleep apnea) , anxiety (on ELavil), who presents to the ED complaining of one week of intermittent fevers and chills, productive cough, generalized weakness, shortness of breath, and chest tightness. The patient states he feels sweaty one minute and cold the next. He states his cough is productive of beige sputum. He states he has been having chest tightness that radiates to his back which is exacerbated by his cough. He denies blood in his sputum. He denies radiation of chest pain. The patient states he has been using his nebulizers at home every 4 hours with little to no resolve of symptoms. He states he is concerned for pneumonia at this time. He denies any mucus, sputum, or blood from his trach tube. He states he cleans the tube regularly. No travel or sick contacts. Secondarily, he states he has chronic abdominal pain and is scheduled for endoscopy to evaluate his benign pancreatic tumors. - Current Medication List Current Medications: Active Medications Albuterol Sulfate (Ventolin 0.083% Nebulizer Soln -) 1 amp NEB Q4H PRN PRN Reason: SHORT OF BREATH/WHEEZING Last Admin: 04/05/18 16:42 Dose: 1 amp Albuterol/Ipratropium (Duoneb -) 1 amp NEB RQID [facility] Amino Acids (Prosource No Carb Liquid Pkt) 30 ml PO BID@0800,1730 [facility] Last Admin: 04/08/18 09:47 Dose: 30 ml Amitriptyline HCl (Elavil -) 25 mg PO DAILY [facility] Last Admin: 04/08/18 09:46 Dose: 25 mg Amlodipine Besylate (Norvasc -) 10 mg PO DAILY [facility] Last Admin: 04/08/18 09:45 Dose: 10 mg Arformoterol Tartrate (Brovana (Restricted To Pulmonology/Resp) -) 1 amp NEB RBID [facility] Last Admin: 04/08/18 07:53 Dose: 1 amp Aspirin (Ecotrin -) 81 mg PO DAILY [facility] Last Admin: 04/08/18 09:45 Dose: 81 mg Budesonide/Formoterol Fumarate (Symbicort 160/4.5mcg -) 1 puff IH DAILY [facility] Last Admin: 04/07/18 09:28 Dose: 1 puff Clopidogrel Bisulfate (Plavix -) 75 mg PO DAILY [facility] Last Admin: 04/08/18 09:45 Dose: 75 mg Ezetimibe (Zetia -) 10 mg PO DAILY [facility] Last Admin: 04/08/18 09:47 Dose: 10 mg Finasteride (Proscar -) 5 mg PO DAILY [facility] Last Admin: 04/08/18 09:45 Dose: 5 mg Furosemide (Lasix -) 40 mg PO DAILY [facility] Last Admin: 04/08/18 09:46 Dose: 40 mg Gabapentin (Neurontin -) 300 mg PO BID [facility] Last Admin: 04/08/18 09:45 Dose: 300 mg Heparin Sodium (Porcine) (Heparin -) 5,000 unit SQ BID [facility] Last Admin: 04/07/18 22:07 Dose: 5,000 unit Hydromorphone HCl (Dilaudid -) 4 mg PO Q4H PRN PRN Reason: PAIN LEVEL 7 - 10 Last Admin: 04/08/18 09:45 Dose: 4 mg Insulin Aspart (Novolog Mix 70/30 Vial) 40 units SQ BIDAC [facility] Last Admin: 04/08/18 06:02 Dose: 40 units Insulin Aspart (Novolog Vial Sliding Scale -) 1 vial SQ ACHS [facility]; Protocol Last Admin: 04/08/18 06:02 Dose: 10 units Montelukast Sodium (Singulair -) 10 mg PO HS [facility] Last Admin: 04/07/18 22:09 Dose: 10 mg Morphine Sulfate (Ms Contin -) 15 mg PO BID [facility] Last Admin: 04/08/18 09:46 Dose: 15 mg Non-Formulary Medication (Mesalamine [Pentasa]) 500 mg PO DAILY [facility] Pancrelipase (Creon Dr 36,000 Units Capsule) 1 cap PO TIDCM [facility] Last Admin: 04/08/18 09:47 Dose: 1 cap Pantoprazole Sodium (Protonix -) 40 mg PO DAILY [facility] Last Admin: 04/08/18 09:45 Dose: 40 mg Polyethylene Glycol (Miralax (For Daily Use) -) 17 gm PO BID [facility] Last Admin: 04/07/18 22:11 Dose: 17 gm Prednisone (Deltasone -) 40 mg PO BID [facility] Ramipril (Altace -) 10 mg PO DAILY [facility] Last Admin: 04/07/18 09:31 Dose: 10 mg Ranitidine HCl (Zantac -) 150 mg PO BID [facility] Last Admin: 04/08/18 09:46 Dose: 150 mg Rosuvastatin Calcium (Crestor -) 20 mg PO HS [facility] Last Admin: 04/07/18 22:09 Dose: 20 mg Tamsulosin HCl (Flomax -) 0.4 mg PO DAILY@0830 [facility] Last Admin: 04/08/18 09:46 Dose: 0.4 mg - Objective Vital Signs: Vital Signs Temperature 98.3 F 04/08/18 06:00 Pulse Rate 80 04/08/18 09:37 Respiratory Rate 18 04/08/18 09:37 Blood Pressure 162/97 04/08/18 09:37 O2 Sat by Pulse Oximetry (%) 99 04/07/18 21:00 Constitutional: Yes: No Distress Eyes: Yes: WNL HENT: Yes: WNL Neck: Yes: Other (tracheostomy site/plug) Respiratory: Yes: Regular Gastrointestinal: Yes: Soft ...Rectal Exam: Yes: Deferred Genitourinary: No: Anuria Musculoskeletal: Yes: Back Pain, Joint Stiffness Extremities: Yes: Cool Edema: No Peripheral Pulses WNL: Yes Integumentary: Yes: WNL Neurological: Yes: WNL Psychiatric: Yes: WNL Labs: CBC, BMP 04/03/18 05:03 04/03/18 05:03 INR, PTT INR 1.04 (0.83-1.09) 03/30/18 09:39 - ....Imaging Chest X-ray: Image Reviewed Cat Scan: Report Reviewed EKG: Image Reviewed Problem List - Problems (1) Pneumonia Assessment/Plan: on antibiotics; f/u cultures. CXR PA and Lat: no acute process; possible right nodule (CT without contrast recommended). (08/29 CTA chest noted: PET/CT f/u recommended. 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 Code(s): J18.9 - PNEUMONIA, UNSPECIFIED ORGANISM Qualifiers: (2) Asthma exacerbation in COPD Assessment/Plan: s/p tracehostomy. Hx sleep apnea; Bronchodilators, O2, steroids, antibiotics, nightly CPAP per pre school manager. Code(s): J44.1 - CHRONIC OBSTRUCTIVE PULMONARY DISEASE W (ACUTE) EXACERBATION; J45.901 - UNSPECIFIED ASTHMA WITH (ACUTE) EXACERBATION (3) Acute on chronic diastolic (congestive) heart failure Assessment/Plan: On ramipril, amlodipine (dose increased to 10 mg daily for better control of HTN ), furosemide. BNP > 1,500 Double that of a year abo). F/u BUn/Cr, electrolytes, daily weight, Is and Os. CXR: no acute pathology; f/u pulmonary nodules. . Code(s): I50.33 - ACUTE ON CHRONIC DIASTOLIC (CONGESTIVE) HEART FAILURE (4) Hx of CABG Assessment/Plan: f/u cardiac hx with pt's rn hemo dialysis, Dr. Bola Elaine; discussed pt's present condition with him. Code(s): Z95.1 - PRESENCE OF AORTOCORONARY BYPASS GRAFT (5) H/O heart artery stent Assessment/Plan: On ASA and clopidogrel. TNI < 0.02 x 3 EKG: sinus tachycardia initially, with possible old IWMI; repeat today shows normal study. Code(s): Z95.5 - PRESENCE OF CORONARY ANGIOPLASTY IMPLANT AND GRAFT (6) BPH (benign prostatic hyperplasia) Assessment/Plan: On Proscar. Code(s): N40.0 - BENIGN PROSTATIC HYPERPLASIA WITHOUT LOWER URINRY TRACT SYMP (7) Hyperlipidemia Code(s): E78.5 - HYPERLIPIDEMIA, UNSPECIFIED (8) Atypical chest pain Code(s): R07.89 - OTHER CHEST PAIN (9) Sleep apnea Code(s): G47.30 - SLEEP APNEA, UNSPECIFIED (10) Leukocytosis Code(s): D72.829 - ELEVATED WHITE BLOOD CELL COUNT, UNSPECIFIED (11) Acute adjustment disorder with anxiety Code(s): F43.22 - ADJUSTMENT DISORDER WITH ANXIETY (12) Opiate dependence Code(s): F11.20 - OPIOID DEPENDENCE, UNCOMPLICATED (13) Diabetes mellitus Code(s): E11.9 - TYPE 2 DIABETES MELLITUS WITHOUT COMPLICATIONS Qualifiers: Diabetes mellitus type: type 2 Diabetes mellitus complication detail: with unspecified neuropathy
== END 2018-04-08 13:18 | disposition short-term general hospital (02) | DRG 193 ==
LOC: JER 08:48 → JERBED 11:58 → J4W 21:28
PROVIDERS: ADMIT Internal Medicine; ATTEND Family Medicine
DX: J18.9 Pneumonia, unspecified organism (principal); I50.33 Acute on chronic diastolic (congestive) heart failure; J44.1 Chronic obstructive pulmonary disease with (acute) exacerbation; J45.901 Unspecified asthma with (acute) exacerbation; K86.1 Other chronic pancreatitis; E87.2 Acidosis; F11.20 Opioid dependence, uncomplicated; E11.65 Type 2 diabetes mellitus with hyperglycemia; I25.2 Old myocardial infarction; Z95.5 Presence of coronary angioplasty implant and graft; I25.10 Atherosclerotic heart disease of native coronary artery without angina pectoris; Z95.1 Presence of aortocoronary bypass graft; N40.0 Benign prostatic hyperplasia without lower urinary tract symptoms; E11.42 Type 2 diabetes mellitus with diabetic polyneuropathy; Z93.0 Tracheostomy status; Z79.4 Long term (current) use of insulin; G47.33 Obstructive sleep apnea (adult) (pediatric); G89.29 Other chronic pain; M54.5 Low back pain; E66.9 Obesity, unspecified; Z68.34 Body mass index [BMI] 34.0-34.9, adult; I11.0 Hypertensive heart disease with heart failure; I27.20 Pulmonary hypertension, unspecified; G47.30 Sleep apnea, unspecified; F43.22 Adjustment disorder with anxiety; M54.12 Radiculopathy, cervical region; E07.81 Sick-euthyroid syndrome; D64.9 Anemia, unspecified
CPT/HCPCS: 36415; 71045-TC-FY; 80053; 80061; 82550; 82553; 82607; 82728; 82746; 82803; 82947; 82962; 83036; 83540; 83550; 83605; 83721; 83735; 83880; 84439; 84443; 84484; 85025; 85027; 85379; 85610; 87040; 87804; 90688; 93005; 93010; 93970-TC; 94010; 94150; 94640; 97116-GP; 97161-GP; 99285-25; G0008; J1644; J7030

== ENCOUNTER 2018-07-19 12:49 | Inpatient (IN) | payer OTHER ==
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
--- NOTE | 2018-07-19 13:59 | PDOC ---
Attending Attestation - HPI HPI: 07/19/18 15:43 The patient is a 62 year old male with a significant past medical history of CHF , COPD, ACS, CADM CABG, SBO, BPH, hypertension, hyperlipidemia, pancreatitis, chronic back pain, diabetes, and tracheostomy who presents to the emergency department with shortness of breath for the past few weeks but has beeng etting worse recently. The patient reports some associated intermittent chest pain/ tightness with radiation from right to his left chest. He states that his chest pain is sharp. He reports some associated cough intermittently productive of greenish sputum for about 2 weeks was started on abx by Dr. Rojas. The patient states that he was concerned for pneumonia. The patient also reports complaint of chronic lower extremity edema, headache, and intermittent blurriness of either eye (this is a chronic problem - has had it for a long time and last episode yesterday, vision normal currently, he follows up with Dr. Garcia for the same eye complaints). Pt does endorse chronic back pain with pain raiding down his legs. He denies any other symptoms. He denies any fever, chills, nausea, vomiting, diarrhea, constipation or urinary symptoms. He denies any dizziness. . Documentation prepared by Mando Degroot, acting as medical hospital sales for Boris Castaneda MD. <Mando Degroot - Last Filed: 07/19/18 15:43> - Resident Resident Name: MarysolLoyda best - ED Attending Attestation I have performed the following: I have examined & evaluated the patient, The case was reviewed & discussed with the resident, I agree w/resident's findings & plan, Exceptions are as noted - Physicial Exam PE: 07/19/18 15:19 GENERAL: The patient is awake, alert, and fully oriented, HEAD: Normocephalic, atraumatic. EYES: extraocular movements intact, sclera anicteric, conjunctiva clear. ENT: Normal voice, Moist mucous membranes. NECK: Normal range of motion, supple LUNGS: wheezing bilaterally, moderate respiraotry distress HEART: Regular rate and rhythm, normal S1 and S2 without murmur, rub or gallop. ABDOMEN: Soft, nontender, normoactive bowel sounds. No guarding, no rebound. . No CVA tenderness EXTREMITIES: Normal range of motion, +2 pitting edema. no calf tenderness,neg homans NEUROLOGICAL: No facial assymetry, Normal speech, moving all 4 extremities spontaneously and symmetrically PSYCH: Normal mood, normal affect. SKIN: Warm, Dry, normal turgor, - Medical Decision Making 07/19/18 15:18 62y M hx of multiple medical problems including copd, cad, chronic back pain, presents with complaint of worsening sob - had seen his pulm who started pt on abx, but symptoms getting worse so came to the ED. pt endorses some chest tightness in addition associated with cough and sometimes spontaenously that is pressure like. denies any fever/chills. +productive of yellowish/green sputum. pt also endorses chronic leg swelling, chronic back pain, and chronic nerve page that are unchanged. pt also complaining of mild headache and occasional eye blurriness (non today) - but this is a chronic problem that he follows up with ophtho. no change from baseline. no new focal numness/tlingling/weakness. ddx- copd exacerbation, pna, chf, acs will ck labs, ekg, cxr will give nebs, steroids will dw dr. rojas 07/19/18 17:18 labs reviewd cr borderline will admit pt for COPD exacerbation pt written for martin ct neg <Boris Castaneda - Last Filed: 07/28/18 07:39> Heart Score/ECG Review - ECG Impressions Comment:: 07/19/18 20:22 rate of [address] changes sugestive of acute ischemia impression: normal sinus rhyhtm <Boris Castaneda - Last Filed: 07/28/18 07:39>
[2018-07-19] MEDS ORDERED: ALBUTEROL SO4 2.5/IPRATROPIUM 0.5 INH SOL 3 ML VIAL.NEB. NEB ONE ×2 (14:20→20:12)
[2018-07-19] MEDS ORDERED: ACETAMINOPHEN 1000 MG/100 ML VIAL (NON FORMULARY) IVPB ONE (14:20)
--- NOTE | 2018-07-19 14:31 | EKG ---
Test Reason : Blood Pressure : / mmHG Vent. Rate : 101 BPM Atrial Rate : 101 BPM P-R Int : 166 ms QRS Dur : 088 ms QT Int : 356 ms P-R-T Axes : 062 040 043 degrees QTc Int : 461 ms SINUS TACHYCARDIA OTHERWISE NORMAL ECG Confirmed by Mateusz Roblero MD ([id number]) on 07/19/2018 2:30:55 PM Referred By: Confirmed By:Mateusz Roblero MD
[2018-07-19 14:41] LABS: VENOUS PC02 44.4 mmHg (38-52); VENOUS PH 7.38 (7.32-7.42); VENOUS PO2 45.3 mmHg (28-48)
[2018-07-19] MEDS ORDERED: ASPIRIN 81 MG CHEWABLE TABLETS PO ONE (14:41)
[2018-07-19 14:46] LABS: BASO % 1.4 % (0-2.0); EOS % 0.1 % (0-4.5); HEMATOCRIT 37.3 % (35.4-49); HEMOGLOBIN 11.6 GM/dL (11.7-16.9); LYMPH % 19.7 % (8-40); MCH 25.4 pg (25.7-33.7); MCHC 31.1 g/dl (32.0-35.9); MEAN CELL VOLUME 81.6 fl (80-96); MEAN PLT VOLUME 8.2 fl (7.5-11.1); MONO % 6.1 % (3.8-10.2); NEUT % 72.7 % (42.8-82.8); PLATELET COUNT 431 K/MM3 (134-434); RBC 4.57 M/mm3 (4.00-5.60); RDW 15.6 % (11.9-15.9); WHITE BLOOD COUNT 16.4 K/mm3 (4.0-10.0)
[2018-07-19 14:56] LABS: INR 0.99 (0.83-1.09); PROTHROMBIN TIME (PATIENT) 11.7 SEC (9.7-13.0)
[2018-07-19 15:05] LABS: ALBUMIN 3.6 g/dl (3.4-5.0); ALK PHOS 170 U/L (45-117); ANION GAP 7 MMOL/L (8-16); BILIRUBIN,TOTAL 0.3 mg/dL (0.2-1); BLOOD UREA NITROGEN 21 mg/dL (7-18); CALCIUM 9.7 mg/dL (8.5-10.1); CHLORIDE 104 mmol/L (98-107); CO2 26 mmol/L (21-32); CREATININE 1.4 mg/dL (0.55-1.3); GLUCOSE,RANDOM 190 mg/dL (74-106); LIPASE 97 U/L (73-393); N-TERMINAL BNP 276.8 pg/ml (5-125); POTASSIUM 4.6 mmol/L (3.5-5.1); SGOT/AST 38 U/L (15-37); SGPT/ALT 56 U/L (13-61); SODIUM 137 mmol/L (136-145); TOT PROT 7.5 g/dl (6.4-8.2)
[2018-07-19] MEDS ORDERED: methylPREDNISolone NA SUCC 125 MG/2 ML VIAL IVPUSH ONE (16:30)
[2018-07-19] MEDS ORDERED: AZITHROMYCIN 250 MG TABLET PO ONE (17:56)
[2018-07-19] MEDS ORDERED: morphine CARPU-JECT 4 MG/1 ML DISP.SYRIN IVPUSH ONE (18:04)
--- NOTE | 2018-07-19 18:08 | HP ---
Admitting History and Physical - Primary Care Physician PCP: Markus Knox - Admission Chief Complaint: Generalized body pain, SOB History of Present Illness: 62 year old obese male with signif PMHx of CAD, LA, CABG; s/p coronary stents x 6 (most recently 12/2015),HTN, HLD, chronic pancreatitis, chronic back pain , SBO, incarcerated hernia s/p repair x2 (September 2017), H.Pylori, BPH, COPD, bronchial asthma, tracheostomy in place (unplugs when sleeping for sleep apnea) , anxiety presenting for generalized chronic body pains and cough. Pt describes the cough as productive of greenish sputum, and comes in bouts. He has associated SOB that has worsened over the past 1 week. Pt Has been on 40mg prednisone for the past 4 days and has also used augmentin for the past 4 days without complete remission. He reports chronic generalized body pains (he describes as neuropathic pain) for which he has been on chronic opiate therapy. Pt reports recently receiving the flu vaccine about 4 days ago after the onset of the cough. He also reports feeling clammy, but has no objective fevers. He said he was discharged (03/30-04/08/18) to [facility] where he stayed for about 3 weeks, before he returned home to his with VNS, and home PT. Pt has had spine surgery and currently has upper and lower extremity bilateral braces to help him walk and function. He is requesting his routine opiate therapy. He said he followed Pain mx in the past, is in discussions for cannabis for pain relieve (with his machine staker) and follows Dr Singh for neurol, Dr Mendoza for Cards and Dr Suresh Park [phone] /[phone]. Pt complained of headache, anxiety and intermittent blurring of vision in the ED and got a CT head. He reports being diagnosed with immature cataracts with intermittent blurring of vision in past. He also emphasized body pains because of his missed doses. Pt reported epigastric/ chest pain , which he described as a part of his chronic pancreatitis symptoms. ED Course: Duonebs, solumed, ASA, Morphine, LLE duplex- -ve for DVT, CXR- cardiomegaly, Head CT- No signif Interval change. Mild vol loss that is non specific. BUN/Cr-21/1.4 VBG- 7.38/44.4/45.3 WBC-16.4, H&H- 11.6/37.3 BNP-276.8 History Source: Patient Limitations to Obtaining History: No Limitations - Past Medical History [employer]: Yes: Peripheral Neuropathy (s/p extensive cervical spine surgery post injury with leg weakness and poor balance: patient much improved post extensive physical therapy and now walks with a walker), Other (chronic pain syndrome with mulit-level spine disease managed by PM and his spine surgeon. Planned EMG/ NCVs studies and evaluation of motor weakness in process by treating neurologist Dr. Singh) Cardiovascular: Yes: CAD (Last stents placed x 2 last year per patient), CHF (s/ p LA several years ago; s/p stenting. mild CHF in the past.), HTN, Hyperlipdemia , LA, Pulmonary Hypertension Pulmonary: Yes: Asthma, Sleep Apnea Gastrointestinal: Yes: Constipation, Pancreatitis (? history of chronic pancreatitis with episodes of acute pancreatitis), Other (FECAL INCONTINENCE SECONDARY TO OVERFLOW followed by Dr. Abdoulaye Wu, IPMN, PANCREATITIS . HAD EPISODE OF ISCHEMIC COLITIS LAST ADMISSION) Renal/: Yes: BPH Psych: Yes: Depression Musculoskeletal: Yes: Chronic low back pain (has back stimulator), Other ( CHRONIC NECK PAIN s/p Lumbar and Cervical fusion ) Endocrine: Yes: Diabetes Mellitus (has insulin pump) - Past Surgical History Past Surgical History: Yes: Breast Biopsy, Colonoscopy, Laminectomy, Stent (1 non eluting, 5 eluting) - Smoking History Smoking history: Never smoked Have you smoked in the past 12 months: No Aproximately how many cigarettes per day: 0 - Alcohol/Substance Use Hx Alcohol Use: No History of Substance Use: reports: None, Prescription (opiates for chronic pain post cervical spine surgery. 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 History of Recent Travel: No Home Medications - Allergies Allergies/Adverse Reactions: Allergies Allergy/AdvReac Type Severity Reaction Status Date / Time shellfish derived Allergy Severe Verified 08/18/17 13:42 Tetracyclines Allergy Severe Verified 08/18/17 13:42 - Home Medications Home Medications: Ambulatory Orders Albuterol Sulfate Inhaler - [Ventolin HFA Inhaler -] 1 - 2 inh PO Q4H PRN Arformoterol Tartrate [Brovana] 15 mcg IH ASDIR 08/18/17 Aspirin [Aspirin EC] 81 mg PO DAILY 08/18/17 Budesonide/Formeterol Fumarate [SYMBICORT 160/4.5mcg -] 1 inh PO DAILY 08/18/17 Clopidogrel Bisulfate [Plavix] 75 mg PO DAILY 08/18/17 Dexlansoprazole [Dexilant] 30 mg PO DAILY 08/18/17 Ezetimibe [Zetia -] 10 mg PO HS 08/18/17 Furosemide [Lasix] 40 mg PO DAILY 08/18/17 Insulin Pump Controller [Snap Insulin Pump Controller] 1 each ASDIR 08/18/17 Montelukast Sodium [Singulair] 10 mg PO DAILY 08/18/17 Rosuvastatin Calcium [Crestor] 10 mg PO DAILY 08/18/17 Tiotropium [place] [Spiriva] 1 puff IH DAILY 08/18/17 Amino Acids/Protein Hydrolys [Prosource No Carb Liquid Pkt] 30 ml PO BID@0800, 1730 packet 09/20/17 Amlodipine Besylate [Norvasc -] 5 mg PO DAILY tablet 09/20/17 Finasteride [Proscar -] 5 mg PO DAILY tablet 09/20/17 Lipase/Protease/Amylase [Stacy Hackett 36,000 Units Capsule] 1 cap PO TIDCM capsule. 09/20/17 Multivitamins [Multivit ([facility])] 1 tab PO DAILY tab 09/20/17 Polyethylene Glycol 3350 [Miralax 119 gm Btl -] 17 gm PO BID bottle 09/20/17 Ramipril [Altace] 10 mg PO DAILY capsule 09/20/17 Tamsulosin HCl [Flomax -] 0.4 mg PO DAILY@0830 cap.er.24h 09/20/17 Amitriptyline HCl [Elavil -] 75 mg PO DAILY 03/30/18 Gabapentin 800 mg PO TID 03/30/18 HYDROmorphone [Dilaudid -] 4 mg PO Q4H 03/30/18 Mesalamine [Pentasa] 500 mg PO DAILY 03/30/18 Arformoterol Tartrate [Brovana -] 1 amp NEB RBID amp 04/08/18 Insulin (Novolog 70/30) [Novolog Mix 70/30 Vial -] 40 units SQ BIDAC units Morphine *Sr* [Ms Contin -] 15 mg PO BID tablet.sa MDD 2 04/08/18 predniSONE [Deltasone -] 40 mg PO DAILY 07/19/18 Family Disease History - Family Disease History Family Disease History: Diabetes: Mother ( 58: diabetic complications), CA: Father ( 49: asbestosis), Respiratory: Brother (bronchial asthma, DVT), Other: Mother, Sister (BCA), Son (2, healthy), Daughter (1, healthy) Review of Systems - Review of Systems Constitutional: reports: Other (Clammy) Eyes: reports: Blurred Vision (Immature cataracts) HENT: denies: Nasal Congestion Cardiovascular: reports: Edema, Shortness of Breath Respiratory: reports: Cough Gastrointestinal: reports: Constipation Genitourinary: reports: No Symptoms Neurological: reports: Parasthesia, Other (Hx of post cough syncope) Pain Intensity: 8 Physical Examination Vital Signs: Vital Signs Temperature 98.1 F 07/19/18 12:51 Pulse Rate 97 H 07/19/18 12:51 Respiratory Rate 18 07/19/18 12:51 Blood Pressure 129/84 07/19/18 12:51 O2 Sat by Pulse Oximetry (%) 99 07/19/18 14:23 Constitutional: Yes: Obese Eyes: Yes: Cataracts HENT: No: Nasal Congestion Neck: Yes: Supple Cardiovascular: Yes: Tachycardia, S1, S2 Respiratory: Yes: Wheezes (B/l) Gastrointestinal: Yes: Normal Bowel Sounds, Abdomen, Obese Renal/: No: CVA Tenderness - Left, CVA Tenderness - Right Breast(s): Yes: Gynecomastia Musculoskeletal: Yes: Other (Bilateral LE braces) Edema: LUE: Trace, RUE: Trace Neurological: No: Facial Droop, Tremors ...Motor Strength: WNL, LUE, LLE, RUE, RLE Psychiatric: Yes: Other (Anxious) Labs: CBC, BMP 07/19/18 14:19 07/19/18 14:19 Imaging - Results Chest X-ray: Report Reviewed (Cardiomegaly, no acute dx) Cat Scan: Report Reviewed (No signif interval change, Mild vol loss non specific ) Assessment/Plan Ambulatory Orders Albuterol Sulfate Inhaler - [Ventolin HFA Inhaler -] 1 - 2 inh PO Q4H PRN Arformoterol Tartrate [Brovana] 15 mcg IH ASDIR 08/18/17 Aspirin [Aspirin EC] 81 mg PO DAILY 08/18/17 Budesonide/Formeterol Fumarate [SYMBICORT 160/4.5mcg -] 1 inh PO DAILY 08/18/17 Clopidogrel Bisulfate [Plavix] 75 mg PO DAILY 08/18/17 Dexlansoprazole [Dexilant] 30 mg PO DAILY 08/18/17 Ezetimibe [Zetia -] 10 mg PO DAILY 08/18/17 Furosemide [Lasix] 40 mg PO DAILY 08/18/17 Insulin Lispro [Humalog] 0 unit SQ PRN PRN 08/18/17 Insulin Pump Controller [Snap Insulin Pump Controller] 1 each ASDIR 08/18/17 Montelukast Sodium [Singulair] 10 mg PO DAILY 08/18/17 Ranitidine HCl 150 mg PO PRN PRN 08/18/17 Rosuvastatin Calcium [Crestor] 10 mg PO DAILY 08/18/17 Tiotropium [place] [Spiriva] 1 puff IH DAILY 08/18/17 Amino Acids/Protein Hydrolys [Prosource No Carb Liquid Pkt] 30 ml PO BID@0800, 1730 packet 09/20/17 Amlodipine Besylate [Norvasc -] 5 mg PO DAILY tablet 09/20/17 Finasteride [Proscar -] 5 mg PO DAILY tablet 09/20/17 Insulin Sliding Scale [Novolog Vial Sliding Scale -] 1 vial SQ ACHS units 09/20 Lipase/Protease/Amylase [Stacy Hackett 36,000 Units Capsule] 1 cap PO TIDCM capsule. 09/20/17 Montelukast Na [Singulair -] 10 mg PO HS tablet 09/20/17 Multivitamins [Multivit ([facility] Formul[facility])] 1 tab PO DAILY tab 09/20/17 Polyethylene Glycol 3350 [Miralax 119 gm Btl -] 17 gm PO BID bottle 09/20/17 Ramipril [Altace] 10 mg PO DAILY capsule 09/20/17 Tamsulosin HCl [Flomax -] 0.4 mg PO DAILY@0830 cap.er.24h 09/20/17 Amitriptyline HCl [Elavil -] 25 mg PO DAILY 03/30/18 Gabapentin 600 mg PO DAILY 03/30/18 HYDROmorphone [Dilaudid -] 4 mg PO Q8H 03/30/18 Mesalamine [Pentasa] 500 mg PO DAILY 03/30/18 Ondansetron [Zofran -] 4 mg PO BID 03/30/18 Arformoterol Tartrate [Brovana -] 1 amp NEB RBID amp 04/08/18 Furosemide [Lasix -] 40 mg PO DAILY tablet 04/08/18 Heparin - 5,000 unit SQ BID vial 04/08/18 Insulin (Novolog 70/30) [Novolog Mix 70/30 Vial -] 40 units SQ BIDAC units Insulin Sliding Scale [Novolog Vial Sliding Scale -] 1 vial SQ ACHS units 04/08 Morphine *Sr* [Ms Contin -] 15 mg PO BID tablet.sa MDD 2 04/08/18 predniSONE [Deltasone -] 40 mg PO BID tablet 04/08/18 Holter 07/2016- NSR with occ PVCs and APCs, 3 short runs of SVTs Stress 07/2016- Small mod size inferior scar with periinfarct ischemia, LVEF 45% with inferior hypokinesis ECHO: 12/2017- Mild conc LVH, LVEF nl (60-65%), RV-nl size and fn, LA mildly dilated, trace to mild MR, trace to mild TR, Insuff TR to calculateRVSP, trace pulm valvular regurg, aortic root is nl size, no pleural effusion, mild to mod mitral annular calcification. EKbpm, no SAURAV/STD, nl axis, meets adrián criteria for LVH, QTC-461 62 year old obese male with signif PMHx of CAD, LA, CABG; s/p coronary stents x 6 (most recently 12/2015),HTN, HLD, chronic pancreatitis, chronic back pain , SBO, incarcerated hernia s/p repair x2 (September 2017), H.Pylori, BPH, COPD, bronchial asthma, tracheostomy in place (unplugs when sleeping for sleep apnea) , anxiety presenting for generalized chronic body pains and cough. #Cough Likely in setting of mild COPD exacerbation/Asthma exacerbation No marked retention on VBG, able to speak in complete sentences Cont systemic steroids-prednisone 60mg daily Duonebs Pulm consult Azithromycin PO 500mg daily #Generalized body pains/chronic pancreatitis, On chronic high dose opiates QTc-461 Repeat EKG in am Pt will benefit from pain mx Cont home dose #Atypical chest pain Pt described pain within context of generalized pain EKG- no SAURAV/STD, QTC 461 (on opiates) Trops negative x 2, cont to trend Tele obs #DM Pt has an insulin pump ISS ACHS BGM ACHS #CKD Pt at his baseline Cr- No need for fluids #Anxiety Tachycadic Cont anxiolytics HTN Cont amlodipine, ramipril HLD Cont statin CAD/LA s/pCABG and s/p coronary stents x 6 (most recently 12/2015), Cont plavix, ASA #BPH Cont flomax, proscara #GRACIE tracheostomy in place (unplugs when sleeping for sleep apnea) Pt did not tolerate CPAP Follows Dr Foley Monitor Hx of SBO /Hx of incarcerated hernia s/p repair x2 (September 2017) Stable Hx of H.Pylori Pt reports he follows GI as outpt #FEN No iv fluids Monitor lytes Diabetic/Sodium controlled diet #PPx Heparin sq GI #Dispo Tele obs Visit type - Emergency Visit Emergency Visit: Yes ED Registration Date: 07/19/18 Care time: The patient presented to the Emergency Department on the above date and was hospitalized for further evaluation of their emergent condition. - New Patient This patient is new to me today: Yes Date on this admission: 07/20/18 - Critical Care Critical Care patient: No
[2018-07-19] MEDS ORDERED: ARFORMOTEROL TARTRATE 15 MCG/2 ML VIAL NEB ONE (18:18)
[2018-07-19] MEDS: ALBUTEROL SO4 2.5/IPRATROPIUM 0.5 INH SOL 3 ML VIAL.NEB. NEB SCH (20:18)
[2018-07-19] MEDS ORDERED: predniSONE 20 MG TABLET (UD) PO SCH (20:30)
[2018-07-19] MEDS ORDERED: CLOPIDOGREL BISULFATE 75 MG TABLET (FP) ONE (20:46)
[2018-07-19] MEDS ORDERED: ASPIRIN COATED 81 MG TABLET.EC ONE (20:46)
[2018-07-19] MEDS ORDERED: predniSONE 20 MG TABLET (UD) ONE (20:46)
[2018-07-19] MEDS ORDERED: amLODIPine BESYLATE 5 MG TABLET (FP) ONE (20:46)
[2018-07-19] MEDS ORDERED: FUROSEMIDE 40 MG TABLET (FP) ONE (20:46)
[2018-07-19] MEDS ORDERED: RAMIPRIL 5 MG CAPSULE (FP) ONE (20:46)
[2018-07-19] MEDS ORDERED: AMITRIPTYLINE HCL 25 MG TABLET (FP) ONE (20:47)
[2018-07-19] MEDS ORDERED: MONTELUKAST NA 10 MG TABLET ONE (20:47)
--- NOTE | 2018-07-19 21:26 | PN ---
Teaching Attending Note Name of Resident: Radha Love ATTENDING PHYSICIAN STATEMENT I saw and evaluated the patient. I reviewed the resident's note and discussed the case with the resident. I agree with the resident's findings and plan as documented. SUBJECTIVE: Seen and examined; please see resident note for further historical information. Briefly, this is 62 y/o male with a complex PMH as documented who presents to the hospital with SOB, CP, body aches. He is afebrile and hemodynamically stable saturating 98% on RA. He also complains of his chronic pain and requests his scheduled medications. He has been on a prednisone burst for 4 days and augmentin as an OP per his PCP for the aformentioned sx and he tells me that nothing has completely resolved them. Labs show a WBC 16, VBG normal, and CXR wnl. He got a large dose of steroids IV in the ER. Is on insulin pump at home but he is concerned it may have been off for a few hours. Trop x2 negative and EKG shows NSR with no concerning ST-T changes. He will be placed on the medicine service for observation. 10 sys ROS done and negative aside from HPI PMH and PSH reviewed FH asked and noncontributory Socially he is a nondrinker, nonsmoker. Does have documented home health Medication list reviewed OBJECTIVE: VS, labs, and imaging reviewed NAD, AAO, resting comfortably in bed RRR s1/2 no mgr NT ND +BS Scattered mild wheezes, sym exp, no localizing findings CN2-12 wnl Normal mood, appropriate affect Labs with WBC 16, Cr 1.4. VBG wnl and trop (-) x2 with BNP only mildly elevated 276 and neative lipase CXR with no acute dz, chronic cardiomegaly Head CT done and negative Negative R-sided duplex EKG reviewed Echo 12/2017 reviewed Old Holter monitor, stress test reviewed ASSESSMENT AND PLAN: Mr. Cohen presents for SOB/Cough, atypical CP, chronic pain 1) Acute SOB with recent tx for COPD exacerbation -Was on prednisone and augmentin at home; VBG wnl, CXR without acute findings, saturating 98% RA. No s/s PNA, leukocytosis likely from 4x days pred -Technically positive criteria for COPD exacerbation -Placing on 1 additional day of prednisone 60, 5 day course of PO Azithomycin ( monitor QT, <500 now), and schedule duonebs around the clock -No systolic CHF on echo; BNP slightly up but this is a common finding of little clinical significance in the obese, etc. -Can consider pulmonary consultation but likely not needed STAT given mild disease at present point. -Monitor on the floor 2) Atypical Chest Pain -Per CV consult in past patient follows with Dr. Elaine who disclosed that he has frequent episodes of atypical CP related to his underlying pulmonary disease. EKG without any worrisome changes and troponin negative x2. -Will trend x3, monitor on telemetry, and speak with Dr. Elaine in AM prior to repeating echo or stress test given the recurring nature of these sx with otherwise negative workup and alternative explanation. Yes, he is high risk, but one must also consider the global picture. 3) Hx CAD -On optimal therapy at home. S/P CABG and 6x stents (most recently December 2015); follows with Dr. Elaine. Continue on ASA, Plavix, Nitrate, Statin, Zetia 4) Hx GRACIE -Disconnects trach at night; continue his home methods 5) Hx HTN -Continue home meds; goal <160 SBP inpt 6) Hx HLD -Continue statin, zetia 7) Obesity -Change Room Attendant when clinically appropriate 8) S/P Trach -No issues; continue home meds 9) Chronic Pain s/p back sgy -Verify and continue home meds; no indication for IV pain medication 10) BPH 11) History of asthma/COPD -ATC nebs so can hold handhelds and resume when off pred burst with the fometerol and when off ATC nebs with spiriva. 12) DM type 1 -Continue with insulin pump -FSG elevated to 400-range after steroids with no anion gap. continuing pump and gave 12 units IV; trending with frequent fsg to ensure no more issues. 13) Documented CHF -LVEF wnl on 12/2017 echo; continue home lasix. Followup with CV. No evidence of acute exacerbation. Full Code
[2018-07-19] MEDS: ASPIRIN COATED 81 MG TABLET.EC PO SCH (21:31)
[2018-07-19] MEDS: ROSUVASTATIN CA 10 MG TABLET (FP) PO SCH (21:31)
[2018-07-19] MEDS: RAMIPRIL 5 MG CAPSULE (FP) PO SCH (21:31)
[2018-07-19] MEDS: amLODIPine BESYLATE 5 MG TABLET (FP) PO SCH (21:32)
[2018-07-19] MEDS: FUROSEMIDE 40 MG TABLET (FP) PO SCH (21:32)
[2018-07-19] MEDS: FINASTERIDE 5 MG TABLET (FP) PO SCH (21:32)
[2018-07-19] MEDS: AMITRIPTYLINE HCL 75 MG TABLET PO SCH (21:32)
[2018-07-19] MEDS: BUDESONIDE/FORMETEROL FUMARATE 160/4.5 mcg INHALER IH SCH (21:32)
[2018-07-19] MEDS: CLOPIDOGREL BISULFATE 75 MG TABLET (FP) PO SCH (21:32)
[2018-07-19] MEDS ORDERED: morphine SO4 SUSTAINED ACTING 15 MG TABLET.SA ONE (22:20)
[2018-07-19] MEDS ORDERED: HEPARIN NA (PORCINE) 5,000 UNITS/ML 1ML VIAL ONE (22:21)
[2018-07-19] MEDS: HEPARIN NA (PORCINE) 5,000 UNITS/ML 1ML VIAL SQ SCH (22:27)
[2018-07-19] MEDS: PANTOPRAZOLE 40 MG TABLET (FP) PO SCH (22:27)
[2018-07-19] MEDS: MONTELUKAST NA 10 MG TABLET PO SCH (22:28)
[2018-07-19] MEDS: GABAPENTIN 400 MG CAPSULE (FP) PO SCH (22:28)
[2018-07-19] MEDS: morphine SO4 SUSTAINED ACTING 15 MG TABLET.SA PO SCH (22:28)
[2018-07-19] MEDS: EZETIMIBE 10 MG TABLET (FP) PO SCH (22:28)
[2018-07-19] MEDS ORDERED: INSULIN (NOVOLOG) ASPART 100 UNITS/ML 10ML VIAL ONE (23:14)
[2018-07-19] MEDS: INSULIN SLIDING SCALE (NOVOLOG) 1 VIAL SQ SCH (23:17)
[2018-07-20] MEDS ORDERED: predniSONE 20 MG TABLET (UD) PO SCH (01:28)
[2018-07-20] MEDS ORDERED: morphine SULFATE 4 MG/ML VIAL IVPUSH ONE (02:46)
[2018-07-20] MEDS ORDERED: morphine CARPU-JECT 4 MG/1 ML DISP.SYRIN IVPUSH ONE (02:46)
[2018-07-20] MEDS ORDERED: INSULIN REGULAR HUMAN 100 UNITS/ML *VIAL IVPUSH ONE (03:00)
[2018-07-20] MEDS ORDERED: morphine SULFATE 4 MG/ML VIAL ONE (03:00)
[2018-07-20 03:14] LABS: ANION GAP 9 MMOL/L (8-16); BLOOD UREA NITROGEN 30 mg/dL (7-18); CALCIUM 9.2 mg/dL (8.5-10.1); CHLORIDE 99 mmol/L (98-107); CO2 26 mmol/L (21-32); CREATININE 1.8 mg/dL (0.55-1.3); POTASSIUM 4.5 mmol/L (3.5-5.1); SODIUM 134 mmol/L (136-145)
[2018-07-20 03:24] LABS: GLUCOSE,RANDOM 455 mg/dL (74-106)
[2018-07-20 06:19] VITALS: BMI 36.6
[2018-07-20] MEDS: INSULIN SLIDING SCALE (NOVOLOG) 1 VIAL SQ SCH ×4 (06:22→21:56)
[2018-07-20] MEDS: GABAPENTIN 400 MG CAPSULE (FP) PO SCH ×3 (06:31→21:56)
[2018-07-20] MEDS: HEPARIN NA (PORCINE) 5,000 UNITS/ML 1ML VIAL SQ SCH ×3 (06:31→21:54)
--- NOTE | 2018-07-20 07:09 | PN ---
Addendum entered and electronically signed by Omaira Hoyt, 17:34: dispo -cont to monitor tele inpatient Original Note: Physical Exam: SUBJECTIVE: Patient seen and examined at bedside. Admits to mild L sided chest tightness radiating across the L breast. Denies shortness of breath. Pt is anxious due to a multitude of medical issues he has been dealing with over the past couple of years. Tolerating diet, denies n/v, sob, abd pain, urinary/bowel symptoms. OBJECTIVE: Vital Signs Temperature 97.6 F 07/20/18 06:01 Pulse Rate 84 07/20/18 06:01 Respiratory Rate 20 07/20/18 06:01 Blood Pressure 160/90 07/20/18 06:01 O2 Sat by Pulse Oximetry (%) 98 07/20/18 06:01 GENERAL: AAOx3. NAD. Comfortable. Speaks in complete sentences. HEENT: AT/NC. EOMI. DORENE. Moist mucus membranes. NECK: Trachea midline, full range of motion, supple. Tracheostomy in place. LUNGS: CTA B/L. HEART: Regular rate and rhythm, S1, S2 without murmur, rub or gallop. ABDOMEN: Obese. Soft, NT/ND. +Bs in all 4Q's. No masses noted. EXTREMITIES: 2+ pulses, warm, well-perfused, no edema. NEUROLOGICAL: Cranial nerves II through XII grossly intact. Normal speech. Follows commands. PSYCH: Normal mood, normal affect. SKIN: Warm, dry, normal turgor, no rashes or lesions noted CBC, BMP 07/19/18 14:19 07/20/18 02:24 Active Medications Albuterol/Ipratropium (Duoneb -) 1 amp NEB RQID [facility] Last Admin: 07/19/18 20:18 Dose: 1 amp Amitriptyline HCl (Elavil -) 75 mg PO DAILY [facility] Last Admin: 07/19/18 21:32 Dose: 75 mg Amlodipine Besylate (Norvasc -) 5 mg PO DAILY [facility] Last Admin: 07/19/18 21:32 Dose: 5 mg Aspirin (Ecotrin -) 81 mg PO DAILY [facility] Last Admin: 07/19/18 21:31 Dose: 81 mg Azithromycin (Azithromycin) 500 mg PO DAILY [facility] Stop: 07/22/18 10:01 Budesonide/Formoterol Fumarate (Symbicort 160/4.5mcg -) 1 puff IH DAILY [facility] Last Admin: 07/19/18 21:32 Dose: 1 puff Clopidogrel Bisulfate (Plavix -) 75 mg PO DAILY [facility] Last Admin: 07/19/18 21:32 Dose: 75 mg Ezetimibe (Zetia -) 10 mg PO HS [facility] Last Admin: 07/19/18 22:28 Dose: 10 mg Finasteride (Proscar -) 5 mg PO DAILY [facility] Last Admin: 07/19/18 21:32 Dose: 5 mg Furosemide (Lasix -) 40 mg PO DAILY [facility] Last Admin: 07/19/18 21:32 Dose: 40 mg Gabapentin (Neurontin -) 800 mg PO TID [facility] Last Admin: 07/20/18 06:31 Dose: 800 mg Heparin Sodium (Porcine) (Heparin -) 5,000 unit SQ TID [facility] Last Admin: 07/20/18 06:31 Dose: 5,000 unit Hydromorphone HCl (Dilaudid -) 4 mg PO Q4H PRN PRN Reason: PAIN LEVEL 6-10 Last Admin: 07/20/18 06:31 Dose: 4 mg Insulin Aspart (Novolog Vial Sliding Scale -) 1 vial SQ [facility]; Protocol Last Admin: 07/20/18 06:22 Dose: Not Given Montelukast Sodium (Singulair -) 10 mg PO HS [facility] Last Admin: 07/19/18 22:28 Dose: 10 mg Morphine Sulfate (Ms Contin -) 15 mg PO BID [facility] Last Admin: 07/19/18 22:28 Dose: 15 mg Pantoprazole Sodium (Protonix -) 40 mg PO DAILY [facility] Last Admin: 07/19/18 22:27 Dose: 40 mg Prednisone (Deltasone -) 60 mg PO DAILY [facility] Ramipril (Altace -) 10 mg PO DAILY [facility] Last Admin: 07/19/18 21:31 Dose: 10 mg Rosuvastatin Calcium (Crestor -) 10 mg PO DAILY [facility] Last Admin: 07/19/18 21:31 Dose: 10 mg Tamsulosin HCl (Flomax -) 0.4 mg PO DAILY@0830 [facility] Tiotropium [place] (Spiriva Respimat) 2 puff IH DAILY [facility] IMAGING: * RLE duplex: No evid of DVT * Head CT: Mild nonspecific volume loss. No evid of IC pathology * CXR: Cardiomegaly. No acute disease. * Echo: Mild concentric LVH. LVEF normal. LV wall motion normal. Mild MR. Insufficient TR detected to calculate RV systolic pressure. LV filling pattern normal for age. * Holter (07/2016): NSR with occ PVCs and APCs, 3 short runs of SVTs * Stress (07/2016) Small mod size inferior scar with periinfarct ischemia, LVEF 45% with inferior hypokinesis * ECHO (12/2017): Mild conc LVH, LVEF nl (60-65%), RV-nl size and fn, LA mildly dilated, trace to mild MR, trace to mild TR, Insuff TR to calculateRVSP, trace pulm valvular regurg, aortic root is nl size, no pleural effusion, mild to mod mitral annular calcification. * EKG (07/19/18):101bpm, no SAURAV/STD, nl axis, meets adrián criteria for LVH, QTC- 461 ASSESSMENT/PLAN: 62 year old obese male with signif PMHx of CAD, [place], CABG; s/p coronary stents x 6 (most recently 12/2015),HTN, HLD, chronic pancreatitis, chronic back pain , SBO, incarcerated hernia s/p repair x2 (September 2017), H.Pylori, BPH, COPD, bronchial asthma, tracheostomy in place (unplugs when sleeping for sleep apnea) , anxiety presenting for generalized chronic body pains and cough. #Cough; likely 2/2 acute asthma exacerbation -Solumedrol 40 mg IVP Q6H -Duonebs QID -Symbicort -Pulm recs appreciated -Sputum c/s ordered #Generalized body pains/chronic pancreatitis -On chronic high dose opiates -QTc-461 -Dilaudid 4 mg PO Q4H PRN Cont home med(s): -Gabapentin 800 mg PO TID -MS Contin 15 mg PO BID #IDDM; currently on insulin pump -F/U endo recs; will wait for recs on -BGM/ISS ACHS, cont to monitor #Atypical chest pain -Pt described pain within context of generalized pain -EKG- no SAURAV/STD, QTC 461 (on opiates), Trops negative x 2 -Cardio following #CKD -Pt at his baseline Cr- -No need for fluids #HTN Cont home meds: -Amlodipine 5 mg PO QD -Ramipril 10 mg PO QD -Lasix 40 mg IVP QD #HLD Cont home med: -Rosuvastatin 10 mg PO QD -Zetia 10 mg PO HS #CAD/AL s/p CABG and s/p coronary stents x 6 (most recently 12/2015), -Cardio recs appreciated -Echo ordered Cont home med(s): -Aspirin 81 mg PO QD -Plavix 75 mg PO QD #BPH Cont home med(s): -Flomax 0.4 mg PO QD -Proscara 5 mg PO QD #GRACIE -tracheostomy in place (unplugs when sleeping for sleep apnea) -Pt did not tolerate CPAP -Follows Dr Foley -Monitor #Hx of SBO /Hx of incarcerated hernia s/p repair x2 (September 2017) Stable -Zetia 10 mg PO HS #Hx of H.Pylori -Pt reports he follows GI as outpt #FEN -No IV fluids -Monitor lytes -Diabetic/Sodium controlled diet #PPx DVT: Heparin sq GI: Protonix 40 mg PO QD #Dispo -Tele obs Visit type - Emergency Visit Emergency Visit: Yes ED Registration Date: 07/20/18 Care time: The patient presented to the Emergency Department on the above date and was hospitalized for further evaluation of their emergent condition. - New Patient This patient is new to me today: Yes Date on this admission: 07/20/18 - Critical Care Critical Care patient: No
[2018-07-20] MEDS: ALBUTEROL SO4 2.5/IPRATROPIUM 0.5 INH SOL 3 ML VIAL.NEB. NEB SCH ×4 (07:40→20:12)
[2018-07-20 07:48] LABS: BASO % 0.3 % (0-2.0); HEMATOCRIT 36.2 % (35.4-49); HEMOGLOBIN 11.3 GM/dL (11.7-16.9); LYMPH % 16.6 % (8-40); MCH 25.3 pg (25.7-33.7); MCHC 31.3 g/dl (32.0-35.9); MEAN CELL VOLUME 80.7 fl (80-96); MEAN PLT VOLUME 7.5 fl (7.5-11.1); MONO % 4.9 % (3.8-10.2); NEUT % 78.2 % (42.8-82.8); PLATELET COUNT 398 K/MM3 (134-434); RBC 4.48 M/mm3 (4.00-5.60); RDW 15.9 % (11.9-15.9); WHITE BLOOD COUNT 16.5 K/mm3 (4.0-10.0)
[2018-07-20 08:19] LABS: ALBUMIN 3.8 g/dl (3.4-5.0); ALK PHOS 163 U/L (45-117); ANION GAP 10 MMOL/L (8-16); BILIRUBIN,TOTAL 0.5 mg/dL (0.2-1); BLOOD UREA NITROGEN 29 mg/dL (7-18); CALCIUM 9.1 mg/dL (8.5-10.1); CHLORIDE 100 mmol/L (98-107); CO2 24 mmol/L (21-32); CREATININE 1.7 mg/dL (0.55-1.3); GLUCOSE,RANDOM 267 mg/dL (74-106); MAGNESIUM 2.5 mg/dL (1.8-2.4); PHOSPHOROUS 3.5 mg/dL (2.5-4.9); POTASSIUM 4.6 mmol/L (3.5-5.1); SGOT/AST 26 U/L (15-37); SGPT/ALT 52 U/L (13-61); SODIUM 135 mmol/L (136-145); TOT PROT 7.4 g/dl (6.4-8.2)
[2018-07-20] MEDS: TAMSULOSIN HCL 0.4 MG CAP PO SCH (08:22)
[2018-07-20] MEDS ORDERED: PT OWN MED DRAWER 7, Y5N ONE (09:34)
[2018-07-20] MEDS: ROSUVASTATIN CA 10 MG TABLET (FP) PO SCH (09:42)
[2018-07-20] MEDS: CLOPIDOGREL BISULFATE 75 MG TABLET (FP) PO SCH (09:42)
[2018-07-20] MEDS: ASPIRIN COATED 81 MG TABLET.EC PO SCH (09:42)
[2018-07-20] MEDS: amLODIPine BESYLATE 5 MG TABLET (FP) PO SCH (09:42)
[2018-07-20] MEDS: morphine SO4 SUSTAINED ACTING 15 MG TABLET.SA PO SCH ×2 (09:42→21:55)
[2018-07-20] MEDS: AMITRIPTYLINE HCL 75 MG TABLET PO SCH (09:43)
[2018-07-20] MEDS: FINASTERIDE 5 MG TABLET (FP) PO SCH (09:43)
[2018-07-20] MEDS: PANTOPRAZOLE 40 MG TABLET (FP) PO SCH (09:43)
[2018-07-20] MEDS: RAMIPRIL 5 MG CAPSULE (FP) PO SCH (09:43)
[2018-07-20] MEDS: FUROSEMIDE 40 MG TABLET (FP) PO SCH (09:43)
[2018-07-20] MEDS: BUDESONIDE/FORMETEROL FUMARATE 160/4.5 mcg INHALER IH SCH (09:46)
[2018-07-20] MEDS ORDERED: AZITHROMYCIN 500 MG TABLET PO SCH (10:00)
[2018-07-20] MEDS ORDERED: TIOTROPIUM BROMIDE 2.5 MCG (SPIRIVA) RESPIMAT INHALER IH SCH (10:00)
--- NOTE | 2018-07-20 10:57 | EKG ---
Test Reason : Blood Pressure : / mmHG Vent. Rate : 079 BPM Atrial Rate : 079 BPM P-R Int : 156 ms QRS Dur : 084 ms QT Int : 386 ms P-R-T Axes : 000 007 016 degrees QTc Int : 442 ms POOR DATA QUALITY, INTERPRETATION MAY BE ADVERSELY AFFECTED NORMAL SINUS RHYTHM NORMAL ECG WHEN COMPARED WITH ECG OF 19-JUL-2018 12:55, NO SIGNIFICANT CHANGE WAS FOUND Confirmed by GIOVANNI BULLARD, STEVEN ([id number]) on 07/20/2018 10:57:28 AM Referred By: Confirmed By:STEVEN DAVILA MD
--- NOTE | 2018-07-20 11:18 | EKG ---
Test Reason : Blood Pressure : / mmHG Vent. Rate : 083 BPM Atrial Rate : 083 BPM P-R Int : 162 ms QRS Dur : 086 ms QT Int : 370 ms P-R-T Axes : 045 017 032 degrees QTc Int : 434 ms NORMAL SINUS RHYTHM WITH SINUS ARRHYTHMIA NORMAL ECG WHEN COMPARED WITH ECG OF 19-JUL-2018 18:17, NO SIGNIFICANT CHANGE WAS FOUND Confirmed by GIOVANNI BULLARD, STEVEN ([id number]) on 07/20/2018 11:17:47 AM Referred By: Julita MORALES Confirmed By:STEVEN DAVILA MD
--- NOTE | 2018-07-20 12:30 | PN ---
Progress Note (short form) - Note Progress Note: PULMONARY CONSULTATION DICTATED 07/20/18 IMP SEVERE CHRONIC PERSISTENT ASTHMA WITH ACUTE EXACERBATION ASHD S/P CABG,S/P STENTS DM HTN CHRONIC PAIN H/O PANCREATITIS,PANCREATIC CYST OSAS S/P TRACH BPH RML NODULE STABLE ACUTE ON CHRONIC KIDNEY DISEASE PLAN IV STEROIDS INHALED BRONCHODILATORS O2 NEEDED SPUTUM C+S MONITOR PEAK FLOW MONITOR LYTES,RENAL FUNCTION,BLOOD SUGARS DR VANESSA Problem List - Problems (1) COPD exacerbation Code(s): J44.1 - CHRONIC OBSTRUCTIVE PULMONARY DISEASE W (ACUTE) EXACERBATION (2) Chest pain Code(s): R07.9 - CHEST PAIN, UNSPECIFIED (3) ASHD (arteriosclerotic heart disease) Code(s): I25.10 - ATHSCL HEART DISEASE OF [place] CORONARY ARTERY W/O ANG PCTRS (4) Asthma exacerbation Code(s): J45.901 - UNSPECIFIED ASTHMA WITH (ACUTE) EXACERBATION (5) CHF (congestive heart failure) Code(s): I50.9 - HEART FAILURE, UNSPECIFIED (6) 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 Code(s): E10.8 - TYPE 1 DIABETES MELLITUS WITH UNSPECIFIED COMPLICATIONS (7) Coronary artery disease involving autologous artery coronary bypass graft Code(s): I25.810 - ATHEROSCLEROSIS OF CABG W/O ANGINA PECTORIS (8) H/O cervical spine surgery Code(s): Z98.89 - OTHER SPECIFIED POSTPROCEDURAL STATES * DO NOT USE * (9) H/O heart artery stent Code(s): Z95.5 - PRESENCE OF CORONARY ANGIOPLASTY IMPLANT AND GRAFT (10) Hx of CABG Code(s): Z95.1 - PRESENCE OF AORTOCORONARY BYPASS GRAFT (11) Hyperlipidemia Code(s): E78.5 - HYPERLIPIDEMIA, UNSPECIFIED (12) Hypertension Code(s): I10 - ESSENTIAL (PRIMARY) HYPERTENSION Qualifiers: Hypertension type: essential hypertension Qualified Code(s): I10 - Essential (primary) hypertension (13) Pancreatitis Code(s): K85.9 - ACUTE PANCREATITIS, UNSPECIFIED * DO NOT USE * Qualifiers: Chronicity: acute Pancreatitis type: other (14) Renal insufficiency Code(s): N28.9 - DISORDER OF KIDNEY AND URETER, UNSPECIFIED
[2018-07-20] MEDS ORDERED: ALBUTEROL SO4 0.083% IH SOL 2.5 MG/3 ML VIAL.NEB. NEB PRN (12:34)
[2018-07-20] MEDS: methylPREDNISolone NA SUCC 40 MG/1 ML VIAL IVPUSH SCH ×3 (13:19→21:46)
--- NOTE | 2018-07-20 13:31 | CON.CARD ---
Consult Consult Specialty:: Cardiology Reason for Consultation:: sob - History of Present Illness History of Present Illness: The patient is a 62 year old male with a significant past medical history of CHF , COPD, ACS, CADM CABG, SBO, BPH, hypertension, hyperlipidemia, pancreatitis, chronic back pain, diabetes, and tracheostomy who presents to the emergency department with shortness of breath for the past few weeks but has beeng etting worse recently. The patient reports some associated intermittent chest pain/ tightness with radiation from right to his left chest. He states that his chest pain is sharp. He reports some associated cough intermittently productive of greenish sputum for about 2 weeks was started on abx by Dr. Rojas. The patient states that he was concerned for pneumonia. The patient also reports complaint of chronic lower extremity edema, headache, and intermittent blurriness of either eye (this is a chronic problem - has had it for a long time and last episode yesterday, vision normal currently, he follows up with Dr. Garcia for the same eye complaints). Pt does endorse chronic back pain with pain raiding down his legs. He denies any other symptoms. He denies any fever, chills, nausea, vomiting, diarrhea, constipation or urinary symptoms. He denies any dizziness. . - Past Medical History [employer] W[employer]: Yes: Peripheral Neuropathy (s/p extensive cervical spine surgery post injury with leg weakness and poor balance: patient much improved post extensive physical therapy and now walks with a walker), Other (chronic pain syndrome with mulit-level spine disease managed by PM and his spine surgeon. Planned EMG/ NCVs studies and evaluation of motor weakness in process by treating neurologist Dr. Singh) Cardio/Vascular: Yes: CAD (Last stents placed x 2 last year per patient), CHF (s /p VT several years ago; s/p stenting. mild CHF in the past.), HTN, Hyperlipdemia, VT, Pulmonary Hypertension Pulmonary: Yes: Asthma, Sleep Apnea Gastrointestinal: Yes: Constipation, Pancreatitis (? history of chronic pancreatitis with episodes of acute pancreatitis), Other (FECAL INCONTINENCE SECONDARY TO OVERFLOW followed by Dr. Abdoulaye Wu, IPMN, PANCREATITIS . HAD EPISODE OF ISCHEMIC COLITIS LAST ADMISSION) Renal/: Yes: BPH Psych: Yes: Depression Musculoskeletal: Yes: Chronic low back pain (has back stimulator), Other ( CHRONIC NECK PAIN s/p Lumbar and Cervical fusion ) Endocrine: Yes: Diabetes Mellitus (has insulin pump) - Past Surgical History Past Surgical History: Yes: Breast Biopsy, Colonoscopy, Laminectomy, Stent (1 non eluting, 5 eluting) - Alcohol/Substance Use Hx Alcohol Use: No History of Substance Use: reports: None, Prescription (opiates for chronic pain post cervical spine surgery. 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 History of Recent Travel: No Home Medications - Allergies Allergies/Adverse Reactions: Allergies Allergy/AdvReac Type Severity Reaction Status Date / Time shellfish derived Allergy Severe Verified 08/18/17 13:42 Tetracyclines Allergy Severe Verified 08/18/17 13:42 - Home Medications Home Medications: Ambulatory Orders Albuterol Sulfate Inhaler - [Ventolin HFA Inhaler -] 1 - 2 inh PO Q4H PRN Arformoterol Tartrate [Brovana] 15 mcg IH ASDIR 08/18/17 Aspirin [Aspirin EC] 81 mg PO DAILY 08/18/17 Budesonide/Formeterol Fumarate [SYMBICORT 160/4.5mcg -] 1 inh PO DAILY 08/18/17 Clopidogrel Bisulfate [Plavix] 75 mg PO DAILY 08/18/17 Dexlansoprazole [Dexilant] 30 mg PO DAILY 08/18/17 Ezetimibe [Zetia -] 10 mg PO HS 08/18/17 Furosemide [Lasix] 40 mg PO DAILY 08/18/17 Insulin Pump Controller [Snap Insulin Pump Controller] 1 each ASDIR 08/18/17 Montelukast Sodium [Singulair] 10 mg PO DAILY 08/18/17 Rosuvastatin Calcium [Crestor] 10 mg PO DAILY 08/18/17 Tiotropium Maxwell [Spiriva] 1 puff IH DAILY 08/18/17 Amino Acids/Protein Hydrolys [Prosource No Carb Liquid Pkt] 30 ml PO BID@0800, 1730 packet 09/20/17 Amlodipine Besylate [Norvasc -] 5 mg PO DAILY tablet 09/20/17 Finasteride [Proscar -] 5 mg PO DAILY tablet 09/20/17 Lipase/Protease/Amylase [Stacy Hackett 36,000 Units Capsule] 1 cap PO TIDCM capsule. 09/20/17 Multivitamins [Multivit ([facility] Formulary)] 1 tab PO DAILY tab 09/20/17 Polyethylene Glycol 3350 [Miralax 119 gm Btl -] 17 gm PO BID bottle 09/20/17 Ramipril [Altace] 10 mg PO DAILY capsule 09/20/17 Tamsulosin HCl [Flomax -] 0.4 mg PO DAILY@0830 cap.er.24h 09/20/17 Amitriptyline HCl [Elavil -] 75 mg PO DAILY 03/30/18 Gabapentin 800 mg PO TID 03/30/18 HYDROmorphone [Dilaudid -] 4 mg PO Q4H 03/30/18 Mesalamine [Pentasa] 500 mg PO DAILY 03/30/18 Arformoterol Tartrate [Brovana -] 1 amp NEB RBID amp 04/08/18 Insulin (Novolog 70/30) [Novolog Mix 70/30 Vial -] 40 units SQ BIDAC units Morphine *Sr* [Ms Contin -] 15 mg PO BID tablet.sa MDD 2 04/08/18 predniSONE [Deltasone -] 40 mg PO DAILY 07/19/18 Family Disease History - Family Disease History Family Disease History: Diabetes: Mother ( 58: diabetic complications), CA: Father ( 49: asbestosis), Respiratory: Brother (bronchial asthma, DVT), Other: Mother, Sister (BCA), Son (2, healthy), Daughter (1, healthy) Review of Systems - Review of Systems Constitutional: reports: No Symptoms Eyes: reports: No Symptoms HENT: reports: No Symptoms Neck: reports: No Symptoms Cardiovascular: reports: No Symptoms Respiratory: reports: SOB, SOB on Exertion Gastrointestinal: reports: No Symptoms Genitourinary: reports: No Symptoms Breasts: reports: No Symptoms Reported Musculoskeletal: reports: No Symptoms Integumentary: reports: No Symptoms Neurological: reports: No Symptoms Endocrine: reports: No Symptoms Hematology/Lymphatic: reports: No Symptoms Psychiatric: reports: No Symptoms Vital Signs: Vital Signs Temperature 98.0 F 07/20/18 10:00 Pulse Rate 86 07/20/18 10:00 Respiratory Rate 20 07/20/18 10:00 Blood Pressure 150/87 07/20/18 10:00 O2 Sat by Pulse Oximetry (%) 96 07/20/18 09:00 Constitutional: Yes: Well Nourished, No Distress, Calm Eyes: Yes: WNL, Conjunctiva Clear, EOM Intact HENT: Yes: WNL, Atraumatic, Normocephalic Neck: Yes: WNL, Supple, Trachea Midline Respiratory: Yes: Rhonchi Gastrointestinal: Yes: WNL, Normal Bowel Sounds Renal/: Yes: WNL Cardiovascular: Yes: WNL, Regular Rate and Rhythm Musculoskeletal: Yes: WNL Extremities: Yes: WNL Integumentary: Yes: WNL Neurological: Yes: WNL, Alert, Oriented ...Motor Strength: WNL Psychiatric: Yes: WNL, Alert, Oriented - Other Data Labs, Other Data: CBC, BMP 07/20/18 05:30 07/20/18 05:30 INR, PTT INR 0.99 (0.83-1.09) 07/19/18 14:19 Troponin, BNP 07/19/18 07/19/18 07/19/18 14:19 14:19 18:00 Troponin I < 0.02 < 0.02 B-Natriuretic Peptide 276.8 H 07/20/18 02:24 Troponin I < 0.02 B-Natriuretic Peptide Troponin, BNP 07/19/18 07/19/18 07/19/18 14:19 14:19 18:00 Troponin I < 0.02 < 0.02 B-Natriuretic Peptide 276.8 H 07/20/18 02:24 Troponin I < 0.02 B-Natriuretic Peptide Imaging - Results Chest X-ray: Image Reviewed (cm no i/e) EKG: Image Reviewed (sr rep abn) Problem List - Problems (1) COPD exacerbation Code(s): J44.1 - CHRONIC OBSTRUCTIVE PULMONARY DISEASE W (ACUTE) EXACERBATION (2) Chest pain Code(s): R07.9 - CHEST PAIN, UNSPECIFIED (3) ASHD (arteriosclerotic heart disease) Code(s): I25.10 - ATHSCL HEART DISEASE OF [place] CORONARY ARTERY W/O ANG PCTRS (4) Abdominal pain Code(s): R10.9 - UNSPECIFIED ABDOMINAL PAIN Qualifiers: Abdominal location: upper abdomen, unspecified Qualified Code(s): R10.10 - Upper abdominal pain, unspecified (5) Acute adjustment disorder with anxiety Code(s): F43.22 - ADJUSTMENT DISORDER WITH ANXIETY (6) Acute on chronic diastolic (congestive) heart failure Code(s): I50.33 - ACUTE ON CHRONIC DIASTOLIC (CONGESTIVE) HEART FAILURE (7) Acute on chronic systolic right heart failure Code(s): I50.23 - ACUTE ON CHRONIC SYSTOLIC (CONGESTIVE) HEART FAILURE (8) Anemia Code(s): D64.9 - ANEMIA, UNSPECIFIED (9) Anxiety Code(s): F41.9 - ANXIETY DISORDER, UNSPECIFIED (10) Arrhythmia Code(s): I49.9 - CARDIAC ARRHYTHMIA, UNSPECIFIED (11) Asthma Code(s): J45.909 - UNSPECIFIED ASTHMA, UNCOMPLICATED Qualifiers: Asthma severity: unspecified severity (12) Asthma exacerbation Code(s): J45.901 - UNSPECIFIED ASTHMA WITH (ACUTE) EXACERBATION (13) Asthma exacerbation in COPD Code(s): J44.1 - CHRONIC OBSTRUCTIVE PULMONARY DISEASE W (ACUTE) EXACERBATION; J45.901 - UNSPECIFIED ASTHMA WITH (ACUTE) EXACERBATION (14) Asthma with bronchitis and status asthmaticus Code(s): J45.902 - UNSPECIFIED ASTHMA WITH STATUS ASTHMATICUS Qualifiers: Asthma severity: severe persistent Qualified Code(s): J45.52 - Severe persistent asthma with status asthmaticus (15) Atypical chest pain Code(s): R07.89 - OTHER CHEST PAIN (16) BPH (benign prostatic hyperplasia) Code(s): N40.0 - BENIGN PROSTATIC HYPERPLASIA WITHOUT LOWER URINRY TRACT SYMP (17) Bronchitis Code(s): J40 - BRONCHITIS, NOT SPECIFIED ACUTE OR CHRONIC (18) CHF (congestive heart failure) Code(s): I50.9 - HEART FAILURE, UNSPECIFIED (19) COPD (chronic obstructive pulmonary disease) Code(s): J44.9 - CHRONIC OBSTRUCTIVE PULMONARY DISEASE, UNSPECIFIED (20) Cervical disc disease Code(s): M50.90 - CERVICAL DISC DISORDER, UNSP, UNSPECIFIED CERVICAL REGION (21) Cervical radiculopathy Code(s): M54.12 - RADICULOPATHY, CERVICAL REGION (22) Cervical vertebral fusion Code(s): M43.22 - FUSION OF SPINE, CERVICAL REGION (23) Cervicalgia Code(s): M54.2 - CERVICALGIA (24) Chest pain made worse by breathing Code(s): R07.1 - CHEST PAIN ON BREATHING (25) Chronic back pain Code(s): M54.9 - DORSALGIA, UNSPECIFIED; G89.29 - OTHER CHRONIC PAIN Qualifiers: (26) Chronic bronchitis with COPD (chronic obstructive pulmonary disease) Code(s): J44.9 - CHRONIC OBSTRUCTIVE PULMONARY DISEASE, UNSPECIFIED (27) Chronic diastolic (congestive) heart failure Code(s): I50.32 - CHRONIC DIASTOLIC (CONGESTIVE) HEART FAILURE (28) Chronic pain Code(s): G89.29 - OTHER CHRONIC PAIN Qualifiers: Chronic pain type: chronic pain syndrome Qualified Code(s): G89.4 - Chronic pain syndrome (29) Chronic pain following surgery or procedure Code(s): G89.28 - OTHER CHRONIC POSTPROCEDURAL PAIN (30) Chronic pain with drug dependence Code(s): G89.29 - OTHER CHRONIC PAIN; F19.20 - OTHER PSYCHOACTIVE SUBSTANCE DEPENDENCE, UNCOMPLICATED (31) Chronic pancreatitis Code(s): K86.1 - OTHER CHRONIC PANCREATITIS Qualifiers: Pancreatitis type: unspecified pancreatitis type Qualified Code(s): K86.1 - Other chronic pancreatitis (32) Constipation Code(s): K59.00 - CONSTIPATION, UNSPECIFIED (33) 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 Code(s): E10.8 - TYPE 1 DIABETES MELL[place] WITH UNSPECIFIED COMPLICATIONS (34) Coronary artery disease Code(s): I25.10 - ATHSCL HEART DISEASE OF [place] CORONARY ARTERY W/O ANG PCTRS (35) Coronary artery disease involving autologous artery coronary bypass graft Code(s): I25.810 - ATHEROSCLEROSIS OF CABG W/O ANGINA PECTORIS (36) Diabetes mellitus Code(s): E11.9 - TYPE 2 DIABETES MELL[place] WITHOUT COMPLICATIONS Qualifiers: Diabetes mellitus type: type 2 Diabetes mellitus complication detail: with unspecified neuropathy (37) 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 Code(s): E10.51 - TYPE 1 DIABETES W DIABETIC PERIPHERAL ANGIOPATH W/O GANGRENE; I70.209 - UNSP ATHSCL [place] ARTERIES OF EXTREMITIES, UNSP EXTREMITY (38) Diabetes mellitus, insulin dependent (IDDM), uncontrolled Code(s): E10.65 - TYPE 1 DIABETES [place] WITH HYPERGLYCEMIA (39) Diarrhea Code(s): R19.7 - DIARRHEA, UNSPECIFIED Qualifiers: Diarrhea type: functional diarrhea Qualified Code(s): K59.1 - Functional diarrhea (40) Elevated lipase Code(s): R74.8 - ABNORMAL LEVELS OF OTHER SERUM ENZYMES (41) Esophagitis determined by endoscopy Code(s): K20.9 - ESOPHAGITIS, UNSPECIFIED (42) Fecal incontinence Code(s): R15.9 - FULL INCONTINENCE OF FECES (43) Fecal incontinence alternating with constipation Code(s): R15.9 - FULL INCONTINENCE OF FECES; K59.00 - CONSTIPATION, UNSPECIFIED (44) Fever of unknown origin Code(s): R50.9 - FEVER, UNSPECIFIED (45) Flank pain Code(s): R10.9 - UNSPECIFIED ABDOMINAL PAIN (46) Fungal esophagitis Code(s): K20.8 - OTHER ESOPHAGITIS (47) Fusion of lumbar spine Code(s): M43.26 - FUSION OF SPINE, LUMBAR REGION (48) Gross hematuria Code(s): R31.0 - GROSS HEMATURIA (49) H/O cervical spine surgery Code(s): Z98.89 - OTHER SPECIFIED POSTPROCEDURAL STATES * DO NOT USE * (50) H/O heart artery stent Code(s): Z95.5 - PRESENCE OF CORONARY ANGIOPLASTY IMPLANT AND GRAFT (51) H/O umbilical hernia repair Code(s): Z98.890 - OTHER SPECIFIED POSTPROCEDURAL STATES; Z87.19 - PERSONAL HISTORY OF OTHER DISEASES OF THE DIGESTIVE SYSTEM (52) Headache Code(s): R51 - HEADACHE (53) Hematuria Code(s): R31.9 - HEMATURIA, UNSPECIFIED (54) Hx of CABG Code(s): Z95.1 - PRESENCE OF AORTOCORONARY BYPASS GRAFT (55) Hyperlipidemia Code(s): E78.5 - HYPERLIPIDEMIA, UNSPECIFIED (56) Hypertension Code(s): I10 - ESSENTIAL (PRIMARY) HYPERTENSION Qualifiers: Hypertension type: essential hypertension Qualified Code(s): I10 - Essential (primary) hypertension (57) Hypertension associated with diabetes Code(s): E11.59 - TYPE 2 DIABETES [place]LL[place] WITH OTH CIRCULATORY COMPLICATIONS; I10 - ESSENTIAL (PRIMARY) HYPERTENSION (58) Hypokalemia Code(s): E87.6 - HYPOKALEMIA (59) IPMN (intraductal papillary mucinous neoplasm) Code(s): D49.0 - NEOPLASM OF UNSPECIFIED BEHAVIOR OF DIGESTIVE SYSTEM (60) Lactic acid increased Code(s): E87.2 - ACIDOSIS (61) Leukocytosis Code(s): D72.829 - ELEVATED WHITE BLOOD CELL COUNT, UNSPECIFIED (62) Leukocytosis Code(s): D72.829 - ELEVATED WHITE BLOOD CELL COUNT, UNSPECIFIED (63) Myocardial infarct Code(s): I21.3 - ST ELEVATION (STEMI) MYOCARDIAL INFARCTION OF UNSP SITE (64) Nausea Code(s): R11.0 - NAUSEA (65) Nausea & vomiting Code(s): R11.2 - NAUSEA WITH VOMITING, UNSPECIFIED Qualifiers: Vomiting type: unspecified Vomiting Intractability: unspecified Qualified Code(s): R11.2 - Nausea with vomiting, unspecified (66) Neutropenia Code(s): D70.9 - NEUTROPENIA, UNSPECIFIED Qualifiers: Neutropenia type: unspecified Qualified Code(s): D70.9 - Neutropenia, unspecified (67) GRACIE (obstructive sleep apnea) Code(s): G47.33 - OBSTRUCTIVE SLEEP APNEA (ADULT) (PEDIATRIC) (68) Opiate dependence Code(s): F11.20 - OPIOID DEPENDENCE, UNCOMPLICATED (69) Pancreatitis Code(s): K85.9 - ACUTE PANCREATITIS, UNSPECIFIED * DO NOT USE * Qualifiers: Chronicity: acute Pancreatitis type: other (70) Pancreatitis, acute Code(s): K85.9 - ACUTE PANCREATITIS, UNSPECIFIED * DO NOT USE * Qualifiers: Pancreatitis type: unspecified pancreatitis type (71) Paroxysmal SVT (supraventricular tachycardia) Code(s): I47.1 - SUPRAVENTRICULAR TACHYCARDIA (72) Pneumonia Code(s): J18.9 - PNEUMONIA, UNSPECIFIED ORGANISM Qualifiers: (73) Pre-ulcerative corn or callous Code(s): L84 - CORNS AND CALLOSITIES (74) Pulmonary hypertension Code(s): I27.2 - OTHER SECONDARY PULMONARY HYPERTENSION * DO NOT USE * (75) Rectal bleeding Code(s): K62.5 - HEMORRHAGE OF ANUS AND RECTUM (76) Renal calculus, left Code(s): N20.0 - CALCULUS OF KIDNEY (77) Renal insufficiency Code(s): N28.9 - DISORDER OF KIDNEY AND URETER, UNSPECIFIED (78) Right leg pain Code(s): M79.604 - PAIN IN RIGHT LEG (79) S/P laparotomy Code(s): Z98.890 - OTHER SPECIFIED POSTPROCEDURAL STATES (80) S/P lumbar spinal fusion Code(s): Z98.1 - ARTHRODESIS STATUS (81) SBO (small bowel obstruction) Code(s): K56.609 - UNSP INTESTNL OBST, UNSP TO PARTIAL VERSUS COMPLETE OBST (82) Shortness of breath Code(s): R06.02 - SHORTNESS OF BREATH (83) Sleep apnea Code(s): G47.30 - SLEEP APNEA, UNSPECIFIED (84) Status post spinal surgery Code(s): Z98.89 - OTHER SPECIFIED POSTPROCEDURAL STATES * DO NOT USE * (85) Tracheostomy in place Code(s): Z98.89 - OTHER SPECIFIED POSTPROCEDURAL STATES * DO NOT USE * (86) Type 2 diabetes mellitus with diabetic neuropathic arthropathy Code(s): E11.610 - TYPE 2 DIABETES MELLITUS W DIABETIC NEUROPATHIC ARTHROPATHY (87) Type 2 diabetes mellitus with diabetic neuropathy Code(s): E11.40 - TYPE 2 DIABETES [place]LL[place] WITH DIABETIC NEUROPATHY, UNSP (88) Type 2 diabetes mellitus with hyperosmolarity without nonketotic hyperglycemic-hyperosmolar coma (nkhhc) Code(s): E11.00 - TYPE 2 DIAB W HYPROSM W/O NONKET HYPRGLY-HYPROS COMA ([facility]) (89) Umbilical hernia Code(s): K42.9 - UMBILICAL HERNIA WITHOUT OBSTRUCTION OR GANGRENE Qualifiers: Obstruction and gangrene presence: without obstruction or gangrene Qualified Code(s): K42.9 - Umbilical hernia without obstruction or gangrene Assessment/Plan CHF, COPD, ACS, CADM CABG, SBO, BPH, hypertension, hyperlipidemia, pancreatitis , chronic back pain, diabetes, and tracheostomy doubd chf ( bnp slightly elevated probably due to CRI) cont telemetry echo abx rx as per pulmonary will f/u
--- NOTE | 2018-07-20 16:09 | CONS ---
DATE OF CONSULTATION: 07/20/2018 REFERRING PHYSICIAN: Dougie Escalera MD The patient is a 62-year-old black male known to me from previous hospitalization, past medical history of chronic persistent asthma, COPD, with multiple exacerbations in the past, history of congestive heart failure, chronic ACS, ASHD status post CABG, SBO, pancreatitis, BPH, hypertension, hyperlipidemia, obstructive sleep apnea status post tracheostomy, diabetes insulin-dependent, admitted to [facility] with complaint of increasing shortness of breath and dyspnea on exertion. Patient states for the past few weeks or so, he has been getting progressively more short of breath and dyspnea on exertion. He initially did not seek medical attention, has been treating himself. 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 Despite these measures, he has had increasing shortness of breath, cough, and sputum production. He presented to the emergency room. Patient denies any fevers, chills, nausea, vomiting, diaphoresis. Denies any chest pains, palpitations. Patient denies any hemoptysis, says his cough is productive of green sputum. Patient also complains of chronic lower extremity edema and intermittent blurriness of the eyes. Past medical history, again, included chronic obstructive pulmonary disease, chronic persistent asthma with multiple exacerbations, congestive heart failure, ASHD status post CABG, SBO, hypertension, BPH, diabetes mellitus, pancreatitis, pancreatic cyst, hyperlipidemia, chronic back pain, and history of obstructive sleep apnea status post tracheostomy. REVIEW OF SYSTEMS: Positive shortness of breath, positive cough, positive sputum. No fever, no chills, no hemoptysis, no abdominal pain. Positive right-sided chest discomfort. Positive lower extremity edema. Current medications include Symbicort 160/4.5, prednisone 60, Flomax Altace, heparin, Neurontin, Elavil, Spiriva, DuoNeb, Zetia, Norvasc, Crestor, insulin, Singulair, Lasix, Ecotrin, Dilaudid, MS Contin, Plavix, Protonix, Proscar. PHYSICAL EXAMINATION: General: The patient is an obese male, awake, alert, mildly dyspneic but in no acute distress. Vital Signs: He is currently afebrile. Blood pressure is 150/87. Respiratory rate 20. O2 saturation is 96% on room air. HEENT: Normocephalic, atraumatic. Neck: Supple. Heart: Regular, S1, S2. Chest: Bilateral rhonchi and wheezes. Abdomen: Soft. Bowel sounds are positive. Extremities: Bilateral extremity edema. LABORATORY DATA: WBC is 16.5, hemoglobin 11.3, hematocrit 36.2, with a platelet count of 398,000. Venous blood gas 7.38, pCO2 of 44, pO2 of 45. Chemistries: BUN 29, creatinine 1.7, magnesium 2.5. Troponin less than 2. CK is 685. Head CT negative, mild volume loss, no evidence of acute pathology. Chest x-ray: Cardiomegaly, no acute infiltrates or effusion, increased markings bilaterally. Duplex, lower extremity: No evidence of DVT. IMPRESSION: 1. Chronic persistent asthma with acute exacerbation. 2. Arteriosclerotic heart disease, status post coronary artery bypass graft. 3. Obstructive sleep apnea, status post stent. 4. Diabetes. 5. Pulmonary nodule, being followed as an outpatient. 6. Right middle lobe nodule, stable. 7. History of chronic pancreatitis. 8. Pancreatic cyst. 9. Arteriosclerotic heart disease, status post myocardial infarction, status post coronary artery bypass graft, status post stents, mostly recently December 2015. PLAN: IV steroids, inhaled bronchodilators, supplemental O2, Lasix, daily weights, monitor peak flow, O2 as needed. Sputum C&S. GÉNESIS VANESSA M.D. KELSIE/[id number]
--- NOTE | 2018-07-20 16:26 | ECHO ---
Name: LOYDA COTTONN Exam:Adult Echocardiogram Study Date: 07/20/2018 02:41 PM Age: 62 yrs Reason For Study: LVEF Height: 73 in Weight: 277 lb BSA: 2.5 m2 MMode/2D Measurements & Calculations IVSd: 0.86 cm Ao root diam: 3.0 cm LVIDd: 4.7 cm LA dimension: 3.6 cm LVIDs: 3.4 cm LVPWd: 0.79 cm EDV(Teich): 102.3 ml ESV(Teich): 46.8 ml Doppler Measurements & Calculations MV E max han: 130.0 cm/sec MV A max han: 129.5 cm/sec MV E/A: 1.0 MV dec time: 0.09 sec Procedure A two-dimensional transthoracic echocardiogram with color flow and Doppler was performed. Left Ventricle There is mild concentric left ventricular hypertrophy. The left ventricular ejection fraction is norm al. Left Ventricular Filling pattern is normal for age. The left ventricular wall motion is normal. Right Ventricle The right ventricle is normal in size and function. Atria Normal left and right atrial size and function. Mitral Valve There is mild mitral valve thickening. There is no mitral valve stenosis. There is mild mitral regurg itation. Tricuspid Valve There is mild tricuspid valve thickening. There is no tricuspid stenosis. There was insufficient TR d etected to calculate RV systolic pressure. Aortic Valve The aortic valve is not well visualized. No hemodynamically significant valvular aortic stenosis. No aortic regurgitation is present. Pulmonic Valve The pulmonic valve is not well visualized. Great Vessels The aortic root is normal size. Pericardium/Pleura There is no pericardial effusion. Interpretation Summary There is mild concentric left ventricular hypertrophy. The left ventricular ejection fraction is normal. The left ventricular wall motion is normal. There is mild mitral regurgitation. There was insufficient TR detected to calculate RV systolic pressure. Left Ventricular Filling pattern is normal for age. MD Panfilo Alan 07/20/2018 04:26 PM
--- NOTE | 2018-07-20 19:00 | PN ---
Teaching Attending Note Name of Resident: Omaira Hoyt ATTENDING PHYSICIAN STATEMENT I saw and evaluated the patient. I reviewed the resident's note and discussed the case with the resident. I agree with the resident's findings and plan as documented. SUBJECTIVE: cont tohave cough , and SOB . has brown sputum production . no fever . no chills . had 5 day course of augmentin prior to presentation and had been on 5 days of prednisone . has Cp with inspiration in epigastric area, with different type of CP at L side. very vague about description OBJECTIVE: NAD CV: RRR Lungs: prolonged exp phase, scattered wheezing, and cough Ext : 2+ edema on RLE , and 1+ on L leg ASSESSMENT AND PLAN: 62 y/o man with h/o CAD, s/p CABG and Stents, HTN,asthma HLP, back pain, SBO, chronic pancreatitis, BPH, H pylori , GRACIE s/p trach , and other medical problems who presented with cough, CP ,and SOB 1- Acute asthma exacerbation : - steorids - Nebs - symbicort - dc abx , no evidence of infection . already received a course as out pt - d/w Dr. gurrola 2- h/o Diastolic CHF. LE edema might be due to being on steroids. but has Rachel , which might indicate mild CHF exacerbation - started on IV lasix. - monitor renal function , if improves will cont with diuresis - cont BP control 3- Uncontrolled DM , worse with steroids - cont insulin pump, pending endocrine Recs. pt needs basal and boluses. no SSI per us if pump is on - pt refused to stop pump. 4- RACHEL : could be form heart failure or form CKD . diurese and monitor 5- back pain: cont his home dilaudid dispo : OC
[2018-07-20] MEDS: EZETIMIBE 10 MG TABLET (FP) PO SCH (21:57)
[2018-07-20] MEDS: MONTELUKAST NA 10 MG TABLET PO SCH (21:57)
[2018-07-21] MEDS: methylPREDNISolone NA SUCC 40 MG/1 ML VIAL IVPUSH SCH ×4 (03:52→21:30)
[2018-07-21] MEDS: HEPARIN NA (PORCINE) 5,000 UNITS/ML 1ML VIAL SQ SCH ×3 (06:38→21:30)
[2018-07-21] MEDS: INSULIN SLIDING SCALE (NOVOLOG) 1 VIAL SQ SCH ×3 (06:39→18:05)
[2018-07-21] MEDS: GABAPENTIN 400 MG CAPSULE (FP) PO SCH ×3 (06:39→21:31)
[2018-07-21 07:44] LABS: HEMATOCRIT 33.2 % (35.4-49); HEMOGLOBIN 10.4 GM/dL (11.7-16.9); MCHC 31.3 g/dl (32.0-35.9); MEAN CELL VOLUME 79.8 fl (80-96); MEAN PLT VOLUME 7.6 fl (7.5-11.1); PLATELET COUNT 360 K/MM3 (134-434); RBC 4.16 M/mm3 (4.00-5.60); WHITE BLOOD COUNT 16.3 K/mm3 (4.0-10.0)
[2018-07-21] MEDS: ALBUTEROL SO4 2.5/IPRATROPIUM 0.5 INH SOL 3 ML VIAL.NEB. NEB SCH ×4 (07:45→20:44)
[2018-07-21] MEDS ORDERED: FUROSEMIDE 40 MG/4 ML INJECTABLE VIAL ONE (07:56)
[2018-07-21 08:00] LABS: ANION GAP 7 MMOL/L (8-16); BLOOD UREA NITROGEN 41 mg/dL (7-18); CALCIUM 8.9 mg/dL (8.5-10.1); CHLORIDE 100 mmol/L (98-107); CO2 27 mmol/L (21-32); CREATININE 1.7 mg/dL (0.55-1.3); POTASSIUM 4.8 mmol/L (3.5-5.1); SODIUM 133 mmol/L (136-145)
[2018-07-21] MEDS: TAMSULOSIN HCL 0.4 MG CAP PO SCH (08:35)
[2018-07-21] MEDS ORDERED: PT OWN MED DRAWER 7, Y5N ONE (08:57)
[2018-07-21 09:12] LABS: GLUCOSE,RANDOM 316 mg/dL (74-106)
[2018-07-21] MEDS: BUDESONIDE/FORMETEROL FUMARATE 160/4.5 mcg INHALER IH SCH (09:38)
[2018-07-21] MEDS: FUROSEMIDE 40 MG/4 ML INJECTABLE VIAL IVPUSH SCH (09:38)
[2018-07-21] MEDS: morphine SO4 SUSTAINED ACTING 15 MG TABLET.SA PO SCH (09:39)
[2018-07-21] MEDS: PANTOPRAZOLE 40 MG TABLET (FP) PO SCH (09:39)
[2018-07-21] MEDS: CLOPIDOGREL BISULFATE 75 MG TABLET (FP) PO SCH (09:39)
[2018-07-21] MEDS: ASPIRIN COATED 81 MG TABLET.EC PO SCH (09:39)
[2018-07-21] MEDS: RAMIPRIL 5 MG CAPSULE (FP) PO SCH (09:40)
[2018-07-21] MEDS: ROSUVASTATIN CA 10 MG TABLET (FP) PO SCH (09:40)
[2018-07-21] MEDS: FINASTERIDE 5 MG TABLET (FP) PO SCH (09:40)
[2018-07-21] MEDS: AMITRIPTYLINE HCL 75 MG TABLET PO SCH (09:40)
[2018-07-21] MEDS: amLODIPine BESYLATE 5 MG TABLET (FP) PO SCH (09:40)
--- NOTE | 2018-07-21 11:25 | PN ---
Progress Note, Physician Chief Complaint: Pt A&Ox3; sitting up at bedside; anxious; intermittent chest pain associated with bouts of dyspnea. History of Present Illness: 62 year old black male with PMH CA (normal LVEF, with mild LVH by 07/2018 ECHO) , 6 coronary stents, most recently after 07/2016 + stress MIBI (?repeated within the past year at [facility]), COPD, asthma, diastolic CHF, trach, HTN, HLD, chronic pancreatitis, chronic back pain, SBO, incararated hernia, h. pylori , BPH, GRACIE, obesity, anxiety, chronic headaches (1X/week), who presented to ED for shortness of breath and chest pain. Pt stated his chest pain began x3 days ago, located substernally, radiating to left chest, intermittent, no alleviating factors, sometimes aggravated by coughing. Pt admitted to nonproductive cough x2 weeks, was seen by PCP, placed on Augmentin, but symptoms persisted. Pt admitted to lower extremity swelling (right is always worse than left). Pt also admitted to right sided headache, right sided blurry vision, gradual in onset, intermittent, similar to prior. Pt stated his BP was elevated this morning, 157/90. Pt denied fever, chills, abdominal pain, nausea, vomiting, diarrhea. 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 Bola Elaine - Current Medication List Current Medications: Active Medications Albuterol Sulfate (Ventolin 0.083% Nebulizer Soln -) 1 amp NEB Q4H PRN PRN Reason: SHORT OF BREATH/WHEEZING Albuterol/Ipratropium (Duoneb -) 1 amp NEB RQID [facility] Last Admin: 07/21/18 07:45 Dose: 1 amp Amitriptyline HCl (Elavil -) 75 mg PO DAILY [facility] Last Admin: 07/21/18 09:40 Dose: 75 mg Amlodipine Besylate (Norvasc -) 5 mg PO DAILY [facility] Last Admin: 07/21/18 09:40 Dose: 5 mg Aspirin (Ecotrin -) 81 mg PO DAILY [facility] Last Admin: 07/21/18 09:39 Dose: 81 mg Budesonide/Formoterol Fumarate (Symbicort 160/4.5mcg -) 1 puff IH DAILY [facility] Last Admin: 07/21/18 09:38 Dose: 1 puff Clopidogrel Bisulfate (Plavix -) 75 mg PO DAILY [facility] Last Admin: 07/21/18 09:39 Dose: 75 mg Ezetimibe (Zetia -) 10 mg PO HS [facility] Last Admin: 07/20/18 21:57 Dose: 10 mg Finasteride (Proscar -) 5 mg PO DAILY [facility] Last Admin: 07/21/18 09:40 Dose: 5 mg Furosemide (Lasix Injection -) 40 mg IVPUSH DAILY [facility] Last Admin: 07/21/18 09:38 Dose: 40 mg Gabapentin (Neurontin -) 800 mg PO TID [facility] Last Admin: 07/21/18 06:39 Dose: 800 mg Heparin Sodium (Porcine) (Heparin -) 5,000 unit SQ TID [facility] Last Admin: 07/21/18 06:38 Dose: 5,000 unit Hydromorphone HCl (Dilaudid -) 4 mg PO Q4H PRN PRN Reason: PAIN LEVEL 6-10 Last Admin: 07/21/18 07:32 Dose: 4 mg Insulin Aspart (Novolog Vial Sliding Scale -) 1 vial SQ [facility]; Protocol Last Admin: 07/21/18 06:39 Dose: 10 unit Methylprednisolone Sodium Succinate (Solu-Medrol -) 40 mg IVPUSH Q6H-IV [facility] Last Admin: 07/21/18 08:35 Dose: 40 mg Montelukast Sodium (Singulair -) 10 mg PO HS [facility] Last Admin: 07/20/18 21:57 Dose: 10 mg Morphine Sulfate (Ms Contin -) 15 mg PO BID [facility] Last Admin: 07/21/18 09:39 Dose: 15 mg Pantoprazole Sodium (Protonix -) 40 mg PO DAILY [facility] Last Admin: 07/21/18 09:39 Dose: 40 mg Ramipril (Altace -) 10 mg PO DAILY [facility] Last Admin: 07/21/18 09:40 Dose: 10 mg Rosuvastatin Calcium (Crestor -) 10 mg PO DAILY [facility] Last Admin: 07/21/18 09:40 Dose: 10 mg Tamsulosin HCl (Flomax -) 0.4 mg PO DAILY@0830 [facility] Last Admin: 07/21/18 08:35 Dose: 0.4 mg - Objective Vital Signs: Vital Signs Temperature 98.4 F 07/21/18 10:00 Pulse Rate 105 H 07/21/18 10:00 Respiratory Rate 20 07/21/18 10:00 Blood Pressure 145/95 07/21/18 10:00 O2 Sat by Pulse Oximetry (%) 95 07/21/18 09:00 Constitutional: Yes: Anxious, Obese HENT: Yes: Other Neck: Yes: Decreased ROM, Other (tracheostomy) Cardiovascular: Yes: S1, S2, S4 Respiratory: Yes: Tachypnea, Wheezes (expiratory, L>R) Gastrointestinal: Yes: Soft, Abdomen, Obese, Other (surgtical sites dry) ...Rectal Exam: Yes: Deferred Genitourinary: No: Anuria Breast(s): Yes: WNL Musculoskeletal: Yes: Back Pain, Joint Stiffness Edema: No Peripheral Pulses WNL: Yes Integumentary: Yes: WNL Wound/Incision: Yes: Clean/Dry Neurological: Yes: Alert, Oriented Psychiatric: Yes: Other (anxiety; dependent on pain medications) Labs: CBC, BMP 07/21/18 05:45 07/21/18 05:45 INR, PTT INR 0.99 (0.83-1.09) 07/19/18 14:19 Abnormal Lab Results 07/21/18 07/21/18 05:45 05:45 WBC 16.3 H Hgb 10.4 L Hct 33.2 L MCV 79.8 L MCH 25.0 L MCHC 31.3 L RDW 16.0 H Sodium 133 L Anion Gap 7 L BUN 41 H Creatinine 1.7 H Random Glucose 316 H* - ....Imaging EKG: Image Reviewed (NSR; sinus arrhythmia) Other: Image Reviewed (telemetry: NSR; sinus arrhythmia) Problem List - Problems (1) COPD exacerbation Code(s): J44.1 - CHRONIC OBSTRUCTIVE PULMONARY DISEASE W (ACUTE) EXACERBATION (2) ASHD (arteriosclerotic heart disease) Code(s): I25.10 - ATHSCL HEART DISEASE OF [place] CORONARY ARTERY W/O ANG PCTRS (3) Abdominal pain Code(s): R10.9 - UNSPECIFIED ABDOMINAL PAIN Qualifiers: Abdominal location: upper abdomen, unspecified Qualified Code(s): R10.10 - Upper abdominal pain, unspecified (4) Acute on chronic diastolic (congestive) heart failure Code(s): I50.33 - ACUTE ON CHRONIC DIASTOLIC (CONGESTIVE) HEART FAILURE (5) Anxiety Code(s): F41.9 - ANXIETY DISORDER, UNSPECIFIED (6) Asthma Code(s): J45.909 - UNSPECIFIED ASTHMA, UNCOMPLICATED Qualifiers: Asthma severity: unspecified severity (7) Atypical chest pain Assessment/Plan: associated with episodes of dyspnea. TNI < 0.02 x 3 EKG: NSR with sinus arrhythmia; Telemetry: no arrhythmias or STT changes F/u most recent stress test (?reportedly done at [facility]; pt is there followed by structural layout worker--Dr. Bola Elaine) Code(s): R07.89 - OTHER CHEST PAIN (8) Cervical disc disease Code(s): M50.90 - CERVICAL DISC DISORDER, UNSP, UNSPECIFIED CERVICAL REGION (9) Diabetes mellitus, insulin dependent (IDDM), uncontrolled Code(s): E10.65 - TYPE 1 DIABETES MELLITUS WITH HYPERGLYCEMIA (10) H/O heart artery stent Code(s): Z95.5 - PRESENCE OF CORONARY ANGIOPLASTY IMPLANT AND GRAFT (11) H/O umbilical hernia repair Code(s): Z98.890 - OTHER SPECIFIED POSTPROCEDURAL STATES; Z87.19 - PERSONAL HISTORY OF OTHER DISEASES OF THE DIGESTIVE SYSTEM (12) GRACIE (obstructive sleep apnea) Code(s): G47.33 - OBSTRUCTIVE SLEEP APNEA (ADULT) (PEDIATRIC) (13) Hypertension Assessment/Plan: on ramipril 10 mg/d. Increase amlodipine to 10 mg/d (pt has been on this dose at home). Code(s): I10 - ESSENTIAL (PRIMARY) HYPERTENSION Qualifiers: Hypertension type: essential hypertension Qualified Code(s): I10 - Essential (primary) hypertension (14) Hyperlipidemia Assessment/Plan: high-dose statin; keep LDL cholesterol < 70 mg/dL (f/u lipid panel). Code(s): E78.5 - HYPERLIPIDEMIA, UNSPECIFIED (15) Obesity Assessment/Plan: the importance of diet change, weight loss, and increase in exercise was discussed in detail. Pt plans for rehab "of everything (back; abdomen post-redo surgery for hernia; heart) at [facility]. Code(s): E66.9 - OBESITY, UNSPECIFIED (16) Acute adjustment disorder with anxiety Code(s): F43.22 - ADJUSTMENT DISORDER WITH ANXIETY
[2018-07-21] MEDS ORDERED: INSULIN (NOVOLOG) ASPART 100 UNITS/ML 10ML VIAL ONE ×3 (11:28→17:59)
[2018-07-21 12:33] LABS: CHOLESTEROL 175 mg/dL (50-200); HDL CHOLESTEROL 74 mg/dL (40-60); TRIGLYCERIDES 89 mg/dL (0-150)
--- NOTE | 2018-07-21 12:41 | PN ---
Progress Note (short form) - Note Progress Note: Breathing feels a little better. Still with congested cough and wheeze. No hemoptysis. Intake & Output 07/18/18 07/19/18 07/20/18 07/21/18 23:59 23:59 23:59 23:59 Intake Total 1590 310 Output Total 1500 800 Balance 90 -490 Weight 250 lb 277 lb 2 oz 282 lb 3.2 oz Last Vital Signs Temp Pulse Resp BP Pulse Ox 98.4 F 105 H 20 145/95 95 07/21/18 10:00 07/21/18 10:00 07/21/18 10:00 07/21/18 10:00 07/21/18 09:00 Active Medications Albuterol Sulfate (Ventolin 0.083% Nebulizer Soln -) 1 amp NEB Q4H PRN PRN Reason: SHORT OF BREATH/WHEEZING Albuterol/Ipratropium (Duoneb -) 1 amp NEB RQID [facility] Last Admin: 07/21/18 11:35 Dose: 1 amp Amitriptyline HCl (Elavil -) 75 mg PO DAILY [facility] Last Admin: 07/21/18 09:40 Dose: 75 mg Amlodipine Besylate (Norvasc -) 5 mg PO ONCE ONE Stop: 07/21/18 12:46 Last Admin: 07/21/18 12:38 Dose: 5 mg Amlodipine Besylate (Norvasc -) 10 mg PO DAILY [facility] Aspirin (Ecotrin -) 81 mg PO DAILY [facility] Last Admin: 07/21/18 09:39 Dose: 81 mg Budesonide/Formoterol Fumarate (Symbicort 160/4.5mcg -) 1 puff IH DAILY [facility] Last Admin: 07/21/18 09:38 Dose: 1 puff Clopidogrel Bisulfate (Plavix -) 75 mg PO DAILY [facility] Last Admin: 07/21/18 09:39 Dose: 75 mg Ezetimibe (Zetia -) 10 mg PO HS [facility] Last Admin: 07/20/18 21:57 Dose: 10 mg Finasteride (Proscar -) 5 mg PO DAILY [facility] Last Admin: 07/21/18 09:40 Dose: 5 mg Furosemide (Lasix Injection -) 40 mg IVPUSH DAILY [facility] Last Admin: 07/21/18 09:38 Dose: 40 mg Gabapentin (Neurontin -) 800 mg PO TID [facility] Last Admin: 07/21/18 06:39 Dose: 800 mg Heparin Sodium (Porcine) (Heparin -) 5,000 unit SQ TID [facility] Last Admin: 07/21/18 06:38 Dose: 5,000 unit Hydromorphone HCl (Dilaudid -) 4 mg PO Q4H PRN PRN Reason: PAIN LEVEL 6-10 Last Admin: 07/21/18 11:32 Dose: 4 mg Insulin Aspart (Novolog Vial Sliding Scale -) 1 vial SQ [facility]CHS [facility]; Protocol Last Admin: 07/21/18 12:26 Dose: 6 unit Methylprednisolone Sodium Succinate (Solu-Medrol -) 40 mg IVPUSH Q6H-IV [facility] Last Admin: 07/21/18 08:35 Dose: 40 mg Montelukast Sodium (Singulair -) 10 mg PO HS [facility] Last Admin: 07/20/18 21:57 Dose: 10 mg Morphine Sulfate (Ms Contin -) 15 mg PO BID [facility] Last Admin: 07/21/18 09:39 Dose: 15 mg Pantoprazole Sodium (Protonix -) 40 mg PO DAILY [facility] Last Admin: 07/21/18 09:39 Dose: 40 mg Ramipril (Altace -) 10 mg PO DAILY [facility] Last Admin: 07/21/18 09:40 Dose: 10 mg Rosuvastatin Calcium (Crestor -) 10 mg PO DAILY [facility] Last Admin: 07/21/18 09:40 Dose: 10 mg Tamsulosin HCl (Flomax -) 0.4 mg PO DAILY@0830 [facility] Last Admin: 07/21/18 08:35 Dose: 0.4 mg GENERAL: Mildly tacypneic at rest and speaking. HEENT: AT/NC. EOMI. DORENE. Moist mucus membranes. NECK: Trachea midline, Tracheostomy in place. LUNGS: Bilateral expiratory wheeze and rhonchi HEART: Regular rate and rhythm, S1, S2 without murmur, rub or gallop. ABDOMEN: Obese. Soft, NT/ND. +Bs in all 4Q's. No masses noted. EXTREMITIES: 2+ pulses, warm, well-perfused, no edema. NEUROLOGICAL: Non-focal. PSYCH: Normal mood, normal affect. SKIN: Warm, dry, normal turgor, no rashes or lesions noted Laboratory Results - last 24 hr 07/20/18 07/20/18 07/20/18 16:50 18:00 21:49 WBC RBC Hgb Hct MCV MCH MCHC RDW Plt Count MPV Sodium Potassium Chloride Carbon Dioxide Anion Gap BUN Creatinine Creat Clearance w eGFR POC Glucometer 319 436 Random Glucose Calcium Triglycerides Cholesterol Total LDL Cholesterol HDL Cholesterol Influenza A (Rapid) Negative Influenza B (Rapid) Negative 07/21/18 07/21/18 07/21/18 05:18 05:45 05:45 WBC 16.3 H RBC 4.16 Hgb 10.4 L Hct 33.2 L MCV 79.8 L MCH 25.0 L MCHC 31.3 L RDW 16.0 H Plt Count 360 MPV 7.6 Sodium 133 L Potassium 4.8 Chloride 100 Carbon Dioxide 27 Anion Gap 7 L BUN 41 H Creatinine 1.7 H Creat Clearance w eGFR 40.78 POC Glucometer 381 Random Glucose 316 H* Calcium 8.9 Triglycerides 89 Cholesterol 175 Total LDL Cholesterol 81 HDL Cholesterol 74 H Influenza A (Rapid) Influenza B (Rapid) 07/21/18 10:55 WBC RBC Hgb Hct MCV MCH MCHC RDW Plt Count MPV Sodium Potassium Chloride Carbon Dioxide Anion Gap BUN Creatinine Creat Clearance w eGFR POC Glucometer 281 Random Glucose Calcium Triglycerides Cholesterol Total LDL Cholesterol HDL Cholesterol Influenza A (Rapid) Influenza B (Rapid) Problem List - Problems (1) COPD exacerbation Code(s): J44.1 - CHRONIC OBSTRUCTIVE PULMONARY DISEASE W (ACUTE) EXACERBATION (2) Chest pain Code(s): R07.9 - CHEST PAIN, UNSPECIFIED (3) ASHD (arteriosclerotic heart disease) Code(s): I25.10 - ATHSCL HEART DISEASE OF [place] CORONARY ARTERY W/O ANG PCTRS (4) Asthma exacerbation Code(s): J45.901 - UNSPECIFIED ASTHMA WITH (ACUTE) EXACERBATION (5) CHF (congestive heart failure) Code(s): I50.9 - HEART FAILURE, UNSPECIFIED (6) 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 Code(s): E10.8 - TYPE 1 DIABETES MELLITUS WITH UNSPECIFIED COMPLICATIONS (7) Coronary artery disease involving autologous artery coronary bypass graft Code(s): I25.810 - ATHEROSCLEROSIS OF CABG W/O ANGINA PECTORIS (8) H/O cervical spine surgery Code(s): Z98.89 - OTHER SPECIFIED POSTPROCEDURAL STATES * DO NOT USE * (9) H/O heart artery stent Code(s): Z95.5 - PRESENCE OF CORONARY ANGIOPLASTY IMPLANT AND GRAFT (10) Hx of CABG Code(s): Z95.1 - PRESENCE OF AORTOCORONARY BYPASS GRAFT (11) Hyperlipidemia Code(s): E78.5 - HYPERLIPIDEMIA, UNSPECIFIED (12) Hypertension Code(s): I10 - ESSENTIAL (PRIMARY) HYPERTENSION Qualifiers: Hypertension type: essential hypertension Qualified Code(s): I10 - Essential (primary) hypertension (13) Pancreatitis Code(s): K85.9 - ACUTE PANCREATITIS, UNSPECIFIED * DO NOT USE * Qualifiers: Chronicity: acute Pancreatitis type: other (14) Renal insufficiency Code(s): N28.9 - DISORDER OF KIDNEY AND URETER, UNSPECIFIED IMP SEVERE CHRONIC PERSISTENT ASTHMA WITH ACUTE EXACERBATION ASHD S/P CABG,S/P STENTS DM HTN CHRONIC PAIN H/O PANCREATITIS,PANCREATIC CYST OSAS S/P TRACH BPH RML NODULE STABLE ACUTE ON CHRONIC KIDNEY DISEASE PLAN IV STEROIDS INHALED BRONCHODILATORS STANDING AND PRN O2 NEEDED FOLLOW SPUTUM C+S MONITOR PEAK FLOW MONITOR BLOOD SUGARS WHILE ON SYSTEMIC STEROIDS DR REYES
[2018-07-21] MEDS ORDERED: amLODIPine BESYLATE 5 MG TABLET (FP) PO ONE (12:45)
--- NOTE | 2018-07-21 13:02 | PN ---
Teaching Attending Note Name of Resident: Omaira Hoyt ATTENDING PHYSICIAN STATEMENT I saw and evaluated the patient. I reviewed the resident's note and discussed the case with the resident. I agree with the resident's findings and plan as documented. SUBJECTIVE: No fever or chills. cough and SOB has improved. no cp . no abd pain. constipated. has LE edema , . requesting Iv morphine for back pain. OBJECTIVE: NAD CV: RRR Lungs: prolonged exp phase, scattered wheezing, and cough. decreased breath soundsa t bases Ext : 1 + LE edema R > L ASSESSMENT AND PLAN: 62 y/o man with h/o CAD, s/p CABG and Stents, HTN,severe persistent asthma HLP , back pain, SBO, chronic pancreatitis, BPH, H pylori , GRACIE s/p trach , and other medical problems who presented with cough, CP ,and SOB 1- Acute asthma exacerbation : - cont steorids - Cont Nebs - Cont symbicort - Peek flow pre-post 400-397 2- Acute Diastolic CHF. - cont IVlasix , pending Card Recs - monitor renal function . Stable on diuresis - cont BP control 3- Uncontrolled DM., - cont insulin pump, pending endocrine Recs. - will call again 4- LOVE : could be form heart failure or form CKD . diurese and monitor - will request last Cr/BUN from PCP 5- HTN: Norvasc 10 ( increased ) and ramipril with close monitoring of his renal function 6- Back pain: pt requests Iv morphine. will not give. he also requests oxycodone and Nucyanta - patient was looked up on [facility]STOP: #: [id number] - He picked up percocet 10-325 , 180 pills for 15 days on 03/26/18. Dilaudid 4 mg q 4h, for 16 days on 05/05/18. Morphine ER 15 mg BID for 30 days on . Nucyanta ER, 150 mg BID fro 30 days on 03/26/18. - we will call his pharmacy to confirm last molded goods spot picker as recent prescriptions might not show up on ISTOP. - will plan further after info is gathered. dispo : [facility]
[2018-07-21] MEDS ORDERED: SENNOSIDES/DOCUSATE COMBO (SENNA PLUS) TABLET (UD) PO PRN (13:20)
[2018-07-21] MEDS ORDERED: POLYETHYLENE GLYCOL 3350 119 GM BTL PO PRN (13:21)
[2018-07-21] MEDS ORDERED: SENNOSIDES 8.6MG TABLET (FP) PO ONE (13:21)
[2018-07-21] MEDS ORDERED: guaiFENesin 200 MG/10 ML 10 ML UNIT-DOSE CUPS PO ONE (15:59)
--- NOTE | 2018-07-21 18:31 | PN ---
Physical Exam: SUBJECTIVE: Patient seen and examined at bedside. No acute events overnight. Pt feels much better. Breathing improved, admits to some chest pain but is improved since yesterday. OBJECTIVE: Vital Signs Temperature 98.5 F 07/21/18 14:52 Pulse Rate 100 H 07/21/18 14:52 Respiratory Rate 20 07/21/18 14:52 Blood Pressure 134/75 07/21/18 14:52 O2 Sat by Pulse Oximetry (%) 95 07/21/18 09:00 GENERAL: AAOx3. NAD. Comfortable. Speaks in complete sentences. HEENT: AT/NC. EOMI. DORENE. Moist mucus membranes. NECK: Trachea midline, full range of motion, supple. Tracheostomy in place. LUNGS: B/l wheezes. Prolonged expiratory phase. Decreased breath sounds in b/l lower lung bases. HEART: Regular rate and rhythm, S1, S2 without murmur, rub or gallop. ABDOMEN: Obese. Soft, NT/ND. +Bs in all 4Q's. No masses noted. EXTREMITIES: 2+ pulses, warm, well-perfused, no edema. NEUROLOGICAL: Cranial nerves II through XII grossly intact. Normal speech. Follows commands. PSYCH: Normal mood, normal affect. SKIN: Warm, dry, normal turgor, no rashes or lesions noted CBCD WBC 16.3 K/mm3 (4.0-10.0) H 07/21/18 05:45 RBC 4.16 M/mm3 (4.00-5.60) 07/21/18 05:45 Hgb 10.4 GM/dL (11.7-16.9) L 07/21/18 05:45 Hct 33.2 % (35.4-49) L 07/21/18 05:45 MCV 79.8 fl (80-96) L 07/21/18 05:45 MCHC 31.3 g/dl (32.0-35.9) L 07/21/18 05:45 RDW 16.0 % (11.9-15.9) H 07/21/18 05:45 Plt Count 360 K/MM3 (134-434) 07/21/18 05:45 MPV 7.6 fl (7.5-11.1) 07/21/18 05:45 CMP Sodium 133 mmol/L (136-145) L 07/21/18 05:45 Potassium 4.8 mmol/L (3.5-5.1) 07/21/18 05:45 Chloride 100 mmol/L (98-107) 07/21/18 05:45 Carbon Dioxide 27 mmol/L (21-32) 07/21/18 05:45 Anion Gap 7 MMOL/L (8-16) L 07/21/18 05:45 BUN 41 mg/dL (7-18) H 07/21/18 05:45 Creatinine 1.7 mg/dL (0.55-1.3) H 07/21/18 05:45 Creat Clearance w eGFR 40.78 (>60) 07/21/18 05:45 Calcium 8.9 mg/dL (8.5-10.1) 07/21/18 05:45 Total Bilirubin 0.5 mg/dL (0.2-1) 07/20/18 05:30 AST 26 U/L (15-37) 07/20/18 05:30 ALT 52 U/L (13-61) 07/20/18 05:30 Alkaline Phosphatase 163 U/L (45-117) H 07/20/18 05:30 Total Protein 7.4 g/dl (6.4-8.2) 07/20/18 05:30 Albumin 3.8 g/dl (3.4-5.0) 07/20/18 05:30 Active Medications Albuterol Sulfate (Ventolin 0.083% Nebulizer Soln -) 1 amp NEB Q4H PRN PRN Reason: SHORT OF BREATH/WHEEZING Albuterol/Ipratropium (Duoneb -) 1 amp NEB RQID REPLACED BY [facility] Last Admin: 07/21/18 16:17 Dose: 1 amp Amitriptyline HCl (Elavil -) 75 mg PO DAILY [facility] BY [facility] Last Admin: 07/21/18 09:40 Dose: 75 mg Amlodipine Besylate (Norvasc -) 10 mg PO DAILY [facility] BY [facility] Aspirin (Ecotrin -) 81 mg PO DAILY [facility] Last Admin: 07/21/18 09:39 Dose: 81 mg Budesonide/Formoterol Fumarate (Symbicort 160/4.5mcg -) 1 puff IH DAILY [facility]PLACED BY [facility] Last Admin: 07/21/18 09:38 Dose: 1 puff Clopidogrel Bisulfate (Plavix -) 75 mg PO DAILY [facility] BY [facility] Last Admin: 07/21/18 09:39 Dose: 75 mg Ezetimibe (Zetia -) 10 mg PO HS [facility] BY [facility] Last Admin: 07/20/18 21:57 Dose: 10 mg Finasteride (Proscar -) 5 mg PO DAILY [facility] Last Admin: 07/21/18 09:40 Dose: 5 mg Furosemide (Lasix Injection -) 40 mg IVPUSH DAILY [facility] BY [facility] Last Admin: 07/21/18 09:38 Dose: 40 mg Gabapentin (Neurontin -) 800 mg PO TID REPLACED BY [facility] Last Admin: 07/21/18 13:04 Dose: 800 mg Heparin Sodium (Porcine) (Heparin -) 5,000 unit SQ TID REPLACED BY [facility] Last Admin: 07/21/18 13:04 Dose: 5,000 unit Hydromorphone HCl (Dilaudid -) 4 mg PO Q4H PRN PRN Reason: PAIN LEVEL 6-10 Last Admin: 07/21/18 15:55 Dose: 4 mg Insulin Aspart (Novolog Vial Sliding Scale -) [facility]; Protocol Last Admin: 07/21/18 18:05 Dose: 8 unit Insulin Detemir (Levemir Vial) 20 units SQ HS REPLACED BY [facility] Methylprednisolone Sodium Succinate (Solu-Medrol -) 40 mg IVPUSH Q6H-IV REPLACED BY [facility] Last Admin: 07/21/18 15:56 Dose: 40 mg Montelukast Sodium (Singulair -) 10 mg PO [facility] Last Admin: 07/20/18 21:57 Dose: 10 mg Morphine Sulfate (Ms Contin -) 15 mg PO BID REPLACED BY [facility] Last Admin: 07/21/18 09:39 Dose: 15 mg Pantoprazole Sodium (Protonix -) 40 mg PO DAILY REPLACED BY [facility] Last Admin: 07/21/18 09:39 Dose: 40 mg Polyethylene Glycol (Miralax (For Daily Use) -) 17 gm PO DAILY PRN PRN Reason: CONSTIPATION Ramipril (Altace -) 10 mg PO DAILY REPLACED BY [facility] Last Admin: 07/21/18 09:40 Dose: 10 mg Rosuvastatin Calcium (Crestor -) 10 mg PO DAILY [facility] BY [facility] Last Admin: 07/21/18 09:40 Dose: 10 mg Senna/Docusate Sodium (Pericolace -) 2 tablet PO HS PRN PRN Reason: CONSTIPATION Tamsulosin HCl (Flomax -) 0.4 mg PO DAILY@0830 REPLACED BY [facility] Last Admin: 07/21/18 08:35 Dose: 0.4 mg IMAGING: * RLE duplex: No evid of DVT * Head CT: Mild nonspecific volume loss. No evid of IC pathology * CXR: Cardiomegaly. No acute disease. * Echo: Mild concentric LVH. LVEF normal. LV wall motion normal. Mild MR. Insufficient TR detected to calculate RV systolic pressure. LV filling pattern normal for age. * Holter (07/2016): NSR with occ PVCs and APCs, 3 short runs of SVTs * Stress (07/2016) Small mod size inferior scar with periinfarct ischemia, LVEF 45% with inferior hypokinesis * ECHO (12/2017): Mild conc LVH, LVEF nl (60-65%), RV-nl size and fn, LA mildly dilated, trace to mild MR, trace to mild TR, Insuff TR to calculateRVSP, trace pulm valvular regurg, aortic root is nl size, no pleural effusion, mild to mod mitral annular calcification. * EKG (07/19/18):101bpm, no SAURAV/STD, nl axis, meets adrián criteria for LVH, QTC- 461 ASSESSMENT/PLAN: 62 year old obese male with signif PMHx of CAD, [place], CABG; s/p coronary stents x 6 (most recently 12/2015),HTN, HLD, chronic pancreatitis, chronic back pain , SBO, incarcerated hernia s/p repair x2 (September 2017), H.Pylori, BPH, COPD, bronchial asthma, tracheostomy in place (unplugs when sleeping for sleep apnea) , anxiety presenting for generalized chronic body pains and cough. #Acute Asthma exacerbation -Solumedrol 40 mg IVP Q6H -Duonebs QID -Symbicort -Pulm recs appreciated -Sputum gram stain +GPC, +GPB, culture pending #Acute CHF exacerbation w/ preserved EF -Lasix 40 mg IVP QD -Ramipril 10 mg PO QD -Per cardio, increase Amlodipine to 10 mg PO QD; november d/c tele #IDDM; currently on insulin pump -F/U endo recs -BGM/ISS ACHS, cont to monitor #Generalized body pains/chronic pancreatitis -QTc-461 -Percocet 5-325 Q6H for pain -Pt previously requesting Dilaudid and Morphine as it has been prescribed for him in the past, however, confirmed with pharmacy that he is no longer being prescribed those meds. Will order Percocet. -ISTOP: #: [id number]; Pt has previously picked up Rx for percocet 10-325 , 180 pills for 15 days on 03/26/18. Dilaudid 4 mg q 4h, for 16 days on 05/05/18. Morphine ER 15 mg BID for 30 days on 05/05/18. Nucyanta ER, 150 mg BID fro 30 days on 03/26/18. #LOVE on possible CKD; Per PCP, baseline Cr is 1.17 (on 07/2016) -Cont to trend while on diuretic. If Cr worsens, november d/c Lasix #HTN Cont home meds: -Increase to Amlodipine 10 mg PO QD per cardio recs -Ramipril 10 mg PO QD -Lasix 40 mg IVP QD #Atypical chest pain -Pt described pain within context of generalized pain -EKG- no SAURAV/STD, QTC 461 (on opiates), Trops negative x 2 -Per cardio, november d/c tele #HLD Cont home med: -Rosuvastatin 10 mg PO QD -Zetia 10 mg PO HS #CAD/[place] s/p CABG and s/p coronary stents x 6 (most recently 12/2015), -Cardio recs appreciated -Echo ordered Cont home med(s): -Aspirin 81 mg PO QD -Plavix 75 mg PO QD #BPH Cont home med(s): -Flomax 0.4 mg PO QD -Proscara 5 mg PO QD #GRACIE -tracheostomy in place (unplugs when sleeping for sleep apnea) -Pt did not tolerate CPAP -Follows Dr Foley -Monitor #FEN -No IV fluids -Monitor lytes -Diabetic/Sodium controlled diet #PPx DVT: Heparin sq GI: Protonix 40 mg PO QD #Dispo -transfer to [facility]-surg Visit type - Emergency Visit Emergency Visit: Yes ED Registration Date: 07/20/18 Care time: The patient presented to the Emergency Department on the above date and was hospitalized for further evaluation of their emergent condition. - New Patient This patient is new to me today: No - Critical Care Critical Care patient: No
[2018-07-21] MEDS: ACETAMINOPHEN 325 MG TABLET (FP) PO SCH (18:51)
[2018-07-21] MEDS: oxyCODONE HCL 5 MG TABLET PO SCH (18:51)
[2018-07-21] MEDS ORDERED: oxyCODONE HCL 5 MG TABLET PO ONE (21:00)
[2018-07-21] MEDS ORDERED: ACETAMINOPHEN 325 MG TABLET (FP) PO ONE (21:00)
[2018-07-21] MEDS: MONTELUKAST NA 10 MG TABLET PO SCH (21:31)
[2018-07-21] MEDS: EZETIMIBE 10 MG TABLET (FP) PO SCH (21:31)
[2018-07-21] MEDS ORDERED: INSULIN (LEVEMIR) 100 UNITS/ML UNITS SQ SCH (22:00)
[2018-07-22] MEDS: ACETAMINOPHEN 325 MG TABLET (FP) PO SCH ×4 (00:35→17:54)
[2018-07-22] MEDS: oxyCODONE HCL 5 MG TABLET PO SCH ×4 (00:35→17:53)
[2018-07-22] MEDS ORDERED: INSULIN (NOVOLOG) ASPART 100 UNITS/ML 10ML VIAL SQ ONE ×5 (00:52→14:57)
[2018-07-22] MEDS: methylPREDNISolone NA SUCC 40 MG/1 ML VIAL IVPUSH SCH ×2 (03:30→08:21)
[2018-07-22] MEDS: HEPARIN NA (PORCINE) 5,000 UNITS/ML 1ML VIAL SQ SCH ×3 (06:08→22:18)
[2018-07-22] MEDS: GABAPENTIN 400 MG CAPSULE (FP) PO SCH ×3 (06:08→22:18)
[2018-07-22 06:52] LABS: HEMATOCRIT 33.3 % (35.4-49); HEMOGLOBIN 10.6 GM/dL (11.7-16.9); MCH 25.5 pg (25.7-33.7); MEAN CELL VOLUME 79.9 fl (80-96); MEAN PLT VOLUME 7.5 fl (7.5-11.1); PLATELET COUNT 338 K/MM3 (134-434); RBC 4.16 M/mm3 (4.00-5.60); RDW 15.9 % (11.9-15.9); WHITE BLOOD COUNT 18.8 K/mm3 (4.0-10.0)
[2018-07-22 07:26] LABS: ANION GAP 10 MMOL/L (8-16); BLOOD UREA NITROGEN 53 mg/dL (7-18); CALCIUM 8.6 mg/dL (8.5-10.1); CHLORIDE 100 mmol/L (98-107); CO2 24 mmol/L (21-32); CREATININE 1.9 mg/dL (0.55-1.3); POTASSIUM 4.3 mmol/L (3.5-5.1); SODIUM 134 mmol/L (136-145)
[2018-07-22] MEDS: ALBUTEROL SO4 2.5/IPRATROPIUM 0.5 INH SOL 3 ML VIAL.NEB. NEB SCH ×4 (07:53→20:54)
[2018-07-22] MEDS: TAMSULOSIN HCL 0.4 MG CAP PO SCH (08:21)
[2018-07-22 08:29] LABS: GLUCOSE,RANDOM 396 mg/dL (74-106)
[2018-07-22] MEDS: RAMIPRIL 5 MG CAPSULE (FP) PO SCH (09:41)
[2018-07-22] MEDS: ROSUVASTATIN CA 10 MG TABLET (FP) PO SCH ×2 (09:41→22:18)
[2018-07-22] MEDS: CLOPIDOGREL BISULFATE 75 MG TABLET (FP) PO SCH (09:41)
[2018-07-22] MEDS: BUDESONIDE/FORMETEROL FUMARATE 160/4.5 mcg INHALER IH SCH ×2 (09:41→23:17)
[2018-07-22] MEDS: FUROSEMIDE 40 MG/4 ML INJECTABLE VIAL IVPUSH SCH (09:41)
[2018-07-22] MEDS: AMITRIPTYLINE HCL 75 MG TABLET PO SCH (09:42)
[2018-07-22] MEDS: PANTOPRAZOLE 40 MG TABLET (FP) PO SCH (09:42)
[2018-07-22] MEDS: ASPIRIN COATED 81 MG TABLET.EC PO SCH (09:42)
[2018-07-22] MEDS: FINASTERIDE 5 MG TABLET (FP) PO SCH (09:42)
--- NOTE | 2018-07-22 09:59 | PN ---
Physical Exam: SUBJECTIVE: Patient seen and examined at bedside. No acute events overnight. Pt' s chest pressure and sob is unchanged since yesterday. Still has cough. Denies n/v, f/c, abd pain, urinary/bowel symptoms. OBJECTIVE: Vital Signs Temperature 97.5 F L 07/22/18 10:00 Pulse Rate 105 H 07/22/18 10:00 Respiratory Rate 20 07/22/18 10:00 Blood Pressure 151/80 07/22/18 10:00 O2 Sat by Pulse Oximetry (%) 96 07/22/18 09:00 GENERAL: AAOx3. NAD. Comfortable. Speaks in complete sentences. HEENT: AT/NC. EOMI. DORENE. Moist mucus membranes. NECK: Trachea midline, full range of motion, supple. Tracheostomy in place. LUNGS: Diffuse b/l wheezes. Prolonged expiratory phase. Decreased breath sounds in b/l lower lung bases. HEART: Regular rate and rhythm, S1, S2 without murmur, rub or gallop. ABDOMEN: Obese. Soft, NT/ND. +Bs in all 4Q's. No masses noted. EXTREMITIES: 2+ pulses, warm, well-perfused, no edema. NEUROLOGICAL: Cranial nerves II through XII grossly intact. Normal speech. Follows commands. PSYCH: Normal mood, normal affect. SKIN: Warm, dry, normal turgor, no rashes or lesions noted CBCD WBC 18.8 K/mm3 (4.0-10.0) H 07/22/18 05:30 RBC 4.16 M/mm3 (4.00-5.60) 07/22/18 05:30 Hgb 10.6 GM/dL (11.7-16.9) L 07/22/18 05:30 Hct 33.3 % (35.4-49) L 07/22/18 05:30 MCV 79.9 fl (80-96) L 07/22/18 05:30 MCHC 32.0 g/dl (32.0-35.9) 07/22/18 05:30 RDW 15.9 % (11.9-15.9) 07/22/18 05:30 Plt Count 338 K/MM3 (134-434) 07/22/18 05:30 MPV 7.5 fl (7.5-11.1) 07/22/18 05:30 CMP Sodium 134 mmol/L (136-145) L 07/22/18 05:30 Potassium 4.3 mmol/L (3.5-5.1) 07/22/18 05:30 Chloride 100 mmol/L (98-107) 07/22/18 05:30 Carbon Dioxide 24 mmol/L (21-32) 07/22/18 05:30 Anion Gap 10 MMOL/L (8-16) 07/22/18 05:30 BUN 53 mg/dL (7-18) H 07/22/18 05:30 Creatinine 1.9 mg/dL (0.55-1.3) H 07/22/18 05:30 Creat Clearance w eGFR 35.87 (>60) 07/22/18 05:30 Calcium 8.6 mg/dL (8.5-10.1) 07/22/18 05:30 Total Bilirubin 0.5 mg/dL (0.2-1) 07/20/18 05:30 AST 26 U/L (15-37) 07/20/18 05:30 ALT 52 U/L (13-61) 07/20/18 05:30 Alkaline Phosphatase 163 U/L (45-117) H 07/20/18 05:30 Total Protein 7.4 g/dl (6.4-8.2) 07/20/18 05:30 Albumin 3.8 g/dl (3.4-5.0) 07/20/18 05:30 Active Medications Acetaminophen (Tylenol -) 325 mg PO Q6HPO [facility] Last Admin: 07/22/18 06:08 Dose: 325 mg Albuterol Sulfate (Ventolin 0.083% Nebulizer Soln -) 1 amp NEB Q4H PRN PRN Reason: SHORT OF BREATH/WHEEZING Albuterol/Ipratropium (Duoneb -) 1 amp NEB RQID [facility] Amitriptyline HCl (Elavil -) 75 mg PO DAILY [facility] Amlodipine Besylate (Norvasc -) 10 mg PO DAILY [facility] Aspirin (Ecotrin -) 81 mg PO DAILY [facility] Budesonide/Formoterol Fumarate (Symbicort 160/4.5mcg -) 2 puff IH BID [facility] Clopidogrel Bisulfate (Plavix -) 75 mg PO DAILY [facility] Ezetimibe (Zetia -) 10 mg PO HS [facility] Finasteride (Proscar -) 5 mg PO DAILY [facility] Furosemide (Lasix Injection -) 40 mg IVPUSH DAILY [facility] Gabapentin (Neurontin -) 800 mg PO TID [facility] Heparin Sodium (Porcine) (Heparin -) 5,000 unit SQ TID [facility] Insulin Aspart (Novolog Vial Sliding Scale -) 1 vial SQ TIDAC [facility]; Protocol Last Admin: 07/21/18 18:05 Dose: 8 unit Insulin Detemir (Levemir Vial) 20 units SQ BID [facility] Methylprednisolone Sodium Succinate (Solu-Medrol -) 40 mg IVPUSH Q6H-IV [facility] Montelukast Sodium (Singulair -) 10 mg PO HS [facility] Oxycodone HCl (Roxicodone -) 5 mg PO Q6HPO [facility] Last Admin: 07/22/18 06:08 Dose: 5 mg Pantoprazole Sodium (Protonix -) 40 mg PO DAILY [facility] Polyethylene Glycol (Miralax (For Daily Use) -) 17 gm PO DAILY PRN PRN Reason: CONSTIPATION Ramipril (Altace -) 10 mg PO DAILY [facility] Rosuvastatin Calcium (Crestor -) 10 mg PO HS [facility] Senna/Docusate Sodium (Pericolace -) 2 tablet PO HS PRN PRN Reason: CONSTIPATION Tamsulosin HCl (Flomax -) 0.4 mg PO DAILY@0830 [facility] IMAGING: * RLE duplex: No evid of DVT * Head CT: Mild nonspecific volume loss. No evid of IC pathology * CXR: Cardiomegaly. No acute disease. * Echo: Mild concentric LVH. LVEF normal. LV wall motion normal. Mild MR. Insufficient TR detected to calculate RV systolic pressure. LV filling pattern normal for age. * Holter (07/2016): NSR with occ PVCs and APCs, 3 short runs of SVTs * Stress (07/2016) Small mod size inferior scar with periinfarct ischemia, LVEF 45% with inferior hypokinesis * ECHO (12/2017): Mild conc LVH, LVEF nl (60-65%), RV-nl size and fn, LA mildly dilated, trace to mild MR, trace to mild TR, Insuff TR to calculateRVSP, trace pulm valvular regurg, aortic root is nl size, no pleural effusion, mild to mod mitral annular calcification. * EKG (07/19/18):101bpm, no SAURAV/STD, nl axis, meets adrián criteria for LVH, QTC- 461 ASSESSMENT/PLAN: 62 year old obese male with signif PMHx of CAD, [place], CABG; s/p coronary stents x 6 (most recently 12/2015),HTN, HLD, chronic pancreatitis, chronic back pain , SBO, incarcerated hernia s/p repair x2 (September 2017), H.Pylori, BPH, COPD, bronchial asthma, tracheostomy in place (unplugs when sleeping for sleep apnea) , anxiety presenting for generalized chronic body pains and cough. #Acute Asthma exacerbation -Solumedrol 40 mg IVP Q6H -Duonebs QID -Symbicort -Pulm recs appreciated; monitor peak flow -Sputum gram stain +GPC, +GPB, culture pending #Acute CHF exacerbation w/ preserved EF -Lasix d/c'd as pt's Cr worsening (admission 1.4, now 1.9); trend BMP -Ramipril 10 mg PO QD -Per cardio, increase Amlodipine to 10 mg PO QD; november d/c tele #IDDM -F/U endo recs -BGM/ISS TIDAC, cont to monitor -Levemir 20U BID #Generalized body pains/chronic pancreatitis -QTc-461 -Percocet 5-325 Q6H for pain -Pt previously requesting Dilaudid and Morphine as it has been prescribed for him in the past, however, confirmed with pharmacy that he is no longer being prescribed those meds. Will order Percocet. -ISTOP: #: [id number]; Pt has previously picked up Rx for percocet 10-325 , 180 pills for 15 days on 03/26/18. Dilaudid 4 mg q 4h, for 16 days on 05/05/18. Morphine ER 15 mg BID for 30 days on 05/05/18. Nucyanta ER, 150 mg BID fro 30 days on 03/26/18. -Miralax/Senna for constipation #LOVE on possible CKD; Per PCP, baseline Cr is 1.17 (on 07/2016); Cr 1.9 today. -trend BMP, d/c Lasix #HTN Cont home meds: -Increase to Amlodipine 10 mg PO QD per cardio recs -Ramipril 10 mg PO QD -Lasix d/c'd #Atypical chest pain -Pt described pain within context of generalized pain -EKG- no SAURAV/STD, QTC 461 (on opiates), Trops negative x 2 -Per cardio, november d/c tele #HLD Cont home med: -Rosuvastatin 10 mg PO QD -Zetia 10 mg PO HS #CAD/[place] s/p CABG and s/p coronary stents x 6 (most recently 12/2015), -Cardio recs appreciated -Echo ordered Cont home med(s): -Aspirin 81 mg PO QD -Plavix 75 mg PO QD #BPH Cont home med(s): -Flomax 0.4 mg PO QD -Proscara 5 mg PO QD #GRACIE -tracheostomy in place (unplugs when sleeping for sleep apnea) -Pt did not tolerate CPAP -Follows Dr Foley -Monitor #FEN -No IV fluids -Monitor lytes -Diabetic/Sodium controlled diet #PPx DVT: Heparin sq GI: Protonix 40 mg PO QD #Dispo -cont to monitor on med-surg Visit type - Emergency Visit Emergency Visit: Yes ED Registration Date: 07/20/18 Care time: The patient presented to the Emergency Department on the above date and was hospitalized for further evaluation of their emergent condition. - New Patient This patient is new to me today: No - Critical Care Critical Care patient: No
[2018-07-22] MEDS ORDERED: amLODIPine BESYLATE 10 MG TABLET (FP) PO SCH (10:00)
[2018-07-22] MEDS ORDERED: ALBUTEROL SO4 0.083% IH SOL 2.5 MG/3 ML VIAL.NEB. NEB PRN (10:47)
[2018-07-22] MEDS ORDERED: POLYETHYLENE GLYCOL 3350 119 GM BTL PO PRN (10:47)
--- NOTE | 2018-07-22 10:56 | PN ---
Progress Note, Physician History of Present Illness: PULMONARY NO CHANGE,DYSPNEIC,+ COUGH,CONGESTED - Current Medication List Current Medications: Active Medications Acetaminophen (Tylenol -) 325 mg PO Q6HPO [facility] Last Admin: 07/22/18 06:08 Dose: 325 mg Albuterol Sulfate (Ventolin 0.083% Nebulizer Soln -) 1 amp NEB Q4H PRN PRN Reason: SHORT OF BREATH/WHEEZING Albuterol/Ipratropium (Duoneb -) 1 amp NEB RQID [facility] Amitriptyline HCl (Elavil -) 75 mg PO DAILY [facility] Amlodipine Besylate (Norvasc -) 10 mg PO DAILY [facility] Aspirin (Ecotrin -) 81 mg PO DAILY [facility] Budesonide/Formoterol Fumarate (Symbicort 160/4.5mcg -) 1 puff IH DAILY [facility] Clopidogrel Bisulfate (Plavix -) 75 mg PO DAILY [facility] Ezetimibe (Zetia -) 10 mg PO HS [facility] Finasteride (Proscar -) 5 mg PO DAILY [facility] Furosemide (Lasix Injection -) 40 mg IVPUSH DAILY [facility] Gabapentin (Neurontin -) 800 mg PO TID [facility] Heparin Sodium (Porcine) (Heparin -) 5,000 unit SQ TID [facility] Insulin Aspart (Novolog Vial Sliding Scale -) 1 vial SQ TIDAC [facility]; Protocol Last Admin: 07/21/18 18:05 Dose: 8 unit Insulin Detemir (Levemir Vial) 20 units SQ HS [facility] Last Admin: 07/21/18 21:31 Dose: 20 units Methylprednisolone Sodium Succinate (Solu-Medrol -) 40 mg IVPUSH Q6H-IV [facility] Montelukast Sodium (Singulair -) 10 mg PO HS [facility] Oxycodone HCl (Roxicodone -) 5 mg PO Q6HPO [facility] Last Admin: 07/22/18 06:08 Dose: 5 mg Pantoprazole Sodium (Protonix -) 40 mg PO DAILY [facility] Polyethylene Glycol (Miralax (For Daily Use) -) 17 gm PO DAILY PRN PRN Reason: CONSTIPATION Ramipril (Altace -) 10 mg PO DAILY [facility] Rosuvastatin Calcium (Crestor -) 10 mg PO DAILY [facility] Senna/Docusate Sodium (Pericolace -) 2 tablet PO HS PRN PRN Reason: CONSTIPATION Tamsulosin HCl (Flomax -) 0.4 mg PO DAILY@0830 [facility] - Objective Vital Signs: Vital Signs Temperature 97.5 F L 07/22/18 10:00 Pulse Rate 105 H 07/22/18 10:00 Respiratory Rate 20 07/22/18 10:00 Blood Pressure 151/80 07/22/18 10:00 O2 Sat by Pulse Oximetry (%) 96 07/22/18 09:00 Constitutional: Yes: Well Nourished, Calm, Other (DYSPNEIC) Eyes: Yes: WNL HENT: Yes: WNL Neck: Yes: WNL Cardiovascular: Yes: Regular Rate and Rhythm, S1, S2 Respiratory: Yes: Wheezes (BILATERAL WHEEZES) Gastrointestinal: Yes: Normal Bowel Sounds, Soft Extremities: Yes: WNL Edema: No Labs: CBC, BMP 07/22/18 05:30 07/22/18 05:30 INR, PTT INR 0.99 (0.83-1.09) 07/19/18 14:19 Problem List - Problems (1) COPD exacerbation Code(s): J44.1 - CHRONIC OBSTRUCTIVE PULMONARY DISEASE W (ACUTE) EXACERBATION (2) Chest pain Code(s): R07.9 - CHEST PAIN, UNSPECIFIED (3) ASHD (arteriosclerotic heart disease) Code(s): I25.10 - ATHSCL HEART DISEASE OF [place] CORONARY ARTERY W/O ANG PCTRS (4) Asthma exacerbation Code(s): J45.901 - UNSPECIFIED ASTHMA WITH (ACUTE) EXACERBATION (5) CHF (congestive heart failure) Code(s): I50.9 - HEART FAILURE, UNSPECIFIED (6) 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 Code(s): E10.8 - TYPE 1 DIABETES MELLITUS WITH UNSPECIFIED COMPLICATIONS (7) Coronary artery disease involving autologous artery coronary bypass graft Code(s): I25.810 - ATHEROSCLEROSIS OF CABG W/O ANGINA PECTORIS (8) H/O cervical spine surgery Code(s): Z98.89 - OTHER SPECIFIED POSTPROCEDURAL STATES * DO NOT USE * (9) H/O heart artery stent Code(s): Z95.5 - PRESENCE OF CORONARY ANGIOPLASTY IMPLANT AND GRAFT (10) Hx of CABG Code(s): Z95.1 - PRESENCE OF AORTOCORONARY BYPASS GRAFT (11) Hyperlipidemia Code(s): E78.5 - HYPERLIPIDEMIA, UNSPECIFIED (12) Hypertension Code(s): I10 - ESSENTIAL (PRIMARY) HYPERTENSION Qualifiers: Hypertension type: essential hypertension Qualified Code(s): I10 - Essential (primary) hypertension (13) Pancreatitis Code(s): K85.9 - ACUTE PANCREATITIS, UNSPECIFIED * DO NOT USE * Qualifiers: Chronicity: acute Pancreatitis type: other (14) Renal insufficiency Code(s): N28.9 - DISORDER OF KIDNEY AND URETER, UNSPECIFIED Assessment/Plan IMP SEVERE CHRONIC PERSISTENT ASTHMA WITH ACUTE EXACERBATION ASHD S/P CABG,S/P STENTS DM HTN CHRONIC PAIN H/O PANCREATITIS,PANCREATIC CYST OSAS S/P TRACH BPH RML NODULE STABLE ACUTE ON CHRONIC KIDNEY DISEASE PLAN IV STEROIDS INHALED BRONCHODILATORS O2 NEEDED MONITOR PEAK FLOW MONITOR LYTES,RENAL FUNCTION,BLOOD SUGARS DR VANESSA Problem List - Problems (1) COPD exacerbation Code(s): J44.1 - CHRONIC OBSTRUCTIVE PULMONARY DISEASE W (ACUTE) EXACERBATION (2) Chest pain Code(s): R07.9 - CHEST PAIN, UNSPECIFIED (3) ASHD (arteriosclerotic heart disease) Code(s): I25.10 - ATHSCL HEART DISEASE OF [place] CORONARY ARTERY W/O ANG PCTRS (4) Asthma exacerbation Code(s): J45.901 - UNSPECIFIED ASTHMA WITH (ACUTE) EXACERBATION (5) CHF (congestive heart failure) Code(s): I50.9 - HEART FAILURE, UNSPECIFIED (6) 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 Code(s): E10.8 - TYPE 1 DIABETES MELLITUS WITH UNSPECIFIED COMPLICATIONS (7) Coronary artery disease involving autologous artery coronary bypass graft Code(s): I25.810 - ATHEROSCLEROSIS OF CABG W/O ANGINA PECTORIS (8) H/O cervical spine surgery Code(s): Z98.89 - OTHER SPECIFIED POSTPROCEDURAL STATES * DO NOT USE * (9) H/O heart artery stent Code(s): Z95.5 - PRESENCE OF CORONARY ANGIOPLASTY IMPLANT AND GRAFT (10) Hx of CABG Code(s): Z95.1 - PRESENCE OF AORTOCORONARY BYPASS GRAFT (11) Hyperlipidemia Code(s): E78.5 - HYPERLIPIDEMIA, UNSPECIFIED (12) Hypertension Code(s): I10 - ESSENTIAL (PRIMARY) HYPERTENSION Qualifiers: Hypertension type: essential hypertension Qualified Code(s): I10 - Essential (primary) hypertension (13) Pancreatitis Code(s): K85.9 - ACUTE PANCREATITIS, UNSPECIFIED * DO NOT USE * Qualifiers: Chronicity: acute Pancreatitis type: other (14) Renal insufficiency Code(s): N28.9 - DISORDER OF KIDNEY AND URETER, UNSPECIFIED
[2018-07-22] MEDS: INSULIN SLIDING SCALE (NOVOLOG) 1 VIAL SQ SCH ×4 (11:54→23:20)
[2018-07-22] MEDS ORDERED: INSULIN (LEVEMIR) 100 UNITS/ML UNITS SQ SCH (12:00)
[2018-07-22] MEDS ORDERED: methylPREDNISolone NA SUCC 40 MG/1 ML VIAL IVPUSH SCH (15:00)
[2018-07-22] MEDS ORDERED: INSULIN (LEVEMIR) 100 UNITS/ML UNITS SQ STA (17:46)
[2018-07-22] MEDS ORDERED: INSULIN SLIDING SCALE (NOVOLOG) 1 VIAL SQ SCH ×4 (17:49→22:00)
--- NOTE | 2018-07-22 19:40 | PN ---
Teaching Attending Note Name of Resident: Holly Todd ATTENDING PHYSICIAN STATEMENT I saw and evaluated the patient. I reviewed the resident's note and discussed the case with the resident. I agree with the resident's findings and plan as documented. SUBJECTIVE: No fever or chills . back pain OBJECTIVE: NAD CV: RRR Lungs: prolonged exp phase, scattered wheezing, and cough. decreased breath sounds at bases Ext : trace edema on legs . much improved from before ASSESSMENT AND PLAN: 62 y/o man with h/o CAD, s/p CABG and Stents, HTN,severe persistent asthma HLP , back pain, SBO, chronic pancreatitis, BPH, H pylori , GRACIE s/p trach , and other medical problems who presented with cough, CP ,and SOB 1- Acute asthma exacerbation : - decrease steroids to BID dosing as sugars are out of control - Cont Nebs - Cont symbicort - follow Peek flow 2- Acute Diastolic CHF. - hold lasix due to worsening renal function - cont BP control 3- Uncontrolled DM. empty pump. sugar was evleated , gave 20 units of levemir at noon. -now sugar is still high. received 14 units of SQ insulin and 20 of levemir - check stat BMP. repeat sugar in 30 min - increase levemir to 30 BID - decrease steroids - increase SSI - still not seen by Endo. residents tried to call 4- LOVE: hold diuresis 5- HTN: cont Norvasc and ramipril. if renal function worsens , will hold ramipril tomorrow 6- Back pain:oxycodone only. dispo : OC
[2018-07-22 21:52] LABS: ANION GAP 12 MMOL/L (8-16); BLOOD UREA NITROGEN 54 mg/dL (7-18); CALCIUM 8.8 mg/dL (8.5-10.1); CHLORIDE 100 mmol/L (98-107); CO2 22 mmol/L (21-32); CREATININE 2.1 mg/dL (0.55-1.3); POTASSIUM 4.5 mmol/L (3.5-5.1); SODIUM 134 mmol/L (136-145)
[2018-07-22 21:58] LABS: GLUCOSE,RANDOM 635 mg/dL (74-106)
[2018-07-22] MEDS ORDERED: SENNOSIDES/DOCUSATE COMBO (SENNA PLUS) TABLET (UD) PO PRN (22:00)
[2018-07-22] MEDS ORDERED: PT OWN MED DRAWER 7, Y5N ONE (22:11)
[2018-07-22] MEDS: INSULIN (LEVEMIR) 100 UNITS/ML UNITS SQ SCH (22:17)
[2018-07-22] MEDS: EZETIMIBE 10 MG TABLET (FP) PO SCH (22:18)
[2018-07-22] MEDS: MONTELUKAST NA 10 MG TABLET PO SCH (22:18)
--- NOTE | 2018-07-22 22:51 | CONSULT ---
Consult Consult Specialty:: endocrine Referred by:: dr.joseph gurrola Reason for Consultation:: diabetes mellitus hyperglycemia - History of Present Illness Chief Complaint: back pain/ high sugars History of Present Illness: 2 year old obese male with signif PMHx of CAD, MS, CABG; s/p coronary stents x 6 (most recently 12/2015),HTN, HLD, chronic pancreatitis, chronic back pain , SBO, incarcerated hernia s/p repair x2 (September 2017), H.Pylori, BPH, COPD, bronchial asthma, tracheostomy in place (unplugs when sleeping for sleep apnea) , anxiety presenting for generalized chronic body pains and cough. Pt has chronic pain from cervical/lumbar disc and diabetic neuropathy,unrelieved and requiring high dose pain meds for control of pain. has elevated sugars and weight gain.he denies nausea and vomiting,denies fever and chills - Past Medical History PLANNING CONSULTANT: Yes: Peripheral Neuropathy (s/p extensive cervical spine surgery post injury with leg weakness and poor balance: patient much improved post extensive physical therapy and now walks with a walker), Other (chronic pain syndrome with mulit-level spine disease managed by PM and his spine surgeon. Planned EMG/ NCVs studies and evaluation of motor weakness in process by treating neurologist Dr. Singh) Cardio/Vascular: Yes: CAD (Last stents placed x 2 last year per patient), CHF (s /p MS several years ago; s/p stenting. mild CHF in the past.), HTN, Hyperlipdemia, MS, Pulmonary Hypertension Pulmonary: Yes: Asthma, Sleep Apnea Gastrointestinal: Yes: Constipation, Pancreatitis (? history of chronic pancreatitis with episodes of acute pancreatitis), Other (FECAL INCONTINENCE SECONDARY TO OVERFLOW followed by Dr. Abdoulaye Wu, IPMN, PANCREATITIS . HAD EPISODE OF ISCHEMIC COLITIS LAST ADMISSION) Renal/: Yes: BPH Psych: Yes: Depression Musculoskeletal: Yes: Chronic low back pain (has back stimulator), Other ( CHRONIC NECK PAIN s/p Lumbar and Cervical fusion ) Endocrine: Yes: Diabetes Mellitus (has insulin pump) - Past Surgical History Past Surgical History: Yes: Breast Biopsy, Colonoscopy, Laminectomy, Stent (1 non eluting, 5 eluting) - Alcohol/Substance Use Hx Alcohol Use: No History of Substance Use: reports: None, Prescription (opiates for chronic pain post cervical spine surgery. 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 History of Recent Travel: No Home Medications - Allergies Allergies/Adverse Reactions: Allergies Allergy/AdvReac Type Severity Reaction Status Date / Time shellfish derived Allergy Severe Verified 08/18/17 13:42 Tetracyclines Allergy Severe Verified 08/18/17 13:42 - Home Medications Home Medications: Ambulatory Orders Albuterol Sulfate Inhaler - [Ventolin HFA Inhaler -] 1 - 2 inh PO Q4H PRN Arformoterol Tartrate [Brovana] 15 mcg IH ASDIR 08/18/17 Aspirin [Aspirin EC] 81 mg PO DAILY 08/18/17 Budesonide/Formeterol Fumarate [SYMBICORT 160/4.5mcg -] 1 inh PO DAILY 08/18/17 Clopidogrel Bisulfate [Plavix] 75 mg PO DAILY 08/18/17 Dexlansoprazole [Dexilant] 30 mg PO DAILY 08/18/17 Ezetimibe [Zetia -] 10 mg PO HS 08/18/17 Furosemide [Lasix] 40 mg PO DAILY 08/18/17 Insulin Pump Controller [Snap Insulin Pump Controller] 1 each ASDIR 08/18/17 Montelukast Sodium [Singulair] 10 mg PO DAILY 08/18/17 Rosuvastatin Calcium [Crestor] 10 mg PO DAILY 08/18/17 Tiotropium [place] [Spiriva] 1 puff IH DAILY 08/18/17 Amino Acids/Protein Hydrolys [Prosource No Carb Liquid Pkt] 30 ml PO BID@0800, 1730 packet 09/20/17 Amlodipine Besylate [Norvasc -] 5 mg PO DAILY tablet 09/20/17 Finasteride [Proscar -] 5 mg PO DAILY tablet 09/20/17 Lipase/Protease/Amylase [Stacy Hackett 36,000 Units Capsule] 1 cap PO TIDCM capsule. 09/20/17 Multivitamins [Multivit ([facility] Formulary)] 1 tab PO DAILY tab 09/20/17 Polyethylene Glycol 3350 [Miralax 119 gm Btl -] 17 gm PO BID bottle 09/20/17 Ramipril [Altace] 10 mg PO DAILY capsule 09/20/17 Tamsulosin HCl [Flomax -] 0.4 mg PO DAILY@0830 cap.er.24h 09/20/17 Amitriptyline HCl [Elavil -] 75 mg PO DAILY 03/30/18 Gabapentin 800 mg PO TID 03/30/18 HYDROmorphone [Dilaudid -] 4 mg PO Q4H 03/30/18 Mesalamine [Pentasa] 500 mg PO DAILY 03/30/18 Arformoterol Tartrate [Brovana -] 1 amp NEB RBID amp 04/08/18 Insulin (Novolog 70/30) [Novolog Mix 70/30 Vial -] 40 units SQ BIDAC units Morphine *Sr* [Ms Contin -] 15 mg PO BID tablet.sa MDD 2 04/08/18 predniSONE [Deltasone -] 40 mg PO DAILY 07/19/18 Family Disease History - Family Disease History Family Disease History: Diabetes: Mother ( 58: diabetic complications), CA: Father ( 49: asbestosis), Respiratory: Brother (bronchial asthma, DVT), Other: Mother, Sister (BCA), Son (2, healthy), Daughter (1, healthy) Review of Systems - Review of Systems Constitutional: reports: Lethargy, Weakness Eyes: reports: Blurred Vision HENT: reports: Difficult Swallowing Neck: reports: Pain on Movement, Stiffness Cardiovascular: reports: Edema, Shortness of Breath Respiratory: reports: Exercise Intolerance, Orthopnea, SOB, SOB on Exertion Gastrointestinal: reports: Bloating, Constipation Genitourinary: reports: No Symptoms Breasts: reports: No Symptoms Reported Musculoskeletal: reports: Extremity Pain, Joint Pain, Joint Swelling, Muscle Pain, Muscle Cramps, Muscle Weakness Endocrine: reports: Unexplained Weight Gain Psychiatric: reports: Anxiety, Depression, Panic Physical Exam Vital Signs: Vital Signs Temperature 97.5 F L 07/22/18 18:00 Pulse Rate 106 H 07/22/18 22:00 Respiratory Rate 20 07/22/18 22:00 Blood Pressure 148/80 07/22/18 22:00 O2 Sat by Pulse Oximetry (%) 96 07/22/18 09:00 Constitutional: Yes: Anxious, Other Eyes: Yes: EOM Intact HENT: Yes: Normocephalic Neck: Yes: Trachea Midline Cardiovascular: Yes: Regular Rate and Rhythm Respiratory: Yes: Orthopnea, Rhonchi, SOB, Tachypnea, Wheezes Gastrointestinal: Yes: Abdomen, Obese ...Rectal Exam: Yes: Deferred Musculoskeletal: Yes: Back Pain, Joint Stiffness, Joint Swelling, Muscle Weakness Extremities: Yes: Delayed Capillary Refill Neurological: Yes: Alert, Oriented, Pre-Existing Deficit, Unsteady Gait, Weakness Psychiatric: Yes: Alert, Oriented, Agitated Labs: CBC, BMP 07/22/18 05:30 07/22/18 20:59 Problem List - Problems (1) COPD exacerbation Code(s): J44.1 - CHRONIC OBSTRUCTIVE PULMONARY DISEASE W (ACUTE) EXACERBATION (2) Obesity Code(s): E66.9 - OBESITY, UNSPECIFIED (3) ASHD (arteriosclerotic heart disease) Code(s): I25.10 - ATHSCL HEART DISEASE OF [place] CORONARY ARTERY W/O ANG PCTRS (4) Abdominal pain Code(s): R10.9 - UNSPECIFIED ABDOMINAL PAIN Qualifiers: Abdominal location: upper abdomen, unspecified Qualified Code(s): R10.10 - Upper abdominal pain, unspecified (5) Acute adjustment disorder with anxiety Code(s): F43.22 - ADJUSTMENT DISORDER WITH ANXIETY (6) Acute on chronic diastolic (congestive) heart failure Code(s): I50.33 - ACUTE ON CHRONIC DIASTOLIC (CONGESTIVE) HEART FAILURE (7) Acute on chronic systolic right heart failure Code(s): I50.23 - ACUTE ON CHRONIC SYSTOLIC (CONGESTIVE) HEART FAILURE Assessment/Plan Current Active Problems COPD exacerbation (Acute) Chest pain (Acute) Obesity (Acute) diabetes mellitus hyperglycemia insulin resistant/obesity chf/cad chronic back pain Abnormal Lab Results 07/22/18 07/22/18 07/22/18 05:30 05:30 16:45 WBC 18.8 H Hgb 10.6 L Hct 33.3 L MCV 79.9 L MCH 25.5 L Sodium 134 L BUN 53 H Creatinine 1.9 H Random Glucose 396 H* 574 H* 07/22/18 20:59 WBC Hgb Hct MCV MCH Sodium 134 L BUN 54 H Creatinine 2.1 H Random Glucose 635 H* Laboratory Tests 07/22/18 07/22/18 07/22/18 06:04 11:25 15:41 POC Glucometer 391 > 600 561 Random Glucose 07/22/18 07/22/18 16:45 17:06 POC Glucometer 558 Random Glucose 574 H* plan: levemir 30units bid bgm q 4h pain management psychiatry for anxiety and depression steriod related
[2018-07-23] MEDS: ACETAMINOPHEN 325 MG TABLET (FP) PO SCH ×3 (00:45→14:45)
[2018-07-23] MEDS: oxyCODONE HCL 5 MG TABLET PO SCH ×3 (00:46→14:46)
[2018-07-23] MEDS: INSULIN SLIDING SCALE (NOVOLOG) 1 VIAL SQ SCH ×6 (02:11→22:45)
--- NOTE | 2018-07-23 02:52 | PN ---
Progress Note, Physician Chief Complaint: Pt A&Ox3; no chest pain presently unless he coughs; still dyspneic. History of Present Illness: 62 year old black male with PMH [place] (normal LVEF, with mild LVH by 07/2018 ECHO) , 6 coronary stents, most recently after 07/2016 + stress MIBI (?repeated within the past year at [facility]), COPD, asthma, diastolic CHF, trach, HTN, HLD, chronic pancreatitis, chronic back pain, SBO, incararated hernia, h. pylori , BPH, GRACIE, obesity, anxiety, chronic headaches (1X/week), who presented to ED for shortness of breath and chest pain. Pt stated his chest pain began x3 days ago, located substernally, radiating to left chest, intermittent, no alleviating factors, sometimes aggravated by coughing. Pt admitted to nonproductive cough x2 weeks, was seen by PCP, placed on Augmentin, but symptoms persisted. Pt admitted to lower extremity swelling (right is always worse than left). Pt also admitted to right sided headache, right sided blurry vision, gradual in onset, intermittent, similar to prior. Pt stated his BP was elevated this morning, 157/90. Pt denied fever, chills, abdominal pain, nausea, vomiting, diarrhea. Supervisor Special Education: Dr. Bola Elaine - Current Medication List Current Medications: Active Medications Acetaminophen (Tylenol -) 325 mg PO Q6HPO [facility] Last Admin: 07/23/18 00:45 Dose: 325 mg Albuterol Sulfate (Ventolin 0.083% Nebulizer Soln -) 1 amp NEB Q4H PRN PRN Reason: SHORT OF BREATH/WHEEZING Albuterol/Ipratropium (Duoneb -) 1 amp NEB RQID [facility] Last Admin: 07/22/18 20:54 Dose: 1 amp Amitriptyline HCl (Elavil -) 75 mg PO DAILY [facility] Amlodipine Besylate (Norvasc -) 10 mg PO DAILY [facility] Aspirin (Ecotrin -) 81 mg PO DAILY [facility] Budesonide/Formoterol Fumarate (Symbicort 160/4.5mcg -) 2 puff IH BID [facility] Last Admin: 07/22/18 23:17 Dose: 2 puff Clopidogrel Bisulfate (Plavix -) 75 mg PO DAILY [facility] Ezetimibe (Zetia -) 10 mg PO HS [facility] Last Admin: 07/22/18 22:18 Dose: 10 mg Finasteride (Proscar -) 5 mg PO DAILY [facility] Gabapentin (Neurontin -) 800 mg PO TID [facility] Last Admin: 07/22/18 22:18 Dose: 800 mg Heparin Sodium (Porcine) (Heparin -) 5,000 unit SQ TID [facility] Last Admin: 07/22/18 22:18 Dose: 5,000 unit Insulin Aspart (Novolog Vial Sliding Scale -) 1 vial SQ Q4HPO [facility]; Protocol Last Admin: 07/23/18 02:11 Dose: 15 units Insulin Detemir (Levemir Vial) 30 units SQ BID@0700,2200 [facility] Last Admin: 07/22/18 22:17 Dose: 30 units Methylprednisolone Sodium Succinate (Solu-Medrol -) 40 mg IVPUSH BID [facility] Montelukast Sodium (Singulair -) 10 mg PO [facility] Last Admin: 07/22/18 22:18 Dose: 10 mg Oxycodone HCl (Roxicodone -) 5 mg PO Q6HPO [facility] Last Admin: 07/23/18 00:46 Dose: 5 mg Pantoprazole Sodium (Protonix -) 40 mg PO DAILY [facility] Polyethylene Glycol (Miralax (For Daily Use) -) 17 gm PO DAILY PRN PRN Reason: CONSTIPATION Ramipril (Altace -) 10 mg PO DAILY [facility] Rosuvastatin Calcium (Crestor -) 10 mg PO HS [facility] Last Admin: 07/22/18 22:18 Dose: 10 mg Senna/Docusate Sodium (Pericolace -) 2 tablet PO HS PRN PRN Reason: CONSTIPATION Tamsulosin HCl (Flomax -) 0.4 mg PO DAILY@0830 [facility] - Objective Vital Signs: Vital Signs Temperature 98.6 F 07/23/18 01:47 Pulse Rate 63 07/23/18 01:47 Respiratory Rate 20 07/23/18 01:47 Blood Pressure 150/84 07/23/18 01:47 O2 Sat by Pulse Oximetry (%) 96 07/22/18 09:00 Constitutional: Yes: Anxious, Obese Eyes: Yes: WNL HENT: Yes: WNL Neck: Yes: WNL Cardiovascular: Yes: Pulse Irregular, S1, S2, S4 Respiratory: Yes: Diminished, Poor Air Entry, SOB, Wheezes Gastrointestinal: Yes: Soft, Abdomen, Obese ...Rectal Exam: Yes: Deferred Genitourinary: No: Anuria Breast(s): Yes: WNL Musculoskeletal: Yes: Muscle Weakness Extremities: Yes: Cool Edema: Yes Edema: LLE: Trace, RLE: Trace Peripheral Pulses WNL: Yes Integumentary: Yes: WNL Neurological: Yes: WNL Psychiatric: Yes: Other (anxeity) Labs: CBC, BMP 07/22/18 05:30 07/22/18 20:59 INR, PTT INR 0.99 (0.83-1.09) 07/19/18 14:19 - ....Imaging Other: Image Reviewed (telemetry: NSR with sinus arrhytmia) Problem List - Problems (1) COPD exacerbation Assessment/Plan: O2, bronchodilators, steroids per automatic head sawyer. Code(s): J44.1 - CHRONIC OBSTRUCTIVE PULMONARY DISEASE W (ACUTE) EXACERBATION (2) ASHD (arteriosclerotic heart disease) Code(s): I25.10 - ATHSCL HEART DISEASE OF [place] CORONARY ARTERY W/O ANG PCTRS (3) Abdominal pain Code(s): R10.9 - UNSPECIFIED ABDOMINAL PAIN Qualifiers: Abdominal location: upper abdomen, unspecified Qualified Code(s): R10.10 - Upper abdominal pain, unspecified (4) Acute on chronic diastolic (congestive) heart failure Assessment/Plan: On ACEI and amlodipine; furosemide prn (held due to renal condition; Cr was 1.1 in late March; now 1.7). F/u daily wt, Is and Os, BUN/Cr, electrolytes. Code(s): I50.33 - ACUTE ON CHRONIC DIASTOLIC (CONGESTIVE) HEART FAILURE (5) Anxiety Code(s): F41.9 - ANXIETY DISORDER, UNSPECIFIED (6) Asthma Code(s): J45.909 - UNSPECIFIED ASTHMA, UNCOMPLICATED Qualifiers: Asthma severity: unspecified severity (7) Atypical chest pain Assessment/Plan: associated with episodes of dyspnea. TNI < 0.02 x 3 EKG: NSR with sinus arrhythmia; Telemetry: no arrhythmias or STT changes F/u most recent stress test (?reportedly done at [facility]; pt is there followed by superintendent power--Dr. Bola Elaine) Code(s): R07.89 - OTHER CHEST PAIN (8) Cervical disc disease Code(s): M50.90 - CERVICAL DISC DISORDER, UNSP, UNSPECIFIED CERVICAL REGION (9) Diabetes mellitus, insulin dependent (IDDM), uncontrolled Code(s): E10.65 - TYPE 1 DIABETES MELLITUS WITH HYPERGLYCEMIA (10) H/O heart artery stent Code(s): Z95.5 - PRESENCE OF CORONARY ANGIOPLASTY IMPLANT AND GRAFT (11) H/O umbilical hernia repair Code(s): Z98.890 - OTHER SPECIFIED POSTPROCEDURAL STATES; Z87.19 - PERSONAL HISTORY OF OTHER DISEASES OF THE DIGESTIVE SYSTEM (12) GRACIE (obstructive sleep apnea) Code(s): G47.33 - OBSTRUCTIVE SLEEP APNEA (ADULT) (PEDIATRIC) (13) Hypertension Assessment/Plan: on ramipril 10 mg/d (CHF; HTN; DM). Increased amlodipine to 10 mg/d (pt has been on this dose at home). Code(s): I10 - ESSENTIAL (PRIMARY) HYPERTENSION Qualifiers: Hypertension type: essential hypertension Qualified Code(s): I10 - Essential (primary) hypertension (14) Hyperlipidemia Code(s): E78.5 - HYPERLIPIDEMIA, UNSPECIFIED (15) Obesity Code(s): E66.9 - OBESITY, UNSPECIFIED (16) Acute adjustment disorder with anxiety Code(s): F43.22 - ADJUSTMENT DISORDER WITH ANXIETY
[2018-07-23] MEDS: GABAPENTIN 400 MG CAPSULE (FP) PO SCH ×3 (05:52→22:20)
[2018-07-23] MEDS: HEPARIN NA (PORCINE) 5,000 UNITS/ML 1ML VIAL SQ SCH ×3 (05:53→22:20)
[2018-07-23] MEDS: INSULIN (LEVEMIR) 100 UNITS/ML UNITS SQ SCH ×2 (06:03→22:44)
[2018-07-23] MEDS ORDERED: INSULIN (NOVOLOG) ASPART 100 UNITS/ML 10ML VIAL ONE ×2 (06:33→18:19)
[2018-07-23] MEDS ORDERED: INSULIN (LEVEMIR) 100 UNITS/ML UNITS SQ ONE ×3 (06:33→18:18)
[2018-07-23] MEDS: ALBUTEROL SO4 2.5/IPRATROPIUM 0.5 INH SOL 3 ML VIAL.NEB. NEB SCH ×2 (08:14→12:14)
[2018-07-23 08:15] LABS: HEMATOCRIT 34.8 % (35.4-49); MCH 25.3 pg (25.7-33.7); MCHC 31.6 g/dl (32.0-35.9); MEAN CELL VOLUME 79.9 fl (80-96); MEAN PLT VOLUME 7.6 fl (7.5-11.1); PLATELET COUNT 346 K/MM3 (134-434); RBC 4.35 M/mm3 (4.00-5.60); RDW 15.9 % (11.9-15.9); WHITE BLOOD COUNT 18.4 K/mm3 (4.0-10.0)
[2018-07-23 09:12] LABS: ANION GAP 10 MMOL/L (8-16); BLOOD UREA NITROGEN 42 mg/dL (7-18); CALCIUM 9.2 mg/dL (8.5-10.1); CHLORIDE 103 mmol/L (98-107); CO2 24 mmol/L (21-32); CREATININE 1.5 mg/dL (0.55-1.3); GLUCOSE,RANDOM 263 mg/dL (74-106); SODIUM 136 mmol/L (136-145)
[2018-07-23] MEDS ORDERED: PT OWN MED DRAWER 7, Y5N ONE (09:23)
[2018-07-23] MEDS: methylPREDNISolone NA SUCC 40 MG/1 ML VIAL IVPUSH SCH ×2 (09:28→22:20)
[2018-07-23] MEDS: CLOPIDOGREL BISULFATE 75 MG TABLET (FP) PO SCH (09:29)
[2018-07-23] MEDS: RAMIPRIL 5 MG CAPSULE (FP) PO SCH (09:29)
[2018-07-23] MEDS: amLODIPine BESYLATE 10 MG TABLET (FP) PO SCH (09:29)
[2018-07-23] MEDS: TAMSULOSIN HCL 0.4 MG CAP PO SCH (09:29)
[2018-07-23] MEDS: PANTOPRAZOLE 40 MG TABLET (FP) PO SCH (09:29)
[2018-07-23] MEDS: ASPIRIN COATED 81 MG TABLET.EC PO SCH (09:30)
[2018-07-23] MEDS: FINASTERIDE 5 MG TABLET (FP) PO SCH (09:30)
[2018-07-23] MEDS: AMITRIPTYLINE HCL 75 MG TABLET PO SCH (09:30)
[2018-07-23] MEDS: BUDESONIDE/FORMETEROL FUMARATE 160/4.5 mcg INHALER IH SCH (09:32)
--- NOTE | 2018-07-23 09:39 | PN ---
Progress Note, Physician History of Present Illness: The patient is a 62 year old male with a significant past medical history of CHF , COPD, ACS, CADM CABG, SBO, BPH, hypertension, hyperlipidemia, pancreatitis, chronic back pain, diabetes, and tracheostomy who presents to the emergency department with shortness of breath for the past few weeks but has beeng etting worse recently. The patient reports some associated intermittent chest pain/ tightness with radiation from right to his left chest. He states that his chest pain is sharp. He reports some associated cough intermittently productive of greenish sputum for about 2 weeks was started on abx by Dr. Rojas. The patient states that he was concerned for pneumonia. The patient also reports complaint of chronic lower extremity edema, headache, and intermittent blurriness of either eye (this is a chronic problem - has had it for a long time and last episode yesterday, vision normal currently, he follows up with Dr. Garcia for the same eye complaints). Pt does endorse chronic back pain with pain raiding down his legs. He denies any other symptoms. He denies any fever, chills, nausea, vomiting, diarrhea, constipation or urinary symptoms. He denies any dizziness. . - Current Medication List Current Medications: Active Medications Acetaminophen (Tylenol -) 325 mg PO Q6HPO [facility] Last Admin: 07/23/18 05:53 Dose: 325 mg Albuterol Sulfate (Ventolin 0.083% Nebulizer Soln -) 1 amp NEB Q4H PRN PRN Reason: SHORT OF BREATH/WHEEZING Albuterol/Ipratropium (Duoneb -) 1 amp NEB RQID [facility] Last Admin: 07/23/18 08:14 Dose: 1 amp Amitriptyline HCl (Elavil -) 75 mg PO DAILY [facility] Last Admin: 07/23/18 09:30 Dose: 75 mg Amlodipine Besylate (Norvasc -) 10 mg PO DAILY [facility] Last Admin: 07/23/18 09:29 Dose: 10 mg Aspirin (Ecotrin -) 81 mg PO DAILY [facility] Last Admin: 07/23/18 09:30 Dose: 81 mg Budesonide/Formoterol Fumarate (Symbicort 160/4.5mcg -) 2 puff IH BID [facility] Last Admin: 07/23/18 09:32 Dose: 2 puff Clopidogrel Bisulfate (Plavix -) 75 mg PO DAILY [facility] Last Admin: 07/23/18 09:29 Dose: 75 mg Ezetimibe (Zetia -) 10 mg PO HS [facility] Last Admin: 07/22/18 22:18 Dose: 10 mg Finasteride (Proscar -) 5 mg PO DAILY [facility] Last Admin: 07/23/18 09:30 Dose: 5 mg Gabapentin (Neurontin -) 800 mg PO TID [facility] Last Admin: 07/23/18 05:52 Dose: 800 mg Heparin Sodium (Porcine) (Heparin -) 5,000 unit SQ TID [facility] Last Admin: 07/23/18 05:53 Dose: 5,000 unit Insulin Aspart (Novolog Vial Sliding Scale -) 1 vial SQ Q4HPO [facility]; Protocol Last Admin: 07/23/18 05:54 Dose: 11 units Insulin Detemir (Levemir Vial) 40 units SQ BID@0700,2200 [facility] Methylprednisolone Sodium Succinate (Solu-Medrol -) 40 mg IVPUSH BID [facility] Last Admin: 07/23/18 09:28 Dose: 40 mg Montelukast Sodium (Singulair -) 10 mg PO HS [facility] Last Admin: 07/22/18 22:18 Dose: 10 mg Oxycodone HCl (Roxicodone -) 5 mg PO Q6HPO [facility] Last Admin: 07/23/18 05:53 Dose: 5 mg Pantoprazole Sodium (Protonix -) 40 mg PO DAILY [facility] Last Admin: 07/23/18 09:29 Dose: 40 mg Polyethylene Glycol (Miralax (For Daily Use) -) 17 gm PO DAILY PRN PRN Reason: CONSTIPATION Ramipril (Altace -) 10 mg PO DAILY [facility] Last Admin: 07/23/18 09:29 Dose: 10 mg Rosuvastatin Calcium (Crestor -) 10 mg PO HS [facility] Last Admin: 07/22/18 22:18 Dose: 10 mg Senna/Docusate Sodium (Pericolace -) 2 tablet PO PRN PRN Reason: CONSTIPATION Tamsulosin HCl (Flomax -) 0.4 mg PO DAILY@0830 [facility] Last Admin: 07/23/18 09:29 Dose: 0.4 mg - Objective Vital Signs: Vital Signs Temperature 97.9 F 07/23/18 06:00 Pulse Rate 96 H 07/23/18 06:00 Respiratory Rate 20 07/23/18 06:00 Blood Pressure 151/85 07/23/18 06:00 O2 Sat by Pulse Oximetry (%) 96 07/22/18 21:00 Eyes: Yes: WNL, Conjunctiva Clear, EOM Intact HENT: Yes: WNL, Atraumatic, Normocephalic Neck: Yes: WNL, Supple, Trachea Midline Cardiovascular: Yes: WNL, Regular Rate and Rhythm Respiratory: Yes: Diminished, Wheezes Gastrointestinal: Yes: WNL, Normal Bowel Sounds Genitourinary: Yes: WNL Musculoskeletal: Yes: WNL Extremities: Yes: WNL Edema: No Integumentary: Yes: WNL Neurological: Yes: WNL, Alert, Oriented ...Motor Strength: WNL Psychiatric: Yes: WNL Labs: CBC, BMP 07/23/18 07:00 07/23/18 07:00 INR, PTT INR 0.99 (0.83-1.09) 07/19/18 14:19 Problem List - Problems (1) COPD exacerbation Code(s): J44.1 - CHRONIC OBSTRUCTIVE PULMONARY DISEASE W (ACUTE) EXACERBATION (2) Chest pain Code(s): R07.9 - CHEST PAIN, UNSPECIFIED (3) ASHD (arteriosclerotic heart disease) Code(s): I25.10 - ATHSCL HEART DISEASE OF [place] CORONARY ARTERY W/O ANG PCTRS (4) Abdominal pain Code(s): R10.9 - UNSPECIFIED ABDOMINAL PAIN Qualifiers: Abdominal location: upper abdomen, unspecified Qualified Code(s): R10.10 - Upper abdominal pain, unspecified (5) Acute adjustment disorder with anxiety Code(s): F43.22 - ADJUSTMENT DISORDER WITH ANXIETY (6) Acute on chronic diastolic (congestive) heart failure Code(s): I50.33 - ACUTE ON CHRONIC DIASTOLIC (CONGESTIVE) HEART FAILURE (7) Acute on chronic systolic right heart failure Code(s): I50.23 - ACUTE ON CHRONIC SYSTOLIC (CONGESTIVE) HEART FAILURE (8) Anemia Code(s): D64.9 - ANEMIA, UNSPECIFIED (9) Anxiety Code(s): F41.9 - ANXIETY DISORDER, UNSPECIFIED (10) Arrhythmia Code(s): I49.9 - CARDIAC ARRHYTHMIA, UNSPECIFIED (11) Asthma Code(s): J45.909 - UNSPECIFIED ASTHMA, UNCOMPLICATED Qualifiers: Asthma severity: unspecified severity (12) Asthma exacerbation Code(s): J45.901 - UNSPECIFIED ASTHMA WITH (ACUTE) EXACERBATION (13) Asthma exacerbation in COPD Code(s): J44.1 - CHRONIC OBSTRUCTIVE PULMONARY DISEASE W (ACUTE) EXACERBATION; J45.901 - UNSPECIFIED ASTHMA WITH (ACUTE) EXACERBATION (14) Asthma with bronchitis and status asthmaticus Code(s): J45.902 - UNSPECIFIED ASTHMA WITH STATUS ASTHMATICUS Qualifiers: Asthma severity: severe persistent Qualified Code(s): J45.52 - Severe persistent asthma with status asthmaticus (15) Atypical chest pain Code(s): R07.89 - OTHER CHEST PAIN (16) BPH (benign prostatic hyperplasia) Code(s): N40.0 - BENIGN PROSTATIC HYPERPLASIA WITHOUT LOWER URINRY TRACT SYMP (17) Bronchitis Code(s): J40 - BRONCHITIS, NOT SPECIFIED ACUTE OR CHRONIC (18) CHF (congestive heart failure) Code(s): I50.9 - HEART FAILURE, UNSPECIFIED (19) COPD (chronic obstructive pulmonary disease) Code(s): J44.9 - CHRONIC OBSTRUCTIVE PULMONARY DISEASE, UNSPECIFIED (20) Cervical disc disease Code(s): M50.90 - CERVICAL DISC DISORDER, UNSP, UNSPECIFIED CERVICAL REGION (21) Cervical radiculopathy Code(s): M54.12 - RADICULOPATHY, CERVICAL REGION (22) Cervical vertebral fusion Code(s): M43.22 - FUSION OF SPINE, CERVICAL REGION (23) Cervicalgia Code(s): M54.2 - CERVICALGIA (24) Chest pain made worse by breathing Code(s): R07.1 - CHEST PAIN ON BREATHING (25) Chronic back pain Code(s): M54.9 - DORSALGIA, UNSPECIFIED; G89.29 - OTHER CHRONIC PAIN Qualifiers: (26) Chronic bronchitis with COPD (chronic obstructive pulmonary disease) Code(s): J44.9 - CHRONIC OBSTRUCTIVE PULMONARY DISEASE, UNSPECIFIED (27) Chronic diastolic (congestive) heart failure Code(s): I50.32 - CHRONIC DIASTOLIC (CONGESTIVE) HEART FAILURE (28) Chronic pain Code(s): G89.29 - OTHER CHRONIC PAIN Qualifiers: Chronic pain type: chronic pain syndrome Qualified Code(s): G89.4 - Chronic pain syndrome (29) Chronic pain following surgery or procedure Code(s): G89.28 - OTHER CHRONIC POSTPROCEDURAL PAIN (30) Chronic pain with drug dependence Code(s): G89.29 - OTHER CHRONIC PAIN; F19.20 - OTHER PSYCHOACTIVE SUBSTANCE DEPENDENCE, UNCOMPLICATED (31) Chronic pancreatitis Code(s): K86.1 - OTHER CHRONIC PANCREATITIS Qualifiers: Pancreatitis type: unspecified pancreatitis type Qualified Code(s): K86.1 - Other chronic pancreatitis (32) Constipation Code(s): K59.00 - CONSTIPATION, UNSPECIFIED (33) 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 Code(s): E10.8 - TYPE 1 DIABETES MELLITUS WITH UNSPECIFIED COMPLICATIONS (34) Coronary artery disease Code(s): I25.10 - ATHSCL HEART DISEASE OF [place] CORONARY ARTERY W/O ANG PCTRS (35) Coronary artery disease involving autologous artery coronary bypass graft Code(s): I25.810 - ATHEROSCLEROSIS OF CABG W/O ANGINA PECTORIS (36) Diabetes mellitus Code(s): E11.9 - TYPE 2 DIABETES MELLITUS WITHOUT COMPLICATIONS Qualifiers: Diabetes mellitus type: type 2 Diabetes mellitus complication detail: with unspecified neuropathy (37) 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 Code(s): E10.51 - TYPE 1 DIABETES W DIABETIC PERIPHERAL ANGIOPATH W/O GANGRENE; I70.209 - UNSP ATHSCL [place] ARTERIES OF EXTREMITIES, UNSP EXTREMITY (38) Diabetes mellitus, insulin dependent (IDDM), uncontrolled Code(s): E10.65 - TYPE 1 DIABETES MELLITUS WITH HYPERGLYCEMIA (39) Diarrhea Code(s): R19.7 - DIARRHEA, UNSPECIFIED Qualifiers: Diarrhea type: functional diarrhea Qualified Code(s): K59.1 - Functional diarrhea (40) Elevated lipase Code(s): R74.8 - ABNORMAL LEVELS OF OTHER SERUM ENZYMES (41) Esophagitis determined by endoscopy Code(s): K20.9 - ESOPHAGITIS, UNSPECIFIED (42) Fecal incontinence Code(s): R15.9 - FULL INCONTINENCE OF FECES (43) Fecal incontinence alternating with constipation Code(s): R15.9 - FULL INCONTINENCE OF FECES; K59.00 - CONSTIPATION, UNSPECIFIED (44) Fever of unknown origin Code(s): R50.9 - FEVER, UNSPECIFIED (45) Flank pain Code(s): R10.9 - UNSPECIFIED ABDOMINAL PAIN (46) Fungal esophagitis Code(s): K20.8 - OTHER ESOPHAGITIS (47) Fusion of lumbar spine Code(s): M43.26 - FUSION OF SPINE, LUMBAR REGION (48) Gross hematuria Code(s): R31.0 - GROSS HEMATURIA (49) H/O cervical spine surgery Code(s): Z98.89 - OTHER SPECIFIED POSTPROCEDURAL STATES * DO NOT USE * (50) H/O heart artery stent Code(s): Z95.5 - PRESENCE OF CORONARY ANGIOPLASTY IMPLANT AND GRAFT (51) H/O umbilical hernia repair Code(s): Z98.890 - OTHER SPECIFIED POSTPROCEDURAL STATES; Z87.19 - PERSONAL HISTORY OF OTHER DISEASES OF THE DIGESTIVE SYSTEM (52) Headache Code(s): R51 - HEADACHE (53) Hematuria Code(s): R31.9 - HEMATURIA, UNSPECIFIED (54) Hx of CABG Code(s): Z95.1 - PRESENCE OF AORTOCORONARY BYPASS GRAFT (55) Hyperlipidemia Code(s): E78.5 - HYPERLIPIDEMIA, UNSPECIFIED (56) Hypertension Code(s): I10 - ESSENTIAL (PRIMARY) HYPERTENSION Qualifiers: Hypertension type: essential hypertension Qualified Code(s): I10 - Essential (primary) hypertension (57) Hypertension associated with diabetes Code(s): E11.59 - TYPE 2 DIABETES MELLITUS WITH OTH CIRCULATORY COMPLICATIONS; I10 - ESSENTIAL (PRIMARY) HYPERTENSION (58) Hypokalemia Code(s): E87.6 - HYPOKALEMIA (59) IPMN (intraductal papillary mucinous neoplasm) Code(s): D49.0 - NEOPLASM OF UNSPECIFIED BEHAVIOR OF DIGESTIVE SYSTEM (60) Lactic acid increased Code(s): E87.2 - ACIDOSIS (61) Leukocytosis Code(s): D72.829 - ELEVATED WHITE BLOOD CELL COUNT, UNSPECIFIED (62) Leukocytosis Code(s): D72.829 - ELEVATED WHITE BLOOD CELL COUNT, UNSPECIFIED (63) Myocardial infarct Code(s): I21.3 - ST ELEVATION (STEMI) MYOCARDIAL INFARCTION OF UNSP SITE (64) Nausea Code(s): R11.0 - NAUSEA (65) Nausea & vomiting Code(s): R11.2 - NAUSEA WITH VOMITING, UNSPECIFIED Qualifiers: Vomiting type: unspecified Vomiting Intractability: unspecified Qualified Code(s): R11.2 - Nausea with vomiting, unspecified (66) Neutropenia Code(s): D70.9 - NEUTROPENIA, UNSPECIFIED Qualifiers: Neutropenia type: unspecified Qualified Code(s): D70.9 - Neutropenia, unspecified (67) GRACIE (obstructive sleep apnea) Code(s): G47.33 - OBSTRUCTIVE SLEEP APNEA (ADULT) (PEDIATRIC) (68) Opiate dependence Code(s): F11.20 - OPIOID DEPENDENCE, UNCOMPLICATED (69) Pancreatitis Code(s): K85.9 - ACUTE PANCREATITIS, UNSPECIFIED * DO NOT USE * Qualifiers: Chronicity: acute Pancreatitis type: other (70) Pancreatitis, acute Code(s): K85.9 - ACUTE PANCREATITIS, UNSPECIFIED * DO NOT USE * Qualifiers: Pancreatitis type: unspecified pancreatitis type (71) Paroxysmal SVT (supraventricular tachycardia) Code(s): I47.1 - SUPRAVENTRICULAR TACHYCARDIA (72) Pneumonia Code(s): J18.9 - PNEUMONIA, UNSPECIFIED ORGANISM Qualifiers: (73) Pre-ulcerative corn or callous Code(s): L84 - CORNS AND CALLOSITIES (74) Pulmonary hypertension Code(s): I27.2 - OTHER SECONDARY PULMONARY HYPERTENSION * DO NOT USE * (75) Rectal bleeding Code(s): K62.5 - HEMORRHAGE OF ANUS AND RECTUM (76) Renal calculus, left Code(s): N20.0 - CALCULUS OF KIDNEY (77) Renal insufficiency Code(s): N28.9 - DISORDER OF KIDNEY AND URETER, UNSPECIFIED (78) Right leg pain Code(s): M79.604 - PAIN IN RIGHT LEG (79) S/P laparotomy Code(s): Z98.890 - OTHER SPECIFIED POSTPROCEDURAL STATES (80) S/P lumbar spinal fusion Code(s): Z98.1 - ARTHRODESIS STATUS (81) SBO (small bowel obstruction) Code(s): K56.609 - UNSP INTESTNL OBST, UNSP TO PARTIAL VERSUS COMPLETE OBST (82) Shortness of breath Code(s): R06.02 - SHORTNESS OF BREATH (83) Sleep apnea Code(s): G47.30 - SLEEP APNEA, UNSPECIFIED (84) Status post spinal surgery Code(s): Z98.89 - OTHER SPECIFIED POSTPROCEDURAL STATES * DO NOT USE * (85) Tracheostomy in place Code(s): Z98.89 - OTHER SPECIFIED POSTPROCEDURAL STATES * DO NOT USE * (86) Type 2 diabetes mellitus with diabetic neuropathic arthropathy Code(s): E11.610 - TYPE 2 DIABETES MELLITUS W DIABETIC NEUROPATHIC ARTHROPATHY (87) Type 2 diabetes mellitus with diabetic neuropathy Code(s): E11.40 - TYPE 2 DIABETES MELLITUS WITH DIABETIC NEUROPATHY, UNSP (88) Type 2 diabetes mellitus with hyperosmolarity without nonketotic hyperglycemic-hyperosmolar coma ([facility]) Code(s): E11.00 - TYPE 2 DIAB W HYPROSM W/O NONKET HYPRGLY-HYPROS COMA ([facility]) (89) Umbilical hernia Code(s): K42.9 - UMBILICAL HERNIA WITHOUT OBSTRUCTION OR GANGRENE Qualifiers: Obstruction and gangrene presence: without obstruction or gangrene Qualified Code(s): K42.9 - Umbilical hernia without obstruction or gangrene Assessment/Plan - Problems (1) COPD exacerbation Assessment/Plan: O2, bronchodilators, steroids per veterinary virus serum inspector. Code(s): J44.1 - CHRONIC OBSTRUCTIVE PULMONARY DISEASE W (ACUTE) EXACERBATION (2) ASHD (arteriosclerotic heart disease) Code(s): I25.10 - ATHSCL HEART DISEASE OF [place] CORONARY ARTERY W/O ANG PCTRS (3) Abdominal pain Code(s): R10.9 - UNSPECIFIED ABDOMINAL PAIN Qualifiers: Abdominal location: upper abdomen, unspecified Qualified Code(s): R10.10 - Upper abdominal pain, unspecified (4) Acute on chronic diastolic (congestive) heart failure Assessment/Plan: On ACEI and amlodipine; furosemide prn (held due to renal condition; Cr was 1.1 in late March; now 1.7). F/u daily wt, Is and Os, BUN/Cr, electrolytes. Code(s): I50.33 - ACUTE ON CHRONIC DIASTOLIC (CONGESTIVE) HEART FAILURE (5) Anxiety Code(s): F41.9 - ANXIETY DISORDER, UNSPECIFIED (6) Asthma Code(s): J45.909 - UNSPECIFIED ASTHMA, UNCOMPLICATED Qualifiers: Asthma severity: unspecified severity (7) Atypical chest pain Assessment/Plan: associated with episodes of dyspnea. TNI < 0.02 x 3 EKG: NSR with sinus arrhythmia; Telemetry: no arrhythmias or STT changes F/u most recent stress test (?reportedly done at [facility]; pt is there followed by sales professional bilingual--Dr. Bola Elaine) Code(s): R07.89 - OTHER CHEST PAIN (8) Cervical disc disease Code(s): M50.90 - CERVICAL DISC DISORDER, UNSP, UNSPECIFIED CERVICAL REGION (9) Diabetes mellitus, insulin dependent (IDDM), uncontrolled Code(s): E10.65 - TYPE 1 DIABETES MELLITUS WITH HYPERGLYCEMIA (10) H/O heart artery stent Code(s): Z95.5 - PRESENCE OF CORONARY ANGIOPLASTY IMPLANT AND GRAFT (11) H/O umbilical hernia repair Code(s): Z98.890 - OTHER SPECIFIED POSTPROCEDURAL STATES; Z87.19 - PERSONAL HISTORY OF OTHER DISEASES OF THE DIGESTIVE SYSTEM (12) GRACIE (obstructive sleep apnea) Code(s): G47.33 - OBSTRUCTIVE SLEEP APNEA (ADULT) (PEDIATRIC) (13) Hypertension Assessment/Plan: on ramipril 10 mg/d (CHF; HTN; DM). Increased amlodipine to 10 mg/d (pt has been on this dose at home). Code(s): I10 - ESSENTIAL (PRIMARY) HYPERTENSION Qualifiers: Hypertension type: essential hypertension Qualified Code(s): I10 - Essential (primary) hypertension (14) Hyperlipidemia Code(s): E78.5 - HYPERLIPIDEMIA, UNSPECIFIED (15) Obesity Code(s): E66.9 - OBESITY, UNSPECIFIED (16) Acute adjustment disorder with anxiety Code(s): F43.22 - ADJUSTMENT DISORDER WITH ANXIETY
[2018-07-23] MEDS ORDERED: BUDESONIDE/FORMETEROL FUMARATE 160/4.5 mcg INHALER IH SCH (10:00)
[2018-07-23] MEDS ORDERED: FUROSEMIDE 40 MG/4 ML INJECTABLE VIAL IVPUSH SCH (10:00)
--- NOTE | 2018-07-23 13:14 | PN ---
Progress Note, Physician History of Present Illness: pulmonary alert,congested - Current Medication List Current Medications: Active Medications Acetaminophen (Tylenol -) 325 mg PO Q6HPO [facility] Last Admin: 07/23/18 05:53 Dose: 325 mg Albuterol Sulfate (Ventolin 0.083% Nebulizer Soln -) 1 amp NEB Q4H PRN PRN Reason: SHORT OF BREATH/WHEEZING Albuterol/Ipratropium (Duoneb -) 1 amp NEB RQID [facility] Last Admin: 07/23/18 12:14 Dose: 1 amp Amitriptyline HCl (Elavil -) 75 mg PO DAILY [facility] Last Admin: 07/23/18 09:30 Dose: 75 mg Amlodipine Besylate (Norvasc -) 10 mg PO DAILY [facility] Last Admin: 07/23/18 09:29 Dose: 10 mg Aspirin (Ecotrin -) 81 mg PO DAILY [facility] Last Admin: 07/23/18 09:30 Dose: 81 mg Budesonide/Formoterol Fumarate (Symbicort 160/4.5mcg -) 2 puff IH BID [facility] Last Admin: 07/23/18 09:32 Dose: 2 puff Clopidogrel Bisulfate (Plavix -) 75 mg PO DAILY [facility] Last Admin: 07/23/18 09:29 Dose: 75 mg Ezetimibe (Zetia -) 10 mg PO [facility] Last Admin: 07/22/18 22:18 Dose: 10 mg Finasteride (Proscar -) 5 mg PO DAILY [facility] Last Admin: 07/23/18 09:30 Dose: 5 mg Gabapentin (Neurontin -) 800 mg PO TID [facility] Last Admin: 07/23/18 05:52 Dose: 800 mg Heparin Sodium (Porcine) (Heparin -) 5,000 unit SQ TID [facility] Last Admin: 07/23/18 05:53 Dose: 5,000 unit Insulin Aspart (Novolog Vial Sliding Scale -) 1 vial SQ Q4HPO [facility]; Protocol Last Admin: 07/23/18 10:01 Dose: 9 units Insulin Detemir (Levemir Vial) 40 units SQ BID@0700,2200 [facility] Methylprednisolone Sodium Succinate (Solu-Medrol -) 40 mg IVPUSH BID [facility] Last Admin: 07/23/18 09:28 Dose: 40 mg Montelukast Sodium (Singulair -) 10 mg PO HS [facility] Last Admin: 07/22/18 22:18 Dose: 10 mg Oxycodone HCl (Roxicodone -) 5 mg PO Q6HPO [facility] Last Admin: 07/23/18 05:53 Dose: 5 mg Pantoprazole Sodium (Protonix -) 40 mg PO DAILY [facility] Last Admin: 07/23/18 09:29 Dose: 40 mg Polyethylene Glycol (Miralax (For Daily Use) -) 17 gm PO DAILY PRN PRN Reason: CONSTIPATION Ramipril (Altace -) 10 mg PO DAILY [facility] Last Admin: 07/23/18 09:29 Dose: 10 mg Rosuvastatin Calcium (Crestor -) 10 mg PO HS [facility] Last Admin: 07/22/18 22:18 Dose: 10 mg Senna/Docusate Sodium (Pericolace -) 2 tablet PO HS PRN PRN Reason: CONSTIPATION Tamsulosin HCl (Flomax -) 0.4 mg PO DAILY@0830 [facility] Last Admin: 07/23/18 09:29 Dose: 0.4 mg - Objective Vital Signs: Vital Signs Temperature 97.9 F 07/23/18 10:00 Pulse Rate 97 H 07/23/18 10:00 Respiratory Rate 22 H 07/23/18 10:00 Blood Pressure 142/89 07/23/18 10:00 O2 Sat by Pulse Oximetry (%) 96 07/23/18 09:00 Constitutional: Yes: Well Nourished, Calm Eyes: Yes: WNL HENT: Yes: WNL Neck: Yes: Supple (trach) Cardiovascular: Yes: Regular Rate and Rhythm, S1, S2 Respiratory: Yes: Rhonchi, Wheezes (bilateral wheezes and rhonchi) Gastrointestinal: Yes: Normal Bowel Sounds, Soft Extremities: Yes: WNL Edema: Yes Labs: CBC, BMP 07/23/18 07:00 07/23/18 07:00 INR, PTT INR 0.99 (0.83-1.09) 07/19/18 14:19 Problem List - Problems (1) COPD exacerbation Code(s): J44.1 - CHRONIC OBSTRUCTIVE PULMONARY DISEASE W (ACUTE) EXACERBATION (2) Chest pain Code(s): R07.9 - CHEST PAIN, UNSPECIFIED (3) ASHD (arteriosclerotic heart disease) Code(s): I25.10 - ATHSCL HEART DISEASE OF [place] CORONARY ARTERY W/O ANG PCTRS (4) Asthma exacerbation Code(s): J45.901 - UNSPECIFIED ASTHMA WITH (ACUTE) EXACERBATION (5) CHF (congestive heart failure) Code(s): I50.9 - HEART FAILURE, UNSPECIFIED (6) 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 Code(s): E10.8 - TYPE 1 DIABETES MELLITUS WITH UNSPECIFIED COMPLICATIONS (7) Coronary artery disease involving autologous artery coronary bypass graft Code(s): I25.810 - ATHEROSCLEROSIS OF CABG W/O ANGINA PECTORIS (8) H/O cervical spine surgery Code(s): Z98.89 - OTHER SPECIFIED POSTPROCEDURAL STATES * DO NOT USE * (9) H/O heart artery stent Code(s): Z95.5 - PRESENCE OF CORONARY ANGIOPLASTY IMPLANT AND GRAFT (10) Hx of CABG Code(s): Z95.1 - PRESENCE OF AORTOCORONARY BYPASS GRAFT (11) Hyperlipidemia Code(s): E78.5 - HYPERLIPIDEMIA, UNSPECIFIED (12) Hypertension Code(s): I10 - ESSENTIAL (PRIMARY) HYPERTENSION Qualifiers: Hypertension type: essential hypertension Qualified Code(s): I10 - Essential (primary) hypertension (13) Pancreatitis Code(s): K85.9 - ACUTE PANCREATITIS, UNSPECIFIED * DO NOT USE * Qualifiers: Chronicity: acute Pancreatitis type: other (14) Renal insufficiency Code(s): N28.9 - DISORDER OF KIDNEY AND URETER, UNSPECIFIED Assessment/Plan IMP SEVERE CHRONIC PERSISTENT ASTHMA WITH ACUTE EXACERBATION ASHD S/P CABG,S/P STENTS DM HTN CHRONIC PAIN H/O PANCREATITIS,PANCREATIC CYST OSAS S/P TRACH BPH RML NODULE STABLE ACUTE ON CHRONIC KIDNEY DISEASE PLAN IV STEROIDS] INHALED BRONCHODILATORS O2 NEEDED MONITOR PEAK FLOW MONITOR LYTES,RENAL FUNCTION,BLOOD SUGARS GLYCEMIC CONTROL DR VANESSA Problem List - Problems (1) COPD exacerbation Code(s): J44.1 - CHRONIC OBSTRUCTIVE PULMONARY DISEASE W (ACUTE) EXACERBATION (2) Chest pain Code(s): R07.9 - CHEST PAIN, UNSPECIFIED (3) ASHD (arteriosclerotic heart disease) Code(s): I25.10 - ATHSCL HEART DISEASE OF [place] CORONARY ARTERY W/O ANG PCTRS (4) Asthma exacerbation Code(s): J45.901 - UNSPECIFIED ASTHMA WITH (ACUTE) EXACERBATION (5) CHF (congestive heart failure) Code(s): I50.9 - HEART FAILURE, UNSPECIFIED (6) 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 Code(s): E10.8 - TYPE 1 DIABETES MELLITUS WITH UNSPECIFIED COMPLICATIONS (7) Coronary artery disease involving autologous artery coronary bypass graft Code(s): I25.810 - ATHEROSCLEROSIS OF CABG W/O ANGINA PECTORIS (8) H/O cervical spine surgery Code(s): Z98.89 - OTHER SPECIFIED POSTPROCEDURAL STATES * DO NOT USE * (9) H/O heart artery stent Code(s): Z95.5 - PRESENCE OF CORONARY ANGIOPLASTY IMPLANT AND GRAFT (10) Hx of CABG Code(s): Z95.1 - PRESENCE OF AORTOCORONARY BYPASS GRAFT (11) Hyperlipidemia Code(s): E78.5 - HYPERLIPIDEMIA, UNSPECIFIED (12) Hypertension Code(s): I10 - ESSENTIAL (PRIMARY) HYPERTENSION Qualifiers: Hypertension type: essential hypertension Qualified Code(s): I10 - Essential (primary) hypertension (13) Pancreatitis Code(s): K85.9 - ACUTE PANCREATITIS, UNSPECIFIED * DO NOT USE * Qualifiers: Chronicity: acute Pancreatitis type: other (14) Renal insufficiency Code(s): N28.9 - DISORDER OF KIDNEY AND URETER, UNSPECIFIED
--- NOTE | 2018-07-23 13:42 | CON.PSY ---
Psychiatry Consult Chief Complaint: 62 year old male with severe copd, closed trach and opiate dependence. Seen fdor anxiety. Symptoms: reports: Anxiety - Previous Psychiatric Treatment Outpatient: None Inpatient: None - Previous Substance Abuse Treatment Outpatient: None Inpatient: None - Current Medications Current Medications: Active Medications Acetaminophen (Tylenol -) 325 mg PO Q6HPO [facility] Last Admin: 07/23/18 05:53 Dose: 325 mg Albuterol Sulfate (Ventolin 0.083% Nebulizer Soln -) 1 amp NEB Q4H PRN PRN Reason: SHORT OF BREATH/WHEEZING Amitriptyline HCl (Elavil -) 75 mg PO DAILY [facility] Last Admin: 07/23/18 09:30 Dose: 75 mg Amlodipine Besylate (Norvasc -) 10 mg PO DAILY [facility] Last Admin: 07/23/18 09:29 Dose: 10 mg Arformoterol Tartrate (Brovana (Restricted To Pulmonology/Resp) -) 1 amp NEB RBID [facility] Aspirin (Ecotrin -) 81 mg PO DAILY [facility] Last Admin: 07/23/18 09:30 Dose: 81 mg Clopidogrel Bisulfate (Plavix -) 75 mg PO DAILY [facility] Last Admin: 07/23/18 09:29 Dose: 75 mg Ezetimibe (Zetia -) 10 mg PO HS [facility] Last Admin: 07/22/18 22:18 Dose: 10 mg Finasteride (Proscar -) 5 mg PO DAILY [facility] Last Admin: 07/23/18 09:30 Dose: 5 mg Gabapentin (Neurontin -) 800 mg PO TID [facility] Last Admin: 07/23/18 05:52 Dose: 800 mg Heparin Sodium (Porcine) (Heparin -) 5,000 unit SQ TID [facility] Last Admin: 07/23/18 05:53 Dose: 5,000 unit Insulin Aspart (Novolog Vial Sliding Scale -) 1 vial SQ Q4HPO [facility]; Protocol Last Admin: 07/23/18 10:01 Dose: 9 units Insulin Detemir (Levemir Vial) 40 units SQ BID@0700,2200 [facility] Methylprednisolone Sodium Succinate (Solu-Medrol -) 40 mg IVPUSH BID [facility] Last Admin: 07/23/18 09:28 Dose: 40 mg Mometasone Furoate (Asmanex 220mcg -) 2 puff IH BID [facility] Montelukast Sodium (Singulair -) 10 mg PO HS [facility] Last Admin: 07/22/18 22:18 Dose: 10 mg Oxycodone HCl (Roxicodone -) 5 mg PO Q6HPO [facility] Last Admin: 07/23/18 05:53 Dose: 5 mg Pantoprazole Sodium (Protonix -) 40 mg PO DAILY [facility] Last Admin: 07/23/18 09:29 Dose: 40 mg Polyethylene Glycol (Miralax (For Daily Use) -) 17 gm PO DAILY PRN PRN Reason: CONSTIPATION Ramipril (Altace -) 10 mg PO DAILY [facility] Last Admin: 07/23/18 09:29 Dose: 10 mg Rosuvastatin Calcium (Crestor -) 10 mg PO [facility] Last Admin: 07/22/18 22:18 Dose: 10 mg Senna/Docusate Sodium (Pericolace -) 2 tablet PO PRN PRN Reason: CONSTIPATION Tamsulosin HCl (Flomax -) 0.4 mg PO DAILY@0830 [facility] Last Admin: 07/23/18 09:29 Dose: 0.4 mg - Allergies Allergies: Allergies Allergy/AdvReac Type Severity Reaction Status Date / Time shellfish derived Allergy Severe Verified 08/18/17 13:42 Tetracyclines Allergy Severe Verified 08/18/17 13:42 - Current Living Status Usual Living Arrangement: Alone - Current Mental Status Evaluation Appearance: Well Groomed Attitude: Cooperative - Affect Affect: Constrictive Appropriateness: Appropriate to Content - Mood Mood: Anxious - Speech/Language Expressive: Coherent - Psychomotor Activity Psychomotor Activity: Normal - Thought Process Thought Process: Intact - Thought Content Hallucinations: Absent Delusions: Absent - Self Perception Self Perception: No Impairment - Cognition Attention: Alert Orientation: Time Memory, Immediate Recall: Intact Memory, Short Term: 3/3 Memory, Remote with Promptin/3 - Concentration Serial Sevens Intact: Yes Simple Calculations Intact: Yes - Abstraction Proverb Interpretation: Intact Judgement: Minimally Impaired - Insight Insight: Intact - Impulse Control Impulse Control: Good Control - Suicidal Ideation Suicidal Ideation: No - Homicidal Ideation Homicidal Ideation: No Assessment/Plan 1) continue with Amytryptinie and Neurontin for anxiety,
--- NOTE | 2018-07-23 14:01 | PN ---
Physical Exam: SUBJECTIVE: Patient seen and examined at bedside. With uncontrolled sugars overnight; requiring increased amts of coverage. Today pt upset and requesting pain medications. No further complaint. OBJECTIVE: Vital Signs Period Temp Pulse Resp BP Sys/Agtes Pulse Ox Last 24 Hr 97.5 F-98.6 F 63-106 19-22 136-151/66-89 96-96 GENERAL: The patient is frustrated- awake, alert, and fully oriented, in no acute distress. HEAD: Normal with no signs of trauma. EYES: PERRL, extraocular movements intact, sclera anicteric, conjunctiva clear. ENT: Ears normal, nares patent, oropharynx clear without exudates NECK: Trachea midline, full range of motion, supple. LUNGS: +wheezing b/l. coughing HEART: Regular rate and rhythm, S1, S2 without murmur, rub or gallop. ABDOMEN: Soft, obese, nontender, nondistended, normoactive bowel sounds EXTREMITIES: 2+ pt pulses, warm, well-perfused, no edema. NEUROLOGICAL: Cranial nerves II through XII grossly intact. PSYCH: stressed, frustrated SKIN: Warm, dry, normal turgor Laboratory Results 07/22/18 07/22/18 07/22/18 16:45 17:06 20:59 BUN 54 H Creatinine 2.1 H POC Glucometer 558 Random Glucose 574 H* 635 H* 07/22/18 07/23/18 07/23/18 23:18 02:04 05:47 BUN Creatinine POC Glucometer 582 491 325 Random Glucose 07/23/18 07/23/18 07:00 09:58 BUN 42 H Creatinine 1.5 H POC Glucometer 265 Random Glucose 263 H ASSESSMENT/PLAN: 62 year old obese male with PMH CAD, [place], CABG; s/p coronary stents x 6 (most recently 12/2015),HTN, HLD, chronic pancreatitis, chronic back pain , SBO, incarcerated hernia s/p repair x2 (September 2017), H.Pylori, BPH, COPD, bronchial asthma, tracheostomy in place (unplugs when sleeping for GRACIE), anxiety who presented for generalized body aches and cough. Found to be in acute asthma exacerbation #acute asthma exacerbation -c/w medrol 40mg BID ; as pt with uncontrolled sugars -nebs -Symbicort. follow peak flow #Acute HFpEF exacerbation -Lasix d/c'd as LOVE #IDDM exacerbated by steroids -seen by endo; c/w Levemir 40 SQ BID -BGM/ISS q4h #?steroid induced anxiety -seen by psych; c/w neurontin, amitriptyline #generalized myalgias likely 2/2 chronic back pain -roxicodone 5mg q6h PRN -ISTOP: #: [id number]; Pt has previously picked up Rx for percocet 10-325 , 180 pills for 15 days on 03/26/18. Dilaudid 4 mg q 4h, for 16 days on 05/05/18. Morphine ER 15 mg BID for 30 days on 05/05/18. Nucyanta ER, 150 mg BID fro 30 days on 03/26/18. -Miralax/Senna for constipation #LOVE on possible CKD; Per PCP, baseline Cr is 1.17 (on 07/2016) -improving gradually -continue to hold Lasix #HTN -c/w amlodipine, ramipril #HLD -c/w rosuvastatin, zetia #CAD/IN s/p CABG s/p 6 stents -c/w asa, plavix #BPH -c/w flomax, proscar #GRACIE -tracheostomy in place. unplugs when sleeps #FEN -No IV fluids -Monitor lytes -Diabetic/Sodium controlled diet #PPx DVT: Heparin sq GI: Protonix 40 mg PO QD #Dispo cont'd monitoring on med-surg. watch sugars closely, have been uncontrolled Visit type - Emergency Visit Emergency Visit: No - New Patient This patient is new to me today: No - Critical Care Critical Care patient: No
[2018-07-23] MEDS: MOMETASONE FUROATE 220 MCG/IH INHALER IH SCH ×2 (14:47→22:21)
--- NOTE | 2018-07-23 17:23 | PN ---
Teaching Attending Note Name of Resident: Haritha Yates ATTENDING PHYSICIAN STATEMENT I saw and evaluated the patient. I reviewed the resident's note and discussed the case with the resident. I agree with the resident's findings and plan as documented. SUBJECTIVE: cont to complain of pain in back and asks for pain meds OBJECTIVE: NAD CV: RRR Lungs: prolonged exp phase, scattered wheezing, and cough. decreased breath sounds at bases Ext : trace edema on legs . ASSESSMENT AND PLAN: 62 y/o man with h/o CAD, s/p CABG and Stents, HTN,severe persistent asthma HLP , back pain, SBO, chronic pancreatitis, BPH, H pylori , GRACIE s/p trach , and other medical problems who presented with cough, CP ,and SOB 1- Acute asthma exacerbation : - cont steroids at BID dosing and try to taper as soon as we could - Cont Nebs - Cont symbicort - follow Peek flow - add mucomyst 2- Acute Diastolic CHF. - hold lasix . renal function improved - cont BP control 3- Uncontrolled DM. - increase levemir to 40 BID . - cont SSI 4- LOVE: hold diuresis 5- HTN: cont Norvasc and ramipril. i 6- Back pain:oxycodone and tylenol only. No IV or other po meds add lidocaine patch dispo : HLOC ASSESSMENT AND PLAN:
[2018-07-23] MEDS: ACETAMINOPHEN 325 MG TABLET (FP) PO PRN (18:08)
[2018-07-23] MEDS: oxyCODONE HCL 5 MG TABLET PO PRN (18:08)
[2018-07-23] MEDS ORDERED: ACETYLCYSTEINE 20% 200MG/ML 4 ML VIAL *FOR ORAL / INH USE ONLY ONE (20:02)
[2018-07-23] MEDS: ARFORMOTEROL TARTRATE 15 MCG/2 ML VIAL NEB SCH (20:35)
[2018-07-23] MEDS: LIDOCAINE PATCH REMOVAL MC SCH (21:10)
[2018-07-23] MEDS ORDERED: ACETYLCYSTEINE 20% 200MG/ML 30 ML VIAL *FOR ORAL / INH USE ONLY NEB SCH (22:00)
[2018-07-23] MEDS: ROSUVASTATIN CA 10 MG TABLET (FP) PO SCH (22:20)
[2018-07-23] MEDS: MONTELUKAST NA 10 MG TABLET PO SCH (22:20)
[2018-07-23] MEDS: EZETIMIBE 10 MG TABLET (FP) PO SCH (22:20)
[2018-07-24] MEDS: INSULIN SLIDING SCALE (NOVOLOG) 1 VIAL SQ SCH ×7 (02:16→23:38)
[2018-07-24] MEDS: oxyCODONE HCL 5 MG TABLET PO PRN ×2 (02:52→09:39)
[2018-07-24] MEDS: ACETAMINOPHEN 325 MG TABLET (FP) PO PRN ×2 (02:53→09:39)
[2018-07-24] MEDS: GABAPENTIN 400 MG CAPSULE (FP) PO SCH ×3 (06:42→23:32)
[2018-07-24] MEDS: HEPARIN NA (PORCINE) 5,000 UNITS/ML 1ML VIAL SQ SCH ×3 (06:43→23:32)
[2018-07-24] MEDS: INSULIN (LEVEMIR) 100 UNITS/ML UNITS SQ SCH ×2 (06:44→23:39)
[2018-07-24] MEDS ORDERED: INSULIN (NOVOLOG) ASPART 100 UNITS/ML 10ML VIAL ONE ×3 (06:50→18:42)
[2018-07-24] MEDS ORDERED: INSULIN (LEVEMIR) 100 UNITS/ML UNITS SQ ONE (06:50)
[2018-07-24] MEDS ORDERED: ACETYLCYSTEINE 20% 200MG/ML 4 ML VIAL *FOR ORAL / INH USE ONLY ONE (07:22)
[2018-07-24 08:37] LABS: BASO % 0.2 % (0-2.0); HEMATOCRIT 35.4 % (35.4-49); LYMPH % 11.6 % (8-40); MEAN CELL VOLUME 80.6 fl (80-96); MEAN PLT VOLUME 7.3 fl (7.5-11.1); MONO % 7.5 % (3.8-10.2); NEUT % 80.7 % (42.8-82.8); PLATELET COUNT 298 K/MM3 (134-434); RBC 4.39 M/mm3 (4.00-5.60); RDW 15.7 % (11.9-15.9); WHITE BLOOD COUNT 15.6 K/mm3 (4.0-10.0)
[2018-07-24] MEDS: ARFORMOTEROL TARTRATE 15 MCG/2 ML VIAL NEB SCH ×2 (09:00→20:23)
[2018-07-24] MEDS: ACETYLCYSTEINE 20% 200MG/ML 4 ML VIAL *FOR ORAL / INH USE ONLY NEB SCH ×2 (09:00→20:23)
[2018-07-24 09:09] LABS: ANION GAP 7 MMOL/L (8-16); BLOOD UREA NITROGEN 35 mg/dL (7-18); CALCIUM 8.5 mg/dL (8.5-10.1); CHLORIDE 105 mmol/L (98-107); CO2 27 mmol/L (21-32); CREATININE 1.3 mg/dL (0.55-1.3); GLUCOSE,RANDOM 216 mg/dL (74-106); MAGNESIUM 3.2 mg/dL (1.8-2.4); PHOSPHOROUS 2.8 mg/dL (2.5-4.9); POTASSIUM 4.4 mmol/L (3.5-5.1); SODIUM 139 mmol/L (136-145)
--- NOTE | 2018-07-24 09:19 | PN ---
Progress Note, Physician History of Present Illness: The patient is a 62 year old male with a significant past medical history of CHF , COPD, ACS, CADM CABG, SBO, BPH, hypertension, hyperlipidemia, pancreatitis, chronic back pain, diabetes, and tracheostomy who presents to the emergency department with shortness of breath for the past few weeks but has beeng etting worse recently. The patient reports some associated intermittent chest pain/ tightness with radiation from right to his left chest. He states that his chest pain is sharp. He reports some associated cough intermittently productive of greenish sputum for about 2 weeks was started on abx by Dr. Rojas. The patient states that he was concerned for pneumonia. The patient also reports complaint of chronic lower extremity edema, headache, and intermittent blurriness of either eye (this is a chronic problem - has had it for a long time and last episode yesterday, vision normal currently, he follows up with Dr. Garcia for the same eye complaints). Pt does endorse chronic back pain with pain raiding down his legs. He denies any other symptoms. He denies any fever, chills, nausea, vomiting, diarrhea, constipation or urinary symptoms. He denies any dizziness. . - Current Medication List Current Medications: Active Medications Acetaminophen (Tylenol -) 325 mg PO Q6H PRN PRN Reason: PAIN SCALE 7-10 Last Admin: 07/24/18 02:53 Dose: 325 mg Acetylcysteine (Mucomyst 20 Oral / Inh Use Only*) 600 mg NEB RBID [facility] Albuterol Sulfate (Ventolin 0.083% Nebulizer Soln -) 1 amp NEB Q4H PRN PRN Reason: SHORT OF BREATH/WHEEZING Amitriptyline HCl (Elavil -) 75 mg PO DAILY [facility] Last Admin: 07/23/18 09:30 Dose: 75 mg Amlodipine Besylate (Norvasc -) 10 mg PO DAILY [facility] Last Admin: 07/23/18 09:29 Dose: 10 mg Arformoterol Tartrate (Brovana (Restricted To Pulmonology/Resp) -) 1 amp NEB RBID [facility] Last Admin: 07/23/18 20:35 Dose: 1 amp Aspirin (Ecotrin -) 81 mg PO DAILY [facility] Last Admin: 07/23/18 09:30 Dose: 81 mg Clopidogrel Bisulfate (Plavix -) 75 mg PO DAILY [facility] Last Admin: 07/23/18 09:29 Dose: 75 mg Ezetimibe (Zetia -) 10 mg PO [facility] Last Admin: 07/23/18 22:20 Dose: 10 mg Finasteride (Proscar -) 5 mg PO DAILY [facility] Last Admin: 07/23/18 09:30 Dose: 5 mg Gabapentin (Neurontin -) 800 mg PO TID [facility] Last Admin: 07/24/18 06:42 Dose: 800 mg Heparin Sodium (Porcine) (Heparin -) 5,000 unit SQ TID [facility] Last Admin: 07/24/18 06:43 Dose: 5,000 unit Insulin Aspart (Novolog Vial Sliding Scale -) 1 vial SQ Q4HPO [facility]; Protocol Last Admin: 07/24/18 06:42 Dose: 9 units Insulin Detemir (Levemir Vial) 40 units SQ BID@0700,2200 [facility] Last Admin: 07/24/18 06:44 Dose: 40 units Lidocaine (Lidoderm Patch -) 1 patch TP DAILY [facility] Methylprednisolone Sodium Succinate (Solu-Medrol -) 40 mg IVPUSH BID [facility] Last Admin: 07/23/18 22:20 Dose: 40 mg Miscellaneous (Lidoderm Patch Removal) 1 each MC DAILY@2200 [facility] Last Admin: 07/23/18 21:10 Dose: Not Given Mometasone Furoate (Asmanex 220mcg -) 2 puff IH BID [facility] Last Admin: 07/23/18 22:21 Dose: 2 puff Montelukast Sodium (Singulair -) 10 mg PO [facility] Last Admin: 07/23/18 22:20 Dose: 10 mg Oxycodone HCl (Roxicodone -) 5 mg PO Q6H PRN PRN Reason: PAIN SCALE 7-10 Last Admin: 07/24/18 02:52 Dose: 5 mg Pantoprazole Sodium (Protonix -) 40 mg PO DAILY [facility] Last Admin: 07/23/18 09:29 Dose: 40 mg Polyethylene Glycol (Miralax (For Daily Use) -) 17 gm PO DAILY PRN PRN Reason: CONSTIPATION Last Admin: 07/23/18 18:07 Dose: 17 gm Ramipril (Altace -) 10 mg PO DAILY [facility] Last Admin: 07/23/18 09:29 Dose: 10 mg Rosuvastatin Calcium (Crestor -) 10 mg PO [facility] Last Admin: 07/23/18 22:20 Dose: 10 mg Senna/Docusate Sodium (Pericolace -) 2 tablet PO HS PRN PRN Reason: CONSTIPATION Tamsulosin HCl (Flomax -) 0.4 mg PO DAILY@0830 [facility] Last Admin: 07/23/18 09:29 Dose: 0.4 mg - Objective Vital Signs: Vital Signs Temperature 97.9 F 07/24/18 06:00 Pulse Rate 66 07/24/18 06:00 Respiratory Rate 22 H 07/24/18 06:00 Blood Pressure 134/69 07/24/18 06:00 O2 Sat by Pulse Oximetry (%) 96 07/23/18 21:00 Eyes: Yes: WNL, Conjunctiva Clear, EOM Intact HENT: Yes: WNL, Atraumatic, Normocephalic Neck: Yes: WNL, Supple, Trachea Midline Cardiovascular: Yes: WNL, Regular Rate and Rhythm Respiratory: Yes: WNL, Regular, Diminished Gastrointestinal: Yes: WNL, Normal Bowel Sounds Genitourinary: Yes: WNL Musculoskeletal: Yes: WNL Extremities: Yes: WNL Edema: No Integumentary: Yes: WNL Neurological: Yes: WNL, Alert, Oriented ...Motor Strength: WNL Psychiatric: Yes: WNL Labs: CBC, BMP 07/24/18 07:30 07/24/18 07:30 INR, PTT INR 0.99 (0.83-1.09) 07/19/18 14:19 Problem List - Problems (1) COPD exacerbation Code(s): J44.1 - CHRONIC OBSTRUCTIVE PULMONARY DISEASE W (ACUTE) EXACERBATION (2) Chest pain Code(s): R07.9 - CHEST PAIN, UNSPECIFIED (3) ASHD (arteriosclerotic heart disease) Code(s): I25.10 - ATHSCL HEART DISEASE OF [place] CORONARY ARTERY W/O ANG PCTRS (4) Abdominal pain Code(s): R10.9 - UNSPECIFIED ABDOMINAL PAIN Qualifiers: Abdominal location: upper abdomen, unspecified Qualified Code(s): R10.10 - Upper abdominal pain, unspecified (5) Acute adjustment disorder with anxiety Code(s): F43.22 - ADJUSTMENT DISORDER WITH ANXIETY (6) Acute on chronic diastolic (congestive) heart failure Code(s): I50.33 - ACUTE ON CHRONIC DIASTOLIC (CONGESTIVE) HEART FAILURE (7) Acute on chronic systolic right heart failure Code(s): I50.23 - ACUTE ON CHRONIC SYSTOLIC (CONGESTIVE) HEART FAILURE (8) Anemia Code(s): D64.9 - ANEMIA, UNSPECIFIED (9) Anxiety Code(s): F41.9 - ANXIETY DISORDER, UNSPECIFIED (10) Arrhythmia Code(s): I49.9 - CARDIAC ARRHYTHMIA, UNSPECIFIED (11) Asthma Code(s): J45.909 - UNSPECIFIED ASTHMA, UNCOMPLICATED Qualifiers: Asthma severity: unspecified severity (12) Asthma exacerbation Code(s): J45.901 - UNSPECIFIED ASTHMA WITH (ACUTE) EXACERBATION (13) Asthma exacerbation in COPD Code(s): J44.1 - CHRONIC OBSTRUCTIVE PULMONARY DISEASE W (ACUTE) EXACERBATION; J45.901 - UNSPECIFIED ASTHMA WITH (ACUTE) EXACERBATION (14) Asthma with bronchitis and status asthmaticus Code(s): J45.902 - UNSPECIFIED ASTHMA WITH STATUS ASTHMATICUS Qualifiers: Asthma severity: severe persistent Qualified Code(s): J45.52 - Severe persistent asthma with status asthmaticus (15) Atypical chest pain Code(s): R07.89 - OTHER CHEST PAIN (16) BPH (benign prostatic hyperplasia) Code(s): N40.0 - BENIGN PROSTATIC HYPERPLASIA WITHOUT LOWER URINRY TRACT SYMP (17) Bronchitis Code(s): J40 - BRONCHITIS, NOT SPECIFIED ACUTE OR CHRONIC (18) CHF (congestive heart failure) Code(s): I50.9 - HEART FAILURE, UNSPECIFIED (19) COPD (chronic obstructive pulmonary disease) Code(s): J44.9 - CHRONIC OBSTRUCTIVE PULMONARY DISEASE, UNSPECIFIED (20) Cervical disc disease Code(s): M50.90 - CERVICAL DISC DISORDER, UNSP, UNSPECIFIED CERVICAL REGION (21) Cervical radiculopathy Code(s): M54.12 - RADICULOPATHY, CERVICAL REGION (22) Cervical vertebral fusion Code(s): M43.22 - FUSION OF SPINE, CERVICAL REGION (23) Cervicalgia Code(s): M54.2 - CERVICALGIA (24) Chest pain made worse by breathing Code(s): R07.1 - CHEST PAIN ON BREATHING (25) Chronic back pain Code(s): M54.9 - DORSALGIA, UNSPECIFIED; G89.29 - OTHER CHRONIC PAIN Qualifiers: (26) Chronic bronchitis with COPD (chronic obstructive pulmonary disease) Code(s): J44.9 - CHRONIC OBSTRUCTIVE PULMONARY DISEASE, UNSPECIFIED (27) Chronic diastolic (congestive) heart failure Code(s): I50.32 - CHRONIC DIASTOLIC (CONGESTIVE) HEART FAILURE (28) Chronic pain Code(s): G89.29 - OTHER CHRONIC PAIN Qualifiers: Chronic pain type: chronic pain syndrome Qualified Code(s): G89.4 - Chronic pain syndrome (29) Chronic pain following surgery or procedure Code(s): G89.28 - OTHER CHRONIC POSTPROCEDURAL PAIN (30) Chronic pain with drug dependence Code(s): G89.29 - OTHER CHRONIC PAIN; F19.20 - OTHER PSYCHOACTIVE SUBSTANCE DEPENDENCE, UNCOMPLICATED (31) Chronic pancreatitis Code(s): K86.1 - OTHER CHRONIC PANCREATITIS Qualifiers: Pancreatitis type: unspecified pancreatitis type Qualified Code(s): K86.1 - Other chronic pancreatitis (32) Constipation Code(s): K59.00 - CONSTIPATION, UNSPECIFIED (33) 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 Code(s): E10.8 - TYPE 1 DIABETES MELLITUS WITH UNSPECIFIED COMPLICATIONS (34) Coronary artery disease Code(s): I25.10 - ATHSCL HEART DISEASE OF [place] CORONARY ARTERY W/O ANG PCTRS (35) Coronary artery disease involving autologous artery coronary bypass graft Code(s): I25.810 - ATHEROSCLEROSIS OF CABG W/O ANGINA PECTORIS (36) Diabetes mellitus Code(s): E11.9 - TYPE 2 DIABETES MELLITUS WITHOUT COMPLICATIONS Qualifiers: Diabetes mellitus type: type 2 Diabetes mellitus complication detail: with unspecified neuropathy (37) 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 Code(s): E10.51 - TYPE 1 DIABETES W DIABETIC PERIPHERAL ANGIOPATH W/O GANGRENE; I70.209 - UNSP ATHSCL [place] ARTERIES OF EXTREMITIES, UNSP EXTREMITY (38) Diabetes mellitus, insulin dependent (IDDM), uncontrolled Code(s): E10.65 - TYPE 1 DIABETES MELLITUS WITH HYPERGLYCEMIA (39) Diarrhea Code(s): R19.7 - DIARRHEA, UNSPECIFIED Qualifiers: Diarrhea type: functional diarrhea Qualified Code(s): K59.1 - Functional diarrhea (40) Elevated lipase Code(s): R74.8 - ABNORMAL LEVELS OF OTHER SERUM ENZYMES (41) Esophagitis determined by endoscopy Code(s): K20.9 - ESOPHAGITIS, UNSPECIFIED (42) Fecal incontinence Code(s): R15.9 - FULL INCONTINENCE OF FECES (43) Fecal incontinence alternating with constipation Code(s): R15.9 - FULL INCONTINENCE OF FECES; K59.00 - CONSTIPATION, UNSPECIFIED (44) Fever of unknown origin Code(s): R50.9 - FEVER, UNSPECIFIED (45) Flank pain Code(s): R10.9 - UNSPECIFIED ABDOMINAL PAIN (46) Fungal esophagitis Code(s): K20.8 - OTHER ESOPHAGITIS (47) Fusion of lumbar spine Code(s): M43.26 - FUSION OF SPINE, LUMBAR REGION (48) Gross hematuria Code(s): R31.0 - GROSS HEMATURIA (49) H/O cervical spine surgery Code(s): Z98.89 - OTHER SPECIFIED POSTPROCEDURAL STATES * DO NOT USE * (50) H/O heart artery stent Code(s): Z95.5 - PRESENCE OF CORONARY ANGIOPLASTY IMPLANT AND GRAFT (51) H/O umbilical hernia repair Code(s): Z98.890 - OTHER SPECIFIED POSTPROCEDURAL STATES; Z87.19 - PERSONAL HISTORY OF OTHER DISEASES OF THE DIGESTIVE SYSTEM (52) Headache Code(s): R51 - HEADACHE (53) Hematuria Code(s): R31.9 - HEMATURIA, UNSPECIFIED (54) Hx of CABG Code(s): Z95.1 - PRESENCE OF AORTOCORONARY BYPASS GRAFT (55) Hyperlipidemia Code(s): E78.5 - HYPERLIPIDEMIA, UNSPECIFIED (56) Hypertension Code(s): I10 - ESSENTIAL (PRIMARY) HYPERTENSION Qualifiers: Hypertension type: essential hypertension Qualified Code(s): I10 - Essential (primary) hypertension (57) Hypertension associated with diabetes Code(s): E11.59 - TYPE 2 DIABETES MELLITUS WITH OTH CIRCULATORY COMPLICATIONS; I10 - ESSENTIAL (PRIMARY) HYPERTENSION (58) Hypokalemia Code(s): E87.6 - HYPOKALEMIA (59) IPMN (intraductal papillary mucinous neoplasm) Code(s): D49.0 - NEOPLASM OF UNSPECIFIED BEHAVIOR OF DIGESTIVE SYSTEM (60) Lactic acid increased Code(s): E87.2 - ACIDOSIS (61) Leukocytosis Code(s): D72.829 - ELEVATED WHITE BLOOD CELL COUNT, UNSPECIFIED (62) Leukocytosis Code(s): D72.829 - ELEVATED WHITE BLOOD CELL COUNT, UNSPECIFIED (63) Myocardial infarct Code(s): I21.3 - ST ELEVATION (STEMI) MYOCARDIAL INFARCTION OF UNSP SITE (64) Nausea Code(s): R11.0 - NAUSEA (65) Nausea & vomiting Code(s): R11.2 - NAUSEA WITH VOMITING, UNSPECIFIED Qualifiers: Vomiting type: unspecified Vomiting Intractability: unspecified Qualified Code(s): R11.2 - Nausea with vomiting, unspecified (66) Neutropenia Code(s): D70.9 - NEUTROPENIA, UNSPECIFIED Qualifiers: Neutropenia type: unspecified Qualified Code(s): D70.9 - Neutropenia, unspecified (67) GRACIE (obstructive sleep apnea) Code(s): G47.33 - OBSTRUCTIVE SLEEP APNEA (ADULT) (PEDIATRIC) (68) Opiate dependence Code(s): F11.20 - OPIOID DEPENDENCE, UNCOMPLICATED (69) Pancreatitis Code(s): K85.9 - ACUTE PANCREATITIS, UNSPECIFIED * DO NOT USE * Qualifiers: Chronicity: acute Pancreatitis type: other (70) Pancreatitis, acute Code(s): K85.9 - ACUTE PANCREATITIS, UNSPECIFIED * DO NOT USE * Qualifiers: Pancreatitis type: unspecified pancreatitis type (71) Paroxysmal SVT (supraventricular tachycardia) Code(s): I47.1 - SUPRAVENTRICULAR TACHYCARDIA (72) Pneumonia Code(s): J18.9 - PNEUMONIA, UNSPECIFIED ORGANISM Qualifiers: (73) Pre-ulcerative corn or callous Code(s): L84 - CORNS AND CALLOSITIES (74) Pulmonary hypertension Code(s): I27.2 - OTHER SECONDARY PULMONARY HYPERTENSION * DO NOT USE * (75) Rectal bleeding Code(s): K62.5 - HEMORRHAGE OF ANUS AND RECTUM (76) Renal calculus, left Code(s): N20.0 - CALCULUS OF KIDNEY (77) Renal insufficiency Code(s): N28.9 - DISORDER OF KIDNEY AND URETER, UNSPECIFIED (78) Right leg pain Code(s): M79.604 - PAIN IN RIGHT LEG (79) S/P laparotomy Code(s): Z98.890 - OTHER SPECIFIED POSTPROCEDURAL STATES (80) S/P lumbar spinal fusion Code(s): Z98.1 - ARTHRODESIS STATUS (81) SBO (small bowel obstruction) Code(s): K56.609 - UNSP INTESTNL OBST, UNSP TO PARTIAL VERSUS COMPLETE OBST (82) Shortness of breath Code(s): R06.02 - SHORTNESS OF BREATH (83) Sleep apnea Code(s): G47.30 - SLEEP APNEA, UNSPECIFIED (84) Status post spinal surgery Code(s): Z98.89 - OTHER SPECIFIED POSTPROCEDURAL STATES * DO NOT USE * (85) Tracheostomy in place Code(s): Z98.89 - OTHER SPECIFIED POSTPROCEDURAL STATES * DO NOT USE * (86) Type 2 diabetes mellitus with diabetic neuropathic arthropathy Code(s): E11.610 - TYPE 2 DIABETES MELLITUS W DIABETIC NEUROPATHIC ARTHROPATHY (87) Type 2 diabetes mellitus with diabetic neuropathy Code(s): E11.40 - TYPE 2 DIABETES MELLITUS WITH DIABETIC NEUROPATHY, UNSP (88) Type 2 diabetes mellitus with hyperosmolarity without nonketotic hyperglycemic-hyperosmolar coma (nk[facility]) Code(s): E11.00 - TYPE 2 DIAB W HYPROSM W/O NONKET HYPRGLY-HYPROS COMA ([facility]) (89) Umbilical hernia Code(s): K42.9 - UMBILICAL HERNIA WITHOUT OBSTRUCTION OR GANGRENE Qualifiers: Obstruction and gangrene presence: without obstruction or gangrene Qualified Code(s): K42.9 - Umbilical hernia without obstruction or gangrene Assessment/Plan - Problems (1) COPD exacerbation Assessment/Plan: O2, bronchodilators, steroids per glass vial filler. Code(s): J44.1 - CHRONIC OBSTRUCTIVE PULMONARY DISEASE W (ACUTE) EXACERBATION (2) ASHD (arteriosclerotic heart disease) Code(s): I25.10 - ATHSCL HEART DISEASE OF [place] CORONARY ARTERY W/O ANG PCTRS (3) Abdominal pain Code(s): R10.9 - UNSPECIFIED ABDOMINAL PAIN Qualifiers: Abdominal location: upper abdomen, unspecified Qualified Code(s): R10.10 - Upper abdominal pain, unspecified (4) Acute on chronic diastolic (congestive) heart failure Assessment/Plan: On ACEI and amlodipine; furosemide prn (held due to renal condition; Cr was 1.1 in late March; now 1.7). F/u daily wt, Is and Os, BUN/Cr, electrolytes. Code(s): I50.33 - ACUTE ON CHRONIC DIASTOLIC (CONGESTIVE) HEART FAILURE (5) Anxiety Code(s): F41.9 - ANXIETY DISORDER, UNSPECIFIED (6) Asthma Code(s): J45.909 - UNSPECIFIED ASTHMA, UNCOMPLICATED Qualifiers: Asthma severity: unspecified severity (7) Atypical chest pain Assessment/Plan: associated with episodes of dyspnea. 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) Code(s): R07.89 - OTHER CHEST PAIN (8) Cervical disc disease Code(s): M50.90 - CERVICAL DISC DISORDER, UNSP, UNSPECIFIED CERVICAL REGION (9) Diabetes mellitus, insulin dependent (IDDM), uncontrolled Code(s): E10.65 - TYPE 1 DIABETES MELLITUS WITH HYPERGLYCEMIA (10) H/O heart artery stent Code(s): Z95.5 - PRESENCE OF CORONARY ANGIOPLASTY IMPLANT AND GRAFT (11) H/O umbilical hernia repair Code(s): Z98.890 - OTHER SPECIFIED POSTPROCEDURAL STATES; Z87.19 - PERSONAL HISTORY OF OTHER DISEASES OF THE DIGESTIVE SYSTEM (12) GRACIE (obstructive sleep apnea) Code(s): G47.33 - OBSTRUCTIVE SLEEP APNEA (ADULT) (PEDIATRIC) (13) Hypertension Assessment/Plan: on ramipril 10 mg/d (CHF; HTN; DM). Increased amlodipine to 10 mg/d (pt has been on this dose at home). Code(s): I10 - ESSENTIAL (PRIMARY) HYPERTENSION Qualifiers: Hypertension type: essential hypertension Qualified Code(s): I10 - Essential (primary) hypertension (14) Hyperlipidemia Code(s): E78.5 - HYPERLIPIDEMIA, UNSPECIFIED (15) Obesity Code(s): E66.9 - OBESITY, UNSPECIFIED (16) Acute adjustment disorder with anxiety Code(s): F43.22 - ADJUSTMENT DISORDER WITH ANXIETY
[2018-07-24] MEDS ORDERED: PT OWN MED DRAWER 7, Y5N ONE (09:35)
[2018-07-24] MEDS: methylPREDNISolone NA SUCC 40 MG/1 ML VIAL IVPUSH SCH ×2 (09:38→23:32)
[2018-07-24] MEDS: TAMSULOSIN HCL 0.4 MG CAP PO SCH (09:38)
[2018-07-24] MEDS: amLODIPine BESYLATE 10 MG TABLET (FP) PO SCH (09:38)
[2018-07-24] MEDS: RAMIPRIL 5 MG CAPSULE (FP) PO SCH (09:39)
[2018-07-24] MEDS: PANTOPRAZOLE 40 MG TABLET (FP) PO SCH (09:39)
[2018-07-24] MEDS: ASPIRIN COATED 81 MG TABLET.EC PO SCH (09:39)
[2018-07-24] MEDS: CLOPIDOGREL BISULFATE 75 MG TABLET (FP) PO SCH (09:39)
[2018-07-24] MEDS: FINASTERIDE 5 MG TABLET (FP) PO SCH (09:40)
[2018-07-24] MEDS: LIDOCAINE 5% TOPICAL PATCH TP SCH (09:40)
[2018-07-24] MEDS: MOMETASONE FUROATE 220 MCG/IH INHALER IH SCH ×2 (09:44→23:33)
[2018-07-24] MEDS: AMITRIPTYLINE HCL 75 MG TABLET PO SCH (09:45)
[2018-07-24] MEDS ORDERED: ACETYLCYSTEINE 20% 200MG/ML 4 ML VIAL *FOR ORAL / INH USE ONLY NEB SCH (10:00)
[2018-07-24 11:17] LABS: ACANTHOCYTES 0; ANISOCYTOSIS 0; HELMET CELLS 0; HOWELL-JOLLY BODIES 0; MACROCYTOSIS 0; OVALOCYTE 0; PLATELET ESTIMATE NORMAL; ROULEAU 0; SICKELED CELLS 0; TARGET CELLS 0; TEAR DROP CELLS 0; TOXIC GRANULATION 0
--- NOTE | 2018-07-24 12:24 | PN ---
Progress Note, Physician History of Present Illness: pulmonary alert,less congested ,+ cough - Current Medication List Current Medications: Active Medications Acetaminophen (Tylenol -) 325 mg PO Q6H PRN PRN Reason: PAIN SCALE 7-10 Last Admin: 07/24/18 09:39 Dose: 325 mg Acetylcysteine (Mucomyst 20 Oral / Inh Use Only*) 600 mg NEB RBID [facility] Last Admin: 07/24/18 09:00 Dose: 600 mg Albuterol Sulfate (Ventolin 0.083% Nebulizer Soln -) 1 amp NEB Q4H PRN PRN Reason: SHORT OF BREATH/WHEEZING Amitriptyline HCl (Elavil -) 75 mg PO DAILY [facility] Last Admin: 07/24/18 09:45 Dose: 75 mg Amlodipine Besylate (Norvasc -) 10 mg PO DAILY [facility] Last Admin: 07/24/18 09:38 Dose: 10 mg Arformoterol Tartrate (Brovana (Restricted To Pulmonology/Resp) -) 1 amp NEB RBID [facility] Last Admin: 07/24/18 09:00 Dose: 1 amp Aspirin (Ecotrin -) 81 mg PO DAILY [facility] Last Admin: 07/24/18 09:39 Dose: 81 mg Clopidogrel Bisulfate (Plavix -) 75 mg PO DAILY [facility] Last Admin: 07/24/18 09:39 Dose: 75 mg Ezetimibe (Zetia -) 10 mg PO HS [facility] Last Admin: 07/23/18 22:20 Dose: 10 mg Finasteride (Proscar -) 5 mg PO DAILY [facility] Last Admin: 07/24/18 09:40 Dose: 5 mg Gabapentin (Neurontin -) 800 mg PO TID [facility] Last Admin: 07/24/18 06:42 Dose: 800 mg Heparin Sodium (Porcine) (Heparin -) 5,000 unit SQ TID [facility] Last Admin: 07/24/18 06:43 Dose: 5,000 unit Insulin Aspart (Novolog Vial Sliding Scale -) 1 vial SQ Q4HPO [facility]; Protocol Last Admin: 07/24/18 11:37 Dose: 9 units Insulin Detemir (Levemir Vial) 40 units SQ BID@0700,2200 [facility] Last Admin: 07/24/18 06:44 Dose: 40 units Lidocaine (Lidoderm Patch -) 1 patch TP DAILY [facility] Last Admin: 07/24/18 09:40 Dose: 1 patch Methylprednisolone Sodium Succinate (Solu-Medrol -) 40 mg IVPUSH BID [facility] Last Admin: 07/24/18 09:38 Dose: 40 mg Miscellaneous (Lidoderm Patch Removal) 1 each MC DAILY@2200 [facility] Last Admin: 07/23/18 21:10 Dose: Not Given Mometasone Furoate (Asmanex 220mcg -) 2 puff IH BID [facility] Last Admin: 07/24/18 09:44 Dose: 2 puff Montelukast Sodium (Singulair -) 10 mg PO HS [facility] Last Admin: 07/23/18 22:20 Dose: 10 mg Oxycodone HCl (Roxicodone -) 5 mg PO Q6H PRN PRN Reason: PAIN SCALE 7-10 Last Admin: 07/24/18 09:39 Dose: 5 mg Pantoprazole Sodium (Protonix -) 40 mg PO DAILY [facility] Last Admin: 07/24/18 09:39 Dose: 40 mg Polyethylene Glycol (Miralax (For Daily Use) -) 17 gm PO DAILY PRN PRN Reason: CONSTIPATION Last Admin: 07/23/18 18:07 Dose: 17 gm Ramipril (Altace -) 10 mg PO DAILY [facility] Last Admin: 07/24/18 09:39 Dose: 10 mg Rosuvastatin Calcium (Crestor -) 10 mg PO HS [facility] Last Admin: 07/23/18 22:20 Dose: 10 mg Senna/Docusate Sodium (Pericolace -) 2 tablet PO HS PRN PRN Reason: CONSTIPATION Tamsulosin HCl (Flomax -) 0.4 mg PO DAILY@0830 [facility] Last Admin: 07/24/18 09:38 Dose: 0.4 mg - Objective Vital Signs: Vital Signs Temperature 97.4 F L 07/24/18 11:00 Pulse Rate 89 07/24/18 11:00 Respiratory Rate 22 H 07/24/18 11:00 Blood Pressure 154/88 07/24/18 11:00 O2 Sat by Pulse Oximetry (%) 96 07/23/18 21:00 Constitutional: Yes: Well Nourished, Calm Eyes: Yes: WNL HENT: Yes: WNL Neck: Yes: WNL Cardiovascular: Yes: Regular Rate and Rhythm, S1, S2 Respiratory: Yes: Wheezes (bilateral wheezes) Gastrointestinal: Yes: Normal Bowel Sounds, Soft Extremities: Yes: WNL Edema: No Labs: CBC, BMP 07/24/18 07:30 07/24/18 07:30 INR, PTT INR 0.99 (0.83-1.09) 07/19/18 14:19 Problem List - Problems (1) COPD exacerbation Code(s): J44.1 - CHRONIC OBSTRUCTIVE PULMONARY DISEASE W (ACUTE) EXACERBATION (2) Chest pain Code(s): R07.9 - CHEST PAIN, UNSPECIFIED (3) ASHD (arteriosclerotic heart disease) Code(s): I25.10 - ATHSCL HEART DISEASE OF [place] CORONARY ARTERY W/O ANG PCTRS (4) Asthma exacerbation Code(s): J45.901 - UNSPECIFIED ASTHMA WITH (ACUTE) EXACERBATION (5) CHF (congestive heart failure) Code(s): I50.9 - HEART FAILURE, UNSPECIFIED (6) 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 Code(s): E10.8 - TYPE 1 DIABETES MELLITUS WITH UNSPECIFIED COMPLICATIONS (7) Coronary artery disease involving autologous artery coronary bypass graft Code(s): I25.810 - ATHEROSCLEROSIS OF CABG W/O ANGINA PECTORIS (8) H/O cervical spine surgery Code(s): Z98.89 - OTHER SPECIFIED POSTPROCEDURAL STATES * DO NOT USE * (9) H/O heart artery stent Code(s): Z95.5 - PRESENCE OF CORONARY ANGIOPLASTY IMPLANT AND GRAFT (10) Hx of CABG Code(s): Z95.1 - PRESENCE OF AORTOCORONARY BYPASS GRAFT (11) Hyperlipidemia Code(s): E78.5 - HYPERLIPIDEMIA, UNSPECIFIED (12) Hypertension Code(s): I10 - ESSENTIAL (PRIMARY) HYPERTENSION Qualifiers: Hypertension type: essential hypertension Qualified Code(s): I10 - Essential (primary) hypertension (13) Pancreatitis Code(s): K85.9 - ACUTE PANCREATITIS, UNSPECIFIED * DO NOT USE * Qualifiers: Chronicity: acute Pancreatitis type: other (14) Renal insufficiency Code(s): N28.9 - DISORDER OF KIDNEY AND URETER, UNSPECIFIED Assessment/Plan IMP SEVERE CHRONIC PERSISTENT ASTHMA WITH ACUTE EXACERBATION IMPROVING ASHD S/P CABG,S/P STENTS DM HTN CHRONIC PAIN H/O PANCREATITIS,PANCREATIC CYST OSAS S/P TRACH BPH RML NODULE STABLE ACUTE ON CHRONIC KIDNEY DISEASE PLAN IV STEROIDS INHALED BRONCHODILATORS O2 NEEDED MONITOR PEAK FLOW MONITOR LYTES,RENAL FUNCTION,BLOOD SUGARS GLYCEMIC CONTROL DR VANESSA Problem List - Problems (1) COPD exacerbation Code(s): J44.1 - CHRONIC OBSTRUCTIVE PULMONARY DISEASE W (ACUTE) EXACERBATION (2) Chest pain Code(s): R07.9 - CHEST PAIN, UNSPECIFIED (3) ASHD (arteriosclerotic heart disease) Code(s): I25.10 - ATHSCL HEART DISEASE OF [place] CORONARY ARTERY W/O ANG PCTRS (4) Asthma exacerbation Code(s): J45.901 - UNSPECIFIED ASTHMA WITH (ACUTE) EXACERBATION (5) CHF (congestive heart failure) Code(s): I50.9 - HEART FAILURE, UNSPECIFIED (6) 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 Code(s): E10.8 - TYPE 1 DIABETES MELLITUS WITH UNSPECIFIED COMPLICATIONS (7) Coronary artery disease involving autologous artery coronary bypass graft Code(s): I25.810 - ATHEROSCLEROSIS OF CABG W/O ANGINA PECTORIS (8) H/O cervical spine surgery Code(s): Z98.89 - OTHER SPECIFIED POSTPROCEDURAL STATES * DO NOT USE * (9) H/O heart artery stent Code(s): Z95.5 - PRESENCE OF CORONARY ANGIOPLASTY IMPLANT AND GRAFT (10) Hx of CABG Code(s): Z95.1 - PRESENCE OF AORTOCORONARY BYPASS GRAFT (11) Hyperlipidemia Code(s): E78.5 - HYPERLIPIDEMIA, UNSPECIFIED (12) Hypertension Code(s): I10 - ESSENTIAL (PRIMARY) HYPERTENSION Qualifiers: Hypertension type: essential hypertension Qualified Code(s): I10 - Essential (primary) hypertension (13) Pancreatitis Code(s): K85.9 - ACUTE PANCREATITIS, UNSPECIFIED * DO NOT USE * Qualifiers: Chronicity: acute Pancreatitis type: other (14) Renal insufficiency Code(s): N28.9 - DISORDER OF KIDNEY AND URETER, UNSPECIFIED
--- NOTE | 2018-07-24 16:07 | PN ---
Progress Note (short form) - Note Progress Note: Subjective: No fever or chills. breathing has improved . no other complaints Objective: Vital Signs: Last Vital Signs Temp Pulse Resp BP Pulse Ox 97.9 F 81 22 H 155/78 96 07/24/18 15:18 07/24/18 15:18 07/24/18 15:18 07/24/18 15:18 07/24/18 09:00 Laboratory Results - last 24 hr 07/22/18 07/22/18 07/23/18 19:23 20:13 17:57 WBC RBC Hgb Hct MCV MCH MCHC RDW Plt Count MPV Absolute Neuts (auto) Neutrophils % Neutrophils % (Manual) Band Neutrophils % Lymphocytes % Lymphocytes % (Manual) Monocytes % Monocytes % (Manual) Eosinophils % Eosinophils % (Manual) Basophils % Basophils % (Manual) Myelocytes % (Man) Promyelocytes % (Man) Blast Cells % (Manual) Nucleated RBC % Metamyelocytes Hypochromia Toxic Granulation Dohle Bodies Platelet Estimate Polychromasia Poikilocytosis Basophilic Stippling Anisocytosis Microcytosis Macrocytosis Spherocytes Sickle Cells Target Cells Tear Drop Cells Ovalocytes Stomatocytes Helmet Cells Minor-[place] Bodies [place] Rings Marine Cells Acanthocytes (Spur) Rouleaux Fragmented RBCs Schistocytes Sodium Potassium Chloride Carbon Dioxide Anion Gap BUN Creatinine Creat Clearance w eGFR POC Glucometer > 600 > 600 228 Random Glucose Calcium Phosphorus Magnesium 07/23/18 07/24/18 07/24/18 22:12 02:15 06:41 WBC RBC Hgb Hct MCV MCH MCHC RDW Plt Count MPV Absolute Neuts (auto) Neutrophils % Neutrophils % (Manual) Band Neutrophils % Lymphocytes % Lymphocytes % (Manual) Monocytes % Monocytes % (Manual) Eosinophils % Eosinophils % (Manual) Basophils % Basophils % (Manual) Myelocytes % (Man) Promyelocytes % (Man) Blast Cells % (Manual) Nucleated RBC % Metamyelocytes Hypochromia Toxic Granulation Dohle Bodies Platelet Estimate Polychromasia Poikilocytosis Basophilic Stippling Anisocytosis Microcytosis Macrocytosis Spherocytes Sickle Cells Target Cells Tear Drop Cells Ovalocytes Stomatocytes Helmet Cells Minor-[place] Bodies [place] Rings Marine Cells Acanthocytes (Spur) Rouleaux Fragmented RBCs Schistocytes Sodium Potassium Chloride Carbon Dioxide Anion Gap BUN Creatinine Creat Clearance w eGFR POC Glucometer 470 336 257 Random Glucose Calcium Phosphorus Magnesium 07/24/18 07/24/18 07/24/18 07:30 07:30 11:21 WBC 15.6 H RBC 4.39 Hgb 11.0 L Hct 35.4 MCV 80.6 MCH 25.0 L MCHC 31.0 L RDW 15.7 Plt Count 298 MPV 7.3 L Absolute Neuts (auto) 12.6 H Neutrophils % 80.7 Neutrophils % (Manual) 68.3 D Band Neutrophils % 1.0 Lymphocytes % 11.6 D Lymphocytes % (Manual) 21.8 D Monocytes % 7.5 Monocytes % (Manual) 7 Eosinophils % 0.0 Eosinophils % (Manual) 0.0 D Basophils % 0.2 Basophils % (Manual) 0.0 Myelocytes % (Man) 0 Promyelocytes % (Man) 0 Blast Cells % (Manual) 0 Nucleated RBC % 0 Metamyelocytes 0 Hypochromia 0 Toxic Granulation 0 Dohle Bodies 0 Platelet Estimate Normal Polychromasia 0 Poikilocytosis 0 Basophilic Stippling 0 Anisocytosis 0 Microcytosis 0 Macrocytosis 0 Spherocytes 0 Sickle Cells 0 Target Cells 0 Tear Drop Cells 0 Ovalocytes 0 Stomatocytes 0 Helmet Cells 0 Minor-[place] Bodies 0 [place] Rings 0 [place] Cells 0 Acanthocytes (Spur) 0 Rouleaux 0 Fragmented RBCs 0 Schistocytes 0 Sodium 139 Potassium 4.4 Chloride 105 Carbon Dioxide 27 Anion Gap 7 L BUN 35 H Creatinine 1.3 Creat Clearance w eGFR 55.58 POC Glucometer 218 Random Glucose 216 H Calcium 8.5 Phosphorus 2.8 Magnesium 3.2 H Physical Exam: NAD CV: RRR Lungs: prolonged exp phase, improved wheezing, and cough. decreased breath sounds at bases Ext : trace edema on legs . ASSESSMENT AND PLAN: 62 y/o man with h/o CAD, s/p CABG and Stents, HTN,severe persistent asthma HLP , back pain, SBO, chronic pancreatitis, BPH, H pylori , GRACIE s/p trach , and other medical problems who presented with cough, CP ,and SOB 1- Acute asthma exacerbation : - cont steroids at BID dosing and try to taper as soon as we could - Cont Nebs - Cont symbicort - follow Peek flow - cont mucomyst 2- Acute Diastolic CHF. resolved -resume home dose po lasix tomorrow - cont BP control 3- Uncontrolled DM. - finally sugar is better controlled. - cont levemir 40 BID . - cont SSI 4- LOVE: resolved with holding lasix Monitor 5- HTN: cont Norvasc and ramipril. 6- Back pain:oxycodone and tylenol only. No IV or other po meds cont lidocaine patch dispo : HLOC Visit type - Emergency Visit Emergency Visit: Yes ED Registration Date: 07/20/18 Care time: The patient presented to the Emergency Department on the above date and was hospitalized for further evaluation of their emergent condition. - New Patient This patient is new to me today: No - Critical Care Critical Care patient: No
[2018-07-24] MEDS: EZETIMIBE 10 MG TABLET (FP) PO SCH (23:32)
[2018-07-24] MEDS: ROSUVASTATIN CA 10 MG TABLET (FP) PO SCH (23:32)
[2018-07-24] MEDS: MONTELUKAST NA 10 MG TABLET PO SCH (23:32)
[2018-07-24] MEDS: LIDOCAINE PATCH REMOVAL MC SCH (23:40)
[2018-07-25] MEDS: INSULIN SLIDING SCALE (NOVOLOG) 1 VIAL SQ SCH ×6 (02:51→23:05)
[2018-07-25] MEDS: oxyCODONE HCL 5 MG TABLET PO PRN ×3 (02:51→17:34)
[2018-07-25] MEDS: ACETAMINOPHEN 325 MG TABLET (FP) PO PRN ×3 (02:52→17:35)
[2018-07-25] MEDS: GABAPENTIN 400 MG CAPSULE (FP) PO SCH ×3 (06:51→23:02)
[2018-07-25] MEDS: HEPARIN NA (PORCINE) 5,000 UNITS/ML 1ML VIAL SQ SCH ×3 (06:51→23:03)
[2018-07-25] MEDS: INSULIN (LEVEMIR) 100 UNITS/ML UNITS SQ SCH ×2 (06:54→23:10)
[2018-07-25 07:35] LABS: BASO % 0.2 % (0-2.0); EOS % 0.1 % (0-4.5); HEMATOCRIT 35.2 % (35.4-49); MCH 25.2 pg (25.7-33.7); MCHC 31.4 g/dl (32.0-35.9); MEAN CELL VOLUME 80.3 fl (80-96); MEAN PLT VOLUME 7.6 fl (7.5-11.1); NEUT % 80.7 % (42.8-82.8); PLATELET COUNT 303 K/MM3 (134-434); RBC 4.39 M/mm3 (4.00-5.60); RDW 15.4 % (11.9-15.9); WHITE BLOOD COUNT 14.8 K/mm3 (4.0-10.0)
[2018-07-25] MEDS: ACETYLCYSTEINE 20% 200MG/ML 4 ML VIAL *FOR ORAL / INH USE ONLY NEB SCH ×2 (07:35→19:55)
[2018-07-25] MEDS: ARFORMOTEROL TARTRATE 15 MCG/2 ML VIAL NEB SCH ×2 (07:35→19:55)
[2018-07-25 08:11] LABS: ANION GAP 8 MMOL/L (8-16); BLOOD UREA NITROGEN 34 mg/dL (7-18); CALCIUM 8.7 mg/dL (8.5-10.1); CHLORIDE 105 mmol/L (98-107); CO2 26 mmol/L (21-32); CREATININE 1.2 mg/dL (0.55-1.3); GLUCOSE,RANDOM 236 mg/dL (74-106); POTASSIUM 4.6 mmol/L (3.5-5.1); SODIUM 139 mmol/L (136-145)
[2018-07-25 10:21] LABS: ANISOCYTOSIS 3+; MACROCYTOSIS 0; PLATELET ESTIMATE NORMAL
[2018-07-25] MEDS ORDERED: PT OWN MED DRAWER 7, Y5N ONE (10:54)
[2018-07-25] MEDS: RAMIPRIL 5 MG CAPSULE (FP) PO SCH (10:56)
[2018-07-25] MEDS: TAMSULOSIN HCL 0.4 MG CAP PO SCH (10:56)
[2018-07-25] MEDS: CLOPIDOGREL BISULFATE 75 MG TABLET (FP) PO SCH (10:56)
[2018-07-25] MEDS: PANTOPRAZOLE 40 MG TABLET (FP) PO SCH (10:56)
[2018-07-25] MEDS: ASPIRIN COATED 81 MG TABLET.EC PO SCH (10:56)
[2018-07-25] MEDS: amLODIPine BESYLATE 10 MG TABLET (FP) PO SCH (10:56)
[2018-07-25] MEDS: FINASTERIDE 5 MG TABLET (FP) PO SCH (10:57)
[2018-07-25] MEDS: AMITRIPTYLINE HCL 75 MG TABLET PO SCH (10:58)
[2018-07-25] MEDS: MOMETASONE FUROATE 220 MCG/IH INHALER IH SCH ×2 (10:58→23:06)
[2018-07-25] MEDS: LIDOCAINE 5% TOPICAL PATCH TP SCH (10:58)
[2018-07-25] MEDS: methylPREDNISolone NA SUCC 40 MG/1 ML VIAL IVPUSH SCH ×2 (10:58→23:03)
--- NOTE | 2018-07-25 14:14 | PN ---
Progress Note (short form) - Note Progress Note: PULMONARY Still with shortness of breath, cough and wheezing. Vital Signs Period Temp Pulse Resp BP Sys/Gates Pulse Ox Last 24 Hr 97.9 F-98.1 F 76-92 20-22 149-155/78-93 96 Gen: frequent cough Heart: RRR Lung: bilateral rhonchi, wheezes Abd: soft, nontender Ext: no edema CBC, BMP 07/25/18 06:30 07/25/18 06:30 Active Medications Acetaminophen (Tylenol -) 325 mg PO Q6H PRN PRN Reason: PAIN SCALE 7-10 Last Admin: 07/25/18 10:57 Dose: 325 mg Acetylcysteine (Mucomyst 20 Oral / Inh Use Only*) 600 mg NEB RBID [facility] Last Admin: 07/25/18 07:35 Dose: 600 mg Albuterol Sulfate (Ventolin 0.083% Nebulizer Soln -) 1 amp NEB Q4H PRN PRN Reason: SHORT OF BREATH/WHEEZING Amitriptyline HCl (Elavil -) 75 mg PO DAILY [facility] Last Admin: 07/25/18 10:58 Dose: 75 mg Amlodipine Besylate (Norvasc -) 10 mg PO DAILY [facility] Last Admin: 07/25/18 10:56 Dose: 10 mg Arformoterol Tartrate (Brovana (Restricted To Pulmonology/Resp) -) 1 amp NEB RBID [facility] Last Admin: 07/25/18 07:35 Dose: 1 amp Aspirin (Ecotrin -) 81 mg PO DAILY [facility] Last Admin: 07/25/18 10:56 Dose: 81 mg Clopidogrel Bisulfate (Plavix -) 75 mg PO DAILY [facility] Last Admin: 07/25/18 10:56 Dose: 75 mg Ezetimibe (Zetia -) 10 mg PO HS [facility] Last Admin: 07/24/18 23:32 Dose: 10 mg Finasteride (Proscar -) 5 mg PO DAILY [facility] Last Admin: 07/25/18 10:57 Dose: 5 mg Gabapentin (Neurontin -) 800 mg PO TID [facility] Last Admin: 07/25/18 13:57 Dose: 800 mg Heparin Sodium (Porcine) (Heparin -) 5,000 unit SQ TID [facility] Last Admin: 07/25/18 13:57 Dose: 5,000 unit Insulin Aspart (Novolog Vial Sliding Scale -) 1 vial SQ Q4HPO [facility]; Protocol Last Admin: 07/25/18 14:00 Dose: 9 units Insulin Detemir (Levemir Vial) 40 units SQ BID@0700,2200 [facility] Last Admin: 07/25/18 06:54 Dose: 40 units Lidocaine (Lidoderm Patch -) 1 patch TP DAILY [facility] Last Admin: 07/25/18 10:58 Dose: 1 patch Methylprednisolone Sodium Succinate (Solu-Medrol -) 40 mg IVPUSH BID [facility] Last Admin: 07/25/18 10:58 Dose: 40 mg Miscellaneous (Lidoderm Patch Removal) 1 each MC DAILY@2200 [facility] Last Admin: 07/24/18 23:40 Dose: 1 each Mometasone Furoate (Asmanex 220mcg -) 2 puff IH BID [facility] Last Admin: 07/25/18 10:58 Dose: 2 puff Montelukast Sodium (Singulair -) 10 mg PO HS [facility] Last Admin: 07/24/18 23:32 Dose: 10 mg Oxycodone HCl (Roxicodone -) 5 mg PO Q6H PRN PRN Reason: PAIN SCALE 7-10 Last Admin: 07/25/18 10:57 Dose: 5 mg Pantoprazole Sodium (Protonix -) 40 mg PO DAILY [facility] Last Admin: 07/25/18 10:56 Dose: 40 mg Polyethylene Glycol (Miralax (For Daily Use) -) 17 gm PO DAILY PRN PRN Reason: CONSTIPATION Last Admin: 07/23/18 18:07 Dose: 17 gm Ramipril (Altace -) 10 mg PO DAILY [facility] Last Admin: 07/25/18 10:56 Dose: 10 mg Rosuvastatin Calcium (Crestor -) 10 mg PO HS [facility] Last Admin: 07/24/18 23:32 Dose: 10 mg Senna/Docusate Sodium (Pericolace -) 2 tablet PO HS PRN PRN Reason: CONSTIPATION Tamsulosin HCl (Flomax -) 0.4 mg PO DAILY@0830 [facility] Last Admin: 07/25/18 10:56 Dose: 0.4 mg A/P Acute Asthma Exacerbation CAD s/p CABG Lung Nodule Acute on Chronic Renal FAilure GRACIE s/p trach Chronic Pain Syndrome HTN DM - continue medrol at current dose - inhaled bronchodilators - O2 to keep SpO2 >90% - glucose control while on systemic steroids - DVT prophylaxis
--- NOTE | 2018-07-25 14:40 | PN ---
Teaching Attending Note Name of Resident: Haritha Yates ATTENDING PHYSICIAN STATEMENT I saw and evaluated the patient. I reviewed the resident's note and discussed the case with the resident. I agree with the resident's findings and plan as documented. SUBJECTIVE: No fever or chills. No abd pain. cont to complain of back pain. breathing is slightly better OBJECTIVE: NAD CV: RRR Lungs: prolonged exp phase, improved wheezing. + cough. decreased breath sounds at bases Ext: trace edema on legs R > L ASSESSMENT AND PLAN: 62 y/o man with h/o CAD, s/p CABG and Stents, HTN,severe persistent asthma HLP , back pain, SBO, chronic pancreatitis, BPH, H pylori , GRACIE s/p trach , and other medical problems who presented with cough, CP ,and SOB 1- Acute asthma exacerbation: - steroids . d/w Dr. Morgan, can decrease to 30 mg BID - Cont Nebs - Cont symbicort - Peek flow 310 yesterday . none done today - cont mucomyst 2- Acute Diastolic CHF. resolved -resume lasix 40 po daily - cont BP control 3- Uncontrolled DM. due ot steroids - increase levemir to 45 units BID - cont SSI 4- LOVE: resolved with holding lasix Monitor on lasix 5- HTN: cont Norvasc and ramipril. BP slightly elevated but steroids are contributing 6- Back pain: oxycodone and tylenol only. No IV or other po meds cont lidocaine patch dispo : HLOC
--- NOTE | 2018-07-25 14:43 | PN ---
Progress Note, Physician History of Present Illness: The patient is a 62 year old male with a significant past medical history of CHF , COPD, ACS, CADM CABG, SBO, BPH, hypertension, hyperlipidemia, pancreatitis, chronic back pain, diabetes, and tracheostomy who presents to the emergency department with shortness of breath for the past few weeks but has beeng etting worse recently. The patient reports some associated intermittent chest pain/ tightness with radiation from right to his left chest. He states that his chest pain is sharp. He reports some associated cough intermittently productive of greenish sputum for about 2 weeks was started on abx by Dr. Rojas. The patient states that he was concerned for pneumonia. The patient also reports complaint of chronic lower extremity edema, headache, and intermittent blurriness of either eye (this is a chronic problem - has had it for a long time and last episode yesterday, vision normal currently, he follows up with Dr. Garcia for the same eye complaints). Pt does endorse chronic back pain with pain raiding down his legs. He denies any other symptoms. He denies any fever, chills, nausea, vomiting, diarrhea, constipation or urinary symptoms. He denies any dizziness. . - Current Medication List Current Medications: Active Medications Acetaminophen (Tylenol -) 325 mg PO Q6H PRN PRN Reason: PAIN SCALE 7-10 Last Admin: 07/25/18 10:57 Dose: 325 mg Acetylcysteine (Mucomyst 20 Oral / Inh Use Only*) 600 mg NEB RBID [facility] Last Admin: 07/25/18 07:35 Dose: 600 mg Albuterol Sulfate (Ventolin 0.083% Nebulizer Soln -) 1 amp NEB Q4H PRN PRN Reason: SHORT OF BREATH/WHEEZING Amitriptyline HCl (Elavil -) 75 mg PO DAILY [facility] Last Admin: 07/25/18 10:58 Dose: 75 mg Amlodipine Besylate (Norvasc -) 10 mg PO DAILY [facility] Last Admin: 07/25/18 10:56 Dose: 10 mg Arformoterol Tartrate (Brovana (Restricted To Pulmonology/Resp) -) 1 amp NEB RBID [facility] Last Admin: 07/25/18 07:35 Dose: 1 amp Aspirin (Ecotrin -) 81 mg PO DAILY [facility] Last Admin: 07/25/18 10:56 Dose: 81 mg Clopidogrel Bisulfate (Plavix -) 75 mg PO DAILY [facility] Last Admin: 07/25/18 10:56 Dose: 75 mg Ezetimibe (Zetia -) 10 mg PO HS [facility] Last Admin: 07/24/18 23:32 Dose: 10 mg Finasteride (Proscar -) 5 mg PO DAILY [facility] Last Admin: 07/25/18 10:57 Dose: 5 mg Furosemide (Lasix -) 40 mg PO DAILY [facility] Gabapentin (Neurontin -) 800 mg PO TID [facility] Last Admin: 07/25/18 13:57 Dose: 800 mg Heparin Sodium (Porcine) (Heparin -) 5,000 unit SQ TID [facility] Last Admin: 07/25/18 13:57 Dose: 5,000 unit Insulin Aspart (Novolog Vial Sliding Scale -) 1 vial SQ Q4HPO [facility]; Protocol Last Admin: 07/25/18 14:00 Dose: 9 units Insulin Detemir (Levemir Vial) 40 units SQ BID@0700,2200 [facility] Last Admin: 07/25/18 06:54 Dose: 40 units Lidocaine (Lidoderm Patch -) 1 patch TP DAILY [facility] Last Admin: 07/25/18 10:58 Dose: 1 patch Methylprednisolone Sodium Succinate (Solu-Medrol -) 40 mg IVPUSH BID [facility] Last Admin: 07/25/18 10:58 Dose: 40 mg Miscellaneous (Lidoderm Patch Removal) 1 each MC DAILY@2200 [facility] Last Admin: 07/24/18 23:40 Dose: 1 each Mometasone Furoate (Asmanex 220mcg -) 2 puff IH BID [facility] Last Admin: 07/25/18 10:58 Dose: 2 puff Montelukast Sodium (Singulair -) 10 mg PO [facility] Last Admin: 07/24/18 23:32 Dose: 10 mg Oxycodone HCl (Roxicodone -) 5 mg PO Q6H PRN PRN Reason: PAIN SCALE 7-10 Last Admin: 07/25/18 10:57 Dose: 5 mg Pantoprazole Sodium (Protonix -) 40 mg PO DAILY [facility] Last Admin: 07/25/18 10:56 Dose: 40 mg Polyethylene Glycol (Miralax (For Daily Use) -) 17 gm PO DAILY PRN PRN Reason: CONSTIPATION Last Admin: 07/23/18 18:07 Dose: 17 gm Ramipril (Altace -) 10 mg PO DAILY [facility] Last Admin: 07/25/18 10:56 Dose: 10 mg Rosuvastatin Calcium (Crestor -) 10 mg PO HS [facility] Last Admin: 07/24/18 23:32 Dose: 10 mg Senna/Docusate Sodium (Pericolace -) 2 tablet PO HS PRN PRN Reason: CONSTIPATION Tamsulosin HCl (Flomax -) 0.4 mg PO DAILY@0830 [facility] Last Admin: 07/25/18 10:56 Dose: 0.4 mg - Objective Vital Signs: Vital Signs Temperature 98.1 F 07/25/18 09:00 Pulse Rate 82 07/25/18 09:00 Respiratory Rate 20 07/25/18 09:00 Blood Pressure 154/84 07/25/18 09:00 O2 Sat by Pulse Oximetry (%) 96 07/24/18 21:00 Eyes: Yes: WNL, Conjunctiva Clear, EOM Intact HENT: Yes: WNL, Atraumatic, Normocephalic Neck: Yes: WNL, Supple, Trachea Midline Cardiovascular: Yes: WNL, Regular Rate and Rhythm Respiratory: Yes: Rhonchi Gastrointestinal: Yes: WNL, Normal Bowel Sounds Genitourinary: Yes: WNL Musculoskeletal: Yes: WNL Extremities: Yes: WNL Edema: No Integumentary: Yes: WNL Neurological: Yes: WNL, Alert, Oriented ...Motor Strength: WNL Psychiatric: Yes: WNL Labs: CBC, BMP 07/25/18 06:30 07/25/18 06:30 INR, PTT INR 0.99 (0.83-1.09) 07/19/18 14:19 Problem List - Problems (1) COPD exacerbation Code(s): J44.1 - CHRONIC OBSTRUCTIVE PULMONARY DISEASE W (ACUTE) EXACERBATION (2) Chest pain Code(s): R07.9 - CHEST PAIN, UNSPECIFIED (3) ASHD (arteriosclerotic heart disease) Code(s): I25.10 - ATHSCL HEART DISEASE OF [place] CORONARY ARTERY W/O ANG PCTRS (4) Abdominal pain Code(s): R10.9 - UNSPECIFIED ABDOMINAL PAIN Qualifiers: Qualified Code(s): R10.10 - Upper abdominal pain, unspecified (5) Acute adjustment disorder with anxiety Code(s): F43.22 - ADJUSTMENT DISORDER WITH ANXIETY (6) Acute on chronic diastolic (congestive) heart failure Code(s): I50.33 - ACUTE ON CHRONIC DIASTOLIC (CONGESTIVE) HEART FAILURE (7) Acute on chronic systolic right heart failure Code(s): I50.23 - ACUTE ON CHRONIC SYSTOLIC (CONGESTIVE) HEART FAILURE (8) Anemia Code(s): D64.9 - ANEMIA, UNSPECIFIED (9) Anxiety Code(s): F41.9 - ANXIETY DISORDER, UNSPECIFIED (10) Arrhythmia Code(s): I49.9 - CARDIAC ARRHYTHMIA, UNSPECIFIED (11) Asthma Code(s): J45.909 - UNSPECIFIED ASTHMA, UNCOMPLICATED (12) Asthma exacerbation Code(s): J45.901 - UNSPECIFIED ASTHMA WITH (ACUTE) EXACERBATION (13) Asthma exacerbation in COPD Code(s): J44.1 - CHRONIC OBSTRUCTIVE PULMONARY DISEASE W (ACUTE) EXACERBATION; J45.901 - UNSPECIFIED ASTHMA WITH (ACUTE) EXACERBATION (14) Asthma with bronchitis and status asthmaticus Code(s): J45.902 - UNSPECIFIED ASTHMA WITH STATUS ASTHMATICUS Qualifiers: Qualified Code(s): J45.52 - Severe persistent asthma with status asthmaticus (15) Atypical chest pain Code(s): R07.89 - OTHER CHEST PAIN (16) BPH (benign prostatic hyperplasia) Code(s): N40.0 - BENIGN PROSTATIC HYPERPLASIA WITHOUT LOWER URINRY TRACT SYMP (17) Bronchitis Code(s): J40 - BRONCHITIS, NOT SPECIFIED ACUTE OR CHRONIC (18) CHF (congestive heart failure) Code(s): I50.9 - HEART FAILURE, UNSPECIFIED (19) COPD (chronic obstructive pulmonary disease) Code(s): J44.9 - CHRONIC OBSTRUCTIVE PULMONARY DISEASE, UNSPECIFIED (20) Cervical disc disease Code(s): M50.90 - CERVICAL DISC DISORDER, UNSP, UNSPECIFIED CERVICAL REGION (21) Cervical radiculopathy Code(s): M54.12 - RADICULOPATHY, CERVICAL REGION (22) Cervical vertebral fusion Code(s): M43.22 - FUSION OF SPINE, CERVICAL REGION (23) Cervicalgia Code(s): M54.2 - CERVICALGIA (24) Chest pain made worse by breathing Code(s): R07.1 - CHEST PAIN ON BREATHING (25) Chronic back pain Code(s): M54.9 - DORSALGIA, UNSPECIFIED; G89.29 - OTHER CHRONIC PAIN Qualifiers: (26) Chronic bronchitis with COPD (chronic obstructive pulmonary disease) Code(s): J44.9 - CHRONIC OBSTRUCTIVE PULMONARY DISEASE, UNSPECIFIED (27) Chronic diastolic (congestive) heart failure Code(s): I50.32 - CHRONIC DIASTOLIC (CONGESTIVE) HEART FAILURE (28) Chronic pain Code(s): G89.29 - OTHER CHRONIC PAIN Qualifiers: Qualified Code(s): G89.4 - Chronic pain syndrome (29) Chronic pain following surgery or procedure Code(s): G89.28 - OTHER CHRONIC POSTPROCEDURAL PAIN (30) Chronic pain with drug dependence Code(s): G89.29 - OTHER CHRONIC PAIN; F19.20 - OTHER PSYCHOACTIVE SUBSTANCE DEPENDENCE, UNCOMPLICATED (31) Chronic pancreatitis Code(s): K86.1 - OTHER CHRONIC PANCREATITIS Qualifiers: Qualified Code(s): K86.1 - Other chronic pancreatitis (32) Constipation Code(s): K59.00 - CONSTIPATION, UNSPECIFIED (33) 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 Code(s): E10.8 - TYPE 1 DIABETES MELLITUS WITH UNSPECIFIED COMPLICATIONS (34) Coronary artery disease Code(s): I25.10 - ATHSCL HEART DISEASE OF [place] CORONARY ARTERY W/O ANG PCTRS (35) Coronary artery disease involving autologous artery coronary bypass graft Code(s): I25.810 - ATHEROSCLEROSIS OF CABG W/O ANGINA PECTORIS (36) Diabetes mellitus Code(s): E11.9 - TYPE 2 DIABETES MELLITUS WITHOUT COMPLICATIONS (37) 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 Code(s): E10.51 - TYPE 1 DIABETES W DIABETIC PERIPHERAL ANGIOPATH W/O GANGRENE; I70.209 - UNSP ATHSCL [place] ARTERIES OF EXTREMITIES, UNSP EXTREMITY (38) Diabetes mellitus, insulin dependent (IDDM), uncontrolled Code(s): E10.65 - TYPE 1 DIABETES MELLITUS WITH HYPERGLYCEMIA (39) Diarrhea Code(s): R19.7 - DIARRHEA, UNSPECIFIED Qualifiers: Qualified Code(s): K59.1 - Functional diarrhea (40) Elevated lipase Code(s): R74.8 - ABNORMAL LEVELS OF OTHER SERUM ENZYMES (41) Esophagitis determined by endoscopy Code(s): K20.9 - ESOPHAGITIS, UNSPECIFIED (42) Fecal incontinence Code(s): R15.9 - FULL INCONTINENCE OF FECES (43) Fecal incontinence alternating with constipation Code(s): R15.9 - FULL INCONTINENCE OF FECES; K59.00 - CONSTIPATION, UNSPECIFIED (44) Fever of unknown origin Code(s): R50.9 - FEVER, UNSPECIFIED (45) Flank pain Code(s): R10.9 - UNSPECIFIED ABDOMINAL PAIN (46) Fungal esophagitis Code(s): K20.8 - OTHER ESOPHAGITIS (47) Fusion of lumbar spine Code(s): M43.26 - FUSION OF SPINE, LUMBAR REGION (48) Gross hematuria Code(s): R31.0 - GROSS HEMATURIA (49) H/O cervical spine surgery Code(s): Z98.89 - OTHER SPECIFIED POSTPROCEDURAL STATES * DO NOT USE * (50) H/O heart artery stent Code(s): Z95.5 - PRESENCE OF CORONARY ANGIOPLASTY IMPLANT AND GRAFT (51) H/O umbilical hernia repair Code(s): Z98.890 - OTHER SPECIFIED POSTPROCEDURAL STATES; Z87.19 - PERSONAL HISTORY OF OTHER DISEASES OF THE DIGESTIVE SYSTEM (52) Headache Code(s): R51 - HEADACHE (53) Hematuria Code(s): R31.9 - HEMATURIA, UNSPECIFIED (54) Hx of CABG Code(s): Z95.1 - PRESENCE OF AORTOCORONARY BYPASS GRAFT (55) Hyperlipidemia Code(s): E78.5 - HYPERLIPIDEMIA, UNSPECIFIED (56) Hypertension Code(s): I10 - ESSENTIAL (PRIMARY) HYPERTENSION Qualifiers: Qualified Code(s): I10 - Essential (primary) hypertension (57) Hypertension associated with diabetes Code(s): E11.59 - TYPE 2 DIABETES MELLITUS WITH OTH CIRCULATORY COMPLICATIONS; I10 - ESSENTIAL (PRIMARY) HYPERTENSION (58) Hypokalemia Code(s): E87.6 - HYPOKALEMIA (59) IPMN (intraductal papillary mucinous neoplasm) Code(s): D49.0 - NEOPLASM OF UNSPECIFIED BEHAVIOR OF DIGESTIVE SYSTEM (60) Lactic acid increased Code(s): E87.2 - ACIDOSIS (61) Leukocytosis Code(s): D72.829 - ELEVATED WHITE BLOOD CELL COUNT, UNSPECIFIED (62) Leukocytosis Code(s): D72.829 - ELEVATED WHITE BLOOD CELL COUNT, UNSPECIFIED (63) Myocardial infarct Code(s): I21.3 - ST ELEVATION (STEMI) MYOCARDIAL INFARCTION OF UNSP SITE (64) Nausea Code(s): R11.0 - NAUSEA (65) Nausea & vomiting Code(s): R11.2 - NAUSEA WITH VOMITING, UNSPECIFIED Qualifiers: Qualified Code(s): R11.2 - Nausea with vomiting, unspecified (66) Neutropenia Code(s): D70.9 - NEUTROPENIA, UNSPECIFIED Qualifiers: Qualified Code(s): D70.9 - Neutropenia, unspecified (67) GRACIE (obstructive sleep apnea) Code(s): G47.33 - OBSTRUCTIVE SLEEP APNEA (ADULT) (PEDIATRIC) (68) Opiate dependence Code(s): F11.20 - OPIOID DEPENDENCE, UNCOMPLICATED (69) Pancreatitis Code(s): K85.9 - ACUTE PANCREATITIS, UNSPECIFIED * DO NOT USE * (70) Pancreatitis, acute Code(s): K85.9 - ACUTE PANCREATITIS, UNSPECIFIED * DO NOT USE * (71) Paroxysmal SVT (supraventricular tachycardia) Code(s): I47.1 - SUPRAVENTRICULAR TACHYCARDIA (72) Pneumonia Code(s): J18.9 - PNEUMONIA, UNSPECIFIED ORGANISM Qualifiers: (73) Pre-ulcerative corn or callous Code(s): L84 - CORNS AND CALLOSITIES (74) Pulmonary hypertension Code(s): I27.2 - OTHER SECONDARY PULMONARY HYPERTENSION * DO NOT USE * (75) Rectal bleeding Code(s): K62.5 - HEMORRHAGE OF ANUS AND RECTUM (76) Renal calculus, left Code(s): N20.0 - CALCULUS OF KIDNEY (77) Renal insufficiency Code(s): N28.9 - DISORDER OF KIDNEY AND URETER, UNSPECIFIED (78) Right leg pain Code(s): M79.604 - PAIN IN RIGHT LEG (79) S/P laparotomy Code(s): Z98.890 - OTHER SPECIFIED POSTPROCEDURAL STATES (80) S/P lumbar spinal fusion Code(s): Z98.1 - ARTHRODESIS STATUS (81) SBO (small bowel obstruction) Code(s): K56.609 - UNSP INTESTNL OBST, UNSP TO PARTIAL VERSUS COMPLETE OBST (82) Shortness of breath Code(s): R06.02 - SHORTNESS OF BREATH (83) Sleep apnea Code(s): G47.30 - SLEEP APNEA, UNSPECIFIED (84) Status post spinal surgery Code(s): Z98.89 - OTHER SPECIFIED POSTPROCEDURAL STATES * DO NOT USE * (85) Tracheostomy in place Code(s): Z98.89 - OTHER SPECIFIED POSTPROCEDURAL STATES * DO NOT USE * (86) Type 2 diabetes mellitus with diabetic neuropathic arthropathy Code(s): E11.610 - TYPE 2 DIABETES MELLITUS W DIABETIC NEUROPATHIC ARTHROPATHY (87) Type 2 diabetes mellitus with diabetic neuropathy Code(s): E11.40 - TYPE 2 DIABETES MELLITUS WITH DIABETIC NEUROPATHY, UNSP (88) Type 2 diabetes mellitus with hyperosmolarity without nonketotic hyperglycemic-hyperosmolar coma ([facility]) Code(s): E11.00 - TYPE 2 DIAB W HYPROSM W/O NONKET HYPRGLY-HYPROS COMA ([facility]) (89) Umbilical hernia Code(s): K42.9 - UMBILICAL HERNIA WITHOUT OBSTRUCTION OR GANGRENE Qualifiers: Qualified Code(s): K42.9 - Umbilical hernia without obstruction or gangrene Assessment/Plan - Problems (1) COPD exacerbation Assessment/Plan: O2, bronchodilators, steroids per dough raiser. Code(s): J44.1 - CHRONIC OBSTRUCTIVE PULMONARY DISEASE W (ACUTE) EXACERBATION (2) ASHD (arteriosclerotic heart disease) Code(s): I25.10 - ATHSCL HEART DISEASE OF [place] CORONARY ARTERY W/O ANG PCTRS (3) Abdominal pain Code(s): R10.9 - UNSPECIFIED ABDOMINAL PAIN Qualifiers: Abdominal location: upper abdomen, unspecified Qualified Code(s): R10.10 - Upper abdominal pain, unspecified (4) Acute on chronic diastolic (congestive) heart failure Assessment/Plan: On ACEI and amlodipine; furosemide prn (held due to renal condition; Cr was 1.1 in late March; now 1.7). F/u daily wt, Is and Os, BUN/Cr, electrolytes. Code(s): I50.33 - ACUTE ON CHRONIC DIASTOLIC (CONGESTIVE) HEART FAILURE (5) Anxiety Code(s): F41.9 - ANXIETY DISORDER, UNSPECIFIED (6) Asthma Code(s): J45.909 - UNSPECIFIED ASTHMA, UNCOMPLICATED Qualifiers: Asthma severity: unspecified severity (7) Atypical chest pain Assessment/Plan: associated with episodes of dyspnea. TNI < 0.02 x 3 EKG: NSR with sinus arrhythmia; Telemetry: no arrhythmias or STT changes F/u most recent stress test (?reportedly done at [facility]; pt is there followed by government relations manager--Dr. Bola Elaine) Code(s): R07.89 - OTHER CHEST PAIN (8) Cervical disc disease Code(s): M50.90 - CERVICAL DISC DISORDER, UNSP, UNSPECIFIED CERVICAL REGION (9) Diabetes mellitus, insulin dependent (IDDM), uncontrolled Code(s): E10.65 - TYPE 1 DIABETES MELLITUS WITH HYPERGLYCEMIA (10) H/O heart artery stent Code(s): Z95.5 - PRESENCE OF CORONARY ANGIOPLASTY IMPLANT AND GRAFT (11) H/O umbilical hernia repair Code(s): Z98.890 - OTHER SPECIFIED POSTPROCEDURAL STATES; Z87.19 - PERSONAL HISTORY OF OTHER DISEASES OF THE DIGESTIVE SYSTEM (12) GRACIE (obstructive sleep apnea) Code(s): G47.33 - OBSTRUCTIVE SLEEP APNEA (ADULT) (PEDIATRIC) (13) Hypertension Assessment/Plan: on ramipril 10 mg/d (CHF; HTN; DM). Increased amlodipine to 10 mg/d (pt has been on this dose at home). Code(s): I10 - ESSENTIAL (PRIMARY) HYPERTENSION Qualifiers: Hypertension type: essential hypertension Qualified Code(s): I10 - Essential (primary) hypertension (14) Hyperlipidemia Code(s): E78.5 - HYPERLIPIDEMIA, UNSPECIFIED (15) Obesity Code(s): E66.9 - OBESITY, UNSPECIFIED (16) Acute adjustment disorder with anxiety Code(s): F43.22 - ADJUSTMENT DISORDER WITH ANXIETY
[2018-07-25] MEDS ORDERED: INSULIN (LEVEMIR) 100 UNITS/ML UNITS SQ SCH ×2 (14:47→22:01)
--- NOTE | 2018-07-25 16:06 | PN ---
Physical Exam: SUBJECTIVE: Patient seen and examined at bedside. No acute events overnight. Pt still complaining of pain as well as upper thigh swelling. Still complains of sob, however unchanged. Denies chest pain. Admits to lower leg edema improving. OBJECTIVE: Vital Signs Temperature 97.9 F 07/25/18 15:30 Pulse Rate 82 07/25/18 15:30 Respiratory Rate 20 07/25/18 15:30 Blood Pressure 158/90 07/25/18 15:30 O2 Sat by Pulse Oximetry (%) 99 07/25/18 09:00 GENERAL: The patient is frustrated- awake, alert, and fully oriented, in no acute distress. HEAD: Normal with no signs of trauma. EYES: PERRL, extraocular movements intact, sclera anicteric, conjunctiva clear. ENT: Ears normal, nares patent, oropharynx clear without exudates NECK: Trachea midline, full range of motion, supple. LUNGS: +wheezing b/l. coughing HEART: Regular rate and rhythm, S1, S2 without murmur, rub or gallop. ABDOMEN: Soft, obese, nontender, nondistended, normoactive bowel sounds EXTREMITIES: 2+ pt pulses, warm, well-perfused, no edema. NEUROLOGICAL: Cranial nerves II through XII grossly intact. PSYCH: stressed, frustrated SKIN: Warm, dry, normal turgor Laboratory Results - last 24 hr 07/24/18 07/24/18 07/25/18 16:26 18:30 00:24 WBC RBC Hgb Hct MCV MCH MCHC RDW Plt Count MPV Absolute Neuts (auto) Neutrophils % Neutrophils % (Manual) Band Neutrophils % Lymphocytes % Lymphocytes % (Manual) Monocytes % Monocytes % (Manual) Eosinophils % Eosinophils % (Manual) Basophils % Basophils % (Manual) Myelocytes % (Man) Promyelocytes % (Man) Blast Cells % (Manual) Nucleated RBC % Metamyelocytes Hypochromia Platelet Estimate Platelet Comment Polychromasia Poikilocytosis Anisocytosis Microcytosis Macrocytosis Sodium Potassium Chloride Carbon Dioxide Anion Gap BUN Creatinine Creat Clearance w eGFR POC Glucometer 318 305 377 Random Glucose Calcium 07/25/18 07/25/18 07/25/18 02:50 06:30 06:30 WBC 14.8 H RBC 4.39 Hgb 11.0 L Hct 35.2 L MCV 80.3 MCH 25.2 L MCHC 31.4 L RDW 15.4 Plt Count 303 MPV 7.6 Absolute Neuts (auto) 12.0 H Neutrophils % 80.7 Neutrophils % (Manual) 78.8 Band Neutrophils % 0.0 Lymphocytes % 12.0 Lymphocytes % (Manual) 8.1 D Monocytes % 7.0 Monocytes % (Manual) 5 Eosinophils % 0.1 D Eosinophils % (Manual) 0.0 Basophils % 0.2 Basophils % (Manual) 0.0 Myelocytes % (Man) 0 Promyelocytes % (Man) 0 Blast Cells % (Manual) 0 Nucleated RBC % 0 Metamyelocytes 0 Hypochromia 0 Platelet Estimate Normal Platelet Comment Present Polychromasia 0 Poikilocytosis 2+ Anisocytosis 3+ Microcytosis 0 Macrocytosis 0 Sodium 139 Potassium 4.6 Chloride 105 Carbon Dioxide 26 Anion Gap 8 BUN 34 H Creatinine 1.2 Creat Clearance w eGFR > 60 POC Glucometer 372 Random Glucose 236 H Calcium 8.7 07/25/18 07/25/18 07/25/18 06:48 11:05 11:50 WBC RBC Hgb Hct MCV MCH MCHC RDW Plt Count MPV Absolute Neuts (auto) Neutrophils % Neutrophils % (Manual) Band Neutrophils % Lymphocytes % Lymphocytes % (Manual) Monocytes % Monocytes % (Manual) Eosinophils % Eosinophils % (Manual) Basophils % Basophils % (Manual) Myelocytes % (Man) Promyelocytes % (Man) Blast Cells % (Manual) Nucleated RBC % Metamyelocytes Hypochromia Platelet Estimate Platelet Comment Polychromasia Poikilocytosis Anisocytosis Microcytosis Macrocytosis Sodium Potassium Chloride Carbon Dioxide Anion Gap BUN Creatinine Creat Clearance w eGFR POC Glucometer 255 484 363 Random Glucose Calcium 07/25/18 13:58 WBC RBC Hgb Hct MCV MCH MCHC RDW Plt Count MPV Absolute Neuts (auto) Neutrophils % Neutrophils % (Manual) Band Neutrophils % Lymphocytes % Lymphocytes % (Manual) Monocytes % Monocytes % (Manual) Eosinophils % Eosinophils % (Manual) Basophils % Basophils % (Manual) Myelocytes % (Man) Promyelocytes % (Man) Blast Cells % (Manual) Nucleated RBC % Metamyelocytes Hypochromia Platelet Estimate Platelet Comment Polychromasia Poikilocytosis Anisocytosis Microcytosis Macrocytosis Sodium Potassium Chloride Carbon Dioxide Anion Gap BUN Creatinine Creat Clearance w eGFR POC Glucometer 295 Random Glucose Calcium Active Medications Acetaminophen (Tylenol -) 325 mg PO Q6H PRN PRN Reason: PAIN SCALE 7-10 Last Admin: 07/25/18 10:57 Dose: 325 mg Acetylcysteine (Mucomyst 20 Oral / Inh Use Only*) 600 mg NEB RBID [facility] Last Admin: 07/25/18 07:35 Dose: 600 mg Albuterol Sulfate (Ventolin 0.083% Nebulizer Soln -) 1 amp NEB Q4H PRN PRN Reason: SHORT OF BREATH/WHEEZING Amitriptyline HCl (Elavil -) 75 mg PO DAILY [facility] Last Admin: 07/25/18 10:58 Dose: 75 mg Amlodipine Besylate (Norvasc -) 10 mg PO DAILY [facility] Last Admin: 07/25/18 10:56 Dose: 10 mg Arformoterol Tartrate (Brovana (Restricted To Pulmonology/Resp) -) 1 amp NEB RBID [facility] Last Admin: 07/25/18 07:35 Dose: 1 amp Aspirin (Ecotrin -) 81 mg PO DAILY [facility] Last Admin: 07/25/18 10:56 Dose: 81 mg Clopidogrel Bisulfate (Plavix -) 75 mg PO DAILY [facility] Last Admin: 07/25/18 10:56 Dose: 75 mg Ezetimibe (Zetia -) 10 mg PO HS [facility] Last Admin: 07/24/18 23:32 Dose: 10 mg Finasteride (Proscar -) 5 mg PO DAILY [facility] Last Admin: 07/25/18 10:57 Dose: 5 mg Furosemide (Lasix -) 40 mg PO DAILY [facility] Gabapentin (Neurontin -) 800 mg PO TID [facility] Last Admin: 07/25/18 13:57 Dose: 800 mg Heparin Sodium (Porcine) (Heparin -) 5,000 unit SQ TID [facility] Last Admin: 07/25/18 13:57 Dose: 5,000 unit Insulin Aspart (Novolog Vial Sliding Scale -) 1 vial SQ Q4HPO [facility]; Protocol Last Admin: 07/25/18 14:00 Dose: 9 units Insulin Detemir (Levemir Vial) 45 units SQ BID@0700,2200 [facility] Lidocaine (Lidoderm Patch -) 1 patch TP DAILY [facility] Last Admin: 07/25/18 10:58 Dose: 1 patch Methylprednisolone Sodium Succinate (Solu-Medrol -) 30 mg IVPUSH BID [facility] Miscellaneous (Lidoderm Patch Removal) 1 each MC DAILY@2200 [facility] Last Admin: 07/24/18 23:40 Dose: 1 each Mometasone Furoate (Asmanex 220mcg -) 2 puff IH BID [facility] Last Admin: 07/25/18 10:58 Dose: 2 puff Montelukast Sodium (Singulair -) 10 mg PO HS [facility] Last Admin: 07/24/18 23:32 Dose: 10 mg Oxycodone HCl (Roxicodone -) 5 mg PO Q6H PRN PRN Reason: PAIN SCALE 7-10 Last Admin: 07/25/18 10:57 Dose: 5 mg Pantoprazole Sodium (Protonix -) 40 mg PO DAILY [facility] Last Admin: 07/25/18 10:56 Dose: 40 mg Polyethylene Glycol (Miralax (For Daily Use) -) 17 gm PO DAILY PRN PRN Reason: CONSTIPATION Last Admin: 07/23/18 18:07 Dose: 17 gm Ramipril (Altace -) 10 mg PO DAILY [facility] Last Admin: 07/25/18 10:56 Dose: 10 mg Rosuvastatin Calcium (Crestor -) 10 mg PO HS [facility] Last Admin: 07/24/18 23:32 Dose: 10 mg Senna/Docusate Sodium (Pericolace -) 2 tablet PO HS PRN PRN Reason: CONSTIPATION Tamsulosin HCl (Flomax -) 0.4 mg PO DAILY@0830 [facility] Last Admin: 07/25/18 10:56 Dose: 0.4 mg IMAGING: * RLE duplex: No evid of DVT * Head CT: Mild nonspecific volume loss. No evid of IC pathology * CXR: Cardiomegaly. No acute disease. * Echo: Mild concentric LVH. LVEF normal. LV wall motion normal. Mild MR. Insufficient TR detected to calculate RV systolic pressure. LV filling pattern normal for age. * Holter (07/2016): NSR with occ PVCs and APCs, 3 short runs of SVTs * Stress (07/2016) Small mod size inferior scar with periinfarct ischemia, LVEF 45% with inferior hypokinesis * ECHO (12/2017): Mild conc LVH, LVEF nl (60-65%), RV-nl size and fn, LA mildly dilated, trace to mild MR, trace to mild TR, Insuff TR to calculateRVSP, trace pulm valvular regurg, aortic root is nl size, no pleural effusion, mild to mod mitral annular calcification. * EKG (07/19/18):101bpm, no SAURAV/STD, nl axis, meets adrián criteria for LVH, QTC- 461 ASSESSMENT/PLAN: 62 year old obese male with PMH CAD, [place], CABG; s/p coronary stents x 6 (most recently 12/2015),HTN, HLD, chronic pancreatitis, chronic back pain , SBO, incarcerated hernia s/p repair x2 (September 2017), H.Pylori, BPH, COPD, bronchial asthma, tracheostomy in place (unplugs when sleeping for GRACIE), anxiety who presented for generalized body aches and cough. Found to be in acute asthma exacerbation. #acute asthma exacerbation -Per pulm, decreased Solumedrol to 30 mg IVP BID -Brovana BID #Acute HFpEF exacerbation Cont home med: -Lasix 40 mg PO QD #IDDM exacerbated by steroids -seen by endo; increase to Levemir 45 SQ BID -BGM/ISS q4h #?steroid induced anxiety -seen by psych; c/w neurontin, amitriptyline 75 qD #generalized myalgias likely 2/2 chronic back pain -roxicodone 5mg q6h PRN -ISTOP: #: [id number]; Pt has previously picked up Rx for percocet 10-325 , 180 pills for 15 days on 03/26/18. Dilaudid 4 mg q 4h, for 16 days on 05/05/18. Morphine ER 15 mg BID for 30 days on 05/05/18. Nucyanta ER, 150 mg BID fro 30 days on 03/26/18. -Miralax/Senna for constipation -Lidoderm patch #LOVE on possible CKD; Per PCP, baseline Cr is 1.17 (on 07/2016) -improving gradually -continue to hold Lasix #HTN -c/w amlodipine 10, ramipril 10 #HLD -c/w rosuvastatin 10, zetia 10 #CAD/AK s/p CABG s/p 6 stents -c/w asa 81, plavix 75 QD #BPH -c/w flomax 0.4 QD, proscar 5 QD #GRACIE -tracheostomy in place. unplugs when sleeps #FEN -No IV fluids -Monitor lytes -Diabetic/Sodium controlled diet #PPx DVT: Heparin sq GI: Protonix 40 mg PO QD #Dispo cont'd monitoring on med-surg. watch sugars closely, have been uncontrolled Visit type - Emergency Visit Emergency Visit: Yes ED Registration Date: 07/20/18 Care time: The patient presented to the Emergency Department on the above date and was hospitalized for further evaluation of their emergent condition. - New Patient This patient is new to me today: No - Critical Care Critical Care patient: No
--- NOTE | 2018-07-25 22:05 | PN ---
Progress Note (short form) - Note Progress Note: has high sugars with significant complaints dyspnea cough and pain Current Active Problems COPD exacerbation (Acute) Chest pain (Acute) Obesity (Acute) chronic pain chf ashd dm2 neuropathy diabetic gastroparesis Laboratory Tests 07/24/18 07/24/18 07/24/18 06:41 07:30 11:21 Sodium 139 Potassium 4.4 Chloride 105 Carbon Dioxide 27 BUN 35 H Creatinine 1.3 POC Glucometer 257 218 Random Glucose 216 H Calcium 8.5 Phosphorus 2.8 Magnesium 3.2 H 07/24/18 16:26 Sodium Potassium Chloride Carbon Dioxide BUN Creatinine POC Glucometer 318 Random Glucose Calcium Phosphorus Magnesium plan: levemir 50units bid novolog coverage pain control Problem List - Problems (1) COPD exacerbation Code(s): J44.1 - CHRONIC OBSTRUCTIVE PULMONARY DISEASE W (ACUTE) EXACERBATION (2) Obesity Code(s): E66.9 - OBESITY, UNSPECIFIED (3) ASHD (arteriosclerotic heart disease) Code(s): I25.10 - ATHSCL HEART DISEASE OF [place] CORONARY ARTERY W/O ANG PCTRS (4) Abdominal pain Code(s): R10.9 - UNSPECIFIED ABDOMINAL PAIN Qualifiers: Abdominal location: upper abdomen, unspecified Qualified Code(s): R10.10 - Upper abdominal pain, unspecified (5) Acute adjustment disorder with anxiety Code(s): F43.22 - ADJUSTMENT DISORDER WITH ANXIETY (6) Acute on chronic diastolic (congestive) heart failure Code(s): I50.33 - ACUTE ON CHRONIC DIASTOLIC (CONGESTIVE) HEART FAILURE (7) Acute on chronic systolic right heart failure Code(s): I50.23 - ACUTE ON CHRONIC SYSTOLIC (CONGESTIVE) HEART FAILURE
[2018-07-25] MEDS: EZETIMIBE 10 MG TABLET (FP) PO SCH (23:02)
[2018-07-25] MEDS: ROSUVASTATIN CA 10 MG TABLET (FP) PO SCH (23:02)
[2018-07-25] MEDS: MONTELUKAST NA 10 MG TABLET PO SCH (23:02)
[2018-07-25] MEDS: LIDOCAINE PATCH REMOVAL MC SCH (23:06)
[2018-07-26] MEDS: INSULIN SLIDING SCALE (NOVOLOG) 1 VIAL SQ SCH ×5 (02:48→17:32)
[2018-07-26] MEDS: ACETAMINOPHEN 325 MG TABLET (FP) PO PRN ×2 (02:49→09:16)
[2018-07-26] MEDS: oxyCODONE HCL 5 MG TABLET PO PRN ×2 (02:49→09:15)
[2018-07-26] MEDS: INSULIN (LEVEMIR) 100 UNITS/ML UNITS SQ SCH (06:58)
[2018-07-26] MEDS: HEPARIN NA (PORCINE) 5,000 UNITS/ML 1ML VIAL SQ SCH ×2 (06:58→13:36)
[2018-07-26] MEDS: GABAPENTIN 400 MG CAPSULE (FP) PO SCH ×2 (06:58→13:36)
[2018-07-26] MEDS ORDERED: RAMIPRIL 5 MG CAPSULE (FP) PO ONE (07:16)
[2018-07-26] MEDS: TAMSULOSIN HCL 0.4 MG CAP PO SCH (07:43)
[2018-07-26 07:52] LABS: HEMATOCRIT 34.8 % (35.4-49); HEMOGLOBIN 11.8 GM/dL (11.7-16.9); MCH 26.9 pg (25.7-33.7); MCHC 33.8 g/dl (32.0-35.9); MEAN CELL VOLUME 79.5 fl (80-96); MEAN PLT VOLUME 7.7 fl (7.5-11.1); PLATELET COUNT 312 K/MM3 (134-434); RBC 4.38 M/mm3 (4.00-5.60); RDW 15.6 % (11.9-15.9); WHITE BLOOD COUNT 16.9 K/mm3 (4.0-10.0)
[2018-07-26] MEDS: ARFORMOTEROL TARTRATE 15 MCG/2 ML VIAL NEB SCH (08:00)
[2018-07-26] MEDS: ACETYLCYSTEINE 20% 200MG/ML 4 ML VIAL *FOR ORAL / INH USE ONLY NEB SCH (08:00)
[2018-07-26 08:19] LABS: ANION GAP 5 MMOL/L (8-16); BLOOD UREA NITROGEN 31 mg/dL (7-18); CALCIUM 8.9 mg/dL (8.5-10.1); CHLORIDE 102 mmol/L (98-107); CO2 28 mmol/L (21-32); CREATININE 1.1 mg/dL (0.55-1.3); GLUCOSE,RANDOM 227 mg/dL (74-106); POTASSIUM 4.4 mmol/L (3.5-5.1); SODIUM 135 mmol/L (136-145)
[2018-07-26] MEDS ORDERED: PT OWN MED DRAWER 7, Y5N ONE (09:10)
[2018-07-26] MEDS: CLOPIDOGREL BISULFATE 75 MG TABLET (FP) PO SCH (09:14)
[2018-07-26] MEDS: PANTOPRAZOLE 40 MG TABLET (FP) PO SCH (09:14)
[2018-07-26] MEDS: ASPIRIN COATED 81 MG TABLET.EC PO SCH (09:14)
[2018-07-26] MEDS: amLODIPine BESYLATE 10 MG TABLET (FP) PO SCH (09:14)
[2018-07-26] MEDS: AMITRIPTYLINE HCL 75 MG TABLET PO SCH (09:15)
[2018-07-26] MEDS: FINASTERIDE 5 MG TABLET (FP) PO SCH (09:15)
[2018-07-26] MEDS: methylPREDNISolone NA SUCC 40 MG/1 ML VIAL IVPUSH SCH (09:15)
[2018-07-26] MEDS: LIDOCAINE 5% TOPICAL PATCH TP SCH (09:16)
[2018-07-26] MEDS: MOMETASONE FUROATE 220 MCG/IH INHALER IH SCH (09:19)
[2018-07-26] MEDS: RAMIPRIL 5 MG CAPSULE (FP) PO SCH (09:29)
[2018-07-26] MEDS ORDERED: FUROSEMIDE 40 MG TABLET (FP) PO SCH (10:00)
--- NOTE | 2018-07-26 12:52 | PN ---
Progress Note (short form) - Note Progress Note: PULMONARY Still with shortness of breath, cough and wheezing but improving. Vital Signs Period Temp Pulse Resp BP Sys/Gates Pulse Ox Last 24 Hr 97.9 F-98.3 F 80-94 20-22 144-169/83-100 98-100 Gen: less tachypneic Heart: RRR Lung: better air entry, less rhonchi, wheezes Abd: soft, nontender Ext: no edema CBC, BMP 07/26/18 06:00 07/26/18 06:00 Active Medications Acetaminophen (Tylenol -) 325 mg PO Q6H PRN PRN Reason: PAIN SCALE 7-10 Last Admin: 07/26/18 09:16 Dose: 325 mg Acetylcysteine (Mucomyst 20 Oral / Inh Use Only*) 600 mg NEB RBID [facility] Last Admin: 07/25/18 19:55 Dose: 600 mg Albuterol Sulfate (Ventolin 0.083% Nebulizer Soln -) 1 amp NEB Q4H PRN PRN Reason: SHORT OF BREATH/WHEEZING Last Admin: 07/26/18 04:30 Dose: 1 amp Amitriptyline HCl (Elavil -) 75 mg PO DAILY [facility] Last Admin: 07/26/18 09:15 Dose: 75 mg Amlodipine Besylate (Norvasc -) 10 mg PO DAILY [facility] Last Admin: 07/26/18 09:14 Dose: 10 mg Arformoterol Tartrate (Brovana (Restricted To Pulmonology/Resp) -) 1 amp NEB RBID [facility] Last Admin: 07/25/18 19:55 Dose: 1 amp Aspirin (Ecotrin -) 81 mg PO DAILY [facility] Last Admin: 07/26/18 09:14 Dose: 81 mg Clopidogrel Bisulfate (Plavix -) 75 mg PO DAILY [facility] Last Admin: 07/26/18 09:14 Dose: 75 mg Ezetimibe (Zetia -) 10 mg PO HS [facility] Last Admin: 07/25/18 23:02 Dose: 10 mg Finasteride (Proscar -) 5 mg PO DAILY [facility] Last Admin: 07/26/18 09:15 Dose: 5 mg Furosemide (Lasix -) 40 mg PO DAILY [facility] Last Admin: 07/26/18 09:14 Dose: 40 mg Gabapentin (Neurontin -) 800 mg PO TID [facility] Last Admin: 07/26/18 06:58 Dose: 800 mg Heparin Sodium (Porcine) (Heparin -) 5,000 unit SQ TID [facility] Last Admin: 07/26/18 06:58 Dose: 5,000 unit Insulin Aspart (Novolog Vial Sliding Scale -) 1 vial SQ Q4HPO [facility]; Protocol Last Admin: 07/26/18 10:44 Dose: 11 units Insulin Detemir (Levemir Vial) 50 units SQ BID@0700,2200 [facility] Last Admin: 07/26/18 06:58 Dose: 50 units Lidocaine (Lidoderm Patch -) 1 patch TP DAILY [facility] Last Admin: 07/26/18 09:16 Dose: 1 patch Miscellaneous (Lidoderm Patch Removal) 1 each MC DAILY@2200 [facility] Last Admin: 07/25/18 23:06 Dose: 1 each Mometasone Furoate (Asmanex 220mcg -) 2 puff IH BID [facility] Last Admin: 07/26/18 09:19 Dose: 2 puff Montelukast Sodium (Singulair -) 10 mg PO [facility] Last Admin: 07/25/18 23:02 Dose: 10 mg Oxycodone HCl (Roxicodone -) 5 mg PO Q6H PRN PRN Reason: PAIN SCALE 7-10 Last Admin: 07/26/18 09:15 Dose: 5 mg Pantoprazole Sodium (Protonix -) 40 mg PO DAILY [facility] Last Admin: 07/26/18 09:14 Dose: 40 mg Polyethylene Glycol (Miralax (For Daily Use) -) 17 gm PO DAILY PRN PRN Reason: CONSTIPATION Last Admin: 07/23/18 18:07 Dose: 17 gm Prednisone (Deltasone -) 60 mg PO DAILY [facility] Ramipril (Altace -) 10 mg PO DAILY [facility] Last Admin: 07/26/18 09:29 Dose: Not Given Rosuvastatin Calcium (Crestor -) 10 mg PO HS [facility] Last Admin: 07/25/18 23:02 Dose: 10 mg Senna/Docusate Sodium (Pericolace -) 2 tablet PO HS PRN PRN Reason: CONSTIPATION Tamsulosin HCl (Flomax -) 0.4 mg PO DAILY@0830 [facility] Last Admin: 07/26/18 07:43 Dose: 0.4 mg A/P Acute Asthma Exacerbation CAD s/p CABG Lung Nodule Acute on Chronic Renal FAilure GRACIE s/p trach Chronic Pain Syndrome HTN DM - steroid taper - inhaled bronchodilators - O2 to keep SpO2 >90% - glucose control while on systemic steroids - DVT prophylaxis
--- NOTE | 2018-07-26 13:54 | PN ---
Teaching Attending Note Name of Resident: Omaira Hoyt ATTENDING PHYSICIAN STATEMENT I saw and evaluated the patient. I reviewed the resident's note and discussed the case with the resident. I agree with the resident's findings and plan as documented. SUBJECTIVE: No fever or chills . No abd pain. chronic back pain. breathing is better . OBJECTIVE: NAD CV: RRR Lungs: prolonged exp phase, improved wheezing. air entry much improved. Ext: trace edema on legs R > L ASSESSMENT AND PLAN: 62 y/o man with h/o CAD, s/p CABG and Stents, HTN,severe persistent asthma HLP , back pain, SBO, chronic pancreatitis, BPH, H pylori , GRACIE s/p trach , and other medical problems who presented with cough, CP ,and SOB 1- Acute asthma exacerbation: - case d/w dr. Morgan, will change to steroid taper , prolonged course - Cont Nebs , and inhalers - pre-post ambulatory Sat O2 . 2- Acute Diastolic CHF. resolved - cont home lasix 3- Uncontrolled DM. due ot steroids. currently o n 50 of levemir BId with SSi - at dc, he will resume his insulin pump and see Dr. Gustafson in office tomorrow. this was d/w dr. Gustafson . 4- LOVE: resolved with holding lasix Monitor on lasix. 5- HTN: cont Norvasc and ramipril. 6- Back pain: he will follow with [facility] and his pain management doctor. was not on any narcotics at time of admission dc home pending pre-post . if he needs O2 will speak to SW f/u with PCP, pulm ,pain management, and card
--- NOTE | 2018-07-26 15:09 | DS ---
Physical Exam: SUBJECTIVE: Patient seen and examined at bedside. No acute events overnight. OBJECTIVE: Vital Signs Period Temp Pulse Resp BP Sys/Gates Pulse Ox Last 24 Hr 97.9 F-98.3 F 80-114 20-22 144-169/83-100 93-100 PHYSICAL EXAM GENERAL: The patient is frustrated- awake, alert, and fully oriented, in no acute distress. HEAD: Normal with no signs of trauma. EYES: PERRL, extraocular movements intact, sclera anicteric, conjunctiva clear. ENT: Ears normal, nares patent, oropharynx clear without exudates NECK: Trachea midline, full range of motion, supple. LUNGS: +wheezing b/l. coughing HEART: Regular rate and rhythm, S1, S2 without murmur, rub or gallop. ABDOMEN: Soft, obese, nontender, nondistended, normoactive bowel sounds EXTREMITIES: 2+ pt pulses, warm, well-perfused, no edema. NEUROLOGICAL: Cranial nerves II through XII grossly intact. PSYCH: stressed, frustrated SKIN: Warm, dry, normal turgor LABS Laboratory Results - last 24 hr 07/24/18 07/25/18 07/25/18 23:37 17:37 23:00 WBC RBC Hgb Hct MCV MCH MCHC RDW Plt Count MPV Sodium Potassium Chloride Carbon Dioxide Anion Gap BUN Creatinine Creat Clearance w eGFR POC Glucometer 411 285 381 Random Glucose Calcium 07/26/18 07/26/18 07/26/18 02:47 06:00 06:00 WBC 16.9 H RBC 4.38 Hgb 11.8 Hct 34.8 L MCV 79.5 L MCH 26.9 MCHC 33.8 RDW 15.6 Plt Count 312 MPV 7.7 Sodium 135 L Potassium 4.4 Chloride 102 Carbon Dioxide 28 Anion Gap 5 L BUN 31 H Creatinine 1.1 Creat Clearance w eGFR > 60 POC Glucometer 385 Random Glucose 227 H Calcium 8.9 07/26/18 07/26/18 07/26/18 06:33 10:42 13:40 WBC RBC Hgb Hct MCV MCH MCHC RDW Plt Count MPV Sodium Potassium Chloride Carbon Dioxide Anion Gap BUN Creatinine Creat Clearance w eGFR POC Glucometer 231 313 244 Random Glucose Calcium HOSPITAL COURSE: Date of Admission:07/20/18 IMAGING: * RLE duplex: No evid of DVT * Head CT: Mild nonspecific volume loss. No evid of IC pathology * CXR: Cardiomegaly. No acute disease. * Echo: Mild concentric LVH. LVEF normal. LV wall motion normal. Mild MR. Insufficient TR detected to calculate RV systolic pressure. LV filling pattern normal for age. * Holter (07/2016): NSR with occ PVCs and APCs, 3 short runs of SVTs * Stress (07/2016) Small mod size inferior scar with periinfarct ischemia, LVEF 45% with inferior hypokinesis * ECHO (12/2017): Mild conc LVH, LVEF nl (60-65%), RV-nl size and fn, LA mildly dilated, trace to mild MR, trace to mild TR, Insuff TR to calculateRVSP, trace pulm valvular regurg, aortic root is nl size, no pleural effusion, mild to mod mitral annular calcification. * EKG (07/19/18):101bpm, no SAURAV/STD, nl axis, meets adrián criteria for LVH, QTC- 461 62 year old obese male with PMH CAD, ND, CABG; s/p coronary stents x6 (most recently 12/2015), HTN, HLD, chronic pancreatitis, chronic back pain, SBO, incarcerated hernia s/p repair x2 (September 2017), H.Pylori, BPH, COPD, bronchial asthma, tracheostomy in place (unplugs when sleeping for GRACIE), anxiety who presented for generalized body aches and cough. Found to be in acute asthma exacerbation. Pt was given Duonebs, steroids, IV abx. Pt was evaluated by pulm and recommended to cont current mgmt; sputum culture ordered and was neg. Additionally, pt was found to have uncontrolled blood sugar levels, currently on insulin pump. Pt was evaluated by endo, and started on Levemir SQ BID with ISS for better glucose control. Pt also had complaints of chronic back pain due to chronic pancreatitis and was given Oxycodone for pain control. He was given referral to see pain management doctor for outpatient follow up. During hospital stay, the patient had intermittent complaints of chest pain. He was seen and evaluated by cardio and was not found to have an acute cardiac condition as his symptoms were likely caused by his episodes of dyspnea related to COPD exacerbation. Pt's breathing symptoms improved throughout hospital stay and was subsequently discharged on PO Prednisone taper. He was also advised to follow up with his PCP, commissioning manager, pain management doctor and ditto machine operator. Date of Discharge: 07/26/18 Minutes to complete discharge: 40 Discharge Summary Reason For Visit: OBSTRUCTIVE CHRONIC BRONCHITIS W/EXAC;CHEST PAIN Current Active Problems Acute diastolic (congestive) heart failure (Acute) Hyperglycemia (Acute) Diabetes mellitus (Chronic) Obesity (Chronic) Condition: Improved - Instructions Diet, Activity, Other Instructions: You were seen in the hospital for complaints of generalized pain and cough. In the hospital, you were evaluated and found to have an acute asthma exacerbation. You were evaluated by the commissioning manager and treated with steroids , nebulizer treatments, and an inhaler. Labs showed fluctuating increases in blood sugar levels and as a result, you were seen and evaluated by a electron tube assembler. You were placed on an insulin regimen and your blood sugar levels remained stable. Additionally, you were evaluated by a ditto machine operator. You were not found to have an acute heart failure, which now resolved . Your breathing symptoms improved. You are being discharged home. MEDICAL RECOMMENDATIONS Please continue to use your insulin pump as per your routine . Dr. Gustafson will adjust your insulin regimen accordingly once you see him in his office tomorrow. Per his recommendation, he would like you to make an appointment for tomorrow. We have made the following changes to your medication(s): Please stop taking Amlodipine 5 mg. Start taking Amlodipine 10 mg once a day by mouth. lidocaine patch is ordered for you Please take the following steroid taper dosage: Prednisone- 60 mg for 3 days (07/27-07/29) 50 mg for 3 days (07/30-08/01) 40 mg for 3 days (08/02-08/04) 30 mg for 3 days (08/05-08/07) 20 mg for 3 days (08/08-08/10) 10 mg for 3 days (08/11-08/13) 5 mg fro 3 days then stop ( 08/14-08/16). CONSULT RECOMMENDATIONS Please follow up with your primary care physician within 1 week. Please follow up with your ditto machine operator, Dr. Elaine, within 1 week. Please follow up with your commissioning manager, Dr. Knox within 1 week. Please follow up with your electron tube assembler, Dr. Gustafson tomorrow, July 27, 2018. Please follow up with the psychiatrist Dr. Roe, within 1 week. Please follow up with the pain management doctor, Dr. Boles, within 1 week. If you experience persistent shortness of breath, difficulty breathing, chest pain, gait abnormalities, worsening fever/chills, nausea/vomiting, please proceed to your nearest emergency room immediately. Referrals: Jennifer Roe MD [Staff Physician] - 1 Week Bola Elaine MD [Non Staff, Medical] - 1 Week Murali Gustafson MD [Staff Physician] - 07/27/18 Markus Knox MD [Staff Physician] - 1 Week Omari Boles MD [Staff Physician] - 1 Week Disposition: VNS/HOME HEALTH CARE - Home Medications Comprehensive Discharge Medication List: Ambulatory Orders Albuterol Sulfate Inhaler - [Ventolin HFA Inhaler -] 1 - 2 inh PO Q4H PRN Arformoterol Tartrate [Brovana] 15 mcg IH ASDIR 08/18/17 Aspirin [Aspirin EC] 81 mg PO DAILY 08/18/17 Clopidogrel Bisulfate [Plavix] 75 mg PO DAILY 08/18/17 Dexlansoprazole [Dexilant] 30 mg PO DAILY 08/18/17 Ezetimibe [Zetia -] 10 mg PO HS 08/18/17 Furosemide [Lasix] 40 mg PO DAILY 08/18/17 Insulin Pump Controller [Snap Insulin Pump Controller] 1 each ASDIR 08/18/17 Montelukast Sodium [Singulair] 10 mg PO DAILY 08/18/17 Rosuvastatin Calcium [Crestor] 10 mg PO DAILY 08/18/17 Tiotropium [place] [Spiriva] 1 puff IH DAILY 08/18/17 Finasteride [Proscar -] 5 mg PO DAILY tablet 09/20/17 Lipase/Protease/Amylase [Stacy Hackett 36,000 Units Capsule] 1 cap PO TIDCM capsule. 09/20/17 Ramipril [Altace] 10 mg PO DAILY capsule 09/20/17 Tamsulosin HCl [Flomax -] 0.4 mg PO DAILY@0830 cap.er.24h 09/20/17 Amitriptyline HCl [Elavil -] 75 mg PO DAILY 03/30/18 Gabapentin 800 mg PO TID 03/30/18 Albuterol 0.083% Nebulizer Elena [Ventolin 0.083% Nebulizer Soln -] 1 neb NEB Q6H #60 vial 07/26/18 Lidocaine 5% Patch [Lidoderm -] 1 patch TP DAILY #30 patch 07/26/18 Mometasone Furoate [Asmanex 220Mcg -] 2 puff IH BID #2 inhaler 07/26/18 Prednisone See Taper PO ASDIR #64 tablet 07/26/18 This patient is new to me today: Yes Date on this admission: 08/02/18 Emergency Visit: Yes ED Registration Date: 07/20/18 Care time: The patient presented to the Emergency Department on the above date and was hospitalized for further evaluation of their emergent condition. Critical Care patient: No - Discharge Referral Referred to [facility] No
[2018-07-26 15:10] VITALS: BP 148/65; PULSE 118; TEMP 98
[2018-07-27] MEDS ORDERED: predniSONE 20 MG TABLET (UD) PO SCH (10:00)
== END 2018-07-26 18:19 | disposition home health service (06) | DRG 190 ==
LOC: JER 12:49 → JERBED 17:57 → J4W 07-20 05:58 → OBSVTOIN 07-20 16:43 → JSAMEDAYSX 07-22 13:42 → J5S 07-22 13:43
PROVIDERS: ADMIT Internal Medicine; ATTEND Internal Medicine
DX: J44.1 Chronic obstructive pulmonary disease with (acute) exacerbation (principal); I50.31 Acute diastolic (congestive) heart failure; K86.1 Other chronic pancreatitis; J45.51 Severe persistent asthma with (acute) exacerbation; K86.2 Cyst of pancreas; N17.9 Acute kidney failure, unspecified; I13.0 Hypertensive heart and chronic kidney disease with heart failure and stage 1 through stage 4 chronic kidney disease, or unspecified chronic kidney disease; E11.42 Type 2 diabetes mellitus with diabetic polyneuropathy; N18.9 Chronic kidney disease, unspecified; E11.22 Type 2 diabetes mellitus with diabetic chronic kidney disease; I25.10 Atherosclerotic heart disease of native coronary artery without angina pectoris; K57.90 Diverticulosis of intestine, part unspecified, without perforation or abscess without bleeding; E78.00 Pure hypercholesterolemia, unspecified; I25.2 Old myocardial infarction; M54.5 Low back pain; I27.20 Pulmonary hypertension, unspecified; R07.89 Other chest pain; E78.5 Hyperlipidemia, unspecified; J44.9 Chronic obstructive pulmonary disease, unspecified; M54.89 Other dorsalgia; N40.0 Benign prostatic hyperplasia without lower urinary tract symptoms; E11.65 Type 2 diabetes mellitus with hyperglycemia; G47.33 Obstructive sleep apnea (adult) (pediatric); F41.8 Other specified anxiety disorders; R91.1 Solitary pulmonary nodule; R10.10 Upper abdominal pain, unspecified; K59.00 Constipation, unspecified; F43.22 Adjustment disorder with anxiety; R00.0 Tachycardia, unspecified; E66.9 Obesity, unspecified; Z68.36 Body mass index [BMI] 36.0-36.9, adult; Z95.1 Presence of aortocoronary bypass graft; Z95.5 Presence of coronary angioplasty implant and graft; Z93.0 Tracheostomy status
CPT/HCPCS: 36415; 70450-TC; 71046-TC-FY; 80048; 80053; 80061; 82550; 82553; 82803; 82947; 82962; 83690; 83721; 83735; 83880; 84100; 84484; 85025; 85027; 85610; 85730; 87070; 87205; 87804; 93005; 93010; 93306-TC; 93971-TC; 94150; 94640; 94761; 97116-GP; 97161-GP; 99285-25; G0378; J1644

== ENCOUNTER 2018-09-27 12:30 | Emergency (ER) | payer OTHER ==
[2018-09-27 13:00] VITALS: BP 135/76; PULSE 100; TEMP 98.1; BMI 36.9
[2018-09-27] MEDS ORDERED: HYDROmorphone HCL CARPU-JECT 2 MG/1 ML DISP.SYRIN IVPB ONE (13:19)
[2018-09-27] MEDS ORDERED: ONDANSETRON 4 MG/2 ML VIAL IVPUSH ONE (13:19)
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
[2018-09-27] MEDS ORDERED: ALBUTEROL SO4 2.5/IPRATROPIUM 0.5 INH SOL 3 ML VIAL.NEB. NEB ONE (13:33)
[2018-09-27] MEDS ORDERED: HYDROmorphone HCl 2 MG/ML VIAL ONE (13:45)
[2018-09-27] MEDS ORDERED: ONDANSETRON 4 MG/2 ML VIAL ONE (13:46)
[2018-09-27 14:14] LABS: BASO % 0.8 % (0-2.0); EOS % 0.8 % (0-4.5); HEMATOCRIT 34.1 % (35.4-49); LYMPH % 40.2 % (8-40); MCH 26.8 pg (25.7-33.7); MCHC 32.4 g/dl (32.0-35.9); MEAN CELL VOLUME 82.8 fl (80-96); MONO % 11.5 % (3.8-10.2); NEUT % 46.7 % (42.8-82.8); PLATELET COUNT 339 K/MM3 (134-434); RBC 4.11 M/mm3 (4.00-5.60); RDW 15.7 % (11.9-15.9); WHITE BLOOD COUNT 8.9 K/mm3 (4.0-10.0)
[2018-09-27 14:56] LABS: ALBUMIN 3.5 g/dl (3.4-5.0); ALK PHOS 105 U/L (45-117); ANION GAP 5 MMOL/L (8-16); BILIRUBIN,TOTAL 0.3 mg/dL (0.2-1); BLOOD UREA NITROGEN 25 mg/dL (7-18); CALCIUM 9.1 mg/dL (8.5-10.1); CHLORIDE 104 mmol/L (98-107); CO2 29 mmol/L (21-32); CREATININE 1.6 mg/dL (0.55-1.3); GLUCOSE,RANDOM 176 mg/dL (74-106); LIPASE 140 U/L (73-393); POTASSIUM 4.4 mmol/L (3.5-5.1); SGOT/AST 29 U/L (15-37); SGPT/ALT 53 U/L (13-61); SODIUM 138 mmol/L (136-145); TOT PROT 6.8 g/dl (6.4-8.2)
[2018-09-27] MEDS ORDERED: morphine CARPU-JECT 4 MG/1 ML DISP.SYRIN IVPUSH ONE (15:36)
[2018-09-27] MEDS ORDERED: morphine SULFATE 4 MG/ML VIAL ONE (15:37)
--- NOTE | 2018-09-27 15:37 | EKG ---
Test Reason : Blood Pressure : / mmHG Vent. Rate : 095 BPM Atrial Rate : 095 BPM P-R Int : 170 ms QRS Dur : 086 ms QT Int : 352 ms P-R-T Axes : 046 010 015 degrees QTc Int : 442 ms NORMAL SINUS RHYTHM NORMAL ECG WHEN COMPARED WITH ECG OF 20-JUL-2018 09:02, NO SIGNIFICANT CHANGE WAS FOUND Confirmed by Mateusz Roblero MD ([id number]) on 09/27/2018 3:37:34 PM Referred By: Confirmed By:Mateusz Roblero MD
[2018-09-27] MEDS ORDERED: SODIUM CHLORIDE 500 ML IV STA (18:21)
--- NOTE | 2018-09-27 19:43 | PDOC ---
*Physical Exam - Vital Signs Last Vital Signs Temp Pulse Resp BP Pulse Ox 98.1 F 100 H 20 135/76 100 09/27/18 12:50 09/27/18 12:50 09/27/18 12:50 09/27/18 12:50 09/27/18 12:50 - Physical Exam General Appearance: Yes: Appropriately Dressed Neck: positive: Other (trach in place) Respiratory/Chest: positive: Lungs Clear, Normal Breath Sounds Gastrointestinal/Abdominal: positive: Normal Bowel Sounds, Tender (generalized) , Soft Extremity: positive: Other Integumentary: positive: Dry, Warm Neurologic: positive: Fully Oriented, Alert ED Treatment Course - LABORATORY CBC & Chemistry Diagram: 09/27/18 14:01 09/27/18 14:01 - ADDITIONAL ORDERS Additional order review: Laboratory Results 09/27/18 09/27/18 14:01 14:01 Sodium 138 Potassium 4.4 Chloride 104 Carbon Dioxide 29 Anion Gap 5 L BUN 25 H Creatinine 1.6 H Creat Clearance w eGFR 43.74 Random Glucose 176 H Calcium 9.1 Total Bilirubin 0.3 AST 29 ALT 53 Alkaline Phosphatase 105 Creatine Kinase 794 H Creatine Kinase Index 1.4 CK-MB (CK-2) 11.8 H Troponin I < 0.02 Total Protein 6.8 Albumin 3.5 Lipase 140 09/27/18 14:01 RBC 4.11 MCV 82.8 MCHC 32.4 RDW 15.7 MPV 7.0 L Neutrophils % 46.7 D Lymphocytes % 40.2 H D Monocytes % 11.5 H Eosinophils % 0.8 D Basophils % 0.8 D - Medications Given in the ED: ED Medications Discontinued Medications Generic Name Dose Route Start Last Admin Trade Name Pawelq PRN Reason Stop Dose Admin Albuterol/Ipratropium 1 amp 09/27/18 13:33 09/27/18 14:52 Duoneb - NEB 09/27/18 13:34 Not Given ONCE ONE Hydromorphone HCl 2 mg 09/27/18 13:19 09/27/18 14:02 Dilaudid Injection - IVPB 09/27/18 13:20 2 mg ONCE ONE Administration Morphine Sulfate 4 mg 09/27/18 15:36 09/27/18 15:45 Morphine Injection - IVPUSH 09/27/18 15:37 4 mg ONCE ONE Administration Ondansetron HCl 4 mg 09/27/18 13:19 09/27/18 14:02 Zofran Injection IVPUSH 09/27/18 13:20 4 mg ONCE ONE Administration Medical Decision Making - Medical Decision Making 09/27/18 19:38 CTAP: moderate fecal retention. no acute findings. *DC/Admit/Observation/Transfer Diagnosis at time of Disposition: Abdominal pain in male Constipation Qualifiers: Constipation type: unspecified constipation type Qualified Code(s): K59.00 - Constipation, unspecified - Discharge Dispostion Disposition: HOME - Prescriptions Prescriptions: Mag Hydrox/Al Hydrox/Simeth [Mylanta Suspension -] 30 ml PO Q6H PRN #1 bottle PRN Reason: Dyspepsia Polyethylene Glycol 3350 [Miralax (For Daily Use) -] 17 gm PO BID #1 bottle Sennosides/Docusate Sodium [Senna Laxative Tablet] 1 each PO DAILY #20 tablet - Referrals - Patient Instructions Printed Discharge Instructions: Constipation Additional Instructions: drink plenty of fluids take Maalox and Miralax 2 times daily follow up with your gastroenterology doctor as soon as possible return to the ER immediately if symptoms worsen. Additional Instructions: * Please call your personal physician to report your Emergency Department visit and to report your progress, if any. * If there is no improvement in symptoms in 2 days call your physician. * Return to the Emergency Department for any worsening symptoms. - Post Discharge Activity
--- NOTE | 2018-09-30 18:30 | CON.GI ---
Consult Consult Specialty:: GI Referred by:: Hospitalist Service Reason for Consultation:: Anemia - History of Present Illness Chief Complaint: Patient non-verbal. Patient sent to hospital due to FOBT + History of Present Illness: 62M admitted for evaluation of FOBT +. He was recently admitted. He had EGD early september that revealed severe ulcerated LA grade D esophagitis and a large hiatal hernia. This hernia and esophagitis has been suspected to play a role in his anemia and occult blood in stool for multiple years. His mother has opted not to have it repaired due to potential risks involved with surgery. He apparently has valvular heart disease that would need repair prior to surgery as per his mother. . He last had a colonoscopy in 2016 that was unremarkable. he has had multiple upper endoscopies. Last year he had a push enteroscopy that was unrevealing aside from the large hiatal hernia and reflux esophagitis. He usually has green iron stained bowel movements. There has been no gross rectal bleeding or melena. Hgb this afternoon is 10.9. His baseline is 9-10. 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 Planned EMG/ NCVs studies and evaluation of motor weakness in process by treating neurologist Dr. Singh) Cardio/Vascular: Yes: CAD (Last stents placed x 2 last year per patient), CHF (s /p WA several years ago; s/p stenting. mild CHF in the past.), HTN, Hyperlipdemia, [place], Pulmonary Hypertension Pulmonary: Yes: Asthma, Sleep Apnea Gastrointestinal: Yes: Constipation, Pancreatitis (? history of chronic pancreatitis with episodes of acute pancreatitis), Other (FECAL INCONTINENCE SECONDARY TO OVERFLOW followed by Dr. Abdoulaye Wu, IPMN, PANCREATITIS . HAD EPISODE OF ISCHEMIC COLITIS LAST ADMISSION) Renal/: Yes: BPH Psych: Yes: Depression Musculoskeletal: Yes: Chronic low back pain (has back stimulator), Other ( CHRONIC NECK PAIN s/p Lumbar and Cervical fusion ) Endocrine: Yes: Diabetes Mellitus (has insulin pump) - Past Surgical History Past Surgical History: Yes: Breast Biopsy, Colonoscopy, Laminectomy, Stent (1 non eluting, 5 eluting) - Alcohol/Substance Use Hx Alcohol Use: No History of Substance Use: reports: None, Prescription (opiates for chronic pain post cervical spine surgery. 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 History of Recent Travel: No Home Medications - Allergies Allergies/Adverse Reactions: Allergies Allergy/AdvReac Type Severity Reaction Status Date / Time shellfish derived Allergy Severe Verified 09/27/18 12:52 Tetracyclines Allergy Severe Verified 09/27/18 12:52 - Home Medications Home Medications: Ambulatory Orders Albuterol Sulfate Inhaler - [Ventolin HFA Inhaler -] 1 - 2 inh PO Q4H PRN Arformoterol Tartrate [Brovana] 15 mcg IH ASDIR 08/18/17 Aspirin [Aspirin EC] 81 mg PO DAILY 08/18/17 Clopidogrel Bisulfate [Plavix] 75 mg PO DAILY 08/18/17 Dexlansoprazole [Dexilant] 30 mg PO DAILY 08/18/17 Ezetimibe [Zetia -] 10 mg PO HS 08/18/17 Furosemide [Lasix] 40 mg PO DAILY 08/18/17 Insulin Pump Controller [Snap Insulin Pump Controller] 1 each ASDIR 08/18/17 Montelukast Sodium [Singulair] 10 mg PO DAILY 08/18/17 Rosuvastatin Calcium [Crestor] 10 mg PO DAILY 08/18/17 Tiotropium [place] [Spiriva] 1 puff IH DAILY 08/18/17 Finasteride [Proscar -] 5 mg PO DAILY tablet 09/20/17 Lipase/Protease/Amylase [Stacy Hackett 36,000 Units Capsule] 1 cap PO TIDCM capsule. 09/20/17 Ramipril [Altace] 10 mg PO DAILY capsule 09/20/17 Tamsulosin HCl [Flomax -] 0.4 mg PO DAILY@0830 cap.er.24h 09/20/17 Amitriptyline HCl [Elavil -] 75 mg PO DAILY 03/30/18 Gabapentin 800 mg PO TID 03/30/18 Albuterol 0.083% Nebulizer Elena [Ventolin 0.083% Nebulizer Soln -] 1 amp NEB Q8H PRN #30 amp 07/26/18 Lidocaine 5% Patch [Lidoderm -] 1 patch TP DAILY #30 patch 07/26/18 Mometasone Furoate [Asmanex 220Mcg -] 2 puff IH BID #2 inhaler 07/26/18 Prednisone See Taper PO ASDIR #64 tablet 07/26/18 Mag Hydrox/Al Hydrox/Simeth [Mylanta Suspension -] 30 ml PO Q6H PRN #1 bottle Polyethylene Glycol 3350 [Miralax (For Daily Use) -] 17 gm PO BID #1 bottle Sennosides/Docusate Sodium [Senna Laxative Tablet] 1 each PO DAILY #20 tablet Family Disease History - Family Disease History Family Disease History: Diabetes: Mother ( 58: diabetic complications), CA: Father ( 49: asbestosis), Respiratory: Brother (bronchial asthma, DVT), Other: Mother, Sister (BCA), Son (2, healthy), Daughter (1, healthy) Physical Exam-GI Vital Signs: Vital Signs Temperature 98.1 F 09/27/18 12:50 Pulse Rate 100 H 09/27/18 12:50 Respiratory Rate 20 09/27/18 12:50 Blood Pressure 135/76 09/27/18 12:50 O2 Sat by Pulse Oximetry (%) 100 09/27/18 12:50 Labs: CBC, BMP 09/27/18 14:01 09/27/18 14:01
== END 2018-09-27 20:22 | disposition home or self-care (01) ==
LOC: JER 12:30
PROC: 3E0337Z Introduction of Electrolytic and Water Balance Substance into Peripheral Vein, Percutaneous Approach (ICD-10-PCS; principal; 2018-09-27)
PROC: 3E033NZ Introduction of Analgesics, Hypnotics, Sedatives into Peripheral Vein, Percutaneous Approach (ICD-10-PCS; 2018-09-27)
PROC: 3E033NZ Introduction of Analgesics, Hypnotics, Sedatives into Peripheral Vein, Percutaneous Approach (ICD-10-PCS; 2018-09-27)
DX: K59.00 Constipation, unspecified (principal); I25.10 Atherosclerotic heart disease of native coronary artery without angina pectoris; I11.0 Hypertensive heart disease with heart failure; Z95.5 Presence of coronary angioplasty implant and graft; I25.2 Old myocardial infarction; E78.5 Hyperlipidemia, unspecified; J44.9 Chronic obstructive pulmonary disease, unspecified; J45.909 Unspecified asthma, uncomplicated; M62.81 Muscle weakness (generalized); M54.5 Low back pain; G89.29 Other chronic pain; Z99.89 Dependence on other enabling machines and devices; Z93.0 Tracheostomy status; Z87.19 Personal history of other diseases of the digestive system
CPT/HCPCS: 36415; 71045-TC-FY; 74176-TC; 80053; 82550; 82553; 83690; 84484; 85025; 93005; 93010; 99282-25

== ENCOUNTER 2018-10-12 19:08 | Observation (INO) | payer OTHER ==
[2018-10-12] MEDS ORDERED: ASPIRIN 81 MG CHEWABLE TABLETS PO ONE (19:29)
--- NOTE | 2018-10-12 19:30 | PDOC ---
Rapid Medical Evaluation Time Seen by Provider: 10/12/18 19:27 Medical Evaluation: Allergies Allergy/AdvReac Type Severity Reaction Status Date / Time shellfish derived Allergy Severe Verified 09/27/18 12:52 Tetracyclines Allergy Severe Verified 09/27/18 12:52 10/12/18 19:28 I have performed a brief in-person evaluation of this patient. The patient presents with a chief complaint of: chest pain x1 day sent by PCP Pertinent physical exam findings: NAD I have ordered the following: Cardiac work up The patient will proceed to the ED for further evaluation. 10/12/18 19:29 Discharge Disposition - Diagnosis Chest pain - Referrals - Patient Instructions - Post Discharge Activity
[2018-10-12] MEDS ORDERED: ASPIRIN 81 MG CHEWABLE TABLETS ONE (19:59)
[2018-10-12] MEDS ORDERED: HYDROmorphone HCL 2 MG TABLET PO ONE (20:09)
--- NOTE | 2018-10-12 20:09 | PDOC ---
Attending Attestation - [facility] HPI: 10/12/18 20:37 The patient is a 62 year old male, with a significant PMH of CAD s/p [place], stents x6 (most recently 12/2015), CABG, HTN, HLD, chronic pancreatitis, chronic back pain, SBO, incarcerated hernia s/p repair x2 (September 2017), H.Pylori, BPH, COPD, bronchial asthma, tracheostomy in place (unplugs when sleeping for GRACIE), and anxiety, who presents to the emergency department by PCP for evaluation of a constant, sharp chest pain and lower back pain. The patient states they began to experience the chest pain this afternoon before seeing their PCP. He also notes dizziness and headache. The patient notes in regard to the lower back pain , he has known L2 to S1 herniated discs with impingement by neurologist. The patient denies chest pain, shortness of breath, headache and dizziness. Denies fever, chills, nausea, vomit, diarrhea and constipation. Denies dysuria, frequency, urgency and hematuria. Allergies: NKA Social history: None reported - Physicial Exam PE: 10/12/18 20:58 GENERAL: Awake, alert, and fully oriented, in no acute distress HEAD: No signs of trauma EYES: PERRLA, EOMI, sclera anicteric, conjunctiva clear ENT: Auricles normal inspection, hearing grossly normal, nares patent, oropharynx clear without exudates. Moist mucosa NECK: Normal ROM, supple, no lymphadenopathy, JVD, or masses LUNGS: (+) little diminished at the bases. (+)tracheostomy in place. No wheezes , and no crackles HEART: Regular rate and rhythm, normal S1 and S2, no murmurs, rubs or gallops ABDOMEN: (+)Mild epigastric and RUQ tenderness. Soft, normoactive bowel sounds. No guarding, no rebound. No masses EXTREMITIES: (+) 2+pitting edema below the knee. Normal range of motion. No clubbing or cyanosis. No cords, erythema, or tenderness BACK: (+)cervical and lumbar spine incisions well healed. NEUROLOGICAL: Cranial nerves II through XII grossly intact. Normal speech, normal gait SKIN: Warm, Dry, normal turgor, no rashes or lesions noted. <Vivien Matos - Last Filed: 10/12/18 20:58> - Resident Resident Name: Jozef Middleton - ED Attending Attestation I have performed the following: I have examined & evaluated the patient, The case was reviewed & discussed with the resident, I agree w/resident's findings & plan, Exceptions are as noted - Medical Decision Making 10/12/18 20:06 I, Dr. Carmella Otero, DO, attest that this document has been prepared under my direction and personally reviewed by me in its entirety. I further attest, that it accurately reflects all work, treatment, procedures and medical decision -making performed by me. 10/12/18 21:01 a/p: 62yo male with chronic LBP, dm, herniated disc hx and prior fusion of c spine and pinning to L3-4 -sent by Dr. Gustafson for eval of lbp -ran out of his opiate meds -hasn't follow up with his surgeons or called them that the back pain is still present -takes dilaudid 4mg oral-ran out a few days ago -also has chronic pancreatitis- states abd pain, but denies n/v/d, asking to eat -pt with hx of CAD- with stents, c/o chest pain that radiated across his chest earlier today -PMD Dr. Knox -Cards: Dr. Elaine -GI: Dr. Beckman -Neurosx: from [place], surgery at [place] [facility] -worsening LE edema, elevated BP in the office -will send labs, ekg, cxr, ct lumbar spine, lipase, trop, bnp -will monitor and reassess 10/12/18 22:30 resident discussed the case with with ALVA Anderson who accepts pt to tele obs for further eval of his cp ultrasound shows a gallstone, but no acute oleg ct shows spinal stenosis and neuroforaminal narrowing- known herniated discs <Carmella Otero - Last Filed: 10/12/18 22:31> Heart Score/ECG Review - ECG Intrepretation Comment:: 10/12/18 20:59 sinus at 89, nl axis, nl interval, no acute st/t wave findings <Carmella Otero - Last Filed: 10/12/18 22:31> Attestations - Attestations 10/12/18 20:37 Documentation prepared by Vivien Matos, acting as director of medical staff services for Carmella Otero DO. <Vivien Matos - Last Filed: 10/12/18 20:58>
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
[2018-10-12 20:37] LABS: EOS % 1.8 % (0-4.5); HEMATOCRIT 36.9 % (35.4-49); HEMOGLOBIN 11.9 GM/dL (11.7-16.9); LYMPH % 44.3 % (8-40); MCH 26.6 pg (25.7-33.7); MCHC 32.2 g/dl (32.0-35.9); MEAN CELL VOLUME 82.7 fl (80-96); NEUT % 41.9 % (42.8-82.8); PLATELET COUNT 335 K/MM3 (134-434); RBC 4.46 M/mm3 (4.00-5.60); RDW 15.3 % (11.9-15.9); WHITE BLOOD COUNT 8.8 K/mm3 (4.0-10.0)
[2018-10-12] MEDS ORDERED: HYDROmorphone HCL 2 MG TABLET ONE (20:39)
[2018-10-12 20:57] LABS: INR 1.02 (0.83-1.09)
[2018-10-12 21:08] LABS: ALBUMIN 3.6 g/dl (3.4-5.0); ALK PHOS 118 U/L (45-117); ANION GAP 8 MMOL/L (8-16); BILIRUBIN,TOTAL 0.3 mg/dL (0.2-1); BLOOD UREA NITROGEN 21 mg/dL (7-18); CALCIUM 8.8 mg/dL (8.5-10.1); CHLORIDE 104 mmol/L (98-107); CO2 27 mmol/L (21-32); CREATININE 1.5 mg/dL (0.55-1.3); GLUCOSE,RANDOM 188 mg/dL (74-106); LIPASE 140 U/L (73-393); MAGNESIUM 2.2 mg/dL (1.8-2.4); POTASSIUM 4.6 mmol/L (3.5-5.1); SGOT/AST 58 U/L (15-37); SGPT/ALT 68 U/L (13-61); SODIUM 139 mmol/L (136-145); TOT PROT 7.1 g/dl (6.4-8.2)
[2018-10-12] MEDS ORDERED: morphine CARPU-JECT 4 MG/1 ML DISP.SYRIN IVPUSH ONE (22:07)
[2018-10-12] MEDS ORDERED: morphine SULFATE 4 MG/ML VIAL ONE (22:21)
[2018-10-12] MEDS ORDERED: MORPHINE SULFATE 2 MG/ML VIAL ONE (22:21)
[2018-10-12] MEDS ORDERED: LIDOCAINE 5% TOPICAL PATCH TP ONE (22:32)
--- NOTE | 2018-10-12 22:39 | HP ---
Admitting History and Physical - Admission Chief Complaint: Chest Pain, Back Pain History of Present Illness: This is a 62 y/o male with a significant past medical history of CAD s/p CT, stents x6 (most recently 12/2015), CABG, HTN, HLD, Chronic Pancreatitis, Chronic Back pain, SBO, Incarcerated Hernia s/p repair x2 (September 2017), H.Pylori , BPH, COPD, Bronchial Asthma, Tracheostomy in place (unplugs when sleeping for GRACIE), Anxiety. Who presents to the emergency department by PCP for evaluation of a constant, sharp "electric current like" chest pain and lower back pain. He reports that his BP in the office was 188/102, FS 161. The patient states he began to experience the chest pain this afternoon before seeing his PCP. Patient reports dizziness and headache as well. The patient reports being well known to his neurologist, neuro branch operations specialist for L2 to S1 herniated discs with impingement. Patient reports that he ran out of his pain medications. 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 Planned EMG/ NCVs studies and evaluation of motor weakness in process by treating neurologist Dr. Singh) Cardiovascular: Yes: CAD (Last stents placed x 2 last year per patient), CHF (s/ p CT several years ago; s/p stenting. mild CHF in the past.), HTN, Hyperlipdemia , CT, Pulmonary Hypertension Pulmonary: Yes: Asthma, Sleep Apnea Gastrointestinal: Yes: Constipation, Pancreatitis (? history of chronic pancreatitis with episodes of acute pancreatitis), Other (FECAL INCONTINENCE SECONDARY TO OVERFLOW followed by Dr. Abdoulaye Wu, IPMN, PANCREATITIS . HAD EPISODE OF ISCHEMIC COLITIS LAST ADMISSION) Renal/: Yes: BPH Psych: Yes: Depression Musculoskeletal: Yes: Chronic low back pain (has back stimulator), Other ( CHRONIC NECK PAIN s/p Lumbar and Cervical fusion ) Endocrine: Yes: Diabetes Mellitus (has insulin pump) - Past Surgical History Past Surgical History: Yes: Breast Biopsy, Colonoscopy, Laminectomy, Stent (1 non eluting, 5 eluting) - Smoking History Smoking history: Never smoked Have you smoked in the past 12 months: No Aproximately how many cigarettes per day: 0 - Alcohol/Substance Use Hx Alcohol Use: No History of Substance Use: reports: None, Prescription (opiates for chronic pain post cervical spine surgery. 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 History of Recent Travel: No Home Medications - Allergies Allergies/Adverse Reactions: Allergies Allergy/AdvReac Type Severity Reaction Status Date / Time shellfish derived Allergy Severe Verified 10/12/18 19:31 Tetracyclines Allergy Severe Verified 10/12/18 19:31 - Home Medications Home Medications: Ambulatory Orders Albuterol Sulfate Inhaler - [Ventolin HFA Inhaler -] 1 - 2 inh PO Q4H PRN Arformoterol Tartrate [Brovana] 15 mcg IH ASDIR 08/18/17 Aspirin [Aspirin EC] 81 mg PO DAILY 08/18/17 Clopidogrel Bisulfate [Plavix] 75 mg PO DAILY 08/18/17 Dexlansoprazole [Dexilant] 30 mg PO DAILY 08/18/17 Ezetimibe [Zetia -] 10 mg PO HS 08/18/17 Furosemide [Lasix] 40 mg PO DAILY 08/18/17 Insulin Pump Controller [Snap Insulin Pump Controller] 1 each ASDIR 08/18/17 Montelukast Sodium [Singulair] 10 mg PO DAILY 08/18/17 Rosuvastatin Calcium [Crestor] 10 mg PO DAILY 08/18/17 Tiotropium [place] [Spiriva] 1 puff IH DAILY 08/18/17 Finasteride [Proscar -] 5 mg PO DAILY tablet 09/20/17 Lipase/Protease/Amylase [Stacy Hackett 36,000 Units Capsule] 1 cap PO TIDCM capsule. 09/20/17 Ramipril [Altace] 10 mg PO DAILY capsule 09/20/17 Tamsulosin HCl [Flomax -] 0.4 mg PO DAILY@0830 cap.er.24h 09/20/17 Amitriptyline HCl [Elavil -] 75 mg PO DAILY 03/30/18 Gabapentin 800 mg PO TID 03/30/18 Albuterol 0.083% Nebulizer Elena [Ventolin 0.083% Nebulizer Soln -] 1 amp NEB Q8H PRN #30 amp 07/26/18 Lidocaine 5% Patch [Lidoderm -] 1 patch TP DAILY #30 patch 07/26/18 Mometasone Furoate [Asmanex 220Mcg -] 2 puff IH BID #2 inhaler 07/26/18 Prednisone See Taper PO ASDIR #64 tablet 07/26/18 Mag Hydrox/Al Hydrox/Simeth [Mylanta Suspension -] 30 ml PO Q6H PRN #1 bottle Polyethylene Glycol 3350 [Miralax (For Daily Use) -] 17 gm PO BID #1 bottle Sennosides/Docusate Sodium [Senna Laxative Tablet] 1 each PO DAILY #20 tablet Family Disease History - Family Disease History Family Disease History: Diabetes: Mother ( 58: diabetic complications), CA: Father ( 49: asbestosis), Respiratory: Brother (bronchial asthma, DVT), Other: Mother, Sister (BCA), Son (2, healthy), Daughter (1, healthy) Review of Systems - Review of Systems Constitutional: reports: Diaphoresis Eyes: reports: No Symptoms HENT: reports: No Symptoms Neck: reports: No Symptoms Cardiovascular: reports: Chest Pain Gastrointestinal: reports: Abdominal Pain Genitourinary: reports: No Symptoms Breasts: reports: No Symptoms Reported Musculoskeletal: reports: Back Pain Integumentary: reports: No Symptoms Neurological: reports: Dizziness Endocrine: reports: No Symptoms Hematology/Lymphatic: reports: No Symptoms Psychiatric: reports: No Symptoms Physical Examination Vital Signs: Vital Signs Temperature 98.3 F 10/12/18 19:28 Pulse Rate 83 10/12/18 19:28 Respiratory Rate 21 H 10/12/18 19:28 Blood Pressure 133/84 10/12/18 19:28 O2 Sat by Pulse Oximetry (%) 100 10/12/18 19:28 Constitutional: Yes: Well Nourished, Anxious, Mild Distress, Obese Eyes: Yes: WNL, Conjunctiva Clear, EOM Intact, PERRL HENT: Yes: WNL, Atraumatic, Normocephalic Neck: Yes: Supple, Trachea Midline, Other (trach) Cardiovascular: Yes: Regular Rate and Rhythm, S1, S2 Respiratory: Yes: WNL, Regular, CTA Bilaterally Gastrointestinal: Yes: Normal Bowel Sounds, Soft, Abdomen, Obese Renal/: Yes: WNL Breast(s): Yes: WNL Musculoskeletal: Yes: Back Pain Edema: Yes Edema: LLE: 2+, RLE: 2+ Peripheral Pulses WNL: Yes Neurological: Yes: WNL, Alert, Oriented Psychiatric: Yes: WNL, Alert, Oriented Labs: CBC, BMP 10/12/18 20:18 10/12/18 20:18 Imaging - Results Chest X-ray: Image Reviewed Cat Scan: Image Reviewed Ultrasound: Image Reviewed EKG: Image Reviewed Problem List - Problems (1) Chest pain Code(s): R07.9 - CHEST PAIN, UNSPECIFIED Qualifiers: Chest pain type: other chest pain Qualified Code(s): R07.89 - Other chest pain; R07.8 - Other chest pain (2) Intractable low back pain Code(s): M54.5 - LOW BACK PAIN (3) Abdominal pain in male Code(s): R10.9 - UNSPECIFIED ABDOMINAL PAIN (4) ASHD (arteriosclerotic heart disease) Code(s): I25.10 - ATHSCL HEART DISEASE OF [place] CORONARY ARTERY W/O ANG PCTRS (5) COPD (chronic obstructive pulmonary disease) Code(s): J44.9 - CHRONIC OBSTRUCTIVE PULMONARY DISEASE, UNSPECIFIED (6) Coronary artery disease Code(s): I25.10 - ATHSCL HEART DISEASE OF [place] CORONARY ARTERY W/O ANG PCTRS (7) Diabetes mellitus Code(s): E11.9 - TYPE 2 DIABETES MELLITUS WITHOUT COMPLICATIONS Qualifiers: Diabetes mellitus type: type 2 Diabetes mellitus complication detail: with unspecified neuropathy (8) GRACIE (obstructive sleep apnea) Code(s): G47.33 - OBSTRUCTIVE SLEEP APNEA (ADULT) (PEDIATRIC) (9) Obesity Code(s): E66.9 - OBESITY, UNSPECIFIED (10) Tracheostomy in place Code(s): Z98.89 - OTHER SPECIFIED POSTPROCEDURAL STATES * DO NOT USE * Assessment/Plan This is a 62 y/o man with a PMHx of: CAD s/p CT stents x6, CABG, HTN, HLD, Chronic Back Pain, COPD, Asthma, Chronic Pancreatitis, SBO, GRACIE. Placed in Telemetry Observation for Chest Pain, Intractable Back Pain for further evaluation of their emergent condition. Plan: 1. Card: Chest Pain CAD HTN HLD Admit HEART Score 3 Continue bobbin cleaner hand CXR- reviewed EKG- reviewed Serial Enzymes Echo 07/2018- reviewed Appreciate Cardiology consult Monitor CBC, BMP Continue home meds 2. Ortho: Intractable Pain Morphine Sulfate prn Oxycontin prn Consider Pain Management consult PT for outpatient Neurovascular checks 3. Pulm: COPD Asthma GRACIE Trach stable no acute flare Continue home meds Patient denies CPAP use for GRACIE O2 CXR- reviewed 4. GI: Chronic Pancreatitis Lipase-nl Abd US- diffuse hepatic steatosis, cholelithiasis, 1cm pancreatic cyst, no gross interval change Monitor CBC, BMP Consider GI consult FEN PO fluids as tolerated Replete lytes prn Low Na Diet DVT ppx OOb SCDs Code Status: Full Code Dispo: Observation Visit type - Emergency Visit Emergency Visit: Yes ED Registration Date: 10/12/18 Care time: The patient presented to the Emergency Department on the above date and was hospitalized for further evaluation of their emergent condition. - New Patient This patient is new to me today: Yes Date on this admission: 10/12/18 - Critical Care Critical Care patient: No
[2018-10-12] MEDS: LIDOCAINE PATCH REMOVAL MC SCH (22:48)
[2018-10-12] MEDS ORDERED: LIDOCAINE 5% TOPICAL PATCH ONE (22:50)
[2018-10-13] MEDS: morphine SULFATE 4 MG/ML VIAL IVPUSH PRN ×4 (03:10→21:25)
[2018-10-13 03:26] VITALS: BMI 36.6
[2018-10-13 07:46] LABS: BASO % 0.9 % (0-2.0); EOS % 2.1 % (0-4.5); HEMATOCRIT 34.1 % (35.4-49); HEMOGLOBIN 10.9 GM/dL (11.7-16.9); LYMPH % 47.5 % (8-40); MCH 26.4 pg (25.7-33.7); MEAN CELL VOLUME 82.3 fl (80-96); NEUT % 37.5 % (42.8-82.8); PLATELET COUNT 324 K/MM3 (134-434); RBC 4.15 M/mm3 (4.00-5.60); RDW 15.5 % (11.9-15.9); WHITE BLOOD COUNT 8.4 K/mm3 (4.0-10.0)
[2018-10-13 08:16] LABS: ANION GAP 8 MMOL/L (8-16); BLOOD UREA NITROGEN 22 mg/dL (7-18); CALCIUM 8.7 mg/dL (8.5-10.1); CHLORIDE 105 mmol/L (98-107); CHOLESTEROL 238 mg/dL (50-200); CO2 28 mmol/L (21-32); CREATININE 1.4 mg/dL (0.55-1.3); GLUCOSE,RANDOM 84 mg/dL (74-106); HDL CHOLESTEROL 41 mg/dL (40-60); MAGNESIUM 2.3 mg/dL (1.8-2.4); PHOSPHOROUS 3.6 mg/dL (2.5-4.9); POTASSIUM 3.8 mmol/L (3.5-5.1); SODIUM 141 mmol/L (136-145); TRIGLYCERIDES 281 mg/dL (0-150)
--- NOTE | 2018-10-13 08:32 | PN ---
Physical Exam: SUBJECTIVE: Patient seen and examined OBJECTIVE: lipid panel elevated, tells me he was non compliant with crestor at home chest pain improved tele: nsr 98, 98 spo2 elevated cpk patient has his own insulin pump with a 3 unit basal rate. monitor bgms. discharge likely tomorrow if no acute overnight events. Vital Signs Period Temp Pulse Resp BP Sys/Gates Pulse Ox Last 24 Hr 97.8 F-98.3 F 79-84 18-21 129-136/64-84 98-100 GENERAL: The patient is awake, alert, and fully oriented, in no acute distress. HEAD: Normal with no signs of trauma. EYES: PERRL, extraocular movements intact, sclera anicteric, conjunctiva clear. No ptosis. ENT: Ears normal, nares patent, oropharynx clear without exudates, moist mucous membranes. NECK: trach tube LUNGS: diminished bilaterally HEART: Regular rate and rhythm,90s ABDOMEN: Soft, nontender, nondistended, normoactive bowel sounds EXTREMITIES: +2 lower ext pitting edema NEUROLOGICAL: Normal speech, gait not observed. PSYCH: Normal mood, normal affect. SKIN: Warm, dry, normal turgor, no rashes or lesions noted Laboratory Results - last 24 hr 10/12/18 10/12/18 10/12/18 20:18 20:18 20:18 WBC 8.8 RBC 4.46 Hgb 11.9 Hct 36.9 MCV 82.7 MCH 26.6 MCHC 32.2 RDW 15.3 Plt Count 335 MPV 7.0 L Absolute Neuts (auto) 3.7 Neutrophils % 41.9 L Lymphocytes % 44.3 H Monocytes % 11.0 H Eosinophils % 1.8 D Basophils % 1.0 Nucleated RBC % 0 PT with INR 12.00 INR 1.02 Sodium 139 Potassium 4.6 Chloride 104 Carbon Dioxide 27 Anion Gap 8 BUN 21 H Creatinine 1.5 H Creat Clearance w eGFR 47.12 POC Glucometer Random Glucose 188 H Calcium 8.8 Phosphorus Magnesium 2.2 Total Bilirubin 0.3 AST 58 H ALT 68 H Alkaline Phosphatase 118 H Creatine Kinase 814 H Creatine Kinase Index 1.3 CK-MB (CK-2) 10.9 H Troponin I < 0.02 B-Natriuretic Peptide 93.0 Total Protein 7.1 Albumin 3.6 Triglycerides Cholesterol Total LDL Cholesterol HDL Cholesterol Lipase 140 10/13/18 10/13/18 10/13/18 02:10 06:20 06:50 WBC 8.4 RBC 4.15 Hgb 10.9 L Hct 34.1 L MCV 82.3 MCH 26.4 MCHC 32.0 RDW 15.5 Plt Count 324 MPV 7.0 L Absolute Neuts (auto) 3.2 Neutrophils % 37.5 L Lymphocytes % 47.5 H Monocytes % 12.0 H Eosinophils % 2.1 Basophils % 0.9 Nucleated RBC % 0 PT with INR INR Sodium Potassium Chloride Carbon Dioxide Anion Gap BUN Creatinine Creat Clearance w eGFR POC Glucometer 93 Random Glucose Calcium Phosphorus Magnesium Total Bilirubin AST ALT Alkaline Phosphatase Creatine Kinase 827 H Creatine Kinase Index 1.4 CK-MB (CK-2) 12.0 H Troponin I < 0.02 B-Natriuretic Peptide Total Protein Albumin Triglycerides Cholesterol Total LDL Cholesterol HDL Cholesterol Lipase 10/13/18 06:50 WBC RBC Hgb Hct MCV MCH MCHC RDW Plt Count MPV Absolute Neuts (auto) Neutrophils % Lymphocytes % Monocytes % Eosinophils % Basophils % Nucleated RBC % PT with INR INR Sodium 141 Potassium 3.8 Chloride 105 Carbon Dioxide 28 Anion Gap 8 BUN 22 H Creatinine 1.4 H Creat Clearance w eGFR 51.02 POC Glucometer Random Glucose 84 Calcium 8.7 Phosphorus 3.6 Magnesium 2.3 Total Bilirubin AST ALT Alkaline Phosphatase Creatine Kinase 774 H Creatine Kinase Index CK-MB (CK-2) Troponin I < 0.02 B-Natriuretic Peptide Total Protein Albumin Triglycerides 281 H Cholesterol 238 H Total LDL Cholesterol 144 H HDL Cholesterol 41 Lipase Active Medications Generic Name Dose Route Start Last Admin Trade Name Freq PRN Reason Stop Dose Admin Miscellaneous 1 each 10/12/18 22:00 10/12/18 22:48 Lidoderm Patch Removal MC Not Given DAILY@2200 [facility] Morphine Sulfate 4 mg 10/13/18 02:00 10/13/18 03:10 Morphine Sulfate IVPUSH 4 mg Q4H PRN Administration PAIN LEVEL 7 - 10 Oxycodone HCl 15 mg 10/13/18 10:00 Oxycontin - PO BID [facility] ASSESSMENT/PLAN: Patient is a 62 year old male with a significant past medical history of hypertension, hyperlipidemia, CAD s/p CO s/p stents x 6 s/p CABG, chronic pancreatitis, chronic back pain (back stimulator), SBO, incarcerated hernia s/p repair x2 (September 2017), H.Pylori, BPH, COPD, tracheostomy in place (unplugs when sleeping for sleep apnea), diabetes mellitus with insulin pump. Placed in Telemetry Observation for Chest Pain, Intractable Back Pain Card: Hypertension: on altace, norvasc. Hyperlipidemia: On crestor, but has been non compliant. CAD s/p CO with stents x 6 s/p CABG (1 non eluding stent, 5 eluting coronary artery stents). On crestor, ramipril, Plavix, aspirin. Chest pain, resolved troponins negative x 3, seen and evaluated by cardiology Pulmonary: Tracheostomy in place, unplugs for sleep in no acute distress on duonebs prn follows with Dr Guzman (paleontologist) Sleep Apnea with chronic tracheostomy, uncaps trach collar during sleep for sleep apnea. Muscular/Skeletal: Chronic Back Pain: dilaudid 4mg po prn, has back stimulator. Follows neurologist outpatient (Dr. Singh) GI: chronic pancreatitis, history, monitor labs. Incarcerated hernia with repair, history, follows GI outpatient. Endocrine: Diabetes Mellitus with insulin pump. Monitor BGMs and continue home insulin pump. fen encourage PO intake monitor electrolytes diabetic diet prophy hold anticoagulation for LOS <48 hours protonix full code Visit type - Emergency Visit Emergency Visit: Yes ED Registration Date: 10/12/18 Care time: The patient presented to the Emergency Department on the above date and was hospitalized for further evaluation of their emergent condition. - New Patient This patient is new to me today: No - Critical Care Critical Care patient: No - Discharge Referral Referred to [facility] No
[2018-10-13] MEDS ORDERED: ALBUTEROL SO4 0.083% IH SOL 2.5 MG/3 ML VIAL.NEB. NEB PRN (08:58)
[2018-10-13] MEDS ORDERED: PATIENT'S OWN MEDICATION (NON-FORMULARY) (Insulin Pump Controller [Snap Insulin Pump Contr MC SCH (09:30)
[2018-10-13] MEDS ORDERED: ARFORMOTEROL TARTRATE 15 MCG/2 ML VIAL NEB SCH (09:30)
--- NOTE | 2018-10-13 09:39 | CON.CARD ---
Consult Consult Specialty:: cardiology Reason for Consultation:: chest pain - History of Present Illness Chief Complaint: Pt A&Ox3; pain in back when he changes from supine to sitting position. No chest pain since the 2 "electrical shocks" he had prompting the admission History of Present Illness: The patient is a 62 year old [facility] male, with a significant PMH of CAD s/p SD, stents x6 (most recently 12/2015), HTN, HLD, chronic pancreatitis, chronic back pain, SBO, incarcerated hernia s/p repair x2 (September 2017), H.Pylori, BPH, COPD, bronchial asthma, tracheostomy in place (unplugs when sleeping for GRACIE), and anxiety, who presents to the emergency department by PCP for evaluation of a constant, sharp chest pain and lower back pain. The patient states they began to experience the chest pain this afternoon before seeing their PCP. He also notes dizziness and headache. The patient notes in regard to the lower back pain , he has known L2 to S1 herniated discs with impingement by neurologist. The patient denies chest pain, shortness of breath, headache and dizziness. Denies fever, chills, nausea, vomit, diarrhea and constipation. Denies dysuria, frequency, urgency and hematuria. Professor Of Oceanography: Bola Elaine (he has missed last appoitments, and has not seen him in over 6 months). 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 Planned EMG/ NCVs studies and evaluation of motor weakness in process by treating neurologist Dr. Singh) Cardio/Vascular: Yes: CAD (Last stents placed x 2 last year per patient), CHF (s /p SD several years ago; s/p stenting. mild CHF in the past.), HTN, Hyperlipdemia, SD, Pulmonary Hypertension Pulmonary: Yes: Asthma, Sleep Apnea Gastrointestinal: Yes: Constipation, Pancreatitis (? history of chronic pancreatitis with episodes of acute pancreatitis), Other (FECAL INCONTINENCE SECONDARY TO OVERFLOW followed by Dr. Abdoulaye Wu, IPMN, PANCREATITIS . HAD EPISODE OF ISCHEMIC COLITIS LAST ADMISSION) Renal/: Yes: BPH Psych: Yes: Depression Musculoskeletal: Yes: Chronic low back pain (has back stimulator), Other ( CHRONIC NECK PAIN s/p Lumbar and Cervical fusion ) Endocrine: Yes: Diabetes Mellitus (has insulin pump) - Past Surgical History Past Surgical History: Yes: Breast Biopsy, Colonoscopy, Laminectomy, Stent (1 non eluting, 5 eluting) - Alcohol/Substance Use Hx Alcohol Use: No History of Substance Use: reports: None, Prescription (opiates for chronic pain post cervical spine surgery. 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 History of Recent Travel: No Home Medications - Allergies Allergies/Adverse Reactions: Allergies Allergy/AdvReac Type Severity Reaction Status Date / Time shellfish derived Allergy Severe Verified 10/12/18 19:31 Tetracyclines Allergy Severe Verified 10/12/18 19:31 - Home Medications Home Medications: Ambulatory Orders Albuterol Sulfate Inhaler - [Ventolin HFA Inhaler -] 1 - 2 inh PO Q4H PRN Arformoterol Tartrate [Brovana] 15 mcg IH ASDIR 08/18/17 Aspirin [Aspirin EC] 81 mg PO DAILY 08/18/17 Clopidogrel Bisulfate [Plavix] 75 mg PO DAILY 08/18/17 Dexlansoprazole [Dexilant] 30 mg PO DAILY 08/18/17 Ezetimibe [Zetia -] 10 mg PO HS 08/18/17 Furosemide [Lasix] 40 mg PO DAILY 08/18/17 Insulin Pump Controller [Snap Insulin Pump Controller] 1 each ASDIR 08/18/17 Montelukast Sodium [Singulair] 10 mg PO DAILY 08/18/17 Rosuvastatin Calcium [Crestor] 10 mg PO DAILY 08/18/17 Tiotropium [place] [Spiriva] 1 puff IH DAILY 08/18/17 Finasteride [Proscar -] 5 mg PO DAILY tablet 09/20/17 Lipase/Protease/Amylase [Stacy Hackett 36,000 Units Capsule] 1 cap PO TIDCM capsule. 09/20/17 Ramipril [Altace] 10 mg PO DAILY capsule 09/20/17 Tamsulosin HCl [Flomax -] 0.4 mg PO DAILY@0830 cap.er.24h 09/20/17 Amitriptyline HCl [Elavil -] 75 mg PO DAILY 03/30/18 Gabapentin 800 mg PO TID 03/30/18 Albuterol 0.083% Nebulizer Elena [Ventolin 0.083% Nebulizer Soln -] 1 amp NEB Q8H PRN #30 amp 07/26/18 Lidocaine 5% Patch [Lidoderm -] 1 patch TP DAILY #30 patch 07/26/18 Mometasone Furoate [Asmanex 220Mcg -] 2 puff IH BID #2 inhaler 07/26/18 Prednisone See Taper PO ASDIR #64 tablet 07/26/18 Mag Hydrox/Al Hydrox/Simeth [Mylanta Suspension -] 30 ml PO Q6H PRN #1 bottle Polyethylene Glycol 3350 [Miralax (For Daily Use) -] 17 gm PO BID #1 bottle Sennosides/Docusate Sodium [Senna Laxative Tablet] 1 each PO DAILY #20 tablet Family Disease History - Family Disease History Family Disease History: Diabetes: Mother ( 58: diabetic complications), CA: Father ( 49: asbestosis), Respiratory: Brother (bronchial asthma, DVT), Other: Mother, Sister (BCA), Son (2, healthy), Daughter (1, healthy) Review of Systems - Review of Systems Constitutional: reports: No Symptoms Eyes: reports: No Symptoms HENT: reports: No Symptoms Neck: reports: Decreased ROM Cardiovascular: reports: Chest Pain Respiratory: reports: No Symptoms Gastrointestinal: reports: No Symptoms Genitourinary: reports: Other (BPH) Vital Signs: Vital Signs Temperature 98 F 10/13/18 09:31 Pulse Rate 90 10/13/18 09:31 Respiratory Rate 20 10/13/18 09:31 Blood Pressure 152/82 10/13/18 09:31 O2 Sat by Pulse Oximetry (%) 98 10/13/18 02:40 - Other Data Labs, Other Data: CBC, BMP 10/13/18 06:50 10/13/18 06:50 INR, PTT INR 1.02 (0.83-1.09) 10/12/18 20:18 Troponin, BNP 10/12/18 10/13/18 10/13/18 20:18 02:10 06:50 Troponin I < 0.02 < 0.02 < 0.02 B-Natriuretic Peptide 93.0 Troponin, BNP 10/12/18 10/13/18 10/13/18 20:18 02:10 06:50 Troponin I < 0.02 < 0.02 < 0.02 B-Natriuretic Peptide 93.0 Problem List - Problems (1) Atypical chest pain Assessment/Plan: "Electrical shock" felt while sitting up at home, across chests above breasts, lasted a few seconds; 30 seconds later, had a similar episode, this time just below the breasts. This pain was markedly different than the chest pressure he was having prior to the last cardiac stents placed (2015; no stress test or coronary angiogram since). TNI < 0.02 x 3. EKG: NSR; normal study. ECHO: normal LVEF; mild LVH. Telemetry: NSR; no arrhythmias or signficant pauses. From a cardiac perspective, pt may be followed as an outpatient by his rotor blade installer, Dr. Elaine. Code(s): R07.89 - OTHER CHEST PAIN (2) Hx of heart artery stent Code(s): Z95.5 - PRESENCE OF CORONARY ANGIOPLASTY IMPLANT AND GRAFT (3) Intractable low back pain Code(s): M54.5 - LOW BACK PAIN (4) ASHD (arteriosclerotic heart disease) Code(s): I25.10 - ATHSCL HEART DISEASE OF [place] CORONARY ARTERY W/O ANG PCTRS (5) COPD (chronic obstructive pulmonary disease) Code(s): J44.9 - CHRONIC OBSTRUCTIVE PULMONARY DISEASE, UNSPECIFIED (6) Hyperlipidemia Assessment/Plan: increase rosuvastatin to 20 mg daily (LDL 143 mg/dL on 10 mg/day). Keep LDL cholesterol < 70 mg/dL. Code(s): E78.5 - HYPERLIPIDEMIA, UNSPECIFIED (7) HTN (hypertension) Assessment/Plan: On ramipril and furosemide (he doubles the dose of the latter when needed for bilateral ankle swelling or elevated BP). Will start chlorthalidonw 25 mg daily. F/u BUn/Cr, electrolytes, daily weight, Is and Os. Code(s): I10 - ESSENTIAL (PRIMARY) HYPERTENSION (8) BPH (benign prostatic hyperplasia) Code(s): N40.0 - BENIGN PROSTATIC HYPERPLASIA WITHOUT LOWER URINRY TRACT SYMP (9) Asthma Code(s): J45.909 - UNSPECIFIED ASTHMA, UNCOMPLICATED Qualifiers: Asthma severity: unspecified severity
[2018-10-13] MEDS: FINASTERIDE 5 MG TABLET (FP) PO SCH (09:53)
[2018-10-13] MEDS: AMITRIPTYLINE HCL 25 MG TABLET (FP) PO SCH (09:53)
[2018-10-13] MEDS: FUROSEMIDE 40 MG TABLET (FP) PO SCH (09:53)
[2018-10-13] MEDS: RAMIPRIL 5 MG CAPSULE (FP) PO SCH (09:54)
[2018-10-13] MEDS: ASPIRIN COATED 81 MG TABLET.EC PO SCH (09:54)
[2018-10-13] MEDS: CLOPIDOGREL BISULFATE 75 MG TABLET (FP) PO SCH (09:54)
[2018-10-13] MEDS: TAMSULOSIN HCL 0.4 MG CAP PO SCH (09:54)
[2018-10-13] MEDS: oxyCODONE HCL 20 MG SUSTAINED ACTING TABLET PO SCH ×2 (09:54→21:15)
[2018-10-13] MEDS: LIDOCAINE 5% TOPICAL PATCH TP SCH (09:55)
[2018-10-13] MEDS: SENNOSIDES/DOCUSATE COMBO (SENNA PLUS) TABLET (UD) PO SCH (09:56)
[2018-10-13] MEDS ORDERED: oxyCODONE HCL 10 MG SUSTAINED ACTING TABLET PO SCH (10:00)
[2018-10-13] MEDS: PANTOPRAZOLE 20 MG TABLET (FP) PO SCH (10:01)
--- NOTE | 2018-10-13 11:47 | EKG ---
Test Reason : Blood Pressure : / mmHG Vent. Rate : 089 BPM Atrial Rate : 089 BPM P-R Int : 170 ms QRS Dur : 086 ms QT Int : 362 ms P-R-T Axes : 046 059 048 degrees QTc Int : 440 ms NORMAL SINUS RHYTHM NORMAL ECG WHEN COMPARED WITH ECG OF 27-SEP-2018 14:27, NO SIGNIFICANT CHANGE WAS FOUND Confirmed by PAULA HYLTON MD ([id number]) on 10/13/2018 11:47:30 AM Referred By: Confirmed By:PAULA HYLTON MD
[2018-10-13] MEDS: MOMETASONE FUROATE 220 MCG/IH INHALER IH SCH ×2 (12:22→21:14)
[2018-10-13] MEDS: CHLORTHALIDONE 25 MG TABLET PO SCH (12:22)
[2018-10-13] MEDS: TIOTROPIUM BROMIDE 2.5 MCG (SPIRIVA) RESPIMAT INHALER IH SCH (12:23)
[2018-10-13] MEDS ORDERED: PT OWN MED DRAWER 7, Y5N ONE ×2 (13:19→19:23)
[2018-10-13] MEDS: GABAPENTIN 400 MG CAPSULE (FP) PO SCH ×2 (13:46→21:15)
[2018-10-13] MEDS: LIPASE/PROTEASE/AMYLASE 36,000 UNIT CAPSULE PO SCH ×2 (13:46→17:01)
[2018-10-13] MEDS: LIDOCAINE PATCH REMOVAL MC SCH (21:16)
[2018-10-13] MEDS ORDERED: MONTELUKAST NA 10 MG TABLET PO SCH (22:00)
[2018-10-13] MEDS ORDERED: ROSUVASTATIN CA 20 MG TABLET (FP) PO SCH (22:00)
[2018-10-13] MEDS ORDERED: EZETIMIBE 10 MG TABLET (FP) PO SCH (22:00)
[2018-10-13] MEDS ORDERED: ROSUVASTATIN CA 10 MG TABLET (FP) PO SCH (22:00)
[2018-10-14] MEDS: morphine SULFATE 4 MG/ML VIAL IVPUSH PRN ×2 (01:21→06:17)
[2018-10-14] MEDS: MAG HYDROX/AL HYDROX/SIMETH 30 ML UNIT-DOSE CUP PO PRN ×2 (01:27→12:10)
[2018-10-14] MEDS: GABAPENTIN 400 MG CAPSULE (FP) PO SCH ×2 (06:17→15:03)
[2018-10-14 07:29] LABS: BASO % 0.9 % (0-2.0); HEMATOCRIT 34.8 % (35.4-49); HEMOGLOBIN 11.4 GM/dL (11.7-16.9); LYMPH % 41.7 % (8-40); MCH 27.2 pg (25.7-33.7); MCHC 32.9 g/dl (32.0-35.9); MEAN CELL VOLUME 82.8 fl (80-96); MONO % 12.4 % (3.8-10.2); PLATELET COUNT 312 K/MM3 (134-434); RDW 15.1 % (11.9-15.9)
[2018-10-14] MEDS ORDERED: PT OWN MED DRAWER 7, Y5N ONE ×2 (08:14→09:44)
[2018-10-14 08:20] LABS: ALBUMIN 3.5 g/dl (3.4-5.0); ALK PHOS 114 U/L (45-117); ANION GAP 8 MMOL/L (8-16); BILIRUBIN,TOTAL 0.5 mg/dL (0.2-1); BLOOD UREA NITROGEN 25 mg/dL (7-18); CALCIUM 9.4 mg/dL (8.5-10.1); CHLORIDE 100 mmol/L (98-107); CO2 30 mmol/L (21-32); CREATININE 1.5 mg/dL (0.55-1.3); GLUCOSE,RANDOM 192 mg/dL (74-106); MAGNESIUM 2.6 mg/dL (1.8-2.4); POTASSIUM 4.2 mmol/L (3.5-5.1); SGOT/AST 48 U/L (15-37); SGPT/ALT 69 U/L (13-61); SODIUM 138 mmol/L (136-145); TOT PROT 6.9 g/dl (6.4-8.2)
[2018-10-14] MEDS: TAMSULOSIN HCL 0.4 MG CAP PO SCH (08:21)
[2018-10-14] MEDS: LIPASE/PROTEASE/AMYLASE 36,000 UNIT CAPSULE PO SCH ×2 (08:21→12:09)
[2018-10-14] MEDS: ASPIRIN COATED 81 MG TABLET.EC PO SCH (10:00)
[2018-10-14] MEDS: LIDOCAINE 5% TOPICAL PATCH TP SCH (10:00)
[2018-10-14] MEDS ORDERED: oxyCODONE HCL 5 MG TABLET PO PRN ×2 (10:11→13:29)
[2018-10-14] MEDS: RAMIPRIL 5 MG CAPSULE (FP) PO SCH (10:20)
[2018-10-14] MEDS: AMITRIPTYLINE HCL 25 MG TABLET (FP) PO SCH (10:21)
[2018-10-14] MEDS: CLOPIDOGREL BISULFATE 75 MG TABLET (FP) PO SCH (10:21)
[2018-10-14] MEDS: oxyCODONE HCL 20 MG SUSTAINED ACTING TABLET PO SCH (10:22)
[2018-10-14] MEDS: SENNOSIDES/DOCUSATE COMBO (SENNA PLUS) TABLET (UD) PO SCH (10:22)
[2018-10-14] MEDS: PANTOPRAZOLE 20 MG TABLET (FP) PO SCH (10:23)
[2018-10-14] MEDS: FINASTERIDE 5 MG TABLET (FP) PO SCH (10:24)
[2018-10-14] MEDS: FUROSEMIDE 40 MG TABLET (FP) PO SCH (10:24)
[2018-10-14] MEDS: CHLORTHALIDONE 25 MG TABLET PO SCH (10:24)
[2018-10-14] MEDS: MOMETASONE FUROATE 220 MCG/IH INHALER IH SCH (10:36)
[2018-10-14] MEDS: TIOTROPIUM BROMIDE 2.5 MCG (SPIRIVA) RESPIMAT INHALER IH SCH (10:37)
[2018-10-14] MEDS ORDERED: INSULIN SLIDING SCALE (NOVOLOG) 1 VIAL SQ SCH (11:00)
--- NOTE | 2018-10-14 11:23 | PN ---
Progress Note (short form) - Note Progress Note: PULMONARY CONSULTATION DICTATED 10/14/18 IMP CHRONIC PERSISTENT ASTHMA OSAS S/P TRACH CHRONIC BACK PAIN CHEST PAIN ATYPICAL WEAKNESS ASHD S/P MO,S/P CABG,S/P STENTS DM HTN HLD CHRONIC PANCREATITIS PLAN INHALED BRONCHODILATORS O2 NEEDED PAIN MEDS CONTINUE CURRENT MEDS DR VANESSA Problem List - Problems (1) Atypical chest pain Code(s): R07.89 - OTHER CHEST PAIN (2) BPH (benign prostatic hyperplasia) Code(s): N40.0 - BENIGN PROSTATIC HYPERPLASIA WITHOUT LOWER URINRY TRACT SYMP (3) Chest pain Code(s): R07.9 - CHEST PAIN, UNSPECIFIED Qualifiers: Chest pain type: other chest pain Qualified Code(s): R07.89 - Other chest pain; R07.8 - Other chest pain (4) HTN (hypertension) Code(s): I10 - ESSENTIAL (PRIMARY) HYPERTENSION (5) Hx of heart artery stent Code(s): Z95.5 - PRESENCE OF CORONARY ANGIOPLASTY IMPLANT AND GRAFT (6) Hyperlipidemia Code(s): E78.5 - HYPERLIPIDEMIA, UNSPECIFIED (7) Intractable low back pain Code(s): M54.5 - LOW BACK PAIN (8) ASHD (arteriosclerotic heart disease) Code(s): I25.10 - ATHSCL HEART DISEASE OF [place] CORONARY ARTERY W/O ANG PCTRS (9) Coronary artery disease Code(s): I25.10 - ATHSCL HEART DISEASE OF [place] CORONARY ARTERY W/O ANG PCTRS (10) Diabetes mellitus Code(s): E11.9 - TYPE 2 DIABETES MELLITUS WITHOUT COMPLICATIONS Qualifiers: Diabetes mellitus type: type 2 Diabetes mellitus complication detail: with unspecified neuropathy (11) GRACIE (obstructive sleep apnea) Code(s): G47.33 - OBSTRUCTIVE SLEEP APNEA (ADULT) (PEDIATRIC) (12) Tracheostomy in place Code(s): Z98.89 - OTHER SPECIFIED POSTPROCEDURAL STATES * DO NOT USE * (13) Asthma Code(s): J45.909 - UNSPECIFIED ASTHMA, UNCOMPLICATED Qualifiers: Asthma severity: unspecified severity
--- NOTE | 2018-10-14 12:14 | CONS ---
DATE OF CONSULTATION: 10/14/2018 PULMONARY CONSULTATION REFERRING PHYSICIAN: Greyson Palomares NP HISTORY OF PRESENT ILLNESS: Patient is a 62-year-old black male well known to me from previous hospitalization and past medical history of chronic persistent asthma maintained on inhaled bronchodilators, obstructive sleep apnea, status post tracheostomy, unplugs when sleeping; ASHD, status post [place], status post CABG, status post stents x6; chronic pancreatitis; hypertension; hyperlipidemia; pancreatic cyst; history of incarcerated hernia; small bowel obstruction; H. pylori; BPH admitted to [facility] secondary to transient chest pain as well as intractable acute on chronic low back pain. 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 He states that the pain was located below the nipples radiating to the left and right side, sharp and electrical-like, nonpressure. Denied any nausea, vomiting, or diaphoresis associated with this particular complaint of dizziness and headache. The patient was complaining of increasing low back pain, which is chronic, and has seen multiple specialists in the past, pain management, neurosurgeon, neurologist. There is no history of DVT or PE. There is no history of recent travel. PAST MEDICAL HISTORY: Again includes chronic persistent asthma, multiple exacerbations; ASHD, status post [place], status post CABG, status post stents, most recently in 2016; hypertension; hyperlipidemia; chronic pancreatitis; chronic back pain; incarcerated hernia; BPH; H. pylori; obstructive sleep apnea, status post tracheostomy. REVIEW OF SYSTEMS: No orthopnea. No PND. Positive chest discomfort. Positive weakness. No fever. No chills. No hemoptysis. No abdominal pain. Positive mild lower extremity edema. CURRENT MEDICATIONS: Include Lidoderm, insulin pump, Flomax, Altace, Mylanta, Asmanex, Neurontin, Elavil, Spiriva, Lidoderm, albuterol, Brovana, pericolace, Zetia, Creon, Crestor, NovoLog, Singulair, Lasix, aspirin, oxycodone, OxyContin, Plavix, Protonix, Proscar, [place]. PHYSICAL EXAMINATION: General: Patient is an obese male, wide awake, alert, currently in no acute distress. Vital Signs: He is afebrile, blood pressure is 158/89, respiratory rate is 20, and O2 saturation is 98% on room air. HEENT: Exam is normocephalic, atraumatic. Neck: Supple. Heart: Regular, S1, S2. Chest: Few scattered bilateral wheezes. Abdomen: Soft. Bowel sounds positive. Extremities: Bilateral lower extremities. LABORATORIES: WBC is 8.80, hemoglobin 11.4, hematocrit 34.8, with a platelet count 360,000, with 43 polys, 41 lymphs, and 12 monos. Chemistries: BUN 25, creatinine 1.5, triglycerides 281, cholesterol 238, LDL is 144. CHEST X-RAY: Prominent mediastinum. Low cervical spine fusion. Otherwise clear. No change since previous exam since September 27, 2018. IMPRESSION: 1. Chronic persistent asthma, stable. 2. Obstructive sleep apnea, status post tracheostomy. 3. Chronic back pain. 4. Atypical chest pain. 5. Weakness. 6. Arteriosclerotic heart disease, status post coronary artery bypass graft, status post myocardial infarction, status post stents. 7. Diabetes. 8. Hypertension. 9. Hyperlipidemia. 10. Chronic pancreatitis. PLAN: Inhaled bronchodilators. Supplemental O2. Analgesics. Continue current cardiac medications. GÉNESIS VANESSA M.D. [id number]
[2018-10-14] MEDS ORDERED: oxyCODONE HCL 10 MG SUSTAINED ACTING TABLET PO SCH (13:33)
[2018-10-14 14:58] VITALS: TEMP 98.2
--- NOTE | 2018-10-14 15:09 | DS ---
Physical Exam: SUBJECTIVE: Patient seen and examined at the bedside. Patient tells me that he walked to the bathroom this morning and felt "euphoric " and does not think he will be able to go home today. He denies chest pain or shortness of breath. Orthostatics were negative. His lungs are diminished at baseline and his oxygen status is stable. He was seen by PT twice today, but he refused to participate. Both SW and I went in and sat patient in chair and he verbalized lower ext weakness. but denies any headaches, nausea, chest pain, shortness of breath or dizziness. Spoke to patient about considering rehab but he refused. Spoke to him later and asked him to re consider rehab but still refusing. Long talk with patient multiple times today about my concern over him going home and falling but he kept telling me that he will be alright and will manage. he was seen by our DIRECTOR OF FIELD SERVICE and discussed again with him rehab. He continues to refuse our recommendations for rehab. will discharge home with VNS services for home rehab. OBJECTIVE: GENERAL: The patient is awake, alert, and fully oriented, in no acute distress. HEAD: Normal with no signs of trauma. EYES: PERRL, extraocular movements intact, sclera anicteric, conjunctiva clear. No ptosis. ENT: Ears normal, nares patent, oropharynx clear without exudates, moist mucous membranes. NECK: trach tube in place LUNGS: diminished bilaterally HEART: Regular rate and rhythm,90s ABDOMEN: Soft, nontender, nondistended, normoactive bowel sounds EXTREMITIES: +2 lower ext pitting edema NEUROLOGICAL: Normal speech, unsteady gait PSYCH: Normal mood, normal affect. SKIN: Warm, dry, normal turgor, no rashes or lesions noted Vital Signs Period Temp Pulse Resp BP Sys/Gates Pulse Ox Last 24 Hr 98 F-98.8 F 83-121 17-20 92-162/61-95 98 PHYSICAL EXAM LABS Laboratory Results - last 24 hr 10/13/18 10/13/18 10/14/18 16:59 22:33 06:55 WBC 8.0 RBC 4.20 Hgb 11.4 L Hct 34.8 L MCV 82.8 MCH 27.2 MCHC 32.9 RDW 15.1 Plt Count 312 MPV 7.0 L Absolute Neuts (auto) 3.4 Neutrophils % 43.0 Lymphocytes % 41.7 H Monocytes % 12.4 H Eosinophils % 2.0 Basophils % 0.9 Nucleated RBC % 0 Sodium Potassium Chloride Carbon Dioxide Anion Gap BUN Creatinine Creat Clearance w eGFR POC Glucometer 157 208 Random Glucose Calcium Magnesium Total Bilirubin AST ALT Alkaline Phosphatase Total Protein Albumin 10/14/18 10/14/18 10/14/18 06:55 06:59 12:14 WBC RBC Hgb Hct MCV MCH MCHC RDW Plt Count MPV Absolute Neuts (auto) Neutrophils % Lymphocytes % Monocytes % Eosinophils % Basophils % Nucleated RBC % Sodium 138 Potassium 4.2 Chloride 100 Carbon Dioxide 30 Anion Gap 8 BUN 25 H Creatinine 1.5 H Creat Clearance w eGFR 47.12 POC Glucometer 197 288 Random Glucose 192 H Calcium 9.4 Magnesium 2.6 H Total Bilirubin 0.5 AST 48 H ALT 69 H Alkaline Phosphatase 114 Total Protein 6.9 Albumin 3.5 HOSPITAL COURSE: Date of Admission:10/12/18 Date of Discharge: 10/14/18 Patient is a 62 year old male with a significant past medical history of hypertension, hyperlipidemia, CAD s/p MA s/p stents x 6 s/p CABG, chronic pancreatitis, chronic back pain (back stimulator), SBO, incarcerated hernia s/p repair x2 (September 2017), H.Pylori, BPH, COPD, tracheostomy in place (unplugs when sleeping for sleep apnea), diabetes mellitus with insulin pump. Placed in Telemetry Observation for Chest Pain, Intractable Back Pain. Card: Hypertension: on altace, norvasc. Hyperlipidemia: On crestor, but has been non compliant. CAD s/p MA with stents x 6 s/p CABG (1 non eluding stent, 5 eluting coronary artery stents). On crestor, ramipril, Plavix, aspirin. Chest pain, resolved troponins negative x 3, seen and evaluated by cardiology and cleared for discharge Intractable back pain On oxycodone and oxycontin. Will decrease dose of this medication as it may be causing patient to feel weaker today. He is on a pain regimen at home and on Diludid. He follows up with neurology as an outpatient. Pulmonary: Tracheostomy in place, unplugs for sleep in no acute distress on duonebs prn follows with Dr Guzman Sleep Apnea with chronic tracheostomy, uncaps trach collar during sleep for sleep apnea. Muscular/Skeletal: Chronic Back Pain: has back stimulator. Follows neurologist outpatient (Dr. Singh). on Lidocaine patches at home. GI: chronic pancreatitis, history, lipase wnl Incarcerated hernia with repair, history, follows GI outpatient. Endocrine: Diabetes Mellitus with insulin pump. Monitor BGMs. Novolog SS added today as his insulin pump was empty. Disposition: Ideally, would of liked patient to go to rehab but he adamantly refused despite meeting with SW, press writer and DIRECTOR OF FIELD SERVICE of hospital on importance. He is a fall risk. Minutes to complete discharge: 60 Discharge Summary Reason For Visit: INTRACTABLE LOW B ACK PAIN,CHEST PAIN Current Active Problems Atypical chest pain (Acute) BPH (benign prostatic hyperplasia) (Acute) Chest pain (Acute) HTN (hypertension) (Acute) Hx of heart artery stent (Acute) Hyperlipidemia (Acute) Intractable low back pain (Acute) Condition: Stable - Instructions Diet, Activity, Other Instructions: Mr. Cohen You were admitted for chest pain. Your cardiac workup is negative and we will be sending you home today. Please note that your cholesterol levels were elevated and we have restarted your Crestor at a higher dose. Please follow up with your PCP for repeat testing. It is important that you follow up with Dr. Elaine for further cardiac workup. Thank you for allowing us to care for you Ledy Kaitlyn Francis [employer] [facility] @ [facility] [phone] Referrals: Murali Gustafson MD [Staff Physician] - Bola Elaine MD [Non Staff, Medical] - Disposition: HOME - Home Medications Comprehensive Discharge Medication List: Ambulatory Orders Albuterol Sulfate Inhaler - [Ventolin HFA Inhaler -] 1 - 2 inh PO Q4H PRN Arformoterol Tartrate [Brovana] 15 mcg ASDIR 08/18/17 Aspirin [Aspirin EC] 81 mg PO DAILY 08/18/17 Clopidogrel Bisulfate [Plavix] 75 mg PO DAILY 08/18/17 Dexlansoprazole [Dexilant] 30 mg PO DAILY 08/18/17 Ezetimibe [Zetia -] 10 mg PO HS 08/18/17 Furosemide [Lasix] 40 mg PO DAILY 08/18/17 Insulin Pump Controller [Snap Insulin Pump Controller] 1 each ASDIR 08/18/17 Montelukast Sodium [Singulair] 10 mg PO DAILY 08/18/17 Rosuvastatin Calcium [Crestor] 10 mg PO DAILY 08/18/17 Tiotropium [place] [Spiriva] 1 puff IH DAILY 08/18/17 Finasteride [Proscar -] 5 mg PO DAILY tablet 09/20/17 Lipase/Protease/Amylase [Stacy Hackett 36,000 Units Capsule] 1 cap PO TIDCM capsule. 09/20/17 Ramipril [Altace] 10 mg PO DAILY capsule 09/20/17 Tamsulosin HCl [Flomax -] 0.4 mg PO DAILY@0830 cap.er.24h 09/20/17 Amitriptyline HCl [Elavil -] 75 mg PO DAILY 03/30/18 Gabapentin 800 mg PO TID 03/30/18 Albuterol 0.083% Nebulizer Elena [Ventolin 0.083% Nebulizer Soln -] 1 amp NEB Q8H PRN #30 amp 07/26/18 Lidocaine 5% Patch [Lidoderm -] 1 patch TP DAILY #30 patch 07/26/18 Mometasone Furoate [Asmanex 220Mcg -] 2 puff IH BID #2 inhaler 07/26/18 Prednisone See Taper PO ASDIR #64 tablet 07/26/18 Mag Hydrox/Al Hydrox/Simeth [MAALOX *SUSPENSION* -] 30 ml PO Q6H PRN #1 bottle 09/27/18 Polyethylene Glycol 3350 [Miralax 119 gm Btl -] 17 gm PO BID #1 bottle 09/27/18 Sennosides/Docusate Sodium [Senna Laxative Tablet] 1 each PO DAILY #20 tablet Chlorthalidone [Hygroton -] 25 mg PO DAILY #60 tablet 10/14/18 Rosuvastatin [Crestor -] 20 mg PO HS #30 tablet 10/14/18 This patient is new to me today: No Emergency Visit: Yes ED Registration Date: 10/12/18 Care time: The patient presented to the Emergency Department on the above date and was hospitalized for further evaluation of their emergent condition. Critical Care patient: No - Discharge Referral Referred to [facility] No
[2018-10-14 15:22] VITALS: BP 140/90; PULSE 111
== END 2018-10-14 16:33 | disposition home or self-care (01) ==
LOC: JER 19:08 → JERBED 22:31 → J4W 10-13 02:53
PROVIDERS: ADMIT Family Medicine; ATTEND Nurse Practitioner Family
PROC: 3E033NZ Introduction of Analgesics, Hypnotics, Sedatives into Peripheral Vein, Percutaneous Approach (ICD-10-PCS; principal; 2018-10-12)
PROC: 3E013VG Introduction of Insulin into Subcutaneous Tissue, Percutaneous Approach (ICD-10-PCS; 2018-10-12)
PROC: 3E0F7GC Introduction of Other Therapeutic Substance into Respiratory Tract, Via Natural or Artificial Opening (ICD-10-PCS; 2018-10-12)
DX: R07.89 Other chest pain (principal); M54.5 Low back pain; G89.29 Other chronic pain; M10.9 Gout, unspecified; I11.0 Hypertensive heart disease with heart failure; E78.5 Hyperlipidemia, unspecified; I25.10 Atherosclerotic heart disease of native coronary artery without angina pectoris; J44.9 Chronic obstructive pulmonary disease, unspecified; E11.40 Type 2 diabetes mellitus with diabetic neuropathy, unspecified; G47.33 Obstructive sleep apnea (adult) (pediatric); E66.9 Obesity, unspecified; Z68.37 Body mass index [BMI] 37.0-37.9, adult; Z93.0 Tracheostomy status; I25.2 Old myocardial infarction; K86.1 Other chronic pancreatitis; N40.0 Benign prostatic hyperplasia without lower urinary tract symptoms; F41.9 Anxiety disorder, unspecified; Z95.5 Presence of coronary angioplasty implant and graft; Z95.1 Presence of aortocoronary bypass graft; Z79.82 Long term (current) use of aspirin; Z91.14 Patient's other noncompliance with medication regimen; R74.8 Abnormal levels of other serum enzymes; Z91.013 Allergy to seafood; Z88.1 Allergy status to other antibiotic agents; Z79.84 Long term (current) use of oral hypoglycemic drugs; J45.40 Moderate persistent asthma, uncomplicated; Z87.19 Personal history of other diseases of the digestive system; R53.1 Weakness
CPT/HCPCS: 36415; 71045-TC-FY; 72131-TC; 76705-TC; 80048; 80053; 80061; 82550; 82553; 82962; 83690; 83721; 83735; 83880; 84100; 84484; 85025; 85610; 93005; 93010; 94640; 97116-GP; 97162-GP; 99283-25; G0378

== ENCOUNTER 2018-11-03 09:00 | Emergency (ER) | payer OTHER ==
[2018-11-03 09:05] VITALS: BMI 35.6
[2018-11-03 10:18] LABS: BASO % 1.5 % (0-2.0); EOS % 2.2 % (0-4.5); HEMATOCRIT 35.8 % (35.4-49); HEMOGLOBIN 11.7 GM/dL (11.7-16.9); LYMPH % 41.5 % (8-40); MCH 26.7 pg (25.7-33.7); MCHC 32.7 g/dl (32.0-35.9); MEAN CELL VOLUME 81.9 fl (80-96); MEAN PLT VOLUME 7.1 fl (7.5-11.1); MONO % 10.9 % (3.8-10.2); NEUT % 43.9 % (42.8-82.8); PLATELET COUNT 362 K/MM3 (134-434); RBC 4.37 M/mm3 (4.00-5.60); RDW 14.8 % (11.9-15.9); WHITE BLOOD COUNT 7.2 K/mm3 (4.0-10.0)
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
[2018-11-03] MEDS ORDERED: morphine CARPU-JECT 4 MG/1 ML DISP.SYRIN IVPUSH ONE (10:29)
[2018-11-03] MEDS ORDERED: morphine SULFATE 4 MG/ML VIAL ONE (10:38)
[2018-11-03 10:49] LABS: ALBUMIN 3.4 g/dl (3.4-5.0); ALK PHOS 127 U/L (45-117); ANION GAP 7 MMOL/L (8-16); BILIRUBIN,TOTAL 0.4 mg/dL (0.2-1); BLOOD UREA NITROGEN 22 mg/dL (7-18); CALCIUM 9.2 mg/dL (8.5-10.1); CHLORIDE 100 mmol/L (98-107); CO2 28 mmol/L (21-32); CREATININE 1.6 mg/dL (0.55-1.3); GLUCOSE,RANDOM 203 mg/dL (74-106); LIPASE 162 U/L (73-393); POTASSIUM 4.1 mmol/L (3.5-5.1); SGOT/AST 44 U/L (15-37); SGPT/ALT 57 U/L (13-61); SODIUM 136 mmol/L (136-145); TOT PROT 7.1 g/dl (6.4-8.2)
[2018-11-03 10:51] LABS: INR 1.04 (0.83-1.09); PROTHROMBIN TIME (PATIENT) 12.3 SEC (9.7-13.0)
[2018-11-03] MEDS ORDERED: ACETAMINOPHEN 1000 MG/100 ML VIAL (NON FORMULARY) IVPB ONE (11:23)
[2018-11-03] MEDS ORDERED: ACETAMINOPHEN INJECTION 100 ML IVPB ONE (11:27)
[2018-11-03 11:56] VITALS: BP 150/80; PULSE 82; TEMP 98.3
--- NOTE | 2018-11-03 16:19 | EKG ---
Test Reason : Blood Pressure : / mmHG Vent. Rate : 090 BPM Atrial Rate : 090 BPM P-R Int : 184 ms QRS Dur : 084 ms QT Int : 372 ms P-R-T Axes : 022 007 028 degrees QTc Int : 455 ms NORMAL SINUS RHYTHM NORMAL ECG WHEN COMPARED WITH ECG OF 12-OCT-2018 19:05, NO SIGNIFICANT CHANGE WAS FOUND Confirmed by PAULA HYLTON MD ([id number]) on 11/03/2018 4:18:46 PM Referred By: Confirmed By:PAULA HYLTON MD
== END 2018-11-03 12:03 | disposition home or self-care (01) ==
LOC: JER 09:00
PROC: 3E033NZ Introduction of Analgesics, Hypnotics, Sedatives into Peripheral Vein, Percutaneous Approach (ICD-10-PCS; principal; 2018-11-03)
PROC: 3E033NZ Introduction of Analgesics, Hypnotics, Sedatives into Peripheral Vein, Percutaneous Approach (ICD-10-PCS; 2018-11-03)
DX: R10.84 Generalized abdominal pain (principal); G89.29 Other chronic pain; I25.810 Atherosclerosis of coronary artery bypass graft(s) without angina pectoris; I11.0 Hypertensive heart disease with heart failure; Z95.1 Presence of aortocoronary bypass graft; Z95.5 Presence of coronary angioplasty implant and graft; I25.2 Old myocardial infarction; I50.9 Heart failure, unspecified; E11.69 Type 2 diabetes mellitus with other specified complication; Z79.4 Long term (current) use of insulin; Z96.41 Presence of insulin pump (external) (internal); J44.9 Chronic obstructive pulmonary disease, unspecified; J45.909 Unspecified asthma, uncomplicated; G47.33 Obstructive sleep apnea (adult) (pediatric); Z93.0 Tracheostomy status; M54.89 Other dorsalgia; R26.89 Other abnormalities of gait and mobility; Z99.89 Dependence on other enabling machines and devices
CPT/HCPCS: 36415; 80053; 83690; 84484; 85025; 85610; 86850; 86900; 86901; 93005; 93010; 99284-25; J0131

== ENCOUNTER 2019-03-01 18:11 | Inpatient (IN) | payer OTHER ==
--- NOTE | 2019-03-01 18:29 | PDOC ---
Rapid Medical Evaluation Chief Complaint: Chest Pain Time Seen by Provider: 03/01/19 18:24 Medical Evaluation: Allergies Allergy/AdvReac Type Severity Reaction Status Date / Time shellfish derived Allergy Severe Verified 11/03/18 09:01 Tetracyclines Allergy Severe Verified 11/03/18 09:01 03/01/19 18:26 I have performed a brief in-person evaluation of this patient. The patient presents with a chief complaint of: h/o Asthma, HTN, constipatiion and CABG present with complains of a week h/o intermittent chest pain and ESPINOSA for a week now. Pt report doing neb tx and 60mg PO prednisone prior to discharge which is helping to SOB Pertinent physical exam findings: lungs CTAB in NAD I have ordered the following: CBC, cardiac profile, CXR, ekg The patient will proceed to the ED for further evaluation. Discharge Disposition - Diagnosis SOB (shortness of breath) - Discharge Dispostion Condition at time of disposition: Stable - Referrals - Patient Instructions - Post Discharge Activity
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
[2019-03-01] MEDS ORDERED: ALBUTEROL SO4 2.5/IPRATROPIUM 0.5 INH SOL 3 ML VIAL.NEB. NEB ONE ×2 (18:44→18:52)
[2019-03-01 18:57] LABS: BASO % 1.3 % (0-2.0); EOS % 0.1 % (0-4.5); HEMATOCRIT 37.1 % (35.4-49); LYMPH % 30.5 % (8-40); MCH 26.5 pg (25.7-33.7); MCHC 32.2 g/dl (32.0-35.9); MEAN CELL VOLUME 82.2 fl (80-96); MEAN PLT VOLUME 7.9 fl (7.5-11.1); MONO % 7.1 % (3.8-10.2); PLATELET COUNT 358 K/MM3 (134-434); RBC 4.51 M/mm3 (4.00-5.60); RDW 16.4 % (11.9-15.9)
[2019-03-01] MEDS ORDERED: HYDROmorphone HCL CARPU-JECT 2 MG/1 ML DISP.SYRIN IVPUSH ONE ×2 (19:21→20:06)
[2019-03-01] MEDS ORDERED: HYDROmorphone HCl 2 MG/ML VIAL ONE ×2 (19:28→20:19)
[2019-03-01] MEDS ORDERED: methylPREDNISolone NA SUCC 125 MG/2 ML VIAL IVPUSH ONE (19:37)
[2019-03-01] MEDS ORDERED: FUROSEMIDE 40 MG/4 ML INJECTABLE VIAL IVPUSH ONE (19:37)
[2019-03-01] MEDS ORDERED: NITROGLYCERIN 2% OINTMENT - 1GM PACKET TD ONE ×3 (19:53→19:55)
[2019-03-01] MEDS ORDERED: methylPREDNISolone NA SUCC 125 MG/2 ML VIAL ONE (19:53)
[2019-03-01] MEDS ORDERED: FUROSEMIDE 40 MG/4 ML INJECTABLE VIAL ONE (19:53)
--- NOTE | 2019-03-01 19:53 | PDOC ---
Attending Attestation - Resident Resident Name: Michelle Elizondo - ED Attending Attestation I have performed the following: I have examined & evaluated the patient, The case was reviewed & discussed with the resident, I agree w/resident's findings & plan - HPI HPI: 03/01/19 19:42 see resident hpi - Physicial Exam PE: 03/01/19 19:42 agree with resident exam - Critical Care Time Total Critical Care Time: 45 Critical Care Statement: The care of this patient involved high complexity decision making to prevent further life threatening deterioration of the patient 's condition and/or to evaluate & treat vital organ system(s) failure or risk of failure. - Medical Decision Making 03/01/19 19:42 63 yo male with sob and leg swelling CXR shows no significant infiltrate or change from previous pt 's exam c/w chf/copd mixxed presentaion plan for steroids, duonebs, lasix, nitropaste LE duplex due to LE edema plan for admit to medical service
[2019-03-01 19:55] LABS: ALBUMIN 3.4 g/dl (3.4-5.0); ALK PHOS 91 U/L (45-117); ANION GAP 8 MMOL/L (8-16); BILIRUBIN,TOTAL 0.4 mg/dL (0.2-1); BLOOD UREA NITROGEN 24.3 mg/dL (7-18); CALCIUM 9.1 mg/dL (8.5-10.1); CHLORIDE 106 mmol/L (98-107); CO2 28 mmol/L (21-32); CREATININE 1.3 mg/dL (0.55-1.3); GLUCOSE,RANDOM 151 mg/dL (74-106); N-TERMINAL BNP 192.4 pg/ml (5-125); POTASSIUM 4.6 mmol/L (3.5-5.1); SGOT/AST 55 U/L (15-37); SGPT/ALT 67 U/L (13-61); SODIUM 142 mmol/L (136-145)
--- NOTE | 2019-03-01 21:43 | HP ---
Admitting History and Physical - Primary Care Physician PCP: Carla Bravo - Admission History of Present Illness: 63 year old man with a significant past medical history of CAD s/p [place], stents x6 (most recently 12/2015), CABG, HTN, HLD, Chronic Pancreatitis, Chronic Back pain, SBO, Incarcerated Hernia s/p repair x2 (September 2017), H.Pylori, BPH, COPD, Bronchial Asthma, Tracheostomy in place (unplugs when sleeping for GRACIE) and anxiety who presents with worsening shortness of breath for 2-3 weeks, 1 week of productive cough of yellow phlegm and 2-3 days of chest pain and bilateral leg swelling. He reports his chest pain is L sided pressure like 5-6/10 intermittent radiating to the side and back. He admits to lightheadedness but denies nausea or diaphoresis. He staties that he has taken prednisone 60mg everday for 3 days and doubled his lasix to 80mg a day for 4 days. He reports his symptoms feel like a CHF exacerbation. He took albuterol and breathing treatment prior to arrival. He has no other complaints at bedside. 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 Planned EMG/ NCVs studies and evaluation of motor weakness in process by treating neurologist Dr. Singh) Cardiovascular: Yes: CAD (Last stents placed x 2 last year per patient), CHF (s/ p WA several years ago; s/p stenting. mild CHF in the past.), HTN, Hyperlipdemia , [place], Pulmonary Hypertension Pulmonary: Yes: Asthma, Sleep Apnea Gastrointestinal: Yes: Constipation, Pancreatitis (? history of chronic pancreatitis with episodes of acute pancreatitis), Other (FECAL INCONTINENCE SECONDARY TO OVERFLOW followed by Dr. Abdoulaye Wu, IPMN, PANCREATITIS . HAD EPISODE OF ISCHEMIC COLITIS LAST ADMISSION) Renal/: Yes: BPH Psych: Yes: Depression Musculoskeletal: Yes: Chronic low back pain (has back stimulator), Other ( CHRONIC NECK PAIN s/p Lumbar and Cervical fusion ) Endocrine: Yes: Diabetes Mellitus (has insulin pump) - Past Surgical History Past Surgical History: Yes: Breast Biopsy, Colonoscopy, Laminectomy, Stent (1 non eluting, 5 eluting) - Smoking History Smoking history: Never smoked Have you smoked in the past 12 months: No Aproximately how many cigarettes per day: 0 - Alcohol/Substance Use Hx Alcohol Use: No History of Substance Use: reports: None, Prescription (opiates for chronic pain post cervical spine surgery. 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 History of Recent Travel: No Home Medications - Allergies Allergies/Adverse Reactions: Allergies Allergy/AdvReac Type Severity Reaction Status Date / Time shellfish derived Allergy Severe Verified 03/01/19 18:27 Tetracyclines Allergy Severe Verified 03/01/19 18:27 - Home Medications Home Medications: Ambulatory Orders Albuterol Sulfate Inhaler - [Ventolin HFA Inhaler -] 1 - 2 inh PO Q4H PRN Arformoterol Tartrate [Brovana] 15 mcg IH ASDIR 08/18/17 Aspirin [Aspirin EC] 81 mg PO DAILY 08/18/17 Clopidogrel Bisulfate [Plavix] 75 mg PO DAILY 08/18/17 Dexlansoprazole [Dexilant] 30 mg PO DAILY 08/18/17 Ezetimibe [Zetia -] 10 mg PO HS 08/18/17 Furosemide [Lasix] 40 mg PO DAILY 08/18/17 Insulin Pump Controller [Snap Insulin Pump Controller] 1 each ASDIR 08/18/17 Montelukast Sodium [Singulair] 10 mg PO DAILY 08/18/17 Tiotropium [place] [Spiriva] 1 puff IH DAILY 08/18/17 Finasteride [Proscar -] 5 mg PO DAILY tablet 09/20/17 Lipase/Protease/Amylase [Stacy Hackett 36,000 Units Capsule] 1 cap PO TIDCM capsule. 09/20/17 Ramipril [Altace] 10 mg PO DAILY capsule 09/20/17 Tamsulosin HCl [Flomax -] 0.4 mg PO DAILY@0830 cap.er.24h 09/20/17 Amitriptyline HCl [Elavil -] 75 mg PO DAILY 03/30/18 Gabapentin 800 mg PO TID 03/30/18 Albuterol 0.083% Nebulizer Elena [Ventolin 0.083% Nebulizer Soln -] 1 amp NEB Q8H PRN #30 amp 07/26/18 Mometasone Furoate [Asmanex 220Mcg -] 2 puff IH BID #2 inhaler 07/26/18 Mag Hydrox/Al Hydrox/Simeth [MAALOX *SUSPENSION* -] 30 ml PO Q6H PRN #1 bottle 09/27/18 Polyethylene Glycol 3350 [Miralax 119 gm Btl -] 17 gm PO BID #1 bottle 09/27/18 Sennosides/Docusate Sodium [Senna Laxative Tablet] 1 each PO DAILY #20 tablet Chlorthalidone [Hygroton -] 25 mg PO DAILY #60 tablet 10/14/18 Rosuvastatin [Crestor -] 20 mg PO HS #30 tablet 10/14/18 Amlodipine Besylate [Norvasc -] 10 mg PO DAILY 03/01/19 Arformoterol Tartrate [Brovana] 15 mcg IH DAILY 03/01/19 Budesonide/Formeterol Fumarate [SYMBICORT 160/4.5mcg -] 1 inh PO BID 03/01/19 Diazepam 5 mg PO PRN 03/01/19 HYDROmorphone [Dilaudid -] 4 mg PO Q4H 03/01/19 Lipase/Protease/Amylase [Creon Dr 36,000 Units Capsule] 1 each PO TID 03/01/19 Mesalamine [Pentasa] 500 mg PO TID 03/01/19 Ondansetron [Zofran -] 4 mg PO TID 03/01/19 Oxycodone HCl/Acetaminophen [Oxycodone-Acetaminophen 10-325] 1 each PO BID 03/01 Prednisone 60 mg PO DAILY 03/01/19 Tapentadol ER [Nucynta *ER*] 150 mg PO BID 03/01/19 Family Disease History - Family Disease History Family Disease History: Diabetes: Mother ( 58: diabetic complications), CA: Father ( 49: asbestosis), Respiratory: Brother (bronchial asthma, DVT), Other: Mother, Sister (BCA), Son (2, healthy), Daughter (1, healthy) Physical Examination Vital Signs: Vital Signs Temperature 98.2 F 03/01/19 18:21 Pulse Rate 102 H 03/01/19 20:15 Respiratory Rate 22 H 03/01/19 20:15 Blood Pressure 162/97 03/01/19 20:15 O2 Sat by Pulse Oximetry (%) 98 03/01/19 20:15 Labs: CBC, BMP 03/01/19 18:40 03/01/19 18:40 Problem List - Problems (1) SOB (shortness of breath) Code(s): R06.02 - SHORTNESS OF BREATH (2) Acute diastolic (congestive) heart failure Code(s): I50.31 - ACUTE DIASTOLIC (CONGESTIVE) HEART FAILURE (3) BPH (benign prostatic hyperplasia) Code(s): N40.0 - BENIGN PROSTATIC HYPERPLASIA WITHOUT LOWER URINRY TRACT SYMP (4) HTN (hypertension) Code(s): I10 - ESSENTIAL (PRIMARY) HYPERTENSION (5) Hyperlipidemia Code(s): E78.5 - HYPERLIPIDEMIA, UNSPECIFIED (6) COPD (chronic obstructive pulmonary disease) Code(s): J44.9 - CHRONIC OBSTRUCTIVE PULMONARY DISEASE, UNSPECIFIED (7) Coronary artery disease Code(s): I25.10 - ATHSCL HEART DISEASE OF [place] CORONARY ARTERY W/O ANG PCTRS (8) Diabetes mellitus Code(s): E11.9 - TYPE 2 DIABETES MELLITUS WITHOUT COMPLICATIONS (9) GRACIE (obstructive sleep apnea) Code(s): G47.33 - OBSTRUCTIVE SLEEP APNEA (ADULT) (PEDIATRIC) Assessment/Plan Laboratory Tests 03/01/19 03/01/19 18:40 18:40 WBC 14.0 H RBC 4.51 Hgb 12.0 Hct 37.1 MCV 82.2 MCH 26.5 MCHC 32.2 RDW 16.4 H Plt Count 358 MPV 7.9 D Absolute Neuts (auto) 8.5 H Neutrophils % 61.0 D Lymphocytes % 30.5 D Monocytes % 7.1 Eosinophils % 0.1 D Basophils % 1.3 Nucleated RBC % 0 Sodium 142 Potassium 4.6 Chloride 106 Carbon Dioxide 28 Anion Gap 8 BUN 24.3 H Creatinine 1.3 Est GFR (CKD-EPI)AfAm 66.36 Est GFR (CKD-EPI)NonAf 57.26 Random Glucose 151 H Calcium 9.1 Total Bilirubin 0.4 AST 55 H ALT 67 H Alkaline Phosphatase 91 Creatine Kinase 734 H Creatine Kinase Index 1.9 CK-MB (CK-2) 14.2 H Troponin I < 0.02 B-Natriuretic Peptide 192.4 H Total Protein 7.0 Albumin 3.4
--- NOTE | 2019-03-02 00:05 | HP ---
Admitting History and Physical - Primary Care Physician PCP: Murali Gustafson - Admission Chief Complaint: SOB, Chest Pain, B/L LE Edema, Generalized Body Pain History of Present Illness: This is a 63 y/o man with a significant medical history of COPD, Bronchial Asthma, Tracheostomy in place (unplugs when sleeping for GRACIE), CAD s/p CABG, NE s/p Stents x6 (most recent 2015), HTN, HLD, DM (Insulin Pump), Chronic Pancreatitis, SBO, Incarcerated Hernia repair x2 (September 2017), Chronic Back Pain , Anxiety. Who presents to the ED with worsening shortness of breath for 2-3 weeks, productive cough- yellow phlegm x 1 week, and chest pain and bilateral leg swelling x 2-3 days. Patient describes the chest pain as L sided pressure intermittent, radiating to the side and back, with lightheadedness. Painscale of 5-6/10. Patient reports that he has taken prednisone 60mg everyday for 3 days and doubled his Lasix to 80mg a day for 4 days without relief. Patient reports his symptoms feel like a "CHF Exacerbation". Patient reports having chronic lumbar and neuropathic pain in which he takes pain medication. 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 Planned EMG/ NCVs studies and evaluation of motor weakness in process by treating neurologist Dr. Singh) Cardiovascular: Yes: CAD (Last stents placed x 2 last year per patient), CHF (s/ p NE several years ago; s/p stenting. mild CHF in the past.), HTN, Hyperlipdemia , NE, Pulmonary Hypertension Pulmonary: Yes: Asthma, COPD, Sleep Apnea Gastrointestinal: Yes: Constipation, Pancreatitis (? history of chronic pancreatitis with episodes of acute pancreatitis), Other (FECAL INCONTINENCE SECONDARY TO OVERFLOW followed by Dr. Abdoulaye Wu, IPMN, PANCREATITIS . HAD EPISODE OF ISCHEMIC COLITIS LAST ADMISSION) Renal/: Yes: BPH Psych: Yes: Depression Musculoskeletal: Yes: Chronic low back pain (has back stimulator), Other ( CHRONIC NECK PAIN s/p Lumbar and Cervical fusion ) Endocrine: Yes: Diabetes Mellitus (has insulin pump) - Past Surgical History Past Surgical History: Yes: Breast Biopsy, Colonoscopy, Laminectomy, Stent (1 non eluting, 5 eluting) Additional Past Surgical History: Tracheostomy - Smoking History Smoking history: Never smoked Have you smoked in the past 12 months: No Aproximately how many cigarettes per day: 0 - Alcohol/Substance Use Hx Alcohol Use: No History of Substance Use: reports: None, Prescription (opiates for chronic pain post cervical spine surgery. 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 History of Recent Travel: No Home Medications - Allergies Allergies/Adverse Reactions: Allergies Allergy/AdvReac Type Severity Reaction Status Date / Time shellfish derived Allergy Severe Verified 03/01/19 18:27 Tetracyclines Allergy Severe Verified 03/01/19 18:27 - Home Medications Home Medications: Ambulatory Orders Albuterol Sulfate Inhaler - [Ventolin HFA Inhaler -] 1 - 2 inh PO Q4H PRN Arformoterol Tartrate [Brovana] 15 mcg IH ASDIR 08/18/17 Aspirin [Aspirin EC] 81 mg PO DAILY 08/18/17 Clopidogrel Bisulfate [Plavix] 75 mg PO DAILY 08/18/17 Dexlansoprazole [Dexilant] 30 mg PO DAILY 08/18/17 Ezetimibe [Zetia -] 10 mg PO HS 08/18/17 Furosemide [Lasix] 40 mg PO DAILY 08/18/17 Insulin Pump Controller [Snap Insulin Pump Controller] 1 each ASDIR 08/18/17 Montelukast Sodium [Singulair] 10 mg PO DAILY 08/18/17 Tiotropium [place] [Spiriva] 1 puff IH DAILY 08/18/17 Finasteride [Proscar -] 5 mg PO DAILY tablet 09/20/17 Lipase/Protease/Amylase [Stacy Hackett 36,000 Units Capsule] 1 cap PO TIDCM capsule. 09/20/17 Ramipril [Altace] 10 mg PO DAILY capsule 09/20/17 Tamsulosin HCl [Flomax -] 0.4 mg PO DAILY@0830 cap.er.24h 09/20/17 Amitriptyline HCl [Elavil -] 75 mg PO DAILY 03/30/18 Gabapentin 800 mg PO TID 03/30/18 Albuterol 0.083% Nebulizer Elena [Ventolin 0.083% Nebulizer Soln -] 1 amp NEB Q8H PRN #30 amp 07/26/18 Mometasone Furoate [Asmanex 220Mcg -] 2 puff IH BID #2 inhaler 07/26/18 Mag Hydrox/Al Hydrox/Simeth [MAALOX *SUSPENSION* -] 30 ml PO Q6H PRN #1 bottle 09/27/18 Polyethylene Glycol 3350 [Miralax 119 gm Btl -] 17 gm PO BID #1 bottle 09/27/18 Sennosides/Docusate Sodium [Senna Laxative Tablet] 1 each PO DAILY #20 tablet Chlorthalidone [Hygroton -] 25 mg PO DAILY #60 tablet 10/14/18 Rosuvastatin [Crestor -] 20 mg PO HS #30 tablet 10/14/18 Amlodipine Besylate [Norvasc -] 10 mg PO DAILY 03/01/19 Arformoterol Tartrate [Brovana] 15 mcg IH DAILY 03/01/19 Budesonide/Formeterol Fumarate [SYMBICORT 160/4.5mcg -] 1 inh PO BID 03/01/19 Diazepam 5 mg PO PRN 03/01/19 HYDROmorphone [Dilaudid -] 4 mg PO Q4H 03/01/19 Lipase/Protease/Amylase [Stacy Dr 36,000 Units Capsule] 1 each PO TID 03/01/19 Mesalamine [Pentasa] 500 mg PO TID 03/01/19 Ondansetron [Zofran -] 4 mg PO TID 03/01/19 Oxycodone HCl/Acetaminophen [Oxycodone-Acetaminophen 10-325] 1 each PO BID 03/01 Prednisone 60 mg PO DAILY 03/01/19 Tapentadol ER [Nucynta *ER*] 150 mg PO BID 03/01/19 Family Disease History - Family Disease History Family Disease History: Diabetes: Mother ( 58: diabetic complications), CA: Father ( 49: asbestosis), Respiratory: Brother (bronchial asthma, DVT), Other: Mother, Sister (BCA), Son (2, healthy), Daughter (1, healthy) Review of Systems - Review of Systems Constitutional: reports: No Symptoms Eyes: reports: No Symptoms HENT: reports: No Symptoms Neck: reports: No Symptoms Cardiovascular: reports: Chest Pain, Edema, Shortness of Breath Respiratory: reports: Cough, Exercise Intolerance, SOB, SOB on Exertion Gastrointestinal: reports: No Symptoms Genitourinary: reports: No Symptoms Breasts: reports: No Symptoms Reported Musculoskeletal: reports: Back Pain, Extremity Pain, Joint Pain Integumentary: reports: No Symptoms Neurological: reports: Dizziness Endocrine: reports: No Symptoms Hematology/Lymphatic: reports: No Symptoms Psychiatric: reports: No Symptoms Pain Intensity: 8 Physical Examination Vital Signs: Vital Signs Temperature 98.8 F 03/01/19 23:38 Pulse Rate 101 H 03/01/19 23:38 Respiratory Rate 22 H 03/01/19 20:15 Blood Pressure 151/87 03/01/19 23:38 O2 Sat by Pulse Oximetry (%) 99 03/01/19 23:38 Constitutional: Yes: Anxious, Mild Distress, Obese Eyes: Yes: WNL, Conjunctiva Clear, EOM Intact, PERRL HENT: Yes: Atraumatic, Normocephalic Neck: Yes: Supple, Trachea Midline, Other (Trach with plug- intact) Cardiovascular: Yes: Regular Rate and Rhythm, S1, S2 Respiratory: Yes: Cough, On Nasal O2, Rhonchi, SOB, Wheezes Gastrointestinal: Yes: Abdomen, Obese, Hypoactive Bowel Sounds Renal/: Yes: WNL Breast(s): Yes: WNL Musculoskeletal: Yes: Back Pain Edema: Yes Edema: LLE: 2+, RLE: 2+ Peripheral Pulses WNL: Yes Neurological: Yes: Alert, Oriented ...Motor Strength: WNL Psychiatric: Yes: Alert, Oriented Labs: CBC, BMP 03/01/19 18:40 03/01/19 18:40 Laboratory Results - last 24 hr 03/01/19 03/01/19 18:40 18:40 WBC 14.0 H RBC 4.51 Hgb 12.0 Hct 37.1 MCV 82.2 MCH 26.5 MCHC 32.2 RDW 16.4 H Plt Count 358 MPV 7.9 D Absolute Neuts (auto) 8.5 H Neutrophils % 61.0 D Lymphocytes % 30.5 D Monocytes % 7.1 Eosinophils % 0.1 D Basophils % 1.3 Nucleated RBC % 0 Sodium 142 Potassium 4.6 Chloride 106 Carbon Dioxide 28 Anion Gap 8 BUN 24.3 H Creatinine 1.3 Est GFR (CKD-EPI)AfAm 66.36 Est GFR (CKD-EPI)NonAf 57.26 Random Glucose 151 H Calcium 9.1 Total Bilirubin 0.4 AST 55 H ALT 67 H Alkaline Phosphatase 91 Creatine Kinase 734 H Creatine Kinase Index 1.9 CK-MB (CK-2) 14.2 H Troponin I < 0.02 B-Natriuretic Peptide 192.4 H Total Protein 7.0 Albumin 3.4 Intake & Output 02/27/19 02/28/19 03/01/19 03/02/19 23:59 23:59 23:59 23:59 Weight 136.078 kg Confidential Drug Utilization Report Search Terms: rock jang, 1955 Search Date: 03/02/2019 12:18:16 AM Others' Prescriptions Patient Name: Rock Jang Date: 1955 Address: [address] [place] [address] Sex: Male Rx Written Rx Dispensed Drug Quantity Days Supply Prescriber Name 02/14/2019 02/17/2019 nucynta er 150 mg tablet 60 30 Xavier Prince MD 02/14/2019 02/17/2019 oxycodone-acetaminophen 10-325 mg tab 180 23 Xavier Prince MD 11/19/2018 11/22/2018 balance equal 5mg thc and 5mg cbd/5 drops sl tincture 1 10 Markus Tobin MD 11/19/2018 11/22/2018 forte high thc 2.35mg thc and less than 0.1mg cbd/ inhalation 1 10 Markus Tobin MD 10/28/2018 10/31/2018 nucynta er 150 mg tablet 60 30 Xavier Prince MD 10/28/2018 10/31/2018 oxycodone-acetaminophen 10-325 mg tab 180 30 Xavier Prince MD 10/28/2018 10/31/2018 hydromorphone 4 mg tablet 120 30 Xavier Prince MD 05/05/2018 05/05/2018 morphine sulf er 15 mg tablet 60 30 Kyle Mackey ) 05/05/2018 05/05/2018 hydromorphone 4 mg tablet 100 16 Kyle Mackey) 03/23/2018 03/26/2018 nucynta er 150 mg tablet 60 30 Xavier Prince MD 03/23/2018 03/26/2018 oxycodone-acetaminophen 10-325 mg tab 180 15 Xavier Prince MD 03/23/2018 03/26/2018 hydromorphone 4 mg tablet 120 20 Xavier Prince MD Imaging - Results Chest X-ray: Image Reviewed EKG: Image Reviewed (NSR no ST or TWI QT/QTc 354/442) Problem List - Problems (1) COPD exacerbation Code(s): J44.1 - CHRONIC OBSTRUCTIVE PULMONARY DISEASE W (ACUTE) EXACERBATION (2) Acute diastolic (congestive) heart failure Code(s): I50.31 - ACUTE DIASTOLIC (CONGESTIVE) HEART FAILURE (3) SOB (shortness of breath) Code(s): R06.02 - SHORTNESS OF BREATH (4) Chest pain Code(s): R07.9 - CHEST PAIN, UNSPECIFIED Qualifiers: Chest pain type: other chest pain Qualified Code(s): R07.89 - Other chest pain; R07.8 - Other chest pain (5) HTN (hypertension) Code(s): I10 - ESSENTIAL (PRIMARY) HYPERTENSION (6) Hx of heart artery stent Code(s): Z95.5 - PRESENCE OF CORONARY ANGIOPLASTY IMPLANT AND GRAFT (7) Hyperlipidemia Code(s): E78.5 - HYPERLIPIDEMIA, UNSPECIFIED (8) Intractable low back pain Code(s): M54.5 - LOW BACK PAIN (9) Coronary artery disease Code(s): I25.10 - ATHSCL HEART DISEASE OF [place] CORONARY ARTERY W/O ANG PCTRS (10) Diabetes mellitus Code(s): E11.9 - TYPE 2 DIABETES MELLITUS WITHOUT COMPLICATIONS (11) GRACIE (obstructive sleep apnea) Code(s): G47.33 - OBSTRUCTIVE SLEEP APNEA (ADULT) (PEDIATRIC) (12) Tracheostomy in place Code(s): Z98.89 - OTHER SPECIFIED POSTPROCEDURAL STATES * DO NOT USE * (13) Asthma Code(s): J45.909 - UNSPECIFIED ASTHMA, UNCOMPLICATED Qualifiers: Asthma severity: unspecified severity (14) BMI 39.0-39.9,adult Code(s): Z68.39 - BODY MASS INDEX (BMI) 39.0-39.9, ADULT Assessment/Plan This is a 63 y/o man with a PMHx of COPD, Bronchial Asthma, Trach in place unplugs Sleep- GRACIE, CAD s/p CABG, NE, HTN, HLD, DM, Chronic Pancreatitis, Chronic Back Pain, SBO, Incarcerated Hernia Repair x2, H-Pylori, BPH, Anxiety. Admitted to Telemetry for Chest Pain, CHF Excerbation, COPD Exacerbation for further evaluation of their emergent condition. 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 Monitor CBC, BMP Leukocytosis likely due to inflammatory response vs stress vs infection, patient was taking steroids for COPD, currently afebrile BGMs FEN- Fluid Restriction 1L, Replete lytes prn, Low Na, Diabetic Diet DVT ppx- OOB, SCDs, Heparin Sq Dispo: Requires Inpatient Care Visit type - Emergency Visit Emergency Visit: Yes ED Registration Date: 03/01/19 Care time: The patient presented to the Emergency Department on the above date and was hospitalized for further evaluation of their emergent condition. - New Patient This patient is new to me today: Yes Date on this admission: 03/01/19 - Critical Care Critical Care patient: No
[2019-03-02] MEDS ORDERED: HYDROmorphone HCL 2 MG TABLET PO ONE (01:26)
[2019-03-02] MEDS ORDERED: ALBUTEROL SO4 0.083% IH SOL 2.5 MG/3 ML VIAL.NEB. NEB PRN (01:28)
[2019-03-02] MEDS ORDERED: MAG HYDROX/AL HYDROX/SIMETH -MYLANTA- ORAL SUSPENSION PO PRN (01:28)
[2019-03-02] MEDS ORDERED: HYDROmorphone HCL 2 MG TABLET ONE (02:02)
[2019-03-02] MEDS: BUDESONIDE/FORMETEROL FUMARATE 160/4.5 mcg INHALER IH SCH ×3 (03:42→23:38)
[2019-03-02] MEDS: GABAPENTIN 400 MG CAPSULE (FP) PO SCH ×3 (06:02→23:39)
[2019-03-02] MEDS ORDERED: TAMSULOSIN HCL 0.4 MG CAP PO SCH (08:30)
[2019-03-02 08:59] LABS: BASO % 0.2 % (0-2.0); HEMATOCRIT 36.8 % (35.4-49); LYMPH % 14.3 % (8-40); MCH 26.6 pg (25.7-33.7); MCHC 32.5 g/dl (32.0-35.9); MEAN CELL VOLUME 81.8 fl (80-96); MEAN PLT VOLUME 7.2 fl (7.5-11.1); MONO % 2.1 % (3.8-10.2); NEUT % 83.4 % (42.8-82.8); PLATELET COUNT 314 K/MM3 (134-434); RDW 16.3 % (11.9-15.9); WHITE BLOOD COUNT 12.7 K/mm3 (4.0-10.0)
[2019-03-02] MEDS: LIPASE/PROTEASE/AMYLASE 36,000 UNIT CAPSULE PO SCH ×3 (09:03→17:33)
[2019-03-02] MEDS: POLYETHYLENE GLYCOL 3350 119 GM BTL PO SCH ×2 (09:04→23:45)
[2019-03-02 09:15] LABS: ANION GAP 10 MMOL/L (8-16); BLOOD UREA NITROGEN 31.8 mg/dL (7-18); CALCIUM 9.2 mg/dL (8.5-10.1); CHLORIDE 104 mmol/L (98-107); CO2 27 mmol/L (21-32); CREATININE 1.5 mg/dL (0.55-1.3); GLUCOSE,RANDOM 162 mg/dL (74-106); POTASSIUM 4.3 mmol/L (3.5-5.1); SODIUM 141 mmol/L (136-145)
[2019-03-02] MEDS ORDERED: HYDROmorphone HCl 2 MG/ML VIAL ONE (09:22)
[2019-03-02] MEDS: MOMETASONE FUROATE 220 MCG/IH INHALER IH SCH ×2 (09:23→23:37)
[2019-03-02] MEDS ORDERED: HYDROmorphone HCL CARPU-JECT 2 MG/1 ML DISP.SYRIN IVPB ONE (09:24)
[2019-03-02] MEDS ORDERED: amLODIPine BESYLATE 10 MG TABLET (FP) PO SCH (10:00)
[2019-03-02] MEDS ORDERED: ASPIRIN COATED 81 MG TABLET.EC PO SCH (10:00)
[2019-03-02] MEDS ORDERED: ARFORMOTEROL TARTRATE 15 MCG/2 ML VIAL NEB SCH (10:00)
[2019-03-02] MEDS ORDERED: FINASTERIDE 5 MG TABLET (FP) PO SCH (10:00)
[2019-03-02] MEDS ORDERED: SENNOSIDES/DOCUSATE COMBO (SENNA PLUS) TABLET (UD) PO SCH (10:00)
[2019-03-02] MEDS ORDERED: FUROSEMIDE 40 MG/4 ML INJECTABLE VIAL IVPUSH SCH (10:00)
[2019-03-02] MEDS ORDERED: AMITRIPTYLINE HCL 75 MG TABLET PO SCH ×2 (10:00→22:00)
[2019-03-02] MEDS ORDERED: PANTOPRAZOLE 20 MG TABLET (FP) PO SCH (10:00)
[2019-03-02] MEDS ORDERED: methylPREDNISolone NA SUCC 40 MG/1 ML VIAL IVPUSH SCH (10:00)
[2019-03-02] MEDS ORDERED: RAMIPRIL 5 MG CAPSULE (FP) PO SCH (10:00)
[2019-03-02] MEDS ORDERED: CHLORTHALIDONE 25 MG TABLET PO SCH (10:00)
[2019-03-02] MEDS ORDERED: HYDROmorphone HCl 2 MG/ML VIAL IVPB ONE (10:00)
[2019-03-02] MEDS ORDERED: CLOPIDOGREL BISULFATE 75 MG TABLET (FP) PO SCH (10:00)
[2019-03-02] MEDS: TAPENTADOL HCL 50 MG TAB.ER.12H PO SCH (10:38)
--- NOTE | 2019-03-02 11:46 | PN ---
Progress Note, Physician Chief Complaint: patient seen and examined in ER+ complaining of back pain and leg pain and increase leg swelling wants his IV Dilaudid bc of back pain last saw Dr wood regarding back pain who recommending surgery if PT and meds don't work explained to patient he now needs back surgery and will get DARIEN to see him will down grade to med surg - Current Medication List Current Medications: Active Medications Al Hydroxide/Mg Hydroxide (Mylanta Suspension -) 30 ml PO Q6H PRN PRN Reason: DYSPEPSIA Albuterol Sulfate (Ventolin 0.083% Nebulizer Soln -) 1 amp NEB Q8H PRN PRN Reason: WHEEZING Amitriptyline HCl (Elavil -) 75 mg PO HS [facility] Amitriptyline HCl (Elavil -) 75 mg PO DAILY [facility] Last Admin: 03/02/19 10:38 Dose: 75 mg Amlodipine Besylate (Norvasc -) 10 mg PO DAILY [facility] Last Admin: 03/02/19 09:04 Dose: 10 mg Arformoterol Tartrate (Brovana (Restricted To Pulmonology/Resp) -) amp NEB DAILY [facility] Aspirin (Ecotrin -) 81 mg PO DAILY [facility] Last Admin: 03/02/19 09:03 Dose: 81 mg Budesonide/Formoterol Fumarate (Symbicort 160/4.5mcg -) 1 puff IH BID [facility] Last Admin: 03/02/19 10:03 Dose: 1 puff Chlorthalidone (Hygroton -) 25 mg PO DAILY [facility] Last Admin: 03/02/19 09:03 Dose: 25 mg Clopidogrel Bisulfate (Plavix -) 75 mg PO DAILY [facility] Last Admin: 03/02/19 09:04 Dose: 75 mg Ezetimibe (Zetia -) 10 mg PO HS [facility] Finasteride (Proscar -) 5 mg PO DAILY [facility] Last Admin: 03/02/19 09:04 Dose: 5 mg Furosemide (Lasix Injection -) 40 mg IVPUSH DAILY [facility] Last Admin: 03/02/19 09:03 Dose: 40 mg Gabapentin (Neurontin -) 800 mg PO TID [facility] Last Admin: 03/02/19 06:02 Dose: 800 mg Methylprednisolone Sodium Succinate (Solu-Medrol -) 40 mg IVPUSH DAILY [facility] Last Admin: 03/02/19 09:04 Dose: 40 mg Mometasone Furoate (Asmanex 220mcg -) 2 puff IH BID [facility] Last Admin: 03/02/19 09:23 Dose: 2 puff Montelukast Sodium (Singulair -) 10 mg PO HS [facility] Non-Formulary Medication (Insulin Pump Controller [Snap Insulin Pump Controller] ) 1 each MC ASDIR [facility] Non-Formulary Medication (Mesalamine [Pentasa]) 500 mg PO TID [facility] Oxycodone/Acetaminophen (Percocet 5/325 -) 2 combo PO BID [facility] Pancrelipase (Creon Dr 36,000 Units Capsule) 1 cap PO TIDCM [facility] Last Admin: 03/02/19 09:03 Dose: 1 cap Pantoprazole Sodium (Protonix -) 20 mg PO DAILY [facility] Last Admin: 03/02/19 09:04 Dose: 20 mg Polyethylene Glycol (Miralax (For Daily Use) -) 17 gm PO BID [facility] Last Admin: 03/02/19 09:04 Dose: 17 gm Ramipril (Altace -) 10 mg PO DAILY [facility] Last Admin: 03/02/19 09:03 Dose: 10 mg Rosuvastatin Calcium (Crestor -) 20 mg PO [facility] Senna/Docusate Sodium (Pericolace -) 1 tablet PO DAILY [facility] Last Admin: 03/02/19 09:04 Dose: 1 tablet Tamsulosin HCl (Flomax -) 0.4 mg PO DAILY@0830 [facility] Last Admin: 03/02/19 09:03 Dose: 0.4 mg Tapentadol (Nucynta Er -) 150 mg PO BID [facility] Last Admin: 03/02/19 10:38 Dose: 150 mg - Objective Vital Signs: Vital Signs Temperature 98.4 F 03/02/19 07:15 Pulse Rate 113 H 03/02/19 07:15 Respiratory Rate 18 03/02/19 07:15 Blood Pressure 157/83 03/02/19 07:15 O2 Sat by Pulse Oximetry (%) 99 03/02/19 10:00 Constitutional: Yes: Anxious Neck: Yes: Other (tracheostomy) Cardiovascular: Yes: Regular Rate and Rhythm, S1, S2 Respiratory: Yes: Diminished, On Nasal O2, Other (no wheezing) Gastrointestinal: Yes: Normal Bowel Sounds, Soft Edema: Yes Edema: LLE: 1+, RLE: 1+ Neurological: Yes: Alert, Oriented Labs: CBC, BMP 03/02/19 07:56 03/02/19 07:56 Problem List - Problems (1) COPD (chronic obstructive pulmonary disease) Assessment/Plan: inhaled bronchodilators oxygen keep O2>90 pulm consul take 60mg po prdensione at home will give iv medrol Code(s): J44.9 - CHRONIC OBSTRUCTIVE PULMONARY DISEASE, UNSPECIFIED (2) Intractable low back pain Assessment/Plan: DARIEN evaluation for surgery pain control with oral meds pain consult dr leung PT evaluation Code(s): M54.5 - LOW BACK PAIN (3) ASHD (arteriosclerotic heart disease) Assessment/Plan: cardiology consult EKG reviewed 3 Ce negative will need to hold aspirin and plavix for 5 days prior to surgery will have cardiology clear the patient Code(s): I25.10 - ATHSCL HEART DISEASE OF [place] CORONARY ARTERY W/O ANG PCTRS (4) Leg edema Assessment/Plan: iv lasix bid monitor renal function Code(s): R60.0 - LOCALIZED EDEMA (5) Diabetes mellitus Assessment/Plan: yocasta get endocrine to see patient on insulin pump for now Code(s): E11.9 - TYPE 2 DIABETES MELLITUS WITHOUT COMPLICATIONS Qualifiers: Diabetes mellitus type: type 2 Assessment/Plan PT eval cardioloogy cleareance DARIEN eval for surgery pain management
--- NOTE | 2019-03-02 12:49 | CON.PULM ---
Consult Consult Specialty:: PULMONARY Referred by:: Dr Jaeger Reason for Consultation:: shortness of breath - History of Present Illness Chief Complaint: shortness of breath History of Present Illness: 63yo male with h/o HTN, DM, hyperlipidemia, COPD/asthma, GRACIE s/p tracheostomy, CAD s/p CABG, LV diastolic dysfunction, chronic pain syndrome with opiate dependence who presents with worsening shortness of breath x 2-3 weeks. Denies chest pain or palpitations. Does report subjective fevers. +cough with beige sputum and wheezing. He is on chronic prednisone, has been on 60mg daily for the past week. Also reports increased leg swelling and orthopnea. 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 Planned EMG/ NCVs studies and evaluation of motor weakness in process by treating neurologist Dr. Singh) Cardio/Vascular: Yes: CAD (Last stents placed x 2 last year per patient), CHF (s /p UT several years ago; s/p stenting. mild CHF in the past.), HTN, Hyperlipdemia, UT, Pulmonary Hypertension Pulmonary: Yes: Asthma, COPD, Sleep Apnea Gastrointestinal: Yes: Constipation, Pancreatitis (? history of chronic pancreatitis with episodes of acute pancreatitis), Other (FECAL INCONTINENCE SECONDARY TO OVERFLOW followed by Dr. Abdoulaye Wu, IPMN, PANCREATITIS . HAD EPISODE OF ISCHEMIC COLITIS LAST ADMISSION) Renal/: Yes: BPH Psych: Yes: Depression Musculoskeletal: Yes: Chronic low back pain (has back stimulator), Other ( CHRONIC NECK PAIN s/p Lumbar and Cervical fusion ) Endocrine: Yes: Diabetes Mellitus (has insulin pump) - Past Surgical History Past Surgical History: Yes: Breast Biopsy, Colonoscopy, Laminectomy, Stent (1 non eluting, 5 eluting) - Alcohol/Substance Use Hx Alcohol Use: No History of Substance Use: reports: None, Prescription (opiates for chronic pain post cervical spine surgery. 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 History of Recent Travel: No Home Medications - Allergies Allergies/Adverse Reactions: Allergies Allergy/AdvReac Type Severity Reaction Status Date / Time shellfish derived Allergy Severe Verified 03/01/19 18:27 Tetracyclines Allergy Severe Verified 03/01/19 18:27 - Home Medications Home Medications: Ambulatory Orders Albuterol Sulfate Inhaler - [Ventolin HFA Inhaler -] 1 - 2 inh PO Q4H PRN Arformoterol Tartrate [Brovana] 15 mcg IH ASDIR 08/18/17 Aspirin [Aspirin EC] 81 mg PO DAILY 08/18/17 Clopidogrel Bisulfate [Plavix] 75 mg PO DAILY 08/18/17 Dexlansoprazole [Dexilant] 30 mg PO DAILY 08/18/17 Ezetimibe [Zetia -] 10 mg PO HS 08/18/17 Furosemide [Lasix] 40 mg PO DAILY 08/18/17 Insulin Pump Controller [Snap Insulin Pump Controller] 1 each MC ASDIR 08/18/17 Montelukast Sodium [Singulair] 10 mg PO DAILY 08/18/17 Tiotropium [place] [Spiriva] 1 puff IH DAILY 08/18/17 Finasteride [Proscar -] 5 mg PO DAILY tablet 09/20/17 Lipase/Protease/Amylase [Stacy Hackett 36,000 Units Capsule] 1 cap PO TIDCM capsule. 09/20/17 Ramipril [Altace] 10 mg PO DAILY capsule 09/20/17 Tamsulosin HCl [Flomax -] 0.4 mg PO DAILY@0830 cap.er.24h 09/20/17 Amitriptyline HCl [Elavil -] 75 mg PO DAILY 03/30/18 Gabapentin 800 mg PO TID 03/30/18 Albuterol 0.083% Nebulizer Elena [Ventolin 0.083% Nebulizer Soln -] 1 amp NEB Q8H PRN #30 amp 07/26/18 Mometasone Furoate [Asmanex 220Mcg -] 2 puff IH BID #2 inhaler 07/26/18 Mag Hydrox/Al Hydrox/Simeth [MAALOX *SUSPENSION* -] 30 ml PO Q6H PRN #1 bottle 09/27/18 Polyethylene Glycol 3350 [Miralax 119 gm Btl -] 17 gm PO BID #1 bottle 09/27/18 Sennosides/Docusate Sodium [Senna Laxative Tablet] 1 each PO DAILY #20 tablet Chlorthalidone [Hygroton -] 25 mg PO DAILY #60 tablet 10/14/18 Rosuvastatin [Crestor -] 20 mg PO HS #30 tablet 10/14/18 Amlodipine Besylate [Norvasc -] 10 mg PO DAILY 03/01/19 Arformoterol Tartrate [Brovana] 15 mcg IH DAILY 03/01/19 Budesonide/Formeterol Fumarate [SYMBICORT 160/4.5mcg -] 1 inh PO BID 03/01/19 Diazepam 5 mg PO PRN 03/01/19 HYDROmorphone [Dilaudid -] 4 mg PO Q4H 03/01/19 Lipase/Protease/Amylase [Creon Dr 36,000 Units Capsule] 1 each PO TID 03/01/19 Mesalamine [Pentasa] 500 mg PO TID 03/01/19 Ondansetron [Zofran -] 4 mg PO TID 03/01/19 Oxycodone HCl/Acetaminophen [Oxycodone-Acetaminophen 10-325] 1 each PO BID 03/01 Prednisone 60 mg PO DAILY 03/01/19 Tapentadol ER [Nucynta *ER*] 150 mg PO BID 03/01/19 Family Disease History - Family Disease History Family Disease History: Diabetes: Mother ( 58: diabetic complications), CA: Father ( 49: asbestosis), Respiratory: Brother (bronchial asthma, DVT), Other: Mother, Sister (BCA), Son (2, healthy), Daughter (1, healthy) Review of Systems - Review of Systems Constitutional: reports: Fever, Weakness. denies: Chills Eyes: denies: Recent Change in Vision HENT: denies: Nasal Congestion, Throat Pain Neck: denies: Stiffness, Tenderness Cardiovascular: reports: Edema, Shortness of Breath. denies: Chest Pain, Palpitations Respiratory: reports: Cough, Exercise Intolerance, Orthopnea, SOB on Exertion, Wheezing. denies: Hemoptysis Gastrointestinal: denies: Abdominal Pain, Nausea, Vomiting Genitourinary: denies: Dysuria, Hematuria Musculoskeletal: reports: Back Pain Neurological: denies: Dizziness, Headache Endocrine: denies: Unexplained Weight Loss Physical Exam Vital Sings: Vital Signs Temperature 98.5 F 03/02/19 12:24 Pulse Rate 110 H 03/02/19 12:24 Respiratory Rate 18 03/02/19 12:24 Blood Pressure 158/98 03/02/19 12:24 O2 Sat by Pulse Oximetry (%) 95 03/02/19 12:24 Constitutional: Yes: Anxious, Mild Distress Eyes: Yes: Conjunctiva Clear, EOM Intact HENT: Yes: Atraumatic, Normocephalic Neck: Yes: Supple, Trachea Midline Cardiovascular: Yes: Regular Rate and Rhythm Respiratory: Yes: Rhonchi, Wheezes ...Clubbing: No Gastrointestinal: Yes: Normal Bowel Sounds, Soft. No: Tenderness Edema: No Neurological: Yes: Alert, Oriented Labs: CBC, BMP 03/02/19 07:56 03/02/19 07:56 Imaging - Results Chest X-ray: Report Reviewed, Image Reviewed (no infiltrates) Problem List - Problems (1) COPD exacerbation Code(s): J44.1 - CHRONIC OBSTRUCTIVE PULMONARY DISEASE W (ACUTE) EXACERBATION Assessment/Plan Acute COPD Exacerbation Acute on Chronic Diastolic Heart Failure Chronic Hypoxic Respiratory Failure Obstructive Sleep Apnea s/p Tracheostomy CAD s/p CABG HTN DM Hyperlipidemia Spinal Stenosis Chronic Pain Syndrome Opiate Dependence - IV medrol - inhaled bronchodilators standing and PRN - O2 to keep Spo2 >90% - azithromycin - IV lasix - monitor urine output, creatinine - uncap tracheostomy when sleeping - would control pain as his anxiety about pain medications often exacerbates his COPD, pt usually gets dilaudid 4mg for breakthrough pain - DVT prophylaxis Thank you for this consult Bola Morgan MD
--- NOTE | 2019-03-02 13:44 | CON.CARD ---
Consult Consult Specialty:: cardiology Reason for Consultation:: SOB; hx diastolic CHF, CAD s/p PCI - History of Present Illness History of Present Illness: 63 year old black man with a significant past medical history of CAD s/p MT, stents x6 (most recently 12/2015), CABG, HTN, diastolic CHF, HLD, Chronic Pancreatitis, Chronic Back pain, SBO, Incarcerated Hernia s/p repair x2 (September 2017), H.Pylori, BPH, COPD, Bronchial Asthma, Tracheostomy in place (unplugs when sleeping for GRACIE),and anxiety, who presents with worsening shortness of breath for 2-3 weeks, 1 week of productive cough of yellow phlegm and 2-3 days of chest pain and bilateral leg swelling. He reports his chest pain is L sided pressure like 5-6/10 intermittent radiating to the side and back. He admits to lightheadedness but denies nausea or diaphoresis. He staties that he has taken prednisone 60mg everday for 3 days and doubled his lasix to 80mg a day for 4 days. He reports his symptoms feel like a CHF exacerbation. He took albuterol and breathing treatment prior to arrival. He has no other complaints at bedside. As discussed with his sales and marketing assistant, Dr. Bola Elaine, today, he has had multiple admissions for chest pain since the last coronary stent; these have been negative for MT. (07/2016 dobutamine stress MIBI at [facility] : small, mild periinfarct inferior wall ischemia; pt may have had a more recent stress MIBI or angiogram as an outpatient). 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 Planned EMG/ NCVs studies and evaluation of motor weakness in process by treating neurologist Dr. Singh) Cardio/Vascular: Yes: CAD (Last stents placed x 2 last year per patient), CHF (s /p MT several years ago; s/p stenting. mild CHF in the past.), HTN, Hyperlipdemia, [place], Pulmonary Hypertension Pulmonary: Yes: Asthma, COPD, Sleep Apnea Gastrointestinal: Yes: Constipation, Pancreatitis (? history of chronic pancreatitis with episodes of acute pancreatitis), Other (FECAL INCONTINENCE SECONDARY TO OVERFLOW followed by Dr. Abdoulaye Wu, IPMN, PANCREATITIS . HAD EPISODE OF ISCHEMIC COLITIS LAST ADMISSION) Renal/: Yes: BPH Psych: Yes: Depression Musculoskeletal: Yes: Chronic low back pain (has back stimulator), Other ( CHRONIC NECK PAIN s/p Lumbar and Cervical fusion ) Endocrine: Yes: Diabetes Mellitus (has insulin pump) - Past Surgical History Past Surgical History: Yes: Breast Biopsy, Colonoscopy, Laminectomy, Stent (1 non eluting, 5 eluting) - Alcohol/Substance Use Hx Alcohol Use: No History of Substance Use: reports: None, Prescription (opiates for chronic pain post cervical spine surgery. 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 History of Recent Travel: No Home Medications - Allergies Allergies/Adverse Reactions: Allergies Allergy/AdvReac Type Severity Reaction Status Date / Time shellfish derived Allergy Severe Verified 03/01/19 18:27 Tetracyclines Allergy Severe Verified 03/01/19 18:27 - Home Medications Home Medications: Ambulatory Orders Albuterol Sulfate Inhaler - [Ventolin HFA Inhaler -] 1 - 2 inh PO Q4H PRN Arformoterol Tartrate [Brovana] 15 mcg ASDIR 08/18/17 Aspirin [Aspirin EC] 81 mg PO DAILY 08/18/17 Clopidogrel Bisulfate [Plavix] 75 mg PO DAILY 08/18/17 Dexlansoprazole [Dexilant] 30 mg PO DAILY 08/18/17 Ezetimibe [Zetia -] 10 mg PO HS 08/18/17 Furosemide [Lasix] 40 mg PO DAILY 08/18/17 Insulin Pump Controller [Snap Insulin Pump Controller] 1 each ASDIR 08/18/17 Montelukast Sodium [Singulair] 10 mg PO DAILY 08/18/17 Tiotropium [place] [Spiriva] 1 puff IH DAILY 08/18/17 Finasteride [Proscar -] 5 mg PO DAILY tablet 09/20/17 Lipase/Protease/Amylase [Stacy Hackett 36,000 Units Capsule] 1 cap PO TIDCM capsule. 09/20/17 Ramipril [Altace] 10 mg PO DAILY capsule 09/20/17 Tamsulosin HCl [Flomax -] 0.4 mg PO DAILY@0830 cap.er.24h 09/20/17 Amitriptyline HCl [Elavil -] 75 mg PO DAILY 03/30/18 Gabapentin 800 mg PO TID 03/30/18 Albuterol 0.083% Nebulizer Elena [Ventolin 0.083% Nebulizer Soln -] 1 amp NEB Q8H PRN #30 amp 07/26/18 Mometasone Furoate [Asmanex 220Mcg -] 2 puff IH BID #2 inhaler 07/26/18 Mag Hydrox/Al Hydrox/Simeth [MAALOX *SUSPENSION* -] 30 ml PO Q6H PRN #1 bottle 09/27/18 Polyethylene Glycol 3350 [Miralax 119 gm Btl -] 17 gm PO BID #1 bottle 09/27/18 Sennosides/Docusate Sodium [Senna Laxative Tablet] 1 each PO DAILY #20 tablet Chlorthalidone [Hygroton -] 25 mg PO DAILY #60 tablet 10/14/18 Rosuvastatin [Crestor -] 20 mg PO HS #30 tablet 10/14/18 Amlodipine Besylate [Norvasc -] 10 mg PO DAILY 03/01/19 Arformoterol Tartrate [Brovana] 15 mcg IH DAILY 03/01/19 Budesonide/Formeterol Fumarate [SYMBICORT 160/4.5mcg -] 1 inh PO BID 03/01/19 Diazepam 5 mg PO PRN 03/01/19 HYDROmorphone [Dilaudid -] 4 mg PO Q4H 03/01/19 Lipase/Protease/Amylase [Stacy Hackett 36,000 Units Capsule] 1 each PO TID 03/01/19 Mesalamine [Pentasa] 500 mg PO TID 03/01/19 Ondansetron [Zofran -] 4 mg PO TID 03/01/19 Oxycodone HCl/Acetaminophen [Oxycodone-Acetaminophen 10-325] 1 each PO BID 03/01 Prednisone 60 mg PO DAILY 03/01/19 Tapentadol ER [Nucynta *ER*] 150 mg PO BID 03/01/19 Family Disease History - Family Disease History Family Disease History: Diabetes: Mother ( 58: diabetic complications), CA: Father ( 49: asbestosis), Respiratory: Brother (bronchial asthma, DVT), Other: Mother, Sister (BCA), Son (2, healthy), Daughter (1, healthy) Review of Systems - Review of Systems Constitutional: reports: Weakness Eyes: reports: No Symptoms HENT: reports: No Symptoms Neck: reports: No Symptoms Cardiovascular: reports: Chest Pain (atypical; chronic), Shortness of Breath Respiratory: reports: SOB on Exertion Gastrointestinal: reports: Bloating Genitourinary: reports: No Symptoms Breasts: reports: No Symptoms Reported Musculoskeletal: reports: Joint Pain, Muscle Pain, Muscle Weakness Neurological: reports: Weakness Endocrine: reports: No Symptoms Hematology/Lymphatic: reports: No Symptoms Psychiatric: reports: Altered Sleep Pattern, Anxiety, Other (opiate dependence) Vital Signs: Vital Signs Temperature 98.5 F 03/02/19 12:24 Pulse Rate 110 H 03/02/19 12:24 Respiratory Rate 18 03/02/19 12:24 Blood Pressure 158/98 03/02/19 12:24 O2 Sat by Pulse Oximetry (%) 95 03/02/19 12:24 - Other Data Labs, Other Data: CBC, BMP 03/02/19 07:56 03/02/19 07:56 Troponin, BNP 03/01/19 03/02/19 03/02/19 18:40 00:00 07:56 Troponin I < 0.02 < 0.02 < 0.02 B-Natriuretic Peptide 192.4 H Troponin, BNP 03/01/19 03/02/19 03/02/19 18:40 00:00 07:56 Troponin I < 0.02 < 0.02 < 0.02 B-Natriuretic Peptide 192.4 H Problem List - Problems (1) BMI 39.0-39.9,adult Code(s): Z68.39 - BODY MASS INDEX (BMI) 39.0-39.9, ADULT (2) Leg edema Code(s): R60.0 - LOCALIZED EDEMA (3) Diastolic CHF Assessment/Plan: Pt SOB, but no JVD or acute CXR changes. BNP 192 (was as high as 1,507 last year). Increasing BUN/Cr. Plan: decrease, and eventually stop, furosemide. On bronchodilators, steroids,montelukast, and antibiotics per collections analyst for exacerbation of COPD, ?PNA. Code(s): I50.30 - UNSPECIFIED DIASTOLIC (CONGESTIVE) HEART FAILURE (4) Anxiety Code(s): F41.9 - ANXIETY DISORDER, UNSPECIFIED (5) Opiate dependence Assessment/Plan: Will require long-term help, ideally, for pain management, psychological counseling, and gradual weaning from opiates. Code(s): F11.20 - OPIOID DEPENDENCE, UNCOMPLICATED (6) Renal insufficiency Assessment/Plan: avoid overzealous diuresis. F?u BUN/Cr (Cr 1.1 on 07/2018)), Is and Os, daily weight electrolytes (on chlorthalidone, furosemide, ACEI) Given absence of volume overload presently, would plan to stop furosemide. Code(s): N28.9 - DISORDER OF KIDNEY AND URETER, UNSPECIFIED (7) HTN (hypertension) Code(s): I10 - ESSENTIAL (PRIMARY) HYPERTENSION (8) Hyperlipidemia Assessment/Plan: Diet control; weight loss; exercise. statin; keep LDL < 70 mg/dl. Code(s): E78.5 - HYPERLIPIDEMIA, UNSPECIFIED (9) Hx of heart artery stent Code(s): Z95.5 - PRESENCE OF CORONARY ANGIOPLASTY IMPLANT AND GRAFT (10) COPD exacerbation Assessment/Plan: Please see under "diastolic CHF". Code(s): J44.1 - CHRONIC OBSTRUCTIVE PULMONARY DISEASE W (ACUTE) EXACERBATION (11) Atypical chest pain Assessment/Plan: Sharp chest pains exacerbated by deep inspiration. TNI 0.02; f/u serially. EKG: normal sinus rhythm; normal study. Discussed with pt's private sales and marketing assistant (Dr. Elaine) today. Records regarding most recent coronary artery workup (has apparently not required coronary stent since 2016). On ASA and clopidogrel. Statin. Code(s): R07.89 - OTHER CHEST PAIN
[2019-03-02] MEDS ORDERED: RAMIPRIL 5 MG CAPSULE (FP) PO ONE (14:05)
[2019-03-02] MEDS: TIOTROPIUM BROMIDE 2.5 MCG (SPIRIVA) RESPIMAT INHALER IH SCH (14:25)
[2019-03-02] MEDS ORDERED: HEPARIN NA (PORCINE) 5,000 UNITS/ML 1ML VIAL ONE (14:27)
[2019-03-02] MEDS: HEPARIN NA (PORCINE) 5,000 UNITS/ML 1ML VIAL SQ SCH ×2 (14:33→23:38)
[2019-03-02] MEDS ORDERED: FUROSEMIDE 40 MG/4 ML INJECTABLE VIAL ONE (14:34)
[2019-03-02] MEDS: FUROSEMIDE 40 MG/4 ML INJECTABLE VIAL IVPUSH SCH (14:36)
--- NOTE | 2019-03-02 16:59 | EKG ---
Test Reason : Blood Pressure : / mmHG Vent. Rate : 094 BPM Atrial Rate : 094 BPM P-R Int : 150 ms QRS Dur : 092 ms QT Int : 354 ms P-R-T Axes : 048 045 055 degrees QTc Int : 442 ms NORMAL SINUS RHYTHM NORMAL ECG WHEN COMPARED WITH ECG OF 03-NOV-2018 10:34, NO SIGNIFICANT CHANGE WAS FOUND Confirmed by PAULA HYLTON MD ([id number]) on 03/02/2019 4:59:19 PM Referred By: Confirmed By:PAULA HYLTON MD
[2019-03-02] MEDS ORDERED: INSULIN (NOVOLOG) ASPART 100 UNITS/ML 10ML VIAL ONE (17:38)
[2019-03-02] MEDS: methylPREDNISolone NA SUCC 40 MG/1 ML VIAL IVPUSH SCH (21:19)
[2019-03-02] MEDS ORDERED: ROSUVASTATIN CA 20 MG TABLET (FP) PO SCH (22:00)
[2019-03-02] MEDS ORDERED: EZETIMIBE 10 MG TABLET (FP) PO SCH (22:00)
[2019-03-02] MEDS ORDERED: MONTELUKAST NA 10 MG TABLET PO SCH (22:00)
[2019-03-02] MEDS: ARFORMOTEROL TARTRATE 15 MCG/2 ML VIAL NEB SCH (23:00)
[2019-03-02] MEDS: ALBUTEROL SO4 0.083% IH SOL 2.5 MG/3 ML VIAL.NEB. NEB PRN (23:00)
[2019-03-02] MEDS: INSULIN SLIDING SCALE (NOVOLOG) 1 VIAL SQ SCH (23:37)
[2019-03-03] MEDS: TAPENTADOL HCL 50 MG TAB.ER.12H PO SCH ×3 (03:16→21:31)
[2019-03-03] MEDS: methylPREDNISolone NA SUCC 40 MG/1 ML VIAL IVPUSH SCH ×3 (03:20→17:05)
[2019-03-03] MEDS: ALBUTEROL SO4 0.083% IH SOL 2.5 MG/3 ML VIAL.NEB. NEB PRN (05:25)
[2019-03-03] MEDS: FUROSEMIDE 40 MG/4 ML INJECTABLE VIAL IVPUSH SCH ×2 (06:41→14:24)
[2019-03-03] MEDS: HEPARIN NA (PORCINE) 5,000 UNITS/ML 1ML VIAL SQ SCH ×3 (06:41→21:31)
[2019-03-03] MEDS: GABAPENTIN 400 MG CAPSULE (FP) PO SCH ×3 (06:43→21:29)
[2019-03-03] MEDS ORDERED: MAG HYDROX/AL HYDROX/SIMETH -MYLANTA- ORAL SUSPENSION PO PRN (07:37)
[2019-03-03] MEDS: INSULIN SLIDING SCALE (NOVOLOG) 1 VIAL SQ SCH ×5 (07:46→22:50)
[2019-03-03] MEDS: PATIENT'S OWN MEDICATION (NON-FORMULARY) (Mesalamine [Pentasa] 500 MG) PO SCH ×2 (07:47→07:48)
[2019-03-03] MEDS: PATIENT'S OWN MEDICATION (NON-FORMULARY) (Insulin Pump Controller [Snap Insulin Pump Contr MC SCH (07:47)
[2019-03-03] MEDS: ARFORMOTEROL TARTRATE 15 MCG/2 ML VIAL NEB SCH (08:02)
[2019-03-03 08:06] LABS: BASO % 0.1 % (0-2.0); HEMATOCRIT 37.9 % (35.4-49); HEMOGLOBIN 12.1 GM/dL (11.7-16.9); MCH 26.5 pg (25.7-33.7); MCHC 31.9 g/dl (32.0-35.9); MEAN CELL VOLUME 83.1 fl (80-96); MEAN PLT VOLUME 7.3 fl (7.5-11.1); MONO % 3.4 % (3.8-10.2); NEUT % 83.5 % (42.8-82.8); PLATELET COUNT 315 K/MM3 (134-434); RBC 4.57 M/mm3 (4.00-5.60); RDW 16.9 % (11.9-15.9); WHITE BLOOD COUNT 13.3 K/mm3 (4.0-10.0)
[2019-03-03] MEDS ORDERED: PT OWN MED DRAWER 7, Y5N ONE (08:49)
[2019-03-03 08:51] LABS: ALBUMIN 3.5 g/dl (3.4-5.0); BILIRUBIN,TOTAL 0.4 mg/dL (0.2-1); BLOOD UREA NITROGEN 50.8 mg/dL (7-18); CREATININE 2.1 mg/dL (0.55-1.3); POTASSIUM 4.6 mmol/L (3.5-5.1); TOT PROT 6.9 g/dl (6.4-8.2)
[2019-03-03] MEDS ORDERED: RAMIPRIL 5 MG CAPSULE (FP) PO SCH (10:00)
[2019-03-03] MEDS ORDERED: MOMETASONE FUROATE 220 MCG/IH INHALER IH SCH (10:00)
[2019-03-03] MEDS: CLOPIDOGREL BISULFATE 75 MG TABLET (FP) PO SCH (11:29)
[2019-03-03] MEDS: PANTOPRAZOLE 20 MG TABLET (FP) PO SCH (11:30)
[2019-03-03] MEDS: TAMSULOSIN HCL 0.4 MG CAP PO SCH (11:32)
[2019-03-03] MEDS: ASPIRIN COATED 81 MG TABLET.EC PO SCH (11:33)
[2019-03-03] MEDS: amLODIPine BESYLATE 10 MG TABLET (FP) PO SCH (11:33)
[2019-03-03] MEDS: LIPASE/PROTEASE/AMYLASE 36,000 UNIT CAPSULE PO SCH ×3 (11:34→17:03)
[2019-03-03] MEDS: CHLORTHALIDONE 25 MG TABLET PO SCH (11:35)
[2019-03-03] MEDS: SENNOSIDES/DOCUSATE COMBO (SENNA PLUS) TABLET (UD) PO SCH (11:36)
[2019-03-03] MEDS: FINASTERIDE 5 MG TABLET (FP) PO SCH (11:37)
[2019-03-03] MEDS: TIOTROPIUM BROMIDE 2.5 MCG (SPIRIVA) RESPIMAT INHALER IH SCH (11:39)
[2019-03-03] MEDS: BUDESONIDE/FORMETEROL FUMARATE 160/4.5 mcg INHALER IH SCH ×2 (11:39→22:50)
--- NOTE | 2019-03-03 11:44 | EKG ---
Test Reason : Blood Pressure : / mmHG Vent. Rate : 110 BPM Atrial Rate : 110 BPM P-R Int : 158 ms QRS Dur : 086 ms QT Int : 334 ms P-R-T Axes : 038 014 048 degrees QTc Int : 452 ms SINUS TACHYCARDIA NONSPECIFIC T WAVE ABNORMALITY ABNORMAL ECG WHEN COMPARED WITH ECG OF 01-MAR-2019 18:22, NO SIGNIFICANT CHANGE WAS FOUND Confirmed by PAULA HYLTON MD ([id number]) on 03/03/2019 11:44:20 AM Referred By: Confirmed By:PAULA HYLTON MD
[2019-03-03] MEDS: POLYETHYLENE GLYCOL 3350 119 GM BTL PO SCH ×2 (12:00→22:45)
--- NOTE | 2019-03-03 14:10 | CONSULT ---
Consult - text type - Consultation Consultation Note: Renal consult for LOVE This is a 63 year old gentleman with history of hypertension, DM, hyperlipidemia, GRACIE s/p trach, CAD s/p CABG, CHF with diastolic dysfunction who presented with worsening SOB and admitted for CHF + COPD exacerbation with Cr of 2. Pt baseline Cr 1.4 to 1.6. Cr was 1.2 earlier this month. PMhx: as above Allergeis: NKDA Family Hx: NC Social Hx: No T/A/D ROS: as per HPI Home Medications Medication Instructions Recorded Albuterol Sulfate Inhaler - 1 - 2 inh PO Q4H PRN 08/18/17 [Ventolin HFA Inhaler -] Arformoterol Tartrate [Brovana] 15 mcg IH ASDIR 08/18/17 Aspirin [Aspirin EC] 81 mg PO DAILY 08/18/17 Clopidogrel Bisulfate [Plavix] 75 mg PO DAILY 08/18/17 Dexlansoprazole [Dexilant] 30 mg PO DAILY 08/18/17 Ezetimibe [Zetia -] 10 mg PO HS 08/18/17 Furosemide [Lasix] 40 mg PO DAILY 08/18/17 Insulin Pump Controller [Snap 1 each MC ASDIR 08/18/17 Insulin Pump Controller] Montelukast Sodium [Singulair] 10 mg PO DAILY 08/18/17 Tiotropium [place] [Spiriva] 1 puff IH DAILY 08/18/17 Finasteride [Proscar -] 5 mg PO DAILY tablet 09/20/17 Lipase/Protease/Amylase [Creon Dr 1 cap PO TIDCM capsule. 09/20/17 36,000 Units Capsule] Ramipril [Altace] 10 mg PO DAILY capsule 09/20/17 Tamsulosin HCl [Flomax -] 0.4 mg PO DAILY@0830 cap.er.24h 09/20/17 Amitriptyline HCl [Elavil -] 75 mg PO DAILY 03/30/18 Gabapentin 800 mg PO TID 03/30/18 Albuterol 0.083% Nebulizer Elena 1 amp NEB Q8H PRN #30 amp 07/26/18 [Ventolin 0.083% Nebulizer Soln -] Mometasone Furoate [Asmanex 220Mcg 2 puff IH BID #2 inhaler 07/26/18 -] Mag Hydrox/Al Hydrox/Simeth 30 ml PO Q6H PRN #1 bottle 09/27/18 [MAALOX *SUSPENSION* -] Polyethylene Glycol 3350 [Miralax 17 gm PO BID #1 bottle 09/27/18 119 gm Btl -] Sennosides/Docusate Sodium [Senna 1 each PO DAILY #20 tablet 09/27/18 Laxative Tablet] Chlorthalidone [Hygroton -] 25 mg PO DAILY #60 tablet 10/14/18 Rosuvastatin [Crestor -] 20 mg PO HS #30 tablet 10/14/18 Amlodipine Besylate [Norvasc -] 10 mg PO DAILY 03/01/19 Arformoterol Tartrate [Brovana] 15 mcg IH DAILY 03/01/19 Budesonide/Formeterol Fumarate 1 inh PO BID 03/01/19 [SYMBICORT 160/4.5mcg -] Diazepam 5 mg PO PRN 03/01/19 HYDROmorphone [Dilaudid -] 4 mg PO Q4H 03/01/19 Lipase/Protease/Amylase [Creon Dr 1 each PO TID 03/01/19 36,000 Units Capsule] Mesalamine [Pentasa] 500 mg PO TID 03/01/19 Ondansetron [Zofran -] 4 mg PO TID 03/01/19 Oxycodone HCl/Acetaminophen 1 each PO BID 03/01/19 [Oxycodone-Acetaminophen 10-325] Prednisone 60 mg PO DAILY 03/01/19 Tapentadol ER [Nucynta *ER*] 150 mg PO BID 03/01/19 Vital Signs Temperature 97.9 F 03/03/19 09:11 Pulse Rate 114 H 03/03/19 09:11 Respiratory Rate 20 03/03/19 09:11 Blood Pressure 113/79 03/03/19 09:11 O2 Sat by Pulse Oximetry (%) 97 03/03/19 09:00 Intake & Output 02/28/19 03/01/19 03/02/19 03/03/19 23:59 23:59 23:59 23:59 Intake Total 260 Balance 260 Weight 136.078 kg 134.717 kg CBC, BMP 03/03/19 06:25 03/03/19 06:25 Current Medications Al Hydroxide/Mg Hydroxide (Mylanta Suspension -) 30 ml PO Q6H PRN PRN Reason: DYSPEPSIA Albuterol Sulfate (Ventolin 0.083% Nebulizer Soln -) 1 amp NEB Q4H PRN PRN Reason: WHEEZING Last Admin: 03/03/19 05:25 Dose: 1 amp Amitriptyline HCl (Elavil -) 75 mg PO HS [facility] Amlodipine Besylate (Norvasc -) 10 mg PO DAILY [facility] Last Admin: 03/03/19 11:33 Dose: 10 mg Aspirin (Ecotrin -) 81 mg PO DAILY [facility] Last Admin: 03/03/19 11:33 Dose: 81 mg Budesonide/Formoterol Fumarate (Symbicort 160/4.5mcg -) 1 puff IH BID [facility] Last Admin: 03/03/19 11:39 Dose: Not Given Chlorthalidone (Hygroton -) 25 mg PO DAILY [facility] Last Admin: 03/03/19 11:35 Dose: 25 mg Clopidogrel Bisulfate (Plavix -) 75 mg PO DAILY [facility] Last Admin: 03/03/19 11:29 Dose: 75 mg Ezetimibe (Zetia -) 10 mg PO [facility] Finasteride (Proscar -) 5 mg PO DAILY [facility] Last Admin: 03/03/19 11:37 Dose: 5 mg Furosemide (Lasix Injection -) 40 mg IVPUSH BID@0600,1400 [facility] Last Admin: 03/03/19 06:41 Dose: 40 mg Gabapentin (Neurontin -) 800 mg PO TID [facility] Heparin Sodium (Porcine) (Heparin -) 5,000 unit SQ TID [facility] Last Admin: 03/03/19 06:41 Dose: 5,000 unit Insulin Aspart (Novolog Vial Sliding Scale -) 1 vial SQ [facility]; Protocol Last Admin: 03/03/19 11:50 Dose: Not Given Methylprednisolone Sodium Succinate (Solu-Medrol -) 40 mg IVPUSH Q8H-IV [facility] Last Admin: 03/03/19 09:05 Dose: 40 mg Montelukast Sodium (Singulair -) 10 mg PO [facility] Non-Formulary Medication (Insulin Pump Controller [Snap Insulin Pump Controller] ) 1 each MC ASDIR [facility] Non-Formulary Medication (Mesalamine [Pentasa]) 500 mg PO TID [facility] Oxycodone/Acetaminophen (Percocet 5/325 -) 2 combo PO BID [facility] Last Admin: 03/03/19 09:06 Dose: 2 combo Pancrelipase (Stacy Hackett 36,000 Units Capsule) 1 cap PO TIDCM [facility] Last Admin: 03/03/19 12:14 Dose: Not Given Pantoprazole Sodium (Protonix -) 20 mg PO DAILY [facility] Last Admin: 03/03/19 11:30 Dose: 20 mg Polyethylene Glycol (Miralax (For Daily Use) -) 17 gm PO BID [facility] Ramipril (Altace -) 20 mg PO DAILY [facility] Last Admin: 03/03/19 09:07 Dose: 20 mg Rosuvastatin Calcium (Crestor -) 20 mg PO HS [facility] Senna/Docusate Sodium (Pericolace -) 1 tablet PO DAILY [facility] Last Admin: 03/03/19 11:36 Dose: 1 tablet Tamsulosin HCl (Flomax -) 0.4 mg PO DAILY@0830 [facility] Last Admin: 03/03/19 11:32 Dose: 0.4 mg Tapentadol (Nucynta Er -) 150 mg PO BID [facility] Last Admin: 03/03/19 11:30 Dose: 150 mg Tiotropium [place] (Spiriva Respimat) 2 puff IH DAILY [facility] Last Admin: 03/03/19 11:39 Dose: Not Given 63 year old gentleman with history of hypertension, DM, hyperlipidemia, GRACIE s/ p trach, CAD s/p CABG, CHF with diastolic dysfunction who presented with worsening SOB and admitted for CHF + COPD exacerbation with Cr of 2. 1. Acute kidney injury secondary renal hypoprofusion in setting of cardic dysfunction vs. intravascular volume depletion vs. ATN vs. AIN vs. outflow obstruction 2. CHF with diastolic dysfunction 3. COPD 4. Chronic GRACIE 5. CAD s/p CABG 6. DM 7. Hyperlipidemia CHeck urine studies for FeUrea, UPCR, Urine eosinophils Check Kidney and bladder US r/o obstruction continue IV Lasix BID hold ACEi for now given acute change in renal function trend daily weights, BUN/Cr and electrolytes BUN may trend up in setting of IV steroids Thank you Az Nelson DO
--- NOTE | 2019-03-03 14:41 | PN ---
Progress Note, Physician History of Present Illness: pulmonary alert,still c/o sob,occ cough. - Current Medication List Current Medications: Active Medications Al Hydroxide/Mg Hydroxide (Mylanta Suspension -) 30 ml PO Q6H PRN PRN Reason: DYSPEPSIA Albuterol Sulfate (Ventolin 0.083% Nebulizer Soln -) 1 amp NEB Q4H PRN PRN Reason: WHEEZING Last Admin: 03/03/19 05:25 Dose: 1 amp Amitriptyline HCl (Elavil -) 75 mg PO HS [facility] Amlodipine Besylate (Norvasc -) 10 mg PO DAILY [facility] Last Admin: 03/03/19 11:33 Dose: 10 mg Aspirin (Ecotrin -) 81 mg PO DAILY [facility] Last Admin: 03/03/19 11:33 Dose: 81 mg Budesonide/Formoterol Fumarate (Symbicort 160/4.5mcg -) 1 puff IH BID [facility] Last Admin: 03/03/19 11:39 Dose: Not Given Chlorthalidone (Hygroton -) 25 mg PO DAILY [facility] Last Admin: 03/03/19 11:35 Dose: 25 mg Clopidogrel Bisulfate (Plavix -) 75 mg PO DAILY [facility] Last Admin: 03/03/19 11:29 Dose: 75 mg Ezetimibe (Zetia -) 10 mg PO [facility] Finasteride (Proscar -) 5 mg PO DAILY [facility] Last Admin: 03/03/19 11:37 Dose: 5 mg Furosemide (Lasix Injection -) 40 mg IVPUSH BID@0600,1400 [facility] Last Admin: 03/03/19 14:24 Dose: 40 mg Gabapentin (Neurontin -) 800 mg PO TID [facility] Last Admin: 03/03/19 14:25 Dose: 800 mg Heparin Sodium (Porcine) (Heparin -) 5,000 unit SQ TID [facility] Last Admin: 03/03/19 14:25 Dose: 5,000 unit Hydromorphone HCl (Dilaudid -) 4 mg PO Q6H PRN PRN Reason: PAIN LEVEL 7 - 10 Insulin Aspart (Novolog Vial Sliding Scale -) 1 vial SQ ACHS [facility]; Protocol Last Admin: 03/03/19 11:50 Dose: Not Given Methylprednisolone Sodium Succinate (Solu-Medrol -) 40 mg IVPUSH Q8H-IV [facility] Last Admin: 03/03/19 09:05 Dose: 40 mg Montelukast Sodium (Singulair -) 10 mg PO HS [facility] Non-Formulary Medication (Insulin Pump Controller [Snap Insulin Pump Controller] ) 1 each MC ASDIR [facility] Non-Formulary Medication (Mesalamine [Pentasa]) 500 mg PO TID [facility] Oxycodone/Acetaminophen (Percocet 5/325 -) 2 combo PO BID [facility] Last Admin: 03/03/19 09:06 Dose: 2 combo Pancrelipase (Creon Dr 36,000 Units Capsule) 1 cap PO TIDCM [facility] Last Admin: 03/03/19 12:14 Dose: Not Given Pantoprazole Sodium (Protonix -) 20 mg PO DAILY [facility] Last Admin: 03/03/19 11:30 Dose: 20 mg Polyethylene Glycol (Miralax (For Daily Use) -) 17 gm PO BID [facility] Rosuvastatin Calcium (Crestor -) 20 mg PO HS [facility] Senna/Docusate Sodium (Pericolace -) 1 tablet PO DAILY [facility] Last Admin: 03/03/19 11:36 Dose: 1 tablet Tamsulosin HCl (Flomax -) 0.4 mg PO DAILY@0830 [facility] Last Admin: 03/03/19 11:32 Dose: 0.4 mg Tapentadol (Nucynta Er -) 150 mg PO BID [facility] Last Admin: 03/03/19 11:30 Dose: 150 mg Tiotropium [place] (Spiriva Respimat) 2 puff IH DAILY [facility] Last Admin: 03/03/19 11:39 Dose: Not Given - Objective Vital Signs: Vital Signs Temperature 97.9 F 03/03/19 09:11 Pulse Rate 114 H 03/03/19 09:11 Respiratory Rate 20 03/03/19 09:11 Blood Pressure 113/79 03/03/19 09:11 O2 Sat by Pulse Oximetry (%) 97 03/03/19 09:00 Constitutional: Yes: Well Nourished, Calm, Obese Eyes: Yes: WNL HENT: Yes: WNL Neck: Yes: Supple (trach) Cardiovascular: Yes: Regular Rate and Rhythm, S1, S2 Respiratory: Yes: Wheezes (few wheezes) Gastrointestinal: Yes: Normal Bowel Sounds, Soft Extremities: Yes: WNL Edema: Yes Labs: CBC, BMP 03/03/19 06:25 03/03/19 06:25 Problem List - Problems (1) BMI 39.0-39.9,adult Code(s): Z68.39 - BODY MASS INDEX (BMI) 39.0-39.9, ADULT (2) Leg edema Code(s): R60.0 - LOCALIZED EDEMA (3) SOB (shortness of breath) Code(s): R06.02 - SHORTNESS OF BREATH (4) HTN (hypertension) Code(s): I10 - ESSENTIAL (PRIMARY) HYPERTENSION (5) Hx of heart artery stent Code(s): Z95.5 - PRESENCE OF CORONARY ANGIOPLASTY IMPLANT AND GRAFT (6) ASHD (arteriosclerotic heart disease) Code(s): I25.10 - ATHSCL HEART DISEASE OF [place] CORONARY ARTERY W/O ANG PCTRS (7) COPD (chronic obstructive pulmonary disease) Code(s): J44.9 - CHRONIC OBSTRUCTIVE PULMONARY DISEASE, UNSPECIFIED (8) Diabetes mellitus Code(s): E11.9 - TYPE 2 DIABETES MELLITUS WITHOUT COMPLICATIONS Qualifiers: Diabetes mellitus type: type 2 (9) GRACIE (obstructive sleep apnea) Code(s): G47.33 - OBSTRUCTIVE SLEEP APNEA (ADULT) (PEDIATRIC) (10) Tracheostomy in place Code(s): Z98.89 - OTHER SPECIFIED POSTPROCEDURAL STATES * DO NOT USE * Assessment/Plan Problem List - Problems (1) COPD exacerbation Code(s): J44.1 - CHRONIC OBSTRUCTIVE PULMONARY DISEASE W (ACUTE) EXACERBATION Assessment/Plan Acute COPD Exacerbation Acute on Chronic Diastolic Heart Failure Chronic Hypoxic Respiratory Failure Obstructive Sleep Apnea s/p Tracheostomy CAD s/p CABG HTN DM Hyperlipidemia Spinal Stenosis Chronic Pain Syndrome Opiate Dependence - IV medrol same dose - inhaled bronchodilators standing and PRN - O2 to keep Spo2 >90% - azithromycin - IV lasix - monitor urine output, creatinine - uncap tracheostomy when sleeping - dilaudid 4mg for breakthrough pain - DVT prophylaxis DR VANESSA
--- NOTE | 2019-03-03 14:41 | PN ---
Progress Note, Physician Chief Complaint: COPD Exacerbation Intractable lower back pain CHF History of Present Illness: Previous notes and events reviewed awake and alert NAD SOB with exertion productive cough with yellow/green complain of lower back pain - Current Medication List Current Medications: Active Medications Al Hydroxide/Mg Hydroxide (Mylanta Suspension -) 30 ml PO Q6H PRN PRN Reason: DYSPEPSIA Albuterol Sulfate (Ventolin 0.083% Nebulizer Soln -) 1 amp NEB Q4H PRN PRN Reason: WHEEZING Last Admin: 03/03/19 05:25 Dose: 1 amp Amitriptyline HCl (Elavil -) 75 mg PO [facility] Amlodipine Besylate (Norvasc -) 10 mg PO DAILY [facility] Last Admin: 03/03/19 11:33 Dose: 10 mg Aspirin (Ecotrin -) 81 mg PO DAILY [facility] Last Admin: 03/03/19 11:33 Dose: 81 mg Budesonide/Formoterol Fumarate (Symbicort 160/4.5mcg -) 1 puff IH BID [facility] Last Admin: 03/03/19 11:39 Dose: Not Given Chlorthalidone (Hygroton -) 25 mg PO DAILY [facility] Last Admin: 03/03/19 11:35 Dose: 25 mg Clopidogrel Bisulfate (Plavix -) 75 mg PO DAILY [facility] Last Admin: 03/03/19 11:29 Dose: 75 mg Ezetimibe (Zetia -) 10 mg PO [facility] Finasteride (Proscar -) 5 mg PO DAILY [facility] Last Admin: 03/03/19 11:37 Dose: 5 mg Furosemide (Lasix Injection -) 40 mg IVPUSH BID@0600,1400 [facility] Last Admin: 03/03/19 14:24 Dose: 40 mg Gabapentin (Neurontin -) 800 mg PO TID [facility] Last Admin: 03/03/19 14:25 Dose: 800 mg Heparin Sodium (Porcine) (Heparin -) 5,000 unit SQ TID [facility] Last Admin: 03/03/19 14:25 Dose: 5,000 unit Hydromorphone HCl (Dilaudid -) 4 mg PO Q6H PRN PRN Reason: PAIN LEVEL 7 - 10 Insulin Aspart (Novolog Vial Sliding Scale -) 1 vial SQ ACHS [facility]; Protocol Last Admin: 03/03/19 11:50 Dose: Not Given Methylprednisolone Sodium Succinate (Solu-Medrol -) 40 mg IVPUSH Q8H-IV [facility] Last Admin: 03/03/19 09:05 Dose: 40 mg Montelukast Sodium (Singulair -) 10 mg PO HS [facility] Non-Formulary Medication (Insulin Pump Controller [Snap Insulin Pump Controller] ) 1 each MC ASDIR [facility] Non-Formulary Medication (Mesalamine [Pentasa]) 500 mg PO TID [facility] Oxycodone/Acetaminophen (Percocet 5/325 -) 2 combo PO BID [facility] Last Admin: 03/03/19 09:06 Dose: 2 combo Pancrelipase (Creon Dr 36,000 Units Capsule) 1 cap PO TIDCM [facility] Last Admin: 03/03/19 12:14 Dose: Not Given Pantoprazole Sodium (Protonix -) 20 mg PO DAILY [facility] Last Admin: 03/03/19 11:30 Dose: 20 mg Polyethylene Glycol (Miralax (For Daily Use) -) 17 gm PO BID [facility] Rosuvastatin Calcium (Crestor -) 20 mg PO [facility] Senna/Docusate Sodium (Pericolace -) 1 tablet PO DAILY [facility] Last Admin: 03/03/19 11:36 Dose: 1 tablet Tamsulosin HCl (Flomax -) 0.4 mg PO DAILY@0830 [facility] Last Admin: 03/03/19 11:32 Dose: 0.4 mg Tapentadol (Nucynta Er -) 150 mg PO BID [facility] Last Admin: 03/03/19 11:30 Dose: 150 mg Tiotropium [place] (Spiriva Respimat) 2 puff IH DAILY [facility] Last Admin: 03/03/19 11:39 Dose: Not Given - Objective Vital Signs: Vital Signs Temperature 97.9 F 03/03/19 09:11 Pulse Rate 114 H 03/03/19 09:11 Respiratory Rate 20 03/03/19 09:11 Blood Pressure 113/79 03/03/19 09:11 O2 Sat by Pulse Oximetry (%) 97 03/03/19 09:00 Constitutional: Yes: No Distress, Calm Eyes: Yes: Conjunctiva Clear HENT: Yes: Atraumatic Cardiovascular: Yes: Regular Rate and Rhythm Respiratory: Yes: Regular, On Nasal O2, Wheezes Gastrointestinal: Yes: Normal Bowel Sounds, Soft, Tenderness (diffuse) Musculoskeletal: Yes: Muscle Weakness Extremities: Yes: WNL Edema: Yes Edema: LLE: 1+, RLE: 2+ Neurological: Yes: Alert, Oriented Psychiatric: Yes: Alert, Oriented Labs: CBC, BMP 03/03/19 06:25 03/03/19 06:25
[2019-03-03 15:55] LABS: EPI CELLS 0.6 /HPF (0-5/HPF); HYALINE CASTS 8 /lpf (0-8); URINE APPEARANCE CLEAR; URINE BACTERIA 0.8 /hpf (NEGATIVE); URINE BILIRUBIN NEGATIVE (NEGATIVE); URINE COLOR YELLOW; URINE GLUCOSE (UA) NEGATIVE (NEGATIVE); URINE KETONE NEGATIVE (NEGATIVE); URINE LEUK ESTERASE NEGATIVE (NEGATIVE); URINE NITRITE NEGATIVE (NEGATIVE); URINE PROTEIN 2+ (NEGATIVE); URINE RBC 2 /hpf (0-4); URINE UROBILINOGEN 0.2 mg/dL (0.2-1.0); URINE WBC 1 /hpf (0-5)
[2019-03-03 17:25] LABS: RATIO URIN PROTEIN/URIN CREAT 0.87 MG/DL
--- NOTE | 2019-03-03 17:51 | CONSULT ---
Consult Consult Specialty:: endocrine Referred by:: dr.iyad sanches Reason for Consultation:: diabetes mellitus uncontrolled - History of Present Illness Chief Complaint: back pain severe and unrelenting History of Present Illness: 63 y/o man with a significant medical history of DM on medtronic insulin pump, COPD, Bronchial Asthma, Tracheostomy in place (unplugs when sleeping for GRACIE), CAD s/p CABG, FL s/p Stents x6 (most recent 2015), HTN, HLD, Chronic Pancreatitis, SBO, Incarcerated Hernia repair x2 (September 2017), Chronic Back Pain , Anxiety. Who presents with worsening shortness of breath cough,sputum production,has required iv steroids,and nebulizer treatment,has labile dm,blood sugars over 300mg/dl while on prednisone,denies nausea or vomiting,his back pain is 9/10 in intensity. 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 Planned EMG/ NCVs studies and evaluation of motor weakness in process by treating neurologist Dr. Singh) Cardio/Vascular: Yes: CAD (Last stents placed x 2 last year per patient), CHF (s /p FL several years ago; s/p stenting. mild CHF in the past.), HTN, Hyperlipdemia, FL, Pulmonary Hypertension Pulmonary: Yes: Asthma, COPD, Sleep Apnea Gastrointestinal: Yes: Constipation, Pancreatitis (? history of chronic pancreatitis with episodes of acute pancreatitis), Other (FECAL INCONTINENCE SECONDARY TO OVERFLOW followed by Dr. Abdoulaye Wu, IPMN, PANCREATITIS . HAD EPISODE OF ISCHEMIC COLITIS LAST ADMISSION) Renal/: Yes: BPH Psych: Yes: Depression Musculoskeletal: Yes: Chronic low back pain (has back stimulator), Other ( CHRONIC NECK PAIN s/p Lumbar and Cervical fusion ) Endocrine: Yes: Diabetes Mellitus (has insulin pump) - Past Surgical History Past Surgical History: Yes: Breast Biopsy, Colonoscopy, Laminectomy, Stent (1 non eluting, 5 eluting) - Alcohol/Substance Use Hx Alcohol Use: No History of Substance Use: reports: None, Prescription (opiates for chronic pain post cervical spine surgery. 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 History of Recent Travel: No Home Medications - Allergies Allergies/Adverse Reactions: Allergies Allergy/AdvReac Type Severity Reaction Status Date / Time shellfish derived Allergy Severe Verified 03/01/19 18:27 Tetracyclines Allergy Severe Verified 03/01/19 18:27 - Home Medications Home Medications: Ambulatory Orders Albuterol Sulfate Inhaler - [Ventolin HFA Inhaler -] 1 - 2 inh PO Q4H PRN Arformoterol Tartrate [Brovana] 15 mcg IH ASDIR 08/18/17 Aspirin [Aspirin EC] 81 mg PO DAILY 08/18/17 Clopidogrel Bisulfate [Plavix] 75 mg PO DAILY 08/18/17 Dexlansoprazole [Dexilant] 30 mg PO DAILY 08/18/17 Ezetimibe [Zetia -] 10 mg PO HS 08/18/17 Furosemide [Lasix] 40 mg PO DAILY 08/18/17 Insulin Pump Controller [Snap Insulin Pump Controller] 1 each MC ASDIR 08/18/17 Montelukast Sodium [Singulair] 10 mg PO DAILY 08/18/17 Tiotropium [place] [Spiriva] 1 puff IH DAILY 08/18/17 Finasteride [Proscar -] 5 mg PO DAILY tablet 09/20/17 Lipase/Protease/Amylase [Stacy Hackett 36,000 Units Capsule] 1 cap PO TIDCM capsule. 09/20/17 Ramipril [Altace] 10 mg PO DAILY capsule 09/20/17 Tamsulosin HCl [Flomax -] 0.4 mg PO DAILY@0830 cap.er.24h 09/20/17 Amitriptyline HCl [Elavil -] 75 mg PO DAILY 03/30/18 Gabapentin 800 mg PO TID 03/30/18 Albuterol 0.083% Nebulizer Elena [Ventolin 0.083% Nebulizer Soln -] 1 amp NEB Q8H PRN #30 amp 07/26/18 Mometasone Furoate [Asmanex 220Mcg -] 2 puff IH BID #2 inhaler 07/26/18 Mag Hydrox/Al Hydrox/Simeth [MAALOX *SUSPENSION* -] 30 ml PO Q6H PRN #1 bottle 09/27/18 Polyethylene Glycol 3350 [Miralax 119 gm Btl -] 17 gm PO BID #1 bottle 09/27/18 Sennosides/Docusate Sodium [Senna Laxative Tablet] 1 each PO DAILY #20 tablet Chlorthalidone [Hygroton -] 25 mg PO DAILY #60 tablet 10/14/18 Rosuvastatin [Crestor -] 20 mg PO HS #30 tablet 10/14/18 Amlodipine Besylate [Norvasc -] 10 mg PO DAILY 03/01/19 Arformoterol Tartrate [Brovana] 15 mcg IH DAILY 03/01/19 Budesonide/Formeterol Fumarate [SYMBICORT 160/4.5mcg -] 1 inh PO BID 03/01/19 Diazepam 5 mg PO PRN 03/01/19 HYDROmorphone [Dilaudid -] 4 mg PO Q4H 03/01/19 Lipase/Protease/Amylase [Stacy Dr 36,000 Units Capsule] 1 each PO TID 03/01/19 Mesalamine [Pentasa] 500 mg PO TID 03/01/19 Ondansetron [Zofran -] 4 mg PO TID 03/01/19 Oxycodone HCl/Acetaminophen [Oxycodone-Acetaminophen 10-325] 1 each PO BID 03/01 Prednisone 60 mg PO DAILY 03/01/19 Tapentadol ER [Nucynta *ER*] 150 mg PO BID 03/01/19 Family Disease History - Family Disease History Family Disease History: Diabetes: Mother ( 58: diabetic complications), CA: Father ( 49: asbestosis), Respiratory: Brother (bronchial asthma, DVT), Other: Mother, Sister (BCA), Son (2, healthy), Daughter (1, healthy) Review of Systems - Review of Systems Constitutional: reports: Weakness Eyes: reports: No Symptoms HENT: reports: No Symptoms Neck: reports: No Symptoms Cardiovascular: reports: Shortness of Breath Respiratory: reports: Cough, Exercise Intolerance, SOB on Exertion Gastrointestinal: reports: Bloating, Constipation Genitourinary: reports: No Symptoms Musculoskeletal: reports: Back Pain, Decreased ROM Neurological: reports: Numbness, Weakness Endocrine: reports: Unexplained Weight Gain Physical Exam Vital Signs: Vital Signs Temperature 97.9 F 03/03/19 09:11 Pulse Rate 114 H 03/03/19 09:11 Respiratory Rate 20 03/03/19 09:11 Blood Pressure 113/79 03/03/19 09:11 O2 Sat by Pulse Oximetry (%) 97 03/03/19 09:00 Constitutional: Yes: Anxious Eyes: Yes: EOM Intact HENT: Yes: Normocephalic Neck: Yes: Trachea Midline Cardiovascular: Yes: Tachycardia Respiratory: Yes: Cough, On Nasal O2, Rhonchi, SOB on Exertion Gastrointestinal: Yes: Abdomen, Obese ...Rectal Exam: Yes: Deferred Musculoskeletal: Yes: Back Pain, Joint Swelling, Muscle Pain, Muscle Weakness Extremities: Yes: WNL Edema: No Neurological: Yes: Alert, Oriented Labs: CBC, BMP 03/03/19 06:25 03/03/19 06:25 Problem List - Problems (1) Type 2 diabetes mellitus with hyperosmolarity without nonketotic hyperglycemic-hyperosmolar coma ([facility]) Code(s): E11.00 - TYPE 2 DIAB W HYPROSM W/O NONKET HYPRGLY-HYPROS COMA ([facility]) (2) BMI 39.0-39.9,adult Code(s): Z68.39 - BODY MASS INDEX (BMI) 39.0-39.9, ADULT (3) Diastolic CHF Code(s): I50.30 - UNSPECIFIED DIASTOLIC (CONGESTIVE) HEART FAILURE (4) Leg edema Code(s): R60.0 - LOCALIZED EDEMA (5) Opiate dependence Code(s): F11.20 - OPIOID DEPENDENCE, UNCOMPLICATED (6) Renal insufficiency Code(s): N28.9 - DISORDER OF KIDNEY AND URETER, UNSPECIFIED (7) SOB (shortness of breath) Code(s): R06.02 - SHORTNESS OF BREATH (8) Abdominal pain in male Code(s): R10.9 - UNSPECIFIED ABDOMINAL PAIN (9) Anxiety Code(s): F41.9 - ANXIETY DISORDER, UNSPECIFIED Assessment/Plan Current Active Problems diabetes mellitus hyperglycemia diabetic neuropaty Anxiety (Acute) BMI 39.0-39.9,adult (Acute) Diastolic CHF (Acute) Leg edema (Acute) Opiate dependence (Acute) Renal insufficiency (Acute) SOB (shortness of breath) (Acute) back pain chronic lumbago Abnormal Lab Results 03/03/19 03/03/19 03/03/19 06:25 06:25 14:45 WBC 13.3 H MCHC 31.9 L RDW 16.9 H MPV 7.3 L Absolute Neuts (auto) 11.1 H Neutrophils % 83.5 H Monocytes % 3.4 L BUN 50.8 H Creatinine 2.1 H Random Glucose 259 H AST 39 H ALT 71 H Cholesterol 283 H Total LDL Cholesterol 136 H HDL Cholesterol 114 H TSH 0.19 L D Urine Protein U Random Total Protein 74.7 H 03/03/19 14:45 WBC MCHC RDW MPV Absolute Neuts (auto) Neutrophils % Monocytes % BUN Creatinine Random Glucose AST ALT Cholesterol Total LDL Cholesterol HDL Cholesterol TSH Urine Protein 2+ H U Random Total Protein Laboratory Results - last 24 hr 03/02/19 03/03/19 03/03/19 20:46 05:05 06:25 WBC 13.3 H RBC 4.57 Hgb 12.1 Hct 37.9 MCV 83.1 MCH 26.5 MCHC 31.9 L RDW 16.9 H Plt Count 315 MPV 7.3 L Absolute Neuts (auto) 11.1 H Neutrophils % 83.5 H Lymphocytes % 13.0 Monocytes % 3.4 L Eosinophils % 0.0 Basophils % 0.1 Nucleated RBC % 0 Sodium Potassium Chloride Carbon Dioxide Anion Gap BUN Creatinine Est GFR (CKD-EPI)AfAm Est GFR (CKD-EPI)NonAf POC Glucometer 171 289 Random Glucose Calcium Total Bilirubin AST ALT Alkaline Phosphatase Total Protein Albumin Triglycerides Cholesterol Total LDL Cholesterol HDL Cholesterol TSH Urine Color Urine Appearance Urine pH Ur Specific [place] Urine Protein Urine Glucose (UA) Urine Ketones Urine Blood Urine Nitrite Urine Bilirubin Urine Urobilinogen Ur Leukocyte Esterase Urine WBC (Auto) Urine RBC (Auto) Urine Casts (Auto) U Epithel Cells (Auto) Urine Bacteria (Auto) Ur Random Creatinine U Random Total Protein Ur Random Urea Nitrogn Urine Creatinine 03/03/19 03/03/19 03/03/19 06:25 11:45 14:45 WBC RBC Hgb Hct MCV MCH MCHC RDW Plt Count MPV Absolute Neuts (auto) Neutrophils % Lymphocytes % Monocytes % Eosinophils % Basophils % Nucleated RBC % Sodium 137 Potassium 4.6 Chloride 100 Carbon Dioxide 27 Anion Gap 10 BUN 50.8 H Creatinine 2.1 H Est GFR (CKD-EPI)AfAm 37.16 Est GFR (CKD-EPI)NonAf 32.07 POC Glucometer 183 Random Glucose 259 H Calcium 9.0 Total Bilirubin 0.4 AST 39 H ALT 71 H Alkaline Phosphatase 95 Total Protein 6.9 Albumin 3.5 Triglycerides 104 Cholesterol 283 H Total LDL Cholesterol 136 H HDL Cholesterol 114 H TSH 0.19 L D Urine Color Urine Appearance Urine pH Ur Specific [place] Urine Protein Urine Glucose (UA) Urine Ketones Urine Blood Urine Nitrite Urine Bilirubin Urine Urobilinogen Ur Leukocyte Esterase Urine WBC (Auto) Urine RBC (Auto) Urine Casts (Auto) U Epithel Cells (Auto) Urine Bacteria (Auto) Ur Random Creatinine 85.0 U Random Total Protein 74.7 H Ur Random Urea Nitrogn 626 Urine Creatinine 85.0 03/03/19 03/03/19 14:45 16:35 WBC RBC Hgb Hct MCV MCH MCHC RDW Plt Count MPV Absolute Neuts (auto) Neutrophils % Lymphocytes % Monocytes % Eosinophils % Basophils % Nucleated RBC % Sodium Potassium Chloride Carbon Dioxide Anion Gap BUN Creatinine Est GFR (CKD-EPI)AfAm Est GFR (CKD-EPI)NonAf POC Glucometer 172 Random Glucose Calcium Total Bilirubin AST ALT Alkaline Phosphatase Total Protein Albumin Triglycerides Cholesterol Total LDL Cholesterol HDL Cholesterol TSH Urine Color Yellow Urine Appearance Clear Urine pH 5.0 Ur Specific [place] 1.016 Urine Protein 2+ H Urine Glucose (UA) Negative Urine Ketones Negative Urine Blood Trace Urine Nitrite Negative Urine Bilirubin Negative Urine Urobilinogen 0.2 Ur Leukocyte Esterase Negative Urine WBC (Auto) 1 Urine RBC (Auto) 2 Urine Casts (Auto) 8 U Epithel Cells (Auto) 0.6 Urine Bacteria (Auto) 0.8 Ur Random Creatinine U Random Total Protein Ur Random Urea Nitrogn Urine Creatinine plan: bgm achs novolog scale insulin pump use pain control pt long history of dependence not drug seeking consult pain control
[2019-03-03] MEDS: ROSUVASTATIN CA 20 MG TABLET (FP) PO SCH (21:30)
[2019-03-03] MEDS: AMITRIPTYLINE HCL 75 MG TABLET PO SCH (21:31)
[2019-03-03] MEDS: MONTELUKAST NA 10 MG TABLET PO SCH (21:32)
[2019-03-03] MEDS: EZETIMIBE 10 MG TABLET (FP) PO SCH (21:33)
[2019-03-04] MEDS: methylPREDNISolone NA SUCC 40 MG/1 ML VIAL IVPUSH SCH ×3 (01:53→18:06)
[2019-03-04] MEDS: HEPARIN NA (PORCINE) 5,000 UNITS/ML 1ML VIAL SQ SCH ×3 (06:18→23:15)
[2019-03-04] MEDS: FUROSEMIDE 40 MG/4 ML INJECTABLE VIAL IVPUSH SCH (06:18)
[2019-03-04] MEDS: GABAPENTIN 400 MG CAPSULE (FP) PO SCH ×3 (06:18→23:15)
[2019-03-04] MEDS: HYDROmorphone HCl 2 MG/ML VIAL IM PRN ×2 (06:19→14:06)
[2019-03-04] MEDS: INSULIN SLIDING SCALE (NOVOLOG) 1 VIAL SQ SCH ×4 (06:19→23:24)
[2019-03-04] MEDS: ALBUTEROL SO4 0.083% IH SOL 2.5 MG/3 ML VIAL.NEB. NEB PRN ×2 (07:23→11:05)
[2019-03-04 08:04] LABS: BASO % 0.2 % (0-2.0); HEMOGLOBIN 12.3 GM/dL (11.7-16.9); LYMPH % 16.7 % (8-40); MCH 27.2 pg (25.7-33.7); MCHC 33.3 g/dl (32.0-35.9); MEAN CELL VOLUME 81.6 fl (80-96); MEAN PLT VOLUME 7.3 fl (7.5-11.1); MONO % 6.8 % (3.8-10.2); NEUT % 76.3 % (42.8-82.8); PLATELET COUNT 320 K/MM3 (134-434); RBC 4.53 M/mm3 (4.00-5.60); RDW 16.3 % (11.9-15.9); WHITE BLOOD COUNT 13.4 K/mm3 (4.0-10.0)
--- NOTE | 2019-03-04 08:27 | PN ---
Progress Note, Physician Chief Complaint: Pt A&Ox3; sitting up at bedside; no chest pain ; c/o chronic "all over body" pain. History of Present Illness: 63 year old black man with a significant past medical history of CAD s/p AR, stents x6 (most recently 12/2015), CABG, HTN, diastolic CHF, HLD, Chronic Pancreatitis, Chronic Back pain, SBO, Incarcerated Hernia s/p repair x2 (September 2017), H.Pylori, BPH, COPD, Bronchial Asthma, Tracheostomy in place (unplugs when sleeping for GRACIE),and anxiety, who presents with worsening shortness of breath for 2-3 weeks, 1 week of productive cough of yellow phlegm and 2-3 days of chest pain and bilateral leg swelling. He reports his chest pain is L sided pressure like 5-6/10 intermittent radiating to the side and back. He admits to lightheadedness but denies nausea or diaphoresis. He staties that he has taken prednisone 60mg everday for 3 days and doubled his lasix to 80mg a day for 4 days. He reports his symptoms feel like a CHF exacerbation. He took albuterol and breathing treatment prior to arrival. He has no other complaints at bedside. As discussed with his tool worker, Dr. Bola Elaine, today, he has had multiple admissions for chest pain since the last coronary stent; these have been negative for AR. (07/2016 dobutamine stress MIBI at [facility] : small, mild periinfarct inferior wall ischemia; pt may have had a more recent stress MIBI or angiogram as an outpatient). - Current Medication List Current Medications: Active Medications Al Hydroxide/Mg Hydroxide (Mylanta Suspension -) 30 ml PO Q6H PRN PRN Reason: DYSPEPSIA Albuterol Sulfate (Ventolin 0.083% Nebulizer Soln -) 1 amp NEB Q4H PRN PRN Reason: WHEEZING Last Admin: 03/04/19 07:23 Dose: 1 amp Amitriptyline HCl (Elavil -) 75 mg PO HS [facility] Last Admin: 03/03/19 21:31 Dose: 75 mg Amlodipine Besylate (Norvasc -) 10 mg PO DAILY [facility] Last Admin: 03/03/19 11:33 Dose: 10 mg Aspirin (Ecotrin -) 81 mg PO DAILY [facility] Last Admin: 03/03/19 11:33 Dose: 81 mg Budesonide/Formoterol Fumarate (Symbicort 160/4.5mcg -) 1 puff IH BID [facility] Last Admin: 03/03/19 22:50 Dose: 1 puff Chlorthalidone (Hygroton -) 25 mg PO DAILY [facility] Last Admin: 03/03/19 11:35 Dose: 25 mg Clopidogrel Bisulfate (Plavix -) 75 mg PO DAILY [facility] Last Admin: 03/03/19 11:29 Dose: 75 mg Ezetimibe (Zetia -) 10 mg PO HS [facility] Last Admin: 03/03/19 21:33 Dose: 10 mg Finasteride (Proscar -) 5 mg PO DAILY [facility] Last Admin: 03/03/19 11:37 Dose: 5 mg Gabapentin (Neurontin -) 800 mg PO TID [facility] Last Admin: 03/04/19 06:18 Dose: 800 mg Heparin Sodium (Porcine) (Heparin -) 5,000 unit SQ TID [facility] Last Admin: 03/04/19 06:18 Dose: 5,000 unit Hydromorphone HCl (Dilaudid -) 4 mg PO Q6H PRN PRN Reason: PAIN LEVEL 7 - 10 Last Admin: 03/03/19 16:14 Dose: 4 mg Hydromorphone HCl (Dilaudid Vial -) 2 mg IM Q6H PRN PRN Reason: PAIN LEVEL 7 - 10 Stop: 03/04/19 17:56 Last Admin: 03/04/19 06:19 Dose: 2 mg Insulin Aspart (Novolog Vial Sliding Scale -) 1 vial SQ [facility]; Protocol Last Admin: 03/04/19 06:19 Dose: Not Given Methylprednisolone Sodium Succinate (Solu-Medrol -) 40 mg IVPUSH Q8H-IV [facility] Last Admin: 03/04/19 01:53 Dose: 40 mg Montelukast Sodium (Singulair -) 10 mg PO [facility] Last Admin: 03/03/19 21:32 Dose: 10 mg Non-Formulary Medication (Insulin Pump Controller [Snap Insulin Pump Controller] ) 1 each MC ASDIR [facility] Non-Formulary Medication (Mesalamine [Pentasa]) 500 mg PO TID [facility] Oxycodone/Acetaminophen (Percocet 5/325 -) 2 combo PO BID [facility] Last Admin: 08/23/19 21:31 Dose: 2 combo Pancrelipase (Creon Dr 36,000 Units Capsule) 1 cap PO TIDCM [facility] Last Admin: 03/03/19 17:03 Dose: 1 cap Pantoprazole Sodium (Protonix -) 20 mg PO DAILY [facility] Last Admin: 03/03/19 11:30 Dose: 20 mg Polyethylene Glycol (Miralax (For Daily Use) -) 17 gm PO BID [facility] Last Admin: 03/03/19 22:45 Dose: 17 gm Rosuvastatin Calcium (Crestor -) 20 mg PO HS [facility] Last Admin: 03/03/19 21:30 Dose: 20 mg Senna/Docusate Sodium (Pericolace -) 1 tablet PO DAILY [facility] Last Admin: 03/03/19 11:36 Dose: 1 tablet Tamsulosin HCl (Flomax -) 0.4 mg PO DAILY@0830 [facility] Last Admin: 03/03/19 11:32 Dose: 0.4 mg Tapentadol (Nucynta Er -) 150 mg PO BID [facility] Last Admin: 03/03/19 21:31 Dose: 150 mg Tiotropium [place] (Spiriva Respimat) 2 puff IH DAILY [facility] Last Admin: 03/03/19 11:39 Dose: Not Given - Objective Vital Signs: Vital Signs Temperature 97.9 F 03/03/19 09:11 Pulse Rate 90 03/04/19 05:00 Respiratory Rate 20 03/03/19 20:42 Blood Pressure 160/96 03/04/19 05:00 O2 Sat by Pulse Oximetry (%) 97 03/03/19 20:42 Constitutional: Yes: Anxious, Obese Eyes: Yes: WNL HENT: Yes: WNL Neck: Yes: WNL Cardiovascular: Yes: S1, S2, S4 Respiratory: Yes: Regular Gastrointestinal: Yes: Soft, Abdomen, Obese ...Rectal Exam: Yes: Deferred Genitourinary: Yes: Anuria Breast(s): Yes: WNL Musculoskeletal: Yes: Back Pain, Muscle Weakness Extremities: Yes: Cool Edema: Yes Edema: LLE: Trace, RLE: Trace Peripheral Pulses WNL: Yes Integumentary: Yes: WNL Neurological: Yes: Alert, Oriented, Weakness Psychiatric: Yes: Other (opiate dependence) Problem List - Problems (1) BMI 39.0-39.9,adult Code(s): Z68.39 - BODY MASS INDEX (BMI) 39.0-39.9, ADULT (2) Leg edema Code(s): R60.0 - LOCALIZED EDEMA (3) Diastolic CHF Assessment/Plan: Pt SOB, but no JVD or acute CXR changes. BNP 192 (was as high as 1,507 last year). Increasing BUN/Cr. Plan: decrease, and eventually stop, furosemide. On bronchodilators, steroids,montelukast, and antibiotics per porter luggage for exacerbation of COPD, ?PNA. Code(s): I50.30 - UNSPECIFIED DIASTOLIC (CONGESTIVE) HEART FAILURE (4) Anxiety Code(s): F41.9 - ANXIETY DISORDER, UNSPECIFIED (5) Opiate dependence Assessment/Plan: Will require long-term help, ideally, for pain management, psychological counseling, and gradual weaning from opiates. Code(s): F11.20 - OPIOID DEPENDENCE, UNCOMPLICATED (6) Renal insufficiency Assessment/Plan: avoid overzealous diuresis. F/u BUN/Cr (Cr 1.1 on 07/2018; on this admission, it was initially 1.3; now 2.1) ), Is and Os, daily weight electrolytes (on chlorthalidone, furosemide, ACEI) Not in acute CHF. Recommend: Stop furosemide. Code(s): N28.9 - DISORDER OF KIDNEY AND URETER, UNSPECIFIED (7) HTN (hypertension) Code(s): I10 - ESSENTIAL (PRIMARY) HYPERTENSION (8) Hyperlipidemia Code(s): E78.5 - HYPERLIPIDEMIA, UNSPECIFIED (9) Hx of heart artery stent Code(s): Z95.5 - PRESENCE OF CORONARY ANGIOPLASTY IMPLANT AND GRAFT (10) COPD exacerbation Code(s): J44.1 - CHRONIC OBSTRUCTIVE PULMONARY DISEASE W (ACUTE) EXACERBATION (11) Atypical chest pain Code(s): R07.89 - OTHER CHEST PAIN
[2019-03-04] MEDS: TAMSULOSIN HCL 0.4 MG CAP PO SCH (08:41)
[2019-03-04] MEDS: LIPASE/PROTEASE/AMYLASE 36,000 UNIT CAPSULE PO SCH ×3 (08:42→18:07)
[2019-03-04 08:46] LABS: ALBUMIN 3.6 g/dl (3.4-5.0); BILIRUBIN,TOTAL 0.5 mg/dL (0.2-1); BLOOD UREA NITROGEN 62.3 mg/dL (7-18); CALCIUM 9.1 mg/dL (8.5-10.1); MAGNESIUM 3.2 mg/dL (1.8-2.4); PHOSPHOROUS 4.8 mg/dL (2.5-4.9); POTASSIUM 4.2 mmol/L (3.5-5.1); TOT PROT 7.2 g/dl (6.4-8.2)
[2019-03-04] MEDS: FINASTERIDE 5 MG TABLET (FP) PO SCH (10:02)
[2019-03-04] MEDS: amLODIPine BESYLATE 10 MG TABLET (FP) PO SCH (10:02)
[2019-03-04] MEDS: TAPENTADOL HCL 50 MG TAB.ER.12H PO SCH ×2 (10:03→23:14)
[2019-03-04] MEDS: PANTOPRAZOLE 20 MG TABLET (FP) PO SCH (10:04)
[2019-03-04] MEDS: CLOPIDOGREL BISULFATE 75 MG TABLET (FP) PO SCH (10:04)
[2019-03-04] MEDS: POLYETHYLENE GLYCOL 3350 119 GM BTL PO SCH ×2 (10:06→23:15)
[2019-03-04] MEDS: CHLORTHALIDONE 25 MG TABLET PO SCH (10:06)
[2019-03-04] MEDS: SENNOSIDES/DOCUSATE COMBO (SENNA PLUS) TABLET (UD) PO SCH (10:08)
[2019-03-04] MEDS: ASPIRIN COATED 81 MG TABLET.EC PO SCH (10:08)
[2019-03-04] MEDS: BUDESONIDE/FORMETEROL FUMARATE 160/4.5 mcg INHALER IH SCH ×2 (10:09→23:15)
[2019-03-04] MEDS: TIOTROPIUM BROMIDE 2.5 MCG (SPIRIVA) RESPIMAT INHALER IH SCH (10:10)
--- NOTE | 2019-03-04 11:13 | PN ---
Progress Note, Physician History of Present Illness: pulmonary alert,feeling better,less dyspneic - Current Medication List Current Medications: Active Medications Al Hydroxide/Mg Hydroxide (Mylanta Suspension -) 30 ml PO Q6H PRN PRN Reason: DYSPEPSIA Albuterol Sulfate (Ventolin 0.083% Nebulizer Soln -) 1 amp NEB Q4H PRN PRN Reason: WHEEZING Last Admin: 03/04/19 11:05 Dose: 1 amp Amitriptyline HCl (Elavil -) 75 mg PO [facility] Last Admin: 03/03/19 21:31 Dose: 75 mg Amlodipine Besylate (Norvasc -) 10 mg PO DAILY [facility] Last Admin: 03/04/19 10:02 Dose: 10 mg Aspirin (Ecotrin -) 81 mg PO DAILY [facility] Last Admin: 03/04/19 10:08 Dose: 81 mg Budesonide/Formoterol Fumarate (Symbicort 160/4.5mcg -) 1 puff IH BID [facility] Last Admin: 03/04/19 10:09 Dose: 1 puff Chlorthalidone (Hygroton -) 25 mg PO DAILY [facility] Last Admin: 03/04/19 10:06 Dose: 25 mg Clopidogrel Bisulfate (Plavix -) 75 mg PO DAILY [facility] Last Admin: 03/04/19 10:04 Dose: 75 mg Ezetimibe (Zetia -) 10 mg PO [facility] Last Admin: 03/03/19 21:33 Dose: 10 mg Finasteride (Proscar -) 5 mg PO DAILY [facility] Last Admin: 03/04/19 10:02 Dose: 5 mg Gabapentin (Neurontin -) 800 mg PO TID [facility] Last Admin: 03/04/19 06:18 Dose: 800 mg Heparin Sodium (Porcine) (Heparin -) 5,000 unit SQ TID [facility] Last Admin: 03/04/19 06:18 Dose: 5,000 unit Hydromorphone HCl (Dilaudid -) 4 mg PO Q6H PRN PRN Reason: PAIN LEVEL 7 - 10 Last Admin: 03/03/19 16:14 Dose: 4 mg Hydromorphone HCl (Dilaudid Vial -) 2 mg IM Q6H PRN PRN Reason: PAIN LEVEL 7 - 10 Stop: 03/04/19 17:56 Last Admin: 03/04/19 06:19 Dose: 2 mg Insulin Aspart (Novolog Vial Sliding Scale -) 1 vial SQ ACHS [facility]; Protocol Last Admin: 03/04/19 06:19 Dose: Not Given Methylprednisolone Sodium Succinate (Solu-Medrol -) 40 mg IVPUSH Q8H-IV [facility] Last Admin: 03/04/19 10:02 Dose: 40 mg Montelukast Sodium (Singulair -) 10 mg PO [facility] Last Admin: 03/03/19 21:32 Dose: 10 mg Non-Formulary Medication (Insulin Pump Controller [Snap Insulin Pump Controller] ) 1 each MC ASDIR [facility] Non-Formulary Medication (Mesalamine [Pentasa]) 500 mg PO TID [facility] Oxycodone/Acetaminophen (Percocet 5/325 -) 2 combo PO BID [facility] Last Admin: 03/04/19 10:04 Dose: 2 combo Pancrelipase (Creon Dr 36,000 Units Capsule) 1 cap PO TIDCM [facility] Last Admin: 03/04/19 08:42 Dose: 1 cap Pantoprazole Sodium (Protonix -) 20 mg PO DAILY [facility] Last Admin: 03/04/19 10:04 Dose: 20 mg Polyethylene Glycol (Miralax (For Daily Use) -) 17 gm PO BID [facility] Last Admin: 03/04/19 10:06 Dose: 17 gm Rosuvastatin Calcium (Crestor -) 20 mg PO [facility] Last Admin: 03/03/19 21:30 Dose: 20 mg Senna/Docusate Sodium (Pericolace -) 1 tablet PO DAILY [facility] Last Admin: 03/04/19 10:08 Dose: 1 tablet Tamsulosin HCl (Flomax -) 0.4 mg PO DAILY@0830 [facility] Last Admin: 03/04/19 08:41 Dose: 0.4 mg Tapentadol (Nucynta Er -) 150 mg PO BID [facility] Last Admin: 03/04/19 10:03 Dose: 150 mg Tiotropium [place] (Spiriva Respimat) 2 puff IH DAILY [facility] Last Admin: 03/04/19 10:10 Dose: Not Given - Objective Vital Signs: Vital Signs Temperature 97.7 F 03/04/19 09:00 Pulse Rate 100 H 03/04/19 09:00 Respiratory Rate 20 03/04/19 09:00 Blood Pressure 147/97 03/04/19 09:00 O2 Sat by Pulse Oximetry (%) 98 03/04/19 09:00 Constitutional: Yes: Well Nourished, Calm Eyes: Yes: WNL HENT: Yes: WNL Neck: Yes: Supple (trach) Cardiovascular: Yes: Regular Rate and Rhythm, S1, S2 Respiratory: Yes: CTA Bilaterally Gastrointestinal: Yes: Normal Bowel Sounds, Soft Extremities: Yes: WNL Edema: Yes Labs: CBC, BMP 03/04/19 06:48 03/04/19 06:48 Problem List - Problems (1) BMI 39.0-39.9,adult Code(s): Z68.39 - BODY MASS INDEX (BMI) 39.0-39.9, ADULT (2) Leg edema Code(s): R60.0 - LOCALIZED EDEMA (3) SOB (shortness of breath) Code(s): R06.02 - SHORTNESS OF BREATH (4) HTN (hypertension) Code(s): I10 - ESSENTIAL (PRIMARY) HYPERTENSION (5) Hx of heart artery stent Code(s): Z95.5 - PRESENCE OF CORONARY ANGIOPLASTY IMPLANT AND GRAFT (6) ASHD (arteriosclerotic heart disease) Code(s): I25.10 - ATHSCL HEART DISEASE OF [place] CORONARY ARTERY W/O ANG PCTRS (7) COPD (chronic obstructive pulmonary disease) Code(s): J44.9 - CHRONIC OBSTRUCTIVE PULMONARY DISEASE, UNSPECIFIED (8) Diabetes mellitus Code(s): E11.9 - TYPE 2 DIABETES MELLITUS WITHOUT COMPLICATIONS Qualifiers: Diabetes mellitus type: type 2 (9) GRACIE (obstructive sleep apnea) Code(s): G47.33 - OBSTRUCTIVE SLEEP APNEA (ADULT) (PEDIATRIC) (10) Tracheostomy in place Code(s): Z98.89 - OTHER SPECIFIED POSTPROCEDURAL STATES * DO NOT USE * (11) Obesity Code(s): E66.9 - OBESITY, UNSPECIFIED (12) Asthma Code(s): J45.909 - UNSPECIFIED ASTHMA, UNCOMPLICATED Qualifiers: Asthma severity: unspecified severity Assessment/Plan Problem List - Problems (1) COPD exacerbation Code(s): J44.1 - CHRONIC OBSTRUCTIVE PULMONARY DISEASE W (ACUTE) EXACERBATION Assessment/Plan Acute COPD Exacerbation Acute on Chronic Diastolic Heart Failure Chronic Hypoxic Respiratory Failure Obstructive Sleep Apnea s/p Tracheostomy CAD s/p CABG HTN DM Hyperlipidemia Spinal Stenosis Chronic Pain Syndrome Opiate Dependence - IV medrol same dose - inhaled bronchodilators standing and PRN - O2 to keep Spo2 >90% - azithromycin - IV lasix - monitor urine output, creatinine - uncap tracheostomy when sleeping - dilaudid 4mg for breakthrough pain - DVT prophylaxis DR VANESSA
--- NOTE | 2019-03-04 14:16 | PN ---
Progress Note, Physician History of Present Illness: Pt seen and examined at bedside. He is awake and alert. He feels that his lower ext edema is improving. - Current Medication List Current Medications: Active Medications Al Hydroxide/Mg Hydroxide (Mylanta Suspension -) 30 ml PO Q6H PRN PRN Reason: DYSPEPSIA Albuterol Sulfate (Ventolin 0.083% Nebulizer Soln -) 1 amp NEB Q4H PRN PRN Reason: WHEEZING Last Admin: 03/04/19 11:05 Dose: 1 amp Amitriptyline HCl (Elavil -) 75 mg PO HS [facility] Last Admin: 03/03/19 21:31 Dose: 75 mg Amlodipine Besylate (Norvasc -) 10 mg PO DAILY [facility] Last Admin: 03/04/19 10:02 Dose: 10 mg Arformoterol Tartrate (Brovana (Restricted To Pulmonology/Resp) -) 1 amp NEB RBID [facility] Aspirin (Ecotrin -) 81 mg PO DAILY [facility] Last Admin: 03/04/19 10:08 Dose: 81 mg Budesonide/Formoterol Fumarate (Symbicort 160/4.5mcg -) 1 puff IH BID [facility] Last Admin: 03/04/19 10:09 Dose: 1 puff Chlorthalidone (Hygroton -) 25 mg PO DAILY [facility] Last Admin: 03/04/19 10:06 Dose: 25 mg Clopidogrel Bisulfate (Plavix -) 75 mg PO DAILY [facility] Last Admin: 03/04/19 10:04 Dose: 75 mg Ezetimibe (Zetia -) 10 mg PO HS [facility] Last Admin: 03/03/19 21:33 Dose: 10 mg Finasteride (Proscar -) 5 mg PO DAILY [facility] Last Admin: 03/04/19 10:02 Dose: 5 mg Gabapentin (Neurontin -) 800 mg PO TID [facility] Last Admin: 03/04/19 14:05 Dose: 800 mg Heparin Sodium (Porcine) (Heparin -) 5,000 unit SQ TID [facility] Last Admin: 03/04/19 14:05 Dose: 5,000 unit Hydromorphone HCl (Dilaudid -) 4 mg PO Q6H PRN PRN Reason: PAIN LEVEL 7 - 10 Last Admin: 03/03/19 16:14 Dose: 4 mg Hydromorphone HCl (Dilaudid Vial -) 2 mg IM Q6H PRN PRN Reason: PAIN LEVEL 7 - 10 Stop: 03/04/19 17:56 Last Admin: 03/04/19 14:06 Dose: 2 mg Insulin Aspart (Novolog Vial Sliding Scale -) 1 vial SQ [facility]; Protocol Last Admin: 03/04/19 12:08 Dose: Not Given Methylprednisolone Sodium Succinate (Solu-Medrol -) 40 mg IVPUSH Q8H-IV [facility] Last Admin: 03/04/19 10:02 Dose: 40 mg Montelukast Sodium (Singulair -) 10 mg PO [facility] Last Admin: 03/03/19 21:32 Dose: 10 mg Non-Formulary Medication (Insulin Pump Controller [Snap Insulin Pump Controller] ) 1 each [facility] ASDIR [facility] Non-Formulary Medication (Mesalamine [Pentasa]) 500 mg PO TID [facility] Oxycodone/Acetaminophen (Percocet 5/325 -) 2 combo PO BID [facility] Last Admin: 03/04/19 10:04 Dose: 2 combo Pancrelipase (Creon Dr 36,000 Units Capsule) 1 cap PO TIDCM [facility] Last Admin: 03/04/19 12:13 Dose: 1 cap Pantoprazole Sodium (Protonix -) 20 mg PO DAILY [facility] Last Admin: 03/04/19 10:04 Dose: 20 mg Polyethylene Glycol (Miralax (For Daily Use) -) 17 gm PO BID [facility] Last Admin: 03/04/19 10:06 Dose: 17 gm Rosuvastatin Calcium (Crestor -) 20 mg PO [facility] Last Admin: 03/03/19 21:30 Dose: 20 mg Senna/Docusate Sodium (Pericolace -) 1 tablet PO DAILY [facility] Last Admin: 03/04/19 10:08 Dose: 1 tablet Tamsulosin HCl (Flomax -) 0.4 mg PO DAILY@0830 [facility] Last Admin: 03/04/19 08:41 Dose: 0.4 mg Tapentadol (Nucynta Er -) 150 mg PO BID [facility] Last Admin: 03/04/19 10:03 Dose: 150 mg Tiotropium [place] (Spiriva Respimat) 2 puff IH DAILY [facility] Last Admin: 03/04/19 10:10 Dose: Not Given - Objective Vital Signs: Vital Signs Temperature 97.7 F 03/04/19 09:00 Pulse Rate 100 H 03/04/19 09:00 Respiratory Rate 20 03/04/19 09:00 Blood Pressure 147/97 03/04/19 09:00 O2 Sat by Pulse Oximetry (%) 98 03/04/19 09:00 Constitutional: Yes: Calm Eyes: Yes: Conjunctiva Clear HENT: Yes: Atraumatic Neck: Yes: Supple Cardiovascular: Yes: S1, S2 Respiratory: Yes: Rhonchi Gastrointestinal: Yes: Soft, Abdomen, Obese Genitourinary: Yes: WNL Musculoskeletal: Yes: WNL Edema: Yes Edema: LLE: 1+, RLE: 1+ Neurological: Yes: Oriented Psychiatric: Yes: Oriented Labs: CBC, BMP 03/04/19 06:48 03/04/19 06:48 - ....Imaging Ultrasound: Report Reviewed Assessment/Plan Current Medications Generic Name Dose Route Start Last Admin Trade Name Freq PRN Reason Stop Dose Admin Al Hydroxide/Mg Hydroxide 30 ml 03/03/19 07:37 Mylanta Suspension - PO Q6H PRN DYSPEPSIA Albuterol Sulfate 1 amp 03/02/19 13:04 03/04/19 11:05 Ventolin 0.083% Nebulizer Soln - NEB 1 amp Q4H PRN Administration WHEEZING Amitriptyline HCl 75 mg 03/03/19 22:00 03/03/19 21:31 Elavil - PO 75 mg HS [facility] Administration Amlodipine Besylate 10 mg 03/03/19 10:00 03/04/19 10:02 Norvasc - PO 10 mg DAILY [facility] Administration Arformoterol Tartrate 1 amp 03/04/19 20:00 Heena (Restricted To Pulmonology/Resp) - NEB RBID [facility] Aspirin 81 mg 03/03/19 10:00 03/04/19 10:08 Ecotrin - PO 81 mg DAILY [facility] Administration Budesonide/Formoterol Fumarate 1 puff 03/03/19 10:00 03/04/19 10:09 Symbicort 160/4.5mcg - IH 1 puff BID [facility] Administration Chlorthalidone 25 mg 03/03/19 10:00 03/04/19 10:06 Hygroton - PO 25 mg DAILY [facility] Administration Clopidogrel Bisulfate 75 mg 03/03/19 10:00 03/04/19 10:04 Plavix - PO 75 mg DAILY [facility] Administration Ezetimibe 10 mg 03/03/19 22:00 03/03/19 21:33 Zetia - PO 10 mg HS [facility] Administration Finasteride 5 mg 03/03/19 10:00 03/04/19 10:02 Proscar - PO 5 mg DAILY [facility] Administration Gabapentin 800 mg 03/03/19 14:00 03/04/19 14:05 Neurontin - PO 800 mg TID [facility] Administration Heparin Sodium (Porcine) 5,000 unit 03/02/19 14:00 03/04/19 14:05 Heparin - SQ 5,000 unit TID [facility] Administration Hydromorphone HCl 4 mg 03/03/19 14:33 03/03/19 16:14 Dilaudid - PO 4 mg Q6H PRN Administration PAIN LEVEL 7 - 10 Hydromorphone HCl 2 mg 03/03/19 17:57 03/04/19 14:06 Dilaudid Vial - IM 03/04/19 17:56 2 mg Q6H PRN Administration PAIN LEVEL 7 - 10 Insulin Aspart 1 vial 03/02/19 16:30 03/04/19 12:08 Novolog Vial Sliding Scale - SQ Not Given ACHS [facility] Protocol Methylprednisolone Sodium Succinate 40 mg 03/02/19 18:00 03/04/19 10:02 Solu-Medrol - IVPUSH 40 mg Q8H-IV [facility] Administration Montelukast Sodium 10 mg 03/03/19 22:00 03/03/19 21:32 Singulair - PO 10 mg HS [facility] Administration Non-Formulary Medication 1 each 03/03/19 07:37 Insulin Pump Controller [Snap Insulin Pump Controller] MC ASDIR [facility] Non-Formulary Medication 500 mg 03/03/19 14:00 Mesalamine [Pentasa] PO TID [facility] Oxycodone/Acetaminophen 2 combo 03/02/19 23:30 03/04/19 10:04 Percocet 5/325 - PO 2 combo BID [facility] Administration Pancrelipase 1 cap 03/03/19 08:00 03/04/19 12:[address] 36,000 Units Capsule PO 1 cap TIDCM [facility] Administration Pantoprazole Sodium 20 mg 03/03/19 10:00 03/04/19 10:04 Protonix - PO 20 mg DAILY [facility] Administration Polyethylene Glycol 17 gm 03/03/19 10:00 03/04/19 10:06 Miralax (For Daily Use) - PO 17 gm BID [facility] Administration Rosuvastatin Calcium 20 mg 03/03/19 22:00 03/03/19 21:30 Crestor - PO 20 mg HS [facility] Administration Senna/Docusate Sodium 1 tablet 03/03/19 10:00 03/04/19 10:08 Pericolace - PO 1 tablet DAILY [facility] Administration Tamsulosin HCl 0.4 mg 03/03/19 08:30 03/04/19 08:41 Flomax - PO 0.4 mg DAILY@0830 [facility] Administration Tapentadol 150 mg 03/03/19 10:00 03/04/19 10:03 Nucynta Er - PO 150 mg BID [facility] Administration Tiotropium [place] 2 puff 03/02/19 13:15 03/04/19 10:10 Spiriva Respimat IH Not Given DAILY [facility] 63 year old gentleman with history of hypertension, DM, hyperlipidemia, GRACIE s/ p trach, CAD s/p CABG, CHF with diastolic dysfunction who presented with worsening SOB and admitted for CHF + COPD exacerbation with Cr of 2. 1. Acute kidney injury 2. CHF with diastolic dysfunction 3. COPD 4. Chronic GRACIE 5. CAD s/p CABG 6. DM 7. 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
--- NOTE | 2019-03-04 14:30 | PN ---
Progress Note, Physician Chief Complaint: COPD Exacerbation Intractable lower back pain CHF History of Present Illness: Previous notes and events reviewed awake and alert NAD SOB with exertion sts pain is better today - Current Medication List Current Medications: Active Medications Al Hydroxide/Mg Hydroxide (Mylanta Suspension -) 30 ml PO Q6H PRN PRN Reason: DYSPEPSIA Albuterol Sulfate (Ventolin 0.083% Nebulizer Soln -) 1 amp NEB Q4H PRN PRN Reason: WHEEZING Last Admin: 03/04/19 11:05 Dose: 1 amp Amitriptyline HCl (Elavil -) 75 mg PO HS [facility] Last Admin: 03/03/19 21:31 Dose: 75 mg Amlodipine Besylate (Norvasc -) 10 mg PO DAILY [facility] Last Admin: 03/04/19 10:02 Dose: 10 mg Arformoterol Tartrate (Brovana (Restricted To Pulmonology/Resp) -) 1 amp NEB RBID [facility] Aspirin (Ecotrin -) 81 mg PO DAILY [facility] Last Admin: 03/04/19 10:08 Dose: 81 mg Budesonide/Formoterol Fumarate (Symbicort 160/4.5mcg -) 1 puff IH BID [facility] Last Admin: 03/04/19 10:09 Dose: 1 puff Chlorthalidone (Hygroton -) 25 mg PO DAILY [facility] Last Admin: 03/04/19 10:06 Dose: 25 mg Clopidogrel Bisulfate (Plavix -) 75 mg PO DAILY [facility] Last Admin: 03/04/19 10:04 Dose: 75 mg Ezetimibe (Zetia -) 10 mg PO HS [facility] Last Admin: 03/03/19 21:33 Dose: 10 mg Finasteride (Proscar -) 5 mg PO DAILY [facility] Last Admin: 03/04/19 10:02 Dose: 5 mg Gabapentin (Neurontin -) 800 mg PO TID [facility] Last Admin: 03/04/19 14:05 Dose: 800 mg Heparin Sodium (Porcine) (Heparin -) 5,000 unit SQ TID [facility] Last Admin: 03/04/19 14:05 Dose: 5,000 unit Hydromorphone HCl (Dilaudid -) 4 mg PO Q6H PRN PRN Reason: PAIN LEVEL 7 - 10 Last Admin: 03/03/19 16:14 Dose: 4 mg Hydromorphone HCl (Dilaudid Vial -) 2 mg IM Q6H PRN PRN Reason: PAIN LEVEL 7 - 10 Stop: 03/04/19 17:56 Last Admin: 03/04/19 14:06 Dose: 2 mg Insulin Aspart (Novolog Vial Sliding Scale -) 1 vial SQ [facility]; Protocol Last Admin: 03/04/19 12:08 Dose: Not Given Methylprednisolone Sodium Succinate (Solu-Medrol -) 40 mg IVPUSH Q8H-IV [facility] Last Admin: 03/04/19 10:02 Dose: 40 mg Montelukast Sodium (Singulair -) 10 mg PO [facility] Last Admin: 03/03/19 21:32 Dose: 10 mg Non-Formulary Medication (Insulin Pump Controller [Snap Insulin Pump Controller] ) 1 each MC ASDIR [facility] Non-Formulary Medication (Mesalamine [Pentasa]) 500 mg PO TID [facility] Oxycodone/Acetaminophen (Percocet 5/325 -) 2 combo PO BID [facility] Last Admin: 03/04/19 10:04 Dose: 2 combo Pancrelipase (Creon Dr 36,000 Units Capsule) 1 cap PO TIDCM [facility] Last Admin: 03/04/19 12:13 Dose: 1 cap Pantoprazole Sodium (Protonix -) 20 mg PO DAILY [facility] Last Admin: 03/04/19 10:04 Dose: 20 mg Polyethylene Glycol (Miralax (For Daily Use) -) 17 gm PO BID [facility] Last Admin: 03/04/19 10:06 Dose: 17 gm Rosuvastatin Calcium (Crestor -) 20 mg PO [facility] Last Admin: 03/03/19 21:30 Dose: 20 mg Senna/Docusate Sodium (Pericolace -) 1 tablet PO DAILY [facility] Last Admin: 03/04/19 10:08 Dose: 1 tablet Tamsulosin HCl (Flomax -) 0.4 mg PO DAILY@0830 [facility] Last Admin: 03/04/19 08:41 Dose: 0.4 mg Tapentadol (Nucynta Er -) 150 mg PO BID [facility] Last Admin: 03/04/19 10:03 Dose: 150 mg Tiotropium [place] (Spiriva Respimat) 2 puff IH DAILY [facility] Last Admin: 03/04/19 10:10 Dose: Not Given - Objective Vital Signs: Vital Signs Temperature 97.7 F 03/04/19 09:00 Pulse Rate 110 H 03/04/19 14:23 Respiratory Rate 20 03/04/19 14:23 Blood Pressure 139/99 03/04/19 14:23 O2 Sat by Pulse Oximetry (%) 98 03/04/19 09:00 Constitutional: Yes: No Distress, Calm Eyes: Yes: Conjunctiva Clear HENT: Yes: Atraumatic Cardiovascular: Yes: Regular Rate and Rhythm Respiratory: Yes: Regular, Tachypnea, Wheezes Gastrointestinal: Yes: Normal Bowel Sounds, Soft, Abdomen, Obese Musculoskeletal: Yes: WNL Extremities: Yes: WNL Edema: Yes Neurological: Yes: Alert, Oriented Psychiatric: Yes: Alert, Oriented Labs: CBC, BMP 03/04/19 06:48 03/04/19 06:48 - ....Imaging Ultrasound: Report Reviewed Problem List - Problems (1) BMI 39.0-39.9,adult Assessment/Plan: -Dietary consult Code(s): Z68.39 - BODY MASS INDEX (BMI) 39.0-39.9, ADULT (2) COPD exacerbation Assessment/Plan: -Pulm on board -O2 via NC -keep SpO2 >90% -Symbicort, Brovanna, Spiriva -bronchodilators -IV Medrol Code(s): J44.1 - CHRONIC OBSTRUCTIVE PULMONARY DISEASE W (ACUTE) EXACERBATION (3) Diastolic CHF Assessment/Plan: -Cardiology on board -1L fluid restriction -daily weights -strict I&Os Code(s): I50.30 - UNSPECIFIED DIASTOLIC (CONGESTIVE) HEART FAILURE (4) Leg edema Assessment/Plan: -will monitor renal function tomorrow and if showing downtrend will start lasix Code(s): R60.0 - LOCALIZED EDEMA (5) Renal insufficiency Assessment/Plan: -Renal on board -BUN/Cr 62.3/2.0 -continue to monitor renal function Code(s): N28.9 - DISORDER OF KIDNEY AND URETER, UNSPECIFIED (6) HTN (hypertension) Assessment/Plan: -Norvasc, Chlorthalidone -low Na diet Code(s): I10 - ESSENTIAL (PRIMARY) HYPERTENSION (7) Hyperlipidemia Assessment/Plan: -Zetia, Crestor Code(s): E78.5 - HYPERLIPIDEMIA, UNSPECIFIED (8) Diabetes mellitus Assessment/Plan: -BGM ACHS -Insulin pump -ISS -diabetic diet Code(s): E11.9 - TYPE 2 DIABETES MELLITUS WITHOUT COMPLICATIONS Qualifiers: Diabetes mellitus type: type 2 (9) Intractable low back pain Assessment/Plan: -Pain consult -Dilaudid, Nucynta, Percocet -Neurosurgery consult Code(s): M54.5 - LOW BACK PAIN (10) Abdominal pain Assessment/Plan: -Abdominal US shows fatty enlarged liver, possible gallstone -GI consult Code(s): R10.9 - UNSPECIFIED ABDOMINAL PAIN Assessment/Plan see problem list dvt ppx
[2019-03-04] MEDS: ARFORMOTEROL TARTRATE 15 MCG/2 ML VIAL NEB SCH (20:15)
[2019-03-04] MEDS: MONTELUKAST NA 10 MG TABLET PO SCH (23:14)
[2019-03-04] MEDS: EZETIMIBE 10 MG TABLET (FP) PO SCH (23:15)
[2019-03-04] MEDS: AMITRIPTYLINE HCL 75 MG TABLET PO SCH (23:15)
[2019-03-04] MEDS: ROSUVASTATIN CA 20 MG TABLET (FP) PO SCH (23:15)
[2019-03-05] MEDS: methylPREDNISolone NA SUCC 40 MG/1 ML VIAL IVPUSH SCH ×3 (01:29→21:24)
[2019-03-05] MEDS: HEPARIN NA (PORCINE) 5,000 UNITS/ML 1ML VIAL SQ SCH ×3 (05:12→21:24)
[2019-03-05] MEDS: GABAPENTIN 400 MG CAPSULE (FP) PO SCH ×3 (05:12→21:24)
[2019-03-05] MEDS: INSULIN SLIDING SCALE (NOVOLOG) 1 VIAL SQ SCH ×4 (06:02→21:49)
[2019-03-05] MEDS: ARFORMOTEROL TARTRATE 15 MCG/2 ML VIAL NEB SCH ×2 (07:29→21:15)
[2019-03-05] MEDS: LIPASE/PROTEASE/AMYLASE 36,000 UNIT CAPSULE PO SCH ×3 (08:58→16:52)
[2019-03-05] MEDS: TAMSULOSIN HCL 0.4 MG CAP PO SCH (08:58)
[2019-03-05 09:03] LABS: HEMATOCRIT 35.6 % (35.4-49); HEMOGLOBIN 11.7 GM/dL (11.7-16.9); MCHC 32.8 g/dl (32.0-35.9); MEAN CELL VOLUME 82.2 fl (80-96); MEAN PLT VOLUME 7.5 fl (7.5-11.1); PLATELET COUNT 301 K/MM3 (134-434); RBC 4.33 M/mm3 (4.00-5.60); RDW 16.1 % (11.9-15.9); WHITE BLOOD COUNT 9.9 K/mm3 (4.0-10.0)
[2019-03-05 09:18] LABS: ALBUMIN 3.5 g/dl (3.4-5.0); BILIRUBIN,TOTAL 0.4 mg/dL (0.2-1); BLOOD UREA NITROGEN 69.7 mg/dL (7-18); CALCIUM 9.1 mg/dL (8.5-10.1); CREATININE 2.3 mg/dL (0.55-1.3); POTASSIUM 5.5 mmol/L (3.5-5.1); TOT PROT 6.8 g/dl (6.4-8.2)
--- NOTE | 2019-03-05 10:53 | PN ---
Progress Note, Physician History of Present Illness: pulmonary alert,comfortable,breathing better - Current Medication List Current Medications: Active Medications Al Hydroxide/Mg Hydroxide (Mylanta Suspension -) 30 ml PO Q6H PRN PRN Reason: DYSPEPSIA Albuterol Sulfate (Ventolin 0.083% Nebulizer Soln -) 1 amp NEB Q4H PRN PRN Reason: WHEEZING Last Admin: 03/04/19 11:05 Dose: 1 amp Amitriptyline HCl (Elavil -) 75 mg PO HS [facility] Last Admin: 03/04/19 23:15 Dose: 75 mg Amlodipine Besylate (Norvasc -) 10 mg PO DAILY [facility] Last Admin: 03/04/19 10:02 Dose: 10 mg Arformoterol Tartrate (Brovana (Restricted To Pulmonology/Resp) -) 1 amp NEB RBID [facility] Last Admin: 03/05/19 07:29 Dose: 1 amp Aspirin (Ecotrin -) 81 mg PO DAILY [facility] Last Admin: 03/04/19 10:08 Dose: 81 mg Budesonide/Formoterol Fumarate (Symbicort 160/4.5mcg -) 1 puff IH BID [facility] Last Admin: 03/04/19 23:15 Dose: 1 puff Chlorthalidone (Hygroton -) 25 mg PO DAILY [facility] Last Admin: 03/04/19 10:06 Dose: 25 mg Clopidogrel Bisulfate (Plavix -) 75 mg PO DAILY [facility] Last Admin: 03/04/19 10:04 Dose: 75 mg Ezetimibe (Zetia -) 10 mg PO HS [facility] Last Admin: 03/04/19 23:15 Dose: 10 mg Finasteride (Proscar -) 5 mg PO DAILY [facility] Last Admin: 03/04/19 10:02 Dose: 5 mg Gabapentin (Neurontin -) 800 mg PO TID [facility] Last Admin: 03/05/19 05:12 Dose: 800 mg Heparin Sodium (Porcine) (Heparin -) 5,000 unit SQ TID [facility] Last Admin: 03/05/19 05:12 Dose: 5,000 unit Hydromorphone HCl (Dilaudid -) 4 mg PO Q6H PRN PRN Reason: PAIN LEVEL 7 - 10 Last Admin: 03/05/19 05:13 Dose: 4 mg Insulin Aspart (Novolog Vial Sliding Scale -) 1 vial SQ ACHS [facility]; Protocol Last Admin: 03/05/19 06:02 Dose: Not Given Methylprednisolone Sodium Succinate (Solu-Medrol -) 40 mg IVPUSH Q8H-IV [facility] Last Admin: 03/05/19 01:29 Dose: 40 mg Montelukast Sodium (Singulair -) 10 mg PO HS [facility] Last Admin: 03/04/19 23:14 Dose: 10 mg Non-Formulary Medication (Insulin Pump Controller [Snap Insulin Pump Controller] ) 1 each MC ASDIR [facility] Non-Formulary Medication (Mesalamine [Pentasa]) 500 mg PO TID [facility] Oxycodone/Acetaminophen (Percocet 5/325 -) 2 combo PO BID [facility] Last Admin: 03/04/19 23:13 Dose: 2 combo Pancrelipase (Creon Dr 36,000 Units Capsule) 1 cap PO TIDCM [facility] Last Admin: 03/04/19 18:07 Dose: 1 cap Pantoprazole Sodium (Protonix -) 20 mg PO DAILY [facility] Last Admin: 03/04/19 10:04 Dose: 20 mg Polyethylene Glycol (Miralax (For Daily Use) -) 17 gm PO BID [facility] Last Admin: 03/04/19 23:15 Dose: 17 gm Rosuvastatin Calcium (Crestor -) 20 mg PO [facility] Last Admin: 03/04/19 23:15 Dose: 20 mg Senna/Docusate Sodium (Pericolace -) 1 tablet PO DAILY [facility] Last Admin: 03/04/19 10:08 Dose: 1 tablet Tamsulosin HCl (Flomax -) 0.4 mg PO DAILY@0830 [facility] Last Admin: 03/04/19 08:41 Dose: 0.4 mg Tapentadol (Nucynta Er -) 150 mg PO BID [facility] Last Admin: 03/04/19 23:14 Dose: 150 mg Tiotropium [place] (Spiriva Respimat) 2 puff IH DAILY [facility] Last Admin: 03/04/19 10:10 Dose: Not Given - Objective Vital Signs: Vital Signs Temperature 98.5 F 03/05/19 06:00 Pulse Rate 109 H 03/05/19 06:00 Respiratory Rate 20 03/05/19 06:00 Blood Pressure 112/83 03/05/19 06:00 O2 Sat by Pulse Oximetry (%) 97 03/04/19 21:00 Constitutional: Yes: Well Nourished, Calm Eyes: Yes: WNL HENT: Yes: WNL Neck: Yes: Supple (trach) Cardiovascular: Yes: Regular Rate and Rhythm, S1, S2 Respiratory: Yes: CTA Bilaterally Gastrointestinal: Yes: Normal Bowel Sounds, Soft Extremities: Yes: WNL Edema: Yes Labs: CBC, BMP 03/05/19 07:50 03/05/19 07:50 Problem List - Problems (1) BMI 39.0-39.9,adult Code(s): Z68.39 - BODY MASS INDEX (BMI) 39.0-39.9, ADULT (2) Leg edema Code(s): R60.0 - LOCALIZED EDEMA (3) SOB (shortness of breath) Code(s): R06.02 - SHORTNESS OF BREATH (4) HTN (hypertension) Code(s): I10 - ESSENTIAL (PRIMARY) HYPERTENSION (5) Hx of heart artery stent Code(s): Z95.5 - PRESENCE OF CORONARY ANGIOPLASTY IMPLANT AND GRAFT (6) ASHD (arteriosclerotic heart disease) Code(s): I25.10 - ATHSCL HEART DISEASE OF [place] CORONARY ARTERY W/O ANG PCTRS (7) COPD (chronic obstructive pulmonary disease) Code(s): J44.9 - CHRONIC OBSTRUCTIVE PULMONARY DISEASE, UNSPECIFIED (8) Diabetes mellitus Code(s): E11.9 - TYPE 2 DIABETES MELLITUS WITHOUT COMPLICATIONS Qualifiers: Diabetes mellitus type: type 2 (9) GRACIE (obstructive sleep apnea) Code(s): G47.33 - OBSTRUCTIVE SLEEP APNEA (ADULT) (PEDIATRIC) (10) Tracheostomy in place Code(s): Z98.89 - OTHER SPECIFIED POSTPROCEDURAL STATES * DO NOT USE * (11) Obesity Code(s): E66.9 - OBESITY, UNSPECIFIED (12) Asthma Code(s): J45.909 - UNSPECIFIED ASTHMA, UNCOMPLICATED Qualifiers: Asthma severity: unspecified severity Assessment/Plan Problem List - Problems (1) COPD exacerbation Code(s): J44.1 - CHRONIC OBSTRUCTIVE PULMONARY DISEASE W (ACUTE) EXACERBATION Assessment/Plan Acute COPD Exacerbation improving Acute on Chronic Diastolic Heart Failure Chronic Hypoxic Respiratory Failure Obstructive Sleep Apnea s/p Tracheostomy CAD s/p CABG HTN DM Hyperlipidemia Spinal Stenosis Chronic Pain Syndrome Opiate Dependence Acute on chronic kidney disease - medrol taper - inhaled bronchodilators standing and PRN - O2 to keep Spo2 >90% - azithromycin - IV lasix - monitor urine output, creatinine - uncap tracheostomy when sleeping - dilaudid 4mg for breakthrough pain - DVT prophylaxis DR VANESSA
[2019-03-05] MEDS: CLOPIDOGREL BISULFATE 75 MG TABLET (FP) PO SCH (10:56)
[2019-03-05] MEDS: FINASTERIDE 5 MG TABLET (FP) PO SCH (10:56)
[2019-03-05] MEDS: TAPENTADOL HCL 50 MG TAB.ER.12H PO SCH ×2 (10:56→21:23)
[2019-03-05] MEDS: ASPIRIN COATED 81 MG TABLET.EC PO SCH (10:59)
[2019-03-05] MEDS: SENNOSIDES/DOCUSATE COMBO (SENNA PLUS) TABLET (UD) PO SCH (10:59)
[2019-03-05] MEDS: PANTOPRAZOLE 20 MG TABLET (FP) PO SCH (11:00)
[2019-03-05] MEDS: amLODIPine BESYLATE 10 MG TABLET (FP) PO SCH (11:00)
[2019-03-05] MEDS: CHLORTHALIDONE 25 MG TABLET PO SCH (11:00)
[2019-03-05] MEDS: BUDESONIDE/FORMETEROL FUMARATE 160/4.5 mcg INHALER IH SCH ×2 (11:05→21:25)
[2019-03-05] MEDS: TIOTROPIUM BROMIDE 2.5 MCG (SPIRIVA) RESPIMAT INHALER IH SCH (11:05)
[2019-03-05] MEDS: POLYETHYLENE GLYCOL 3350 119 GM BTL PO SCH ×2 (11:09→21:25)
[2019-03-05] MEDS ORDERED: SODIUM POLYSTYRENE SULFONATE 15 GM/60 ML BOTTLE PO ONE (14:13)
--- NOTE | 2019-03-05 14:53 | PN ---
Progress Note, Physician Chief Complaint: COPD Exacerbation Intractable lower back pain CHF History of Present Illness: Previous notes and events reviewed awake and alert NAD denies chest pain or SOB tachycardic with HR 100-110s sts pain is better today K+ 5.5 - Current Medication List Current Medications: Active Medications Al Hydroxide/Mg Hydroxide (Mylanta Suspension -) 30 ml PO Q6H PRN PRN Reason: DYSPEPSIA Albuterol Sulfate (Ventolin 0.083% Nebulizer Soln -) 1 amp NEB Q4H PRN PRN Reason: WHEEZING Last Admin: 03/04/19 11:05 Dose: 1 amp Amitriptyline HCl (Elavil -) [address] [facility] Last Admin: 03/04/19 23:15 Dose: 75 mg Amlodipine Besylate (Norvasc -) 10 mg PO DAILY [facility] Last Admin: 03/05/19 11:00 Dose: 10 mg Arformoterol Tartrate (Brovana (Restricted To Pulmonology/Resp) -) 1 amp NEB RBID [facility] Last Admin: 03/05/19 07:29 Dose: 1 amp Aspirin (Ecotrin -) 81 mg PO DAILY [facility] Last Admin: 03/05/19 10:59 Dose: 81 mg Budesonide/Formoterol Fumarate (Symbicort 160/4.5mcg -) 1 puff IH BID [facility] Last Admin: 03/05/19 11:05 Dose: 1 puff Chlorthalidone (Hygroton -) 25 mg PO DAILY [facility] Last Admin: 03/05/19 11:00 Dose: 25 mg Clopidogrel Bisulfate (Plavix -) 75 mg PO DAILY [facility] Last Admin: 03/05/19 10:56 Dose: 75 mg Ezetimibe (Zetia -) 10 mg PO HS [facility] Last Admin: 03/04/19 23:15 Dose: 10 mg Finasteride (Proscar -) 5 mg PO DAILY [facility] Last Admin: 03/05/19 10:56 Dose: 5 mg Gabapentin (Neurontin -) 800 mg PO TID [facility] Last Admin: 03/05/19 05:12 Dose: 800 mg Heparin Sodium (Porcine) (Heparin -) 5,000 unit SQ TID [facility] Last Admin: 03/05/19 05:12 Dose: 5,000 unit Hydromorphone HCl (Dilaudid -) 4 mg PO Q6H PRN PRN Reason: PAIN LEVEL 7 - 10 Last Admin: 03/05/19 14:19 Dose: 4 mg Insulin Aspart (Novolog Vial Sliding Scale -) 1 vial SQ ACHS [facility]; Protocol Last Admin: 03/05/19 11:29 Dose: Not Given Methylprednisolone Sodium Succinate (Solu-Medrol -) 40 mg IVPUSH Q12H [facility] Montelukast Sodium (Singulair -) [address] [facility] Last Admin: 03/04/19 23:14 Dose: 10 mg Non-Formulary Medication (Insulin Pump Controller [Snap Insulin Pump Controller] ) 1 each MC ASDIR [facility] Non-Formulary Medication (Mesalamine [Pentasa]) 500 mg PO TID [facility] Oxycodone/Acetaminophen (Percocet 5/325 -) 2 combo PO BID [facility] Last Admin: 03/05/19 11:01 Dose: 2 combo Pancrelipase (Creon Dr 36,000 Units Capsule) 1 cap PO TIDCM [facility] Last Admin: 03/05/19 11:00 Dose: 1 cap Pantoprazole Sodium (Protonix -) 20 mg PO DAILY [facility] Last Admin: 03/05/19 11:00 Dose: 20 mg Polyethylene Glycol (Miralax (For Daily Use) -) 17 gm PO BID [facility] Last Admin: 03/05/19 11:09 Dose: Not Given Rosuvastatin Calcium (Crestor -) [address] [facility] Last Admin: 03/04/19 23:15 Dose: 20 mg Senna/Docusate Sodium (Pericolace -) 1 tablet PO DAILY [facility] Last Admin: 03/05/19 10:59 Dose: 1 tablet Tamsulosin HCl (Flomax -) 0.4 mg PO DAILY@0830 [facility] Last Admin: 03/05/19 08:58 Dose: 0.4 mg Tapentadol (Nucynta Er -) 150 mg PO BID [facility] Last Admin: 03/05/19 10:56 Dose: 150 mg Tiotropium [place] (Spiriva Respimat) 2 puff IH DAILY [facility] Last Admin: 03/05/19 11:05 Dose: 2 puff - Objective Vital Signs: Vital Signs Temperature 98.5 F 03/05/19 06:00 Pulse Rate 109 H 03/05/19 06:00 Respiratory Rate 20 03/05/19 06:00 Blood Pressure 112/83 03/05/19 06:00 O2 Sat by Pulse Oximetry (%) 97 03/04/19 21:00 Constitutional: Yes: No Distress, Calm Eyes: Yes: Conjunctiva Clear HENT: Yes: Atraumatic Cardiovascular: Yes: Regular Rate and Rhythm Respiratory: Yes: Regular, CTA Bilaterally Gastrointestinal: Yes: Normal Bowel Sounds, Soft Musculoskeletal: Yes: Muscle Weakness Extremities: Yes: WNL Edema: Yes Edema: RLE: 1+ Neurological: Yes: Alert, Oriented, Weakness Psychiatric: Yes: Alert, Oriented Labs: CBC, BMP 03/05/19 07:50 03/05/19 07:50 Problem List - Problems (1) BMI 39.0-39.9,adult Assessment/Plan: -Dietary consult Code(s): Z68.39 - BODY MASS INDEX (BMI) 39.0-39.9, ADULT (2) COPD exacerbation Assessment/Plan: -Pulm on board -O2 via NC -keep SpO2 >90% -Symbicort, Brovanna, Spiriva -bronchodilators -IV Medrol Code(s): J44.1 - CHRONIC OBSTRUCTIVE PULMONARY DISEASE W (ACUTE) EXACERBATION (3) Diastolic CHF Assessment/Plan: -Cardiology on board -1L fluid restriction -daily weights -strict I&Os Code(s): I50.30 - UNSPECIFIED DIASTOLIC (CONGESTIVE) HEART FAILURE (4) Leg edema Assessment/Plan: -will monitor renal function tomorrow and if showing downtrend will start lasix Code(s): R60.0 - LOCALIZED EDEMA (5) Renal insufficiency Assessment/Plan: -Renal on board -BUN/Cr 69.7/2.3 -continue to monitor renal function Code(s): N28.9 - DISORDER OF KIDNEY AND URETER, UNSPECIFIED (6) HTN (hypertension) Assessment/Plan: -Norvasc, Chlorthalidone -low Na diet Code(s): I10 - ESSENTIAL (PRIMARY) HYPERTENSION (7) Hyperlipidemia Assessment/Plan: -Chester Lopez Code(s): E78.5 - HYPERLIPIDEMIA, UNSPECIFIED (8) Diabetes mellitus Assessment/Plan: -BGM ACHS -Insulin pump -ISS -diabetic diet Code(s): E11.9 - TYPE 2 DIABETES MELLITUS WITHOUT COMPLICATIONS Qualifiers: Diabetes mellitus type: type 2 (9) Intractable low back pain Assessment/Plan: -Pain consult -Dilaudid, Nucynta, Percocet -Neurosurgery consult Code(s): M54.5 - LOW BACK PAIN (10) Abdominal pain Assessment/Plan: -Abdominal US shows fatty enlarged liver, possible gallstone -GI consult Code(s): R10.9 - UNSPECIFIED ABDOMINAL PAIN (11) Hyperkalemia Assessment/Plan: -K 5.5 -renal on board Code(s): E87.5 - HYPERKALEMIA Assessment/Plan see problem list dvt ppx
--- NOTE | 2019-03-05 15:30 | PN ---
Progress Note, Physician History of Present Illness: Pt seen and examined at bedside. He is awake and alert. He denies shortness of breath. - Current Medication List Current Medications: Active Medications Al Hydroxide/Mg Hydroxide (Mylanta Suspension -) 30 ml PO Q6H PRN PRN Reason: DYSPEPSIA Albuterol Sulfate (Ventolin 0.083% Nebulizer Soln -) 1 amp NEB Q4H PRN PRN Reason: WHEEZING Last Admin: 03/04/19 11:05 Dose: 1 amp Amitriptyline HCl (Elavil -) 75 mg PO HS [facility] Last Admin: 03/04/19 23:15 Dose: 75 mg Amlodipine Besylate (Norvasc -) 10 mg PO DAILY [facility] Last Admin: 03/05/19 11:00 Dose: 10 mg Arformoterol Tartrate (Brovana (Restricted To Pulmonology/Resp) -) 1 amp NEB RBID [facility] Last Admin: 03/05/19 07:29 Dose: 1 amp Aspirin (Ecotrin -) 81 mg PO DAILY [facility] Last Admin: 03/05/19 10:59 Dose: 81 mg Budesonide/Formoterol Fumarate (Symbicort 160/4.5mcg -) 1 puff IH BID [facility] Last Admin: 03/05/19 11:05 Dose: 1 puff Chlorthalidone (Hygroton -) 25 mg PO DAILY [facility] Last Admin: 03/05/19 11:00 Dose: 25 mg Clopidogrel Bisulfate (Plavix -) 75 mg PO DAILY [facility] Last Admin: 03/05/19 10:56 Dose: 75 mg Ezetimibe (Zetia -) 10 mg PO HS [facility] Last Admin: 03/04/19 23:15 Dose: 10 mg Finasteride (Proscar -) 5 mg PO DAILY [facility] Last Admin: 03/05/19 10:56 Dose: 5 mg Gabapentin (Neurontin -) 800 mg PO TID [facility] Last Admin: 03/05/19 14:58 Dose: 800 mg Heparin Sodium (Porcine) (Heparin -) 5,000 unit SQ TID [facility] Last Admin: 03/05/19 14:58 Dose: 5,000 unit Hydromorphone HCl (Dilaudid -) 4 mg PO Q6H PRN PRN Reason: PAIN LEVEL 7 - 10 Last Admin: 03/05/19 14:19 Dose: 4 mg Insulin Aspart (Novolog Vial Sliding Scale -) 1 vial SQ ACHS [facility]; Protocol Last Admin: 03/05/19 11:29 Dose: Not Given Methylprednisolone Sodium Succinate (Solu-Medrol -) 40 mg IVPUSH Q12H [facility] Montelukast Sodium (Singulair -) 10 mg PO HS [facility] Last Admin: 03/04/19 23:14 Dose: 10 mg Non-Formulary Medication (Insulin Pump Controller [Snap Insulin Pump Controller] ) 1 each MC ASDIR [facility] Non-Formulary Medication (Mesalamine [Pentasa]) 500 mg PO TID [facility] Oxycodone/Acetaminophen (Percocet 5/325 -) 2 combo PO BID [facility] Last Admin: 03/05/19 11:01 Dose: 2 combo Pancrelipase (Creon Dr 36,000 Units Capsule) 1 cap PO TIDCM [facility] Last Admin: 03/05/19 11:00 Dose: 1 cap Pantoprazole Sodium (Protonix -) 20 mg PO DAILY [facility] Last Admin: 03/05/19 11:00 Dose: 20 mg Polyethylene Glycol (Miralax (For Daily Use) -) 17 gm PO BID [facility] Last Admin: 03/05/19 11:09 Dose: Not Given Rosuvastatin Calcium (Crestor -) 20 mg PO [facility] Last Admin: 03/04/19 23:15 Dose: 20 mg Senna/Docusate Sodium (Pericolace -) 1 tablet PO DAILY [facility] Last Admin: 03/05/19 10:59 Dose: 1 tablet Sodium Zirconium Cyclosilicate (Lokelma) 10 gm PO DAILY [facility] Stop: 03/06/19 10:01 Tamsulosin HCl (Flomax -) 0.4 mg PO DAILY@0830 [facility] Last Admin: 03/05/19 08:58 Dose: 0.4 mg Tapentadol (Nucynta Er -) 150 mg PO BID [facility] Last Admin: 03/05/19 10:56 Dose: 150 mg Tiotropium Pauline (Spiriva Respimat) 2 puff IH DAILY [facility] Last Admin: 03/05/19 11:05 Dose: 2 puff - Objective Vital Signs: Vital Signs Temperature 98.6 F 03/05/19 14:57 Pulse Rate 118 H 03/05/19 14:57 Respiratory Rate 20 03/05/19 14:57 Blood Pressure 164/103 H 03/05/19 14:57 O2 Sat by Pulse Oximetry (%) 97 03/04/19 21:00 Constitutional: Yes: Calm Eyes: Yes: Conjunctiva Clear HENT: Yes: Atraumatic Neck: Yes: Supple Cardiovascular: Yes: S1, S2 Respiratory: Yes: CTA Bilaterally Gastrointestinal: Yes: Soft, Abdomen, Obese Genitourinary: Yes: WNL Musculoskeletal: Yes: Back Pain Edema: Yes Edema: LLE: Trace, RLE: Trace Neurological: Yes: Oriented Psychiatric: Yes: Oriented Labs: CBC, BMP 03/05/19 07:50 03/05/19 07:50 Assessment/Plan Current Medications Generic Name Dose Route Start Last Admin Trade Name Freq PRN Reason Stop Dose Admin Al Hydroxide/Mg Hydroxide 30 ml 03/03/19 07:37 Mylanta Suspension - PO Q6H PRN DYSPEPSIA Albuterol Sulfate 1 amp 03/02/19 13:04 03/04/19 11:05 Ventolin 0.083% Nebulizer Soln - NEB 1 amp Q4H PRN Administration WHEEZING Amitriptyline HCl 75 mg 03/03/19 22:00 03/04/19 23:15 Elavil - PO 75 mg HS MARK Administration Amlodipine Besylate 10 mg 03/03/19 10:00 03/05/19 11:00 Norvasc - PO 10 mg DAILY MARK Administration Arformoterol Tartrate 1 amp 03/04/19 20:00 03/05/19 07:29 Brovana (Restricted To Pulmonology/Resp) - NEB 1 amp RBID MARK Administration Aspirin 81 mg 03/03/19 10:00 03/05/19 10:59 Ecotrin - PO 81 mg DAILY MARK Administration Budesonide/Formoterol Fumarate 1 puff 03/03/19 10:00 03/05/19 11:05 Symbicort 160/4.5mcg - IH 1 puff BID MARK Administration Chlorthalidone 25 mg 03/03/19 10:00 03/05/19 11:00 Hygroton - PO 25 mg DAILY MARK Administration Clopidogrel Bisulfate 75 mg 03/03/19 10:00 03/05/19 10:56 Plavix - PO 75 mg DAILY MARK Administration Ezetimibe 10 mg 03/03/19 22:00 03/04/19 23:15 Zetia - PO 10 mg HS [facility] Administration Finasteride 5 mg 03/03/19 10:00 03/05/19 10:56 Proscar - PO 5 mg DAILY [facility] Administration Gabapentin 800 mg 03/03/19 14:00 03/05/19 14:58 Neurontin - PO 800 mg TID MARK Administration Heparin Sodium (Porcine) 5,000 unit 03/02/19 14:00 03/05/19 14:58 Heparin - SQ 5,000 unit TID [facility] Administration Hydromorphone HCl 4 mg 03/03/19 14:33 03/05/19 14:19 Dilaudid - PO 4 mg Q6H PRN Administration PAIN LEVEL 7 - 10 Insulin Aspart 1 vial 03/02/19 16:30 03/05/19 11:29 Novolog Vial Sliding Scale - SQ Not Given ACHS [facility] Protocol Methylprednisolone Sodium Succinate 40 mg 03/05/19 22:00 Solu-Medrol - IVPUSH Q12H [facility] Montelukast Sodium 10 mg 03/03/19 22:00 03/04/19 23:14 Singulair - PO 10 mg HS [facility] Administration Non-Formulary Medication 1 each 03/03/19 07:37 Insulin Pump Controller [Snap Insulin Pump Controller] MC ASDIR MARK Non-Formulary Medication 500 mg 03/03/19 14:00 Mesalamine [Pentasa] PO TID [facility] Oxycodone/Acetaminophen 2 combo 03/02/19 23:30 03/05/19 11:01 Percocet 5/325 - PO 2 combo BID [facility] Administration Pancrelipase 1 cap 03/03/19 08:00 03/05/19 11:00 Stacy Hackett 36,000 Units Capsule PO 1 cap TIDCM MARK Administration Pantoprazole Sodium 20 mg 03/03/19 10:00 03/05/19 11:00 Protonix - PO 20 mg DAILY [facility] Administration Polyethylene Glycol 17 gm 03/03/19 10:00 03/05/19 11:09 Miralax (For Daily Use) - PO Not Given BID [facility] Rosuvastatin Calcium 20 mg 03/03/19 22:00 03/04/19 23:15 Crestor - PO 20 mg HS [facility] Administration Senna/Docusate Sodium 1 tablet 03/03/19 10:00 03/05/19 10:59 Pericolace - PO 1 tablet DAILY [facility] Administration Sodium Zirconium Cyclosilicate 10 gm 03/05/19 15:30 Lokelma PO 03/06/19 10:01 DAILY [facility] Tamsulosin HCl 0.4 mg 03/03/19 08:30 03/05/19 08:58 Flomax - PO 0.4 mg DAILY@0830 [facility] Administration Tapentadol 150 mg 03/03/19 10:00 03/05/19 10:56 Nucynta Er - PO 150 mg BID [facility] Administration Tiotropium Pauline 2 puff 03/02/19 13:15 03/05/19 11:05 Spiriva Respimat IH 2 puff DAILY MARK Administration 1. Acute kidney injury 2. CHF with diastolic dysfunction 3. COPD 4. Chronic GRACIE 5. CAD s/p CABG 6. DM 7. Hyperlipidemia 8. hyperkalemia Plan - will give lokelma - repeat labs in am - hold diuretics for now - renal function is worsening - held lasix yesterday, will hold today - hold chlorthalidone
[2019-03-05] MEDS: SODIUM ZIRCONIUM CYCLOSILICATE (LOKELMA) 5 GM PACKET PO SCH (17:00)
[2019-03-05] MEDS ORDERED: oxyCODONE/APAP 1 EACH - MUST ORDER COMBO PRODUCT NR ONE (20:58)
[2019-03-05] MEDS ORDERED: oxyCODONE HCL 5 MG TABLET PO ONE (21:15)
[2019-03-05] MEDS ORDERED: ACETAMINOPHEN 325 MG TABLET (FP) PO ONE (21:15)
[2019-03-05] MEDS: MONTELUKAST NA 10 MG TABLET PO SCH (21:24)
[2019-03-05] MEDS: ROSUVASTATIN CA 20 MG TABLET (FP) PO SCH (21:24)
[2019-03-05] MEDS: AMITRIPTYLINE HCL 75 MG TABLET PO SCH (21:24)
[2019-03-05] MEDS: EZETIMIBE 10 MG TABLET (FP) PO SCH (21:25)
[2019-03-06] MEDS: ALBUTEROL SO4 0.083% IH SOL 2.5 MG/3 ML VIAL.NEB. NEB PRN ×2 (03:55→11:11)
[2019-03-06] MEDS: GABAPENTIN 400 MG CAPSULE (FP) PO SCH ×3 (05:13→21:39)
[2019-03-06] MEDS: HEPARIN NA (PORCINE) 5,000 UNITS/ML 1ML VIAL SQ SCH ×3 (05:13→21:39)
[2019-03-06] MEDS: INSULIN SLIDING SCALE (NOVOLOG) 1 VIAL SQ SCH ×4 (06:10→23:00)
[2019-03-06] MEDS: ARFORMOTEROL TARTRATE 15 MCG/2 ML VIAL NEB SCH ×2 (07:19→21:36)
[2019-03-06 07:35] LABS: HEMATOCRIT 36.9 % (35.4-49); HEMOGLOBIN 12.1 GM/dL (11.7-16.9); MCH 26.9 pg (25.7-33.7); MCHC 32.7 g/dl (32.0-35.9); MEAN CELL VOLUME 82.2 fl (80-96); MEAN PLT VOLUME 7.2 fl (7.5-11.1); PLATELET COUNT 303 K/MM3 (134-434); RBC 4.49 M/mm3 (4.00-5.60); RDW 15.8 % (11.9-15.9); WHITE BLOOD COUNT 9.9 K/mm3 (4.0-10.0)
[2019-03-06 07:48] LABS: ALBUMIN 3.6 g/dl (3.4-5.0); BILIRUBIN,TOTAL 0.5 mg/dL (0.2-1); BLOOD UREA NITROGEN 60.5 mg/dL (7-18); CALCIUM 9.3 mg/dL (8.5-10.1); CREATININE 2.1 mg/dL (0.55-1.3); TOT PROT 6.7 g/dl (6.4-8.2)
--- NOTE | 2019-03-06 08:12 | PN ---
Progress Note, Physician History of Present Illness: 63 year old black man with a significant past medical history of CAD s/p DE, stents x6 (most recently 12/2015), CABG, HTN, diastolic CHF, HLD, Chronic Pancreatitis, Chronic Back pain, SBO, Incarcerated Hernia s/p repair x2 (September 2017), H.Pylori, BPH, COPD, Bronchial Asthma, Tracheostomy in place (unplugs when sleeping for GRACIE),and anxiety, who presents with worsening shortness of breath for 2-3 weeks, 1 week of productive cough of yellow phlegm and 2-3 days of chest pain and bilateral leg swelling. He reports his chest pain is L sided pressure like 5-6/10 intermittent radiating to the side and back. He admits to lightheadedness but denies nausea or diaphoresis. He staties that he has taken prednisone 60mg everday for 3 days and doubled his lasix to 80mg a day for 4 days. He reports his symptoms feel like a CHF exacerbation. He took albuterol and breathing treatment prior to arrival. He has no other complaints at bedside. As discussed with his web merchant, Dr. Bola Elaine, today, he has had multiple admissions for chest pain since the last coronary stent; these have been negative for DE. (07/2016 dobutamine stress MIBI at [facility] : small, mild periinfarct inferior wall ischemia; pt may have had a more recent stress MIBI or angiogram as an outpatient). - Current Medication List Current Medications: Active Medications Al Hydroxide/Mg Hydroxide (Mylanta Suspension -) 30 ml PO Q6H PRN PRN Reason: DYSPEPSIA Albuterol Sulfate (Ventolin 0.083% Nebulizer Soln -) 1 amp NEB Q4H PRN PRN Reason: WHEEZING Last Admin: 03/06/19 03:55 Dose: 1 amp Amitriptyline HCl (Elavil -) 75 mg PO HS [facility] Last Admin: 03/05/19 21:24 Dose: 75 mg Amlodipine Besylate (Norvasc -) 10 mg PO DAILY [facility] Last Admin: 03/05/19 11:00 Dose: 10 mg Arformoterol Tartrate (Brovana (Restricted To Pulmonology/Resp) -) 1 amp NEB RBID [facility] Last Admin: 03/06/19 07:19 Dose: 1 amp Aspirin (Ecotrin -) 81 mg PO DAILY [facility] Last Admin: 03/05/19 10:59 Dose: 81 mg Budesonide/Formoterol Fumarate (Symbicort 160/4.5mcg -) 1 puff IH BID [facility] Last Admin: 03/05/19 21:25 Dose: 1 puff Clopidogrel Bisulfate (Plavix -) 75 mg PO DAILY [facility] Last Admin: 03/05/19 10:56 Dose: 75 mg Ezetimibe (Zetia -) 10 mg PO [facility] Last Admin: 03/05/19 21:25 Dose: 10 mg Finasteride (Proscar -) 5 mg PO DAILY [facility] Last Admin: 03/05/19 10:56 Dose: 5 mg Gabapentin (Neurontin -) 800 mg PO TID [facility] Last Admin: 03/06/19 05:13 Dose: 800 mg Heparin Sodium (Porcine) (Heparin -) 5,000 unit SQ TID [facility] Last Admin: 03/06/19 05:13 Dose: 5,000 unit Hydromorphone HCl (Dilaudid -) 4 mg PO Q6H PRN PRN Reason: PAIN LEVEL 7 - 10 Last Admin: 03/06/19 05:12 Dose: 4 mg Insulin Aspart (Novolog Vial Sliding Scale -) 1 vial SQ [facility]; Protocol Last Admin: 03/06/19 06:10 Dose: Not Given Methylprednisolone Sodium Succinate (Solu-Medrol -) 40 mg IVPUSH Q12H [facility] Last Admin: 03/05/19 21:24 Dose: 40 mg Montelukast Sodium (Singulair -) 10 mg PO [facility] Last Admin: 03/05/19 21:24 Dose: 10 mg Non-Formulary Medication (Insulin Pump Controller [Snap Insulin Pump Controller] ) 1 each MC ASDIR [facility] Non-Formulary Medication (Mesalamine [Pentasa]) 500 mg PO TID [facility] Pancrelipase (Creon Dr 36,000 Units Capsule) 1 cap PO TIDCM [facility] Last Admin: 03/05/19 16:52 Dose: 1 cap Pantoprazole Sodium (Protonix -) 20 mg PO DAILY [facility] Last Admin: 03/05/19 11:00 Dose: 20 mg Polyethylene Glycol (Miralax (For Daily Use) -) 17 gm PO BID [facility] Last Admin: 03/05/19 21:25 Dose: 17 gm Rosuvastatin Calcium (Crestor -) 20 mg PO [facility] Last Admin: 03/05/19 21:24 Dose: 20 mg Senna/Docusate Sodium (Pericolace -) 1 tablet PO DAILY [facility] Last Admin: 03/05/19 10:59 Dose: 1 tablet Sodium Zirconium Cyclosilicate (Lokelma) 10 gm PO DAILY [facility] Stop: 03/06/19 10:01 Last Admin: 03/05/19 17:00 Dose: 10 gm Tamsulosin HCl (Flomax -) 0.4 mg PO DAILY@0830 [facility] Last Admin: 03/05/19 08:58 Dose: 0.4 mg Tapentadol (Nucynta Er -) 150 mg PO BID [facility] Last Admin: 03/05/19 21:23 Dose: 150 mg Tiotropium [place] (Spiriva Respimat) 2 puff IH DAILY [facility] Last Admin: 03/05/19 11:05 Dose: 2 puff - Objective Vital Signs: Vital Signs Temperature 98.0 F 03/06/19 05:36 Pulse Rate 91 H 03/06/19 06:10 Respiratory Rate 20 03/06/19 06:10 Blood Pressure 150/85 03/06/19 06:10 O2 Sat by Pulse Oximetry (%) 98 03/05/19 21:00 Eyes: Yes: WNL, Conjunctiva Clear, EOM Intact HENT: Yes: WNL, Atraumatic, Normocephalic Neck: Yes: WNL, Supple, Trachea Midline Cardiovascular: Yes: WNL, Regular Rate and Rhythm Respiratory: Yes: WNL, Regular, CTA Bilaterally Gastrointestinal: Yes: WNL, Normal Bowel Sounds Genitourinary: Yes: WNL Musculoskeletal: Yes: WNL Extremities: Yes: WNL Edema: Yes Integumentary: Yes: WNL Neurological: Yes: WNL, Alert, Oriented ...Motor Strength: WNL Psychiatric: Yes: WNL Labs: CBC, BMP 03/06/19 06:15 Assessment/Plan - Problems (1) BMI 39.0-39.9,adult Code(s): Z68.39 - BODY MASS INDEX (BMI) 39.0-39.9, ADULT (2) Leg edema Code(s): R60.0 - LOCALIZED EDEMA (3) Diastolic CHF Assessment/Plan: Pt SOB, but no JVD or acute CXR changes. BNP 192 (was as high as 1,507 last year). Increasing BUN/Cr. Plan: off furosemide. 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 Code(s): I50.30 - UNSPECIFIED DIASTOLIC (CONGESTIVE) HEART FAILURE (4) Anxiety Code(s): F41.9 - ANXIETY DISORDER, UNSPECIFIED (5) Opiate dependence Assessment/Plan: Will require long-term help, ideally, for pain management, psychological counseling, and gradual weaning from opiates. Code(s): F11.20 - OPIOID DEPENDENCE, UNCOMPLICATED (6) Renal insufficiency Assessment/Plan: avoid overzealous diuresis. F/u BUN/Cr (Cr 1.1 on 07/2018; on this admission, it was initially 1.3; now 2.1) ), Is and Os, daily weight electrolytes (on chlorthalidone, furosemide, ACEI) Not in acute CHF. Recommend: Stop furosemide. Code(s): N28.9 - DISORDER OF KIDNEY AND URETER, UNSPECIFIED (7) HTN (hypertension) Code(s): I10 - ESSENTIAL (PRIMARY) HYPERTENSION (8) Hyperlipidemia Code(s): E78.5 - HYPERLIPIDEMIA, UNSPECIFIED (9) Hx of heart artery stent Code(s): Z95.5 - PRESENCE OF CORONARY ANGIOPLASTY IMPLANT AND GRAFT (10) COPD exacerbation Code(s): J44.1 - CHRONIC OBSTRUCTIVE PULMONARY DISEASE W (ACUTE) EXACERBATION (11) Atypical chest pain
--- NOTE | 2019-03-06 08:15 | EKG ---
Test Reason : Blood Pressure : / mmHG Vent. Rate : 091 BPM Atrial Rate : 091 BPM P-R Int : 146 ms QRS Dur : 090 ms QT Int : 346 ms P-R-T Axes : 041 008 052 degrees QTc Int : 425 ms SINUS RHYTHM WITH PREMATURE ATRIAL COMPLEXES OTHERWISE NORMAL ECG WHEN COMPARED WITH ECG OF 03-MAR-2019 10:17, PREMATURE ATRIAL COMPLEXES ARE NOW PRESENT Confirmed by SHANTEL BULLARD, ISABEL ([id number]) on 03/06/2019 8:15:41 AM Referred By: Melissa THOMPSON Confirmed By:ISABEL FUNES MD
[2019-03-06] MEDS: LIPASE/PROTEASE/AMYLASE 36,000 UNIT CAPSULE PO SCH ×3 (08:53→17:31)
[2019-03-06] MEDS: TAMSULOSIN HCL 0.4 MG CAP PO SCH (08:53)
[2019-03-06] MEDS: CLOPIDOGREL BISULFATE 75 MG TABLET (FP) PO SCH (09:39)
[2019-03-06] MEDS: FINASTERIDE 5 MG TABLET (FP) PO SCH (09:40)
[2019-03-06] MEDS: ASPIRIN COATED 81 MG TABLET.EC PO SCH (09:40)
[2019-03-06] MEDS: methylPREDNISolone NA SUCC 40 MG/1 ML VIAL IVPUSH SCH ×2 (09:41→21:43)
[2019-03-06] MEDS: amLODIPine BESYLATE 10 MG TABLET (FP) PO SCH (09:41)
[2019-03-06] MEDS: TAPENTADOL HCL 50 MG TAB.ER.12H PO SCH ×2 (09:41→21:39)
[2019-03-06] MEDS: POLYETHYLENE GLYCOL 3350 119 GM BTL PO SCH ×2 (09:41→22:54)
[2019-03-06] MEDS: SODIUM ZIRCONIUM CYCLOSILICATE (LOKELMA) 5 GM PACKET PO SCH (09:41)
[2019-03-06] MEDS: PANTOPRAZOLE 20 MG TABLET (FP) PO SCH (09:41)
[2019-03-06] MEDS: SENNOSIDES/DOCUSATE COMBO (SENNA PLUS) TABLET (UD) PO SCH (09:42)
[2019-03-06] MEDS: TIOTROPIUM BROMIDE 2.5 MCG (SPIRIVA) RESPIMAT INHALER IH SCH (09:43)
[2019-03-06] MEDS: BUDESONIDE/FORMETEROL FUMARATE 160/4.5 mcg INHALER IH SCH ×2 (09:43→21:41)
--- NOTE | 2019-03-06 12:15 | PN ---
Progress Note, Physician History of Present Illness: PULMONARY ALERT,NO DISTRESS,LESS CONGESTION - Current Medication List Current Medications: Active Medications Al Hydroxide/Mg Hydroxide (Mylanta Suspension -) 30 ml PO Q6H PRN PRN Reason: DYSPEPSIA Albuterol Sulfate (Ventolin 0.083% Nebulizer Soln -) 1 amp NEB Q4H PRN PRN Reason: WHEEZING Last Admin: 03/06/19 11:11 Dose: 1 amp Amitriptyline HCl (Elavil -) 75 mg PO HS [facility] Last Admin: 03/05/19 21:24 Dose: 75 mg Amlodipine Besylate (Norvasc -) 10 mg PO DAILY [facility] Last Admin: 03/06/19 09:41 Dose: 10 mg Arformoterol Tartrate (Brovana (Restricted To Pulmonology/Resp) -) 1 amp NEB RBID [facility] Last Admin: 03/06/19 07:19 Dose: 1 amp Aspirin (Ecotrin -) 81 mg PO DAILY [facility] Last Admin: 03/06/19 09:40 Dose: 81 mg Budesonide/Formoterol Fumarate (Symbicort 160/4.5mcg -) 1 puff IH BID [facility] Last Admin: 03/06/19 09:43 Dose: 1 puff Clopidogrel Bisulfate (Plavix -) 75 mg PO DAILY [facility] Last Admin: 03/06/19 09:39 Dose: 75 mg Ezetimibe (Zetia -) 10 mg PO HS [facility] Last Admin: 03/05/19 21:25 Dose: 10 mg Finasteride (Proscar -) 5 mg PO DAILY [facility] Last Admin: 03/06/19 09:40 Dose: 5 mg Gabapentin (Neurontin -) 800 mg PO TID [facility] Last Admin: 03/06/19 05:13 Dose: 800 mg Heparin Sodium (Porcine) (Heparin -) 5,000 unit SQ TID [facility] Last Admin: 03/06/19 05:13 Dose: 5,000 unit Hydromorphone HCl (Dilaudid -) 4 mg PO Q6H PRN PRN Reason: PAIN LEVEL 7 - 10 Last Admin: 03/06/19 11:49 Dose: 4 mg Insulin Aspart (Novolog Vial Sliding Scale -) 1 vial SQ [facility]; Protocol Last Admin: 03/06/19 11:13 Dose: Not Given Methylprednisolone Sodium Succinate (Solu-Medrol -) 40 mg IVPUSH Q12H [facility] Last Admin: 03/06/19 09:41 Dose: 40 mg Montelukast Sodium (Singulair -) 10 mg PO [facility] Last Admin: 03/05/19 21:24 Dose: 10 mg Non-Formulary Medication (Insulin Pump Controller [Snap Insulin Pump Controller] ) 1 each MC ASDIR [facility] Non-Formulary Medication (Mesalamine [Pentasa]) 500 mg PO TID [facility] Pancrelipase (Creon Dr 36,000 Units Capsule) 1 cap PO TIDCM [facility] Last Admin: 03/06/19 11:47 Dose: 1 cap Pantoprazole Sodium (Protonix -) 20 mg PO DAILY [facility] Last Admin: 03/06/19 09:41 Dose: 20 mg Polyethylene Glycol (Miralax (For Daily Use) -) 17 gm PO BID [facility] Last Admin: 03/06/19 09:41 Dose: 17 gm Rosuvastatin Calcium (Crestor -) 20 mg PO [facility] Last Admin: 03/05/19 21:24 Dose: 20 mg Senna/Docusate Sodium (Pericolace -) 1 tablet PO DAILY [facility] Last Admin: 03/06/19 09:42 Dose: 1 tablet Tamsulosin HCl (Flomax -) 0.4 mg PO DAILY@0830 [facility] Last Admin: 03/06/19 08:53 Dose: 0.4 mg Tapentadol (Nucynta Er -) 150 mg PO BID [facility] Last Admin: 03/06/19 09:41 Dose: 150 mg Tiotropium [place] (Spiriva Respimat) 2 puff IH DAILY [facility] Last Admin: 03/06/19 09:43 Dose: 2 puff - Objective Vital Signs: Vital Signs Temperature 98.0 F 03/06/19 05:36 Pulse Rate 91 H 03/06/19 06:10 Respiratory Rate 20 03/06/19 06:10 Blood Pressure 150/85 03/06/19 06:10 O2 Sat by Pulse Oximetry (%) 98 03/05/19 21:00 Constitutional: Yes: Well Nourished, Calm Eyes: Yes: WNL HENT: Yes: WNL Neck: Yes: Supple (trach) Cardiovascular: Yes: Regular Rate and Rhythm, S1, S2 Respiratory: Yes: Wheezes (FEW SCATTERED WHEEZES) Gastrointestinal: Yes: Normal Bowel Sounds, Soft Extremities: Yes: WNL Edema: Yes Labs: CBC, BMP 03/06/19 06:15 03/06/19 06:15 Problem List - Problems (1) BMI 39.0-39.9,adult Code(s): Z68.39 - BODY MASS INDEX (BMI) 39.0-39.9, ADULT (2) Leg edema Code(s): R60.0 - LOCALIZED EDEMA (3) SOB (shortness of breath) Code(s): R06.02 - SHORTNESS OF BREATH (4) HTN (hypertension) Code(s): I10 - ESSENTIAL (PRIMARY) HYPERTENSION (5) Hx of heart artery stent Code(s): Z95.5 - PRESENCE OF CORONARY ANGIOPLASTY IMPLANT AND GRAFT (6) ASHD (arteriosclerotic heart disease) Code(s): I25.10 - ATHSCL HEART DISEASE OF [place] CORONARY ARTERY W/O ANG PCTRS (7) COPD (chronic obstructive pulmonary disease) Code(s): J44.9 - CHRONIC OBSTRUCTIVE PULMONARY DISEASE, UNSPECIFIED (8) Diabetes mellitus Code(s): E11.9 - TYPE 2 DIABETES MELLITUS WITHOUT COMPLICATIONS Qualifiers: Diabetes mellitus type: type 2 (9) GRACIE (obstructive sleep apnea) Code(s): G47.33 - OBSTRUCTIVE SLEEP APNEA (ADULT) (PEDIATRIC) (10) Tracheostomy in place Code(s): Z98.89 - OTHER SPECIFIED POSTPROCEDURAL STATES * DO NOT USE * (11) Obesity Code(s): E66.9 - OBESITY, UNSPECIFIED (12) Asthma Code(s): J45.909 - UNSPECIFIED ASTHMA, UNCOMPLICATED Qualifiers: Asthma severity: unspecified severity Assessment/Plan Problem List - Problems (1) COPD exacerbation Code(s): J44.1 - CHRONIC OBSTRUCTIVE PULMONARY DISEASE W (ACUTE) EXACERBATION Assessment/Plan Acute COPD Exacerbation improving Acute on Chronic Diastolic Heart Failure Chronic Hypoxic Respiratory Failure Obstructive Sleep Apnea s/p Tracheostomy CAD s/p CABG HTN DM Hyperlipidemia Spinal Stenosis Chronic Pain Syndrome Opiate Dependence Acute on chronic kidney disease - medrol same dose - inhaled bronchodilators standing and PRN - O2 to keep Spo2 >90% - azithromycin - monitor urine output, creatinine - uncap tracheostomy when sleeping - dilaudid 4mg for breakthrough pain - DVT prophylaxis DR VANESSA
--- NOTE | 2019-03-06 12:43 | PN ---
Progress Note, Physician Chief Complaint: patient seen and examined wants iv dilaudid - Current Medication List Current Medications: Active Medications Al Hydroxide/Mg Hydroxide (Mylanta Suspension -) 30 ml PO Q6H PRN PRN Reason: DYSPEPSIA Albuterol Sulfate (Ventolin 0.083% Nebulizer Soln -) 1 amp NEB Q4H PRN PRN Reason: WHEEZING Last Admin: 03/06/19 11:11 Dose: 1 amp Amitriptyline HCl (Elavil -) 75 mg PO HS [facility] Last Admin: 03/05/19 21:24 Dose: 75 mg Amlodipine Besylate (Norvasc -) 10 mg PO DAILY [facility] Last Admin: 03/06/19 09:41 Dose: 10 mg Arformoterol Tartrate (Brovana (Restricted To Pulmonology/Resp) -) 1 amp NEB RBID [facility] Last Admin: 03/06/19 07:19 Dose: 1 amp Aspirin (Ecotrin -) 81 mg PO DAILY [facility] Last Admin: 03/06/19 09:40 Dose: 81 mg Budesonide/Formoterol Fumarate (Symbicort 160/4.5mcg -) 1 puff IH BID [facility] Last Admin: 03/06/19 09:43 Dose: 1 puff Clopidogrel Bisulfate (Plavix -) 75 mg PO DAILY [facility] Last Admin: 03/06/19 09:39 Dose: 75 mg Ezetimibe (Zetia -) 10 mg PO HS [facility] Last Admin: 03/05/19 21:25 Dose: 10 mg Finasteride (Proscar -) 5 mg PO DAILY [facility] Last Admin: 03/06/19 09:40 Dose: 5 mg Gabapentin (Neurontin -) 800 mg PO TID [facility] Last Admin: 03/06/19 05:13 Dose: 800 mg Heparin Sodium (Porcine) (Heparin -) 5,000 unit SQ TID [facility] Last Admin: 03/06/19 05:13 Dose: 5,000 unit Hydromorphone HCl (Dilaudid -) 4 mg PO Q6H PRN PRN Reason: PAIN LEVEL 7 - 10 Last Admin: 03/06/19 11:49 Dose: 4 mg Insulin Aspart (Novolog Vial Sliding Scale -) 1 vial SQ [facility]; Protocol Last Admin: 03/06/19 11:13 Dose: Not Given Methylprednisolone Sodium Succinate (Solu-Medrol -) 40 mg IVPUSH Q12H [facility] Last Admin: 03/06/19 09:41 Dose: 40 mg Montelukast Sodium (Singulair -) 10 mg PO [facility] Last Admin: 03/05/19 21:24 Dose: 10 mg Non-Formulary Medication (Insulin Pump Controller [Snap Insulin Pump Controller] ) 1 each MC ASDIR [facility] Non-Formulary Medication (Mesalamine [Pentasa]) 500 mg PO TID [facility] Pancrelipase (Creon Dr 36,000 Units Capsule) 1 cap PO TIDCM [facility] Last Admin: 03/06/19 11:47 Dose: 1 cap Pantoprazole Sodium (Protonix -) 20 mg PO DAILY [facility] Last Admin: 03/06/19 09:41 Dose: 20 mg Polyethylene Glycol (Miralax (For Daily Use) -) 17 gm PO BID [facility] Last Admin: 03/06/19 09:41 Dose: 17 gm Rosuvastatin Calcium (Crestor -) 20 mg PO [facility] Last Admin: 03/05/19 21:24 Dose: 20 mg Senna/Docusate Sodium (Pericolace -) 1 tablet PO DAILY [facility] Last Admin: 03/06/19 09:42 Dose: 1 tablet Tamsulosin HCl (Flomax -) 0.4 mg PO DAILY@0830 [facility] Last Admin: 03/06/19 08:53 Dose: 0.4 mg Tapentadol (Nucynta Er -) 150 mg PO BID [facility] Last Admin: 03/06/19 09:41 Dose: 150 mg Tiotropium [place] (Spiriva Respimat) 2 puff IH DAILY [facility] Last Admin: 03/06/19 09:43 Dose: 2 puff - Objective Vital Signs: Vital Signs Temperature 98.0 F 03/06/19 05:36 Pulse Rate 91 H 03/06/19 06:10 Respiratory Rate 20 03/06/19 06:10 Blood Pressure 150/85 03/06/19 06:10 O2 Sat by Pulse Oximetry (%) 98 03/05/19 21:00 Constitutional: Yes: Calm Cardiovascular: Yes: Regular Rate and Rhythm, S1, S2 Respiratory: Yes: On Nasal O2, Wheezes Gastrointestinal: Yes: Normal Bowel Sounds, Soft Edema: Yes Edema: LLE: 2+, RLE: 2+ Neurological: Yes: Alert, Oriented Labs: CBC, BMP 03/06/19 06:15 03/06/19 06:15 Problem List - Problems (1) COPD (chronic obstructive pulmonary disease) Assessment/Plan: inhaled bronchodilators oxygen keep O2>90 medrol same dose today Code(s): J44.9 - CHRONIC OBSTRUCTIVE PULMONARY DISEASE, UNSPECIFIED (2) Intractable low back pain Assessment/Plan: pain control with oral meds pain consult dr leung/ dr lion pending PT evaluation noted Code(s): M54.5 - LOW BACK PAIN (3) ASHD (arteriosclerotic heart disease) Assessment/Plan: cardiology consult EKG reviewed 3 Ce negative will need to hold aspirin and plavix for 5 days prior to surgery will have cardiology clear the patient Code(s): I25.10 - ATHSCL HEART DISEASE OF [place] CORONARY ARTERY W/O ANG PCTRS (4) Leg edema Assessment/Plan: iv lasix bid now held given inc creatinine monitor renal function Code(s): R60.0 - LOCALIZED EDEMA (5) Diabetes mellitus Assessment/Plan: insulin pump Code(s): E11.9 - TYPE 2 DIABETES MELLITUS WITHOUT COMPLICATIONS Qualifiers: Diabetes mellitus type: type 2 (6) LOVE (acute kidney injury) Assessment/Plan: hold lasix stop all nephrotoxins Code(s): N17.9 - ACUTE KIDNEY FAILURE, UNSPECIFIED
--- NOTE | 2019-03-06 17:28 | PN ---
Progress Note (short form) - Note Progress Note: Renal follow up for LOVE on CKD Pt seen and examined at the bedside awake and alert reports leg weakness and back pain no sob, cp, abd pain, fever or chills making urine Vital Signs Temperature 98.4 F 03/06/19 15:35 Pulse Rate 105 H 03/06/19 15:35 Respiratory Rate 18 03/06/19 15:35 Blood Pressure 157/83 03/06/19 15:35 O2 Sat by Pulse Oximetry (%) 95 03/06/19 10:00 Intake & Output 03/03/19 03/04/19 03/05/19 03/06/19 23:59 23:59 23:59 23:59 Intake Total 1210 1115 2245 500 Output Total 900 1300 900 Balance 310 -185 1345 500 Weight 134.717 kg 136.305 kg 138.346 kg NAD RRR + wheezing, no rales obese, NT/ND abd trace LE edema CBC, BMP 03/06/19 06:15 03/06/19 06:15 Current Medications Al Hydroxide/Mg Hydroxide (Mylanta Suspension -) 30 ml PO Q6H PRN PRN Reason: DYSPEPSIA Albuterol Sulfate (Ventolin 0.083% Nebulizer Soln -) 1 amp NEB Q4H PRN PRN Reason: WHEEZING Last Admin: 03/06/19 11:11 Dose: 1 amp Amitriptyline HCl (Elavil -) 75 mg PO HS [facility] Last Admin: 03/05/19 21:24 Dose: 75 mg Amlodipine Besylate (Norvasc -) 10 mg PO DAILY [facility] Last Admin: 03/06/19 09:41 Dose: 10 mg Arformoterol Tartrate (Brovana (Restricted To Pulmonology/Resp) -) 1 amp NEB RBID [facility] Last Admin: 03/06/19 07:19 Dose: 1 amp Aspirin (Ecotrin -) 81 mg PO DAILY [facility] Last Admin: 03/06/19 09:40 Dose: 81 mg Budesonide/Formoterol Fumarate (Symbicort 160/4.5mcg -) 1 puff IH BID [facility] Last Admin: 03/06/19 09:43 Dose: 1 puff Clopidogrel Bisulfate (Plavix -) 75 mg PO DAILY [facility] Last Admin: 03/06/19 09:39 Dose: 75 mg Ezetimibe (Zetia -) 10 mg PO [facility] Last Admin: 03/05/19 21:25 Dose: 10 mg Finasteride (Proscar -) 5 mg PO DAILY [facility] Last Admin: 03/06/19 09:40 Dose: 5 mg Gabapentin (Neurontin -) 800 mg PO TID [facility] Last Admin: 03/06/19 14:39 Dose: 800 mg Heparin Sodium (Porcine) (Heparin -) 5,000 unit SQ TID [facility] Last Admin: 03/06/19 14:40 Dose: 5,000 unit Hydromorphone HCl (Dilaudid -) 4 mg PO Q6H PRN PRN Reason: PAIN LEVEL 7 - 10 Last Admin: 03/06/19 11:49 Dose: 4 mg Insulin Aspart (Novolog Vial Sliding Scale -) 1 vial SQ [facility]; Protocol Last Admin: 03/06/19 11:13 Dose: Not Given Methylprednisolone Sodium Succinate (Solu-Medrol -) 40 mg IVPUSH Q12H [facility] Last Admin: 03/06/19 09:41 Dose: 40 mg Montelukast Sodium (Singulair -) 10 mg PO [facility] Last Admin: 03/05/19 21:24 Dose: 10 mg Non-Formulary Medication (Insulin Pump Controller [Snap Insulin Pump Controller] ) 1 each MC ASDIR [facility] Non-Formulary Medication (Mesalamine [Pentasa]) 500 mg PO TID [facility] Pancrelipase (Creon Dr 36,000 Units Capsule) 1 cap PO TIDCM [facility] Last Admin: 03/06/19 11:47 Dose: 1 cap Pantoprazole Sodium (Protonix -) 20 mg PO DAILY [facility] Last Admin: 03/06/19 09:41 Dose: 20 mg Polyethylene Glycol (Miralax (For Daily Use) -) 17 gm PO BID [facility] Last Admin: 03/06/19 09:41 Dose: 17 gm Rosuvastatin Calcium (Crestor -) 20 mg PO [facility] Last Admin: 03/05/19 21:24 Dose: 20 mg Senna/Docusate Sodium (Pericolace -) 1 tablet PO DAILY [facility] Last Admin: 03/06/19 09:42 Dose: 1 tablet Tamsulosin HCl (Flomax -) 0.4 mg PO DAILY@0830 [facility] Last Admin: 03/06/19 08:53 Dose: 0.4 mg Tapentadol (Nucynta Er -) 150 mg PO BID [facility] Last Admin: 03/06/19 09:41 Dose: 150 mg Tiotropium [place] (Spiriva Respimat) 2 puff IH DAILY [facility] Last Admin: 03/06/19 09:43 Dose: 2 puff 63 year old gentleman with history of hypertension, DM, hyperlipidemia, GRACIE s/ p trach, CAD s/p CABG, CHF with diastolic dysfunction who presented with worsening SOB and admitted for CHF + COPD exacerbation with Cr of 2. 1. Acute kidney injury secondary renal hypoprofusion in setting of cardic dysfunction vs. intravascular volume depletion vs. ATN vs. AIN vs. outflow obstruction 2. CHF with diastolic dysfunction 3. COPD 4. Chronic GRACIE 5. CAD s/p CABG 6. DM 7. Hyperlipidemia Renal function stable at this time. Currently off diuretics. Renal imaging w/o signs of obstruction Urine studies w/o suggestion of acute GN continue to trend renal function and electrolytes daily Steroid taper as per Pulmonary Thank you Az Nelson DO
--- NOTE | 2019-03-06 18:03 | CON.GI ---
Consult Consult Specialty:: Gastroenterology Reason for Consultation:: Fatty liver, possible gallstone - History of Present Illness History of Present Illness: 63yo male h/o CAD s/p PCI on asa/plavix, asthma/COPD, GRACIE s/p tracheostomy, DM on insulin pump, chronic pancreatitis, chronic back pain presents with increased sob, neck and back pain asked to evaluate for fatty liver and possible gallstones. Pt reports increased shortness of breath prompting hospitalization being treated for COPD exacerbation. Also reporting chronic neck, back and abdominal pain. States he previously followed with Dr. Wu (last note in EMR in 2015) and has had prior EGD and colonoscopies (no reports available for review) . Reports being diagnosed with chronic pancreatitis and was supposed to follow up at [place] for possible EUS however missed appt (details unclear, records not available). Reports chronic periumbilical pain of varying severity for several years, denies n/v. Also reporting generalized pain on narcotics at home. has been on creon takes inconsistently. Appetite ok, tolerating po diet well. Alternating loose stool and constipation also reported, no blood. No known family h/o GI malignancy. Denies etoh or smoking. - History Source History Provided By: Patient - Past Medical History DIRECTOR POST: Yes: Peripheral Neuropathy (s/p extensive cervical spine surgery post injury with leg weakness and poor balance: patient much improved post extensive physical therapy and now walks with a walker), Other (chronic pain syndrome with mulit-level spine disease managed by PM and his spine surgeon. Planned EMG/ NCVs studies and evaluation of motor weakness in process by treating neurologist Dr. Singh) Cardio/Vascular: Yes: CAD (Last stents placed x 2 last year per patient), CHF (s /p AL several years ago; s/p stenting. mild CHF in the past.), HTN, Hyperlipdemia, AL, Pulmonary Hypertension Pulmonary: Yes: Asthma, COPD, Sleep Apnea Gastrointestinal: Yes: Constipation, Pancreatitis (? history of chronic pancreatitis with episodes of acute pancreatitis), Other (FECAL INCONTINENCE SECONDARY TO OVERFLOW followed by Dr. Abdoulaye Wu, IPMN, PANCREATITIS . HAD EPISODE OF ISCHEMIC COLITIS LAST ADMISSION) Renal/: Yes: BPH Psych: Yes: Depression Musculoskeletal: Yes: Chronic low back pain (has back stimulator), Other ( CHRONIC NECK PAIN s/p Lumbar and Cervical fusion ) Endocrine: Yes: Diabetes Mellitus (has insulin pump) - Past Surgical History Past Surgical History: Yes: Breast Biopsy, Colonoscopy, Laminectomy, Stent (1 non eluting, 5 eluting) - Alcohol/Substance Use Hx Alcohol Use: No History of Substance Use: reports: None, Prescription (opiates for chronic pain post cervical spine surgery. 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 History of Recent Travel: No Home Medications - Allergies Allergies/Adverse Reactions: Allergies Allergy/AdvReac Type Severity Reaction Status Date / Time shellfish derived Allergy Severe Verified 03/01/19 18:27 Tetracyclines Allergy Severe Verified 03/01/19 18:27 - Home Medications Home Medications: Ambulatory Orders Albuterol Sulfate Inhaler - [Ventolin HFA Inhaler -] 1 - 2 inh PO Q4H PRN Arformoterol Tartrate [Brovana] 15 mcg IH ASDIR 08/18/17 Aspirin [Aspirin EC] 81 mg PO DAILY 08/18/17 Clopidogrel Bisulfate [Plavix] 75 mg PO DAILY 08/18/17 Dexlansoprazole [Dexilant] 30 mg PO DAILY 08/18/17 Ezetimibe [Zetia -] 10 mg PO HS 08/18/17 Furosemide [Lasix] 40 mg PO DAILY 08/18/17 Insulin Pump Controller [Snap Insulin Pump Controller] 1 each ASDIR 08/18/17 Montelukast Sodium [Singulair] 10 mg PO DAILY 08/18/17 Tiotropium [place] [Spiriva] 1 puff IH DAILY 08/18/17 Finasteride [Proscar -] 5 mg PO DAILY tablet 09/20/17 Lipase/Protease/Amylase [Stacy Hackett 36,000 Units Capsule] 1 cap PO TIDCM capsule. 09/20/17 Ramipril [Altace] 10 mg PO DAILY capsule 09/20/17 Tamsulosin HCl [Flomax -] 0.4 mg PO DAILY@0830 cap.er.24h 09/20/17 Amitriptyline HCl [Elavil -] 75 mg PO DAILY 03/30/18 Gabapentin 800 mg PO TID 03/30/18 Albuterol 0.083% Nebulizer Elena [Ventolin 0.083% Nebulizer Soln -] 1 amp NEB Q8H PRN #30 amp 07/26/18 Mometasone Furoate [Asmanex 220Mcg -] 2 puff IH BID #2 inhaler 07/26/18 Mag Hydrox/Al Hydrox/Simeth [MAALOX *SUSPENSION* -] 30 ml PO Q6H PRN #1 bottle 09/27/18 Polyethylene Glycol 3350 [Miralax 119 gm Btl -] 17 gm PO BID #1 bottle 09/27/18 Sennosides/Docusate Sodium [Senna Laxative Tablet] 1 each PO DAILY #20 tablet Chlorthalidone [Hygroton -] 25 mg PO DAILY #60 tablet 10/14/18 Rosuvastatin [Crestor -] 20 mg PO HS #30 tablet 10/14/18 Amlodipine Besylate [Norvasc -] 10 mg PO DAILY 03/01/19 Arformoterol Tartrate [Brovana] 15 mcg IH DAILY 03/01/19 Budesonide/Formeterol Fumarate [SYMBICORT 160/4.5mcg -] 1 inh PO BID 03/01/19 Diazepam 5 mg PO PRN 03/01/19 HYDROmorphone [Dilaudid -] 4 mg PO Q4H 03/01/19 Lipase/Protease/Amylase [Creon Dr 36,000 Units Capsule] 1 each PO TID 03/01/19 Mesalamine [Pentasa] 500 mg PO TID 03/01/19 Ondansetron [Zofran -] 4 mg PO TID 03/01/19 Oxycodone HCl/Acetaminophen [Oxycodone-Acetaminophen 10-325] 1 each PO BID 03/01 Prednisone 60 mg PO DAILY 03/01/19 Tapentadol ER [Nucynta *ER*] 150 mg PO BID 03/01/19 Family Disease History - Family Disease History Family Disease History: Diabetes: Mother ( 58: diabetic complications), CA: Father ( 49: asbestosis), Respiratory: Brother (bronchial asthma, DVT), Other: Mother, Sister (BCA), Son (2, healthy), Daughter (1, healthy) Review of Systems - Review of Systems Cardiovascular: reports: No Symptoms Respiratory: reports: SOB, SOB on Exertion Gastrointestinal: reports: Abdominal Pain Musculoskeletal: reports: Back Pain Physical Exam-GI Vital Signs: Vital Signs Temperature 98.4 F 03/06/19 15:35 Pulse Rate 105 H 03/06/19 15:35 Respiratory Rate 18 03/06/19 15:35 Blood Pressure 157/83 03/06/19 15:35 O2 Sat by Pulse Oximetry (%) 95 03/06/19 10:00 Constitutional: Yes: Well Nourished, No Distress, Other (Appears comfortable) Cardiovascular: Yes: WNL, Regular Rate and Rhythm Respiratory: Yes: WNL, Regular, CTA Bilaterally ...Palpate: Yes: Other (Abd soft, diffusely tender on palpation, no rebound, guarding or rigidity, non distended) Labs: CBC, BMP 03/06/19 06:15 03/06/19 06:15 Imaging - Results Ultrasound: Report Reviewed Problem List - Problems (1) Elevated LFTs Assessment/Plan: 63yo male h/o CAD s/p PCI on asa/plavix, CHF, asthma/COPD, GRACIE s/p tracheostomy , DM on insulin pump, chronic pancreatitis, chronic back pain presents with increased sob, neck and back pain asked to evaluate for fatty liver and possible gallstones seen on US imaging with elevated LFTs. Predominantly hepatocellular pattern with likely multifactorial etiology in setting of possible medications (?statin recently started) vs congestive hepatopathy on background of likely underlying NAFLD. LFTs were normal in 09/2018. No clinical or biochemical features to suggest advanced liver disease or cirrhosis. -Recommend hold statin if possible -Monitor LFTs daily -Check hepatitis serologies -Continue cardio/respiratory optimization -Continue to optimize glycemic control Code(s): R94.5 - ABNORMAL RESULTS OF LIVER FUNCTION STUDIES (2) Chronic pancreatitis Assessment/Plan: Episodes of acute on chronic abdominal pain noted and alternating loose stool/ constipation. Prior MRI in 2018 revealing atrophic pancreas and multiple small cysts. Was supposed to follow up for outpatient EUS. -Continue supportive measures -Analgesia prn -Creon with meals -Will need to resume outpatient GI follow up for EUS Code(s): K86.1 - OTHER CHRONIC PANCREATITIS
[2019-03-06] MEDS ORDERED: PT OWN MED DRAWER 7, Y5N ONE (21:31)
[2019-03-06] MEDS: MONTELUKAST NA 10 MG TABLET PO SCH (21:39)
[2019-03-06] MEDS: ROSUVASTATIN CA 20 MG TABLET (FP) PO SCH (21:40)
[2019-03-06] MEDS: EZETIMIBE 10 MG TABLET (FP) PO SCH (21:41)
[2019-03-06] MEDS: AMITRIPTYLINE HCL 75 MG TABLET PO SCH (23:35)
[2019-03-07] MEDS: HEPARIN NA (PORCINE) 5,000 UNITS/ML 1ML VIAL SQ SCH ×3 (05:51→22:31)
[2019-03-07] MEDS: GABAPENTIN 400 MG CAPSULE (FP) PO SCH ×3 (05:51→22:32)
[2019-03-07] MEDS: INSULIN SLIDING SCALE (NOVOLOG) 1 VIAL SQ SCH ×3 (06:19→16:47)
[2019-03-07 06:56] LABS: BASO % 0.1 % (0-2.0); EOS % 0.1 % (0-4.5); LYMPH % 9.9 % (8-40); MCH 26.8 pg (25.7-33.7); MCHC 32.5 g/dl (32.0-35.9); MEAN CELL VOLUME 82.4 fl (80-96); MEAN PLT VOLUME 7.3 fl (7.5-11.1); MONO % 4.5 % (3.8-10.2); NEUT % 85.4 % (42.8-82.8); PLATELET COUNT 287 K/MM3 (134-434); RBC 4.49 M/mm3 (4.00-5.60); RDW 15.4 % (11.9-15.9); WHITE BLOOD COUNT 8.7 K/mm3 (4.0-10.0)
[2019-03-07 07:27] LABS: ALBUMIN 3.3 g/dl (3.4-5.0); BILIRUBIN,TOTAL 0.4 mg/dL (0.2-1); BLOOD UREA NITROGEN 53.6 mg/dL (7-18); CALCIUM 9.3 mg/dL (8.5-10.1); CREATININE 1.8 mg/dL (0.55-1.3); POTASSIUM 4.9 mmol/L (3.5-5.1); TOT PROT 6.3 g/dl (6.4-8.2)
[2019-03-07] MEDS: ARFORMOTEROL TARTRATE 15 MCG/2 ML VIAL NEB SCH ×2 (08:20→20:37)
[2019-03-07] MEDS: TAMSULOSIN HCL 0.4 MG CAP PO SCH (08:32)
[2019-03-07] MEDS: LIPASE/PROTEASE/AMYLASE 36,000 UNIT CAPSULE PO SCH ×3 (08:32→16:48)
[2019-03-07] MEDS: amLODIPine BESYLATE 10 MG TABLET (FP) PO SCH (09:22)
[2019-03-07] MEDS: methylPREDNISolone NA SUCC 40 MG/1 ML VIAL IVPUSH SCH ×2 (09:22→22:32)
[2019-03-07] MEDS: FINASTERIDE 5 MG TABLET (FP) PO SCH (09:23)
[2019-03-07] MEDS: TAPENTADOL HCL 50 MG TAB.ER.12H PO SCH ×2 (09:23→22:31)
[2019-03-07] MEDS: PANTOPRAZOLE 20 MG TABLET (FP) PO SCH (09:23)
[2019-03-07] MEDS: CLOPIDOGREL BISULFATE 75 MG TABLET (FP) PO SCH (09:23)
[2019-03-07] MEDS: ASPIRIN COATED 81 MG TABLET.EC PO SCH (09:23)
[2019-03-07] MEDS: POLYETHYLENE GLYCOL 3350 119 GM BTL PO SCH ×2 (09:24→22:36)
[2019-03-07] MEDS: SENNOSIDES/DOCUSATE COMBO (SENNA PLUS) TABLET (UD) PO SCH (09:24)
[2019-03-07] MEDS: TIOTROPIUM BROMIDE 2.5 MCG (SPIRIVA) RESPIMAT INHALER IH SCH (09:27)
[2019-03-07] MEDS: BUDESONIDE/FORMETEROL FUMARATE 160/4.5 mcg INHALER IH SCH (09:27)
--- NOTE | 2019-03-07 13:38 | PN ---
Progress Note (short form) - Note Progress Note: PULMONARY Breathing about the same. Still with cough and wheezing. No fevers or chills. Vital Signs Period Temp Pulse Resp BP Sys/Gates Pulse Ox Last 24 Hr 97.8 F-98.8 F 88-105 18-20 154-165/83-92 94-99 Gen: NAD in chair Heart: RRR Lung: scattered rhonchi Abd: soft, nontender Ext: + edema CBC, BMP 03/07/19 06:15 03/07/19 06:15 Active Medications Al Hydroxide/Mg Hydroxide (Mylanta Suspension -) 30 ml PO Q6H PRN PRN Reason: DYSPEPSIA Amitriptyline HCl (Elavil -) 75 mg PO HS [facility] Last Admin: 03/06/19 23:35 Dose: 75 mg Amlodipine Besylate (Norvasc -) 10 mg PO DAILY [facility] Last Admin: 03/07/19 09:22 Dose: 10 mg Arformoterol Tartrate (Brovana (Restricted To Pulmonology/Resp) -) 1 amp NEB RBID [facility] Last Admin: 03/07/19 08:20 Dose: 1 amp Aspirin (Ecotrin -) 81 mg PO DAILY [facility] Last Admin: 03/07/19 09:23 Dose: 81 mg Budesonide/Formoterol Fumarate (Symbicort 160/4.5mcg -) 1 puff IH BID [facility] Last Admin: 03/07/19 09:27 Dose: 1 puff Clopidogrel Bisulfate (Plavix -) 75 mg PO DAILY [facility] Last Admin: 03/07/19 09:23 Dose: 75 mg Ezetimibe (Zetia -) 10 mg PO HS [facility] Last Admin: 03/06/19 21:41 Dose: 10 mg Finasteride (Proscar -) 5 mg PO DAILY [facility] Last Admin: 03/07/19 09:23 Dose: 5 mg Gabapentin (Neurontin -) 800 mg PO TID [facility] Last Admin: 03/07/19 05:51 Dose: 800 mg Heparin Sodium (Porcine) (Heparin -) 5,000 unit SQ TID [facility] Last Admin: 03/07/19 05:51 Dose: 5,000 unit Hydromorphone HCl (Dilaudid -) 4 mg PO Q6H PRN PRN Reason: PAIN LEVEL 7 - 10 Last Admin: 03/07/19 13:00 Dose: 4 mg Insulin Aspart (Novolog Vial Sliding Scale -) 1 vial SQ ACHS [facility]; Protocol Last Admin: 03/07/19 12:50 Dose: Not Given Methylprednisolone Sodium Succinate (Solu-Medrol -) 40 mg IVPUSH Q12H [facility] Last Admin: 03/07/19 09:22 Dose: 40 mg Montelukast Sodium (Singulair -) 10 mg PO [facility] Last Admin: 03/06/19 21:39 Dose: 10 mg Non-Formulary Medication (Insulin Pump Controller [Snap Insulin Pump Controller] ) 1 each MC ASDIR [facility] Non-Formulary Medication (Mesalamine [Pentasa]) 500 mg PO TID [facility] Pancrelipase (Creon Dr 36,000 Units Capsule) 1 cap PO TIDCM [facility] Last Admin: 03/07/19 12:59 Dose: 1 cap Pantoprazole Sodium (Protonix -) 20 mg PO DAILY [facility] Last Admin: 03/07/19 09:23 Dose: 20 mg Polyethylene Glycol (Miralax (For Daily Use) -) 17 gm PO BID [facility] Last Admin: 03/07/19 09:24 Dose: 17 gm Rosuvastatin Calcium (Crestor -) 20 mg PO [facility] Last Admin: 03/06/19 21:40 Dose: 20 mg Senna/Docusate Sodium (Pericolace -) 1 tablet PO DAILY [facility] Last Admin: 03/07/19 09:24 Dose: 1 tablet Tamsulosin HCl (Flomax -) 0.4 mg PO DAILY@0830 [facility] Last Admin: 03/07/19 08:32 Dose: 0.4 mg Tapentadol (Nucynta Er -) 150 mg PO BID [facility] Last Admin: 03/07/19 09:23 Dose: 150 mg Tiotropium [place] (Spiriva Respimat) 2 puff IH DAILY [facility] Last Admin: 03/07/19 09:27 Dose: 2 puff A/P Acute COPD Exacerbation improving Acute on Chronic Diastolic Heart Failure Chronic Hypoxic Respiratory Failure Obstructive Sleep Apnea s/p Tracheostomy CAD s/p CABG HTN DM Hyperlipidemia Spinal Stenosis Chronic Pain Syndrome Opiate Dependence Acute on chronic kidney disease - continue medrol same dose - inhaled bronchodilators standing and PRN - O2 to keep Spo2 >90% - glucose control while on systemic steroids - monitor urine output, creatinine - uncap tracheostomy when sleeping - pain control - DVT prophylaxis Problem List - Problems (1) COPD exacerbation Code(s): J44.1 - CHRONIC OBSTRUCTIVE PULMONARY DISEASE W (ACUTE) EXACERBATION
[2019-03-07] MEDS ORDERED: FUROSEMIDE 40 MG TABLET (FP) PO SCH (14:00)
--- NOTE | 2019-03-07 15:31 | PN ---
Progress Note (short form) - Note Progress Note: Renal follow up for LOVE on CKD Pt seen and examined at the bedside has no acute complaints denies any sob, cp, fever or chills does not that LE swelling is worsening Vital Signs Temperature 98.4 F 03/07/19 14:00 Pulse Rate 82 03/07/19 14:00 Respiratory Rate 20 03/07/19 14:00 Blood Pressure 156/92 03/07/19 14:00 O2 Sat by Pulse Oximetry (%) 94 L 03/07/19 10:00 Intake & Output 03/04/19 03/05/19 03/06/19 03/07/19 23:59 23:59 23:59 23:59 Intake Total 1115 2245 800 270 Output Total 1300 900 Balance -185 1345 800 270 Weight 136.305 kg 138.346 kg 137.155 kg NAD RRR + wheezing, no rales obese, NT/ND abd trace LE edema CBC, BMP 03/07/19 06:15 03/07/19 06:15 Current Medications Al Hydroxide/Mg Hydroxide (Mylanta Suspension -) 30 ml PO Q6H PRN PRN Reason: DYSPEPSIA Amitriptyline HCl (Elavil -) 75 mg PO HS [facility] Last Admin: 03/06/19 23:35 Dose: 75 mg Amlodipine Besylate (Norvasc -) 10 mg PO DAILY [facility] Last Admin: 03/07/19 09:22 Dose: 10 mg Arformoterol Tartrate (Brovana (Restricted To Pulmonology/Resp) -) 1 amp NEB RBID [facility] Last Admin: 03/07/19 08:20 Dose: 1 amp Aspirin (Ecotrin -) 81 mg PO DAILY [facility] Last Admin: 03/07/19 09:23 Dose: 81 mg Budesonide/Formoterol Fumarate (Symbicort 160/4.5mcg -) 1 puff IH BID [facility] Last Admin: 03/07/19 09:27 Dose: 1 puff Clopidogrel Bisulfate (Plavix -) 75 mg PO DAILY [facility] Last Admin: 03/07/19 09:23 Dose: 75 mg Ezetimibe (Zetia -) 10 mg PO HS [facility] Last Admin: 03/06/19 21:41 Dose: 10 mg Finasteride (Proscar -) 5 mg PO DAILY [facility] Last Admin: 03/07/19 09:23 Dose: 5 mg Furosemide (Lasix -) 40 mg PO DAILY [facility] Last Admin: 03/07/19 14:13 Dose: 40 mg Gabapentin (Neurontin -) 800 mg PO TID [facility] Last Admin: 03/07/19 14:13 Dose: 800 mg Heparin Sodium (Porcine) (Heparin -) 5,000 unit SQ TID [facility] Last Admin: 03/07/19 14:14 Dose: 5,000 unit Hydromorphone HCl (Dilaudid -) 4 mg PO Q6H PRN PRN Reason: PAIN LEVEL 7 - 10 Last Admin: 03/07/19 13:00 Dose: 4 mg Insulin Aspart (Novolog Vial Sliding Scale -) 1 vial SQ [facility]; Protocol Last Admin: 03/07/19 12:50 Dose: Not Given Methylprednisolone Sodium Succinate (Solu-Medrol -) 40 mg IVPUSH Q12H [facility] Last Admin: 03/07/19 09:22 Dose: 40 mg Montelukast Sodium (Singulair -) [address] [facility] Last Admin: 03/06/19 21:39 Dose: 10 mg Non-Formulary Medication (Insulin Pump Controller [Snap Insulin Pump Controller] ) 1 each MC ASDIR [facility] Non-Formulary Medication (Mesalamine [Pentasa]) 500 mg PO TID [facility] Pancrelipase (Creon Dr 36,000 Units Capsule) 1 cap PO TIDCM [facility] Last Admin: 03/07/19 12:59 Dose: 1 cap Pantoprazole Sodium (Protonix -) 20 mg PO DAILY [facility] Last Admin: 03/07/19 09:23 Dose: 20 mg Polyethylene Glycol (Miralax (For Daily Use) -) 17 gm PO BID [facility] Last Admin: 03/07/19 09:24 Dose: 17 gm Rosuvastatin Calcium (Crestor -) 20 mg PO [facility] Last Admin: 03/06/19 21:40 Dose: 20 mg Senna/Docusate Sodium (Pericolace -) 1 tablet PO DAILY [facility] Last Admin: 03/07/19 09:24 Dose: 1 tablet Tamsulosin HCl (Flomax -) 0.4 mg PO DAILY@0830 [facility] Last Admin: 03/07/19 08:32 Dose: 0.4 mg Tapentadol (Nucynta Er -) 150 mg PO BID [facility] Last Admin: 03/07/19 09:23 Dose: 150 mg Tiotropium [place] (Spiriva Respimat) 2 puff IH DAILY [facility] Last Admin: 03/07/19 09:27 Dose: 2 puff 63 year old gentleman with history of hypertension, DM, hyperlipidemia, GRACIE s/ p trach, CAD s/p CABG, CHF with diastolic dysfunction who presented with worsening SOB and admitted for CHF + COPD exacerbation with Cr of 2. 1. Acute kidney injury secondary renal hypoprofusion in setting of cardic dysfunction vs. intravascular volume depletion vs. ATN vs. AIN vs. outflow obstruction 2. CHF with diastolic dysfunction 3. COPD 4. Chronic GRACIE 5. CAD s/p CABG 6. DM 7. Hyperlipidemia Renal function with mild improvement. Will restart home dose of Lasix 40mg daily for edema management trend renal function and electrolytes Thank you Az Nelson DO
--- NOTE | 2019-03-07 15:35 | PN ---
Progress Note, Physician Chief Complaint: COPD Exacerbation Intractable lower back pain CHF History of Present Illness: Previous notes and events reviewed awake and alert NAD sts his breathing is improving denies cough denies chest pain K+ 4.9 - Current Medication List Current Medications: Active Medications Al Hydroxide/Mg Hydroxide (Mylanta Suspension -) 30 ml PO Q6H PRN PRN Reason: DYSPEPSIA Amitriptyline HCl (Elavil -) 75 mg PO HS [facility] Last Admin: 03/06/19 23:35 Dose: 75 mg Amlodipine Besylate (Norvasc -) 10 mg PO DAILY [facility] Last Admin: 03/07/19 09:22 Dose: 10 mg Arformoterol Tartrate (Brovana (Restricted To Pulmonology/Resp) -) 1 amp NEB RBID [facility] Last Admin: 03/07/19 08:20 Dose: 1 amp Aspirin (Ecotrin -) 81 mg PO DAILY [facility] Last Admin: 03/07/19 09:23 Dose: 81 mg Budesonide/Formoterol Fumarate (Symbicort 160/4.5mcg -) 1 puff IH BID [facility] Last Admin: 03/07/19 09:27 Dose: 1 puff Clopidogrel Bisulfate (Plavix -) 75 mg PO DAILY [facility] Last Admin: 03/07/19 09:23 Dose: 75 mg Ezetimibe (Zetia -) 10 mg PO HS [facility] Last Admin: 03/06/19 21:41 Dose: 10 mg Finasteride (Proscar -) 5 mg PO DAILY [facility] Last Admin: 03/07/19 09:23 Dose: 5 mg Furosemide (Lasix -) 40 mg PO DAILY [facility] Last Admin: 03/07/19 14:13 Dose: 40 mg Gabapentin (Neurontin -) 800 mg PO TID [facility] Last Admin: 03/07/19 14:13 Dose: 800 mg Heparin Sodium (Porcine) (Heparin -) 5,000 unit SQ TID [facility] Last Admin: 03/07/19 14:14 Dose: 5,000 unit Hydromorphone HCl (Dilaudid -) 4 mg PO Q6H PRN PRN Reason: PAIN LEVEL 7 - 10 Last Admin: 03/07/19 13:00 Dose: 4 mg Insulin Aspart (Novolog Vial Sliding Scale -) [address] [facility]; Protocol Last Admin: 03/07/19 12:50 Dose: Not Given Methylprednisolone Sodium Succinate (Solu-Medrol -) 40 mg IVPUSH Q12H [facility] Last Admin: 03/07/19 09:22 Dose: 40 mg Montelukast Sodium (Singulair -) 10 mg PO [facility] Last Admin: 03/06/19 21:39 Dose: 10 mg Non-Formulary Medication (Insulin Pump Controller [Snap Insulin Pump Controller] ) 1 each MC ASDIR [facility] Non-Formulary Medication (Mesalamine [Pentasa]) 500 mg PO TID [facility] Pancrelipase (Creon Dr 36,000 Units Capsule) 1 cap PO TIDCM [facility] Last Admin: 03/07/19 12:59 Dose: 1 cap Pantoprazole Sodium (Protonix -) 20 mg PO DAILY [facility] Last Admin: 03/07/19 09:23 Dose: 20 mg Polyethylene Glycol (Miralax (For Daily Use) -) 17 gm PO BID [facility] Last Admin: 03/07/19 09:24 Dose: 17 gm Rosuvastatin Calcium (Crestor -) 20 mg PO [facility] Last Admin: 03/06/19 21:40 Dose: 20 mg Senna/Docusate Sodium (Pericolace -) 1 tablet PO DAILY [facility] Last Admin: 03/07/19 09:24 Dose: 1 tablet Tamsulosin HCl (Flomax -) 0.4 mg PO DAILY@0830 [facility] Last Admin: 03/07/19 08:32 Dose: 0.4 mg Tapentadol (Nucynta Er -) 150 mg PO BID [facility] Last Admin: 03/07/19 09:23 Dose: 150 mg Tiotropium [place] (Spiriva Respimat) 2 puff IH DAILY [facility] Last Admin: 03/07/19 09:27 Dose: 2 puff - Objective Vital Signs: Vital Signs Temperature 98.4 F 03/07/19 14:00 Pulse Rate 82 03/07/19 14:00 Respiratory Rate 20 03/07/19 14:00 Blood Pressure 156/92 03/07/19 14:00 O2 Sat by Pulse Oximetry (%) 94 L 03/07/19 10:00 Constitutional: Yes: No Distress, Calm, Obese Eyes: Yes: Conjunctiva Clear HENT: Yes: Atraumatic Neck: Yes: Other (trach) Cardiovascular: Yes: Regular Rate and Rhythm Respiratory: Yes: Regular, On Nasal O2, Wheezes Gastrointestinal: Yes: Normal Bowel Sounds, Soft, Abdomen, Obese, Tenderness, Epigastrium Musculoskeletal: Yes: Muscle Weakness Extremities: Yes: WNL Edema: Yes Edema: LLE: 1+, RLE: 2+ Neurological: Yes: Alert, Oriented Psychiatric: Yes: Alert, Oriented Labs: CBC, BMP 03/07/19 06:15 03/07/19 06:15 Problem List - Problems (1) BMI 39.0-39.9,adult Assessment/Plan: -Dietary consult Code(s): Z68.39 - BODY MASS INDEX (BMI) 39.0-39.9, ADULT (2) COPD exacerbation Assessment/Plan: -Pulm on board -O2 via NC -keep SpO2 >90% -Symbicort, Brovanna, Spiriva -bronchodilators -IV Medrol Code(s): J44.1 - CHRONIC OBSTRUCTIVE PULMONARY DISEASE W (ACUTE) EXACERBATION (3) Diastolic CHF Assessment/Plan: -Cardiology on board -1L fluid restriction -daily weights -strict I&Os -started on Furosemide Code(s): I50.30 - UNSPECIFIED DIASTOLIC (CONGESTIVE) HEART FAILURE (4) Leg edema Assessment/Plan: -keep legs elevated -started on Furosemide--monitor renal function Code(s): R60.0 - LOCALIZED EDEMA (5) Renal insufficiency Assessment/Plan: -Renal on board -BUN/Cr 53.6/1.8 -continue to monitor renal function Code(s): N28.9 - DISORDER OF KIDNEY AND URETER, UNSPECIFIED (6) HTN (hypertension) Assessment/Plan: -Norvasc, Chlorthalidone -low Na diet Code(s): I10 - ESSENTIAL (PRIMARY) HYPERTENSION (7) Hyperlipidemia Assessment/Plan: -Zetia, Crestor Code(s): E78.5 - HYPERLIPIDEMIA, UNSPECIFIED (8) Diabetes mellitus Assessment/Plan: -BGM ACHS -Insulin pump -ISS -diabetic diet Code(s): E11.9 - TYPE 2 DIABETES MELLITUS WITHOUT COMPLICATIONS (9) Intractable low back pain Assessment/Plan: -Pain consult -Dilaudid, Nucynta, Percocet -Neurosurgery consult Code(s): M54.5 - LOW BACK PAIN (10) Abdominal pain Assessment/Plan: -Abdominal US shows fatty enlarged liver, possible gallstone -GI on board Code(s): R10.9 - UNSPECIFIED ABDOMINAL PAIN (11) Hyperkalemia Assessment/Plan: -K 4.9 -resolved -renal on board Code(s): E87.5 - HYPERKALEMIA Assessment/Plan see problem list dvt ppx
--- NOTE | 2019-03-07 15:59 | PN.GI ---
GI Progress Note Subjective: No overt GI complaints - Objective Vital Signs: Vital Signs Temperature 98.4 F 03/07/19 14:00 Pulse Rate 82 03/07/19 14:00 Respiratory Rate 20 03/07/19 14:00 Blood Pressure 156/92 03/07/19 14:00 O2 Sat by Pulse Oximetry (%) 94 L 03/07/19 10:00 Constitutional: Calm Eyes: No: Sclera Icterus Cardiovascular: Yes: Regular Rate and Rhythm. No: Murmur Respiratory: Yes: Diminished (at bases bilaterally) Gastrointestinal Inspection: Yes: Scars (+ umbilical scar). No: Distention ...Auscultate: Yes: Normoactive Bowel Sounds ...Palpate: Yes: Soft. No: Hepatomegaly, Splenomegaly, Tenderness Edema: Yes Edema: LLE: 2+, RLE: 2+ Neurological: Yes: Alert Labs: CBC, BMP 03/07/19 06:15 03/07/19 06:15 Problem List - Problems (1) Elevated LFTs Assessment/Plan: Avoid hepatotoxic agents Check screening hepatitis serologies Rechecked CPK Will be following up at [facility] for pancreas issues 03/22/19 Code(s): R94.5 - ABNORMAL RESULTS OF LIVER FUNCTION STUDIES
[2019-03-07] MEDS ORDERED: PT OWN MED DRAWER 7, Y5N ONE (20:41)
[2019-03-07] MEDS: AMITRIPTYLINE HCL 75 MG TABLET PO SCH (22:31)
[2019-03-07] MEDS: ROSUVASTATIN CA 20 MG TABLET (FP) PO SCH (22:31)
[2019-03-07] MEDS: MONTELUKAST NA 10 MG TABLET PO SCH (22:31)
[2019-03-07] MEDS: EZETIMIBE 10 MG TABLET (FP) PO SCH (22:33)
--- NOTE | 2019-03-07 22:55 | PN ---
Progress Note, Physician Chief Complaint: HAS CONSTANT BACK PAIN DESPITE ORAL PAIN MEDS FEELS ONLY THE IV OR IM HELP HIS PAIN PAIN 7-8/10 WHEN PILLS WEAR OFF - Current Medication List Current Medications: Active Medications Al Hydroxide/Mg Hydroxide (Mylanta Suspension -) 30 ml PO Q6H PRN PRN Reason: DYSPEPSIA Amitriptyline HCl (Elavil -) 75 mg PO HS [facility] Last Admin: 03/07/19 22:31 Dose: 75 mg Amlodipine Besylate (Norvasc -) 10 mg PO DAILY [facility] Last Admin: 03/07/19 09:22 Dose: 10 mg Arformoterol Tartrate (Brovana (Restricted To Pulmonology/Resp) -) 1 amp NEB RBID [facility] Last Admin: 03/07/19 20:37 Dose: 1 amp Aspirin (Ecotrin -) 81 mg PO DAILY [facility] Last Admin: 03/07/19 09:23 Dose: 81 mg Budesonide/Formoterol Fumarate (Symbicort 160/4.5mcg -) 1 puff IH BID [facility] Last Admin: 03/07/19 09:27 Dose: 1 puff Clopidogrel Bisulfate (Plavix -) 75 mg PO DAILY [facility] Last Admin: 03/07/19 09:23 Dose: 75 mg Ezetimibe (Zetia -) 10 mg PO HS [facility] Last Admin: 03/07/19 22:33 Dose: 10 mg Finasteride (Proscar -) 5 mg PO DAILY [facility] Last Admin: 03/07/19 09:23 Dose: 5 mg Furosemide (Lasix -) 40 mg PO DAILY [facility] Last Admin: 03/07/19 14:13 Dose: 40 mg Gabapentin (Neurontin -) 800 mg PO TID [facility] Last Admin: 03/07/19 22:32 Dose: 800 mg Heparin Sodium (Porcine) (Heparin -) 5,000 unit SQ TID [facility] Last Admin: 03/07/19 22:31 Dose: 5,000 unit Hydromorphone HCl (Dilaudid -) 4 mg PO Q6H PRN PRN Reason: PAIN LEVEL 7 - 10 Last Admin: 03/07/19 18:48 Dose: 4 mg Insulin Aspart (Novolog Vial Sliding Scale -) 1 vial SQ [facility]; Protocol Last Admin: 03/07/19 16:47 Dose: Not Given Methylprednisolone Sodium Succinate (Solu-Medrol -) 40 mg IVPUSH Q12H [facility] Last Admin: 03/07/19 22:32 Dose: 40 mg Montelukast Sodium (Singulair -) 10 mg PO [facility] Last Admin: 03/07/19 22:31 Dose: 10 mg Non-Formulary Medication (Insulin Pump Controller [Snap Insulin Pump Controller] ) 1 each MC ASDIR [facility] Non-Formulary Medication (Mesalamine [Pentasa]) 500 mg PO TID [facility] Pancrelipase (Creon Dr 36,000 Units Capsule) 1 cap PO TIDCM [facility] Last Admin: 03/07/19 16:48 Dose: 1 cap Pantoprazole Sodium (Protonix -) 20 mg PO DAILY [facility] Last Admin: 03/07/19 09:23 Dose: 20 mg Polyethylene Glycol (Miralax (For Daily Use) -) 17 gm PO BID [facility] Last Admin: 03/07/19 22:36 Dose: 17 gm Rosuvastatin Calcium (Crestor -) 20 mg PO [facility] Last Admin: 03/07/19 22:31 Dose: 20 mg Senna/Docusate Sodium (Pericolace -) 1 tablet PO DAILY [facility] Last Admin: 03/07/19 09:24 Dose: 1 tablet Tamsulosin HCl (Flomax -) 0.4 mg PO DAILY@0830 [facility] Last Admin: 03/07/19 08:32 Dose: 0.4 mg Tapentadol (Nucynta Er -) 150 mg PO BID [facility] Last Admin: 03/07/19 22:31 Dose: 150 mg Tiotropium [place] (Spiriva Respimat) 2 puff IH DAILY [facility] Last Admin: 03/07/19 09:27 Dose: 2 puff - Objective Vital Signs: Vital Signs Temperature 98.4 F 03/07/19 14:00 Pulse Rate 82 03/07/19 14:00 Respiratory Rate 20 03/07/19 14:00 Blood Pressure 156/92 03/07/19 14:00 O2 Sat by Pulse Oximetry (%) 94 L 03/07/19 10:00 Constitutional: Yes: Anxious Eyes: Yes: EOM Intact HENT: Yes: Normocephalic Neck: Yes: Trachea Midline Cardiovascular: Yes: Regular Rate and Rhythm Respiratory: Yes: On Nasal O2 Gastrointestinal: Yes: Normal Bowel Sounds, Abdomen, Obese ...Rectal Exam: Yes: Deferred Genitourinary: Yes: WNL Musculoskeletal: Yes: Back Pain, Joint Stiffness, Joint Swelling Extremities: Yes: Delayed Capillary Refill Edema: LLE: 1+, RLE: 1+ Integumentary: Yes: Onychomycosis Neurological: Yes: Alert, Oriented Labs: CBC, BMP 03/07/19 06:15 03/07/19 06:15 Problem List - Problems (1) Type 2 diabetes mellitus with hyperosmolarity without nonketotic hyperglycemic-hyperosmolar coma ([facility]) Code(s): E11.00 - TYPE 2 DIAB W HYPROSM W/O NONKET HYPRGLY-HYPROS COMA ([facility]) (2) BMI 39.0-39.9,adult Code(s): Z68.39 - BODY MASS INDEX (BMI) 39.0-39.9, ADULT (3) Diastolic CHF Code(s): I50.30 - UNSPECIFIED DIASTOLIC (CONGESTIVE) HEART FAILURE (4) Leg edema Code(s): R60.0 - LOCALIZED EDEMA (5) Opiate dependence Code(s): F11.20 - OPIOID DEPENDENCE, UNCOMPLICATED (6) Renal insufficiency Code(s): N28.9 - DISORDER OF KIDNEY AND URETER, UNSPECIFIED (7) Abdominal pain in male Code(s): R10.9 - UNSPECIFIED ABDOMINAL PAIN (8) Anxiety Code(s): F41.9 - ANXIETY DISORDER, UNSPECIFIED Assessment/Plan Current Active Problems LOVE (acute kidney injury) (Acute) Abdominal pain (Acute) Anxiety (Acute) BMI 39.0-39.9,adult (Acute) COPD exacerbation (Acute) Chronic pancreatitis (Acute) Diastolic CHF (Acute) Elevated LFTs (Acute) Hyperkalemia (Acute) Leg edema (Acute) Opiate dependence (Acute) Renal insufficiency (Acute) Type 2 diabetes mellitus with hyperosmolarity without nonketotic hyperglycemic- hyperosmolar coma ([facility]) (Acute) Abnormal Lab Results 03/07/19 03/07/19 06:15 06:15 MPV 7.3 L Neutrophils % 85.4 H Carbon Dioxide 33 H Anion Gap 6 L BUN 53.6 H Creatinine 1.8 H Random Glucose 295 H AST 80 H ALT 110 H Total Protein 6.3 L Albumin 3.3 L Laboratory Results - last 24 hr 08/26/19 08/27/19 08/27/19 17:22 06:15 06:15 WBC 8.7 RBC 4.49 Hgb 12.0 Hct 37.0 MCV 82.4 MCH 26.8 MCHC 32.5 RDW 15.4 Plt Count 287 MPV 7.3 L Absolute Neuts (auto) 7.5 Neutrophils % 85.4 H Lymphocytes % 9.9 D Monocytes % 4.5 Eosinophils % 0.1 D Basophils % 0.1 Nucleated RBC % 0 Sodium 139 Potassium 4.9 Chloride 100 Carbon Dioxide 33 H Anion Gap 6 L BUN 53.6 H Creatinine 1.8 H Est GFR (CKD-EPI)AfAm 44.78 Est GFR (CKD-EPI)NonAf 38.63 POC Glucometer 188 Random Glucose 295 H Calcium 9.3 Total Bilirubin 0.4 AST 80 H ALT 110 H Alkaline Phosphatase 82 Total Protein 6.3 L Albumin 3.3 L 03/07/19 03/07/19 03/07/19 06:18 11:32 16:38 WBC RBC Hgb Hct MCV MCH MCHC RDW Plt Count MPV Absolute Neuts (auto) Neutrophils % Lymphocytes % Monocytes % Eosinophils % Basophils % Nucleated RBC % Sodium Potassium Chloride Carbon Dioxide Anion Gap BUN Creatinine Est GFR (CKD-EPI)AfAm Est GFR (CKD-EPI)NonAf POC Glucometer 315 312 254 Random Glucose Calcium Total Bilirubin AST ALT Alkaline Phosphatase Total Protein Albumin PLAN: BGM QID NOVOLOG SCALE WITH INSULIN PUMP HAS IMPROVED DESPITE STEROID RESISTANT PAIN MANAGEMENT FOR CONTROL OF PAIN
[2019-03-08] MEDS: INSULIN SLIDING SCALE (NOVOLOG) 1 VIAL SQ SCH ×5 (00:04→22:08)
[2019-03-08] MEDS: BUDESONIDE/FORMETEROL FUMARATE 160/4.5 mcg INHALER IH SCH ×3 (00:07→21:35)
[2019-03-08] MEDS: GABAPENTIN 400 MG CAPSULE (FP) PO SCH ×3 (05:02→21:30)
[2019-03-08] MEDS: HEPARIN NA (PORCINE) 5,000 UNITS/ML 1ML VIAL SQ SCH ×3 (05:04→21:30)
[2019-03-08] MEDS ORDERED: INSULIN (NOVOLOG) ASPART 100 UNITS/ML 10ML VIAL ONE (06:46)
[2019-03-08] MEDS: ARFORMOTEROL TARTRATE 15 MCG/2 ML VIAL NEB SCH ×2 (07:38→20:26)
[2019-03-08 08:24] LABS: HEMATOCRIT 36.6 % (35.4-49); HEMOGLOBIN 11.9 GM/dL (11.7-16.9); MCH 26.6 pg (25.7-33.7); MCHC 32.5 g/dl (32.0-35.9); MEAN CELL VOLUME 81.7 fl (80-96); MEAN PLT VOLUME 7.5 fl (7.5-11.1); PLATELET COUNT 284 K/MM3 (134-434); RBC 4.48 M/mm3 (4.00-5.60); RDW 15.3 % (11.9-15.9)
[2019-03-08 08:46] LABS: BLOOD UREA NITROGEN 47.7 mg/dL (7-18); CALCIUM 9.7 mg/dL (8.5-10.1); CREATININE 1.7 mg/dL (0.55-1.3); MAGNESIUM 2.8 mg/dL (1.8-2.4); POTASSIUM 4.6 mmol/L (3.5-5.1)
[2019-03-08] MEDS: LIPASE/PROTEASE/AMYLASE 36,000 UNIT CAPSULE PO SCH ×3 (08:58→17:32)
--- NOTE | 2019-03-08 09:08 | PN ---
Progress Note, Physician Chief Complaint: AWAKE ALERT C/O DEFECATING ON HIMSELF NON-BLOODY NO FEVERS BREATHING BETTER - Current Medication List Current Medications: Active Medications Al Hydroxide/Mg Hydroxide (Mylanta Suspension -) 30 ml PO Q6H PRN PRN Reason: DYSPEPSIA Amitriptyline HCl (Elavil -) 75 mg PO HS [facility] Last Admin: 03/07/19 22:31 Dose: 75 mg Amlodipine Besylate (Norvasc -) 10 mg PO DAILY [facility] Last Admin: 03/07/19 09:22 Dose: 10 mg Arformoterol Tartrate (Brovana (Restricted To Pulmonology/Resp) -) 1 amp NEB RBID [facility] Last Admin: 03/08/19 07:38 Dose: 1 amp Aspirin (Ecotrin -) 81 mg PO DAILY [facility] Last Admin: 03/07/19 09:23 Dose: 81 mg Budesonide/Formoterol Fumarate (Symbicort 160/4.5mcg -) 1 puff IH BID [facility] Last Admin: 03/08/19 00:07 Dose: 1 puff Clopidogrel Bisulfate (Plavix -) 75 mg PO DAILY [facility] Last Admin: 03/07/19 09:23 Dose: 75 mg Ezetimibe (Zetia -) 10 mg PO HS [facility] Last Admin: 03/07/19 22:33 Dose: 10 mg Finasteride (Proscar -) 5 mg PO DAILY [facility] Last Admin: 03/07/19 09:23 Dose: 5 mg Furosemide (Lasix -) 40 mg PO DAILY [facility] Last Admin: 03/07/19 14:13 Dose: 40 mg Gabapentin (Neurontin -) 800 mg PO TID [facility] Last Admin: 03/08/19 05:02 Dose: 800 mg Heparin Sodium (Porcine) (Heparin -) 5,000 unit SQ TID [facility] Last Admin: 03/08/19 05:04 Dose: 5,000 unit Hydromorphone HCl (Dilaudid -) 4 mg PO Q6H PRN PRN Reason: PAIN LEVEL 7 - 10 Last Admin: 03/08/19 04:58 Dose: 4 mg Insulin Aspart (Novolog Vial Sliding Scale -) [address] [facility]; Protocol Last Admin: 03/08/19 06:28 Dose: Not Given Methylprednisolone Sodium Succinate (Solu-Medrol -) 40 mg IVPUSH Q12H [facility] Last Admin: 03/07/19 22:32 Dose: 40 mg Montelukast Sodium (Singulair -) 10 mg PO HS [facility] Last Admin: 03/07/19 22:31 Dose: 10 mg Non-Formulary Medication (Insulin Pump Controller [Snap Insulin Pump Controller] ) 1 each MC ASDIR [facility] Non-Formulary Medication (Mesalamine [Pentasa]) 500 mg PO TID [facility] Pancrelipase (Creon Dr 36,000 Units Capsule) 1 cap PO TIDCM [facility] Last Admin: 03/07/19 16:48 Dose: 1 cap Pantoprazole Sodium (Protonix -) 20 mg PO DAILY [facility] Last Admin: 03/07/19 09:23 Dose: 20 mg Polyethylene Glycol (Miralax (For Daily Use) -) 17 gm PO BID [facility] Last Admin: 03/07/19 22:36 Dose: 17 gm Rosuvastatin Calcium (Crestor -) 20 mg PO [facility] Last Admin: 03/07/19 22:31 Dose: 20 mg Senna/Docusate Sodium (Pericolace -) 1 tablet PO DAILY [facility] Last Admin: 03/07/19 09:24 Dose: 1 tablet Tamsulosin HCl (Flomax -) 0.4 mg PO DAILY@0830 [facility] Last Admin: 03/07/19 08:32 Dose: 0.4 mg Tapentadol (Nucynta Er -) 150 mg PO BID [facility] Last Admin: 03/07/19 22:31 Dose: 150 mg Tiotropium [place] (Spiriva Respimat) 2 puff IH DAILY [facility] Last Admin: 03/07/19 09:27 Dose: 2 puff - Objective Vital Signs: Vital Signs Temperature 98.9 F 03/08/19 05:54 Pulse Rate 89 03/08/19 05:54 Respiratory Rate 20 03/08/19 05:54 Blood Pressure 149/85 03/08/19 05:54 O2 Sat by Pulse Oximetry (%) 94 L 03/07/19 21:00 Constitutional: Yes: Mild Distress Eyes: Yes: WNL HENT: Yes: WNL Neck: Yes: WNL Cardiovascular: Yes: Regular Rate and Rhythm Respiratory: Yes: Diminished Gastrointestinal: Yes: Abdomen, Obese Genitourinary: Yes: WNL Musculoskeletal: Yes: Back Pain, Muscle Pain Extremities: Yes: WNL Edema: Yes Edema: LLE: 2+, RLE: 2+ Peripheral Pulses WNL: Yes Integumentary: Yes: Erythema Wound/Incision: Yes: Open to air Neurological: Yes: Pre-Existing Deficit, Weakness ...Motor Strength: LLE, RLE Psychiatric: Yes: Other Labs: CBC, BMP 03/08/19 06:55 03/08/19 06:55 Problem List - Problems (1) LOVE (acute kidney injury) Code(s): N17.9 - ACUTE KIDNEY FAILURE, UNSPECIFIED (2) Abdominal pain Code(s): R10.9 - UNSPECIFIED ABDOMINAL PAIN (3) Anxiety Code(s): F41.9 - ANXIETY DISORDER, UNSPECIFIED (4) BMI 39.0-39.9,adult Code(s): Z68.39 - BODY MASS INDEX (BMI) 39.0-39.9, ADULT (5) COPD exacerbation Code(s): J44.1 - CHRONIC OBSTRUCTIVE PULMONARY DISEASE W (ACUTE) EXACERBATION (6) Chronic pancreatitis Code(s): K86.1 - OTHER CHRONIC PANCREATITIS (7) Diastolic CHF Code(s): I50.30 - UNSPECIFIED DIASTOLIC (CONGESTIVE) HEART FAILURE (8) Elevated LFTs Code(s): R94.5 - ABNORMAL RESULTS OF LIVER FUNCTION STUDIES (9) Leg edema Code(s): R60.0 - LOCALIZED EDEMA (10) Opiate dependence Code(s): F11.20 - OPIOID DEPENDENCE, UNCOMPLICATED (11) Type 2 diabetes mellitus with hyperosmolarity without nonketotic hyperglycemic-hyperosmolar coma ([facility]) Code(s): E11.00 - TYPE 2 DIAB W HYPROSM W/O NONKET HYPRGLY-HYPROS COMA ([facility]) (12) BPH (benign prostatic hyperplasia) Code(s): N40.0 - BENIGN PROSTATIC HYPERPLASIA WITHOUT LOWER URINRY TRACT SYMP (13) Hx of heart artery stent Code(s): Z95.5 - PRESENCE OF CORONARY ANGIOPLASTY IMPLANT AND GRAFT (14) Coronary artery disease Code(s): I25.10 - ATHSCL HEART DISEASE OF [place] CORONARY ARTERY W/O ANG PCTRS Assessment/Plan IV STEROIDS TAPER OFF PER PULMONARY NEPHROLOGY EVAL NO IV OPIODS PT EVAL LASIX PER CARDIOLOGY LACTOSE FREE DIET MAY SHOWER WITH ASSIST 02 SUPPORT NEBS BIPAP SCREEN
--- NOTE | 2019-03-08 09:44 | PN ---
Progress Note, Physician Chief Complaint: Pt A&Ox3; sitting up in chair. Pt continues to ask for hiw pain medication to be given IV. He says he takes the medication PO at home, but it never completely relieves the pain, "and since I'm monitored here, why can't I get the medications by IV to completely get rid of the pain while I'm in the hospital?". History of Present Illness: 63 year old black man with a significant past medical history of CAD s/p NM, stents x6 (most recently 12/2015), CABG, HTN, diastolic CHF, HLD, Chronic Pancreatitis, Chronic Back pain, SBO, Incarcerated Hernia s/p repair x2 (September 2017), H.Pylori, BPH, COPD, Bronchial Asthma, Tracheostomy in place (unplugs when sleeping for GRACIE),and anxiety, who presents with worsening shortness of breath for 2-3 weeks, 1 week of productive cough of yellow phlegm and 2-3 days of chest pain and bilateral leg swelling. He reports his chest pain is L sided pressure like 5-6/10 intermittent radiating to the side and back. He admits to lightheadedness but denies nausea or diaphoresis. He staties that he has taken prednisone 60mg everday for 3 days and doubled his lasix to 80mg a day for 4 days. He reports his symptoms feel like a CHF exacerbation. He took albuterol and breathing treatment prior to arrival. He has no other complaints at bedside. As discussed with his office electrician, Dr. oBla Elaine, today, he has had multiple admissions for chest pain since the last coronary stent; these have been negative for NM. (07/2016 dobutamine stress MIBI at [facility] : small, mild periinfarct inferior wall ischemia; pt may have had a more recent stress MIBI or angiogram as an outpatient). - Current Medication List Current Medications: Active Medications Al Hydroxide/Mg Hydroxide (Mylanta Suspension -) 30 ml PO Q6H PRN PRN Reason: DYSPEPSIA Amitriptyline HCl (Elavil -) 75 mg PO HS [facility] Last Admin: 03/07/19 22:31 Dose: 75 mg Amlodipine Besylate (Norvasc -) 10 mg PO DAILY [facility] Last Admin: 03/07/19 09:22 Dose: 10 mg Arformoterol Tartrate (Brovana (Restricted To Pulmonology/Resp) -) 1 amp NEB RBID [facility] Last Admin: 03/08/19 07:38 Dose: 1 amp Aspirin (Ecotrin -) 81 mg PO DAILY [facility] Last Admin: 03/07/19 09:23 Dose: 81 mg Budesonide/Formoterol Fumarate (Symbicort 160/4.5mcg -) 1 puff IH BID [facility] Last Admin: 03/08/19 00:07 Dose: 1 puff Clopidogrel Bisulfate (Plavix -) 75 mg PO DAILY [facility] Last Admin: 03/07/19 09:23 Dose: 75 mg Ezetimibe (Zetia -) 10 mg PO HS [facility] Last Admin: 03/07/19 22:33 Dose: 10 mg Finasteride (Proscar -) 5 mg PO DAILY [facility] Last Admin: 03/07/19 09:23 Dose: 5 mg Furosemide (Lasix -) 40 mg PO DAILY [facility] Last Admin: 03/07/19 14:13 Dose: 40 mg Gabapentin (Neurontin -) 800 mg PO TID [facility] Last Admin: 03/08/19 05:02 Dose: 800 mg Heparin Sodium (Porcine) (Heparin -) 5,000 unit SQ TID [facility] Last Admin: 03/08/19 05:04 Dose: 5,000 unit Hydromorphone HCl (Dilaudid -) 4 mg PO Q6H PRN PRN Reason: PAIN LEVEL 7 - 10 Last Admin: 03/08/19 04:58 Dose: 4 mg Insulin Aspart (Novolog Vial Sliding Scale -) 1 vial SQ [facility]; Protocol Last Admin: 03/08/19 06:28 Dose: Not Given Methylprednisolone Sodium Succinate (Solu-Medrol -) 40 mg IVPUSH Q12H [facility] Last Admin: 03/07/19 22:32 Dose: 40 mg Montelukast Sodium (Singulair -) 10 mg PO HS [facility] Last Admin: 03/07/19 22:31 Dose: 10 mg Non-Formulary Medication (Insulin Pump Controller [Snap Insulin Pump Controller] ) 1 each MC ASDIR [facility] Non-Formulary Medication (Mesalamine [Pentasa]) 500 mg PO TID [facility] Pancrelipase (Creon Dr 36,000 Units Capsule) 1 cap PO TIDCM [facility] Last Admin: 03/07/19 16:48 Dose: 1 cap Pantoprazole Sodium (Protonix -) 20 mg PO DAILY [facility] Last Admin: 03/07/19 09:23 Dose: 20 mg Polyethylene Glycol (Miralax (For Daily Use) -) 17 gm PO BID [facility] Last Admin: 03/07/19 22:36 Dose: 17 gm Rosuvastatin Calcium (Crestor -) 20 mg PO HS [facility] Last Admin: 03/07/19 22:31 Dose: 20 mg Senna/Docusate Sodium (Pericolace -) 1 tablet PO DAILY [facility] Last Admin: 03/07/19 09:24 Dose: 1 tablet Tamsulosin HCl (Flomax -) 0.4 mg PO DAILY@0830 [facility] Last Admin: 03/07/19 08:32 Dose: 0.4 mg Tapentadol (Nucynta Er -) 150 mg PO BID [facility] Last Admin: 03/07/19 22:31 Dose: 150 mg Tiotropium [place] (Spiriva Respimat) 2 puff IH DAILY [facility] Last Admin: 03/07/19 09:27 Dose: 2 puff - Objective Vital Signs: Vital Signs Temperature 98.9 F 03/08/19 05:54 Pulse Rate 89 03/08/19 05:54 Respiratory Rate 20 03/08/19 05:54 Blood Pressure 149/85 03/08/19 05:54 O2 Sat by Pulse Oximetry (%) 94 L 03/07/19 21:00 Constitutional: Yes: Anxious, Obese Eyes: Yes: WNL HENT: Yes: Other (tracheostomy site without obvious discharge, leak) Neck: Yes: WNL Cardiovascular: Yes: S1, S2, S4 Respiratory: Yes: Regular Gastrointestinal: Yes: Soft, Abdomen, Obese ...Rectal Exam: Yes: Deferred Genitourinary: Yes: Anuria Breast(s): Yes: WNL Musculoskeletal: Yes: Muscle Weakness Extremities: Yes: WNL Edema: Yes Edema: LLE: Trace (feet), RLE: Trace Peripheral Pulses WNL: Yes Integumentary: Yes: WNL Neurological: Yes: WNL Psychiatric: Yes: Alert, Oriented, Other (opiod dependent) Labs: CBC, BMP 03/08/19 06:55 03/08/19 06:55 Problem List - Problems (1) BMI 39.0-39.9,adult Assessment/Plan: The importance of weight loss was again discussed. Code(s): Z68.39 - BODY MASS INDEX (BMI) 39.0-39.9, ADULT (2) Leg edema Code(s): R60.0 - LOCALIZED EDEMA (3) Diastolic CHF Assessment/Plan: On amlodipine. F/u BUN/Cr, electrolytes, daily weight, Is and Os. Code(s): I50.30 - UNSPECIFIED DIASTOLIC (CONGESTIVE) HEART FAILURE (4) Anxiety Code(s): F41.9 - ANXIETY DISORDER, UNSPECIFIED (5) Opiate dependence Assessment/Plan: Will require long-term help, ideally, for pain management, psychological counseling, and gradual weaning from opiates. Code(s): F11.20 - OPIOID DEPENDENCE, UNCOMPLICATED (6) Renal insufficiency Code(s): N28.9 - DISORDER OF KIDNEY AND URETER, UNSPECIFIED (7) HTN (hypertension) Code(s): I10 - ESSENTIAL (PRIMARY) HYPERTENSION (8) Hyperlipidemia Assessment/Plan: Diet control; weight loss; exercise. statin; keep LDL < 70 mg/dl. (Would repeat lipid profile once pt has been on both rosuvastatin and Zetia; ? compliance to medications). The importance of weight loss, proper food choices, and exercise in aiding lipid control was discussed. Pt would benefit from nutrition consult. Code(s): E78.5 - HYPERLIPIDEMIA, UNSPECIFIED (9) Hx of heart artery stent Code(s): Z95.5 - PRESENCE OF CORONARY ANGIOPLASTY IMPLANT AND GRAFT (10) COPD exacerbation Assessment/Plan: Please see under "diastolic CHF". Code(s): J44.1 - CHRONIC OBSTRUCTIVE PULMONARY DISEASE W (ACUTE) EXACERBATION (11) Atypical chest pain Assessment/Plan: Sharp chest pains exacerbated by deep inspiration. TNI 0.02 x 3. EKG: normal sinus rhythm; normal study. Discussed with pt's private office electrician (Dr. Elaine) on admission. Records regarding most recent coronary artery workup (has apparently not required coronary stent since 2016). On ASA and clopidogrel. Statin (though on Zetia, spotty compliance to statin may explain elevated LDL on admission).. Code(s): R07.89 - OTHER CHEST PAIN
[2019-03-08] MEDS ORDERED: HYDROmorphone HCL 2 MG TABLET ONE ×3 (09:54→22:46)
[2019-03-08] MEDS: methylPREDNISolone NA SUCC 40 MG/1 ML VIAL IVPUSH SCH ×2 (09:57→21:23)
[2019-03-08] MEDS: amLODIPine BESYLATE 10 MG TABLET (FP) PO SCH (09:57)
[2019-03-08] MEDS: TAPENTADOL HCL 50 MG TAB.ER.12H PO SCH ×2 (09:58→21:22)
[2019-03-08] MEDS: FINASTERIDE 5 MG TABLET (FP) PO SCH (09:58)
[2019-03-08] MEDS: CLOPIDOGREL BISULFATE 75 MG TABLET (FP) PO SCH (09:58)
[2019-03-08] MEDS: ASPIRIN COATED 81 MG TABLET.EC PO SCH (09:58)
[2019-03-08] MEDS: PANTOPRAZOLE 20 MG TABLET (FP) PO SCH (09:58)
[2019-03-08] MEDS: TAMSULOSIN HCL 0.4 MG CAP PO SCH (10:00)
[2019-03-08] MEDS: TIOTROPIUM BROMIDE 2.5 MCG (SPIRIVA) RESPIMAT INHALER IH SCH (10:01)
[2019-03-08] MEDS: POLYETHYLENE GLYCOL 3350 119 GM BTL PO SCH ×2 (10:02→21:25)
[2019-03-08] MEDS: SENNOSIDES/DOCUSATE COMBO (SENNA PLUS) TABLET (UD) PO SCH (10:03)
--- NOTE | 2019-03-08 11:23 | PN ---
Progress Note, Physician History of Present Illness: 63 year old black man with a significant past medical history of CAD s/p FL, stents x6 (most recently 12/2015), CABG, HTN, diastolic CHF, HLD, Chronic Pancreatitis, Chronic Back pain, SBO, Incarcerated Hernia s/p repair x2 (September 2017), H.Pylori, BPH, COPD, Bronchial Asthma, Tracheostomy in place (unplugs when sleeping for GRACIE),and anxiety, who presents with worsening shortness of breath for 2-3 weeks, 1 week of productive cough of yellow phlegm and 2-3 days of chest pain and bilateral leg swelling. He reports his chest pain is L sided pressure like 5-6/10 intermittent radiating to the side and back. He admits to lightheadedness but denies nausea or diaphoresis. He staties that he has taken prednisone 60mg everday for 3 days and doubled his lasix to 80mg a day for 4 days. He reports his symptoms feel like a CHF exacerbation. He took albuterol and breathing treatment prior to arrival. He has no other complaints at bedside. As discussed with his requirements manager, Dr. Bola Elaine, today, he has had multiple admissions for chest pain since the last coronary stent; these have been negative for FL. (07/2016 dobutamine stress MIBI at [facility] : small, mild periinfarct inferior wall ischemia; pt may have had a more recent stress MIBI or angiogram as an outpatient). - Current Medication List Current Medications: Active Medications Al Hydroxide/Mg Hydroxide (Mylanta Suspension -) 30 ml PO Q6H PRN PRN Reason: DYSPEPSIA Amitriptyline HCl (Elavil -) 75 mg PO HS [facility] Last Admin: 03/07/19 22:31 Dose: 75 mg Amlodipine Besylate (Norvasc -) 10 mg PO DAILY [facility] Last Admin: 03/08/19 09:57 Dose: 10 mg Arformoterol Tartrate (Brovana (Restricted To Pulmonology/Resp) -) 1 amp NEB RBID [facility] Last Admin: 03/08/19 07:38 Dose: 1 amp Aspirin (Ecotrin -) 81 mg PO DAILY [facility] Last Admin: 03/08/19 09:58 Dose: 81 mg Budesonide/Formoterol Fumarate (Symbicort 160/4.5mcg -) 1 puff IH BID [facility] Last Admin: 03/08/19 10:01 Dose: 1 puff Clopidogrel Bisulfate (Plavix -) 75 mg PO DAILY [facility] Last Admin: 03/08/19 09:58 Dose: 75 mg Ezetimibe (Zetia -) 10 mg PO HS [facility] Last Admin: 03/07/19 22:33 Dose: 10 mg Finasteride (Proscar -) 5 mg PO DAILY [facility] Last Admin: 03/08/19 09:58 Dose: 5 mg Gabapentin (Neurontin -) 800 mg PO TID [facility] Last Admin: 03/08/19 05:02 Dose: 800 mg Heparin Sodium (Porcine) (Heparin -) 5,000 unit SQ TID [facility] Last Admin: 03/08/19 05:04 Dose: 5,000 unit Hydromorphone HCl (Dilaudid -) 4 mg PO Q6H PRN PRN Reason: PAIN LEVEL 7 - 10 Last Admin: 03/08/19 10:44 Dose: 4 mg Insulin Aspart (Novolog Vial Sliding Scale -) 1 vial SQ [facility]; Protocol Last Admin: 03/08/19 06:28 Dose: Not Given Methylprednisolone Sodium Succinate (Solu-Medrol -) 40 mg IVPUSH Q12H [facility] Last Admin: 03/08/19 09:57 Dose: 40 mg Montelukast Sodium (Singulair -) 10 mg PO [facility] Last Admin: 03/07/19 22:31 Dose: 10 mg Non-Formulary Medication (Insulin Pump Controller [Snap Insulin Pump Controller] ) 1 each [facility] Non-Formulary Medication (Mesalamine [Pentasa]) 500 mg PO TID [facility] Pancrelipase (Creon Dr 36,000 Units Capsule) 1 cap PO TIDCM [facility] Last Admin: 03/08/19 08:58 Dose: 1 cap Pantoprazole Sodium (Protonix -) 20 mg PO DAILY [facility] Last Admin: 03/08/19 09:58 Dose: 20 mg Polyethylene Glycol (Miralax (For Daily Use) -) 17 gm PO BID [facility] Last Admin: 03/08/19 10:02 Dose: Not Given Rosuvastatin Calcium (Crestor -) 20 mg PO [facility] Last Admin: 03/07/19 22:31 Dose: 20 mg Senna/Docusate Sodium (Pericolace -) 1 tablet PO DAILY [facility] Last Admin: 03/08/19 10:03 Dose: Not Given Tamsulosin HCl (Flomax -) 0.4 mg PO DAILY@0830 [facility] Last Admin: 03/08/19 10:00 Dose: 0.4 mg Tapentadol (Nucynta Er -) 150 mg PO BID [facility] Last Admin: 03/08/19 09:58 Dose: 150 mg Tiotropium [place] (Spiriva Respimat) 2 puff IH DAILY [facility] Last Admin: 03/08/19 10:01 Dose: 2 puff - Objective Vital Signs: Vital Signs Temperature 98.9 F 03/08/19 05:54 Pulse Rate 89 03/08/19 05:54 Respiratory Rate 20 03/08/19 05:54 Blood Pressure 149/85 03/08/19 05:54 O2 Sat by Pulse Oximetry (%) 94 L 03/07/19 21:00 Eyes: Yes: WNL, Conjunctiva Clear, EOM Intact HENT: Yes: WNL, Atraumatic, Normocephalic Neck: Yes: WNL, Supple, Trachea Midline Cardiovascular: Yes: WNL, Regular Rate and Rhythm Respiratory: Yes: WNL, Regular, CTA Bilaterally Gastrointestinal: Yes: WNL, Normal Bowel Sounds Genitourinary: Yes: WNL Musculoskeletal: Yes: WNL Extremities: Yes: WNL Edema: Yes Edema: LLE: 2+, RLE: 2+ Integumentary: Yes: WNL Neurological: Yes: WNL, Alert, Oriented ...Motor Strength: WNL Psychiatric: Yes: WNL Labs: CBC, BMP 03/08/19 06:55 03/08/19 06:55 Assessment/Plan - Problems (1) BMI 39.0-39.9,adult Code(s): Z68.39 - BODY MASS INDEX (BMI) 39.0-39.9, ADULT (2) Leg edema Code(s): R60.0 - LOCALIZED EDEMA (3) Diastolic CHF Assessment/Plan: Pt SOB, but no JVD or acute CXR changes. BNP 192 (was as high as 1,507 last year). Increasing BUN/Cr Plan: decrease, and eventually stop, furosemid (now on 40 mg daily PO); will discontinue in the morning). On bronchodilators, steroids,montelukast, and antibiotics per hand bulldozer for exacerbation of COPD, ?PNA. Stable CHF and CAD: form a cardiac perspective, pt may be followed as an outpatient by his requirements manager, Dr. Bola Elaine. Code(s): I50.30 - UNSPECIFIED DIASTOLIC (CONGESTIVE) HEART FAILURE (4) Anxiety Code(s): F41.9 - ANXIETY DISORDER, UNSPECIFIED (5) Opiate dependence Code(s): F11.20 - OPIOID DEPENDENCE, UNCOMPLICATED (6) Renal insufficiency Code(s): N28.9 - DISORDER OF KIDNEY AND URETER, UNSPECIFIED (7) HTN (hypertension) Code(s): I10 - ESSENTIAL (PRIMARY) HYPERTENSION (8) Hyperlipidemia Code(s): E78.5 - HYPERLIPIDEMIA, UNSPECIFIED (9) Hx of heart artery stent Code(s): Z95.5 - PRESENCE OF CORONARY ANGIOPLASTY IMPLANT AND GRAFT (10) COPD exacerbation Code(s): J44.1 - CHRONIC OBSTRUCTIVE PULMONARY DISEASE W (ACUTE) EXACERBATION (11) Atypical chest pain Code(s): R07.89 - OTHER CHEST PAIN
--- NOTE | 2019-03-08 12:08 | PN ---
Progress Note (short form) - Note Progress Note: PULMONARY Breathing about the same. Still with cough and wheezing. No fevers or chills. c/ o uncontrolled pain. Vital Signs Period Temp Pulse Resp BP Sys/Gates Pulse Ox Last 24 Hr 98 F-98.9 F 82-104 18-20 143-156/85-93 94-95 Gen: NAD in chair Heart: RRR Lung: scattered rhonchi Abd: soft, nontender Ext: + edema CBC, BMP 03/08/19 06:55 03/08/19 06:55 Active Medications Al Hydroxide/Mg Hydroxide (Mylanta Suspension -) 30 ml PO Q6H PRN PRN Reason: DYSPEPSIA Amitriptyline HCl (Elavil -) 75 mg PO [facility] Last Admin: 03/07/19 22:31 Dose: 75 mg Amlodipine Besylate (Norvasc -) 10 mg PO DAILY [facility] Last Admin: 03/08/19 09:57 Dose: 10 mg Arformoterol Tartrate (Brovana (Restricted To Pulmonology/Resp) -) 1 amp NEB RBID [facility] Last Admin: 03/08/19 07:38 Dose: 1 amp Aspirin (Ecotrin -) 81 mg PO DAILY [facility] Last Admin: 03/08/19 09:58 Dose: 81 mg Budesonide/Formoterol Fumarate (Symbicort 160/4.5mcg -) 1 puff IH BID [facility] Last Admin: 03/08/19 10:01 Dose: 1 puff Clopidogrel Bisulfate (Plavix -) 75 mg PO DAILY [facility] Last Admin: 03/08/19 09:58 Dose: 75 mg Ezetimibe (Zetia -) 10 mg PO [facility] Last Admin: 03/07/19 22:33 Dose: 10 mg Finasteride (Proscar -) 5 mg PO DAILY [facility] Last Admin: 03/08/19 09:58 Dose: 5 mg Gabapentin (Neurontin -) 800 mg PO TID [facility] Last Admin: 03/08/19 05:02 Dose: 800 mg Heparin Sodium (Porcine) (Heparin -) 5,000 unit SQ TID [facility] Last Admin: 03/08/19 05:04 Dose: 5,000 unit Hydromorphone HCl (Dilaudid -) 4 mg PO Q6H PRN PRN Reason: PAIN LEVEL 7 - 10 Last Admin: 03/08/19 10:44 Dose: 4 mg Insulin Aspart (Novolog Vial Sliding Scale -) 1 vial SQ [facility]; Protocol Last Admin: 03/08/19 11:59 Dose: Not Given Methylprednisolone Sodium Succinate (Solu-Medrol -) 40 mg IVPUSH Q12H [facility] Last Admin: 03/08/19 09:57 Dose: 40 mg Montelukast Sodium (Singulair -) 10 mg PO HS [facility] Last Admin: 03/07/19 22:31 Dose: 10 mg Non-Formulary Medication (Insulin Pump Controller [Snap Insulin Pump Controller] ) 1 each [facility] Non-Formulary Medication (Mesalamine [Pentasa]) 500 mg PO TID [facility] Pancrelipase (Creon Dr 36,000 Units Capsule) 1 cap PO TIDCM [facility] Last Admin: 03/08/19 08:58 Dose: 1 cap Pantoprazole Sodium (Protonix -) 20 mg PO DAILY [facility] Last Admin: 03/08/19 09:58 Dose: 20 mg Polyethylene Glycol (Miralax (For Daily Use) -) 17 gm PO BID [facility] Last Admin: 03/08/19 10:02 Dose: Not Given Rosuvastatin Calcium (Crestor -) 20 mg PO HS [facility] Last Admin: 03/07/19 22:31 Dose: 20 mg Senna/Docusate Sodium (Pericolace -) 1 tablet PO DAILY [facility] Last Admin: 03/08/19 10:03 Dose: Not Given Tamsulosin HCl (Flomax -) 0.4 mg PO DAILY@0830 [facility] Last Admin: 03/08/19 10:00 Dose: 0.4 mg Tapentadol (Nucynta Er -) 150 mg PO BID [facility] Last Admin: 03/08/19 09:58 Dose: 150 mg Tiotropium [place] (Spiriva Respimat) 2 puff IH DAILY [facility] Last Admin: 03/08/19 10:01 Dose: 2 puff A/P Acute COPD Exacerbation improving Acute on Chronic Diastolic Heart Failure Chronic Hypoxic Respiratory Failure Obstructive Sleep Apnea s/p Tracheostomy CAD s/p CABG HTN DM Hyperlipidemia Spinal Stenosis Chronic Pain Syndrome Opiate Dependence Acute on chronic kidney disease - continue medrol same dose - inhaled bronchodilators standing and PRN - O2 to keep Spo2 >90% - glucose control while on systemic steroids - monitor urine output, creatinine - uncap tracheostomy when sleeping - pain control - DVT prophylaxis Problem List - Problems (1) COPD exacerbation Code(s): J44.1 - CHRONIC OBSTRUCTIVE PULMONARY DISEASE W (ACUTE) EXACERBATION
--- NOTE | 2019-03-08 15:52 | PN.GI ---
GI Progress Note Subjective: Pt seen/examined at bedside, feeling better, sitting in chair eating fruit. Denies abdominal pain, n/v. Had mostly formed bm today per nursing staff. - Objective Vital Signs: Vital Signs Temperature 98.4 F 03/08/19 14:47 Pulse Rate 96 H 03/08/19 14:47 Respiratory Rate 18 03/08/19 14:47 Blood Pressure 165/92 03/08/19 14:47 O2 Sat by Pulse Oximetry (%) 95 03/08/19 10:00 Constitutional: Well Nourished, No Distress, Calm Cardiovascular: Yes: WNL, Regular Rate and Rhythm Respiratory: Yes: WNL, Regular, CTA Bilaterally ...Palpate: Yes: Other (Soft, mildly tender on palpation diffusely, non distended, no rebound, guarding or rigidity) Labs: CBC, BMP 03/08/19 06:55 03/08/19 06:55 Problem List - Problems (1) Elevated LFTs Assessment/Plan: 63yo male h/o CAD s/p PCI on asa/plavix, CHF, asthma/COPD, GRACIE s/p tracheostomy , DM on insulin pump, chronic pancreatitis, chronic back pain presents with increased sob, neck and back pain asked to evaluate for fatty liver and possible gallstones seen on US imaging with elevated LFTs. Predominantly hepatocellular pattern with likely multifactorial etiology in setting of possible medications (?statin recently started) vs congestive hepatopathy on background of likely underlying NAFLD. LFTs were normal in 09/2018. No LFTs today. Hep panel negative. Elevated CK noted. Does not appear biliary obstructive process. -Recommend hold statin if possible - spoke with primary team and will discuss with cardio prior to holding considering extensive cardiac history. If LFTs continue to rise would recommend discontinuing if possible and monitoring. -Monitor LFTs daily (repeat ordered) -Check HBsAb to assess immunity status -Continue cardio/respiratory optimization -Renal following -Continue to optimize glycemic control considering suspected underlying fatty liver Code(s): R94.5 - ABNORMAL RESULTS OF LIVER FUNCTION STUDIES (2) Chronic pancreatitis Assessment/Plan: Chronic abdominal pain reported. Feeling better today, tolerating diet. Prior MRI in 2018 revealing atrophic pancreas and multiple small cysts. Was supposed to follow up for outpatient EUS. -Continue supportive measures -Analgesia prn -Creon with meals -Outpatient GI follow up as scheduled for ongoing management of chronic pancreatitis Code(s): K86.1 - OTHER CHRONIC PANCREATITIS
[2019-03-08] MEDS: NYSTATIN 500,000 UNITS/5 ML SUSPENSION PO SCH (17:32)
[2019-03-08] MEDS ORDERED: PT OWN MED DRAWER 7, Y5N ONE ×2 (21:04→21:29)
[2019-03-08] MEDS: MONTELUKAST NA 10 MG TABLET PO SCH (21:23)
[2019-03-08] MEDS: ROSUVASTATIN CA 20 MG TABLET (FP) PO SCH (21:24)
[2019-03-08] MEDS: EZETIMIBE 10 MG TABLET (FP) PO SCH (21:25)
--- NOTE | 2019-03-08 22:36 | PN ---
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 chf Active Medications Al Hydroxide/Mg Hydroxide (Mylanta Suspension -) 30 ml PO Q6H PRN PRN Reason: DYSPEPSIA Amitriptyline HCl (Elavil -) 75 mg PO HS [facility] Last Admin: 03/07/19 22:31 Dose: 75 mg Amlodipine Besylate (Norvasc -) 10 mg PO DAILY [facility] Last Admin: 03/08/19 09:57 Dose: 10 mg Arformoterol Tartrate (Brovana (Restricted To Pulmonology/Resp) -) 1 amp NEB RBID [facility] Last Admin: 03/08/19 20:26 Dose: 1 amp Aspirin (Ecotrin -) 81 mg PO DAILY [facility] Last Admin: 03/08/19 09:58 Dose: 81 mg Budesonide/Formoterol Fumarate (Symbicort 160/4.5mcg -) 1 puff IH BID [facility] Last Admin: 03/08/19 21:35 Dose: 1 puff Clopidogrel Bisulfate (Plavix -) 75 mg PO DAILY [facility] Last Admin: 03/08/19 09:58 Dose: 75 mg Ezetimibe (Zetia -) 10 mg PO HS [facility] Last Admin: 03/08/19 21:25 Dose: 10 mg Finasteride (Proscar -) 5 mg PO DAILY [facility] Last Admin: 03/08/19 09:58 Dose: 5 mg Gabapentin (Neurontin -) 800 mg PO TID [facility] Last Admin: 03/08/19 21:30 Dose: 800 mg Heparin Sodium (Porcine) (Heparin -) 5,000 unit SQ TID [facility] Last Admin: 03/08/19 21:30 Dose: 5,000 unit Hydromorphone HCl (Dilaudid -) 4 mg PO Q6H PRN PRN Reason: PAIN LEVEL 7 - 10 Last Admin: 03/08/19 16:31 Dose: 4 mg Insulin Aspart (Novolog Vial Sliding Scale -) 1 vial SQ [facility]; Protocol Last Admin: 03/08/19 22:08 Dose: Not Given Methylprednisolone Sodium Succinate (Solu-Medrol -) 40 mg IVPUSH Q12H [facility] Last Admin: 03/08/19 21:23 Dose: 40 mg Montelukast Sodium (Singulair -) 10 mg PO [facility] Last Admin: 03/08/19 21:23 Dose: 10 mg Non-Formulary Medication (Insulin Pump Controller [Snap Insulin Pump Controller] ) 1 each [facility] Non-Formulary Medication (Mesalamine [Pentasa]) 500 mg PO TID [facility] Nystatin (Nystatin Oral Suspension -) 500,000 units PO Q6HPO [facility] Last Admin: 03/08/19 17:32 Dose: 500,000 units Pancrelipase (Creon Dr 36,000 Units Capsule) 1 cap PO TIDCM [facility] Last Admin: 03/08/19 17:32 Dose: 1 cap Pantoprazole Sodium (Protonix -) 20 mg PO DAILY [facility] Last Admin: 03/08/19 09:58 Dose: 20 mg Polyethylene Glycol (Miralax (For Daily Use) -) 17 gm PO BID [facility] Last Admin: 03/08/19 21:25 Dose: Not Given Rosuvastatin Calcium (Crestor -) 20 mg PO HS [facility] Last Admin: 03/08/19 21:24 Dose: 20 mg Senna/Docusate Sodium (Pericolace -) 1 tablet PO DAILY [facility] Last Admin: 03/08/19 10:03 Dose: Not Given Tamsulosin HCl (Flomax -) 0.4 mg PO DAILY@0830 [facility] Last Admin: 03/08/19 10:00 Dose: 0.4 mg Tapentadol (Nucynta Er -) 150 mg PO BID [facility] Last Admin: 03/08/19 21:22 Dose: 150 mg Tiotropium [place] (Spiriva Respimat) 2 puff IH DAILY [facility] Last Admin: 03/08/19 10:01 Dose: 2 puff Last Vital Signs Temp Pulse Resp BP Pulse Ox 98.4 F 96 H 18 165/92 95 03/08/19 14:47 03/08/19 14:47 03/08/19 14:47 03/08/19 14:47 03/08/19 10:00 Lungs clear heart reg abd soft exr min edema CBC, BMP 03/08/19 06:55 03/08/19 06:55 IMP less chest congestion now on lasix orally continue to monitor clinical status and labs
[2019-03-08] MEDS: AMITRIPTYLINE HCL 75 MG TABLET PO SCH (22:39)
[2019-03-09] MEDS: NYSTATIN 500,000 UNITS/5 ML SUSPENSION PO SCH ×5 (00:15→23:16)
[2019-03-09] MEDS ORDERED: ACETAMINOPHEN 325 MG TABLET (FP) PO PRN ×2 (03:25→03:54)
[2019-03-09] MEDS ORDERED: oxyCODONE HCL 5 MG TABLET PO ONE (03:54)
[2019-03-09] MEDS: HEPARIN NA (PORCINE) 5,000 UNITS/ML 1ML VIAL SQ SCH ×3 (06:06→21:31)
[2019-03-09] MEDS: GABAPENTIN 400 MG CAPSULE (FP) PO SCH ×3 (06:06→21:30)
[2019-03-09] MEDS: INSULIN SLIDING SCALE (NOVOLOG) 1 VIAL SQ SCH ×4 (06:33→21:38)
[2019-03-09 07:20] LABS: HEMATOCRIT 38.9 % (35.4-49); HEMOGLOBIN 12.5 GM/dL (11.7-16.9); MCH 26.7 pg (25.7-33.7); MCHC 32.2 g/dl (32.0-35.9); MEAN CELL VOLUME 82.9 fl (80-96); MEAN PLT VOLUME 7.7 fl (7.5-11.1); PLATELET COUNT 299 K/MM3 (134-434); RDW 15.6 % (11.9-15.9); WHITE BLOOD COUNT 10.6 K/mm3 (4.0-10.0)
[2019-03-09] MEDS: ARFORMOTEROL TARTRATE 15 MCG/2 ML VIAL NEB SCH ×2 (07:22→20:07)
[2019-03-09 07:36] LABS: ALBUMIN 3.5 g/dl (3.4-5.0); BILIRUBIN,TOTAL 0.5 mg/dL (0.2-1); BLOOD UREA NITROGEN 49.7 mg/dL (7-18); CALCIUM 9.7 mg/dL (8.5-10.1); CREATININE 1.9 mg/dL (0.55-1.3); TOT PROT 6.5 g/dl (6.4-8.2)
[2019-03-09] MEDS ORDERED: INSULIN (NOVOLOG) ASPART 100 UNITS/ML 10ML VIAL ONE (08:11)
[2019-03-09] MEDS: LIPASE/PROTEASE/AMYLASE 36,000 UNIT CAPSULE PO SCH ×3 (08:24→17:56)
[2019-03-09] MEDS: TAMSULOSIN HCL 0.4 MG CAP PO SCH (08:25)
--- NOTE | 2019-03-09 11:03 | PN ---
Progress Note, Physician Chief Complaint: COPD Exacerbation Intractable lower back pain CHF History of Present Illness: Previous notes and events reviewed awake and alert NAD sts his breathing is improving denies cough denies chest pain elevated BS--noted with snapple iced tea at bedside - Current Medication List Current Medications: Active Medications Acetaminophen (Tylenol -) 325 mg PO Q6H PRN PRN Reason: MILD PAIN Al Hydroxide/Mg Hydroxide (Mylanta Suspension -) 30 ml PO Q6H PRN PRN Reason: DYSPEPSIA Amitriptyline HCl (Elavil -) 75 mg PO [facility] Last Admin: 03/08/19 22:39 Dose: 75 mg Amlodipine Besylate (Norvasc -) 10 mg PO DAILY [facility] Last Admin: 03/08/19 09:57 Dose: 10 mg Arformoterol Tartrate (Brovana (Restricted To Pulmonology/Resp) -) 1 amp NEB RBID [facility] Last Admin: 03/09/19 07:22 Dose: 1 amp Aspirin (Ecotrin -) 81 mg PO DAILY [facility] Last Admin: 03/08/19 09:58 Dose: 81 mg Budesonide/Formoterol Fumarate (Symbicort 160/4.5mcg -) 1 puff IH BID [facility] Last Admin: 03/08/19 21:35 Dose: 1 puff Clopidogrel Bisulfate (Plavix -) 75 mg PO DAILY [facility] Last Admin: 03/08/19 09:58 Dose: 75 mg Ezetimibe (Zetia -) 10 mg PO HS [facility] Last Admin: 03/08/19 21:25 Dose: 10 mg Finasteride (Proscar -) 5 mg PO DAILY [facility] Last Admin: 03/08/19 09:58 Dose: 5 mg Gabapentin (Neurontin -) 800 mg PO TID [facility] Last Admin: 03/09/19 06:06 Dose: 800 mg Heparin Sodium (Porcine) (Heparin -) 5,000 unit SQ TID [facility] Last Admin: 03/09/19 06:06 Dose: 5,000 unit Hydromorphone HCl (Dilaudid -) 4 mg PO Q6H PRN PRN Reason: PAIN LEVEL 7 - 10 Insulin Aspart (Novolog Vial Sliding Scale -) 1 vial SQ [facility]; Protocol Last Admin: 03/09/19 06:33 Dose: Not Given Methylprednisolone Sodium Succinate (Solu-Medrol -) 40 mg IVPUSH Q12H [facility] Last Admin: 03/08/19 21:23 Dose: 40 mg Montelukast Sodium (Singulair -) 10 mg PO HS [facility] Last Admin: 03/08/19 21:23 Dose: 10 mg Non-Formulary Medication (Insulin Pump Controller [Snap Insulin Pump Controller] ) 1 each [facility] Non-Formulary Medication (Mesalamine [Pentasa]) 500 mg PO TID [facility] Nystatin (Nystatin Oral Suspension -) 500,000 units PO Q6HPO [facility] Last Admin: 03/09/19 06:06 Dose: 500,000 units Oxycodone HCl (Roxicodone -) 10 mg PO BID [facility] Pancrelipase (Creon Dr 36,000 Units Capsule) 1 cap PO TIDCM [facility] Last Admin: 03/08/19 17:32 Dose: 1 cap Pantoprazole Sodium (Protonix -) 20 mg PO DAILY [facility] Last Admin: 03/08/19 09:58 Dose: 20 mg Polyethylene Glycol (Miralax (For Daily Use) -) 17 gm PO BID [facility] Last Admin: 03/08/19 21:25 Dose: Not Given Rosuvastatin Calcium (Crestor -) 20 mg PO [facility] Last Admin: 03/08/19 21:24 Dose: 20 mg Senna/Docusate Sodium (Pericolace -) 1 tablet PO DAILY [facility] Last Admin: 03/08/19 10:03 Dose: Not Given Tamsulosin HCl (Flomax -) 0.4 mg PO DAILY@0830 [facility] Last Admin: 03/08/19 10:00 Dose: 0.4 mg Tapentadol (Nucynta Er -) 150 mg PO BID [facility] Last Admin: 03/08/19 21:22 Dose: 150 mg Tiotropium [place] (Spiriva Respimat) 2 puff IH DAILY [facility] Last Admin: 03/08/19 10:01 Dose: 2 puff - Objective Vital Signs: Vital Signs Temperature 97.9 F 03/09/19 05:59 Pulse Rate 95 H 03/09/19 05:59 Respiratory Rate 20 03/09/19 05:59 Blood Pressure 161/96 03/09/19 05:59 O2 Sat by Pulse Oximetry (%) 96 03/08/19 21:00 Constitutional: Yes: No Distress, Calm, Obese Eyes: Yes: Conjunctiva Clear HENT: Yes: Atraumatic Cardiovascular: Yes: Regular Rate and Rhythm Respiratory: Yes: Regular, Wheezes Gastrointestinal: Yes: Normal Bowel Sounds, Soft, Abdomen, Obese Musculoskeletal: Yes: Muscle Weakness Extremities: Yes: WNL Edema: Yes Edema: LLE: 1+, RLE: 2+ Neurological: Yes: Alert, Oriented Psychiatric: Yes: Alert, Oriented Labs: CBC, BMP 03/09/19 06:20 03/09/19 06:20 Problem List - Problems (1) BMI 39.0-39.9,adult Assessment/Plan: -Dietary consult Code(s): Z68.39 - BODY MASS INDEX (BMI) 39.0-39.9, ADULT (2) COPD exacerbation Assessment/Plan: -Pulm on board -O2 via NC -keep SpO2 >90% -Symbicort, Brovanna, Spiriva -bronchodilators -IV Medrol Code(s): J44.1 - CHRONIC OBSTRUCTIVE PULMONARY DISEASE W (ACUTE) EXACERBATION (3) Diastolic CHF Assessment/Plan: -Cardiology on board -1L fluid restriction -daily weights -strict I&Os Code(s): I50.30 - UNSPECIFIED DIASTOLIC (CONGESTIVE) HEART FAILURE (4) Leg edema Assessment/Plan: -keep legs elevated Code(s): R60.0 - LOCALIZED EDEMA (5) Renal insufficiency Assessment/Plan: -Renal on board -BUN/Cr 49.7/1.9 -continue to monitor renal function Code(s): N28.9 - DISORDER OF KIDNEY AND URETER, UNSPECIFIED (6) HTN (hypertension) Assessment/Plan: -Norvasc, Chlorthalidone -low Na diet Code(s): I10 - ESSENTIAL (PRIMARY) HYPERTENSION (7) Hyperlipidemia Assessment/Plan: -Zetia, Crestor Code(s): E78.5 - HYPERLIPIDEMIA, UNSPECIFIED (8) Diabetes mellitus Assessment/Plan: -BGM ACHS -Insulin pump -ISS -diabetic diet Code(s): E11.9 - TYPE 2 DIABETES MELLITUS WITHOUT COMPLICATIONS Qualifiers: Diabetes mellitus type: type 2 (9) Intractable low back pain Assessment/Plan: -Pain consult -Dilaudid, Nucynta, Percocet -Neurosurgery consult Code(s): M54.5 - LOW BACK PAIN (10) Abdominal pain Assessment/Plan: -Abdominal US shows fatty enlarged liver, possible gallstone -GI on board Code(s): R10.9 - UNSPECIFIED ABDOMINAL PAIN (11) Hyperkalemia Assessment/Plan: -K 5.0 -resolved -renal on board Code(s): E87.5 - HYPERKALEMIA Assessment/Plan see problem list dvt ppx
[2019-03-09] MEDS: TAPENTADOL HCL 50 MG TAB.ER.12H PO SCH ×2 (11:22→21:30)
[2019-03-09] MEDS: amLODIPine BESYLATE 10 MG TABLET (FP) PO SCH (11:23)
[2019-03-09] MEDS: FINASTERIDE 5 MG TABLET (FP) PO SCH (11:23)
[2019-03-09] MEDS: CLOPIDOGREL BISULFATE 75 MG TABLET (FP) PO SCH (11:23)
[2019-03-09] MEDS: ASPIRIN COATED 81 MG TABLET.EC PO SCH (11:25)
[2019-03-09] MEDS: PANTOPRAZOLE 20 MG TABLET (FP) PO SCH (11:25)
[2019-03-09] MEDS: methylPREDNISolone NA SUCC 40 MG/1 ML VIAL IVPUSH SCH ×2 (11:26→21:33)
[2019-03-09] MEDS: oxyCODONE HCL 5 MG TABLET PO SCH ×2 (11:27→21:32)
[2019-03-09] MEDS: SENNOSIDES/DOCUSATE COMBO (SENNA PLUS) TABLET (UD) PO SCH (11:28)
[2019-03-09] MEDS: POLYETHYLENE GLYCOL 3350 119 GM BTL PO SCH ×2 (11:28→21:37)
[2019-03-09] MEDS: BUDESONIDE/FORMETEROL FUMARATE 160/4.5 mcg INHALER IH SCH ×2 (11:31→21:37)
[2019-03-09] MEDS: TIOTROPIUM BROMIDE 2.5 MCG (SPIRIVA) RESPIMAT INHALER IH SCH (11:32)
--- NOTE | 2019-03-09 12:59 | PN ---
Progress Note (short form) - Note Progress Note: PULMONARY Breathing about the same. Still with cough and wheezing. No fevers or chills. Vital Signs Period Temp Pulse Resp BP Sys/Gates Pulse Ox Last 24 Hr 97.4 F-98.6 F 94-107 18-20 157-171/78-119 96-97 Gen: NAD in chair Heart: RRR Lung: scattered rhonchi Abd: soft, nontender Ext: + edema CBC, BMP 03/09/19 06:20 03/09/19 06:20 Active Medications Acetaminophen (Tylenol -) 325 mg PO Q6H PRN PRN Reason: MILD PAIN Al Hydroxide/Mg Hydroxide (Mylanta Suspension -) 30 ml PO Q6H PRN PRN Reason: DYSPEPSIA Amitriptyline HCl (Elavil -) 75 mg PO HS [facility] Last Admin: 03/08/19 22:39 Dose: 75 mg Amlodipine Besylate (Norvasc -) 10 mg PO DAILY [facility] Last Admin: 03/09/19 11:23 Dose: 10 mg Arformoterol Tartrate (Brovana (Restricted To Pulmonology/Resp) -) 1 amp NEB RBID [facility] Last Admin: 03/09/19 07:22 Dose: 1 amp Aspirin (Ecotrin -) 81 mg PO DAILY [facility] Last Admin: 03/09/19 11:25 Dose: 81 mg Budesonide/Formoterol Fumarate (Symbicort 160/4.5mcg -) 1 puff IH BID [facility] Last Admin: 03/09/19 11:31 Dose: 1 puff Clopidogrel Bisulfate (Plavix -) 75 mg PO DAILY [facility] Last Admin: 03/09/19 11:23 Dose: 75 mg Ezetimibe (Zetia -) 10 mg PO HS [facility] Last Admin: 03/08/19 21:25 Dose: 10 mg Finasteride (Proscar -) 5 mg PO DAILY [facility] Last Admin: 03/09/19 11:23 Dose: 5 mg Gabapentin (Neurontin -) 800 mg PO TID [facility] Last Admin: 03/09/19 06:06 Dose: 800 mg Heparin Sodium (Porcine) (Heparin -) 5,000 unit SQ TID [facility] Last Admin: 03/09/19 06:06 Dose: 5,000 unit Hydromorphone HCl (Dilaudid -) 4 mg PO Q6H PRN PRN Reason: PAIN LEVEL 7 - 10 Insulin Aspart (Novolog Vial Sliding Scale -) 1 vial SQ ACHS [facility]; Protocol Last Admin: 03/09/19 11:26 Dose: 8 units Methylprednisolone Sodium Succinate (Solu-Medrol -) 40 mg IVPUSH Q12H [facility] Last Admin: 03/09/19 11:26 Dose: 40 mg Montelukast Sodium (Singulair -) 10 mg PO HS [facility] Last Admin: 03/08/19 21:23 Dose: 10 mg Non-Formulary Medication (Insulin Pump Controller [Snap Insulin Pump Controller] ) 1 each MC ASDIR [facility] Non-Formulary Medication (Mesalamine [Pentasa]) 500 mg PO TID [facility] Nystatin (Nystatin Oral Suspension -) 500,000 units PO Q6HPO [facility] Last Admin: 03/09/19 06:06 Dose: 500,000 units Oxycodone HCl (Roxicodone -) 10 mg PO BID [facility] Last Admin: 03/09/19 11:27 Dose: 10 mg Pancrelipase (Creon Dr 36,000 Units Capsule) 1 cap PO TIDCM [facility] Last Admin: 03/09/19 11:24 Dose: 1 cap Pantoprazole Sodium (Protonix -) 20 mg PO DAILY [facility] Last Admin: 03/09/19 11:25 Dose: 20 mg Polyethylene Glycol (Miralax (For Daily Use) -) 17 gm PO BID [facility] Last Admin: 03/09/19 11:28 Dose: 17 gm Rosuvastatin Calcium (Crestor -) 20 mg PO [facility] Last Admin: 03/08/19 21:24 Dose: 20 mg Senna/Docusate Sodium (Pericolace -) 1 tablet PO DAILY [facility] Last Admin: 03/09/19 11:28 Dose: 1 tablet Tamsulosin HCl (Flomax -) 0.4 mg PO DAILY@0830 [facility] Last Admin: 03/09/19 08:25 Dose: 0.4 mg Tapentadol (Nucynta Er -) 150 mg PO BID [facility] Last Admin: 03/09/19 11:22 Dose: 150 mg Tiotropium [place] (Spiriva Respimat) 2 puff IH DAILY [facility] Last Admin: 03/09/19 11:32 Dose: 2 puff A/P Acute COPD Exacerbation improving Acute on Chronic Diastolic Heart Failure Chronic Hypoxic Respiratory Failure Obstructive Sleep Apnea s/p Tracheostomy CAD s/p CABG HTN DM Hyperlipidemia Spinal Stenosis Chronic Pain Syndrome Opiate Dependence Acute on chronic kidney disease - continue medrol same dose, can likely decrease in AM if continues to improve - inhaled bronchodilators standing and PRN - O2 to keep Spo2 >90% - glucose control while on systemic steroids - monitor urine output, creatinine - uncap tracheostomy when sleeping - pain control - DVT prophylaxis Problem List - Problems (1) COPD exacerbation Code(s): J44.1 - CHRONIC OBSTRUCTIVE PULMONARY DISEASE W (ACUTE) EXACERBATION
[2019-03-09] MEDS: HYDROmorphone HCL 2 MG TABLET PO PRN (13:10)
[2019-03-09] MEDS ORDERED: PT OWN MED DRAWER 7, Y5N ONE (21:21)
[2019-03-09] MEDS: ROSUVASTATIN CA 20 MG TABLET (FP) PO SCH (21:31)
[2019-03-09] MEDS: MONTELUKAST NA 10 MG TABLET PO SCH (21:31)
[2019-03-09] MEDS: EZETIMIBE 10 MG TABLET (FP) PO SCH (21:31)
[2019-03-09] MEDS: AMITRIPTYLINE HCL 75 MG TABLET PO SCH (21:33)
--- NOTE | 2019-03-09 23:18 | PN ---
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 chf Current Medications Acetaminophen (Tylenol -) 325 mg PO Q6H PRN PRN Reason: MILD PAIN Al Hydroxide/Mg Hydroxide (Mylanta Suspension -) 30 ml PO Q6H PRN PRN Reason: DYSPEPSIA Amitriptyline HCl (Elavil -) 75 mg PO HS [facility] Last Admin: 03/09/19 21:33 Dose: 75 mg Amlodipine Besylate (Norvasc -) 10 mg PO DAILY [facility] Last Admin: 03/09/19 11:23 Dose: 10 mg Arformoterol Tartrate (Brovana (Restricted To Pulmonology/Resp) -) 1 amp NEB RBID [facility] Last Admin: 03/09/19 20:07 Dose: 1 amp Aspirin (Ecotrin -) 81 mg PO DAILY [facility] Last Admin: 03/09/19 11:25 Dose: 81 mg Budesonide/Formoterol Fumarate (Symbicort 160/4.5mcg -) 1 puff IH BID [facility] Last Admin: 03/09/19 21:37 Dose: 1 puff Clopidogrel Bisulfate (Plavix -) 75 mg PO DAILY [facility] Last Admin: 03/09/19 11:23 Dose: 75 mg Ezetimibe (Zetia -) 10 mg PO HS [facility] Last Admin: 03/09/19 21:31 Dose: 10 mg Finasteride (Proscar -) 5 mg PO DAILY [facility] Last Admin: 03/09/19 11:23 Dose: 5 mg Gabapentin (Neurontin -) 800 mg PO TID [facility] Last Admin: 03/09/19 21:30 Dose: 800 mg Heparin Sodium (Porcine) (Heparin -) 5,000 unit SQ TID [facility] Last Admin: 03/09/19 21:31 Dose: 5,000 unit Hydromorphone HCl (Dilaudid -) 4 mg PO Q6H PRN PRN Reason: PAIN LEVEL 7 - 10 Last Admin: 03/09/19 13:10 Dose: 4 mg Insulin Aspart (Novolog Vial Sliding Scale -) 1 vial SQ [facility]; Protocol Last Admin: 03/09/19 21:38 Dose: Not Given Methylprednisolone Sodium Succinate (Solu-Medrol -) 40 mg IVPUSH Q12H [facility] Last Admin: 03/09/19 21:33 Dose: 40 mg Montelukast Sodium (Singulair -) 10 mg PO HS [facility] Last Admin: 03/09/19 21:31 Dose: 10 mg Non-Formulary Medication (Insulin Pump Controller [Snap Insulin Pump Controller] ) 1 each MC ASDIR [facility] Non-Formulary Medication (Mesalamine [Pentasa]) 500 mg PO TID [facility] Nystatin (Nystatin Oral Suspension -) 500,000 units PO Q6HPO [facility] Last Admin: 03/09/19 23:16 Dose: 500,000 units Oxycodone HCl (Roxicodone -) 10 mg PO BID [facility] Last Admin: 03/09/19 21:32 Dose: 10 mg Pancrelipase (Creon Dr 36,000 Units Capsule) 1 cap PO TIDCM [facility] Last Admin: 03/09/19 17:56 Dose: 1 cap Pantoprazole Sodium (Protonix -) 20 mg PO DAILY [facility] Last Admin: 03/09/19 11:25 Dose: 20 mg Polyethylene Glycol (Miralax (For Daily Use) -) 17 gm PO BID [facility] Last Admin: 03/09/19 21:37 Dose: 17 gm Rosuvastatin Calcium (Crestor -) 20 mg PO HS [facility] Last Admin: 03/09/19 21:31 Dose: 20 mg Senna/Docusate Sodium (Pericolace -) 1 tablet PO DAILY [facility] Last Admin: 03/09/19 11:28 Dose: 1 tablet Tamsulosin HCl (Flomax -) 0.4 mg PO DAILY@0830 [facility] Last Admin: 03/09/19 08:25 Dose: 0.4 mg Tapentadol (Nucynta Er -) 150 mg PO BID [facility] Last Admin: 03/09/19 21:30 Dose: 150 mg Tiotropium [place] (Spiriva Respimat) 2 puff IH DAILY [facility] Last Admin: 03/09/19 11:32 Dose: 2 puff Last Vital Signs Temp Pulse Resp BP Pulse Ox 98.8 F 100 H 20 157/103 H 100 03/09/19 21:04 03/09/19 21:04 03/09/19 21:04 03/09/19 21:04 03/09/19 20:57 Lungs clear heart reg abd soft exr min edema CBC, BMP 03/09/19 06:20 03/09/19 06:20 CBC, BMP 03/08/19 06:55 03/08/19 06:55 IMP increased azotemia r/o volume depletion copd chf
[2019-03-10] MEDS: GABAPENTIN 400 MG CAPSULE (FP) PO SCH ×3 (06:02→21:23)
[2019-03-10] MEDS: NYSTATIN 500,000 UNITS/5 ML SUSPENSION PO SCH ×3 (06:02→18:41)
[2019-03-10] MEDS: HEPARIN NA (PORCINE) 5,000 UNITS/ML 1ML VIAL SQ SCH ×3 (06:02→21:23)
[2019-03-10] MEDS: INSULIN SLIDING SCALE (NOVOLOG) 1 VIAL SQ SCH ×4 (06:04→21:29)
[2019-03-10] MEDS ORDERED: amLODIPine BESYLATE 10 MG TABLET (FP) PO ONE (06:43)
[2019-03-10] MEDS: ARFORMOTEROL TARTRATE 15 MCG/2 ML VIAL NEB SCH ×2 (07:44→20:50)
[2019-03-10] MEDS: LIPASE/PROTEASE/AMYLASE 36,000 UNIT CAPSULE PO SCH ×3 (08:00→17:41)
[2019-03-10 08:20] LABS: HEMATOCRIT 36.3 % (35.4-49); HEMOGLOBIN 11.8 GM/dL (11.7-16.9); MCH 26.6 pg (25.7-33.7); MCHC 32.4 g/dl (32.0-35.9); MEAN PLT VOLUME 7.5 fl (7.5-11.1); PLATELET COUNT 292 K/MM3 (134-434); RBC 4.43 M/mm3 (4.00-5.60); RDW 15.3 % (11.9-15.9); WHITE BLOOD COUNT 13.9 K/mm3 (4.0-10.0)
[2019-03-10 08:51] LABS: ALBUMIN 3.1 g/dl (3.4-5.0); BILIRUBIN,TOTAL 0.4 mg/dL (0.2-1); CALCIUM 9.7 mg/dL (8.5-10.1); CREATININE 1.7 mg/dL (0.55-1.3); POTASSIUM 4.4 mmol/L (3.5-5.1)
[2019-03-10] MEDS ORDERED: PT OWN MED DRAWER 7, Y5N ONE (09:31)
[2019-03-10] MEDS: FINASTERIDE 5 MG TABLET (FP) PO SCH (09:35)
[2019-03-10] MEDS: ASPIRIN COATED 81 MG TABLET.EC PO SCH (09:36)
[2019-03-10] MEDS: TAMSULOSIN HCL 0.4 MG CAP PO SCH (09:36)
[2019-03-10] MEDS: PANTOPRAZOLE 20 MG TABLET (FP) PO SCH (09:37)
[2019-03-10] MEDS: oxyCODONE HCL 5 MG TABLET PO SCH ×2 (09:37→21:23)
[2019-03-10] MEDS: CLOPIDOGREL BISULFATE 75 MG TABLET (FP) PO SCH (09:37)
[2019-03-10] MEDS: SENNOSIDES/DOCUSATE COMBO (SENNA PLUS) TABLET (UD) PO SCH (09:37)
[2019-03-10] MEDS: methylPREDNISolone NA SUCC 40 MG/1 ML VIAL IVPUSH SCH ×2 (09:38→21:23)
[2019-03-10] MEDS: BUDESONIDE/FORMETEROL FUMARATE 160/4.5 mcg INHALER IH SCH ×2 (09:55→21:30)
[2019-03-10] MEDS: TIOTROPIUM BROMIDE 2.5 MCG (SPIRIVA) RESPIMAT INHALER IH SCH (09:56)
[2019-03-10] MEDS: amLODIPine BESYLATE 10 MG TABLET (FP) PO SCH (11:10)
[2019-03-10] MEDS: hydrALAZINE HCL 25 MG TABLET (FP) PO SCH ×2 (11:14→21:23)
[2019-03-10] MEDS: ISOSORBIDE MONONITRATE 30 MG TAB.SR.24H (FP) PO SCH (11:14)
[2019-03-10] MEDS: POLYETHYLENE GLYCOL 3350 119 GM BTL PO SCH ×2 (11:15→21:24)
[2019-03-10] MEDS: HYDROmorphone HCL 2 MG TABLET PO PRN ×2 (13:15→18:45)
--- NOTE | 2019-03-10 14:10 | PN ---
Progress Note, Physician Chief Complaint: COPD Exacerbation Intractable lower back pain CHF History of Present Illness: Previous notes and events reviewed awake and alert NAD sts his breathing is improving BP elevated 164/117 this AM, started on Hydralazine and Imdur - Current Medication List Current Medications: Active Medications Acetaminophen (Tylenol -) 325 mg PO Q6H PRN PRN Reason: MILD PAIN Al Hydroxide/Mg Hydroxide (Mylanta Suspension -) 30 ml PO Q6H PRN PRN Reason: DYSPEPSIA Amitriptyline HCl (Elavil -) 75 mg PO HS [facility] Last Admin: 03/09/19 21:33 Dose: 75 mg Amlodipine Besylate (Norvasc -) 10 mg PO DAILY [facility] Last Admin: 03/10/19 11:10 Dose: Not Given Arformoterol Tartrate (Brovana (Restricted To Pulmonology/Resp) -) 1 amp NEB RBID [facility] Last Admin: 03/10/19 07:44 Dose: 1 amp Aspirin (Ecotrin -) 81 mg PO DAILY [facility] Last Admin: 03/10/19 09:36 Dose: 81 mg Budesonide/Formoterol Fumarate (Symbicort 160/4.5mcg -) 1 puff IH BID [facility] Last Admin: 03/10/19 09:55 Dose: 1 puff Clopidogrel Bisulfate (Plavix -) 75 mg PO DAILY [facility] Last Admin: 03/10/19 09:37 Dose: 75 mg Ezetimibe (Zetia -) 10 mg PO HS [facility] Last Admin: 03/09/19 21:31 Dose: 10 mg Finasteride (Proscar -) 5 mg PO DAILY [facility] Last Admin: 03/10/19 09:35 Dose: 5 mg Gabapentin (Neurontin -) 800 mg PO TID [facility] Last Admin: 03/10/19 13:15 Dose: 800 mg Heparin Sodium (Porcine) (Heparin -) 5,000 unit SQ TID [facility] Last Admin: 03/10/19 13:14 Dose: 5,000 unit Hydralazine HCl (Apresoline -) 25 mg PO BID [facility] Last Admin: 03/10/19 11:14 Dose: 25 mg Hydromorphone HCl (Dilaudid -) 4 mg PO Q6H PRN PRN Reason: PAIN LEVEL 7 - 10 Last Admin: 03/10/19 13:15 Dose: 4 mg Insulin Aspart (Novolog Vial Sliding Scale -) 1 vial SQ ACHS [facility]; Protocol Last Admin: 03/10/19 11:38 Dose: Not Given Isosorbide Mononitrate (Imdur -) 30 mg PO DAILY [facility] Last Admin: 03/10/19 11:14 Dose: 30 mg Methylprednisolone Sodium Succinate (Solu-Medrol -) 40 mg IVPUSH Q12H [facility] Last Admin: 03/10/19 09:38 Dose: 40 mg Montelukast Sodium (Singulair -) 10 mg PO [facility] Last Admin: 03/09/19 21:31 Dose: 10 mg Nystatin (Nystatin Oral Suspension -) 500,000 units PO Q6HPO [facility] Last Admin: 03/10/19 12:55 Dose: 500,000 units Oxycodone HCl (Roxicodone -) 10 mg PO BID [facility] Last Admin: 03/10/19 09:37 Dose: 10 mg Pancrelipase (Creon Dr 36,000 Units Capsule) 1 cap PO TIDCM [facility] Last Admin: 03/10/19 11:17 Dose: 1 cap Pantoprazole Sodium (Protonix -) 20 mg PO DAILY [facility] Last Admin: 03/10/19 09:37 Dose: 20 mg Polyethylene Glycol (Miralax (For Daily Use) -) 17 gm PO BID [facility] Last Admin: 03/10/19 11:15 Dose: Not Given Rosuvastatin Calcium (Crestor -) 20 mg PO [facility] Last Admin: 03/09/19 21:31 Dose: 20 mg Senna/Docusate Sodium (Pericolace -) 1 tablet PO DAILY [facility] Last Admin: 03/10/19 09:37 Dose: 1 tablet Tamsulosin HCl (Flomax -) 0.4 mg PO DAILY@0830 [facility] Last Admin: 03/10/19 09:36 Dose: 0.4 mg Tiotropium [place] (Spiriva Respimat) 2 puff IH DAILY [facility] Last Admin: 03/10/19 09:56 Dose: 2 puff - Objective Vital Signs: Vital Signs Temperature 98.3 F 03/10/19 12:30 Pulse Rate 97 H 03/10/19 12:30 Respiratory Rate 20 03/10/19 12:30 Blood Pressure 147/89 03/10/19 12:30 O2 Sat by Pulse Oximetry (%) 100 03/10/19 10:00 Constitutional: Yes: No Distress, Calm, Obese Eyes: Yes: Conjunctiva Clear HENT: Yes: Atraumatic Neck: Yes: Supple Cardiovascular: Yes: Regular Rate and Rhythm Respiratory: Yes: Regular, Wheezes Gastrointestinal: Yes: Normal Bowel Sounds, Soft, Abdomen, Obese Musculoskeletal: Yes: Muscle Weakness Extremities: Yes: WNL Edema: Yes Edema: LLE: Trace, RLE: 1+ Neurological: Yes: Alert, Oriented Psychiatric: Yes: Alert, Oriented Labs: CBC, BMP 03/10/19 07:27 03/10/19 07:27 Problem List - Problems (1) BMI 39.0-39.9,adult Assessment/Plan: -Dietary consult Code(s): Z68.39 - BODY MASS INDEX (BMI) 39.0-39.9, ADULT (2) COPD exacerbation Assessment/Plan: -Pulm on board -O2 via NC -keep SpO2 >90% -Symbicort, Brovanna, Spiriva -bronchodilators -IV Medrol Code(s): J44.1 - CHRONIC OBSTRUCTIVE PULMONARY DISEASE W (ACUTE) EXACERBATION (3) Diastolic CHF Assessment/Plan: -Cardiology on board -1L fluid restriction -daily weights -strict I&Os Code(s): I50.30 - UNSPECIFIED DIASTOLIC (CONGESTIVE) HEART FAILURE (4) Leg edema Assessment/Plan: -keep legs elevated Code(s): R60.0 - LOCALIZED EDEMA (5) Renal insufficiency Assessment/Plan: -Renal on board -BUN/Cr 49.7/1.9 -continue to monitor renal function Code(s): N28.9 - DISORDER OF KIDNEY AND URETER, UNSPECIFIED (6) HTN (hypertension) Assessment/Plan: -Norvasc, Chlorthalidone -Hydralazine BID and Imdur added to regimen -low Na diet Code(s): I10 - ESSENTIAL (PRIMARY) HYPERTENSION (7) Hyperlipidemia Assessment/Plan: -Zetia, Crestor Code(s): E78.5 - HYPERLIPIDEMIA, UNSPECIFIED (8) Diabetes mellitus Assessment/Plan: -BGM ACHS -Insulin pump -ISS -diabetic diet Code(s): E11.9 - TYPE 2 DIABETES MELLITUS WITHOUT COMPLICATIONS Qualifiers: Diabetes mellitus type: type 2 (9) Intractable low back pain Assessment/Plan: -Pain consult -Dilaudid, Nucynta, Percocet -Neurosurgery consult Code(s): M54.5 - LOW BACK PAIN (10) Abdominal pain Assessment/Plan: -Abdominal US shows fatty enlarged liver, possible gallstone -GI on board Code(s): R10.9 - UNSPECIFIED ABDOMINAL PAIN (11) Hyperkalemia Assessment/Plan: -K 4.4 -resolved -renal on board Code(s): E87.5 - HYPERKALEMIA Assessment/Plan see problem list dvt ppx
[2019-03-10] MEDS ORDERED: cloNIDine HCL 0.1 MG TABLET PO ONE (14:46)
--- NOTE | 2019-03-10 14:49 | PN ---
Progress Note (short form) - Note Progress Note: PULMONARY Still with cough and wheezing. VSS/Afebrile Gen: NAD in chair Heart: RRR Lung: scattered rhonchi Abd: soft, nontender Ext: + edema Active Medications reviewed A/P Acute COPD Exacerbation improving Acute on Chronic Diastolic Heart Failure Chronic Hypoxic Respiratory Failure Obstructive Sleep Apnea s/p Tracheostomy CAD s/p CABG HTN DM Hyperlipidemia Spinal Stenosis Chronic Pain Syndrome Opiate Dependence Acute on chronic kidney disease - continue medrol same dose - inhaled bronchodilators standing and PRN - O2 to keep Spo2 >90% - glucose control while on systemic steroids - monitor urine output, creatinine - uncap tracheostomy when sleeping - pain control - DVT prophylaxis Christian NOEL MD
[2019-03-10] MEDS: PATIENT'S OWN MEDICATION (NON-FORMULARY) (Mesalamine [Pentasa] 500 MG) PO SCH ×3 (14:58→15:00)
[2019-03-10] MEDS: PATIENT'S OWN MEDICATION (NON-FORMULARY) (Insulin Pump Controller [Snap Insulin Pump Contr MC SCH ×2 (15:00→15:01)
--- NOTE | 2019-03-10 15:21 | PN ---
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 chf Current Medications Acetaminophen (Tylenol -) 325 mg PO Q6H PRN PRN Reason: MILD PAIN Al Hydroxide/Mg Hydroxide (Mylanta Suspension -) 30 ml PO Q6H PRN PRN Reason: DYSPEPSIA Amitriptyline HCl (Elavil -) 75 mg PO HS [facility] Last Admin: 03/09/19 21:33 Dose: 75 mg Amlodipine Besylate (Norvasc -) 10 mg PO DAILY [facility] Last Admin: 03/10/19 11:10 Dose: Not Given Arformoterol Tartrate (Brovana (Restricted To Pulmonology/Resp) -) 1 amp NEB RBID [facility] Last Admin: 03/10/19 07:44 Dose: 1 amp Aspirin (Ecotrin -) 81 mg PO DAILY [facility] Last Admin: 03/10/19 09:36 Dose: 81 mg Budesonide/Formoterol Fumarate (Symbicort 160/4.5mcg -) 1 puff IH BID [facility] Last Admin: 03/10/19 09:55 Dose: 1 puff Clopidogrel Bisulfate (Plavix -) 75 mg PO DAILY [facility] Last Admin: 03/10/19 09:37 Dose: 75 mg Ezetimibe (Zetia -) 10 mg PO [facility] Last Admin: 03/09/19 21:31 Dose: 10 mg Finasteride (Proscar -) 5 mg PO DAILY [facility] Last Admin: 03/10/19 09:35 Dose: 5 mg Gabapentin (Neurontin -) 800 mg PO TID [facility] Last Admin: 03/10/19 13:15 Dose: 800 mg Heparin Sodium (Porcine) (Heparin -) 5,000 unit SQ TID [facility] Last Admin: 03/10/19 13:14 Dose: 5,000 unit Hydralazine HCl (Apresoline -) 25 mg PO BID [facility] Last Admin: 03/10/19 11:14 Dose: 25 mg Hydromorphone HCl (Dilaudid -) 4 mg PO Q6H PRN PRN Reason: PAIN LEVEL 7 - 10 Last Admin: 03/10/19 13:15 Dose: 4 mg Insulin Aspart (Novolog Vial Sliding Scale -) 1 vial SQ [facility]; Protocol Last Admin: 03/10/19 11:38 Dose: Not Given Isosorbide Mononitrate (Imdur -) 30 mg PO DAILY [facility] Last Admin: 03/10/19 11:14 Dose: 30 mg Methylprednisolone Sodium Succinate (Solu-Medrol -) 40 mg IVPUSH Q12H [facility] Last Admin: 03/10/19 09:38 Dose: 40 mg Montelukast Sodium (Singulair -) 10 mg PO HS [facility] Last Admin: 03/09/19 21:31 Dose: 10 mg Nystatin (Nystatin Oral Suspension -) 500,000 units PO Q6HPO [facility] Last Admin: 03/10/19 12:55 Dose: 500,000 units Oxycodone HCl (Roxicodone -) 10 mg PO BID [facility] Last Admin: 03/10/19 09:37 Dose: 10 mg Pancrelipase (Creon Dr 36,000 Units Capsule) 1 cap PO TIDCM [facility] Last Admin: 03/10/19 11:17 Dose: 1 cap Pantoprazole Sodium (Protonix -) 20 mg PO DAILY [facility] Last Admin: 03/10/19 09:37 Dose: 20 mg Polyethylene Glycol (Miralax (For Daily Use) -) 17 gm PO BID [facility] Last Admin: 03/10/19 11:15 Dose: Not Given Rosuvastatin Calcium (Crestor -) 20 mg PO [facility] Last Admin: 03/09/19 21:31 Dose: 20 mg Senna/Docusate Sodium (Pericolace -) 1 tablet PO DAILY [facility] Last Admin: 03/10/19 09:37 Dose: 1 tablet Tamsulosin HCl (Flomax -) 0.4 mg PO DAILY@0830 [facility] Last Admin: 03/10/19 09:36 Dose: 0.4 mg Tiotropium [place] (Spiriva Respimat) 2 puff IH DAILY [facility] Last Admin: 03/10/19 09:56 Dose: 2 puff Last Vital Signs Temp Pulse Resp BP Pulse Ox 98.3 F 97 H 20 147/89 100 03/10/19 14:23 03/10/19 14:23 03/10/19 14:23 03/10/19 14:23 03/10/19 10:00 Lungs clear heart reg abd soft exr min edema CBC, BMP 03/10/19 07:27 03/10/19 07:27 CBC, BMP 03/09/19 06:20 03/09/19 06:20 IMP increased azotemia is now resolving may be volume mediated copd chf Plan- continue to provide oral fluids monitor weights
--- NOTE | 2019-03-10 15:55 | PN ---
Progress Note (short form) - Note Progress Note: Transaminases continue to be mildly elevated. Medication elimination as feasible. ? need for Zetia. D/C if feasible Discontinue nystatin solution if feasible I discontinued acetaminophen Other medication eliminations as feasible Problem List - Problems (1) Elevated LFTs Code(s): R94.5 - ABNORMAL RESULTS OF LIVER FUNCTION STUDIES
[2019-03-10] MEDS: AMITRIPTYLINE HCL 75 MG TABLET PO SCH (21:23)
[2019-03-10] MEDS: ROSUVASTATIN CA 20 MG TABLET (FP) PO SCH (21:23)
[2019-03-10] MEDS: MONTELUKAST NA 10 MG TABLET PO SCH (21:23)
[2019-03-10] MEDS: EZETIMIBE 10 MG TABLET (FP) PO SCH (21:24)
[2019-03-11] MEDS: NYSTATIN 500,000 UNITS/5 ML SUSPENSION PO SCH ×4 (00:50→17:07)
--- NOTE | 2019-03-11 02:32 | PN ---
Progress Note, Physician Chief Complaint: Pt A&Ox3; no chest pain or dyspnea. History of Present Illness: 63 year old black man with a significant past medical history of CAD s/p [place], stents x6 (most recently 12/2015), CABG, HTN, diastolic CHF, HLD, Chronic Pancreatitis, Chronic Back pain, SBO, Incarcerated Hernia s/p repair x2 (September 2017), H.Pylori, BPH, COPD, Bronchial Asthma, Tracheostomy in place (unplugs when sleeping for GRACIE),and opiod dependence, anxiety, who presents with worsening shortness of breath for 2-3 weeks, 1 week of productive cough of yellow phlegm and 2-3 days of chest pain and bilateral leg swelling. He reports his chest pain is L sided pressure like 5-6/10 intermittent radiating to the side and back. He admits to lightheadedness but denies nausea or diaphoresis. He staties that he has taken prednisone 60mg everday for 3 days and doubled his lasix to 80mg a day for 4 days. He reports his symptoms feel like a CHF exacerbation. He took albuterol and breathing treatment prior to arrival. He has no other complaints at bedside. As discussed with his office services manager, Dr. Bola Elaine, today, he has had multiple admissions for chest pain since the last coronary stent; these have been negative for [place]. (07/2016 dobutamine stress MIBI at [facility] : small, mild periinfarct inferior wall ischemia; pt may have had a more recent stress MIBI or angiogram as an outpatient). - Current Medication List Current Medications: Active Medications Al Hydroxide/Mg Hydroxide (Mylanta Suspension -) 30 ml PO Q6H PRN PRN Reason: DYSPEPSIA Amitriptyline HCl (Elavil -) 75 mg PO HS [facility] Last Admin: 03/10/19 21:23 Dose: 75 mg Amlodipine Besylate (Norvasc -) 10 mg PO DAILY [facility] Last Admin: 03/10/19 11:10 Dose: Not Given Arformoterol Tartrate (Brovana (Restricted To Pulmonology/Resp) -) 1 amp NEB RBID [facility] Last Admin: 03/10/19 20:50 Dose: 1 amp Aspirin (Ecotrin -) 81 mg PO DAILY [facility] Last Admin: 03/10/19 09:36 Dose: 81 mg Budesonide/Formoterol Fumarate (Symbicort 160/4.5mcg -) 1 puff IH BID [facility] Last Admin: 03/10/19 21:30 Dose: 1 puff Clopidogrel Bisulfate (Plavix -) 75 mg PO DAILY [facility] Last Admin: 03/10/19 09:37 Dose: 75 mg Ezetimibe (Zetia -) 10 mg PO HS [facility] Last Admin: 03/10/19 21:24 Dose: 10 mg Finasteride (Proscar -) 5 mg PO DAILY [facility] Last Admin: 03/10/19 09:35 Dose: 5 mg Gabapentin (Neurontin -) 800 mg PO TID [facility] Last Admin: 03/10/19 21:23 Dose: 800 mg Heparin Sodium (Porcine) (Heparin -) 5,000 unit SQ TID [facility] Last Admin: 03/10/19 21:23 Dose: 5,000 unit Hydralazine HCl (Apresoline -) 25 mg PO BID [facility] Last Admin: 03/10/19 21:23 Dose: 25 mg Hydromorphone HCl (Dilaudid -) 4 mg PO Q6H PRN PRN Reason: PAIN LEVEL 7 - 10 Last Admin: 03/10/19 18:45 Dose: 4 mg Insulin Aspart (Novolog Vial Sliding Scale -) 1 vial SQ [facility]; Protocol Last Admin: 03/10/19 21:29 Dose: Not Given Isosorbide Mononitrate (Imdur -) 30 mg PO DAILY [facility] Last Admin: 03/10/19 11:14 Dose: 30 mg Methylprednisolone Sodium Succinate (Solu-Medrol -) 40 mg IVPUSH Q12H [facility] Last Admin: 03/10/19 21:23 Dose: 40 mg Montelukast Sodium (Singulair -) 10 mg PO HS [facility] Last Admin: 03/10/19 21:23 Dose: 10 mg Nystatin (Nystatin Oral Suspension -) 500,000 units PO Q6HPO [facility] Last Admin: 03/10/19 18:41 Dose: 500,000 units Oxycodone HCl (Roxicodone -) 10 mg PO BID [facility] Last Admin: 03/10/19 21:23 Dose: 10 mg Pancrelipase (Creon Dr 36,000 Units Capsule) 1 cap PO TIDCM [facility] Last Admin: 03/10/19 17:41 Dose: 1 cap Pantoprazole Sodium (Protonix -) 20 mg PO DAILY [facility] Last Admin: 03/10/19 09:37 Dose: 20 mg Polyethylene Glycol (Miralax (For Daily Use) -) 17 gm PO BID [facility] Last Admin: 03/10/19 21:24 Dose: Not Given Rosuvastatin Calcium (Crestor -) 20 mg PO HS [facility] Last Admin: 03/10/19 21:23 Dose: 20 mg Senna/Docusate Sodium (Pericolace -) 1 tablet PO DAILY [facility] Last Admin: 03/10/19 09:37 Dose: 1 tablet Tamsulosin HCl (Flomax -) 0.4 mg PO DAILY@829 [facility] Last Admin: 03/10/19 09:36 Dose: 0.4 mg Tiotropium [place] (Spiriva Respimat) 2 puff IH DAILY [facility] Last Admin: 03/10/19 09:56 Dose: 2 puff - Objective Vital Signs: Vital Signs Temperature 98.6 F 03/10/19 16:15 Pulse Rate 102 H 03/10/19 21:35 Respiratory Rate 18 03/10/19 21:35 Blood Pressure 121/99 03/10/19 21:35 O2 Sat by Pulse Oximetry (%) 100 03/10/19 21:00 Constitutional: Yes: Calm Eyes: Yes: WNL HENT: Yes: WNL Neck: Yes: WNL Cardiovascular: Yes: S1, S2, S4 Respiratory: Yes: Regular Gastrointestinal: Yes: Soft, Abdomen, Obese ...Rectal Exam: Yes: Deferred Genitourinary: No: Anuria Breast(s): Yes: WNL Musculoskeletal: Yes: Back Pain, Joint Stiffness, Muscle Weakness Extremities: Yes: Cool Edema: Yes Edema: LLE: Trace, RLE: Trace Peripheral Pulses WNL: Yes Integumentary: Yes: WNL Neurological: Yes: Alert, Oriented Psychiatric: Yes: Alert, Oriented Labs: CBC, BMP 03/10/19 07:27 03/10/19 07:27 Problem List - Problems (1) BMI 39.0-39.9,adult Assessment/Plan: The importance of weight loss has been discussed multiple times this admission. Code(s): Z68.39 - BODY MASS INDEX (BMI) 39.0-39.9, ADULT (2) Leg edema Code(s): R60.0 - LOCALIZED EDEMA (3) Diastolic CHF Assessment/Plan: On amlodipine. F/u BUN/Cr, electrolytes, daily weight, Is and Os. Code(s): I50.30 - UNSPECIFIED DIASTOLIC (CONGESTIVE) HEART FAILURE (4) Anxiety Code(s): F41.9 - ANXIETY DISORDER, UNSPECIFIED (5) Opiate dependence Assessment/Plan: Will require long-term help, ideally, for pain management, psychological counseling, and gradual weaning from opiates. Code(s): F11.20 - OPIOID DEPENDENCE, UNCOMPLICATED (6) Renal insufficiency Code(s): N28.9 - DISORDER OF KIDNEY AND URETER, UNSPECIFIED (7) HTN (hypertension) Assessment/Plan: On amllodipine. If BP remains difficult to control, would add 2nd agent. Code(s): I10 - ESSENTIAL (PRIMARY) HYPERTENSION (8) Hyperlipidemia Assessment/Plan: Diet control; weight loss; exercise. statin; keep LDL < 70 mg/dl. (Would repeat lipid profile once pt has been on both rosuvastatin and Zetia; ? compliance to medications). The importance of weight loss, proper food choices, and exercise in aiding lipid control was discussed. Pt would benefit from nutrition consult. Code(s): E78.5 - HYPERLIPIDEMIA, UNSPECIFIED (9) Hx of heart artery stent Code(s): Z95.5 - PRESENCE OF CORONARY ANGIOPLASTY IMPLANT AND GRAFT (10) COPD exacerbation Code(s): J44.1 - CHRONIC OBSTRUCTIVE PULMONARY DISEASE W (ACUTE) EXACERBATION (11) Atypical chest pain Code(s): R07.89 - OTHER CHEST PAIN
--- NOTE | 2019-03-11 03:10 | PN ---
Progress Note, Physician Chief Complaint: Pt A&Ox3; sitting up; feels better; no chest pain or dyspnea. History of Present Illness: 63 year old black man with a significant past medical history of CAD s/p [place], stents x6 (most recently 12/2015), CABG, HTN, diastolic CHF, HLD, Chronic Pancreatitis, Chronic Back pain, SBO, Incarcerated Hernia s/p repair x2 (September 2017), H.Pylori, BPH, COPD, Bronchial Asthma, Tracheostomy in place (unplugs when sleeping for GRACIE),and opiod dependence, anxiety, who presents with worsening shortness of breath for 2-3 weeks, 1 week of productive cough of yellow phlegm and 2-3 days of chest pain and bilateral leg swelling. He reports his chest pain is L sided pressure like 5-6/10 intermittent radiating to the side and back. He admits to lightheadedness but denies nausea or diaphoresis. He staties that he has taken prednisone 60mg everday for 3 days and doubled his lasix to 80mg a day for 4 days. He reports his symptoms feel like a CHF exacerbation. He took albuterol and breathing treatment prior to arrival. He has no other complaints at bedside. As discussed with his cytology manager, Dr. Bola Elaine, today, he has had multiple admissions for chest pain since the last coronary stent; these have been negative for [place]. (07/2016 dobutamine stress MIBI at [facility] : small, mild periinfarct inferior wall ischemia; pt may have had a more recent stress MIBI or angiogram as an outpatient). - Current Medication List Current Medications: Active Medications Al Hydroxide/Mg Hydroxide (Mylanta Suspension -) 30 ml PO Q6H PRN PRN Reason: DYSPEPSIA Amitriptyline HCl (Elavil -) 75 mg PO HS [facility] Last Admin: 03/10/19 21:23 Dose: 75 mg Amlodipine Besylate (Norvasc -) 10 mg PO DAILY [facility] Last Admin: 03/10/19 11:10 Dose: Not Given Arformoterol Tartrate (Brovana (Restricted To Pulmonology/Resp) -) 1 amp NEB RBID [facility] Last Admin: 03/10/19 20:50 Dose: 1 amp Aspirin (Ecotrin -) 81 mg PO DAILY [facility] Last Admin: 03/10/19 09:36 Dose: 81 mg Budesonide/Formoterol Fumarate (Symbicort 160/4.5mcg -) 1 puff IH BID [facility] Last Admin: 03/10/19 21:30 Dose: 1 puff Clopidogrel Bisulfate (Plavix -) 75 mg PO DAILY [facility] Last Admin: 03/10/19 09:37 Dose: 75 mg Ezetimibe (Zetia -) 10 mg PO HS [facility] Last Admin: 03/10/19 21:24 Dose: 10 mg Finasteride (Proscar -) 5 mg PO DAILY [facility] Last Admin: 03/10/19 09:35 Dose: 5 mg Gabapentin (Neurontin -) 800 mg PO TID [facility] Last Admin: 03/10/19 21:23 Dose: 800 mg Heparin Sodium (Porcine) (Heparin -) 5,000 unit SQ TID [facility] Last Admin: 03/10/19 21:23 Dose: 5,000 unit Hydralazine HCl (Apresoline -) 25 mg PO BID [facility] Last Admin: 03/10/19 21:23 Dose: 25 mg Hydromorphone HCl (Dilaudid -) 4 mg PO Q6H PRN PRN Reason: PAIN LEVEL 7 - 10 Last Admin: 03/10/19 18:45 Dose: 4 mg Insulin Aspart (Novolog Vial Sliding Scale -) 1 vial SQ [facility]; Protocol Last Admin: 03/10/19 21:29 Dose: Not Given Isosorbide Mononitrate (Imdur -) 30 mg PO DAILY [facility] Last Admin: 03/10/19 11:14 Dose: 30 mg Methylprednisolone Sodium Succinate (Solu-Medrol -) 40 mg IVPUSH Q12H [facility] Last Admin: 03/10/19 21:23 Dose: 40 mg Montelukast Sodium (Singulair -) 10 mg PO HS [facility] Last Admin: 03/10/19 21:23 Dose: 10 mg Nystatin (Nystatin Oral Suspension -) 500,000 units PO Q6HPO [facility] Last Admin: 03/10/19 18:41 Dose: 500,000 units Oxycodone HCl (Roxicodone -) 10 mg PO BID [facility] Last Admin: 03/10/19 21:23 Dose: 10 mg Pancrelipase (Creon Dr 36,000 Units Capsule) 1 cap PO TIDCM [facility] Last Admin: 03/10/19 17:41 Dose: 1 cap Pantoprazole Sodium (Protonix -) 20 mg PO DAILY [facility] Last Admin: 03/10/19 09:37 Dose: 20 mg Polyethylene Glycol (Miralax (For Daily Use) -) 17 gm PO BID [facility] Last Admin: 03/10/19 21:24 Dose: Not Given Rosuvastatin Calcium (Crestor -) 20 mg PO HS [facility] Last Admin: 03/10/19 21:23 Dose: 20 mg Senna/Docusate Sodium (Pericolace -) 1 tablet PO DAILY [facility] Last Admin: 03/10/19 09:37 Dose: 1 tablet Tamsulosin HCl (Flomax -) 0.4 mg PO DAILY@30 [facility] Last Admin: 03/10/19 09:36 Dose: 0.4 mg Tiotropium [place] (Spiriva Respimat) 2 puff IH DAILY [facility] Last Admin: 03/10/19 09:56 Dose: 2 puff - Objective Vital Signs: Vital Signs Temperature 98.6 F 03/10/19 16:15 Pulse Rate 102 H 03/10/19 21:35 Respiratory Rate 18 03/10/19 21:35 Blood Pressure 121/99 03/10/19 21:35 O2 Sat by Pulse Oximetry (%) 100 03/10/19 21:00 Constitutional: Yes: Calm, Obese Eyes: Yes: WNL HENT: Yes: WNL, Other (trach site dry) Neck: Yes: WNL Cardiovascular: Yes: S1, S2, S4 Respiratory: Yes: WNL Gastrointestinal: Yes: Soft, Abdomen, Obese ...Rectal Exam: Yes: Deferred Genitourinary: No: Anuria Breast(s): Yes: WNL Musculoskeletal: Yes: Back Pain, Joint Stiffness, Muscle Weakness Extremities: Yes: Cool Edema: Yes Edema: LLE: Trace, RLE: Trace Peripheral Pulses WNL: Yes Integumentary: Yes: WNL Neurological: Yes: WNL Psychiatric: Yes: WNL Labs: CBC, BMP 03/10/19 07:27 03/10/19 07:27 Abnormal Lab Results 03/10/19 03/10/19 07:27 07:27 WBC 13.9 H Anion Gap 7 L BUN 51.0 H Creatinine 1.7 H Random Glucose 253 H AST 58 H ALT 120 H Total Protein 6.0 L Albumin 3.1 L Problem List - Problems (1) BMI 39.0-39.9,adult Assessment/Plan: The importance of weight loss has been discussed multiple times this admission. Now, with his at beside and encouraging him, he says he will continue to see the vp corporate partnerships here, and will set a goal for weight loss. Code(s): Z68.39 - BODY MASS INDEX (BMI) 39.0-39.9, ADULT (2) Leg edema Code(s): R60.0 - LOCALIZED EDEMA (3) Diastolic CHF Assessment/Plan: On amlodipine; added hydralazine + Imdur for HTN. F/u BUN/Cr, electrolytes, daily weight, Is and Os. Code(s): I50.30 - UNSPECIFIED DIASTOLIC (CONGESTIVE) HEART FAILURE (4) Anxiety Code(s): F41.9 - ANXIETY DISORDER, UNSPECIFIED (5) Opiate dependence Assessment/Plan: Will require long-term help, ideally, for pain management, psychological counseling, and gradual weaning from opiates. This was discussed today with his present. Code(s): F11.20 - OPIOID DEPENDENCE, UNCOMPLICATED (6) Renal insufficiency Assessment/Plan: avoid overzealous diuresis. F/u BUN/Cr (Cr 1.1 on 07/2018; on this admission, it was initially 1.3; now 2.1- ->1.7)), Is and Os, daily weight electrolytes (off chlorthalidone, furosemide, ACEI) Not in acute CHF. f/u with sales mgr. Code(s): N28.9 - DISORDER OF KIDNEY AND URETER, UNSPECIFIED (7) HTN (hypertension) Assessment/Plan: On amllodipine. Hydralazine + Imdur added due to increasing BP, with improved readings during the day. F/u, and increase doses as needed. Code(s): I10 - ESSENTIAL (PRIMARY) HYPERTENSION (8) Hyperlipidemia Assessment/Plan: Diet control; weight loss; exercise. statin; keep LDL < 70 mg/dl. (as noted by GI pt may benefit from stopping Zetia in regards to elevated LFTs; follow up lipids after pt compliant to Crestor alone for several weeks). The importance of weight loss, proper food choices, and exercise in aiding weight loss and lipid control was discussed. Pt would benefit from nutritioist f /u; he agrees to do so, and his , present today, is in agreement. Code(s): E78.5 - HYPERLIPIDEMIA, UNSPECIFIED (9) Hx of heart artery stent Assessment/Plan: Most recently 2016. On ASA (change to non-enteric coated) and clopidogrel. Code(s): Z95.5 - PRESENCE OF CORONARY ANGIOPLASTY IMPLANT AND GRAFT (10) COPD exacerbation Assessment/Plan: Taper off IV steroids per roving technician Code(s): J44.1 - CHRONIC OBSTRUCTIVE PULMONARY DISEASE W (ACUTE) EXACERBATION (11) Atypical chest pain Assessment/Plan: Sharp chest pains exacerbated by deep inspiration. TNI 0.02 x 3. EKG: normal sinus rhythm; normal study. Discussed with pt's private cytology manager (Dr. Elaine) on admission. Records regarding most recent coronary artery workup (has apparently not required coronary stent since 2016); stress MIBI 2017 showed mild ischemia. On ASA and clopidogrel. Statin (though on Zetia, spotty compliance to statin may explain elevated LDL on admission).. Code(s): R07.89 - OTHER CHEST PAIN
--- NOTE | 2019-03-11 03:22 | PN ---
Progress Note, Physician - Current Medication List Current Medications: Active Medications Al Hydroxide/Mg Hydroxide (Mylanta Suspension -) 30 ml PO Q6H PRN PRN Reason: DYSPEPSIA Amitriptyline HCl (Elavil -) 75 mg PO HS [facility] Last Admin: 03/10/19 21:23 Dose: 75 mg Amlodipine Besylate (Norvasc -) 10 mg PO DAILY [facility] Last Admin: 03/10/19 11:10 Dose: Not Given Arformoterol Tartrate (Brovana (Restricted To Pulmonology/Resp) -) 1 amp NEB RBID [facility] Last Admin: 03/10/19 20:50 Dose: 1 amp Aspirin (Ecotrin -) 81 mg PO DAILY [facility] Last Admin: 03/10/19 09:36 Dose: 81 mg Budesonide/Formoterol Fumarate (Symbicort 160/4.5mcg -) 1 puff IH BID [facility] Last Admin: 03/10/19 21:30 Dose: 1 puff Clopidogrel Bisulfate (Plavix -) 75 mg PO DAILY [facility] Last Admin: 03/10/19 09:37 Dose: 75 mg Ezetimibe (Zetia -) 10 mg PO HS [facility] Last Admin: 03/10/19 21:24 Dose: 10 mg Finasteride (Proscar -) 5 mg PO DAILY [facility] Last Admin: 03/10/19 09:35 Dose: 5 mg Gabapentin (Neurontin -) 800 mg PO TID [facility] Last Admin: 03/10/19 21:23 Dose: 800 mg Heparin Sodium (Porcine) (Heparin -) 5,000 unit SQ TID [facility] Last Admin: 03/10/19 21:23 Dose: 5,000 unit Hydralazine HCl (Apresoline -) 25 mg PO BID [facility] Last Admin: 03/10/19 21:23 Dose: 25 mg Hydromorphone HCl (Dilaudid -) 4 mg PO Q6H PRN PRN Reason: PAIN LEVEL 7 - 10 Last Admin: 03/10/19 18:45 Dose: 4 mg Insulin Aspart (Novolog Vial Sliding Scale -) 1 vial SQ ACHS [facility]; Protocol Last Admin: 03/10/19 21:29 Dose: Not Given Isosorbide Mononitrate (Imdur -) 30 mg PO DAILY [facility] Last Admin: 03/10/19 11:14 Dose: 30 mg Methylprednisolone Sodium Succinate (Solu-Medrol -) 40 mg IVPUSH Q12H [facility] Last Admin: 03/10/19 21:23 Dose: 40 mg Montelukast Sodium (Singulair -) 10 mg PO HS [facility] Last Admin: 03/10/19 21:23 Dose: 10 mg Nystatin (Nystatin Oral Suspension -) 500,000 units PO Q6HPO [facility] Last Admin: 03/10/19 18:41 Dose: 500,000 units Oxycodone HCl (Roxicodone -) 10 mg PO BID [facility] Last Admin: 03/10/19 21:23 Dose: 10 mg Pancrelipase (Creon Dr 36,000 Units Capsule) 1 cap PO TIDCM [facility] Last Admin: 03/10/19 17:41 Dose: 1 cap Pantoprazole Sodium (Protonix -) 20 mg PO DAILY [facility] Last Admin: 03/10/19 09:37 Dose: 20 mg Polyethylene Glycol (Miralax (For Daily Use) -) 17 gm PO BID [facility] Last Admin: 03/10/19 21:24 Dose: Not Given Rosuvastatin Calcium (Crestor -) 20 mg PO [facility] Last Admin: 03/10/19 21:23 Dose: 20 mg Senna/Docusate Sodium (Pericolace -) 1 tablet PO DAILY [facility] Last Admin: 03/10/19 09:37 Dose: 1 tablet Tamsulosin HCl (Flomax -) 0.4 mg PO DAILY@0830 [facility] Last Admin: 03/10/19 09:36 Dose: 0.4 mg Tiotropium [place] (Spiriva Respimat) 2 puff IH DAILY [facility] Last Admin: 03/10/19 09:56 Dose: 2 puff - Objective Vital Signs: Vital Signs Temperature 98.6 F 03/10/19 16:15 Pulse Rate 102 H 03/10/19 21:35 Respiratory Rate 18 03/10/19 21:35 Blood Pressure 121/99 03/10/19 21:35 O2 Sat by Pulse Oximetry (%) 100 03/10/19 21:00 Labs: CBC, BMP 03/10/19 07:27 03/10/19 07:27 Problem List - Problems (1) BMI 39.0-39.9,adult Code(s): Z68.39 - BODY MASS INDEX (BMI) 39.0-39.9, ADULT (2) Leg edema Code(s): R60.0 - LOCALIZED EDEMA (3) Diastolic CHF Code(s): I50.30 - UNSPECIFIED DIASTOLIC (CONGESTIVE) HEART FAILURE (4) Anxiety Code(s): F41.9 - ANXIETY DISORDER, UNSPECIFIED (5) Opiate dependence Code(s): F11.20 - OPIOID DEPENDENCE, UNCOMPLICATED (6) Renal insufficiency Code(s): N28.9 - DISORDER OF KIDNEY AND URETER, UNSPECIFIED (7) HTN (hypertension) Code(s): I10 - ESSENTIAL (PRIMARY) HYPERTENSION (8) Hyperlipidemia Code(s): E78.5 - HYPERLIPIDEMIA, UNSPECIFIED (9) Hx of heart artery stent Code(s): Z95.5 - PRESENCE OF CORONARY ANGIOPLASTY IMPLANT AND GRAFT (10) COPD exacerbation Code(s): J44.1 - CHRONIC OBSTRUCTIVE PULMONARY DISEASE W (ACUTE) EXACERBATION (11) Atypical chest pain Code(s): R07.89 - OTHER CHEST PAIN
[2019-03-11] MEDS: HEPARIN NA (PORCINE) 5,000 UNITS/ML 1ML VIAL SQ SCH ×3 (06:42→21:32)
[2019-03-11] MEDS: GABAPENTIN 400 MG CAPSULE (FP) PO SCH ×3 (06:42→21:32)
[2019-03-11] MEDS: HYDROmorphone HCL 2 MG TABLET PO PRN (06:44)
[2019-03-11] MEDS: INSULIN SLIDING SCALE (NOVOLOG) 1 VIAL SQ SCH ×4 (06:45→21:31)
[2019-03-11] MEDS: ARFORMOTEROL TARTRATE 15 MCG/2 ML VIAL NEB SCH ×2 (07:45→20:29)
[2019-03-11] MEDS ORDERED: PT OWN MED DRAWER 7, Y5N ONE ×4 (08:09→16:52)
[2019-03-11] MEDS: TAMSULOSIN HCL 0.4 MG CAP PO SCH (08:34)
--- NOTE | 2019-03-11 08:45 | PN ---
Progress Note, Physician History of Present Illness: 63 year old black man with a significant past medical history of CAD s/p NM, stents x6 (most recently 12/2015), CABG, HTN, diastolic CHF, HLD, Chronic Pancreatitis, Chronic Back pain, SBO, Incarcerated Hernia s/p repair x2 (September 2017), H.Pylori, BPH, COPD, Bronchial Asthma, Tracheostomy in place (unplugs when sleeping for GRACIE),and anxiety, who presents with worsening shortness of breath for 2-3 weeks, 1 week of productive cough of yellow phlegm and 2-3 days of chest pain and bilateral leg swelling. He reports his chest pain is L sided pressure like 5-6/10 intermittent radiating to the side and back. He admits to lightheadedness but denies nausea or diaphoresis. He staties that he has taken prednisone 60mg everday for 3 days and doubled his lasix to 80mg a day for 4 days. He reports his symptoms feel like a CHF exacerbation. He took albuterol and breathing treatment prior to arrival. He has no other complaints at bedside. As discussed with his director of email marketing, Dr. Bola Elaine, today, he has had multiple admissions for chest pain since the last coronary stent; these have been negative for NM. (07/2016 dobutamine stress MIBI at [facility] : small, mild periinfarct inferior wall ischemia; pt may have had a more recent stress MIBI or angiogram as an outpatient). - Current Medication List Current Medications: Active Medications Al Hydroxide/Mg Hydroxide (Mylanta Suspension -) 30 ml PO Q6H PRN PRN Reason: DYSPEPSIA Amitriptyline HCl (Elavil -) 75 mg PO HS [facility] Last Admin: 03/10/19 21:23 Dose: 75 mg Amlodipine Besylate (Norvasc -) 10 mg PO DAILY [facility] Last Admin: 03/10/19 11:10 Dose: Not Given Arformoterol Tartrate (Brovana (Restricted To Pulmonology/Resp) -) 1 amp NEB RBID [facility] Last Admin: 03/10/19 20:50 Dose: 1 amp Aspirin (Ecotrin -) 81 mg PO DAILY [facility] Last Admin: 03/10/19 09:36 Dose: 81 mg Budesonide/Formoterol Fumarate (Symbicort 160/4.5mcg -) 1 puff IH BID [facility] Last Admin: 03/10/19 21:30 Dose: 1 puff Clopidogrel Bisulfate (Plavix -) 75 mg PO DAILY [facility] Last Admin: 03/10/19 09:37 Dose: 75 mg Ezetimibe (Zetia -) 10 mg PO HS [facility] Last Admin: 03/10/19 21:24 Dose: 10 mg Finasteride (Proscar -) 5 mg PO DAILY [facility] Last Admin: 03/10/19 09:35 Dose: 5 mg Gabapentin (Neurontin -) 800 mg PO TID [facility] Last Admin: 03/11/19 06:42 Dose: 800 mg Heparin Sodium (Porcine) (Heparin -) 5,000 unit SQ TID [facility] Last Admin: 03/11/19 06:42 Dose: 5,000 unit Hydralazine HCl (Apresoline -) 25 mg PO BID [facility] Last Admin: 03/10/19 21:23 Dose: 25 mg Hydromorphone HCl (Dilaudid -) 4 mg PO Q6H PRN PRN Reason: PAIN LEVEL 7 - 10 Last Admin: 03/11/19 06:44 Dose: 4 mg Insulin Aspart (Novolog Vial Sliding Scale -) 1 vial SQ [facility]; Protocol Last Admin: 03/11/19 06:45 Dose: 4 units Isosorbide Mononitrate (Imdur -) 30 mg PO DAILY [facility] Last Admin: 03/10/19 11:14 Dose: 30 mg Methylprednisolone Sodium Succinate (Solu-Medrol -) 40 mg IVPUSH Q12H [facility] Last Admin: 03/10/19 21:23 Dose: 40 mg Montelukast Sodium (Singulair -) 10 mg PO HS [facility] Last Admin: 03/10/19 21:23 Dose: 10 mg Nystatin (Nystatin Oral Suspension -) 500,000 units PO Q6HPO [facility] Last Admin: 03/11/19 06:41 Dose: 500,000 units Oxycodone HCl (Roxicodone -) 10 mg PO BID [facility] Last Admin: 03/10/19 21:23 Dose: 10 mg Pancrelipase (Creon Dr 36,000 Units Capsule) 1 cap PO TIDCM [facility] Last Admin: 03/10/19 17:41 Dose: 1 cap Pantoprazole Sodium (Protonix -) 20 mg PO DAILY [facility] Last Admin: 03/10/19 09:37 Dose: 20 mg Polyethylene Glycol (Miralax (For Daily Use) -) 17 gm PO BID [facility] Last Admin: 03/10/19 21:24 Dose: Not Given Rosuvastatin Calcium (Crestor -) 20 mg PO HS [facility] Last Admin: 03/10/19 21:23 Dose: 20 mg Senna/Docusate Sodium (Pericolace -) 1 tablet PO DAILY [facility] Last Admin: 03/10/19 09:37 Dose: 1 tablet Tamsulosin HCl (Flomax -) 0.4 mg PO DAILY@0830 [facility] Last Admin: 03/11/19 08:34 Dose: 0.4 mg Tiotropium [place] (Spiriva Respimat) 2 puff IH DAILY [facility] Last Admin: 03/10/19 09:56 Dose: 2 puff - Objective Vital Signs: Vital Signs Temperature 98.6 F 03/10/19 16:15 Pulse Rate 70 03/11/19 06:30 Respiratory Rate 18 03/11/19 06:30 Blood Pressure 155/92 03/11/19 06:30 O2 Sat by Pulse Oximetry (%) 100 03/10/19 21:00 Eyes: Yes: WNL, Conjunctiva Clear, EOM Intact HENT: Yes: WNL, Atraumatic, Normocephalic Neck: Yes: WNL, Supple, Trachea Midline Cardiovascular: Yes: WNL, Regular Rate and Rhythm Respiratory: Yes: WNL, Regular, CTA Bilaterally Gastrointestinal: Yes: WNL, Normal Bowel Sounds Genitourinary: Yes: WNL Musculoskeletal: Yes: WNL Extremities: Yes: WNL Edema: Yes Integumentary: Yes: WNL Neurological: Yes: WNL, Alert, Oriented ...Motor Strength: WNL Psychiatric: Yes: WNL Labs: CBC, BMP 03/10/19 07:27 03/10/19 07:27 Assessment/Plan - Problems (1) BMI 39.0-39.9,adult Assessment/Plan: The importance of weight loss has been discussed multiple times this admission. Now, with his at beside and encouraging him, he says he will continue to see the edge brusher here, and will set a goal for weight loss. Code(s): Z68.39 - BODY MASS INDEX (BMI) 39.0-39.9, ADULT (2) Leg edema Code(s): R60.0 - LOCALIZED EDEMA (3) Diastolic CHF Assessment/Plan: On amlodipine; added hydralazine + Imdur for HTN. F/u BUN/Cr, electrolytes, daily weight, Is and Os. Code(s): I50.30 - UNSPECIFIED DIASTOLIC (CONGESTIVE) HEART FAILURE (4) Anxiety Code(s): F41.9 - ANXIETY DISORDER, UNSPECIFIED (5) Opiate dependence Assessment/Plan: Will require long-term help, ideally, for pain management, psychological counseling, and gradual weaning from opiates. This was discussed today with his present. Code(s): F11.20 - OPIOID DEPENDENCE, UNCOMPLICATED (6) Renal insufficiency Assessment/Plan: avoid overzealous diuresis. F/u BUN/Cr (Cr 1.1 on 07/2018; on this admission, it was initially 1.3; now 2.1- ->1.7)), Is and Os, daily weight electrolytes (off chlorthalidone, furosemide, ACEI) Not in acute CHF. f/u with park manager. Code(s): N28.9 - DISORDER OF KIDNEY AND URETER, UNSPECIFIED (7) HTN (hypertension) Assessment/Plan: On amllodipine. Hydralazine + Imdur added due to increasing BP, with improved readings during the day. F/u, and increase doses as needed. Code(s): I10 - ESSENTIAL (PRIMARY) HYPERTENSION (8) Hyperlipidemia Assessment/Plan: Diet control; weight loss; exercise. statin; keep LDL < 70 mg/dl. (as noted by GI pt may benefit from stopping Zetia in regards to elevated LFTs; follow up lipids after pt compliant to Crestor alone for several weeks). The importance of weight loss, proper food choices, and exercise in aiding weight loss and lipid control was discussed. Pt would benefit from nutritioist f /u; he agrees to do so, and his , present today, is in agreement. Code(s): E78.5 - HYPERLIPIDEMIA, UNSPECIFIED (9) Hx of heart artery stent Assessment/Plan: Most recently 2015. On ASA (change to non-enteric coated) and clopidogrel. Code(s): Z95.5 - PRESENCE OF CORONARY ANGIOPLASTY IMPLANT AND GRAFT (10) COPD exacerbation Assessment/Plan: Taper off IV steroids per county home demonstrator Code(s): J44.1 - CHRONIC OBSTRUCTIVE PULMONARY DISEASE W (ACUTE) EXACERBATION (11) Atypical chest pain Assessment/Plan: Sharp chest pains exacerbated by deep inspiration. TNI 0.02 x 3. EKG: normal sinus rhythm; normal study. Discussed with pt's private director of email marketing (Dr. Elaine) on admission. Records regarding most recent coronary artery workup (has apparently not required coronary stent since 2016); stress MIBI 2017 showed mild ischemia. On ASA and clopidogrel. Statin (though on Zetia, spotty compliance to statin may explain elevated LDL on admission)..
[2019-03-11] MEDS: LIPASE/PROTEASE/AMYLASE 36,000 UNIT CAPSULE PO SCH ×3 (08:59→17:07)
[2019-03-11] MEDS: methylPREDNISolone NA SUCC 40 MG/1 ML VIAL IVPUSH SCH (09:59)
[2019-03-11] MEDS: amLODIPine BESYLATE 10 MG TABLET (FP) PO SCH (10:00)
[2019-03-11] MEDS: CLOPIDOGREL BISULFATE 75 MG TABLET (FP) PO SCH (10:00)
[2019-03-11] MEDS: FINASTERIDE 5 MG TABLET (FP) PO SCH (10:00)
[2019-03-11] MEDS: PANTOPRAZOLE 20 MG TABLET (FP) PO SCH (10:00)
[2019-03-11] MEDS: hydrALAZINE HCL 25 MG TABLET (FP) PO SCH ×2 (10:00→21:31)
[2019-03-11] MEDS: oxyCODONE HCL 5 MG TABLET PO SCH ×2 (10:00→21:32)
[2019-03-11] MEDS: ISOSORBIDE MONONITRATE 30 MG TAB.SR.24H (FP) PO SCH (10:00)
[2019-03-11] MEDS: SENNOSIDES/DOCUSATE COMBO (SENNA PLUS) TABLET (UD) PO SCH (10:01)
[2019-03-11] MEDS: ASPIRIN COATED 81 MG TABLET.EC PO SCH (10:02)
[2019-03-11] MEDS: TIOTROPIUM BROMIDE 2.5 MCG (SPIRIVA) RESPIMAT INHALER IH SCH (10:02)
[2019-03-11] MEDS: BUDESONIDE/FORMETEROL FUMARATE 160/4.5 mcg INHALER IH SCH ×2 (10:02→21:32)
[2019-03-11] MEDS: POLYETHYLENE GLYCOL 3350 119 GM BTL PO SCH ×2 (10:39→21:33)
--- NOTE | 2019-03-11 11:06 | PN ---
Progress Note, Physician - Current Medication List Current Medications: Active Medications Al Hydroxide/Mg Hydroxide (Mylanta Suspension -) 30 ml PO Q6H PRN PRN Reason: DYSPEPSIA Amitriptyline HCl (Elavil -) 75 mg PO [facility] Last Admin: 03/10/19 21:23 Dose: 75 mg Arformoterol Tartrate (Brovana (Restricted To Pulmonology/Resp) -) 1 amp NEB RBID [facility] Last Admin: 03/10/19 20:50 Dose: 1 amp Aspirin (Ecotrin -) 81 mg PO DAILY [facility] Last Admin: 03/11/19 10:02 Dose: 81 mg Budesonide/Formoterol Fumarate (Symbicort 160/4.5mcg -) 1 puff IH BID [facility] Last Admin: 03/11/19 10:02 Dose: 1 puff Clopidogrel Bisulfate (Plavix -) 75 mg PO DAILY [facility] Last Admin: 03/11/19 10:00 Dose: 75 mg Ezetimibe (Zetia -) 10 mg PO [facility] Last Admin: 03/10/19 21:24 Dose: 10 mg Finasteride (Proscar -) 5 mg PO DAILY [facility] Last Admin: 03/11/19 10:00 Dose: 5 mg Gabapentin (Neurontin -) 800 mg PO TID [facility] Last Admin: 03/11/19 06:42 Dose: 800 mg Heparin Sodium (Porcine) (Heparin -) 5,000 unit SQ TID [facility] Last Admin: 03/11/19 06:42 Dose: 5,000 unit Insulin Aspart (Novolog Vial Sliding Scale -) 1 vial [facility]Q [facility]; Protocol Last Admin: 03/11/19 06:45 Dose: 4 units Isosorbide Mononitrate (Imdur -) 30 mg PO DAILY [facility] Last Admin: 03/11/19 10:00 Dose: 30 mg Montelukast Sodium (Singulair -) 10 mg PO [facility] Last Admin: 03/10/19 21:23 Dose: 10 mg Nystatin (Nystatin Oral Suspension -) 500,000 units PO Q6HPO [facility] Last Admin: 03/11/19 06:41 Dose: 500,000 units Oxycodone HCl (Roxicodone -) 10 mg PO BID [facility] Last Admin: 03/11/19 10:00 Dose: 10 mg Pancrelipase (Creon Dr 36,000 Units Capsule) 1 cap PO TIDCM [facility] Last Admin: 03/11/19 08:59 Dose: 1 cap Pantoprazole Sodium (Protonix -) 20 mg PO DAILY [facility] Last Admin: 03/11/19 10:00 Dose: 20 mg Polyethylene Glycol (Miralax (For Daily Use) -) 17 gm PO BID [facility] Last Admin: 03/11/19 10:39 Dose: 17 gm Rosuvastatin Calcium (Crestor -) 20 mg PO HS [facility] Last Admin: 03/10/19 21:23 Dose: 20 mg Senna/Docusate Sodium (Pericolace -) 1 tablet PO DAILY [facility] Last Admin: 03/11/19 10:01 Dose: 1 tablet Tamsulosin HCl (Flomax -) 0.4 mg PO DAILY@0830 [facility] Last Admin: 03/11/19 08:34 Dose: 0.4 mg Tiotropium [place] (Spiriva Respimat) 2 puff IH DAILY [facility] Last Admin: 03/11/19 10:02 Dose: 2 puff - Objective Vital Signs: Vital Signs Temperature 98.6 F 03/10/19 16:15 Pulse Rate 70 03/11/19 06:30 Respiratory Rate 18 03/11/19 06:30 Blood Pressure 155/92 03/11/19 06:30 O2 Sat by Pulse Oximetry (%) 100 03/10/19 21:00 Cardiovascular: Yes: S1, S2 Respiratory: Yes: Regular, CTA Bilaterally Gastrointestinal: Yes: Normal Bowel Sounds, Soft Labs: CBC, BMP 03/10/19 07:27 03/10/19 07:27 Assessment/Plan - Problems (1) BMI 39.0-39.9,adult Assessment/Plan: -Dietary consult Code(s): Z68.39 - BODY MASS INDEX (BMI) 39.0-39.9, ADULT (2) COPD exacerbation Assessment/Plan: -Pulm on board -O2 via NC -keep SpO2 >90% -Symbicort, Brovanna, Spiriva -bronchodilators -IV Medrol--po Code(s): J44.1 - CHRONIC OBSTRUCTIVE PULMONARY DISEASE W (ACUTE) EXACERBATION (3) Diastolic CHF Assessment/Plan: -Cardiology on board -1L fluid restriction -daily weights -strict I&Os Code(s): I50.30 - UNSPECIFIED DIASTOLIC (CONGESTIVE) HEART FAILURE (4) Leg edema Assessment/Plan: -keep legs elevated -IV LASIX Code(s): R60.0 - LOCALIZED EDEMA (5) Renal insufficiency Assessment/Plan: -Renal on board -BUN/Cr 49.7/1.9 -continue to monitor renal function Code(s): N28.9 - DISORDER OF KIDNEY AND URETER, UNSPECIFIED (6) HTN (hypertension) Assessment/Plan: -Norvasc, Chlorthalidone -Hydralazine BID and Imdur added to regimen -low Na diet Code(s): I10 - ESSENTIAL (PRIMARY) HYPERTENSION (7) Hyperlipidemia Assessment/Plan: -Zetia, Crestor Code(s): E78.5 - HYPERLIPIDEMIA, UNSPECIFIED (8) Diabetes mellitus Assessment/Plan: -BGM ACHS -Insulin pump -ISS -diabetic diet Code(s): E11.9 - TYPE 2 DIABETES MELLITUS WITHOUT COMPLICATIONS Qualifiers: Diabetes mellitus type: type 2 (9) Intractable low back pain Assessment/Plan: -Pain consult -Dilaudid, Nucynta, Percocet -Neurosurgery consult Code(s): M54.5 - LOW BACK PAIN (10) Abdominal pain Assessment/Plan: -Abdominal US shows fatty enlarged liver, possible gallstone -GI on board Code(s): R10.9 - UNSPECIFIED ABDOMINAL PAIN (11) Hyperkalemia Assessment/Plan: -K 4.4 -resolved -renal on board Code(s): E87.5 - HYPERKALEMIA
[2019-03-11] MEDS: HYDROmorphone HCl 2 MG/ML VIAL IM PRN ×3 (11:33→20:30)
--- NOTE | 2019-03-11 11:43 | PN ---
Progress Note (short form) - Note Progress Note: PULMONARY Breathing slowly improving. Still with cough and wheezing. No fevers or chills. Vital Signs Period Temp Pulse Resp BP Sys/Gates Pulse Ox Last 24 Hr 98.3 F-98.6 F 70-102 18-20 121-164/83-99 100 Gen: NAD in chair Heart: RRR Lung: scattered rhonchi Abd: soft, nontender Ext: + edema CBC, BMP 03/10/19 07:27 03/10/19 07:27 Active Medications Al Hydroxide/Mg Hydroxide (Mylanta Suspension -) 30 ml PO Q6H PRN PRN Reason: DYSPEPSIA Amitriptyline HCl (Elavil -) 75 mg PO HS [facility] Last Admin: 03/10/19 21:23 Dose: 75 mg Arformoterol Tartrate (Brovana (Restricted To Pulmonology/Resp) -) 1 amp NEB RBID [facility] Last Admin: 03/10/19 20:50 Dose: 1 amp Aspirin (Ecotrin -) 81 mg PO DAILY [facility] Last Admin: 03/11/19 10:02 Dose: 81 mg Budesonide/Formoterol Fumarate (Symbicort 160/4.5mcg -) 1 puff IH BID [facility] Last Admin: 03/11/19 10:02 Dose: 1 puff Clopidogrel Bisulfate (Plavix -) 75 mg PO DAILY [facility] Last Admin: 03/11/19 10:00 Dose: 75 mg Ezetimibe (Zetia -) 10 mg PO HS [facility] Last Admin: 03/10/19 21:24 Dose: 10 mg Finasteride (Proscar -) 5 mg PO DAILY [facility] Last Admin: 03/11/19 10:00 Dose: 5 mg Furosemide (Lasix Injection -) 40 mg IVPUSH DAILY [facility] Gabapentin (Neurontin -) 800 mg PO TID [facility] Last Admin: 03/11/19 06:42 Dose: 800 mg Heparin Sodium (Porcine) (Heparin -) 5,000 unit SQ TID [facility] Last Admin: 03/11/19 06:42 Dose: 5,000 unit Hydralazine HCl (Apresoline -) 50 mg PO BID [facility] Hydromorphone HCl (Dilaudid Vial -) 2 mg IM Q4H PRN PRN Reason: PAIN LEVEL 6-10 Last Admin: 03/11/19 11:33 Dose: 2 mg Insulin Aspart (Novolog Vial Sliding Scale -) 1 vial SQ ACHS [facility]; Protocol Last Admin: 03/11/19 11:23 Dose: 10 units Isosorbide Mononitrate (Imdur -) 30 mg PO DAILY [facility] Last Admin: 03/11/19 10:00 Dose: 30 mg Montelukast Sodium (Singulair -) 10 mg PO HS [facility] Last Admin: 03/10/19 21:23 Dose: 10 mg Nifedipine (Procardia Xl -) 30 mg PO DAILY [facility] Nystatin (Nystatin Oral Suspension -) 500,000 units PO Q6HPO [facility] Last Admin: 03/11/19 06:41 Dose: 500,000 units Oxycodone HCl (Roxicodone -) 10 mg PO BID [facility] Last Admin: 03/11/19 10:00 Dose: 10 mg Pancrelipase (Creon Dr 36,000 Units Capsule) 1 cap PO TIDCM [facility] Last Admin: 03/11/19 08:59 Dose: 1 cap Pantoprazole Sodium (Protonix -) 20 mg PO DAILY [facility] Last Admin: 03/11/19 10:00 Dose: 20 mg Polyethylene Glycol (Miralax (For Daily Use) -) 17 gm PO BID [facility] Last Admin: 03/11/19 10:39 Dose: 17 gm Prednisone (Deltasone -) 20 mg PO BID [facility] Rosuvastatin Calcium (Crestor -) 20 mg PO [facility] Last Admin: 03/10/19 21:23 Dose: 20 mg Senna/Docusate Sodium (Pericolace -) 1 tablet PO DAILY [facility] Last Admin: 03/11/19 10:01 Dose: 1 tablet Tamsulosin HCl (Flomax -) 0.4 mg PO DAILY@0830 [facility] Last Admin: 03/11/19 08:34 Dose: 0.4 mg Tiotropium [place] (Spiriva Respimat) 2 puff IH DAILY [facility] Last Admin: 03/11/19 10:02 Dose: 2 puff A/P Acute COPD Exacerbation improving Acute on Chronic Diastolic Heart Failure Chronic Hypoxic Respiratory Failure Obstructive Sleep Apnea s/p Tracheostomy CAD s/p CABG HTN DM Hyperlipidemia Spinal Stenosis Chronic Pain Syndrome Opiate Dependence Acute on chronic kidney disease - prednisone taper - inhaled bronchodilators standing and PRN - O2 to keep Spo2 >90% - glucose control while on systemic steroids - monitor urine output, creatinine - uncap tracheostomy when sleeping - pain control - DVT prophylaxis Problem List - Problems (1) COPD exacerbation Code(s): J44.1 - CHRONIC OBSTRUCTIVE PULMONARY DISEASE W (ACUTE) EXACERBATION
[2019-03-11] MEDS: FUROSEMIDE 40 MG/4 ML INJECTABLE VIAL IVPUSH SCH (11:46)
--- NOTE | 2019-03-11 20:24 | PN ---
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 chf Current Medications Al Hydroxide/Mg Hydroxide (Mylanta Suspension -) 30 ml PO Q6H PRN PRN Reason: DYSPEPSIA Amitriptyline HCl (Elavil -) 75 mg PO [facility] Last Admin: 03/10/19 21:23 Dose: 75 mg Arformoterol Tartrate (Brovana (Restricted To Pulmonology/Resp) -) 1 amp NEB RBID [facility] Last Admin: 03/11/19 07:45 Dose: 1 amp Aspirin (Ecotrin -) 81 mg PO DAILY [facility] Last Admin: 03/11/19 10:02 Dose: 81 mg Budesonide/Formoterol Fumarate (Symbicort 160/4.5mcg -) 1 puff IH BID [facility] Last Admin: 03/11/19 10:02 Dose: 1 puff Clopidogrel Bisulfate (Plavix -) 75 mg PO DAILY [facility] Last Admin: 03/11/19 10:00 Dose: 75 mg Ezetimibe (Zetia -) 10 mg PO [facility] Last Admin: 03/10/19 21:24 Dose: 10 mg Finasteride (Proscar -) 5 mg PO DAILY [facility] Last Admin: 03/11/19 10:00 Dose: 5 mg Furosemide (Lasix Injection -) 40 mg IVPUSH DAILY [facility] Last Admin: 03/11/19 11:46 Dose: 40 mg Gabapentin (Neurontin -) 800 mg PO TID [facility] Last Admin: 03/11/19 14:03 Dose: 800 mg Heparin Sodium (Porcine) (Heparin -) 5,000 unit SQ TID [facility] Last Admin: 03/11/19 14:03 Dose: 5,000 unit Hydralazine HCl (Apresoline -) 50 mg PO BID [facility] Hydromorphone HCl (Dilaudid Vial -) 2 mg IM Q4H PRN PRN Reason: PAIN LEVEL 6-10 Last Admin: 03/11/19 15:40 Dose: 2 mg Insulin Aspart (Novolog Vial Sliding Scale -) 1 vial SQ ACHS [facility]; Protocol Last Admin: 03/11/19 17:06 Dose: 4 units Isosorbide Mononitrate (Imdur -) 30 mg PO DAILY [facility] Last Admin: 03/11/19 10:00 Dose: 30 mg Montelukast Sodium (Singulair -) 10 mg PO [facility] Last Admin: 03/10/19 21:23 Dose: 10 mg Nifedipine (Procardia Xl -) 30 mg PO DAILY [facility] Nystatin (Nystatin Oral Suspension -) 500,000 units PO Q6HPO [facility] Last Admin: 03/11/19 17:07 Dose: 500,000 units Oxycodone HCl (Roxicodone -) 10 mg PO BID [facility] Last Admin: 03/11/19 10:00 Dose: 10 mg Pancrelipase (Creon Dr 36,000 Units Capsule) 1 cap PO TIDCM [facility] Last Admin: 03/11/19 17:07 Dose: 1 cap Pantoprazole Sodium (Protonix -) 20 mg PO DAILY [facility] Last Admin: 03/11/19 10:00 Dose: 20 mg Polyethylene Glycol (Miralax (For Daily Use) -) 17 gm PO BID [facility] Last Admin: 03/11/19 10:39 Dose: 17 gm Prednisone (Deltasone -) 20 mg PO BID [facility] Rosuvastatin Calcium (Crestor -) 20 mg PO HS [facility] Last Admin: 03/10/19 21:23 Dose: 20 mg Senna/Docusate Sodium (Pericolace -) 1 tablet PO DAILY [facility] Last Admin: 03/11/19 10:01 Dose: 1 tablet Tamsulosin HCl (Flomax -) 0.4 mg PO DAILY@0830 [facility] Last Admin: 03/11/19 08:34 Dose: 0.4 mg Tiotropium [place] (Spiriva Respimat) 2 puff IH DAILY [facility] Last Admin: 03/11/19 10:02 Dose: 2 puff Last Vital Signs Temp Pulse Resp BP Pulse Ox 97.6 F 108 H 18 143/94 94 L 03/11/19 17:00 03/11/19 17:00 03/11/19 17:00 03/11/19 17:00 03/11/19 09:00 Lungs clear heart reg abd soft exr min edema IMP -increased azotemia is now resolving may be volume mediated copd chf Plan- continue to provide oral fluids monitor weights CMP in am
[2019-03-11] MEDS: AMITRIPTYLINE HCL 75 MG TABLET PO SCH (21:31)
[2019-03-11] MEDS: ROSUVASTATIN CA 20 MG TABLET (FP) PO SCH (21:31)
[2019-03-11] MEDS: predniSONE 20 MG TABLET (UD) PO SCH (21:31)
[2019-03-11] MEDS: MONTELUKAST NA 10 MG TABLET PO SCH (21:32)
[2019-03-11] MEDS: EZETIMIBE 10 MG TABLET (FP) PO SCH (21:32)
[2019-03-12] MEDS: NYSTATIN 500,000 UNITS/5 ML SUSPENSION PO SCH ×5 (00:40→23:00)
[2019-03-12] MEDS: HYDROmorphone HCl 2 MG/ML VIAL IM PRN ×5 (04:53→22:58)
[2019-03-12] MEDS: INSULIN SLIDING SCALE (NOVOLOG) 1 VIAL SQ SCH ×4 (06:39→21:50)
[2019-03-12] MEDS: HEPARIN NA (PORCINE) 5,000 UNITS/ML 1ML VIAL SQ SCH ×3 (06:40→21:41)
[2019-03-12] MEDS: GABAPENTIN 400 MG CAPSULE (FP) PO SCH ×3 (06:40→21:39)
[2019-03-12] MEDS: ARFORMOTEROL TARTRATE 15 MCG/2 ML VIAL NEB SCH ×2 (08:00→20:38)
[2019-03-12 08:32] LABS: MCHC 31.5 g/dl (32.0-35.9); RBC 4.67 M/mm3 (4.00-5.60)
[2019-03-12 08:56] LABS: ALBUMIN 3.6 g/dl (3.4-5.0); BILIRUBIN,TOTAL 0.4 mg/dL (0.2-1); BLOOD UREA NITROGEN 56.2 mg/dL (7-18); CALCIUM 9.6 mg/dL (8.5-10.1); CREATININE 2.2 mg/dL (0.55-1.3); POTASSIUM 4.7 mmol/L (3.5-5.1); TOT PROT 6.6 g/dl (6.4-8.2)
[2019-03-12] MEDS: LIPASE/PROTEASE/AMYLASE 36,000 UNIT CAPSULE PO SCH ×3 (09:08→17:23)
[2019-03-12] MEDS: PANTOPRAZOLE 20 MG TABLET (FP) PO SCH (09:09)
[2019-03-12] MEDS: hydrALAZINE HCL 25 MG TABLET (FP) PO SCH ×2 (09:09→21:41)
--- NOTE | 2019-03-12 09:09 | PN ---
Progress Note, Physician History of Present Illness: 63 year old black man with a significant past medical history of CAD s/p CT, stents x6 (most recently 12/2015), CABG, HTN, diastolic CHF, HLD, Chronic Pancreatitis, Chronic Back pain, SBO, Incarcerated Hernia s/p repair x2 (September 2017), H.Pylori, BPH, COPD, Bronchial Asthma, Tracheostomy in place (unplugs when sleeping for GRACIE),and anxiety, who presents with worsening shortness of breath for 2-3 weeks, 1 week of productive cough of yellow phlegm and 2-3 days of chest pain and bilateral leg swelling. He reports his chest pain is L sided pressure like 5-6/10 intermittent radiating to the side and back. He admits to lightheadedness but denies nausea or diaphoresis. He staties that he has taken prednisone 60mg everday for 3 days and doubled his lasix to 80mg a day for 4 days. He reports his symptoms feel like a CHF exacerbation. He took albuterol and breathing treatment prior to arrival. He has no other complaints at bedside. As discussed with his nurse discharge, Dr. Bola Elaine, today, he has had multiple admissions for chest pain since the last coronary stent; these have been negative for CT. (07/2016 dobutamine stress MIBI at [facility] : small, mild periinfarct inferior wall ischemia; pt may have had a more recent stress MIBI or angiogram as an outpatient). - Current Medication List Current Medications: Active Medications Al Hydroxide/Mg Hydroxide (Mylanta Suspension -) 30 ml PO Q6H PRN PRN Reason: DYSPEPSIA Amitriptyline HCl (Elavil -) 75 mg PO HS [facility] Last Admin: 03/11/19 21:31 Dose: 75 mg Arformoterol Tartrate (Brovana (Restricted To Pulmonology/Resp) -) 1 amp NEB RBID [facility] Last Admin: 03/12/19 08:00 Dose: 1 amp Aspirin (Ecotrin -) 81 mg PO DAILY [facility] Last Admin: 03/11/19 10:02 Dose: 81 mg Budesonide/Formoterol Fumarate (Symbicort 160/4.5mcg -) 1 puff IH BID [facility] Last Admin: 03/11/19 21:32 Dose: 1 puff Clopidogrel Bisulfate (Plavix -) 75 mg PO DAILY [facility] Last Admin: 03/11/19 10:00 Dose: 75 mg Ezetimibe (Zetia -) 10 mg PO HS [facility] Last Admin: 03/11/19 21:32 Dose: 10 mg Finasteride (Proscar -) 5 mg PO DAILY [facility] Last Admin: 03/11/19 10:00 Dose: 5 mg Furosemide (Lasix Injection -) 40 mg IVPUSH DAILY [facility] Last Admin: 03/11/19 11:46 Dose: 40 mg Gabapentin (Neurontin -) 800 mg PO TID [facility] Last Admin: 03/12/19 06:40 Dose: 800 mg Heparin Sodium (Porcine) (Heparin -) 5,000 unit SQ TID [facility] Last Admin: 03/12/19 06:40 Dose: 5,000 unit Hydralazine HCl (Apresoline -) 50 mg PO BID [facility] Last Admin: 03/11/19 21:31 Dose: 50 mg Hydromorphone HCl (Dilaudid Vial -) 2 mg IM Q4H PRN PRN Reason: PAIN LEVEL 6-10 Last Admin: 03/12/19 04:53 Dose: 2 mg Insulin Aspart (Novolog Vial Sliding Scale -) 1 vial SQ [facility]; Protocol Last Admin: 03/12/19 06:39 Dose: 4 units Isosorbide Mononitrate (Imdur -) 30 mg PO DAILY [facility] Last Admin: 03/11/19 10:00 Dose: 30 mg Montelukast Sodium (Singulair -) 10 mg PO HS [facility] Last Admin: 03/11/19 21:32 Dose: 10 mg Nifedipine (Procardia Xl -) 30 mg PO DAILY [facility] Nystatin (Nystatin Oral Suspension -) 500,000 units PO Q6HPO [facility] Last Admin: 03/12/19 06:40 Dose: 500,000 units Oxycodone HCl (Roxicodone -) 10 mg PO BID [facility] Last Admin: 03/11/19 21:32 Dose: 10 mg Pancrelipase (Creon Dr 36,000 Units Capsule) 1 cap PO TIDCM [facility] Last Admin: 03/11/19 17:07 Dose: 1 cap Pantoprazole Sodium (Protonix -) 20 mg PO DAILY [facility] Last Admin: 03/11/19 10:00 Dose: 20 mg Polyethylene Glycol (Miralax (For Daily Use) -) 17 gm PO BID [facility] Last Admin: 03/11/19 21:33 Dose: 17 gm Prednisone (Deltasone -) 20 mg PO BID [facility] Last Admin: 03/11/19 21:31 Dose: 20 mg Rosuvastatin Calcium (Crestor -) 20 mg PO HS [facility] Last Admin: 03/11/19 21:31 Dose: 20 mg Senna/Docusate Sodium (Pericolace -) 1 tablet PO DAILY [facility] Last Admin: 03/11/19 10:01 Dose: 1 tablet Tamsulosin HCl (Flomax -) 0.4 mg PO DAILY@0830 [facility] Last Admin: 03/11/19 08:34 Dose: 0.4 mg Tiotropium [place] (Spiriva Respimat) 2 puff IH DAILY [facility] Last Admin: 03/11/19 10:02 Dose: 2 puff - Objective Vital Signs: Vital Signs Temperature 97.5 F L 03/12/19 05:00 Pulse Rate 86 03/12/19 05:00 Respiratory Rate 18 03/12/19 05:00 Blood Pressure 158/90 03/12/19 05:00 O2 Sat by Pulse Oximetry (%) 94 L 03/11/19 20:45 Eyes: Yes: WNL, Conjunctiva Clear, EOM Intact HENT: Yes: WNL, Atraumatic, Normocephalic Neck: Yes: WNL, Supple, Trachea Midline Cardiovascular: Yes: WNL, Regular Rate and Rhythm Respiratory: Yes: WNL, Regular, CTA Bilaterally Gastrointestinal: Yes: WNL, Normal Bowel Sounds Genitourinary: Yes: WNL Musculoskeletal: Yes: WNL Extremities: Yes: WNL Edema: Yes Integumentary: Yes: WNL Neurological: Yes: WNL, Alert, Oriented ...Motor Strength: WNL Psychiatric: Yes: WNL Labs: CBC, BMP 03/12/19 07:40 Assessment/Plan - Problems (1) BMI 39.0-39.9,adult Assessment/Plan: The importance of weight loss has been discussed multiple times this admission. Now, with his at beside and encouraging him, he says he will continue to see the international controller here, and will set a goal for weight loss. Code(s): Z68.39 - BODY MASS INDEX (BMI) 39.0-39.9, ADULT (2) Leg edema Code(s): R60.0 - LOCALIZED EDEMA (3) Diastolic CHF Assessment/Plan: On amlodipine; added hydralazine + Imdur for HTN. F/u BUN/Cr, electrolytes, daily weight, Is and Os. Code(s): I50.30 - UNSPECIFIED DIASTOLIC (CONGESTIVE) HEART FAILURE (4) Anxiety Code(s): F41.9 - ANXIETY DISORDER, UNSPECIFIED (5) Opiate dependence Assessment/Plan: Will require long-term help, ideally, for pain management, psychological counseling, and gradual weaning from opiates. This was discussed today with his present. Code(s): F11.20 - OPIOID DEPENDENCE, UNCOMPLICATED (6) Renal insufficiency Assessment/Plan: avoid overzealous diuresis. F/u BUN/Cr (Cr 1.1 on 07/2018; on this admission, it was initially 1.3; now 2.1- ->1.7)), Is and Os, daily weight electrolytes (off chlorthalidone, furosemide, ACEI) Not in acute CHF. f/u with clinical lab technologist. Code(s): N28.9 - DISORDER OF KIDNEY AND URETER, UNSPECIFIED (7) HTN (hypertension) Assessment/Plan: On amllodipine. Hydralazine + Imdur added due to increasing BP, with improved readings during the day. F/u, and increase doses as needed. Code(s): I10 - ESSENTIAL (PRIMARY) HYPERTENSION (8) Hyperlipidemia Assessment/Plan: Diet control; weight loss; exercise. statin; keep LDL < 70 mg/dl. (as noted by GI pt may benefit from stopping Zetia in regards to elevated LFTs; follow up lipids after pt compliant to Crestor alone for several weeks). The importance of weight loss, proper food choices, and exercise in aiding weight loss and lipid control was discussed. Pt would benefit from nutritioist f /u; he agrees to do so, and his , present today, is in agreement. Code(s): E78.5 - HYPERLIPIDEMIA, UNSPECIFIED (9) Hx of heart artery stent Assessment/Plan: Most recently 2015. On ASA (change to non-enteric coated) and clopidogrel. Code(s): Z95.5 - PRESENCE OF CORONARY ANGIOPLASTY IMPLANT AND GRAFT (10) COPD exacerbation Assessment/Plan: Taper off IV steroids per chief hospital administrator Code(s): J44.1 - CHRONIC OBSTRUCTIVE PULMONARY DISEASE W (ACUTE) EXACERBATION (11) Atypical chest pain Assessment/Plan: Sharp chest pains exacerbated by deep inspiration. TNI 0.02 x 3. EKG: normal sinus rhythm; normal study. Discussed with pt's private nurse discharge (Dr. Elaine) on admission. Records regarding most recent coronary artery workup (has apparently not required coronary stent since 2016); stress MIBI 2017 showed mild ischemia. On ASA and clopidogrel. Statin (though on Zetia, spotty compliance to statin may explain elevated LDL on admission)..
[2019-03-12] MEDS: FINASTERIDE 5 MG TABLET (FP) PO SCH (09:10)
[2019-03-12] MEDS: NIFEdipine E.R. 30 MG TABLET (FP) PO SCH (09:10)
[2019-03-12] MEDS: SENNOSIDES/DOCUSATE COMBO (SENNA PLUS) TABLET (UD) PO SCH (09:10)
[2019-03-12] MEDS: predniSONE 20 MG TABLET (UD) PO SCH ×2 (09:11→21:41)
[2019-03-12] MEDS: oxyCODONE HCL 5 MG TABLET PO SCH ×2 (09:11→21:39)
[2019-03-12] MEDS: CLOPIDOGREL BISULFATE 75 MG TABLET (FP) PO SCH (09:12)
[2019-03-12 09:13] LABS: BASO % 0.2 % (0-2.0); EOS % 0.9 % (0-4.5); HEMATOCRIT 39.2 % (35.4-49); HEMOGLOBIN 12.4 GM/dL (11.7-16.9); LYMPH % 16.5 % (8-40); MCH 26.5 pg (25.7-33.7); MEAN CELL VOLUME 83.9 fl (80-96); MEAN PLT VOLUME 7.7 fl (7.5-11.1); MONO % 5.9 % (3.8-10.2); NEUT % 76.5 % (42.8-82.8); PLATELET COUNT 326 K/MM3 (134-434); RDW 15.7 % (11.9-15.9); WHITE BLOOD COUNT 14.2 K/mm3 (4.0-10.0)
[2019-03-12] MEDS: TAMSULOSIN HCL 0.4 MG CAP PO SCH (09:13)
[2019-03-12] MEDS: ASPIRIN COATED 81 MG TABLET.EC PO SCH (09:13)
[2019-03-12] MEDS: TIOTROPIUM BROMIDE 2.5 MCG (SPIRIVA) RESPIMAT INHALER IH SCH (09:18)
[2019-03-12] MEDS: BUDESONIDE/FORMETEROL FUMARATE 160/4.5 mcg INHALER IH SCH ×2 (09:18→21:38)
[2019-03-12] MEDS: FUROSEMIDE 40 MG/4 ML INJECTABLE VIAL IVPUSH SCH (09:40)
[2019-03-12] MEDS: POLYETHYLENE GLYCOL 3350 119 GM BTL PO SCH ×2 (09:40→21:41)
[2019-03-12] MEDS: ISOSORBIDE MONONITRATE 30 MG TAB.SR.24H (FP) PO SCH (09:40)
--- NOTE | 2019-03-12 11:01 | PN ---
Progress Note, Physician - Current Medication List Current Medications: Active Medications Al Hydroxide/Mg Hydroxide (Mylanta Suspension -) 30 ml PO Q6H PRN PRN Reason: DYSPEPSIA Amitriptyline HCl (Elavil -) 75 mg PO [facility] Last Admin: 03/11/19 21:31 Dose: 75 mg Arformoterol Tartrate (Brovana (Restricted To Pulmonology/Resp) -) 1 amp NEB RBID [facility] Last Admin: 03/12/19 08:00 Dose: 1 amp Aspirin (Ecotrin -) 81 mg PO DAILY [facility] Last Admin: 03/12/19 09:13 Dose: 81 mg Budesonide/Formoterol Fumarate (Symbicort 160/4.5mcg -) 1 puff IH BID [facility] Last Admin: 03/12/19 09:18 Dose: 1 puff Clopidogrel Bisulfate (Plavix -) 75 mg PO DAILY [facility] Last Admin: 03/12/19 09:12 Dose: 75 mg Ezetimibe (Zetia -) 10 mg PO [facility] Last Admin: 03/11/19 21:32 Dose: 10 mg Finasteride (Proscar -) 5 mg PO DAILY [facility] Last Admin: 03/12/19 09:10 Dose: 5 mg Furosemide (Lasix Injection -) 40 mg IVPUSH DAILY [facility] Last Admin: 03/12/19 09:40 Dose: 40 mg Gabapentin (Neurontin -) 800 mg PO TID [facility] Last Admin: 03/12/19 06:40 Dose: 800 mg Heparin Sodium (Porcine) (Heparin -) 5,000 unit SQ TID [facility] Last Admin: 03/12/19 06:40 Dose: 5,000 unit Hydralazine HCl (Apresoline -) 50 mg PO BID [facility] Last Admin: 03/12/19 09:09 Dose: 50 mg Hydromorphone HCl (Dilaudid Vial -) 2 mg IM Q4H PRN PRN Reason: PAIN LEVEL 6-10 Last Admin: 03/12/19 09:14 Dose: 2 mg Insulin Aspart (Novolog Vial Sliding Scale -) 1 vial SQ [facility]; Protocol Last Admin: 03/12/19 06:39 Dose: 4 units Isosorbide Mononitrate (Imdur -) 30 mg PO DAILY [facility] Last Admin: 03/12/19 09:40 Dose: 30 mg Montelukast Sodium (Singulair -) 10 mg PO HS [facility] Last Admin: 03/11/19 21:32 Dose: 10 mg Nifedipine (Procardia Xl -) 30 mg PO DAILY [facility] Last Admin: 03/12/19 09:10 Dose: 30 mg Nystatin (Nystatin Oral Suspension -) 500,000 units PO Q6HPO [facility] Last Admin: 03/12/19 06:40 Dose: 500,000 units Oxycodone HCl (Roxicodone -) 10 mg PO BID [facility] Last Admin: 03/12/19 09:11 Dose: 10 mg Pancrelipase (Creon Dr 36,000 Units Capsule) 1 cap PO TIDCM [facility] Last Admin: 03/12/19 09:08 Dose: 1 cap Pantoprazole Sodium (Protonix -) 20 mg PO DAILY [facility] Last Admin: 03/12/19 09:09 Dose: 20 mg Polyethylene Glycol (Miralax (For Daily Use) -) 17 gm PO BID [facility] Last Admin: 03/12/19 09:40 Dose: Not Given Prednisone (Deltasone -) 20 mg PO BID [facility] Last Admin: 03/12/19 09:11 Dose: 20 mg Rosuvastatin Calcium (Crestor -) 20 mg PO HS [facility] Last Admin: 03/11/19 21:31 Dose: 20 mg Senna/Docusate Sodium (Pericolace -) 1 tablet PO DAILY [facility] Last Admin: 03/12/19 09:10 Dose: 1 tablet Tamsulosin HCl (Flomax -) 0.4 mg PO DAILY@0830 [facility] Last Admin: 03/12/19 09:13 Dose: 0.4 mg Tiotropium [place] (Spiriva Respimat) 2 puff IH DAILY [facility] Last Admin: 03/12/19 09:18 Dose: 2 puff - Objective Vital Signs: Vital Signs Temperature 98.8 F 03/12/19 09:00 Pulse Rate 95 H 03/12/19 09:00 Respiratory Rate 18 03/12/19 09:00 Blood Pressure 118/101 H 03/12/19 09:00 O2 Sat by Pulse Oximetry (%) 98 03/12/19 09:00 Cardiovascular: Yes: Regular Rate and Rhythm Respiratory: Yes: CTA Bilaterally, Rhonchi, Wheezes Gastrointestinal: Yes: Normal Bowel Sounds, Soft Edema: Yes Labs: CBC, BMP 03/12/19 07:40 03/12/19 07:40 Assessment/Plan - Problems (1) BMI 39.0-39.9,adult Assessment/Plan: -Dietary consult Code(s): Z68.39 - BODY MASS INDEX (BMI) 39.0-39.9, ADULT (2) COPD exacerbation Assessment/Plan: -Pulm on board -O2 via NC -keep SpO2 >90% -Symbicort, Brovanna, Spiriva -bronchodilators -IV Medrol--po Code(s): J44.1 - CHRONIC OBSTRUCTIVE PULMONARY DISEASE W (ACUTE) EXACERBATION (3) Diastolic CHF Assessment/Plan: -Cardiology on board -1L fluid restriction -daily weights -strict I&Os -IV LASIX Code(s): I50.30 - UNSPECIFIED DIASTOLIC (CONGESTIVE) HEART FAILURE (4) Leg edema Assessment/Plan: -keep legs elevated -IV LASIX Code(s): R60.0 - LOCALIZED EDEMA (5) Renal insufficiency Assessment/Plan: -Renal on board -BUN/Cr 49.7/1.9 -continue to monitor renal function Code(s): N28.9 - DISORDER OF KIDNEY AND URETER, UNSPECIFIED (6) HTN (hypertension) Assessment/Plan: -Norvasc, Chlorthalidone -Hydralazine BID and Imdur added to regimen -low Na diet Code(s): I10 - ESSENTIAL (PRIMARY) HYPERTENSION (7) Hyperlipidemia Assessment/Plan: -Zetia, Crestor Code(s): E78.5 - HYPERLIPIDEMIA, UNSPECIFIED (8) Diabetes mellitus Assessment/Plan: -BGM ACHS -Insulin pump -ISS -diabetic diet Code(s): E11.9 - TYPE 2 DIABETES MELLITUS WITHOUT COMPLICATIONS Qualifiers: Diabetes mellitus type: type 2 (9) Intractable low back pain Assessment/Plan: -Pain consult -Dilaudid, Nucynta, Percocet -Neurosurgery consult Code(s): M54.5 - LOW BACK PAIN (10) Abdominal pain Assessment/Plan: -Abdominal US shows fatty enlarged liver, possible gallstone -GI on board Code(s): R10.9 - UNSPECIFIED ABDOMINAL PAIN (11) Hyperkalemia Assessment/Plan: -K 4.4 -resolved -renal on board Code(s): E87.5 - HYPERKALEMIA
--- NOTE | 2019-03-12 11:24 | PN ---
Progress Note (short form) - Note Progress Note: PULMONARY Breathing continues to slowly improve. Still with cough and wheezing. No fevers or chills. Vital Signs Period Temp Pulse Resp BP Sys/Gates Pulse Ox Last 24 Hr 97.5 F-98.8 F 76-108 18-18 118-158/90-101 94-98 Gen: NAD at rest Heart: RRR Lung: scattered rhonchi Abd: soft, nontender Ext: + edema CBC, BMP 03/12/19 07:40 03/12/19 07:40 Active Medications Al Hydroxide/Mg Hydroxide (Mylanta Suspension -) 30 ml PO Q6H PRN PRN Reason: DYSPEPSIA Amitriptyline HCl (Elavil -) 75 mg PO [facility] Last Admin: 03/11/19 21:31 Dose: 75 mg Arformoterol Tartrate (Brovana (Restricted To Pulmonology/Resp) -) 1 amp NEB RBID [facility] Last Admin: 03/12/19 08:00 Dose: 1 amp Aspirin (Ecotrin -) 81 mg PO DAILY [facility] Last Admin: 03/12/19 09:13 Dose: 81 mg Budesonide/Formoterol Fumarate (Symbicort 160/4.5mcg -) 1 puff IH BID [facility] Last Admin: 03/12/19 09:18 Dose: 1 puff Clopidogrel Bisulfate (Plavix -) 75 mg PO DAILY [facility] Last Admin: 03/12/19 09:12 Dose: 75 mg Ezetimibe (Zetia -) 10 mg PO [facility] Last Admin: 03/11/19 21:32 Dose: 10 mg Finasteride (Proscar -) 5 mg PO DAILY [facility] Last Admin: 03/12/19 09:10 Dose: 5 mg Furosemide (Lasix Injection -) 40 mg IVPUSH DAILY [facility] Last Admin: 03/12/19 09:40 Dose: 40 mg Gabapentin (Neurontin -) 800 mg PO TID [facility] Last Admin: 03/12/19 06:40 Dose: 800 mg Heparin Sodium (Porcine) (Heparin -) 5,000 unit SQ TID [facility] Last Admin: 03/12/19 06:40 Dose: 5,000 unit Hydralazine HCl (Apresoline -) 50 mg PO BID [facility] Last Admin: 03/12/19 09:09 Dose: 50 mg Hydromorphone HCl (Dilaudid Vial -) 2 mg IM Q4H PRN PRN Reason: PAIN LEVEL 6-10 Last Admin: 03/12/19 09:14 Dose: 2 mg Insulin Aspart (Novolog Vial Sliding Scale -) 1 vial SQ ACHS [facility]; Protocol Last Admin: 03/12/19 06:39 Dose: 4 units Isosorbide Mononitrate (Imdur -) 30 mg PO DAILY [facility] Last Admin: 03/12/19 09:40 Dose: 30 mg Montelukast Sodium (Singulair -) 10 mg PO [facility] Last Admin: 03/11/19 21:32 Dose: 10 mg Nifedipine (Procardia Xl -) 30 mg PO DAILY [facility] Last Admin: 03/12/19 09:10 Dose: 30 mg Nystatin (Nystatin Oral Suspension -) 500,000 units PO Q6HPO [facility] Last Admin: 03/12/19 06:40 Dose: 500,000 units Oxycodone HCl (Roxicodone -) 10 mg PO BID [facility] Last Admin: 03/12/19 09:11 Dose: 10 mg Pancrelipase (Creon Dr 36,000 Units Capsule) 1 cap PO TIDCM [facility] Last Admin: 03/12/19 09:08 Dose: 1 cap Pantoprazole Sodium (Protonix -) 20 mg PO DAILY [facility] Last Admin: 03/12/19 09:09 Dose: 20 mg Polyethylene Glycol (Miralax (For Daily Use) -) 17 gm PO BID [facility] Last Admin: 03/12/19 09:40 Dose: Not Given Prednisone (Deltasone -) 20 mg PO BID [facility] Last Admin: 03/12/19 09:11 Dose: 20 mg Rosuvastatin Calcium (Crestor -) 20 mg PO [facility] Last Admin: 03/11/19 21:31 Dose: 20 mg Senna/Docusate Sodium (Pericolace -) 1 tablet PO DAILY [facility] Last Admin: 03/12/19 09:10 Dose: 1 tablet Tamsulosin HCl (Flomax -) 0.4 mg PO DAILY@0830 [facility] Last Admin: 03/12/19 09:13 Dose: 0.4 mg Tiotropium [place] (Spiriva Respimat) 2 puff IH DAILY [facility] Last Admin: 03/12/19 09:18 Dose: 2 puff A/P Acute COPD Exacerbation improving Acute on Chronic Diastolic Heart Failure Chronic Hypoxic Respiratory Failure Obstructive Sleep Apnea s/p Tracheostomy CAD s/p CABG HTN DM Hyperlipidemia Spinal Stenosis Chronic Pain Syndrome Opiate Dependence Acute on chronic kidney disease - slow prednisone taper - inhaled bronchodilators standing and PRN - O2 to keep Spo2 >90% - glucose control while on systemic steroids - monitor urine output, creatinine - uncap tracheostomy when sleeping - pain control - DVT prophylaxis Problem List - Problems (1) COPD exacerbation Code(s): J44.1 - CHRONIC OBSTRUCTIVE PULMONARY DISEASE W (ACUTE) EXACERBATION
[2019-03-12 12:41] LABS: ANISOCYTOSIS 1+; MACROCYTOSIS 0; OVALOCYTE 1+; PLATELET ESTIMATE NORMAL; TARGET CELLS 1+; TEAR DROP CELLS 1+
--- NOTE | 2019-03-12 21:14 | PN ---
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 chf Current Medications Al Hydroxide/Mg Hydroxide (Mylanta Suspension -) 30 ml PO Q6H PRN PRN Reason: DYSPEPSIA Amitriptyline HCl (Elavil -) 75 mg PO HS [facility] Last Admin: 03/11/19 21:31 Dose: 75 mg Arformoterol Tartrate (Brovana (Restricted To Pulmonology/Resp) -) 1 amp NEB RBID [facility] Last Admin: 03/12/19 20:38 Dose: 1 amp Aspirin (Ecotrin -) 81 mg PO DAILY [facility] Last Admin: 03/12/19 09:13 Dose: 81 mg Budesonide/Formoterol Fumarate (Symbicort 160/4.5mcg -) 1 puff IH BID [facility] Last Admin: 03/12/19 09:18 Dose: 1 puff Clopidogrel Bisulfate (Plavix -) 75 mg PO DAILY [facility] Last Admin: 03/12/19 09:12 Dose: 75 mg Ezetimibe (Zetia -) 10 mg PO [facility] Last Admin: 03/11/19 21:32 Dose: 10 mg Finasteride (Proscar -) 5 mg PO DAILY [facility] Last Admin: 03/12/19 09:10 Dose: 5 mg Furosemide (Lasix Injection -) 40 mg IVPUSH DAILY [facility] Last Admin: 03/12/19 09:40 Dose: 40 mg Gabapentin (Neurontin -) 800 mg PO TID [facility] Last Admin: 03/12/19 14:38 Dose: 800 mg Heparin Sodium (Porcine) (Heparin -) 5,000 unit SQ TID [facility] Last Admin: 03/12/19 14:38 Dose: 5,000 unit Hydralazine HCl (Apresoline -) 50 mg PO BID [facility] Last Admin: 03/12/19 09:09 Dose: 50 mg Hydromorphone HCl (Dilaudid Vial -) 2 mg IM Q4H PRN PRN Reason: PAIN LEVEL 6-10 Last Admin: 03/12/19 18:36 Dose: 2 mg Insulin Aspart (Novolog Vial Sliding Scale -) 1 vial SQ [facility]; Protocol Last Admin: 03/12/19 16:52 Dose: 2 units Isosorbide Mononitrate (Imdur -) 30 mg PO DAILY [facility] Last Admin: 03/12/19 09:40 Dose: 30 mg Montelukast Sodium (Singulair -) 10 mg PO HS [facility] Last Admin: 03/11/19 21:32 Dose: 10 mg Nifedipine (Procardia Xl -) 30 mg PO DAILY [facility] Last Admin: 03/12/19 09:10 Dose: 30 mg Nystatin (Nystatin Oral Suspension -) 500,000 units PO Q6HPO [facility] Last Admin: 03/12/19 17:23 Dose: 500,000 units Oxycodone HCl (Roxicodone -) 10 mg PO BID [facility] Last Admin: 03/12/19 09:11 Dose: 10 mg Pancrelipase (Creon Dr 36,000 Units Capsule) 1 cap PO TIDCM [facility] Last Admin: 03/12/19 17:23 Dose: 1 cap Pantoprazole Sodium (Protonix -) 20 mg PO DAILY [facility] Last Admin: 03/12/19 09:09 Dose: 20 mg Polyethylene Glycol (Miralax (For Daily Use) -) 17 gm PO BID [facility] Last Admin: 03/12/19 09:40 Dose: Not Given Prednisone (Deltasone -) 20 mg PO BID [facility] Last Admin: 03/12/19 09:11 Dose: 20 mg Rosuvastatin Calcium (Crestor -) 20 mg PO HS [facility] Last Admin: 03/11/19 21:31 Dose: 20 mg Senna/Docusate Sodium (Pericolace -) 1 tablet PO DAILY [facility] Last Admin: 03/12/19 09:10 Dose: 1 tablet Tamsulosin HCl (Flomax -) 0.4 mg PO DAILY@0830 [facility] Last Admin: 03/12/19 09:13 Dose: 0.4 mg Tiotropium [place] (Spiriva Respimat) 2 puff IH DAILY [facility] Last Admin: 03/12/19 09:18 Dose: 2 puff Last Vital Signs Temp Pulse Resp BP Pulse Ox 97.6 F 90 18 159/86 100 03/12/19 20:48 03/12/19 20:48 03/12/19 20:48 03/12/19 20:48 03/12/19 20:48 Lungs clear heart reg abd soft exr min edema CBC, BMP 03/12/19 07:40 03/12/19 07:40 IMP -increased azotemia again less edema in lower ext advised to increase fluid intake orally and avoid high salt intake copd chf Plan- continue to provide oral fluids monitor weights CMP in am
[2019-03-12] MEDS ORDERED: PT OWN MED DRAWER 7, Y5N ONE (21:25)
[2019-03-12] MEDS: ROSUVASTATIN CA 20 MG TABLET (FP) PO SCH (21:39)
[2019-03-12] MEDS: MONTELUKAST NA 10 MG TABLET PO SCH (21:40)
[2019-03-12] MEDS: AMITRIPTYLINE HCL 75 MG TABLET PO SCH (21:40)
[2019-03-12] MEDS: EZETIMIBE 10 MG TABLET (FP) PO SCH (21:40)
[2019-03-12] MEDS: ALBUTEROL SO4 0.083% IH SOL 2.5 MG/3 ML VIAL.NEB. NEB PRN (23:41)
[2019-03-13] MEDS: NYSTATIN 500,000 UNITS/5 ML SUSPENSION PO SCH ×3 (05:28→18:07)
[2019-03-13] MEDS: GABAPENTIN 400 MG CAPSULE (FP) PO SCH ×3 (05:28→22:03)
[2019-03-13] MEDS: HEPARIN NA (PORCINE) 5,000 UNITS/ML 1ML VIAL SQ SCH ×3 (05:28→22:02)
[2019-03-13] MEDS: HYDROmorphone HCl 2 MG/ML VIAL IM PRN ×3 (05:49→23:10)
[2019-03-13] MEDS: INSULIN SLIDING SCALE (NOVOLOG) 1 VIAL SQ SCH ×4 (06:16→22:02)
[2019-03-13] MEDS: ARFORMOTEROL TARTRATE 15 MCG/2 ML VIAL NEB SCH ×2 (07:29→19:36)
[2019-03-13 07:35] LABS: BASO % 0.3 % (0-2.0); EOS % 0.9 % (0-4.5); HEMATOCRIT 37.9 % (35.4-49); HEMOGLOBIN 12.2 GM/dL (11.7-16.9); LYMPH % 17.1 % (8-40); MCH 26.6 pg (25.7-33.7); MCHC 32.2 g/dl (32.0-35.9); MEAN CELL VOLUME 82.6 fl (80-96); MEAN PLT VOLUME 7.8 fl (7.5-11.1); MONO % 5.8 % (3.8-10.2); NEUT % 75.9 % (42.8-82.8); PLATELET COUNT 305 K/MM3 (134-434); RBC 4.59 M/mm3 (4.00-5.60); RDW 15.4 % (11.9-15.9); WHITE BLOOD COUNT 14.2 K/mm3 (4.0-10.0)
[2019-03-13 07:53] LABS: ALBUMIN 3.6 g/dl (3.4-5.0); BILIRUBIN,TOTAL 0.4 mg/dL (0.2-1); BLOOD UREA NITROGEN 57.8 mg/dL (7-18); CALCIUM 9.4 mg/dL (8.5-10.1); CREATININE 2.1 mg/dL (0.55-1.3); POTASSIUM 4.7 mmol/L (3.5-5.1); TOT PROT 6.4 g/dl (6.4-8.2)
[2019-03-13] MEDS: LIPASE/PROTEASE/AMYLASE 36,000 UNIT CAPSULE PO SCH ×3 (08:15→18:09)
[2019-03-13] MEDS ORDERED: PT OWN MED DRAWER 7, Y5N ONE ×2 (08:33→10:26)
[2019-03-13] MEDS: TAMSULOSIN HCL 0.4 MG CAP PO SCH (08:37)
[2019-03-13 10:25] LABS: ANISOCYTOSIS 1+; MACROCYTOSIS 0; PLATELET ESTIMATE NORMAL
[2019-03-13] MEDS: CLOPIDOGREL BISULFATE 75 MG TABLET (FP) PO SCH (10:27)
[2019-03-13] MEDS: predniSONE 20 MG TABLET (UD) PO SCH ×2 (10:27→22:07)
[2019-03-13] MEDS: NIFEdipine E.R. 30 MG TABLET (FP) PO SCH (10:28)
[2019-03-13] MEDS: FUROSEMIDE 40 MG/4 ML INJECTABLE VIAL IVPUSH SCH (10:28)
[2019-03-13] MEDS: oxyCODONE HCL 5 MG TABLET PO SCH ×2 (10:29→22:03)
[2019-03-13] MEDS: PANTOPRAZOLE 20 MG TABLET (FP) PO SCH (10:31)
[2019-03-13] MEDS: POLYETHYLENE GLYCOL 3350 119 GM BTL PO SCH ×2 (10:32→22:08)
[2019-03-13] MEDS: hydrALAZINE HCL 25 MG TABLET (FP) PO SCH ×2 (10:32→22:03)
[2019-03-13] MEDS: FINASTERIDE 5 MG TABLET (FP) PO SCH (10:32)
[2019-03-13] MEDS: SENNOSIDES/DOCUSATE COMBO (SENNA PLUS) TABLET (UD) PO SCH (10:32)
[2019-03-13] MEDS: ISOSORBIDE MONONITRATE 30 MG TAB.SR.24H (FP) PO SCH (10:33)
[2019-03-13] MEDS: TIOTROPIUM BROMIDE 2.5 MCG (SPIRIVA) RESPIMAT INHALER IH SCH (10:33)
[2019-03-13] MEDS: BUDESONIDE/FORMETEROL FUMARATE 160/4.5 mcg INHALER IH SCH (10:33)
[2019-03-13] MEDS: ASPIRIN COATED 81 MG TABLET.EC PO SCH (10:33)
--- NOTE | 2019-03-13 10:54 | PN ---
Progress Note, Physician History of Present Illness: pulmonary comfortable at rest,+ de la o - Current Medication List Current Medications: Active Medications Al Hydroxide/Mg Hydroxide (Mylanta Suspension -) 30 ml PO Q6H PRN PRN Reason: DYSPEPSIA Albuterol Sulfate (Ventolin 0.083% Nebulizer Soln -) 1 amp NEB Q6H PRN PRN Reason: SHORT OF BREATH/WHEEZING Last Admin: 03/12/19 23:41 Dose: 1 amp Amitriptyline HCl (Elavil -) 75 mg PO HS [facility] Last Admin: 03/12/19 21:40 Dose: 75 mg Arformoterol Tartrate (Brovana (Restricted To Pulmonology/Resp) -) 1 amp NEB RBID [facility] Last Admin: 03/13/19 07:29 Dose: 1 amp Aspirin (Ecotrin -) 81 mg PO DAILY [facility] Last Admin: 03/13/19 10:33 Dose: 81 mg Budesonide/Formoterol Fumarate (Symbicort 160/4.5mcg -) 1 puff IH BID [facility] Last Admin: 03/13/19 10:33 Dose: 1 puff Clopidogrel Bisulfate (Plavix -) 75 mg PO DAILY [facility] Last Admin: 03/13/19 10:27 Dose: 75 mg Ezetimibe (Zetia -) 10 mg PO HS [facility] Last Admin: 03/12/19 21:40 Dose: 10 mg Finasteride (Proscar -) 5 mg PO DAILY [facility] Last Admin: 03/13/19 10:32 Dose: 5 mg Furosemide (Lasix Injection -) 40 mg IVPUSH DAILY [facility] Last Admin: 03/13/19 10:28 Dose: 40 mg Gabapentin (Neurontin -) 800 mg PO TID [facility] Last Admin: 03/13/19 05:28 Dose: 800 mg Heparin Sodium (Porcine) (Heparin -) 5,000 unit SQ TID [facility] Last Admin: 03/13/19 05:28 Dose: 5,000 unit Hydralazine HCl (Apresoline -) 50 mg PO BID [facility] Last Admin: 03/13/19 10:32 Dose: 50 mg Hydromorphone HCl (Dilaudid Vial -) 2 mg IM Q4H PRN PRN Reason: PAIN LEVEL 6-10 Last Admin: 03/13/19 05:49 Dose: 2 mg Insulin Aspart (Novolog Vial Sliding Scale -) 1 vial SQ ACHS [facility]; Protocol Last Admin: 03/13/19 06:16 Dose: 4 units Isosorbide Mononitrate (Imdur -) 30 mg PO DAILY [facility] Last Admin: 03/13/19 10:33 Dose: 30 mg Montelukast Sodium (Singulair -) 10 mg PO HS [facility] Last Admin: 03/12/19 21:40 Dose: 10 mg Nifedipine (Procardia Xl -) 30 mg PO DAILY [facility] Last Admin: 03/13/19 10:28 Dose: 30 mg Nystatin (Nystatin Oral Suspension -) 500,000 units PO Q6HPO [facility] Last Admin: 03/13/19 05:28 Dose: 500,000 units Oxycodone HCl (Roxicodone -) 10 mg PO BID [facility] Last Admin: 03/13/19 10:29 Dose: 10 mg Pancrelipase (Creon Dr 36,000 Units Capsule) 1 cap PO TIDCM [facility] Last Admin: 03/13/19 08:15 Dose: 1 cap Pantoprazole Sodium (Protonix -) 20 mg PO DAILY [facility] Last Admin: 03/13/19 10:31 Dose: 20 mg Polyethylene Glycol (Miralax (For Daily Use) -) 17 gm PO BID [facility] Last Admin: 03/13/19 10:32 Dose: Not Given Prednisone (Deltasone -) 20 mg PO BID [facility] Last Admin: 03/13/19 10:27 Dose: 20 mg Rosuvastatin Calcium (Crestor -) 20 mg PO [facility] Last Admin: 03/12/19 21:39 Dose: 20 mg Senna/Docusate Sodium (Pericolace -) 1 tablet PO DAILY [facility] Last Admin: 03/13/19 10:32 Dose: 1 tablet Tamsulosin HCl (Flomax -) 0.4 mg PO DAILY@0830 [facility] Last Admin: 03/13/19 08:37 Dose: 0.4 mg Tiotropium [place] (Spiriva Respimat) 2 puff IH DAILY [facility] Last Admin: 03/13/19 10:33 Dose: 2 puff - Objective Vital Signs: Vital Signs Temperature 98.5 F 03/13/19 05:49 Pulse Rate 93 H 03/13/19 05:49 Respiratory Rate 18 03/13/19 05:49 Blood Pressure 106/80 03/13/19 05:49 O2 Sat by Pulse Oximetry (%) 100 09/01/19 20:48 Constitutional: Yes: Calm, Obese Eyes: Yes: WNL HENT: Yes: WNL Neck: Yes: Supple (trach) Cardiovascular: Yes: Regular Rate and Rhythm, S1, S2 Respiratory: Yes: Wheezes (few scattered wheezes) Gastrointestinal: Yes: Normal Bowel Sounds, Soft Extremities: Yes: WNL Edema: Yes (less edema stewart) Labs: CBC, BMP 03/13/19 06:15 03/13/19 06:15 Problem List - Problems (1) BMI 39.0-39.9,adult Code(s): Z68.39 - BODY MASS INDEX (BMI) 39.0-39.9, ADULT (2) Leg edema Code(s): R60.0 - LOCALIZED EDEMA (3) SOB (shortness of breath) Code(s): R06.02 - SHORTNESS OF BREATH (4) HTN (hypertension) Code(s): I10 - ESSENTIAL (PRIMARY) HYPERTENSION (5) Hx of heart artery stent Code(s): Z95.5 - PRESENCE OF CORONARY ANGIOPLASTY IMPLANT AND GRAFT (6) ASHD (arteriosclerotic heart disease) Code(s): I25.10 - ATHSCL HEART DISEASE OF [place] CORONARY ARTERY W/O ANG PCTRS (7) COPD (chronic obstructive pulmonary disease) Code(s): J44.9 - CHRONIC OBSTRUCTIVE PULMONARY DISEASE, UNSPECIFIED (8) Diabetes mellitus Code(s): E11.9 - TYPE 2 DIABETES MELLITUS WITHOUT COMPLICATIONS Qualifiers: Diabetes mellitus type: type 2 (9) GRACIE (obstructive sleep apnea) Code(s): G47.33 - OBSTRUCTIVE SLEEP APNEA (ADULT) (PEDIATRIC) (10) Tracheostomy in place Code(s): Z98.89 - OTHER SPECIFIED POSTPROCEDURAL STATES * DO NOT USE * (11) Obesity Code(s): E66.9 - OBESITY, UNSPECIFIED (12) Asthma Code(s): J45.909 - UNSPECIFIED ASTHMA, UNCOMPLICATED Qualifiers: Asthma severity: unspecified severity Assessment/Plan Problem List - Problems (1) COPD exacerbation Code(s): J44.1 - CHRONIC OBSTRUCTIVE PULMONARY DISEASE W (ACUTE) EXACERBATION Assessment/Plan Acute COPD Exacerbation improving Acute on Chronic Diastolic Heart Failure Chronic Hypoxic Respiratory Failure Obstructive Sleep Apnea s/p Tracheostomy CAD s/p CABG HTN DM Hyperlipidemia Spinal Stenosis Chronic Pain Syndrome Opiate Dependence Acute on chronic kidney disease - prednisone - inhaled bronchodilators standing and PRN - O2 to keep Spo2 >90% - monitor urine output, creatinine - uncap tracheostomy when sleeping - dilaudid 4mg for breakthrough pain - DVT prophylaxis DR VANESSA
--- NOTE | 2019-03-13 11:56 | PN ---
Progress Note, Physician - Current Medication List Current Medications: Active Medications Al Hydroxide/Mg Hydroxide (Mylanta Suspension -) 30 ml PO Q6H PRN PRN Reason: DYSPEPSIA Albuterol Sulfate (Ventolin 0.083% Nebulizer Soln -) 1 amp NEB Q6H PRN PRN Reason: SHORT OF BREATH/WHEEZING Last Admin: 03/12/19 23:41 Dose: 1 amp Amitriptyline HCl (Elavil -) 75 mg PO HS [facility] Last Admin: 03/12/19 21:40 Dose: 75 mg Arformoterol Tartrate (Brovana (Restricted To Pulmonology/Resp) -) 1 amp NEB RBID [facility] Last Admin: 03/13/19 07:29 Dose: 1 amp Aspirin (Ecotrin -) 81 mg PO DAILY [facility] Last Admin: 03/13/19 10:33 Dose: 81 mg Clopidogrel Bisulfate (Plavix -) 75 mg PO DAILY [facility] Last Admin: 03/13/19 10:27 Dose: 75 mg Ezetimibe (Zetia -) 10 mg PO HS [facility] Last Admin: 03/12/19 21:40 Dose: 10 mg Finasteride (Proscar -) 5 mg PO DAILY [facility] Last Admin: 03/13/19 10:32 Dose: 5 mg Furosemide (Lasix Injection -) 40 mg IVPUSH DAILY [facility] Last Admin: 03/13/19 10:28 Dose: 40 mg Gabapentin (Neurontin -) 800 mg PO TID [facility] Last Admin: 03/13/19 05:28 Dose: 800 mg Heparin Sodium (Porcine) (Heparin -) 5,000 unit SQ TID [facility] Last Admin: 03/13/19 05:28 Dose: 5,000 unit Hydralazine HCl (Apresoline -) 50 mg PO BID [facility] Last Admin: 03/13/19 10:32 Dose: 50 mg Hydromorphone HCl (Dilaudid Vial -) 2 mg IM Q4H PRN PRN Reason: PAIN LEVEL 6-10 Last Admin: 03/13/19 05:49 Dose: 2 mg Insulin Aspart (Novolog Vial Sliding Scale -) 1 vial SQ [facility]; Protocol Last Admin: 03/13/19 11:42 Dose: Not Given Isosorbide Mononitrate (Imdur -) 30 mg PO DAILY [facility] Last Admin: 03/13/19 10:33 Dose: 30 mg Montelukast Sodium (Singulair -) 10 mg PO HS [facility] Last Admin: 03/12/19 21:40 Dose: 10 mg Nifedipine (Procardia Xl -) 30 mg PO DAILY [facility] Last Admin: 03/13/19 10:28 Dose: 30 mg Nystatin (Nystatin Oral Suspension -) 500,000 units PO Q6HPO [facility] Last Admin: 03/13/19 05:28 Dose: 500,000 units Oxycodone HCl (Roxicodone -) 10 mg PO BID [facility] Last Admin: 03/13/19 10:29 Dose: 10 mg Pancrelipase (Creon Dr 36,000 Units Capsule) 1 cap PO TIDCM [facility] Last Admin: 03/13/19 08:15 Dose: 1 cap Pantoprazole Sodium (Protonix -) 20 mg PO DAILY [facility] Last Admin: 03/13/19 10:31 Dose: 20 mg Polyethylene Glycol (Miralax (For Daily Use) -) 17 gm PO BID [facility] Last Admin: 03/13/19 10:32 Dose: Not Given Prednisone (Deltasone -) 20 mg PO BID [facility] Last Admin: 03/13/19 10:27 Dose: 20 mg Rosuvastatin Calcium (Crestor -) 20 mg PO [facility] Last Admin: 03/12/19 21:39 Dose: 20 mg Senna/Docusate Sodium (Pericolace -) 1 tablet PO DAILY [facility] Last Admin: 03/13/19 10:32 Dose: 1 tablet Tamsulosin HCl (Flomax -) 0.4 mg PO DAILY@0830 [facility] Last Admin: 03/13/19 08:37 Dose: 0.4 mg Tiotropium [place] (Spiriva Respimat) 2 puff IH DAILY [facility] Last Admin: 03/13/19 10:33 Dose: 2 puff - Objective Vital Signs: Vital Signs Temperature 98.5 F 03/13/19 05:49 Pulse Rate 93 H 03/13/19 05:49 Respiratory Rate 18 03/13/19 05:49 Blood Pressure 106/80 03/13/19 05:49 O2 Sat by Pulse Oximetry (%) 100 03/12/19 20:48 Cardiovascular: Yes: S1, S2 Respiratory: Yes: Regular, CTA Bilaterally Gastrointestinal: Yes: Normal Bowel Sounds, Soft Labs: CBC, BMP 03/13/19 06:15 03/13/19 06:15 Assessment/Plan - Problems (1) BMI 39.0-39.9,adult Assessment/Plan: -Dietary consult Code(s): Z68.39 - BODY MASS INDEX (BMI) 39.0-39.9, ADULT (2) COPD exacerbation Assessment/Plan: -Pulm on board -O2 via NC -keep SpO2 >90% -Symbicort, Brovanna, Spiriva -bronchodilators -IV Medrol--po Code(s): J44.1 - CHRONIC OBSTRUCTIVE PULMONARY DISEASE W (ACUTE) EXACERBATION (3) Diastolic CHF Assessment/Plan: -Cardiology on board -1L fluid restriction -daily weights -strict I&Os -IV LASIX--po Code(s): I50.30 - UNSPECIFIED DIASTOLIC (CONGESTIVE) HEART FAILURE (4) Leg edema Assessment/Plan: -keep legs elevated -IV LASIX--po Code(s): R60.0 - LOCALIZED EDEMA (5) Renal insufficiency Assessment/Plan: -Renal on board -BUN/Cr 49.7/1.9 -continue to monitor renal function Code(s): N28.9 - DISORDER OF KIDNEY AND URETER, UNSPECIFIED (6) HTN (hypertension) Assessment/Plan: -Norvasc, Chlorthalidone -Hydralazine BID and Imdur added to regimen -low Na diet Code(s): I10 - ESSENTIAL (PRIMARY) HYPERTENSION (7) Hyperlipidemia Assessment/Plan: -Zetia, Crestor Code(s): E78.5 - HYPERLIPIDEMIA, UNSPECIFIED (8) Diabetes mellitus Assessment/Plan: -BGM ACHS -Insulin pump -ISS -diabetic diet Code(s): E11.9 - TYPE 2 DIABETES MELLITUS WITHOUT COMPLICATIONS Qualifiers: Diabetes mellitus type: type 2 (9) Intractable low back pain Assessment/Plan: -Pain consult -Dilaudid, Nucynta, Percocet -Neurosurgery consult Code(s): M54.5 - LOW BACK PAIN (10) Abdominal pain Assessment/Plan: -Abdominal US shows fatty enlarged liver, possible gallstone -GI on board Code(s): R10.9 - UNSPECIFIED ABDOMINAL PAIN (11) Hyperkalemia Assessment/Plan: -K 4.4 -resolved -renal on board Code(s): E87.5 - HYPERKALEMIA
--- NOTE | 2019-03-13 12:52 | PN ---
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 chf Current Medications Al Hydroxide/Mg Hydroxide (Mylanta Suspension -) 30 ml PO Q6H PRN PRN Reason: DYSPEPSIA Albuterol Sulfate (Ventolin 0.083% Nebulizer Soln -) 1 amp NEB Q6H PRN PRN Reason: SHORT OF BREATH/WHEEZING Last Admin: 03/12/19 23:41 Dose: 1 amp Amitriptyline HCl (Elavil -) 75 mg PO [facility] Last Admin: 03/12/19 21:40 Dose: 75 mg Arformoterol Tartrate (Brovana (Restricted To Pulmonology/Resp) -) 1 amp NEB RBID [facility] Last Admin: 03/13/19 07:29 Dose: 1 amp Aspirin (Ecotrin -) 81 mg PO DAILY [facility] Last Admin: 03/13/19 10:33 Dose: 81 mg Clopidogrel Bisulfate (Plavix -) 75 mg PO DAILY [facility] Last Admin: 03/13/19 10:27 Dose: 75 mg Ezetimibe (Zetia -) 10 mg PO [facility] Last Admin: 03/12/19 21:40 Dose: 10 mg Finasteride (Proscar -) 5 mg PO DAILY [facility] Last Admin: 03/13/19 10:32 Dose: 5 mg Gabapentin (Neurontin -) 800 mg PO TID [facility] Last Admin: 03/13/19 05:28 Dose: 800 mg Heparin Sodium (Porcine) (Heparin -) 5,000 unit SQ TID [facility] Last Admin: 03/13/19 05:28 Dose: 5,000 unit Hydralazine HCl (Apresoline -) 50 mg PO BID [facility] Last Admin: 03/13/19 10:32 Dose: 50 mg Hydromorphone HCl (Dilaudid Vial -) 2 mg IM Q4H PRN PRN Reason: PAIN LEVEL 6-10 Last Admin: 03/13/19 05:49 Dose: 2 mg Insulin Aspart (Novolog Vial Sliding Scale -) 1 vial SQ [facility]; Protocol Last Admin: 03/13/19 11:42 Dose: Not Given Isosorbide Mononitrate (Imdur -) 30 mg PO DAILY [facility] Last Admin: 03/13/19 10:33 Dose: 30 mg Montelukast Sodium (Singulair -) 10 mg PO [facility] Last Admin: 03/12/19 21:40 Dose: 10 mg Nifedipine (Procardia Xl -) 30 mg PO DAILY [facility] Last Admin: 03/13/19 10:28 Dose: 30 mg Nystatin (Nystatin Oral Suspension -) 500,000 units PO Q6HPO [facility] Last Admin: 03/13/19 05:28 Dose: 500,000 units Oxycodone HCl (Roxicodone -) 10 mg PO BID [facility] Last Admin: 03/13/19 10:29 Dose: 10 mg Pancrelipase (Creon Dr 36,000 Units Capsule) 1 cap PO TIDCM [facility] Last Admin: 03/13/19 08:15 Dose: 1 cap Pantoprazole Sodium (Protonix -) 20 mg PO DAILY [facility] Last Admin: 03/13/19 10:31 Dose: 20 mg Polyethylene Glycol (Miralax (For Daily Use) -) 17 gm PO BID [facility] Last Admin: 03/13/19 10:32 Dose: Not Given Prednisone (Deltasone -) 20 mg PO BID [facility] Last Admin: 03/13/19 10:27 Dose: 20 mg Rosuvastatin Calcium (Crestor -) 20 mg PO HS [facility] Last Admin: 03/12/19 21:39 Dose: 20 mg Senna/Docusate Sodium (Pericolace -) 1 tablet PO DAILY [facility] Last Admin: 03/13/19 10:32 Dose: 1 tablet Tamsulosin HCl (Flomax -) 0.4 mg PO DAILY@0830 [facility] Last Admin: 03/13/19 08:37 Dose: 0.4 mg Tiotropium [place] (Spiriva Respimat) 2 puff IH DAILY [facility] Last Admin: 03/13/19 10:33 Dose: 2 puff Torsemide (Demadex -) 40 mg PO DAILY [facility] Last Vital Signs Temp Pulse Resp BP Pulse Ox 98.5 F 93 H 18 106/80 100 03/13/19 05:49 03/13/19 05:49 03/13/19 05:49 03/13/19 05:49 03/12/19 20:48 Lungs clear heart reg abd soft exr min edema CBC, BMP 03/13/19 06:15 03/13/19 06:15 CBC, BMP 03/12/19 07:40 03/12/19 07:40 IMP -increased azotemia again less edema in lower ext advised to increase fluid intake orally and avoid high salt intake copd chf Plan- continue to provide oral fluids monitor weights CMP in am
--- NOTE | 2019-03-13 15:09 | PN ---
Progress Note, Physician History of Present Illness: 63 year old black man with a significant past medical history of CAD s/p [place], stents x6 (most recently 12/2015), CABG, HTN, diastolic CHF, HLD, Chronic Pancreatitis, Chronic Back pain, SBO, Incarcerated Hernia s/p repair x2 (September 2017), H.Pylori, BPH, COPD, Bronchial Asthma, Tracheostomy in place (unplugs when sleeping for GRACIE),and anxiety, who presents with worsening shortness of breath for 2-3 weeks, 1 week of productive cough of yellow phlegm and 2-3 days of chest pain and bilateral leg swelling. He reports his chest pain is L sided pressure like 5-6/10 intermittent radiating to the side and back. He admits to lightheadedness but denies nausea or diaphoresis. He staties that he has taken prednisone 60mg everday for 3 days and doubled his lasix to 80mg a day for 4 days. He reports his symptoms feel like a CHF exacerbation. He took albuterol and breathing treatment prior to arrival. He has no other complaints at bedside. As discussed with his yield analyst, Dr. Bola Elaine, today, he has had multiple admissions for chest pain since the last coronary stent; these have been negative for [place]. (07/2016 dobutamine stress MIBI at [facility] : small, mild periinfarct inferior wall ischemia; pt may have had a more recent stress MIBI or angiogram as an outpatient). - Current Medication List Current Medications: Active Medications Al Hydroxide/Mg Hydroxide (Mylanta Suspension -) 30 ml PO Q6H PRN PRN Reason: DYSPEPSIA Albuterol Sulfate (Ventolin 0.083% Nebulizer Soln -) 1 amp NEB Q6H PRN PRN Reason: SHORT OF BREATH/WHEEZING Last Admin: 03/12/19 23:41 Dose: 1 amp Amitriptyline HCl (Elavil -) 75 mg PO HS [facility] Last Admin: 03/12/19 21:40 Dose: 75 mg Arformoterol Tartrate (Brovana (Restricted To Pulmonology/Resp) -) 1 amp NEB RBID [facility] Last Admin: 03/13/19 07:29 Dose: 1 amp Aspirin (Ecotrin -) 81 mg PO DAILY [facility] Last Admin: 03/13/19 10:33 Dose: 81 mg Clopidogrel Bisulfate (Plavix -) 75 mg PO DAILY [facility] Last Admin: 03/13/19 10:27 Dose: 75 mg Ezetimibe (Zetia -) 10 mg PO HS [facility] Last Admin: 03/12/19 21:40 Dose: 10 mg Finasteride (Proscar -) 5 mg PO DAILY [facility] Last Admin: 03/13/19 10:32 Dose: 5 mg Gabapentin (Neurontin -) 800 mg PO TID [facility] Last Admin: 03/13/19 14:32 Dose: 800 mg Heparin Sodium (Porcine) (Heparin -) 5,000 unit SQ TID [facility] Last Admin: 03/13/19 14:29 Dose: 5,000 unit Hydralazine HCl (Apresoline -) 50 mg PO BID [facility] Last Admin: 03/13/19 10:32 Dose: 50 mg Hydromorphone HCl (Dilaudid Vial -) 2 mg IM Q4H PRN PRN Reason: PAIN LEVEL 6-10 Last Admin: 03/13/19 14:42 Dose: 2 mg Insulin Aspart (Novolog Vial Sliding Scale -) 1 vial SQ [facility]; Protocol Last Admin: 03/13/19 11:42 Dose: Not Given Isosorbide Mononitrate (Imdur -) 30 mg PO DAILY [facility] Last Admin: 03/13/19 10:33 Dose: 30 mg Montelukast Sodium (Singulair -) 10 mg PO HS [facility] Last Admin: 03/12/19 21:40 Dose: 10 mg Nifedipine (Procardia Xl -) 30 mg PO DAILY [facility] Last Admin: 03/13/19 10:28 Dose: 30 mg Nystatin (Nystatin Oral Suspension -) 500,000 units PO Q6HPO [facility] Last Admin: 03/13/19 13:05 Dose: 500,000 units Oxycodone HCl (Roxicodone -) 10 mg PO BID [facility] Last Admin: 03/13/19 10:29 Dose: 10 mg Pancrelipase (Creon Dr 36,000 Units Capsule) 1 cap PO TIDCM [facility] Last Admin: 03/13/19 13:30 Dose: 1 cap Pantoprazole Sodium (Protonix -) 20 mg PO DAILY [facility] Last Admin: 03/13/19 10:31 Dose: 20 mg Polyethylene Glycol (Miralax (For Daily Use) -) 17 gm PO BID [facility] Last Admin: 03/13/19 10:32 Dose: Not Given Prednisone (Deltasone -) 20 mg PO BID [facility] Last Admin: 03/13/19 10:27 Dose: 20 mg Rosuvastatin Calcium (Crestor -) 20 mg PO HS [facility] Last Admin: 03/12/19 21:39 Dose: 20 mg Senna/Docusate Sodium (Pericolace -) 1 tablet PO DAILY [facility] Last Admin: 03/13/19 10:32 Dose: 1 tablet Tamsulosin HCl (Flomax -) 0.4 mg PO DAILY@0830 [facility] Last Admin: 03/13/19 08:37 Dose: 0.4 mg Tiotropium [place] (Spiriva Respimat) 2 puff IH DAILY [facility] Last Admin: 03/13/19 10:33 Dose: 2 puff Torsemide (Demadex -) 40 mg PO DAILY [facility] - Objective Vital Signs: Vital Signs Temperature 98.5 F 03/13/19 05:49 Pulse Rate 93 H 03/13/19 05:49 Respiratory Rate 18 03/13/19 05:49 Blood Pressure 106/80 03/13/19 05:49 O2 Sat by Pulse Oximetry (%) 100 03/12/19 20:48 Eyes: Yes: WNL, Conjunctiva Clear, EOM Intact HENT: Yes: WNL, Atraumatic, Normocephalic Neck: Yes: WNL, Supple, Trachea Midline Cardiovascular: Yes: WNL, Regular Rate and Rhythm Respiratory: Yes: WNL, Regular, CTA Bilaterally Gastrointestinal: Yes: WNL, Normal Bowel Sounds Genitourinary: Yes: WNL Musculoskeletal: Yes: WNL Extremities: Yes: WNL Edema: Yes Integumentary: Yes: WNL Neurological: Yes: WNL, Alert, Oriented ...Motor Strength: WNL Psychiatric: Yes: WNL Labs: CBC, BMP 03/13/19 06:15 03/13/19 06:15 Assessment/Plan - Problems (1) BMI 39.0-39.9,adult Assessment/Plan: The importance of weight loss has been discussed multiple times this admission. Now, with his at beside and encouraging him, he says he will continue to see the certified adapted physical educator here, and will set a goal for weight loss. Code(s): Z68.39 - BODY MASS INDEX (BMI) 39.0-39.9, ADULT (2) Leg edema Code(s): R60.0 - LOCALIZED EDEMA (3) Diastolic CHF Assessment/Plan: On amlodipine; added hydralazine + Imdur for HTN. F/u BUN/Cr, electrolytes, daily weight, Is and Os. Code(s): I50.30 - UNSPECIFIED DIASTOLIC (CONGESTIVE) HEART FAILURE (4) Anxiety Code(s): F41.9 - ANXIETY DISORDER, UNSPECIFIED (5) Opiate dependence Assessment/Plan: Will require long-term help, ideally, for pain management, psychological counseling, and gradual weaning from opiates. This was discussed today with his present. Code(s): F11.20 - OPIOID DEPENDENCE, UNCOMPLICATED (6) Renal insufficiency Assessment/Plan: avoid overzealous diuresis. F/u BUN/Cr (Cr 1.1 on 07/2018; on this admission, it was initially 1.3; now 2.1- ->1.7)), Is and Os, daily weight electrolytes (off chlorthalidone, furosemide, ACEI) Not in acute CHF. f/u with search marketing analyst. Code(s): N28.9 - DISORDER OF KIDNEY AND URETER, UNSPECIFIED (7) HTN (hypertension) Assessment/Plan: On amllodipine. Hydralazine + Imdur added due to increasing BP, with improved readings during the day. F/u, and increase doses as needed. Code(s): I10 - ESSENTIAL (PRIMARY) HYPERTENSION (8) Hyperlipidemia Assessment/Plan: Diet control; weight loss; exercise. statin; keep LDL < 70 mg/dl. (as noted by GI pt may benefit from stopping Zetia in regards to elevated LFTs; follow up lipids after pt compliant to Crestor alone for several weeks). The importance of weight loss, proper food choices, and exercise in aiding weight loss and lipid control was discussed. Pt would benefit from nutritioist f /u; he agrees to do so, and his , present today, is in agreement. Code(s): E78.5 - HYPERLIPIDEMIA, UNSPECIFIED (9) Hx of heart artery stent Assessment/Plan: Most recently 2015. On ASA (change to non-enteric coated) and clopidogrel. Code(s): Z95.5 - PRESENCE OF CORONARY ANGIOPLASTY IMPLANT AND GRAFT (10) COPD exacerbation Assessment/Plan: Taper off IV steroids per speedboat driver Code(s): J44.1 - CHRONIC OBSTRUCTIVE PULMONARY DISEASE W (ACUTE) EXACERBATION (11) Atypical chest pain Assessment/Plan: Sharp chest pains exacerbated by deep inspiration. TNI 0.02 x 3. EKG: normal sinus rhythm; normal study. Discussed with pt's private yield analyst (Dr. Elaine) on admission. Records regarding most recent coronary artery workup (has apparently not required coronary stent since 2016); stress MIBI 2017 showed mild ischemia. On ASA and clopidogrel. Statin (though on Zetia, spotty compliance to statin may explain elevated LDL on admission)..
[2019-03-13] MEDS: AMITRIPTYLINE HCL 75 MG TABLET PO SCH (22:02)
[2019-03-13] MEDS: MONTELUKAST NA 10 MG TABLET PO SCH (22:03)
[2019-03-13] MEDS: EZETIMIBE 10 MG TABLET (FP) PO SCH (22:05)
[2019-03-13] MEDS: ROSUVASTATIN CA 20 MG TABLET (FP) PO SCH (22:07)
[2019-03-14] MEDS: NYSTATIN 500,000 UNITS/5 ML SUSPENSION PO SCH ×4 (00:08→17:29)
[2019-03-14] MEDS: HYDROmorphone HCl 2 MG/ML VIAL IM PRN ×5 (03:28→20:06)
[2019-03-14] MEDS: GABAPENTIN 400 MG CAPSULE (FP) PO SCH ×3 (06:07→21:59)
[2019-03-14] MEDS: HEPARIN NA (PORCINE) 5,000 UNITS/ML 1ML VIAL SQ SCH ×3 (06:07→21:59)
[2019-03-14] MEDS: INSULIN SLIDING SCALE (NOVOLOG) 1 VIAL SQ SCH ×4 (06:08→22:00)
[2019-03-14] MEDS: ARFORMOTEROL TARTRATE 15 MCG/2 ML VIAL NEB SCH ×2 (07:45→19:53)
[2019-03-14 07:51] LABS: BASO % 0.2 % (0-2.0); HEMATOCRIT 36.9 % (35.4-49); LYMPH % 17.6 % (8-40); MCHC 32.5 g/dl (32.0-35.9); MEAN PLT VOLUME 7.8 fl (7.5-11.1); MONO % 6.2 % (3.8-10.2); PLATELET COUNT 284 K/MM3 (134-434); RBC 4.44 M/mm3 (4.00-5.60); RDW 15.4 % (11.9-15.9); WHITE BLOOD COUNT 15.2 K/mm3 (4.0-10.0)
[2019-03-14 08:03] LABS: ALBUMIN 3.4 g/dl (3.4-5.0); BILIRUBIN,TOTAL 0.4 mg/dL (0.2-1); CALCIUM 9.8 mg/dL (8.5-10.1); POTASSIUM 4.9 mmol/L (3.5-5.1)
[2019-03-14] MEDS: ISOSORBIDE MONONITRATE 30 MG TAB.SR.24H (FP) PO SCH (09:00)
[2019-03-14] MEDS: predniSONE 20 MG TABLET (UD) PO SCH ×2 (09:00→21:59)
[2019-03-14] MEDS: LIPASE/PROTEASE/AMYLASE 36,000 UNIT CAPSULE PO SCH ×3 (09:00→17:29)
[2019-03-14] MEDS: FINASTERIDE 5 MG TABLET (FP) PO SCH (09:00)
[2019-03-14] MEDS: oxyCODONE HCL 5 MG TABLET PO SCH ×2 (09:01→22:00)
[2019-03-14] MEDS: PANTOPRAZOLE 20 MG TABLET (FP) PO SCH (09:01)
[2019-03-14] MEDS: NIFEdipine E.R. 30 MG TABLET (FP) PO SCH (09:02)
[2019-03-14] MEDS: hydrALAZINE HCL 25 MG TABLET (FP) PO SCH ×2 (09:03→21:59)
[2019-03-14] MEDS: CLOPIDOGREL BISULFATE 75 MG TABLET (FP) PO SCH (09:03)
[2019-03-14] MEDS: SENNOSIDES/DOCUSATE COMBO (SENNA PLUS) TABLET (UD) PO SCH (09:04)
[2019-03-14] MEDS: POLYETHYLENE GLYCOL 3350 119 GM BTL PO SCH ×2 (09:04→21:59)
[2019-03-14] MEDS: ASPIRIN COATED 81 MG TABLET.EC PO SCH (09:04)
--- NOTE | 2019-03-14 09:06 | PN ---
Progress Note (short form) - Note Progress Note: Transaminases continue to be mildly elevated. Medication elimination as feasible. ? need for Zetia. D/C if feasible Discontinue nystatin solution ? compionent of rhabdomyolysis given rising CPK noted earlier. Ordered CPK and f /u of elevated CPK per PMD Other medication eliminations as feasible Problem List - Problems (1) Elevated LFTs Code(s): R94.5 - ABNORMAL RESULTS OF LIVER FUNCTION STUDIES
[2019-03-14] MEDS: TAMSULOSIN HCL 0.4 MG CAP PO SCH (09:08)
[2019-03-14] MEDS: TORSEMIDE 20 MG TABLET (FP) PO SCH (09:08)
[2019-03-14] MEDS: TIOTROPIUM BROMIDE 2.5 MCG (SPIRIVA) RESPIMAT INHALER IH SCH (11:26)
[2019-03-14 11:53] LABS: ANISOCYTOSIS 0; MACROCYTOSIS 0; PLATELET ESTIMATE NORMAL
--- NOTE | 2019-03-14 12:29 | PN ---
Progress Note (short form) - Note Progress Note: PULMONARY Breathing continues to slowly improve. Still with cough and wheezing. No fevers or chills. Vital Signs Period Temp Pulse Resp BP Sys/Gates Pulse Ox Last 24 Hr 97.5 F-98.6 F 82-109 18-20 141-161/85-96 98-98 Gen: NAD at rest Heart: RRR Lung: scattered rhonchi Abd: soft, nontender Ext: + edema CBC, BMP 03/14/19 06:08 03/14/19 06:08 Active Medications Al Hydroxide/Mg Hydroxide (Mylanta Suspension -) 30 ml PO Q6H PRN PRN Reason: DYSPEPSIA Albuterol Sulfate (Ventolin 0.083% Nebulizer Soln -) 1 amp NEB Q6H PRN PRN Reason: SHORT OF BREATH/WHEEZING Last Admin: 03/12/19 23:41 Dose: 1 amp Amitriptyline HCl (Elavil -) [address] [facility] Last Admin: 03/13/19 22:02 Dose: 75 mg Arformoterol Tartrate (Brovana (Restricted To Pulmonology/Resp) -) 1 amp NEB RBID [facility] Last Admin: 03/14/19 07:45 Dose: 1 amp Aspirin (Ecotrin -) 81 mg PO DAILY [facility] Last Admin: 03/14/19 09:04 Dose: 81 mg Clopidogrel Bisulfate (Plavix -) 75 mg PO DAILY [facility] Last Admin: 03/14/19 09:03 Dose: 75 mg Ezetimibe (Zetia -) [address] [facility] Last Admin: 03/13/19 22:05 Dose: 10 mg Finasteride (Proscar -) 5 mg PO DAILY [facility] Last Admin: 03/14/19 09:00 Dose: 5 mg Gabapentin (Neurontin -) 800 mg PO TID [facility] Last Admin: 03/14/19 06:07 Dose: 800 mg Heparin Sodium (Porcine) (Heparin -) 5,000 unit SQ TID [facility] Last Admin: 03/14/19 06:07 Dose: 5,000 unit Hydralazine HCl (Apresoline -) 50 mg PO BID [facility] Last Admin: 03/14/19 09:03 Dose: 50 mg Hydromorphone HCl (Dilaudid Vial -) 2 mg IM Q4H PRN PRN Reason: PAIN LEVEL 6-10 Last Admin: 03/14/19 11:48 Dose: 2 mg Insulin Aspart (Novolog Vial Sliding Scale -) 1 vial SQ ACHS [facility]; Protocol Last Admin: 03/14/19 11:26 Dose: Not Given Isosorbide Mononitrate (Imdur -) 30 mg PO DAILY [facility] Last Admin: 03/14/19 09:00 Dose: 30 mg Montelukast Sodium (Singulair -) 10 mg PO HS [facility] Last Admin: 03/13/19 22:03 Dose: 10 mg Nifedipine (Procardia Xl -) 30 mg PO DAILY [facility] Last Admin: 03/14/19 09:02 Dose: 30 mg Nystatin (Nystatin Oral Suspension -) 500,000 units PO Q6HPO [facility] Last Admin: 03/14/19 11:47 Dose: 500,000 units Oxycodone HCl (Roxicodone -) 10 mg PO BID [facility] Last Admin: 03/14/19 09:01 Dose: 10 mg Pancrelipase (Creon Dr 36,000 Units Capsule) 1 cap PO TIDCM [facility] Last Admin: 03/14/19 11:47 Dose: 1 cap Pantoprazole Sodium (Protonix -) 20 mg PO DAILY [facility] Last Admin: 03/14/19 09:01 Dose: 20 mg Polyethylene Glycol (Miralax (For Daily Use) -) 17 gm PO BID [facility] Last Admin: 03/14/19 09:04 Dose: Not Given Prednisone (Deltasone -) 20 mg PO BID [facility] Last Admin: 03/14/19 09:00 Dose: 20 mg Rosuvastatin Calcium (Crestor -) [address] [facility] Last Admin: 03/13/19 22:07 Dose: 20 mg Senna/Docusate Sodium (Pericolace -) 1 tablet PO DAILY [facility] Last Admin: 03/14/19 09:04 Dose: 1 tablet Tamsulosin HCl (Flomax -) 0.4 mg PO DAILY@0830 [facility] Last Admin: 03/14/19 09:08 Dose: 0.4 mg Tiotropium [place] (Spiriva Respimat) 2 puff IH DAILY [facility] Last Admin: 03/14/19 11:26 Dose: 2 puff Torsemide (Demadex -) 40 mg PO DAILY [facility] Last Admin: 03/14/19 09:08 Dose: 40 mg A/P Acute COPD Exacerbation improving Acute on Chronic Diastolic Heart Failure Chronic Hypoxic Respiratory Failure Obstructive Sleep Apnea s/p Tracheostomy CAD s/p CABG HTN DM Hyperlipidemia Spinal Stenosis Chronic Pain Syndrome Opiate Dependence Acute on chronic kidney disease - slow prednisone taper - inhaled bronchodilators standing and PRN - O2 to keep Spo2 >90% - glucose control while on systemic steroids - monitor urine output, creatinine - uncap tracheostomy when sleeping - pain control - DVT prophylaxis Problem List - Problems (1) COPD exacerbation Code(s): J44.1 - CHRONIC OBSTRUCTIVE PULMONARY DISEASE W (ACUTE) EXACERBATION
--- NOTE | 2019-03-14 12:51 | PN ---
Progress Note (short form) - Note Progress Note: Renal follow up for LOVE on CKD Pt seen and examined at the bedside reports feeling like he is making less urine denies overt sob tolerating oral diet drinking a lot of water no chest pain, abd pain, fever or chills Vital Signs Temperature 98 F 03/14/19 07:46 Pulse Rate 109 H 03/14/19 07:46 Respiratory Rate 20 03/14/19 09:00 Blood Pressure 161/92 03/14/19 07:46 O2 Sat by Pulse Oximetry (%) 98 03/14/19 09:00 Intake & Output 03/11/19 03/12/19 03/13/19 03/14/19 23:59 23:59 23:59 23:59 Intake Total 1080 1400 1100 930 Balance 1080 1400 1100 930 Weight 134.263 kg 134.065 kg 134.433 kg 135.227 kg NAD RRR + wheezing, no rales obese, NT/ND abd trace LE edema CBC, BMP 03/14/19 06:08 03/14/19 06:08 Current Medications Al Hydroxide/Mg Hydroxide (Mylanta Suspension -) 30 ml PO Q6H PRN PRN Reason: DYSPEPSIA Albuterol Sulfate (Ventolin 0.083% Nebulizer Soln -) 1 amp NEB Q6H PRN PRN Reason: SHORT OF BREATH/WHEEZING Last Admin: 03/12/19 23:41 Dose: 1 amp Amitriptyline HCl (Elavil -) 75 mg PO HS [facility] Last Admin: 03/13/19 22:02 Dose: 75 mg Arformoterol Tartrate (Brovana (Restricted To Pulmonology/Resp) -) 1 amp NEB RBID [facility] Last Admin: 03/14/19 07:45 Dose: 1 amp Aspirin (Ecotrin -) 81 mg PO DAILY [facility] Last Admin: 03/14/19 09:04 Dose: 81 mg Clopidogrel Bisulfate (Plavix -) 75 mg PO DAILY [facility] Last Admin: 03/14/19 09:03 Dose: 75 mg Ezetimibe (Zetia -) 10 mg PO HS [facility] Last Admin: 03/13/19 22:05 Dose: 10 mg Finasteride (Proscar -) 5 mg PO DAILY [facility] Last Admin: 03/14/19 09:00 Dose: 5 mg Gabapentin (Neurontin -) 800 mg PO TID [facility] Last Admin: 03/14/19 06:07 Dose: 800 mg Heparin Sodium (Porcine) (Heparin -) 5,000 unit SQ TID [facility] Last Admin: 03/14/19 06:07 Dose: 5,000 unit Hydralazine HCl (Apresoline -) 50 mg PO BID [facility] Last Admin: 03/14/19 09:03 Dose: 50 mg Hydromorphone HCl (Dilaudid Vial -) 2 mg IM Q4H PRN PRN Reason: PAIN LEVEL 6-10 Last Admin: 03/14/19 11:48 Dose: 2 mg Insulin Aspart (Novolog Vial Sliding Scale -) 1 vial SQ ACHS [facility]; Protocol Last Admin: 03/14/19 11:26 Dose: Not Given Isosorbide Mononitrate (Imdur -) 30 mg PO DAILY [facility] Last Admin: 03/14/19 09:00 Dose: 30 mg Montelukast Sodium (Singulair -) 10 mg PO [facility] Last Admin: 03/13/19 22:03 Dose: 10 mg Nifedipine (Procardia Xl -) 30 mg PO DAILY [facility] Last Admin: 03/14/19 09:02 Dose: 30 mg Nystatin (Nystatin Oral Suspension -) 500,000 units PO Q6HPO [facility] Last Admin: 03/14/19 11:47 Dose: 500,000 units Oxycodone HCl (Roxicodone -) 10 mg PO BID [facility] Last Admin: 03/14/19 09:01 Dose: 10 mg Pancrelipase (Creon Dr 36,000 Units Capsule) 1 cap PO TIDCM [facility] Last Admin: 03/14/19 11:47 Dose: 1 cap Pantoprazole Sodium (Protonix -) 20 mg PO DAILY [facility] Last Admin: 03/14/19 09:01 Dose: 20 mg Polyethylene Glycol (Miralax (For Daily Use) -) 17 gm PO BID [facility] Last Admin: 03/14/19 09:04 Dose: Not Given Prednisone (Deltasone -) 20 mg PO BID [facility] Last Admin: 03/14/19 09:00 Dose: 20 mg Rosuvastatin Calcium (Crestor -) 20 mg PO HS [facility] Last Admin: 03/13/19 22:07 Dose: 20 mg Senna/Docusate Sodium (Pericolace -) 1 tablet PO DAILY [facility] Last Admin: 03/14/19 09:04 Dose: 1 tablet Tamsulosin HCl (Flomax -) 0.4 mg PO DAILY@0830 [facility] Last Admin: 03/14/19 09:08 Dose: 0.4 mg Tiotropium [place] (Spiriva Respimat) 2 puff IH DAILY [facility] Last Admin: 03/14/19 11:26 Dose: 2 puff Torsemide (Demadex -) 40 mg PO DAILY [facility] Last Admin: 03/14/19 09:08 Dose: 40 mg 63 year old gentleman with history of hypertension, DM, hyperlipidemia, GRACIE s/ p trach, CAD s/p CABG, CHF with diastolic dysfunction who presented with worsening SOB and admitted for CHF + COPD exacerbation with Cr of 2. 1. Acute kidney injury secondary renal hypoprofusion in setting of cardic dysfunction vs. intravascular volume depletion vs. ATN vs. AIN vs. outflow obstruction 2. CHF with diastolic dysfunction 3. COPD 4. Chronic GRACIE 5. CAD s/p CABG 6. DM 7. Hyperlipidemia Renal function stable, no overt electrolyte or acid base disturbance weights improved while on IV lasix indicating good response continue PO Torsemide 40mg daily, trend weights and BUN/Cr prednisone taper as per pulmonary Thank you Az Nelson DO
[2019-03-14] MEDS ORDERED: ALBUTEROL SO4 8 GM HFA INHALER IH PRN (13:04)
--- NOTE | 2019-03-14 15:33 | PN ---
Progress Note, Physician Chief Complaint: COPD Exacerbation Intractable lower back pain CHF History of Present Illness: Previous notes and events reviewed awake and alert NAD sts his breathing is improving BUN/Cr shwoing downtrend elevated CPK and LFTs - Current Medication List Current Medications: Active Medications Al Hydroxide/Mg Hydroxide (Mylanta Suspension -) 30 ml PO Q6H PRN PRN Reason: DYSPEPSIA Albuterol Sulfate (Ventolin 0.083% Nebulizer Soln -) 1 amp NEB Q6H PRN PRN Reason: SHORT OF BREATH/WHEEZING Last Admin: 03/12/19 23:41 Dose: 1 amp Albuterol Sulfate (Ventolin Hfa Inhaler -) 2 puff IH Q4H PRN PRN Reason: SHORT OF BREATH/WHEEZING Amitriptyline HCl (Elavil -) [address] [facility] Last Admin: 03/13/19 22:02 Dose: 75 mg Arformoterol Tartrate (Brovana (Restricted To Pulmonology/Resp) -) 1 amp NEB RBID [facility] Last Admin: 03/14/19 07:45 Dose: 1 amp Aspirin (Ecotrin -) 81 mg PO DAILY [facility] Last Admin: 03/14/19 09:04 Dose: 81 mg Clopidogrel Bisulfate (Plavix -) 75 mg PO DAILY [facility] Last Admin: 03/14/19 09:03 Dose: 75 mg Ezetimibe (Zetia -) [address] [facility] Last Admin: 03/13/19 22:05 Dose: 10 mg Finasteride (Proscar -) 5 mg PO DAILY [facility] Last Admin: 03/14/19 09:00 Dose: 5 mg Gabapentin (Neurontin -) 800 mg PO TID [facility] Last Admin: 03/14/19 14:36 Dose: 800 mg Heparin Sodium (Porcine) (Heparin -) 5,000 unit SQ TID [facility] Last Admin: 03/14/19 14:36 Dose: Not Given Hydralazine HCl (Apresoline -) 50 mg PO BID [facility] Last Admin: 03/14/19 09:03 Dose: 50 mg Hydromorphone HCl (Dilaudid Vial -) 2 mg IM Q4H PRN PRN Reason: PAIN LEVEL 6-10 Last Admin: 03/14/19 11:48 Dose: 2 mg Insulin Aspart (Novolog Vial Sliding Scale -) 1 vial SQ [facility]; Protocol Last Admin: 03/14/19 11:26 Dose: Not Given Isosorbide Mononitrate (Imdur -) 30 mg PO DAILY [facility] Last Admin: 03/14/19 09:00 Dose: 30 mg Montelukast Sodium (Singulair -) 10 mg PO HS [facility] Last Admin: 03/13/19 22:03 Dose: 10 mg Nifedipine (Procardia Xl -) 30 mg PO DAILY [facility] Last Admin: 03/14/19 09:02 Dose: 30 mg Nystatin (Nystatin Oral Suspension -) 500,000 units PO Q6HPO [facility] Last Admin: 03/14/19 11:47 Dose: 500,000 units Oxycodone HCl (Roxicodone -) 10 mg PO BID [facility] Last Admin: 03/14/19 09:01 Dose: 10 mg Pancrelipase (Creon Dr 36,000 Units Capsule) 1 cap PO TIDCM [facility] Last Admin: 03/14/19 11:47 Dose: 1 cap Pantoprazole Sodium (Protonix -) 20 mg PO DAILY [facility] Last Admin: 03/14/19 09:01 Dose: 20 mg Polyethylene Glycol (Miralax (For Daily Use) -) 17 gm PO BID [facility] Last Admin: 03/14/19 09:04 Dose: Not Given Prednisone (Deltasone -) 20 mg PO BID [facility] Last Admin: 03/14/19 09:00 Dose: 20 mg Rosuvastatin Calcium (Crestor -) 20 mg PO HS [facility] Last Admin: 03/13/19 22:07 Dose: 20 mg Senna/Docusate Sodium (Pericolace -) 1 tablet PO DAILY [facility] Last Admin: 03/14/19 09:04 Dose: 1 tablet Tamsulosin HCl (Flomax -) 0.4 mg PO DAILY@0830 [facility] Last Admin: 03/14/19 09:08 Dose: 0.4 mg Tiotropium [place] (Spiriva Respimat) 2 puff IH DAILY [facility] Last Admin: 03/14/19 11:26 Dose: 2 puff Torsemide (Demadex -) 40 mg PO DAILY [facility] Last Admin: 03/14/19 09:08 Dose: 40 mg - Objective Vital Signs: Vital Signs Temperature 97.2 F L 03/14/19 14:32 Pulse Rate 109 H 03/14/19 07:46 Respiratory Rate 20 03/14/19 09:00 Blood Pressure 115/55 L 09/03/19 14:32 O2 Sat by Pulse Oximetry (%) 98 03/14/19 09:00 Constitutional: Yes: No Distress, Calm, Obese Eyes: Yes: Conjunctiva Clear HENT: Yes: Atraumatic Neck: Yes: Other (trach) Cardiovascular: Yes: Regular Rate and Rhythm Respiratory: Yes: Regular, Wheezes Gastrointestinal: Yes: Normal Bowel Sounds, Soft, Abdomen, Obese Musculoskeletal: Yes: Muscle Weakness Extremities: Yes: WNL Edema: Yes Edema: LLE: 1+, RLE: 1+ Neurological: Yes: Alert, Oriented Psychiatric: Yes: Alert, Oriented Labs: CBC, BMP 03/14/19 06:08 03/14/19 06:08 Problem List - Problems (1) BMI 39.0-39.9,adult Assessment/Plan: -Dietary consult Code(s): Z68.39 - BODY MASS INDEX (BMI) 39.0-39.9, ADULT (2) COPD exacerbation Assessment/Plan: -Pulm on board -O2 via NC -keep SpO2 >90% -Symbicort, Brovanna, Spiriva -bronchodilators -IV Medrol Code(s): J44.1 - CHRONIC OBSTRUCTIVE PULMONARY DISEASE W (ACUTE) EXACERBATION (3) Diastolic CHF Assessment/Plan: -Cardiology on board -1L fluid restriction -daily weights -strict I&Os Code(s): I50.30 - UNSPECIFIED DIASTOLIC (CONGESTIVE) HEART FAILURE (4) Leg edema Assessment/Plan: -keep legs elevated -Torsemide Code(s): R60.0 - LOCALIZED EDEMA (5) Renal insufficiency Assessment/Plan: -Renal on board -BUN/Cr 53.0/2.0 -continue to monitor renal function Code(s): N28.9 - DISORDER OF KIDNEY AND URETER, UNSPECIFIED (6) HTN (hypertension) Assessment/Plan: -Norvasc, Chlorthalidone -Hydralazine BID and Imdur -low Na diet Code(s): I10 - ESSENTIAL (PRIMARY) HYPERTENSION (7) Hyperlipidemia Assessment/Plan: -Crestor -Zetia on hold due to elevated LFTs -Cardiology recommendation appreciated, will need lipid panel checked as outpatient while on Crestor alone Code(s): E78.5 - HYPERLIPIDEMIA, UNSPECIFIED (8) Diabetes mellitus Assessment/Plan: -BGM ACHS -Insulin pump -ISS -diabetic diet Code(s): E11.9 - TYPE 2 DIABETES MELLITUS WITHOUT COMPLICATIONS Qualifiers: Diabetes mellitus type: type 2 (9) Intractable low back pain Assessment/Plan: -Pain consult -Dilaudid, Nucynta, Percocet -Neurosurgery consult Code(s): M54.5 - LOW BACK PAIN (10) Abdominal pain Assessment/Plan: -Abdominal US shows fatty enlarged liver, possible gallstone -GI on board Code(s): R10.9 - UNSPECIFIED ABDOMINAL PAIN (11) Hyperkalemia Assessment/Plan: -K 4.9 -resolved -renal on board Code(s): E87.5 - HYPERKALEMIA (12) Rhabdomyolysis Assessment/Plan: -CPK 83522 -encourage hydration -monitor CPK level -Zetia discontinued -cardiology on board Code(s): M62.82 - RHABDOMYOLYSIS (13) Elevated LFTs Assessment/Plan: -AST 109, ALT 190 -GI on board -Zetia discontinued -will monitor LFTs for downtrend Code(s): R94.5 - ABNORMAL RESULTS OF LIVER FUNCTION STUDIES Assessment/Plan see problem list dvt ppx d/c home tomorrow if BUN/Cr showing downtrend
--- NOTE | 2019-03-14 16:04 | CONSULT ---
Consult Consult Specialty:: PM&R Dr Gotti for Dr Zamora - History of Present Illness Chief Complaint: diffuse body pains History of Present Illness: This is a 63 year old man with a medical history of anxiety, CAD s/p CABG, CO s/ p stents x6, HTN, HLD, COPD, bronchial asthma s/p tracheostomy, GRACIE, chronic pancreatitis, SBO, incarcerated hernia s/p repair x2 09/2017, DM on insulin pump with diabetic neuropathy, chronic back pain s/p multiple cervical and lumbar laminectomies, who was admitted to [facility] 03/01/19 with worsening SOB x2-3 weeks due to COPD exacerbation c/b CHF exacerbation. Cardiology and Pulmonary were consulted, and he was monitored on Telemetry. Renal was consulted as well for renal insufficiency. Neurosurgery was consulted for ongoing LBP s/p multiple surgeries. GI was consulted for enlarged fatty liver with possible gallstones. He was seen by PT, and on 03/09/19 he was Contact Guard in Transfers , and ambulated 80 feet x2 Contact Guard with Rolling Walker. Physiatry is being consulted for further recommendations. 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 Planned EMG/ NCVs studies and evaluation of motor weakness in process by treating neurologist Dr. Singh) Cardio/Vascular: Yes: CAD (Last stents placed x 2 last year per patient), CHF (s /p CO several years ago; s/p stenting. mild CHF in the past.), HTN, Hyperlipdemia, CO, Pulmonary Hypertension Pulmonary: Yes: Asthma, COPD, Sleep Apnea Gastrointestinal: Yes: Constipation, Pancreatitis (? history of chronic pancreatitis with episodes of acute pancreatitis), Other (FECAL INCONTINENCE SECONDARY TO OVERFLOW followed by Dr. Abdoulaye Wu, IPMN, PANCREATITIS . HAD EPISODE OF ISCHEMIC COLITIS LAST ADMISSION) Renal/: Yes: BPH Psych: Yes: Depression Musculoskeletal: Yes: Chronic low back pain (has back stimulator), Other ( CHRONIC NECK PAIN s/p Lumbar and Cervical fusion ) Endocrine: Yes: Diabetes Mellitus (has insulin pump) - Past Surgical History Past Surgical History: Yes: Breast Biopsy, Colonoscopy, Laminectomy, Stent (1 non eluting, 5 eluting) - Alcohol/Substance Use Hx Alcohol Use: No History of Substance Use: reports: None, Prescription (opiates for chronic pain post cervical spine surgery. 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 History of Recent Travel: No Home Medications - Allergies Allergies/Adverse Reactions: Allergies Allergy/AdvReac Type Severity Reaction Status Date / Time shellfish derived Allergy Severe Verified 03/01/19 18:27 Tetracyclines Allergy Severe Verified 03/01/19 18:27 - Home Medications Home Medications: Ambulatory Orders Albuterol Sulfate Inhaler - [Ventolin HFA Inhaler -] 1 - 2 inh PO Q4H PRN Arformoterol Tartrate [Brovana] 15 mcg IH [facility] 08/18/17 Aspirin [Aspirin EC] 81 mg PO DAILY 08/18/17 Clopidogrel Bisulfate [Plavix] 75 mg PO DAILY 08/18/17 Dexlansoprazole [Dexilant] 30 mg PO DAILY 08/18/17 Ezetimibe [Zetia -] 10 mg PO HS 08/18/17 Furosemide [Lasix] 40 mg PO DAILY 08/18/17 Insulin Pump Controller [Snap Insulin Pump Controller] 1 each ASDIR 08/18/17 Montelukast Sodium [Singulair] 10 mg PO DAILY 08/18/17 Tiotropium [place] [Spiriva] 1 puff IH DAILY 08/18/17 Finasteride [Proscar -] 5 mg PO DAILY tablet 09/20/17 Lipase/Protease/Amylase [Stacy Hackett 36,000 Units Capsule] 1 cap PO TIDCM capsule. 09/20/17 Ramipril [Altace] 10 mg PO DAILY capsule 09/20/17 Tamsulosin HCl [Flomax -] 0.4 mg PO DAILY@0830 cap.er.24h 09/20/17 Amitriptyline HCl [Elavil -] 75 mg PO DAILY 03/30/18 Gabapentin 800 mg PO TID 03/30/18 Albuterol 0.083% Nebulizer Elena [Ventolin 0.083% Nebulizer Soln -] 1 amp NEB Q8H PRN #30 amp 07/26/18 Mometasone Furoate [Asmanex 220Mcg -] 2 puff IH BID #2 inhaler 07/26/18 Mag Hydrox/Al Hydrox/Simeth [MAALOX *SUSPENSION* -] 30 ml PO Q6H PRN #1 bottle 09/27/18 Polyethylene Glycol 3350 [Miralax 119 gm Btl -] 17 gm PO BID #1 bottle 09/27/18 Sennosides/Docusate Sodium [Senna Laxative Tablet] 1 each PO DAILY #20 tablet Chlorthalidone [Hygroton -] 25 mg PO DAILY #60 tablet 10/14/18 Rosuvastatin [Crestor -] 20 mg PO HS #30 tablet 10/14/18 Amlodipine Besylate [Norvasc -] 10 mg PO DAILY 03/01/19 Arformoterol Tartrate [Brovana] 15 mcg IH DAILY 03/01/19 Budesonide/Formeterol Fumarate [SYMBICORT 160/4.5mcg -] 1 inh PO BID 03/01/19 Diazepam 5 mg PO PRN 03/01/19 HYDROmorphone [Dilaudid -] 4 mg PO Q4H 03/01/19 Lipase/Protease/Amylase [Creon Dr 36,000 Units Capsule] 1 each PO TID 03/01/19 Mesalamine [Pentasa] 500 mg PO TID 03/01/19 Ondansetron [Zofran -] 4 mg PO TID 03/01/19 Oxycodone HCl/Acetaminophen [Oxycodone-Acetaminophen 10-325] 1 each PO BID 03/01 Prednisone 60 mg PO DAILY 03/01/19 Tapentadol ER [Nucynta *ER*] 150 mg PO BID 03/01/19 Family Disease History - Family Disease History Family Disease History: Diabetes: Mother ( 58: diabetic complications), CA: Father ( 49: asbestosis), Respiratory: Brother (bronchial asthma, DVT), Other: Mother, Sister (BCA), Son (2, healthy), Daughter (1, healthy) Review of Systems Findings/Remarks: Denies changes in vision/ hearing/ mood, nausea, vomiting, dysuria Notes occasional fevers/ chills, CP, SOB, abdominal discomfort, diffuse neck/ back and extremity pain, stabbing/ paresthesias BLE Physical Exam Vital Signs: Vital Signs Temperature 97.2 F L 03/14/19 14:32 Pulse Rate 109 H 03/14/19 07:46 Respiratory Rate 20 03/14/19 09:00 Blood Pressure 115/55 L 03/14/19 14:32 O2 Sat by Pulse Oximetry (%) 98 03/14/19 09:00 Musculoskeletal: Yes: Other (General: calm elderly AAM sitting EOB NAD, AAO x3 N /M: B shoulder flexion to 75 degrees, 4/5 B delt then 4+/5 BUE, 3/5 RLE except for 2/5 R DF, 4/5 LLE; Pinprick decreased BUE/ BLE Extremities: 2+ BLE pitting edema, no B calf tenderness) Labs: CBC, BMP 03/14/19 06:08 03/14/19 06:08 Assessment/Plan Impression: 1) Deficits mobility/ ADLs 2) Deconditioning 3) Gait abnormality 4) Chronic back pain with hx multiple cervical/ lumbar laminectomies 5) Chronic R foot drop 2/2 radiculopathy c/b neuropathies (has had EMGs in past , has AFO in past) 6) hx anxiety 7) CHF exacerbation with hx CAD s/p CABG, CO s/p stents x6, HTN, HLD 8) COPD exacerbation with hx bronchial asthma s/p tracheostomy, GRACIE 9) Chronic pancreatitis 10) hx SBO, incarcerated hernia s/p repair x2 09/2017 11) Fatty liver with possible gallstones 12) Renal insufficiency 13) DM on insulin pump with diabetic neuropathy 14) Obesity Recommendations: 1) PT for stretching strengthening ROM and functional mobility 2) Falls, safety precautions 3) Cardiopulmonary precautions 4) Diabetic precautions 5) DVT ppx: on hep sc 6) Skin protection: float heels, frequent turning 7) Bowel regimen prn 8) Nutrition consult for obesity 9) Continue plan per primary team 10) Discharge planning: while he would benefit from [facility], he is only interested in [place] or home with home services. Would benefit from inpatient rehabilitation once medically stable. Thank you for this referral.
--- NOTE | 2019-03-14 18:06 | PN ---
Progress Note (short form) - Note Progress Note: CPK continues to rise. componenet of rhabdo could be contributing to isolated transaminase elevations. this will need to be investigated further per PMD. Informed Hoang Goodwin NP of elevated CPK and need for further follow-up. Problem List - Problems (1) Elevated LFTs Code(s): R94.5 - ABNORMAL RESULTS OF LIVER FUNCTION STUDIES
[2019-03-14] MEDS ORDERED: INSULIN (NOVOLOG) ASPART 100 UNITS/ML 10ML VIAL ONE (21:30)
[2019-03-14] MEDS: ROSUVASTATIN CA 20 MG TABLET (FP) PO SCH (21:59)
[2019-03-14] MEDS: AMITRIPTYLINE HCL 75 MG TABLET PO SCH (21:59)
[2019-03-14] MEDS: MONTELUKAST NA 10 MG TABLET PO SCH (22:00)
--- NOTE | 2019-03-14 23:15 | PN ---
Progress Note, Physician Chief Complaint: abdominal fullness,distended feeling - Current Medication List Current Medications: Active Medications Al Hydroxide/Mg Hydroxide (Mylanta Suspension -) 30 ml PO Q6H PRN PRN Reason: DYSPEPSIA Albuterol Sulfate (Ventolin 0.083% Nebulizer Soln -) 1 amp NEB Q6H PRN PRN Reason: SHORT OF BREATH/WHEEZING Last Admin: 03/12/19 23:41 Dose: 1 amp Albuterol Sulfate (Ventolin Hfa Inhaler -) 2 puff IH Q4H PRN PRN Reason: SHORT OF BREATH/WHEEZING Amitriptyline HCl (Elavil -) 75 mg PO HS [facility] Last Admin: 03/14/19 21:59 Dose: 75 mg Arformoterol Tartrate (Brovana (Restricted To Pulmonology/Resp) -) 1 amp NEB RBID [facility] Last Admin: 03/14/19 19:53 Dose: 1 amp Aspirin (Ecotrin -) 81 mg PO DAILY [facility] Last Admin: 03/14/19 09:04 Dose: 81 mg Clopidogrel Bisulfate (Plavix -) 75 mg PO DAILY [facility] Last Admin: 03/14/19 09:03 Dose: 75 mg Finasteride (Proscar -) 5 mg PO DAILY [facility] Last Admin: 03/14/19 09:00 Dose: 5 mg Gabapentin (Neurontin -) 800 mg PO TID [facility] Last Admin: 03/14/19 21:59 Dose: 800 mg Heparin Sodium (Porcine) (Heparin -) 5,000 unit SQ TID [facility] Last Admin: 03/14/19 21:59 Dose: 5,000 unit Hydralazine HCl (Apresoline -) 50 mg PO BID [facility] Last Admin: 03/14/19 21:59 Dose: 50 mg Hydromorphone HCl (Dilaudid Vial -) 2 mg IM Q4H PRN PRN Reason: PAIN LEVEL 6-10 Last Admin: 03/14/19 20:06 Dose: 2 mg Insulin Aspart (Novolog Vial Sliding Scale -) 1 vial SQ [facility]; Protocol Last Admin: 03/14/19 22:00 Dose: 6 units Isosorbide Mononitrate (Imdur -) 30 mg PO DAILY [facility] Last Admin: 03/14/19 09:00 Dose: 30 mg Montelukast Sodium (Singulair -) 10 mg PO [facility] Last Admin: 03/14/19 22:00 Dose: 10 mg Nifedipine (Procardia Xl -) 30 mg PO DAILY [facility] Last Admin: 03/14/19 09:02 Dose: 30 mg Nystatin (Nystatin Oral Suspension -) 500,000 units PO Q6HPO [facility] Last Admin: 03/14/19 17:29 Dose: 500,000 units Oxycodone HCl (Roxicodone -) 10 mg PO BID [facility] Last Admin: 03/14/19 22:00 Dose: 10 mg Pancrelipase (Creon Dr 36,000 Units Capsule) 1 cap PO TIDCM [facility] Last Admin: 03/14/19 17:29 Dose: 1 cap Pantoprazole Sodium (Protonix -) 20 mg PO DAILY [facility] Last Admin: 03/14/19 09:01 Dose: 20 mg Polyethylene Glycol (Miralax (For Daily Use) -) 17 gm PO BID [facility] Last Admin: 03/14/19 21:59 Dose: 17 gm Prednisone (Deltasone -) 20 mg PO BID [facility] Last Admin: 03/14/19 21:59 Dose: 20 mg Rosuvastatin Calcium (Crestor -) 20 mg PO HS [facility] Last Admin: 03/14/19 21:59 Dose: 20 mg Senna/Docusate Sodium (Pericolace -) 1 tablet PO DAILY [facility] Last Admin: 03/14/19 09:04 Dose: 1 tablet Tamsulosin HCl (Flomax -) 0.4 mg PO DAILY@0830 [facility] Last Admin: 03/14/19 09:08 Dose: 0.4 mg Tiotropium [place] (Spiriva Respimat) 2 puff IH DAILY [facility] Last Admin: 03/14/19 11:26 Dose: 2 puff Torsemide (Demadex -) 40 mg PO DAILY [facility] Last Admin: 03/14/19 09:08 Dose: 40 mg - Objective Vital Signs: Vital Signs Temperature 97.2 F L 03/14/19 14:32 Pulse Rate 109 H 03/14/19 07:46 Respiratory Rate 20 03/14/19 09:00 Blood Pressure 115/55 L 03/14/19 14:32 O2 Sat by Pulse Oximetry (%) 98 03/14/19 21:00 Constitutional: Yes: Calm Eyes: Yes: EOM Intact HENT: Yes: Normocephalic Neck: Yes: Trachea Midline Cardiovascular: Yes: Regular Rate and Rhythm Respiratory: Yes: CTA Bilaterally Gastrointestinal: Yes: Normal Bowel Sounds ...Rectal Exam: Yes: Deferred Genitourinary: Yes: WNL Musculoskeletal: Yes: WNL Extremities: Yes: WNL Edema: Yes Edema: LLE: Trace, RLE: Trace Neurological: Yes: Alert, Oriented Labs: CBC, BMP 03/14/19 06:08 03/14/19 06:08 Problem List - Problems (1) Type 2 diabetes mellitus with hyperosmolarity without nonketotic hyperglycemic-hyperosmolar coma ([facility]) Code(s): E11.00 - TYPE 2 DIAB W HYPROSM W/O NONKET HYPRGLY-HYPROS COMA ([facility]) (2) BMI 39.0-39.9,adult Code(s): Z68.39 - BODY MASS INDEX (BMI) 39.0-39.9, ADULT (3) Diastolic CHF Code(s): I50.30 - UNSPECIFIED DIASTOLIC (CONGESTIVE) HEART FAILURE (4) Leg edema Code(s): R60.0 - LOCALIZED EDEMA (5) Opiate dependence Code(s): F11.20 - OPIOID DEPENDENCE, UNCOMPLICATED (6) Renal insufficiency Code(s): N28.9 - DISORDER OF KIDNEY AND URETER, UNSPECIFIED (7) Abdominal pain in male Code(s): R10.9 - UNSPECIFIED ABDOMINAL PAIN (8) Anxiety Code(s): F41.9 - ANXIETY DISORDER, UNSPECIFIED Assessment/Plan Current Active Problems LOVE (acute kidney injury) (Acute) Abdominal pain (Acute) Anxiety (Acute) BMI 39.0-39.9,adult (Acute) COPD exacerbation (Acute) Chronic pancreatitis (Acute) Diastolic CHF (Acute) Elevated LFTs (Acute) Hyperkalemia (Acute) Leg edema (Acute) Opiate dependence (Acute) Renal insufficiency (Acute) Rhabdomyolysis (Acute) Type 2 diabetes mellitus with hyperosmolarity without nonketotic hyperglycemic- hyperosmolar coma ([facility]) (Acute) Abnormal Lab Results 03/14/19 03/14/19 06:08 06:08 WBC 15.2 H Absolute Neuts (auto) 11.6 H Monocytes % (Manual) 2 L Anion Gap 6 L BUN 53.0 H Creatinine 2.0 H Random Glucose 134 H AST 109 H ALT 190 H Creatine Kinase 2877 H CK-MB (CK-2) 35.5 H Total Protein 6.0 L Laboratory Results - last 24 hr 03/14/19 03/14/19 03/14/19 06:02 06:08 06:08 WBC 15.2 H RBC 4.44 Hgb 12.0 Hct 36.9 MCV 83.0 MCH 27.0 MCHC 32.5 RDW 15.4 Plt Count 284 MPV 7.8 Absolute Neuts (auto) 11.6 H Neutrophils % 76.0 Neutrophils % (Manual) 80.0 Band Neutrophils % 2.0 Lymphocytes % 17.6 Lymphocytes % (Manual) 16.0 D Monocytes % 6.2 Monocytes % (Manual) 2 L Eosinophils % 0.0 D Eosinophils % (Manual) 0.0 Basophils % 0.2 Basophils % (Manual) 0.0 Myelocytes % (Man) 0 Promyelocytes % (Man) 0 Blast Cells % (Manual) 0 Nucleated RBC % 0 Metamyelocytes 0 D Hypochromia 0 Platelet Estimate Normal Polychromasia 0 Poikilocytosis 0 Anisocytosis 0 Microcytosis 0 Macrocytosis 0 Sodium 140 Potassium 4.9 Chloride 105 Carbon Dioxide 30 Anion Gap 6 L BUN 53.0 H Creatinine 2.0 H Est GFR (CKD-EPI)AfAm 39.42 Est GFR (CKD-EPI)NonAf 34.01 POC Glucometer 155 Random Glucose 134 H Calcium 9.8 Total Bilirubin 0.4 AST 109 H ALT 190 H Alkaline Phosphatase 78 Creatine Kinase 2877 H Creatine Kinase Index 1.2 CK-MB (CK-2) 35.5 H Total Protein 6.0 L Albumin 3.4 03/14/19 03/14/19 03/14/19 11:22 16:02 21:56 WBC RBC Hgb Hct MCV MCH MCHC RDW Plt Count MPV Absolute Neuts (auto) Neutrophils % Neutrophils % (Manual) Band Neutrophils % Lymphocytes % Lymphocytes % (Manual) Monocytes % Monocytes % (Manual) Eosinophils % Eosinophils % (Manual) Basophils % Basophils % (Manual) Myelocytes % (Man) Promyelocytes % (Man) Blast Cells % (Manual) Nucleated RBC % Metamyelocytes Hypochromia Platelet Estimate Polychromasia Poikilocytosis Anisocytosis Microcytosis Macrocytosis Sodium Potassium Chloride Carbon Dioxide Anion Gap BUN Creatinine Est GFR (CKD-EPI)AfAm Est GFR (CKD-EPI)NonAf POC Glucometer 157 159 336 Random Glucose Calcium Total Bilirubin AST ALT Alkaline Phosphatase Creatine Kinase Creatine Kinase Index CK-MB (CK-2) Total Protein Albumin plan: adjustment basal insulin using insulin pump basel rate 4.0unit/hr 96 units /day
[2019-03-15] MEDS: HYDROmorphone HCl 2 MG/ML VIAL IM PRN ×6 (00:32→20:30)
[2019-03-15] MEDS: NYSTATIN 500,000 UNITS/5 ML SUSPENSION PO SCH ×4 (00:32→17:17)
[2019-03-15] MEDS: INSULIN SLIDING SCALE (NOVOLOG) 1 VIAL SQ SCH ×4 (06:20→21:56)
[2019-03-15] MEDS: GABAPENTIN 400 MG CAPSULE (FP) PO SCH ×3 (06:20→21:53)
[2019-03-15] MEDS: HEPARIN NA (PORCINE) 5,000 UNITS/ML 1ML VIAL SQ SCH ×3 (06:20→21:54)
[2019-03-15] MEDS: ARFORMOTEROL TARTRATE 15 MCG/2 ML VIAL NEB SCH ×2 (07:51→20:20)
[2019-03-15 08:14] LABS: HEMATOCRIT 35.6 % (35.4-49); HEMOGLOBIN 11.4 GM/dL (11.7-16.9); MCH 26.6 pg (25.7-33.7); MCHC 32.1 g/dl (32.0-35.9); MEAN CELL VOLUME 82.9 fl (80-96); MEAN PLT VOLUME 7.7 fl (7.5-11.1); PLATELET COUNT 271 K/MM3 (134-434); RDW 15.8 % (11.9-15.9); WHITE BLOOD COUNT 13.9 K/mm3 (4.0-10.0)
[2019-03-15 08:28] LABS: ALBUMIN 3.2 g/dl (3.4-5.0); BILIRUBIN,TOTAL 0.4 mg/dL (0.2-1); BLOOD UREA NITROGEN 64.7 mg/dL (7-18); CALCIUM 9.2 mg/dL (8.5-10.1); CREATININE 2.2 mg/dL (0.55-1.3); POTASSIUM 4.7 mmol/L (3.5-5.1); TOT PROT 5.8 g/dl (6.4-8.2)
--- NOTE | 2019-03-15 09:06 | PN ---
Progress Note, Physician History of Present Illness: 63 year old black man with a significant past medical history of CAD s/p [place], stents x6 (most recently 12/2015), CABG, HTN, diastolic CHF, HLD, Chronic Pancreatitis, Chronic Back pain, SBO, Incarcerated Hernia s/p repair x2 (September 2017), H.Pylori, BPH, COPD, Bronchial Asthma, Tracheostomy in place (unplugs when sleeping for GRACIE),and anxiety, who presents with worsening shortness of breath for 2-3 weeks, 1 week of productive cough of yellow phlegm and 2-3 days of chest pain and bilateral leg swelling. He reports his chest pain is L sided pressure like 5-6/10 intermittent radiating to the side and back. He admits to lightheadedness but denies nausea or diaphoresis. He staties that he has taken prednisone 60mg everday for 3 days and doubled his lasix to 80mg a day for 4 days. He reports his symptoms feel like a CHF exacerbation. He took albuterol and breathing treatment prior to arrival. He has no other complaints at bedside. As discussed with his administration professional, Dr. Bola Elaine, today, he has had multiple admissions for chest pain since the last coronary stent; these have been negative for [place]. (07/2016 dobutamine stress MIBI at [facility] : small, mild periinfarct inferior wall ischemia; pt may have had a more recent stress MIBI or angiogram as an outpatient). - Current Medication List Current Medications: Active Medications Al Hydroxide/Mg Hydroxide (Mylanta Suspension -) 30 ml PO Q6H PRN PRN Reason: DYSPEPSIA Albuterol Sulfate (Ventolin 0.083% Nebulizer Soln -) 1 amp NEB Q6H PRN PRN Reason: SHORT OF BREATH/WHEEZING Last Admin: 03/12/19 23:41 Dose: 1 amp Albuterol Sulfate (Ventolin Hfa Inhaler -) 2 puff IH Q4H PRN PRN Reason: SHORT OF BREATH/WHEEZING Amitriptyline HCl (Elavil -) 75 mg PO HS [facility] Last Admin: 03/14/19 21:59 Dose: 75 mg Arformoterol Tartrate (Brovana (Restricted To Pulmonology/Resp) -) 1 amp NEB RBID [facility] Last Admin: 03/15/19 07:51 Dose: 1 amp Aspirin (Ecotrin -) 81 mg PO DAILY [facility] Last Admin: 03/14/19 09:04 Dose: 81 mg Clopidogrel Bisulfate (Plavix -) 75 mg PO DAILY [facility] Last Admin: 03/14/19 09:03 Dose: 75 mg Finasteride (Proscar -) 5 mg PO DAILY [facility] Last Admin: 03/14/19 09:00 Dose: 5 mg Gabapentin (Neurontin -) 800 mg PO TID [facility] Last Admin: 03/15/19 06:20 Dose: 800 mg Heparin Sodium (Porcine) (Heparin -) 5,000 unit SQ TID [facility] Last Admin: 03/15/19 06:20 Dose: 5,000 unit Hydralazine HCl (Apresoline -) 50 mg PO BID [facility] Last Admin: 03/14/19 21:59 Dose: 50 mg Hydromorphone HCl (Dilaudid Vial -) 2 mg IM Q4H PRN PRN Reason: PAIN LEVEL 6-10 Last Admin: 03/15/19 08:20 Dose: 2 mg Insulin Aspart (Novolog Vial Sliding Scale -) 1 vial SQ [facility]; Protocol Last Admin: 03/15/19 06:20 Dose: 2 units Isosorbide Mononitrate (Imdur -) 30 mg PO DAILY [facility] Last Admin: 03/14/19 09:00 Dose: 30 mg Montelukast Sodium (Singulair -) 10 mg PO HS [facility] Last Admin: 03/14/19 22:00 Dose: 10 mg Nifedipine (Procardia Xl -) 30 mg PO DAILY [facility] Last Admin: 03/14/19 09:02 Dose: 30 mg Nystatin (Nystatin Oral Suspension -) 500,000 units PO Q6HPO [facility] Last Admin: 03/15/19 06:20 Dose: 500,000 units Oxycodone HCl (Roxicodone -) 10 mg PO BID [facility] Last Admin: 03/14/19 22:00 Dose: 10 mg Pancrelipase (Creon Dr 36,000 Units Capsule) 1 cap PO TIDCM [facility] Last Admin: 03/14/19 17:29 Dose: 1 cap Pantoprazole Sodium (Protonix -) 20 mg PO DAILY [facility] Last Admin: 03/14/19 09:01 Dose: 20 mg Polyethylene Glycol (Miralax (For Daily Use) -) 17 gm PO BID [facility] Last Admin: 03/14/19 21:59 Dose: 17 gm Prednisone (Deltasone -) 20 mg PO BID [facility] Last Admin: 03/14/19 21:59 Dose: 20 mg Rosuvastatin Calcium (Crestor -) 20 mg PO HS [facility] Last Admin: 03/14/19 21:59 Dose: 20 mg Senna/Docusate Sodium (Pericolace -) 1 tablet PO DAILY [facility] Last Admin: 03/14/19 09:04 Dose: 1 tablet Tamsulosin HCl (Flomax -) 0.4 mg PO DAILY@0830 [facility] Last Admin: 03/14/19 09:08 Dose: 0.4 mg Tiotropium [place] (Spiriva Respimat) 2 puff IH DAILY [facility] Last Admin: 03/14/19 11:26 Dose: 2 puff Torsemide (Demadex -) 40 mg PO DAILY [facility] Last Admin: 03/14/19 09:08 Dose: 40 mg - Objective Vital Signs: Vital Signs Temperature 97.6 F 03/15/19 06:34 Pulse Rate 108 H 03/15/19 06:34 Respiratory Rate 20 03/14/19 23:00 Blood Pressure 130/95 03/15/19 06:34 O2 Sat by Pulse Oximetry (%) 98 03/14/19 21:00 Eyes: Yes: WNL, Conjunctiva Clear, EOM Intact HENT: Yes: WNL, Atraumatic, Normocephalic Neck: Yes: WNL, Supple, Trachea Midline Cardiovascular: Yes: WNL, Regular Rate and Rhythm Respiratory: Yes: WNL, Regular, CTA Bilaterally Gastrointestinal: Yes: WNL, Normal Bowel Sounds Genitourinary: Yes: WNL Musculoskeletal: Yes: WNL Extremities: Yes: WNL Edema: Yes Integumentary: Yes: WNL Neurological: Yes: WNL, Alert, Oriented ...Motor Strength: WNL Psychiatric: Yes: WNL Labs: CBC, BMP 03/15/19 06:10 03/15/19 06:10 Assessment/Plan - Problems (1) BMI 39.0-39.9,adult Assessment/Plan: The importance of weight loss has been discussed multiple times this admission. Now, with his at beside and encouraging him, he says he will continue to see the ladle watcher here, and will set a goal for weight loss. Code(s): Z68.39 - BODY MASS INDEX (BMI) 39.0-39.9, ADULT (2) Leg edema Code(s): R60.0 - LOCALIZED EDEMA (3) Diastolic CHF Assessment/Plan: On amlodipine; added hydralazine + Imdur for HTN. F/u BUN/Cr, electrolytes, daily weight, Is and Os. Code(s): I50.30 - UNSPECIFIED DIASTOLIC (CONGESTIVE) HEART FAILURE (4) Anxiety Code(s): F41.9 - ANXIETY DISORDER, UNSPECIFIED (5) Opiate dependence Assessment/Plan: Will require long-term help, ideally, for pain management, psychological counseling, and gradual weaning from opiates. This was discussed today with his present. Code(s): F11.20 - OPIOID DEPENDENCE, UNCOMPLICATED (6) Renal insufficiency Assessment/Plan: avoid overzealous diuresis. F/u BUN/Cr (Cr 1.1 on 07/2018; on this admission, it was initially 1.3; now 2.1- ->1.7)), Is and Os, daily weight electrolytes (off chlorthalidone, furosemide, ACEI) Not in acute CHF. f/u with build master. Code(s): N28.9 - DISORDER OF KIDNEY AND URETER, UNSPECIFIED (7) HTN (hypertension) Assessment/Plan: On amllodipine. Hydralazine + Imdur added due to increasing BP, with improved readings during the day. F/u, and increase doses as needed. Code(s): I10 - ESSENTIAL (PRIMARY) HYPERTENSION (8) Hyperlipidemia Assessment/Plan: Diet control; weight loss; exercise. statin; keep LDL < 70 mg/dl. (as noted by GI pt may benefit from stopping Zetia in regards to elevated LFTs; follow up lipids after pt compliant to Crestor alone for several weeks). The importance of weight loss, proper food choices, and exercise in aiding weight loss and lipid control was discussed. Pt would benefit from nutritioist f /u; he agrees to do so, and his , present today, is in agreement. Code(s): E78.5 - HYPERLIPIDEMIA, UNSPECIFIED (9) Hx of heart artery stent Assessment/Plan: Most recently 2015. On ASA (change to non-enteric coated) and clopidogrel. Code(s): Z95.5 - PRESENCE OF CORONARY ANGIOPLASTY IMPLANT AND GRAFT (10) COPD exacerbation Assessment/Plan: Taper off IV steroids per cost specialist Code(s): J44.1 - CHRONIC OBSTRUCTIVE PULMONARY DISEASE W (ACUTE) EXACERBATION (11) Atypical chest pain Assessment/Plan: Sharp chest pains exacerbated by deep inspiration. TNI 0.02 x 3. EKG: normal sinus rhythm; normal study. Discussed with pt's private administration professional (Dr. Elaine) on admission. Records regarding most recent coronary artery workup (has apparently not required coronary stent since 2016); stress MIBI 2017 showed mild ischemia. On ASA and clopidogrel. Statin (though on Zetia, spotty compliance to statin may explain elevated LDL on admission)..
[2019-03-15] MEDS: LIPASE/PROTEASE/AMYLASE 36,000 UNIT CAPSULE PO SCH ×3 (09:47→17:17)
[2019-03-15] MEDS: TORSEMIDE 20 MG TABLET (FP) PO SCH (09:48)
[2019-03-15] MEDS: hydrALAZINE HCL 25 MG TABLET (FP) PO SCH ×2 (09:49→21:53)
[2019-03-15] MEDS: predniSONE 20 MG TABLET (UD) PO SCH ×2 (09:49→21:53)
[2019-03-15] MEDS: NIFEdipine E.R. 30 MG TABLET (FP) PO SCH (09:49)
[2019-03-15] MEDS: ASPIRIN COATED 81 MG TABLET.EC PO SCH (09:50)
[2019-03-15] MEDS: TAMSULOSIN HCL 0.4 MG CAP PO SCH (09:50)
[2019-03-15] MEDS: CLOPIDOGREL BISULFATE 75 MG TABLET (FP) PO SCH (09:50)
[2019-03-15] MEDS: FINASTERIDE 5 MG TABLET (FP) PO SCH (09:50)
[2019-03-15] MEDS: SENNOSIDES/DOCUSATE COMBO (SENNA PLUS) TABLET (UD) PO SCH (09:50)
[2019-03-15] MEDS: ISOSORBIDE MONONITRATE 30 MG TAB.SR.24H (FP) PO SCH (09:51)
[2019-03-15] MEDS: oxyCODONE HCL 5 MG TABLET PO SCH ×2 (09:51→22:04)
[2019-03-15] MEDS: PANTOPRAZOLE 20 MG TABLET (FP) PO SCH (09:51)
[2019-03-15] MEDS: TIOTROPIUM BROMIDE 2.5 MCG (SPIRIVA) RESPIMAT INHALER IH SCH (09:52)
[2019-03-15] MEDS: POLYETHYLENE GLYCOL 3350 119 GM BTL PO SCH ×2 (09:56→22:02)
--- NOTE | 2019-03-15 13:53 | PN ---
Progress Note, Physician History of Present Illness: pulmonary alert,feeling better,less dyspneic,-cp - Current Medication List Current Medications: Active Medications Al Hydroxide/Mg Hydroxide (Mylanta Suspension -) 30 ml PO Q6H PRN PRN Reason: DYSPEPSIA Albuterol Sulfate (Ventolin 0.083% Nebulizer Soln -) 1 amp NEB Q6H PRN PRN Reason: SHORT OF BREATH/WHEEZING Last Admin: 03/12/19 23:41 Dose: 1 amp Albuterol Sulfate (Ventolin Hfa Inhaler -) 2 puff IH Q4H PRN PRN Reason: SHORT OF BREATH/WHEEZING Amitriptyline HCl (Elavil -) 75 mg PO HS [facility] Last Admin: 03/14/19 21:59 Dose: 75 mg Arformoterol Tartrate (Brovana (Restricted To Pulmonology/Resp) -) 1 amp NEB RBID [facility] Last Admin: 03/15/19 07:51 Dose: 1 amp Aspirin (Ecotrin -) 81 mg PO DAILY [facility] Last Admin: 03/15/19 09:50 Dose: 81 mg Clopidogrel Bisulfate (Plavix -) 75 mg PO DAILY [facility] Last Admin: 03/15/19 09:50 Dose: 75 mg Finasteride (Proscar -) 5 mg PO DAILY [facility] Last Admin: 03/15/19 09:50 Dose: 5 mg Gabapentin (Neurontin -) 800 mg PO TID [facility] Last Admin: 03/15/19 06:20 Dose: 800 mg Heparin Sodium (Porcine) (Heparin -) 5,000 unit SQ TID [facility] Last Admin: 03/15/19 13:41 Dose: Not Given Hydralazine HCl (Apresoline -) 50 mg PO BID [facility] Last Admin: 03/15/19 09:49 Dose: 50 mg Hydromorphone HCl (Dilaudid Vial -) 2 mg IM Q4H PRN PRN Reason: PAIN LEVEL 6-10 Last Admin: 03/15/19 12:29 Dose: 2 mg Insulin Aspart (Novolog Vial Sliding Scale -) [address] [facility]; Protocol Last Admin: 03/15/19 12:04 Dose: Not Given Isosorbide Mononitrate (Imdur -) 30 mg PO DAILY [facility] Last Admin: 03/15/19 09:51 Dose: 30 mg Montelukast Sodium (Singulair -) 10 mg PO HS [facility] Last Admin: 03/14/19 22:00 Dose: 10 mg Nifedipine (Procardia Xl -) 30 mg PO DAILY [facility] Last Admin: 03/15/19 09:49 Dose: 30 mg Nystatin (Nystatin Oral Suspension -) 500,000 units PO Q6HPO [facility] Last Admin: 03/15/19 12:30 Dose: 500,000 units Oxycodone HCl (Roxicodone -) 10 mg PO BID [facility] Last Admin: 03/15/19 09:51 Dose: 10 mg Pancrelipase (Creon Dr 36,000 Units Capsule) 1 cap PO TIDCM [facility] Last Admin: 03/15/19 12:30 Dose: 1 cap Pantoprazole Sodium (Protonix -) 20 mg PO DAILY [facility] Last Admin: 03/15/19 09:51 Dose: 20 mg Polyethylene Glycol (Miralax (For Daily Use) -) 17 gm PO BID [facility] Last Admin: 03/15/19 09:56 Dose: 17 gm Prednisone (Deltasone -) 20 mg PO BID [facility] Last Admin: 03/15/19 09:49 Dose: 20 mg Rosuvastatin Calcium (Crestor -) 20 mg PO HS [facility] Last Admin: 03/14/19 21:59 Dose: 20 mg Senna/Docusate Sodium (Pericolace -) 1 tablet PO DAILY [facility] Last Admin: 03/15/19 09:50 Dose: 1 tablet Tamsulosin HCl (Flomax -) 0.4 mg PO DAILY@0830 [facility] Last Admin: 03/15/19 09:50 Dose: 0.4 mg Tiotropium [place] (Spiriva Respimat) 2 puff IH DAILY [facility] Last Admin: 03/15/19 09:52 Dose: 2 puff Torsemide (Demadex -) 40 mg PO DAILY [facility] Last Admin: 03/15/19 09:48 Dose: 40 mg - Objective Vital Signs: Vital Signs Temperature 98 F 03/15/19 10:00 Pulse Rate 112 H 03/15/19 10:00 Respiratory Rate 20 03/15/19 09:00 Blood Pressure 161/90 03/15/19 10:00 O2 Sat by Pulse Oximetry (%) 98 03/15/19 09:00 Constitutional: Yes: Calm, Obese Eyes: Yes: WNL HENT: Yes: WNL Neck: Yes: WNL Cardiovascular: Yes: Regular Rate and Rhythm, S1, S2 Respiratory: Yes: Diminished Gastrointestinal: Yes: Normal Bowel Sounds, Soft Extremities: Yes: WNL Edema: Yes Labs: CBC, BMP 03/15/19 06:10 03/15/19 06:10 Problem List - Problems (1) BMI 39.0-39.9,adult Code(s): Z68.39 - BODY MASS INDEX (BMI) 39.0-39.9, ADULT (2) Leg edema Code(s): R60.0 - LOCALIZED EDEMA (3) SOB (shortness of breath) Code(s): R06.02 - SHORTNESS OF BREATH (4) HTN (hypertension) Code(s): I10 - ESSENTIAL (PRIMARY) HYPERTENSION (5) Hx of heart artery stent Code(s): Z95.5 - PRESENCE OF CORONARY ANGIOPLASTY IMPLANT AND GRAFT (6) ASHD (arteriosclerotic heart disease) Code(s): I25.10 - ATHSCL HEART DISEASE OF [place] CORONARY ARTERY W/O ANG PCTRS (7) COPD (chronic obstructive pulmonary disease) Code(s): J44.9 - CHRONIC OBSTRUCTIVE PULMONARY DISEASE, UNSPECIFIED (8) Diabetes mellitus Code(s): E11.9 - TYPE 2 DIABETES MELLITUS WITHOUT COMPLICATIONS Qualifiers: Diabetes mellitus type: type 2 (9) GRACIE (obstructive sleep apnea) Code(s): G47.33 - OBSTRUCTIVE SLEEP APNEA (ADULT) (PEDIATRIC) (10) Tracheostomy in place Code(s): Z98.89 - OTHER SPECIFIED POSTPROCEDURAL STATES * DO NOT USE * (11) Obesity Code(s): E66.9 - OBESITY, UNSPECIFIED (12) Asthma Code(s): J45.909 - UNSPECIFIED ASTHMA, UNCOMPLICATED Qualifiers: Asthma severity: unspecified severity Assessment/Plan Problem List - Problems (1) COPD exacerbation Code(s): J44.1 - CHRONIC OBSTRUCTIVE PULMONARY DISEASE W (ACUTE) EXACERBATION Assessment/Plan Acute COPD Exacerbation improved Acute on Chronic Diastolic Heart Failure Chronic Hypoxic Respiratory Failure Obstructive Sleep Apnea s/p Tracheostomy CAD s/p CABG HTN DM Hyperlipidemia Spinal Stenosis Chronic Pain Syndrome Opiate Dependence Acute on chronic kidney disease - prednisone - inhaled bronchodilators standing and PRN - O2 to keep Spo2 >90% - monitor urine output, creatinine - uncap tracheostomy when sleeping - dilaudid 4mg for breakthrough pain - DVT prophylaxis DR VANESSA
--- NOTE | 2019-03-15 15:54 | PN ---
Progress Note, Physician Chief Complaint: COPD Exacerbation Intractable lower back pain CHF History of Present Illness: Previous notes and events reviewed awake and alert NAD sts his breathing is improving CPK and LFTs showing downtrend after Zetia discontinued - Current Medication List Current Medications: Active Medications Al Hydroxide/Mg Hydroxide (Mylanta Suspension -) 30 ml PO Q6H PRN PRN Reason: DYSPEPSIA Albuterol Sulfate (Ventolin 0.083% Nebulizer Soln -) 1 amp NEB Q6H PRN PRN Reason: SHORT OF BREATH/WHEEZING Last Admin: 03/12/19 23:41 Dose: 1 amp Albuterol Sulfate (Ventolin Hfa Inhaler -) 2 puff IH Q4H PRN PRN Reason: SHORT OF BREATH/WHEEZING Amitriptyline HCl (Elavil -) 75 mg PO HS [facility] Last Admin: 03/14/19 21:59 Dose: 75 mg Arformoterol Tartrate (Brovana (Restricted To Pulmonology/Resp) -) 1 amp NEB RBID [facility] Last Admin: 03/15/19 07:51 Dose: 1 amp Aspirin (Ecotrin -) 81 mg PO DAILY [facility] Last Admin: 03/15/19 09:50 Dose: 81 mg Clopidogrel Bisulfate (Plavix -) 75 mg PO DAILY [facility] Last Admin: 03/15/19 09:50 Dose: 75 mg Finasteride (Proscar -) 5 mg PO DAILY [facility] Last Admin: 03/15/19 09:50 Dose: 5 mg Gabapentin (Neurontin -) 800 mg PO TID [facility] Last Admin: 03/15/19 14:21 Dose: 800 mg Heparin Sodium (Porcine) (Heparin -) 5,000 unit SQ TID [facility] Last Admin: 03/15/19 13:41 Dose: Not Given Hydralazine HCl (Apresoline -) 50 mg PO BID [facility] Last Admin: 03/15/19 09:49 Dose: 50 mg Hydromorphone HCl (Dilaudid Vial -) 2 mg IM Q4H PRN PRN Reason: PAIN LEVEL 6-10 Last Admin: 03/15/19 12:29 Dose: 2 mg Insulin Aspart (Novolog Vial Sliding Scale -) 1 vial SQ [facility]; Protocol Last Admin: 03/15/19 12:04 Dose: Not Given Isosorbide Mononitrate (Imdur -) 30 mg PO DAILY [facility] Last Admin: 03/15/19 09:51 Dose: 30 mg Montelukast Sodium (Singulair -) 10 mg PO HS [facility] Last Admin: 03/14/19 22:00 Dose: 10 mg Nifedipine (Procardia Xl -) 30 mg PO DAILY [facility] Last Admin: 03/15/19 09:49 Dose: 30 mg Nystatin (Nystatin Oral Suspension -) 500,000 units PO Q6HPO [facility] Last Admin: 03/15/19 12:30 Dose: 500,000 units Oxycodone HCl (Roxicodone -) 10 mg PO BID [facility] Last Admin: 03/15/19 09:51 Dose: 10 mg Pancrelipase (Creon Dr 36,000 Units Capsule) 1 cap PO TIDCM [facility] Last Admin: 03/15/19 12:30 Dose: 1 cap Pantoprazole Sodium (Protonix -) 20 mg PO DAILY [facility] Last Admin: 03/15/19 09:51 Dose: 20 mg Polyethylene Glycol (Miralax (For Daily Use) -) 17 gm PO BID [facility] Last Admin: 03/15/19 09:56 Dose: 17 gm Prednisone (Deltasone -) 20 mg PO BID [facility] Last Admin: 03/15/19 09:49 Dose: 20 mg Rosuvastatin Calcium (Crestor -) 20 mg PO HS [facility] Last Admin: 03/14/19 21:59 Dose: 20 mg Senna/Docusate Sodium (Pericolace -) 1 tablet PO DAILY [facility] Last Admin: 03/15/19 09:50 Dose: 1 tablet Tamsulosin HCl (Flomax -) 0.4 mg PO DAILY@0830 [facility] Last Admin: 03/15/19 09:50 Dose: 0.4 mg Tiotropium [place] (Spiriva Respimat) 2 puff IH DAILY [facility] Last Admin: 03/15/19 09:52 Dose: 2 puff Torsemide (Demadex -) 40 mg PO DAILY [facility] Last Admin: 03/15/19 09:48 Dose: 40 mg - Objective Vital Signs: Vital Signs Temperature 98 F 03/15/19 10:00 Pulse Rate 112 H 03/15/19 10:00 Respiratory Rate 20 03/15/19 09:00 Blood Pressure 161/90 03/15/19 10:00 O2 Sat by Pulse Oximetry (%) 98 03/15/19 09:00 Constitutional: Yes: No Distress, Calm Eyes: Yes: Conjunctiva Clear HENT: Yes: Atraumatic Cardiovascular: Yes: Regular Rate and Rhythm Respiratory: Yes: Regular, Diminished, On Nasal O2 Gastrointestinal: Yes: Normal Bowel Sounds, Soft, Abdomen, Obese Musculoskeletal: Yes: Muscle Weakness Extremities: Yes: WNL Edema: Yes Edema: LLE: 2+, RLE: 2+ Neurological: Yes: Alert, Oriented Psychiatric: Yes: Alert, Oriented Labs: CBC, BMP 03/15/19 06:10 03/15/19 06:10 Problem List - Problems (1) BMI 39.0-39.9,adult Assessment/Plan: -Dietary consult Code(s): Z68.39 - BODY MASS INDEX (BMI) 39.0-39.9, ADULT (2) COPD exacerbation Assessment/Plan: -Pulm on board -O2 via NC -keep SpO2 >90% -Symbicort, Brovanna, Spiriva -bronchodilators -prednisone Code(s): J44.1 - CHRONIC OBSTRUCTIVE PULMONARY DISEASE W (ACUTE) EXACERBATION (3) Diastolic CHF Assessment/Plan: -Cardiology on board -1L fluid restriction -daily weights -strict I&Os Code(s): I50.30 - UNSPECIFIED DIASTOLIC (CONGESTIVE) HEART FAILURE (4) Leg edema Assessment/Plan: -keep legs elevated -Torsemide Code(s): R60.0 - LOCALIZED EDEMA (5) Renal insufficiency Assessment/Plan: -Renal on board -BUN/Cr 64.7/2.2 -continue to monitor renal function Code(s): N28.9 - DISORDER OF KIDNEY AND URETER, UNSPECIFIED (6) HTN (hypertension) Assessment/Plan: -Norvasc, Chlorthalidone -Hydralazine BID and Imdur -low Na diet Code(s): I10 - ESSENTIAL (PRIMARY) HYPERTENSION (7) Hyperlipidemia Assessment/Plan: -Crestor -Zetia on hold due to elevated LFTs -Cardiology recommendation appreciated, will need lipid panel checked as outpatient while on Crestor alone Code(s): E78.5 - HYPERLIPIDEMIA, UNSPECIFIED (8) Diabetes mellitus Assessment/Plan: -BGM ACHS -Insulin pump -ISS -diabetic diet Code(s): E11.9 - TYPE 2 DIABETES MELLITUS WITHOUT COMPLICATIONS Qualifiers: Diabetes mellitus type: type 2 (9) Intractable low back pain Assessment/Plan: -Pain consult -Dilaudid, Nucynta, Percocet -Neurosurgery consult Code(s): M54.5 - LOW BACK PAIN (10) Abdominal pain Assessment/Plan: -Abdominal US shows fatty enlarged liver, possible gallstone -GI on board Code(s): R10.9 - UNSPECIFIED ABDOMINAL PAIN (11) Hyperkalemia Assessment/Plan: -K 4.7 -resolved -renal on board Code(s): E87.5 - HYPERKALEMIA (12) Rhabdomyolysis Assessment/Plan: -CPK 2654 -encourage hydration -monitor CPK level -Zetia discontinued -cardiology on board Code(s): M62.82 - RHABDOMYOLYSIS (13) Elevated LFTs Assessment/Plan: -AST 100, ALT 183 -GI on board -Zetia discontinued -will monitor LFTs for downtrend Code(s): R94.5 - ABNORMAL RESULTS OF LIVER FUNCTION STUDIES Assessment/Plan see problem list dvt ppx d/c home tomorrow if LFTs and CPK show downtrend
--- NOTE | 2019-03-15 16:40 | PN ---
Progress Note (short form) - Note Progress Note: Renal follow up for LOVE on CKD Pt seen and examined at the bedside offers no acute complaints making urine denies any sob, chest pain leg swelling improving Vital Signs Temperature 98 F 03/15/19 10:00 Pulse Rate 112 H 03/15/19 10:00 Respiratory Rate 20 03/15/19 09:00 Blood Pressure 161/90 03/15/19 10:00 O2 Sat by Pulse Oximetry (%) 98 03/15/19 09:00 Intake & Output 03/12/19 03/13/19 03/14/19 03/15/19 23:59 23:59 23:59 23:59 Intake Total 1400 1100 1480 550 Output Total 200 Balance 1400 1100 1280 550 Weight 134.065 kg 134.433 kg 135.227 kg 132.903 kg NAD RRR CTA obese, NT/ND abd trace to 1+ LE edema CBC, BMP 03/15/19 06:10 03/15/19 06:10 Current Medications Al Hydroxide/Mg Hydroxide (Mylanta Suspension -) 30 ml PO Q6H PRN PRN Reason: DYSPEPSIA Albuterol Sulfate (Ventolin 0.083% Nebulizer Soln -) 1 amp NEB Q6H PRN PRN Reason: SHORT OF BREATH/WHEEZING Last Admin: 03/12/19 23:41 Dose: 1 amp Albuterol Sulfate (Ventolin Hfa Inhaler -) 2 puff IH Q4H PRN PRN Reason: SHORT OF BREATH/WHEEZING Amitriptyline HCl (Elavil -) 75 mg PO HS [facility] Last Admin: 03/14/19 21:59 Dose: 75 mg Arformoterol Tartrate (Brovana (Restricted To Pulmonology/Resp) -) 1 amp NEB RBID [facility] Last Admin: 03/15/19 07:51 Dose: 1 amp Aspirin (Ecotrin -) 81 mg PO DAILY [facility] Last Admin: 03/15/19 09:50 Dose: 81 mg Clopidogrel Bisulfate (Plavix -) 75 mg PO DAILY [facility] Last Admin: 03/15/19 09:50 Dose: 75 mg Finasteride (Proscar -) 5 mg PO DAILY [facility] Last Admin: 03/15/19 09:50 Dose: 5 mg Gabapentin (Neurontin -) 800 mg PO TID [facility] Last Admin: 03/15/19 14:21 Dose: 800 mg Heparin Sodium (Porcine) (Heparin -) 5,000 unit SQ TID [facility] Last Admin: 03/15/19 13:41 Dose: Not Given Hydralazine HCl (Apresoline -) 50 mg PO BID [facility] Last Admin: 03/15/19 09:49 Dose: 50 mg Hydromorphone HCl (Dilaudid Vial -) 2 mg IM Q4H PRN PRN Reason: PAIN LEVEL 6-10 Last Admin: 03/15/19 12:29 Dose: 2 mg Insulin Aspart (Novolog Vial Sliding Scale -) 1 vial SQ ACHS [facility]; Protocol Last Admin: 03/15/19 12:04 Dose: Not Given Isosorbide Mononitrate (Imdur -) 30 mg PO DAILY [facility] Last Admin: 03/15/19 09:51 Dose: 30 mg Montelukast Sodium (Singulair -) 10 mg PO HS [facility] Last Admin: 03/14/19 22:00 Dose: 10 mg Nifedipine (Procardia Xl -) 30 mg PO DAILY [facility] Last Admin: 03/15/19 09:49 Dose: 30 mg Nystatin (Nystatin Oral Suspension -) 500,000 units PO Q6HPO [facility] Last Admin: 03/15/19 12:30 Dose: 500,000 units Oxycodone HCl (Roxicodone -) 10 mg PO BID [facility] Last Admin: 03/15/19 09:51 Dose: 10 mg Pancrelipase (Creon Dr 36,000 Units Capsule) 1 cap PO TIDCM [facility] Last Admin: 03/15/19 12:30 Dose: 1 cap Pantoprazole Sodium (Protonix -) 20 mg PO DAILY [facility] Last Admin: 03/15/19 09:51 Dose: 20 mg Polyethylene Glycol (Miralax (For Daily Use) -) 17 gm PO BID [facility] Last Admin: 03/15/19 09:56 Dose: 17 gm Prednisone (Deltasone -) 20 mg PO BID [facility] Last Admin: 03/15/19 09:49 Dose: 20 mg Rosuvastatin Calcium (Crestor -) 20 mg PO HS [facility] Last Admin: 03/14/19 21:59 Dose: 20 mg Senna/Docusate Sodium (Pericolace -) 1 tablet PO DAILY [facility] Last Admin: 03/15/19 09:50 Dose: 1 tablet Tamsulosin HCl (Flomax -) 0.4 mg PO DAILY@0830 [facility] Last Admin: 03/15/19 09:50 Dose: 0.4 mg Tiotropium [place] (Spiriva Respimat) 2 puff IH DAILY [facility] Last Admin: 03/15/19 09:52 Dose: 2 puff Torsemide (Demadex -) 40 mg PO DAILY [facility] Last Admin: 03/15/19 09:48 Dose: 40 mg 63 year old gentleman with history of hypertension, DM, hyperlipidemia, GRACIE s/ p trach, CAD s/p CABG, CHF with diastolic dysfunction who presented with worsening SOB and admitted for CHF + COPD exacerbation with Cr of 2. 1. Acute kidney injury secondary renal hypoprofusion in setting of cardiac dysfunction 2. CHF with diastolic dysfunction 3. COPD 4. Chronic GRACIE 5. CAD s/p CABG 6. DM 7. Hyperlipidemia Renal function essentially stable, no electrolyte or acid base disturbance Mr. Cohen is diuresing well with Torsemide Continue current diuretics. Withhold LETI/ARB for now as Cr is above baseline taper steroids as per cardiology stable for discharge from renal perspective with outpatient follow up Thank you Az Nelson DO
--- NOTE | 2019-03-15 18:59 | PN ---
Progress Note (short form) - Note Progress Note: covering for Dr Bob LFTs with a down miller trend Patient in multiple medication causing hepatotoxicity including Cresto, Gabapentin and Finestride R? if ok with Cardiology will decrease Crestor 5mg MWF and Zetia to T THS decrease Gabapentin to BID Finestride 5mg every other day and adjust doses accordingly
[2019-03-15] MEDS: metroNIDAZOLE 250 MG TABLET PO SCH (21:53)
[2019-03-15] MEDS: MONTELUKAST NA 10 MG TABLET PO SCH (21:53)
[2019-03-15] MEDS: ROSUVASTATIN CA 20 MG TABLET (FP) PO SCH (21:53)
[2019-03-15] MEDS: AMITRIPTYLINE HCL 75 MG TABLET PO SCH (21:54)
[2019-03-15] MEDS: Methylnaltrexone Bromide 12 MG/0.6 ML KIT SQ SCH (21:58)
[2019-03-15] MEDS ORDERED: MAG HYDROX/AL HYDROX/SIMETH 30 ML UNIT-DOSE CUP PO PRN (23:17)
[2019-03-16] MEDS: NYSTATIN 500,000 UNITS/5 ML SUSPENSION PO SCH ×4 (00:15→17:24)
[2019-03-16] MEDS: HYDROmorphone HCl 2 MG/ML VIAL IM PRN ×5 (00:32→21:48)
[2019-03-16] MEDS: HEPARIN NA (PORCINE) 5,000 UNITS/ML 1ML VIAL SQ SCH ×3 (06:21→21:47)
[2019-03-16] MEDS: GABAPENTIN 400 MG CAPSULE (FP) PO SCH ×2 (06:22→21:48)
[2019-03-16] MEDS: INSULIN SLIDING SCALE (NOVOLOG) 1 VIAL SQ SCH ×4 (06:27→21:53)
[2019-03-16] MEDS: metroNIDAZOLE 250 MG TABLET PO SCH ×3 (06:30→21:50)
[2019-03-16] MEDS ORDERED: PT OWN MED DRAWER 7, Y5N ONE ×3 (08:30→19:05)
[2019-03-16] MEDS: ARFORMOTEROL TARTRATE 15 MCG/2 ML VIAL NEB SCH ×2 (08:35→20:12)
[2019-03-16] MEDS: LIPASE/PROTEASE/AMYLASE 36,000 UNIT CAPSULE PO SCH ×3 (08:38→17:52)
[2019-03-16] MEDS: TAMSULOSIN HCL 0.4 MG CAP PO SCH (08:38)
[2019-03-16 08:41] LABS: HEMATOCRIT 34.2 % (35.4-49); HEMOGLOBIN 11.2 GM/dL (11.7-16.9); MCH 27.1 pg (25.7-33.7); MCHC 32.8 g/dl (32.0-35.9); MEAN CELL VOLUME 82.6 fl (80-96); MEAN PLT VOLUME 7.6 fl (7.5-11.1); PLATELET COUNT 256 K/MM3 (134-434); RBC 4.14 M/mm3 (4.00-5.60); RDW 15.8 % (11.9-15.9)
[2019-03-16 09:41] LABS: BLOOD UREA NITROGEN 57.2 mg/dL (7-18); CALCIUM 9.2 mg/dL (8.5-10.1); POTASSIUM 4.2 mmol/L (3.5-5.1)
[2019-03-16] MEDS: hydrALAZINE HCL 25 MG TABLET (FP) PO SCH ×2 (10:39→21:49)
[2019-03-16] MEDS: predniSONE 20 MG TABLET (UD) PO SCH ×2 (10:40→21:50)
[2019-03-16] MEDS: TORSEMIDE 20 MG TABLET (FP) PO SCH (10:41)
[2019-03-16] MEDS: ASPIRIN COATED 81 MG TABLET.EC PO SCH (10:42)
[2019-03-16] MEDS: ISOSORBIDE MONONITRATE 30 MG TAB.SR.24H (FP) PO SCH (10:43)
[2019-03-16] MEDS: SENNOSIDES/DOCUSATE COMBO (SENNA PLUS) TABLET (UD) PO SCH (10:43)
[2019-03-16] MEDS: POLYETHYLENE GLYCOL 3350 119 GM BTL PO SCH ×2 (10:43→21:53)
[2019-03-16] MEDS: NIFEdipine E.R. 30 MG TABLET (FP) PO SCH (10:44)
[2019-03-16] MEDS: CLOPIDOGREL BISULFATE 75 MG TABLET (FP) PO SCH (10:44)
[2019-03-16] MEDS: PANTOPRAZOLE 20 MG TABLET (FP) PO SCH (10:45)
[2019-03-16] MEDS: FINASTERIDE 5 MG TABLET (FP) PO SCH (10:45)
[2019-03-16] MEDS: oxyCODONE HCL 5 MG TABLET PO SCH ×2 (10:45→23:00)
--- NOTE | 2019-03-16 10:46 | PN ---
Progress Note (short form) - Note Progress Note: Breathing is improving. Close to baseline. No acute events overnight. Intake & Output 03/13/19 03/14/19 03/15/19 03/16/19 23:59 23:59 23:59 23:59 Intake Total 1100 1480 1450 Output Total 200 Balance 1100 1280 1450 Weight 296 lb 6 oz 298 lb 2 oz 293 lb 299 lb 9 oz Last Vital Signs Temp Pulse Resp BP Pulse Ox 97.7 F 88 20 152/87 98 03/16/19 06:00 03/16/19 06:00 03/16/19 06:00 03/16/19 06:00 03/15/19 21:00 Active Medications Al Hydroxide/Mg Hydroxide (Mylanta Oral Suspension -) 30 ml PO Q6H PRN PRN Reason: DYSPEPSIA Albuterol Sulfate (Ventolin 0.083% Nebulizer Soln -) 1 amp NEB Q6H PRN PRN Reason: SHORT OF BREATH/WHEEZING Last Admin: 03/12/19 23:41 Dose: 1 amp Albuterol Sulfate (Ventolin Hfa Inhaler -) 2 puff IH Q4H PRN PRN Reason: SHORT OF BREATH/WHEEZING Amitriptyline HCl (Elavil -) 75 mg PO HS [facility] Last Admin: 03/15/19 21:54 Dose: 75 mg Arformoterol Tartrate (Brovana (Restricted To Pulmonology/Resp) -) 1 amp NEB RBID [facility] Last Admin: 03/16/19 08:35 Dose: 1 amp Aspirin (Ecotrin -) 81 mg PO DAILY [facility] Last Admin: 03/15/19 09:50 Dose: 81 mg Clopidogrel Bisulfate (Plavix -) 75 mg PO DAILY [facility] Last Admin: 03/15/19 09:50 Dose: 75 mg Finasteride (Proscar -) 5 mg PO DAILY [facility] Last Admin: 03/15/19 09:50 Dose: 5 mg Gabapentin (Neurontin -) 800 mg PO TID [facility] Last Admin: 03/16/19 06:22 Dose: 800 mg Heparin Sodium (Porcine) (Heparin -) 5,000 unit SQ TID [facility] Last Admin: 03/16/19 06:21 Dose: 5,000 unit Hydralazine HCl (Apresoline -) 50 mg PO BID [facility] Last Admin: 09/04/19 21:53 Dose: 50 mg Hydromorphone HCl (Dilaudid Vial -) 2 mg IM Q4H PRN PRN Reason: PAIN LEVEL 6-10 Last Admin: 03/16/19 06:24 Dose: 2 mg Insulin Aspart (Novolog Vial Sliding Scale -) 1 vial SQ ACHS [facility]; Protocol Last Admin: 03/16/19 06:27 Dose: 8.1 units Isosorbide Mononitrate (Imdur -) 30 mg PO DAILY [facility] Last Admin: 03/15/19 09:51 Dose: 30 mg Methylnaltrexone [place] (Relistor -) 12 mg SQ DAILY [facility] Last Admin: 03/15/19 21:58 Dose: 12 mg Metronidazole (Flagyl -) 250 mg PO TID [facility] Last Admin: 03/16/19 06:30 Dose: 250 mg Montelukast Sodium (Singulair -) 10 mg PO [facility] Last Admin: 03/15/19 21:53 Dose: 10 mg Nifedipine (Procardia Xl -) 30 mg PO DAILY [facility] Last Admin: 03/15/19 09:49 Dose: 30 mg Nystatin (Nystatin Oral Suspension -) 500,000 units PO Q6HPO [facility] Last Admin: 03/16/19 06:22 Dose: 500,000 units Oxycodone HCl (Roxicodone -) 10 mg PO BID [facility] Last Admin: 03/15/19 22:04 Dose: 10 mg Pancrelipase (Creon Dr 36,000 Units Capsule) 1 cap PO TIDCM [facility] Last Admin: 03/16/19 08:38 Dose: 1 cap Pantoprazole Sodium (Protonix -) 20 mg PO DAILY [facility] Last Admin: 03/15/19 09:51 Dose: 20 mg Polyethylene Glycol (Miralax (For Daily Use) -) 17 gm PO BID [facility] Last Admin: 03/15/19 22:02 Dose: 17 gm Prednisone (Deltasone -) 20 mg PO BID [facility] Last Admin: 03/15/19 21:53 Dose: 20 mg Rosuvastatin Calcium (Crestor -) 20 mg PO HS [facility] Last Admin: 03/15/19 21:53 Dose: 20 mg Senna/Docusate Sodium (Pericolace -) 1 tablet PO DAILY [facility] Last Admin: 03/15/19 09:50 Dose: 1 tablet Tamsulosin HCl (Flomax -) 0.4 mg PO DAILY@0830 [facility] Last Admin: 03/16/19 08:38 Dose: 0.4 mg Tiotropium [place] (Spiriva Respimat) 2 puff IH DAILY [facility] Last Admin: 03/15/19 09:52 Dose: 2 puff Torsemide (Demadex -) 40 mg PO DAILY [facility] Last Admin: 03/15/19 09:48 Dose: 40 mg Constitutional: Yes: NAD, Obese Eyes: Yes: WNL HENT: Yes: WNL Neck: Yes: WNL Cardiovascular: Yes: Regular Rate and Rhythm, S1, S2 Respiratory: Yes: Diminished Gastrointestinal: Yes: Normal Bowel Sounds, Soft Extremities: Yes: WNL Edema: Yes Labs: Laboratory Results - last 24 hr 03/15/19 03/15/19 03/15/19 11:32 16:38 21:49 WBC RBC Hgb Hct MCV MCH MCHC RDW Plt Count MPV Sodium Potassium Chloride Carbon Dioxide Anion Gap BUN Creatinine Est GFR (CKD-EPI)AfAm Est GFR (CKD-EPI)NonAf POC Glucometer 187 312 358 Random Glucose Calcium Creatine Kinase Creatine Kinase Index CK-MB (CK-2) 03/16/19 03/16/19 03/16/19 06:19 07:55 07:55 WBC 13.0 H RBC 4.14 Hgb 11.2 L Hct 34.2 L MCV 82.6 MCH 27.1 MCHC 32.8 RDW 15.8 Plt Count 256 MPV 7.6 Sodium 142 Potassium 4.2 Chloride 102 Carbon Dioxide 27 Anion Gap 13 BUN 57.2 H Creatinine 2.0 H Est GFR (CKD-EPI)AfAm 39.42 Est GFR (CKD-EPI)NonAf 34.01 POC Glucometer 222 Random Glucose 206 H Calcium 9.2 Creatine Kinase 2757 H Creatine Kinase Index 1.1 CK-MB (CK-2) 31.0 H Problem List - Problems (1) BMI 39.0-39.9,adult Code(s): Z68.39 - BODY MASS INDEX (BMI) 39.0-39.9, ADULT (2) Leg edema Code(s): R60.0 - LOCALIZED EDEMA (3) SOB (shortness of breath) Code(s): R06.02 - SHORTNESS OF BREATH (4) HTN (hypertension) Code(s): I10 - ESSENTIAL (PRIMARY) HYPERTENSION (5) Hx of heart artery stent Code(s): Z95.5 - PRESENCE OF CORONARY ANGIOPLASTY IMPLANT AND GRAFT (6) ASHD (arteriosclerotic heart disease) Code(s): I25.10 - ATHSCL HEART DISEASE OF [place] CORONARY ARTERY W/O ANG PCTRS (7) COPD (chronic obstructive pulmonary disease) Code(s): J44.9 - CHRONIC OBSTRUCTIVE PULMONARY DISEASE, UNSPECIFIED (8) Diabetes mellitus Code(s): E11.9 - TYPE 2 DIABETES MELLITUS WITHOUT COMPLICATIONS Qualifiers: Diabetes mellitus type: type 2 (9) GRACIE (obstructive sleep apnea) Code(s): G47.33 - OBSTRUCTIVE SLEEP APNEA (ADULT) (PEDIATRIC) (10) Tracheostomy in place Code(s): Z98.89 - OTHER SPECIFIED POSTPROCEDURAL STATES * DO NOT USE * (11) Obesity Code(s): E66.9 - OBESITY, UNSPECIFIED (12) Asthma Code(s): J45.909 - UNSPECIFIED ASTHMA, UNCOMPLICATED Qualifiers: Asthma severity: unspecified severity Assessment/Plan Acute COPD Exacerbation improved Acute on Chronic Diastolic Heart Failure Chronic Hypoxic Respiratory Failure Obstructive Sleep Apnea s/p Tracheostomy CAD s/p CABG HTN DM Hyperlipidemia Spinal Stenosis Chronic Pain Syndrome Opiate Dependence Acute on chronic kidney disease - prednisone - inhaled bronchodilators standing and PRN - O2 to keep Spo2 >90% - Trach care - DVT prophylaxis - No pulmonary contraindication for DC home Dr Vizcaino
[2019-03-16] MEDS: TIOTROPIUM BROMIDE 2.5 MCG (SPIRIVA) RESPIMAT INHALER IH SCH (10:47)
[2019-03-16 11:13] LABS: ALBUMIN 3.2 g/dl (3.4-5.0); BILIRUBIN,DIRECT 0.2 mg/dL (0.0-0.2); BILIRUBIN,TOTAL 0.4 mg/dL (0.2-1); TOT PROT 5.5 g/dl (6.4-8.2)
--- NOTE | 2019-03-16 11:32 | DS ---
Physical Examination Vital Signs: Vital Signs Temperature 97.7 F 03/16/19 06:00 Pulse Rate 88 03/16/19 06:00 Respiratory Rate 20 03/16/19 06:00 Blood Pressure 152/87 03/16/19 06:00 O2 Sat by Pulse Oximetry (%) 98 03/15/19 21:00 Constitutional: Yes: No Distress, Calm, Obese Eyes: Yes: Conjunctiva Clear HENT: Yes: Atraumatic Neck: Yes: Other (trach) Cardiovascular: Yes: Regular Rate and Rhythm Respiratory: Yes: Regular, CTA Bilaterally Gastrointestinal: Yes: Normal Bowel Sounds, Soft, Abdomen, Obese Musculoskeletal: Yes: Muscle Weakness Extremities: Yes: WNL Edema: Yes Edema: LLE: 1+, RLE: 1+ Neurological: Yes: Alert, Oriented Psychiatric: Yes: Alert, Oriented Labs: CBC, BMP 03/16/19 07:55 03/16/19 07:55 Discharge Summary Reason For Visit: CHRONIC OBSTRUCTIVE PULMONARY DISEASE Current Active Problems LOVE (acute kidney injury) (Acute) Abdominal pain (Acute) Anxiety (Acute) BMI 39.0-39.9,adult (Acute) COPD exacerbation (Acute) Chronic pancreatitis (Acute) Diastolic CHF (Acute) Elevated LFTs (Acute) Hyperkalemia (Acute) Leg edema (Acute) Opiate dependence (Acute) Renal insufficiency (Acute) Rhabdomyolysis (Acute) Type 2 diabetes mellitus with hyperosmolarity without nonketotic hyperglycemic- hyperosmolar coma ([facility]) (Acute) Hospital Course: Patient is a 63 y/o male with past medical history of COPD, Bronchial Asthma, Tracheostomy, CAD s/p CABG, [place] s/p stent x 6, HTN, HLD, DM on insulin pump, Chronic Pancreatitis, SBO, Incarcerated hernia repair x 2, Chronic back pain and anxiety. Patient presented to ER with worsening SOB for 2-3 weeks with productive cough with yellow phlegm x 1 week. He was also experiencing chest pain with bilateral lower extremity edema. Followed up with pulmonary while in patient and responded well to IV solumedrol and was later switched to oral steroids. Noted with elevated LFTs and adjusment to medication made which is showing downtrend. Elevated CK noted but beginning to show downtrend as well. Condition: Stable - Instructions Diet, Activity, Other Instructions: Follow up with PMD in 1 week to monitor LFTs will need to follow up with PMD and have lipid panel drawn in 4 weeks Follow up with Dr Bob for further outpatient work up of elevated LFTs Follow up with Dr Hensley to monitor renal function follow up with rehab director occupational therapist as scheduled low fiber diet return to ER if develop respiratory distress, chest pain, severe pain Referrals: Malcolm Bob DO [Staff Physician] - Magaly Hensley MD [Staff Physician] - Disposition: VNS/HOME HEALTH CARE - Home Medications Comprehensive Discharge Medication List: Ambulatory Orders Albuterol Sulfate Inhaler - [Ventolin HFA Inhaler -] 1 - 2 inh PO Q4H PRN Arformoterol Tartrate [Brovana] 15 mcg IH ASDIR 08/18/17 Aspirin [Aspirin EC] 81 mg PO DAILY 08/18/17 Clopidogrel Bisulfate [Plavix] 75 mg PO DAILY 08/18/17 Dexlansoprazole [Dexilant] 30 mg PO DAILY 08/18/17 Insulin Pump Controller [Snap Insulin Pump Controller] 1 each MC ASDIR 08/18/17 Montelukast Sodium [Singulair] 10 mg PO DAILY 08/18/17 Tiotropium [place] [Spiriva] 1 puff IH DAILY 08/18/17 Finasteride [Proscar -] 5 mg PO DAILY tablet 09/20/17 Lipase/Protease/Amylase [Stacy Hackett 36,000 Units Capsule] 1 cap PO TIDCM capsule. 09/20/17 Ramipril [Altace] 10 mg PO DAILY capsule 09/20/17 Tamsulosin HCl [Flomax -] 0.4 mg PO DAILY@0830 cap.er.24h 09/20/17 Amitriptyline HCl [Elavil -] 75 mg PO DAILY 03/30/18 Gabapentin 800 mg PO TID 03/30/18 Albuterol 0.083% Nebulizer Elena [Ventolin 0.083% Nebulizer Soln -] 1 amp NEB Q8H PRN #30 amp 07/26/18 Mometasone Furoate [Asmanex 220Mcg -] 2 puff IH BID #2 inhaler 07/26/18 Mag Hydrox/Al Hydrox/Simeth [MAALOX *SUSPENSION* -] 30 ml PO Q6H PRN #1 bottle 09/27/18 Polyethylene Glycol 3350 [Miralax 119 gm Btl -] 17 gm PO BID #1 bottle 09/27/18 Sennosides/Docusate Sodium [Senna Laxative Tablet] 1 each PO DAILY #20 tablet Chlorthalidone [Hygroton -] 25 mg PO DAILY #60 tablet 10/14/18 Rosuvastatin [Crestor -] 20 mg PO HS #30 tablet 10/14/18 Amlodipine Besylate [Norvasc -] 10 mg PO DAILY 03/01/19 Arformoterol Tartrate [Brovana] 15 mcg IH DAILY 03/01/19 Budesonide/Formeterol Fumarate [SYMBICORT 160/4.5mcg -] 1 inh PO BID 03/01/19 Diazepam 5 mg PO PRN 03/01/19 HYDROmorphone [Dilaudid -] 4 mg PO Q4H 03/01/19 Lipase/Protease/Amylase [Creon Dr 36,000 Units Capsule] 1 each PO TID 03/01/19 Mesalamine [Pentasa] 500 mg PO TID 03/01/19 Ondansetron [Zofran -] 4 mg PO TID 03/01/19 Oxycodone HCl/Acetaminophen [Oxycodone-Acetaminophen 10-325] 1 each PO BID 03/01 Prednisone 60 mg PO DAILY 03/01/19 Tapentadol ER [Nucynta ER -] 150 mg PO BID 03/01/19 Albuterol Sulfate Inhaler - [Ventolin HFA Inhaler -] 2 puff IH Q4H PRN #1 inhaler 03/16/19 Arformoterol Tartrate [Brovana -] 1 amp NEB RBID #1 pump 03/16/19 Isosorbide Mononitrate [Imdur -] 30 mg PO DAILY #30 tab.sr.24h 03/16/19 Nifedipine ER [Procardia XL -] 30 mg PO DAILY #30 tab.er.24 03/16/19 Nystatin Oral Suspension - [Nystatin Oral Susp 170635 Units/5 ML -] 500,000 units PO Q6HPO #1 bottle 03/16/19 Tiotropium [place] [Spiriva Respimat] 2 puff IH DAILY #1 inhaler 03/16/19 Torsemide [Demadex -] 40 mg PO DAILY #30 tablet 03/16/19 hydrALAZINE HCL [Apresoline -] 50 mg PO BID #60 tablet 03/16/19 metroNIDAZOLE [Flagyl -] 250 mg PO TID #21 tablet 03/16/19 predniSONE [Deltasone -] 20 mg PO DAILY #30 tablet 03/16/19
--- NOTE | 2019-03-16 12:10 | PN ---
Progress Note (short form) - Note Progress Note: Renal follow up for LOVE on CKD Pt seen and examined at the bedside awake and alert says that he is uncomfortable going home, concerned about abdominal distension denies any overt shortness of breath making urine leg swelling persists but is improved overall Vital Signs Temperature 97.7 F 03/16/19 06:00 Pulse Rate 88 03/16/19 06:00 Respiratory Rate 20 03/16/19 06:00 Blood Pressure 152/87 03/16/19 06:00 O2 Sat by Pulse Oximetry (%) 98 03/15/19 21:00 Intake & Output 03/13/19 03/14/19 03/15/19 03/16/19 23:59 23:59 23:59 23:59 Intake Total 1100 1480 1450 320 Output Total 200 Balance 1100 1280 1450 320 Weight 134.433 kg 135.227 kg 132.903 kg 135.879 kg NAD RRR CTA obese, NT/ND abd trace to 1+ LE edema CBC, BMP 03/16/19 07:55 03/16/19 07:55 Current Medications Al Hydroxide/Mg Hydroxide (Mylanta Oral Suspension -) 30 ml PO Q6H PRN PRN Reason: DYSPEPSIA Albuterol Sulfate (Ventolin 0.083% Nebulizer Soln -) 1 amp NEB Q6H PRN PRN Reason: SHORT OF BREATH/WHEEZING Last Admin: 03/12/19 23:41 Dose: 1 amp Albuterol Sulfate (Ventolin Hfa Inhaler -) 2 puff IH Q4H PRN PRN Reason: SHORT OF BREATH/WHEEZING Amitriptyline HCl (Elavil -) 75 mg PO HS [facility] Last Admin: 03/15/19 21:54 Dose: 75 mg Arformoterol Tartrate (Brovana (Restricted To Pulmonology/Resp) -) 1 amp NEB RBID [facility] Last Admin: 03/16/19 08:35 Dose: 1 amp Aspirin (Ecotrin -) 81 mg PO DAILY [facility] Last Admin: 03/16/19 10:42 Dose: 81 mg Clopidogrel Bisulfate (Plavix -) 75 mg PO DAILY [facility] Last Admin: 03/16/19 10:44 Dose: 75 mg Finasteride (Proscar -) 5 mg PO DAILY [facility] Last Admin: 03/16/19 10:45 Dose: 5 mg Gabapentin (Neurontin -) 800 mg PO BID [facility] Heparin Sodium (Porcine) (Heparin -) 5,000 unit SQ TID [facility] Last Admin: 03/16/19 06:21 Dose: 5,000 unit Hydralazine HCl (Apresoline -) 50 mg PO BID [facility] Last Admin: 03/16/19 10:39 Dose: 50 mg Hydromorphone HCl (Dilaudid Vial -) 2 mg IM Q4H PRN PRN Reason: PAIN LEVEL 6-10 Last Admin: 03/16/19 11:46 Dose: 2 mg Insulin Aspart (Novolog Vial Sliding Scale -) 1 vial SQ ACHS [facility]; Protocol Last Admin: 03/16/19 11:56 Dose: Not Given Isosorbide Mononitrate (Imdur -) 30 mg PO DAILY [facility] Last Admin: 03/16/19 10:43 Dose: 30 mg Methylnaltrexone [place] (Relistor -) 12 mg SQ DAILY [facility] Last Admin: 03/15/19 21:58 Dose: 12 mg Metronidazole (Flagyl -) 250 mg PO TID [facility] Last Admin: 03/16/19 06:30 Dose: 250 mg Montelukast Sodium (Singulair -) 10 mg PO HS [facility] Last Admin: 03/15/19 21:53 Dose: 10 mg Nifedipine (Procardia Xl -) 30 mg PO DAILY [facility] Last Admin: 03/16/19 10:44 Dose: 30 mg Nystatin (Nystatin Oral Suspension -) 500,000 units PO Q6HPO [facility] Last Admin: 03/16/19 06:22 Dose: 500,000 units Oxycodone HCl (Roxicodone -) 10 mg PO BID [facility] Last Admin: 03/16/19 10:45 Dose: 10 mg Pancrelipase (Creon Dr 36,000 Units Capsule) 1 cap PO TIDCM [facility] Last Admin: 03/16/19 08:38 Dose: 1 cap Pantoprazole Sodium (Protonix -) 20 mg PO DAILY [facility] Last Admin: 03/16/19 10:45 Dose: 20 mg Polyethylene Glycol (Miralax (For Daily Use) -) 17 gm PO BID [facility] Last Admin: 03/16/19 10:43 Dose: 17 gm Prednisone (Deltasone -) 20 mg PO BID [facility] Last Admin: 03/16/19 10:40 Dose: 20 mg Rosuvastatin Calcium (Crestor -) 20 mg PO HS [facility] Last Admin: 03/15/19 21:53 Dose: 20 mg Senna/Docusate Sodium (Pericolace -) 1 tablet PO DAILY [facility] Last Admin: 03/16/19 10:43 Dose: 1 tablet Tamsulosin HCl (Flomax -) 0.4 mg PO DAILY@0830 [facility] Last Admin: 03/16/19 08:38 Dose: 0.4 mg Tiotropium [place] (Spiriva Respimat) 2 puff IH DAILY [facility] Last Admin: 03/16/19 10:47 Dose: 2 puff Torsemide (Demadex -) 40 mg PO DAILY [facility] Last Admin: 03/16/19 10:41 Dose: 40 mg 63 year old gentleman with history of hypertension, DM, hyperlipidemia, GRACIE s/ p trach, CAD s/p CABG, CHF with diastolic dysfunction who presented with worsening SOB and admitted for CHF + COPD exacerbation with Cr of 2. 1. Acute kidney injury secondary renal hypoprofusion in setting of cardiac dysfunction 2. CHF with diastolic dysfunction 3. COPD 4. Chronic GRACIE 5. CAD s/p CABG 6. DM 7. Hyperlipidemia Renal function essentially stable no electrolyte or acid base disturbance Continue torsemide 40mg daily, can be adjusted further as a outptient Withhold LETI/ARB for now as Cr is above baseline taper steroids as per cardiology stable for discharge from renal perspective with outpatient follow up Thank you Az Nelson DO
[2019-03-16] MEDS: Methylnaltrexone Bromide 12 MG/0.6 ML KIT SQ SCH (17:52)
[2019-03-16] MEDS ORDERED: INSULIN (NOVOLOG) ASPART 100 UNITS/ML 10ML VIAL ONE (19:05)
[2019-03-16] MEDS: MONTELUKAST NA 10 MG TABLET PO SCH (21:49)
[2019-03-16] MEDS: AMITRIPTYLINE HCL 75 MG TABLET PO SCH (21:50)
[2019-03-16] MEDS: ROSUVASTATIN CA 20 MG TABLET (FP) PO SCH (21:50)
[2019-03-17] MEDS: NYSTATIN 500,000 UNITS/5 ML SUSPENSION PO SCH ×4 (00:45→17:36)
[2019-03-17] MEDS: HYDROmorphone HCl 2 MG/ML VIAL IM PRN ×5 (01:53→21:16)
[2019-03-17] MEDS: metroNIDAZOLE 250 MG TABLET PO SCH ×3 (06:03→21:08)
[2019-03-17] MEDS: HEPARIN NA (PORCINE) 5,000 UNITS/ML 1ML VIAL SQ SCH ×3 (06:03→21:07)
[2019-03-17] MEDS: INSULIN SLIDING SCALE (NOVOLOG) 1 VIAL SQ SCH ×4 (06:07→21:17)
[2019-03-17] MEDS: ARFORMOTEROL TARTRATE 15 MCG/2 ML VIAL NEB SCH ×2 (07:35→20:13)
[2019-03-17] MEDS: LIPASE/PROTEASE/AMYLASE 36,000 UNIT CAPSULE PO SCH ×3 (10:36→17:36)
[2019-03-17] MEDS: hydrALAZINE HCL 25 MG TABLET (FP) PO SCH ×2 (10:37→21:08)
[2019-03-17] MEDS: TORSEMIDE 20 MG TABLET (FP) PO SCH (10:37)
[2019-03-17] MEDS: TAMSULOSIN HCL 0.4 MG CAP PO SCH (10:37)
[2019-03-17] MEDS: FINASTERIDE 5 MG TABLET (FP) PO SCH (10:37)
[2019-03-17] MEDS: CLOPIDOGREL BISULFATE 75 MG TABLET (FP) PO SCH (10:38)
[2019-03-17] MEDS: predniSONE 20 MG TABLET (UD) PO SCH ×2 (10:38→21:08)
[2019-03-17] MEDS: NIFEdipine E.R. 30 MG TABLET (FP) PO SCH (10:38)
[2019-03-17] MEDS: PANTOPRAZOLE 20 MG TABLET (FP) PO SCH (10:38)
[2019-03-17] MEDS: ISOSORBIDE MONONITRATE 30 MG TAB.SR.24H (FP) PO SCH (10:38)
[2019-03-17] MEDS: ASPIRIN COATED 81 MG TABLET.EC PO SCH (10:38)
[2019-03-17] MEDS: oxyCODONE HCL 5 MG TABLET PO SCH ×2 (10:39→23:07)
[2019-03-17] MEDS: GABAPENTIN 400 MG CAPSULE (FP) PO SCH ×2 (10:39→21:08)
[2019-03-17] MEDS: SENNOSIDES/DOCUSATE COMBO (SENNA PLUS) TABLET (UD) PO SCH (10:39)
[2019-03-17] MEDS: POLYETHYLENE GLYCOL 3350 119 GM BTL PO SCH ×2 (10:43→21:16)
[2019-03-17] MEDS: TIOTROPIUM BROMIDE 2.5 MCG (SPIRIVA) RESPIMAT INHALER IH SCH (10:44)
--- NOTE | 2019-03-17 12:08 | PN ---
Progress Note, Physician Chief Complaint: patient seen and examined ambulating in hallway with two people complaining of abdominal pin CPK elevated - Current Medication List Current Medications: Active Medications Al Hydroxide/Mg Hydroxide (Mylanta Oral Suspension -) 30 ml PO Q6H PRN PRN Reason: DYSPEPSIA Albuterol Sulfate (Ventolin 0.083% Nebulizer Soln -) 1 amp NEB Q6H PRN PRN Reason: SHORT OF BREATH/WHEEZING Last Admin: 03/12/19 23:41 Dose: 1 amp Albuterol Sulfate (Ventolin Hfa Inhaler -) 2 puff IH Q4H PRN PRN Reason: SHORT OF BREATH/WHEEZING Amitriptyline HCl (Elavil -) 75 mg PO HS [facility] Last Admin: 03/16/19 21:50 Dose: 75 mg Arformoterol Tartrate (Brovana (Restricted To Pulmonology/Resp) -) 1 amp NEB RBID [facility] Last Admin: 03/17/19 07:35 Dose: 1 amp Aspirin (Ecotrin -) 81 mg PO DAILY [facility] Last Admin: 03/17/19 10:38 Dose: 81 mg Clopidogrel Bisulfate (Plavix -) 75 mg PO DAILY [facility] Last Admin: 03/17/19 10:38 Dose: 75 mg Finasteride (Proscar -) 5 mg PO DAILY [facility] Last Admin: 03/17/19 10:37 Dose: 5 mg Gabapentin (Neurontin -) 800 mg PO BID [facility] Last Admin: 03/17/19 10:39 Dose: 800 mg Heparin Sodium (Porcine) (Heparin -) 5,000 unit SQ TID [facility] Last Admin: 03/17/19 06:03 Dose: 5,000 unit Hydralazine HCl (Apresoline -) 50 mg PO BID [facility] Last Admin: 03/17/19 10:37 Dose: 50 mg Hydromorphone HCl (Dilaudid Vial -) 2 mg IM Q4H PRN PRN Reason: PAIN LEVEL 6-10 Last Admin: 03/17/19 10:35 Dose: 2 mg Insulin Aspart (Novolog Vial Sliding Scale -) 1 vial SQ [facility]; Protocol Last Admin: 03/17/19 11:19 Dose: Not Given Isosorbide Mononitrate (Imdur -) 30 mg PO DAILY [facility] Last Admin: 03/17/19 10:38 Dose: 30 mg Methylnaltrexone [place] (Relistor -) 12 mg SQ DAILY [facility] Last Admin: 03/16/19 17:52 Dose: 12 mg Metronidazole (Flagyl -) 250 mg PO TID [facility] Last Admin: 03/17/19 06:03 Dose: 250 mg Montelukast Sodium (Singulair -) 10 mg PO HS [facility] Last Admin: 03/16/19 21:49 Dose: 10 mg Nifedipine (Procardia Xl -) 30 mg PO DAILY [facility] Last Admin: 03/17/19 10:38 Dose: 30 mg Nystatin (Nystatin Oral Suspension -) 500,000 units PO Q6HPO [facility] Last Admin: 03/17/19 06:03 Dose: 500,000 units Oxycodone HCl (Roxicodone -) 10 mg PO BID [facility] Last Admin: 03/17/19 10:39 Dose: 10 mg Pancrelipase (Creon Dr 36,000 Units Capsule) 1 cap PO TIDCM [facility] Last Admin: 03/17/19 10:36 Dose: 1 cap Pantoprazole Sodium (Protonix -) 20 mg PO DAILY [facility] Last Admin: 03/17/19 10:38 Dose: 20 mg Polyethylene Glycol (Miralax (For Daily Use) -) 17 gm PO BID [facility] Last Admin: 03/17/19 10:43 Dose: Not Given Prednisone (Deltasone -) 20 mg PO BID [facility] Last Admin: 03/17/19 10:38 Dose: 20 mg Rosuvastatin Calcium (Crestor -) 20 mg PO HS [facility] Last Admin: 03/16/19 21:50 Dose: 20 mg Senna/Docusate Sodium (Pericolace -) 1 tablet PO DAILY [facility] Last Admin: 03/17/19 10:39 Dose: 1 tablet Tamsulosin HCl (Flomax -) 0.4 mg PO DAILY@0830 [facility] Last Admin: 03/17/19 10:37 Dose: 0.4 mg Tiotropium [place] (Spiriva Respimat) 2 puff IH DAILY [facility] Last Admin: 03/17/19 10:44 Dose: 2 puff Torsemide (Demadex -) 40 mg PO DAILY [facility] Last Admin: 03/17/19 10:37 Dose: 40 mg - Objective Vital Signs: Vital Signs Temperature 98 F 03/17/19 10:00 Pulse Rate 111 H 03/17/19 10:00 Respiratory Rate 20 03/17/19 10:00 Blood Pressure 160/93 03/17/19 10:00 O2 Sat by Pulse Oximetry (%) 99 03/17/19 09:00 Constitutional: Yes: Calm Cardiovascular: Yes: Regular Rate and Rhythm, S1, S2 Respiratory: Yes: CTA Bilaterally Gastrointestinal: Yes: Soft Labs: CBC, BMP 03/16/19 07:55 Problem List - Problems (1) COPD (chronic obstructive pulmonary disease) Assessment/Plan: inhaled bronchodilators oxygen keep O2>90 prednisone bod Code(s): J44.9 - CHRONIC OBSTRUCTIVE PULMONARY DISEASE, UNSPECIFIED (2) Intractable low back pain Assessment/Plan: oxicodone and dilaudid on neurontin Code(s): M54.5 - LOW BACK PAIN (3) ASHD (arteriosclerotic heart disease) Assessment/Plan: needs to be on statin to keep ldl< 70 monitor CK on finasteride stop zetia Code(s): I25.10 - ATHSCL HEART DISEASE OF [place] CORONARY ARTERY W/O ANG PCTRS (4) Leg edema Assessment/Plan: torsemide Code(s): R60.0 - LOCALIZED EDEMA (5) Diabetes mellitus Assessment/Plan: insulin pump Code(s): E11.9 - TYPE 2 DIABETES MELLITUS WITHOUT COMPLICATIONS Qualifiers: Diabetes mellitus type: type 2 (6) LOVE (acute kidney injury) Assessment/Plan: creatinine now at 2.0 renal on board hold beatrice/arb Code(s): N17.9 - ACUTE KIDNEY FAILURE, UNSPECIFIED (7) Elevated LFTs Assessment/Plan: repat bmp today CK elevated as well Code(s): R94.5 - ABNORMAL RESULTS OF LIVER FUNCTION STUDIES
[2019-03-17] MEDS: Methylnaltrexone Bromide 12 MG/0.6 ML KIT SQ SCH (12:16)
[2019-03-17 12:22] LABS: ALBUMIN 3.5 g/dl (3.4-5.0); BILIRUBIN,TOTAL 0.5 mg/dL (0.2-1); BLOOD UREA NITROGEN 53.9 mg/dL (7-18); CALCIUM 9.1 mg/dL (8.5-10.1); CREATININE 1.8 mg/dL (0.55-1.3); POTASSIUM 4.7 mmol/L (3.5-5.1); TOT PROT 6.1 g/dl (6.4-8.2)
[2019-03-17] MEDS ORDERED: ROSUVASTATIN CA 5 MG TABLET (FP) PO SCH (13:00)
[2019-03-17 13:37] VITALS: BMI 38.5
--- NOTE | 2019-03-17 14:31 | PN ---
Progress Note (short form) - Note Progress Note: PULMONARY Improved VSS/Afebrile Gen: NAD in chair Heart: RRR Lung: distant b/l breath sounds Abd: soft, nontender Ext: + edema Active Medications/notes/images/ reviewed A/P Acute COPD Exacerbation improved Acute on Chronic Diastolic Heart Failure Chronic Hypoxic Respiratory Failure Obstructive Sleep Apnea s/p Tracheostomy CAD s/p CABG HTN DM Hyperlipidemia Spinal Stenosis Chronic Pain Syndrome Opiate Dependence Acute on chronic kidney disease - pred taper as an outpatient - inhaled bronchodilators standing and PRN - O2 to keep Spo2 >90% - glucose control while on systemic steroids - monitor urine output, creatinine - uncap tracheostomy when sleeping - pain control - DVT prophylaxis - No objection to discharge Christian NOEL MD
--- NOTE | 2019-03-17 15:58 | PN ---
Progress Note (short form) - Note Progress Note: Renal follow up for LOVE on CKD Pt seen and examined at the bedside awake and alert feels better no overt SOB at rest leg swelling improving making a lot of urine Vital Signs Temperature 98 F 03/17/19 10:00 Pulse Rate 111 H 03/17/19 10:00 Respiratory Rate 20 03/17/19 10:00 Blood Pressure 160/93 03/17/19 10:00 O2 Sat by Pulse Oximetry (%) 99 03/17/19 09:00 Intake & Output 03/14/19 03/15/19 03/16/19 03/17/19 23:59 23:59 23:59 23:59 Intake Total 1480 1450 1989 82 Output Total 200 Balance 1280 1450 1989 82 Weight 135.227 kg 132.903 kg 135.879 kg 132.449 kg NAD RRR CTA obese, NT/ND abd trace to 1+ LE edema CBC, BMP 03/16/19 07:55 03/17/19 11:35 Current Medications Al Hydroxide/Mg Hydroxide (Mylanta Oral Suspension -) 30 ml PO Q6H PRN PRN Reason: DYSPEPSIA Albuterol Sulfate (Ventolin 0.083% Nebulizer Soln -) 1 amp NEB Q6H PRN PRN Reason: SHORT OF BREATH/WHEEZING Last Admin: 03/12/19 23:41 Dose: 1 amp Albuterol Sulfate (Ventolin Hfa Inhaler -) 2 puff IH Q4H PRN PRN Reason: SHORT OF BREATH/WHEEZING Amitriptyline HCl (Elavil -) 75 mg PO HS [facility] Last Admin: 03/16/19 21:50 Dose: 75 mg Arformoterol Tartrate (Brovana (Restricted To Pulmonology/Resp) -) 1 amp NEB RBID [facility] Last Admin: 03/17/19 07:35 Dose: 1 amp Aspirin (Ecotrin -) 81 mg PO DAILY [facility] Last Admin: 03/17/19 10:38 Dose: 81 mg Clopidogrel Bisulfate (Plavix -) 75 mg PO DAILY [facility] Last Admin: 03/17/19 10:38 Dose: 75 mg Gabapentin (Neurontin -) 800 mg PO BID [facility] Last Admin: 03/17/19 10:39 Dose: 800 mg Heparin Sodium (Porcine) (Heparin -) 5,000 unit SQ TID [facility] Last Admin: 03/17/19 13:27 Dose: 5,000 unit Hydralazine HCl (Apresoline -) 50 mg PO BID [facility] Last Admin: 03/17/19 10:37 Dose: 50 mg Hydromorphone HCl (Dilaudid Vial -) 2 mg IM Q4H PRN PRN Reason: PAIN LEVEL 6-10 Last Admin: 03/17/19 15:43 Dose: 2 mg Insulin Aspart (Novolog Vial Sliding Scale -) 1 vial SQ ACHS [facility]; Protocol Last Admin: 03/17/19 11:19 Dose: Not Given Isosorbide Mononitrate (Imdur -) 30 mg PO DAILY [facility] Last Admin: 03/17/19 10:38 Dose: 30 mg Methylnaltrexone [place] (Relistor -) 12 mg SQ DAILY [facility] Last Admin: 03/17/19 12:16 Dose: 12 mg Metronidazole (Flagyl -) 250 mg PO TID [facility] Last Admin: 03/17/19 13:27 Dose: 250 mg Montelukast Sodium (Singulair -) 10 mg PO [facility] Last Admin: 03/16/19 21:49 Dose: 10 mg Nifedipine (Procardia Xl -) 30 mg PO DAILY [facility] Last Admin: 03/17/19 10:38 Dose: 30 mg Nystatin (Nystatin Oral Suspension -) 500,000 units PO Q6HPO [facility] Last Admin: 03/17/19 12:16 Dose: 500,000 units Oxycodone HCl (Roxicodone -) 10 mg PO BID [facility] Last Admin: 03/17/19 10:39 Dose: 10 mg Pancrelipase (Creon Dr 36,000 Units Capsule) 1 cap PO TIDCM [facility] Last Admin: 03/17/19 13:28 Dose: 1 cap Pantoprazole Sodium (Protonix -) 20 mg PO DAILY [facility] Last Admin: 03/17/19 10:38 Dose: 20 mg Polyethylene Glycol (Miralax (For Daily Use) -) 17 gm PO BID [facility] Last Admin: 03/17/19 10:43 Dose: Not Given Prednisone (Deltasone -) 20 mg PO BID [facility] Last Admin: 03/17/19 10:38 Dose: 20 mg Rosuvastatin Calcium (Crestor -) 5 mg PO [facility] Senna/Docusate Sodium (Pericolace -) 1 tablet PO DAILY [facility] Last Admin: 03/17/19 10:39 Dose: 1 tablet Tamsulosin HCl (Flomax -) 0.4 mg PO DAILY@0830 [facility] Last Admin: 03/17/19 10:37 Dose: 0.4 mg Tiotropium [place] (Spiriva Respimat) 2 puff IH DAILY [facility] Last Admin: 03/17/19 10:44 Dose: 2 puff Torsemide (Demadex -) 40 mg PO DAILY [facility] Last Admin: 03/17/19 10:37 Dose: 40 mg 63 year old gentleman with history of hypertension, DM, hyperlipidemia, GRACIE s/ p trach, CAD s/p CABG, CHF with diastolic dysfunction who presented with worsening SOB and admitted for CHF + COPD exacerbation with Cr of 2. 1. Acute kidney injury secondary renal hypoprofusion in setting of cardiac dysfunction 2. CHF with diastolic dysfunction 3. COPD 4. Chronic GRACIE 5. CAD s/p CABG 6. DM 7. Hyperlipidemia Renal function improving toward baseline no electrolyte or acid base disturbance Continue torsemide 40mg daily, can be adjusted further as a outptient. Weights improving. Withhold LETI/ARB for now as Cr is above baseline taper steroids as per cardiology stable for discharge from renal perspective with outpatient follow up office contact information provided Thank you Az Nelson DO
[2019-03-17] MEDS: AMITRIPTYLINE HCL 75 MG TABLET PO SCH (21:08)
[2019-03-17] MEDS: MONTELUKAST NA 10 MG TABLET PO SCH (21:08)
[2019-03-18] MEDS: ALBUTEROL SO4 0.083% IH SOL 2.5 MG/3 ML VIAL.NEB. NEB PRN (00:25)
[2019-03-18] MEDS: NYSTATIN 500,000 UNITS/5 ML SUSPENSION PO SCH ×2 (00:30→05:58)
[2019-03-18] MEDS: HYDROmorphone HCl 2 MG/ML VIAL IM PRN ×3 (02:09→10:00)
[2019-03-18] MEDS: metroNIDAZOLE 250 MG TABLET PO SCH (05:58)
[2019-03-18] MEDS: HEPARIN NA (PORCINE) 5,000 UNITS/ML 1ML VIAL SQ SCH (05:59)
[2019-03-18] MEDS: INSULIN SLIDING SCALE (NOVOLOG) 1 VIAL SQ SCH (05:59)
--- NOTE | 2019-03-18 06:04 | PN ---
Progress Note, Physician Chief Complaint: Pt A&Ox3; OOB in [place]; no chest pain. History of Present Illness: 63 year old black man with a significant past medical history of CAD s/p VT, stents x6 (most recently 12/2015), CABG, HTN, diastolic CHF, HLD, Chronic Pancreatitis, Chronic Back pain, SBO, Incarcerated Hernia s/p repair x2 (September 2017), H.Pylori, BPH, COPD, Bronchial Asthma, Tracheostomy in place (unplugs when sleeping for GRACIE),and opiod dependence, anxiety, who presents with worsening shortness of breath for 2-3 weeks, 1 week of productive cough of yellow phlegm and 2-3 days of chest pain and bilateral leg swelling. He reports his chest pain is L sided pressure like 5-6/10 intermittent radiating to the side and back. He admits to lightheadedness but denies nausea or diaphoresis. He staties that he has taken prednisone 60mg everday for 3 days and doubled his lasix to 80mg a day for 4 days. He reports his symptoms feel like a CHF exacerbation. He took albuterol and breathing treatment prior to arrival. He has no other complaints at bedside. As discussed with his assistant head cashier, Dr. Bola Elaine, today, he has had multiple admissions for chest pain since the last coronary stent; these have been negative for VT. (07/[address] [facility] : small, mild periinfarct inferior wall ischemia; pt may have had a more recent stress MIBI or angiogram as an outpatient). - Current Medication List Current Medications: Active Medications Al Hydroxide/Mg Hydroxide (Mylanta Oral Suspension -) 30 ml PO Q6H PRN PRN Reason: DYSPEPSIA Albuterol Sulfate (Ventolin Hfa Inhaler -) 2 puff IH Q4H PRN PRN Reason: SHORT OF BREATH/WHEEZING Amitriptyline HCl (Elavil -) 75 mg PO HS [facility] Last Admin: 03/17/19 21:08 Dose: 75 mg Arformoterol Tartrate (Brovana (Restricted To Pulmonology/Resp) -) 1 amp NEB RBID [facility] Last Admin: 03/17/19 20:13 Dose: 1 amp Aspirin (Ecotrin -) 81 mg PO DAILY [facility] Last Admin: 03/17/19 10:38 Dose: 81 mg Clopidogrel Bisulfate (Plavix -) 75 mg PO DAILY [facility] Last Admin: 03/17/19 10:38 Dose: 75 mg Gabapentin (Neurontin -) 800 mg PO BID [facility] Last Admin: 03/17/19 21:08 Dose: 800 mg Heparin Sodium (Porcine) (Heparin -) 5,000 unit SQ TID [facility] Last Admin: 03/18/19 05:59 Dose: 5,000 unit Hydralazine HCl (Apresoline -) 50 mg PO BID [facility] Last Admin: 03/17/19 21:08 Dose: 50 mg Hydromorphone HCl (Dilaudid Vial -) 2 mg IM Q4H PRN PRN Reason: PAIN LEVEL 6-10 Last Admin: 03/18/19 05:58 Dose: 2 mg Insulin Aspart (Novolog Vial Sliding Scale -) 1 vial SQ ACHS [facility]; Protocol Last Admin: 03/18/19 05:59 Dose: Not Given Isosorbide Mononitrate (Imdur -) 30 mg PO DAILY [facility] Last Admin: 03/17/19 10:38 Dose: 30 mg Methylnaltrexone [place] (Relistor -) 12 mg SQ DAILY [facility] Last Admin: 03/17/19 12:16 Dose: 12 mg Metronidazole (Flagyl -) 250 mg PO TID [facility] Last Admin: 03/18/19 05:58 Dose: 250 mg Montelukast Sodium (Singulair -) 10 mg PO HS [facility] Last Admin: 03/17/19 21:08 Dose: 10 mg Nifedipine (Procardia Xl -) 30 mg PO DAILY [facility] Last Admin: 03/17/19 10:38 Dose: 30 mg Nystatin (Nystatin Oral Suspension -) 500,000 units PO Q6HPO [facility] Last Admin: 03/18/19 05:58 Dose: 500,000 units Oxycodone HCl (Roxicodone -) 10 mg PO BID [facility] Last Admin: 03/17/19 23:07 Dose: 10 mg Pancrelipase (Creon Dr 36,000 Units Capsule) 1 cap PO TIDCM [facility] Last Admin: 03/17/19 17:36 Dose: 1 cap Pantoprazole Sodium (Protonix -) 20 mg PO DAILY [facility] Last Admin: 03/17/19 10:38 Dose: 20 mg Polyethylene Glycol (Miralax (For Daily Use) -) 17 gm PO BID [facility] Last Admin: 03/17/19 21:16 Dose: Not Given Prednisone (Deltasone -) 20 mg PO BID [facility] Last Admin: 03/17/19 21:08 Dose: 20 mg Rosuvastatin Calcium (Crestor -) 5 mg PO HS [facility] Last Admin: 03/17/19 21:08 Dose: 5 mg Senna/Docusate Sodium (Pericolace -) 1 tablet PO DAILY [facility] Last Admin: 03/17/19 10:39 Dose: 1 tablet Tamsulosin HCl (Flomax -) 0.4 mg PO DAILY@0830 [facility] Last Admin: 03/17/19 10:37 Dose: 0.4 mg Tiotropium [place] (Spiriva Respimat) 2 puff IH DAILY [facility] Last Admin: 03/17/19 10:44 Dose: 2 puff Torsemide (Demadex -) 40 mg PO DAILY [facility] Last Admin: 03/17/19 10:37 Dose: 40 mg - Objective Vital Signs: Vital Signs Temperature 97.6 F 03/18/19 02:00 Pulse Rate 82 03/18/19 02:00 Respiratory Rate 20 03/18/19 02:00 Blood Pressure 152/99 03/18/19 02:00 O2 Sat by Pulse Oximetry (%) 99 03/17/19 21:00 Labs: CBC, BMP 03/16/19 07:55 03/17/19 11:35 Problem List - Problems (1) BMI 39.0-39.9,adult Code(s): Z68.39 - BODY MASS INDEX (BMI) 39.0-39.9, ADULT (2) Leg edema Code(s): R60.0 - LOCALIZED EDEMA (3) Diastolic CHF Code(s): I50.30 - UNSPECIFIED DIASTOLIC (CONGESTIVE) HEART FAILURE (4) Anxiety Code(s): F41.9 - ANXIETY DISORDER, UNSPECIFIED (5) Opiate dependence Code(s): F11.20 - OPIOID DEPENDENCE, UNCOMPLICATED (6) Renal insufficiency Code(s): N28.9 - DISORDER OF KIDNEY AND URETER, UNSPECIFIED (7) HTN (hypertension) Code(s): I10 - ESSENTIAL (PRIMARY) HYPERTENSION (8) Hyperlipidemia Code(s): E78.5 - HYPERLIPIDEMIA, UNSPECIFIED (9) Hx of heart artery stent Code(s): Z95.5 - PRESENCE OF CORONARY ANGIOPLASTY IMPLANT AND GRAFT (10) COPD exacerbation Code(s): J44.1 - CHRONIC OBSTRUCTIVE PULMONARY DISEASE W (ACUTE) EXACERBATION (11) Atypical chest pain Code(s): R07.89 - OTHER CHEST PAIN
[2019-03-18] MEDS: ARFORMOTEROL TARTRATE 15 MCG/2 ML VIAL NEB SCH (07:25)
[2019-03-18] MEDS ORDERED: PT OWN MED DRAWER 7, Y5N ONE (07:52)
[2019-03-18] MEDS: GABAPENTIN 400 MG CAPSULE (FP) PO SCH (09:11)
[2019-03-18] MEDS: TAMSULOSIN HCL 0.4 MG CAP PO SCH (09:11)
[2019-03-18] MEDS: oxyCODONE HCL 5 MG TABLET PO SCH (09:12)
[2019-03-18] MEDS: hydrALAZINE HCL 25 MG TABLET (FP) PO SCH (09:13)
[2019-03-18] MEDS: predniSONE 20 MG TABLET (UD) PO SCH (09:13)
[2019-03-18] MEDS: NIFEdipine E.R. 30 MG TABLET (FP) PO SCH (09:13)
[2019-03-18] MEDS: PANTOPRAZOLE 20 MG TABLET (FP) PO SCH (09:14)
[2019-03-18] MEDS: ASPIRIN COATED 81 MG TABLET.EC PO SCH (09:14)
[2019-03-18] MEDS: TORSEMIDE 20 MG TABLET (FP) PO SCH (09:14)
[2019-03-18] MEDS: ISOSORBIDE MONONITRATE 30 MG TAB.SR.24H (FP) PO SCH (09:14)
[2019-03-18] MEDS: TIOTROPIUM BROMIDE 2.5 MCG (SPIRIVA) RESPIMAT INHALER IH SCH (09:15)
[2019-03-18] MEDS: SENNOSIDES/DOCUSATE COMBO (SENNA PLUS) TABLET (UD) PO SCH (09:15)
[2019-03-18] MEDS: CLOPIDOGREL BISULFATE 75 MG TABLET (FP) PO SCH (09:15)
[2019-03-18] MEDS ORDERED: NIFEdipine E.R. 30 MG TABLET (FP) PO SCH (09:43)
[2019-03-18] MEDS: LIPASE/PROTEASE/AMYLASE 36,000 UNIT CAPSULE PO SCH (10:38)
[2019-03-18] MEDS: POLYETHYLENE GLYCOL 3350 119 GM BTL PO SCH (10:40)
[2019-03-18] MEDS: Methylnaltrexone Bromide 12 MG/0.6 ML KIT SQ SCH (10:40)
--- NOTE | 2019-03-18 11:17 | DS ---
Physical Examination Vital Signs: Vital Signs Temperature 97.6 F 03/18/19 06:00 Pulse Rate 82 03/18/19 06:00 Respiratory Rate 20 03/18/19 06:00 Blood Pressure 152/99 03/18/19 06:00 O2 Sat by Pulse Oximetry (%) 99 03/17/19 21:00 Cardiovascular: Yes: S1, S2 Respiratory: Yes: Regular, CTA Bilaterally Gastrointestinal: Yes: Normal Bowel Sounds, Soft Labs: CBC, BMP 03/16/19 07:55 03/17/19 11:35 Discharge Summary Reason For Visit: CHRONIC OBSTRUCTIVE PULMONARY DISEASE Current Active Problems LOVE (acute kidney injury) (Acute) Abdominal pain (Acute) Anxiety (Acute) BMI 39.0-39.9,adult (Acute) COPD exacerbation (Acute) Chronic pancreatitis (Acute) Diastolic CHF (Acute) Elevated LFTs (Acute) Hyperkalemia (Acute) Leg edema (Acute) Opiate dependence (Acute) Renal insufficiency (Acute) Rhabdomyolysis (Acute) Type 2 diabetes mellitus with hyperosmolarity without nonketotic hyperglycemic- hyperosmolar coma ([facility]) (Acute) Hospital Course: - Problems (1) COPD (chronic obstructive pulmonary disease) Assessment/Plan: inhaled bronchodilators oxygen keep O2>90 prednisone bod Code(s): J44.9 - CHRONIC OBSTRUCTIVE PULMONARY DISEASE, UNSPECIFIED (2) Intractable low back pain Assessment/Plan: oxicodone and dilaudid on neurontin Code(s): M54.5 - LOW BACK PAIN (3) ASHD (arteriosclerotic heart disease) Assessment/Plan: needs to be on statin to keep ldl< 70 monitor CK on finasteride stop zetia Code(s): I25.10 - ATHSCL HEART DISEASE OF [place] CORONARY ARTERY W/O ANG PCTRS (4) Leg edema Assessment/Plan: torsemide Code(s): R60.0 - LOCALIZED EDEMA (5) Diabetes mellitus Assessment/Plan: insulin pump Code(s): E11.9 - TYPE 2 DIABETES MELLITUS WITHOUT COMPLICATIONS Qualifiers: Diabetes mellitus type: type 2 (6) LOVE (acute kidney injury) Assessment/Plan: creatinine now at 2.0 renal on board hold beatrice/arb Code(s): N17.9 - ACUTE KIDNEY FAILURE, UNSPECIFIED (7) Elevated LFTs Assessment/Plan: repat bmp today CK elevated as well--improved Code(s): R94.5 - ABNORMAL RESULTS OF LIVER FUNCTION STUDIES (8) HTN Assessment/Plan: Increase adalat 60--d/w pt follow up this week with pmd Condition: Stable - Instructions Diet, Activity, Other Instructions: Follow up with PMD in 1 week to monitor LFTs will need to follow up with PMD and have lipid panel drawn in 4 weeks Follow up with Dr Bob for further outpatient work up of elevated LFTs Follow up with Dr Hensley to monitor renal function follow up with hand zipper trimmer as scheduled low fiber diet return to ER if develop respiratory distress, chest pain, severe pain Referrals: Malcolm Bob DO [Staff Physician] - Magaly Hensley MD [Staff Physician] - Disposition: VNS/HOME HEALTH CARE - Home Medications Comprehensive Discharge Medication List: Ambulatory Orders Albuterol Sulfate Inhaler - [Ventolin HFA Inhaler -] 1 - 2 inh PO Q4H PRN Arformoterol Tartrate [Brovana] 15 mcg IH ASDIR 08/18/17 Aspirin [Aspirin EC] 81 mg PO DAILY 08/18/17 Clopidogrel Bisulfate [Plavix] 75 mg PO DAILY 08/18/17 Dexlansoprazole [Dexilant] 30 mg PO DAILY 08/18/17 Insulin Pump Controller [Snap Insulin Pump Controller] 1 each MC ASDIR 08/18/17 Montelukast Sodium [Singulair] 10 mg PO DAILY 08/18/17 Tiotropium [place] [Spiriva] 1 puff IH DAILY 08/18/17 Finasteride [Proscar -] 5 mg PO DAILY tablet 09/20/17 Lipase/Protease/Amylase [Stacy Hackett 36,000 Units Capsule] 1 cap PO TIDCM capsule. 09/20/17 Ramipril [Altace] 10 mg PO DAILY capsule 09/20/17 Tamsulosin HCl [Flomax -] 0.4 mg PO DAILY@0830 cap.er.24h 09/20/17 Amitriptyline HCl [Elavil -] 75 mg PO DAILY 03/30/18 Gabapentin 800 mg PO TID 03/30/18 Albuterol 0.083% Nebulizer Elena [Ventolin 0.083% Nebulizer Soln -] 1 amp NEB Q8H PRN #30 amp 07/26/18 Mometasone Furoate [Asmanex 220Mcg -] 2 puff IH BID #2 inhaler 07/26/18 Mag Hydrox/Al Hydrox/Simeth [MAALOX *SUSPENSION* -] 30 ml PO Q6H PRN #1 bottle 09/27/18 Polyethylene Glycol 3350 [Miralax 119 gm Btl -] 17 gm PO BID #1 bottle 09/27/18 Sennosides/Docusate Sodium [Senna Laxative Tablet] 1 each PO DAILY #20 tablet Chlorthalidone [Hygroton -] 25 mg PO DAILY #60 tablet 10/14/18 Rosuvastatin [Crestor -] 20 mg PO HS #30 tablet 10/14/18 Amlodipine Besylate [Norvasc -] 10 mg PO DAILY 03/01/19 Arformoterol Tartrate [Brovana] 15 mcg IH DAILY 03/01/19 Budesonide/Formeterol Fumarate [SYMBICORT 160/4.5mcg -] 1 inh PO BID 03/01/19 Diazepam 5 mg PO PRN 03/01/19 HYDROmorphone [Dilaudid -] 4 mg PO Q4H 03/01/19 Lipase/Protease/Amylase [Creon Dr 36,000 Units Capsule] 1 each PO TID 03/01/19 Mesalamine [Pentasa] 500 mg PO TID 03/01/19 Ondansetron [Zofran -] 4 mg PO TID 03/01/19 Oxycodone HCl/Acetaminophen [Oxycodone-Acetaminophen 10-325] 1 each PO BID 03/01 Prednisone 60 mg PO DAILY 03/01/19 Tapentadol ER [Nucynta ER -] 150 mg PO BID 03/01/19 Albuterol Sulfate Inhaler - [Ventolin HFA Inhaler -] 2 puff IH Q4H PRN #1 inhaler 03/16/19 Arformoterol Tartrate [Brovana -] 1 amp NEB RBID #1 pump 03/16/19 Isosorbide Mononitrate [Imdur -] 30 mg PO DAILY #30 tab.sr.24h 03/16/19 Nifedipine ER [Procardia XL -] 30 mg PO DAILY #30 tab.er.24 03/16/19 Nystatin Oral Suspension - [Nystatin Oral Susp 387766 Units/5 ML -] 500,000 units PO Q6HPO #1 bottle 03/16/19 Tiotropium [place] [Spiriva Respimat] 2 puff IH DAILY #1 inhaler 03/16/19 Torsemide [Demadex -] 40 mg PO DAILY #30 tablet 03/16/19 hydrALAZINE HCL [Apresoline -] 50 mg PO BID #60 tablet 03/16/19 metroNIDAZOLE [Flagyl -] 250 mg PO TID #21 tablet 03/16/19 predniSONE [Deltasone -] 20 mg PO DAILY #30 tablet 03/16/19
[2019-03-18 11:22] VITALS: BP 161/90; PULSE 101; TEMP 98.4
[2019-03-20 20:07] LABS: CK-MM 86 % (97-100)
== END 2019-03-18 12:06 | disposition home health service (06) | DRG 190 ==
LOC: JER 18:11 → JERBED 20:18 → J6S 03-02 18:27
PROVIDERS: ADMIT Family Medicine; ATTEND Family Medicine
DX: J44.1 Chronic obstructive pulmonary disease with (acute) exacerbation (principal); I50.33 Acute on chronic diastolic (congestive) heart failure; N17.9 Acute kidney failure, unspecified; K86.1 Other chronic pancreatitis; F11.20 Opioid dependence, uncomplicated; M62.82 Rhabdomyolysis; J96.11 Chronic respiratory failure with hypoxia; I13.0 Hypertensive heart and chronic kidney disease with heart failure and stage 1 through stage 4 chronic kidney disease, or unspecified chronic kidney disease; E78.5 Hyperlipidemia, unspecified; M54.5 Low back pain; G47.33 Obstructive sleep apnea (adult) (pediatric); J45.909 Unspecified asthma, uncomplicated; E66.9 Obesity, unspecified; Z68.39 Body mass index [BMI] 39.0-39.9, adult; F41.9 Anxiety disorder, unspecified; E87.5 Hyperkalemia; I25.10 Atherosclerotic heart disease of native coronary artery without angina pectoris; Z98.61 Coronary angioplasty status; Z95.1 Presence of aortocoronary bypass graft; R94.5 Abnormal results of liver function studies; N18.9 Chronic kidney disease, unspecified; M48.00 Spinal stenosis, site unspecified; G89.4 Chronic pain syndrome; R07.89 Other chest pain; K76.0 Fatty (change of) liver, not elsewhere classified; E11.65 Type 2 diabetes mellitus with hyperglycemia; Z93.0 Tracheostomy status; D72.829 Elevated white blood cell count, unspecified
CPT/HCPCS: 36415; 71045-TC-FY; 76700-TC; 76775-TC; 76856-TC; 80048; 80053; 80061; 80074; 80076; 81003; 82550; 82552; 82553; 82565; 82570; 82962; 83721; 83735; 83880; 84100; 84156; 84439; 84443; 84484; 84540; 85025; 85027; 86706; 87205; 93005; 93010; 93970-TC; 94640; 97116-GP; 97161-GP; 99285-25; J0735; J1644

== ENCOUNTER 2019-03-22 10:13 | Inpatient (IN) | payer OTHER ==
[2019-03-22 10:29] VITALS: BMI 39.2
--- NOTE | 2019-03-22 10:54 | EKG ---
Test Reason : Blood Pressure : / mmHG Vent. Rate : 106 BPM Atrial Rate : 106 BPM P-R Int : 174 ms QRS Dur : 074 ms QT Int : 348 ms P-R-T Axes : 053 -16 006 degrees QTc Int : 462 ms SINUS TACHYCARDIA WITH PREMATURE SUPRAVENTRICULAR COMPLEXES AND WITH OCCASIONAL PREMATURE VENTRICULAR COMPLEXES JUNCTIONAL ST DEPRESSION, PROBABLY NORMAL BORDERLINE ECG WHEN COMPARED WITH ECG OF 05-MAR-2019 14:34, PREMATURE VENTRICULAR COMPLEXES ARE NOW PRESENT ST NOW DEPRESSED IN INFERIOR LEADS Confirmed by GIOVANNI BULLARD, STEVEN ([id number]) on 03/22/2019 10:54:09 AM Referred By: Confirmed By:STEVEN DAVILA MD
[2019-03-22] MEDS ORDERED: HYDROmorphone HCL CARPU-JECT 2 MG/1 ML DISP.SYRIN IVPB ONE (11:02)
[2019-03-22] MEDS ORDERED: HYDROmorphone HCl 2 MG/ML VIAL ONE (11:16)
[2019-03-22 11:24] LABS: BASO % 0.5 % (0-2.0); EOS % 0.5 % (0-4.5); HEMATOCRIT 37.3 % (35.4-49); HEMOGLOBIN 12.1 GM/dL (11.7-16.9); LYMPH % 36.9 % (8-40); MCH 27.3 pg (25.7-33.7); MCHC 32.5 g/dl (32.0-35.9); MEAN PLT VOLUME 7.8 fl (7.5-11.1); MONO % 6.7 % (3.8-10.2); NEUT % 55.4 % (42.8-82.8); PLATELET COUNT 172 K/MM3 (134-434); RBC 4.44 M/mm3 (4.00-5.60); RDW 16.8 % (11.9-15.9); WHITE BLOOD COUNT 8.6 K/mm3 (4.0-10.0)
[2019-03-22] MEDS ORDERED: dilTIAZem HCL 50 MG/10 ML - 10 ML VIAL IVPUSH ONE ×2 (11:33→11:59)
[2019-03-22] MEDS ORDERED: dilTIAZem HCL 125 MG/25 ML - 25 ML VIAL ONE (11:39)
[2019-03-22 11:41] LABS: INR 1.05 (0.83-1.09); PROTHROMBIN TIME (PATIENT) 12.4 SEC (9.7-13.0)
[2019-03-22 11:56] LABS: ALBUMIN 2.8 g/dl (3.4-5.0); BILIRUBIN,TOTAL 0.7 mg/dL (0.2-1); CALCIUM 8.5 mg/dL (8.5-10.1); CREATININE 1.9 mg/dL (0.55-1.3); POTASSIUM 4.4 mmol/L (3.5-5.1); TOT PROT 5.6 g/dl (6.4-8.2)
[2019-03-22 11:57] LABS: MAGNESIUM 2.1 mg/dL (1.8-2.4)
--- NOTE | 2019-03-22 12:19 | CON.CARD ---
Consult Consult Specialty:: Cardiology - History of Present Illness History of Present Illness: The patient is a 62 year old male, with a significant PMH of CAD s/p DC, stents x6 (most recently 12/2015), CABG, HTN, HLD, chronic pancreatitis, chronic back pain, SBO, incarcerated hernia s/p repair x2 (September 2017), H.Pylori, BPH, COPD, bronchial asthma, tracheostomy in place (unplugs when sleeping for GRACIE), and anxiety, who presents to the emergency department from PCP office, Dr. Elaine for new onset rapid AFIB. 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 Patient was seen and admitted here in the ED 03/01/19 -03/18/19 for similar symptoms. He also notes bilateral leg pain and took dilaudid this morning. Patient notes he was suppose to be seen at [facility] for a biopsy of his pancreas. The patient denies shortness of breath, headache and dizziness. Denies fever, chills, nausea, vomiting, diarrhea and constipation. Denies dysuria, frequency, urgency and hematuria. Allergies: NKA Money Manager: Dr. Elaine Bola - Past Medical History EGG GATHERER: Yes: Peripheral Neuropathy (s/p extensive cervical spine surgery post injury with leg weakness and poor balance: patient much improved post extensive physical therapy and now walks with a walker), Other (chronic pain syndrome with mulit-level spine disease managed by PM and his spine surgeon. Planned EMG/ NCVs studies and evaluation of motor weakness in process by treating neurologist Dr. Singh) Cardio/Vascular: Yes: CAD (Last stents placed x 2 last year per patient), CHF (s /p DC several years ago; s/p stenting. mild CHF in the past.), HTN, Hyperlipdemia, DC, Pulmonary Hypertension Pulmonary: Yes: Asthma, COPD, Sleep Apnea Gastrointestinal: Yes: Constipation, Pancreatitis (? history of chronic pancreatitis with episodes of acute pancreatitis), Other (FECAL INCONTINENCE SECONDARY TO OVERFLOW followed by Dr. Abdoulaye Wu, IPMN, PANCREATITIS . HAD EPISODE OF ISCHEMIC COLITIS LAST ADMISSION) Renal/: Yes: BPH Psych: Yes: Depression Musculoskeletal: Yes: Chronic low back pain (has back stimulator), Other ( CHRONIC NECK PAIN s/p Lumbar and Cervical fusion ) Endocrine: Yes: Diabetes Mellitus (has insulin pump) - Past Surgical History Past Surgical History: Yes: Breast Biopsy, Colonoscopy, Laminectomy, Stent (1 non eluting, 5 eluting) - Alcohol/Substance Use Hx Alcohol Use: No History of Substance Use: reports: None, Prescription (opiates for chronic pain post cervical spine surgery. 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 History of Recent Travel: No Home Medications - Allergies Allergies/Adverse Reactions: Allergies Allergy/AdvReac Type Severity Reaction Status Date / Time shellfish derived Allergy Severe Verified 03/22/19 10:29 Tetracyclines Allergy Severe Verified 03/22/19 10:29 - Home Medications Home Medications: Ambulatory Orders Albuterol Sulfate Inhaler - [Ventolin HFA Inhaler -] 1 - 2 inh PO Q4H PRN Arformoterol Tartrate [Brovana] 15 mcg IH ASDIR 08/18/17 Aspirin [Aspirin EC] 81 mg PO DAILY 08/18/17 Clopidogrel Bisulfate [Plavix] 75 mg PO DAILY 08/18/17 Dexlansoprazole [Dexilant] 30 mg PO DAILY 08/18/17 Insulin Pump Controller [Snap Insulin Pump Controller] 1 each ASDIR 08/18/17 Montelukast Sodium [Singulair] 10 mg PO DAILY 08/18/17 Tiotropium [place] [Spiriva] 1 puff IH DAILY 08/18/17 Finasteride [Proscar -] 5 mg PO DAILY tablet 09/20/17 Lipase/Protease/Amylase [Stacy Hackett 36,000 Units Capsule] 1 cap PO TIDCM capsule. 09/20/17 Ramipril [Altace] 10 mg PO DAILY capsule 09/20/17 Tamsulosin HCl [Flomax -] 0.4 mg PO DAILY@0830 cap.er.24h 09/20/17 Amitriptyline HCl [Elavil -] 75 mg PO DAILY 03/30/18 Gabapentin 800 mg PO TID 03/30/18 Albuterol 0.083% Nebulizer Elena [Ventolin 0.083% Nebulizer Soln -] 1 amp NEB Q8H PRN #30 amp 07/26/18 Mometasone Furoate [Asmanex 220Mcg -] 2 puff IH BID #2 inhaler 07/26/18 Mag Hydrox/Al Hydrox/Simeth [MAALOX *SUSPENSION* -] 30 ml PO Q6H PRN #1 bottle 09/27/18 Polyethylene Glycol 3350 [Miralax 119 gm Btl -] 17 gm PO BID #1 bottle 09/27/18 Sennosides/Docusate Sodium [Senna Laxative Tablet] 1 each PO DAILY #20 tablet Chlorthalidone [Hygroton -] 25 mg PO DAILY #60 tablet 10/14/18 Rosuvastatin [Crestor -] 20 mg PO HS #30 tablet 10/14/18 Amlodipine Besylate [Norvasc -] 10 mg PO DAILY 03/01/19 Arformoterol Tartrate [Brovana] 15 mcg IH DAILY 03/01/19 Budesonide/Formeterol Fumarate [SYMBICORT 160/4.5mcg -] 1 inh PO BID 03/01/19 Diazepam 5 mg PO PRN 03/01/19 HYDROmorphone [Dilaudid -] 4 mg PO Q4H 03/01/19 Lipase/Protease/Amylase [Stacy Dr 36,000 Units Capsule] 1 each PO TID 03/01/19 Mesalamine [Pentasa] 500 mg PO TID 03/01/19 Ondansetron [Zofran -] 4 mg PO TID 03/01/19 Oxycodone HCl/Acetaminophen [Oxycodone-Acetaminophen 10-325] 1 each PO BID 03/01 Prednisone 60 mg PO DAILY 03/01/19 Tapentadol ER [Nucynta ER -] 150 mg PO BID 03/01/19 Albuterol Sulfate Inhaler - [Ventolin HFA Inhaler -] 2 puff IH Q4H PRN #1 inhaler 03/16/19 Arformoterol Tartrate [Brovana -] 1 amp NEB RBID #1 pump 03/16/19 Isosorbide Mononitrate [Imdur -] 30 mg PO DAILY #30 tab.sr.24h 03/16/19 Nifedipine ER [Procardia XL -] 30 mg PO DAILY #30 tab.er.24 03/16/19 Nystatin Oral Suspension - [Nystatin Oral Susp 722958 Units/5 ML -] 500,000 units PO Q6HPO #1 bottle 03/16/19 Tiotropium [place] [Spiriva Respimat] 2 puff IH DAILY #1 inhaler 03/16/19 Torsemide [Demadex -] 40 mg PO DAILY #30 tablet 03/16/19 hydrALAZINE HCL [Apresoline -] 50 mg PO BID #60 tablet 03/16/19 metroNIDAZOLE [Flagyl -] 250 mg PO TID #21 tablet 03/16/19 predniSONE [Deltasone -] 20 mg PO DAILY #30 tablet 03/16/19 Family Disease History - Family Disease History Family Disease History: Diabetes: Mother ( 58: diabetic complications), CA: Father ( 49: asbestosis), Respiratory: Brother (bronchial asthma, DVT), Other: Mother, Sister (BCA), Son (2, healthy), Daughter (1, healthy) Review of Systems - Review of Systems Constitutional: reports: No Symptoms Eyes: reports: No Symptoms HENT: reports: No Symptoms Neck: reports: No Symptoms Cardiovascular: reports: Palpitations Respiratory: reports: No Symptoms Gastrointestinal: reports: No Symptoms Genitourinary: reports: No Symptoms Breasts: reports: No Symptoms Reported Musculoskeletal: reports: No Symptoms Integumentary: reports: No Symptoms Neurological: reports: No Symptoms Endocrine: reports: No Symptoms Hematology/Lymphatic: reports: No Symptoms Psychiatric: reports: No Symptoms Vital Signs: Vital Signs Temperature 98.8 F 03/22/19 10:26 Pulse Rate 113 H 03/22/19 11:04 Respiratory Rate 16 03/22/19 11:04 Blood Pressure 100/61 03/22/19 11:04 O2 Sat by Pulse Oximetry (%) 99 03/22/19 10:26 Constitutional: Yes: Well Nourished, No Distress, Calm Eyes: Yes: WNL, Conjunctiva Clear, EOM Intact HENT: Yes: WNL, Atraumatic, Normocephalic Neck: Yes: WNL, Supple, Trachea Midline Respiratory: Yes: WNL, Regular, CTA Bilaterally Gastrointestinal: Yes: WNL, Normal Bowel Sounds Renal/: Yes: WNL Cardiovascular: Yes: Pulse Irregular Heart Sounds: Yes: S1, S2 Musculoskeletal: Yes: WNL Extremities: Yes: WNL Integumentary: Yes: WNL Neurological: Yes: WNL, Alert, Oriented ...Motor Strength: WNL Psychiatric: Yes: WNL, Alert, Oriented - Other Data Labs, Other Data: CBC, BMP 03/22/19 11:00 03/22/19 11:00 INR, PTT INR 1.05 (0.83-1.09) 03/22/19 11:00 Troponin, BNP 03/22/19 11:00 Troponin I 0.09 H Troponin, BNP 03/22/19 11:00 Troponin I 0.09 H Imaging - Results Chest X-ray: Image Reviewed (cm no i/e) EKG: Image Reviewed (#1 MAT vs s tach #2 AF rep abn) Problem List - Problems (1) Anxiety Code(s): F41.9 - ANXIETY DISORDER, UNSPECIFIED (2) Atrial flutter Code(s): I48.92 - UNSPECIFIED ATRIAL FLUTTER Qualifiers: Atrial flutter type: unspecified Qualified Code(s): I48.92 - Unspecified atrial flutter (3) COPD exacerbation Code(s): J44.1 - CHRONIC OBSTRUCTIVE PULMONARY DISEASE W (ACUTE) EXACERBATION (4) Diastolic CHF Code(s): I50.30 - UNSPECIFIED DIASTOLIC (CONGESTIVE) HEART FAILURE Qualifiers: Heart failure chronicity: chronic Qualified Code(s): I50.32 - Chronic diastolic (congestive) heart failure (5) Rhabdomyolysis Code(s): M62.82 - RHABDOMYOLYSIS Qualifiers: Rhabdomyolysis type: non-traumatic Qualified Code(s): M62.82 - Rhabdomyolysis (6) LOVE (acute kidney injury) Code(s): N17.9 - ACUTE KIDNEY FAILURE, UNSPECIFIED (7) Abdominal pain Code(s): R10.9 - UNSPECIFIED ABDOMINAL PAIN (8) Abdominal pain in male Code(s): R10.9 - UNSPECIFIED ABDOMINAL PAIN (9) Atypical chest pain Code(s): R07.89 - OTHER CHEST PAIN (10) BMI 39.0-39.9,adult Code(s): Z68.39 - BODY MASS INDEX (BMI) 39.0-39.9, ADULT (11) BPH (benign prostatic hyperplasia) Code(s): N40.0 - BENIGN PROSTATIC HYPERPLASIA WITHOUT LOWER URINRY TRACT SYMP (12) Chest pain Code(s): R07.9 - CHEST PAIN, UNSPECIFIED Qualifiers: Chest pain type: other chest pain Qualified Code(s): R07.89 - Other chest pain; R07.8 - Other chest pain (13) Chronic abdominal pain Code(s): R10.9 - UNSPECIFIED ABDOMINAL PAIN; G89.29 - OTHER CHRONIC PAIN (14) Chronic pancreatitis Code(s): K86.1 - OTHER CHRONIC PANCREATITIS (15) Constipation Code(s): K59.00 - CONSTIPATION, UNSPECIFIED Qualifiers: Constipation type: unspecified constipation type Qualified Code(s): K59.00 - Constipation, unspecified (16) Elevated LFTs Code(s): R94.5 - ABNORMAL RESULTS OF LIVER FUNCTION STUDIES (17) HTN (hypertension) Code(s): I10 - ESSENTIAL (PRIMARY) HYPERTENSION (18) Hx of heart artery stent Code(s): Z95.5 - PRESENCE OF CORONARY ANGIOPLASTY IMPLANT AND GRAFT (19) Hyperglycemia Code(s): R73.9 - HYPERGLYCEMIA, UNSPECIFIED (20) Hyperkalemia Code(s): E87.5 - HYPERKALEMIA (21) Hyperlipidemia Code(s): E78.5 - HYPERLIPIDEMIA, UNSPECIFIED (22) Intractable low back pain Code(s): M54.5 - LOW BACK PAIN (23) Leg edema Code(s): R60.0 - LOCALIZED EDEMA (24) Opiate dependence Code(s): F11.20 - OPIOID DEPENDENCE, UNCOMPLICATED (25) Renal insufficiency Code(s): N28.9 - DISORDER OF KIDNEY AND URETER, UNSPECIFIED (26) Type 2 diabetes mellitus with hyperosmolarity without nonketotic hyperglycemic-hyperosmolar coma ([facility]) Code(s): E11.00 - TYPE 2 DIAB W HYPROSM W/O NONKET HYPRGLY-HYPROS COMA ([facility]) (27) ASHD (arteriosclerotic heart disease) Code(s): I25.10 - ATHSCL HEART DISEASE OF [place] CORONARY ARTERY W/O ANG PCTRS (28) COPD (chronic obstructive pulmonary disease) Code(s): J44.9 - CHRONIC OBSTRUCTIVE PULMONARY DISEASE, UNSPECIFIED (29) Coronary artery disease Code(s): I25.10 - ATHSCL HEART DISEASE OF [place] CORONARY ARTERY W/O ANG PCTRS (30) Diabetes mellitus Code(s): E11.9 - TYPE 2 DIABETES MELLITUS WITHOUT COMPLICATIONS Qualifiers: Diabetes mellitus type: type 2 (31) GRACIE (obstructive sleep apnea) Code(s): G47.33 - OBSTRUCTIVE SLEEP APNEA (ADULT) (PEDIATRIC) (32) Obesity Code(s): E66.9 - OBESITY, UNSPECIFIED (33) Tracheostomy in place Code(s): Z98.89 - OTHER SPECIFIED POSTPROCEDURAL STATES * DO NOT USE * (34) Asthma Code(s): J45.909 - UNSPECIFIED ASTHMA, UNCOMPLICATED Qualifiers: Asthma severity: unspecified severity (35) COPD exacerbation Code(s): J44.1 - CHRONIC OBSTRUCTIVE PULMONARY DISEASE W (ACUTE) EXACERBATION Assessment/Plan 62 year old male, with a significant PMH of CAD s/p DC, stents x6 (most recently 12/2015), CABG, HTN, HLD, chronic pancreatitis, chronic back pain, SBO , incarcerated hernia s/p repair x2 (September 2017), H.Pylori, BPH, COPD, bronchial asthma, tracheostomy in place (unplugs when sleeping for GRACIE), and anxiety, who presents to the emergency department from PCP office, Dr. Elaine for new onset rapid AFIB. Plan AC with Eliquis 2.5 BID rate controll with cardizem and low dose of BB (h/o decompensated COPD) telemetry echo will f/u
[2019-03-22] MEDS ORDERED: APIXABAN 2.5 MG TABLET PO ONE (12:43)
[2019-03-22] MEDS ORDERED: APIXABAN 5 MG TABLET PO ONE (12:49)
--- NOTE | 2019-03-22 13:28 | EKG ---
Test Reason : Blood Pressure : / mmHG Vent. Rate : 107 BPM Atrial Rate : 214 BPM P-R Int : 000 ms QRS Dur : 078 ms QT Int : 332 ms P-R-T Axes : 000 -07 004 degrees QTc Int : 443 ms ATRIAL FIBRILLATION WITH RAPID VENTRICULAR RESPONSE WITH PREMATURE VENTRICULAR OR ABERRANTLY CONDUCTED COMPLEXES ABNORMAL ECG WHEN COMPARED WITH ECG OF 22-MAR-2019 10:21, ATRIAL FIBRILLATION HAS REPLACED SINUS RHYTHM Confirmed by GIOVANNI BULLARD, STEVEN ([id number]) on 03/22/2019 1:28:37 PM Referred By: Confirmed By:STEVEN DAVILA MD
--- NOTE | 2019-03-22 13:47 | PDOC ---
Documentation entered by Marian Nieto SCRIBE, acting as scribe for Chris Clemente MD. Chris Clemente MD: This documentation has been prepared by the Emilia suarez Xhesika, SCRIBE, under my direction and personally reviewed by me in its entirety. I confirm that the documentation accurately reflects all work, treatment, procedures, and medical decision making performed by me. History of Present Illness - General Chief Complaint: Chest Pain Stated Complaint: SOB Time Seen by Provider: 03/22/19 10:40 History Source: Patient Exam Limitations: No Limitations - History of Present Illness Initial Comments: 03/22/19 11:10 The patient is a 62 year old male, with a significant PMH of CAD s/p SD, stents x6 (most recently 12/2015), CABG, HTN, HLD, chronic pancreatitis, chronic back pain, SBO, incarcerated hernia s/p repair x2 (September 2017), H.Pylori, BPH, COPD, bronchial asthma, tracheostomy in place (unplugs when sleeping for GRACIE), and anxiety, who presents to the emergency department from PCP office, Dr. Elaine for new onset rapid AFIB. 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 Patient was seen and admitted here in the ED 03/01/19 -03/18/19 for similar symptoms. He also notes bilateral leg pain and took dilaudid this morning. Patient notes he was suppose to be seen at [facility] for a biopsy of his pancreas. The patient denies shortness of breath, headache and dizziness. Denies fever, chills, nausea, vomiting, diarrhea and constipation. Denies dysuria, frequency, urgency and hematuria. Allergies: NKA Developer Prover Mechanical: Bola Haskins Past History - Past Medical History Allergies/Adverse Reactions: Allergies Allergy/AdvReac Type Severity Reaction Status Date / Time shellfish derived Allergy Severe Verified 03/22/19 10:29 Tetracyclines Allergy Severe Verified 03/22/19 10:29 Home Medications: Ambulatory Orders Albuterol Sulfate Inhaler - [Ventolin HFA Inhaler -] 1 - 2 inh PO Q4H PRN Arformoterol Tartrate [Brovana] 15 mcg IH ASDIR 08/18/17 Aspirin [Aspirin EC] 81 mg PO DAILY 08/18/17 Clopidogrel Bisulfate [Plavix] 75 mg PO DAILY 08/18/17 Dexlansoprazole [Dexilant] 30 mg PO DAILY 08/18/17 Insulin Pump Controller [Snap Insulin Pump Controller] 1 each MC ASDIR 08/18/17 Montelukast Sodium [Singulair] 10 mg PO DAILY 08/18/17 Tiotropium [place] [Spiriva] 1 puff IH DAILY 08/18/17 Finasteride [Proscar -] 5 mg PO DAILY tablet 09/20/17 Lipase/Protease/Amylase [Stacy Hackett 36,000 Units Capsule] 1 cap PO TIDCM capsule. 09/20/17 Ramipril [Altace] 10 mg PO DAILY capsule 09/20/17 Tamsulosin HCl [Flomax -] 0.4 mg PO DAILY@0830 cap.er.24h 09/20/17 Amitriptyline HCl [Elavil -] 75 mg PO DAILY 03/30/18 Gabapentin 800 mg PO TID 03/30/18 Albuterol 0.083% Nebulizer Elena [Ventolin 0.083% Nebulizer Soln -] 1 amp NEB Q8H PRN #30 amp 07/26/18 Mometasone Furoate [Asmanex 220Mcg -] 2 puff IH BID #2 inhaler 07/26/18 Mag Hydrox/Al Hydrox/Simeth [MAALOX *SUSPENSION* -] 30 ml PO Q6H PRN #1 bottle 09/27/18 Polyethylene Glycol 3350 [Miralax 119 gm Btl -] 17 gm PO BID #1 bottle 09/27/18 Sennosides/Docusate Sodium [Senna Laxative Tablet] 1 each PO DAILY #20 tablet Chlorthalidone [Hygroton -] 25 mg PO DAILY #60 tablet 10/14/18 Rosuvastatin [Crestor -] 20 mg PO HS #30 tablet 10/14/18 Amlodipine Besylate [Norvasc -] 10 mg PO DAILY 03/01/19 Arformoterol Tartrate [Brovana] 15 mcg IH DAILY 03/01/19 Budesonide/Formeterol Fumarate [SYMBICORT 160/4.5mcg -] 1 inh PO BID 03/01/19 Diazepam 5 mg PO PRN 03/01/19 HYDROmorphone [Dilaudid -] 4 mg PO Q4H 03/01/19 Lipase/Protease/Amylase [Stacy Hackett 36,000 Units Capsule] 1 each PO TID 03/01/19 Mesalamine [Pentasa] 500 mg PO TID 03/01/19 Ondansetron [Zofran -] 4 mg PO TID 03/01/19 Oxycodone HCl/Acetaminophen [Oxycodone-Acetaminophen 10-325] 1 each PO BID 03/01 Prednisone 60 mg PO DAILY 03/01/19 Tapentadol ER [Nucynta ER -] 150 mg PO BID 03/01/19 Albuterol Sulfate Inhaler - [Ventolin HFA Inhaler -] 2 puff IH Q4H PRN #1 inhaler 03/16/19 Arformoterol Tartrate [Brovana -] 1 amp NEB RBID #1 pump 03/16/19 Isosorbide Mononitrate [Imdur -] 30 mg PO DAILY #30 tab.sr.24h 03/16/19 Nifedipine ER [Procardia XL -] 30 mg PO DAILY #30 tab.er.24 03/16/19 Nystatin Oral Suspension - [Nystatin Oral Susp 523188 Units/5 ML -] 500,000 units PO Q6HPO #1 bottle 03/16/19 Tiotropium [place] [Spiriva Respimat] 2 puff IH DAILY #1 inhaler 03/16/19 Torsemide [Demadex -] 40 mg PO DAILY #30 tablet 03/16/19 hydrALAZINE HCL [Apresoline -] 50 mg PO BID #60 tablet 03/16/19 metroNIDAZOLE [Flagyl -] 250 mg PO TID #21 tablet 03/16/19 predniSONE [Deltasone -] 20 mg PO DAILY #30 tablet 03/16/19 Anemia: No Asthma: Yes Cancer: No Cardiac Disorders: Yes (SD, stents x 6, CAD) CVA: No COPD: Yes (trach,) CHF: Yes Dementia: No Diabetes: Yes (insulin pump) GI Disorders: Yes (H-Pylori, Diverticulosis, Colon Polyps, PANCREATITIS) Disorders: No HTN: Yes Hypercholesterolemia: Yes Liver Disease: No Seizures: No Thyroid Disease: No - Surgical History Abdominal Surgery: No Appendectomy: No Cardiac Surgery: Yes (STENTS X6) Cholecystectomy: No Lung Surgery: No Neurologic Surgery: Yes (nerve damage from accident - back and neck surgery) Orthopedic Surgery: Yes (LUMBAR LAMINECTOMY, L HAND SOFT TISSUE REPAIR) - Immunization History Immunization Up to Date: Yes - Suicide/Smoking/Psychosocial Hx Smoking History: Never smoked Have you smoked in the past 12 months: No Number of Cigarettes Smoked Daily: 0 Information on smoking cessation initiated: No Hx Alcohol Use: No Drug/Substance Use Hx: No Substance Use Type: None Hx Substance Use Treatment: No Cardiac Specific PMH - Complaint Specific PMHX Angina: Yes Cardiac Arrhythmia: No Cardiac Stent: Yes GERD: No Pacemaker: No Pulmonary Embolus: No Valvular Heart Disease: No Peripheral Vascular Disease: No Review of Systems - Review of Systems Able to Perform ROS?: Yes Comments:: 03/22/19 11:11 CONSTITUTIONAL: No fever, no chills, no fatigue EYES: No visual changes ENT: No ear pain, no sore throat CARDIOVASCULAR: (+) New onset AFIB. (+) chest pain. (+) palpitations RESPIRATORY: No cough, no SOB GI: No abdominal pain, no nausea, no vomiting, no constipation, no diarrhea GENITOURINARY: No dysuria, no frequency, no hematuria MUSKULOSKELETAL: (+) b/l leg pain. No backpain, no joint pain, no myalgias SKIN: No rash NEURO: No headache *Physical Exam - Vital Signs Last Vital Signs Temp Pulse Resp BP Pulse Ox 98.8 F 113 H 16 100/61 99 03/22/19 10:26 03/22/19 11:04 03/22/19 11:04 03/22/19 11:04 03/22/19 10:26 - Physical Exam Comments: EXAMINATION CONSTITUTIONAL: awae,alert, morbidly [place] HEAD: Normocephalic; atraumatic EYES: PERRL; EOM intact ENMT: External appears normal; normal oropharynx NECK: Supple; + tracheostomy; no jvd CARD: tachycardic, irergularly irregular; Normal S1, S2; no murmurs, rubs, or gallops RESP: Normal chest excursion with respiration; breath sounds clear and equal bilaterally; no wheezes, rhonchi, or rales ABD: Soft, non-distended; non-tender; no palpable organomegaly, no palpable hernias EXT: Normal ROM in all four extremities; + b/l tender to palpation; + 1 pitting edema b/l; distal pulses intact SKIN: Warm, dry, no rash NEURO: No focal neurological deficiencies. Heart Score/ECG Review #1 ECG reviewed & interpreted by me at: 11:18 (Atrial flutter with rapid ventricular response with premature ventricular of aberrantly conduced complexes ) ED Treatment Course - LABORATORY CBC & Chemistry Diagram: 03/22/19 11:00 03/22/19 11:00 - ADDITIONAL ORDERS Additional order review: Laboratory Results 03/22/19 03/22/19 03/22/19 11:00 11:00 11:00 PT with INR 12.40 INR 1.05 Sodium Potassium Chloride Carbon Dioxide Anion Gap BUN Creatinine Est GFR (CKD-EPI)AfAm Est GFR (CKD-EPI)NonAf Random Glucose Calcium Magnesium 2.1 Total Bilirubin AST ALT Alkaline Phosphatase Creatine Kinase 1365 H Creatine Kinase Index No Result Required. 1.0 CK-MB (CK-2) No Result Required. 14.0 H Troponin I 0.09 H Total Protein Albumin Lipase 105 03/22/19 11:00 PT with INR INR Sodium 138 Potassium 4.4 Chloride 100 Carbon Dioxide 31 Anion Gap 7 L BUN 26.0 H Creatinine 1.9 H Est GFR (CKD-EPI)AfAm 41.94 Est GFR (CKD-EPI)NonAf 36.19 Random Glucose 225 H Calcium 8.5 Magnesium Total Bilirubin 0.7 AST 80 H ALT 136 H Alkaline Phosphatase 63 Creatine Kinase Creatine Kinase Index CK-MB (CK-2) Troponin I Total Protein 5.6 L Albumin 2.8 L Lipase 03/22/19 11:00 RBC 4.44 MCV 84.0 MCHC 32.5 RDW 16.8 H MPV 7.8 Neutrophils % 55.4 D Lymphocytes % 36.9 D Monocytes % 6.7 Eosinophils % 0.5 D Basophils % 0.5 - RADIOLOGY Radiology Studies Ordered: Category Date Time Status CHEST X-RAY PORTABLE* [RAD] Stat Radiology 03/22/19 10:42 Taken - Medications Given in the ED: ED Medications Discontinued Medications Generic Name Dose Route Start Last Admin Trade Name Freq PRN Reason Stop Dose Admin Apixaban 2.5 mg 03/22/19 12:43 03/22/19 12:57 Eliquis - PO 03/22/19 12:44 2.5 mg ONCE ONE Administration Diltiazem HCl 5 mg 03/22/19 11:33 03/22/19 11:44 Cardizem Injection - IVPUSH 03/22/19 11:34 5 mg ONCE ONE Administration Diltiazem HCl 5 mg 03/22/19 11:59 03/22/19 12:06 Cardizem Injection - IVPUSH 03/22/19 12:00 5 mg ONCE ONE Administration Hydromorphone HCl 4 mg 03/22/19 11:02 03/22/19 11:21 Dilaudid Injection - IVPB 03/22/19 11:03 4 mg ONCE ONE Administration Medical Decision Making - Medical Decision Making 03/22/19 13:45 Patient is 63-year-old male with multiple comorbidities who presents with new onset of atrial flutter with variable conduction. Rate control achieved with IV Cardizem. Patient seen and evaluated by cardiology, Dr. Alan. Recommends anticoagulation with L Aquinas-2.5 mg by mouth. Patient's chads 2 vascular score is elevated and he is at high risk of stroke. Risk and benefit discussed. Will admit to telemetry. *DC/Admit/Observation/Transfer Diagnosis at time of Disposition: COPD exacerbation, Anxiety Atrial flutter Qualifiers: Atrial flutter type: unspecified Qualified Code(s): I48.92 - Unspecified atrial flutter Diastolic CHF Qualifiers: Heart failure chronicity: chronic Qualified Code(s): I50.32 - Chronic diastolic (congestive) heart failure Rhabdomyolysis Qualifiers: Rhabdomyolysis type: non-traumatic Qualified Code(s): M62.82 - Rhabdomyolysis - Discharge Dispostion Condition at time of disposition: Fair Decision to Admit order: Yes - Referrals - Patient Instructions - Post Discharge Activity
[2019-03-22] MEDS ORDERED: dilTIAZem HCL 60 MG TABLET (FP) ONE (15:06)
--- NOTE | 2019-03-22 15:50 | ECHO ---
Name: LOYDA COTTONN Exam:Adult Echocardiogram Study Date: 03/22/2019 03:08 PM Age: 63 yrs Reason For Study: ef Height: 73 in Weight: 297 lb BSA: 2.5 m2 MMode/2D Measurements & Calculations IVSd: 1.8 cm Ao root diam: 3.0 cm LVIDd: 4.5 cm LA dimension: 3.4 cm LVIDs: 3.4 cm LVPWd: 1.5 cm LVPWs: 1.9 cm EDV(Teich): 90.5 ml ESV(Teich): 48.4 ml LVOT diam: 2.3 cm RV S Eric: 17.6 cm/sec Doppler Measurements & Calculations MV E max eric: 96.0 cm/sec Ao V2 max: 180.6 cm/sec MV A max eric: 91.2 cm/sec Ao max P.5 mmHg MV E/A: 1.1 Ao V2 mean: 136.6 cm/sec MV dec time: 0.21 sec Ao mean P.8 mmHg Ao V2 VTI: 33.7 cm AMRGOT(I,D): 2.8 cm2 MARGOT(V,D): 2.8 cm2 LV V1 max P.0 mmHg SV(LVOT): 93.1 ml LV V1 mean P.5 mmHg LV V1 max: 122.2 cm/sec LV V1 mean: 86.4 cm/sec LV V1 VTI: 22.2 cm PA V2 max: 124.9 cm/sec Med Peak E' Eric: 10.6 cm/sec PA max P.2 mmHg Med E/e': 9.1 Lat Peak E' Eric: 12.6 cm/sec Lat E/e': 7.6 Procedure A two-dimensional transthoracic echocardiogram with color flow and Doppler was performed. Left Ventricle There is moderate concentric left ventricular hypertrophy. The left ventricular ejection fraction is normal. Left Ventricular Filling pattern is normal for age. The left ventricular wall motion is normal. Right Ventricle The right ventricle is normal in size and function. Atria Normal left and right atrial size and function. Mitral Valve There is mild mitral valve thickening. No significant mitral valve stenosis. There is trace to mild m itral regurgitation. Tricuspid Valve There is mild tricuspid valve thickening. There is no tricuspid stenosis. There was insufficient TR d etected to calculate RV systolic pressure. Aortic Valve The aortic valve is normal in structure and function. Mild valvular aortic stenosis. No aortic regurg itation is present. Pulmonic Valve The pulmonic valve is not well visualized. Great Vessels The aortic root is normal size. Pericardium/Pleura There is a mild pericardial effusion. Interpretation Summary There is a mild pericardial effusion. There is moderate concentric left ventricular hypertrophy. The left ventricular ejection fraction is normal. The left ventricular wall motion is normal. Left Ventricular Filling pattern is normal for age. Mild valvular aortic stenosis. There is trace to mild mitral regurgitation. There was insufficient TR detected to calculate RV systolic pressure. MD Panfilo Alan 03/22/2019 03:50 PM
[2019-03-22] MEDS: metoPROLOL SUCCINATE 25 MG TAB.SR.24H (FP) PO SCH (16:43)
[2019-03-22] MEDS ORDERED: INSULIN REGULAR HUMAN 100 UNITS/ML *VIAL SQ ONE (17:12)
--- NOTE | 2019-03-22 17:31 | HP ---
Admitting History and Physical - Primary Care Physician PCP: Markus Knox - Admission Chief Complaint: Chest Pain History of Present Illness: Patient is a 63 y/o male with past medical history CAD s/p TN and stent placement x 6, CABG, HTN, HLD, chronic pancreatitis, chronic back pain, SBO, incarcerated hernia s/p repair x 2, H. Pylori, BPH, COPD, Bronchial Asthma, tracheostomy, and Anxiety. 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 EKG done in office showed rhythm of Afib with RVR. 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 Planned EMG/ NCVs studies and evaluation of motor weakness in process by treating neurologist Dr. Singh) Cardiovascular: Yes: CAD (Last stents placed x 2 last year per patient), CHF (s/ p TN several years ago; s/p stenting. mild CHF in the past.), HTN, Hyperlipdemia , TN, Pulmonary Hypertension Pulmonary: Yes: Asthma, COPD, Sleep Apnea Gastrointestinal: Yes: Constipation, Pancreatitis (? history of chronic pancreatitis with episodes of acute pancreatitis), Other (FECAL INCONTINENCE SECONDARY TO OVERFLOW followed by Dr. Abdoulaye Wu, IPMN, PANCREATITIS . HAD EPISODE OF ISCHEMIC COLITIS LAST ADMISSION) Renal/: Yes: BPH Psych: Yes: Depression Musculoskeletal: Yes: Chronic low back pain (has back stimulator), Other ( CHRONIC NECK PAIN s/p Lumbar and Cervical fusion ) Endocrine: Yes: Diabetes Mellitus (has insulin pump) - Past Surgical History Past Surgical History: Yes: Breast Biopsy, Colonoscopy, Laminectomy, Stent (1 non eluting, 5 eluting) - Smoking History Smoking history: Never smoked Have you smoked in the past 12 months: No Aproximately how many cigarettes per day: 0 - Alcohol/Substance Use Hx Alcohol Use: No History of Substance Use: reports: None, Prescription (opiates for chronic pain post cervical spine surgery. 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 History of Recent Travel: No Home Medications - Allergies Allergies/Adverse Reactions: Allergies Allergy/AdvReac Type Severity Reaction Status Date / Time shellfish derived Allergy Severe Verified 03/22/19 10:29 Tetracyclines Allergy Severe Verified 03/22/19 10:29 - Home Medications Home Medications: Ambulatory Orders Albuterol Sulfate Inhaler - [Ventolin HFA Inhaler -] 1 - 2 inh PO Q4H PRN Arformoterol Tartrate [Brovana] 15 mcg IH ASDIR 08/18/17 Aspirin [Aspirin EC] 81 mg PO DAILY 08/18/17 Clopidogrel Bisulfate [Plavix] 75 mg PO DAILY 08/18/17 Dexlansoprazole [Dexilant] 30 mg PO DAILY 08/18/17 Insulin Pump Controller [Snap Insulin Pump Controller] 1 each MC ASDIR 08/18/17 Montelukast Sodium [Singulair] 10 mg PO DAILY 08/18/17 Tiotropium [place] [Spiriva] 1 puff IH DAILY 08/18/17 Finasteride [Proscar -] 5 mg PO DAILY tablet 09/20/17 Lipase/Protease/Amylase [Stacy Hackett 36,000 Units Capsule] 1 cap PO TIDCM capsule. 09/20/17 Ramipril [Altace] 10 mg PO DAILY capsule 09/20/17 Tamsulosin HCl [Flomax -] 0.4 mg PO DAILY@0830 cap.er.24h 09/20/17 Amitriptyline HCl [Elavil -] 75 mg PO DAILY 03/30/18 Gabapentin 800 mg PO TID 03/30/18 Albuterol 0.083% Nebulizer Elena [Ventolin 0.083% Nebulizer Soln -] 1 amp NEB Q8H PRN #30 amp 07/26/18 Mometasone Furoate [Asmanex 220Mcg -] 2 puff IH BID #2 inhaler 07/26/18 Mag Hydrox/Al Hydrox/Simeth [MAALOX *SUSPENSION* -] 30 ml PO Q6H PRN #1 bottle 09/27/18 Polyethylene Glycol 3350 [Miralax 119 gm Btl -] 17 gm PO BID #1 bottle 09/27/18 Sennosides/Docusate Sodium [Senna Laxative Tablet] 1 each PO DAILY #20 tablet Chlorthalidone [Hygroton -] 25 mg PO DAILY #60 tablet 10/14/18 Rosuvastatin [Crestor -] 20 mg PO HS #30 tablet 10/14/18 Amlodipine Besylate [Norvasc -] 10 mg PO DAILY 03/01/19 Arformoterol Tartrate [Brovana] 15 mcg IH DAILY 03/01/19 Budesonide/Formeterol Fumarate [SYMBICORT 160/4.5mcg -] 1 inh PO BID 03/01/19 Diazepam 5 mg PO PRN 03/01/19 HYDROmorphone [Dilaudid -] 4 mg PO Q4H 03/01/19 Lipase/Protease/Amylase [Creon Dr 36,000 Units Capsule] 1 each PO TID 03/01/19 Mesalamine [Pentasa] 500 mg PO TID 03/01/19 Ondansetron [Zofran -] 4 mg PO TID 03/01/19 Oxycodone HCl/Acetaminophen [Oxycodone-Acetaminophen 10-325] 1 each PO BID 03/01 Prednisone 60 mg PO DAILY 03/01/19 Tapentadol ER [Nucynta ER -] 150 mg PO BID 03/01/19 Albuterol Sulfate Inhaler - [Ventolin HFA Inhaler -] 2 puff IH Q4H PRN #1 inhaler 03/16/19 Arformoterol Tartrate [Brovana -] 1 amp NEB RBID #1 pump 03/16/19 Isosorbide Mononitrate [Imdur -] 30 mg PO DAILY #30 tab.sr.24h 03/16/19 Nifedipine ER [Procardia XL -] 30 mg PO DAILY #30 tab.er.24 03/16/19 Nystatin Oral Suspension - [Nystatin Oral Susp 664846 Units/5 ML -] 500,000 units PO Q6HPO #1 bottle 03/16/19 Tiotropium [place] [Spiriva Respimat] 2 puff IH DAILY #1 inhaler 03/16/19 Torsemide [Demadex -] 40 mg PO DAILY #30 tablet 03/16/19 metroNIDAZOLE [Flagyl -] 250 mg PO TID #21 tablet 03/16/19 predniSONE [Deltasone -] 20 mg PO DAILY #30 tablet 03/16/19 hydrALAZINE HCL [Apresoline -] 25 mg PO BID 03/22/19 Family Disease History - Family Disease History Family Disease History: Diabetes: Mother ( 58: diabetic complications), CA: Father ( 49: asbestosis), Respiratory: Brother (bronchial asthma, DVT), Other: Mother, Sister (BCA), Son (2, healthy), Daughter (1, healthy) Review of Systems - Review of Systems Constitutional: reports: Weakness Eyes: reports: Blurred Vision (Right eye) HENT: reports: No Symptoms Neck: reports: No Symptoms Cardiovascular: reports: Chest Pain, Palpitations, Shortness of Breath Respiratory: reports: SOB, SOB on Exertion Gastrointestinal: reports: Constipation, Nausea Genitourinary: reports: Frequency Breasts: reports: No Symptoms Reported Musculoskeletal: reports: Muscle Weakness, Other (leg pain) Integumentary: reports: No Symptoms Neurological: reports: Dizziness, Headache Endocrine: reports: No Symptoms Hematology/Lymphatic: reports: No Symptoms Psychiatric: reports: No Symptoms Physical Examination Vital Signs: Vital Signs Temperature 98.8 F 03/22/19 14:56 Pulse Rate 86 03/22/19 14:56 Respiratory Rate 18 03/22/19 14:56 Blood Pressure 142/65 03/22/19 14:56 O2 Sat by Pulse Oximetry (%) 99 03/22/19 14:56 Constitutional: Yes: No Distress, Anxious Eyes: Yes: Conjunctiva Clear HENT: Yes: Atraumatic Neck: Yes: Supple, Other (trach) Cardiovascular: Yes: Pulse Irregular Respiratory: Yes: Regular, SOB, Wheezes Gastrointestinal: Yes: Normal Bowel Sounds, Soft, Tenderness (diffuse) Musculoskeletal: Yes: Muscle Weakness Extremities: Yes: WNL Edema: Yes Edema: LLE: 1+, RLE: 1+ Neurological: Yes: Alert, Oriented Psychiatric: Yes: Alert, Oriented Labs: CBC, BMP 03/22/19 11:00 03/22/19 11:00 Troponin, BNP 03/22/19 03/22/19 11:00 16:47 Troponin I 0.09 H 0.09 H Imaging - Results Chest X-ray: Report Reviewed EKG: Report Reviewed Problem List - Problems (1) Diastolic CHF Assessment/Plan: -Cardiology on board -Torsemide -daily weights -1L fluid restriction Code(s): I50.30 - UNSPECIFIED DIASTOLIC (CONGESTIVE) HEART FAILURE Qualifiers: Heart failure chronicity: chronic Qualified Code(s): I50.32 - Chronic diastolic (congestive) heart failure (2) Rhabdomyolysis Assessment/Plan: -CK 1365, >1000 -monitor CK for downtrend -Cardiology on board Code(s): M62.82 - RHABDOMYOLYSIS Qualifiers: Rhabdomyolysis type: non-traumatic Qualified Code(s): M62.82 - Rhabdomyolysis (3) BPH (benign prostatic hyperplasia) Assessment/Plan: -Tamsulosin, Finasteride Code(s): N40.0 - BENIGN PROSTATIC HYPERPLASIA WITHOUT LOWER URINRY TRACT SYMP (4) Chest pain Assessment/Plan: -Cardiology on board -Tele monitoring -Troponin 0.09, 0.09 -monitor troponin trend Code(s): R07.9 - CHEST PAIN, UNSPECIFIED Qualifiers: Chest pain type: other chest pain Qualified Code(s): R07.89 - Other chest pain; R07.8 - Other chest pain (5) Constipation Assessment/Plan: -Senna, Miralax Code(s): K59.00 - CONSTIPATION, UNSPECIFIED Qualifiers: Constipation type: unspecified constipation type Qualified Code(s): K59.00 - Constipation, unspecified (6) Elevated LFTs Assessment/Plan: -improved since last admission -AST 80, ALT 136 -monitor LFTs Code(s): R94.5 - ABNORMAL RESULTS OF LIVER FUNCTION STUDIES (7) HTN (hypertension) Assessment/Plan: -Norvasc, Chlorthalidone, Hydralazine, Isosorbide, Nifedipine -low Na diet Code(s): I10 - ESSENTIAL (PRIMARY) HYPERTENSION (8) Hyperlipidemia Assessment/Plan: -Crestor Code(s): E78.5 - HYPERLIPIDEMIA, UNSPECIFIED (9) Intractable low back pain Assessment/Plan: -Dilaudid, Oxycodone, Nucynta Code(s): M54.5 - LOW BACK PAIN (10) Leg edema Assessment/Plan: -Torsemide Code(s): R60.0 - LOCALIZED EDEMA (11) COPD (chronic obstructive pulmonary disease) Assessment/Plan: -Pulm consult -Bronchodilators -prednisone -Spiriva -O2 via NC -Keep SpO2 >90% Code(s): J44.9 - CHRONIC OBSTRUCTIVE PULMONARY DISEASE, UNSPECIFIED (12) Diabetes mellitus Assessment/Plan: -BGM ACHS -ISS -insulin pump -HgA1c Code(s): E11.9 - TYPE 2 DIABETES MELLITUS WITHOUT COMPLICATIONS Qualifiers: Diabetes mellitus type: type 2 (13) Atrial fibrillation with RVR Assessment/Plan: -Cardiology consult -Tele monitoring -Cardizem and Metoprolol -Eliquis Code(s): I48.91 - UNSPECIFIED ATRIAL FIBRILLATION Assessment/Plan see problem list
[2019-03-22] MEDS ORDERED: HYDROmorphone HCL 2 MG TABLET ONE (18:04)
[2019-03-22] MEDS ORDERED: ALBUTEROL SO4 0.083% IH SOL 2.5 MG/3 ML VIAL.NEB. NEB PRN (19:28)
[2019-03-22] MEDS ORDERED: MAG HYDROX/AL HYDROX/SIMETH -MYLANTA- ORAL SUSPENSION PO PRN (19:36)
[2019-03-22] MEDS ORDERED: PATIENT'S OWN MEDICATION (NON-FORMULARY) (Insulin Pump Controller [Snap Insulin Pump Contr MC SCH (19:45)
[2019-03-22] MEDS ORDERED: diazePAM 2 MG TABLET PO PRN (19:45)
[2019-03-22] MEDS ORDERED: ARFORMOTEROL TARTRATE 15 MCG/2 ML VIAL NEB ONE (21:23)
[2019-03-22] MEDS ORDERED: TAPENTADOL HCL 150 MG PO SCH (22:00)
[2019-03-22] MEDS: ACETAMINOPHEN 325 MG TABLET (FP) PO SCH (22:00)
[2019-03-22] MEDS: oxyCODONE HCL 5 MG TABLET PO SCH (22:00)
[2019-03-22] MEDS ORDERED: PATIENT'S OWN MEDICATION (NON-FORMULARY) (Oxycodone Hcl/Acetaminophen [Oxycodone-Acetamino PO SCH (22:00)
[2019-03-22] MEDS ORDERED: PATIENT'S OWN MEDICATION (NON-FORMULARY) (Mesalamine [Pentasa] 500 MG) PO SCH (22:00)
[2019-03-22] MEDS: ROSUVASTATIN CA 20 MG TABLET (FP) PO SCH (22:21)
[2019-03-22] MEDS: hydrALAZINE HCL 25 MG TABLET (FP) PO SCH (22:21)
[2019-03-22] MEDS: APIXABAN 2.5 MG TABLET PO SCH (22:25)
[2019-03-22] MEDS: INSULIN SLIDING SCALE (NOVOLOG) 1 VIAL SQ SCH (22:26)
[2019-03-22] MEDS: POLYETHYLENE GLYCOL 3350 119 GM BTL PO SCH (22:29)
[2019-03-23] MEDS: NYSTATIN 500,000 UNITS/5 ML SUSPENSION PO SCH ×3 (00:01→11:06)
[2019-03-23] MEDS: INSULIN SLIDING SCALE (NOVOLOG) 1 VIAL SQ SCH ×4 (06:40→23:12)
[2019-03-23] MEDS ORDERED: PT OWN MED DRAWER 7, Y5N ONE ×3 (07:03→17:55)
[2019-03-23 07:32] LABS: ALBUMIN 2.4 g/dl (3.4-5.0); BILIRUBIN,TOTAL 0.6 mg/dL (0.2-1); BLOOD UREA NITROGEN 33.5 mg/dL (7-18); CALCIUM 8.2 mg/dL (8.5-10.1); CREATININE 1.9 mg/dL (0.55-1.3); MAGNESIUM 2.4 mg/dL (1.8-2.4); N-TERMINAL BNP 900.2 pg/ml (5-125); PHOSPHOROUS 3.2 mg/dL (2.5-4.9); POTASSIUM 4.2 mmol/L (3.5-5.1); TOT PROT 4.9 g/dl (6.4-8.2)
[2019-03-23 07:43] LABS: BASO % 0.3 % (0-2.0); EOS % 0.7 % (0-4.5); HEMATOCRIT 33.5 % (35.4-49); HEMOGLOBIN 10.9 GM/dL (11.7-16.9); LYMPH % 37.8 % (8-40); MCH 27.1 pg (25.7-33.7); MCHC 32.4 g/dl (32.0-35.9); MEAN CELL VOLUME 83.5 fl (80-96); MEAN PLT VOLUME 7.7 fl (7.5-11.1); MONO % 9.9 % (3.8-10.2); NEUT % 51.3 % (42.8-82.8); PLATELET COUNT 155 K/MM3 (134-434); RBC 4.01 M/mm3 (4.00-5.60); RDW 16.9 % (11.9-15.9); WHITE BLOOD COUNT 6.9 K/mm3 (4.0-10.0)
[2019-03-23] MEDS: LIPASE/PROTEASE/AMYLASE 36,000 UNIT CAPSULE PO SCH ×3 (09:20→18:00)
[2019-03-23] MEDS: TAMSULOSIN HCL 0.4 MG CAP PO SCH (09:20)
[2019-03-23] MEDS ORDERED: ARFORMOTEROL TARTRATE 15 MCG/2 ML VIAL NEB SCH (10:00)
[2019-03-23] MEDS ORDERED: PATIENT'S OWN MEDICATION (NON-FORMULARY) (Tiotropium Bromide [Spiriva] 1 PUFF) IH SCH (10:00)
[2019-03-23] MEDS ORDERED: NIFEdipine E.R. 30 MG TABLET (FP) PO SCH (10:00)
[2019-03-23] MEDS: RAMIPRIL 5 MG CAPSULE (FP) PO SCH (10:58)
[2019-03-23] MEDS: hydrALAZINE HCL 25 MG TABLET (FP) PO SCH ×2 (10:59→22:22)
[2019-03-23] MEDS: ASPIRIN COATED 81 MG TABLET.EC PO SCH (11:00)
[2019-03-23] MEDS: TORSEMIDE 20 MG TABLET (FP) PO SCH (11:00)
[2019-03-23] MEDS: predniSONE 20 MG TABLET (UD) PO SCH (11:00)
[2019-03-23] MEDS: APIXABAN 2.5 MG TABLET PO SCH ×2 (11:01→22:22)
[2019-03-23] MEDS: amLODIPine BESYLATE 10 MG TABLET (FP) PO SCH (11:02)
[2019-03-23] MEDS: ISOSORBIDE MONONITRATE 30 MG TAB.SR.24H (FP) PO SCH (11:02)
[2019-03-23] MEDS: POLYETHYLENE GLYCOL 3350 119 GM BTL PO SCH ×2 (11:02→22:26)
[2019-03-23] MEDS: CHLORTHALIDONE 25 MG TABLET PO SCH (11:02)
[2019-03-23] MEDS: TAPENTADOL HCL 50 MG TAB.ER.12H PO SCH ×3 (11:03→22:20)
[2019-03-23] MEDS: SENNOSIDES/DOCUSATE COMBO (SENNA PLUS) TABLET (UD) PO SCH (11:03)
[2019-03-23] MEDS: FINASTERIDE 5 MG TABLET (FP) PO SCH (11:04)
[2019-03-23] MEDS: MONTELUKAST NA 10 MG TABLET PO SCH (11:04)
[2019-03-23] MEDS: ACETAMINOPHEN 325 MG TABLET (FP) PO SCH ×2 (11:05→22:26)
[2019-03-23] MEDS: oxyCODONE HCL 5 MG TABLET PO SCH ×2 (11:17→22:23)
[2019-03-23] MEDS: metoPROLOL SUCCINATE 25 MG TAB.SR.24H (FP) PO SCH (11:19)
--- NOTE | 2019-03-23 12:35 | PN ---
Progress Note, Physician Chief Complaint: Pt A&Ox3; c/o left LE and lower back pain (acute/chronic), and says he needs IV pain medication. No further chest pain, dyspnea, or palpitations. History of Present Illness: The patient is a 62 year old black male, with a significant PMH of CAD s/p NM, stents x6 (most recently 12/2015), CABG, diastolic CHF (normal LVEF; mild ; moderate LVH; mild pericardial effusion on 03/30 ECHO), HTN, HLD, chronic pancreatitis, chronic back pain, SBO, incarcerated hernia s/p repair x2 (September 2017), H.Pylori, BPH, COPD, bronchial asthma, tracheostomy in place (unplugs when sleeping for GRACIE), and anxiety, who presents to the emergency department from PCP office, Dr. Elaine for new onset rapid AFIB. 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 Patient was seen and admitted here in the ED 03/01/19 -03/18/19 for similar symptoms. He also notes bilateral leg pain and took dilaudid this morning. Patient notes he was suppose to be seen at [facility] for a biopsy of his pancreas. The patient denies shortness of breath, headache and dizziness. Denies fever, chills, nausea, vomiting, diarrhea and constipation. Denies dysuria, frequency, urgency and hematuria. Allergies: hx of "wheezing" with metoprolol-->discontinuation in the past and was started on verapamil in the past. Informatics Scientist: Bola Haskins - Current Medication List Current Medications: Active Medications Acetaminophen (Tylenol -) 325 mg PO BID [facility] Last Admin: 03/23/19 11:05 Dose: 325 mg Al Hydroxide/Mg Hydroxide (Mylanta Suspension -) 30 ml PO Q6H PRN PRN Reason: DYSPEPSIA Albuterol Sulfate (Ventolin 0.083% Nebulizer Soln -) 1 amp NEB Q8H PRN PRN Reason: WHEEZING Amlodipine Besylate (Norvasc -) 10 mg PO DAILY [facility] Last Admin: 03/23/19 11:02 Dose: 10 mg Apixaban (Eliquis -) 2.5 mg PO BID [facility] Last Admin: 03/23/19 11:01 Dose: 2.5 mg Arformoterol Tartrate (Brovana (Restricted To Pulmonology/Resp) -) 1 amp NEB RBID [facility] Aspirin (Ecotrin -) 81 mg PO DAILY [facility] Last Admin: 03/23/19 11:00 Dose: 81 mg Chlorthalidone (Hygroton -) 25 mg PO DAILY [facility] Last Admin: 03/23/19 11:02 Dose: 25 mg Diazepam (Valium -) 5 mg PO Q8H PRN PRN Reason: ANXIETY Diltiazem HCl (Cardizem Cd -) 120 mg PO DAILY [facility] Last Admin: 03/23/19 11:00 Dose: 120 mg Finasteride (Proscar -) 5 mg PO DAILY [facility] Last Admin: 03/23/19 11:04 Dose: 5 mg Hydralazine HCl (Apresoline -) 25 mg PO BID [facility] Last Admin: 03/23/19 10:59 Dose: 25 mg Hydromorphone HCl (Dilaudid -) 4 mg PO Q4H PRN PRN Reason: PAIN LEVEL 7 - 10 Last Admin: 03/23/19 06:38 Dose: 4 mg Insulin Aspart (Novolog Vial Sliding Scale -) 1 vial SQ [facility]; Protocol Last Admin: 03/23/19 06:40 Dose: 6 units Isosorbide Mononitrate (Imdur -) 30 mg PO DAILY [facility] Last Admin: 03/23/19 11:02 Dose: 30 mg Metoprolol Succinate (Toprol Xl -) 12.5 mg PO DAILY [facility] Last Admin: 03/23/19 11:19 Dose: 12.5 mg Montelukast Sodium (Singulair -) 10 mg PO DAILY [facility] Last Admin: 03/23/19 11:04 Dose: 10 mg Nifedipine (Procardia Xl -) 30 mg PO DAILY [facility] Last Admin: 03/23/19 11:04 Dose: 30 mg Non-Formulary Medication (Mesalamine [Pentasa]) 500 mg PO TID [facility] Nystatin (Nystatin Oral Suspension -) 500,000 units PO Q6HPO [facility] Last Admin: 03/23/19 11:06 Dose: 500,000 units Oxycodone HCl (Roxicodone -) 10 mg PO BID [facility] Last Admin: 03/23/19 11:17 Dose: 10 mg Pancrelipase (Creon Dr 36,000 Units Capsule) 1 cap PO TIDCM [facility] Last Admin: 03/23/19 09:20 Dose: Not Given Polyethylene Glycol (Miralax (For Daily Use) -) 17 gm PO BID [facility] Last Admin: 03/23/19 11:02 Dose: 17 gm Prednisone (Deltasone -) 20 mg PO DAILY [facility] Last Admin: 03/23/19 11:00 Dose: 20 mg Ramipril (Altace -) 10 mg PO DAILY [facility] Last Admin: 03/23/19 10:58 Dose: 10 mg Rosuvastatin Calcium (Crestor -) 20 mg PO HS [facility] Last Admin: 03/22/19 22:21 Dose: 20 mg Senna/Docusate Sodium (Pericolace -) 1 tablet PO DAILY [facility] Last Admin: 03/23/19 11:03 Dose: 1 tablet Tamsulosin HCl (Flomax -) 0.4 mg PO DAILY@0830 [facility] Last Admin: 03/23/19 09:20 Dose: 0.4 mg Tapentadol (Nucynta Er -) 150 mg PO BID [facility] Last Admin: 03/23/19 11:03 Dose: 150 mg Tiotropium [place] (Spiriva Respimat) 2 puff IH DAILY [facility] Torsemide (Demadex -) 40 mg PO DAILY [facility] Last Admin: 03/23/19 11:00 Dose: 40 mg - Objective Vital Signs: Vital Signs Temperature 99.5 F 03/23/19 10:00 Pulse Rate 63 03/23/19 10:00 Respiratory Rate 18 03/23/19 10:00 Blood Pressure 124/64 03/23/19 10:00 O2 Sat by Pulse Oximetry (%) 99 03/23/19 09:00 Constitutional: Yes: Anxious, Obese Eyes: Yes: WNL HENT: Yes: WNL, Other (tracheostomy site dry) Cardiovascular: Yes: S1 (varies in intensity), S2 Respiratory: Yes: Regular Gastrointestinal: Yes: Soft, Abdomen, Obese ...Rectal Exam: Yes: Deferred Genitourinary: No: Anuria Breast(s): Yes: WNL Musculoskeletal: Yes: Back Pain, Muscle Weakness Extremities: Yes: WNL Edema: No Peripheral Pulses WNL: Yes Integumentary: Yes: WNL Neurological: Yes: Alert, Oriented Psychiatric: Yes: Other (substance dependent) Labs: CBC, BMP 03/23/19 05:18 03/23/19 05:18 INR, PTT INR 1.05 (0.83-1.09) 03/22/19 11:00 - ....Imaging Chest X-ray: Image Reviewed EKG: Image Reviewed Other: Image Reviewed (telemetry: AF) Problem List - Problems (1) Anxiety Code(s): F41.9 - ANXIETY DISORDER, UNSPECIFIED (2) Atrial fibrillation with RVR Assessment/Plan: Hx of "wheezing" when on metoprolol in the past; will discontinue it. Continue diltiazem for HR (but follow HR carefully, as pt also says he was on verapamil in the past for years (?for HTN), but it had to be stopped because of development of bradycardia. He will benefit from EP evaluation as an outpatient. Stop nifedipine, now that he is on diltiazem (per pharmacy, amlodipine can be continued, and is sometimes used in combination with either diltiazem or verapamil if ACEI was to be used but had led to angioedema). On apixaban (started low dose due to renal insufficiency; review renal status). ECHO: normal LVEF; reportedly normal atrial sizes. Code(s): I48.91 - UNSPECIFIED ATRIAL FIBRILLATION (3) Diastolic CHF Code(s): I50.30 - UNSPECIFIED DIASTOLIC (CONGESTIVE) HEART FAILURE Qualifiers: Heart failure chronicity: chronic Qualified Code(s): I50.32 - Chronic diastolic (congestive) heart failure (4) HTN (hypertension) Code(s): I10 - ESSENTIAL (PRIMARY) HYPERTENSION (5) Hx of heart artery stent Code(s): Z95.5 - PRESENCE OF CORONARY ANGIOPLASTY IMPLANT AND GRAFT (6) Hyperlipidemia Code(s): E78.5 - HYPERLIPIDEMIA, UNSPECIFIED (7) Intractable low back pain Code(s): M54.5 - LOW BACK PAIN (8) Opiate dependence Assessment/Plan: Pt is asking for IV dilaudid. Recommend pain management evaluation. Code(s): F11.20 - OPIOID DEPENDENCE, UNCOMPLICATED (9) Renal insufficiency Code(s): N28.9 - DISORDER OF KIDNEY AND URETER, UNSPECIFIED (10) COPD (chronic obstructive pulmonary disease) Code(s): J44.9 - CHRONIC OBSTRUCTIVE PULMONARY DISEASE, UNSPECIFIED (11) Diabetes mellitus Code(s): E11.9 - TYPE 2 DIABETES MELLITUS WITHOUT COMPLICATIONS Qualifiers: Diabetes mellitus type: type 2 (12) GRACIE (obstructive sleep apnea) Code(s): G47.33 - OBSTRUCTIVE SLEEP APNEA (ADULT) (PEDIATRIC) (13) Obesity Code(s): E66.9 - OBESITY, UNSPECIFIED (14) Tracheostomy in place Code(s): Z98.89 - OTHER SPECIFIED POSTPROCEDURAL STATES * DO NOT USE *
[2019-03-23] MEDS: TIOTROPIUM BROMIDE 2.5 MCG (SPIRIVA) RESPIMAT INHALER IH SCH (12:59)
--- NOTE | 2019-03-23 13:23 | PN ---
Progress Note, Physician Chief Complaint: pateint admitted for elevated heart rate - Current Medication List Current Medications: Active Medications Acetaminophen (Tylenol -) 325 mg PO BID [facility] Last Admin: 03/23/19 11:05 Dose: 325 mg Al Hydroxide/Mg Hydroxide (Mylanta Suspension -) 30 ml PO Q6H PRN PRN Reason: DYSPEPSIA Albuterol Sulfate (Ventolin 0.083% Nebulizer Soln -) 1 amp NEB Q8H PRN PRN Reason: WHEEZING Amlodipine Besylate (Norvasc -) 10 mg PO DAILY [facility] Last Admin: 03/23/19 11:02 Dose: 10 mg Apixaban (Eliquis -) 2.5 mg PO BID [facility] Last Admin: 03/23/19 11:01 Dose: 2.5 mg Arformoterol Tartrate (Brovana (Restricted To Pulmonology/Resp) -) 1 amp NEB RBID [facility] Aspirin (Ecotrin -) 81 mg PO DAILY [facility] Last Admin: 03/23/19 11:00 Dose: 81 mg Chlorthalidone (Hygroton -) 25 mg PO DAILY [facility] Last Admin: 03/23/19 11:02 Dose: 25 mg Diazepam (Valium -) 5 mg PO Q8H PRN PRN Reason: ANXIETY Diltiazem HCl (Cardizem Cd -) 120 mg PO DAILY [facility] Last Admin: 03/23/19 11:00 Dose: 120 mg Finasteride (Proscar -) 5 mg PO DAILY [facility] Last Admin: 03/23/19 11:04 Dose: 5 mg Hydralazine HCl (Apresoline -) 25 mg PO BID [facility] Last Admin: 03/23/19 10:59 Dose: 25 mg Hydromorphone HCl (Dilaudid -) 4 mg PO Q4H PRN PRN Reason: PAIN LEVEL 7 - 10 Last Admin: 03/23/19 06:38 Dose: 4 mg Insulin Aspart (Novolog Vial Sliding Scale -) 1 vial SQ ACHS [facility]; Protocol Last Admin: 03/23/19 13:04 Dose: 8 units Isosorbide Mononitrate (Imdur -) 30 mg PO DAILY [facility] Last Admin: 03/23/19 11:02 Dose: 30 mg Montelukast Sodium (Singulair -) 10 mg PO DAILY [facility] Last Admin: 03/23/19 11:04 Dose: 10 mg Non-Formulary Medication (Mesalamine [Pentasa]) 500 mg PO TID [facility] Nystatin (Nystatin Oral Suspension -) 500,000 units PO Q6HPO [facility] Last Admin: 03/23/19 11:06 Dose: 500,000 units Oxycodone HCl (Roxicodone -) 10 mg PO BID [facility] Last Admin: 03/23/19 11:17 Dose: 10 mg Pancrelipase (Creon Dr 36,000 Units Capsule) 1 cap PO TIDCM [facility] Last Admin: 03/23/19 13:00 Dose: 1 cap Polyethylene Glycol (Miralax (For Daily Use) -) 17 gm PO BID [facility] Last Admin: 03/23/19 11:02 Dose: 17 gm Prednisone (Deltasone -) 20 mg PO DAILY [facility] Last Admin: 03/23/19 11:00 Dose: 20 mg Ramipril (Altace -) 10 mg PO DAILY [facility] Last Admin: 03/23/19 10:58 Dose: 10 mg Rosuvastatin Calcium (Crestor -) 20 mg PO HS [facility] Last Admin: 03/22/19 22:21 Dose: 20 mg Senna/Docusate Sodium (Pericolace -) 1 tablet PO DAILY [facility] Last Admin: 03/23/19 11:03 Dose: 1 tablet Tamsulosin HCl (Flomax -) 0.4 mg PO DAILY@0830 [facility] Last Admin: 03/23/19 09:20 Dose: 0.4 mg Tapentadol (Nucynta Er -) 150 mg PO BID [facility] Last Admin: 03/23/19 11:03 Dose: 150 mg Tiotropium [place] (Spiriva Respimat) 2 puff IH DAILY [facility] Last Admin: 03/23/19 12:59 Dose: 2 puff Torsemide (Demadex -) 40 mg PO DAILY [facility] Last Admin: 03/23/19 11:00 Dose: 40 mg - Objective Vital Signs: Vital Signs Temperature 99.5 F 03/23/19 10:00 Pulse Rate 63 03/23/19 10:00 Respiratory Rate 18 03/23/19 10:00 Blood Pressure 124/64 03/23/19 10:00 O2 Sat by Pulse Oximetry (%) 99 03/23/19 09:00 Constitutional: Yes: Calm Cardiovascular: Yes: Regular Rate and Rhythm, S1, S2 Respiratory: Yes: Diminished Gastrointestinal: Yes: Normal Bowel Sounds, Soft Neurological: Yes: Alert, Oriented Labs: CBC, BMP 03/23/19 05:18 03/23/19 05:18 INR, PTT INR 1.05 (0.83-1.09) 03/22/19 11:00 Problem List - Problems (1) Atrial fibrillation with RVR Assessment/Plan: amlodipine and diltiazem cardiology consult telemetry Code(s): I48.91 - UNSPECIFIED ATRIAL FIBRILLATION (2) BPH (benign prostatic hyperplasia) Assessment/Plan: finastertide Code(s): N40.0 - BENIGN PROSTATIC HYPERPLASIA WITHOUT LOWER URINRY TRACT SYMP (3) HTN (hypertension) Assessment/Plan: hydralazine Code(s): I10 - ESSENTIAL (PRIMARY) HYPERTENSION (4) Hyperlipidemia Assessment/Plan: statin Code(s): E78.5 - HYPERLIPIDEMIA, UNSPECIFIED (5) Chronic pain Assessment/Plan: dilaudid oral not iv gabapentin Code(s): G89.29 - OTHER CHRONIC PAIN (6) Chronic pancreatitis Assessment/Plan: pancreatic enzymes Code(s): K86.1 - OTHER CHRONIC PANCREATITIS
--- NOTE | 2019-03-23 14:35 | CON.PULM ---
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 Found to be in new onset atrial fibrillation with RVR. Reports some shortness of breath different from his usual asthma. Was feeling more bloated as well. No fevers, chills or sweats. 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 Planned EMG/ NCVs studies and evaluation of motor weakness in process by treating neurologist Dr. Singh) Cardio/Vascular: Yes: CAD (Last stents placed x 2 last year per patient), CHF (s /p IN several years ago; s/p stenting. mild CHF in the past.), HTN, Hyperlipdemia, IN, Pulmonary Hypertension Pulmonary: Yes: Asthma, COPD, Sleep Apnea Gastrointestinal: Yes: Constipation, Pancreatitis (? history of chronic pancreatitis with episodes of acute pancreatitis), Other (FECAL INCONTINENCE SECONDARY TO OVERFLOW followed by Dr. Abdoulaye Wu, IPMN, PANCREATITIS . HAD EPISODE OF ISCHEMIC COLITIS LAST ADMISSION) Renal/: Yes: BPH Psych: Yes: Depression Musculoskeletal: Yes: Chronic low back pain (has back stimulator), Other ( CHRONIC NECK PAIN s/p Lumbar and Cervical fusion ) Endocrine: Yes: Diabetes Mellitus (has insulin pump) - Past Surgical History Past Surgical History: Yes: Breast Biopsy, Colonoscopy, Laminectomy, Stent (1 non eluting, 5 eluting) - Alcohol/Substance Use Hx Alcohol Use: No History of Substance Use: reports: None, Prescription (opiates for chronic pain post cervical spine surgery. 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 History of Recent Travel: No Home Medications - Allergies Allergies/Adverse Reactions: Allergies Allergy/AdvReac Type Severity Reaction Status Date / Time shellfish derived Allergy Severe Verified 03/22/19 10:29 Tetracyclines Allergy Severe Verified 03/22/19 10:29 metoprolol Allergy wheezing Verified 03/23/19 13:10 - Home Medications Home Medications: Ambulatory Orders Albuterol Sulfate Inhaler - [Ventolin HFA Inhaler -] 1 - 2 inh PO Q4H PRN Arformoterol Tartrate [Brovana] 15 mcg IH ASDIR 08/18/17 Aspirin [Aspirin EC] 81 mg PO DAILY 08/18/17 Clopidogrel Bisulfate [Plavix] 75 mg PO DAILY 08/18/17 Dexlansoprazole [Dexilant] 30 mg PO DAILY 08/18/17 Insulin Pump Controller [Snap Insulin Pump Controller] 1 each ASDIR 08/18/17 Montelukast Sodium [Singulair] 10 mg PO DAILY 08/18/17 Tiotropium [place] [Spiriva] 1 puff IH DAILY 08/18/17 Finasteride [Proscar -] 5 mg PO DAILY tablet 09/20/17 Lipase/Protease/Amylase [Stacy Hackett 36,000 Units Capsule] 1 cap PO TIDCM capsule. 09/20/17 Ramipril [Altace] 10 mg PO DAILY capsule 09/20/17 Tamsulosin HCl [Flomax -] 0.4 mg PO DAILY@0830 cap.er.24h 09/20/17 Amitriptyline HCl [Elavil -] 75 mg PO DAILY 03/30/18 Gabapentin 800 mg PO TID 03/30/18 Albuterol 0.083% Nebulizer Elena [Ventolin 0.083% Nebulizer Soln -] 1 amp NEB Q8H PRN #30 amp 07/26/18 Mometasone Furoate [Asmanex 220Mcg -] 2 puff IH BID #2 inhaler 07/26/18 Mag Hydrox/Al Hydrox/Simeth [MAALOX *SUSPENSION* -] 30 ml PO Q6H PRN #1 bottle 09/27/18 Polyethylene Glycol 3350 [Miralax 119 gm Btl -] 17 gm PO BID #1 bottle 09/27/18 Sennosides/Docusate Sodium [Senna Laxative Tablet] 1 each PO DAILY #20 tablet Chlorthalidone [Hygroton -] 25 mg PO DAILY #60 tablet 10/14/18 Rosuvastatin [Crestor -] 20 mg PO HS #30 tablet 10/14/18 Amlodipine Besylate [Norvasc -] 10 mg PO DAILY 03/01/19 Arformoterol Tartrate [Brovana] 15 mcg IH DAILY 03/01/19 Budesonide/Formeterol Fumarate [SYMBICORT 160/4.5mcg -] 1 inh PO BID 03/01/19 Diazepam 5 mg PO PRN 03/01/19 HYDROmorphone [Dilaudid -] 4 mg PO Q4H 03/01/19 Lipase/Protease/Amylase [Creon Dr 36,000 Units Capsule] 1 each PO TID 03/01/19 Mesalamine [Pentasa] 500 mg PO TID 03/01/19 Ondansetron [Zofran -] 4 mg PO TID 03/01/19 Oxycodone HCl/Acetaminophen [Oxycodone-Acetaminophen 10-325] 1 each PO BID 03/01 Prednisone 60 mg PO DAILY 03/01/19 Tapentadol ER [Nucynta ER -] 150 mg PO BID 03/01/19 Albuterol Sulfate Inhaler - [Ventolin HFA Inhaler -] 2 puff IH Q4H PRN #1 inhaler 03/16/19 Arformoterol Tartrate [Brovana -] 1 amp NEB RBID #1 pump 03/16/19 Isosorbide Mononitrate [Imdur -] 30 mg PO DAILY #30 tab.sr.24h 03/16/19 Nifedipine ER [Procardia XL -] 30 mg PO DAILY #30 tab.er.24 03/16/19 Nystatin Oral Suspension - [Nystatin Oral Susp 240287 Units/5 ML -] 500,000 units PO Q6HPO #1 bottle 03/16/19 Tiotropium [place] [Spiriva Respimat] 2 puff IH DAILY #1 inhaler 03/16/19 Torsemide [Demadex -] 40 mg PO DAILY #30 tablet 03/16/19 metroNIDAZOLE [Flagyl -] 250 mg PO TID #21 tablet 03/16/19 predniSONE [Deltasone -] 20 mg PO DAILY #30 tablet 03/16/19 hydrALAZINE HCL [Apresoline -] 25 mg PO BID 03/22/19 Family Disease History - Family Disease History Family Disease History: Diabetes: Mother ( 58: diabetic complications), CA: Father ( 49: asbestosis), Respiratory: Brother (bronchial asthma, DVT), Other: Mother, Sister (BCA), Son (2, healthy), Daughter (1, healthy) Review of Systems - Review of Systems Constitutional: reports: Diaphoresis, Weakness. denies: Chills, Lethargy Eyes: denies: Recent Change in Vision HENT: denies: Nasal Congestion, Throat Pain Neck: denies: Stiffness, Tenderness Cardiovascular: reports: Chest Pain, Edema, Shortness of Breath. denies: Palpitations Respiratory: denies: Cough, Hemoptysis, Wheezing Gastrointestinal: denies: Abdominal Pain, Nausea, Vomiting Genitourinary: denies: Dysuria, Hematuria Neurological: denies: Dizziness, Headache Endocrine: denies: Unexplained Weight Loss Physical Exam Vital Sings: Vital Signs Temperature 99.5 F 03/23/19 10:00 Pulse Rate 63 03/23/19 10:00 Respiratory Rate 18 03/23/19 10:00 Blood Pressure 124/64 03/23/19 10:00 O2 Sat by Pulse Oximetry (%) 99 03/23/19 09:00 Constitutional: Yes: Calm Eyes: Yes: Conjunctiva Clear, EOM Intact HENT: Yes: Atraumatic, Normocephalic Neck: Yes: Supple, Trachea Midline Cardiovascular: Yes: Regular Rate and Rhythm Respiratory: Yes: Wheezes (scattered) ...Clubbing: No Gastrointestinal: Yes: Normal Bowel Sounds, Soft. No: Tenderness Edema: No Neurological: Yes: Alert, Oriented Labs: CBC, BMP 03/23/19 05:18 03/23/19 05:18 Imaging - Results Chest X-ray: Report Reviewed, Image Reviewed (cardiomegaly, no infiltrates) Problem List - Problems (1) Atrial fibrillation with RVR Code(s): I48.91 - UNSPECIFIED ATRIAL FIBRILLATION (2) Chest pain Code(s): R07.9 - CHEST PAIN, UNSPECIFIED Qualifiers: Chest pain type: other chest pain Qualified Code(s): R07.89 - Other chest pain; R07.8 - Other chest pain (3) HTN (hypertension) Code(s): I10 - ESSENTIAL (PRIMARY) HYPERTENSION (4) Opiate dependence Code(s): F11.20 - OPIOID DEPENDENCE, UNCOMPLICATED (5) COPD (chronic obstructive pulmonary disease) Code(s): J44.9 - CHRONIC OBSTRUCTIVE PULMONARY DISEASE, UNSPECIFIED (6) Coronary artery disease Code(s): I25.10 - ATHSCL HEART DISEASE OF [place] CORONARY ARTERY W/O ANG PCTRS (7) Diabetes mellitus Code(s): E11.9 - TYPE 2 DIABETES MELLITUS WITHOUT COMPLICATIONS Qualifiers: Diabetes mellitus type: type 2 (8) GRACIE (obstructive sleep apnea) Code(s): G47.33 - OBSTRUCTIVE SLEEP APNEA (ADULT) (PEDIATRIC) Assessment/Plan Atrial Fibrillation with RVR LV Diastolic Dysfunction CAD s/p CABG COPD/asthma Opiate Dependence Obstructive Sleep Apnea s/p Tracheostomy Chronic Pancreatitis HTN Hyperlipidemia - rate/rhythm control - continue anticoagulation - lung exam not significantly different from baseline, would continue home dose prednisone - inhaled bronchodilators - O2 to keep SpO2 >90% - uncap tracheostomy while sleeping - telemetry monitoring Thank you for this consult Bola Morgan MD
--- NOTE | 2019-03-23 15:26 | EKG ---
Test Reason : Blood Pressure : / mmHG Vent. Rate : 072 BPM Atrial Rate : 072 BPM P-R Int : 168 ms QRS Dur : 092 ms QT Int : 408 ms P-R-T Axes : 000 -04 -03 degrees QTc Int : 446 ms ATRIAL FLUTTER WITH VARIABLE A-V BLOCK INFERIOR INFARCT , AGE UNDETERMINED ABNORMAL ECG Confirmed by CONCETTA BULLARD, PAULA ([id number]) on 03/23/2019 3:26:20 PM Referred By: LULA GODINEZ DR Confirmed By:PAULA HYLTON MD
--- NOTE | 2019-03-23 15:30 | EKG ---
Test Reason : Blood Pressure : / mmHG Vent. Rate : 109 BPM Atrial Rate : 120 BPM P-R Int : 172 ms QRS Dur : 096 ms QT Int : 356 ms P-R-T Axes : 006 013 045 degrees QTc Int : 479 ms ATRIAL FIBRILLATION WITH RAPID VENTRICULAR RESPONSE ABNORMAL ECG Confirmed by PAULA HYLTON MD ([id number]) on 03/23/2019 3:30:32 PM Referred By: Confirmed By:PAULA HYLTON MD
[2019-03-23] MEDS: ARFORMOTEROL TARTRATE 15 MCG/2 ML VIAL NEB SCH (20:50)
[2019-03-23] MEDS: ROSUVASTATIN CA 20 MG TABLET (FP) PO SCH (22:21)
[2019-03-23] MEDS ORDERED: INSULIN (NOVOLOG) ASPART 100 UNITS/ML 10ML VIAL SQ ONE (22:39)
[2019-03-24] MEDS ORDERED: INSULIN (NOVOLOG) ASPART 100 UNITS/ML 10ML VIAL SQ ONE ×2 (06:47→16:58)
[2019-03-24] MEDS: INSULIN SLIDING SCALE (NOVOLOG) 1 VIAL SQ SCH ×2 (06:56→17:01)
[2019-03-24] MEDS: ARFORMOTEROL TARTRATE 15 MCG/2 ML VIAL NEB SCH ×2 (07:35→20:25)
[2019-03-24] MEDS: LIPASE/PROTEASE/AMYLASE 36,000 UNIT CAPSULE PO SCH ×3 (10:01→17:26)
[2019-03-24] MEDS: hydrALAZINE HCL 25 MG TABLET (FP) PO SCH ×2 (10:02→21:52)
[2019-03-24] MEDS: TAMSULOSIN HCL 0.4 MG CAP PO SCH (10:02)
[2019-03-24] MEDS: TORSEMIDE 20 MG TABLET (FP) PO SCH (10:02)
[2019-03-24] MEDS: predniSONE 20 MG TABLET (UD) PO SCH (10:02)
[2019-03-24] MEDS: MONTELUKAST NA 10 MG TABLET PO SCH (10:03)
[2019-03-24] MEDS: APIXABAN 2.5 MG TABLET PO SCH ×2 (10:03→21:51)
[2019-03-24] MEDS: ASPIRIN COATED 81 MG TABLET.EC PO SCH (10:03)
[2019-03-24] MEDS: ACETAMINOPHEN 325 MG TABLET (FP) PO SCH ×2 (10:04→21:53)
[2019-03-24] MEDS: ISOSORBIDE MONONITRATE 30 MG TAB.SR.24H (FP) PO SCH (10:04)
[2019-03-24] MEDS: amLODIPine BESYLATE 10 MG TABLET (FP) PO SCH (10:04)
[2019-03-24] MEDS: TIOTROPIUM BROMIDE 2.5 MCG (SPIRIVA) RESPIMAT INHALER IH SCH (10:05)
[2019-03-24] MEDS: oxyCODONE HCL 5 MG TABLET PO SCH ×2 (10:06→21:52)
[2019-03-24] MEDS: POLYETHYLENE GLYCOL 3350 119 GM BTL PO SCH ×2 (10:08→21:51)
[2019-03-24] MEDS: RAMIPRIL 5 MG CAPSULE (FP) PO SCH (10:16)
[2019-03-24] MEDS: CHLORTHALIDONE 25 MG TABLET PO SCH (10:17)
[2019-03-24] MEDS: SENNOSIDES/DOCUSATE COMBO (SENNA PLUS) TABLET (UD) PO SCH (10:17)
[2019-03-24] MEDS: FINASTERIDE 5 MG TABLET (FP) PO SCH (10:19)
--- NOTE | 2019-03-24 11:06 | PN ---
Progress Note, Physician History of Present Illness: pulmonary alert,feeling better,-cp,-sob.HR improved - Current Medication List Current Medications: Active Medications Acetaminophen (Tylenol -) 325 mg PO BID [facility] Last Admin: 03/24/19 10:04 Dose: 325 mg Al Hydroxide/Mg Hydroxide (Mylanta Suspension -) 30 ml PO Q6H PRN PRN Reason: DYSPEPSIA Albuterol Sulfate (Ventolin 0.083% Nebulizer Soln -) 1 amp NEB Q8H PRN PRN Reason: WHEEZING Amlodipine Besylate (Norvasc -) 10 mg PO DAILY [facility] Last Admin: 03/24/19 10:04 Dose: 10 mg Apixaban (Eliquis -) 2.5 mg PO BID [facility] Last Admin: 03/24/19 10:03 Dose: 2.5 mg Arformoterol Tartrate (Brovana (Restricted To Pulmonology/Resp) -) 1 amp NEB RBID [facility] Last Admin: 03/24/19 07:35 Dose: 1 amp Aspirin (Ecotrin -) 81 mg PO DAILY [facility] Last Admin: 03/24/19 10:03 Dose: 81 mg Chlorthalidone (Hygroton -) 25 mg PO DAILY [facility] Last Admin: 03/24/19 10:17 Dose: 25 mg Diazepam (Valium -) 5 mg PO Q8H PRN PRN Reason: ANXIETY Diltiazem HCl (Cardizem Cd -) 120 mg PO DAILY [facility] Last Admin: 03/24/19 10:02 Dose: 120 mg Finasteride (Proscar -) 5 mg PO DAILY [facility] Last Admin: 03/24/19 10:19 Dose: 5 mg Hydralazine HCl (Apresoline -) 25 mg PO BID [facility] Last Admin: 03/24/19 10:02 Dose: 25 mg Hydromorphone HCl (Dilaudid -) 4 mg PO Q4H PRN PRN Reason: PAIN LEVEL 7 - 10 Last Admin: 03/24/19 05:04 Dose: 4 mg Insulin Aspart (Novolog Vial Sliding Scale -) [facility]; Protocol Last Admin: 03/24/19 06:56 Dose: 10 units Isosorbide Mononitrate (Imdur -) 30 mg PO DAILY [facility] Last Admin: 03/24/19 10:04 Dose: 30 mg Montelukast Sodium (Singulair -) 10 mg PO DAILY [facility] Last Admin: 03/24/19 10:03 Dose: 10 mg Oxycodone HCl (Roxicodone -) 10 mg PO BID [facility] Last Admin: 03/24/19 10:06 Dose: 10 mg Pancrelipase (Creon Dr 36,000 Units Capsule) 1 cap PO TIDCM [facility] Last Admin: 03/24/19 10:01 Dose: 1 cap Polyethylene Glycol (Miralax (For Daily Use) -) 17 gm PO BID [facility] Last Admin: 03/24/19 10:08 Dose: Not Given Prednisone (Deltasone -) 20 mg PO DAILY [facility] Last Admin: 03/24/19 10:02 Dose: 20 mg Ramipril (Altace -) 10 mg PO DAILY [facility] Last Admin: 03/24/19 10:16 Dose: 10 mg Rosuvastatin Calcium (Crestor -) 20 mg PO HS [facility] Last Admin: 03/23/19 22:21 Dose: 20 mg Senna/Docusate Sodium (Pericolace -) 1 tablet PO DAILY [facility] Last Admin: 03/24/19 10:17 Dose: 1 tablet Tamsulosin HCl (Flomax -) 0.4 mg PO DAILY@0830 [facility] Last Admin: 03/24/19 10:02 Dose: 0.4 mg Tapentadol (Nucynta Er -) 150 mg PO BID [facility] Last Admin: 03/23/19 22:20 Dose: 150 mg Tiotropium [place] (Spiriva Respimat) 2 puff IH DAILY [facility] Last Admin: 03/24/19 10:05 Dose: 2 puff Torsemide (Demadex -) 40 mg PO DAILY [facility] Last Admin: 03/24/19 10:02 Dose: 40 mg - Objective Vital Signs: Vital Signs Temperature 98.0 F 03/24/19 05:00 Pulse Rate 57 L 03/24/19 05:00 Respiratory Rate 20 03/24/19 05:00 Blood Pressure 114/52 L 03/24/19 05:00 O2 Sat by Pulse Oximetry (%) 100 03/23/19 21:00 Constitutional: Yes: Calm, Obese HENT: Yes: WNL Neck: Yes: WNL Cardiovascular: Yes: Pulse Irregular, S1, S2 Respiratory: Yes: CTA Bilaterally Gastrointestinal: Yes: Normal Bowel Sounds, Soft Extremities: Yes: WNL Edema: Yes Assessment/Plan Problem List - Problems (1) Atrial fibrillation with RVR Code(s): I48.91 - UNSPECIFIED ATRIAL FIBRILLATION (2) Chest pain Code(s): R07.9 - CHEST PAIN, UNSPECIFIED Qualifiers: Chest pain type: other chest pain Qualified Code(s): R07.89 - Other chest pain; R07.8 - Other chest pain (3) HTN (hypertension) Code(s): I10 - ESSENTIAL (PRIMARY) HYPERTENSION (4) Opiate dependence Code(s): F11.20 - OPIOID DEPENDENCE, UNCOMPLICATED (5) COPD (chronic obstructive pulmonary disease) Code(s): J44.9 - CHRONIC OBSTRUCTIVE PULMONARY DISEASE, UNSPECIFIED (6) Coronary artery disease Code(s): I25.10 - ATHSCL HEART DISEASE OF [place] CORONARY ARTERY W/O ANG PCTRS (7) Diabetes mellitus Code(s): E11.9 - TYPE 2 DIABETES MELLITUS WITHOUT COMPLICATIONS Qualifiers: Diabetes mellitus type: type 2 (8) GRACIE (obstructive sleep apnea) Code(s): G47.33 - OBSTRUCTIVE SLEEP APNEA (ADULT) (PEDIATRIC) Assessment/Plan Atrial Fibrillation with RVR improved LV Diastolic Dysfunction CAD s/p CABG COPD/asthma Opiate Dependence Obstructive Sleep Apnea s/p Tracheostomy Chronic Pancreatitis HTN Hyperlipidemia - rate/rhythm control - anticoagulation - continue home dose prednisone - inhaled bronchodilators - O2 to keep SpO2 >90% - uncap tracheostomy while sleeping DR VANESSA
[2019-03-24] MEDS: TAPENTADOL HCL 50 MG TAB.ER.12H PO SCH ×2 (11:07→21:52)
--- NOTE | 2019-03-24 12:48 | PN ---
Progress Note, Physician Chief Complaint: pateint seen and examined feeling better - Current Medication List Current Medications: Active Medications Acetaminophen (Tylenol -) 325 mg PO BID [facility] Last Admin: 03/24/19 10:04 Dose: 325 mg Al Hydroxide/Mg Hydroxide (Mylanta Suspension -) 30 ml PO Q6H PRN PRN Reason: DYSPEPSIA Albuterol Sulfate (Ventolin 0.083% Nebulizer Soln -) 1 amp NEB Q8H PRN PRN Reason: WHEEZING Amlodipine Besylate (Norvasc -) 10 mg PO DAILY [facility] Last Admin: 03/24/19 10:04 Dose: 10 mg Apixaban (Eliquis -) 2.5 mg PO BID [facility] Last Admin: 03/24/19 10:03 Dose: 2.5 mg Arformoterol Tartrate (Brovana (Restricted To Pulmonology/Resp) -) 1 amp NEB RBID [facility] Last Admin: 03/24/19 07:35 Dose: 1 amp Aspirin (Ecotrin -) 81 mg PO DAILY [facility] Last Admin: 03/24/19 10:03 Dose: 81 mg Chlorthalidone (Hygroton -) 25 mg PO DAILY [facility] Last Admin: 03/24/19 10:17 Dose: 25 mg Diazepam (Valium -) 5 mg PO Q8H PRN PRN Reason: ANXIETY Diltiazem HCl (Cardizem Cd -) 120 mg PO DAILY [facility] Last Admin: 03/24/19 10:02 Dose: 120 mg Finasteride (Proscar -) 5 mg PO DAILY [facility] Last Admin: 03/24/19 10:19 Dose: 5 mg Hydralazine HCl (Apresoline -) 25 mg PO BID [facility] Last Admin: 03/24/19 10:02 Dose: 25 mg Hydromorphone HCl (Dilaudid -) 4 mg PO Q4H PRN PRN Reason: PAIN LEVEL 7 - 10 Last Admin: 03/24/19 05:04 Dose: 4 mg Insulin Aspart (Novolog Vial Sliding Scale -) [facility]; Protocol Last Admin: 03/24/19 06:56 Dose: 10 units Isosorbide Mononitrate (Imdur -) 30 mg PO DAILY [facility] Last Admin: 03/24/19 10:04 Dose: 30 mg Montelukast Sodium (Singulair -) 10 mg PO DAILY [facility] Last Admin: 03/24/19 10:03 Dose: 10 mg Oxycodone HCl (Roxicodone -) 10 mg PO BID [facility] Last Admin: 03/24/19 10:06 Dose: 10 mg Pancrelipase (Creon Dr 36,000 Units Capsule) 1 cap PO TIDCM [facility] Last Admin: 03/24/19 12:33 Dose: 1 cap Polyethylene Glycol (Miralax (For Daily Use) -) 17 gm PO BID [facility] Last Admin: 03/24/19 10:08 Dose: Not Given Prednisone (Deltasone -) 20 mg PO DAILY [facility] Last Admin: 03/24/19 10:02 Dose: 20 mg Ramipril (Altace -) 10 mg PO DAILY [facility] Last Admin: 03/24/19 10:16 Dose: 10 mg Rosuvastatin Calcium (Crestor -) 20 mg PO HS [facility] Last Admin: 03/23/19 22:21 Dose: 20 mg Senna/Docusate Sodium (Pericolace -) 1 tablet PO DAILY [facility] Last Admin: 03/24/19 10:17 Dose: 1 tablet Tamsulosin HCl (Flomax -) 0.4 mg PO DAILY@0830 [facility] Last Admin: 03/24/19 10:02 Dose: 0.4 mg Tapentadol (Nucynta Er -) 150 mg PO BID [facility] Last Admin: 03/24/19 11:07 Dose: 150 mg Tiotropium [place] (Spiriva Respimat) 2 puff IH DAILY [facility] Last Admin: 03/24/19 10:05 Dose: 2 puff Torsemide (Demadex -) 40 mg PO DAILY [facility] Last Admin: 03/24/19 10:02 Dose: 40 mg - Objective Vital Signs: Vital Signs Temperature 98 F 03/24/19 09:00 Pulse Rate 64 03/24/19 09:00 Respiratory Rate 18 03/24/19 09:00 Blood Pressure 149/64 03/24/19 09:00 O2 Sat by Pulse Oximetry (%) 98 03/24/19 09:00 Constitutional: Yes: Calm Cardiovascular: Yes: Regular Rate and Rhythm, S1, S2 Respiratory: Yes: Diminished Gastrointestinal: Yes: Normal Bowel Sounds, Soft Neurological: Yes: Alert, Oriented Labs: CBC, BMP 03/23/19 05:18 03/23/19 05:18 INR, PTT INR 1.05 (0.83-1.09) 03/22/19 11:00 Problem List - Problems (1) COPD (chronic obstructive pulmonary disease) Assessment/Plan: bronchodilators and prednisone Code(s): J44.9 - CHRONIC OBSTRUCTIVE PULMONARY DISEASE, UNSPECIFIED (2) Atrial fibrillation with RVR Assessment/Plan: amlodipine and diltiazem HR controlled cardiology on board telemetry Code(s): I48.91 - UNSPECIFIED ATRIAL FIBRILLATION (3) BPH (benign prostatic hyperplasia) Assessment/Plan: finastertide Code(s): N40.0 - BENIGN PROSTATIC HYPERPLASIA WITHOUT LOWER URINRY TRACT SYMP (4) HTN (hypertension) Assessment/Plan: hydralazine Code(s): I10 - ESSENTIAL (PRIMARY) HYPERTENSION (5) Hyperlipidemia Assessment/Plan: statin Code(s): E78.5 - HYPERLIPIDEMIA, UNSPECIFIED (6) Chronic pain Assessment/Plan: dilaudid oral not iv gabapentin Code(s): G89.29 - OTHER CHRONIC PAIN (7) Chronic pancreatitis Assessment/Plan: pancreatic enzymes Code(s): K86.1 - OTHER CHRONIC PANCREATITIS
--- NOTE | 2019-03-24 20:01 | PN ---
Progress Note, Physician Chief Complaint: Pt A&Ox3; wants more help for chronic left LE and lower back pain. No chest pain or palpitations; no dizziness. History of Present Illness: The patient is a 62 year old black male, with a significant PMH of CAD s/p [place], stents x6 (most recently 12/2015), CABG, diastolic CHF (normal LVEF; mild ; moderate LVH; mild pericardial effusion on 03/30 ECHO), HTN, HLD, chronic pancreatitis, chronic back pain, SBO, incarcerated hernia s/p repair x2 (September 2017), H.Pylori, BPH, COPD, bronchial asthma, tracheostomy in place (unplugs when sleeping for GRACIE), and anxiety, who presents to the emergency department from PCP office, Dr. Elaine for new onset rapid AFIB. Patient reports while he was at his scientist immunology office, he endorsed constant, sharp, chest pain and palpitations. Patient was seen and admitted here in the ED 03/01/19 -03/18/19 for similar symptoms. He also notes bilateral leg pain and took dilaudid this morning. Patient notes he was suppose to be seen at [facility] for a biopsy of his pancreas. The patient denies shortness of breath, headache and dizziness. Denies fever, chills, nausea, vomiting, diarrhea and constipation. Denies dysuria, frequency, urgency and hematuria. Allergies: hx of "wheezing" with metoprolol-->discontinuation in the past and was started on verapamil in the past. Underwriting Consultant: Bola Haskins - Current Medication List Current Medications: Active Medications Acetaminophen (Tylenol -) 325 mg PO BID [facility] Last Admin: 03/24/19 10:04 Dose: 325 mg Al Hydroxide/Mg Hydroxide (Mylanta Suspension -) 30 ml PO Q6H PRN PRN Reason: DYSPEPSIA Albuterol Sulfate (Ventolin 0.083% Nebulizer Soln -) 1 amp NEB Q8H PRN PRN Reason: WHEEZING Last Admin: 03/24/19 17:51 Dose: 1 amp Amlodipine Besylate (Norvasc -) 10 mg PO DAILY [facility] Last Admin: 03/24/19 10:04 Dose: 10 mg Apixaban (Eliquis -) 2.5 mg PO BID [facility] Last Admin: 03/24/19 10:03 Dose: 2.5 mg Arformoterol Tartrate (Brovana (Restricted To Pulmonology/Resp) -) 1 amp NEB RBID [facility] Last Admin: 03/24/19 07:35 Dose: 1 amp Aspirin (Ecotrin -) 81 mg PO DAILY [facility] Last Admin: 03/24/19 10:03 Dose: 81 mg Chlorthalidone (Hygroton -) 25 mg PO DAILY [facility] Last Admin: 03/24/19 10:17 Dose: 25 mg Diazepam (Valium -) 5 mg PO Q8H PRN PRN Reason: ANXIETY Diltiazem HCl (Cardizem Cd -) 120 mg PO DAILY [facility] Last Admin: 03/24/19 10:02 Dose: 120 mg Finasteride (Proscar -) 5 mg PO DAILY [facility] Last Admin: 03/24/19 10:19 Dose: 5 mg Hydralazine HCl (Apresoline -) 25 mg PO BID [facility] Last Admin: 03/24/19 10:02 Dose: 25 mg Hydromorphone HCl (Dilaudid -) 4 mg PO Q4H PRN PRN Reason: PAIN LEVEL 7 - 10 Last Admin: 03/24/19 19:50 Dose: 4 mg Insulin Aspart (Novolog Vial Sliding Scale -) [facility] Protocol Last Admin: 03/24/19 17:01 Dose: Not Given Isosorbide Mononitrate (Imdur -) 30 mg PO DAILY [facility] Last Admin: 03/24/19 10:04 Dose: 30 mg Montelukast Sodium (Singulair -) 10 mg PO DAILY [facility] Last Admin: 03/24/19 10:03 Dose: 10 mg Oxycodone HCl (Roxicodone -) 10 mg PO BID [facility] Last Admin: 03/24/19 10:06 Dose: 10 mg Pancrelipase (Creon Dr 36,000 Units Capsule) 1 cap PO TIDCM [facility] Last Admin: 03/24/19 17:26 Dose: 1 cap Polyethylene Glycol (Miralax (For Daily Use) -) 17 gm PO BID [facility] Last Admin: 03/24/19 10:08 Dose: Not Given Prednisone (Deltasone -) 20 mg PO DAILY [facility] Last Admin: 03/24/19 10:02 Dose: 20 mg Ramipril (Altace -) 10 mg PO DAILY [facility] Last Admin: 03/24/19 10:16 Dose: 10 mg Rosuvastatin Calcium (Crestor -) 20 mg PO HS [facility] Last Admin: 03/23/19 22:21 Dose: 20 mg Senna/Docusate Sodium (Pericolace -) 1 tablet PO DAILY [facility] Last Admin: 03/24/19 10:17 Dose: 1 tablet Tamsulosin HCl (Flomax -) 0.4 mg PO DAILY@0830 [facility] Last Admin: 03/24/19 10:02 Dose: 0.4 mg Tapentadol (Nucynta Er -) 150 mg PO BID [facility] Last Admin: 03/24/19 11:07 Dose: 150 mg Tiotropium [place] (Spiriva Respimat) 2 puff IH DAILY [facility] Last Admin: 03/24/19 10:05 Dose: 2 puff Torsemide (Demadex -) 40 mg PO DAILY [facility] Last Admin: 03/24/19 10:02 Dose: 40 mg - Objective Vital Signs: Vital Signs Temperature 97.6 F 03/24/19 17:00 Pulse Rate 51 L 03/24/19 17:00 Respiratory Rate 18 03/24/19 17:00 Blood Pressure 108/53 L 03/24/19 17:00 O2 Sat by Pulse Oximetry (%) 98 03/24/19 09:00 Constitutional: Yes: Calm Eyes: Yes: WNL HENT: Yes: WNL Neck: Yes: WNL Cardiovascular: Yes: S1 (varies in intensity), S2 Respiratory: Yes: WNL Gastrointestinal: Yes: Abdomen, Obese ...Rectal Exam: Yes: Deferred Genitourinary: Yes: Anuria Breast(s): Yes: WNL Musculoskeletal: Yes: Back Pain, Joint Stiffness Extremities: Yes: Cool Edema: Yes Edema: LLE: Trace, RLE: Trace Peripheral Pulses WNL: Yes Integumentary: Yes: WNL Neurological: Yes: Alert, Oriented Psychiatric: Yes: Alert, Oriented, Other (addiction) Labs: CBC, BMP 03/23/19 05:18 03/23/19 05:18 INR, PTT INR 1.05 (0.83-1.09) 03/22/19 11:00 Abnormal Lab Results 03/25/19 03/25/19 05:46 05:46 RBC 3.89 L Hgb 10.5 L Hct 32.5 L RDW 16.3 H Sodium 133 L Chloride 95 L BUN 58.6 H Creatinine 3.3 H Random Glucose 612 H* Calcium 7.8 L ALT 89 H Total Protein 5.5 L Albumin 2.7 L Abnormal Lab Results 03/25/19 03/25/19 05:46 05:46 RBC 3.89 L Hgb 10.5 L Hct 32.5 L RDW 16.3 H Sodium 133 L Chloride 95 L BUN 58.6 H Creatinine 3.3 H Random Glucose 612 H* Calcium 7.8 L ALT 89 H Total Protein 5.5 L Albumin 2.7 L - ....Imaging EKG: Image Reviewed (AF) Problem List - Problems (1) Anxiety Code(s): F41.9 - ANXIETY DISORDER, UNSPECIFIED (2) Atrial fibrillation with RVR Assessment/Plan: On diltiazem CD for HR control On apixaban for anticoagulation. Will f/u with Dr. Elaine, scientist immunology, as outpatient. Code(s): I48.91 - UNSPECIFIED ATRIAL FIBRILLATION (3) Diastolic CHF Code(s): I50.30 - UNSPECIFIED DIASTOLIC (CONGESTIVE) HEART FAILURE Qualifiers: Heart failure chronicity: chronic Qualified Code(s): I50.32 - Chronic diastolic (congestive) heart failure (4) HTN (hypertension) Assessment/Plan: On diltiazem, hydralazine and Imdur, amlodipine. F?u HR and BP serially. Code(s): I10 - ESSENTIAL (PRIMARY) HYPERTENSION (5) Hx of heart artery stent Assessment/Plan: On ASA, apixaban. F/u lipid profile on rosuvastatin. Code(s): Z95.5 - PRESENCE OF CORONARY ANGIOPLASTY IMPLANT AND GRAFT (6) Hyperlipidemia Assessment/Plan: On rosuvastatin 20 mg daily. F/u lipid profile on this dose (hx hypertriglyceridemia and elevated LDL), and increase if necessary. Code(s): E78.5 - HYPERLIPIDEMIA, UNSPECIFIED (7) Intractable low back pain Code(s): M54.5 - LOW BACK PAIN (8) Opiate dependence Assessment/Plan: Pt continues to ask for IV dilaudid. Recommend pain management evaluation. Code(s): F11.20 - OPIOID DEPENDENCE, UNCOMPLICATED (9) Renal insufficiency Code(s): N28.9 - DISORDER OF KIDNEY AND URETER, UNSPECIFIED (10) COPD (chronic obstructive pulmonary disease) Code(s): J44.9 - CHRONIC OBSTRUCTIVE PULMONARY DISEASE, UNSPECIFIED (11) Diabetes mellitus Assessment/Plan: Poor control of glucose. THe importance of diet modification, weight loss, and increase in exercise, in addition to optimizing medications was discussed again. Code(s): E11.9 - TYPE 2 DIABETES MELLITUS WITHOUT COMPLICATIONS Qualifiers: Diabetes mellitus type: type 2 (12) GRACIE (obstructive sleep apnea) Assessment/Plan: nightly CPAP Code(s): G47.33 - OBSTRUCTIVE SLEEP APNEA (ADULT) (PEDIATRIC) (13) Obesity Code(s): E66.9 - OBESITY, UNSPECIFIED (14) Tracheostomy in place Code(s): Z98.89 - OTHER SPECIFIED POSTPROCEDURAL STATES * DO NOT USE *
[2019-03-24] MEDS: ROSUVASTATIN CA 20 MG TABLET (FP) PO SCH (21:52)
[2019-03-25] MEDS: diazePAM 5 MG TABLET PO PRN ×2 (01:36→20:43)
[2019-03-25] MEDS ORDERED: INSULIN (NOVOLOG) ASPART 100 UNITS/ML 10ML VIAL SQ ONE (06:45)
[2019-03-25] MEDS: INSULIN SLIDING SCALE (NOVOLOG) 1 VIAL SQ SCH (07:04)
[2019-03-25 07:08] LABS: BASO % 0.3 % (0-2.0); EOS % 0.9 % (0-4.5); HEMATOCRIT 32.5 % (35.4-49); HEMOGLOBIN 10.5 GM/dL (11.7-16.9); LYMPH % 28.8 % (8-40); MCH 27.1 pg (25.7-33.7); MCHC 32.4 g/dl (32.0-35.9); MEAN CELL VOLUME 83.7 fl (80-96); MONO % 8.8 % (3.8-10.2); NEUT % 61.2 % (42.8-82.8); PLATELET COUNT 166 K/MM3 (134-434); RBC 3.89 M/mm3 (4.00-5.60); RDW 16.3 % (11.9-15.9); WHITE BLOOD COUNT 6.4 K/mm3 (4.0-10.0)
[2019-03-25 07:35] LABS: ALBUMIN 2.7 g/dl (3.4-5.0); BILIRUBIN,TOTAL 0.4 mg/dL (0.2-1); BLOOD UREA NITROGEN 58.6 mg/dL (7-18); CALCIUM 7.8 mg/dL (8.5-10.1); CREATININE 3.3 mg/dL (0.55-1.3); POTASSIUM 4.8 mmol/L (3.5-5.1); TOT PROT 5.5 g/dl (6.4-8.2)
[2019-03-25] MEDS: ARFORMOTEROL TARTRATE 15 MCG/2 ML VIAL NEB SCH ×2 (07:40→20:33)
[2019-03-25] MEDS ORDERED: PT OWN MED DRAWER 7, Y5N ONE ×3 (08:46→22:14)
[2019-03-25] MEDS: LIPASE/PROTEASE/AMYLASE 36,000 UNIT CAPSULE PO SCH ×3 (09:01→17:19)
[2019-03-25] MEDS: TAMSULOSIN HCL 0.4 MG CAP PO SCH (09:02)
[2019-03-25] MEDS: RAMIPRIL 5 MG CAPSULE (FP) PO SCH (09:02)
[2019-03-25] MEDS: FINASTERIDE 5 MG TABLET (FP) PO SCH (09:03)
[2019-03-25] MEDS: TAPENTADOL HCL 50 MG TAB.ER.12H PO SCH ×2 (09:03→22:17)
[2019-03-25] MEDS: amLODIPine BESYLATE 10 MG TABLET (FP) PO SCH (09:03)
[2019-03-25] MEDS: predniSONE 20 MG TABLET (UD) PO SCH (09:04)
[2019-03-25] MEDS: MONTELUKAST NA 10 MG TABLET PO SCH (09:04)
[2019-03-25] MEDS: ISOSORBIDE MONONITRATE 30 MG TAB.SR.24H (FP) PO SCH (09:04)
[2019-03-25] MEDS: ACETAMINOPHEN 325 MG TABLET (FP) PO SCH ×2 (09:04→22:18)
[2019-03-25] MEDS: TORSEMIDE 20 MG TABLET (FP) PO SCH (09:04)
[2019-03-25] MEDS: APIXABAN 2.5 MG TABLET PO SCH ×2 (09:04→22:17)
[2019-03-25] MEDS: hydrALAZINE HCL 25 MG TABLET (FP) PO SCH ×2 (09:04→22:17)
[2019-03-25] MEDS: oxyCODONE HCL 5 MG TABLET PO SCH ×2 (09:05→22:17)
[2019-03-25] MEDS: POLYETHYLENE GLYCOL 3350 119 GM BTL PO SCH ×2 (09:06→22:27)
[2019-03-25] MEDS: SENNOSIDES/DOCUSATE COMBO (SENNA PLUS) TABLET (UD) PO SCH (09:06)
[2019-03-25] MEDS: ASPIRIN COATED 81 MG TABLET.EC PO SCH (09:08)
[2019-03-25] MEDS: CHLORTHALIDONE 25 MG TABLET PO SCH (09:08)
[2019-03-25] MEDS: TIOTROPIUM BROMIDE 2.5 MCG (SPIRIVA) RESPIMAT INHALER IH SCH (09:22)
--- NOTE | 2019-03-25 13:59 | PN ---
Progress Note (short form) - Note Progress Note: Feels better. No CP or SOB. No acute events overnight. Intake & Output 03/22/19 03/23/19 03/24/19 03/25/19 23:59 23:59 23:59 23:59 Intake Total 260 1330 370 Output Total 500 400 Balance -500 -140 1330 370 Weight 297 lb 279 lb 278 lb 6.4 oz 282 lb Last Vital Signs Temp Pulse Resp BP Pulse Ox 98.4 F 50 L 18 131/61 98 03/25/19 05:00 03/25/19 05:00 03/25/19 05:00 03/25/19 05:00 03/24/19 21:00 Active Medications Acetaminophen (Tylenol -) 325 mg PO BID [facility] Last Admin: 03/25/19 09:04 Dose: 325 mg Al Hydroxide/Mg Hydroxide (Mylanta Suspension -) 30 ml PO Q6H PRN PRN Reason: DYSPEPSIA Albuterol Sulfate (Ventolin 0.083% Nebulizer Soln -) 1 amp NEB Q8H PRN PRN Reason: WHEEZING Last Admin: 03/24/19 17:51 Dose: 1 amp Amlodipine Besylate (Norvasc -) 10 mg PO DAILY [facility] Last Admin: 03/25/19 09:03 Dose: 10 mg Apixaban (Eliquis -) 2.5 mg PO BID [facility] Last Admin: 03/25/19 09:04 Dose: 2.5 mg Arformoterol Tartrate (Brovana (Restricted To Pulmonology/Resp) -) 1 amp NEB RBID [facility] Last Admin: 03/25/19 07:40 Dose: 1 amp Aspirin (Ecotrin -) 81 mg PO DAILY [facility] Last Admin: 03/25/19 09:08 Dose: 81 mg Chlorthalidone (Hygroton -) 25 mg PO DAILY [facility] Last Admin: 03/25/19 09:08 Dose: 25 mg Diazepam (Valium -) 5 mg PO Q8H PRN PRN Reason: ANXIETY Last Admin: 03/25/19 01:36 Dose: 5 mg Diltiazem HCl (Cardizem Cd -) 120 mg PO DAILY [facility] Last Admin: 03/25/19 09:08 Dose: 120 mg Finasteride (Proscar -) 5 mg PO DAILY [facility] Last Admin: 03/25/19 09:03 Dose: 5 mg Hydralazine HCl (Apresoline -) 25 mg PO BID [facility] Last Admin: 03/25/19 09:04 Dose: 25 mg Hydromorphone HCl (Dilaudid -) 4 mg PO Q4H PRN PRN Reason: PAIN LEVEL 7 - 10 Last Admin: 03/25/19 05:58 Dose: 4 mg Insulin Aspart (Novolog Vial Sliding Scale -) [facility] Protocol Last Admin: 03/25/19 07:04 Dose: Not Given Isosorbide Mononitrate (Imdur -) 30 mg PO DAILY [facility] Last Admin: 03/25/19 09:04 Dose: 30 mg Montelukast Sodium (Singulair -) 10 mg PO DAILY [facility] Last Admin: 03/25/19 09:04 Dose: 10 mg Oxycodone HCl (Roxicodone -) 10 mg PO BID [facility] Last Admin: 03/25/19 09:05 Dose: 10 mg Pancrelipase (Creon Dr 36,000 Units Capsule) 1 cap PO TIDCM [facility] Last Admin: 03/25/19 09:01 Dose: 1 cap Polyethylene Glycol (Miralax (For Daily Use) -) 17 gm PO BID [facility] Last Admin: 03/25/19 09:06 Dose: 17 gm Prednisone (Deltasone -) 20 mg PO DAILY [facility] Last Admin: 03/25/19 09:04 Dose: 20 mg Ramipril (Altace -) 10 mg PO DAILY [facility] Last Admin: 03/25/19 09:02 Dose: 10 mg Rosuvastatin Calcium (Crestor -) 20 mg PO HS [facility] Last Admin: 03/24/19 21:52 Dose: 20 mg Senna/Docusate Sodium (Pericolace -) 1 tablet PO DAILY [facility] Last Admin: 03/25/19 09:06 Dose: 1 tablet Tamsulosin HCl (Flomax -) 0.4 mg PO DAILY@0830 [facility] Last Admin: 03/25/19 09:02 Dose: 0.4 mg Tapentadol (Nucynta Er -) 150 mg PO BID [facility] Last Admin: 03/25/19 09:03 Dose: 150 mg Tiotropium [place] (Spiriva Respimat) 2 puff IH DAILY [facility] Last Admin: 03/25/19 09:22 Dose: 2 puff Torsemide (Demadex -) 40 mg PO DAILY [facility] Last Admin: 03/25/19 09:04 Dose: 40 mg Constitutional: Yes: NAD, Obese HENT: Yes: WNL Neck: Yes: WNL Cardiovascular: Yes: Pulse Irregular, S1, S2 Respiratory: Yes: Clear, no wheezing Gastrointestinal: Yes: Normal Bowel Sounds, Soft Extremities: Yes: WNL Edema: Yes Laboratory Results - last 24 hr 03/24/19 03/25/19 03/25/19 16:54 05:46 05:46 WBC 6.4 RBC 3.89 L Hgb 10.5 L Hct 32.5 L MCV 83.7 MCH 27.1 MCHC 32.4 RDW 16.3 H Plt Count 166 MPV 8.0 Absolute Neuts (auto) 3.9 Neutrophils % 61.2 Lymphocytes % 28.8 D Monocytes % 8.8 Eosinophils % 0.9 Basophils % 0.3 Nucleated RBC % 0 Sodium 133 L Potassium 4.8 Chloride 95 L Carbon Dioxide 29 Anion Gap 9 BUN 58.6 H Creatinine 3.3 H Est GFR (CKD-EPI)AfAm 21.52 Est GFR (CKD-EPI)NonAf 18.57 POC Glucometer > 600 Random Glucose 612 H* Calcium 7.8 L Total Bilirubin 0.4 AST 27 ALT 89 H Alkaline Phosphatase 62 Total Protein 5.5 L Albumin 2.7 L 03/25/19 05:50 WBC RBC Hgb Hct MCV MCH MCHC RDW Plt Count MPV Absolute Neuts (auto) Neutrophils % Lymphocytes % Monocytes % Eosinophils % Basophils % Nucleated RBC % Sodium Potassium Chloride Carbon Dioxide Anion Gap BUN Creatinine Est GFR (CKD-EPI)AfAm Est GFR (CKD-EPI)NonAf POC Glucometer 593 Random Glucose Calcium Total Bilirubin AST ALT Alkaline Phosphatase Total Protein Albumin Assessment/Plan Problem List - Problems (1) Atrial fibrillation with RVR Code(s): I48.91 - UNSPECIFIED ATRIAL FIBRILLATION (2) Chest pain Code(s): R07.9 - CHEST PAIN, UNSPECIFIED Qualifiers: Chest pain type: other chest pain Qualified Code(s): R07.89 - Other chest pain; R07.8 - Other chest pain (3) HTN (hypertension) Code(s): I10 - ESSENTIAL (PRIMARY) HYPERTENSION (4) Opiate dependence Code(s): F11.20 - OPIOID DEPENDENCE, UNCOMPLICATED (5) COPD (chronic obstructive pulmonary disease) Code(s): J44.9 - CHRONIC OBSTRUCTIVE PULMONARY DISEASE, UNSPECIFIED (6) Coronary artery disease Code(s): I25.10 - ATHSCL HEART DISEASE OF [place] CORONARY ARTERY W/O ANG PCTRS (7) Diabetes mellitus Code(s): E11.9 - TYPE 2 DIABETES MELLITUS WITHOUT COMPLICATIONS Qualifiers: Diabetes mellitus type: type 2 (8) GRACIE (obstructive sleep apnea) Code(s): G47.33 - OBSTRUCTIVE SLEEP APNEA (ADULT) (PEDIATRIC) Assessment/Plan Atrial Fibrillation with RVR improved LV Diastolic Dysfunction CAD s/p CABG COPD/asthma Opiate Dependence Obstructive Sleep Apnea s/p Tracheostomy Chronic Pancreatitis HTN Hyperlipidemia - rate/rhythm control - anticoagulation - Prednisone - inhaled bronchodilators - O2 to keep SpO2 >90% - uncap tracheostomy while sleeping Dr Vizcaino
[2019-03-25] MEDS ORDERED: INSULIN (NOVOLOG) ASPART 100 UNITS/ML 10ML VIAL ONE (16:17)
[2019-03-25] MEDS ORDERED: INSULIN (NOVOLOG MIX 70/30) 100 UNITS/ML MDV SQ ONE (17:07)
[2019-03-25] MEDS: INSULIN (NOVOLOG MIX 70/30) 100 UNITS/ML MDV SQ SCH (17:20)
--- NOTE | 2019-03-25 17:23 | PN ---
Progress Note, Physician Chief Complaint: Atrial Fibrillation with RVR improved LV Diastolic Dysfunction CAD s/p CABG COPD/asthma Opiate Dependence Obstructive Sleep Apnea s/p Tracheostomy Chronic Pancreatitis HTN Hyperlipidemia History of Present Illness: NAD c/o pain - Current Medication List Current Medications: Active Medications Acetaminophen (Tylenol -) 325 mg PO BID [facility] Last Admin: 03/25/19 09:04 Dose: 325 mg Al Hydroxide/Mg Hydroxide (Mylanta Suspension -) 30 ml PO Q6H PRN PRN Reason: DYSPEPSIA Albuterol Sulfate (Ventolin 0.083% Nebulizer Soln -) 1 amp NEB Q8H PRN PRN Reason: WHEEZING Last Admin: 03/24/19 17:51 Dose: 1 amp Amlodipine Besylate (Norvasc -) 10 mg PO DAILY [facility] Last Admin: 03/25/19 09:03 Dose: 10 mg Apixaban (Eliquis -) 2.5 mg PO BID [facility] Last Admin: 03/25/19 09:04 Dose: 2.5 mg Arformoterol Tartrate (Brovana (Restricted To Pulmonology/Resp) -) 1 amp NEB RBID [facility] Last Admin: 03/25/19 07:40 Dose: 1 amp Aspirin (Ecotrin -) 81 mg PO DAILY [facility] Last Admin: 03/25/19 09:08 Dose: 81 mg Chlorthalidone (Hygroton -) 25 mg PO DAILY [facility] Last Admin: 03/25/19 09:08 Dose: 25 mg Diazepam (Valium -) 5 mg PO Q8H PRN PRN Reason: ANXIETY Last Admin: 03/25/19 01:36 Dose: 5 mg Diltiazem HCl (Cardizem Cd -) 120 mg PO DAILY [facility] Last Admin: 03/25/19 09:08 Dose: 120 mg Finasteride (Proscar -) 5 mg PO DAILY [facility] Last Admin: 03/25/19 09:03 Dose: 5 mg Hydralazine HCl (Apresoline -) 25 mg PO BID [facility] Last Admin: 03/25/19 09:04 Dose: 25 mg Hydromorphone HCl (Dilaudid -) 4 mg PO Q4H PRN PRN Reason: PAIN LEVEL 7 - 10 Last Admin: 03/25/19 17:10 Dose: 4 mg Insulin Aspart (Novolog Vial Sliding Scale -) 1 vial SQ ACHS [facility]; Protocol Last Admin: 03/25/19 17:19 Dose: 14 units Insulin Aspart (Novolog Mix 70/30 Vial) 25 units SQ BIDAC [facility] Last Admin: 03/25/19 17:20 Dose: 25 units Isosorbide Mononitrate (Imdur -) 30 mg PO DAILY [facility] Last Admin: 03/25/19 09:04 Dose: 30 mg Montelukast Sodium (Singulair -) 10 mg PO DAILY [facility] Last Admin: 03/25/19 09:04 Dose: 10 mg Oxycodone HCl (Roxicodone -) 10 mg PO BID [facility] Last Admin: 03/25/19 09:05 Dose: 10 mg Pancrelipase (Creon Dr 36,000 Units Capsule) 1 cap PO TIDCM [facility] Last Admin: 03/25/19 17:19 Dose: 1 cap Polyethylene Glycol (Miralax (For Daily Use) -) 17 gm PO BID [facility] Last Admin: 03/25/19 09:06 Dose: 17 gm Prednisone (Deltasone -) 20 mg PO DAILY [facility] Last Admin: 03/25/19 09:04 Dose: 20 mg Ramipril (Altace -) 10 mg PO DAILY [facility] Last Admin: 03/25/19 09:02 Dose: 10 mg Rosuvastatin Calcium (Crestor -) 20 mg PO HS [facility] Last Admin: 03/24/19 21:52 Dose: 20 mg Senna/Docusate Sodium (Pericolace -) 1 tablet PO DAILY [facility] Last Admin: 03/25/19 09:06 Dose: 1 tablet Tamsulosin HCl (Flomax -) 0.4 mg PO DAILY@0830 [facility] Last Admin: 03/25/19 09:02 Dose: 0.4 mg Tapentadol (Nucynta Er -) 150 mg PO BID [facility] Last Admin: 03/25/19 09:03 Dose: 150 mg Tiotropium [place] (Spiriva Respimat) 2 puff IH DAILY [facility] Last Admin: 03/25/19 09:22 Dose: 2 puff Torsemide (Demadex -) 40 mg PO DAILY [facility] Last Admin: 03/25/19 09:04 Dose: 40 mg - Objective Vital Signs: Vital Signs Temperature 98.1 F 03/25/19 09:00 Pulse Rate 89 03/25/19 09:00 Respiratory Rate 22 H 03/25/19 09:00 Blood Pressure 143/65 03/25/19 09:00 O2 Sat by Pulse Oximetry (%) 98 03/25/19 09:00 Constitutional: Yes: Well Nourished, No Distress, Calm, Obese Cardiovascular: Yes: Regular Rate and Rhythm Respiratory: Yes: Regular Gastrointestinal: Yes: Normal Bowel Sounds, Soft Musculoskeletal: Yes: WNL Extremities: Yes: WNL Edema: No Peripheral Pulses WNL: Yes Neurological: Yes: Alert, Oriented Psychiatric: Yes: Alert, Oriented Labs: CBC, BMP 03/25/19 05:46 03/25/19 05:46 INR, PTT INR 1.05 (0.83-1.09) 03/22/19 11:00 Problem List - Problems (1) LOVE (acute kidney injury) Assessment/Plan: -nephrology consult -Hold Ramipril -Torsemide decreased to 20 mg po daily Code(s): N17.9 - ACUTE KIDNEY FAILURE, UNSPECIFIED Assessment/Plan (1) COPD (chronic obstructive pulmonary disease) Assessment/Plan: bronchodilators and prednisone Code(s): J44.9 - CHRONIC OBSTRUCTIVE PULMONARY DISEASE, UNSPECIFIED (2) Atrial fibrillation with RVR Assessment/Plan: amlodipine and diltiazem HR controlled cardiology on board telemetry Code(s): I48.91 - UNSPECIFIED ATRIAL FIBRILLATION (3) BPH (benign prostatic hyperplasia) Assessment/Plan: finastertide Code(s): N40.0 - BENIGN PROSTATIC HYPERPLASIA WITHOUT LOWER URINRY TRACT SYMP (4) HTN (hypertension) Assessment/Plan: hydralazine Code(s): I10 - ESSENTIAL (PRIMARY) HYPERTENSION (5) Hyperlipidemia Assessment/Plan: statin Code(s): E78.5 - HYPERLIPIDEMIA, UNSPECIFIED (6) Chronic pain Assessment/Plan: dilaudid oral not iv gabapentin Code(s): G89.29 - OTHER CHRONIC PAIN (7) Chronic pancreatitis Assessment/Plan: pancreatic enzymes Code(s): K86.1 - OTHER CHRONIC PANCREATITIS
[2019-03-25] MEDS: PANTOPRAZOLE 40 MG TABLET (FP) PO SCH (19:18)
[2019-03-25] MEDS: LIDOCAINE 5% TOPICAL PATCH TP SCH (19:18)
[2019-03-25] MEDS: HYDROmorphone HCl 2 MG/ML VIAL IVPUSH PRN (19:58)
--- NOTE | 2019-03-25 21:54 | CONSULT ---
Consult Consult Specialty:: endocrine Referred by:: alisa ramos md. Reason for Consultation:: diabetes mellitus t2 - History of Present Illness Chief Complaint: high sugars/ chronic pain History of Present Illness: 63 y/o male with past medical history DM2/CAD s/p MT and stent placement x 6, CABG, HTN, HLD, chronic pancreatitis, chronic back pain, SBO, incarcerated hernia s/p repair x 2, H. Pylori, BPH, COPD, Bronchial Asthma, tracheostomy, and Anxiety. Patient sent to ER from chief [facility] office where was experiencing mid chest pain described as sharp radiating down right arm accompanied with palpitations. found to have new onset afib,with FVR.since admission HR has decreased and breathing improving,no further cp.he denies hypoglycemia,nausea or vomiting. 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 Planned EMG/ NCVs studies and evaluation of motor weakness in process by treating neurologist Dr. Singh) Cardio/Vascular: Yes: CAD (Last stents placed x 2 last year per patient), CHF (s /p MT several years ago; s/p stenting. mild CHF in the past.), HTN, Hyperlipdemia, MT, Pulmonary Hypertension Pulmonary: Yes: Asthma, COPD, Sleep Apnea Gastrointestinal: Yes: Constipation, Pancreatitis (? history of chronic pancreatitis with episodes of acute pancreatitis), Other (FECAL INCONTINENCE SECONDARY TO OVERFLOW followed by Dr. Abdoulaye Wu, IPMN, PANCREATITIS . HAD EPISODE OF ISCHEMIC COLITIS LAST ADMISSION) Renal/: Yes: BPH Psych: Yes: Depression Musculoskeletal: Yes: Chronic low back pain (has back stimulator), Other ( CHRONIC NECK PAIN s/p Lumbar and Cervical fusion ) Endocrine: Yes: Diabetes Mellitus (has insulin pump) - Past Surgical History Past Surgical History: Yes: Breast Biopsy, Colonoscopy, Laminectomy, Stent (1 non eluting, 5 eluting) - Alcohol/Substance Use Hx Alcohol Use: No History of Substance Use: reports: None, Prescription (opiates for chronic pain post cervical spine surgery. 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 History of Recent Travel: No Home Medications - Allergies Allergies/Adverse Reactions: Allergies Allergy/AdvReac Type Severity Reaction Status Date / Time shellfish derived Allergy Severe Verified 03/22/19 10:29 Tetracyclines Allergy Severe Verified 03/22/19 10:29 metoprolol Allergy wheezing Verified 03/23/19 13:10 - Home Medications Home Medications: Ambulatory Orders Albuterol Sulfate Inhaler - [Ventolin HFA Inhaler -] 1 - 2 inh PO Q4H PRN Arformoterol Tartrate [Brovana] 15 mcg IH ASDIR 08/18/17 Aspirin [Aspirin EC] 81 mg PO DAILY 08/18/17 Clopidogrel Bisulfate [Plavix] 75 mg PO DAILY 08/18/17 Dexlansoprazole [Dexilant] 30 mg PO DAILY 08/18/17 Insulin Pump Controller [Snap Insulin Pump Controller] 1 each MC ASDIR 08/18/17 Montelukast Sodium [Singulair] 10 mg PO DAILY 08/18/17 Tiotropium [place] [Spiriva] 1 puff IH DAILY 08/18/17 Finasteride [Proscar -] 5 mg PO DAILY tablet 09/20/17 Lipase/Protease/Amylase [Stacy Hackett 36,000 Units Capsule] 1 cap PO TIDCM capsule. 09/20/17 Ramipril [Altace] 10 mg PO DAILY capsule 09/20/17 Tamsulosin HCl [Flomax -] 0.4 mg PO DAILY@0830 cap.er.24h 09/20/17 Amitriptyline HCl [Elavil -] 75 mg PO DAILY 03/30/18 Gabapentin 800 mg PO TID 03/30/18 Albuterol 0.083% Nebulizer [place] [Ventolin 0.083% Nebulizer Soln -] 1 amp NEB Q8H PRN #30 amp 07/26/18 Mometasone Furoate [Asmanex 220Mcg -] 2 puff IH BID #2 inhaler 07/26/18 Mag Hydrox/Al Hydrox/Simeth [MAALOX *SUSPENSION* -] 30 ml PO Q6H PRN #1 bottle 09/27/18 Polyethylene Glycol 3350 [Miralax 119 gm Btl -] 17 gm PO BID #1 bottle 09/27/18 Sennosides/Docusate Sodium [Senna Laxative Tablet] 1 each PO DAILY #20 tablet Chlorthalidone [Hygroton -] 25 mg PO DAILY #60 tablet 10/14/18 Rosuvastatin [Crestor -] 20 mg PO HS #30 tablet 10/14/18 Amlodipine Besylate [Norvasc -] 10 mg PO DAILY 03/01/19 Arformoterol Tartrate [Brovana] 15 mcg IH DAILY 03/01/19 Budesonide/Formeterol Fumarate [SYMBICORT 160/4.5mcg -] 1 inh PO BID 03/01/19 Diazepam 5 mg PO PRN 03/01/19 HYDROmorphone [Dilaudid -] 4 mg PO Q4H 03/01/19 Lipase/Protease/Amylase [Creon Dr 36,000 Units Capsule] 1 each PO TID 03/01/19 Mesalamine [Pentasa] 500 mg PO TID 03/01/19 Ondansetron [Zofran -] 4 mg PO TID 03/01/19 Oxycodone HCl/Acetaminophen [Oxycodone-Acetaminophen 10-325] 1 each PO BID 03/01 Prednisone 60 mg PO DAILY 03/01/19 Tapentadol ER [Nucynta ER -] 150 mg PO BID 03/01/19 Albuterol Sulfate Inhaler - [Ventolin HFA Inhaler -] 2 puff IH Q4H PRN #1 inhaler 03/16/19 Arformoterol Tartrate [Brovana -] 1 amp NEB RBID #1 pump 03/16/19 Isosorbide Mononitrate [Imdur -] 30 mg PO DAILY #30 tab.sr.24h 03/16/19 Nifedipine ER [Procardia XL -] 30 mg PO DAILY #30 tab.er.24 03/16/19 Nystatin Oral Suspension - [Nystatin Oral Susp 686909 Units/5 ML -] 500,000 units PO Q6HPO #1 bottle 03/16/19 Tiotropium [place] [Spiriva Respimat] 2 puff IH DAILY #1 inhaler 03/16/19 Torsemide [Demadex -] 40 mg PO DAILY #30 tablet 03/16/19 metroNIDAZOLE [Flagyl -] 250 mg PO TID #21 tablet 03/16/19 predniSONE [Deltasone -] 20 mg PO DAILY #30 tablet 03/16/19 hydrALAZINE HCL [Apresoline -] 25 mg PO BID 03/22/19 Family Disease History - Family Disease History Family Disease History: Diabetes: Mother ( 58: diabetic complications), CA: Father ( 49: asbestosis), Respiratory: Brother (bronchial asthma, DVT), Other: Mother, Sister (BCA), Son (2, healthy), Daughter (1, healthy) Review of Systems - Review of Systems Constitutional: reports: Loss of Appetite Eyes: reports: No Symptoms HENT: reports: No Symptoms Neck: reports: No Symptoms Cardiovascular: reports: Shortness of Breath Respiratory: reports: Exercise Intolerance, SOB on Exertion Gastrointestinal: reports: No Symptoms Genitourinary: reports: No Symptoms Breasts: reports: No Symptoms Reported Musculoskeletal: reports: Joint Swelling, Muscle Pain, Muscle Cramps, Muscle Weakness Neurological: reports: Numbness, Weakness Endocrine: reports: Unexplained Weight Gain Physical Exam Vital Signs: Vital Signs Temperature 98.3 F 03/25/19 18:00 Pulse Rate 67 03/25/19 18:00 Respiratory Rate 20 03/25/19 18:00 Blood Pressure 117/59 L 03/25/19 18:00 O2 Sat by Pulse Oximetry (%) 98 03/25/19 09:00 Constitutional: Yes: Anxious Eyes: Yes: EOM Intact HENT: Yes: Normocephalic Neck: Yes: Trachea Midline Cardiovascular: Yes: Pulse Irregular Respiratory: Yes: CTA Bilaterally Gastrointestinal: Yes: Normal Bowel Sounds ...Rectal Exam: Yes: Deferred Renal/: Yes: WNL Musculoskeletal: Yes: Joint Stiffness, Muscle Pain, Muscle Weakness Extremities: Yes: WNL Edema: LLE: Trace, RLE: Trace Integumentary: Yes: WNL Neurological: Yes: Alert, Oriented Labs: CBC, BMP 03/25/19 05:46 03/25/19 05:46 Problem List - Problems (1) Diabetes mellitus type 2 with hyperosmolarity, uncontrolled Code(s): E11.00 - TYPE 2 DIAB W HYPROSM W/O NONKET HYPRGLY-HYPROS COMA ([facility]); E11.65 - TYPE 2 DIABETES MELLITUS WITH HYPERGLYCEMIA (2) Anxiety Code(s): F41.9 - ANXIETY DISORDER, UNSPECIFIED (3) Atrial fibrillation with RVR Code(s): I48.91 - UNSPECIFIED ATRIAL FIBRILLATION (4) Atrial flutter Code(s): I48.92 - UNSPECIFIED ATRIAL FLUTTER Qualifiers: Atrial flutter type: unspecified Qualified Code(s): I48.92 - Unspecified atrial flutter (5) Chronic pain Code(s): G89.29 - OTHER CHRONIC PAIN (6) Diastolic CHF Code(s): I50.30 - UNSPECIFIED DIASTOLIC (CONGESTIVE) HEART FAILURE Qualifiers: Heart failure chronicity: chronic Qualified Code(s): I50.32 - Chronic diastolic (congestive) heart failure (7) Rhabdomyolysis Code(s): M62.82 - RHABDOMYOLYSIS Qualifiers: Rhabdomyolysis type: non-traumatic Qualified Code(s): M62.82 - Rhabdomyolysis Assessment/Plan Current Active Problems DM2 hyperglycemia,uncontrolled Anxiety (Acute) Atrial fibrillation with RVR (Acute) Atrial flutter (Acute) COPD (chronic obstructive pulmonary disease) (Acute) COPD exacerbation (Acute) Chronic pain (Acute) Diastolic CHF (Acute) Rhabdomyolysis (Acute) Abnormal Lab Results 03/25/19 03/25/19 05:46 05:46 RBC 3.89 L Hgb 10.5 L Hct 32.5 L RDW 16.3 H Sodium 133 L Chloride 95 L BUN 58.6 H Creatinine 3.3 H Random Glucose 612 H* Calcium 7.8 L ALT 89 H Total Protein 5.5 L Albumin 2.7 L Laboratory Results - last 24 hr 03/25/19 03/25/19 03/25/19 05:46 05:46 05:50 WBC 6.4 RBC 3.89 L Hgb 10.5 L Hct 32.5 L MCV 83.7 MCH 27.1 MCHC 32.4 RDW 16.3 H Plt Count 166 MPV 8.0 Absolute Neuts (auto) 3.9 Neutrophils % 61.2 Lymphocytes % 28.8 D Monocytes % 8.8 Eosinophils % 0.9 Basophils % 0.3 Nucleated RBC % 0 Sodium 133 L Potassium 4.8 Chloride 95 L Carbon Dioxide 29 Anion Gap 9 BUN 58.6 H Creatinine 3.3 H Est GFR (CKD-EPI)AfAm 21.52 Est GFR (CKD-EPI)NonAf 18.57 POC Glucometer 593 Random Glucose 612 H* Calcium 7.8 L Total Bilirubin 0.4 AST 27 ALT 89 H Alkaline Phosphatase 62 Total Protein 5.5 L Albumin 2.7 L 03/25/19 16:55 WBC RBC Hgb Hct MCV MCH MCHC RDW Plt Count MPV Absolute Neuts (auto) Neutrophils % Lymphocytes % Monocytes % Eosinophils % Basophils % Nucleated RBC % Sodium Potassium Chloride Carbon Dioxide Anion Gap BUN Creatinine Est GFR (CKD-EPI)AfAm Est GFR (CKD-EPI)NonAf POC Glucometer > 600 Random Glucose Calcium Total Bilirubin AST ALT Alkaline Phosphatase Total Protein Albumin plan: bgm qid novlog scale novolog 70/30 25 units bid levemir 50 units am
[2019-03-25] MEDS ORDERED: INSULIN SLIDING SCALE (NOVOLOG) 1 VIAL SQ SCH ×2 (22:00→22:01)
[2019-03-25] MEDS: ROSUVASTATIN CA 20 MG TABLET (FP) PO SCH (22:17)
[2019-03-25] MEDS: LIDOCAINE PATCH REMOVAL MC SCH (22:18)
[2019-03-25] MEDS ORDERED: INSULIN (LEVEMIR) 100 UNITS/ML UNITS SQ ONE (23:50)
[2019-03-26] MEDS: INSULIN SLIDING SCALE (NOVOLOG) 1 VIAL SQ SCH ×6 (00:08→23:01)
[2019-03-26] MEDS: HYDROmorphone HCl 2 MG/ML VIAL IVPUSH PRN ×2 (01:49→10:09)
[2019-03-26] MEDS: INSULIN (NOVOLOG MIX 70/30) 100 UNITS/ML MDV SQ SCH ×2 (06:54→16:27)
[2019-03-26] MEDS: INSULIN (LEVEMIR) 100 UNITS/ML UNITS SQ SCH (06:54)
[2019-03-26] MEDS: diazePAM 5 MG TABLET PO PRN ×2 (06:59→20:26)
[2019-03-26] MEDS ORDERED: INSULIN (LEVEMIR) 100 UNITS/ML UNITS SQ SCH (07:00)
[2019-03-26] MEDS: TAMSULOSIN HCL 0.4 MG CAP PO SCH (08:17)
[2019-03-26] MEDS: ARFORMOTEROL TARTRATE 15 MCG/2 ML VIAL NEB SCH ×2 (08:35→21:04)
[2019-03-26] MEDS: oxyCODONE HCL 5 MG TABLET PO SCH ×2 (10:01→22:22)
[2019-03-26] MEDS: LIDOCAINE 5% TOPICAL PATCH TP SCH (10:01)
[2019-03-26] MEDS: TAPENTADOL HCL 50 MG TAB.ER.12H PO SCH ×2 (10:01→22:20)
[2019-03-26] MEDS: TORSEMIDE 20 MG TABLET (FP) PO SCH (10:01)
[2019-03-26] MEDS: ASPIRIN COATED 81 MG TABLET.EC PO SCH (10:02)
[2019-03-26] MEDS: MONTELUKAST NA 10 MG TABLET PO SCH (10:02)
[2019-03-26] MEDS: APIXABAN 2.5 MG TABLET PO SCH ×2 (10:02→22:21)
[2019-03-26] MEDS: FINASTERIDE 5 MG TABLET (FP) PO SCH (10:02)
[2019-03-26] MEDS: ACETAMINOPHEN 325 MG TABLET (FP) PO SCH ×2 (10:02→22:19)
[2019-03-26] MEDS: PANTOPRAZOLE 40 MG TABLET (FP) PO SCH (10:03)
[2019-03-26] MEDS: predniSONE 20 MG TABLET (UD) PO SCH (10:03)
[2019-03-26] MEDS: amLODIPine BESYLATE 10 MG TABLET (FP) PO SCH (10:03)
[2019-03-26] MEDS: hydrALAZINE HCL 25 MG TABLET (FP) PO SCH ×2 (10:03→22:18)
[2019-03-26 10:04] LABS: BASO % 0.1 % (0-2.0); EOS % 0.8 % (0-4.5); HEMATOCRIT 37.2 % (35.4-49); HEMOGLOBIN 11.9 GM/dL (11.7-16.9); LYMPH % 41.2 % (8-40); MCH 26.7 pg (25.7-33.7); MEAN CELL VOLUME 83.5 fl (80-96); MEAN PLT VOLUME 7.6 fl (7.5-11.1); MONO % 10.3 % (3.8-10.2); NEUT % 47.6 % (42.8-82.8); PLATELET COUNT 213 K/MM3 (134-434); RBC 4.45 M/mm3 (4.00-5.60); RDW 16.2 % (11.9-15.9)
[2019-03-26] MEDS: LIPASE/PROTEASE/AMYLASE 36,000 UNIT CAPSULE PO SCH ×3 (10:04→17:26)
[2019-03-26] MEDS: ISOSORBIDE MONONITRATE 30 MG TAB.SR.24H (FP) PO SCH (10:07)
[2019-03-26] MEDS: SENNOSIDES/DOCUSATE COMBO (SENNA PLUS) TABLET (UD) PO SCH (10:07)
[2019-03-26] MEDS: POLYETHYLENE GLYCOL 3350 119 GM BTL PO SCH ×2 (10:07→22:23)
[2019-03-26] MEDS: TIOTROPIUM BROMIDE 2.5 MCG (SPIRIVA) RESPIMAT INHALER IH SCH (10:09)
[2019-03-26 10:26] LABS: ALBUMIN 3.2 g/dl (3.4-5.0); BILIRUBIN,TOTAL 0.4 mg/dL (0.2-1); BLOOD UREA NITROGEN 61.6 mg/dL (7-18); CALCIUM 9.4 mg/dL (8.5-10.1); CREATININE 3.3 mg/dL (0.55-1.3); POTASSIUM 5.2 mmol/L (3.5-5.1); TOT PROT 6.3 g/dl (6.4-8.2)
--- NOTE | 2019-03-26 11:36 | CONSULT ---
Consult - text type - Consultation Consultation Note: Renal consult for LOVE on CKD This is a 63 year old gentleman with history of CKD/LOVE, hypertension, DM, hyperlipidemia, GRACIE s/p trach, CAD s/p CABG, CHF with diastolic dysfunction who presented with chest pain and new onset Afib and noted to have LOVE during hospital course. Cr was 1.8 on presentation and has now mackenzie to 3.3. No contrast exposure noted. No NSAID exposure noted. On ACEi (was restarted after recent admission). On Diuretics. No skin rash. Does report bilateral flank pain. No dysuira, frequency or urgency. No CP, sob, abd pain, fever or chills. PMhx: as above Allergies: NKDA Family Hx: NC Social Hx: No T/A/D ROS: as per HPI, all other pertinent ros negative Home Medications Medication Instructions Recorded Albuterol Sulfate Inhaler - 1 - 2 inh PO Q4H PRN 08/18/17 [Ventolin HFA Inhaler -] Arformoterol Tartrate [Brovana] 15 mcg IH ASDIR 08/18/17 Aspirin [Aspirin EC] 81 mg PO DAILY 08/18/17 Clopidogrel Bisulfate [Plavix] 75 mg PO DAILY 08/18/17 Dexlansoprazole [Dexilant] 30 mg PO DAILY 08/18/17 Insulin Pump Controller [Snap 1 each ASDIR 08/18/17 Insulin Pump Controller] Montelukast Sodium [Singulair] 10 mg PO DAILY 08/18/17 Tiotropium Mereta [Spiriva] 1 puff IH DAILY 08/18/17 Finasteride [Proscar -] 5 mg PO DAILY tablet 09/20/17 Lipase/Protease/Amylase [Stacy Hackett 1 cap PO TIDCM capsule. 09/20/17 36,000 Units Capsule] Ramipril [Altace] 10 mg PO DAILY capsule 09/20/17 Tamsulosin HCl [Flomax -] 0.4 mg PO DAILY@0830 cap.er.24h 09/20/17 Amitriptyline HCl [Elavil -] 75 mg PO DAILY 03/30/18 Gabapentin 800 mg PO TID 03/30/18 Albuterol 0.083% Nebulizer Elena 1 amp NEB Q8H PRN #30 amp 07/26/18 [Ventolin 0.083% Nebulizer Soln -] Mometasone Furoate [Asmanex 220Mcg 2 puff IH BID #2 inhaler 07/26/18 -] Mag Hydrox/Al Hydrox/Simeth 30 ml PO Q6H PRN #1 bottle 09/27/18 [MAALOX *SUSPENSION* -] Polyethylene Glycol 3350 [Miralax 17 gm PO BID #1 bottle 09/27/18 119 gm Btl -] Sennosides/Docusate Sodium [Senna 1 each PO DAILY #20 tablet 09/27/18 Laxative Tablet] Chlorthalidone [Hygroton -] 25 mg PO DAILY #60 tablet 10/14/18 Rosuvastatin [Crestor -] 20 mg PO HS #30 tablet 10/14/18 Amlodipine Besylate [Norvasc -] 10 mg PO DAILY 03/01/19 Arformoterol Tartrate [Brovana] 15 mcg IH DAILY 03/01/19 Budesonide/Formeterol Fumarate 1 inh PO BID 03/01/19 [SYMBICORT 160/4.5mcg -] Diazepam 5 mg PO PRN 03/01/19 HYDROmorphone [Dilaudid -] 4 mg PO Q4H 03/01/19 Lipase/Protease/Amylase [Creon Dr 1 each PO TID 03/01/19 36,000 Units Capsule] Mesalamine [Pentasa] 500 mg PO TID 03/01/19 Ondansetron [Zofran -] 4 mg PO TID 03/01/19 Oxycodone HCl/Acetaminophen 1 each PO BID 03/01/19 [Oxycodone-Acetaminophen 10-325] Prednisone 60 mg PO DAILY 03/01/19 Tapentadol ER [Nucynta ER -] 150 mg PO BID 03/01/19 Albuterol Sulfate Inhaler - 2 puff IH Q4H PRN #1 inhaler 03/16/19 [Ventolin HFA Inhaler -] Arformoterol Tartrate [Brovana -] 1 amp NEB RBID #1 pump 03/16/19 Isosorbide Mononitrate [Imdur -] 30 mg PO DAILY #30 tab.sr.24h 03/16/19 Nifedipine ER [Procardia XL -] 30 mg PO DAILY #30 tab.er.24 03/16/19 Nystatin Oral Suspension - 500,000 units PO Q6HPO #1 bottle 03/16/19 [Nystatin Oral Susp 906115 Units/5 ML -] Tiotropium Mereta [Spiriva 2 puff IH DAILY #1 inhaler 03/16/19 Respimat] Torsemide [Demadex -] 40 mg PO DAILY #30 tablet 03/16/19 metroNIDAZOLE [Flagyl -] 250 mg PO TID #21 tablet 03/16/19 predniSONE [Deltasone -] 20 mg PO DAILY #30 tablet 03/16/19 hydrALAZINE HCL [Apresoline -] 25 mg PO BID 03/22/19 Vital Signs Temperature 97.6 F 03/26/19 08:48 Pulse Rate 63 03/26/19 08:48 Respiratory Rate 18 03/26/19 08:52 Blood Pressure 124/72 03/26/19 08:48 O2 Sat by Pulse Oximetry (%) 97 03/26/19 08:52 Intake & Output 03/23/19 03/24/19 03/25/19 03/26/19 23:59 23:59 23:59 23:59 Intake Total 260 1330 740 370 Output Total 400 Balance -140 1330 740 370 Weight 126.552 kg 126.28 kg 127.913 kg 127.459 kg NAD awake and alert neck supple, no JVD RRR, no M/R CTA soft obese, NT/ND trace LE edema CBC, BMP 03/26/19 09:40 03/26/19 09:40 Current Medications Acetaminophen (Tylenol -) 325 mg PO BID [facility] Last Admin: 03/26/19 10:02 Dose: 325 mg Al Hydroxide/Mg Hydroxide (Mylanta Suspension -) 30 ml PO Q6H PRN PRN Reason: DYSPEPSIA Albuterol Sulfate (Ventolin 0.083% Nebulizer Soln -) 1 amp NEB Q8H PRN PRN Reason: WHEEZING Last Admin: 03/24/19 17:51 Dose: 1 amp Amlodipine Besylate (Norvasc -) 10 mg PO DAILY [facility] Last Admin: 03/26/19 10:03 Dose: 10 mg Apixaban (Eliquis -) 2.5 mg PO BID [facility] Last Admin: 03/26/19 10:02 Dose: 2.5 mg Arformoterol Tartrate (Brovana (Restricted To Pulmonology/Resp) -) 1 amp NEB RBID [facility] Last Admin: 03/26/19 08:35 Dose: 1 amp Aspirin (Ecotrin -) 81 mg PO DAILY [facility] Last Admin: 03/26/19 10:02 Dose: 81 mg Chlorthalidone (Hygroton -) 25 mg PO DAILY [facility] Last Admin: 03/25/19 09:08 Dose: 25 mg Diazepam (Valium -) 5 mg PO Q8H PRN PRN Reason: ANXIETY Last Admin: 03/26/19 06:59 Dose: 5 mg Diltiazem HCl (Cardizem Cd -) 120 mg PO DAILY [facility] Last Admin: 03/26/19 10:03 Dose: 120 mg Finasteride (Proscar -) 5 mg PO DAILY [facility] Last Admin: 03/26/19 10:02 Dose: 5 mg Hydralazine HCl (Apresoline -) 25 mg PO BID [facility] Last Admin: 03/26/19 10:03 Dose: 25 mg Hydromorphone HCl (Dilaudid Vial -) 4 mg IVPUSH Q6H PRN PRN Reason: PAIN LEVEL 6-10 Last Admin: 03/26/19 10:09 Dose: 4 mg Insulin Aspart (Novolog Mix 70/30 Vial) 25 units SQ BIDAC [facility] Last Admin: 03/26/19 06:54 Dose: 25 units Insulin Aspart (Novolog Vial Sliding Scale -) 1 vial SQ Q4H [facility]; Protocol Last Admin: 03/26/19 06:55 Dose: 6 units Insulin Detemir (Levemir Vial) 50 units SQ AM [facility] Last Admin: 03/26/19 06:54 Dose: 50 units Isosorbide Mononitrate (Imdur -) 30 mg PO DAILY [facility] Last Admin: 03/26/19 10:07 Dose: 30 mg Lidocaine (Lidoderm Patch -) 1 patch TP DAILY [facility] Last Admin: 03/26/19 10:01 Dose: 1 patch Miscellaneous (Lidoderm Patch Removal) 1 each MC DAILY@2200 [facility] Last Admin: 03/25/19 22:18 Dose: Not Given Montelukast Sodium (Singulair -) 10 mg PO DAILY [facility] Last Admin: 03/26/19 10:02 Dose: 10 mg Oxycodone HCl (Roxicodone -) 10 mg PO BID [facility] Last Admin: 03/26/19 10:01 Dose: 10 mg Pancrelipase (Creon Dr 36,000 Units Capsule) 1 cap PO TIDCM [facility] Last Admin: 03/26/19 10:04 Dose: 1 cap Pantoprazole Sodium (Protonix -) 40 mg PO DAILY [facility] Last Admin: 03/26/19 10:03 Dose: 40 mg Polyethylene Glycol (Miralax (For Daily Use) -) 17 gm PO BID [facility] Last Admin: 03/26/19 10:07 Dose: 17 gm Prednisone (Deltasone -) 20 mg PO DAILY [facility] Last Admin: 03/26/19 10:03 Dose: 20 mg Ramipril (Altace -) 10 mg PO DAILY [facility] Last Admin: 03/25/19 09:02 Dose: 10 mg Rosuvastatin Calcium (Crestor -) 20 mg PO HS [facility] Last Admin: 03/25/19 22:17 Dose: 20 mg Senna/Docusate Sodium (Pericolace -) 1 tablet PO DAILY [facility] Last Admin: 03/26/19 10:07 Dose: 1 tablet Tamsulosin HCl (Flomax -) 0.4 mg PO DAILY@0830 [facility] Last Admin: 03/26/19 08:17 Dose: 0.4 mg Tapentadol (Nucynta Er -) 150 mg PO BID [facility] Last Admin: 03/26/19 10:01 Dose: 150 mg Tiotropium Mereta (Spiriva Respimat) 2 puff IH DAILY [facility] Last Admin: 03/26/19 10:09 Dose: 2 puff Torsemide (Demadex -) 40 mg PO DAILY [facility] Last Admin: 03/26/19 10:01 Dose: 40 mg 63 year old gentleman with history of CKD/LOVE, hypertension, DM, hyperlipidemia , GRACIE s/p trach, CAD s/p CABG, CHF with diastolic dysfunction who presented with chest pain and new onset Afib and noted to have LOVE during hospital course. 1. Acute kidney injury 2. CKD 3. CHF 4. Chest pain r/o ACS 5. New Onset Afib Suspected LOVE may be due to renal hypoprofusion in setting of diuretics/ACEi and new onset afibb check urine studies for FeUra, UPCR and Urine Eos Check Renal US to r/o obstruction given flank pain hold ACEI and decrease torsemide to 20mg daily Thank you Will follow Az Nelson DO
--- NOTE | 2019-03-26 13:37 | PN ---
Progress Note, Physician Chief Complaint: Atrial Fibrillation with RVR improved LV Diastolic Dysfunction CAD s/p CABG COPD/asthma Opiate Dependence Obstructive Sleep Apnea s/p Tracheostomy Chronic Pancreatitis HTN Hyperlipidemia History of Present Illness: NAD c/o pain Returned from renal U/S - Current Medication List Current Medications: Active Medications Acetaminophen (Tylenol -) 325 mg PO BID [facility] Last Admin: 03/26/19 10:02 Dose: 325 mg Al Hydroxide/Mg Hydroxide (Mylanta Suspension -) 30 ml PO Q6H PRN PRN Reason: DYSPEPSIA Albuterol Sulfate (Ventolin 0.083% Nebulizer Soln -) 1 amp NEB Q8H PRN PRN Reason: WHEEZING Last Admin: 03/24/19 17:51 Dose: 1 amp Amlodipine Besylate (Norvasc -) 10 mg PO DAILY [facility] Last Admin: 03/26/19 10:03 Dose: 10 mg Apixaban (Eliquis -) 2.5 mg PO BID [facility] Last Admin: 03/26/19 10:02 Dose: 2.5 mg Arformoterol Tartrate (Brovana (Restricted To Pulmonology/Resp) -) 1 amp NEB RBID [facility] Last Admin: 03/26/19 08:35 Dose: 1 amp Aspirin (Ecotrin -) 81 mg PO DAILY [facility] Last Admin: 03/26/19 10:02 Dose: 81 mg Chlorthalidone (Hygroton -) 25 mg PO DAILY [facility] Last Admin: 03/25/19 09:08 Dose: 25 mg Diazepam (Valium -) 5 mg PO Q8H PRN PRN Reason: ANXIETY Last Admin: 03/26/19 06:59 Dose: 5 mg Diltiazem HCl (Cardizem Cd -) 120 mg PO DAILY [facility] Last Admin: 03/26/19 10:03 Dose: 120 mg Finasteride (Proscar -) 5 mg PO DAILY [facility] Last Admin: 03/26/19 10:02 Dose: 5 mg Hydralazine HCl (Apresoline -) 25 mg PO BID [facility] Last Admin: 03/26/19 10:03 Dose: 25 mg Hydromorphone HCl (Dilaudid -) 4 mg PO Q4H PRN PRN Reason: PAIN LEVEL 6-10 Insulin Aspart (Novolog Mix 70/30 Vial) [facility] Last Admin: 09/15/19 06:54 Dose: 25 units Insulin Aspart (Novolog Vial Sliding Scale -) 1 vial SQ Q4H [facility]; Protocol Last Admin: 03/26/19 11:52 Dose: Not Given Insulin Detemir (Levemir Vial) 50 units SQ AM [facility] Last Admin: 03/26/19 06:54 Dose: 50 units Isosorbide Mononitrate (Imdur -) 30 mg PO DAILY [facility] Last Admin: 03/26/19 10:07 Dose: 30 mg Lidocaine (Lidoderm Patch -) 1 patch TP DAILY [facility] Last Admin: 03/26/19 10:01 Dose: 1 patch Miscellaneous (Lidoderm Patch Removal) 1 each MC DAILY@2200 [facility] Last Admin: 03/25/19 22:18 Dose: Not Given Montelukast Sodium (Singulair -) 10 mg PO DAILY [facility] Last Admin: 03/26/19 10:02 Dose: 10 mg Oxycodone HCl (Roxicodone -) 10 mg PO BID [facility] Last Admin: 03/26/19 10:01 Dose: 10 mg Pancrelipase (Creon Dr 36,000 Units Capsule) 1 cap PO TIDCM [facility] Last Admin: 03/26/19 12:01 Dose: 1 cap Pantoprazole Sodium (Protonix -) 40 mg PO DAILY [facility] Last Admin: 03/26/19 10:03 Dose: 40 mg Polyethylene Glycol (Miralax (For Daily Use) -) 17 gm PO BID [facility] Last Admin: 03/26/19 10:07 Dose: 17 gm Prednisone (Deltasone -) 20 mg PO DAILY [facility] Last Admin: 03/26/19 10:03 Dose: 20 mg Rosuvastatin Calcium (Crestor -) 20 mg PO HS [facility] Last Admin: 03/25/19 22:17 Dose: 20 mg Senna/Docusate Sodium (Pericolace -) 1 tablet PO DAILY [facility] Last Admin: 03/26/19 10:07 Dose: 1 tablet Tamsulosin HCl (Flomax -) 0.4 mg PO DAILY@0830 [facility] Last Admin: 03/26/19 08:17 Dose: 0.4 mg Tapentadol (Nucynta Er -) 150 mg PO BID [facility] Last Admin: 03/26/19 10:01 Dose: 150 mg Tiotropium [place] (Spiriva Respimat) 2 puff IH DAILY [facility] Last Admin: 03/26/19 10:09 Dose: 2 puff Torsemide (Demadex -) 20 mg PO DAILY MARK - Objective Vital Signs: Vital Signs Temperature 97.6 F 03/26/19 08:48 Pulse Rate 63 03/26/19 08:48 Respiratory Rate 18 03/26/19 08:52 Blood Pressure 124/72 03/26/19 08:48 O2 Sat by Pulse Oximetry (%) 97 03/26/19 08:52 Constitutional: Yes: Well Nourished, No Distress, Calm Cardiovascular: Yes: Regular Rate and Rhythm Respiratory: Yes: Regular, On Nasal O2, SOB, SOB on Exertion Gastrointestinal: Yes: Normal Bowel Sounds, Soft, Abdomen, Obese Musculoskeletal: Yes: Muscle Weakness Extremities: Yes: WNL Edema: No Peripheral Pulses WNL: Yes Neurological: Yes: Alert, Oriented Psychiatric: Yes: Alert, Oriented Labs: CBC, BMP 03/26/19 09:40 03/26/19 09:40 INR, PTT INR 1.05 (0.83-1.09) 03/22/19 11:00 Problem List - Problems (1) LOVE (acute kidney injury) Assessment/Plan: -nephrology consult -Hold Ramipril -Torsemide decreased to 20 mg po daily -Renal U/S done-results pending Code(s): N17.9 - ACUTE KIDNEY FAILURE, UNSPECIFIED Assessment/Plan (1) COPD (chronic obstructive pulmonary disease) Assessment/Plan: -Bronchodilators -PO prednisone -Pulmonary on board -Nasal O2 to keep SpO2>90% Code(s): J44.9 - CHRONIC OBSTRUCTIVE PULMONARY DISEASE, UNSPECIFIED (2) Atrial fibrillation with RVR Assessment/Plan: -amlodipine and diltiazem -HR controlled -cardiology on board -telemetry Code(s): I48.91 - UNSPECIFIED ATRIAL FIBRILLATION (3) BPH (benign prostatic hyperplasia) Assessment/Plan: -finastertide Code(s): N40.0 - BENIGN PROSTATIC HYPERPLASIA WITHOUT LOWER URINRY TRACT SYMP (4) HTN (hypertension) Assessment/Plan: -hydralazine Code(s): I10 - ESSENTIAL (PRIMARY) HYPERTENSION (5) Hyperlipidemia Assessment/Plan: -statin Code(s): E78.5 - HYPERLIPIDEMIA, UNSPECIFIED (6) Chronic pain Assessment/Plan: -Dilaudid 4 mg po q4hprn -Nucynta 150 mg po BID -Gabapentin 800 mg PO TID -Add Lidocaine patch -Oxycodone 10 mg po BID Code(s): G89.29 - OTHER CHRONIC PAIN (7) Chronic pancreatitis Assessment/Plan: pancreatic enzymes Code(s): K86.1 - OTHER CHRONIC PANCREATITIS
[2019-03-26] MEDS: GABAPENTIN 400 MG CAPSULE (FP) PO SCH ×2 (14:48→22:20)
--- NOTE | 2019-03-26 15:07 | PN ---
Progress Note (short form) - Note Progress Note: Feels better. OOB to chair. No CP or SOB. No acute events overnight. Intake & Output 03/23/19 03/24/19 03/25/19 03/26/19 23:59 23:59 23:59 23:59 Intake Total 260 1330 740 370 Output Total 400 Balance -140 1330 740 370 Weight 279 lb 278 lb 6.4 oz 282 lb 281 lb Last Vital Signs Temp Pulse Resp BP Pulse Ox 97.6 F 63 18 124/72 97 03/26/19 08:48 03/26/19 08:48 03/26/19 08:52 03/26/19 08:48 03/26/19 08:52 Active Medications Acetaminophen (Tylenol -) 325 mg PO BID [facility] Last Admin: 03/26/19 10:02 Dose: 325 mg Al Hydroxide/Mg Hydroxide (Mylanta Suspension -) 30 ml PO Q6H PRN PRN Reason: DYSPEPSIA Albuterol Sulfate (Ventolin 0.083% Nebulizer Soln -) 1 amp NEB Q8H PRN PRN Reason: WHEEZING Last Admin: 03/24/19 17:51 Dose: 1 amp Amlodipine Besylate (Norvasc -) 10 mg PO DAILY [facility] Last Admin: 03/26/19 10:03 Dose: 10 mg Apixaban (Eliquis -) 2.5 mg PO BID [facility] Last Admin: 03/26/19 10:02 Dose: 2.5 mg Arformoterol Tartrate (Brovana (Restricted To Pulmonology/Resp) -) 1 amp NEB RBID [facility] Last Admin: 03/26/19 08:35 Dose: 1 amp Aspirin (Ecotrin -) 81 mg PO DAILY [facility] Last Admin: 03/26/19 10:02 Dose: 81 mg Chlorthalidone (Hygroton -) 25 mg PO DAILY [facility] Last Admin: 03/25/19 09:08 Dose: 25 mg Diazepam (Valium -) 5 mg PO Q8H PRN PRN Reason: ANXIETY Last Admin: 03/26/19 06:59 Dose: 5 mg Diltiazem HCl (Cardizem Cd -) 120 mg PO DAILY [facility] Last Admin: 03/26/19 10:03 Dose: 120 mg Finasteride (Proscar -) 5 mg PO DAILY [facility] Last Admin: 03/26/19 10:02 Dose: 5 mg Gabapentin (Neurontin -) 800 mg PO TID [facility] Last Admin: 03/26/19 14:48 Dose: 800 mg Hydralazine HCl (Apresoline -) 25 mg PO BID [facility] Last Admin: 03/26/19 10:03 Dose: 25 mg Hydromorphone HCl (Dilaudid -) 4 mg PO Q4H PRN PRN Reason: PAIN LEVEL 6-10 Insulin Aspart (Novolog Mix 70/30 Vial) 25 units SQ BIDAC [facility] Last Admin: 03/26/19 06:54 Dose: 25 units Insulin Aspart (Novolog Vial Sliding Scale -) 1 vial SQ Q4H [facility]; Protocol Last Admin: 03/26/19 11:52 Dose: Not Given Insulin Detemir (Levemir Vial) 50 units SQ AM [facility] Last Admin: 03/26/19 06:54 Dose: 50 units Isosorbide Mononitrate (Imdur -) 30 mg PO DAILY [facility] Last Admin: 03/26/19 10:07 Dose: 30 mg Lidocaine (Lidoderm Patch -) 1 patch TP DAILY [facility] Last Admin: 03/26/19 10:01 Dose: 1 patch Miscellaneous (Lidoderm Patch Removal) 1 each MC DAILY@2200 [facility] Last Admin: 03/25/19 22:18 Dose: Not Given Montelukast Sodium (Singulair -) 10 mg PO DAILY [facility] Last Admin: 03/26/19 10:02 Dose: 10 mg Oxycodone HCl (Roxicodone -) 10 mg PO BID [facility] Last Admin: 03/26/19 10:01 Dose: 10 mg Pancrelipase (Creon Dr 36,000 Units Capsule) 1 cap PO TIDCM [facility] Last Admin: 03/26/19 12:01 Dose: 1 cap Pantoprazole Sodium (Protonix -) 40 mg PO DAILY [facility] Last Admin: 03/26/19 10:03 Dose: 40 mg Polyethylene Glycol (Miralax (For Daily Use) -) 17 gm PO BID [facility] Last Admin: 03/26/19 10:07 Dose: 17 gm Prednisone (Deltasone -) 20 mg PO DAILY [facility] Last Admin: 03/26/19 10:03 Dose: 20 mg Rosuvastatin Calcium (Crestor -) 20 mg PO HS [facility] Last Admin: 03/25/19 22:17 Dose: 20 mg Senna/Docusate Sodium (Pericolace -) 1 tablet PO DAILY [facility] Last Admin: 03/26/19 10:07 Dose: 1 tablet Tamsulosin HCl (Flomax -) 0.4 mg PO DAILY@0830 [facility] Last Admin: 03/26/19 08:17 Dose: 0.4 mg Tapentadol (Nucynta Er -) 150 mg PO BID [facility] Last Admin: 03/26/19 10:01 Dose: 150 mg Tiotropium [place] (Spiriva Respimat) 2 puff IH DAILY [facility] Last Admin: 03/26/19 10:09 Dose: 2 puff Torsemide (Demadex -) 20 mg PO DAILY [facility] Constitutional: Yes: NAD, Obese HENT: Yes: WNL Neck: Yes: WNL Cardiovascular: Yes: Pulse Irregular, S1, S2 Respiratory: Yes: Clear, no wheezing Gastrointestinal: Yes: Normal Bowel Sounds, Soft Extremities: Yes: WNL Edema: Yes Laboratory Results - last 24 hr 03/24/19 03/25/19 03/25/19 16:46 16:55 22:22 WBC RBC Hgb Hct MCV MCH MCHC RDW Plt Count MPV Absolute Neuts (auto) Neutrophils % Lymphocytes % Monocytes % Eosinophils % Basophils % Nucleated RBC % Sodium Potassium Chloride Carbon Dioxide Anion Gap BUN Creatinine Est GFR (CKD-EPI)AfAm Est GFR (CKD-EPI)NonAf POC Glucometer > 600 > 600 > 600 Random Glucose Calcium Total Bilirubin AST ALT Alkaline Phosphatase Total Protein Albumin 03/25/19 03/26/19 03/26/19 23:00 04:05 06:52 WBC RBC Hgb Hct MCV MCH MCHC RDW Plt Count MPV Absolute Neuts (auto) Neutrophils % Lymphocytes % Monocytes % Eosinophils % Basophils % Nucleated RBC % Sodium Potassium Chloride Carbon Dioxide Anion Gap BUN Creatinine Est GFR (CKD-EPI)AfAm Est GFR (CKD-EPI)NonAf POC Glucometer 297 149 Random Glucose 623 H* Calcium Total Bilirubin AST ALT Alkaline Phosphatase Total Protein Albumin 03/26/19 03/26/19 03/26/19 09:40 09:40 11:51 WBC 6.0 RBC 4.45 Hgb 11.9 Hct 37.2 MCV 83.5 MCH 26.7 MCHC 32.0 RDW 16.2 H Plt Count 213 D MPV 7.6 Absolute Neuts (auto) 2.9 Neutrophils % 47.6 D Lymphocytes % 41.2 H D Monocytes % 10.3 H Eosinophils % 0.8 Basophils % 0.1 Nucleated RBC % 0 Sodium 138 Potassium 5.2 H Chloride 100 Carbon Dioxide 30 Anion Gap 8 BUN 61.6 H Creatinine 3.3 H Est GFR (CKD-EPI)AfAm 21.52 Est GFR (CKD-EPI)NonAf 18.57 POC Glucometer 96 Random Glucose 126 H Calcium 9.4 Total Bilirubin 0.4 AST 29 ALT 98 H Alkaline Phosphatase 74 Total Protein 6.3 L Albumin 3.2 L Assessment/Plan Problem List - Problems (1) Atrial fibrillation with RVR Code(s): I48.91 - UNSPECIFIED ATRIAL FIBRILLATION (2) Chest pain Code(s): R07.9 - CHEST PAIN, UNSPECIFIED Qualifiers: Chest pain type: other chest pain Qualified Code(s): R07.89 - Other chest pain; R07.8 - Other chest pain (3) HTN (hypertension) Code(s): I10 - ESSENTIAL (PRIMARY) HYPERTENSION (4) Opiate dependence Code(s): F11.20 - OPIOID DEPENDENCE, UNCOMPLICATED (5) COPD (chronic obstructive pulmonary disease) Code(s): J44.9 - CHRONIC OBSTRUCTIVE PULMONARY DISEASE, UNSPECIFIED (6) Coronary artery disease Code(s): I25.10 - ATHSCL HEART DISEASE OF [place] CORONARY ARTERY W/O ANG PCTRS (7) Diabetes mellitus Code(s): E11.9 - TYPE 2 DIABETES MELLITUS WITHOUT COMPLICATIONS Qualifiers: Diabetes mellitus type: type 2 (8) GRACIE (obstructive sleep apnea) Code(s): G47.33 - OBSTRUCTIVE SLEEP APNEA (ADULT) (PEDIATRIC) Assessment/Plan Atrial Fibrillation with RVR improved LV Diastolic Dysfunction CAD s/p CABG COPD/asthma Opiate Dependence Obstructive Sleep Apnea s/p Tracheostomy Chronic Pancreatitis HTN Hyperlipidemia - rate/rhythm control - anticoagulation - Prednisone - inhaled bronchodilators - O2 to keep SpO2 >90% - uncap tracheostomy while sleeping Dr Vizcaino
--- NOTE | 2019-03-26 16:54 | PN ---
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 - Current Medication List Current Medications: Active Medications Acetaminophen (Tylenol -) 325 mg PO BID [facility] Last Admin: 03/26/19 10:02 Dose: 325 mg Al Hydroxide/Mg Hydroxide (Mylanta Suspension -) 30 ml PO Q6H PRN PRN Reason: DYSPEPSIA Albuterol Sulfate (Ventolin 0.083% Nebulizer Soln -) 1 amp NEB Q8H PRN PRN Reason: WHEEZING Last Admin: 03/24/19 17:51 Dose: 1 amp Amlodipine Besylate (Norvasc -) 10 mg PO DAILY [facility] Last Admin: 03/26/19 10:03 Dose: 10 mg Apixaban (Eliquis -) 2.5 mg PO BID [facility] Last Admin: 03/26/19 10:02 Dose: 2.5 mg Arformoterol Tartrate (Brovana (Restricted To Pulmonology/Resp) -) 1 amp NEB RBID [facility] Last Admin: 03/26/19 08:35 Dose: 1 amp Aspirin (Ecotrin -) 81 mg PO DAILY [facility] Last Admin: 03/26/19 10:02 Dose: 81 mg Chlorthalidone (Hygroton -) 25 mg PO DAILY [facility] Last Admin: 03/25/19 09:08 Dose: 25 mg Diazepam (Valium -) 5 mg PO Q8H PRN PRN Reason: ANXIETY Last Admin: 03/26/19 06:59 Dose: 5 mg Diltiazem HCl (Cardizem Cd -) 120 mg PO DAILY [facility] Last Admin: 03/26/19 10:03 Dose: 120 mg Finasteride (Proscar -) 5 mg PO DAILY [facility] Last Admin: 03/26/19 10:02 Dose: 5 mg Gabapentin (Neurontin -) 800 mg PO TID [facility] Last Admin: 03/26/19 14:48 Dose: 800 mg Hydralazine HCl (Apresoline -) 25 mg PO BID [facility] Last Admin: 03/26/19 10:03 Dose: 25 mg Hydromorphone HCl (Dilaudid -) 4 mg PO Q4H PRN PRN Reason: PAIN LEVEL 6-10 Insulin Aspart (Novolog Mix 70/30 Vial) 25 units SQ BIDAC [facility] Last Admin: 03/26/19 16:27 Dose: 25 units Insulin Aspart (Novolog Vial Sliding Scale -) 1 vial SQ Q4H [facility]; Protocol Last Admin: 03/26/19 16:25 Dose: 10 units Insulin Detemir (Levemir Vial) 50 units SQ AM [facility] Last Admin: 03/26/19 06:54 Dose: 50 units Isosorbide Mononitrate (Imdur -) 30 mg PO DAILY [facility] Last Admin: 03/26/19 10:07 Dose: 30 mg Lidocaine (Lidoderm Patch -) 1 patch TP DAILY [facility] Last Admin: 03/26/19 10:01 Dose: 1 patch Miscellaneous (Lidoderm Patch Removal) 1 each MC DAILY@2200 [facility] Last Admin: 03/25/19 22:18 Dose: Not Given Montelukast Sodium (Singulair -) 10 mg PO DAILY [facility] Last Admin: 03/26/19 10:02 Dose: 10 mg Oxycodone HCl (Roxicodone -) 10 mg PO BID [facility] Last Admin: 03/26/19 10:01 Dose: 10 mg Pancrelipase (Creon Dr 36,000 Units Capsule) 1 cap PO TIDCM [facility] Last Admin: 03/26/19 12:01 Dose: 1 cap Pantoprazole Sodium (Protonix -) 40 mg PO DAILY [facility] Last Admin: 03/26/19 10:03 Dose: 40 mg Polyethylene Glycol (Miralax (For Daily Use) -) 17 gm PO BID [facility] Last Admin: 03/26/19 10:07 Dose: 17 gm Prednisone (Deltasone -) 20 mg PO DAILY [facility] Last Admin: 03/26/19 10:03 Dose: 20 mg Rosuvastatin Calcium (Crestor -) 20 mg PO HS [facility] Last Admin: 03/25/19 22:17 Dose: 20 mg Senna/Docusate Sodium (Pericolace -) 1 tablet PO DAILY [facility] Last Admin: 03/26/19 10:07 Dose: 1 tablet Tamsulosin HCl (Flomax -) 0.4 mg PO DAILY@0830 [facility] Last Admin: 03/26/19 08:17 Dose: 0.4 mg Tapentadol (Nucynta Er -) 150 mg PO BID [facility] Last Admin: 03/26/19 10:01 Dose: 150 mg Tiotropium [place] (Spiriva Respimat) 2 puff IH DAILY [facility] Last Admin: 03/26/19 10:09 Dose: 2 puff Torsemide (Demadex -) 20 mg PO DAILY [facility] - Objective Vital Signs: Vital Signs Temperature 97.7 F 03/26/19 15:40 Pulse Rate 69 03/26/19 15:40 Respiratory Rate 18 03/26/19 15:40 Blood Pressure 108/73 03/26/19 15:40 O2 Sat by Pulse Oximetry (%) 97 03/26/19 08:52 Constitutional: Yes: No Distress, Calm Neck: Yes: Supple Cardiovascular: Yes: Pulse Irregular Respiratory: Yes: Regular, Diminished Gastrointestinal: Yes: Normal Bowel Sounds, Soft Edema: Yes Edema: LLE: 1+, RLE: 1+ Labs: CBC, BMP 03/26/19 09:40 03/26/19 09:40 INR, PTT INR 1.05 (0.83-1.09) 03/22/19 11:00 - ....Imaging EKG: Report Reviewed (Tele: Rate-controlled afib) Assessment/Plan Problem List - Problems (1) Anxiety Code(s): F41.9 - ANXIETY DISORDER, UNSPECIFIED (2) Atrial fibrillation with RVR Assessment/Plan: On diltiazem CD 120 qd for HR control On apixaban 2.5 bid for anticoagulation. Will f/u with Dr. Elaine, finger cobbler, as outpatient. Code(s): I48.91 - UNSPECIFIED ATRIAL FIBRILLATION (3) Diastolic CHF Code(s): I50.30 - UNSPECIFIED DIASTOLIC (CONGESTIVE) HEART FAILURE Qualifiers: Heart failure chronicity: chronic Qualified Code(s): I50.32 - Chronic diastolic (congestive) heart failure Demadex 20 qd (4) HTN (hypertension) Assessment/Plan: On diltiazem, hydralazine 25 bid and Imdur 30 qd, amlodipine 10 qd, chlorthalidone 25 qd F?u HR and BP serially. Code(s): I10 - ESSENTIAL (PRIMARY) HYPERTENSION (5) Hx of heart artery stent Assessment/Plan: On ASA, apixaban. F/u lipid profile on rosuvastatin. Code(s): Z95.5 - PRESENCE OF CORONARY ANGIOPLASTY IMPLANT AND GRAFT (6) Hyperlipidemia Assessment/Plan: On rosuvastatin 20 mg daily. F/u lipid profile on this dose (hx hypertriglyceridemia and elevated LDL), and increase if necessary. Code(s): E78.5 - HYPERLIPIDEMIA, UNSPECIFIED (7) Intractable low back pain Code(s): M54.5 - LOW BACK PAIN (8) Opiate dependence Assessment/Plan: Pt continues to ask for IV dilaudid. Recommend pain management evaluation. Code(s): F11.20 - OPIOID DEPENDENCE, UNCOMPLICATED (9) Renal insufficiency: Acute on CKD with hyperkalemia Code(s): N28.9 - DISORDER OF KIDNEY AND URETER, UNSPECIFIED Ramipril d/lakesha and Demadex decreased 20 qd with monitor renal fxn and electrolytes (10) COPD (chronic obstructive pulmonary disease) Code(s): J44.9 - CHRONIC OBSTRUCTIVE PULMONARY DISEASE, UNSPECIFIED BD, singulair 10 qd, prednisone taper (11) Diabetes mellitus Assessment/Plan: Poor control of glucose. THe importance of diet modification, weight loss, and increase in exercise, in addition to optimizing medications was discussed again. Code(s): E11.9 - TYPE 2 DIABETES MELLITUS WITHOUT COMPLICATIONS Qualifiers: Diabetes mellitus type: type 2 (12) GRACIE (obstructive sleep apnea) Assessment/Plan: nightly CPAP Code(s): G47.33 - OBSTRUCTIVE SLEEP APNEA (ADULT) (PEDIATRIC) (13) Obesity Code(s): E66.9 - OBESITY, UNSPECIFIED (14) Tracheostomy in place Code(s): Z98.89 - OTHER SPECIFIED POSTPROCEDURAL STATES * DO NOT USE *
[2019-03-26] MEDS: ROSUVASTATIN CA 20 MG TABLET (FP) PO SCH (22:20)
[2019-03-26] MEDS: LIDOCAINE PATCH REMOVAL MC SCH (22:23)
[2019-03-27 00:36] LABS: RATIO URIN PROTEIN/URIN CREAT 0.51 MG/DL
[2019-03-27] MEDS: INSULIN SLIDING SCALE (NOVOLOG) 1 VIAL SQ SCH ×5 (02:04→21:52)
[2019-03-27] MEDS: GABAPENTIN 400 MG CAPSULE (FP) PO SCH ×3 (05:45→21:37)
[2019-03-27] MEDS: INSULIN (NOVOLOG MIX 70/30) 100 UNITS/ML MDV SQ SCH ×2 (06:21→16:59)
[2019-03-27] MEDS: INSULIN (LEVEMIR) 100 UNITS/ML UNITS SQ SCH (06:22)
[2019-03-27 07:15] LABS: BLOOD UREA NITROGEN 60.1 mg/dL (7-18); CALCIUM 9.3 mg/dL (8.5-10.1); CREATININE 3.1 mg/dL (0.55-1.3); MAGNESIUM 3.1 mg/dL (1.8-2.4); PHOSPHOROUS 4.8 mg/dL (2.5-4.9); POTASSIUM 4.9 mmol/L (3.5-5.1)
[2019-03-27] MEDS ORDERED: PT OWN MED DRAWER 7, Y5N ONE ×2 (07:17→17:03)
[2019-03-27] MEDS: ARFORMOTEROL TARTRATE 15 MCG/2 ML VIAL NEB SCH ×2 (07:25→20:30)
--- NOTE | 2019-03-27 07:38 | PN ---
Progress Note, Physician History of Present Illness: The patient is a 62 year old male, with a significant PMH of CAD s/p GA, stents x6 (most recently 12/2015), CABG, HTN, HLD, chronic pancreatitis, chronic back pain, SBO, incarcerated hernia s/p repair x2 (September 2017), H.Pylori, BPH, COPD, bronchial asthma, tracheostomy in place (unplugs when sleeping for GRACIE), and anxiety, who presents to the emergency department from PCP office, Dr. Elaine for new onset rapid AFIB. 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 Patient was seen and admitted here in the ED 03/01/19 -03/18/19 for similar symptoms. He also notes bilateral leg pain and took dilaudid this morning. Patient notes he was suppose to be seen at [facility] for a biopsy of his pancreas. The patient denies shortness of breath, headache and dizziness. Denies fever, chills, nausea, vomiting, diarrhea and constipation. Denies dysuria, frequency, urgency and hematuria. Allergies: A Staff Nurse Anesthetist: Bola Haskins - Current Medication List Current Medications: Active Medications Acetaminophen (Tylenol -) 325 mg PO BID [facility] Last Admin: 03/26/19 22:19 Dose: 325 mg Al Hydroxide/Mg Hydroxide (Mylanta Suspension -) 30 ml PO Q6H PRN PRN Reason: DYSPEPSIA Albuterol Sulfate (Ventolin 0.083% Nebulizer Soln -) 1 amp NEB Q8H PRN PRN Reason: WHEEZING Last Admin: 03/24/19 17:51 Dose: 1 amp Amlodipine Besylate (Norvasc -) 10 mg PO DAILY [facility] Last Admin: 03/26/19 10:03 Dose: 10 mg Apixaban (Eliquis -) 2.5 mg PO BID [facility] Last Admin: 03/26/19 22:21 Dose: 2.5 mg Arformoterol Tartrate (Brovana (Restricted To Pulmonology/Resp) -) 1 amp NEB RBID [facility] Last Admin: 03/26/19 21:04 Dose: 1 amp Aspirin (Ecotrin -) 81 mg PO DAILY [facility] Last Admin: 03/26/19 10:02 Dose: 81 mg Chlorthalidone (Hygroton -) 25 mg PO DAILY [facility] Last Admin: 03/25/19 09:08 Dose: 25 mg Diazepam (Valium -) 5 mg PO Q8H PRN PRN Reason: ANXIETY Last Admin: 03/26/19 20:26 Dose: 5 mg Diltiazem HCl (Cardizem Cd -) 120 mg PO DAILY [facility] Last Admin: 03/26/19 10:03 Dose: 120 mg Finasteride (Proscar -) 5 mg PO DAILY [facility] Last Admin: 03/26/19 10:02 Dose: 5 mg Gabapentin (Neurontin -) 800 mg PO TID [facility] Last Admin: 03/27/19 05:45 Dose: 800 mg Hydralazine HCl (Apresoline -) 25 mg PO BID [facility] Last Admin: 03/26/19 22:18 Dose: 25 mg Hydromorphone HCl (Dilaudid -) 4 mg PO Q4H PRN PRN Reason: PAIN LEVEL 6-10 Last Admin: 03/27/19 05:45 Dose: 4 mg Insulin Aspart (Novolog Mix 70/30 Vial) 25 units SQ BIDAC [facility] Last Admin: 03/27/19 06:21 Dose: 25 units Insulin Aspart (Novolog Vial Sliding Scale -) 1 vial SQ [facility]; Protocol Last Admin: 03/27/19 06:19 Dose: 10 units Insulin Detemir (Levemir Vial) 50 units SQ AM [facility] Last Admin: 03/27/19 06:22 Dose: 50 units Isosorbide Mononitrate (Imdur -) 30 mg PO DAILY [facility] Last Admin: 03/26/19 10:07 Dose: 30 mg Lidocaine (Lidoderm Patch -) 1 patch TP DAILY [facility] Last Admin: 03/26/19 10:01 Dose: 1 patch Miscellaneous (Lidoderm Patch Removal) 1 each MC DAILY@2200 [facility] Last Admin: 03/26/19 22:23 Dose: 1 each Montelukast Sodium (Singulair -) 10 mg PO DAILY [facility] Last Admin: 03/26/19 10:02 Dose: 10 mg Oxycodone HCl (Roxicodone -) 10 mg PO BID [facility] Last Admin: 03/26/19 22:22 Dose: 10 mg Pancrelipase (Creon Dr 36,000 Units Capsule) 1 cap PO TIDCM [facility] Last Admin: 03/26/19 17:26 Dose: 1 cap Pantoprazole Sodium (Protonix -) 40 mg PO DAILY [facility] Last Admin: 03/26/19 10:03 Dose: 40 mg Polyethylene Glycol (Miralax (For Daily Use) -) 17 gm PO BID [facility] Last Admin: 03/26/19 22:23 Dose: 17 gm Prednisone (Deltasone -) 20 mg PO DAILY [facility] Last Admin: 03/26/19 10:03 Dose: 20 mg Rosuvastatin Calcium (Crestor -) 20 mg PO HS [facility] Last Admin: 03/26/19 22:20 Dose: 20 mg Senna/Docusate Sodium (Pericolace -) 1 tablet PO DAILY [facility] Last Admin: 03/26/19 10:07 Dose: 1 tablet Tamsulosin HCl (Flomax -) 0.4 mg PO DAILY@0830 [facility] Last Admin: 03/26/19 08:17 Dose: 0.4 mg Tapentadol (Nucynta Er -) 150 mg PO BID [facility] Last Admin: 03/26/19 22:20 Dose: 150 mg Tiotropium [place] (Spiriva Respimat) 2 puff IH DAILY [facility] Last Admin: 03/26/19 10:09 Dose: 2 puff Torsemide (Demadex -) 20 mg PO DAILY [facility] - Objective Vital Signs: Vital Signs Temperature 98.3 F 03/27/19 06:00 Pulse Rate 105 H 03/27/19 06:00 Respiratory Rate 20 03/27/19 06:00 Blood Pressure 150/82 03/27/19 06:00 O2 Sat by Pulse Oximetry (%) 100 03/26/19 21:00 Eyes: Yes: WNL, Conjunctiva Clear, EOM Intact HENT: Yes: WNL, Atraumatic, Normocephalic Neck: Yes: WNL, Supple, Trachea Midline Cardiovascular: Yes: Pulse Irregular, S1, S2 Respiratory: Yes: WNL, Regular, CTA Bilaterally Gastrointestinal: Yes: WNL, Normal Bowel Sounds Genitourinary: Yes: WNL Musculoskeletal: Yes: WNL Extremities: Yes: WNL Edema: No Integumentary: Yes: WNL Neurological: Yes: WNL, Alert, Oriented ...Motor Strength: WNL Psychiatric: Yes: WNL Labs: CBC, BMP 03/26/19 09:40 03/27/19 05:20 INR, PTT INR 1.05 (0.83-1.09) 03/22/19 11:00 Problem List - Problems (1) Anxiety Code(s): F41.9 - ANXIETY DISORDER, UNSPECIFIED (2) Atrial flutter Code(s): I48.92 - UNSPECIFIED ATRIAL FLUTTER Qualifiers: Atrial flutter type: unspecified Qualified Code(s): I48.92 - Unspecified atrial flutter (3) COPD exacerbation Code(s): J44.1 - CHRONIC OBSTRUCTIVE PULMONARY DISEASE W (ACUTE) EXACERBATION (4) Diastolic CHF Code(s): I50.30 - UNSPECIFIED DIASTOLIC (CONGESTIVE) HEART FAILURE Qualifiers: Heart failure chronicity: chronic Qualified Code(s): I50.32 - Chronic diastolic (congestive) heart failure (5) Rhabdomyolysis Code(s): M62.82 - RHABDOMYOLYSIS Qualifiers: Rhabdomyolysis type: non-traumatic Qualified Code(s): M62.82 - Rhabdomyolysis (6) LOVE (acute kidney injury) Code(s): N17.9 - ACUTE KIDNEY FAILURE, UNSPECIFIED (7) Abdominal pain Code(s): R10.9 - UNSPECIFIED ABDOMINAL PAIN (8) Abdominal pain in male Code(s): R10.9 - UNSPECIFIED ABDOMINAL PAIN (9) Atypical chest pain Code(s): R07.89 - OTHER CHEST PAIN (10) BMI 39.0-39.9,adult Code(s): Z68.39 - BODY MASS INDEX (BMI) 39.0-39.9, ADULT (11) BPH (benign prostatic hyperplasia) Code(s): N40.0 - BENIGN PROSTATIC HYPERPLASIA WITHOUT LOWER URINRY TRACT SYMP (12) Chest pain Code(s): R07.9 - CHEST PAIN, UNSPECIFIED Qualifiers: Chest pain type: other chest pain Qualified Code(s): R07.89 - Other chest pain; R07.8 - Other chest pain (13) Chronic abdominal pain Code(s): R10.9 - UNSPECIFIED ABDOMINAL PAIN; G89.29 - OTHER CHRONIC PAIN (14) Chronic pancreatitis Code(s): K86.1 - OTHER CHRONIC PANCREATITIS (15) Constipation Code(s): K59.00 - CONSTIPATION, UNSPECIFIED Qualifiers: Constipation type: unspecified constipation type Qualified Code(s): K59.00 - Constipation, unspecified (16) Elevated LFTs Code(s): R94.5 - ABNORMAL RESULTS OF LIVER FUNCTION STUDIES (17) HTN (hypertension) Code(s): I10 - ESSENTIAL (PRIMARY) HYPERTENSION (18) Hx of heart artery stent Code(s): Z95.5 - PRESENCE OF CORONARY ANGIOPLASTY IMPLANT AND GRAFT (19) Hyperglycemia Code(s): R73.9 - HYPERGLYCEMIA, UNSPECIFIED (20) Hyperkalemia Code(s): E87.5 - HYPERKALEMIA (21) Hyperlipidemia Code(s): E78.5 - HYPERLIPIDEMIA, UNSPECIFIED (22) Intractable low back pain Code(s): M54.5 - LOW BACK PAIN (23) Leg edema Code(s): R60.0 - LOCALIZED EDEMA (24) Opiate dependence Code(s): F11.20 - OPIOID DEPENDENCE, UNCOMPLICATED (25) Renal insufficiency Code(s): N28.9 - DISORDER OF KIDNEY AND URETER, UNSPECIFIED (26) Type 2 diabetes mellitus with hyperosmolarity without nonketotic hyperglycemic-hyperosmolar coma ([facility]) Code(s): E11.00 - TYPE 2 DIAB W HYPROSM W/O NONKET HYPRGLY-HYPROS COMA ([facility]) (27) ASHD (arteriosclerotic heart disease) Code(s): I25.10 - ATHSCL HEART DISEASE OF [place] CORONARY ARTERY W/O ANG PCTRS (28) COPD (chronic obstructive pulmonary disease) Code(s): J44.9 - CHRONIC OBSTRUCTIVE PULMONARY DISEASE, UNSPECIFIED (29) Coronary artery disease Code(s): I25.10 - ATHSCL HEART DISEASE OF [place] CORONARY ARTERY W/O ANG PCTRS (30) Diabetes mellitus Code(s): E11.9 - TYPE 2 DIABETES MELLITUS WITHOUT COMPLICATIONS Qualifiers: Diabetes mellitus type: type 2 (31) GRACIE (obstructive sleep apnea) Code(s): G47.33 - OBSTRUCTIVE SLEEP APNEA (ADULT) (PEDIATRIC) (32) Obesity Code(s): E66.9 - OBESITY, UNSPECIFIED (33) Tracheostomy in place Code(s): Z98.89 - OTHER SPECIFIED POSTPROCEDURAL STATES * DO NOT USE * (34) Asthma Code(s): J45.909 - UNSPECIFIED ASTHMA, UNCOMPLICATED Qualifiers: Asthma severity: unspecified severity (35) COPD exacerbation Code(s): J44.1 - CHRONIC OBSTRUCTIVE PULMONARY DISEASE W (ACUTE) EXACERBATION Assessment/Plan - Problems (1) Anxiety Code(s): F41.9 - ANXIETY DISORDER, UNSPECIFIED (2) Atrial fibrillation with RVR Assessment/Plan: On diltiazem CD 120 qd for HR control On apixaban 2.5 bid for anticoagulation. 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 Code(s): I48.91 - UNSPECIFIED ATRIAL FIBRILLATION (3) Diastolic CHF Code(s): I50.30 - UNSPECIFIED DIASTOLIC (CONGESTIVE) HEART FAILURE Qualifiers: Heart failure chronicity: chronic Qualified Code(s): I50.32 - Chronic diastolic (congestive) heart failure Demadex 20 qd (4) HTN (hypertension) Assessment/Plan: On diltiazem, hydralazine 25 bid and Imdur 30 qd, amlodipine 10 qd, chlorthalidone 25 qd F?u HR and BP serially. Code(s): I10 - ESSENTIAL (PRIMARY) HYPERTENSION (5) Hx of heart artery stent Assessment/Plan: On ASA, apixaban. F/u lipid profile on rosuvastatin. Code(s): Z95.5 - PRESENCE OF CORONARY ANGIOPLASTY IMPLANT AND GRAFT (6) Hyperlipidemia Assessment/Plan: On rosuvastatin 20 mg daily. F/u lipid profile on this dose (hx hypertriglyceridemia and elevated LDL), and increase if necessary. Code(s): E78.5 - HYPERLIPIDEMIA, UNSPECIFIED (7) Intractable low back pain Code(s): M54.5 - LOW BACK PAIN (8) Opiate dependence Assessment/Plan: Pt continues to ask for IV dilaudid. Recommend pain management evaluation. Code(s): F11.20 - OPIOID DEPENDENCE, UNCOMPLICATED (9) Renal insufficiency: Acute on CKD with hyperkalemia Code(s): N28.9 - DISORDER OF KIDNEY AND URETER, UNSPECIFIED Ramipril d/lakesha and Demadex decreased 20 qd with monitor renal fxn and electrolytes (10) COPD (chronic obstructive pulmonary disease) Code(s): J44.9 - CHRONIC OBSTRUCTIVE PULMONARY DISEASE, UNSPECIFIED BD, singulair 10 qd, prednisone taper (11) Diabetes mellitus Assessment/Plan: Poor control of glucose. THe importance of diet modification, weight loss, and increase in exercise, in addition to optimizing medications was discussed again. Code(s): E11.9 - TYPE 2 DIABETES MELLITUS WITHOUT COMPLICATIONS Qualifiers: Diabetes mellitus type: type 2 (12) GRACIE (obstructive sleep apnea) Assessment/Plan: nightly CPAP Code(s): G47.33 - OBSTRUCTIVE SLEEP APNEA (ADULT) (PEDIATRIC) (13) Obesity Code(s): E66.9 - OBESITY, UNSPECIFIED (14) Tracheostomy in place Code(s): Z98.89 - OTHER SPECIFIED POSTPROCEDURAL STATES * DO NOT USE *
[2019-03-27] MEDS: LIPASE/PROTEASE/AMYLASE 36,000 UNIT CAPSULE PO SCH ×3 (09:08→16:59)
[2019-03-27] MEDS: FINASTERIDE 5 MG TABLET (FP) PO SCH (09:08)
[2019-03-27] MEDS: TORSEMIDE 20 MG TABLET (FP) PO SCH (09:09)
[2019-03-27] MEDS: amLODIPine BESYLATE 10 MG TABLET (FP) PO SCH (09:09)
[2019-03-27] MEDS: hydrALAZINE HCL 25 MG TABLET (FP) PO SCH ×2 (09:09→21:40)
[2019-03-27] MEDS: APIXABAN 2.5 MG TABLET PO SCH ×2 (09:09→21:40)
[2019-03-27] MEDS: TAPENTADOL HCL 50 MG TAB.ER.12H PO SCH ×2 (09:09→21:37)
[2019-03-27] MEDS: PANTOPRAZOLE 40 MG TABLET (FP) PO SCH (09:09)
[2019-03-27] MEDS: ISOSORBIDE MONONITRATE 30 MG TAB.SR.24H (FP) PO SCH (09:10)
[2019-03-27] MEDS: ACETAMINOPHEN 325 MG TABLET (FP) PO SCH ×2 (09:10→21:36)
[2019-03-27] MEDS: oxyCODONE HCL 5 MG TABLET PO SCH ×2 (09:10→21:40)
[2019-03-27] MEDS: MONTELUKAST NA 10 MG TABLET PO SCH (09:10)
[2019-03-27] MEDS: predniSONE 20 MG TABLET (UD) PO SCH (09:10)
[2019-03-27] MEDS: TAMSULOSIN HCL 0.4 MG CAP PO SCH (09:10)
[2019-03-27] MEDS: TIOTROPIUM BROMIDE 2.5 MCG (SPIRIVA) RESPIMAT INHALER IH SCH (09:11)
[2019-03-27] MEDS: SENNOSIDES/DOCUSATE COMBO (SENNA PLUS) TABLET (UD) PO SCH (09:11)
[2019-03-27] MEDS: ASPIRIN COATED 81 MG TABLET.EC PO SCH (09:11)
[2019-03-27] MEDS: POLYETHYLENE GLYCOL 3350 119 GM BTL PO SCH ×2 (09:11→21:41)
[2019-03-27] MEDS: LIDOCAINE 5% TOPICAL PATCH TP SCH (09:11)
--- NOTE | 2019-03-27 11:13 | PN ---
Progress Note, Physician History of Present Illness: pulmonary alert,+ de la o,-cp,remains in afib - Current Medication List Current Medications: Active Medications Acetaminophen (Tylenol -) 325 mg PO BID [facility] Last Admin: 03/27/19 09:10 Dose: 325 mg Al Hydroxide/Mg Hydroxide (Mylanta Suspension -) 30 ml PO Q6H PRN PRN Reason: DYSPEPSIA Albuterol Sulfate (Ventolin 0.083% Nebulizer Soln -) 1 amp NEB Q8H PRN PRN Reason: WHEEZING Last Admin: 03/24/19 17:51 Dose: 1 amp Amlodipine Besylate (Norvasc -) 10 mg PO DAILY [facility] Last Admin: 03/27/19 09:09 Dose: 10 mg Apixaban (Eliquis -) 2.5 mg PO BID [facility] Last Admin: 03/27/19 09:09 Dose: 2.5 mg Arformoterol Tartrate (Brovana (Restricted To Pulmonology/Resp) -) 1 amp NEB RBID [facility] Last Admin: 03/27/19 07:25 Dose: 1 amp Aspirin (Ecotrin -) 81 mg PO DAILY [facility] Last Admin: 03/27/19 09:11 Dose: 81 mg Chlorthalidone (Hygroton -) 25 mg PO DAILY [facility] Last Admin: 03/25/19 09:08 Dose: 25 mg Diazepam (Valium -) 5 mg PO Q8H PRN PRN Reason: ANXIETY Last Admin: 03/26/19 20:26 Dose: 5 mg Diltiazem HCl (Cardizem Cd -) 120 mg PO DAILY [facility] Last Admin: 03/27/19 09:09 Dose: 120 mg Finasteride (Proscar -) 5 mg PO DAILY [facility] Last Admin: 03/27/19 09:08 Dose: 5 mg Gabapentin (Neurontin -) 800 mg PO TID [facility] Last Admin: 03/27/19 05:45 Dose: 800 mg Hydralazine HCl (Apresoline -) 25 mg PO BID [facility] Last Admin: 03/27/19 09:09 Dose: 25 mg Hydromorphone HCl (Dilaudid -) 4 mg PO Q4H PRN PRN Reason: PAIN LEVEL 6-10 Last Admin: 03/27/19 05:45 Dose: 4 mg Insulin Aspart (Novolog Mix 70/30 Vial) 25 units SQ BIDAC [facility] Last Admin: 03/27/19 06:21 Dose: 25 units Insulin Aspart (Novolog Vial Sliding Scale -) 1 vial SQ ACHS [facility]; Protocol Last Admin: 03/27/19 06:19 Dose: 10 units Insulin Detemir (Levemir Vial) 50 units SQ AM [facility] Last Admin: 03/27/19 06:22 Dose: 50 units Isosorbide Mononitrate (Imdur -) 30 mg PO DAILY [facility] Last Admin: 03/27/19 09:10 Dose: 30 mg Lidocaine (Lidoderm Patch -) 1 patch TP DAILY [facility] Last Admin: 03/27/19 09:11 Dose: 1 patch Miscellaneous (Lidoderm Patch Removal) 1 each MC DAILY@2200 [facility] Last Admin: 03/26/19 22:23 Dose: 1 each Montelukast Sodium (Singulair -) 10 mg PO DAILY [facility] Last Admin: 03/27/19 09:10 Dose: 10 mg Oxycodone HCl (Roxicodone -) 10 mg PO BID [facility] Last Admin: 03/27/19 09:10 Dose: 10 mg Pancrelipase (Creon Dr 36,000 Units Capsule) 1 cap PO TIDCM COUNT [facility] Last Admin: 03/27/19 09:08 Dose: 1 cap Pantoprazole Sodium (Protonix -) 40 mg PO DAILY [facility] Last Admin: 03/27/19 09:09 Dose: 40 mg Polyethylene Glycol (Miralax (For Daily Use) -) 17 gm PO BID [facility] Last Admin: 03/27/19 09:11 Dose: Not Given Prednisone (Deltasone -) 20 mg PO DAILY [facility] Last Admin: 03/27/19 09:10 Dose: 20 mg Rosuvastatin Calcium (Crestor -) 20 mg PO HS [facility] Last Admin: 03/26/19 22:20 Dose: 20 mg Senna/Docusate Sodium (Pericolace -) 1 tablet PO DAILY [facility] Last Admin: 03/27/19 09:11 Dose: 1 tablet Tamsulosin HCl (Flomax -) 0.4 mg PO DAILY@0830 [facility] Last Admin: 03/27/19 09:10 Dose: 0.4 mg Tapentadol (Nucynta Er -) 150 mg PO BID [facility] Last Admin: 03/27/19 09:09 Dose: 150 mg Tiotropium [place] (Spiriva Respimat) 2 puff IH DAILY COUNT [facility] Last Admin: 03/27/19 09:11 Dose: 2 puff Torsemide (Demadex -) 20 mg PO DAILY [facility] Last Admin: 03/27/19 09:09 Dose: 20 mg - Objective Vital Signs: Vital Signs Temperature 98.3 F 03/27/19 08:06 Pulse Rate 90 03/27/19 08:06 Respiratory Rate 20 03/27/19 08:14 Blood Pressure 144/79 03/27/19 08:06 O2 Sat by Pulse Oximetry (%) 100 03/27/19 08:14 Constitutional: Yes: Well Nourished, Calm Eyes: Yes: WNL HENT: Yes: WNL Neck: Yes: WNL Cardiovascular: Yes: Pulse Irregular, S1, S2 Respiratory: Yes: Diminished Gastrointestinal: Yes: Normal Bowel Sounds, Soft Extremities: Yes: WNL Edema: Yes Labs: CBC, BMP 03/26/19 09:40 03/27/19 05:20 INR, PTT INR 1.05 (0.83-1.09) 03/22/19 11:00 Assessment/Plan Problem List - Problems (1) Atrial fibrillation with RVR Code(s): I48.91 - UNSPECIFIED ATRIAL FIBRILLATION (2) Chest pain Code(s): R07.9 - CHEST PAIN, UNSPECIFIED Qualifiers: Chest pain type: other chest pain Qualified Code(s): R07.89 - Other chest pain; R07.8 - Other chest pain (3) HTN (hypertension) Code(s): I10 - ESSENTIAL (PRIMARY) HYPERTENSION (4) Opiate dependence Code(s): F11.20 - OPIOID DEPENDENCE, UNCOMPLICATED (5) COPD (chronic obstructive pulmonary disease) Code(s): J44.9 - CHRONIC OBSTRUCTIVE PULMONARY DISEASE, UNSPECIFIED (6) Coronary artery disease Code(s): I25.10 - ATHSCL HEART DISEASE OF [place] CORONARY ARTERY W/O ANG PCTRS (7) Diabetes mellitus Code(s): E11.9 - TYPE 2 DIABETES MELLITUS WITHOUT COMPLICATIONS Qualifiers: Diabetes mellitus type: type 2 (8) GRACIE (obstructive sleep apnea) Code(s): G47.33 - OBSTRUCTIVE SLEEP APNEA (ADULT) (PEDIATRIC) Assessment/Plan Atrial Fibrillation with RVR improved LV Diastolic Dysfunction CAD s/p CABG COPD/asthma Opiate Dependence Obstructive Sleep Apnea s/p Tracheostomy Chronic Pancreatitis HTN Hyperlipidemia - rate/rhythm control - anticoagulation - continue home dose prednisone - inhaled bronchodilators - O2 to keep SpO2 >90% - uncap tracheostomy while sleeping DR VANESSA
--- NOTE | 2019-03-27 12:42 | PN ---
Progress Note, Physician Chief Complaint: patient seen and examined wants iv sylwia tele in afib hr 80-90 - Current Medication List Current Medications: Active Medications Acetaminophen (Tylenol -) 325 mg PO BID [facility] Last Admin: 03/27/19 09:10 Dose: 325 mg Al Hydroxide/Mg Hydroxide (Mylanta Suspension -) 30 ml PO Q6H PRN PRN Reason: DYSPEPSIA Albuterol Sulfate (Ventolin 0.083% Nebulizer Soln -) 1 amp NEB Q8H PRN PRN Reason: WHEEZING Last Admin: 03/24/19 17:51 Dose: 1 amp Amlodipine Besylate (Norvasc -) 10 mg PO DAILY [facility] Last Admin: 03/27/19 09:09 Dose: 10 mg Apixaban (Eliquis -) 2.5 mg PO BID [facility] Last Admin: 03/27/19 09:09 Dose: 2.5 mg Arformoterol Tartrate (Brovana (Restricted To Pulmonology/Resp) -) 1 amp NEB RBID [facility] Last Admin: 03/27/19 07:25 Dose: 1 amp Aspirin (Ecotrin -) 81 mg PO DAILY [facility] Last Admin: 03/27/19 09:11 Dose: 81 mg Chlorthalidone (Hygroton -) 25 mg PO DAILY [facility] Last Admin: 03/25/19 09:08 Dose: 25 mg Diazepam (Valium -) 5 mg PO Q8H PRN PRN Reason: ANXIETY Last Admin: 03/26/19 20:26 Dose: 5 mg Diltiazem HCl (Cardizem Cd -) 120 mg PO DAILY [facility] Last Admin: 03/27/19 09:09 Dose: 120 mg Finasteride (Proscar -) 5 mg PO DAILY [facility] Last Admin: 03/27/19 09:08 Dose: 5 mg Gabapentin (Neurontin -) 800 mg PO TID [facility] Last Admin: 03/27/19 05:45 Dose: 800 mg Hydralazine HCl (Apresoline -) 25 mg PO BID [facility] Last Admin: 03/27/19 09:09 Dose: 25 mg Hydromorphone HCl (Dilaudid -) 4 mg PO Q4H PRN PRN Reason: PAIN LEVEL 6-10 Last Admin: 03/27/19 05:45 Dose: 4 mg Insulin Aspart ([facility] Mix 70/30 Vial) [facility] Admin: 03/27/19 06:21 Dose: 25 units Insulin Aspart (Novolog Vial Sliding Scale -) 1 vial SQ ACHS [facility]; Protocol Last Admin: 03/27/19 11:47 Dose: 6 units Insulin Detemir (Levemir Vial) 50 units SQ AM [facility] Last Admin: 03/27/19 06:22 Dose: 50 units Isosorbide Mononitrate (Imdur -) 30 mg PO DAILY [facility] Last Admin: 03/27/19 09:10 Dose: 30 mg Lidocaine (Lidoderm Patch -) 1 patch TP DAILY [facility] Last Admin: 03/27/19 09:11 Dose: 1 patch Miscellaneous (Lidoderm Patch Removal) 1 each MC DAILY@2200 [facility] Last Admin: 03/26/19 22:23 Dose: 1 each Montelukast Sodium (Singulair -) 10 mg PO DAILY [facility] Last Admin: 03/27/19 09:10 Dose: 10 mg Oxycodone HCl (Roxicodone -) 10 mg PO BID [facility] Last Admin: 03/27/19 09:10 Dose: 10 mg Pancrelipase (Creon Dr 36,000 Units Capsule) 1 cap PO TIDCM [facility] Last Admin: 03/27/19 11:45 Dose: 1 cap Pantoprazole Sodium (Protonix -) 40 mg PO DAILY [facility] Last Admin: 03/27/19 09:09 Dose: 40 mg Polyethylene Glycol (Miralax (For Daily Use) -) 17 gm PO BID [facility] Last Admin: 03/27/19 09:11 Dose: Not Given Prednisone (Deltasone -) 20 mg PO DAILY [facility] Last Admin: 03/27/19 09:10 Dose: 20 mg Rosuvastatin Calcium (Crestor -) 20 mg PO HS [facility] Last Admin: 03/26/19 22:20 Dose: 20 mg Senna/Docusate Sodium (Pericolace -) 1 tablet PO DAILY [facility] Last Admin: 03/27/19 09:11 Dose: 1 tablet Tamsulosin HCl (Flomax -) 0.4 mg PO DAILY@0830 [facility] Last Admin: 03/27/19 09:10 Dose: 0.4 mg Tapentadol (Nucynta Er -) 150 mg PO BID [facility] Last Admin: 03/27/19 09:09 Dose: 150 mg Tiotropium [place] (Spiriva Respimat) 2 puff IH DAILY [facility] Last Admin: 03/27/19 09:11 Dose: 2 puff Torsemide (Demadex -) 20 mg PO DAILY [facility] Last Admin: 03/27/19 09:09 Dose: 20 mg - Objective Vital Signs: Vital Signs Temperature 98.3 F 03/27/19 08:06 Pulse Rate 90 03/27/19 08:06 Respiratory Rate 20 03/27/19 08:14 Blood Pressure 144/79 03/27/19 08:06 O2 Sat by Pulse Oximetry (%) 100 03/27/19 08:14 Constitutional: Yes: Calm Cardiovascular: Yes: Pulse Irregular, S1, S2 Respiratory: Yes: Diminished Gastrointestinal: Yes: Normal Bowel Sounds, Soft Edema: Yes Neurological: Yes: Alert, Oriented Labs: CBC, BMP 03/26/19 09:40 03/27/19 05:20 INR, PTT INR 1.05 (0.83-1.09) 03/22/19 11:00 Problem List - Problems (1) Atrial fibrillation with RVR Assessment/Plan: eliquis and diltiazem 120mg HR controlled cardiology on board telemetry Code(s): I48.91 - UNSPECIFIED ATRIAL FIBRILLATION (2) COPD (chronic obstructive pulmonary disease) Assessment/Plan: bronchodilators and prednisone 20mg daily Code(s): J44.9 - CHRONIC OBSTRUCTIVE PULMONARY DISEASE, UNSPECIFIED (3) BPH (benign prostatic hyperplasia) Assessment/Plan: finastertide Code(s): N40.0 - BENIGN PROSTATIC HYPERPLASIA WITHOUT LOWER URINRY TRACT SYMP (4) HTN (hypertension) Assessment/Plan: hydralazine and norvasc Code(s): I10 - ESSENTIAL (PRIMARY) HYPERTENSION (5) Hyperlipidemia Assessment/Plan: statin Code(s): E78.5 - HYPERLIPIDEMIA, UNSPECIFIED (6) Chronic pain Assessment/Plan: dilaudid oral not iv gabapentin Code(s): G89.29 - OTHER CHRONIC PAIN (7) Chronic pancreatitis Assessment/Plan: pancreatic enzymes Code(s): K86.1 - OTHER CHRONIC PANCREATITIS (8) Diabetes mellitus Assessment/Plan: seen by endocrine and insulin adjusted Code(s): E11.9 - TYPE 2 DIABETES MELLITUS WITHOUT COMPLICATIONS Qualifiers: Diabetes mellitus type: type 2
--- NOTE | 2019-03-27 13:49 | PN ---
Progress Note (short form) - Note Progress Note: Renal follow up for LOVE on CKD Seen and examined at the bedside awake and alert offers no acute complaints denies any sob, cp, abd pain making urine Vital Signs Temperature 98.3 F 03/27/19 08:06 Pulse Rate 90 03/27/19 08:06 Respiratory Rate 20 03/27/19 08:14 Blood Pressure 144/79 03/27/19 08:06 O2 Sat by Pulse Oximetry (%) 100 03/27/19 08:14 Intake & Output 03/24/19 03/25/19 03/26/19 03/27/19 23:59 23:59 23:59 23:59 Intake Total 1330 740 390 550 Output Total 250 Balance 1330 740 140 550 Weight 126.28 kg 127.913 kg 127.459 kg 128.639 kg NAD awake and alert neck supple, no JVD RRR, no M/R CTA soft obese, NT/ND trace LE edema CBC, BMP 03/26/19 09:40 03/27/19 05:20 Current Medications Acetaminophen (Tylenol -) 325 mg PO BID [facility] Last Admin: 03/27/19 09:10 Dose: 325 mg Al Hydroxide/Mg Hydroxide (Mylanta Suspension -) 30 ml PO Q6H PRN PRN Reason: DYSPEPSIA Albuterol Sulfate (Ventolin 0.083% Nebulizer Soln -) 1 amp NEB Q8H PRN PRN Reason: WHEEZING Last Admin: 03/24/19 17:51 Dose: 1 amp Amlodipine Besylate (Norvasc -) 10 mg PO DAILY [facility] Last Admin: 03/27/19 09:09 Dose: 10 mg Apixaban (Eliquis -) 2.5 mg PO BID [facility] Last Admin: 03/27/19 09:09 Dose: 2.5 mg Arformoterol Tartrate (Brovana (Restricted To Pulmonology/Resp) -) 1 amp NEB RBID [facility] Last Admin: 03/27/19 07:25 Dose: 1 amp Aspirin (Ecotrin -) 81 mg PO DAILY [facility] Last Admin: 03/27/19 09:11 Dose: 81 mg Chlorthalidone (Hygroton -) 25 mg PO DAILY [facility] Last Admin: 03/25/19 09:08 Dose: 25 mg Diazepam (Valium -) 5 mg PO Q8H PRN PRN Reason: ANXIETY Last Admin: 03/26/19 20:26 Dose: 5 mg Diltiazem HCl (Cardizem Cd -) 120 mg PO DAILY [facility] Last Admin: 03/27/19 09:09 Dose: 120 mg Finasteride (Proscar -) 5 mg PO DAILY [facility] Last Admin: 03/27/19 09:08 Dose: 5 mg Gabapentin (Neurontin -) 800 mg PO TID [facility] Last Admin: 03/27/19 13:23 Dose: 800 mg Hydralazine HCl (Apresoline -) 25 mg PO BID [facility] Last Admin: 03/27/19 09:09 Dose: 25 mg Hydromorphone HCl (Dilaudid -) 4 mg PO Q4H PRN PRN Reason: PAIN LEVEL 6-10 Last Admin: 03/27/19 05:45 Dose: 4 mg Insulin Aspart (Novolog Mix 70/30 Vial) 25 units SQ BIDAC [facility] Last Admin: 03/27/19 06:21 Dose: 25 units Insulin Aspart (Novolog Vial Sliding Scale -) [address] [facility]; Protocol Last Admin: 03/27/19 11:47 Dose: 6 units Insulin Detemir (Levemir Vial) 50 units SQ AM [facility] Last Admin: 03/27/19 06:22 Dose: 50 units Isosorbide Mononitrate (Imdur -) 30 mg PO DAILY [facility] Last Admin: 03/27/19 09:10 Dose: 30 mg Lidocaine (Lidoderm Patch -) 1 patch TP DAILY [facility] Last Admin: 03/27/19 09:11 Dose: 1 patch Miscellaneous (Lidoderm Patch Removal) 1 each MC DAILY@2200 [facility] Last Admin: 03/26/19 22:23 Dose: 1 each Montelukast Sodium (Singulair -) 10 mg PO DAILY [facility] Last Admin: 03/27/19 09:10 Dose: 10 mg Oxycodone HCl (Roxicodone -) 10 mg PO BID [facility] Last Admin: 03/27/19 09:10 Dose: 10 mg Pancrelipase (Creon Dr 36,000 Units Capsule) 1 cap PO TIDCM [facility] Last Admin: 03/27/19 11:45 Dose: 1 cap Pantoprazole Sodium (Protonix -) 40 mg PO DAILY [facility] Last Admin: 03/27/19 09:09 Dose: 40 mg Polyethylene Glycol (Miralax (For Daily Use) -) 17 gm PO BID [facility] Last Admin: 03/27/19 09:11 Dose: Not Given Prednisone (Deltasone -) 20 mg PO DAILY [facility] Last Admin: 03/27/19 09:10 Dose: 20 mg Rosuvastatin Calcium (Crestor -) 20 mg PO HS [facility] Last Admin: 03/26/19 22:20 Dose: 20 mg Senna/Docusate Sodium (Pericolace -) 1 tablet PO DAILY [facility] Last Admin: 03/27/19 09:11 Dose: 1 tablet Tamsulosin HCl (Flomax -) 0.4 mg PO DAILY@0830 [facility] Last Admin: 03/27/19 09:10 Dose: 0.4 mg Tapentadol (Nucynta Er -) 150 mg PO BID [facility] Last Admin: 03/27/19 09:09 Dose: 150 mg Tiotropium [place] (Spiriva Respimat) 2 puff IH DAILY [facility] Last Admin: 03/27/19 09:11 Dose: 2 puff Torsemide (Demadex -) 20 mg PO DAILY [facility] Last Admin: 03/27/19 09:09 Dose: 20 mg 63 year old gentleman with history of CKD/LOVE, hypertension, DM, hyperlipidemia , GRACIE s/p trach, CAD s/p CABG, CHF with diastolic dysfunction who presented with chest pain and new onset Afib and noted to have LOVE during hospital course. 1. Acute kidney injury 2. CKD 3. CHF 4. Chest pain r/o ACS 5. New Onset Afib Suspected LOVE may be due to renal hypoprofusion in setting of diuretics/ACEi and new onset afibb Urine studies show low FeUrea consistent with hypoprofusion with preserved tubular function Renal US showed no obstruction Continue to hold ACEi at this time would benefit from renal artery doppler as an outpatient to r.o TERRANCE Continue Torsemide 20mg Daily Trend renal function and electrolytes Az Link DO
[2019-03-27] MEDS ORDERED: INSULIN (NOVOLOG) ASPART 100 UNITS/ML 10ML VIAL ONE (17:02)
[2019-03-27] MEDS ORDERED: INSULIN (NOVOLOG MIX 70/30) 100 UNITS/ML MDV SQ ONE (17:02)
[2019-03-27] MEDS: ROSUVASTATIN CA 20 MG TABLET (FP) PO SCH (21:39)
[2019-03-27] MEDS: LIDOCAINE PATCH REMOVAL MC SCH (21:40)
--- NOTE | 2019-03-28 00:10 | PN ---
Progress Note, Physician Chief Complaint: intractable pain - Current Medication List Current Medications: Active Medications Acetaminophen (Tylenol -) 325 mg PO BID REPLACED BY [facility] Last Admin: 03/27/19 21:36 Dose: 325 mg Al Hydroxide/Mg Hydroxide (Mylanta Suspension -) 30 ml PO Q6H PRN PRN Reason: DYSPEPSIA Albuterol Sulfate (Ventolin 0.083% Nebulizer Soln -) 1 amp NEB Q8H PRN PRN Reason: WHEEZING Last Admin: 03/24/19 17:51 Dose: 1 amp Amlodipine Besylate (Norvasc -) 10 mg PO DAILY REPLACED BY [facility] Last Admin: 03/27/19 09:09 Dose: 10 mg Apixaban (Eliquis -) 2.5 mg PO BID REPLACED BY [facility] Last Admin: 03/27/19 21:40 Dose: 2.5 mg Arformoterol Tartrate (Brovana (Restricted To Pulmonology/Resp) -) 1 amp NEB RBID REPLACED BY [facility] Last Admin: 03/27/19 20:30 Dose: 1 amp Aspirin (Ecotrin -) 81 mg PO DAILY REPLACED BY [facility] Last Admin: 03/27/19 09:11 Dose: 81 mg Chlorthalidone (Hygroton -) 25 mg PO DAILY REPLACED BY [facility] Last Admin: 03/25/19 09:08 Dose: 25 mg Diazepam (Valium -) 5 mg PO Q8H PRN PRN Reason: ANXIETY Last Admin: 03/26/19 20:26 Dose: 5 mg Diltiazem HCl (Cardizem Cd -) 120 mg PO DAILY REPLACED BY [facility] Last Admin: 03/27/19 09:09 Dose: 120 mg Finasteride (Proscar -) 5 mg PO DAILY REPLACED BY [facility] Last Admin: 03/27/19 09:08 Dose: 5 mg Gabapentin (Neurontin -) 800 mg PO TID REPLACED BY [facility] Last Admin: 03/27/19 21:37 Dose: 800 mg Hydralazine HCl (Apresoline -) 25 mg PO BID REPLACED BY [facility] Last Admin: 03/27/19 21:40 Dose: 25 mg Hydromorphone HCl (Dilaudid -) 4 mg PO Q4H PRN PRN Reason: PAIN LEVEL 6-10 Last Admin: 03/27/19 21:39 Dose: 4 mg Insulin Aspart (Novolog Mix 70/30 Vial) [facility] Last Admin: 03/27/19 16:59 Dose: 25 units Insulin Aspart (Novolog Vial Sliding Scale -) 1 vial SQ ACHS REPLACED BY [facility]; Protocol Last Admin: 03/27/19 21:52 Dose: 12 units Insulin Detemir (Levemir Vial) 50 units SQ AM REPLACED BY [facility] Last Admin: 03/27/19 06:22 Dose: 50 units Isosorbide Mononitrate (Imdur -) 30 mg PO DAILY REPLACED BY [facility] Last Admin: 03/27/19 09:10 Dose: 30 mg Lidocaine (Lidoderm Patch -) 1 patch TP DAILY REPLACED BY [facility] Last Admin: 03/27/19 09:11 Dose: 1 patch Miscellaneous (Lidoderm Patch Removal) 1 each MC DAILY@2200 REPLACED BY [facility] Last Admin: 03/27/19 21:40 Dose: 1 each Montelukast Sodium (Singulair -) 10 mg PO DAILY REPLACED BY [facility] Last Admin: 03/27/19 09:10 Dose: 10 mg Oxycodone HCl (Roxicodone -) 10 mg PO BID REPLACED BY [facility] Last Admin: 03/27/19 21:40 Dose: 10 mg Pancrelipase (Creon Dr 36,000 Units Capsule) 1 cap PO TIDCM REPLACED BY [facility] Last Admin: 03/27/19 16:59 Dose: 1 cap Pantoprazole Sodium (Protonix -) 40 mg PO DAILY REPLACED BY [facility] Last Admin: 03/27/19 09:09 Dose: 40 mg Polyethylene Glycol (Miralax (For Daily Use) -) 17 gm PO BID REPLACED BY [facility] Last Admin: 03/27/19 21:41 Dose: 17 gm Prednisone (Deltasone -) 20 mg PO DAILY REPLACED BY [facility] Last Admin: 03/27/19 09:10 Dose: 20 mg Rosuvastatin Calcium (Crestor -) 20 mg PO HS REPLACED BY [facility] Last Admin: 03/27/19 21:39 Dose: 20 mg Senna/Docusate Sodium (Pericolace -) 1 tablet PO DAILY REPLACED BY [facility] Last Admin: 03/27/19 09:11 Dose: 1 tablet Tamsulosin HCl (Flomax -) 0.4 mg PO DAILY@0830 REPLACED BY [facility] Last Admin: 03/27/19 09:10 Dose: 0.4 mg Tapentadol (Nucynta Er -) 150 mg PO BID REPLACED BY [facility] Last Admin: 03/27/19 21:37 Dose: 150 mg Tiotropium [place] (Spiriva Respimat) 2 puff IH DAILY REPLACED BY [facility] Last Admin: 03/27/19 09:11 Dose: 2 puff Torsemide (Demadex -) 20 mg PO DAILY [facility] Last Admin: 03/27/19 09:09 Dose: 20 mg - Objective Vital Signs: Vital Signs Temperature 98.9 F 03/27/19 18:00 Pulse Rate 68 03/27/19 18:00 Respiratory Rate 18 03/27/19 18:00 Blood Pressure 142/87 03/27/19 18:00 O2 Sat by Pulse Oximetry (%) 100 03/27/19 08:14 Constitutional: Yes: Anxious Eyes: Yes: EOM Intact HENT: Yes: Normocephalic Neck: Yes: Trachea Midline Cardiovascular: Yes: Tachycardia Respiratory: Yes: CTA Bilaterally Gastrointestinal: Yes: Normal Bowel Sounds ...Rectal Exam: Yes: Deferred Genitourinary: Yes: WNL Musculoskeletal: Yes: Back Pain, Muscle Pain, Muscle Weakness Extremities: Yes: WNL Edema: No Neurological: Yes: Alert, Oriented Psychiatric: Yes: Alert, Oriented Labs: CBC, BMP 03/26/19 09:40 03/27/19 05:20 INR, PTT INR 1.05 (0.83-1.09) 03/22/19 11:00 Problem List - Problems (1) Diabetes mellitus type 2 with hyperosmolarity, uncontrolled Code(s): E11.00 - TYPE 2 DIAB W HYPROSM W/O NONKET HYPRGLY-HYPROS COMA ([facility]); E11.65 - TYPE 2 DIABETES MELLITUS WITH HYPERGLYCEMIA (2) Anxiety Code(s): F41.9 - ANXIETY DISORDER, UNSPECIFIED (3) Atrial fibrillation with RVR Code(s): I48.91 - UNSPECIFIED ATRIAL FIBRILLATION (4) Atrial flutter Code(s): I48.92 - UNSPECIFIED ATRIAL FLUTTER Qualifiers: Atrial flutter type: unspecified Qualified Code(s): I48.92 - Unspecified atrial flutter (5) Chronic pain Code(s): G89.29 - OTHER CHRONIC PAIN (6) Diastolic CHF Code(s): I50.30 - UNSPECIFIED DIASTOLIC (CONGESTIVE) HEART FAILURE Qualifiers: Heart failure chronicity: chronic Qualified Code(s): I50.32 - Chronic diastolic (congestive) heart failure (7) Rhabdomyolysis Code(s): M62.82 - RHABDOMYOLYSIS Qualifiers: Rhabdomyolysis type: non-traumatic Qualified Code(s): M62.82 - Rhabdomyolysis Assessment/Plan Current Active Problems Anxiety (Acute) Atrial fibrillation with RVR (Acute) Atrial flutter (Acute) COPD (chronic obstructive pulmonary disease) (Acute) COPD exacerbation (Acute) Chronic pain (Acute) Diabetes mellitus type 2 with hyperosmolarity, uncontrolled (Acute) Diastolic CHF (Acute) Rhabdomyolysis (Acute) Abnormal Lab Results 03/27/19 03/27/19 00:00 05:20 BUN 60.1 H Creatinine 3.1 H Random Glucose 256 H Magnesium 3.1 H U Random Total Protein 44.7 H Laboratory Results - last 24 hr 03/27/19 03/27/19 03/27/19 00:00 00:00 05:20 Sodium 138 Potassium 4.9 Chloride 98 Carbon Dioxide 29 Anion Gap 11 BUN 60.1 H Creatinine 3.1 H Est GFR (CKD-EPI)AfAm 23.21 Est GFR (CKD-EPI)NonAf 20.02 POC Glucometer Random Glucose 256 H Calcium 9.3 Phosphorus 4.8 Magnesium 3.1 H Ur Random Creatinine 86.0 U Random Total Protein 44.7 H Ur Random Urea Nitrogn 510 Urine Creatinine 86.0 Protein/Creatinin Ratio 0.510 03/27/19 03/27/19 03/27/19 06:16 11:37 16:56 Sodium Potassium Chloride Carbon Dioxide Anion Gap BUN Creatinine Est GFR (CKD-EPI)AfAm Est GFR (CKD-EPI)NonAf POC Glucometer 280 145 307 Random Glucose Calcium Phosphorus Magnesium Ur Random Creatinine U Random Total Protein Ur Random Urea Nitrogn Urine Creatinine Protein/Creatinin Ratio 03/27/19 21:45 Sodium Potassium Chloride Carbon Dioxide Anion Gap BUN Creatinine Est GFR (CKD-EPI)AfAm Est GFR (CKD-EPI)NonAf POC Glucometer 325 Random Glucose Calcium Phosphorus Magnesium Ur Random Creatinine U Random Total Protein Ur Random Urea Nitrogn Urine Creatinine Protein/Creatinin Ratio plan: pain management consulted psychiatry for anxiety and dependency will benefit morphine implant pump as outpatient neurology consult
[2019-03-28 06:42] LABS: BASO % 0.6 % (0-2.0); EOS % 0.6 % (0-4.5); HEMATOCRIT 32.3 % (35.4-49); HEMOGLOBIN 10.6 GM/dL (11.7-16.9); LYMPH % 39.3 % (8-40); MCH 27.1 pg (25.7-33.7); MCHC 32.8 g/dl (32.0-35.9); MEAN CELL VOLUME 82.7 fl (80-96); MEAN PLT VOLUME 7.9 fl (7.5-11.1); MONO % 8.9 % (3.8-10.2); NEUT % 50.6 % (42.8-82.8); PLATELET COUNT 213 K/MM3 (134-434); RDW 15.5 % (11.9-15.9); WHITE BLOOD COUNT 8.6 K/mm3 (4.0-10.0)
[2019-03-28] MEDS ORDERED: INSULIN (NOVOLOG) ASPART 100 UNITS/ML 10ML VIAL ONE ×2 (06:53→17:06)
[2019-03-28] MEDS: GABAPENTIN 400 MG CAPSULE (FP) PO SCH ×3 (06:54→22:00)
[2019-03-28] MEDS: INSULIN (LEVEMIR) 100 UNITS/ML UNITS SQ SCH (06:56)
[2019-03-28] MEDS: INSULIN SLIDING SCALE (NOVOLOG) 1 VIAL SQ SCH ×4 (06:57→22:04)
[2019-03-28] MEDS: INSULIN (NOVOLOG MIX 70/30) 100 UNITS/ML MDV SQ SCH ×2 (06:57→17:12)
[2019-03-28 07:03] LABS: ALBUMIN 2.8 g/dl (3.4-5.0); BILIRUBIN,TOTAL 0.3 mg/dL (0.2-1); BLOOD UREA NITROGEN 56.6 mg/dL (7-18); CALCIUM 8.6 mg/dL (8.5-10.1); CREATININE 2.6 mg/dL (0.55-1.3); POTASSIUM 4.3 mmol/L (3.5-5.1); TOT PROT 5.6 g/dl (6.4-8.2)
[2019-03-28] MEDS: ARFORMOTEROL TARTRATE 15 MCG/2 ML VIAL NEB SCH ×2 (07:48→21:00)
[2019-03-28] MEDS ORDERED: PT OWN MED DRAWER 7, Y5N ONE (08:42)
[2019-03-28] MEDS: LIPASE/PROTEASE/AMYLASE 36,000 UNIT CAPSULE PO SCH ×3 (09:28→17:38)
[2019-03-28] MEDS: LIDOCAINE 5% TOPICAL PATCH TP SCH (09:28)
[2019-03-28] MEDS: TORSEMIDE 20 MG TABLET (FP) PO SCH (09:31)
[2019-03-28] MEDS: amLODIPine BESYLATE 10 MG TABLET (FP) PO SCH (09:31)
[2019-03-28] MEDS: ASPIRIN COATED 81 MG TABLET.EC PO SCH (09:31)
[2019-03-28] MEDS: ACETAMINOPHEN 325 MG TABLET (FP) PO SCH ×2 (09:32→22:00)
[2019-03-28] MEDS: MONTELUKAST NA 10 MG TABLET PO SCH (09:32)
[2019-03-28] MEDS: predniSONE 20 MG TABLET (UD) PO SCH (09:32)
[2019-03-28] MEDS: hydrALAZINE HCL 25 MG TABLET (FP) PO SCH ×2 (09:32→21:58)
[2019-03-28] MEDS: oxyCODONE HCL 5 MG TABLET PO SCH ×2 (09:32→22:01)
[2019-03-28] MEDS: TAMSULOSIN HCL 0.4 MG CAP PO SCH (09:32)
[2019-03-28] MEDS: PANTOPRAZOLE 40 MG TABLET (FP) PO SCH (09:33)
[2019-03-28] MEDS: APIXABAN 2.5 MG TABLET PO SCH ×2 (09:33→22:01)
[2019-03-28] MEDS: TAPENTADOL HCL 50 MG TAB.ER.12H PO SCH ×2 (09:33→21:58)
[2019-03-28] MEDS: ISOSORBIDE MONONITRATE 30 MG TAB.SR.24H (FP) PO SCH (09:33)
[2019-03-28] MEDS: FINASTERIDE 5 MG TABLET (FP) PO SCH (09:33)
[2019-03-28] MEDS: TIOTROPIUM BROMIDE 2.5 MCG (SPIRIVA) RESPIMAT INHALER IH SCH (09:34)
[2019-03-28] MEDS: POLYETHYLENE GLYCOL 3350 119 GM BTL PO SCH ×2 (09:35→22:02)
[2019-03-28] MEDS: SENNOSIDES/DOCUSATE COMBO (SENNA PLUS) TABLET (UD) PO SCH (09:35)
--- NOTE | 2019-03-28 09:57 | PN ---
Progress Note, Physician - Current Medication List Current Medications: Active Medications Acetaminophen (Tylenol -) 325 mg PO BID [facility] Last Admin: 03/28/19 09:32 Dose: 325 mg Al Hydroxide/Mg Hydroxide (Mylanta Suspension -) 30 ml PO Q6H PRN PRN Reason: DYSPEPSIA Albuterol Sulfate (Ventolin 0.083% Nebulizer Soln -) 1 amp NEB Q8H PRN PRN Reason: WHEEZING Last Admin: 03/24/19 17:51 Dose: 1 amp Amlodipine Besylate (Norvasc -) 10 mg PO DAILY [facility] Last Admin: 03/28/19 09:31 Dose: 10 mg Apixaban (Eliquis -) 2.5 mg PO BID [facility] Last Admin: 03/28/19 09:33 Dose: 2.5 mg Arformoterol Tartrate (Brovana (Restricted To Pulmonology/Resp) -) 1 amp NEB RBID [facility] Last Admin: 03/28/19 07:48 Dose: 1 amp Aspirin (Ecotrin -) 81 mg PO DAILY [facility] Last Admin: 03/28/19 09:31 Dose: 81 mg Chlorthalidone (Hygroton -) 25 mg PO DAILY [facility] Last Admin: 03/25/19 09:08 Dose: 25 mg Diazepam (Valium -) 5 mg PO Q8H PRN PRN Reason: ANXIETY Last Admin: 03/26/19 20:26 Dose: 5 mg Diltiazem HCl (Cardizem Cd -) 120 mg PO DAILY [facility] Last Admin: 03/28/19 09:31 Dose: 120 mg Finasteride (Proscar -) 5 mg PO DAILY [facility] Last Admin: 03/28/19 09:33 Dose: 5 mg Gabapentin (Neurontin -) 800 mg PO TID [facility] Last Admin: 03/28/19 06:54 Dose: 800 mg Hydralazine HCl (Apresoline -) 25 mg PO BID [facility] Last Admin: 03/28/19 09:32 Dose: 25 mg Hydromorphone HCl (Dilaudid -) 4 mg PO Q4H PRN PRN Reason: PAIN LEVEL 6-10 Last Admin: 03/28/19 09:28 Dose: 4 mg Insulin Aspart (Novolog Mix 70/30 Vial) 25 units SQ BIDAC [facility] Last Admin: 03/28/19 06:57 Dose: 25 units Insulin Aspart (Novolog Vial Sliding Scale -) 1 vial SQ ACHS [facility]; Protocol Last Admin: 03/28/19 06:57 Dose: 10 units Insulin Detemir (Levemir Vial) 50 units SQ AM [facility] Last Admin: 03/28/19 06:56 Dose: 50 units Isosorbide Mononitrate (Imdur -) 30 mg PO DAILY [facility] Last Admin: 03/28/19 09:33 Dose: 30 mg Lidocaine (Lidoderm Patch -) 1 patch TP DAILY [facility] Last Admin: 03/28/19 09:28 Dose: 1 patch Miscellaneous (Lidoderm Patch Removal) 1 each MC DAILY@2200 [facility] Last Admin: 03/27/19 21:40 Dose: 1 each Montelukast Sodium (Singulair -) 10 mg PO DAILY [facility] Last Admin: 03/28/19 09:32 Dose: 10 mg Oxycodone HCl (Roxicodone -) 10 mg PO BID [facility] Last Admin: 03/28/19 09:32 Dose: 10 mg Pancrelipase (Creon Dr 36,000 Units Capsule) 1 cap PO TIDCM [facility] Last Admin: 03/28/19 09:28 Dose: 1 cap Pantoprazole Sodium (Protonix -) 40 mg PO DAILY [facility] Last Admin: 03/28/19 09:33 Dose: 40 mg Polyethylene Glycol (Miralax (For Daily Use) -) 17 gm PO BID [facility] Last Admin: 03/28/19 09:35 Dose: 17 gm Prednisone (Deltasone -) 20 mg PO DAILY [facility] Last Admin: 03/28/19 09:32 Dose: 20 mg Rosuvastatin Calcium (Crestor -) 20 mg PO HS [facility] Last Admin: 03/27/19 21:39 Dose: 20 mg Senna/Docusate Sodium (Pericolace -) 1 tablet PO DAILY [facility] Last Admin: 03/28/19 09:35 Dose: 1 tablet Tamsulosin HCl (Flomax -) 0.4 mg PO DAILY@0830 [facility] Last Admin: 03/28/19 09:32 Dose: 0.4 mg Tapentadol (Nucynta Er -) 150 mg PO BID [facility] Last Admin: 03/28/19 09:33 Dose: 150 mg Tiotropium [place] (Spiriva Respimat) 2 puff IH DAILY [facility] Last Admin: 03/28/19 09:34 Dose: 2 puff Torsemide (Demadex -) 20 mg PO DAILY [facility] Last Admin: 03/28/19 09:31 Dose: 20 mg - Objective Vital Signs: Vital Signs Temperature 98.5 F 03/28/19 08:07 Pulse Rate 62 03/28/19 08:07 Respiratory Rate 18 03/28/19 08:11 Blood Pressure 142/64 03/28/19 08:07 O2 Sat by Pulse Oximetry (%) 90 L 03/28/19 08:11 Cardiovascular: Yes: Pulse Irregular, S1, S2 Respiratory: Yes: Regular, CTA Bilaterally Gastrointestinal: Yes: Normal Bowel Sounds, Soft Labs: CBC, BMP 03/28/19 05:20 03/28/19 05:20 INR, PTT INR 1.05 (0.83-1.09) 03/22/19 11:00 Assessment/Plan - Problems (1) Atrial fibrillation with RVR Assessment/Plan: eliquis and diltiazem 120mg HR controlled cardiology on board telemetry -cardio follow up -pt states for transfer for EP? Code(s): I48.91 - UNSPECIFIED ATRIAL FIBRILLATION (2) COPD (chronic obstructive pulmonary disease) Assessment/Plan: bronchodilators and prednisone 20mg daily Code(s): J44.9 - CHRONIC OBSTRUCTIVE PULMONARY DISEASE, UNSPECIFIED (3) BPH (benign prostatic hyperplasia) Assessment/Plan: finastertide Code(s): N40.0 - BENIGN PROSTATIC HYPERPLASIA WITHOUT LOWER URINRY TRACT SYMP (4) HTN (hypertension) Assessment/Plan: hydralazine and norvasc Code(s): I10 - ESSENTIAL (PRIMARY) HYPERTENSION (5) Hyperlipidemia Assessment/Plan: statin Code(s): E78.5 - HYPERLIPIDEMIA, UNSPECIFIED (6) Chronic pain Assessment/Plan: dilaudid oral not iv gabapentin on multiple meds pain consult Code(s): G89.29 - OTHER CHRONIC PAIN (7) Chronic pancreatitis Assessment/Plan: pancreatic enzymes Code(s): K86.1 - OTHER CHRONIC PANCREATITIS (8) Diabetes mellitus Assessment/Plan: seen by endocrine and insulin adjusted Code(s): E11.9 - TYPE 2 DIABETES MELLITUS WITHOUT COMPLICATIONS Qualifiers: Diabetes mellitus type: type 2
--- NOTE | 2019-03-28 11:27 | PN ---
Progress Note, Physician History of Present Illness: pulmonary awake,comfortable,dyspnea improving,-cp. - Current Medication List Current Medications: Active Medications Acetaminophen (Tylenol -) 325 mg PO BID [facility] Last Admin: 03/28/19 09:32 Dose: 325 mg Al Hydroxide/Mg Hydroxide (Mylanta Suspension -) 30 ml PO Q6H PRN PRN Reason: DYSPEPSIA Albuterol Sulfate (Ventolin 0.083% Nebulizer Soln -) 1 amp NEB Q8H PRN PRN Reason: WHEEZING Last Admin: 03/24/19 17:51 Dose: 1 amp Amlodipine Besylate (Norvasc -) 10 mg PO DAILY [facility] Last Admin: 03/28/19 09:31 Dose: 10 mg Apixaban (Eliquis -) 2.5 mg PO BID [facility] Last Admin: 03/28/19 09:33 Dose: 2.5 mg Arformoterol Tartrate (Brovana (Restricted To Pulmonology/Resp) -) 1 amp NEB RBID [facility] Last Admin: 03/28/19 07:48 Dose: 1 amp Aspirin (Ecotrin -) 81 mg PO DAILY [facility] Last Admin: 03/28/19 09:31 Dose: 81 mg Chlorthalidone (Hygroton -) 25 mg PO DAILY [facility] Last Admin: 03/25/19 09:08 Dose: 25 mg Diazepam (Valium -) 5 mg PO Q8H PRN PRN Reason: ANXIETY Last Admin: 03/26/19 20:26 Dose: 5 mg Diltiazem HCl (Cardizem Cd -) 120 mg PO DAILY [facility] Last Admin: 03/28/19 09:31 Dose: 120 mg Finasteride (Proscar -) 5 mg PO DAILY [facility] Last Admin: 03/28/19 09:33 Dose: 5 mg Gabapentin (Neurontin -) 800 mg PO TID [facility] Last Admin: 03/28/19 06:54 Dose: 800 mg Hydralazine HCl (Apresoline -) 25 mg PO BID [facility] Last Admin: 03/28/19 09:32 Dose: 25 mg Hydromorphone HCl (Dilaudid -) 4 mg PO Q4H PRN PRN Reason: PAIN LEVEL 6-10 Last Admin: 03/28/19 09:28 Dose: 4 mg Insulin Aspart (Novolog Mix 70/30 Vial) [address] [facility] Last Admin: 03/28/19 06:57 Dose: 25 units Insulin Aspart (Novolog Vial Sliding Scale -) 1 vial SQ ACHS [facility]; Protocol Last Admin: 03/28/19 06:57 Dose: 10 units Insulin Detemir (Levemir Vial) 50 units SQ AM [facility] Last Admin: 03/28/19 06:56 Dose: 50 units Isosorbide Mononitrate (Imdur -) 30 mg PO DAILY [facility] Last Admin: 03/28/19 09:33 Dose: 30 mg Lidocaine (Lidoderm Patch -) 1 patch TP DAILY [facility] Last Admin: 03/28/19 09:28 Dose: 1 patch Miscellaneous (Lidoderm Patch Removal) 1 each MC DAILY@2200 [facility] Last Admin: 03/27/19 21:40 Dose: 1 each Montelukast Sodium (Singulair -) 10 mg PO DAILY [facility] Last Admin: 03/28/19 09:32 Dose: 10 mg Oxycodone HCl (Roxicodone -) 10 mg PO BID [facility] Last Admin: 03/28/19 09:32 Dose: 10 mg Pancrelipase (Creon Dr 36,000 Units Capsule) 1 cap PO TIDCM [facility] Last Admin: 03/28/19 09:28 Dose: 1 cap Pantoprazole Sodium (Protonix -) 40 mg PO DAILY [facility] Last Admin: 03/28/19 09:33 Dose: 40 mg Polyethylene Glycol (Miralax (For Daily Use) -) 17 gm PO BID [facility] Last Admin: 03/28/19 09:35 Dose: 17 gm Prednisone (Deltasone -) 20 mg PO DAILY [facility] Last Admin: 03/28/19 09:32 Dose: 20 mg Rosuvastatin Calcium (Crestor -) 20 mg PO HS [facility] Last Admin: 03/27/19 21:39 Dose: 20 mg Senna/Docusate Sodium (Pericolace -) 1 tablet PO DAILY [facility] Last Admin: 03/28/19 09:35 Dose: 1 tablet Tamsulosin HCl (Flomax -) 0.4 mg PO DAILY@0830 [facility] Last Admin: 03/28/19 09:32 Dose: 0.4 mg Tapentadol (Nucynta Er -) 150 mg PO BID [facility] Last Admin: 03/28/19 09:33 Dose: 150 mg Tiotropium [place] (Spiriva Respimat) 2 puff IH DAILY [facility] Last Admin: 03/28/19 09:34 Dose: 2 puff Torsemide (Demadex -) 20 mg PO DAILY [facility] Last Admin: 03/28/19 09:31 Dose: 20 mg - Objective Vital Signs: Vital Signs Temperature 98.5 F 03/28/19 08:07 Pulse Rate 62 03/28/19 08:07 Respiratory Rate 18 03/28/19 08:11 Blood Pressure 142/64 03/28/19 08:07 O2 Sat by Pulse Oximetry (%) 90 L 03/28/19 08:11 Constitutional: Yes: Well Nourished, Calm Eyes: Yes: WNL HENT: Yes: WNL Neck: Yes: WNL Cardiovascular: Yes: Pulse Irregular, S1, S2 Respiratory: Yes: CTA Bilaterally Gastrointestinal: Yes: Normal Bowel Sounds, Soft Extremities: Yes: WNL Edema: Yes Labs: CBC, BMP 03/28/19 05:20 03/28/19 05:20 INR, PTT INR 1.05 (0.83-1.09) 03/22/19 11:00 Assessment/Plan Problem List - Problems (1) Atrial fibrillation with RVR Code(s): I48.91 - UNSPECIFIED ATRIAL FIBRILLATION (2) Chest pain Code(s): R07.9 - CHEST PAIN, UNSPECIFIED Qualifiers: Chest pain type: other chest pain Qualified Code(s): R07.89 - Other chest pain; R07.8 - Other chest pain (3) HTN (hypertension) Code(s): I10 - ESSENTIAL (PRIMARY) HYPERTENSION (4) Opiate dependence Code(s): F11.20 - OPIOID DEPENDENCE, UNCOMPLICATED (5) COPD (chronic obstructive pulmonary disease) Code(s): J44.9 - CHRONIC OBSTRUCTIVE PULMONARY DISEASE, UNSPECIFIED (6) Coronary artery disease Code(s): I25.10 - ATHSCL HEART DISEASE OF [place] CORONARY ARTERY W/O ANG PCTRS (7) Diabetes mellitus Code(s): E11.9 - TYPE 2 DIABETES MELLITUS WITHOUT COMPLICATIONS Qualifiers: Diabetes mellitus type: type 2 (8) GRACIE (obstructive sleep apnea) Code(s): G47.33 - OBSTRUCTIVE SLEEP APNEA (ADULT) (PEDIATRIC) Assessment/Plan Atrial Fibrillation with RVR improved LV Diastolic Dysfunction CAD s/p CABG COPD/asthma Opiate Dependence Obstructive Sleep Apnea s/p Tracheostomy Chronic Pancreatitis HTN Hyperlipidemia - rate/rhythm control as per cardiology - anticoagulation - prednisone - inhaled bronchodilators - O2 to keep SpO2 >90% - uncap tracheostomy while sleeping DR VANESSA
--- NOTE | 2019-03-28 11:53 | CON.PSY ---
Psychiatry Consult Chief Complaint: 63 Year old male seen for intracatble pain and opiod DEpendence. History of chronic and acute medical conditions. reports of anxiety. On no Psycyh meds at this time. Symptoms: reports: Depressed Mood, Anxiety - Previous Psychiatric Treatment Outpatient: None Inpatient: None - Previous Substance Abuse Treatment Outpatient: None Inpatient: None - Reason for Previous Treatment Reason for Previous Treatment: Anxiety or Panic Disorder - Current Medications Current Medications: Active Medications Acetaminophen (Tylenol -) 325 mg PO BID [facility] Last Admin: 03/28/19 09:32 Dose: 325 mg Al Hydroxide/Mg Hydroxide (Mylanta Suspension -) 30 ml PO Q6H PRN PRN Reason: DYSPEPSIA Albuterol Sulfate (Ventolin 0.083% Nebulizer Soln -) 1 amp NEB Q8H PRN PRN Reason: WHEEZING Last Admin: 03/24/19 17:51 Dose: 1 amp Amlodipine Besylate (Norvasc -) 10 mg PO DAILY [facility] Last Admin: 03/28/19 09:31 Dose: 10 mg Apixaban (Eliquis -) 2.5 mg PO BID [facility] Last Admin: 03/28/19 09:33 Dose: 2.5 mg Arformoterol Tartrate (Brovana (Restricted To Pulmonology/Resp) -) 1 amp NEB RBID [facility] Last Admin: 03/28/19 07:48 Dose: 1 amp Aspirin (Ecotrin -) 81 mg PO DAILY [facility] Last Admin: 03/28/19 09:31 Dose: 81 mg Chlorthalidone (Hygroton -) 25 mg PO DAILY [facility] Last Admin: 03/25/19 09:08 Dose: 25 mg Diazepam (Valium -) 5 mg PO Q8H PRN PRN Reason: ANXIETY Last Admin: 03/26/19 20:26 Dose: 5 mg Diltiazem HCl (Cardizem Cd -) 120 mg PO DAILY [facility] Last Admin: 03/28/19 09:31 Dose: 120 mg Finasteride (Proscar -) 5 mg PO DAILY [facility] Last Admin: 03/28/19 09:33 Dose: 5 mg Gabapentin (Neurontin -) 800 mg PO TID [facility] Last Admin: 03/28/19 06:54 Dose: 800 mg Hydralazine HCl (Apresoline -) 25 mg PO BID [facility] Last Admin: 03/28/19 09:32 Dose: 25 mg Hydromorphone HCl (Dilaudid -) 4 mg PO Q4H PRN PRN Reason: PAIN LEVEL 6-10 Last Admin: 03/28/19 09:28 Dose: 4 mg Insulin Aspart (Novolog Mix 70/30 Vial) 25 units SQ BIDAC [facility] Last Admin: 03/28/19 06:57 Dose: 25 units Insulin Aspart (Novolog Vial Sliding Scale -) 1 vial SQ ACHS [facility]; Protocol Last Admin: 03/28/19 06:57 Dose: 10 units Insulin Detemir (Levemir Vial) 50 units SQ AM [facility] Last Admin: 03/28/19 06:56 Dose: 50 units Isosorbide Mononitrate (Imdur -) 30 mg PO DAILY [facility] Last Admin: 03/28/19 09:33 Dose: 30 mg Lidocaine (Lidoderm Patch -) 1 patch TP DAILY [facility] Last Admin: 03/28/19 09:28 Dose: 1 patch Miscellaneous (Lidoderm Patch Removal) 1 each MC DAILY@2200 [facility] Last Admin: 03/27/19 21:40 Dose: 1 each Montelukast Sodium (Singulair -) 10 mg PO DAILY [facility] Last Admin: 03/28/19 09:32 Dose: 10 mg Oxycodone HCl (Roxicodone -) 10 mg PO BID [facility] Last Admin: 03/28/19 09:32 Dose: 10 mg Pancrelipase (Creon Dr 36,000 Units Capsule) 1 cap PO TIDCM [facility] Last Admin: 03/28/19 09:28 Dose: 1 cap Pantoprazole Sodium (Protonix -) 40 mg PO DAILY [facility] Last Admin: 03/28/19 09:33 Dose: 40 mg Polyethylene Glycol (Miralax (For Daily Use) -) 17 gm PO BID [facility] Last Admin: 03/28/19 09:35 Dose: 17 gm Prednisone (Deltasone -) 20 mg PO DAILY [facility] Last Admin: 03/28/19 09:32 Dose: 20 mg Rosuvastatin Calcium (Crestor -) 20 mg PO HS [facility] Last Admin: 03/27/19 21:39 Dose: 20 mg Senna/Docusate Sodium (Pericolace -) 1 tablet PO DAILY [facility] Last Admin: 03/28/19 09:35 Dose: 1 tablet Tamsulosin HCl (Flomax -) 0.4 mg PO DAILY@0830 [facility] Last Admin: 03/28/19 09:32 Dose: 0.4 mg Tapentadol (Nucynta Er -) 150 mg PO BID [facility] Last Admin: 03/28/19 09:33 Dose: 150 mg Tiotropium [place] (Spiriva Respimat) 2 puff IH DAILY [facility] Last Admin: 03/28/19 09:34 Dose: 2 puff Torsemide (Demadex -) 20 mg PO DAILY [facility] Last Admin: 03/28/19 09:31 Dose: 20 mg - Allergies Allergies: Allergies Allergy/AdvReac Type Severity Reaction Status Date / Time shellfish derived Allergy Severe Verified 03/22/19 10:29 Tetracyclines Allergy Severe Verified 03/22/19 10:29 metoprolol Allergy wheezing Verified 03/23/19 13:10 - Current Living Status Usual Living Arrangement: With Significant Other - Current Mental Status Evaluation Appearance: Well Groomed Attitude: Cooperative - Affect Affect: Full Range Appropriateness: Appropriate to Content - Mood Mood: Anxious - Speech/Language Expressive: Coherent - Psychomotor Activity Psychomotor Activity: Normal - Thought Process Thought Process: Intact - Thought Content Hallucinations: Absent Delusions: Absent - Self Perception Self Perception: No Impairment - Cognition Attention: Alert Orientation: Time Memory, Immediate Recall: Intact Memory, Short Term: 3/3 Memory, Remote with Promptin/3 - Concentration Serial Sevens Intact: Yes Simple Calculations Intact: Yes - Abstraction Proverb Interpretation: Intact Judgement: Intact - Insight Insight: Intact - Impulse Control Impulse Control: Minimally Impaired - Suicidal Ideation Suicidal Ideation: No - Homicidal Ideation Homicidal Ideation: No Assessment/Plan 1) would suggest Cymbalta 30 mg po od, but do not combine with Elavil.
--- NOTE | 2019-03-28 12:46 | PN ---
Progress Note, Physician Chief Complaint: Pt A&Ox3; sitting up at bedside; has questions about AF (has been reading from sources on the internet); asks if he will be seeing an molder setter.. No chest pain, palitations, dyspnea. + chronic bilateral pitting edema of the feet. History of Present Illness: The patient is a 62 year old black male, with a significant PMH of CAD s/p PA, stents x6 (most recently 12/2015), CABG, diastolic CHF (normal LVEF; mild ; moderate LVH; mild pericardial effusion on 03/30 ECHO), HTN, HLD, chronic pancreatitis, chronic back pain, SBO, incarcerated hernia s/p repair x2 (September 2017), H.Pylori, BPH, COPD, bronchial asthma, tracheostomy in place (unplugs when sleeping for GRACIE), and anxiety, who presents to the emergency department from PCP office, Dr. Elaine for new onset rapid AFIB. 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 Patient was seen and admitted here in the ED 03/01/19 -03/18/19 for similar symptoms. He also notes bilateral leg pain and took dilaudid this morning. Patient notes he was suppose to be seen at [facility] for a biopsy of his pancreas. The patient denies shortness of breath, headache and dizziness. Denies fever, chills, nausea, vomiting, diarrhea and constipation. Denies dysuria, frequency, urgency and hematuria. Allergies: hx of "wheezing" with metoprolol-->discontinuation in the past and was started on verapamil in the past. 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 - Current Medication List Current Medications: Active Medications Acetaminophen (Tylenol -) 325 mg PO BID [facility] Last Admin: 03/28/19 09:32 Dose: 325 mg Al Hydroxide/Mg Hydroxide (Mylanta Suspension -) 30 ml PO Q6H PRN PRN Reason: DYSPEPSIA Albuterol Sulfate (Ventolin 0.083% Nebulizer Soln -) 1 amp NEB Q8H PRN PRN Reason: WHEEZING Last Admin: 03/24/19 17:51 Dose: 1 amp Amlodipine Besylate (Norvasc -) 10 mg PO DAILY [facility] Last Admin: 03/28/19 09:31 Dose: 10 mg Apixaban (Eliquis -) 2.5 mg PO BID [facility] Last Admin: 03/28/19 09:33 Dose: 2.5 mg Arformoterol Tartrate (Brovana (Restricted To Pulmonology/Resp) -) 1 amp NEB RBID [facility] Last Admin: 03/28/19 07:48 Dose: 1 amp Aspirin (Ecotrin -) 81 mg PO DAILY [facility] Last Admin: 03/28/19 09:31 Dose: 81 mg Chlorthalidone (Hygroton -) 25 mg PO DAILY [facility] Last Admin: 03/25/19 09:08 Dose: 25 mg Diazepam (Valium -) 5 mg PO Q8H PRN PRN Reason: ANXIETY Last Admin: 03/26/19 20:26 Dose: 5 mg Diltiazem HCl (Cardizem Cd -) 120 mg PO DAILY [facility] Last Admin: 03/28/19 09:31 Dose: 120 mg Finasteride (Proscar -) 5 mg PO DAILY [facility] Last Admin: 03/28/19 09:33 Dose: 5 mg Gabapentin (Neurontin -) 800 mg PO TID [facility] Last Admin: 03/28/19 06:54 Dose: 800 mg Hydralazine HCl (Apresoline -) 25 mg PO BID [facility] Last Admin: 03/28/19 09:32 Dose: 25 mg Hydromorphone HCl (Dilaudid -) 4 mg PO Q4H PRN PRN Reason: PAIN LEVEL 6-10 Last Admin: 03/28/19 09:28 Dose: 4 mg Insulin Aspart (Novolog Mix 70/30 Vial) 25 units SQ BIDAC [facility] Last Admin: 03/28/19 06:57 Dose: 25 units Insulin Aspart (Novolog Vial Sliding Scale -) 1 vial SQ [facility]; Protocol Last Admin: 03/28/19 11:51 Dose: Not Given Insulin Detemir (Levemir Vial) 50 units SQ AM [facility] Last Admin: 03/28/19 06:56 Dose: 50 units Isosorbide Mononitrate (Imdur -) 30 mg PO DAILY [facility] Last Admin: 03/28/19 09:33 Dose: 30 mg Lidocaine (Lidoderm Patch -) 1 patch TP DAILY [facility] Last Admin: 03/28/19 09:28 Dose: 1 patch Miscellaneous (Lidoderm Patch Removal) 1 each MC DAILY@2200 [facility] Last Admin: 03/27/19 21:40 Dose: 1 each Montelukast Sodium (Singulair -) 10 mg PO DAILY [facility] Last Admin: 03/28/19 09:32 Dose: 10 mg Oxycodone HCl (Roxicodone -) 10 mg PO BID [facility] Last Admin: 03/28/19 09:32 Dose: 10 mg Pancrelipase (Creon Dr 36,000 Units Capsule) 1 cap PO TIDCM [facility] Last Admin: 03/28/19 09:28 Dose: 1 cap Pantoprazole Sodium (Protonix -) 40 mg PO DAILY [facility] Last Admin: 03/28/19 09:33 Dose: 40 mg Polyethylene Glycol (Miralax (For Daily Use) -) 17 gm PO BID [facility] Last Admin: 03/28/19 09:35 Dose: 17 gm Prednisone (Deltasone -) 20 mg PO DAILY [facility] Last Admin: 03/28/19 09:32 Dose: 20 mg Rosuvastatin Calcium (Crestor -) 20 mg PO HS [facility] Last Admin: 03/27/19 21:39 Dose: 20 mg Senna/Docusate Sodium (Pericolace -) 1 tablet PO DAILY [facility] Last Admin: 03/28/19 09:35 Dose: 1 tablet Tamsulosin HCl (Flomax -) 0.4 mg PO DAILY@0830 [facility] Last Admin: 03/28/19 09:32 Dose: 0.4 mg Tapentadol (Nucynta Er -) 150 mg PO BID [facility] Last Admin: 03/28/19 09:33 Dose: 150 mg Tiotropium [place] (Spiriva Respimat) 2 puff IH DAILY [facility] Last Admin: 03/28/19 09:34 Dose: 2 puff Torsemide (Demadex -) 20 mg PO DAILY [facility] Last Admin: 03/28/19 09:31 Dose: 20 mg - Objective Vital Signs: Vital Signs Temperature 98.5 F 03/28/19 08:07 Pulse Rate 62 03/28/19 08:07 Respiratory Rate 18 03/28/19 08:11 Blood Pressure 142/64 03/28/19 08:07 O2 Sat by Pulse Oximetry (%) 90 L 03/28/19 08:11 Constitutional: Yes: Calm, Obese Eyes: Yes: WNL HENT: Yes: WNL Neck: Yes: Other (tracheostomy) Cardiovascular: Yes: Pulse Irregular, S1 (varies in intensity), S2 (split) ...Rectal Exam: Yes: Deferred Genitourinary: No: Anuria Breast(s): Yes: WNL Musculoskeletal: Yes: Joint Stiffness, Muscle Weakness Extremities: Yes: Cool Edema: Yes Edema: LLE: 1+, RLE: 1+ (feet) Peripheral Pulses WNL: Yes Integumentary: Yes: Venous Stasis Changes Neurological: Yes: Alert, Oriented Psychiatric: Yes: Alert, Oriented, Other (pain med dependence) Labs: CBC, BMP 03/28/19 05:20 03/28/19 05:20 INR, PTT INR 1.05 (0.83-1.09) 03/22/19 11:00 Abnormal Lab Results 03/28/19 03/28/19 05:20 05:20 RBC 3.90 L Hgb 10.6 L Hct 32.3 L BUN 56.6 H Creatinine 2.6 H Random Glucose 240 H ALT 92 H Total Protein 5.6 L Albumin 2.8 L - ....Imaging Other: Image Reviewed (telemetry: AF with controlled VR) Problem List - Problems (1) Anxiety Code(s): F41.9 - ANXIETY DISORDER, UNSPECIFIED (2) Atrial fibrillation with RVR Assessment/Plan: On diltiazem CD for HR control On apixaban 2.5 mg bid for anticoagulation (with renal insufficiency). Can discontinue telemetry. From cardiac perspective, pt is stable and may be followed by Dr. Elaine, cleaning team member, as outpatient. Code(s): I48.91 - UNSPECIFIED ATRIAL FIBRILLATION (3) Diastolic CHF Code(s): I50.30 - UNSPECIFIED DIASTOLIC (CONGESTIVE) HEART FAILURE Qualifiers: Heart failure chronicity: chronic Qualified Code(s): I50.32 - Chronic diastolic (congestive) heart failure (4) HTN (hypertension) Assessment/Plan: On diltiazem, hydralazine and Imdur, amlodipine. F?u HR and BP serially. Code(s): I10 - ESSENTIAL (PRIMARY) HYPERTENSION (5) Hx of heart artery stent Assessment/Plan: On ASA, apixaban. F/u lipid profileserially on rosuvastatin. Code(s): Z95.5 - PRESENCE OF CORONARY ANGIOPLASTY IMPLANT AND GRAFT (6) Hyperlipidemia Assessment/Plan: On rosuvastatin 20 mg daily. F/u lipid profile on this dose (hx hypertriglyceridemia and elevated LDL), and increase if necessary. Code(s): E78.5 - HYPERLIPIDEMIA, UNSPECIFIED (7) Intractable low back pain Code(s): M54.5 - LOW BACK PAIN (8) Opiate dependence Assessment/Plan: Pt continues to ask for IV dilaudid. Saw psychiatrist. Recommend pain management evaluation. Code(s): F11.20 - OPIOID DEPENDENCE, UNCOMPLICATED (9) Renal insufficiency Code(s): N28.9 - DISORDER OF KIDNEY AND URETER, UNSPECIFIED (10) COPD (chronic obstructive pulmonary disease) Code(s): J44.9 - CHRONIC OBSTRUCTIVE PULMONARY DISEASE, UNSPECIFIED (11) Diabetes mellitus Assessment/Plan: Poor control of glucose. THe importance of diet modification, weight loss, and increase in exercise, in addition to optimizing medications was discussed again. Code(s): E11.9 - TYPE 2 DIABETES MELLITUS WITHOUT COMPLICATIONS Qualifiers: Diabetes mellitus type: type 2 (12) GRACIE (obstructive sleep apnea) Assessment/Plan: +tracheostomy for the past 18 years for GRACIE (was to have been temporary, but pt says that, after after multiple oral/nasal operatrion, and intolerance to CPAP mask, using the trach sit nightly is his method for dealing with GRACIE). Code(s): G47.33 - OBSTRUCTIVE SLEEP APNEA (ADULT) (PEDIATRIC) (13) Obesity Assessment/Plan: The central importance of diet modification, with proper food choices, portion control, and exercise as aids to losing weight was again discussed. Code(s): E66.9 - OBESITY, UNSPECIFIED (14) Tracheostomy in place Assessment/Plan: see "GRACIE" Code(s): Z98.89 - OTHER SPECIFIED POSTPROCEDURAL STATES * DO NOT USE *
--- NOTE | 2019-03-28 15:36 | PN ---
Progress Note (short form) - Note Progress Note: Renal follow up for LOVE on CKD Seen and examined at the bedside awake and alert reports that his feet are still swollen no chest pain, sob, fever, chills making urine Vital Signs Temperature 98.5 F 03/28/19 08:07 Pulse Rate 62 03/28/19 08:07 Respiratory Rate 18 03/28/19 08:11 Blood Pressure 142/64 03/28/19 08:07 O2 Sat by Pulse Oximetry (%) 90 L 03/28/19 08:11 Intake & Output 03/25/19 03/26/19 03/27/19 03/28/19 23:59 23:59 23:59 23:59 Intake Total 140 410 1930 740 Output Total 250 250 Balance 457 757 2055 740 Weight 127.913 kg 127.459 kg 128.639 kg 129.727 kg NAD awake and alert neck supple, no JVD RRR, no M/R CTA soft obese, NT/ND trace LE edema CBC, BMP 03/28/19 05:20 03/28/19 05:20 Current Medications Acetaminophen (Tylenol -) 325 mg PO BID [facility] Last Admin: 03/28/19 09:32 Dose: 325 mg Al Hydroxide/Mg Hydroxide (Mylanta Suspension -) 30 ml PO Q6H PRN PRN Reason: DYSPEPSIA Albuterol Sulfate (Ventolin 0.083% Nebulizer Soln -) 1 amp NEB Q8H PRN PRN Reason: WHEEZING Last Admin: 03/24/19 17:51 Dose: 1 amp Amlodipine Besylate (Norvasc -) 10 mg PO DAILY [facility] Last Admin: 03/28/19 09:31 Dose: 10 mg Apixaban (Eliquis -) 2.5 mg PO BID [facility] Last Admin: 03/28/19 09:33 Dose: 2.5 mg Arformoterol Tartrate (Brovana (Restricted To Pulmonology/Resp) -) 1 amp NEB RBID [facility] Last Admin: 03/28/19 07:48 Dose: 1 amp Aspirin (Ecotrin -) 81 mg PO DAILY [facility] Last Admin: 03/28/19 09:31 Dose: 81 mg Chlorthalidone (Hygroton -) 25 mg PO DAILY [facility] Last Admin: 03/25/19 09:08 Dose: 25 mg Diazepam (Valium -) 5 mg PO Q8H PRN PRN Reason: ANXIETY Last Admin: 03/26/19 20:26 Dose: 5 mg Diltiazem HCl (Cardizem Cd -) 120 mg PO DAILY [facility] Last Admin: 03/28/19 09:31 Dose: 120 mg Finasteride (Proscar -) 5 mg PO DAILY [facility] Last Admin: 03/28/19 09:33 Dose: 5 mg Gabapentin (Neurontin -) 800 mg PO TID [facility] Last Admin: 03/28/19 14:06 Dose: 800 mg Hydralazine HCl (Apresoline -) 25 mg PO BID [facility] Last Admin: 03/28/19 09:32 Dose: 25 mg Hydromorphone HCl (Dilaudid -) 4 mg PO Q4H PRN PRN Reason: PAIN LEVEL 6-10 Last Admin: 03/28/19 09:28 Dose: 4 mg Insulin Aspart (Novolog Mix 70/30 Vial) 25 units SQ BIDAC [facility] Last Admin: 03/28/19 06:57 Dose: 25 units Insulin Aspart (Novolog Vial Sliding Scale -) 1 vial SQ [facility]; Protocol Last Admin: 03/28/19 11:51 Dose: Not Given Insulin Detemir (Levemir Vial) 50 units SQ AM [facility] Last Admin: 03/28/19 06:56 Dose: 50 units Isosorbide Mononitrate (Imdur -) 30 mg PO DAILY [facility] Last Admin: 03/28/19 09:33 Dose: 30 mg Lidocaine (Lidoderm Patch -) 1 patch TP DAILY [facility] Last Admin: 03/28/19 09:28 Dose: 1 patch Miscellaneous (Lidoderm Patch Removal) 1 each MC DAILY@2200 [facility] Last Admin: 03/27/19 21:40 Dose: 1 each Montelukast Sodium (Singulair -) 10 mg PO DAILY [facility] Last Admin: 03/28/19 09:32 Dose: 10 mg Oxycodone HCl (Roxicodone -) 10 mg PO BID [facility] Last Admin: 03/28/19 09:32 Dose: 10 mg Pancrelipase (Creon Dr 36,000 Units Capsule) 1 cap PO TIDCM [facility] Last Admin: 03/28/19 12:06 Dose: 1 cap Pantoprazole Sodium (Protonix -) 40 mg PO DAILY [facility] Last Admin: 03/28/19 09:33 Dose: 40 mg Polyethylene Glycol (Miralax (For Daily Use) -) 17 gm PO BID [facility] Last Admin: 03/28/19 09:35 Dose: 17 gm Prednisone (Deltasone -) 20 mg PO DAILY [facility] Last Admin: 03/28/19 09:32 Dose: 20 mg Rosuvastatin Calcium (Crestor -) 20 mg PO HS [facility] Last Admin: 03/27/19 21:39 Dose: 20 mg Senna/Docusate Sodium (Pericolace -) 1 tablet PO DAILY [facility] Last Admin: 03/28/19 09:35 Dose: 1 tablet Tamsulosin HCl (Flomax -) 0.4 mg PO DAILY@0830 [facility] Last Admin: 03/28/19 09:32 Dose: 0.4 mg Tapentadol (Nucynta Er -) 150 mg PO BID [facility] Last Admin: 03/28/19 09:33 Dose: 150 mg Tiotropium [place] (Spiriva Respimat) 2 puff IH DAILY [facility] Last Admin: 03/28/19 09:34 Dose: 2 puff Torsemide (Demadex -) 20 mg PO DAILY [facility] Last Admin: 03/28/19 09:31 Dose: 20 mg 63 year old gentleman with history of CKD/LOVE, hypertension, DM, hyperlipidemia , GRACEI s/p trach, CAD s/p CABG, CHF with diastolic dysfunction who presented with chest pain and new onset Afib and noted to have LOVE during hospital course. 1. Acute kidney injury 2. CKD 3. CHF 4. Chest pain r/o ACS 5. New Onset Afib Renal function improving Suspected LOVE may be due to renal hypoprofusion in setting of diuretics/ACEi and new onset afibb Urine studies show low FeUrea consistent with hypoprofusion with preserved tubular function Renal US showed no obstruction Continue to hold ACEi at this time would benefit from renal artery doppler as an outpatient to r.o TERRANCE Continue Torsemide 20mg Daily Trend renal function and electrolytes Az Link DO
--- NOTE | 2019-03-28 17:32 | CON.NEURO ---
Consult Consult Specialty:: Samantha Reason for Consultation:: Pain - History of Present Illness History of Present Illness: 63-year-old right-handed -Russian man well known to me patient of mine from the office with history of chronic pain opioid dependence patient is under the care of rug touch up painter patient is on narcotics presented to the hospital from the cardiology office with the new onset of cardiac arrhythmia and chest pain. Neurology was called to evaluate the patient for neck pain and lower back pain. I evaluated the patient on telemetry. Patient describes the pain as sharp intense at time patient is currently on 800 mg 3 times a day of gabapentin. Patient was evaluated by the endocrine specialist block greaser and the psychiatrist. Psychiatrist suggested Cymbalta which I agree to. PMH 1. CAD s/p MD, stents x6 (most recently 12/2015), 2. CABG, 3. HTN, 4. HLD, 5. chronic pancreatitis, 6. chronic back pain, 7. incarcerated hernia s/p repair x2 (September 2017), 8. H.Pylori, 9. BPH, 10. 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 Planned EMG/ NCVs studies and evaluation of motor weakness in process by treating neurologist Dr. Singh) Cardio/Vascular: Yes: CAD (Last stents placed x 2 last year per patient), CHF (s /p MD several years ago; s/p stenting. mild CHF in the past.), HTN, Hyperlipdemia, MD, Pulmonary Hypertension Pulmonary: Yes: Asthma, COPD, Sleep Apnea Gastrointestinal: Yes: Constipation, Pancreatitis (? history of chronic pancreatitis with episodes of acute pancreatitis), Other (FECAL INCONTINENCE SECONDARY TO OVERFLOW followed by Dr. Abdoulaye Wu, IPMN, PANCREATITIS . HAD EPISODE OF ISCHEMIC COLITIS LAST ADMISSION) Renal/: Yes: BPH Psych: Yes: Depression Musculoskeletal: Yes: Chronic low back pain (has back stimulator), Other ( CHRONIC NECK PAIN s/p Lumbar and Cervical fusion ) Endocrine: Yes: Diabetes Mellitus (has insulin pump) - Past Surgical History Past Surgical History: Yes: Breast Biopsy, Colonoscopy, Laminectomy, Stent (1 non eluting, 5 eluting) - Alcohol/Substance Use Hx Alcohol Use: No History of Substance Use: reports: None, Prescription (opiates for chronic pain post cervical spine surgery. 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 History of Recent Travel: No Home Medications - Allergies Allergies/Adverse Reactions: Allergies Allergy/AdvReac Type Severity Reaction Status Date / Time shellfish derived Allergy Severe Verified 03/22/19 10:29 Tetracyclines Allergy Severe Verified 03/22/19 10:29 metoprolol Allergy wheezing Verified 03/23/19 13:10 - Home Medications Home Medications: Ambulatory Orders Albuterol Sulfate Inhaler - [Ventolin HFA Inhaler -] 1 - 2 inh PO Q4H PRN Arformoterol Tartrate [Brovana] 15 mcg IH ASDIR 08/18/17 Aspirin [Aspirin EC] 81 mg PO DAILY 08/18/17 Clopidogrel Bisulfate [Plavix] 75 mg PO DAILY 08/18/17 Dexlansoprazole [Dexilant] 30 mg PO DAILY 08/18/17 Insulin Pump Controller [Snap Insulin Pump Controller] 1 each MC ASDIR 08/18/17 Montelukast Sodium [Singulair] 10 mg PO DAILY 08/18/17 Tiotropium [place] [Spiriva] 1 puff IH DAILY 08/18/17 Finasteride [Proscar -] 5 mg PO DAILY tablet 09/20/17 Lipase/Protease/Amylase [Stacy Hackett 36,000 Units Capsule] 1 cap PO TIDCM capsule. 09/20/17 Tamsulosin HCl [Flomax -] 0.4 mg PO DAILY@0830 cap.er.24h 09/20/17 Gabapentin 800 mg PO TID 03/30/18 Albuterol 0.083% Nebulizer Elena [Ventolin 0.083% Nebulizer Soln -] 1 amp NEB Q8H PRN #30 amp 07/26/18 Mometasone Furoate [Asmanex 220Mcg -] 2 puff IH BID #2 inhaler 07/26/18 Mag Hydrox/Al Hydrox/Simeth [MAALOX *SUSPENSION* -] 30 ml PO Q6H PRN #1 bottle 09/27/18 Polyethylene Glycol 3350 [Miralax 119 gm Btl -] 17 gm PO BID #1 bottle 09/27/18 Sennosides/Docusate Sodium [Senna Laxative Tablet] 1 each PO DAILY #20 tablet Chlorthalidone [Hygroton -] 25 mg PO DAILY #60 tablet 10/14/18 Rosuvastatin [Crestor -] 20 mg PO HS #30 tablet 10/14/18 Amlodipine Besylate [Norvasc -] 10 mg PO DAILY 03/01/19 Arformoterol Tartrate [Brovana] 15 mcg IH DAILY 03/01/19 Budesonide/Formeterol Fumarate [SYMBICORT 160/4.5mcg -] 1 inh PO BID 03/01/19 Diazepam 5 mg PO PRN 03/01/19 HYDROmorphone [Dilaudid -] 4 mg PO Q4H 03/01/19 Lipase/Protease/Amylase [Creon Dr 36,000 Units Capsule] 1 each PO TID 03/01/19 Mesalamine [Pentasa] 500 mg PO TID 03/01/19 Ondansetron [Zofran -] 4 mg PO TID 03/01/19 Oxycodone HCl/Acetaminophen [Oxycodone-Acetaminophen 10-325] 1 each PO BID 03/01 Tapentadol ER [Nucynta ER -] 150 mg PO BID 03/01/19 Albuterol Sulfate Inhaler - [Ventolin HFA Inhaler -] 2 puff IH Q4H PRN #1 inhaler 03/16/19 Arformoterol Tartrate [Brovana -] 1 amp NEB RBID #1 pump 03/16/19 Isosorbide Mononitrate [Imdur -] 30 mg PO DAILY #30 tab.sr.24h 03/16/19 Nifedipine ER [Procardia XL -] 30 mg PO DAILY #30 tab.er.24 03/16/19 Nystatin Oral Suspension - [Nystatin Oral Susp 896245 Units/5 ML -] 500,000 units PO Q6HPO #1 bottle 03/16/19 Tiotropium [place] [Spiriva Respimat] 2 puff IH DAILY #1 inhaler 03/16/19 Torsemide [Demadex -] 40 mg PO DAILY #30 tablet 03/16/19 predniSONE [Deltasone -] 20 mg PO DAILY #30 tablet 03/16/19 hydrALAZINE HCL [Apresoline -] 25 mg PO BID 03/22/19 Apixaban [Eliquis -] 2.5 mg PO BID #60 tablet 03/28/19 Diltiazem Cd [Cardizem Cd -] 120 mg PO DAILY #30 cap.cd.24h 03/28/19 Insulin (Levemir) [Levemir Vial] 50 units SQ AM units 03/28/19 Insulin (Novolog 70/30) [Novolog Mix 70/30 Vial -] 25 units SQ BIDAC units Family Disease History - Family Disease History Family Disease History: Diabetes: Mother ( 58: diabetic complications), CA: Father ( 49: asbestosis), Respiratory: Brother (bronchial asthma, DVT), Other: Mother, Sister (BCA), Son (2, healthy), Daughter (1, healthy) Review of Systems - Review of Systems Neurological: reports: Headache, Incoordination, Numbness, Parasthesia, Unsteady Gait, Weakness Physical Exam-Neuro Vital Signs: Vital Signs Temperature 98.5 F 03/28/19 08:07 Pulse Rate 62 03/28/19 08:07 Respiratory Rate 18 03/28/19 08:11 Blood Pressure 142/64 03/28/19 08:07 O2 Sat by Pulse Oximetry (%) 90 L 03/28/19 08:11 Constitutional: Yes: Well Nourished Neck: Yes: WNL Cardiovascular: Yes: WNL Labs: CBC, BMP 03/28/19 05:20 03/28/19 05:20 INR, PTT INR 1.05 (0.83-1.09) 03/22/19 11:00 - Neuro Exam Level Of Consciousness: Yes: Oriented to Person, Oriented to Place, Oriented to Time Eyes: Yes: PERRLA Speech: WNL Dominant Hand: Right Cranial Nerves II-XII Intact: Yes Gag: Present DTR's: 0 Left Bicep, 0 Right Bicep, 0 Left Brachioradialis, 0 Right Brachioradialis Response to light touch: Normal Response to pain prick: Abnormal Response to temperature: Abnormal Response to vibration: Abnormal Motor Strength: 3/5: Left Arm, Right Arm, Left Leg, Right Leg Gait: Deferred Problem List - Problems (1) Chronic pain Assessment/Plan: chronic pain syndrome opioid dependency Cervical radiculopathy lumbar radiculopathy Myalgia Peripheral neuropathy 1. Fall precautions. 2. Physical therapy. 3. DVT prophylaxis. 4. Continue gabapentin 800 mg 3 times daily. 5. Cymbalta 30 mg by mouth daily at bedtime side effects of GI symptoms were explained to the patient. 6. Lidoderm patches on the lower back. 7. Follow-up with the endocrine specialist with tight blood sugar control. thank you very much for referring this patient for neurological consultation Code(s): G89.29 - OTHER CHRONIC PAIN
[2019-03-28] MEDS ORDERED: HYDROmorphone HCl 2 MG/ML VIAL IM ONE (19:34)
[2019-03-28] MEDS: ROSUVASTATIN CA 20 MG TABLET (FP) PO SCH (22:01)
[2019-03-28] MEDS: LIDOCAINE PATCH REMOVAL MC SCH (22:02)
[2019-03-29] MEDS: GABAPENTIN 400 MG CAPSULE (FP) PO SCH ×3 (06:01→21:41)
[2019-03-29] MEDS: INSULIN (LEVEMIR) 100 UNITS/ML UNITS SQ SCH (06:03)
[2019-03-29] MEDS: INSULIN (NOVOLOG MIX 70/30) 100 UNITS/ML MDV SQ SCH ×2 (06:04→17:41)
[2019-03-29] MEDS: INSULIN SLIDING SCALE (NOVOLOG) 1 VIAL SQ SCH ×4 (06:05→21:42)
[2019-03-29] MEDS ORDERED: PT OWN MED DRAWER 7, Y5N ONE (08:27)
[2019-03-29] MEDS: TAMSULOSIN HCL 0.4 MG CAP PO SCH (08:32)
[2019-03-29] MEDS: LIPASE/PROTEASE/AMYLASE 36,000 UNIT CAPSULE PO SCH ×3 (08:33→17:42)
[2019-03-29 08:38] LABS: BLOOD UREA NITROGEN 55.9 mg/dL (7-18); CALCIUM 9.1 mg/dL (8.5-10.1); CREATININE 2.4 mg/dL (0.55-1.3); MAGNESIUM 3.1 mg/dL (1.8-2.4); PHOSPHOROUS 4.2 mg/dL (2.5-4.9); POTASSIUM 4.4 mmol/L (3.5-5.1)
[2019-03-29] MEDS: oxyCODONE HCL 5 MG TABLET PO SCH ×2 (09:23→21:41)
[2019-03-29] MEDS: ASPIRIN COATED 81 MG TABLET.EC PO SCH (09:24)
[2019-03-29] MEDS: amLODIPine BESYLATE 10 MG TABLET (FP) PO SCH (09:24)
[2019-03-29] MEDS: ARFORMOTEROL TARTRATE 15 MCG/2 ML VIAL NEB SCH ×2 (09:24→20:51)
[2019-03-29] MEDS: MONTELUKAST NA 10 MG TABLET PO SCH (09:24)
[2019-03-29] MEDS: PANTOPRAZOLE 40 MG TABLET (FP) PO SCH (09:24)
[2019-03-29] MEDS: DULoxetine HCL 30 MG CAPSULE.DR PO SCH (09:24)
[2019-03-29] MEDS: ACETAMINOPHEN 325 MG TABLET (FP) PO SCH ×2 (09:24→21:42)
[2019-03-29] MEDS: FINASTERIDE 5 MG TABLET (FP) PO SCH (09:25)
[2019-03-29] MEDS: TORSEMIDE 20 MG TABLET (FP) PO SCH (09:25)
[2019-03-29] MEDS: hydrALAZINE HCL 25 MG TABLET (FP) PO SCH ×2 (09:25→21:42)
[2019-03-29] MEDS: TAPENTADOL HCL 50 MG TAB.ER.12H PO SCH ×2 (09:25→21:42)
[2019-03-29] MEDS: ISOSORBIDE MONONITRATE 30 MG TAB.SR.24H (FP) PO SCH (09:25)
[2019-03-29] MEDS: APIXABAN 2.5 MG TABLET PO SCH ×2 (09:25→21:41)
[2019-03-29] MEDS: predniSONE 20 MG TABLET (UD) PO SCH (09:25)
[2019-03-29] MEDS: POLYETHYLENE GLYCOL 3350 119 GM BTL PO SCH ×2 (09:26→21:46)
[2019-03-29] MEDS: SENNOSIDES/DOCUSATE COMBO (SENNA PLUS) TABLET (UD) PO SCH (09:26)
[2019-03-29] MEDS: LIDOCAINE 5% TOPICAL PATCH TP SCH (09:26)
[2019-03-29] MEDS: CHLORTHALIDONE 25 MG TABLET PO SCH (09:27)
[2019-03-29] MEDS: TIOTROPIUM BROMIDE 2.5 MCG (SPIRIVA) RESPIMAT INHALER IH SCH (10:00)
--- NOTE | 2019-03-29 11:05 | PN ---
Progress Note, Physician History of Present Illness: pulmonary alert,+ sob with exertion,-dyspnea at rest. + palpitations - Current Medication List Current Medications: Active Medications Acetaminophen (Tylenol -) 325 mg PO BID [facility] Last Admin: 03/29/19 09:24 Dose: 325 mg Al Hydroxide/Mg Hydroxide (Mylanta Suspension -) 30 ml PO Q6H PRN PRN Reason: DYSPEPSIA Albuterol Sulfate (Ventolin 0.083% Nebulizer Soln -) 1 amp NEB Q8H PRN PRN Reason: WHEEZING Last Admin: 03/24/19 17:51 Dose: 1 amp Amlodipine Besylate (Norvasc -) 10 mg PO DAILY [facility] Last Admin: 03/29/19 09:24 Dose: 10 mg Apixaban (Eliquis -) 2.5 mg PO BID [facility] Last Admin: 03/29/19 09:25 Dose: 2.5 mg Arformoterol Tartrate (Brovana (Restricted To Pulmonology/Resp) -) 1 amp NEB RBID [facility] Last Admin: 03/29/19 09:24 Dose: 1 amp Aspirin (Ecotrin -) 81 mg PO DAILY [facility] Last Admin: 03/29/19 09:24 Dose: 81 mg Chlorthalidone (Hygroton -) 25 mg PO DAILY [facility] Last Admin: 03/29/19 09:27 Dose: 25 mg Diazepam (Valium -) 5 mg PO Q8H PRN PRN Reason: ANXIETY Last Admin: 03/26/19 20:26 Dose: 5 mg Diltiazem HCl (Cardizem Cd -) 120 mg PO DAILY [facility] Last Admin: 03/29/19 09:23 Dose: 120 mg Duloxetine HCl (Cymbalta -) 30 mg PO DAILY [facility] Last Admin: 03/29/19 09:24 Dose: 30 mg Finasteride (Proscar -) 5 mg PO DAILY [facility] Last Admin: 03/29/19 09:25 Dose: 5 mg Gabapentin (Neurontin -) 800 mg PO TID [facility] Last Admin: 03/29/19 06:01 Dose: 800 mg Hydralazine HCl (Apresoline -) 25 mg PO BID [facility] Last Admin: 03/29/19 09:25 Dose: 25 mg Hydromorphone HCl (Dilaudid -) 4 mg PO Q4H PRN PRN Reason: PAIN LEVEL 6-10 Last Admin: 03/29/19 06:01 Dose: 4 mg Insulin Aspart (Novolog Mix 70/30 Vial) 25 units SQ BIDAC [facility] Last Admin: 03/29/19 06:04 Dose: 25 units Insulin Aspart (Novolog Vial Sliding Scale -) 1 vial SQ ACHS [facility]; Protocol Last Admin: 03/29/19 06:05 Dose: 14 units Insulin Detemir (Levemir Vial) 50 units SQ AM [facility] Last Admin: 03/29/19 06:03 Dose: 50 units Isosorbide Mononitrate (Imdur -) 30 mg PO DAILY [facility] Last Admin: 03/29/19 09:25 Dose: 30 mg Lidocaine (Lidoderm Patch -) 1 patch TP DAILY [facility] Last Admin: 03/29/19 09:26 Dose: 1 patch Miscellaneous (Lidoderm Patch Removal) 1 each MC DAILY@2200 [facility] Last Admin: 03/28/19 22:02 Dose: 1 each Montelukast Sodium (Singulair -) 10 mg PO DAILY [facility] Last Admin: 03/29/19 09:24 Dose: 10 mg Oxycodone HCl (Roxicodone -) 10 mg PO BID [facility] Last Admin: 03/29/19 09:23 Dose: 10 mg Pancrelipase (Creon Dr 36,000 Units Capsule) 1 cap PO TIDCM [facility] Last Admin: 03/29/19 08:33 Dose: 1 cap Pantoprazole Sodium (Protonix -) 40 mg PO DAILY [facility] Last Admin: 03/29/19 09:24 Dose: 40 mg Polyethylene Glycol (Miralax (For Daily Use) -) 17 gm PO BID [facility] Last Admin: 03/29/19 09:26 Dose: 17 gm Prednisone (Deltasone -) 20 mg PO DAILY [facility] Last Admin: 03/29/19 09:25 Dose: 20 mg Rosuvastatin Calcium (Crestor -) 20 mg PO HS [facility] Last Admin: 03/28/19 22:01 Dose: 20 mg Senna/Docusate Sodium (Pericolace -) 1 tablet PO DAILY [facility] Last Admin: 03/29/19 09:26 Dose: 1 tablet Tamsulosin HCl (Flomax -) 0.4 mg PO DAILY@0830 [facility] Last Admin: 03/29/19 08:32 Dose: 0.4 mg Tapentadol (Nucynta Er -) 150 mg PO BID [facility] Last Admin: 03/29/19 09:25 Dose: 150 mg Tiotropium [place] (Spiriva Respimat) 2 puff IH DAILY [facility] Last Admin: 03/28/19 09:34 Dose: 2 puff Torsemide (Demadex -) 20 mg PO DAILY [facility] Last Admin: 03/29/19 09:25 Dose: 20 mg - Objective Vital Signs: Vital Signs Temperature 98.4 F 03/29/19 01:52 Pulse Rate 64 03/29/19 01:52 Respiratory Rate 18 03/29/19 01:52 Blood Pressure 132/78 03/29/19 01:52 O2 Sat by Pulse Oximetry (%) 99 03/28/19 21:00 Constitutional: Yes: Calm, Obese Eyes: Yes: WNL HENT: Yes: WNL Neck: Yes: WNL Cardiovascular: Yes: Pulse Irregular, S1, S2 Respiratory: Yes: Diminished Gastrointestinal: Yes: Normal Bowel Sounds, Soft Extremities: Yes: WNL Edema: Yes Labs: CBC, BMP 03/28/19 05:20 03/29/19 05:39 INR, PTT INR 1.05 (0.83-1.09) 03/22/19 11:00 Assessment/Plan Problem List - Problems (1) Atrial fibrillation with RVR Code(s): I48.91 - UNSPECIFIED ATRIAL FIBRILLATION (2) Chest pain Code(s): R07.9 - CHEST PAIN, UNSPECIFIED Qualifiers: Chest pain type: other chest pain Qualified Code(s): R07.89 - Other chest pain; R07.8 - Other chest pain (3) HTN (hypertension) Code(s): I10 - ESSENTIAL (PRIMARY) HYPERTENSION (4) Opiate dependence Code(s): F11.20 - OPIOID DEPENDENCE, UNCOMPLICATED (5) COPD (chronic obstructive pulmonary disease) Code(s): J44.9 - CHRONIC OBSTRUCTIVE PULMONARY DISEASE, UNSPECIFIED (6) Coronary artery disease Code(s): I25.10 - ATHSCL HEART DISEASE OF [place] CORONARY ARTERY W/O ANG PCTRS (7) Diabetes mellitus Code(s): E11.9 - TYPE 2 DIABETES MELLITUS WITHOUT COMPLICATIONS Qualifiers: Diabetes mellitus type: type 2 (8) GRACIE (obstructive sleep apnea) Code(s): G47.33 - OBSTRUCTIVE SLEEP APNEA (ADULT) (PEDIATRIC) Assessment/Plan Atrial Fibrillation with RVR improved LV Diastolic Dysfunction CAD s/p CABG COPD/asthma Opiate Dependence Obstructive Sleep Apnea s/p Tracheostomy Chronic Pancreatitis HTN Hyperlipidemia - rate/rhythm control as per cardiology - anticoagulation - prednisone taper - inhaled bronchodilators - O2 to keep SpO2 >90% - uncap tracheostomy while sleeping - diuretics DR VANESSA
--- NOTE | 2019-03-29 11:06 | DS ---
Physical Examination Vital Signs: Vital Signs Temperature 98.4 F 03/29/19 01:52 Pulse Rate 64 03/29/19 01:52 Respiratory Rate 18 03/29/19 01:52 Blood Pressure 132/78 03/29/19 01:52 O2 Sat by Pulse Oximetry (%) 99 03/28/19 21:00 Cardiovascular: Yes: S1, S2 Respiratory: Yes: Regular, CTA Bilaterally Gastrointestinal: Yes: Normal Bowel Sounds, Soft Labs: CBC, BMP 03/28/19 05:20 03/29/19 05:39 Discharge Summary Reason For Visit: ATRIAL FLUTTER Current Active Problems Anxiety (Acute) Atrial fibrillation with RVR (Acute) Atrial flutter (Acute) COPD (chronic obstructive pulmonary disease) (Acute) COPD exacerbation (Acute) Chronic pain (Acute) Diabetes mellitus type 2 with hyperosmolarity, uncontrolled (Acute) Diastolic CHF (Acute) Rhabdomyolysis (Acute) Hospital Course: - Problems (1) Atrial fibrillation with RVR Assessment/Plan: eliquis and diltiazem 120mg HR controlled cardiology on board telemetry -cardio follow up -noted no further work up at this time--follow up with dr jordan Code(s): I48.91 - UNSPECIFIED ATRIAL FIBRILLATION (2) COPD (chronic obstructive pulmonary disease) Assessment/Plan: bronchodilators and prednisone 20mg daily Code(s): J44.9 - CHRONIC OBSTRUCTIVE PULMONARY DISEASE, UNSPECIFIED (3) BPH (benign prostatic hyperplasia) Assessment/Plan: finastertide Code(s): N40.0 - BENIGN PROSTATIC HYPERPLASIA WITHOUT LOWER URINRY TRACT SYMP (4) HTN (hypertension) Assessment/Plan: hydralazine and norvasc Code(s): I10 - ESSENTIAL (PRIMARY) HYPERTENSION (5) Hyperlipidemia Assessment/Plan: statin Code(s): E78.5 - HYPERLIPIDEMIA, UNSPECIFIED (6) Chronic pain Assessment/Plan: dilaudid oral not iv gabapentin on multiple meds pain consult Code(s): G89.29 - OTHER CHRONIC PAIN (7) Chronic pancreatitis Assessment/Plan: pancreatic enzymes Code(s): K86.1 - OTHER CHRONIC PANCREATITIS (8) Diabetes mellitus Assessment/Plan: seen by endocrine and insulin adjusted Code(s): E11.9 - TYPE 2 DIABETES MELLITUS WITHOUT COMPLICATIONS Qualifiers: Diabetes mellitus type: type 2 Condition: Fair - Instructions Diet, Activity, Other Instructions: Resume previous activities Re-adjust Implanted insulin pump BGM before meals and at bedtime Referrals: Mynor Lim MD [Staff Physician] - Bola Jordan MD [Non Staff, Medical] - 1 Week Markus Knox MD [Primary Care Provider] - Disposition: HOME - Home Medications Comprehensive Discharge Medication List: Ambulatory Orders Albuterol Sulfate Inhaler - [Ventolin HFA Inhaler -] 1 - 2 inh PO Q4H PRN Arformoterol Tartrate [Brovana] 15 mcg IH ASDIR 08/18/17 Aspirin [Aspirin EC] 81 mg PO DAILY 08/18/17 Clopidogrel Bisulfate [Plavix] 75 mg PO DAILY 08/18/17 Dexlansoprazole [Dexilant] 30 mg PO DAILY 08/18/17 Insulin Pump Controller [Snap Insulin Pump Controller] 1 each MC ASDIR 08/18/17 Montelukast Sodium [Singulair] 10 mg PO DAILY 08/18/17 Tiotropium [place] [Spiriva] 1 puff IH DAILY 08/18/17 Finasteride [Proscar -] 5 mg PO DAILY tablet 09/20/17 Lipase/Protease/Amylase [Stacy Hackett 36,000 Units Capsule] 1 cap PO TIDCM capsule. 09/20/17 Tamsulosin HCl [Flomax -] 0.4 mg PO DAILY@0830 cap.er.24h 09/20/17 Gabapentin 800 mg PO TID 03/30/18 Albuterol 0.083% Nebulizer Elena [Ventolin 0.083% Nebulizer Soln -] 1 amp NEB Q8H PRN #30 amp 07/26/18 Mometasone Furoate [Asmanex 220Mcg -] 2 puff IH BID #2 inhaler 07/26/18 Mag Hydrox/Al Hydrox/Simeth [MAALOX *SUSPENSION* -] 30 ml PO Q6H PRN #1 bottle 09/27/18 Polyethylene Glycol 3350 [Miralax 119 gm Btl -] 17 gm PO BID #1 bottle 09/27/18 Sennosides/Docusate Sodium [Senna Laxative Tablet] 1 each PO DAILY #20 tablet Chlorthalidone [Hygroton -] 25 mg PO DAILY #60 tablet 10/14/18 Rosuvastatin [Crestor -] 20 mg PO HS #30 tablet 10/14/18 Amlodipine Besylate [Norvasc -] 10 mg PO DAILY 03/01/19 Arformoterol Tartrate [Brovana] 15 mcg IH DAILY 03/01/19 Budesonide/Formeterol Fumarate [SYMBICORT 160/4.5mcg -] 1 inh PO BID 03/01/19 Diazepam 5 mg PO PRN 03/01/19 HYDROmorphone [Dilaudid -] 4 mg PO Q4H 03/01/19 Lipase/Protease/Amylase [Creon Dr 36,000 Units Capsule] 1 each PO TID 03/01/19 Mesalamine [Pentasa] 500 mg PO TID 03/01/19 Ondansetron [Zofran -] 4 mg PO TID 03/01/19 Oxycodone HCl/Acetaminophen [Oxycodone-Acetaminophen 10-325] 1 each PO BID 03/01 Tapentadol ER [Nucynta ER -] 150 mg PO BID 03/01/19 Albuterol Sulfate Inhaler - [Ventolin HFA Inhaler -] 2 puff IH Q4H PRN #1 inhaler 03/16/19 Arformoterol Tartrate [Brovana -] 1 amp NEB RBID #1 pump 03/16/19 Isosorbide Mononitrate [Imdur -] 30 mg PO DAILY #30 tab.sr.24h 03/16/19 Nifedipine ER [Procardia XL -] 30 mg PO DAILY #30 tab.er.24 03/16/19 Nystatin Oral Suspension - [Nystatin Oral Susp 309792 Units/5 ML -] 500,000 units PO Q6HPO #1 bottle 03/16/19 Tiotropium [place] [Spiriva Respimat] 2 puff IH DAILY #1 inhaler 03/16/19 Torsemide [Demadex -] 40 mg PO DAILY #30 tablet 03/16/19 predniSONE [Deltasone -] 20 mg PO DAILY #30 tablet 03/16/19 hydrALAZINE HCL [Apresoline -] 25 mg PO BID 03/22/19 Apixaban [Eliquis -] 2.5 mg PO BID #60 tablet 03/28/19 Diltiazem Cd [Cardizem Cd -] 120 mg PO DAILY #30 cap.cd.24h 03/28/19 Insulin (Levemir) [Levemir Vial] 50 units SQ AM units 03/28/19 Insulin (Novolog 70/30) [Novolog Mix 70/30 Vial -] 25 units SQ BIDAC units
--- NOTE | 2019-03-29 13:17 | PN ---
Progress Note, Physician History of Present Illness: The patient is a 62 year old male, with a significant PMH of CAD s/p MD, stents x6 (most recently 12/2015), CABG, HTN, HLD, chronic pancreatitis, chronic back pain, SBO, incarcerated hernia s/p repair x2 (September 2017), H.Pylori, BPH, COPD, bronchial asthma, tracheostomy in place (unplugs when sleeping for GRACIE), and anxiety, who presents to the emergency department from PCP office, Dr. Elaine for new onset rapid AFIB. 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 Patient was seen and admitted here in the ED 03/01/19 -03/18/19 for similar symptoms. He also notes bilateral leg pain and took dilaudid this morning. Patient notes he was suppose to be seen at [facility] for a biopsy of his pancreas. The patient denies shortness of breath, headache and dizziness. Denies fever, chills, nausea, vomiting, diarrhea and constipation. Denies dysuria, frequency, urgency and hematuria. Allergies: A Primer Charger: Bola Haskins - Current Medication List Current Medications: Active Medications Acetaminophen (Tylenol -) 325 mg PO BID [facility] Last Admin: 03/29/19 09:24 Dose: 325 mg Al Hydroxide/Mg Hydroxide (Mylanta Suspension -) 30 ml PO Q6H PRN PRN Reason: DYSPEPSIA Albuterol Sulfate (Ventolin 0.083% Nebulizer Soln -) 1 amp NEB Q8H PRN PRN Reason: WHEEZING Last Admin: 03/24/19 17:51 Dose: 1 amp Amlodipine Besylate (Norvasc -) 10 mg PO DAILY [facility] Last Admin: 03/29/19 09:24 Dose: 10 mg Apixaban (Eliquis -) 2.5 mg PO BID [facility] Last Admin: 03/29/19 09:25 Dose: 2.5 mg Arformoterol Tartrate (Brovana (Restricted To Pulmonology/Resp) -) 1 amp NEB RBID [facility] Last Admin: 03/29/19 09:24 Dose: 1 amp Aspirin (Ecotrin -) 81 mg PO DAILY [facility] Last Admin: 03/29/19 09:24 Dose: 81 mg Chlorthalidone (Hygroton -) 25 mg PO DAILY [facility] Last Admin: 03/29/19 09:27 Dose: 25 mg Diazepam (Valium -) 5 mg PO Q8H PRN PRN Reason: ANXIETY Last Admin: 03/26/19 20:26 Dose: 5 mg Diltiazem HCl (Cardizem Cd -) 120 mg PO DAILY [facility] Last Admin: 03/29/19 09:23 Dose: 120 mg Duloxetine HCl (Cymbalta -) 30 mg PO DAILY [facility] Last Admin: 03/29/19 09:24 Dose: 30 mg Finasteride (Proscar -) 5 mg PO DAILY [facility] Last Admin: 03/29/19 09:25 Dose: 5 mg Gabapentin (Neurontin -) 800 mg PO TID [facility] Last Admin: 03/29/19 06:01 Dose: 800 mg Hydralazine HCl (Apresoline -) 25 mg PO BID [facility] Last Admin: 03/29/19 09:25 Dose: 25 mg Hydromorphone HCl (Dilaudid -) 4 mg PO Q4H PRN PRN Reason: PAIN LEVEL 6-10 Last Admin: 03/29/19 06:01 Dose: 4 mg Insulin Aspart (Novolog Mix 70/30 Vial) 25 units SQ BIDAC [facility] Last Admin: 03/29/19 06:04 Dose: 25 units Insulin Aspart (Novolog Vial Sliding Scale -) 1 vial SQ [facility]; Protocol Last Admin: 03/29/19 12:40 Dose: 10 units Insulin Detemir (Levemir Vial) 50 units SQ AM [facility] Last Admin: 03/29/19 06:03 Dose: 50 units Isosorbide Mononitrate (Imdur -) 30 mg PO DAILY [facility] Last Admin: 03/29/19 09:25 Dose: 30 mg Lidocaine (Lidoderm Patch -) 1 patch TP DAILY [facility] Last Admin: 03/29/19 09:26 Dose: 1 patch Miscellaneous (Lidoderm Patch Removal) 1 each MC DAILY@2200 [facility] Last Admin: 03/28/19 22:02 Dose: 1 each Montelukast Sodium (Singulair -) 10 mg PO DAILY [facility] Last Admin: 03/29/19 09:24 Dose: 10 mg Oxycodone HCl (Roxicodone -) 10 mg PO BID [facility] Last Admin: 03/29/19 09:23 Dose: 10 mg Pancrelipase (Creon Dr 36,000 Units Capsule) 1 cap PO TIDCM [facility] Last Admin: 03/29/19 12:40 Dose: 1 cap Pantoprazole Sodium (Protonix -) 40 mg PO DAILY [facility] Last Admin: 03/29/19 09:24 Dose: 40 mg Polyethylene Glycol (Miralax (For Daily Use) -) 17 gm PO BID [facility] Last Admin: 03/29/19 09:26 Dose: 17 gm Prednisone (Deltasone -) 20 mg PO DAILY [facility] Last Admin: 03/29/19 09:25 Dose: 20 mg Rosuvastatin Calcium (Crestor -) 20 mg PO HS [facility] Last Admin: 03/28/19 22:01 Dose: 20 mg Senna/Docusate Sodium (Pericolace -) 1 tablet PO DAILY [facility] Last Admin: 03/29/19 09:26 Dose: 1 tablet Tamsulosin HCl (Flomax -) 0.4 mg PO DAILY@0830 [facility] Last Admin: 03/29/19 08:32 Dose: 0.4 mg Tapentadol (Nucynta Er -) 150 mg PO BID [facility] Last Admin: 03/29/19 09:25 Dose: 150 mg Tiotropium [place] (Spiriva Respimat) 2 puff IH DAILY [facility] Last Admin: 03/29/19 10:00 Dose: 2 puff Torsemide (Demadex -) 20 mg PO DAILY [facility] Last Admin: 03/29/19 09:25 Dose: 20 mg - Objective Vital Signs: Vital Signs Temperature 98.1 F 03/29/19 10:00 Pulse Rate 98 H 03/29/19 10:00 Respiratory Rate 22 H 03/29/19 10:00 Blood Pressure 180/99 H 03/29/19 10:00 O2 Sat by Pulse Oximetry (%) 99 03/28/19 21:00 Eyes: Yes: WNL, Conjunctiva Clear, EOM Intact HENT: Yes: WNL, Atraumatic, Normocephalic Neck: Yes: WNL, Supple, Trachea Midline Cardiovascular: Yes: Pulse Irregular, S1, S2 Respiratory: Yes: WNL, Regular, CTA Bilaterally Gastrointestinal: Yes: WNL, Normal Bowel Sounds Genitourinary: Yes: WNL Musculoskeletal: Yes: WNL Extremities: Yes: WNL Edema: No Integumentary: Yes: WNL Neurological: Yes: WNL, Alert, Oriented ...Motor Strength: WNL Psychiatric: Yes: WNL Labs: CBC, BMP 03/28/19 05:20 03/29/19 05:39 INR, PTT INR 1.05 (0.83-1.09) 03/22/19 11:00 Problem List - Problems (1) Anxiety Code(s): F41.9 - ANXIETY DISORDER, UNSPECIFIED (2) Atrial flutter Code(s): I48.92 - UNSPECIFIED ATRIAL FLUTTER Qualifiers: Atrial flutter type: unspecified Qualified Code(s): I48.92 - Unspecified atrial flutter (3) COPD exacerbation Code(s): J44.1 - CHRONIC OBSTRUCTIVE PULMONARY DISEASE W (ACUTE) EXACERBATION (4) Diastolic CHF Code(s): I50.30 - UNSPECIFIED DIASTOLIC (CONGESTIVE) HEART FAILURE Qualifiers: Heart failure chronicity: chronic Qualified Code(s): I50.32 - Chronic diastolic (congestive) heart failure (5) Rhabdomyolysis Code(s): M62.82 - RHABDOMYOLYSIS Qualifiers: Rhabdomyolysis type: non-traumatic Qualified Code(s): M62.82 - Rhabdomyolysis (6) LOVE (acute kidney injury) Code(s): N17.9 - ACUTE KIDNEY FAILURE, UNSPECIFIED (7) Abdominal pain Code(s): R10.9 - UNSPECIFIED ABDOMINAL PAIN (8) Abdominal pain in male Code(s): R10.9 - UNSPECIFIED ABDOMINAL PAIN (9) Atypical chest pain Code(s): R07.89 - OTHER CHEST PAIN (10) BMI 39.0-39.9,adult Code(s): Z68.39 - BODY MASS INDEX (BMI) 39.0-39.9, ADULT (11) BPH (benign prostatic hyperplasia) Code(s): N40.0 - BENIGN PROSTATIC HYPERPLASIA WITHOUT LOWER URINRY TRACT SYMP (12) Chest pain Code(s): R07.9 - CHEST PAIN, UNSPECIFIED Qualifiers: Chest pain type: other chest pain Qualified Code(s): R07.89 - Other chest pain; R07.8 - Other chest pain (13) Chronic abdominal pain Code(s): R10.9 - UNSPECIFIED ABDOMINAL PAIN; G89.29 - OTHER CHRONIC PAIN (14) Chronic pancreatitis Code(s): K86.1 - OTHER CHRONIC PANCREATITIS (15) Constipation Code(s): K59.00 - CONSTIPATION, UNSPECIFIED Qualifiers: Constipation type: unspecified constipation type Qualified Code(s): K59.00 - Constipation, unspecified (16) Elevated LFTs Code(s): R94.5 - ABNORMAL RESULTS OF LIVER FUNCTION STUDIES (17) HTN (hypertension) Code(s): I10 - ESSENTIAL (PRIMARY) HYPERTENSION (18) Hx of heart artery stent Code(s): Z95.5 - PRESENCE OF CORONARY ANGIOPLASTY IMPLANT AND GRAFT (19) Hyperglycemia Code(s): R73.9 - HYPERGLYCEMIA, UNSPECIFIED (20) Hyperkalemia Code(s): E87.5 - HYPERKALEMIA (21) Hyperlipidemia Code(s): E78.5 - HYPERLIPIDEMIA, UNSPECIFIED (22) Intractable low back pain Code(s): M54.5 - LOW BACK PAIN (23) Leg edema Code(s): R60.0 - LOCALIZED EDEMA (24) Opiate dependence Code(s): F11.20 - OPIOID DEPENDENCE, UNCOMPLICATED (25) Renal insufficiency Code(s): N28.9 - DISORDER OF KIDNEY AND URETER, UNSPECIFIED (26) Type 2 diabetes mellitus with hyperosmolarity without nonketotic hyperglycemic-hyperosmolar coma ([facility]) Code(s): E11.00 - TYPE 2 DIAB W HYPROSM W/O NONKET HYPRGLY-HYPROS COMA ([facility]) (27) ASHD (arteriosclerotic heart disease) Code(s): I25.10 - ATHSCL HEART DISEASE OF [place] CORONARY ARTERY W/O ANG PCTRS (28) COPD (chronic obstructive pulmonary disease) Code(s): J44.9 - CHRONIC OBSTRUCTIVE PULMONARY DISEASE, UNSPECIFIED (29) Coronary artery disease Code(s): I25.10 - ATHSCL HEART DISEASE OF [place] CORONARY ARTERY W/O ANG PCTRS (30) Diabetes mellitus Code(s): E11.9 - TYPE 2 DIABETES MELLITUS WITHOUT COMPLICATIONS Qualifiers: Diabetes mellitus type: type 2 (31) GRACIE (obstructive sleep apnea) Code(s): G47.33 - OBSTRUCTIVE SLEEP APNEA (ADULT) (PEDIATRIC) (32) Obesity Code(s): E66.9 - OBESITY, UNSPECIFIED (33) Tracheostomy in place Code(s): Z98.89 - OTHER SPECIFIED POSTPROCEDURAL STATES * DO NOT USE * (34) Asthma Code(s): J45.909 - UNSPECIFIED ASTHMA, UNCOMPLICATED Qualifiers: Asthma severity: unspecified severity (35) COPD exacerbation Code(s): J44.1 - CHRONIC OBSTRUCTIVE PULMONARY DISEASE W (ACUTE) EXACERBATION Assessment/Plan - Problems (1) Anxiety Code(s): F41.9 - ANXIETY DISORDER, UNSPECIFIED (2) Atrial fibrillation with RVR Assessment/Plan: On diltiazem CD for HR control On apixaban 2.5 mg bid for anticoagulation (with renal insufficiency). Can discontinue telemetry. From cardiac perspective, pt is stable and may be followed by Dr. 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 Code(s): I48.91 - UNSPECIFIED ATRIAL FIBRILLATION (3) Diastolic CHF Code(s): I50.30 - UNSPECIFIED DIASTOLIC (CONGESTIVE) HEART FAILURE Qualifiers: Heart failure chronicity: chronic Qualified Code(s): I50.32 - Chronic diastolic (congestive) heart failure (4) HTN (hypertension) Assessment/Plan: On diltiazem, hydralazine and Imdur, amlodipine. F?u HR and BP serially. Code(s): I10 - ESSENTIAL (PRIMARY) HYPERTENSION (5) Hx of heart artery stent Assessment/Plan: On ASA, apixaban. F/u lipid profileserially on rosuvastatin. Code(s): Z95.5 - PRESENCE OF CORONARY ANGIOPLASTY IMPLANT AND GRAFT (6) Hyperlipidemia Assessment/Plan: On rosuvastatin 20 mg daily. F/u lipid profile on this dose (hx hypertriglyceridemia and elevated LDL), and increase if necessary. Code(s): E78.5 - HYPERLIPIDEMIA, UNSPECIFIED (7) Intractable low back pain Code(s): M54.5 - LOW BACK PAIN (8) Opiate dependence Assessment/Plan: Pt continues to ask for IV dilaudid. Saw psychiatrist. Recommend pain management evaluation. Code(s): F11.20 - OPIOID DEPENDENCE, UNCOMPLICATED (9) Renal insufficiency Code(s): N28.9 - DISORDER OF KIDNEY AND URETER, UNSPECIFIED (10) COPD (chronic obstructive pulmonary disease) Code(s): J44.9 - CHRONIC OBSTRUCTIVE PULMONARY DISEASE, UNSPECIFIED (11) Diabetes mellitus Assessment/Plan: Poor control of glucose. THe importance of diet modification, weight loss, and increase in exercise, in addition to optimizing medications was discussed again. Code(s): E11.9 - TYPE 2 DIABETES MELLITUS WITHOUT COMPLICATIONS Qualifiers: Diabetes mellitus type: type 2 (12) GRACIE (obstructive sleep apnea) Assessment/Plan: +tracheostomy for the past 18 years for GRACIE (was to have been temporary, but pt says that, after after multiple oral/nasal operatrion, and intolerance to CPAP mask, using the trach sit nightly is his method for dealing with GRACIE). Code(s): G47.33 - OBSTRUCTIVE SLEEP APNEA (ADULT) (PEDIATRIC) (13) Obesity Assessment/Plan: The central importance of diet modification, with proper food choices, portion control, and exercise as aids to losing weight was again discussed. Code(s): E66.9 - OBESITY, UNSPECIFIED (14) Tracheostomy in place Assessment/Plan: see "GRACIE" Code(s): Z98.89 - OTHER SPECIFIED POSTPROCEDURAL STATES * DO NOT USE *
--- NOTE | 2019-03-29 14:57 | PN ---
Progress Note (short form) - Note Progress Note: Renal follow up for LOVE on CKD Seen and examined at the bedside awake and alert offers no acute complaints no chest pain, fever, chills, N/V/D making urine Vital Signs Temperature 98.1 F 03/29/19 10:00 Pulse Rate 98 H 03/29/19 10:00 Respiratory Rate 22 H 03/29/19 10:00 Blood Pressure 180/99 H 03/29/19 10:00 O2 Sat by Pulse Oximetry (%) 98 03/29/19 09:00 Intake & Output 03/26/19 03/27/19 03/28/19 03/29/19 23:59 23:59 23:59 23:59 Intake Total 390 1550 990 520 Output Total 250 250 300 Balance 140 1300 990 220 Weight 127.459 kg 128.639 kg 129.727 kg 128.548 kg NAD awake and alert neck supple, no JVD RRR, no M/R CTA soft obese, NT/ND trace LE edema CBC, BMP 03/28/19 05:20 03/29/19 05:39 Current Medications Acetaminophen (Tylenol -) 325 mg PO BID [facility] Last Admin: 03/29/19 09:24 Dose: 325 mg Al Hydroxide/Mg Hydroxide (Mylanta Suspension -) 30 ml PO Q6H PRN PRN Reason: DYSPEPSIA Albuterol Sulfate (Ventolin 0.083% Nebulizer Soln -) 1 amp NEB Q8H PRN PRN Reason: WHEEZING Last Admin: 03/24/19 17:51 Dose: 1 amp Amlodipine Besylate (Norvasc -) 10 mg PO DAILY [facility] Last Admin: 03/29/19 09:24 Dose: 10 mg Apixaban (Eliquis -) 2.5 mg PO BID [facility] Last Admin: 03/29/19 09:25 Dose: 2.5 mg Arformoterol Tartrate (Brovana (Restricted To Pulmonology/Resp) -) 1 amp NEB RBID [facility] Last Admin: 03/29/19 09:24 Dose: 1 amp Aspirin (Ecotrin -) 81 mg PO DAILY [facility] Last Admin: 03/29/19 09:24 Dose: 81 mg Chlorthalidone (Hygroton -) 25 mg PO DAILY [facility] Last Admin: 03/29/19 09:27 Dose: 25 mg Diazepam (Valium -) 5 mg PO Q8H PRN PRN Reason: ANXIETY Last Admin: 03/26/19 20:26 Dose: 5 mg Diltiazem HCl (Cardizem Cd -) 120 mg PO DAILY [facility] Last Admin: 03/29/19 09:23 Dose: 120 mg Duloxetine HCl (Cymbalta -) 30 mg PO DAILY [facility] Last Admin: 03/29/19 09:24 Dose: 30 mg Finasteride (Proscar -) 5 mg PO DAILY [facility] Last Admin: 03/29/19 09:25 Dose: 5 mg Gabapentin (Neurontin -) 800 mg PO TID [facility] Last Admin: 03/29/19 14:42 Dose: 800 mg Hydralazine HCl (Apresoline -) 25 mg PO BID [facility] Last Admin: 03/29/19 09:25 Dose: 25 mg Hydromorphone HCl (Dilaudid -) 4 mg PO Q4H PRN PRN Reason: PAIN LEVEL 6-10 Last Admin: 03/29/19 06:01 Dose: 4 mg Insulin Aspart (Novolog Mix 70/30 Vial) 25 units SQ BIDAC [facility] Last Admin: 03/29/19 06:04 Dose: 25 units Insulin Aspart (Novolog Vial Sliding Scale -) [address] [facility]; Protocol Last Admin: 03/29/19 12:40 Dose: 10 units Insulin Detemir (Levemir Vial) 50 units SQ AM [facility] Last Admin: 03/29/19 06:03 Dose: 50 units Isosorbide Mononitrate (Imdur -) 30 mg PO DAILY [facility] Last Admin: 03/29/19 09:25 Dose: 30 mg Lidocaine (Lidoderm Patch -) 1 patch TP DAILY [facility] Last Admin: 03/29/19 09:26 Dose: 1 patch Miscellaneous (Lidoderm Patch Removal) 1 each MC DAILY@2200 [facility] Last Admin: 03/28/19 22:02 Dose: 1 each Montelukast Sodium (Singulair -) 10 mg PO DAILY [facility] Last Admin: 03/29/19 09:24 Dose: 10 mg Oxycodone HCl (Roxicodone -) 10 mg PO BID [facility] Last Admin: 03/29/19 09:23 Dose: 10 mg Pancrelipase (Creon Dr 36,000 Units Capsule) 1 cap PO TIDCM [facility] Last Admin: 03/29/19 12:40 Dose: 1 cap Pantoprazole Sodium (Protonix -) 40 mg PO DAILY [facility] Last Admin: 03/29/19 09:24 Dose: 40 mg Polyethylene Glycol (Miralax (For Daily Use) -) 17 gm PO BID [facility] Last Admin: 03/29/19 09:26 Dose: 17 gm Prednisone (Deltasone -) 20 mg PO DAILY [facility] Last Admin: 03/29/19 09:25 Dose: 20 mg Rosuvastatin Calcium (Crestor -) 20 mg PO HS [facility] Last Admin: 03/28/19 22:01 Dose: 20 mg Senna/Docusate Sodium (Pericolace -) 1 tablet PO DAILY [facility] Last Admin: 03/29/19 09:26 Dose: 1 tablet Tamsulosin HCl (Flomax -) 0.4 mg PO DAILY@0830 [facility] Last Admin: 03/29/19 08:32 Dose: 0.4 mg Tapentadol (Nucynta Er -) 150 mg PO BID [facility] Last Admin: 03/29/19 09:25 Dose: 150 mg Tiotropium [place] (Spiriva Respimat) 2 puff IH DAILY [facility] Last Admin: 03/29/19 10:00 Dose: 2 puff Torsemide (Demadex -) 20 mg PO DAILY [facility] Last Admin: 03/29/19 09:25 Dose: 20 mg 63 year old gentleman with history of CKD/LOVE, hypertension, DM, hyperlipidemia , GRACIE s/p trach, CAD s/p CABG, CHF with diastolic dysfunction who presented with chest pain and new onset Afib and noted to have LOVE during hospital course. 1. Acute kidney injury 2. CKD 3. CHF 4. Chest pain r/o ACS 5. New Onset Afib Renal function improving Suspected LOVE may be due to renal hypoprofusion in setting of diuretics/ACEi and new onset afibb Urine studies show low FeUrea consistent with hypoprofusion with preserved tubular function Renal US showed no obstruction Continue to hold ACEi at this time until renal function returns to baseline would benefit from renal artery doppler as an outpatient to r.o TERRANCE Continue Torsemide 20mg Daily, weights stable Trend renal function and electrolytes stable for discharge with close outpatient monitoring of renal function Az Link DO
--- NOTE | 2019-03-29 17:03 | PN ---
Progress Note, Physician History of Present Illness: events noted chart reviewed Alert awake oriented Received a diluted Feels better - Current Medication List Current Medications: Active Medications Acetaminophen (Tylenol -) 325 mg PO BID [facility] Last Admin: 03/29/19 09:24 Dose: 325 mg Al Hydroxide/Mg Hydroxide (Mylanta Suspension -) 30 ml PO Q6H PRN PRN Reason: DYSPEPSIA Albuterol Sulfate (Ventolin 0.083% Nebulizer Soln -) 1 amp NEB Q8H PRN PRN Reason: WHEEZING Last Admin: 03/24/19 17:51 Dose: 1 amp Amlodipine Besylate (Norvasc -) 10 mg PO DAILY [facility] Last Admin: 03/29/19 09:24 Dose: 10 mg Apixaban (Eliquis -) 2.5 mg PO BID [facility] Last Admin: 03/29/19 09:25 Dose: 2.5 mg Arformoterol Tartrate (Brovana (Restricted To Pulmonology/Resp) -) 1 amp NEB RBID [facility] Last Admin: 03/29/19 09:24 Dose: 1 amp Aspirin (Ecotrin -) 81 mg PO DAILY [facility] Last Admin: 03/29/19 09:24 Dose: 81 mg Chlorthalidone (Hygroton -) 25 mg PO DAILY [facility] Last Admin: 03/29/19 09:27 Dose: 25 mg Diazepam (Valium -) 5 mg PO Q8H PRN PRN Reason: ANXIETY Last Admin: 03/26/19 20:26 Dose: 5 mg Diltiazem HCl (Cardizem Cd -) 120 mg PO DAILY [facility] Last Admin: 03/29/19 09:23 Dose: 120 mg Duloxetine HCl (Cymbalta -) 30 mg PO DAILY [facility] Last Admin: 03/29/19 09:24 Dose: 30 mg Finasteride (Proscar -) 5 mg PO DAILY [facility] Last Admin: 03/29/19 09:25 Dose: 5 mg Gabapentin (Neurontin -) 800 mg PO TID [facility] Last Admin: 03/29/19 14:42 Dose: 800 mg Hydralazine HCl (Apresoline -) 25 mg PO BID [facility] Last Admin: 03/29/19 09:25 Dose: 25 mg Hydromorphone HCl (Dilaudid -) 4 mg PO Q4H PRN PRN Reason: PAIN LEVEL 6-10 Last Admin: 03/29/19 06:01 Dose: 4 mg Insulin Aspart (Novolog Mix 70/30 Vial) 25 units SQ BIDAC [facility] Last Admin: 03/29/19 06:04 Dose: 25 units Insulin Aspart (Novolog Vial Sliding Scale -) 1 vial SQ ACHS [facility]; Protocol Last Admin: 03/29/19 12:40 Dose: 10 units Insulin Detemir (Levemir Vial) 50 units SQ AM [facility] Last Admin: 03/29/19 06:03 Dose: 50 units Isosorbide Mononitrate (Imdur -) 30 mg PO DAILY [facility] Last Admin: 03/29/19 09:25 Dose: 30 mg Lidocaine (Lidoderm Patch -) 1 patch TP DAILY [facility] Last Admin: 03/29/19 09:26 Dose: 1 patch Miscellaneous (Lidoderm Patch Removal) 1 each MC DAILY@2200 [facility] Last Admin: 03/28/19 22:02 Dose: 1 each Montelukast Sodium (Singulair -) 10 mg PO DAILY [facility] Last Admin: 03/29/19 09:24 Dose: 10 mg Oxycodone HCl (Roxicodone -) 10 mg PO BID [facility] Last Admin: 03/29/19 09:23 Dose: 10 mg Pancrelipase (Creon Dr 36,000 Units Capsule) 1 cap PO TIDCM [facility] Last Admin: 03/29/19 12:40 Dose: 1 cap Pantoprazole Sodium (Protonix -) 40 mg PO DAILY [facility] Last Admin: 03/29/19 09:24 Dose: 40 mg Polyethylene Glycol (Miralax (For Daily Use) -) 17 gm PO BID [facility] Last Admin: 03/29/19 09:26 Dose: 17 gm Prednisone (Deltasone -) 20 mg PO DAILY [facility] Last Admin: 03/29/19 09:25 Dose: 20 mg Rosuvastatin Calcium (Crestor -) 20 mg PO HS [facility] Last Admin: 03/28/19 22:01 Dose: 20 mg Senna/Docusate Sodium (Pericolace -) 1 tablet PO DAILY [facility] Last Admin: 03/29/19 09:26 Dose: 1 tablet Tamsulosin HCl (Flomax -) 0.4 mg PO DAILY@0830 [facility] Last Admin: 03/29/19 08:32 Dose: 0.4 mg Tapentadol (Nucynta Er -) 150 mg PO BID [facility] Last Admin: 03/29/19 09:25 Dose: 150 mg Tiotropium [place] (Spiriva Respimat) 2 puff IH DAILY [facility] Last Admin: 03/29/19 10:00 Dose: 2 puff Torsemide (Demadex -) 20 mg PO DAILY [facility] Last Admin: 03/29/19 09:25 Dose: 20 mg - Objective Vital Signs: Vital Signs Temperature 98.1 F 03/29/19 10:00 Pulse Rate 98 H 03/29/19 10:00 Respiratory Rate 22 H 03/29/19 10:00 Blood Pressure 180/99 H 03/29/19 10:00 O2 Sat by Pulse Oximetry (%) 98 03/29/19 09:00 Constitutional: Yes: Well Nourished Eyes: Yes: WNL HENT: Yes: WNL Neurological: Yes: Alert, Oriented, Babinski positive ...Motor Strength: WNL Labs: CBC, BMP 03/28/19 05:20 03/29/19 05:39 INR, PTT INR 1.05 (0.83-1.09) 03/22/19 11:00 Problem List - Problems (1) Chronic pain Assessment/Plan: 1. Narcotic counseling 2. Tight blood sugar control 3. Fall precautions 4. Continue Cymbalta Code(s): G89.29 - OTHER CHRONIC PAIN
[2019-03-29] MEDS ORDERED: HYDROmorphone HCl 2 MG/ML VIAL IM ONE (20:15)
[2019-03-29] MEDS: ROSUVASTATIN CA 20 MG TABLET (FP) PO SCH (21:42)
[2019-03-29] MEDS: LIDOCAINE PATCH REMOVAL MC SCH (21:46)
[2019-03-30] MEDS: GABAPENTIN 400 MG CAPSULE (FP) PO SCH ×2 (06:46→13:34)
[2019-03-30] MEDS: diazePAM 5 MG TABLET PO PRN (06:46)
[2019-03-30] MEDS: INSULIN (NOVOLOG MIX 70/30) 100 UNITS/ML MDV SQ SCH ×2 (06:48→18:10)
[2019-03-30] MEDS: INSULIN (LEVEMIR) 100 UNITS/ML UNITS SQ SCH (06:49)
[2019-03-30] MEDS: INSULIN SLIDING SCALE (NOVOLOG) 1 VIAL SQ SCH ×3 (06:50→18:10)
[2019-03-30] MEDS ORDERED: PT OWN MED DRAWER 7, Y5N ONE ×2 (08:32→10:54)
[2019-03-30] MEDS: ARFORMOTEROL TARTRATE 15 MCG/2 ML VIAL NEB SCH (08:48)
[2019-03-30] MEDS: TIOTROPIUM BROMIDE 2.5 MCG (SPIRIVA) RESPIMAT INHALER IH SCH (10:00)
[2019-03-30] MEDS: LIDOCAINE 5% TOPICAL PATCH TP SCH (10:10)
[2019-03-30] MEDS: PANTOPRAZOLE 40 MG TABLET (FP) PO SCH (10:13)
[2019-03-30] MEDS: DULoxetine HCL 30 MG CAPSULE.DR PO SCH (10:13)
[2019-03-30] MEDS: MONTELUKAST NA 10 MG TABLET PO SCH (10:13)
[2019-03-30] MEDS: FINASTERIDE 5 MG TABLET (FP) PO SCH (10:13)
[2019-03-30] MEDS: hydrALAZINE HCL 25 MG TABLET (FP) PO SCH (10:13)
[2019-03-30] MEDS: ASPIRIN COATED 81 MG TABLET.EC PO SCH (10:13)
[2019-03-30] MEDS: predniSONE 20 MG TABLET (UD) PO SCH (10:14)
[2019-03-30] MEDS: ISOSORBIDE MONONITRATE 30 MG TAB.SR.24H (FP) PO SCH (10:15)
[2019-03-30] MEDS: amLODIPine BESYLATE 10 MG TABLET (FP) PO SCH (10:15)
[2019-03-30] MEDS: APIXABAN 2.5 MG TABLET PO SCH (10:15)
[2019-03-30] MEDS: oxyCODONE HCL 5 MG TABLET PO SCH (10:15)
[2019-03-30] MEDS: TORSEMIDE 20 MG TABLET (FP) PO SCH (10:16)
[2019-03-30] MEDS: ACETAMINOPHEN 325 MG TABLET (FP) PO SCH (10:16)
[2019-03-30] MEDS: TAPENTADOL HCL 50 MG TAB.ER.12H PO SCH (10:17)
[2019-03-30] MEDS: CHLORTHALIDONE 25 MG TABLET PO SCH (10:18)
[2019-03-30] MEDS: TAMSULOSIN HCL 0.4 MG CAP PO SCH (10:19)
[2019-03-30] MEDS: LIPASE/PROTEASE/AMYLASE 36,000 UNIT CAPSULE PO SCH ×3 (10:19→18:09)
[2019-03-30] MEDS: POLYETHYLENE GLYCOL 3350 119 GM BTL PO SCH (10:20)
[2019-03-30] MEDS: SENNOSIDES/DOCUSATE COMBO (SENNA PLUS) TABLET (UD) PO SCH (10:21)
--- NOTE | 2019-03-30 11:00 | PN ---
Progress Note, Physician History of Present Illness: pulmonary alert,comfortable,-sob,+ occ palpitations - Current Medication List Current Medications: Active Medications Acetaminophen (Tylenol -) 325 mg PO BID [facility] Last Admin: 03/30/19 10:16 Dose: 325 mg Al Hydroxide/Mg Hydroxide (Mylanta Suspension -) 30 ml PO Q6H PRN PRN Reason: DYSPEPSIA Albuterol Sulfate (Ventolin 0.083% Nebulizer Soln -) 1 amp NEB Q8H PRN PRN Reason: WHEEZING Last Admin: 03/24/19 17:51 Dose: 1 amp Amlodipine Besylate (Norvasc -) 10 mg PO DAILY [facility] Last Admin: 03/30/19 10:15 Dose: 10 mg Apixaban (Eliquis -) 2.5 mg PO BID [facility] Last Admin: 03/30/19 10:15 Dose: 2.5 mg Arformoterol Tartrate (Brovana (Restricted To Pulmonology/Resp) -) 1 amp NEB RBID [facility] Last Admin: 03/30/19 08:48 Dose: 1 amp Aspirin (Ecotrin -) 81 mg PO DAILY [facility] Last Admin: 03/30/19 10:13 Dose: 81 mg Chlorthalidone (Hygroton -) 25 mg PO DAILY [facility] Last Admin: 03/30/19 10:18 Dose: 25 mg Diazepam (Valium -) 5 mg PO Q8H PRN PRN Reason: ANXIETY Last Admin: 03/30/19 06:46 Dose: 5 mg Diltiazem HCl (Cardizem Cd -) 120 mg PO DAILY [facility] Last Admin: 03/30/19 10:15 Dose: 120 mg Duloxetine HCl (Cymbalta -) 30 mg PO DAILY [facility] Last Admin: 03/30/19 10:13 Dose: 30 mg Finasteride (Proscar -) 5 mg PO DAILY [facility] Last Admin: 03/30/19 10:13 Dose: 5 mg Gabapentin (Neurontin -) 800 mg PO TID [facility] Last Admin: 03/30/19 06:46 Dose: 800 mg Hydralazine HCl (Apresoline -) 25 mg PO BID [facility] Last Admin: 03/30/19 10:13 Dose: 25 mg Hydromorphone HCl (Dilaudid -) 4 mg PO Q4H PRN PRN Reason: PAIN LEVEL 6-10 Last Admin: 03/30/19 04:05 Dose: 4 mg Insulin Aspart (Novolog Mix 70/30 Vial) 25 units SQ BIDAC [facility] Last Admin: 03/30/19 06:48 Dose: 25 units Insulin Aspart (Novolog Vial Sliding Scale -) 1 vial SQ ACHS [facility]; Protocol Last Admin: 03/30/19 06:50 Dose: 9 units Insulin Detemir (Levemir Vial) 50 units SQ AM [facility] Last Admin: 03/30/19 06:49 Dose: 50 units Isosorbide Mononitrate (Imdur -) 30 mg PO DAILY [facility] Last Admin: 03/30/19 10:15 Dose: 30 mg Lidocaine (Lidoderm Patch -) 1 patch TP DAILY [facility] Last Admin: 03/30/19 10:10 Dose: 1 patch Miscellaneous (Lidoderm Patch Removal) 1 each MC DAILY@2200 [facility] Last Admin: 03/29/19 21:46 Dose: 1 each Montelukast Sodium (Singulair -) 10 mg PO DAILY [facility] Last Admin: 03/30/19 10:13 Dose: 10 mg Oxycodone HCl (Roxicodone -) 10 mg PO BID [facility] Last Admin: 03/30/19 10:15 Dose: 10 mg Pancrelipase (Creon Dr 36,000 Units Capsule) 1 cap PO TIDCM [facility] Last Admin: 03/30/19 10:19 Dose: 1 cap Pantoprazole Sodium (Protonix -) 40 mg PO DAILY [facility] Last Admin: 03/30/19 10:13 Dose: 40 mg Polyethylene Glycol (Miralax (For Daily Use) -) 17 gm PO BID [facility] Last Admin: 03/30/19 10:20 Dose: 17 gm Prednisone (Deltasone -) 20 mg PO DAILY [facility] Last Admin: 03/30/19 10:14 Dose: 20 mg Rosuvastatin Calcium (Crestor -) 20 mg PO HS [facility] Last Admin: 03/29/19 21:42 Dose: 20 mg Senna/Docusate Sodium (Pericolace -) 1 tablet PO DAILY [facility] Last Admin: 03/30/19 10:21 Dose: 1 tablet Tamsulosin HCl (Flomax -) 0.4 mg PO DAILY@0830 [facility] Last Admin: 03/30/19 10:19 Dose: 0.4 mg Tapentadol (Nucynta Er -) 150 mg PO BID [facility] Last Admin: 03/30/19 10:17 Dose: 150 mg Tiotropium [place] (Spiriva Respimat) 2 puff IH DAILY [facility] Last Admin: 03/29/19 10:00 Dose: 2 puff Torsemide (Demadex -) 20 mg PO DAILY [facility] Last Admin: 03/30/19 10:16 Dose: 20 mg - Objective Vital Signs: Vital Signs Temperature 98.2 F 03/30/19 06:00 Pulse Rate 56 L 03/30/19 06:00 Respiratory Rate 18 03/30/19 06:00 Blood Pressure 146/77 03/30/19 06:00 O2 Sat by Pulse Oximetry (%) 98 03/29/19 21:00 Constitutional: Yes: Well Nourished, Calm Eyes: Yes: WNL HENT: Yes: WNL Neck: Yes: Supple Cardiovascular: Yes: Pulse Irregular, S1, S2 Respiratory: Yes: CTA Bilaterally Gastrointestinal: Yes: Normal Bowel Sounds, Soft, Abdomen, Obese Extremities: Yes: WNL Edema: Yes Edema: LLE: 3+, RLE: 3+ Labs: Assessment/Plan Problem List - Problems (1) Atrial fibrillation with RVR Code(s): I48.91 - UNSPECIFIED ATRIAL FIBRILLATION (2) Chest pain Code(s): R07.9 - CHEST PAIN, UNSPECIFIED Qualifiers: Chest pain type: other chest pain Qualified Code(s): R07.89 - Other chest pain; R07.8 - Other chest pain (3) HTN (hypertension) Code(s): I10 - ESSENTIAL (PRIMARY) HYPERTENSION (4) Opiate dependence Code(s): F11.20 - OPIOID DEPENDENCE, UNCOMPLICATED (5) COPD (chronic obstructive pulmonary disease) Code(s): J44.9 - CHRONIC OBSTRUCTIVE PULMONARY DISEASE, UNSPECIFIED (6) Coronary artery disease Code(s): I25.10 - ATHSCL HEART DISEASE OF [place] CORONARY ARTERY W/O ANG PCTRS (7) Diabetes mellitus Code(s): E11.9 - TYPE 2 DIABETES MELLITUS WITHOUT COMPLICATIONS Qualifiers: Diabetes mellitus type: type 2 (8) GRACIE (obstructive sleep apnea) Code(s): G47.33 - OBSTRUCTIVE SLEEP APNEA (ADULT) (PEDIATRIC) Assessment/Plan Atrial Fibrillation with RVR improved LV Diastolic Dysfunction CAD s/p CABG COPD/asthma Opiate Dependence Obstructive Sleep Apnea s/p Tracheostomy Chronic Pancreatitis HTN Hyperlipidemia CKD - rate/rhythm control as per cardiology - anticoagulation - prednisone taper - inhaled bronchodilators - O2 to keep SpO2 >90% - uncap tracheostomy while sleeping - diuretics DR VANESSA
[2019-03-30] MEDS ORDERED: predniSONE 5 MG TABLET (UD) PO SCH (11:15)
[2019-03-30 11:27] VITALS: TEMP 98
--- NOTE | 2019-03-30 13:28 | PN ---
Progress Note, Physician Chief Complaint: patient seen and examined awake alert - Current Medication List Current Medications: Active Medications Acetaminophen (Tylenol -) 325 mg PO BID [facility] Last Admin: 03/30/19 10:16 Dose: 325 mg Al Hydroxide/Mg Hydroxide (Mylanta Suspension -) 30 ml PO Q6H PRN PRN Reason: DYSPEPSIA Albuterol Sulfate (Ventolin 0.083% Nebulizer Soln -) 1 amp NEB Q8H PRN PRN Reason: WHEEZING Last Admin: 03/24/19 17:51 Dose: 1 amp Amlodipine Besylate (Norvasc -) 10 mg PO DAILY [facility] Last Admin: 03/30/19 10:15 Dose: 10 mg Apixaban (Eliquis -) 2.5 mg PO BID [facility] Last Admin: 03/30/19 10:15 Dose: 2.5 mg Arformoterol Tartrate (Brovana (Restricted To Pulmonology/Resp) -) 1 amp NEB RBID [facility] Last Admin: 03/30/19 08:48 Dose: 1 amp Aspirin (Ecotrin -) 81 mg PO DAILY [facility] Last Admin: 03/30/19 10:13 Dose: 81 mg Chlorthalidone (Hygroton -) 25 mg PO DAILY [facility] Last Admin: 03/30/19 10:18 Dose: 25 mg Diazepam (Valium -) 5 mg PO Q8H PRN PRN Reason: ANXIETY Last Admin: 03/30/19 06:46 Dose: 5 mg Diltiazem HCl (Cardizem Cd -) 120 mg PO DAILY [facility] Last Admin: 03/30/19 10:15 Dose: 120 mg Duloxetine HCl (Cymbalta -) 30 mg PO DAILY [facility] Last Admin: 03/30/19 10:13 Dose: 30 mg Finasteride (Proscar -) 5 mg PO DAILY [facility] Last Admin: 03/30/19 10:13 Dose: 5 mg Gabapentin (Neurontin -) 800 mg PO TID [facility] Last Admin: 03/30/19 06:46 Dose: 800 mg Hydralazine HCl (Apresoline -) 25 mg PO BID [facility] Last Admin: 03/30/19 10:13 Dose: 25 mg Hydromorphone HCl (Dilaudid -) 4 mg PO Q4H PRN PRN Reason: PAIN LEVEL 6-10 Last Admin: 03/30/19 04:05 Dose: 4 mg Insulin Aspart (Novolog Mix 70/30 Vial) 25 units SQ BIDAC [facility] Last Admin: 03/30/19 06:48 Dose: 25 units Insulin Aspart (Novolog Vial Sliding Scale -) 1 vial SQ ACHS [facility]; Protocol Last Admin: 03/30/19 12:27 Dose: 7 units Insulin Detemir (Levemir Vial) 50 units SQ AM [facility] Last Admin: 03/30/19 06:49 Dose: 50 units Isosorbide Mononitrate (Imdur -) 30 mg PO DAILY [facility] Last Admin: 03/30/19 10:15 Dose: 30 mg Lidocaine (Lidoderm Patch -) 1 patch TP DAILY [facility] Last Admin: 03/30/19 10:10 Dose: 1 patch Miscellaneous (Lidoderm Patch Removal) 1 each MC DAILY@2200 [facility] Last Admin: 03/29/19 21:46 Dose: 1 each Montelukast Sodium (Singulair -) 10 mg PO DAILY [facility] Last Admin: 03/30/19 10:13 Dose: 10 mg Oxycodone HCl (Roxicodone -) 10 mg PO BID [facility] Last Admin: 03/30/19 10:15 Dose: 10 mg Pancrelipase (Creon Dr 36,000 Units Capsule) 1 cap PO TIDCM [facility] Last Admin: 03/30/19 10:19 Dose: 1 cap Pantoprazole Sodium (Protonix -) 40 mg PO DAILY [facility] Last Admin: 03/30/19 10:13 Dose: 40 mg Polyethylene Glycol (Miralax (For Daily Use) -) 17 gm PO BID [facility] Last Admin: 03/30/19 10:20 Dose: 17 gm Prednisone (Deltasone -) 15 mg PO DAILY [facility] Rosuvastatin Calcium (Crestor -) 20 mg PO HS [facility] Last Admin: 03/29/19 21:42 Dose: 20 mg Senna/Docusate Sodium (Pericolace -) 1 tablet PO DAILY [facility] Last Admin: 03/30/19 10:21 Dose: 1 tablet Tamsulosin HCl (Flomax -) 0.4 mg PO DAILY@0830 [facility] Last Admin: 03/30/19 10:19 Dose: 0.4 mg Tapentadol (Nucynta Er -) 150 mg PO BID [facility] Last Admin: 03/30/19 10:17 Dose: 150 mg Tiotropium [place] (Spiriva Respimat) 2 puff IH DAILY [facility] Last Admin: 03/29/19 10:00 Dose: 2 puff Torsemide (Demadex -) 20 mg PO DAILY [facility] Last Admin: 03/30/19 10:16 Dose: 20 mg - Objective Vital Signs: Vital Signs Temperature 98.0 F 03/30/19 10:00 Pulse Rate 87 03/30/19 10:00 Respiratory Rate 22 H 03/30/19 10:00 Blood Pressure 100/79 03/30/19 10:00 O2 Sat by Pulse Oximetry (%) 98 03/29/19 21:00 Constitutional: Yes: Calm Cardiovascular: Yes: Pulse Irregular, S1, S2 Respiratory: Yes: Diminished Gastrointestinal: Yes: Normal Bowel Sounds, Soft Edema: Yes Neurological: Yes: Alert, Oriented Labs: CBC, BMP 03/28/19 05:20 03/29/19 05:39 INR, PTT INR 1.05 (0.83-1.09) 03/22/19 11:00 Problem List - Problems (1) Atrial fibrillation with RVR Assessment/Plan: eliquis and diltiazem 120mg HR controlled cardiology on board telemetry Code(s): I48.91 - UNSPECIFIED ATRIAL FIBRILLATION (2) COPD (chronic obstructive pulmonary disease) Assessment/Plan: bronchodilators and prednisone 20mg daily Code(s): J44.9 - CHRONIC OBSTRUCTIVE PULMONARY DISEASE, UNSPECIFIED (3) BPH (benign prostatic hyperplasia) Assessment/Plan: finasteride Code(s): N40.0 - BENIGN PROSTATIC HYPERPLASIA WITHOUT LOWER URINRY TRACT SYMP (4) HTN (hypertension) Assessment/Plan: hydralazine and norvasc Code(s): I10 - ESSENTIAL (PRIMARY) HYPERTENSION (5) Hyperlipidemia Assessment/Plan: statin Code(s): E78.5 - HYPERLIPIDEMIA, UNSPECIFIED (6) Chronic pain Assessment/Plan: dilaudid oral not iv gabapentin Code(s): G89.29 - OTHER CHRONIC PAIN (7) Chronic pancreatitis Assessment/Plan: pancreatic enzymes Code(s): K86.1 - OTHER CHRONIC PANCREATITIS (8) Diabetes mellitus Assessment/Plan: seen by endocrine and insulin adjusted Code(s): E11.9 - TYPE 2 DIABETES MELLITUS WITHOUT COMPLICATIONS Qualifiers: Diabetes mellitus type: type 2 Assessment/Plan dc home in AM
[2019-03-30 15:20] VITALS: BP 119/67; PULSE 56
--- NOTE | 2019-03-30 15:36 | PN ---
Progress Note (short form) - Note Progress Note: Renal follow up for LOVE on CKD Seen and examined at the bedside awake and alert offers no acute complaints Vital Signs Temperature 98.0 F 03/30/19 14:00 Pulse Rate 56 L 03/30/19 14:00 Respiratory Rate 22 H 03/30/19 10:00 Blood Pressure 119/67 03/30/19 14:00 O2 Sat by Pulse Oximetry (%) 98 03/29/19 21:00 Intake & Output 03/27/19 03/28/19 03/29/19 03/30/19 23:59 23:59 23:59 23:59 Intake Total 2118 809 0209 420 Output Total 250 300 600 Balance 1300 990 810 -180 Weight 128.639 kg 129.727 kg 128.548 kg 129.138 kg NAD awake and alert neck supple, no JVD RRR, no M/R CTA soft obese, NT/ND trace LE edema CBC, BMP 03/28/19 05:20 03/29/19 05:39 Current Medications Acetaminophen (Tylenol -) 325 mg PO BID [facility] Last Admin: 03/30/19 10:16 Dose: 325 mg Al Hydroxide/Mg Hydroxide (Mylanta Suspension -) 30 ml PO Q6H PRN PRN Reason: DYSPEPSIA Albuterol Sulfate (Ventolin 0.083% Nebulizer Soln -) 1 amp NEB Q8H PRN PRN Reason: WHEEZING Last Admin: 03/24/19 17:51 Dose: 1 amp Amlodipine Besylate (Norvasc -) 10 mg PO DAILY [facility] Last Admin: 03/30/19 10:15 Dose: 10 mg Apixaban (Eliquis -) 2.5 mg PO BID [facility] Last Admin: 03/30/19 10:15 Dose: 2.5 mg Arformoterol Tartrate (Brovana (Restricted To Pulmonology/Resp) -) 1 amp NEB RBID [facility] Last Admin: 03/30/19 08:48 Dose: 1 amp Aspirin (Ecotrin -) 81 mg PO DAILY [facility] Last Admin: 03/30/19 10:13 Dose: 81 mg Chlorthalidone (Hygroton -) 25 mg PO DAILY [facility] Last Admin: 03/30/19 10:18 Dose: 25 mg Diazepam (Valium -) 5 mg PO Q8H PRN PRN Reason: ANXIETY Last Admin: 03/30/19 06:46 Dose: 5 mg Diltiazem HCl (Cardizem Cd -) 120 mg PO DAILY [facility] Last Admin: 03/30/19 10:15 Dose: 120 mg Duloxetine HCl (Cymbalta -) 30 mg PO DAILY [facility] Last Admin: 03/30/19 10:13 Dose: 30 mg Finasteride (Proscar -) 5 mg PO DAILY [facility] Last Admin: 03/30/19 10:13 Dose: 5 mg Gabapentin (Neurontin -) 800 mg PO TID [facility] Last Admin: 03/30/19 13:34 Dose: 800 mg Hydralazine HCl (Apresoline -) 25 mg PO BID [facility] Last Admin: 03/30/19 10:13 Dose: 25 mg Hydromorphone HCl (Dilaudid -) 4 mg PO Q4H PRN PRN Reason: PAIN LEVEL 6-10 Last Admin: 03/30/19 04:05 Dose: 4 mg Insulin Aspart (Novolog Mix 70/30 Vial) 25 units SQ BIDAC [facility] Last Admin: 03/30/19 06:48 Dose: 25 units Insulin Aspart (Novolog Vial Sliding Scale -) 1 vial SQ [facility]; Protocol Last Admin: 03/30/19 12:27 Dose: 7 units Insulin Detemir (Levemir Vial) 50 units SQ AM [facility] Last Admin: 03/30/19 06:49 Dose: 50 units Isosorbide Mononitrate (Imdur -) 30 mg PO DAILY [facility] Last Admin: 03/30/19 10:15 Dose: 30 mg Lidocaine (Lidoderm Patch -) 1 patch TP DAILY [facility] Last Admin: 03/30/19 10:10 Dose: 1 patch Miscellaneous (Lidoderm Patch Removal) 1 each MC DAILY@2200 [facility] Last Admin: 03/29/19 21:46 Dose: 1 each Montelukast Sodium (Singulair -) 10 mg PO DAILY [facility] Last Admin: 03/30/19 10:13 Dose: 10 mg Oxycodone HCl (Roxicodone -) 10 mg PO BID [facility] Last Admin: 03/30/19 10:15 Dose: 10 mg Pancrelipase (Creon Dr 36,000 Units Capsule) 1 cap PO TIDCM [facility] Last Admin: 03/30/19 13:34 Dose: 1 cap Pantoprazole Sodium (Protonix -) 40 mg PO DAILY [facility] Last Admin: 03/30/19 10:13 Dose: 40 mg Polyethylene Glycol (Miralax (For Daily Use) -) 17 gm PO BID [facility] Last Admin: 03/30/19 10:20 Dose: 17 gm Prednisone (Deltasone -) 15 mg PO DAILY [facility] Last Admin: 03/30/19 13:34 Dose: 15 mg Rosuvastatin Calcium (Crestor -) 20 mg PO HS [facility] Last Admin: 03/29/19 21:42 Dose: 20 mg Senna/Docusate Sodium (Pericolace -) 1 tablet PO DAILY [facility] Last Admin: 03/30/19 10:21 Dose: 1 tablet Tamsulosin HCl (Flomax -) 0.4 mg PO DAILY@0830 [facility] Last Admin: 03/30/19 10:19 Dose: 0.4 mg Tapentadol (Nucynta Er -) 150 mg PO BID [facility] Last Admin: 03/30/19 10:17 Dose: 150 mg Tiotropium [place] (Spiriva Respimat) 2 puff IH DAILY [facility] Last Admin: 03/30/19 10:00 Dose: 2 puff Torsemide (Demadex -) 20 mg PO DAILY [facility] Last Admin: 03/30/19 10:16 Dose: 20 mg 63 year old gentleman with history of CKD/LOVE, hypertension, DM, hyperlipidemia , GRACIE s/p trach, CAD s/p CABG, CHF with diastolic dysfunction who presented with chest pain and new onset Afib and noted to have LOVE during hospital course. 1. Acute kidney injury 2. CKD 3. CHF 4. Chest pain r/o ACS 5. New Onset Afib Renal function improving as of yesterday, no new labs today Clinically stable Suspected LOVE may be due to renal hypoprofusion in setting of diuretics/ACEi and new onset afibb Urine studies show low FeUrea consistent with hypoprofusion with preserved tubular function Renal US showed no obstruction Continue to hold ACEi at this time until renal function returns to baseline would benefit from renal artery doppler as an outpatient to r.o TERRANCE Continue Torsemide 20mg Daily, weights stable Trend renal function and electrolytes stable for discharge with close outpatient monitoring of renal function Az Link DO
[2019-03-30] MEDS ORDERED: INSULIN (NOVOLOG) ASPART 100 UNITS/ML 10ML VIAL ONE (18:06)
== END 2019-03-30 18:32 | disposition home or self-care (01) | DRG 309 ==
LOC: JER 10:13 → JERBED 12:41 → J4W 18:39
PROVIDERS: ADMIT Family Medicine; ATTEND Family Medicine
DX: I48.91 Unspecified atrial fibrillation (principal); M62.82 Rhabdomyolysis; I50.32 Chronic diastolic (congestive) heart failure; F11.20 Opioid dependence, uncomplicated; K86.1 Other chronic pancreatitis; N17.9 Acute kidney failure, unspecified; I31.3 Pericardial effusion (noninflammatory); I13.0 Hypertensive heart and chronic kidney disease with heart failure and stage 1 through stage 4 chronic kidney disease, or unspecified chronic kidney disease; I48.92 Unspecified atrial flutter; M54.16 Radiculopathy, lumbar region; I25.10 Atherosclerotic heart disease of native coronary artery without angina pectoris; E11.22 Type 2 diabetes mellitus with diabetic chronic kidney disease; N18.9 Chronic kidney disease, unspecified; E11.42 Type 2 diabetes mellitus with diabetic polyneuropathy; I27.20 Pulmonary hypertension, unspecified; J44.9 Chronic obstructive pulmonary disease, unspecified; J45.909 Unspecified asthma, uncomplicated; N40.0 Benign prostatic hyperplasia without lower urinary tract symptoms; I25.2 Old myocardial infarction; K59.09 Other constipation; M79.10 Myalgia, unspecified site; G47.33 Obstructive sleep apnea (adult) (pediatric); F41.8 Other specified anxiety disorders; M54.5 Low back pain; G89.4 Chronic pain syndrome; E66.8 Other obesity; E78.5 Hyperlipidemia, unspecified; M54.12 Radiculopathy, cervical region; R94.5 Abnormal results of liver function studies; R60.0 Localized edema; Z95.5 Presence of coronary angioplasty implant and graft; Z95.1 Presence of aortocoronary bypass graft; Z93.0 Tracheostomy status; Z68.37 Body mass index [BMI] 37.0-37.9, adult; Z79.4 Long term (current) use of insulin
CPT/HCPCS: 36415; 71045-TC-FY; 76775-TC; 80048; 80053; 80061; 82550; 82553; 82565; 82570; 82947; 82962; 83036; 83690; 83721; 83735; 83880; 84100; 84156; 84436; 84443; 84484; 84540; 85025; 85610; 93005; 93010; 93306-TC; 94640; 99285-25